=== PATIENT | female | born 1990 ===

== ENCOUNTER 2020-04-04 17:49 | Emergency (ER) | payer OTHER, SELFPAY ==
--- NOTE | 2020-04-04 | XR_ITS ---
EXAMINATION: XR ANKLE, LEFT CLINICAL INFORMATION: Left ankle pain and swelling. COMPARISON: None TECHNIQUE: AP, lateral, and mortise views of the left ankle. FINDINGS: There is moderate lateral malleolar soft tissue swelling. No visible acute fracture, dislocation or subluxation seen. The ankle mortise and subtalar joints are normal. IMPRESSION: Moderate lateral malleolar soft tissue swelling. No visible acute fracture or dislocation seen.
[2020-04-04 18:46] VITALS: BP 170/78; PULSE 79; RESP 18; TEMP 37.2; O2SAT 99; BMI 42.9
--- NOTE | 2020-04-04 19:42 | PC.NURSE ---
Pt refusing ice pack but put right lower leg on pillow. Pt awaiting for further orders.
--- NOTE | 2020-04-04 20:11 | ED.LOWEXIN ---
HPI - Extremity Injury (Lower) General Chief Complaint: Extremity Injury, Lower Stated Complaint: foot inj Time Seen by Provider: 04/04/20 19:45 Source: patient Mode of arrival: ambulatory Limitations: no limitations History of Present Illness HPI Narrative: patient comes in complaining of left ankle sprain. Patient states happened at [facility] while she was walking with her child. Patient decided to come here for evaluation and treatment. MD complaint: ankle injury Onset (ago): hour(s) Related Data Previous Rx's Medication Instructions Recorded ibuprofen 600 mg PO Q8H PRN #10 tab 04/04/20 Allergies Allergy/AdvReac Type Severity Reaction Status Date / Time amoxicillin [AMOXICILLIN] Allergy Intermediate NAUSEA & Unverified 03/03/20 16:45 VOMITING, stomach pain, vomiting, stomach upset topiramate [From TOPAMAX] Allergy Intermediate TREMORS, Unverified 03/03/20 16:45 nausea and vomiting latex [LATEX] Allergy Mild RASH Unverified 03/03/20 16:45 medroxyprogesterone Allergy Mild RASH Unverified 03/03/20 16:45 [From PROVERA] latex Allergy Unknown rash Uncoded 12/30/19 00:00 Review of Systems Review of Systems: Constitutional : No Weight loss, No Fever, No Chills, No Night Sweats, No Fatigue, No Malaise ENT/Mouth : No Hearing loss, No Ear Pain, No Nasal Congestion, No Sinus Pain, No Hoarseness, No sore throat, No Rhinorrhea, No Swallowing Difficulty Eyes: No Eye Pain, No Swelling, No Redness, No Foreign Body, No Discharge, No Vision Changes Cardiovascular : No Chest Pain, No SOB, No Dyspnea on Exertion, No Orthopnea, No Edema, No Palpitations Respiratory : No Cough, No Sputum, No Wheezing, No Smoke Exposure, No Dyspnea Gastrointestinal : No Nausea, No Vomiting, No Diarrhea, No Constipation, No abdominal Pain, No Hematochezia, No Melena Genitourinary : no irregular bleeding, No Dysuria, No Urinary Frequency, No Hematuria, No Urinary Incontinence, No Urgency, No Flank Pain, No Urinary Flow Changes, No Hesitancy Musculoskeletal : Left ankle pain, No Myalgias, mild ankle Swelling Skin : No Skin Lesions, No rash Neuro : No Weakness, No Numbness, No Paresthesias, No Loss of Consciousness, No Dizziness, No Headache Psych : No Anxiety/Panic, No Depression, No SI/HI/AH/VH, No Social Issues, Heme/Lymph: No Bruising, No Bleeding,No Lymphadenopathy Endocrine : No Polyuria, No Polydipsia, No Temperature Intolerance [facility] Past Medical History Medical History Anxiety Depression Fibromyalgia Gastritis Hyperlipemia Hypertension Migraines Rheumatoid arthritis Social History Social History Alcohol intake: unknown Use of substances other than those prescribed or required for medical reasons: No Advance Directives: No Advance Directives Information Provided: Yes Physical Exam Vital Signs: Vital Signs: Vital Signs Temp Pulse Resp BP Pulse Ox 04/04/20 18:46 99.0 F 79 18 170/78 H 99 Body Mass Index 42.9 Appearance: Alert. Oriented X3. No acute distress. Eyes: Pupils equal, round and reactive to light. ENT: Pharynx normal. Neck: Normal inspection. Neck supple. No lymph nodes noted. No crepitus CVS: Normal heart rate and rhythm. Pulses normal. Normal S1 and S2 Respiratory: No respiratory distress. Breath sounds normal. No Wheezing. No rales Abdomen: Soft and nontender. No rigidity. No distention. good BS x4 Skin: Skin warm and dry. Normal skin color. mild swelling to the lateral aspect of the left ankle, pain to palpation over the lateral malleolus. Patient unable to bear weight Extremities: No lower extremity edema. No lower extremity edema. No Lacerations. No Rash Neuro: Oriented X 3. No motor deficit. No sensory deficit. Moving all extermities. No slurred speech. MDM - Extremity Injury (Lower) MDM Narrative Medical decision making narrative: I discussed imaging with the patient, she does not have a fracture. Patient is unable to bear weight, patient was provided with crutches Differential Diagnosis Differential diagnosis: Likely ankle sprain and strain Imaging Data ankle x-ray: Radiologist's impression: Moderate lateral malleolar soft tissue swelling. No visible acute fracture or dislocation seen. Discharge Plan Discharge Clinical Impression: Ankle sprain and strain Patient Disposition: Home, Self-Care Instructions: Ankle Sprain (ED) Additional Instructions: apply ice to your ankle, make sure that it is not in direct contact with the skin. Apply ice 15 minutes every 2 hours while your awake. Please follow-up with your primary care physician tomorrow. If you have any worsening or new symptoms, please return to the emergency room or call 911 Prescriptions: New ibuprofen 600 mg tablet 600 mg PO Q8H PRN (Reason: pain) Qty: 10 RF: 0
[2020-04-04] MEDS: Ibuprofen 600 MG TABLET PO (20:20)
== END 2020-04-04 20:32 | disposition home or self-care (01) ==
PROVIDERS: Emergency Provider Emergency Medicine; PCP Internal Medicine
DX: S93.402A Sprain of unspecified ligament of left ankle, initial encounter (principal); X50.1XXA Overexertion from prolonged static or awkward postures, initial encounter; Y93.01 Activity, walking, marching and hiking; Y92.239 Unspecified place in hospital as the place of occurrence of the external cause; Y99.9 Unspecified external cause status; I10 Essential (primary) hypertension; Z79.899 Other long term (current) drug therapy
CPT/HCPCS: 73610; 99283

== ENCOUNTER → 2020-04-27 09:18 | Outpatient (BNVA) | payer OTHER, SELFPAY | PROVIDERS: PCP Internal Medicine; Visit Provider Advanced Practice Midwife | DX: N90.7 Vulvar cyst (principal); E66.9 Obesity, unspecified; Z68.41 Body mass index [BMI] 40.0-44.9, adult; G43.909 Migraine, unspecified, not intractable, without status migrainosus; Z30.09 Encounter for other general counseling and advice on contraception | CPT/HCPCS: 99212 ==

== ENCOUNTER → 2020-05-03 08:59 | Outpatient (BNVA) | payer OTHER, SELFPAY | PROVIDERS: PCP Internal Medicine; Visit Provider Physician Assistant | DX: Z76.89 Persons encountering health services in other specified circumstances (principal) ==

== ENCOUNTER → 2020-05-05 07:59 | Outpatient (BNVA) | payer OTHER, SELFPAY | PROVIDERS: Visit Provider Surgery | DX: Z76.89 Persons encountering health services in other specified circumstances (principal) ==

== ENCOUNTER 2020-05-09 13:01 | Outpatient (REF) | payer OTHER, SELFPAY ==
[2020-05-11 13:37] LABS: H Pylori Breath Test NOT DETECTED (NOT DETECTED)
== END 2020-05-09 13:02 | disposition home or self-care (01) ==
LOC: HO.LNP 13:01
PROVIDERS: PCP Internal Medicine; Referring Provider Internal Medicine; Visit Provider Physician Assistant
DX: E66.01 Morbid (severe) obesity due to excess calories (principal); I10 Essential (primary) hypertension
CPT/HCPCS: 83013; 99211

== ENCOUNTER 2020-05-10 09:13 | Outpatient (REF) | payer OTHER, SELFPAY | END 2020-05-10 09:14 | disposition home or self-care (01) | LOC: HO.LAB 09:13 | PROVIDERS: Visit Provider Internal Medicine | DX: Z20.828 Contact with and (suspected) exposure to other viral communicable diseases (principal) | CPT/HCPCS: C9803; U0003 ==

== ENCOUNTER → 2020-05-11 11:18 | Outpatient (BNVA) | payer OTHER, SELFPAY | PROVIDERS: PCP Internal Medicine; Referring Provider Internal Medicine; Visit Provider Internal Medicine Endocrinology, Diabetes & Metabolism | DX: Z76.89 Persons encountering health services in other specified circumstances (principal) ==

== ENCOUNTER 2020-05-23 10:44 | Outpatient (REF) | payer OTHER, SELFPAY ==
[2020-05-23 12:50] LABS: Hematocrit 33.7 % (37-47); Hemoglobin 10.5 g/dl (12.0-16.0); Mean Corpuscular HGB Conc 31.2 g/dl (31.0-35.0); Mean Corpuscular Hemoglobin 25.9 pg (27.0-33.0); Mean Corpuscular Volume 83.2 fL (80-98); Mean Platelet Volume 10.1 fL (9.4-12.3); Platelet Count 314 X10*3/uL (160-400); Red Blood Count 4.05 X10*6/uL (4.20-5.50); Red Cell Distribution Width 16.6 % (11.0-16.0); White Blood Count 7.8 X10*3/uL (4.8-10.8)
[2020-05-23 13:24] LABS: Alanine Aminotransferase 15 U/L (0-31); Aspartate Amino Transferase 12 U/L (5-31); Blood Urea Nitrogen 7 mg/dL (9-16); Estimated Glomerular Filt Rate > 60; Uric Acid 3.1 mg/dL (2.4-5.7)
[2020-05-23 14:32] LABS: Creatinine Urine 206.46 mg/dL; Protein/Creatinine Ratio, Ur 0.07 (<0.2); Total Protein Urine Random 15 mg/dL (<12)
== END 2020-05-23 10:45 | disposition home or self-care (01) ==
LOC: HO.LAB 10:44
PROVIDERS: PCP Internal Medicine; Visit Provider Advanced Practice Midwife
DX: E66.9 Obesity, unspecified (principal); I10 Essential (primary) hypertension; Z32.01 Encounter for pregnancy test, result positive; Z86.32 Personal history of gestational diabetes; N91.1 Secondary amenorrhea
CPT/HCPCS: 36415; 81025; 82565; 84156; 84450; 84460; 84520; 84550; 85027; 99212

== ENCOUNTER 2020-05-24 09:36 | Outpatient (REF) | payer OTHER, SELFPAY ==
[2020-05-24 12:35] LABS: Glucose 1 Hour PP 50gm Dose 191 mg/dL (60-140)
== END 2020-05-24 09:37 | disposition home or self-care (01) ==
LOC: HO.LAB 09:36
PROVIDERS: PCP Internal Medicine; Visit Provider Advanced Practice Midwife
DX: Z13.89 Encounter for screening for other disorder (principal)

== ENCOUNTER 2020-05-27 09:25 | Outpatient (REF) | payer OTHER, SELFPAY ==
--- NOTE | 2020-05-27 09:30 | US_ITS ---
EXAMINATION: OBSTETRICAL ULTRASOUND, FIRST TRIMESTER HISTORY: 29-year-old with the uncertain LMP Viability LMP: Unknown COMPARISON: 09/03/2019 TECHNIQUE: Real time transabdominal imaging with color and M-mode Doppler. Transvaginal ultrasound was performed with an endovaginal probe for better resolution. FINDINGS: A single, live IUP CRL of 16.8 mm c/w 8.1wks is noted. Heart Rate: 167 beats per minute. Normal yolk sac. Both maternal ovaries are seen and appear normal. GESTATIONAL AGE: 1. GA from LMP: 12.2 wks 2. GA from AUA: 8.1 wks ESTIMATED DATE OF DELIVERY: 1. GLENN from LMP: 12/07/2020 2. GLENN from AUA: 01/05/2021 US/US OB <= 14 weeks fetus IMPRESSION: 1. A single live IUP 2. CRL consistent with 8.1 weeks, best GLENN 01/05/2021 3. Normal ovaries Thank you very much for this referral.
--- NOTE | 2020-05-27 09:30 | US_ITS ---
EXAMINATION: OBSTETRICAL ULTRASOUND, FIRST TRIMESTER HISTORY: 29-year-old with the uncertain LMP Viability LMP: Unknown COMPARISON: 09/03/2019 TECHNIQUE: Real time transabdominal imaging with color and M-mode Doppler. Transvaginal ultrasound was performed with an endovaginal probe for better resolution. FINDINGS: A single, live IUP CRL of 16.8 mm c/w 8.1wks is noted. Heart Rate: 167 beats per minute. Normal yolk sac. Both maternal ovaries are seen and appear normal. GESTATIONAL AGE: 1. GA from LMP: 12.2 wks 2. GA from AUA: 8.1 wks ESTIMATED DATE OF DELIVERY: 1. GLENN from LMP: 12/07/2020 2. GLENN from AUA: 01/05/2021 US/US OB transvaginal IMPRESSION: 1. A single live IUP 2. CRL consistent with 8.1 weeks, best GLENN 01/05/2021 3. Normal ovaries Thank you very much for this referral.
== END 2020-05-27 09:26 | disposition home or self-care (01) ==
LOC: HO.US 09:25
PROVIDERS: Visit Provider Advanced Practice Midwife
DX: O26.891 Other specified pregnancy related conditions, first trimester (principal); N91.1 Secondary amenorrhea; Z3A.08 8 weeks gestation of pregnancy
CPT/HCPCS: 76801; 76817

== ENCOUNTER 2020-05-30 09:59 | Outpatient (REF) | payer OTHER, SELFPAY ==
[2020-05-30 11:08] LABS: Glucose Fasting 86 mg/dL (60-99)
== END 2020-05-30 10:00 | disposition home or self-care (01) ==
LOC: HO.LAB 09:59
PROVIDERS: PCP Internal Medicine; Visit Provider Advanced Practice Midwife
DX: Z34.80 Encounter for supervision of other normal pregnancy, unspecified trimester (principal)
CPT/HCPCS: 82951

== ENCOUNTER → 2020-06-08 09:27 | Outpatient (BNVA) | payer OTHER, SELFPAY | PROVIDERS: PCP Internal Medicine; Visit Provider Advanced Practice Midwife | DX: O24.419 Gestational diabetes mellitus in pregnancy, unspecified control (principal); O09.891 Supervision of other high risk pregnancies, first trimester; O99.211 Obesity complicating pregnancy, first trimester; E66.01 Morbid (severe) obesity due to excess calories; O16.1 Unspecified maternal hypertension, first trimester; Z3A.09 9 weeks gestation of pregnancy | CPT/HCPCS: 99212 ==

== ENCOUNTER → 2020-06-14 14:31 | Outpatient (BNVA) | payer OTHER, SELFPAY | PROVIDERS: PCP Internal Medicine; Visit Provider Obstetrics & Gynecology | DX: O09.899 Supervision of other high risk pregnancies, unspecified trimester (principal); Z87.891 Personal history of nicotine dependence | CPT/HCPCS: 81003; 99212 ==

== ENCOUNTER 2020-06-16 08:51 | Outpatient (REF) | payer OTHER, SELFPAY | END 2020-06-16 08:52 | disposition home or self-care (01) | LOC: HO.LAB 08:51 | PROVIDERS: Visit Provider Internal Medicine | DX: Z20.828 Contact with and (suspected) exposure to other viral communicable diseases (principal) | CPT/HCPCS: C9803; U0003 ==

== ENCOUNTER → 2020-06-20 08:59 | Outpatient (BNVA) | payer OTHER, SELFPAY | PROVIDERS: PCP Internal Medicine; Visit Provider Advanced Practice Midwife | DX: O99.320 Drug use complicating pregnancy, unspecified trimester (principal); F12.90 Cannabis use, unspecified, uncomplicated; O16.9 Unspecified maternal hypertension, unspecified trimester; O99.210 Obesity complicating pregnancy, unspecified trimester; Z3A.00 Weeks of gestation of pregnancy not specified | CPT/HCPCS: 99212 ==

== ENCOUNTER 2020-06-21 13:07 | Outpatient (REF) | payer OTHER, SELFPAY | END 2020-06-21 13:08 | disposition home or self-care (01) | LOC: HO.LAB 13:07 | PROVIDERS: Visit Provider Internal Medicine | DX: Z20.822 Contact with and (suspected) exposure to COVID-19 (principal) | CPT/HCPCS: 36415; C9803; U0003 ==

== ENCOUNTER → 2020-06-27 08:45 | Outpatient (BNVA) | payer OTHER, SELFPAY | PROVIDERS: PCP Internal Medicine; Visit Provider Advanced Practice Midwife | DX: O09.899 Supervision of other high risk pregnancies, unspecified trimester (principal); O24.419 Gestational diabetes mellitus in pregnancy, unspecified control; O09.291 Supervision of pregnancy with other poor reproductive or obstetric history, first trimester; E66.9 Obesity, unspecified; Z13.31 Encounter for screening for depression | CPT/HCPCS: 81003; 90686; 99212 ==

== ENCOUNTER → 2020-06-29 09:16 | Outpatient (BNVA) | payer OTHER, SELFPAY | PROVIDERS: PCP Internal Medicine; Visit Provider Internal Medicine Endocrinology, Diabetes & Metabolism | DX: Z76.89 Persons encountering health services in other specified circumstances (principal) ==

== ENCOUNTER → 2020-07-05 11:07 | Outpatient (BNVA) | payer OTHER, SELFPAY | PROVIDERS: PCP Internal Medicine; Visit Provider Dietitian, Registered ==

== ENCOUNTER 2020-07-06 10:10 | Outpatient (REF) | payer OTHER, SELFPAY ==
[2020-07-06 11:34] LABS: MANUAL DIFF FLAG NO
[2020-07-06 11:46] LABS: Basophils Absolute Auto 0.1 X10*3/uL (0.0-0.2); Basophils Percent Auto 0.4 % (0-2); Eosinophils Absolute Auto 0.1 X10*3/uL (0.0-0.4); Hematocrit 33.1 % (37-47); Hemoglobin 10.7 g/dl (12.0-16.0); Imm Gran Abs Auto 0.08 X10*3/uL (0.00-0.03); Imm Gran Pct Auto 0.7 % (0.0-0.4); Lymphocytes Absolute Auto 2.1 X10*3/uL (1.2-4.9); Mean Corpuscular HGB Conc 32.3 g/dl (31.0-35.0); Mean Corpuscular Hemoglobin 26.8 pg (27.0-33.0); Mean Platelet Volume 10.8 fL (9.4-12.3); Monocytes Absolute Auto 0.9 X10*3/uL (0.1-1.2); Monocytes Percent Auto 8.2 % (2-11); Neutrophils Percent Auto 70.7 % (45-73); Platelet Count 312 X10*3/uL (160-400); Red Blood Count 3.99 X10*6/uL (4.20-5.50); Red Cell Distribution Width 15.8 % (11.0-16.0); White Blood Count 11.3 X10*3/uL (4.8-10.8)
[2020-07-06 12:04] LABS: Estimated Average Glucose 100 mg/dL; Hemoglobin A1c % 5.1 %
[2020-07-06 12:15] LABS: Alanine Aminotransferase 16 U/L (0-31); Albumin Level 3.7 g/dL (3.5-5.0); Alkaline Phosphatase 54 U/L (39-117); Anion Gap 12 (12-20); Aspartate Amino Transferase 12 U/L (5-31); Bilirubin Total < 0.2 mg/dL (0.0-1.0); Blood Urea Nitrogen 5 mg/dL (9-16); Calcium 8.6 mg/dL (8.4-10.2); Carbon Dioxide 22 mmol/L (22-29); Chloride 108 mmol/L (96-108); Cholesterol 157 mg/dL; Estimated Glomerular Filt Rate > 60; Glucose Fasting 78 mg/dL (60-99); HDL Cholesterol 48 mg/dL; LDL Cholesterol Calculated 87 mg/dl; Potassium 4.1 mmol/l (3.3-5.1); Sodium 138 mmol/L (135-145); Total Protein 6.5 g/dL (6.5-8.0); Triglycerides 114 mg/dL
[2020-07-06 12:39] LABS: Syphilis Screen Nonreactive (Nonreactive)
[2020-07-06 13:08] LABS: Amphetamine Screen Urine Not Detected (Not Detect); Barbiturates, Urine Not Detected (Not Detect); Benzodiazepines Screen Urine Not Detected (Not Detect); Cannabinoid Screen Urine POSITIVE (Not Detect); Cocaine Screen Urine Not Detected (Not Detect); Opiate Screen Urine Not Detected (Not Detect); Phencyclidine Screen Urine Not Detected (Not Detect)
[2020-07-07 09:06] LABS: HBsAGNum1 0.24 S/CO (0.00-0.99); HIV AB/AG Nonreactive (Nonreactive); HIV Num 1 0.06 S/CO (0.00-0.99); Hepatitis B Surface Antigen Negative (Negative); ~HepC Num1 0.09 S/CO (0.00-0.79); ~Hepatitis C Antibody Nonreactive (Nonreactive)
[2020-07-07 09:27] LABS: Varicella IgG Antibody <135.00 index
[2020-07-07 11:02] LABS: DHEA Sulfate 110 mcg/dL (18-391)
[2020-07-07 22:02] LABS: Sex Hormone Binding Globulin 242 nmol/L (17-124)
[2020-07-15 10:07] LABS: Testosterone, Free 14.6 pg/mL (0.1-6.4); Testosterone, Total 275 ng/dL (2-45)
== END 2020-07-06 10:11 | disposition home or self-care (01) ==
LOC: HO.LAB 10:10
PROVIDERS: Absent Provider Advanced Practice Midwife; PCP Internal Medicine; Referring Provider Internal Medicine Endocrinology, Diabetes & Metabolism; Visit Provider Obstetrics & Gynecology
DX: E28.2 Polycystic ovarian syndrome (principal); E78.5 Hyperlipidemia, unspecified; Z86.32 Personal history of gestational diabetes
CPT/HCPCS: 80053; 80061; 80307; 82627; 83036; 84270; 84402; 84403; 85025; 85027; 86762; 86780; 86787; 86803; 86850; 86900; 86901; 87086; 87340; 87389; 99212

== ENCOUNTER 2020-07-11 08:11 | Outpatient (REF) | payer OTHER, SELFPAY | END 2020-07-11 08:12 | disposition home or self-care (01) | LOC: HO.LAB 08:11 | PROVIDERS: PCP Internal Medicine; Referring Provider Internal Medicine; Visit Provider Internal Medicine | DX: Z20.822 Contact with and (suspected) exposure to COVID-19 (principal) | CPT/HCPCS: 36415; C9803; U0003 ==

== ENCOUNTER 2020-07-18 14:46 | Emergency (ER) | payer OTHER, SELFPAY ==
[2020-07-18 14:54] VITALS: BP 120/63; PULSE 73; RESP 18; TEMP 36.4; O2SAT 99; BMI 43.6
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
[2020-07-18] MEDS: Acetaminophen 325 MG TABLET 650 MG PO (15:38)
== END 2020-07-18 16:27 | disposition home or self-care (01) ==
PROVIDERS: Emergency Provider Emergency Medicine; PCP Internal Medicine
DX: O9A.212 Injury, poisoning and certain other consequences of external causes complicating pregnancy, second trimester (principal); S39.012A Strain of muscle, fascia and tendon of lower back, initial encounter; S80.12XA Contusion of left lower leg, initial encounter; V47.5XXA Car driver injured in collision with fixed or stationary object in traffic accident, initial encounter; Y93.89 Activity, other specified; Y92.414 Local residential or business street as the place of occurrence of the external cause; Y99.9 Unspecified external cause status; Z3A.15 15 weeks gestation of pregnancy
CPT/HCPCS: 71101; 73590; 99283

== ENCOUNTER → 2020-07-19 14:42 | Outpatient (BNVA) | payer OTHER, SELFPAY | PROVIDERS: PCP Internal Medicine; Visit Provider Dietitian, Registered ==

== ENCOUNTER → 2020-07-20 10:52 | Outpatient (BNVA) | payer OTHER, SELFPAY | PROVIDERS: PCP Internal Medicine; Visit Provider Obstetrics & Gynecology | DX: O99.340 Other mental disorders complicating pregnancy, unspecified trimester (principal); F32.9 Major depressive disorder, single episode, unspecified | CPT/HCPCS: 81003; 99212 ==

== ENCOUNTER → 2020-07-22 12:42 | Outpatient (BNVA) | payer OTHER, SELFPAY | PROVIDERS: PCP Internal Medicine; Visit Provider Nurse Practitioner ==

== ENCOUNTER 2020-07-23 07:58 | Emergency (ER) | payer OTHER, SELFPAY ==
[2020-07-23 07:59] VITALS: BP 157/71; PULSE 67; RESP 18; TEMP 36.6; O2SAT 99; BMI 41.8
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
--- NOTE | 2020-07-23 09:36 | PC.NURSE ---
heart tones- 143bpm
[2020-07-23] MEDS: 0.9 % Sodium Chloride 1,000 ML 999 ML IVCONT (09:50)
[2020-07-23] MEDS: Metoclopramide HCl 10 MG/2 ML VIAL IVPUSH (09:50)
[2020-07-23] MEDS: diphenhydrAMINE HCL 50 MG/ML VIAL 25 MG IVPUSH (09:50)
[2020-07-23 09:59] LABS: MANUAL DIFF FLAG NO
[2020-07-23 10:02] LABS: Basophils Percent Auto 0.3 % (0-2); Eosinophils Absolute Auto 0.1 X10*3/uL (0.0-0.4); Eosinophils Percent Auto 0.6 % (0-4); Hematocrit 32.8 % (37-47); Hemoglobin 10.6 g/dl (12.0-16.0); Imm Gran Abs Auto 0.07 X10*3/uL (0.00-0.03); Imm Gran Pct Auto 0.6 % (0.0-0.4); Lymphocytes Absolute Auto 2.3 X10*3/uL (1.2-4.9); Lymphocytes Percent Auto 19.2 % (20-40); Mean Corpuscular HGB Conc 32.3 g/dl (31.0-35.0); Mean Corpuscular Hemoglobin 27.2 pg (27.0-33.0); Mean Corpuscular Volume 84.1 fL (80-98); Mean Platelet Volume 10.7 fL (9.4-12.3); Monocytes Absolute Auto 0.9 X10*3/uL (0.1-1.2); Monocytes Percent Auto 7.5 % (2-11); Neutrophils Absolute Auto 8.5 X10*3/uL (2.0-8.3); Neutrophils Percent Auto 71.8 % (45-73); Platelet Count 285 X10*3/uL (160-400); Red Cell Distribution Width 15.6 % (11.0-16.0); White Blood Count 11.9 X10*3/uL (4.8-10.8)
[2020-07-23 10:14] LABS: Glucose Urine UA NEG (NEG); Leukocyte Esterase Urine NEG (NEG); Nitrite Urine NEG (NEG); PH 7.5 (5.0-8.0); Specific Gravity - Urine 1.015 (1.005-1.025); Urine Blood NEG (NEG); Urine Ketones 15 MG/DL (NEG); Urine Protein NEG (NEG-TRACE)
[2020-07-23 10:19] LABS: Appearance Urine HAZY; Color Urine YELLOW
[2020-07-23 10:30] LABS: Alanine Aminotransferase 22 U/L (0-31); Albumin Level 3.7 g/dL (3.5-5.0); Alkaline Phosphatase 63 U/L (39-117); Anion Gap 14 (12-20); Aspartate Amino Transferase 16 U/L (5-31); Bilirubin Direct < 0.2 mg/dL (0.0-0.5); Bilirubin Total 0.2 mg/dL (0.0-1.0); Blood Urea Nitrogen 5 mg/dL (9-16); Calcium 8.8 mg/dL (8.4-10.2); Carbon Dioxide 22 mmol/L (22-29); Chloride 107 mmol/L (96-108); Creatinine Clr Calc Pharmacy 172.1; Estimated Glomerular Filt Rate > 60; Glucose Random 78 mg/dL (60-115); Potassium 4.4 mmol/L (3.3-5.1); Sodium 139 mmol/L (135-145); Total Protein 6.7 g/dL (6.5-8.0)
[2020-07-23 11:07] VITALS: BP 157/71; PULSE 67
[2020-07-23] MEDS: Labetalol HCL 100 MG TABLET PO (11:07)
[2020-07-23 12:00] VITALS: BP 128/63; PULSE 66; RESP 20
== END 2020-07-23 13:38 | disposition home or self-care (01) ==
PROVIDERS: Emergency Provider Emergency Medicine; PCP Internal Medicine
DX: O26.892 Other specified pregnancy related conditions, second trimester (principal); G43.909 Migraine, unspecified, not intractable, without status migrainosus; O21.8 Other vomiting complicating pregnancy; Z3A.16 16 weeks gestation of pregnancy
CPT/HCPCS: 36415; 80048; 80076; 81003; 83735; 85025; 96361; 96374; 96375; 99284; J1200; J2765

== ENCOUNTER → 2020-07-27 11:40 | Outpatient (BNVA) | payer OTHER, SELFPAY | PROVIDERS: PCP Internal Medicine; Visit Provider Obstetrics & Gynecology | DX: O09.899 Supervision of other high risk pregnancies, unspecified trimester (principal) | CPT/HCPCS: 99212 ==

== ENCOUNTER → 2020-08-04 14:03 | Outpatient (BNVA) | payer OTHER, SELFPAY | PROVIDERS: PCP Internal Medicine; Visit Provider Dietitian, Registered ==

== ENCOUNTER 2020-08-18 14:03 | Outpatient (REF) | payer OTHER, SELFPAY ==
--- NOTE | ~2020-08-18 | US_ITS ---
EXAMINATION: US VENOUS ULTRASOUND WITH DOPPLER LOWER EXTREMITY, LEFT CLINICAL INFORMATION: Pain and swelling. COMPARISON: None TECHNIQUE: Ultrasound of the deep veins is performed from the hip to the calf with compression sonography and color and pulse Doppler assessment. Spectral analysis with color-flow imaging is performed. FINDINGS: There is normal venous compression and respiratory variation and augmented flow. The visualized common femoral vein, superficial femoral vein, profunda femoral vein, popliteal vein, and the trifurcation region shows no evidence of deep venous thrombosis. There is no significant popliteal fossa cyst. Imaging to the lump anterior left lopez reveals a complex echogenic area likely hematoma measuring 5.7 x 1.3 x 3.5 cm. US/US venous duplex LE LT IMPRESSION: No DVT demonstrated in the left lower extremity. Complex 5.7 cm lump left anterior lopez likely hematoma.
== END 2020-08-18 14:04 | disposition home or self-care (01) ==
LOC: HO.HMGCX 14:03
PROVIDERS: PCP Nurse Practitioner Family; Visit Provider Nurse Practitioner Family
DX: I82.409 Acute embolism and thrombosis of unspecified deep veins of unspecified lower extremity (principal)
CPT/HCPCS: 93971

== ENCOUNTER 2020-08-26 11:23 | Outpatient (REF) | payer OTHER, SELFPAY ==
--- NOTE | ~2020-08-26 | US_ITS ---
EXAMINATION: US OBSTETRICAL CLINICAL INFORMATION: 29-year-old at 21.1 weeks of gestation Suspected anomaly COMPARISON: 05/27/2020 TECHNIQUE: Real-time transabdominal ultrasound was performed using C1-5 megahertz transducer. FINDINGS: A single, active, fetus is seen in breech presentation. The placenta is anterior without previa, and the amniotic fluid volume is wnl. MEASUREMENTS: 1. Biparietal Diameter: 4.7 cm; 20.3 wks 2. Occipital Frontal Diameter: 6.5 cm 3. Head Circumference: 18.6 cm; 21.0 wks 4. Abdominal Circumference: 17.5 cm; 22.3 wks 5. Femur Length: 3.3 cm; 20.1 wks 6. Humerus Length: 3.2 cm; 20.6 wks 7. Tibia Length: 3.0 cm; 21.0 wks 8. Ulna Length: 2.7 cm; 20.0 wks 9. Lateral ventricle: 0.7 cm 10. Cerebellum: 2.3 cm; 22.3 wks 11. Cisterna Magna: 0.64 cm 12. Nuchal Fold: N/A mm 13. Heart Rate: 160 beats per minute Rt ovary: normal Lt ovary: normal Cervical length 3.9 cm on T/A. GESTATIONAL AGE: 1. Established GA: 21.1 wks 2. GA from [facility]: 21.0 wks ESTIMATED DATE OF DELIVERY: 1. Established GLENN: 01/05/2021 2. GLENN from [facility]: 01/06/2021 ANATOMY: The visualized anatomy includes but not limited to: 1. Cranium: Normal 2. Intracranial anatomy: cavum septum pellucidi, lateral ventricles, choroid plexus, cerebellum, posterior fossa, third and fourth ventricles. 3. face: orbits, lip/palate, profile, nasal bone 4. Heart: four-chamber view of the heart, ventricular septum, foramen ovale, pulmonary vein, left and right outflow tracts, three-vessel view, 3 vessel trachea view, aortic and ductal arches, situs.. 5. Diaphragm: Normal 6. Abdominal wall: Normal 7. Cord Insertion: Normal 8. Spine: Cervical, thoracic, lumbar, sacral. 9. Stomach: Normal size and shape 10. Right Kidney: Normal 11. Left Kidney: Normal 12. 3 vessel cord: Normal 13. Upper extremity: Open hands, fifth digit. 14. Lower extremity: Tibia, fibula, bilateral feet. 15. Bladder: Normal 16. Genitalia: Female, patient aware US/US OB /maternal detail IMPRESSION: 1. Single, living, intrauterine with appropriate biometry. 2. Normal survey DISCUSSION: I reviewed today's ultrasound findings. We discussed the limitations of ultrasound in diagnosing aneuploidy and other congenital abnormalities. I reviewed the differences between screening test and diagnostic test. Amniocentesis was discussed and declined. She was informed that the baseline incidence of congenital abnormalities is approximately 3-5%. Not all these conditions are diagnosable in utero. RECOMMENDATIONS: No further ultrasound has been scheduled. Thank you for allowing me to participate in her care. Total time 20 minutes. The time spent was devoted to counseling the patient about the disease and diagnosis, coordinating care including reviewing her records, pertinent lab data and studies, as well as discussing diagnostic evaluation and workup, plan therapeutic interventions and future disposition of care. This includes any additional research needed to obtain further information in formulating the plan of care of this patient. This note was generated with a voice recognition program. Please excuse any errors which may have been overlooked during my review of this note. Sometimes these errors may affect the content or meaning of a given sentence.
== END 2020-08-26 11:24 | disposition home or self-care (01) ==
LOC: HO.US 11:23
PROVIDERS: PCP Internal Medicine; Visit Provider Obstetrics & Gynecology
DX: O35.9XX0 Maternal care for (suspected) fetal abnormality and damage, unspecified, not applicable or unspecified (principal); Z3A.21 21 weeks gestation of pregnancy
CPT/HCPCS: 76811

== ENCOUNTER → 2020-09-15 14:03 | Outpatient (BNVA) | payer OTHER, SELFPAY | PROVIDERS: PCP Internal Medicine; Visit Provider Dietitian, Registered | DX: Z13.89 Encounter for screening for other disorder (principal) | CPT/HCPCS: 97803 ==

== ENCOUNTER → 2020-10-17 10:54 | Outpatient (BNVA) | payer OTHER, SELFPAY | PROVIDERS: PCP Internal Medicine; Visit Provider Dietitian, Registered | DX: Z86.32 Personal history of gestational diabetes (principal) | CPT/HCPCS: 97803 ==

== ENCOUNTER → 2020-11-30 14:11 | Outpatient (BNVA) | payer OTHER, SELFPAY | PROVIDERS: PCP Internal Medicine; Visit Provider Internal Medicine Endocrinology, Diabetes & Metabolism | DX: O24.410 Gestational diabetes mellitus in pregnancy, diet controlled (principal); O99.213 Obesity complicating pregnancy, third trimester; E66.01 Morbid (severe) obesity due to excess calories; E28.2 Polycystic ovarian syndrome; Z3A.34 34 weeks gestation of pregnancy | CPT/HCPCS: 99212 ==

== ENCOUNTER 2020-12-01 13:52 | Outpatient (REF) | payer OTHER, SELFPAY ==
[2020-12-01 14:45] LABS: Estimated Average Glucose 100 mg/dL; Hemoglobin A1c % 5.1 %
[2020-12-01 14:53] LABS: Alanine Aminotransferase 31 U/L (0-31); Albumin Level 3.3 g/dL (3.5-5.0); Alkaline Phosphatase 211 U/L (39-117); Anion Gap 12 (12-20); Aspartate Amino Transferase 23 U/L (5-31); Bilirubin Total 0.3 mg/dL (0.0-1.0); Blood Urea Nitrogen 6 mg/dL (9-16); Calcium 8.7 mg/dL (8.4-10.2); Carbon Dioxide 22 mmol/L (22-29); Chloride 109 mmol/L (96-108); Estimated Glomerular Filt Rate > 60; Glucose Random 115 mg/dL (60-115); Potassium 4.3 mmol/L (3.3-5.1); Sodium 139 mmol/L (135-145); Total Protein 6.2 g/dL (6.5-8.0)
[2020-12-01 15:07] LABS: Creatinine Urine 151.63 mg/dL; Microalbum/Creatinine Ratio Ur 11.8 ug/mg cr
[2020-12-01 15:14] LABS: Thyroid Stimulating Hormone 1.15 uIU/mL (0.32-4.0)
[2020-12-01 15:17] LABS: Vitamin B12 377 pg/mL (200-900)
== END 2020-12-01 13:53 | disposition home or self-care (01) ==
LOC: HO.LAB 13:52
PROVIDERS: PCP Internal Medicine; Visit Provider Internal Medicine Endocrinology, Diabetes & Metabolism
DX: O24.410 Gestational diabetes mellitus in pregnancy, diet controlled (principal); O99.280 Endocrine, nutritional and metabolic diseases complicating pregnancy, unspecified trimester; E28.2 Polycystic ovarian syndrome; Z3A.00 Weeks of gestation of pregnancy not specified
CPT/HCPCS: 36415; 80053; 82043; 82607; 83036; 84439; 84443

== ENCOUNTER → 2020-12-14 11:56 | Outpatient (BNVA) | payer OTHER, SELFPAY | PROVIDERS: PCP Internal Medicine; Visit Provider Internal Medicine Endocrinology, Diabetes & Metabolism ==

== ENCOUNTER 2020-12-21 09:44 | Outpatient (REF) | payer OTHER, SELFPAY ==
--- NOTE | 2020-12-21 09:47 | EMG_ITS ---
This is a 30-year-old woman, who delivered a daughter 2 days ago, has 8-month history of bilateral hand pain and numbness constantly. She had similar symptoms a few years ago, which had resolved. MEDICATIONS: She is on no medications. PHYSICAL EXAMINATION: On examination, she is alert and oriented with normal intellectual functions. Cranial nerves are normal. No Tinel or Phalen sign. She has nocturnal symptoms. IMPRESSION: Carpal tunnel syndrome. Nerve conduction EMG study: Moderately severe carpal tunnel syndrome on the right, moderate carpal tunnel syndrome on the left. Normal EMG of the right C5-T1 innervated muscles. MD YANNA Green/AURELIA / [id number]
== END 2020-12-21 09:45 | disposition home or self-care (01) ==
LOC: HO.NEURO 09:44
PROVIDERS: PCP Internal Medicine; Visit Provider Internal Medicine
DX: M25.531 Pain in right wrist (principal); M25.532 Pain in left wrist
CPT/HCPCS: 95886; 95913

== ENCOUNTER 2020-12-22 12:31 | Outpatient (REF) | payer OTHER, SELFPAY ==
[2020-12-22 14:17] LABS: Glucose Urine UA NEG (NEG); Leukocyte Esterase Urine 2+ (NEG); Nitrite Urine NEG (NEG); Specific Gravity - Urine 1.015 (1.005-1.025); UACC Culture Trigger YES; Urine Blood 3+ (NEG); Urine Ketones NEG (NEG); Urine Protein TRACE MG/DL (NEG-TRACE)
[2020-12-22 14:20] LABS: Appearance Urine HAZY; Color Urine YELLOW
[2020-12-22 14:33] LABS: Squamous Epithelial Cell Urine 2+ /LPF
[2020-12-22 14:34] LABS: Bacteria Urine 3+ /LPF
== END 2020-12-22 12:32 | disposition home or self-care (01) ==
LOC: HO.LAB 12:31
PROVIDERS: PCP Internal Medicine; Visit Provider Internal Medicine
DX: R30.0 Dysuria (principal)
CPT/HCPCS: 81001; 81003; 87086; 87088; 87186

== ENCOUNTER 2021-01-03 12:18 | Outpatient (REF) | payer OTHER, SELFPAY ==
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
== END 2021-01-03 12:19 | disposition home or self-care (01) ==
LOC: HO.US 12:18
PROVIDERS: PCP Internal Medicine; Visit Provider Physician Assistant
DX: S80.10XA Contusion of unspecified lower leg, initial encounter (principal); X58.XXXA Exposure to other specified factors, initial encounter; Y93.9 Activity, unspecified; Y92.9 Unspecified place or not applicable; Y99.9 Unspecified external cause status
CPT/HCPCS: 93971

== ENCOUNTER 2021-02-03 10:30 | Outpatient (REF) | payer OTHER, SELFPAY ==
[2021-02-03 11:13] LABS: MANUAL DIFF FLAG NO
[2021-02-03 11:29] LABS: Glucose Urine UA NEG (NEG); Leukocyte Esterase Urine NEG (NEG); Nitrite Urine NEG (NEG); PH 7.5 (5.0-8.0); Urine Blood NEG (NEG); Urine Ketones NEG (NEG); Urine Protein NEG (NEG-TRACE)
[2021-02-03 11:31] LABS: Alanine Aminotransferase 18 U/L (0-31); Albumin Level 4.1 g/dL (3.5-5.0); Alkaline Phosphatase 112 U/L (39-117); Anion Gap 10 (12-20); Aspartate Amino Transferase 15 U/L (5-31); Bilirubin Total 0.5 mg/dL (0.0-1.0); Blood Urea Nitrogen 10 mg/dL (9-16); Calcium 9.3 mg/dL (8.4-10.2); Carbon Dioxide 25 mmol/L (22-29); Chloride 108 mmol/L (96-108); Cholesterol 145 mg/dL; Estimated Glomerular Filt Rate > 60; Glucose Fasting 87 mg/dL (60-99); HDL Cholesterol 35 mg/dL; LDL Cholesterol Calculated 98 mg/dl; Potassium 4.8 mmol/L (3.3-5.1); Sodium 138 mmol/L (135-145); Total Protein 6.9 g/dL (6.5-8.0); Triglycerides 62 mg/dL
[2021-02-03 11:34] LABS: Appearance Urine CLEAR; Color Urine STRAW
[2021-02-03 11:38] LABS: Basophils Percent Auto 0.6 % (0-2); Eosinophils Absolute Auto 0.1 X10*3/uL (0.0-0.4); Eosinophils Percent Auto 2.1 % (0-4); Hematocrit 30.1 % (37-47); Hemoglobin 9.2 g/dl (12.0-16.0); Imm Gran Abs Auto 0.02 X10*3/uL (0.00-0.03); Imm Gran Pct Auto 0.3 % (0.0-0.4); Lymphocytes Absolute Auto 1.9 X10*3/uL (1.2-4.9); Lymphocytes Percent Auto 29.8 % (20-40); Mean Corpuscular HGB Conc 30.6 g/dl (31.0-35.0); Mean Corpuscular Hemoglobin 24.3 pg (27.0-33.0); Mean Corpuscular Volume 79.4 fL (80-98); Mean Platelet Volume 11.4 fL (9.4-12.3); Monocytes Absolute Auto 0.5 X10*3/uL (0.1-1.2); Monocytes Percent Auto 8.7 % (2-11); Neutrophils Absolute Auto 3.7 X10*3/uL (2.0-8.3); Neutrophils Percent Auto 58.5 % (45-73); Platelet Count 410 X10*3/uL (160-400); Red Blood Count 3.79 X10*6/uL (4.20-5.50); Red Cell Distribution Width 15.2 % (11.0-16.0); White Blood Count 6.2 X10*3/uL (4.8-10.8)
[2021-02-03 11:53] LABS: TSH reflex Free T4 1.38 uIU/mL (0.32-4.0); Vitamin D 25-OH Total 22.4 ng/mL (>30)
[2021-02-03 13:19] LABS: Erythrocyte Sedimentation Rate 38 MM/HR (0-20)
== END 2021-02-03 10:31 | disposition home or self-care (01) ==
LOC: HO.LAB 10:30
PROVIDERS: PCP Internal Medicine; Visit Provider Internal Medicine
DX: E78.00 Pure hypercholesterolemia, unspecified (principal); G56.03 Carpal tunnel syndrome, bilateral upper limbs; M54.5 Low back pain; M79.7 Fibromyalgia; E55.9 Vitamin D deficiency, unspecified; I10 Essential (primary) hypertension
CPT/HCPCS: 36415; 80053; 80061; 81003; 82306; 84443; 85025; 85652

== ENCOUNTER → 2021-02-27 13:01 | Outpatient (BNVA) | payer OTHER, SELFPAY | PROVIDERS: Visit Provider Orthopaedic Surgery | DX: G56.03 Carpal tunnel syndrome, bilateral upper limbs (principal); M65.311 Trigger thumb, right thumb; M65.312 Trigger thumb, left thumb; M79.7 Fibromyalgia; R73.03 Prediabetes; E66.01 Morbid (severe) obesity due to excess calories; F17.210 Nicotine dependence, cigarettes, uncomplicated; Z88.0 Allergy status to penicillin; Z88.8 Allergy status to other drugs, medicaments and biological substances; Z91.040 Latex allergy status; Z91.011 Allergy to milk products | CPT/HCPCS: 99202 ==

== ENCOUNTER 2021-03-09 12:23 | Outpatient (REF) | payer OTHER, SELFPAY ==
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
== END 2021-03-09 12:24 | disposition home or self-care (01) ==
LOC: HO.US 12:23
PROVIDERS: PCP Internal Medicine; Visit Provider Internal Medicine
DX: S80.10XA Contusion of unspecified lower leg, initial encounter (principal)
CPT/HCPCS: 76882

== ENCOUNTER → 2021-04-17 13:19 | Outpatient (BNVA) | payer OTHER, SELFPAY | PROVIDERS: PCP Internal Medicine; Visit Provider Nurse Practitioner Family | DX: M19.90 Unspecified osteoarthritis, unspecified site (principal); M54.59 Other low back pain | CPT/HCPCS: 99212 ==

== ENCOUNTER 2021-04-18 18:36 | Outpatient (REF) | payer OTHER, SELFPAY ==
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
== END 2021-04-18 18:37 | disposition home or self-care (01) ==
LOC: HO.MRI 18:36
PROVIDERS: Visit Provider Physician Assistant
DX: S80.12XA Contusion of left lower leg, initial encounter (principal); M79.662 Pain in left lower leg
CPT/HCPCS: 73718

== ENCOUNTER 2021-04-19 09:36 | Outpatient (REF) | payer OTHER, SELFPAY ==
--- NOTE | ~2021-04-19 | XR_ITS ---
EXAMINATION: XR LUMBOSACRAL SPINE CLINICAL INFORMATION: Lower back pain COMPARISON: 10/15/2017 TECHNIQUE: Three views of the lumbosacral spine. FINDINGS: No fracture or subluxation. Vertebral body height and alignment maintained. The sacroiliac joints are symmetric. The visualized sacrum is intact. Normal bowel gas pattern. XR/XR lumbar spine 2-3V IMPRESSION: Unremarkable appearance of the lumbar spine.
== END 2021-04-19 09:37 | disposition home or self-care (01) ==
LOC: HO.XRAY 09:36
PROVIDERS: PCP Internal Medicine; Visit Provider Nurse Practitioner Family
DX: M54.50 Low back pain, unspecified (principal)
CPT/HCPCS: 72100

== ENCOUNTER → 2021-05-01 11:28 | Outpatient (BNVA) | payer OTHER, SELFPAY | PROVIDERS: PCP Internal Medicine; Referring Provider Internal Medicine; Visit Provider Physician Assistant Surgical ==

== ENCOUNTER → 2021-05-03 08:04 | Outpatient (BNVA) | payer OTHER, SELFPAY | PROVIDERS: PCP Internal Medicine; Visit Provider Surgery ==

== ENCOUNTER → 2021-05-19 12:04 | Outpatient (BNVA) | payer OTHER, SELFPAY | PROVIDERS: PCP Internal Medicine; Referring Provider Internal Medicine; Visit Provider Nurse Practitioner ==

== ENCOUNTER → 2021-05-29 08:52 | Outpatient (BNVA) | payer OTHER, SELFPAY | PROVIDERS: PCP Internal Medicine; Visit Provider Surgery ==

== ENCOUNTER 2021-06-15 11:28 | Outpatient (REF) | payer OTHER, SELFPAY ==
[2021-06-15 13:07] LABS: Binax Internal Control QC Valid; Binax Lot number: 9864; Binax Now Covid-19 Ag Negative (Negative)
== END 2021-06-15 11:29 | disposition home or self-care (01) ==
LOC: HO.LAB 11:28
PROVIDERS: Visit Provider Internal Medicine
DX: Z20.822 Contact with and (suspected) exposure to COVID-19 (principal)
CPT/HCPCS: 36415; C9803

== ENCOUNTER 2021-08-01 08:56 | Outpatient (REF) | payer OTHER, SELFPAY ==
--- NOTE | ~2021-08-01 | XR_ITS ---
EXAMINATION: XR HIP, RIGHT XR HIP, LEFT CLINICAL INFORMATION: Bilateral hip pain. COMPARISON: MRI of 04/03/2018 and x-ray study of 03/13/2018. CT examination of 06/27/2017. TECHNIQUE: 2 views of each hip. FINDINGS: RIGHT HIP: Two views of the right hip demonstrate some progression in degenerative change of narrowing of the superior aspect of the joint as well as an increase in spurring since the previous study of 03/13/2018. No acute fracture or dislocation is evident. There is again seen to be flattening of the femoral head with what appears be some articular irregularity. There is subchondral cyst formation seen about the inferior acetabulum. LEFT HIP: Two views of the left hip demonstrate flattening of the femoral head with some articular irregularity. The flattening appears to be similar to the right hip. No acute fracture identified. There appears to be some buttressing of the lateral aspect of the left superior pubic ramus versus change from previous trauma. Mild marginal spurring is present. No dislocation. Joint space appears generally maintained. XR/XR hip RT min 2V IMPRESSION: Appearance of moderate degenerative change of the right hip which has progressed since the previous study. Mild degenerative change of the left hip. Bilateral femoral head flattening which has been present on the right with no significant change.
--- NOTE | ~2021-08-01 | XR_ITS ---
EXAMINATION: XR HIP, RIGHT XR HIP, LEFT CLINICAL INFORMATION: Bilateral hip pain. COMPARISON: MRI of 04/03/2018 and x-ray study of 03/13/2018. CT examination of 06/27/2017. TECHNIQUE: 2 views of each hip. FINDINGS: RIGHT HIP: Two views of the right hip demonstrate some progression in degenerative change of narrowing of the superior aspect of the joint as well as an increase in spurring since the previous study of 03/13/2018. No acute fracture or dislocation is evident. There is again seen to be flattening of the femoral head with what appears be some articular irregularity. There is subchondral cyst formation seen about the inferior acetabulum. LEFT HIP: Two views of the left hip demonstrate flattening of the femoral head with some articular irregularity. The flattening appears to be similar to the right hip. No acute fracture identified. There appears to be some buttressing of the lateral aspect of the left superior pubic ramus versus change from previous trauma. Mild marginal spurring is present. No dislocation. Joint space appears generally maintained. XR/XR hip LT min 2V IMPRESSION: Appearance of moderate degenerative change of the right hip which has progressed since the previous study. Mild degenerative change of the left hip. Bilateral femoral head flattening which has been present on the right with no significant change.
== END 2021-08-01 08:57 | disposition home or self-care (01) ==
LOC: HO.XRAY 08:56
PROVIDERS: PCP Internal Medicine; Visit Provider Nurse Practitioner Family
DX: M25.551 Pain in right hip (principal); M25.552 Pain in left hip; M19.90 Unspecified osteoarthritis, unspecified site; M54.50 Low back pain, unspecified
CPT/HCPCS: 73502; 99212

== ENCOUNTER → 2021-08-17 11:56 | Outpatient (BNVA) | payer OTHER, SELFPAY | PROVIDERS: PCP Internal Medicine; Referring Provider Internal Medicine; Visit Provider Nurse Practitioner | DX: K59.04 Chronic idiopathic constipation (principal); K30 Functional dyspepsia; K21.9 Gastro-esophageal reflux disease without esophagitis | CPT/HCPCS: 99212 ==

== ENCOUNTER → 2021-08-24 09:01 | Outpatient (BNVA) | payer OTHER, SELFPAY | PROVIDERS: PCP Internal Medicine; Visit Provider Internal Medicine Endocrinology, Diabetes & Metabolism | DX: E28.2 Polycystic ovarian syndrome (principal); R35.89 Other polyuria; Z86.32 Personal history of gestational diabetes | CPT/HCPCS: 82947; 83036; 99212 ==

== ENCOUNTER 2021-08-24 10:23 | Outpatient (REF) | payer OTHER, SELFPAY ==
[2021-08-24 14:16] LABS: Anion Gap 9 (12-20); Blood Urea Nitrogen 9 mg/dL (9-16); Calcium 9.1 mg/dL (8.4-10.2); Carbon Dioxide 27 mmol/L (22-29); Chloride 107 mmol/L (96-108); Estimated Glomerular Filt Rate > 60; Glucose Random 83 mg/dL (60-115); Potassium 4.3 mmol/L (3.3-5.1); Sodium 139 mmol/L (135-145)
[2021-08-24 14:50] LABS: Osmolality Urine 692 mosm/kg (373-1093)
== END 2021-08-24 10:24 | disposition home or self-care (01) ==
LOC: HO.10HDL 10:23
PROVIDERS: Visit Provider Internal Medicine Endocrinology, Diabetes & Metabolism
DX: R35.89 Other polyuria (principal); E28.2 Polycystic ovarian syndrome; Z86.32 Personal history of gestational diabetes
CPT/HCPCS: 36415; 80048; 83498; 83935

== ENCOUNTER 2021-08-26 09:24 | Outpatient (REF) | payer OTHER, SELFPAY ==
[2021-08-26 09:49] LABS: Creatinine, mg/dL 138.44
[2021-08-26 10:01] LABS: Creatinine, 24Hr Urine 1.7 G/Day (1.0-2.0); Total Volume 24 Hour Urine 1200 mL
[2021-08-30 21:22] LABS: Creatinine, 24 Hr Urine 1.65 g/24 h (0.50-2.15); Total Volume, 24 Hr Urine 1200 mL
== END 2021-08-26 09:25 | disposition home or self-care (01) ==
LOC: HO.LNP 09:24
PROVIDERS: Visit Provider Internal Medicine Endocrinology, Diabetes & Metabolism
DX: E28.2 Polycystic ovarian syndrome (principal)
CPT/HCPCS: 82530; 82570

== ENCOUNTER → 2021-08-29 08:50 | Outpatient (BNVA) | payer OTHER, SELFPAY | PROVIDERS: PCP Internal Medicine; Visit Provider Nurse Practitioner Family | DX: M16.0 Bilateral primary osteoarthritis of hip (principal); M53.3 Sacrococcygeal disorders, not elsewhere classified; E66.01 Morbid (severe) obesity due to excess calories; Z68.41 Body mass index [BMI] 40.0-44.9, adult | CPT/HCPCS: 99202 ==

== ENCOUNTER → 2021-09-08 10:41 | Outpatient (BNVA) | payer OTHER, SELFPAY | PROVIDERS: PCP Internal Medicine; Visit Provider Nurse Practitioner Family | DX: Z13.89 Encounter for screening for other disorder (principal) ==

== ENCOUNTER → 2021-10-06 14:31 | Outpatient (BNVA) | payer OTHER, SELFPAY | PROVIDERS: PCP Internal Medicine; Visit Provider Nurse Practitioner Family | DX: M79.18 Myalgia, other site (principal); M53.3 Sacrococcygeal disorders, not elsewhere classified ==

== ENCOUNTER 2021-11-07 08:56 | Emergency (ER) | payer OTHER, SELFPAY ==
[2021-11-07 09:34] VITALS: BP 131/68; PULSE 62; RESP 18; TEMP 36.8; O2SAT 100; BMI 42.7
[2021-11-07 10:20] LABS: COVID-19 Test Negative (Negative); IDNOW Serial# 16C4AD1C; Influenza A Negative (Negative); Influenza B2 Negative (Negative)
--- NOTE | 2021-11-07 10:43 | ED_ITS ---
HPI - Nausea/Vomiting/Diarrhea General Chief complaint: Nausea/Vomiting/Diarrhea Stated complaint: Vomiting blood/Infected tooth Time Seen by Provider: 11/07/21 10:20 Source: patient and family Mode of arrival: ambulatory Limitations: no limitations History of Present Illness HPI Narrative: 30-year-old female presenting to the ED with complaints of nausea/vomiting with blood streak emesis since yesterday after she recently started clindamycin for for root canal. Reports that the vomiting has improved. And she had some right upper quadrant abdominal pain yesterday although that has completely resolved. She denies any fevers, chills, dizziness, headaches, chest pain or shortness of breath, dyspnea on exertion, orthopnea, palpitations, paresthesias, abdominal pain at this time, vomiting clots, black or bloody stools, diarrhea constipation or any other symptoms complaints or concerns at this time. Reports she is taking Motrin and that is providing symptomatic relief for her root canal. MD elicited complaint: nausea and vomiting Onset (ago): day(s) (Since yesterday) Description of vomiting: bilious and blood-streaked Associated nausea: Yes Associated abdominal pain: Yes Location of pain: RUQ Pain consistency: now resolved Severity: mild Quality: cramping Exacerbating factors: none Relieving factors: none Associated symptoms: denies other symptoms Related Data Home Medications Medication Instructions Recorded Confirmed sertraline 100 mg tablet 100 mg PO DAILY 08/22/20 08/29/21 bupropion HCl 150 mg 24 hr tablet, 150 mg PO QAM 05/03/21 08/29/21 extended release Previous Rx's Medication Instructions Recorded lancets 28 gauge (FreeStyle #100 ea 06/27/20 Lancets) FreeStyle Lite Strips (blood sugar 4 strip MISCELLANEOUS QID 30 Days 07/20/20 diagnostic) #100 strip NS miscellaneous medical supply 1 ea MISCELLANEOUS DAILY 99 Days 01/03/21 #2 ea gabapentin 400 mg capsule 400 mg PO TID 30 Days #90 cap 02/01/21 dexlansoprazole 60 mg 60 mg PO DAILY #30 cap 05/19/21 capsule,biphase delayed release (Dexilant) linaclotide 145 mcg capsule 145 mcg PO QAM #30 cap 08/17/21 (Linzess) metoclopramide HCl 5 mg tablet 5 mg PO QIDACHS #120 tab 08/17/21 (Reglan) ibuprofen 800 mg tablet (IBU) 800 mg PO Q8H PRN 30 Days #90 tab 08/24/21 lidocaine 5 % topical patch 1 patch TOPICAL DAILY #30 ea 08/29/21 labetalol 100 mg tablet 100 mg PO BID #180 tab 10/13/21 cephalexin 500 mg capsule 500 mg PO BID 7 Days #14 cap 11/07/21 Allergies Allergy/AdvReac Type Severity Reaction Status Date / Time amoxicillin [AMOXICILLIN] Allergy Intermediate NAUSEA & Verified 08/29/21 09:01 VOMITING, stomach pain, vomiting, stomach upset topiramate [From TOPAMAX] Allergy Intermediate TREMORS, Verified 08/29/21 09:01 nausea and vomiting latex [LATEX] Allergy Mild RASH Verified 08/29/21 09:01 medroxyprogesterone Allergy Mild RASH Verified 08/29/21 09:01 [From PROVERA] lactose Allergy bloating , Verified 08/29/21 09:01 diarrhea Review of Systems Review of Systems: Constitutional : No Fever, No Chills, No Night Sweats, No Fatigue, No Malaise Cardiovascular : No Chest Pain, No SOB Respiratory : No Cough, No Sputum, No Wheezing, No Dyspnea Gastrointestinal : + Nausea, + Vomiting, + blood-streaked emesis, No Diarrhea, + abdominal Pain, No Hematochezia, No Melena Genitourinary : No irregular bleeding, No Dysuria, No Urinary Frequency, No Hematuria,No Urinary Incontinence, No Urgency, No Flank Pain Musculoskeletal : No joint pain, No Myalgias, No Joint Swelling Skin : No Skin Lesions, No rash Neuro : No Weakness, No Numbness, No Paresthesias, No Loss of Consciousness, No Dizziness, No Headache Heme/Lymph: No Lymphadenopathy Endocrine : No Temperature Intolerance Yes all other systems are reviewed and are negative Gastrointestinal: Gastrointestinal: Reports nausea PMFSH Past Medical History Attestation statement: The following information was validated with the patient. Medical History Anxiety Arthritis Carpal tunnel syndrome, bilateral Depression Fibromyalgia Hyperlipemia Hypertension Insomnia Lower back pain Migraine Migraines Morbid obesity Morbid obesity with BMI of 40.0-44.9, adult Obesity Obesity (BMI 30-39.9) PCOS (polycystic ovarian syndrome) Polyuria Rheumatoid arthritis Second trimester Smoker Vulvar cyst Surgical History History of esophagogastroduodenoscopy (EGD) History of removal of cyst History of tonsillectomy and adenoidectomy Family History Family History Father Medical history unknown Mother Diabetes Hypertension Maternal Aunt Breast cancer Ovarian cancer Mental health disorder Maternal Grandmother Diabetes Hypertension Social History Social History Household Members: Spouse and Children Housing: Condominium Alcohol intake: current Alcohol intake frequency: holidays/special occasions only Patient Tobacco Use Status: Current someday Tobacco user Tobacco use type: Cigarette Cigarettes Per Day: 3 e-Cigarette/Vaping Use: Never Used Second Hand Smoke Exposure: No Substance Use Type: Marijuana Advance Directives: No Advance Directives Information Provided: No service: No Current occupational status: disabled Sexual orientation: Straight/Heterosexual Gender identity: Female Physical Exam Vital Signs: Vital Signs: Last Vital Signs Temp 98.2 F 11/07/21 09:34 Pulse 62 11/07/21 09:34 Resp 18 11/07/21 09:34 BP 131/68 11/07/21 09:34 Pulse Ox 100 11/07/21 09:34 BMI result Body Mass Index 42.7 vital signs have been reviewed as normal and appeared to be correct. Blood pressure normal. Heart rate normal. Respiration rate normal. Temperature normal. Oxygen saturation normal. Appearance: Alert. Oriented X3. No acute distress. Head: Normal external exam. Normocephalic. Atraumatic. Eyes: PERRLA. EOMI. Conjunctiva and sclera normal. Eyelids normal. ENT: EAC normal. TM's Normal. Pharynx normal. Uvula midline. Moist mucous membranes. No lesions/ulcerations or masses noted on the tongue. Normal voice. No trismus noted. No drooling noted. No muffled voice noted. Neck: Normal inspection. Neck supple. FROM. No adenopathy. Thyroid Normal. No tracheal deviation noted. No crepitus is noted. No meningeal signs. No neck mass noted. No signs of trauma noted. CVS: Normal heart rate and rhythm. Heart sound normal. Pulses normal throughout. No murmurs/rales/gallops. Respiratory: No respiratory distress. Painless inspiration. Breath sounds normal. No wheezes/rales/rhonchi noted. Chest nontender. No crepitus is noted. No signs of trauma noted. No accessory muscle usage noted or decreased air movement noted. No signs of trauma. Abdomen: Soft and nontender. Bowel sounds normal in all 4 quadrants. No distention noted. No organomegaly noted. No visible injury noted. Back: No CVA tenderness. Full range of motion noted. Nontender. No signs of trauma. Patient neuro intact bilaterally and distally on all 4 extremities. Patient's reflexes intact bilaterally and distally on all 4 extremities. No rashes/lesion/induration/fluctuance or signs of infection noted. Skin: Skin warm and dry. Normal skin color. Normal skin turgor. No rashes/lesions/lacerations noted. Extremities: Extremities exhibit normal range of motion and nontender. Neuro: Oriented X 3. No motor deficit. No sensory deficit. Reflexes normal. Normal steady gait. No focal neuro deficits noted. CN's II-XII intact bilaterally? Vascular: + radial pulses/+ 2 distal pedal pulses/+2 dorsalis pedis b/l. Normal cap refill. No cyanosis noted to upper extremity nails and lower extremity toes nails. Course Course Course Narrative: Patient negative for COVID influenza. Patient is drinking and eating normally at this time. Denies any nausea/vomiting at this time. Reports that her vomiting blood has almost resolved and she only has blood streaks emesis intermittently. Her right upper quadrant abdominal pain has resolved. She no longer is taking the antibiotics. Reports that she is taking Motrin for her root canal pain. Explained to her that she should take Tylenol and that I will give her a different antibiotic for her root canal since she cannot take the clindamycin. She reports that she has Zofran at home does not need another prescription. Explained to her to return if any new or worsening symptoms follow-up with PCP/dentist although no labs or imaging indicated at this time. Patient understands agrees with this plan. MDM - Nausea/Vomiting/Diarrhea Medical Records Attestation: I reviewed the patient's medical records. Lab Data Attestation: I reviewed the patient's lab results. Labs: Lab Results 11/07/21 11/07/21 Range/Units 09:38 09:38 COVID-19 (HARPAL) Negative (Negative) COVID-19 Clin Com See Note Influenza Type A (RAJESH) Negative (Negative) Influenza Type B (RAJESH) Negative (Negative) Influenza A & B Note See Note Discharge Plan Discharge Clinical Impression: Adverse effect of antibiotic, Pain, dental, Carrie-[place] tear, Nausea & vomiting Patient Disposition: Home, Self-Care Instructions: Acute Nausea and Vomiting (ED), Adverse Drug Reaction (ED), Carrie-[place] Syndrome (ED) Prescriptions: New cephalexin 500 mg capsule 500 mg PO BID 7 Days Qty: 14 0RF No Action FreeStyle Lite Strips Strip 4 strip miscellaneous QID 30 Days Qty: 100 1RF ibuprofen [IBU] 800 mg tablet 800 mg PO Q8H PRN (Reason: pain/headaches) 30 Days Qty: 90 0RF Rx Instructions: Take with food labetalol 100 mg tablet 100 mg PO BID Qty: 180 1RF gabapentin 400 mg capsule 400 mg PO TID 30 Days Qty: 90 3RF Rx Instructions: 1 capsule Orally Three times a day miscellaneous medical supply Misc 1 ea miscellaneous DAILY 99 Days Qty: 2 0RF sertraline 100 mg tablet 100 mg PO DAILY 0RF (DME) lancets [FreeStyle Lancets] 28 gauge misc See Rx Instructions .ROUTE .MEDSUPPLY Qty: 100 1RF Rx Instructions: 4 times/day bupropion HCl 150 mg tablet extended release 24 hr 150 mg PO QAM 0RF Dexilant 60 mg capsule,biphase delayed releas 60 mg PO DAILY Qty: 30 6RF lidocaine 5 % adhesive patch,medicated 1 patch topical DAILY Qty: 30 0RF Rx Instructions: leave on most painful area for up to 12 hrs metoclopramide HCl [Reglan] 5 mg tablet 5 mg PO QIDACHS Qty: 120 6RF Linzess 145 mcg capsule 145 mcg PO QAM Qty: 30 6RF Referrals: Jarrod Sherman MD [Primary Care Provider] - 2 days Print Language: Georgian
== END 2021-11-07 11:25 | disposition home or self-care (01) ==
PROVIDERS: Emergency Provider Emergency Medicine Emergency Medical Services; PCP Internal Medicine
DX: R11.2 Nausea with vomiting, unspecified (principal); K08.89 Other specified disorders of teeth and supporting structures; K22.6 Gastro-esophageal laceration-hemorrhage syndrome; T36.8X5A Adverse effect of other systemic antibiotics, initial encounter; Y92.9 Unspecified place or not applicable; Z20.822 Contact with and (suspected) exposure to COVID-19; F17.200 Nicotine dependence, unspecified, uncomplicated
CPT/HCPCS: 87502; 87635; 99283

== ENCOUNTER 2021-12-11 07:12 | Outpatient (REF) | payer OTHER, SELFPAY | END 2021-12-11 07:13 | disposition home or self-care (01) | LOC: HO.HOSX 07:12 | PROVIDERS: Visit Provider Physician Assistant | DX: Z13.89 Encounter for screening for other disorder (principal) ==

== ENCOUNTER → 2022-01-05 09:21 | Outpatient (BNVA) | payer OTHER, SELFPAY | PROVIDERS: PCP Internal Medicine; Visit Provider Internal Medicine Endocrinology, Diabetes & Metabolism | DX: E28.2 Polycystic ovarian syndrome (principal) | CPT/HCPCS: 99212 ==

== ENCOUNTER → 2022-01-23 13:59 | Outpatient (REF) | payer OTHER, SELFPAY | LOC: HO.SL 13:59 | PROVIDERS: PCP Internal Medicine; Visit Provider Physician Assistant | DX: G47.33 Obstructive sleep apnea (adult) (pediatric) (principal) | CPT/HCPCS: 95806 ==

== ENCOUNTER 2022-02-05 08:23 | Outpatient (REF) | payer OTHER, SELFPAY ==
[2022-02-05 08:37] LABS: MANUAL DIFF FLAG NO
[2022-02-05 08:47] LABS: Basophils Percent Auto 0.6 % (0-2); Eosinophils Absolute Auto 0.2 X10*3/uL (0.0-0.4); Eosinophils Percent Auto 2.2 % (0-4); Hematocrit 34.9 % (37.0-47.0); Hemoglobin 10.9 g/dl (12.0-16.0); Imm Gran Abs Auto 0.03 X10*3/uL (0.00-0.03); Imm Gran Pct Auto 0.4 % (0.0-0.4); Immature Retic Fraction 11.3 % (3.0-15.9); Lymphocytes Absolute Auto 2.2 X10*3/uL (1.2-4.9); Lymphocytes Percent Auto 32.2 % (20-40); Mean Corpuscular HGB Conc 31.2 g/dl (31.0-35.0); Mean Corpuscular Hemoglobin 25.9 pg (27.0-33.0); Mean Corpuscular Volume 82.9 fL (80.0-98.0); Mean Platelet Volume 10.3 fL (9.4-12.3); Monocytes Absolute Auto 0.6 X10*3/uL (0.1-1.2); Monocytes Percent Auto 9.3 % (2-11); Neutrophils Absolute Auto 3.8 x10*3/uL (2.0-8.3); Neutrophils Percent Auto 55.3 % (45-73); Platelet Count 326 X10*3/uL (160-400); Red Blood Count 4.21 X10*6/uL (4.20-5.50); Red Cell Distribution Width 14.6 % (11.0-16.0); Retic HGB Equivalent 31.2 pg (30.0-35.0); Reticulocyte Percent 1.4 % (0.5-1.8); Reticulocytes Absolute 0.059 X10*6/uL (0.026-0.095); White Blood Count 6.8 X10*3/uL (4.8-10.8)
[2022-02-05 09:06] LABS: Estimated Average Glucose 105 mg/dL; Hemoglobin A1c % 5.3 %
[2022-02-05 09:25] LABS: Alanine Aminotransferase 14 U/L (0-31); Alkaline Phosphatase 89 U/L (39-117); Anion Gap 12 (12-20); Aspartate Amino Transferase 14 U/L (5-31); Bilirubin Total 0.2 mg/dL (0.0-1.0); Blood Urea Nitrogen 10 mg/dL (9-16); Calcium 9.2 mg/dL (8.4-10.2); Carbon Dioxide 27 mmol/L (22-29); Chloride 108 mmol/L (96-108); Cholesterol 152 mg/dL; Estimated Glomerular Filt Rate > 60; Glucose Random 102 mg/dL (60-115); HDL Cholesterol 39 mg/dL; Iron 44 mcg/dL (30-160); LDL Cholesterol Calculated 101 mg/dl; Percent Iron Saturation 12 % (15-50); Potassium 4.7 mmol/L (3.3-5.1); Sodium 142 mmol/L (135-145); Total Iron Binding Capacity 356 mcg/dL (228-428); Total Protein 7.1 g/dL (6.5-8.0); Triglycerides 64 mg/dL; Unsaturated Iron Binding 312 ug/dL
[2022-02-05 09:38] LABS: Appearance Urine Cloudy; Color Urine Yellow; Glucose Urine UA Negative (Negative); Leukocyte Esterase Urine Moderate (2+) (Negative); Nitrite Urine Negative (Negative); Urine Blood Negative (Negative); Urine Ketones Negative (Negative); Urine Protein Negative (Neg-Trace)
[2022-02-05 09:43] LABS: Bacteria Urine 1+ (None Seen); Hyaline Casts Urine 0-2 /LPF (0-2); RBC Urine 0-2 /HPF (0-2); UACC Culture Trigger YES
[2022-02-05 09:47] LABS: Ferritin 16 ng/mL (10-122); Thyroid Stimulating Hormone 2.03 uIU/mL (0.32-4.0)
[2022-02-05 10:16] LABS: Folate 17.7 ng/mL (> or = 4.0); Vitamin B12 543 pg/mL (200-900)
== END 2022-02-05 08:24 | disposition home or self-care (01) ==
LOC: HO.LAB 08:23
PROVIDERS: Internal Medicine; Absent Provider Internal Medicine Endocrinology, Diabetes & Metabolism; PCP Internal Medicine; Visit Provider Internal Medicine
DX: E78.00 Pure hypercholesterolemia, unspecified (principal); I10 Essential (primary) hypertension
CPT/HCPCS: 36415; 80053; 80061; 81001; 82607; 82728; 82746; 83036; 83540; 84439; 84443; 85025; 85045; 87086

== ENCOUNTER 2022-02-12 07:42 | Outpatient (REF) | payer OTHER, SELFPAY ==
[2022-02-12 08:19] LABS: Estimated Average Glucose 105 mg/dL; Hemoglobin A1c % 5.3 %
[2022-02-12 08:40] LABS: Anion Gap 15 (12-20); Blood Urea Nitrogen 13 mg/dL (9-16); Calcium 8.9 mg/dL (8.4-10.2); Carbon Dioxide 23 mmol/L (22-29); Chloride 109 mmol/L (96-108); Estimated Glomerular Filt Rate > 60; Glucose Random 105 mg/dL (60-115); Potassium 4.8 mmol/L (3.3-5.1); Sodium 142 mmol/L (135-145)
[2022-02-12 09:04] LABS: Free T4 (Free Thyroxine) 0.91 ng/dL (0.71-1.85)
[2022-02-12 09:07] LABS: Appearance Urine Cloudy; Color Urine Yellow; Glucose Urine UA Negative (Negative); Leukocyte Esterase Urine Small (1+) (Negative); Nitrite Urine Negative (Negative); Specific Gravity - Urine 1.025 (1.005-1.025); Urine Blood Negative (Negative); Urine Ketones Negative (Negative); Urine Protein Negative (Neg-Trace)
[2022-02-12 09:44] LABS: Bacteria Urine 1+ (None Seen); Hyaline Casts Urine 0-2 /LPF (0-2); RBC Urine 0-2 /HPF (0-2); UACC Culture Trigger YES
[2022-02-17 20:22] LABS: Testosterone, Free 4.4 pg/mL (0.1-6.4); Testosterone, Total 41 ng/dL (2-45)
== END 2022-02-12 07:43 | disposition home or self-care (01) ==
LOC: HO.LAB 07:42
PROVIDERS: Internal Medicine Endocrinology, Diabetes & Metabolism; PCP Internal Medicine; Visit Provider Internal Medicine
DX: E28.2 Polycystic ovarian syndrome (principal)
CPT/HCPCS: 36415; 80048; 81001; 81003; 83036; 84402; 84403; 84439; 84443; 87086

== ENCOUNTER 2022-03-31 20:25 | Emergency (ER) | payer OTHER, SELFPAY ==
--- NOTE | ~2022-03-31 | XR_ITS ---
EXAMINATION: XR CHEST CLINICAL INFORMATION: Chest pain COMPARISON: 07/18/2020 TECHNIQUE: Frontal view of the chest was obtained. FINDINGS: Normal symmetric lung volumes. No parenchymal consolidation. No pleural effusion. No pneumothorax. Cardiomediastinal silhouette and pulmonary vascularity are within normal limits. No acute osseous abnormalities. XR/XR chest 1V IMPRESSION: No acute findings
--- NOTE | 2022-03-31 20:29 | ECG_ITS ---
Test Reason : CHEST PAIN Blood Pressure : / mmHG Vent. Rate : 062 BPM Atrial Rate : 062 BPM P-R Int : 152 ms QRS Dur : 090 ms QT Int : 394 ms P-R-T Axes : 016 040 000 degrees QTc Int : 399 ms Normal sinus rhythm Normal ECG When compared with ECG of 18-FEB-2018 20:12, No significant change was found Referred By: Generic ED Physician Electronically Signed By:JADYN RICH MD
[2022-03-31 20:30] VITALS: BP 153/80; PULSE 80; O2SAT 98
[2022-03-31 20:42] VITALS: BP 122/54; PULSE 64; RESP 18; TEMP 37.2; O2SAT 99; BMI 60.4
[2022-03-31 21:05] LABS: MANUAL DIFF FLAG NO
[2022-03-31 21:07] LABS: Basophils Percent Auto 0.6 % (0-2); Eosinophils Absolute Auto 0.2 X10*3/uL (0.0-0.4); Eosinophils Percent Auto 2.9 % (0-4); Hematocrit 32.2 % (37.0-47.0); Hemoglobin 10.1 g/dl (12.0-16.0); Imm Gran Abs Auto 0.01 X10*3/uL (0.00-0.03); Imm Gran Pct Auto 0.2 % (0.0-0.4); Lymphocytes Absolute Auto 2.5 X10*3/uL (1.2-4.9); Lymphocytes Percent Auto 39.1 % (20-40); Mean Corpuscular HGB Conc 31.4 g/dl (31.0-35.0); Mean Corpuscular Hemoglobin 25.9 pg (27.0-33.0); Mean Corpuscular Volume 82.6 fL (80.0-98.0); Mean Platelet Volume 9.8 fL (9.4-12.3); Monocytes Absolute Auto 0.5 X10*3/uL (0.1-1.2); Monocytes Percent Auto 7.5 % (2-11); Neutrophils Absolute Auto 3.1 x10*3/uL (2.0-8.3); Neutrophils Percent Auto 49.7 % (45-73); Platelet Count 280 X10*3/uL (160-400); Red Cell Distribution Width 14.8 % (11.0-16.0); White Blood Count 6.3 X10*3/uL (4.8-10.8)
[2022-03-31 21:08] LABS: Appearance Urine Clear; Color Urine Yellow; Glucose Urine UA Negative (Negative); Leukocyte Esterase Urine Negative (Negative); Nitrite Urine Negative (Negative); Specific Gravity - Urine 1.025 (1.005-1.025); Urine Blood Negative (Negative); Urine Ketones Negative (Negative); Urine Protein Trace mg/dL (Neg-Trace)
[2022-03-31 21:10] LABS: UPreg QC Valid YES; Urine Pregnancy NEGATIVE (NEGATIVE)
[2022-03-31 21:22] LABS: Alanine Aminotransferase 12 U/L (0-31); Albumin Level 3.9 g/dL (3.5-5.0); Alkaline Phosphatase 75 U/L (39-117); Anion Gap 13 (12-20); Aspartate Amino Transferase 12 U/L (5-31); Bilirubin Direct < 0.2 mg/dL (0.0-0.5); Bilirubin Total 0.3 mg/dL (0.0-1.0); Blood Urea Nitrogen 8 mg/dL (9-16); Carbon Dioxide 26 mmol/L (22-29); Chloride 108 mmol/L (96-108); Creatinine Clr Calc Pharmacy 167.5; Estimated Glomerular Filt Rate > 60; Glucose Random 128 mg/dL (60-115); Lipase 23 U/L (8-78); Sodium 143 mmol/L (135-145); Total Protein 6.8 g/dL (6.5-8.0)
[2022-03-31 21:26] LABS: Troponin-I High Sensitivity < 3.5 ng/L (<3.5-17.0)
[2022-03-31 22:50] VITALS: BP 153/73; PULSE 60; RESP 18; TEMP 36.4; O2SAT 100
--- NOTE | 2022-03-31 23:33 | ED_ITS ---
HPI - Chest Pain General Chief Complaint: Chest Pain Stated Complaint: CP,Abd Pain for 2 days Time Seen by Provider: 03/31/22 23:32 Source: patient Mode of arrival: ambulatory Limitations: no limitations History of Present Illness HPI narrative: 31 yo female hx of headaches, KALA, ADHD, bipolar, prior chest pain, GERD, gastritis, not on OCPs, reports 2 days of diffuse headache - hx of same in the past no trauma not responding to motrin. She also has reproduceable CWP that is sharp and hurts to touch - similar to the past no recent travel or procedures. Denies recent illness. MD complaint: chest pain Onset (ago): day(s) (2) Timing of current episode: constant Prior episodes: Yes Onset: during rest Pain location: substernal Pain radiation: none Severity: moderate Quality: sharp Relieving factors: nothing Exacerbating factors: palpation Associated symptoms: other (headache - similar to priors, no fevers, worsening over the past two days, bothered by light) Treatment prior to arrival: other (tried ibuprofen) Related Data Home Medications Medication Instructions Recorded Confirmed sertraline 100 mg tablet 100 mg PO DAILY 08/22/20 01/31/22 bupropion HCl 150 mg 24 hr tablet, 150 mg PO QAM 05/03/21 01/31/22 extended release ibuprofen 600 mg tablet 600 mg PO Q6H PRN pain 01/05/22 01/31/22 Previous Rx's Medication Instructions Recorded lancets 28 gauge (FreeStyle #100 ea 06/27/20 Lancets) FreeStyle Lite Strips (blood sugar 4 strip miscellaneous QID 30 days 07/20/20 diagnostic) #100 strips miscellaneous medical supply 1 ea miscellaneous DAILY 99 days 01/03/21 #2 ea gabapentin 400 mg capsule 400 mg PO TID 30 days #90 caps 02/01/21 dexlansoprazole 60 mg 60 mg PO DAILY #30 caps 05/19/21 capsule,biphase delayed release (Dexilant) linaclotide 145 mcg capsule 145 mcg PO QAM #30 caps 08/17/21 (Linzess) metoclopramide HCl 5 mg tablet 5 mg PO QIDACHS #120 tabs 08/17/21 (Reglan) ibuprofen 800 mg tablet (IBU) 800 mg PO Q8H PRN pain/headaches 08/24/21 30 days #90 tabs labetalol 100 mg tablet 100 mg PO BID #180 tabs 10/13/21 lidocaine 5 % topical patch 1 patch topical DAILY #30 ea 11/24/21 spironolactone 50 mg tablet 50 mg PO BID #60 tabs 01/05/22 sulfamethoxazole 800 1 tab PO BID #14 tabs 02/05/22 mg-trimethoprim 160 mg tablet (Bactrim DS) Allergies Allergy/AdvReac Type Severity Reaction Status Date / Time amoxicillin [AMOXICILLIN] Allergy Intermediate NAUSEA & Verified 01/31/22 08:59 VOMITING, stomach pain, vomiting, stomach upset topiramate [From TOPAMAX] Allergy Intermediate TREMORS, Verified 01/31/22 08:59 nausea and vomiting latex [LATEX] Allergy Mild RASH Verified 01/31/22 08:59 medroxyprogesterone Allergy Mild RASH Verified 01/31/22 08:59 [From PROVERA] lactose Allergy bloating , Verified 01/31/22 08:59 diarrhea Review of Systems Review of Systems: Constitutional : No Weight loss, No Fever, No Chills ENT/Mouth : No sore throat, No Rhinorrhea Eyes: No Eye Pain, No Swelling Cardiovascular : pos Chest Pain, no SOB, no Dyspnea on Exertion, No Orthopnea, No Edema, No Palpitations Respiratory : No Cough, No Sputum Gastrointestinal : no Nausea, No Vomiting, No Diarrhea, No abdominal Pain, No Hematochezia, No Melena Genitourinary : No Dysuria, No Urinary Frequency Musculoskeletal : No joint pain, No Myalgias, No Joint Swelling Skin : No Skin Lesions, No rash Neuro : No Weakness, No Numbness, No Dizziness, pos Headache Psych : pos Anxiety/Panic, No Depression All other systems reviewed and are negative [facility] Past Medical History Attestation statement: The following information was validated with the patient. Medical History Anxiety Arthritis Carpal tunnel syndrome, bilateral Depression Fibromyalgia Hyperlipemia Hypertension Insomnia Lower back pain Migraine Migraines Morbid obesity Morbid obesity with BMI of 40.0-44.9, adult Obesity Obesity (BMI 30-39.9) PCOS (polycystic ovarian syndrome) Polyuria Rheumatoid arthritis Second trimester Smoker Vulvar cyst Surgical History History of esophagogastroduodenoscopy (EGD) History of removal of cyst History of tonsillectomy and adenoidectomy Family History Family History Father Medical history unknown Mother Diabetes Hypertension Maternal Aunt Breast cancer Ovarian cancer Mental health disorder Maternal Grandmother Diabetes Hypertension Social History Social History Household Members: Spouse and Children Housing: Condominium Alcohol intake: current Alcohol intake frequency: holidays/special occasions only Patient Tobacco Use Status: Former Tobacco user Tobacco use type: Cigarette Cigarettes Per Day: 3 e-Cigarette/Vaping Use: Never Used Second Hand Smoke Exposure: No Substance Use Type: Marijuana Advance Directives: No service: No Current occupational status: disabled Sexual orientation: Straight/Heterosexual Gender identity: Female Cognitive needs: No Hearing needs: No Vision needs: Yes Physical Exam Vital Signs: Vital Signs: Last Vital Signs Temp 97.4 F 04/01/22 00:07 Pulse 62 04/01/22 00:07 Resp 17 04/01/22 00:07 BP 140/78 H 04/01/22 00:07 Pulse Ox 100 04/01/22 00:07 O2 Del Method 04/01/22 00:07 BMI result Body Mass Index 60.4 Appearance: Alert. Oriented X3. No acute distress. Eyes: Pupils equal, round and reactive to light. ENT: Pharynx normal. Neck: Normal inspection. Neck supple. CVS: Normal heart rate and rhythm. Pulses normal. Chest wall: ttp along bilateral costochondral borders reproduces pain Respiratory: No respiratory distress. Breath sounds normal. Abdomen: Soft and non-tender. Skin: Skin warm and dry. Normal skin color. Normal skin turgor. Extremities: No lower extremity edema. No calf ttp Neuro: Oriented X 3. No motor deficit. No sensory deficit. Course Course Course Narrative: feels better, stable for DC MDM - Chest Pain MDM Narrative Medical decision making narrative: 31 yo female hx of headaches, KALA, ADHD, bipolar, prior chest pain, GERD, seng ritis, not on OCPs here with c/o chest wall pain x 2 days with unchanged EKG, flat trop, CXR negative - doubt ACS has had prior cp in the past. She is PERC negative, normal distal pulses - doubt dissection. She also c/o headache similar to priors suspect tension headache given stress at home. Doubt [employer] infection/SAH. Will give ativan and fioricet and reassess. Lab Data Result diagrams: 03/31/22 20:58 03/31/22 20:58 Labs: Lab Results 03/31/22 03/31/22 03/31/22 Range/Units 20:58 20:58 20:58 WBC 6.3 (4.8-10.8) X10*3/uL RBC 3.90 L (4.20-5.50) X10*6/uL Hgb 10.1 L (12.0-16.0) g/dl Hct 32.2 L (37.0-47.0) % MCV 82.6 (80.0-98.0) fL MCH 25.9 L (27.0-33.0) pg MCHC 31.4 (31.0-35.0) g/dl RDW 14.8 (11.0-16.0) % Plt Count 280 (160-400) X10*3/uL MPV 9.8 (9.4-12.3) fL Immature Gran % (Auto) 0.2 (0.0-0.4) % Neut % (Auto) 49.7 (45-73) % Lymph % (Auto) 39.1 (20-40) % Hendricks % (Auto) 7.5 (2-11) % Eos % (Auto) 2.9 (0-4) % Baso % (Auto) 0.6 (0-2) % Lymph # (Auto) 2.5 (1.2-4.9) X10*3/uL Hendricks # (Auto) 0.5 (0.1-1.2) X10*3/uL Eos # (Auto) 0.2 (0.0-0.4) X10*3/uL Baso # (Auto) 0.0 (0.0-0.2) X10*3/uL Abs Immat Gran (auto) 0.01 (0.00-0.03) X10*3/uL Absolute Neuts (auto) 3.1 (2.0-8.3) x10*3/uL Absolute Nucleated RBC 0.000 (0.0-0.012) X10*3/uL Nucleated RBC % (auto) 0.0 (0.0-0.2) /100WBC Sodium 143 (135-145) mmol/L Potassium 4.0 (3.3-5.1) mmol/L Chloride 108 (96-108) mmol/L Carbon Dioxide 26 (22-29) mmol/L Anion Gap 13 (12-20) BUN 8 L (9-16) mg/dL Creatinine 0.66 (0.5-1.4) mg/dL Estim Creat Clear Calc 167.5 Estimated GFR > 60 Random Glucose 128 H (60-115) mg/dL Calcium 9.0 (8.4-10.2) mg/dL Total Bilirubin 0.3 (0.0-1.0) mg/dL Direct Bilirubin < 0.2 (0.0-0.5) mg/dL AST 12 (5-31) U/L ALT 12 (0-31) U/L Alkaline Phosphatase 75 (39-117) U/L Troponin I High Sens < 3.5 (<3.5-17.0) ng/L Total Protein 6.8 (6.5-8.0) g/dL Albumin 3.9 (3.5-5.0) g/dL Lipase 23 (8-78) U/L Urine Color Urine Appearance Urine pH (5.0-9.0) Ur Specific Boring (1.005-1.025) Urine Protein (Neg-Trace) mg/dL Urine Glucose (UA) (Negative) mg/dL Urine Ketones (Negative) mg/dL Urine Blood (Negative) Urine Nitrite (Negative) Ur Leukocyte Esterase (Negative) Urine Test (NEGATIVE) 03/31/22 03/31/22 Range/Units 20:58 20:58 WBC (4.8-10.8) X10*3/uL RBC (4.20-5.50) X10*6/uL Hgb (12.0-16.0) g/dl Hct (37.0-47.0) % MCV (80.0-98.0) fL MCH (27.0-33.0) pg MCHC (31.0-35.0) g/dl RDW (11.0-16.0) % Plt Count (160-400) X10*3/uL MPV (9.4-12.3) fL Immature Gran % (Auto) (0.0-0.4) % Neut % (Auto) (45-73) % Lymph % (Auto) (20-40) % Hendricks % (Auto) (2-11) % Eos % (Auto) (0-4) % Baso % (Auto) (0-2) % Lymph # (Auto) (1.2-4.9) X10*3/uL Hendricks # (Auto) (0.1-1.2) X10*3/uL Eos # (Auto) (0.0-0.4) X10*3/uL Baso # (Auto) (0.0-0.2) X10*3/uL Abs Immat Gran (auto) (0.00-0.03) X10*3/uL Absolute Neuts (auto) (2.0-8.3) x10*3/uL Absolute Nucleated RBC (0.0-0.012) X10*3/uL Nucleated RBC % (auto) (0.0-0.2) /100WBC Sodium (135-145) mmol/L Potassium (3.3-5.1) mmol/L Chloride (96-108) mmol/L Carbon Dioxide (22-29) mmol/L Anion Gap (12-20) BUN (9-16) mg/dL Creatinine (0.5-1.4) mg/dL Estim Creat Clear Calc Estimated GFR Random Glucose (60-115) mg/dL Calcium (8.4-10.2) mg/dL Total Bilirubin (0.0-1.0) mg/dL Direct Bilirubin (0.0-0.5) mg/dL AST (5-31) U/L ALT (0-31) U/L Alkaline Phosphatase (39-117) U/L Troponin I High Sens (<3.5-17.0) ng/L Total Protein (6.5-8.0) g/dL Albumin (3.5-5.0) g/dL Lipase (8-78) U/L Urine Color Yellow Urine Appearance Clear Urine pH 6.0 (5.0-9.0) Ur Specific Boring 1.025 (1.005-1.025) Urine Protein Trace (Neg-Trace) mg/dL Urine Glucose (UA) Negative (Negative) mg/dL Urine Ketones Negative (Negative) mg/dL Urine Blood Negative (Negative) Urine Nitrite Negative (Negative) Ur Leukocyte Esterase Negative (Negative) Urine Test NEGATIVE (NEGATIVE) ECG Data ECG #1: Attestation: I personally reviewed and interpreted this ECG as follows: ECG interpretation date: 03/31/22 ECG interpretation time: 23:33 Interpretation: Rate: 62 Rhythm: NSR [place]: normal Normal P waves. Normal ADRIENNE. Normal QRS complex. ST T wave : no SURAJ, inverted t waves III and V1 qTC: normal prior studies: unchanged 2017 The study has been interpreted contemporaneously by me. . Discharge Plan Discharge Clinical Impression: Atypical chest pain, Tension headache, Acute costochondritis Patient Disposition: Home, Self-Care Instructions: Chest Pain (ED), Tension Headache (ED), Costochondritis (ED) Additional Instructions: return to ED for any worsening symptoms or concerns Prescriptions: No Action FreeStyle Lite Strips Strip 4 strip miscellaneous QID 30 Days Qty: 100 1RF ibuprofen [IBU] 800 mg tablet 800 mg PO Q8H PRN (Reason: pain/headaches) 30 Days Qty: 90 0RF Rx Instructions: Take with food labetalol 100 mg tablet 100 mg PO BID Qty: 180 1RF lidocaine 5 % adhesive patch,medicated 1 patch topical DAILY Qty: 30 0RF Rx Instructions: leave on most painful area for up to 12 hrs sulfamethoxazole-trimethoprim [Bactrim DS] 800-160 mg tablet 1 tab PO BID Qty: 14 0RF gabapentin 400 mg capsule 400 mg PO TID 30 Days Qty: 90 3RF Rx Instructions: 1 capsule Orally Three times a day miscellaneous medical supply Misc 1 ea miscellaneous DAILY 99 Days Qty: 2 0RF sertraline 100 mg tablet 100 mg PO DAILY (DME) lancets [FreeStyle Lancets] 28 gauge misc See Rx Instructions .ROUTE .MEDSUPPLY Qty: 100 1RF Rx Instructions: 4 times/day bupropion HCl 150 mg tablet extended release 24 hr 150 mg PO QAM Dexilant 60 mg capsule,biphase delayed releas 60 mg PO DAILY Qty: 30 6RF ibuprofen 600 mg tablet 600 mg PO Q6H PRN (Reason: pain) spironolactone 50 mg tablet 50 mg PO BID Qty: 60 5RF metoclopramide HCl [Reglan] 5 mg tablet 5 mg PO QIDACHS Qty: 120 6RF Linzess 145 mcg capsule 145 mcg PO QAM Qty: 30 6RF
[2022-04-01 00:07] VITALS: BP 140/78; PULSE 62; RESP 17; TEMP 36.3; O2SAT 100
--- OUTSIDE RECORDS SUMMARY | 2022-04-01 00:26 | XMS_ITS | Continuity of Care Document ---
:1990 Author Organization [facility] Address [address] [place] [address], [address] [place] [phone]- Care Team Providers Name Role Phone Jarrod Sherman MD Primary Care Physician Encounter [facility] [place] Date(s): 11/01/20 - 12/01/20 [facility] [address], [address] [place] [id number] Allergies, Adverse Reactions, Alerts Substance Reaction Severity Status amoxicillin Rash Active topiramate Swelling of throat Active Provera Bleeding Active Latex Skin rash Active Immunizations Given and Recorded Vaccine Date Status Refusal Reason tetanus/diphtheria/pertussis, acel(Tdap) 10/27/20 Given tetanus/diphtheria/pertussis, acel(Tdap) 10/09/19 Given Measles/Mumps/Rubella Virus Vaccine 10/22/19 Given Medications aspirin 81 mg oral delayed release tablet 81 mg, 1, tablet, By Mouth, Daily, # 30 tablet, Refills 0, Tot. Refills 0, Maintenance, 10/23/19 8:29:00 EDT, Route to Pharmacy Electronically, [facility]/pharmacy #[id number], 154.94, cm, 10/23/19 5:18:00 EDT, Height, 97.27, kg, 10/21/19 8:42:00 EDT, Dry Weight Start Date: 10/23/19 Status: Orderedbisacodyl 5 mg oral delayed release tablet 1 tablet = 5 mg, By Mouth, Daily, PRN as needed for constipation, # 20 tablet, 0 Refills, Acute 06/16/21 0:00:00 EST, 11/16/20 9:05:00 EDT, CR Tablet, [facility]/pharmacy #[id number], Partial fill upon patient request if the prescription is for a schedule II opioi... Start Date: 11/16/20 Stop Date: 06/16/21 Status: OrderedDexilant 30 mg oral delayed release capsule 1 capsule = 30 mg, By Mouth, Daily, 0 Refills, Maintenance, 09/05/19 0:12:00 EDT Start Date: 09/05/19 Status: Ordereddoxylamine-pyridoxine 10 mg-10 mg oral delayed release tablet 2 tablet, By Mouth, Daily at bedtime, # 60 tablet, 2 Refills, Maintenance, 09/22/20 11:24:00 EDT, CRTablet, [facility]/pharmacy #[id number], Partial fill upon patient request if the prescription is for a schedule II opioid drug., 2 tablet By Mouth Daily at bedtim... Start Date: 09/22/20 Status: OrderedFreestyle Lite Lancets See Instructions, # 1 pack/packet, Refills 3, Tot. Refills 3, Maintenance, To test blood sugar 4 x day. 1 packet =100 lancets, 11/22/20 8:51:00 EDT, Compound, 154.94, cm, 11/16/20 8:54:00 EDT, Height, 104.4, kg, 11/19/20 3:50:00 EDT, Dry Weight Start Date: 11/22/20 Status: OrderedFreestyle Lite Test Strips See Instructions, # 1 pack/packet, Refills 3, Tot. Refills 3, Maintenance, To test blood sugar 4 x day. 1 Bottle= 100 test strips, 11/22/20 8:51:00 EDT, Compound, 154.94, cm, 11/16/20 8:54:00 EDT, Height, 104.4, kg, 11/19/20 3:50:00 EDT, Dry Weight Start Date: 11/22/20 Status: Orderedhydrocortisone-pramoxine 1%-1% topical cream 1 application, Topically, 3 times a day, # 57 Gm, 0 Refills, Acute 06/16/21 0:00:00 EST, 11/16/20 9:03:00 EDT, Cream, [facility]/pharmacy #[id number], Partial fill upon patient request if the prescription is for a schedule II opioid drug., 1 application Topically... Start Date: 11/16/20 Stop Date: 06/16/21 Status: Orderedlabetalol 100 mg oral tablet 1 tablet = 100 mg, By Mouth, 2 times a day, 0 Refills, Maintenance, 09/05/19 0:12:00 EDT Start Date: 09/05/19 Status: OrderedPrenatal Multivitamins with Folic Acid 1 mg oral tablet 1 tablet, By Mouth, Daily, # 90 tablet, 4 Refills, Maintenance, 12/12/18 11:32:47 EDT, 1 tablet By Mouth Daily Start Date: 12/12/18 Status: Orderedsertraline 100 mg oral tablet 1 tablet = 100 mg, By Mouth, Daily, 0 Refills, Maintenance, 08/18/20 11:50:00 EST, Partial fill uponpatient request if the prescription is for a schedule II opioid drug. Start Date: 08/18/20 Status: Ordered Problem List Condition Effective Dates Status Health Status Informant Anemia(Confirmed) Active Anxiety(Confirmed)1 Active Arthritis(Confirmed) Active Bipolar disorder(Confirmed) Active Carpal tunnel syndrome during Active (Confirmed) Vulvar cyst(Confirmed) Active Depression(Confirmed) Active Fibromyalgia(Confirmed) Active GERD (gastroesophageal reflux Active disease)(Confirmed) Diabetes, gestational(Confirmed) Active Hemorrhoid(Confirmed) Active Supervision of high risk , Active antepartum(Confirmed) Hx of preeclampsia, prior , Active currently (Confirmed) History of COVID-19(Confirmed) 06/20/20 Active Chronic hypertension(Confirmed) Active Marijuana use(Confirmed)2 Active Migraines(Confirmed) Active Nausea and vomiting in Active (Confirmed) Obesity(Confirmed) Active Panic attacks(Confirmed) Active PCOS (polycystic ovarian Active syndrome)(Confirmed) Rubella equivocal [ ] MMR Active (Confirmed) 1on Sertraline now, helping and has therapist and [id number] in the morning for nausea and anxiety Social History Social History Type Response Smoking Status Former smoker, quit more radha n 30 days ago entered on: 08/04/20 Sex
--- OUTSIDE RECORDS SUMMARY | 2022-04-01 00:26 | XMS_ITS | Continuity of Care Document ---
:1990 Author Organization [facility] Address [address] [place] [phone]- Care Team Providers Name Role Phone Jarrod Sherman MD Primary Care Physician [place] [facility] [place] 10/17/19 - 11/22/[address] [address]- [facility] Attending Physician: Natividad Jiang DO Admitting Physician: Natividad Jiang DO Referring Physician: Katy Irwin CNM Allergies, Adverse Reactions, Alerts Substance Reaction Severity Status amoxicillin Rash Active topiramate Swelling of throat Active Provera Bleeding Active Latex Skin rash Active Immunizations Given and Recorded Vaccine Date Status Refusal Reason Measles/Mumps/Rubella Virus Vaccine 10/22/19 Given tetanus/diphtheria/pertussis, acel(Tdap) 10/09/19 Given Medications aspirin 81 mg oral delayed release tablet 81 mg, 1, tablet, By Mouth, Daily, # 30 tablet, Refills 0, Tot. Refills 0, Maintenance, 10/23/19 8:29:00 EDT, Route to Pharmacy Electronically, [facility]/pharmacy #[id number], 154.94, cm, 10/23/19 5:18:00 EDT, Height, 97.27, kg, 10/21/19 8:42:00 EDT, Dry Weight Start Date: 10/23/19 Status: OrderedDexilant 30 mg oral delayed release capsule 1 capsule = 30 mg, By Mouth, Daily, 0 Refills, Maintenance, 09/05/19 0:12:00 EDT Start Date: 09/05/19 Status: Ordereddocusate sodium 100 mg oral capsule 100 mg, 1, capsule, By Mouth, 2 times a day, PRN, # 60 capsule, Refills 0, Tot. Refills 0, Maintenance, for constipation, 09/29/19 17:57:00 EDT, Route to Pharmacy Electronically, [facility]/pharmacy #[id number], 154.94, cm, 09/27/19 2:08:00 EDT, Height, 95.9, kg,... Start Date: 09/29/19 Status: OrderedFerrous Sulfate ER Refills 0, Maintenance, 09/05/19 0:11:00 EDT Start Date: 09/05/19 Status: Orderedlabetalol 100 mg oral tablet 1 tablet = 100 mg, By Mouth, 2 times a day, 0 Refills, Maintenance, 09/05/19 0:12:00 EDT Start Date: 09/05/19 Status: OrderedmetroNIDAZOLE 500 mg oral tablet 1 tablet = 500 mg, By Mouth, Every 12 hours, # 14 tablet, 0 Refills, Maintenance, 10/19/19 8:53:00 EDT, Tablet, [facility]/pharmacy #[id number], 154.94, cm, 10/16/19 8:22:00 EDT, Height, 95.9, kg, 09/23/19 17:43:00EDT, Dry Weight Start Date: 10/19/19 Stop Date: 10/26/19 Status: OrderedPrenatal Multivitamins with Folic Acid 1 mg oral tablet 1 tablet, By Mouth, Daily, # 90 tablet, 4 Refills, Maintenance, 12/12/18 11:32:47 EDT, 1 tablet By Mouth Daily Start Date: 12/12/18 Status: Ordered Problem List Condition Effective Dates Status Health Status Informant Anemia(Confirmed) Active Anxiety(Confirmed) Active Arthritis(Confirmed) Active Bipolar disorder(Confirmed) Active Depression(Confirmed) Active Fibromyalgia(Confirmed) Active GERD (gastroesophageal reflux Active disease)(Confirmed) Diabetes, gestational(Confirmed) Active Chronic hypertension(Confirmed) Active Migraines(Confirmed) Active Obesity(Confirmed) Active Panic attacks(Confirmed) Active Social History Social History Type Response Smoking Status Former smoker, quit more radha n 30 days ago entered on: 09/07/19 Sex
--- OUTSIDE RECORDS SUMMARY | 2022-04-01 00:27 | XMS_ITS | Continuity of Care Document ---
:1990 Author Organization [facility] [employer] [facility] Address [address] [place] [phone]- Care Team Providers Name Role Phone Jarrod Sherman MD Primary Care Physician [place] [facility] [place] 10/13/20 - 02/10/21 [facility] [employer] [address] [id number] Attending Physician: Pedro GAMBOA [OB], Anastasia Haynes Referring Physician: Delroy Almanzar MD Allergies, Adverse Reactions, Alerts Substance Reaction Severity Status amoxicillin Rash Active Latex Skin rash Active topiramate Swelling of throat Active Provera Bleeding Active Immunizations Given and Recorded Vaccine Date Status Refusal Reason tetanus/diphtheria/pertussis, acel(Tdap) 10/27/20 Given tetanus/diphtheria/pertussis, acel(Tdap) 10/09/19 Given Measles/Mumps/Rubella Virus Vaccine 10/22/19 Given Medications acetaminophen 325 mg oral tablet 650 mg, By Mouth, Every 4 hours, PRN, (1-3), may give 325mg per patient preference and re-dose with 325mg within 4 hours, if needed. Patient should only receive a total of 650mg of Acetaminophen every 4 hours., # 50 tablet, Refills 0, Tot. Refills 0... Start Date: 12/18/20 Status: Orderedaspirin 81 mg oral delayed release tablet 81 mg, 1, tablet, By Mouth, Daily, # 30 tablet, Refills 0, Tot. Refills 0, Maintenance, 10/23/19 8:29:00 EDT, Route to Pharmacy Electronically, [facility]/pharmacy #[id number], 154.94, cm, 10/23/19 5:18:00 EDT, Height, 97.27, kg, 10/21/19 8:42:00 EDT, Dry Weight Start Date: 10/23/19 Status: Orderedbisacodyl 5 mg oral delayed release tablet 1 tablet = 5 mg, By Mouth, Daily, PRN as needed for constipation, # 20 tablet, 0 Refills, Acute 06/16/21 0:00:00 EST, 11/16/20 9:05:00 EDT, CR Tablet, [facility]/pharmacy #[id number], Partial fill upon patient request if the prescription is for a schedule II opioi... Start Date: 11/16/20 Stop Date: 06/16/21 Status: OrderedDexilant 30 mg oral delayed release capsule 1 capsule = 30 mg, By Mouth, Daily, 0 Refills, Maintenance, 09/05/19 0:12:00 EDT Start Date: 09/05/19 Status: Ordereddocusate sodium 100 mg oral capsule 1 capsule = 100 mg, By Mouth, 2 times a day, # 60 capsule, 0 Refills, Maintenance, 12/18/20 5:20:00 EDT, Capsule, [facility]/pharmacy #[id number], Partial fill upon patient request if the prescription is for a schedule II opioid drug., 154.9, cm, 12/17/20 16:47:00... Start Date: 12/18/20 Status: Orderedferrous sulfate 325 mg oral tablet 1 tablet, By Mouth, 3 times a day, # 90 tablet, 0 Refills, [id number], 154.9, cm, 12/18/20 12:26:00 EDT, Height, 106.7, kg, 12/15/20 14:39:00 EDT, Dry Weight Start Date: 02/06/21 Status: OrderedFreestyle Lite Test Strips See Instructions, [...] 06/16/21 0:00:00 EST, 11/16/20 9:03:00 EDT, Cream, [facility]/pharmacy #[id number], Partial fill upon patient request if the prescription is for a schedule II opioid drug., 1 application Topically... Start Date: 11/16/20 Stop Date: 06/16/21 Status: Orderedibuprofen 800 mg oral tablet 800 mg, 1, tablet, By Mouth, Every 8 hours, PRN, (4-6), may give 400mg per patient preference and re-dose with 400mg within 8 hours if needed. Patient should only receive a total of 800mg of Ibuprofen every 8 hours., # 60 tablet, Refills 0, Tot. Ref... Start Date: 12/18/20 Status: Orderedlabetalol 200 mg oral tablet 1 tablet, By Mouth, 2 times a day, # 60 tablet, 0 Refills, [facility] [id number], 154.9, cm, 12/18/20 12:26:00 EDT, Height, 106.7, kg, 12/15/20 14:39:00 EDT, Dry Weight Start Date: 02/06/21 Status: OrderedLoratadine 10 mg, By Mouth, Daily, Refills 0, Maintenance, 12/18/20 8:35:00 EDT, Partial fill upon patient request if the prescription is for a schedule II opioid drug. Start Date: 12/18/20 Status: OrderedMiraLax oral powder for reconstitution = 17 Gm, By Mouth, Daily, PRN Constipation, dissolve in water or liquid before taking, # 255 Gm, 0 Refills, Maintenance, 12/18/20 8:51:00 EDT, REC Powder, Partial fill upon patient request if the prescription is for a schedule II opioid drug. Start Date: 12/18/20 Status: Orderednorethindrone 0.35 mg oral tablet 1 tablet = 0.35 mg, By Mouth, Daily, # 84 tablet, 0 Refills, Maintenance, 12/18/20 8:37:00 EDT, Tablet, [facility]/pharmacy #[id number], Partial fill upon patient request if the prescription is for a schedule II opioid drug., 154.9, cm, 12/18/20 8:28:00 EDT, Heigh... Start Date: 12/18/20 Status: OrderedPrenatal Multivitamins with Folic Acid 1 [...] II opioid drug. Start Date: 08/18/20 Status: OrderedSlynd 4 mg oral tablet 1 tablet = 4 mg, By Mouth, Daily, # 84 tablet, 0 Refills, Maintenance, 12/18/20 5:21:00 EDT, Tablet,[facility]/pharmacy #[id number], Partial fill upon patient request if the prescription is for a schedule II opioid drug., 154.9, cm, 12/17/20 16:47:00 EDT, Height,... Start Date: 12/18/20 Status: Ordered Problem List Condition Effective Dates [...] attacks(Confirmed) Active PCOS (polycystic ovarian Active syndrome)(Confirmed) hemorrhage(Confirmed) Active Rubella equivocal [ ] MMR Active (Confirmed) 1on Sertraline now, helping and has therapist and [id number] in the morning for nausea and anxiety Social History Social History Type Response Smoking Status Former smoker, quit more radha n 30 days ago entered on: 08/04/20 Sex
--- OUTSIDE RECORDS SUMMARY | 2022-04-01 00:27 | XMS_ITS | Continuity of Care Document ---
:1990 Author Organization [facility] ic Address [address] [place] [id number]- Care Team Providers Name Role Phone Jarrod Sherman MD Primary Care Physician Encounter [facility] [place] Date(s): 10/22/19 - 01/03/[address] [phone]- [facility] Attending Physician: Not on Staff, Attending MD Allergies, Adverse Reactions, Alerts Substance Reaction [...] 10/23/19 8:29:00 EDT, Route to Pharmacy Electronically, [facility]/pharmacy #[id number], 154.94, cm, 10/23/19 5:18:00 EDT, Height, [...] 09/29/19 17:57:00 EDT, Route to Pharmacy Electronically, [facility]/pharmacy #[id number], 154.94, cm, 09/27/19 2:08:00 EDT, Height, [...] 0 Refills, Maintenance, 10/19/19 8:53:00 EDT, Tablet, [facility]/pharmacy #[id number], 154.94, cm, 10/16/19 8:22:00 EDT, Height, [...]
--- OUTSIDE RECORDS SUMMARY | 2022-04-01 00:27 | XMS_ITS | Continuity of Care Document ---
:1990 Author Organization [facility] Address [address] [place] [id number]- Care Team Providers Name Role Phone Jarrod Sherman MD Primary Care Physician [place] [facility] [facility] [place] 02/05/21 [facility] [employer] [facility] [address] [place] [id number] Attending Physician: Kalen Yusuf Admitting Physician: AdmKalen gastelum Referring Physician: Admtr Ar8 Allergies, Adverse Reactions, Alerts Substance Reaction Severity [...] 10/23/19 8:29:00 EDT, Route to Pharmacy Electronically, [facility]/pharmacy #[id number], 154.94, cm, 10/23/19 5:18:00 EDT, Height, 97.27, kg, 10/21/19 8:42:00 EDT, Dry Weight Start Date: 10/23/19 Status: Orderedbisacodyl 5 mg oral delayed release tablet 1 tablet = 5 mg, By Mouth, Daily, PRN as needed for constipation, # 20 tablet, 0 Refills, Acute 06/16/21 0:00:00 EST, 11/16/20 9:05:00 EDT, CR Tablet, [facility]/pharmacy #[id number], Partial fill upon patient request if [...] 0 Refills, Maintenance, 12/18/20 5:20:00 EDT, Capsule, [facility]/pharmacy #[id number], Partial fill upon patient request if the prescription is for a schedule II opioid drug., 154.9, cm, 12/17/20 16:47:00... Start Date: 12/18/20 Status: Orderedferrous sulfate 325 mg oral tablet See Instructions, TAKE 1 TABLET BY MOUTH 3 TIMES A DAY, # 90 tablet, 0 Refills, Maintenance, [id number], 154.9, cm, 12/18/20 12:26:00 EDT, Height, 106.7, kg, 12/15/20 14:39:00 EDT, Dry Weight Start Date: 01/11/21 Status: OrderedFreestyle Lite Test Strips See Instructions, [...] 06/16/21 0:00:00 EST, 11/16/20 9:03:00 EDT, Cream, [facility]/pharmacy #[id number], Partial fill upon patient request if [...] 12/18/20 Status: Orderedlabetalol 200 mg oral tablet See Instructions, TAKE 1 TABLET BY MOUTH TWICE A DAY, # 60 tablet, 0 Refills, Maintenance, [facility] [id number], 154.9, cm, 12/18/20 12:26:00 EDT, Height, 106.7, kg, 12/15/20 14:39:00 EDT, Dry Weight Start Date: 01/11/21 Status: OrderedLoratadine 10 mg, By Mouth, Daily, [...] 0 Refills, Maintenance, 12/18/20 8:37:00 EDT, Tablet, [facility]/pharmacy #[id number], Partial fill upon patient request if [...] Sertraline now, helping and has therapist and [id number] in the morning for nausea and anxiety Social History Social History Type Response Smoking Status Former smoker, quit more radha n 30 days ago entered on: 08/04/20 Sex
--- OUTSIDE RECORDS SUMMARY | 2022-04-01 00:27 | XMS_ITS | Continuity of Care Document ---
:1990 Author Organization [facility] Address [address] [place] [address], [address] [place] [phone]- Care Team Providers Name Role Phone Jarrod Sherman MD Primary Care Physician [place] [facility] [place] 03/20/21 - 04/19/21 [facility] [address], [address] [place] [address]- Allergies, Adverse Reactions, Alerts Substance Reaction Severity Status amoxicillin Rash Active topiramate Swelling of throat Active Provera Bleeding Active Latex Skin rash Active Immunizations Given and Recorded Vaccine Date Status Refusal Reason tetanus/diphtheria/pertussis, acel(Tdap) 10/27/20 Given tetanus/diphtheria/pertussis, acel(Tdap) 10/09/19 Given Measles/Mumps/Rubella Virus Vaccine 10/22/19 Given Medications acetaminophen 325 mg oral tablet 650 mg, 2, tablet, By Mouth, Every 4 hours, PRN, # 50 tablet, Refills 0, Tot. Refills 0, Maintenance, as needed for pain, 03/06/21 15:09:00 EDT, Route to Pharmacy Electronically, [facility]/pharmacy #[id number], Partial fill upon patient request if the prescriptio... Start Date: 03/06/21 Status: OrderedDexilant 30 mg oral delayed release capsule 1 capsule = 30 mg, By Mouth, Daily, 0 Refills, Maintenance, 09/05/19 0:12:00 EDT Start Date: 09/05/19 Status: Orderedferrous gluconate 324 mg oral tablet 1 tablet = 324 mg, By Mouth, 2 times a day, # 100 tablet, 0 Refills, Maintenance, 02/28/21 12:16:00 EDT, Tablet, [facility]/pharmacy #[id number], Partial fill upon patient request if the prescription is for a schedule II opioid drug., 154.94, cm, 02/23/21 10:45:00... Start Date: 02/28/21 Status: Orderedibuprofen 600 mg oral tablet 600 mg, 1, tablet, By Mouth, Every 8 hours, # 50 tablet, Refills 0, Tot. Refills 0, Maintenance, 03/06/21 15:09:00 EDT, Route to Pharmacy Electronically, [facility]/pharmacy #[id number], Partial fill upon patient request if the prescription is for a schedule II op... Start Date: 03/06/21 Status: Orderedlabetalol 200 mg oral tablet 1 tablet, By Mouth, 2 times a day, # 60 tablet, 0 Refills, [facility] [id number], 154.9, cm, 12/18/20 12:26:00 EDT, Height, 106.7, kg, 12/15/20 14:39:00 EDT, Dry Weight Start Date: 02/06/21 Status: OrderedoxyCODONE 5 mg oral tablet 5 mg, 1, tablet, By Mouth, Every 6 hours, PRN, Take as needed if ibuprofen and acetaminophen are nothelping with the pain., # 10 tablet, Refills 0, Tot. Refills 0, Maintenance, as needed for pain, 03/06/21 15:09:00 EDT, Route to Pharmacy Electronical... Start Date: 03/06/21 Status: OrderedSenna By Mouth, 0 Refills, Maintenance, 03/20/21 15:48:00 EDT, Partial fill upon patient request if the prescription is for a schedule II opioid drug. Start Date: 03/20/21 Status: Orderedsertraline 100 mg oral tablet 1 tablet = 100 mg, By Mouth, Daily in AM, 0 Refills, Maintenance, 08/18/20 11:50:00 EST, Partial fill upon patient request if the prescription is for a schedule II opioid drug. Start Date: 08/18/20 Status: Ordered Problem List Condition Effective Dates Status Health Status Informant Anemia(Confirmed) Active Anxiety(Confirmed)1 Active Arthritis(Confirmed) Active Bipolar disorder(Confirmed) Active Carpal tunnel syndrome during Active (Confirmed) Vulvar cyst(Confirmed) Active Depression(Confirmed) Active Fibromyalgia(Confirmed) Active GERD (gastroesophageal reflux Active disease)(Confirmed) Diabetes, gestational(Confirmed) Active Hemorrhoid(Confirmed) Active Hx of preeclampsia, prior , Active currently (Confirmed) History of COVID-19(Confirmed) 06/20/20 Active Chronic hypertension(Confirmed) Active Marijuana use(Confirmed)2 Active Migraines(Confirmed) Active Obesity(Confirmed) Active Panic attacks(Confirmed) Active PCOS (polycystic ovarian Active syndrome)(Confirmed) Wound cellulitis after Active surgery(Confirmed) Rubella equivocal [ ] MMR Active (Confirmed) 1on Sertraline now, helping and has therapist and [id number] in the morning for nausea and anxiety Social History Social History Type Response Smoking Status Former smoker, quit more radha n 30 days ago entered on: 08/04/20 Sex
--- OUTSIDE RECORDS SUMMARY | 2022-04-01 00:27 | XMS_ITS | Continuity of Care Document ---
:1990 Author Organization [facility] Address [address] [place] [address]- Care Team Providers Name Role Phone Jarrod Sherman MD Primary Care Physician Encounter [facility] Date(s): 09/30/19 - 10/01/[address] [address]- [facility] Discharge Disposition: A-D/C Home Attending Physician: Cuco Gilbert MD Admitting Physician: Cuco Gilbert MD Referring Physician: Cuco Gilbert MD Allergies, Adverse Reactions, Alerts Substance Reaction Severity Status amoxicillin Rash Active topiramate Swelling of throat Active Provera Bleeding Active Latex Skin rash Active Medications aspirin 81 mg oral delayed release tablet 81 mg, 1, tablet, By Mouth, Daily, # 30 tablet, Refills 0, Tot. Refills 0, Maintenance, 09/29/19 17:56:00 EDT, Route to Pharmacy Electronically, [facility]/pharmacy #[id number], 154.94, cm, 09/27/19 2:08:00 EDT, Height, 95.9, kg, 09/23/19 17:43:00 EDT, Dry Weight Start Date: 09/29/19 Status: Orderedaspirin 81 mg oral tablet 1 tablet = 81 mg, By Mouth, Daily, 0 Refills, Maintenance, 09/05/19 0:11:00 EDT Start Date: 09/05/19 Status: OrderedCamila = 0.35 mg, By Mouth, Daily, bcp daily, 0 Refills, Maintenance Start Date: 06/04/12 Status: OrderedDexilant 30 mg oral delayed release capsule 1 capsule = 30 mg, By Mouth, Daily, 0 Refills, Maintenance, 09/05/19 0:12:00 EDT Start Date: 09/05/19 Status: Ordereddocusate sodium 100 mg oral capsule 100 mg, 1, capsule, By Mouth, 2 times a day, PRN, # 60 capsule, Refills 0, Tot. Refills 0, Maintenance, for constipation, 09/29/19 17:57:00 EDT, Route to Pharmacy Electronically, [facility]/pharmacy #[id number], 154.94, cm, 09/27/19 2:08:00 EDT, Height, 95.9, kg,... Start Date: 09/29/19 Status: OrderedFerrous Sulfate ER Refills 0, Maintenance, 09/05/19 0:11:00 EDT Start Date: 09/05/19 Status: OrderedFioricet Tablet 2 tablet, By Mouth, Every 4 hours, 0 Refills, Maintenance Start Date: 06/04/12 Status: Orderedlabetalol 100 mg oral tablet 1 tablet = 100 mg, By Mouth, 2 times a day, 0 Refills, Maintenance, 09/05/19 0:12:00 EDT Start Date: 09/05/19 Status: OrderedPrenatal Multivitamins with Folic Acid 1 mg oral tablet 1 tablet, By Mouth, Daily, # 90 tablet, 4 Refills, Maintenance, 12/12/18 11:32:47 EDT, 1 tablet By Mouth Daily Start Date: 12/12/18 Status: OrderedPrilosec OTC = 20 mg, By Mouth, Daily, 0 Refills, Maintenance Start Date: 06/04/12 Status: OrderedZofran 4 mg oral tablet 1 tablet = 4 mg, By Mouth, Every 8 hours, # 9 tablet, 0 Refills, Maintenance, 09/02/18 20:34:39 EDT,Tablet Start Date: 09/02/18 Stop Date: 09/05/18 Status: Ordered Problem List Condition Effective Dates Status Health Status Informant Anemia(Confirmed) Active Anxiety(Confirmed) Active Arthritis(Confirmed) Active Bipolar disorder(Confirmed) Active Depression(Confirmed) Active Fibromyalgia(Confirmed) Active GERD (gastroesophageal reflux Active disease)(Confirmed) Diabetes, gestational(Confirmed) Active Chronic hypertension(Confirmed) Active Migraines(Confirmed) Active Obesity(Confirmed) Active Panic attacks(Confirmed) Active Vital Signs Most recent to oldest [Reference Range]: 1 2 Height 154.94 cm (10/01/19 12:12 AM) Oxygen Saturation [94-100 %] 100 % (10/01/19 12:12 AM) Pulse Rate [55-90 bpm] 73 bpm 76 bpm (10/01/19 1:09 AM) (10/01/19 12:12 AM) Blood Pressure [90-138/55-84 mm Hg] 114/56 mm Hg 132/ 72 mm Hg (10/01/19 1:09 AM) (10/01/19 12:12 AM) Respiratory Rate [16-30 br/min] 18 br/min (10/01/19 12:12 AM) Temperature [96.8-100.4 DegF] 98.0 DegF (10/01/19 12:12 AM) Mode of Delivery (Oxygen) Room air (10/01/19 12:12 AM) Blood pressure sites Arm, right (10/01/19 12:12 AM) Temperature Route Oral (10/01/19 12:12 AM) Social History Social History Type Response Smoking Status Former smoker, quit more radha n 30 days ago entered on: 09/07/19 Sex
--- OUTSIDE RECORDS SUMMARY | 2022-04-01 00:27 | XMS_ITS | Continuity of Care Document ---
:1990 Author Organization [facility] Address [address] [place] [address]- Care Team Providers Name Role Phone Jarrod Sherman MD Primary Care Physician Encounter [facility] Date(s): 11/07/20 - 01/29/21 [facility] [address] [address]- Attending Physician: Pedro GAMBOA [OB], Anastasia Haynes Allergies, Adverse Reactions, Alerts Substance Reaction Severity [...] 10/23/19 8:29:00 EDT, Route to Pharmacy Electronically, [facility]/pharmacy #[id number], 154.94, cm, 10/23/19 5:18:00 EDT, Height, 97.27, kg, 10/21/19 8:42:00 EDT, Dry Weight Start Date: 10/23/19 Status: Orderedbisacodyl 5 mg oral delayed release tablet 1 tablet = 5 mg, By Mouth, Daily, PRN as needed for constipation, # 20 tablet, 0 Refills, Acute 06/16/21 0:00:00 EST, 11/16/20 9:05:00 EDT, CR Tablet, [facility]/pharmacy #[id number], Partial fill upon patient request if [...] 0 Refills, Maintenance, 12/18/20 5:20:00 EDT, Capsule, [facility]/pharmacy #[id number], Partial fill upon patient request if the prescription is for a schedule II opioid drug., 154.9, cm, 12/17/20 16:47:00... Start Date: 12/18/20 Status: Orderedferrous sulfate 325 mg oral tablet See Instructions, TAKE 1 TABLET BY MOUTH 3 TIMES A DAY, # 90 tablet, 0 Refills, Maintenance, [id number], 154.9, cm, 12/18/20 12:26:00 EDT, Height, 106.7, [...] 06/16/21 0:00:00 EST, 11/16/20 9:03:00 EDT, Cream, [facility]/pharmacy #[id number], Partial fill upon patient request if [...] DAY, # 60 tablet, 0 Refills, Maintenance, [facility] [id number], 154.9, cm, 12/18/20 12:26:00 EDT, Height, 106.7, [...] 0 Refills, Maintenance, 12/18/20 8:37:00 EDT, Tablet, [facility]/pharmacy #[id number], Partial fill upon patient request if [...] Sertraline now, helping and has therapist and [id number] in the morning for nausea and anxiety Social History Social History Type Response Smoking Status Former smoker, quit more radha n 30 days ago entered on: 08/04/20 Sex
--- OUTSIDE RECORDS SUMMARY | 2022-04-01 00:27 | XMS_ITS | Continuity of Care Document ---
:1990 Author [facility] Address [address] [place] [address], [address] [place] [address]- Care Team Providers Name Role Phone Jarrod Sherman MD Primary Care Physician En[place] [facility] [place] Date(s): 09/30/20 - [facility] [address], [address] [place] [address]- Allergies, Adverse Reactions, Alerts Substance Reaction Severity [...] 2 Refills, Maintenance, 09/22/20 11:24:00 EDT, CRTablet, [facility]/pharmacy #[id number], Partial fill upon patient request if the prescription is for a schedule II opioid drug., 2 tablet By Mouth Daily at bedtim... Start Date: 09/22/20 Status: Orderedlabetalol 100 mg oral tablet 1 [...] Condition Effective Dates Status Health Status Informant Anxiety(Confirmed)1 Active Arthritis(Confirmed) Active Bipolar disorder(Confirmed) Active Carpal tunnel syndrome during Active (Confirmed) Vulvar cyst(Confirmed) Active Depression(Confirmed) Active Fibromyalgia(Confirmed) Active GERD (gastroesophageal reflux Active disease)(Confirmed) Diabetes, gestational(Confirmed) Active Supervision of high risk , Active antepartum(Confirmed) Hx of preeclampsia, prior , Active currently (Confirmed) History of COVID-19(Confirmed) 06/20/20 Active Chronic hypertension(Confirmed) Active Marijuana use(Confirmed)2 Active Migraines(Confirmed) Active Nausea and vomiting in Active (Confirmed) Obesity(Confirmed) Active Panic attacks(Confirmed) Active PCOS (polycystic ovarian Active syndrome)(Confirmed) Rubella equivocal [ ] MMR Active (Confirmed) 1on Sertraline now, helping and has therapist and [id number] in the morning for nausea and anxiety Social History Social History Type Response Smoking Status Former smoker, quit more radha n 30 days ago entered on: 08/04/20 Sex
--- OUTSIDE RECORDS SUMMARY | 2022-04-01 00:27 | XMS_ITS | Continuity of Care Document ---
:1990 Author Organization [facility] Address [address] [place] [address]- Care Team Providers Name Role Phone Lane GAMBOA, Jarrod Oneil Primary Care Physician Encounter [facility] Date(s): 11/07/20 - 12/28/20 [facility] [address] [address]- Attending Physician: Denise Laws MD Referring Physician: Pedro GAMBOA [OB], Anastasia Haynes Allergies, [...] 10/23/19 8:29:00 EDT, Route to Pharmacy Electronically, [facility]/pharmacy #[id number], 154.94, cm, 10/23/19 5:18:00 EDT, Height, 97.27, kg, 10/21/19 8:42:00 EDT, Dry Weight Start Date: 10/23/19 Status: Orderedbisacodyl 5 mg oral delayed release tablet 1 tablet = 5 mg, By Mouth, Daily, PRN as needed for constipation, # 20 tablet, 0 Refills, Acute 06/16/21 0:00:00 EST, 11/16/20 9:05:00 EDT, CR Tablet, [facility]/pharmacy #[id number], Partial fill upon patient request if [...] 0 Refills, Maintenance, 12/18/20 5:20:00 EDT, Capsule, [facility]/pharmacy #[id number], Partial fill upon patient request if the prescription is for a schedule II opioid drug., 154.9, cm, 12/17/20 16:47:00... Start Date: 12/18/20 Status: Orderedferrous sulfate 325 mg oral tablet 1 tablet = 325 mg, By Mouth, 3 times a day, # 90 tablet, 0 Refills, Maintenance, 12/18/20 5:21:00 EDT, Tablet, [facility]/pharmacy #[id number], Partial fill upon patient request if the prescription is for a schedule II opioid drug., 154.9, cm, 12/17/20 16:47:00 ED... Start Date: 12/18/20 Status: OrderedFreestyle Lite Test Strips See Instructions, [...] 06/16/21 0:00:00 EST, 11/16/20 9:03:00 EDT, Cream, [facility]/pharmacy #[id number], Partial fill upon patient request if [...] Status: Orderedlabetalol 200 mg oral tablet 1 tablet = 200 mg, By Mouth, 2 times a day, # 60 tablet, 0 Refills, Maintenance, 12/18/20 5:20:00 EDT, Tablet, [facility]/pharmacy #[id number], Partial fill upon patient request if the prescription is for a schedule II opioid drug., 154.9, cm, 12/17/20 16:47:00 ED... Start Date: 12/18/20 Status: OrderedLoratadine 10 mg, By Mouth, Daily, [...] 0 Refills, Maintenance, 12/18/20 8:37:00 EDT, Tablet, [facility]/pharmacy #[id number], Partial fill upon patient request if [...] tablet, 0 Refills, Maintenance, 12/18/20 5:21:00 EDT, Tablet,[facility]/pharmacy #[id number], Partial fill upon patient request if [...] Sertraline now, helping and has therapist and [id number] in the morning for nausea and anxiety Social History Social History Type Response Smoking Status Former smoker, quit more radha n 30 days ago entered on: 08/04/20 Sex
--- OUTSIDE RECORDS SUMMARY | 2022-04-01 00:27 | XMS_ITS | Continuity of Care Document ---
:1990 Author [facility] Address [address] [place] [address], [address] [place] [address]- Care Team Providers Name Role Phone Jarrod Sherman MD Primary Care Physician En[place] [facility] [place] Date(s): 03/08/21 - 04/07/21 [facility] [employer] [facility] [address] [place] [address], [address] [place] [phone]- Allergies, Adverse Reactions, Alerts Substance Reaction Severity [...] 03/06/21 15:09:00 EDT, Route to Pharmacy Electronically, [facility]/pharmacy #[id number], Partial fill upon patient request if [...] 0 Refills, Maintenance, 02/28/21 12:16:00 EDT, Tablet, [facility]/pharmacy #[id number], Partial fill upon patient request if the prescription is for a schedule II opioid drug., 154.94, cm, 02/23/21 10:45:00... Start Date: 02/28/21 Status: Orderedibuprofen 600 mg oral tablet 600 mg, 1, tablet, By Mouth, Every 8 hours, # 50 tablet, Refills 0, Tot. Refills 0, Maintenance, 03/06/21 15:09:00 EDT, Route to Pharmacy Electronically, [facility]/pharmacy #[id number], Partial fill upon patient request if the prescription is for a schedule II op... Start Date: 03/06/21 Status: Orderedlabetalol 200 mg oral tablet 1 tablet, By Mouth, 2 times a day, # 60 tablet, 0 Refills, [id number], 154.9, cm, 12/18/20 12:26:00 EDT, Height, 106.7, [...] Sertraline now, helping and has therapist and [id number] in the morning for nausea and anxiety Social History Social History Type Response Smoking Status Former smoker, quit more radha n 30 days ago entered on: 08/04/20 Sex
--- OUTSIDE RECORDS SUMMARY | 2022-04-01 00:27 | XMS_ITS | Continuity of Care Document ---
:1990 Author Organization [facility] Address [address] [place] [address]- Care Team Providers Name Role Phone Lane GAMBOA, Jarrod Oneil Primary Care Physician Encounter [facility] [place] Date(s): 09/04/19 - 09/05/[address] [address]- [facility] Discharge Disposition: A-D/C Home Attending Physician: Grupo Alegre MD Admitting Physician: Grupo Alegre MD Referring Physician: Grupo Alegre MD Allergies, Adverse Reactions, Alerts Substance Reaction Severity Status amoxicillin Active topiramate Active Provera Active Latex Active Medications 27g .5 syringe 27g .5 syringe, See Instructions, # 2 each, Refills 2, Tot. Refills 2, Maintenance, Use to Inject HCG, 01/30/19 11:49:56 EDT, Compound Start Date: 01/30/19 Status: Vedelgx7pl 22g 1.5 syringe 3cc 22g 1.5 syringe, See Instructions, # 2 each, Refills 2, Tot. Refills 2, Maintenance, Use to mixHcg, 01/30/19 11:49:53 EDT, Compound Start Date: 01/30/19 Status: OrderedAldactone 50 mg oral tablet 1 tablet = 50 mg, By Mouth, 2 times a day, # 60 tablet, 0 Refills, Maintenance, Tablet Start Date: 06/04/12 Status: Orderedaspirin 81 mg oral tablet 1 [...] 09/05/19 0:12:00 EDT Start Date: 09/05/19 Status: OrderedFerrous Sulfate ER Refills 0, Maintenance, 09/05/19 0:11:00 EDT Start Date: 09/05/19 Status: OrderedFioricet Tablet 2 tablet, By Mouth, Every 4 hours, 0 Refills, Maintenance Start Date: 06/04/12 Status: Orderedlabetalol 100 mg oral tablet 1 tablet = 100 mg, By Mouth, Daily, 0 Refills, Maintenance, 09/05/19 0:12:00 EDT Start Date: 09/05/19 Status: Orderedletrozole 2.5 mg oral tablet 2 tablets, By Mouth, Daily, Start taking on Day 3 of Cycle, # 10 tablet, 3 Refills, Maintenance, 02/06/19 10:38:14 EDT, Please cancel the Clomiphene Citrate prescription Start Date: 02/06/19 Stop Date: 02/26/19 Status: OrderedPregnyl 05029 u injectable powder for injection = 10,000 units, Subcutaneous Injection, Once, # 1 Doses, 2 Refills, Soft Stop, 01/30/19 11:49:47 EDT, Please call to set up delivery. PT IS SELF PAY Start Date: 01/30/19 Status: OrderedPrenatal Multivitamins with Folic Acid 1 [...] Date: 09/02/18 Stop Date: 09/05/18 Status: Ordered Vital Signs Most recent to oldest 1 2 3 [Reference Range]: Oxygen Saturation [94-100 %] 98 % 97 % 98 % (09/05/19 2:48 AM) (09/05/19 2:33 AM) (09/05/19 2:1 8 AM) Blood Pressure [90-138/55-84 122/60 mm Hg 105/43 mm Hg 138 /59 mm Hg mm Hg] (09/05/19 4:17 AM) (09/05/19 4:03 AM) (09/05/19 3:4 8 AM) Temperature [96.8-100.4 DegF] 98.0 DegF (09/05/19 12:20 AM) Blood pressure sites Arm, left (09/05/19 12:20 AM) Temperature Route Oral (09/05/19 12:20 AM)
--- OUTSIDE RECORDS SUMMARY | 2022-04-01 00:27 | XMS_ITS | Continuity of Care Document ---
:1990 Author Organization [facility] Address [address] [place] [address]- Care Team Providers Name Role Phone Jarrod Sherman MD Primary Care Physician Encounter [facility] [place] Date(s): 09/29/19 - 09/29/[address] [address]- [facility] Discharge Disposition: A-D/C Home Attending Physician: Anastasia Vasquez MD Admitting Physician: Anastasia Vasquez MD Referring Physician: Anastasia Vasquez MD Allergies, Adverse Reactions, Alerts Substance Reaction Severity Status amoxicillin Active topiramate Active Provera Active Latex Active Medications aspirin 81 mg oral delayed release tablet 81 mg, 1, tablet, By Mouth, Daily, # 30 tablet, Refills 0, Tot. Refills 0, Maintenance, 09/29/19 17:56:00 EDT, Route to Pharmacy Electronically, [facility]/pharmacy #[id number], 154.94, cm, 09/27/19 2:08:00 EDT, [...] 09/29/19 17:57:00 EDT, Route to Pharmacy Electronically, [facility]/pharmacy #[id number], 154.94, cm, 09/27/19 2:08:00 EDT, [...] Active Vital Signs Most recent to oldest 1 2 3 [Reference Range]: Oxygen Saturation [94-100 %] 100 % (09/29/19 4:42 PM) Pulse Rate [55-90 bpm] 74 bpm (09/29/19 4:42 PM) Blood Pressure [90-138/55-84 mm 135/74 mm Hg 131/79 mm Hg 135/75 mm Hg Hg] (09/29/19 5:21 PM) (09/29/19 5:06 PM) (09/29/19 4:4 2 PM) Respiratory Rate [16-30 br/min] 18 br/min (09/29/19 4:42 PM) Temperature [96.8-100.4 DegF] 98.3 DegF (09/29/19 4:42 PM) Mode of Delivery (Oxygen) Room air (09/29/19 4:42 PM) Blood pressure sites Arm, right (09/29/19 4:42 PM) Temperature Route Oral (09/29/19 4:42 PM) Social History Social History Type Response Smoking Status Former smoker, quit more radha n 30 days ago entered on: 09/07/19 Sex
--- OUTSIDE RECORDS SUMMARY | 2022-04-01 00:27 | XMS_ITS | Continuity of Care Document ---
:1990 Author Organization [facility] [employer] [facility] Address [address] [place] [address], [address] [place] [id number]- Care Team Providers Name Role Phone Jarrod Sherman MD Primary Care Physician Encounter [facility] [place] Date(s): 06/21/20 - 09/08/20 [facility] [employer] [address] [place] [address], [address] [place] [id number] Attending Physician: Mary Ann Andres MD Referring Physician: Jarrod Sherman MD Allergies, Adverse Reactions, Alerts Substance Reaction [...] 10/23/19 8:29:00 EDT, Route to Pharmacy Electronically, [facility]/pharmacy #[id number], 154.94, cm, 10/23/19 5:18:00 [...] 09/29/19 17:57:00 EDT, Route to Pharmacy Electronically, [facility]/pharmacy #[id number], 154.94, cm, 09/27/19 2:08:00 EDT, Height, [...] 0 Refills, Maintenance, 10/19/19 8:53:00 EDT, Tablet, [facility]/pharmacy #[id number], 154.94, cm, 10/16/19 8:22:00 EDT, Height, [...] Anxiety(Confirmed)1 Active Arthritis(Confirmed) Active Bipolar disorder(Confirmed) Active Constipation(Confirmed) Active Vulvar cyst(Confirmed) Active Depression(Confirmed) Active Fibromyalgia(Confirmed) Active GERD (gastroesophageal reflux Active disease)(Confirmed) Diabetes, gestational(Confirmed) Active Hx of preeclampsia, prior , Active currently (Confirmed) History of COVID-19(Confirmed) 06/20/20 Active Chronic hypertension(Confirmed) Active Marijuana use(Confirmed)2 Active Migraines(Confirmed) Active Obesity(Confirmed) Active Panic attacks(Confirmed) Active PCOS (polycystic ovarian Active syndrome)(Confirmed) 1on Sertraline now, helping and has therapist and [id number] in the morning for nausea and anxiety Social History Social History Type Response Smoking Status Former smoker, quit more radha n 30 days ago entered on: 08/04/20 Sex
--- OUTSIDE RECORDS SUMMARY | 2022-04-01 00:27 | XMS_ITS | Continuity of Care Document ---
:1990 Author Organization [facility] [employer] [facility] Address [address] [place] [address], [address] [place] [id number]- Care Team Providers Name Role Phone Jarrod Sherman MD Primary Care Physician Encounter [facility] [place] Date(s): 12/09/20 - 12/16/20 [facility] [employer] [address], [address] [place] [id number] Attending Physician: Irene Saenz MD Referring Physician: Delroy Almanzar MD Allergies, Adverse [...] 10/23/19 8:29:00 EDT, Route to Pharmacy Electronically, [facility]/pharmacy #[id number], 154.94, cm, 10/23/19 5:18:00 EDT, Height, 97.27, kg, 10/21/19 8:42:00 EDT, Dry Weight Start Date: 10/23/19 Status: Orderedbisacodyl 5 mg oral delayed release tablet 1 tablet = 5 mg, By Mouth, Daily, PRN as needed for constipation, # 20 tablet, 0 Refills, Acute 06/16/21 0:00:00 EST, 11/16/20 9:05:00 EDT, CR Tablet, [facility]/pharmacy #[id number], Partial fill upon patient [...] 2 Refills, Maintenance, 09/22/20 11:24:00 EDT, CRTablet, [facility]/pharmacy #[id number], Partial fill upon patient [...] 06/16/21 0:00:00 EST, 11/16/20 9:03:00 EDT, Cream, [facility]/pharmacy #[id number], Partial fill upon patient [...] Sertraline now, helping and has therapist and [id number] in the morning for nausea and anxiety Vital Signs Most recent to oldest [Reference Range]: 1 Height 154.94 cm (12/09/20 9:13 AM) Weight 105.9 kg (12/09/20 9:13 AM) Body Mass Index [18.5-24.99] 44.11 *>HHI* (12/09/20 9:13 AM) Blood Pressure [90-138/55-84 mm Hg] 134/77 mm Hg (12/09/20 9:13 AM) Blood pressure sites Arm, right (12/09/20 9:13 AM) Weight Obtained Via Standing scale (12/09/20 9:13 AM) Social History Social History Type Response Smoking Status Former smoker, quit more radha n 30 days ago entered on: 08/04/20 Sex
--- OUTSIDE RECORDS SUMMARY | 2022-04-01 00:27 | XMS_ITS | Continuity of Care Document ---
:1990 Author Organization [facility] Address [address] [place] [address], [address] [place] [address]- Care Team Providers Name Role Phone Jarrod Sherman MD Primary Care Physician [place] [facility] [place] [id number] Date(s): 05/15/21 - 06/14/21 [facility] [employer] [facility] [address] [place] [address], [address] [place] [id number] Attending Physician: Kalen Yusuf Admitting Physician: AdmKalen gastelum Referring Physician: Admtr ArFrieda Allergies, Adverse Reactions, Alerts Substance Reaction Severity Status amoxicillin Rash Active topiramate Swelling of throat Active Provera Bleeding Active Latex Skin rash Active Immunizations Given and Recorded Vaccine Date Status Refusal Reason tetanus/diphtheria/pertussis, acel(Tdap) 10/27/20 Given tetanus/diphtheria/pertussis, acel(Tdap) 10/09/19 Given Measles/Mumps/Rubella Virus Vaccine 10/22/19 Given Medications doxycycline hyclate 100 mg oral tablet 1 capsule, By Mouth, Every 12 hours, for 7 days, # 14 capsule, 0 Refills, Acute 06/19/21 13:56:00 EST, 06/12/21 13:56:00 EST, Capsule, [id number], Partial fill upon patient request if the prescription is for a schedule II opioid drug., 154.94,... Start Date: 06/12/21 Stop Date: 06/19/21 Status: OrderedGabapentin By Mouth, 0 Refills, Maintenance, 04/24/21 21:28:00 EST, Partial fill upon patient request if the prescription is for a schedule II opioid drug. Start Date: 04/24/21 Status: Orderedibuprofen 600 mg oral tablet 600 mg, 1, tablet, By Mouth, Every 8 hours, # 50 tablet, Refills 0, Tot. Refills 0, Maintenance, 03/06/21 15:09:00 EDT, Route to Pharmacy Electronically, [facility]/pharmacy #[id number], Partial fill upon patient request if the prescription is for a schedule II op... Start Date: 03/06/21 Status: Orderedlabetalol 200 mg oral tablet 1 tablet, By Mouth, 2 times a day, # 60 tablet, 0 Refills, [id number], 154.9, cm, 12/18/20 12:26:00 EDT, Height, 106.7, kg, 12/15/20 14:39:00 EDT, Dry Weight Start Date: 02/06/21 Status: Orderedsertraline 100 mg oral tablet 1 [...] Sertraline now, helping and has therapist and [id number] in the morning for nausea and anxiety Social History Social History Type Response Smoking Status Former smoker, quit more radha n 30 days ago entered on: 08/04/20 Sex
--- OUTSIDE RECORDS SUMMARY | 2022-04-01 00:27 | XMS_ITS | Continuity of Care Document ---
:1990 Author Organization [facility] ic Address [address] [place] [address]- Care Team Providers Name Role Phone Jarrod Sherman MD Primary Care Physician Encounter [facility] [place] Date(s): 12/22/19 - 01/21/[address] [address]- [facility] Attending Physician: Admtr, [id number] Admitting Physician: Admtr, Kalen Referring Physician: Admtr, [id number] Allergies, Adverse Reactions, Alerts Substance Reaction [...] 10/23/19 8:29:00 EDT, Route to Pharmacy Electronically, [facility]/pharmacy #[id number], 154.94, cm, 10/23/19 5:18:00 [...] 09/29/19 17:57:00 EDT, Route to Pharmacy Electronically, [facility]/pharmacy #[id number], 154.94, cm, 09/27/19 2:08:00 [...] 0 Refills, Maintenance, 10/19/19 8:53:00 EDT, Tablet, [facility]/pharmacy #[id number], 154.94, cm, 10/16/19 8:22:00 [...]
--- OUTSIDE RECORDS SUMMARY | 2022-04-01 00:27 | XMS_ITS | Continuity of Care Document ---
:1990 Author Organization [facility] Address [address] [place] [address]- Care Team Providers Name Role Phone Jarrod Sherman MD Primary Care Physician Encounter [facility] [place] Date(s): 12/14/20 - 01/19/21 [facility] [address] [address] Attending Physician: Pedro GAMBOA [OB], Anastasia Haynes Admitting Physician: Pedro GAMBOA [OB], Anastasia Haynes Referring Physician: Pedro GAMBOA [OB], Anastasia Haynes [...] 10/23/19 8:29:00 EDT, Route to Pharmacy Electronically, [facility]/pharmacy #[id number], 154.94, cm, 10/23/19 5:18:00 EDT, Height, 97.27, kg, 10/21/19 8:42:00 EDT, Dry Weight Start Date: 10/23/19 Status: Orderedbisacodyl 5 mg oral delayed release tablet 1 tablet = 5 mg, By Mouth, Daily, PRN as needed for constipation, # 20 tablet, 0 Refills, Acute 06/16/21 0:00:00 EST, 11/16/20 9:05:00 EDT, CR Tablet, [facility]/pharmacy #[id number], Partial fill upon patient request [...] 0 Refills, Maintenance, 12/18/20 5:20:00 EDT, Capsule, [facility]/pharmacy #[id number], Partial fill upon patient request if the prescription is for a schedule II opioid drug., 154.9, cm, 12/17/20 16:47:00... Start Date: 12/18/20 Status: Orderedferrous sulfate 325 mg oral tablet See Instructions, TAKE 1 TABLET BY MOUTH 3 TIMES A DAY, # 90 tablet, 0 Refills, Maintenance, [id number], 154.9, cm, 12/18/20 12:26:00 EDT, Height, 106.7, [...] 06/16/21 0:00:00 EST, 11/16/20 9:03:00 EDT, Cream, [facility]/pharmacy #[id number], Partial fill upon patient request [...] DAY, # 60 tablet, 0 Refills, Maintenance, [facility] [id number], 154.9, cm, 12/18/20 12:26:00 EDT, Height, 106.7, [...] 0 Refills, Maintenance, 12/18/20 8:37:00 EDT, Tablet, [facility]/pharmacy #[id number], Partial fill upon patient request [...] Sertraline now, helping and has therapist and [id number] in the morning for nausea and anxiety Social History Social History Type Response Smoking Status Former smoker, quit more radha n 30 days ago entered on: 08/04/20 Sex
--- OUTSIDE RECORDS SUMMARY | 2022-04-01 00:27 | XMS_ITS | Continuity of Care Document ---
:1990 Author Organization [facility] Address [address] [place] [address], [address] [place] [address]- Care Team Providers Name Role Phone Jarrod Sheramn MD Primary Care Physician Encounter [facility] [place] Date(s): 11/08/20 - 11/15/20 [facility] [employer] [address], [address] [place] [phone]- Attending Physician: Khoa Sanchez MD Allergies, Adverse Reactions, Alerts Substance Reaction [...] 10/23/19 8:29:00 EDT, Route to Pharmacy Electronically, [facility]/pharmacy #[id number], 154.94, cm, 10/23/19 5:18:00 EDT, [...] 2 Refills, Maintenance, 09/22/20 11:24:00 EDT, CRTablet, [facility]/pharmacy #[id number], Partial fill upon [...] Sertraline now, helping and has therapist and [id number] in the morning for nausea and anxiety Social History Social History Type Response Smoking Status Former smoker, quit more radah n 30 days ago entered on: 08/04/20 Sex
--- OUTSIDE RECORDS SUMMARY | 2022-04-01 00:28 | XMS_ITS | Continuity of Care Document ---
:1990 Author Organization [facility] Address [address] [place] [address]- Care Team Providers Name Role Phone Jarrod Sherman MD Primary Care Physician [place] [facility] [place]20 - 02/01/21 [facility] [address] [address]- Attending Physician: Veto GAMBOA, Denise Quesada Allergies, Adverse Reactions, Alerts Substance Reaction Severity [...] 10/23/19 8:29:00 EDT, Route to Pharmacy Electronically, [facility]/pharmacy #[id number], 154.94, cm, 10/23/19 5:18:00 EDT, Height, 97.27, kg, 10/21/19 8:42:00 EDT, Dry Weight Start Date: 10/23/19 Status: Orderedbisacodyl 5 mg oral delayed release tablet 1 tablet = 5 mg, By Mouth, Daily, PRN as needed for constipation, # 20 tablet, 0 Refills, Acute 06/16/21 0:00:00 EST, 11/16/20 9:05:00 EDT, CR Tablet, [facility]/pharmacy #[id number], Partial fill upon patient request if [...] 0 Refills, Maintenance, 12/18/20 5:20:00 EDT, Capsule, [facility]/pharmacy #[id number], Partial fill upon patient request if the prescription is for a schedule II opioid drug., 154.9, cm, 12/17/20 16:47:00... Start Date: 12/18/20 Status: Orderedferrous sulfate 325 mg oral tablet See Instructions, TAKE 1 TABLET BY MOUTH 3 TIMES A DAY, # 90 tablet, 0 Refills, Maintenance, [facility], 154.9, cm, 12/18/20 12:26:00 EDT, Height, 106.7, [...] 06/16/21 0:00:00 EST, 11/16/20 9:03:00 EDT, Cream, [facility]/pharmacy #[id number], Partial fill upon patient request if [...] DAY, # 60 tablet, 0 Refills, Maintenance, [facility] [id number], 154.9, cm, 12/18/20 12:26:00 EDT, Height, 106.7, [...] 0 Refills, Maintenance, 12/18/20 8:37:00 EDT, Tablet, [facility]/pharmacy #[id number], Partial fill upon patient request if [...] Sertraline now, helping and has therapist and [id number] in the morning for nausea and anxiety Social History Social History Type Response Smoking Status Former smoker, quit more radha n 30 days ago entered on: 08/04/20 Sex
--- OUTSIDE RECORDS SUMMARY | 2022-04-01 00:28 | XMS_ITS | Continuity of Care Document ---
:1990 Author Organization [facility] Address [address] [place] [address]- Care Team Providers Name Role Phone Jarrod Sherman MD Primary Care Physician [place] [facility] [place](s): 11/16/20 - 11/23/20 [facility] [address], [address] [place] [id number] Attending Physician: Pedro GAMBOA [OB], Anastasia [...] 10/23/19 8:29:00 EDT, Route to Pharmacy Electronically, [facility]/pharmacy #[id number], 154.94, cm, 10/23/19 5:18:00 EDT, Height, 97.27, kg, 10/21/19 8:42:00 EDT, Dry Weight Start Date: 10/23/19 Status: Orderedbisacodyl 5 mg oral delayed release tablet 1 tablet = 5 mg, By Mouth, Daily, PRN as needed for constipation, # 20 tablet, 0 Refills, Acute 06/16/21 0:00:00 EST, 11/16/20 9:05:00 EDT, CR Tablet, [facility]/pharmacy #[id number], Partial fill upon patient request [...] 2 Refills, Maintenance, 09/22/20 11:24:00 EDT, CRTablet, [facility]/pharmacy #[id number], Partial fill upon patient request [...] 06/16/21 0:00:00 EST, 11/16/20 9:03:00 EDT, Cream, [facility]/pharmacy #[id number], Partial fill upon patient request [...] Sertraline now, helping and has therapist and [id number] in the morning for nausea and anxiety Social History Social History Type Response Smoking Status Former smoker, quit more radha n 30 days ago entered on: 08/04/20 Sex
--- OUTSIDE RECORDS SUMMARY | 2022-04-01 00:28 | XMS_ITS | Continuity of Care Document ---
:1990 Author [facility] p Address [address] [place] [address], [address] [place] [address]- Care Team Providers Name Role Phone Lane GAMBOA, Jarrod Oneil Primary Care Physician [place] [facility] [place]): 10/05/20 - 11/04/20 [facility] [employer] [facility] [address] [place] [address], [address] [place] [address]- Allergies, Adverse Reactions, Alerts Substance Reaction Severity [...] 2 Refills, Maintenance, 09/22/20 11:24:00 EDT, CRTablet, [facility]/pharmacy #[id number], Partial fill [...] Sertraline now, helping and has therapist and [id number] in the morning for nausea and anxiety Social History Social History Type Response Smoking Status Former smoker, quit more radha n 30 days ago entered on: 08/04/20 Sex
--- OUTSIDE RECORDS SUMMARY | 2022-04-01 00:28 | XMS_ITS | Continuity of Care Document ---
:1990 Author [facility] p Address [address] [place] [address], [address] [place] [address]- Care Team Providers Name Role Phone Jarrod Sherman MD Primary Care Physician En[place] [facility] [place] Date(s): 06/23/21 - 07/23/21 [facility] [address], [address] [place] [id number] Allergies, Adverse Reactions, Alerts Substance Reaction Severity Status amoxicillin Rash Active topiramate Swelling of throat Active Provera Bleeding Active Latex Skin rash Active Immunizations Given and Recorded Vaccine Date Status Refusal Reason tetanus/diphtheria/pertussis, acel(Tdap) 10/27/20 Given tetanus/diphtheria/pertussis, acel(Tdap) 10/09/19 Given Measles/Mumps/Rubella Virus Vaccine 10/22/19 Given Medications Gabapentin By Mouth, 0 Refills, Maintenance, 04/24/21 21:28:00 EST, Partial fill upon patient request if the prescription is for a schedule II opioid drug. Start Date: 04/24/21 Status: Orderedibuprofen 600 mg oral tablet 600 mg, 1, tablet, By Mouth, Every 8 hours, # 50 tablet, Refills 0, Tot. Refills 0, Maintenance, 03/06/21 15:09:00 EDT, Route to Pharmacy Electronically, [facility]/pharmacy #[id number], Partial fill upon patient request if the prescription is for a schedule II op... Start Date: 03/06/21 Status: Orderedlabetalol 200 mg oral tablet 1 tablet, By Mouth, 2 times a day, # 60 tablet, 0 Refills, [facility], 154.9, cm, 12/18/20 12:26:00 EDT, Height, 106.7, [...] Sertraline now, helping and has therapist and [id number] in the morning for nausea and anxiety Social History Social History Type Response Smoking Status Former smoker, quit more radha n 30 days ago entered on: 08/04/20 Sex
--- OUTSIDE RECORDS SUMMARY | 2022-04-01 00:28 | XMS_ITS | Continuity of Care Document ---
:1990 Author [facility] Address [address] [place] [address], [address] [place] [address]- Care Team Providers Name Role Phone Lane GAMBOA, Jarrod Oneil Primary Care Physician [place] [facility] [place] 10/21/20 [facility] [employer] [address] [address] Allergies, Adverse Reactions, Alerts Substance [...] 10/23/19 8:29:00 EDT, Route to Pharmacy Electronically, [facility]/pharmacy #[id number], 154.94, cm, 10/23/19 5:18:00 EDT, [...] 09/29/19 17:57:00 EDT, Route to Pharmacy Electronically, [facility]/pharmacy #[id number], 154.94, cm, 09/27/19 2:08:00 EDT, Height, 95.9, kg,... Start Date: 09/29/19 Status: Ordereddoxylamine-pyridoxine 10 mg-10 mg oral delayed release tablet 2 tablet, By Mouth, Daily at bedtime, # 60 tablet, 2 Refills, Maintenance, 09/22/20 11:24:00 EDT, CRTablet, [facility]/pharmacy #[id number], Partial fill upon patient request [...] Sertraline now, helping and has therapist and [id number] in the morning for nausea and anxiety Social History Social History Type Response Smoking Status Former smoker, quit more radha n 30 days ago entered on: 08/04/20 Sex
--- OUTSIDE RECORDS SUMMARY | 2022-04-01 00:28 | XMS_ITS | Continuity of Care Document ---
:1990 Author Organization [facility] Address [address] [place] [address]- Care Team Providers Name Role Phone Jarrod Sherman MD Primary Care Physician Encounter [facility] Date(s): 12/15/20 - 12/18/[address] [address] Discharge Disposition: A-D/C Home Attending Physician: Denise Laws MD Admitting Physician: Denise Laws MD Referring Physician: Denise Laws MD Allergies, Adverse Reactions, Alerts Substance Reaction [...] Tot. Refills 0... Start Date: 12/18/20 Status: OrderedAcetaminophen Tablet 650 mg, Tablet, By Mouth, Every 4 hours, PRN for Pain , Mild, (1-3), may give 325mg per patient preference and re-dose with 325mg within 4 hours, if needed. Patient should only receive a total of 650mgof Acetaminophen every 4 hours., Routine, 12/16... Start Date: 12/16/20 Stop Date: 12/18/20 Status: Discontinuedaspirin 81 mg oral delayed release tablet 81 mg, 1, tablet, By Mouth, Daily, # 30 tablet, Refills 0, Tot. Refills 0, Maintenance, 10/23/19 8:29:00 EDT, Route to Pharmacy Electronically, [facility]/pharmacy #[id number], 154.94, cm, 10/23/19 5:18:00 EDT, Height, 97.27, kg, 10/21/19 8:42:00 EDT, Dry Weight Start Date: 10/23/19 Status: Orderedbisacodyl 5 mg oral delayed release tablet 1 tablet = 5 mg, By Mouth, Daily, PRN as needed for constipation, # 20 tablet, 0 Refills, Acute 06/16/21 0:00:00 EST, 11/16/20 9:05:00 EDT, CR Tablet, [facility]/pharmacy #[id number], Partial fill upon patient [...] 0 Refills, Maintenance, 12/18/20 5:20:00 EDT, Capsule, [facility]/pharmacy #[id number], Partial fill upon patient request if the prescription is for a schedule II opioid drug., 154.9, cm, 12/17/20 16:47:00... Start Date: 12/18/20 Status: Orderedferrous sulfate 325 mg oral tablet 1 tablet = 325 mg, By Mouth, 3 times a day, # 90 tablet, 0 Refills, Maintenance, 12/18/20 5:21:00 EDT, Tablet, [facility]/pharmacy #[id number], Partial fill upon patient [...] 06/16/21 0:00:00 EST, 11/16/20 9:03:00 EDT, Cream, [facility]/pharmacy #[id number], Partial fill upon patient [...] 0, Tot. Ref... Start Date: 12/18/20 Status: OrderedIbuprofen Tablet 800 mg, Tablet, By Mouth, Every 8 hours, PRN for Pain , Moderate, (4-6), may give 400mg per patient preference and re-dose with 400mg within 8 hours if needed. Patient should only receive a total of 800mg of Ibuprofen every 8 hours., Routine, ... Start Date: 12/16/20 Stop Date: 12/18/20 Status: Discontinuedlabetalol 200 mg oral tablet 1 tablet = 200 mg, By Mouth, 2 times a day, # 60 tablet, 0 Refills, Maintenance, 12/18/20 5:20:00 EDT, Tablet, [facility]/pharmacy #[id number], Partial fill upon patient request if the prescription is for a schedule II opioid drug., 154.9, cm, 12/17/20 16:47:00 ED... Start Date: 12/18/20 Status: OrderedLabetalol Tablet 200 mg, Tablet, By Mouth, 12/18/20 9:00:00 EDT Start Date: 12/18/20 Stop Date: 12/18/20 Status: CompletedLoratadine 10 mg, By Mouth, Daily, Refills 0, [...] 0 Refills, Maintenance, 12/18/20 8:37:00 EDT, Tablet, [facility]/pharmacy #[id number], Partial fill upon patient request if the prescription is for a schedule II opioid drug., 154.9, cm, 12/18/20 8:28:00 EDT, Ki... Start Date: 12/18/20 Status: OrderedPrenatal Multivitamins with [...] tablet, 0 Refills, Maintenance, 12/18/20 5:21:00 EDT, Tablet,[facility]/pharm[facility] #[id number], Partial fill upon patient [...] Sertraline now, helping and has therapist and [id number] in the morning for nausea and anxiety Vital Signs Most recent to oldest [Reference 1 2 3 Range]: Height 154.9 cm 154.9 cm 154.9 cm (12/18/20 12:26 PM) (12/18/20 8:28 AM) (12/17/20 4:47 PM) Weight 102.1 kg 106.7 kg (12/17/20 9:05 AM) (12/15/20 2:39 PM) Oxygen Saturation [94-100 %] 98 % 98 % 98 % (12/18/20 12:26 PM) (12/18/20 8:28 AM) (12/17/20 4:47 PM) Pulse Rate [55-90 bpm] 72 bpm 74 bpm 76 bpm (12/18/20 12:33 PM) (12/18/20 12:26 PM) (12/18/20 8:30 AM) Body Mass Index [18.5-24.99] 44.47 *>HHI* (12/15/20 2:39 PM) Blood Pressure [90-138/55-84 mm 123/61 mm Hg 126/57 mm Hg 136/78 mm Hg Hg] (12/18/20 12:33 PM) (12/18/20 12:26 PM) (12/18/20 8:30 AM) Respiratory Rate [16-30 br/min] 18 br/min 18 br/min 20 br/min (12/18/20 9:30 AM) (12/18/20 9:30 AM) (12/18/20 8:30 A M) Temperature [96.8-100.4 DegF] 98.4 DegF 98.2 DegF 98 .1 DegF (12/18/20 8:28 AM) (12/18/20 12:40 AM) (12/17/20 4:47 PM) Mode of Delivery (Oxygen) Room air Room air Room a ir (12/18/20 12:26 PM) (12/18/20 8:28 AM) (12/17/20 4:47 PM) Blood pressure sites Arm, right Arm, right Arm, left (12/18/20 12:26 PM) (12/18/20 8:28 AM) (12/18/20 4:10 AM) Temperature Route Oral Oral Oral (12/18/20 8:28 AM) (12/18/20 12:40 AM) (12/17/20 4:47 PM) Dry Weight 106.7 kg (12/15/20 2:39 PM) Weight Obtained Via Standing scale (12/17/20 9:05 AM) Social History Social History Type Response Smoking Status Former smoker, quit more radha n 30 days ago entered on: 08/04/20 Sex
--- OUTSIDE RECORDS SUMMARY | 2022-04-01 00:28 | XMS_ITS | Continuity of Care Document ---
:1990 Author Organization [facility] Address [address] [place] [address]- Care Team Providers Name Role Phone Jarrod Sherman MD Primary Care Physician [place] [facility] [place] 10/25/20 - 10/25/[address] [address]- Discharge Disposition: A-D/C Home Attending Physician: Lesly Calle MD Admitting Physician: Lesly Calle MD Referring Physician: Lesly Calle MD Allergies, Adverse Reactions, Alerts Substance Reaction [...] EDT, Route to Pharmacy Electronically, [facility]/pharmacy #[id number], 154.94, cm, 10/23/19 5:18:00 EDT, Height, [...] 09/29/19 17:57:00 EDT, Route to Pharmacy Electronically, [facility]/pharmacy #[id number], 154.94, cm, 09/27/19 2:08:00 EDT, Height, 95.9, kg,... Start Date: 09/29/19 Status: Ordereddoxylamine-pyridoxine 10 mg-10 mg oral delayed release tablet 2 tablet, By Mouth, Daily at bedtime, # 60 tablet, 2 Refills, Maintenance, 09/22/20 11:24:00 EDT, CRTablet, [facility]/pharmacy #[id number], Partial fill upon patient request if the prescription is for a schedule II opioid drug., 2 tablet By Mouth Daily at bedtim... Start Date: 09/22/20 Status: OrderedFioricet Tablet 2 tablet, Tablet, By Mouth, Once, PRN for Headache, Routine, 10/25/20 19:57:00 EDT Notes: Butalbital 50mg, Not to exceed 4000mg of Acetaminophen per 24 hours. 325mg, Caffeine 40mg pertablet Start Date: 10/25/20 Stop Date: 10/25/20 Status: Completedlabetalol 100 mg oral tablet 1 tablet = [...] Sertraline now, helping and has therapist and [id number] in the morning for nausea and anxiety Vital Signs Most recent to oldest 1 2 3 [Reference Range]: Weight 106.6 kg (10/25/20 5:41 PM) Oxygen Saturation [94-100 %] 100 % 100 % 99 % (10/25/20 7:51 PM) (10/25/20 7:36 PM) (10/25/20 6:5 0 PM) Pulse Rate [55-90 bpm] 79 bpm (10/25/20 6:31 PM) Blood Pressure [90-138/55-84 mm 127/72 mm Hg 124/93 mm Hg 122/66 mm Hg Hg] (10/25/20 7:51 PM) (10/25/20 7:36 PM) (10/25/20 7:2 1 PM) Respiratory Rate [16-30 br/min] 18 br/min 18 br/min 18 br/min (10/25/20 9:25 PM) (10/25/20 8:14 PM) (10/25/20 6:3 1 PM) Mode of Delivery (Oxygen) Room air (10/25/20 6:31 PM) Blood pressure sites Arm, right Arm, right Arm, right (10/25/20 7:51 PM) (10/25/20 7:36 PM) (10/25/20 7:2 1 PM) Dry Weight 106.6 kg (10/25/20 5:41 PM) Weight Obtained Via Standing scale (10/25/20 5:41 PM) Dry Weight Obtained Via Standing scale (10/25/20 5:41 PM) Social History Social History Type Response Smoking Status Former smoker, quit more radha n 30 days ago entered on: 08/04/20 Sex
--- OUTSIDE RECORDS SUMMARY | 2022-04-01 00:28 | XMS_ITS | Continuity of Care Document ---
:1990 Author Organization [facility] Address [address] [place] [address], [address] [place] [address]- Care Team Providers Name Role Phone Jarrod Sherman MD Primary Care Physician [place] [facility] [place] 05[place] [facility] [address] [place] [address], [address] [place] [address] [address] Attending Physician: Gabriella Camacho MD Allergies, Adverse Reactions, Alerts Substance Reaction Severity Status amoxicillin Rash Active topiramate Swelling of throat Active Provera Bleeding Active Latex Skin rash Active Immunizations Given and Recorded Vaccine Date Status Refusal Reason tetanus/diphtheria/pertussis, acel(Tdap) 10/27/20 Given tetanus/diphtheria/pertussis, acel(Tdap) 10/09/19 Given Measles/Mumps/Rubella Virus Vaccine 10/22/19 Given Medications doxycycline monohydrate 100 mg oral capsule 1 capsule = 100 mg, By Mouth, 2 times a day, for 14 days, # 28 capsule, 0 Refills, Acute 05/29/21 15:59:00 EST, 05/15/21 15:59:00 EST, Capsule, [id number], Partial fill upon patient request if the prescription is for a schedule II opioid drug.... Start Date: 05/15/21 Stop Date: 05/29/21 Status: Ordereddoxycycline monohydrate 100 mg oral capsule 1 capsule = 100 mg, By Mouth, 2 times a day, for 14 days, # 28 capsule, 0 Refills, Acute 06/12/21 15:59:00 EST, 05/29/21 15:59:00 EST, Capsule, [id number], Partial fill upon patient request if the prescription is for a schedule II opioid drug.... Start Date: 05/29/21 Stop Date: 06/12/21 Status: OrderedGabapentin By Mouth, 0 Refills, Maintenance, 04/24/21 21:28:00 EST, Partial fill upon patient request if the prescription is for a schedule II opioid drug. Start Date: 04/24/21 Status: Orderedibuprofen 600 mg oral tablet 600 mg, 1, tablet, By Mouth, Every 8 hours, # 50 tablet, Refills 0, Tot. Refills 0, Maintenance, 03/06/21 15:09:00 EDT, Route to Pharmacy Electronically, [facility]/pharmacy #[id number], Partial fill upon patient request if the prescription is for a schedule II op... Start Date: 03/06/21 Status: Orderedlabetalol 200 mg oral tablet 1 tablet, By Mouth, 2 times a day, # 60 tablet, 0 Refills, [facility] 04103, 154.9, cm, 12/18/20 12:26:00 EDT, Height, 106.7, kg, 12/15/20 14:39:00 EDT, Dry Weight Start Date: 02/06/21 Status: OrderedmetroNIDAZOLE 500 mg oral tablet 1 tablet = 500 mg, By Mouth, Every 12 hours, for 14 days, # 28 tablet, 0 Refills, Acute 05/29/21 14:27:00 EST, 05/15/21 14:27:00 EST, Tablet, [facility]/pharmacy #[id number], Partial fill upon patient request if the prescription is for a schedule II opioid drug.,... Start Date: 05/15/21 Stop Date: 05/29/21 Status: Orderedsertraline 100 mg oral tablet 1 [...] Sertraline now, helping and has therapist and [id number] in the morning for nausea and anxiety Social History Social History Type Response Smoking Status Former smoker, quit more radha n 30 days ago entered on: 08/04/20 Sex
--- OUTSIDE RECORDS SUMMARY | 2022-04-01 00:28 | XMS_ITS | Continuity of Care Document ---
:1990 Author Organization [facility] ic Address [address] [place] [address]- Care Team Providers Name Role Phone Jarrod Sherman MD Primary Care Physician [place] [facility] [place] 06/[place] - 08/06/[address] [address]- Attending Physician: Not on Staff, Attending MD [...] 10/23/19 8:29:00 EDT, Route to Pharmacy Electronically, [facility]/pharmacy #[id number], 154.94, cm, 10/23/19 5:18:00 EDT, [...] 09/29/19 17:57:00 EDT, Route to Pharmacy Electronically, [facility]/pharmacy #[id number], 154.94, cm, 09/27/19 2:08:00 EDT, [...] 0 Refills, Maintenance, 10/19/19 8:53:00 EDT, Tablet, [facility]/pharmacy #[id number], 154.94, cm, 10/16/19 8:22:00 EDT, [...] Sertraline now, helping and has therapist and [id number] in the morning for nausea and anxiety Social History Social History Type Response Smoking Status Former smoker, quit more radha n 30 days ago entered on: 08/04/20 Sex
--- OUTSIDE RECORDS SUMMARY | 2022-04-01 00:28 | XMS_ITS | Continuity of Care Document ---
:1990 Author Organization [facility] Address [address] [place] [address], [address] [place] [address]- Care Team Providers Name Role Phone Jarrod Sherman MD Primary Care Physician Encounter [facility] [place] Date(s): 11/02/20 - 11/09/20 [facility] [employer] [address], [address] [place] [address] Attending Physician: Denise Laws MD Referring Physician: Jarrod Sherman MD Allergies, [...] 8:29:00 EDT, Route to Pharmacy Electronically, [facility]/pharmacy #[id number], 154.94, cm, 10/23/19 5:18:00 EDT, [...] Refills, Maintenance, 09/22/20 11:24:00 EDT, CRTablet, [facility]/pharmacy #[id number], Partial fill upon patient request [...] Sertraline now, helping and has therapist and [id number] in the morning for nausea and anxiety Social History Social History Type Response Smoking Status Former smoker, quit more radha n 30 days ago entered on: 08/04/20 Sex
--- OUTSIDE RECORDS SUMMARY | 2022-04-01 00:28 | XMS_ITS | Continuity of Care Document ---
:1990 Author Organization [facility] Address [address] [place] [address], [address] [place] [address]- Care Team Providers Name Role Phone Jarrod Sherman MD Primary Care Physician [place] [facility] [place](s[place] 03/23/21 - 04/22/21 [facility] [facility] [address] [place] [address], [address] [place] [id number] Attending Physician: Kalen Yusuf Admitting Physician: AdmtrKalen Referring Physician: AdmtrKalen Allergies, Adverse Reactions, Alerts Substance Reaction Severity [...] 03/06/21 15:09:00 EDT, Route to Pharmacy Electronically, [facility]/pharmacy #[id number], Partial fill upon patient request if the [...] 0 Refills, Maintenance, 02/28/21 12:16:00 EDT, Tablet, [facility]/pharmacy #[id number], Partial fill upon patient request if the prescription is for a schedule II opioid drug., 154.94, cm, 02/23/21 10:45:00... Start Date: 02/28/21 Status: Orderedibuprofen 600 mg oral tablet 600 mg, 1, tablet, By Mouth, Every 8 hours, # 50 tablet, Refills 0, Tot. Refills 0, Maintenance, 03/06/21 15:09:00 EDT, [id number], Partial fill upon patient request if the prescription is for a schedule II op... Start Date: 03/06/21 Status: Orderedlabetalol 200 mg oral tablet 1 tablet, By Mouth, 2 times a day, # 60 tablet, 0 Refills, [facility] ST[facility] [id number], 154.9, cm, 12/18/20 12:26:00 EDT, Height, 106.7, [...] Sertraline now, helping and has therapist and [id number] in the morning for nausea and anxiety Social History Social History Type Response Smoking Status Former smoker, quit more radha n 30 days ago entered on: 08/04/20 Sex
--- OUTSIDE RECORDS SUMMARY | 2022-04-01 00:28 | XMS_ITS | Continuity of Care Document ---
:1990 Author Organization [facility] Address [address] [place] [address], [address] [place] [address]- Care Team Providers Name Role Phone Lane GAMBOA, Jarrod Oneil Primary Care Physician En[place] [facility] [place] Date(s): 10/25/20 - 11/24/20 [facility] [employer] [facility] [address] [place] [address], [address] [place] [address]- Allergies, Adverse Reactions, Alerts Substance Reaction Severity [...] 10/23/19 8:29:00 EDT, Route to Pharmacy Electronically, [facility]/pharmacy #[id number], 154.94, cm, 10/23/19 5:18:00 EDT, Height, 97.27, kg, 10/21/19 8:42:00 EDT, Dry Weight Start Date: 10/23/19 Status: Orderedbisacodyl 5 mg oral delayed release tablet 1 tablet = 5 mg, By Mouth, Daily, PRN as needed for constipation, # 20 tablet, 0 Refills, Acute 06/16/21 0:00:00 EST, 11/16/20 9:05:00 EDT, CR Tablet, [facility]/pharmacy #[id number], Partial fill upon patient request [...] 2 Refills, Maintenance, 09/22/20 11:24:00 EDT, CRTablet, [facility]/pharmacy #[id number], Partial fill upon patient request [...] 06/16/21 0:00:00 EST, 11/16/20 9:03:00 EDT, Cream, [facility]/pharmacy #[id number], Partial fill upon patient request [...] Sertraline now, helping and has therapist and [id number] in the morning for nausea and anxiety Social History Social History Type Response Smoking Status Former smoker, quit more radha n 30 days ago entered on: 08/04/20 Sex
--- OUTSIDE RECORDS SUMMARY | 2022-04-01 00:28 | XMS_ITS | Continuity of Care Document ---
:1990 Author Organization [facility] [employer] [facility] Address [address] [place] [address]- Care Team Providers Name Role Phone Jarrod Sherman MD Primary Care Physician Encounter [facility] [place] Date(s): 10/01/20 - 01/29/21 [facility] [employer] [address] [address] Attending Physician: Irene Saenz MD Referring Physician: [...] EDT, Route to Pharmacy Electronically, [facility]/pharmacy #[id number], 154.94, cm, 10/23/19 5:18:00 EDT, Height, 97.27, kg, 10/21/19 8:42:00 EDT, Dry Weight Start Date: 10/23/19 Status: Orderedbisacodyl 5 mg oral delayed release tablet 1 tablet = 5 mg, By Mouth, Daily, PRN as needed for constipation, # 20 tablet, 0 Refills, Acute 06/16/21 0:00:00 EST, 11/16/20 9:05:00 EDT, CR Tablet, [facility]/pharmacy #[id number], Partial fill upon patient request [...] Maintenance, 12/18/20 5:20:00 EDT, Capsule, [facility]/pharmacy #[id number], Partial fill upon patient request if the prescription is for a schedule II opioid drug., 154.9, cm, 12/17/20 16:47:00... Start Date: 12/18/20 Status: Orderedferrous sulfate 325 mg oral tablet See Instructions, TAKE 1 TABLET BY MOUTH 3 TIMES A DAY, # 90 tablet, 0 Refills, Maintenance, [id number], 154.9, cm, 12/18/20 12:26:00 EDT, Height, 106.7, [...] EST, 11/16/20 9:03:00 EDT, Cream, [facility]/pharmacy #[id number], Partial fill upon patient request [...] 60 tablet, 0 Refills, Maintenance, [facility] [id number], 154.9, cm, 12/18/20 12:26:00 EDT, Height, 106.7, [...] Maintenance, 12/18/20 8:37:00 EDT, Tablet, [facility]/pharmacy #[id number], Partial fill upon patient request [...] Sertraline now, helping and has therapist and [id number] in the morning for nausea and anxiety Social History Social History Type Response Smoking Status Former smoker, quit more radha n 30 days ago entered on: 08/04/20 Sex
--- OUTSIDE RECORDS SUMMARY | 2022-04-01 00:28 | XMS_ITS | Continuity of Care Document ---
:1990 Author Organization [facility] ic Address [address] [place] [address]- Care Team Providers Name Role Phone Jarrod Sherman MD Primary Care Physician Encounter [facility] [place] Date(s): 10/23/19 - 12/02/[address] [address] Attending Physician: Not on Staff, Attending MD [...] 10/23/19 8:29:00 EDT, Route to Pharmacy Electronically, [facility]/pharmacy #[id number], 154.94, cm, 10/23/19 5:18:00 EDT, Height, [...] 09/29/19 17:57:00 EDT, Route to Pharmacy Electronically, [facility]/pharmacy #[id number], 154.94, cm, 09/27/19 2:08:00 EDT, Height, [...] 0 Refills, Maintenance, 10/19/19 8:53:00 EDT, Tablet, [facility]/pharmacy #[id number], 154.94, cm, 10/16/19 8:22:00 EDT, Height, [...]
--- OUTSIDE RECORDS SUMMARY | 2022-04-01 00:28 | XMS_ITS | Continuity of Care Document ---
:1990 Author Organization [facility] Address [address] [place] [address]- Care Team Providers Name Role Phone Jarrod Sherman MD Primary Care Physician [place] [facility] [place] 12/06/20 - 12/06/[address] [address]- Discharge Disposition: A-D/C Home Attending Physician: Pedro GAMBOA [OB], Anastasia Haynes [...] 10/23/19 8:29:00 EDT, Route to Pharmacy Electronically, [facility]/pharmacy #[id number], 154.94, cm, 10/23/19 5:18:00 EDT, Height, 97.27, kg, 10/21/19 8:42:00 EDT, Dry Weight Start Date: 10/23/19 Status: Orderedbisacodyl 5 mg oral delayed release tablet 1 tablet = 5 mg, By Mouth, Daily, PRN as needed for constipation, # 20 tablet, 0 Refills, Acute 06/16/21 0:00:00 EST, 11/16/20 9:05:00 EDT, CR Tablet, [facility]/pharmacy #[id number], Partial fill upon patient [...] 2 Refills, Maintenance, 09/22/20 11:24:00 EDT, CRTablet, [facility]/pharmacy #[id number], Partial fill upon patient [...] 06/16/21 0:00:00 EST, 11/16/20 9:03:00 EDT, Cream, [facility]/pharmacy #[id number], Partial fill upon patient [...] Sertraline now, helping and has therapist and [id number] in the morning for nausea and anxiety Social History Social History Type Response Smoking Status Former smoker, quit more radha n 30 days ago entered on: 08/04/20 Sex
--- OUTSIDE RECORDS SUMMARY | 2022-04-01 00:29 | XMS_ITS | Continuity of Care Document ---
:1989 Author Organization [facility] Address [address] [place] [address]- Care Team Providers Name Role Phone Lane GAMBOA, Jarrod Oneil Primary Care Physician Encounter [facility] [place] Date(s): 12/09/20 - 01/21/[address] [address]- Attending Physician: Denise Laws MD Referring Physician: Irene Saenz MD Allergies, Adverse Reactions, Alerts Substance Reaction [...] 10/23/19 8:29:00 EDT, Route to Pharmacy Electronically, [facility]/pharmacy #[id number], 154.94, cm, 10/23/19 5:18:00 EDT, Height, 97.27, kg, 10/21/19 8:42:00 EDT, Dry Weight Start Date: 10/23/19 Status: Orderedbisacodyl 5 mg oral delayed release tablet 1 tablet = 5 mg, By Mouth, Daily, PRN as needed for constipation, # 20 tablet, 0 Refills, Acute 06/16/21 0:00:00 EST, 11/16/20 9:05:00 EDT, CR Tablet, [facility]/pharmacy #[id number], Partial fill upon patient request [...] 0 Refills, Maintenance, 12/18/20 5:20:00 EDT, Capsule, [facility]/pharmacy #[id number], Partial fill upon patient request if the prescription is for a schedule II opioid drug., 154.9, cm, 12/17/20 16:47:00... Start Date: 12/18/20 Status: Orderedferrous sulfate 325 mg oral tablet See Instructions, TAKE 1 TABLET BY MOUTH 3 TIMES A DAY, # 90 tablet, 0 Refills, Maintenance, [id number], 154.9, cm, 12/18/20 12:26:00 EDT, Height, 106.7, [...] 06/16/21 0:00:00 EST, 11/16/20 9:03:00 EDT, Cream, [facility]/pharmacy #[id number], Partial fill upon patient request [...] DAY, # 60 tablet, 0 Refills, Maintenance, [facility] [id number], 154.9, cm, 12/18/20 12:26:00 EDT, Height, 106.7, [...] 0 Refills, Maintenance, 12/18/20 8:37:00 EDT, Tablet, [id number], Partial fill upon patient request [...] Sertraline now, helping and has therapist and [id number] in the morning for nausea and anxiety Social History Social History Type Response Smoking Status Former smoker, quit more radha n 30 days ago entered on: 08/04/20 Sex
--- OUTSIDE RECORDS SUMMARY | 2022-04-01 00:29 | XMS_ITS | Continuity of Care Document ---
:1990 Author Organization [facility] [employer] [facility] Address [address] [place] [address]- Care Team Providers Name Role Phone Jarrod Sherman MD Primary Care Physician En[place] [facility] [place] Date(s): 12/01/20 - 12/08/20 [facility] [employer] [address] [address] Attending Physician: Pedro GAMBOA [OB], Anastasia Haynes [...] 8:29:00 EDT, Route to Pharmacy Electronically, [facility]/pharmacy #[id number], 154.94, cm, 10/23/19 5:18:00 EDT, Height, 97.27, kg, 10/21/19 8:42:00 EDT, Dry Weight Start Date: 10/23/19 Status: Orderedbisacodyl 5 mg oral delayed release tablet 1 tablet = 5 mg, By Mouth, Daily, PRN as needed for constipation, # 20 tablet, 0 Refills, Acute 06/16/21 0:00:00 EST, 11/16/20 9:05:00 EDT, CR Tablet, [facility]/pharmacy #[id number], Partial fill upon patient request if [...] Refills, Maintenance, 09/22/20 11:24:00 EDT, CRTablet, [facility]/pharmacy #[id number], Partial fill upon patient request if [...] 0:00:00 EST, 11/16/20 9:03:00 EDT, Cream, [facility]/pharmacy #[id number], Partial fill upon patient request if [...] Sertraline now, helping and has therapist and [id number] in the morning for nausea and anxiety Social History Social History Type Response Smoking Status Former smoker, quit more radha n 30 days ago entered on: 08/04/20 Sex
--- OUTSIDE RECORDS SUMMARY | 2022-04-01 00:29 | XMS_ITS | Continuity of Care Document ---
:1990 Author Organization [facility] ic Address [address] [place] [address]- Care Team Providers Name Role Phone Jarrod Sherman MD Primary Care Physician En[place] [facility] [place] Date(s): 12/01/20 - 12/31/[address] [address] Allergies, Adverse Reactions, Alerts Substance [...] 8:29:00 EDT, Route to Pharmacy Electronically, [facility]/pharmacy #[id number], 154.94, cm, 10/23/19 5:18:00 EDT, Height, 97.27, kg, 10/21/19 8:42:00 EDT, Dry Weight Start Date: 10/23/19 Status: Orderedbisacodyl 5 mg oral delayed release tablet 1 tablet = 5 mg, By Mouth, Daily, PRN as needed for constipation, # 20 tablet, 0 Refills, Acute 06/16/21 0:00:00 EST, 11/16/20 9:05:00 EDT, CR Tablet, [facility]/pharmacy #[id number], Partial fill upon patient request [...] Refills, Maintenance, 12/18/20 5:20:00 EDT, Capsule, [facility]/pharmacy #[id number], Partial fill upon patient request if the prescription is for a schedule II opioid drug., 154.9, cm, 12/17/20 16:47:00... Start Date: 12/18/20 Status: Orderedferrous sulfate 325 mg oral tablet 1 tablet = 325 mg, By Mouth, 3 times a day, # 90 tablet, 0 Refills, Maintenance, 12/18/20 5:21:00 EDT, Tablet, [facility]/pharmacy #[id number], Partial fill upon patient request [...] 0:00:00 EST, 11/16/20 9:03:00 EDT, Cream, [facility]/pharmacy #[id number], Partial fill upon patient request [...] 0 Refills, Maintenance, 12/18/20 5:20:00 EDT, Tablet, [facility]/pharmacy #[id number], Partial fill upon patient request [...] Refills, Maintenance, 12/18/20 8:37:00 EDT, Tablet, [facility]/pharmacy #[id number], Partial fill upon patient request [...] tablet, 0 Refills, Maintenance, 12/18/20 5:21:00 EDT, Tablet,[facility]/pharmacy #[id number], Partial fill upon patient request [...] Sertraline now, helping and has therapist and [id number] in the morning for nausea and anxiety Social History Social History Type Response Smoking Status Former smoker, quit more radha n 30 days ago entered on: 08/04/20 Sex
--- OUTSIDE RECORDS SUMMARY | 2022-04-01 00:29 | XMS_ITS | Continuity of Care Document ---
:1989 Author Organization [facility] [employer] [facility] Address [address] [place] [address]- Care Team Providers Name Role Phone Jarrod Sherman MD Primary Care Physician [place] [facility] [place]24[place]20 - 12/01/20 [facility] [place] [employer] [address] [address] Attending Physician: Pedro GAMBOA [OB], Anastasia [...] 8:29:00 EDT, Route to Pharmacy Electronically, [facility]/pharmacy #[id number], 154.94, cm, 10/23/19 5:18:00 EDT, Height, 97.27, kg, 10/21/19 8:42:00 EDT, Dry Weight Start Date: 10/23/19 Status: Orderedbisacodyl 5 mg oral delayed release tablet 1 tablet = 5 mg, By Mouth, Daily, PRN as needed for constipation, # 20 tablet, 0 Refills, Acute 06/16/21 0:00:00 EST, 11/16/20 9:05:00 EDT, CR Tablet, [facility]/pharmacy #[id number], Partial fill upon patient [...] 2 Refills, Maintenance, 09/22/20 11:24:00 EDT, CRTablet, [facility]/pharmacy #[id number], Partial fill upon patient [...] 0:00:00 EST, 11/16/20 9:03:00 EDT, Cream, [facility]/pharmacy #[id number], Partial fill upon patient [...] Sertraline now, helping and has therapist and [id number] in the morning for nausea and anxiety Social History Social History Type Response Smoking Status Former smoker, quit more radha n 30 days ago entered on: 08/04/20 Sex
--- OUTSIDE RECORDS SUMMARY | 2022-04-01 00:29 | XMS_ITS | Continuity of Care Document ---
:1990 Author Organization [facility] Address [address] [place] [address]- Care Team Providers Name Role Phone Lane GAMBOA, Jarrod Oneil Primary Care Physician En[place] [facility] [place] Date(s): 09/27/19 - 09/27/[address] [address]- [facility] Discharge Disposition: A-D/C Home Attending Physician: Gabriella Camacho MD Admitting Physician: Gabriella Camacho MD Referring Physician: Gabriella Camacho MD Allergies, Adverse Reactions, Alerts Substance Reaction Severity Status amoxicillin Active topiramate Active Provera Active Latex Active Medications aspirin 81 mg oral tablet 1 tablet = [...] Fibromyalgia(Confirmed) Active GERD (gastroesophageal reflux Active disease)(Confirmed) Chronic hypertension(Confirmed) Active Migraines(Confirmed) Active Obesity(Confirmed) Active Panic attacks(Confirmed) Active Procedures Procedure Date Related Diagnosis Body Site Status Anal Cyst w/ biopsy Complete d Vital Signs Most recent to oldest [Reference Range]: 1 2 Height 154.94 cm (09/27/19 2:08 AM) Oxygen Saturation [94-100 %] 100 % (09/27/19 2:08 AM) Pulse Rate [55-90 bpm] 72 bpm (09/27/19 2:08 AM) Blood Pressure [90-138/55-84 mm Hg] 112/51 mm Hg 133/ 79 mm Hg (09/27/19 4:38 AM) (09/27/19 2:08 AM) Respiratory Rate [16-30 br/min] 20 br/min (09/27/19 2:08 AM) Temperature [96.8-100.4 DegF] 98.1 DegF (09/27/19 2:08 AM) Mode of Delivery (Oxygen) Room air (09/27/19 2:08 AM) Blood pressure sites Arm, right (09/27/19 2:08 AM) Temperature Route Oral (09/27/19 2:08 AM) Social History Social History Type Response Smoking Status Former smoker, quit more radha n 30 days ago entered on: 09/07/19 Sex
--- OUTSIDE RECORDS SUMMARY | 2022-04-01 00:29 | XMS_ITS | Continuity of Care Document ---
:1989 Author Organization [facility] [employer] [facility] Address [address] [place] [address], [address] [place] [address]- Care Team Providers Name Role Phone Jarrod Sherman MD Primary Care Physician Encounter [facility] [place] Date(s): 05/15/21 - 05/22/21 [facility] [employer] [address], [address] [place] [id number] Attending Physician: Denise Laws MD Allergies, Adverse Reactions, [...] 03/06/21 15:09:00 EDT, Route to Pharmacy Electronically, [facility]/pharmacy #[id number], Partial fill upon patient request if the prescription is for a schedule II op... Start Date: 03/06/21 Status: Orderedlabetalol 200 mg oral tablet 1 tablet, By Mouth, 2 times a day, # 60 tablet, 0 Refills, [facility]228, 154.9, cm, 12/18/20 12:26:00 EDT, Height, 106.7, kg, 12/15/20 14:39:00 EDT, Dry Weight Start Date: 02/06/21 Status: OrderedmetroNIDAZOLE 500 mg oral tablet 1 tablet = 500 mg, By Mouth, Every 12 hours, for 14 days, # 28 tablet, 0 Refills, Acute 05/29/21 14:27:00 EST, 05/15/21 14:27:00 EST, Tablet, [facility]/pharmacy #[id number], Partial fill upon patient request [...] Sertraline now, helping and has therapist and [id number] in the morning for nausea and anxiety Social History Social History Type Response Smoking Status Former smoker, quit more radha n 30 days ago entered on: 08/04/20 Sex
--- OUTSIDE RECORDS SUMMARY | 2022-04-01 00:29 | XMS_ITS | Continuity of Care Document ---
:1989 Author Organization [facility] Address [address] [place] [address]- Care Team Providers Name Role Phone Jarrod Sherman MD Primary Care Physician [place] [facility] 12/[place]/20 - 12/31/20 [facility] [address] [place] [address] Attending Physician: Kalen Yusuf Admitting Physician: AdmtrKalen Referring Physician: Admtr, Ar8 Allergies, Adverse Reactions, [...] 8:29:00 EDT, Route to Pharmacy Electronically, [facility]/pharmacy #[id number], 154.94, cm, 10/23/19 5:18:00 EDT, Height, 97.27, kg, 10/21/19 8:42:00 EDT, Dry Weight Start Date: 10/23/19 Status: Orderedbisacodyl 5 mg oral delayed release tablet 1 tablet = 5 mg, By Mouth, Daily, PRN as needed for constipation, # 20 tablet, 0 Refills, Acute 06/16/21 0:00:00 EST, 11/16/20 9:05:00 EDT, CR Tablet, [facility]/pharmacy #[id number], Partial fill upon patient request [...] Refills, Maintenance, 12/18/20 5:20:00 EDT, Capsule, [facility]/pharmacy #[id number], Partial fill upon patient request if the prescription is for a schedule II opioid drug., 154.9, cm, 12/17/20 16:47:00... Start Date: 12/18/20 Status: Orderedferrous sulfate 325 mg oral tablet 1 tablet = 325 mg, By Mouth, 3 times a day, # 90 tablet, 0 Refills, Maintenance, 12/18/20 5:21:00 EDT, Tablet, [id number], Partial fill upon [...] 0:00:00 EST, 11/16/20 9:03:00 EDT, Cream, [facility]/pharmacy #[id number], Partial fill upon patient request [...] 0 Refills, Maintenance, 12/18/20 5:20:00 EDT, Tablet, [facility]/pharmacy #0373, Partial fill upon patient request [...] Refills, Maintenance, 12/18/20 8:37:00 EDT, Tablet, [facility]/pharmacy #[id number], Partial fill upon patient request [...] tablet, 0 Refills, Maintenance, 12/18/20 5:21:00 EDT, Tablet,[facility]/pharmacy #[id number], Partial fill upon patient request [...] Sertraline now, helping and has therapist and [id number] in the morning for nausea and anxiety Social History Social History Type Response Smoking Status Former smoker, quit more radha n 30 days ago entered on: 08/04/20 Sex
--- OUTSIDE RECORDS SUMMARY | 2022-04-01 00:29 | XMS_ITS | Continuity of Care Document ---
:1990 Author Organization [facility] Address [address] [place] [address]- Care Team Providers Name Role Phone Jarrod Sherman MD Primary Care Physician [place] [facility] [place] 04/03/[address] [address]- [facility] Encounter Diagnosis Tinnitus (Final) - 04/03/20 Ear pain (Final) - 04/03/20 Discharge Disposition: A-D/C Home Attending Physician: Molly Caballero MD Admitting Physician: Molly Caballero MD Referring Physician: Not on Staff, Referring MD Allergies, Adverse Reactions, Alerts Substance Reaction [...] 10/23/19 8:29:00 EDT, Route to Pharmacy Electronically, [facility]/pharmacy #[id number], 154.94, cm, 10/23/19 5:18:00 [...] 09/29/19 17:57:00 EDT, Route to Pharmacy Electronically, [facility]/pharmacy #[id number], 154.94, cm, 09/27/19 2:08:00 [...] 0 Refills, Maintenance, 10/19/19 8:53:00 EDT, Tablet, [facility]/pharmacy #[id number], 154.94, cm, 10/16/19 8:22:00 [...] recent to oldest [Reference Range]: 1 2 Oxygen Saturation [94-100 %] 100 % 100 % (04/03/20 5:22 PM) (04/03/20 3:24 PM) Pulse Rate [55-90 bpm] 60 bpm 71 bpm (04/03/20 5:22 PM) (04/03/20 3:24 PM) Blood Pressure [90-138/55-84 mm Hg] 119/75 mm Hg 124/ 68 mm Hg (04/03/20 5:22 PM) (04/03/20 3:24 PM) Respiratory Rate [16-30 br/min] 20 br/min 18 br/mi n (04/03/20 5:22 PM) (04/03/20 3:24 PM) Temperature [96.8-100.4 DegF] 98.2 DegF 99 DegF (04/03/20 5:22 PM) (04/03/20 3:24 PM) Mode of Delivery (Oxygen) Room air Room air (04/03/20 5:22 PM) (04/03/20 3:24 PM) Blood pressure sites Arm, right Arm, left (04/03/20 5:22 PM) (04/03/20 3:24 PM) Temperature Route Oral Oral (04/03/20 5:22 PM) (04/03/20 3:24 PM) Social History Social History Type Response Smoking Status Former smoker, quit more radha n 30 days ago entered on: 09/07/19 Sex
--- OUTSIDE RECORDS SUMMARY | 2022-04-01 00:29 | XMS_ITS | Continuity of Care Document ---
:1990 Author Organization [facility] [employer] [facility] Address [address] [place] [address]- Care Team Providers Name Role Phone Jarrod Sherman MD Primary Care Physician En[place] [facility] [place] Date(s): 12/15/20 - 12/22/20 [facility] [employer] [address], [address] [place] [id number] Attending Physician: Delroy Almanzar MD Referring Physician: Delroy Almanzar MD Allergies, [...] 10/23/19 8:29:00 EDT, Route to Pharmacy Electronically, [facility]/pharmacy #[id number], 154.94, cm, 10/23/19 5:18:00 EDT, Height, 97.27, kg, 10/21/19 8:42:00 EDT, Dry Weight Start Date: 10/23/19 Status: Orderedbisacodyl 5 mg oral delayed release tablet 1 tablet = 5 mg, By Mouth, Daily, PRN as needed for constipation, # 20 tablet, 0 Refills, Acute 06/16/21 0:00:00 EST, 11/16/20 9:05:00 EDT, CR Tablet, [facility]/pharmacy #[id number], Partial fill upon patient request [...] 0 Refills, Maintenance, 12/18/20 5:20:00 EDT, Capsule, [facility]/pharmacy #[id number], Partial fill upon patient request if the prescription is for a schedule II opioid drug., 154.9, cm, 12/17/20 16:47:00... Start Date: 12/18/20 Status: Orderedferrous sulfate 325 mg oral tablet 1 tablet = 325 mg, By Mouth, 3 times a day, # 90 tablet, 0 Refills, Maintenance, 12/18/20 5:21:00 EDT, Tablet, [facility]/pharmacy #[id number], Partial fill upon patient request [...] 06/16/21 0:00:00 EST, 11/16/20 9:03:00 EDT, Cream, [facility]/pharmacy #[id number], Partial fill upon patient request [...] 0 Refills, Maintenance, 12/18/20 5:20:00 EDT, Tablet, [facility]/pharmacy #[id number], Partial fill upon patient request [...] 0 Refills, Maintenance, 12/18/20 8:37:00 EDT, Tablet, [facility]/pharmacy #[id number], Partial fill upon patient request [...] Sertraline now, helping and has therapist and [id number] in the morning for nausea and anxiety Vital Signs Most recent to oldest [Reference Range]: 1 Height 154.94 cm (12/15/20 11:14 AM) Weight 106.7 kg (12/15/20 11:14 AM) Body Mass Index [18.5-24.99] 44.45 *>HHI* (12/15/20 11:14 AM) Blood Pressure [90-138/55-84 mm Hg] 148/76 mm Hg *H* (12/15/20 11:14 AM) Blood pressure sites Arm, right (12/15/20 11:14 AM) Weight Obtained Via Standing scale (12/15/20 11:14 AM) Social History Social History Type Response Smoking Status Former smoker, quit more radha n 30 days ago entered on: 08/04/20 Sex
--- OUTSIDE RECORDS SUMMARY | 2022-04-01 00:29 | XMS_ITS | Continuity of Care Document ---
:1990 Author Organization [facility] [employer] [facility] Address [address] [place] [address]- Care Team Providers Name Role Phone Jarrod Sherman MD Primary Care Physician [place] [facility] [place] 11/23/20 - 11/30/20 [facility] [employer] [address], [address] [place] [id number] Attending Physician: Irene Saenz MD [...] 10/23/19 8:29:00 EDT, Route to Pharmacy Electronically, [facility]/pharmacy #[id number], 154.94, cm, 10/23/19 5:18:00 EDT, Height, 97.27, kg, 10/21/19 8:42:00 EDT, Dry Weight Start Date: 10/23/19 Status: Orderedbisacodyl 5 mg oral delayed release tablet 1 tablet = 5 mg, By Mouth, Daily, PRN as needed for constipation, # 20 tablet, 0 Refills, Acute 06/16/21 0:00:00 EST, 11/16/20 9:05:00 EDT, CR Tablet, [facility]/pharmacy #[id number], Partial fill upon patient [...] 2 Refills, Maintenance, 09/22/20 11:24:00 EDT, CRTablet, [facility]/pharmacy #[id number], Partial fill upon patient [...] 06/16/21 0:00:00 EST, 11/16/20 9:03:00 EDT, Cream, [facility]/pharmacy #[id number], Partial fill upon patient [...] Sertraline now, helping and has therapist and [id number] in the morning for nausea and anxiety Social History Social History Type Response Smoking Status Former smoker, quit more radha n 30 days ago entered on: 08/04/20 Sex
--- OUTSIDE RECORDS SUMMARY | 2022-04-01 00:29 | XMS_ITS | Continuity of Care Document ---
:1990 Author Organization [facility] Address [address] [place] [address]- Care Team Providers Name Role Phone Jarrod Sherman MD Primary Care Physician Encounter [facility] [place] Date(s): 12/07/19 - 01/21/[address] [address]- [facility] Attending Physician: Annamarie Shah CNM Admitting Physician: Annamarie Shah CNM Allergies, Adverse Reactions, Alerts Substance Reaction [...] 10/23/19 8:29:00 EDT, Route to Pharmacy Electronically, [facility]/pharmacy #[id number], 154.94, cm, 10/23/19 5:18:00 EDT, [...] 09/29/19 17:57:00 EDT, Route to Pharmacy Electronically, [facility]/pharmacy #[id number], 154.94, cm, 09/27/19 2:08:00 EDT, [...] 0 Refills, Maintenance, 10/19/19 8:53:00 EDT, Tablet, [facility]/pharmacy #[id number], 154.94, cm, 10/16/19 8:22:00 EDT, [...]
--- OUTSIDE RECORDS SUMMARY | 2022-04-01 00:29 | XMS_ITS | Continuity of Care Document ---
:1990 Author [facility] Address [address] [place] [address], [address] [place] [address]- Care Team Providers Name Role Phone Jarrod Sherman MD Primary Care Physician En[place] [facility] [place] Date(s): 05/16/21 - 06/15/21 [facility] [address], [address] [place] [address] Allergies, Adverse Reactions, Alerts Substance Reaction [...] 06/19/21 13:56:00 EST, 06/12/21 13:56:00 EST, Capsule, [facility]/pharmacy #[id number], Partial fill upon patient request if [...] 03/06/21 15:09:00 EDT, Route to Pharmacy Electronically, [facility]/pharmacy #[id number], Partial fill upon patient request if the prescription is for a schedule II op... Start Date: 03/06/21 Status: Orderedlabetalol 200 mg oral tablet 1 tablet, By Mouth, 2 times a day, # 60 tablet, 0 Refills, [facility], 154.9, cm, 12/18/20 12:26:00 EDT, Height, 106.7, [...] Sertraline now, helping and has therapist and [id number] in the morning for nausea and anxiety Social History Social History Type Response Smoking Status Former smoker, quit more radha n 30 days ago entered on: 08/04/20 Sex
--- OUTSIDE RECORDS SUMMARY | 2022-04-01 00:29 | XMS_ITS | Continuity of Care Document ---
:1990 Author Organization [facility] [employer] [facility] Address [address] [place] [address]- Care Team Providers Name Role Phone Jarrod Sherman MD Primary Care Physician [place] [facility] [place] [facility] [employer] [address], [address] [place] [address] Attending Physician: Irene Saenz MD Referring Physician: [...] 10/23/19 8:29:00 EDT, Route to Pharmacy Electronically, [facility]/pharmacy #[id number], 154.94, cm, 10/23/19 5:18:00 EDT, Height, 97.27, kg, 10/21/19 8:42:00 EDT, Dry Weight Start Date: 10/23/19 Status: Orderedbisacodyl 5 mg oral delayed release tablet 1 tablet = 5 mg, By Mouth, Daily, PRN as needed for constipation, # 20 tablet, 0 Refills, Acute 06/16/21 0:00:00 EST, 11/16/20 9:05:00 EDT, CR Tablet, [facility]/pharmacy #[id number], Partial fill upon patient [...] 0 Refills, Maintenance, 12/18/20 5:20:00 EDT, Capsule, [facility]/pharmacy #[id number], Partial fill upon patient request if the prescription is for a schedule II opioid drug., 154.9, cm, 12/17/20 16:47:00... Start Date: 12/18/20 Status: Orderedferrous sulfate 325 mg oral tablet See Instructions, TAKE 1 TABLET BY MOUTH 3 TIMES A DAY, # 90 tablet, 0 Refills, Maintenance, [facility], 154.9, cm, 12/18/20 12:26:00 EDT, Height, 106.7, [...] 06/16/21 0:00:00 EST, 11/16/20 9:03:00 EDT, Cream, [facility]/pharmacy #[id number], Partial fill upon patient [...] DAY, # 60 tablet, 0 Refills, Maintenance, [facility] [id number], 154.9, cm, 12/18/20 12:26:00 EDT, Height, 106.7, [...] 0 Refills, Maintenance, 12/18/20 8:37:00 EDT, Tablet, [facility]/pharmacy #[id number], Partial fill upon patient [...] Sertraline now, helping and has therapist and [id number] in the morning for nausea and anxiety Social History Social History Type Response Smoking Status Former smoker, quit more radha n 30 days ago entered on: 08/04/20 Sex
--- OUTSIDE RECORDS SUMMARY | 2022-04-01 00:29 | XMS_ITS | Continuity of Care Document ---
:1990 Author Organization [facility] Address [address] [place] [phone]- Care Team Providers Name Role Phone Lane GAMBOA, Jarrod Oneil Primary Care Physician [place] [facility] [place]/23/[place] - 09/23/[address] [address]- [facility] Discharge Disposition: A-D/C Home Attending Physician: Mary Ann Andres MD Admitting Physician: Mary Ann Andres MD Referring Physician: Mary Ann Andres MD Allergies, Adverse Reactions, Alerts Substance Reaction [...] Condition Effective Dates Status Health Status Informant Anxiety(Confirmed) Active Arthritis(Confirmed) Active Depression(Confirmed) Active Fibromyalgia(Confirmed) Active GERD (gastroesophageal reflux Active disease)(Confirmed) Chronic hypertension(Confirmed) Active Migraines(Confirmed) Active Panic attacks(Confirmed) Active Procedures Procedure Date Related Diagnosis Body Site Status Cystectomy Completed Tonsils obstructive Complete d Vital Signs Most recent to oldest [Reference 1 2 3 Range]: Height 155 cm (09/23/19 6:07 PM) Weight 95.9 kg (09/23/19 5:43 PM) Blood Pressure [90-138/55-84 mm 128/67 mm Hg 121/73 mm Hg 121/73 mm Hg Hg] (09/23/19 7:01 PM) (09/23/19 6:31 PM) (09/23/19 6:14 P M) Respiratory Rate [16-30 br/min] 16 br/min 16 br/min (09/23/19 8:43 PM) (09/23/19 6:14 PM) Temperature [96.8-100.4 DegF] 98.4 DegF (09/23/19 6:07 PM) Blood pressure sites Arm, right Arm, right (09/23/19 7:01 PM) (09/23/19 6:14 PM) Temperature Route Oral (09/23/19 6:07 PM) Dry Weight 95.9 kg (09/23/19 5:43 PM) Weight Obtained Via Standing scale (09/23/19 5:43 PM) Dry Weight Obtained Via Standing scale (09/23/19 5:43 PM) Social History Social History Type Response Smoking Status Former smoker, quit more radha n 30 days ago entered on: 09/07/19 Sex
--- OUTSIDE RECORDS SUMMARY | 2022-04-01 00:29 | XMS_ITS | Continuity of Care Document ---
:1990 Author Organization [facility] ic Address [address] [place] [address]- Care Team Providers Name Role Phone Jarrod Sherman MD Primary Care Physician Encounter [facility] [place] Date(s): 01/11/21 - 02/10/[address] [address]- Allergies, Adverse Reactions, Alerts Substance Reaction Severity [...] 8:29:00 EDT, Route to Pharmacy Electronically, [facility]/pharmacy #[id number], 154.94, cm, 10/23/19 5:18:00 EDT, Height, 97.27, kg, 10/21/19 8:42:00 EDT, Dry Weight Start Date: 10/23/19 Status: Orderedbisacodyl 5 mg oral delayed release tablet 1 tablet = 5 mg, By Mouth, Daily, PRN as needed for constipation, # 20 tablet, 0 Refills, Acute 06/16/21 0:00:00 EST, 11/16/20 9:05:00 EDT, CR Tablet, [facility]/pharmacy #[id number], Partial fill upon patient request if [...] Refills, Maintenance, 12/18/20 5:20:00 EDT, Capsule, [facility]/pharmacy #0373, Partial fill upon patient request if the prescription is for a schedule II opioid drug., 154.9, cm, 12/17/20 16:47:00... Start Date: 12/18/20 Status: Orderedferrous sulfate 325 mg oral tablet 1 tablet, By Mouth, 3 times a day, # 90 tablet, 0 Refills, [facility], 154.9, cm, 12/18/20 12:26:00 EDT, Height, 106.7, [...] 06/16/21 0:00:00 EST, 11/16/20 9:03:00 EDT, Cream, [id number], Partial fill upon patient request [...] # 60 tablet, 0 Refills, [facility], 154.9, cm, 12/18/20 12:26:00 EDT, Height, 106.7, [...] Refills, Maintenance, 12/18/20 8:37:00 EDT, Tablet, [facility]/pharmacy #0373, Partial fill upon patient request if [...] 0 Refills, Maintenance, 12/18/20 5:21:00 EDT, Tablet,[facility]/pharm[facility] #0373, Partial fill upon patient request if [...] Sertraline now, helping and has therapist and [id number] in the morning for nausea and anxiety Social History Social History Type Response Smoking Status Former smoker, quit more radha n 30 days ago entered on: 08/04/20 Sex
--- OUTSIDE RECORDS SUMMARY | 2022-04-01 00:29 | XMS_ITS | Continuity of Care Document ---
:1990 Author Organization [facility] [employer] [facility] Address [address] [place] [address]- Care Team Providers Name Role Phone Lane GAMBOA, Jarrod Oneil Primary Care Physician En[place] [facility] [place] Date(s): 11/07/20 - 12/21/20 [facility] [employer] [employer] [address] [address]- Attending Physician: Denise Laws MD Referring Physician: [...] 10/23/19 8:29:00 EDT, Route to Pharmacy Electronically, [facility]/pharmacy #[id number], 154.94, cm, 10/23/19 5:18:00 EDT, Height, 97.27, kg, 10/21/19 8:42:00 EDT, Dry Weight Start Date: 10/23/19 Status: Orderedbisacodyl 5 mg oral delayed release tablet 1 tablet = 5 mg, By Mouth, Daily, PRN as needed for constipation, # 20 tablet, 0 Refills, Acute 06/16/21 0:00:00 EST, 11/16/20 9:05:00 EDT, CR Tablet, [facility]/pharmacy #[id number], Partial fill upon [...] 0 Refills, Maintenance, 12/18/20 5:20:00 EDT, Capsule, [facility]/pharmacy #[id number], Partial fill upon patient request if the prescription is for a schedule II opioid drug., 154.9, cm, 12/17/20 16:47:00... Start Date: 12/18/20 Status: Orderedferrous sulfate 325 mg oral tablet 1 tablet = 325 mg, By Mouth, 3 times a day, # 90 tablet, 0 Refills, Maintenance, 12/18/20 5:21:00 EDT, Tablet, [facility]/pharmacy #[id number], Partial fill upon [...] 06/16/21 0:00:00 EST, 11/16/20 9:03:00 EDT, Cream, [facility]/pharmacy #[id number], Partial fill upon [...] 0 Refills, Maintenance, 12/18/20 5:20:00 EDT, Tablet, [facility]/pharmacy #0373, Partial fill upon [...] 0 Refills, Maintenance, 12/18/20 8:37:00 EDT, Tablet, [facility]/pharmacy #0373, Partial fill upon [...] tablet, 0 Refills, Maintenance, 12/18/20 5:21:00 EDT, Tablet,[facility], Partial fill upon [...] Sertraline now, helping and has therapist and [id number] in the morning for nausea and anxiety Social History Social History Type Response Smoking Status Former smoker, quit more radha n 30 days ago entered on: 08/04/20 Sex
--- OUTSIDE RECORDS SUMMARY | 2022-04-01 00:29 | XMS_ITS | Continuity of Care Document ---
:1990 Author [facility] Address [address] [place] [address], [address] [place] [address]- Care Team Providers Name Role Phone Lane GAMBOA, Jarrod Oneil [id number] - [facility]18/[facility] [employer] [facility] [address] [place] [address], [address] [place] [address] Attending Physician: Denise Laws MD Referring Physician: Not on Staff, Referring [...] 03/06/21 15:09:00 EDT, Route to Pharmacy Electronically, [facility]/pharmacy #[id number], Partial fill upon patient request if the prescription is for a schedule II op... Start Date: 03/06/21 Status: Orderedlabetalol 200 mg oral tablet 1 tablet, By Mouth, 2 times a day, # 60 tablet, 0 Refills, [facility], 154.9, cm, 12/18/20 12:26:00 EDT, Height, 106.7, kg, 12/15/20 14:39:00 EDT, Dry Weight Start Date: 02/06/21 Status: Orderedsertraline 100 mg oral tablet 1 tablet = 100 mg, By Mouth, Daily in AM, 0 Refills, Maintenance, 08/18/20 11:50:00 EST, Partial fill upon patient request if the prescription is for a schedule II opioid drug. Start Date: 08/18/20 Status: Ordered Problem List Condition Confirmation Course Effective Dates Status Health Stat us Informant Anemia Confirmed Active Anxiety1 Confirmed Active Arthritis Confirmed Active Bipolar disorder Confirmed Active Carpal tunnel Confirmed Active syndrome during Vulvar cyst Confirmed Active Depression Confirmed Active Fibromyalgia Confirmed Active GERD Confirmed Active (gastroesophageal reflux disease) Diabetes, Confirmed Active gestational Hemorrhoid Confirmed Active Hx of preeclampsia, Confirmed Active prior , currently History of COVID-19 Confirmed 06/20/20 Active Chronic Confirmed Active hypertension Marijuana use2 Confirmed Active Migraines Confirmed Active Obesity Confirmed Active Panic attacks Confirmed Active PCOS (polycystic Confirmed Active ovarian syndrome) Wound cellulitis Confirmed Active after surgery Rubella equivocal [ Confirmed Active ] MMR 1on Sertraline now, helping and has therapist and [id number] in the morning for nausea and anxiety Social History Social History Type Response Smoking Status Former smoker, quit more radha n 30 days ago entered on: 08/04/20 Sex Patient Care team information PersonnelName: Lane GAMBOA, Jarrod Oneil Address: Address: [address] [place] [address] Drive [address] [place] [address]-
--- OUTSIDE RECORDS SUMMARY | 2022-04-01 00:30 | XMS_ITS | Continuity of Care Document ---
:1990 Author Organization [facility] [employer] [facility] Address [address] [place] [address]- Care Team Providers Name Role Phone Jarrod Sherman MD Primary Care Physician [place] [facility] [place] 11[place]07[place]20 - 02/05/21 [facility] [place] [employer] [address] [address] Attending Physician: Dany GAMBOA, Irene Quesada Referring Physician: Pedro GAMBOA [OB], Anastasia Haynes [...] 10/23/19 8:29:00 EDT, Route to Pharmacy Electronically, [facility]/pharmacy #[id number], 154.94, cm, 10/23/19 5:18:00 EDT, Height, 97.27, kg, 10/21/19 8:42:00 EDT, Dry Weight Start Date: 10/23/19 Status: Orderedbisacodyl 5 mg oral delayed release tablet 1 tablet = 5 mg, By Mouth, Daily, PRN as needed for constipation, # 20 tablet, 0 Refills, Acute 06/16/21 0:00:00 EST, 11/16/20 9:05:00 EDT, CR Tablet, [id number], Partial fill upon patient [...] 0 Refills, Maintenance, 12/18/20 5:20:00 EDT, Capsule, [facility]/pharmacy #0373, Partial fill upon patient request if the prescription is for a schedule II opioid drug., 154.9, cm, 12/17/20 16:47:00... Start Date: 12/18/20 Status: Orderedferrous sulfate 325 mg oral tablet See Instructions, TAKE 1 TABLET BY MOUTH 3 TIMES A DAY, # 90 tablet, 0 Refills, Maintenance, [facility], 154.9, cm, 12/18/20 12:26:00 EDT, Height, 106.7, [...] 06/16/21 0:00:00 EST, 11/16/20 9:03:00 EDT, Cream, [facility]/pharmacy #0373, Partial fill upon patient [...] DAY, # 60 tablet, 0 Refills, Maintenance, [facility] [id number], 154.9, cm, 12/18/20 12:26:00 EDT, Height, 106.7, [...] 0 Refills, Maintenance, 12/18/20 8:37:00 EDT, Tablet, [facility]/pharmacy #0373, Partial fill upon patient [...] Sertraline now, helping and has therapist and [id number] in the morning for nausea and anxiety Social History Social History Type Response Smoking Status Former smoker, quit more radha n 30 days ago entered on: 08/04/20 Sex
--- OUTSIDE RECORDS SUMMARY | 2022-04-01 00:30 | XMS_ITS | Continuity of Care Document ---
:1990 Author Organization [facility] [employer] [facility] Address [address] [place] [address]- Care Team Providers Name Role Phone Jarrod Sherman MD Primary Care Physician En[place] [facility] [place] Date(s): 11/07/20 - 02/05/21 [facility] [employer] [address] [address]- Attending Physician: Pedro GAMBOA [OB], Anastasia Haynes [...] EDT, Route to Pharmacy Electronically, [facility]/pharmacy #[id number], 154.94, cm, 10/23/19 5:18:00 EDT, Height, 97.27, kg, 10/21/19 8:42:00 EDT, Dry Weight Start Date: 10/23/19 Status: Orderedbisacodyl 5 mg oral delayed release tablet 1 tablet = 5 mg, By Mouth, Daily, PRN as needed for constipation, # 20 tablet, 0 Refills, Acute 06/16/21 0:00:00 EST, 11/16/20 9:05:00 EDT, CR Tablet, [facility]/pharmacy #[id number], Partial fill upon patient request if [...] Maintenance, 12/18/20 5:20:00 EDT, Capsule, [facility]/pharmacy #[id number], Partial fill upon patient request if the prescription is for a schedule II opioid drug., 154.9, cm, 12/17/20 16:47:00... Start Date: 12/18/20 Status: Orderedferrous sulfate 325 mg oral tablet See Instructions, TAKE 1 TABLET BY MOUTH 3 TIMES A DAY, # 90 tablet, 0 Refills, Maintenance, [facility], 154.9, cm, 12/18/20 12:26:00 EDT, Height, 106.7, [...] EST, 11/16/20 9:03:00 EDT, Cream, [facility]/pharmacy #0373, Partial fill upon patient request if [...] 60 tablet, 0 Refills, Maintenance, [facility] [id number], 154.9, cm, 12/18/20 12:26:00 EDT, Height, 106.7, [...] Maintenance, 12/18/20 8:37:00 EDT, Tablet, [facility]/pharmacy #[id number], Partial fill upon patient request if [...] Sertraline now, helping and has therapist and [id number] in the morning for nausea and anxiety Social History Social History Type Response Smoking Status Former smoker, quit more radha n 30 days ago entered on: 08/04/20 Sex
--- OUTSIDE RECORDS SUMMARY | 2022-04-01 00:30 | XMS_ITS | Continuity of Care Document ---
:1990 Author Organization [facility] Address [address] [place] [address], [address] [place] [address]- Care Team Providers Name Role Phone Jarrod Sherman MD Primary Care Physician [place] [facility] [place]/21 - 05/25/21 [facility] [address] [place] [address], [address] [place] [id number] Allergies, Adverse Reactions, Alerts Substance Reaction [...] 03/06/21 15:09:00 EDT, Route to Pharmacy Electronically, [facility]/pharmacy #[id number], Partial fill upon patient request if the prescription is for a schedule II op... Start Date: 03/06/21 Status: Orderedlabetalol 200 mg oral tablet 1 tablet, By Mouth, 2 times a day, # 60 tablet, 0 Refills, [facility] STORE [id number], 154.9, cm, 12/18/20 12:26:00 EDT, Height, 106.7, kg, 12/15/20 14:39:00 EDT, Dry Weight Start Date: 02/06/21 Status: OrderedmetroNIDAZOLE 500 mg oral tablet 1 tablet = 500 mg, By Mouth, Every 12 hours, for 14 days, # 28 tablet, 0 Refills, Acute 05/29/21 14:27:00 EST, 05/15/21 14:27:00 EST, Tablet, [facility]/pharmacy #[id number], Partial fill upon patient [...] Sertraline now, helping and has therapist and [id number] in the morning for nausea and anxiety Social History Social History Type Response Smoking Status Former smoker, quit more radha n 30 days ago entered on: 08/04/20 Sex
--- OUTSIDE RECORDS SUMMARY | 2022-04-01 00:30 | XMS_ITS | Continuity of Care Document ---
:1990 Author Organization [facility] Address [address] [place] [address]- Care Team Providers Name Role Phone Jarrod Sherman MD Primary Care Physician Encounter [facility] Date(s): 06/21/20 - 07/21/[address] [address]- Allergies, Adverse Reactions, Alerts Substance Reaction Severity [...] 10/23/19 8:29:00 EDT, Route to Pharmacy Electronically, [facility]/pharmacy #[id number], 154.94, cm, 10/23/19 5:18:00 [...] 09/29/19 17:57:00 EDT, Route to Pharmacy Electronically, [facility]/pharmacy #[id number], 154.94, cm, 09/27/19 2:08:00 [...] 0 Refills, Maintenance, 10/19/19 8:53:00 EDT, Tablet, [facility]/pharmacy #[id number], 154.94, cm, 10/16/19 8:22:00 [...]
--- OUTSIDE RECORDS SUMMARY | 2022-04-01 00:30 | XMS_ITS | Continuity of Care Document ---
:1989 Author Organization [facility] Address [address] [place] [address]- Care Team Providers Name Role Phone Jarrod Sherman MD Primary Care Physician [place] [facility] [place]15[place]20 - 12/21/20 [facility] [address] [address]- Attending Physician: Pedro GAMBOA [OB], Anastasia Haynes [...] 8:29:00 EDT, Route to Pharmacy Electronically, [facility]/pharmacy #[id number], 154.94, cm, 10/23/19 5:18:00 EDT, Height, 97.27, kg, 10/21/19 8:42:00 EDT, Dry Weight Start Date: 10/23/19 Status: Orderedbisacodyl 5 mg oral delayed release tablet 1 tablet = 5 mg, By Mouth, Daily, PRN as needed for constipation, # 20 tablet, 0 Refills, Acute 06/16/21 0:00:00 EST, 11/16/20 9:05:00 EDT, CR Tablet, [facility]/pharmacy #[id number], Partial fill upon patient request if [...] Refills, Maintenance, 12/18/20 5:20:00 EDT, Capsule, [facility]/pharmacy #[id number], Partial fill upon patient request if the prescription is for a schedule II opioid drug., 154.9, cm, 12/17/20 16:47:00... Start Date: 12/18/20 Status: Orderedferrous sulfate 325 mg oral tablet 1 tablet = 325 mg, By Mouth, 3 times a day, # 90 tablet, 0 Refills, Maintenance, 12/18/20 5:21:00 EDT, Tablet, [facility]/pharmacy #[id number], Partial fill upon patient request if [...] 0:00:00 EST, 11/16/20 9:03:00 EDT, Cream, [facility]/pharmacy #[id number], Partial fill upon patient request if [...] Refills, Maintenance, 12/18/20 5:20:00 EDT, Tablet, [facility]/pharmacy #[id number], Partial fill upon patient request if [...] Refills, Maintenance, 12/18/20 8:37:00 EDT, Tablet, [facility]/pharmacy #[id number], Partial fill upon patient request if [...] 0 Refills, Maintenance, 12/18/20 5:21:00 EDT, Tablet,[facility]/pharmacy #[id number], Partial fill upon patient request if [...] Sertraline now, helping and has therapist and [id number] in the morning for nausea and anxiety Social History Social History Type Response Smoking Status Former smoker, quit more radha n 30 days ago entered on: 08/04/20 Sex
--- OUTSIDE RECORDS SUMMARY | 2022-04-01 00:30 | XMS_ITS | Continuity of Care Document ---
:1989 Author Organization [facility] Address [address] [place] [address]- Care Team Providers Name Role Phone Jarrod Sherman MD Primary Care Physician [place] [facility] [place]14[place]20 [facility] Yessica [facility] [address], [address] [place] [id number] Attending Physician: Pedro GAMBOA [OB], Anastasia [...] 2 Refills, Maintenance, 09/22/20 11:24:00 EDT, CRTablet, [facility]/pharmacy #[id number], Partial fill upon patient [...] Sertraline now, helping and has therapist and [id number] in the morning for nausea and anxiety Vital Signs Most recent to oldest [Reference Range]: 1 2 Height 154.94 cm 154.94 cm (11/07/20 12:59 PM) (11/07/20 11:36 AM) Weight 108.53 kg (11/07/20 11:36 AM) Body Mass Index [18.5-24.99] 45.21 *>HHI* (11/07/20 11:36 AM) Blood Pressure [90-138/55-84 mm Hg] 129/79 mm Hg (11/07/20 11:36 AM) Blood pressure sites Arm, right (11/07/20 11:36 AM) Weight Obtained Via Standing scale (11/07/20 11:36 AM) Social History Social History Type Response Smoking Status Former smoker, quit more radha n 30 days ago entered on: 08/04/20 Sex
--- OUTSIDE RECORDS SUMMARY | 2022-04-01 00:30 | XMS_ITS | Continuity of Care Document ---
:1990 Author Organization [facility] [employer] [facility] Address [address] [place] [address], [address] [place] [address]- Care Team Providers Name Role Phone Jarrod Sherman MD Primary Care Physician [place] [facility] [place]): 11/16/20 - 11/23/20 [facility] [employer] [address], [address] [place] [id number] Attending Physician: Irene Saenz MD Allergies, Adverse Reactions, [...] 10/23/19 8:29:00 EDT, Route to Pharmacy Electronically, [facility]/pharmacy #[id number], 154.94, cm, 10/23/19 5:18:00 EDT, Height, 97.27, kg, 10/21/19 8:42:00 EDT, Dry Weight Start Date: 10/23/19 Status: Orderedbisacodyl 5 mg oral delayed release tablet 1 tablet = 5 mg, By Mouth, Daily, PRN as needed for constipation, # 20 tablet, 0 Refills, Acute 06/16/21 0:00:00 EST, 11/16/20 9:05:00 EDT, CR Tablet, [facility]/pharmacy #[id number], Partial fill upon patient request [...] 2 Refills, Maintenance, 09/22/20 11:24:00 EDT, CRTablet, [facility]/pharmacy #[id number], Partial fill upon patient request [...] 06/16/21 0:00:00 EST, 11/16/20 9:03:00 EDT, Cream, [facility]/pharmacy #[id number], Partial fill upon patient request [...] Sertraline now, helping and has therapist and [id number] in the morning for nausea and anxiety Vital Signs Most recent to oldest [Reference Range]: 1 Height 154.94 cm (11/16/20 8:54 AM) Weight 105 kg (11/16/20 8:54 AM) Body Mass Index [18.5-24.99] 43.74 *>HHI* (11/16/20 8:54 AM) Blood Pressure [90-138/55-84 mm Hg] 140/80 mm Hg *H* (11/16/20 8:54 AM) Blood pressure sites Arm, left (11/16/20 8:54 AM) Weight Obtained Via Standing scale (11/16/20 8:54 AM) Social History Social History Type Response Smoking Status Former smoker, quit more radha n 30 days ago entered on: 08/04/20 Sex
--- OUTSIDE RECORDS SUMMARY | 2022-04-01 00:30 | XMS_ITS | Continuity of Care Document ---
:1989 Author Organization [facility] Address [address] [place] [address]- Care Team Providers Name Role Phone Jarrod Sherman MD Primary Care Physician [place] [facility] [place] Date(s): 03/06/21 - 03/06/[address] [address]- Discharge Disposition: A-D/C Home Attending Physician: Gabriella [...] 03/06/21 15:09:00 EDT, Route to Pharmacy Electronically, [facility]/pharmacy #[id number], Partial fill upon patient request if the [...] 0 Refills, Maintenance, 02/28/21 12:16:00 EDT, Tablet, [facility]/pharmacy #[id number], Partial fill upon patient request if the prescription is for a schedule II opioid drug., 154.94, cm, 02/23/21 10:45:00... Start Date: 02/28/21 Status: Orderedibuprofen 600 mg oral tablet 600 mg, 1, tablet, By Mouth, Every 8 hours, # 50 tablet, Refills 0, Tot. Refills 0, Maintenance, 03/06/21 15:09:00 EDT, [id number] Partial fill upon patient request if the prescription is for a schedule II op... Start Date: 03/06/21 Status: Orderedlabetalol 200 mg oral tablet 1 tablet, By Mouth, 2 times a day, # 60 tablet, 0 Refills, [facility] STORE 48809, 154.9, cm, 12/18/20 12:26:00 EDT, Height, 106.7, [...] to Pharmacy Electronical... Start Date: 03/06/21 Status: OrderedOxyCODONE IR Tablet 5 mg, Tablet, By Mouth, Every 4 hours, in PACU ONLY, if patient can tolerate PO, PRN for Pain , Mild, Routine, 03/06/21 16:25:00 EDT Start Date: 03/06/21 Stop Date: 03/13/21 Status: Orderedsertraline 100 mg oral tablet 1 [...] Sertraline now, helping and has therapist and [id number] in the morning for nausea and anxiety Vital Signs Most recent to oldest 1 2 3 [Reference Range]: Height 154.94 cm 154.94 cm (03/06/21 2:20 PM) (02/23/21 10:45 AM) Weight 98.5 kg 98.64 kg (03/06/21 2:20 PM) (02/23/21 10:45 AM) Oxygen Saturation [94-100 100 % 98 % 100 % %] (03/06/21 5:45 PM) (03/06/21 5:30 PM) (03/06/21 5:1 5 PM) Pulse Rate [55-90 bpm] 58 bpm (03/06/21 2:20 PM) Body Mass Index 41.03 41.09 [18.5-24.99] *>HHI* *>HHI* (03/06/21 2:20 PM) (02/23/21 10:45 AM) Blood Pressure 138/72 mm Hg 145/73 mm Hg 143/75 mm Hg [90-138/55-84 mm Hg] (03/06/21 5:45 PM) *H* *H* (03/06/21 5:30 PM) (03/06/21 5:15 PM) Respiratory Rate [16-30 22 br/min 19 br/min 12 br/mi n br/min] (03/06/21 5:45 PM) (03/06/21 5:42 PM) *L* (03/06/21 5:30 PM ) Temperature [96.8-100.4 97.3 DegF 98.2 DegF 98.5 Deg F DegF] (03/06/21 5:45 PM) (03/06/21 4:45 PM) (03/06/21 2:2 0 PM) Liters per Minute 5 L/min (03/06/21 4:45 PM) Mode of Delivery (Oxygen) Room air Simple face mask Room air (03/06/21 5:15 PM) (03/06/21 4:45 PM) (03/06/21 2:2 0 PM) Blood pressure sites Arm, left Arm, left (03/06/21 4:45 PM) (03/06/21 2:20 PM) Temperature Route Temporal Temporal Temporal (03/06/21 5:45 PM) (03/06/21 4:45 PM) (03/06/21 2:2 0 PM) Dry Weight 98.5 kg 98.64 kg (03/06/21 2:20 PM) (02/23/21 10:45 AM) Weight Obtained Via Standing scale Patient/family stated (03/06/21 2:20 PM) (02/23/21 10:45 AM) Dry Weight Obtained Via Standing scale Patient/family stated (03/06/21 2:20 PM) (02/23/21 10:45 AM) Social History Social History Type Response Smoking Status Former smoker, quit more radha n 30 days ago entered on: 08/04/20 Sex
--- OUTSIDE RECORDS SUMMARY | 2022-04-01 00:30 | XMS_ITS | Continuity of Care Document ---
:1989 Author Organization [facility] [employer] [facility] Address [address] [place] [address], [address] [place] [address]- Care Team Providers Name Role Phone Jarrod Sherman MD Primary Care Physician En[place] [facility] [place] Date(s): 04/24/21 - 05/24/21 [facility] [employer] [facility] [address] [place] [address], [address] [place] [id number] Allergies, Adverse Reactions, Alerts [...] 03/06/21 15:09:00 EDT, Route to Pharmacy Electronically, [facility]/pharmacy #[id number], Partial fill upon patient request if the prescription is for a schedule II op... Start Date: 03/06/21 Status: Orderedlabetalol 200 mg oral tablet 1 tablet, By Mouth, 2 times a day, # 60 tablet, 0 Refills, [facility] STORE 96217, 154.9, cm, 12/18/20 12:26:00 EDT, Height, 106.7, kg, 12/15/20 14:39:00 EDT, Dry Weight Start Date: 02/06/21 Status: OrderedmetroNIDAZOLE 500 mg oral tablet 1 tablet = 500 mg, By Mouth, Every 12 hours, for 14 days, # 28 tablet, 0 Refills, Acute 05/29/21 14:27:00 EST, 05/15/21 14:27:00 EST, Tablet, [facility]/pharmacy #[id number], Partial fill upon patient [...] Sertraline now, helping and has therapist and [id number] in the morning for nausea and anxiety Social History Social History Type Response Smoking Status Former smoker, quit more radha n 30 days ago entered on: 08/04/20 Sex
--- OUTSIDE RECORDS SUMMARY | 2022-04-01 00:30 | XMS_ITS | Continuity of Care Document ---
:1989 Author Organization [facility] Address [address] [place] [address]- Care Team Providers Name Role Phone Jarrod Sherman MD Primary Care Physician [place] [facility] [place] - 12/12/[address] [address]- Discharge Disposition: A-D/C Home Attending Physician: Pedro [...] 10/23/19 8:29:00 EDT, Route to Pharmacy Electronically, [facility]/pharmacy #[id number], 154.94, cm, 10/23/19 5:18:00 EDT, Height, 97.27, kg, 10/21/19 8:42:00 EDT, Dry Weight Start Date: 10/23/19 Status: Orderedbisacodyl 5 mg oral delayed release tablet 1 tablet = 5 mg, By Mouth, Daily, PRN as needed for constipation, # 20 tablet, 0 Refills, Acute 06/16/21 0:00:00 EST, 11/16/20 9:05:00 EDT, CR Tablet, [facility]/pharmacy #[id number], Partial fill upon patient request [...] 2 Refills, Maintenance, 09/22/20 11:24:00 EDT, CRTablet, [facility]/pharmacy #[id number], Partial fill upon patient request [...] 06/16/21 0:00:00 EST, 11/16/20 9:03:00 EDT, Cream, [facility]/pharmacy #[id number], Partial fill upon patient request [...] Sertraline now, helping and has therapist and [id number] in the morning for nausea and anxiety Social History Social History Type Response Smoking Status Former smoker, quit more radha n 30 days ago entered on: 08/04/20 Sex
--- OUTSIDE RECORDS SUMMARY | 2022-04-01 00:30 | XMS_ITS | Continuity of Care Document ---
:1989 Author Organization [facility] [employer] [facility] Address [address] [place] [address], [address] [place] [address]- Care Team Providers Name Role Phone Lane GAMBOA, Jarrod Oneil Primary Care Physician [id number]): [facility] - [facility]03/20 [facility] [employer] [facility] [address] [place] [address], [address] [place] [address]- Attending Physician: Delroy Almanzar MD Allergies, Adverse Reactions, [...] 8:29:00 EDT, Route to Pharmacy Electronically, [facility]/pharmacy #[id number], 154.94, cm, 10/23/19 5:18:00 [...] 2 Refills, Maintenance, 09/22/20 11:24:00 EDT, CRTablet, [facility]/pharmacy #[id number], Partial fill upon patient [...] Sertraline now, helping and has therapist and rnzgnsbkvjx1Hsheh in the morning for nausea and anxiety Vital Signs Most recent to oldest [Reference Range]: 1 Height 154.94 cm (10/27/20 1:30 PM) Weight 106.2 kg (10/27/20 1:30 PM) Body Mass Index [18.5-24.99] 44.24 *>HHI* (10/27/20 1:30 PM) Blood Pressure [90-138/55-84 mm Hg] 143/82 mm Hg *H* (10/27/20 1:30 PM) Blood pressure sites Arm, right (10/27/20 1:30 PM) Weight Obtained Via Standing scale (10/27/20 1:30 PM) Social History Social History Type Response Smoking Status Former smoker, quit more radha n 30 days ago entered on: 08/04/20 Sex
--- OUTSIDE RECORDS SUMMARY | 2022-04-01 00:30 | XMS_ITS | Continuity of Care Document ---
:1989 Author Organization [facility] [employer] [facility] Address [address] [place] [address], [address] [place] [address]- Care Team Providers Name Role Phone Lane GAMBOA, Jarrod Oneil Primary Care Physician [place] [facility] [place] Date(s): 02/16/22 - 03/18/22 [facility] [employer] [address], [address] [place] [address]- Allergies, Adverse Reactions, Alerts Substance Reaction Severity [...] 03/06/21 15:09:00 EDT, Route to Pharmacy Electronically, [facility]/pharmacy #[id number], Partial fill upon patient request if the prescription is for a schedule II op... Start Date: 03/06/21 Status: Orderedlabetalol 200 mg oral tablet 1 tablet, By Mouth, 2 times a day, # 60 tablet, 0 Refills, [facility] STORE 60213, 154.9, cm, 12/18/20 12:26:00 EDT, Height, 106.7, [...] Sertraline now, helping and has therapist and tkdqrvuxtuj8Sgmaz in the morning for nausea and anxiety Social History Social History Type Response Smoking Status Former smoker, quit more radha n 30 days ago entered on: 08/04/20 Sex Patient Care team information PersonnelName: Lane GAMBOA, Jarrod Oneil Address: Address: [address] [place] [address] [address] [place] [address]-
--- OUTSIDE RECORDS SUMMARY | 2022-04-01 00:30 | XMS_ITS | Continuity of Care Document ---
:1990 Author Organization [facility] [employer] [facility] Address [address] [place] [address]- Care Team Providers Name Role Phone Lane GAMBOA, Jarrod Oneil Primary Care Physician En[place] [facility] [place] Date(s): 02/15/21 - 02/22/21 [facility] [employer] [address], [address] [place] [address] Attending Physician: Kevan GAMBOA, Khoa Salazar Referring Physician: Denise Laws MD Allergies, Adverse Reactions, Alerts Substance Reaction Severity Status amoxicillin Rash Active topiramate Swelling of throat Active Provera Bleeding Active Latex Skin rash Active Immunizations Given and Recorded Vaccine Date Status Refusal Reason tetanus/diphtheria/pertussis, acel(Tdap) 10/27/20 Given tetanus/diphtheria/pertussis, acel(Tdap) 10/09/19 Given Measles/Mumps/Rubella Virus Vaccine 10/22/19 Given Medications Dexilant 30 mg oral delayed release capsule 1 capsule = 30 mg, By Mouth, Daily, 0 Refills, Maintenance, 09/05/19 0:12:00 EDT Start Date: 09/05/19 Status: Orderedlabetalol 200 mg oral tablet 1 tablet, By Mouth, 2 times a day, # 60 tablet, 0 Refills, [facility] STORE 82619, 154.9, cm, 12/18/20 12:26:00 EDT, Height, 106.7, kg, 12/15/20 14:39:00 EDT, Dry Weight Start Date: 02/06/21 Status: OrderedLoratadine 10 mg, By Mouth, Daily, Refills 0, Maintenance, 12/18/20 8:35:00 EDT, Partial fill upon patient request if the prescription is for a schedule II opioid drug. Start Date: 12/18/20 Status: OrderedPrenatal Multivitamins with [...] Sertraline now, helping and has therapist and uygmhqzxawo9Qrzuz in the morning for nausea and anxiety Vital Signs Most recent to oldest [Reference Range]: 1 Height 154.9 cm (02/15/21 10:12 AM) Weight 98.63 kg (02/15/21 10:12 AM) Body Mass Index [18.5-24.99] 41.11 *>HHI* (02/15/21 10:12 AM) Blood Pressure [90-138/55-84 mm Hg] 135/64 mm Hg (02/15/21 10:12 AM) Blood pressure sites Arm, left (02/15/21 10:12 AM) Weight Obtained Via Standing scale (02/15/21 10:12 AM) Social History Social History Type Response Smoking Status Former smoker, quit more radha n 30 days ago entered on: 08/04/20 Sex
--- OUTSIDE RECORDS SUMMARY | 2022-04-01 00:30 | XMS_ITS | Continuity of Care Document ---
:1989 Author Organization [facility] [facility] Address [address] [place] [address]- Care Team Providers Name Role Phone Jarrod Sherman MD Primary Care Physician [place] [facility] [place](s): 12/15/20 - 12/22/20 [facility] [employer] [address] [address]- Attending Physician: Pedro GAMBOA [OB], Anastasia Haynes [...] EDT, Route to Pharmacy Electronically, [facility]/pharmacy #[id number], 154.94, cm, 10/23/19 5:18:00 EDT, [...] 0 Refills, Maintenance, 12/18/20 5:21:00 EDT, Tablet, [facility]/pharmacy #[id number], Partial fill [...] 0 Refills, Maintenance, 12/18/20 5:20:00 EDT, Tablet, [facility]/pharmacy #[id number], Partial fill [...] tablet, 0 Refills, Maintenance, 12/18/20 5:21:00 EDT, Tablet,[facility]/pharmacy #[id number], Partial fill upon patient request [...] Sertraline now, helping and has therapist and [id number] in the morning for nausea and anxiety Social History Social History Type Response Smoking Status Former smoker, quit more radha n 30 days ago entered on: 08/04/20 Sex
--- OUTSIDE RECORDS SUMMARY | 2022-04-01 00:31 | XMS_ITS | Continuity of Care Document ---
:1989 Author Organization [facility] [employer] [facility] Address [address] [place] [address], [address] [place] [address]- Care Team Providers Name Role Phone Lane GAMBOA, Jarrod Oneil Primary Care Physician [id number]13[facility]20 - 10[facility]20/20 [facility] Yessica [employer] [address], [address] [place] [address]- Attending Physician: Khoa Sanchez MD Referring Physician: Delroy Almanzar MD Allergies, [...] EDT, Route to Pharmacy Electronically, [facility]/pharmacy #[id number], 154.94, cm, 10/23/19 5:18:00 EDT, Height, [...] 09/29/19 17:57:00 EDT, Route to Pharmacy Electronically, [facility]/pharmacy #[id number], 154.94, cm, 09/27/19 2:08:00 EDT, Height, 95.9, kg,... Start Date: 09/29/19 Status: Ordereddoxylamine-pyridoxine 10 mg-10 mg oral delayed release tablet 2 tablet, By Mouth, Daily at bedtime, # 60 tablet, 2 Refills, Maintenance, 09/22/20 11:24:00 EDT, CRTablet, [facility]/pharmacy #[id number], Partial fill upon patient request if [...] Sertraline now, helping and has therapist and jmapgnzmjtr2Owyse in the morning for nausea and anxiety Social History Social History Type Response Smoking Status Former smoker, quit more radha n 30 days ago entered on: 08/04/20 Sex
--- OUTSIDE RECORDS SUMMARY | 2022-04-01 00:31 | XMS_ITS | Continuity of Care Document ---
:1990 Author Organization [facility] Address [address] [place] [address], [address] [place] [address]- Care Team Providers Name Role Phone Jarrod Sherman MD Primary Care Physician [place] [facility] [place] Date(s[place] 07/14/21 - 08/13/21 [facility] [address], [address] [place] [id number] Allergies, Adverse Reactions, Alerts Substance Reaction Severity [...] 03/06/21 15:09:00 EDT, Route to Pharmacy Electronically, [facility]/pharmacy #[id number], Partial fill upon patient request if the prescription is for a schedule II op... Start Date: 03/06/21 Status: Orderedlabetalol 200 mg oral tablet 1 tablet, By Mouth, 2 times a day, # 60 tablet, 0 Refills, [facility] STORE 51976, 154.9, cm, 12/18/20 12:26:00 EDT, Height, 106.7, [...] Sertraline now, helping and has therapist and ewofrszafnv8Odlyw in the morning for nausea and anxiety Social History Social History Type Response Smoking Status Former smoker, quit more radha n 30 days ago entered on: 08/04/20 Sex
--- OUTSIDE RECORDS SUMMARY | 2022-04-01 00:31 | XMS_ITS | Continuity of Care Document ---
:[address] [facility] [email or web address] [facility] Address [address] [place] [address]- Care Team Providers Name Role Phone Jarrod Sherman MD Primary Care Physician Encounter [facility] [place] [place] Date(s): 11/07/20 - 01/22/21 [facility] [email or web address] [address] [address]- Attending Physician: Pedro GAMBOA [OB], Anastasia Haynes [...] 10/23/19 8:29:00 EDT, Route to Pharmacy Electronically, [facility]/pharmacy #[id number], 154.94, cm, 10/23/19 5:18:00 EDT, Height, 97.27, kg, 10/21/19 8:42:00 EDT, Dry Weight Start Date: 10/23/19 Status: Orderedbisacodyl 5 mg oral delayed release tablet 1 tablet = 5 mg, By Mouth, Daily, PRN as needed for constipation, # 20 tablet, 0 Refills, Acute 06/16/21 0:00:00 EST, 11/16/20 9:05:00 EDT, CR Tablet, [facility]/pharmacy #[id number], Partial fill upon patient request [...] 0 Refills, Maintenance, 12/18/20 5:20:00 EDT, Capsule, [facility]/pharmacy #[id number], Partial fill upon patient request if the prescription is for a schedule II opioid drug., 154.9, cm, 12/17/20 16:47:00... Start Date: 12/18/20 Status: Orderedferrous sulfate 325 mg oral tablet See Instructions, TAKE 1 TABLET BY MOUTH 3 TIMES A DAY, # 90 tablet, 0 Refills, Maintenance, [id number], 154.9, cm, 12/18/20 12:26:00 EDT, Height, 106.7, [...] 06/16/21 0:00:00 EST, 11/16/20 9:03:00 EDT, Cream, [facility]/pharmacy #[id number], Partial fill upon patient request [...] DAY, # 60 tablet, 0 Refills, Maintenance, [facility] [id number], 154.9, cm, 12/18/20 12:26:00 EDT, Height, 106.7, [...] 0 Refills, Maintenance, 12/18/20 8:37:00 EDT, Tablet, [facility]/pharmacy #[id number], Partial fill upon patient request [...] Sertraline now, helping and has therapist and [id number] in the morning for nausea and anxiety Social History Social History Type Response Smoking Status Former smoker, quit more radha n 30 days ago entered on: 08/04/20 Sex
--- OUTSIDE RECORDS SUMMARY | 2022-04-01 00:31 | XMS_ITS | Continuity of Care Document ---
:1990 Author Organization [facility] [employer] [facility] Address [address] [place] [address]- Care Team Providers Name Role Phone Jarrod Sherman MD Primary Care Physician Encounter [facility] [place] Date(s): 09/22/20 - 09/29/20 [facility] [employer] [address] [place] [address], [address] [place] [id number] Attending Physician: Delroy Almanzar MD Referring Physician: Jarrod Sherman MD Allergies, [...] EDT, Route to Pharmacy Electronically, [facility]/pharmacy #[id number], 154.94, cm, 10/23/19 5:18:00 EDT, [...] 17:57:00 EDT, Route to Pharmacy Electronically, [facility]/pharmacy #[id number], 154.94, cm, 09/27/19 2:08:00 EDT, Height, 95.9, kg,... Start Date: 09/29/19 Status: Ordereddoxylamine-pyridoxine 10 mg-10 mg oral delayed release tablet 2 tablet, By Mouth, Daily at bedtime, # 60 tablet, 2 Refills, Maintenance, 09/22/20 11:24:00 EDT, CRTablet, [facility]/pharmacy #[id number], Partial fill upon patient request [...] Anxiety(Confirmed)1 Active Arthritis(Confirmed) Active Bipolar disorder(Confirmed) Active Vulvar cyst(Confirmed) Active Depression(Confirmed) Active Fibromyalgia(Confirmed) [...] Sertraline now, helping and has therapist and [id number] in the morning for nausea and anxiety Vital Signs Most recent to oldest [Reference Range]: 1 Height 154.94 cm (09/22/20 10:45 AM) Weight 107.45 kg (09/22/20 10:45 AM) Body Mass Index [18.5-24.99] 44.76 *>HHI* (09/22/20 10:45 AM) Blood Pressure [90-138/55-84 mm Hg] 131/88 mm Hg (09/22/20 10:45 AM) Blood pressure sites Arm, right (09/22/20 10:45 AM) Weight Obtained Via Standing scale (09/22/20 10:45 AM) Social History Social History Type Response Smoking Status Former smoker, quit more radha n 30 days ago entered on: 08/04/20 Sex
--- OUTSIDE RECORDS SUMMARY | 2022-04-01 00:31 | XMS_ITS | Continuity of Care Document ---
:1990 Author [facility] Address [address] [place] [address], [address] [place] [address]- Care Team Providers Name Role Phone Jarrod Sherman MD Primary Care Physician [place] [facility] [place] 07/04/21 - 08/03/21 [facility] [address], [address] [place] [id number] Allergies, Adverse Reactions, Alerts Substance Reaction [...] 03/06/21 15:09:00 EDT, Route to Pharmacy Electronically, [facility]/pharmacy #[id number], Partial fill upon patient request if the prescription is for a schedule II op... Start Date: 03/06/21 Status: Orderedlabetalol 200 mg oral tablet 1 tablet, By Mouth, 2 times a day, # 60 tablet, 0 Refills, [facility] [id number], 154.9, cm, 12/18/20 12:26:00 EDT, Height, 106.7, [...] Sertraline now, helping and has therapist and [id number] in the morning for nausea and anxiety Social History Social History Type Response Smoking Status Former smoker, quit more radha n 30 days ago entered on: 08/04/20 Sex
--- OUTSIDE RECORDS SUMMARY | 2022-04-01 00:31 | XMS_ITS | Continuity of Care Document ---
:1990 Author Organization [facility] Address [address] [place] [address]- Care Team Providers Name Role Phone Jarrod Sherman MD Primary Care Physician [place] [facility] [place] 03/31/21 - 04/30/[address] [address]- Allergies, Adverse Reactions, Alerts Substance Reaction Severity [...] 03/06/21 15:09:00 EDT, Route to Pharmacy Electronically, [facility]/pharmacy #[id number], Partial fill upon patient request if the prescription is for a schedule II op... Start Date: 03/06/21 Status: Orderedlabetalol 200 mg oral tablet 1 tablet, By Mouth, 2 times a day, # 60 tablet, 0 Refills, [facility] [id number], 154.9, cm, 12/18/20 12:26:00 EDT, Height, 106.7, [...] Sertraline now, helping and has therapist and [id number] in the morning for nausea and anxiety Social History Social History Type Response Smoking Status Former smoker, quit more radha n 30 days ago entered on: 08/04/20 Sex
--- OUTSIDE RECORDS SUMMARY | 2022-04-01 00:31 | XMS_ITS | Continuity of Care Document ---
:1990 Author Organization [facility] Address [address] [place] [address], [address] [place] [address]- Care Team Providers Name Role Phone Jarrod Sherman MD Primary Care Physician [place] [facility] [place]): 11/02/20 - 12/02/20 [facility] [address] [place] [address], [address] [place] [id number] Allergies, Adverse Reactions, Alerts Substance [...] 2 Refills, Maintenance, 09/22/20 11:24:00 EDT, CRTablet, [facility]/pharmacy #[id number], Partial fill upon patient [...] Sertraline now, helping and has therapist and [id number] in the morning for nausea and anxiety Social History Social History Type Response Smoking Status Former smoker, quit more radha n 30 days ago entered on: 08/04/20 Sex
--- OUTSIDE RECORDS SUMMARY | 2022-04-01 00:31 | XMS_ITS | Continuity of Care Document ---
:1990 Author Organization [facility] [email or web address] [facility] Address [address] [place] [address], [address] [place] [address]- Care Team Providers Name Role Phone Jarrod Sherman MD Primary Care Physician [facility] Date(s[facility] 05/12/21 [facility] [address], [address] [place] [id number] Allergies, Adverse Reactions, Alerts Substance Reaction Severity [...] 06/12/21 15:59:00 EST, 05/29/21 15:59:00 EST, Capsule, [facility]/pharmacy #[id number], Partial fill upon patient request [...] 03/06/21 15:09:00 EDT, Route to Pharmacy Electronically, [facility]/pharmacy #[id number], Partial fill upon patient request if the prescription is for a schedule II op... Start Date: 03/06/21 Status: Orderedlabetalol 200 mg oral tablet 1 tablet, By Mouth, 2 times a day, # 60 tablet, 0 Refills, [facility], 154.9, cm, 12/18/20 12:26:00 EDT, Height, 106.7, [...] Sertraline now, helping and has therapist and [id number] in the morning for nausea and anxiety Social History Social History Type Response Smoking Status Former smoker, quit more radha n 30 days ago entered on: 08/04/20 Sex
--- OUTSIDE RECORDS SUMMARY | 2022-04-01 00:31 | XMS_ITS | Continuity of Care Document ---
:1990 Author Organization [facility] Address [address] [place] [address], [address] [place] [address]- Care Team Providers Name Role Phone Jarrod Sherman MD Primary Care Physician Encounter [facility] [place] [place] Date(s): 03/23/21 - 03/30/21 [facility] [employer] [address], [address] [place] [id number] Attending Physician: Denise Laws MD Admitting Physician: Gabriella Camacho MD Referring Physician: Jarrod Sherman MD Allergies, [...] 15:09:00 EDT, Route to Pharmacy Electronically, [facility]/pharmacy #[id number], Partial fill upon patient request if the [...] 0 Refills, Maintenance, 02/28/21 12:16:00 EDT, Tablet, [facility]/pharmacy #[id number], Partial fill upon patient request if the prescription is for a schedule II opioid drug., 154.94, cm, 02/23/21 10:45:00... Start Date: 02/28/21 Status: Orderedibuprofen 600 mg oral tablet 600 mg, 1, tablet, By Mouth, Every 8 hours, # 50 tablet, Refills 0, Tot. Refills 0, Maintenance, 03/06/21 15:09:00 EDT, Route to Pharmacy Electronically, [facility]/pharmacy #[id number], Partial fill upon patient request if the prescription is for a schedule II op... Start Date: 03/06/21 Status: Orderedlabetalol 200 mg oral tablet 1 tablet, By Mouth, 2 times a day, # 60 tablet, 0 Refills, [facility] 76966, 154.9, cm, 12/18/20 12:26:00 EDT, Height, 106.7, [...] Sertraline now, helping and has therapist and [id number] in the morning for nausea and anxiety Vital Signs Most recent to oldest [Reference Range]: 1 Height 154.94 cm (03/23/21 11:52 AM) Weight 98.1 kg (03/23/21 11:52 AM) Body Mass Index [18.5-24.99] 40.86 *>HHI* (03/23/21 11:52 AM) Blood Pressure [90-138/55-84 mm Hg] 121/59 mm Hg (03/23/21 11:52 AM) Blood pressure sites Arm, right (03/23/21 11:52 AM) Weight Obtained Via Standing scale (03/23/21 11:52 AM) Social History Social History Type Response Smoking Status Former smoker, quit more radha n 30 days ago entered on: 08/04/20 Sex
--- OUTSIDE RECORDS SUMMARY | 2022-04-01 00:31 | XMS_ITS | Continuity of Care Document ---
:1990 Author Organization [facility] Address [address] [place] [address], [address] [place] [address]- Care Team Providers Name Role Phone Jarrod Sherman MD Primary Care Physician En[place] [facility] [place] Date(s): 10/25/21 - 11/24/21 [facility] [address], [address] [place] [id number] Allergies, Adverse Reactions, Alerts Substance Reaction Severity [...] 15:09:00 EDT, Route to Pharmacy Electronically, [facility]/pharmacy #[id number], Partial fill upon patient request if the prescription is for a schedule II op... Start Date: 03/06/21 Status: Orderedlabetalol 200 mg oral tablet 1 tablet, By Mouth, 2 times a day, # 60 tablet, 0 Refills, [facility] [id number], 154.9, cm, 12/18/20 12:26:00 EDT, Height, 106.7, [...] Sertraline now, helping and has therapist and seynswkxtro2Covkl in the morning for nausea and anxiety Social History Social History Type Response Smoking Status Former smoker, quit more radha n 30 days ago entered on: 08/04/20 Sex
--- OUTSIDE RECORDS SUMMARY | 2022-04-01 00:31 | XMS_ITS | Continuity of Care Document ---
:1989 Author Organization [facility] Address [address] [place] [address]- Care Team Providers Name Role Phone Jarrod Sherman MD Primary Care Physician [place] [facility] [place]06[place] - 01/13/21 [facility] [address] [address]- Attending Physician: Irene Saenz MD Allergies, Adverse [...] 0 Refills, Maintenance, 12/18/20 5:20:00 EDT, Capsule, [facility]/pharmacy #[id number], Partial fill upon patient request if the prescription is for a schedule II opioid drug., 154.9, cm, 12/17/20 16:47:00... Start Date: 12/18/20 Status: Orderedferrous sulfate 325 mg oral tablet See Instructions, TAKE 1 TABLET BY MOUTH 3 TIMES A DAY, # 90 tablet, 0 Refills, Maintenance, [facility], 154.9, cm, 12/18/20 12:26:00 EDT, Height, 106.7, [...] DAY, # 60 tablet, 0 Refills, Maintenance, [facility] [id number], 154.9, cm, 12/18/20 12:26:00 EDT, Height, 106.7, [...] 0 Refills, Maintenance, 12/18/20 8:37:00 EDT, Tablet, [facility]/pharmacy #[id number], Partial [...] Sertraline now, helping and has therapist and [id number] in the morning for nausea and anxiety Social History Social History Type Response Smoking Status Former smoker, quit more radha n 30 days ago entered on: 08/04/20 Sex
--- OUTSIDE RECORDS SUMMARY | 2022-04-01 00:31 | XMS_ITS | Continuity of Care Document ---
:1989 Author Organization [facility] Address [address] [place] [address]- Care Team Providers Name Role Phone Jarrod Sherman MD Primary Care Physician En[facility] [place] Date(s): 10/06/20 - 02/03/21 [facility] [employer] [address] [address]- Attending Physician: Pedro GAMBOA [OB], Anastasia Haynes [...] 10/23/19 8:29:00 EDT, Route to Pharmacy Electronically, [facility]/pharmacy #[id number], 154.94, cm, 10/23/19 5:18:00 EDT, Height, 97.27, kg, 10/21/19 8:42:00 EDT, Dry Weight Start Date: 10/23/19 Status: Orderedbisacodyl 5 mg oral delayed release tablet 1 tablet = 5 mg, By Mouth, Daily, PRN as needed for constipation, # 20 tablet, 0 Refills, Acute 06/16/21 0:00:00 EST, 11/16/20 9:05:00 EDT, CR Tablet, [facility]/pharmacy #[id number], Partial fill upon patient [...] 0 Refills, Maintenance, 12/18/20 5:20:00 EDT, Capsule, [facility]/pharmacy #[id number], Partial fill upon patient request if the prescription is for a schedule II opioid drug., 154.9, cm, 12/17/20 16:47:00... Start Date: 12/18/20 Status: Orderedferrous sulfate 325 mg oral tablet See Instructions, TAKE 1 TABLET BY MOUTH 3 TIMES A DAY, # 90 tablet, 0 Refills, Maintenance, [facility], 154.9, cm, 12/18/20 12:26:00 EDT, Height, 106.7, [...] 06/16/21 0:00:00 EST, 11/16/20 9:03:00 EDT, Cream, [facility]/pharmacy #[id number], Partial fill upon patient [...] DAY, # 60 tablet, 0 Refills, Maintenance, [facility] [id number], 154.9, cm, 12/18/20 12:26:00 EDT, Height, 106.7, [...] 0 Refills, Maintenance, 12/18/20 8:37:00 EDT, Tablet, [facility]/pharmacy #[id number], Partial fill upon patient [...] Sertraline now, helping and has therapist and [id number] in the morning for nausea and anxiety Social History Social History Type Response Smoking Status Former smoker, quit more radha n 30 days ago entered on: 08/04/20 Sex
--- OUTSIDE RECORDS SUMMARY | 2022-04-01 00:31 | XMS_ITS | Continuity of Care Document ---
:1990 Author Organization [facility] Address [address] [place] [address], [address] [place] [address]- Care Team Providers Name Role Phone Jarrod Sherman MD Primary Care Physician En[facility] [place] Date(s): 06/27/21 - 07/27/21 [facility] [address], [address] [place] [id number] Allergies, Adverse Reactions, Alerts [...] 03/06/21 15:09:00 EDT, Route to Pharmacy Electronically, [facility]/pharmacy #[id number], Partial fill upon patient request if the prescription is for a schedule II op... Start Date: 03/06/21 Status: Orderedlabetalol 200 mg oral tablet 1 tablet, By Mouth, 2 times a day, # 60 tablet, 0 Refills, [facility] 14574, 154.9, cm, 12/18/20 12:26:00 EDT, Height, 106.7, [...] Sertraline now, helping and has therapist and tlpqthkekay4Suslx in the morning for nausea and anxiety Social History Social History Type Response Smoking Status Former smoker, quit more radha n 30 days ago entered on: 08/04/20 Sex
--- OUTSIDE RECORDS SUMMARY | 2022-04-01 00:31 | XMS_ITS | Continuity of Care Document ---
:1990 Author Organization [facility] Address [address] [place] [address]- Care Team Providers Name Role Phone Jarrod Sherman MD Primary Care Physician [place] [facility] [place]04/20 - 08/11/20 [facility] [address] [id number] Attending Physician: Denise Laws MD Referring [...] 10/23/19 8:29:00 EDT, Route to Pharmacy Electronically, [facility]/pharmacy #[id number], 154.94, cm, 10/23/19 [...] 09/29/19 17:57:00 EDT, Route to Pharmacy Electronically, [facility]/pharmacy #[id number], 154.94, cm, 09/27/19 [...] 0 Refills, Maintenance, 10/19/19 8:53:00 EDT, Tablet, [facility]/pharmacy #[id number], 154.94, cm, 10/16/19 [...] Sertraline now, helping and has therapist and [id number] in the morning for nausea and anxiety Procedures Procedure Date Related Diagnosis Body Site Status Adenoidectomy Completed EGD (esophagogastroduodenoscopy) gastric Completed outlet reduction Vital Signs Most recent to oldest [Reference Range]: 1 2 Height 154.94 cm 154.94 cm (08/04/20 9:28 AM) (08/04/20 9:18 AM) Social History Social History Type Response Smoking Status Former smoker, quit more radha n 30 days ago entered on: 08/04/20 Sex
--- OUTSIDE RECORDS SUMMARY | 2022-04-01 00:31 | XMS_ITS | Continuity of Care Document ---
:1990 Author Organization [facility] ic Address [address] [place] [address]- Care Team Providers Name Role Phone Jarrod Sherman MD Primary Care Physician En[place] [facility] [place] Date(s): 09/08/20 - 10/08/[address] [id number] Allergies, Adverse Reactions, Alerts Substance Reaction [...] 17:57:00 EDT, Route to Pharmacy Electronically, [facility]/pharmacy #[id number], 154.94, cm, 09/27/19 2:08:00 EDT, Height, 95.9, kg,... Start Date: 09/29/19 Status: Ordereddoxylamine-pyridoxine 10 mg-10 mg oral delayed release tablet 2 tablet, By Mouth, Daily at bedtime, # 60 tablet, 2 Refills, Maintenance, 09/22/20 11:24:00 EDT, CRTablet, [facility]/pharmacy #[id number], Partial fill upon [...] Sertraline now, helping and has therapist and [id number] in the morning for nausea and anxiety Social History Social History Type Response Smoking Status Former smoker, quit more radha n 30 days ago entered on: 08/04/20 Sex
--- OUTSIDE RECORDS SUMMARY | 2022-04-01 00:31 | XMS_ITS | Continuity of Care Document ---
:1990 Author Organization [facility] Address [address] [place] [address]- Care Team Providers Name Role Phone Jarrod Sherman MD Primary Care Physician En[place] [facility] [place] Date(s): 11/19/20 - 11/19/[address] [address]- Discharge Disposition: A-D/C Home Attending Physician: Wei Sorenson MD Admitting Physician: Wei Sorenson MD Referring Physician: Wei Sorenson MD Allergies, Adverse Reactions, Alerts Substance Reaction [...] 10/23/19 8:29:00 EDT, Route to Pharmacy Electronically, [facility]/pharmacy #[id number], 154.94, cm, 10/23/19 5:18:00 EDT, Height, 97.27, kg, 10/21/19 8:42:00 EDT, Dry Weight Start Date: 10/23/19 Status: Orderedbisacodyl 5 mg oral delayed release tablet 1 tablet = 5 mg, By Mouth, Daily, PRN as needed for constipation, # 20 tablet, 0 Refills, Acute 06/16/21 0:00:00 EST, 11/16/20 9:05:00 EDT, CR Tablet, [facility]/pharmacy #[id number], Partial fill upon patient request [...] 2 Refills, Maintenance, 09/22/20 11:24:00 EDT, CRTablet, [facility]/pharmacy #[id number], Partial fill upon patient request if the prescription is for a schedule II opioid drug., 2 tablet By Mouth Daily at bedtim... Start Date: 09/22/20 Status: Orderedhydrocortisone-pramoxine 1%-1% topical cream 1 application, Topically, 3 times a day, # 57 Gm, 0 Refills, Acute 06/16/21 0:00:00 EST, 11/16/20 9:03:00 EDT, Cream, [facility]/pharmacy #[id number], Partial fill upon patient request [...] Sertraline now, helping and has therapist and culfjbqywme3Mzuly in the morning for nausea and anxiety Procedures Procedure Date Related Diagnosis Body Site Status [place] tooth Completed Vital Signs Most recent to oldest [Reference 1 2 3 Range]: Weight 104.4 kg (11/19/20 3:50 AM) Oxygen Saturation [94-100 %] 100 % 100 % 100 % (11/19/20 6:47 AM) (11/19/20 6:35 AM) (11/19/20 6:16 A M) Blood Pressure [90-138/55-84 mm 136/80 mm Hg 129/58 mm Hg 123/72 mm Hg Hg] (11/19/20 6:47 AM) (11/19/20 6:35 AM) (11/19/20 6:16 A M) Respiratory Rate [16-30 br/min] 18 br/min (11/19/20 4:29 AM) Temperature [96.8-100.4 DegF] 97.7 DegF (11/19/20 3:50 AM) Mode of Delivery (Oxygen) Room air (11/19/20 4:29 AM) Blood pressure sites Arm, right (11/19/20 4:29 AM) Temperature Route Oral (11/19/20 3:50 AM) Dry Weight 104.4 kg (11/19/20 3:50 AM) Weight Obtained Via Standing scale (11/19/20 3:50 AM) Dry Weight Obtained Via Standing scale (11/19/20 3:50 AM) Social History Social History Type Response Smoking Status Former smoker, quit more radha n 30 days ago entered on: 08/04/20 Sex
--- OUTSIDE RECORDS SUMMARY | 2022-04-01 00:31 | XMS_ITS | Continuity of Care Document ---
:1989 Author Organization [facility] Address [address] [place] [address], [address] [place] [address]- Care Team Providers Name Role Phone Jarrod Sherman MD Primary Care Physician En[place] [facility] [place] Date(s): 06/07/21 - 07/07/21 [facility] [address] [place] [address], [address] [place] [id number] Allergies, Adverse Reactions, Alerts Substance Reaction [...] 03/06/21 15:09:00 EDT, Route to Pharmacy Electronically, [facility]/pharmacy #[id number], Partial fill upon patient request if the prescription is for a schedule II op... Start Date: 03/06/21 Status: Orderedlabetalol 200 mg oral tablet 1 tablet, By Mouth, 2 times a day, # 60 tablet, 0 Refills, [facility] 21112, 154.9, cm, 12/18/20 12:26:00 EDT, Height, 106.7, [...] Sertraline now, helping and has therapist and [id number] in the morning for nausea and anxiety Social History Social History Type Response Smoking Status Former smoker, quit more radha n 30 days ago entered on: 08/04/20 Sex
--- OUTSIDE RECORDS SUMMARY | 2022-04-01 00:31 | XMS_ITS | Continuity of Care Document ---
:1990 Author Organization [facility] Address [address] [place] [id number]- Care Team Providers Name Role Phone Jarrod Sherman MD Primary Care Physician Encounter [facility] [place] Date(s): 12/21/20 - 12/28/20 [facility] [address] [address]- Attending Physician: Veto GAMBOA, Denise Quesada Allergies, [...] 10/23/19 8:29:00 EDT, Route to Pharmacy Electronically, [facility]/pharmacy #[id number], 154.94, cm, 10/23/19 5:18:00 EDT, Height, 97.27, kg, 10/21/19 8:42:00 EDT, Dry Weight Start Date: 10/23/19 Status: Orderedbisacodyl 5 mg oral delayed release tablet 1 tablet = 5 mg, By Mouth, Daily, PRN as needed for constipation, # 20 tablet, 0 Refills, Acute 06/16/21 0:00:00 EST, 11/16/20 9:05:00 EDT, CR Tablet, [facility]/pharmacy #[id number], Partial [...] 0 Refills, Maintenance, 12/18/20 5:20:00 EDT, Capsule, [facility]/pharmacy #[id number], Partial fill upon patient request if the prescription is for a schedule II opioid drug., 154.9, cm, 12/17/20 16:47:00... Start Date: 12/18/20 Status: Orderedferrous sulfate 325 mg oral tablet 1 tablet = 325 mg, By Mouth, 3 times a day, # 90 tablet, 0 Refills, Maintenance, 12/18/20 5:21:00 EDT, Tablet, [facility]/pharmacy #[id number], Partial [...] 06/16/21 0:00:00 EST, 11/16/20 9:03:00 EDT, Cream, [facility]/pharmacy #[id number], Partial [...] 0 Refills, Maintenance, 12/18/20 5:20:00 EDT, Tablet, [facility]/pharmacy #[id number], Partial [...] 0 Refills, Maintenance, 12/18/20 8:37:00 EDT, Tablet, [facility]/pharmacy #[id number], Partial [...] tablet, 0 Refills, Maintenance, 12/18/20 5:21:00 EDT, Tablet,[facility]/pharmacy #[id number], Partial fill [...] Sertraline now, helping and has therapist and [id number] in the morning for nausea and anxiety Vital Signs Most recent to oldest [Reference Range]: 1 Blood Pressure [90-138/55-84 mm Hg] 140/96 mm Hg *H* (12/21/20 11:45 AM) Blood pressure sites Arm, right (12/21/20 11:45 AM) Social History Social History Type Response Smoking Status Former smoker, quit more radha n 30 days ago entered on: 08/04/20 Sex
--- OUTSIDE RECORDS SUMMARY | 2022-04-01 00:32 | XMS_ITS | Continuity of Care Document ---
:1990 Author Organization [facility] Address [address] [place] [phone]- Care Team Providers Name Role Phone Jarrod Sherman MD Primary Care Physician [place] [facility] [place] 11/28/[place] - 11/28/[address] [address]- Discharge Disposition: A-D/C Home Attending Physician: Pedro [...] 10/23/19 8:29:00 EDT, Route to Pharmacy Electronically, [facility]/pharmacy #[id number], 154.94, cm, 10/23/19 5:18:00 EDT, Height, 97.27, kg, 10/21/19 8:42:00 EDT, Dry Weight Start Date: 10/23/19 Status: Orderedbisacodyl 5 mg oral delayed release tablet 1 tablet = 5 mg, By Mouth, Daily, PRN as needed for constipation, # 20 tablet, 0 Refills, Acute 06/16/21 0:00:00 EST, 11/16/20 9:05:00 EDT, CR Tablet, [facility]/pharmacy #[id number], Partial fill upon patient [...] 2 Refills, Maintenance, 09/22/20 11:24:00 EDT, CRTablet, [facility]/pharmacy #[id number], Partial fill upon patient [...] 06/16/21 0:00:00 EST, 11/16/20 9:03:00 EDT, Cream, [facility]/pharmacy #[id number], Partial fill upon patient [...] Sertraline now, helping and has therapist and [id number] in the morning for nausea and anxiety Social History Social History Type Response Smoking Status Former smoker, quit more radha n 30 days ago entered on: 08/04/20 Sex
--- OUTSIDE RECORDS SUMMARY | 2022-04-01 00:32 | XMS_ITS | Continuity of Care Document ---
:1990 Author Organization [facility] Address [address] [place] [phone]- Care Team Providers Name Role Phone Lane GAMBOA, Jarrod Oneil Primary Care Physician [place] [facility] [place] 10/23/[address] [address]- [facility] Discharge Disposition: A-D/C Home Attending Physician: Delroy Almanzar MD Attending Physician: Natividad Jiang DO Admitting Physician: [...] EDT, Route to Pharmacy Electronically, [facility]/pharmacy #[id number], 154.94, cm, 10/23/19 5:18:00 EDT, [...] EDT, Route to Pharmacy Electronically, [facility]/pharmacy #[id number], 154.94, cm, 09/27/19 2:08:00 EDT, [...] 0 Refills, Maintenance, 10/19/19 8:53:00 EDT, Tablet, [facility]/pharmacy #[id number], 154.94, cm, 10/16/19 8:22:00 EDT, [...] [Reference Range]: Height 154.94 cm 154.94 cm 154.94 cm (10/23/19 9:23 AM) (10/23/19 5:18 AM) (10/23/19 12:30 AM) Weight 97.27 kg (10/21/19 8:42 AM) Oxygen Saturation [94-100 %] 98 % 100 % 99 % (10/23/19 12:30 AM) (10/22/19 10:20 PM) (10/22/19 3:00 PM) Pulse Rate [55-90 bpm] 93 bpm 67 bpm 65 bpm *H* (10/23/19 9:23 AM) (10/23/19 5:18 AM ) (10/23/19 10:46 AM) Body Mass Index [18.5-24.99] 40.52 *>HHI* (10/21/19 8:42 AM) Blood Pressure [90-138/55-84 mm 131/74 mm Hg 137/70 mm Hg 110/52 mm Hg Hg] (10/23/19 10:46 AM) (10/23/19 9:23 AM) (10/23/19 5:18 AM) Respiratory Rate [16-30 br/min] 18 br/min 18 br/min 16 br/min (10/23/19 9:23 AM) (10/23/19 12:30 AM) (10/22/19 10:20 PM) Temperature [96.8-100.4 DegF] 98.7 DegF 98.2 DegF 98 .4 DegF (10/23/19 9:23 AM) (10/22/19 10:20 PM) (10/22/19 11:05 AM) Mode of Delivery (Oxygen) Room air Room air (10/23/19 12:30 AM) (10/21/19 6:00 PM) Blood pressure sites Arm, right Arm, right Arm, right (10/23/19 9:23 AM) (10/23/19 5:18 AM) (10/22/19 10:20 PM) Temperature Route Oral Oral Oral (10/23/19 9:23 AM) (10/22/19 10:20 PM) (10/22/19 7:30 AM) Dry Weight 97.27 kg (10/21/19 8:42 AM) Weight Obtained Via Standing scale (10/21/19 8:42 AM) Social History Social History Type Response Smoking Status Former smoker, quit more radha n 30 days ago entered on: 09/07/19 Sex
--- OUTSIDE RECORDS SUMMARY | 2022-04-01 00:32 | XMS_ITS | Continuity of Care Document ---
:1990 Author [facility] Address [address] [place] [address], [address] [place] [address]- Care Team Providers Name Role Phone Lane GAMBOA, Jarrod Oneil Primary Care Physician [place] [facility] [place] 11[place]04/20 [facility] [employer] [facility] [address] [place] [address], [address] [place] [address]- Allergies, Adverse Reactions, Alerts Substance Reaction Severity [...] 10/23/19 8:29:00 EDT, Route to Pharmacy Electronically, [facility]/pharmacy #[id number], 154.94, cm, 10/23/19 [...] 2 Refills, Maintenance, 09/22/20 11:24:00 EDT, CRTablet, [facility]/pharmacy #[id number], Partial fill upon [...] Sertraline now, helping and has therapist and [id number] in the morning for nausea and anxiety Social History Social History Type Response Smoking Status Former smoker, quit more radha n 30 days ago entered on: 08/04/20 Sex
--- OUTSIDE RECORDS SUMMARY | 2022-04-01 00:32 | XMS_ITS | Continuity of Care Document ---
:1990 Author Organization [facility] Address [address] [place] [address]- Care Team Providers Name Role Phone Lane GAMBOA, Jarrod Oneil Primary Care Physician Encounter [facility] [place] Date(s): 11/07/20 - 01/08/21 [facility] [address] [address]- Attending Physician: Denise Laws MD Referring Physician: [...] EDT, Route to Pharmacy Electronically, [facility]/pharmacy #[id number], 154.94, cm, 10/23/19 5:18:00 EDT, Height, 97.27, kg, 10/21/19 8:42:00 EDT, Dry Weight Start Date: 10/23/19 Status: Orderedbisacodyl 5 mg oral delayed release tablet 1 tablet = 5 mg, By Mouth, Daily, PRN as needed for constipation, # 20 tablet, 0 Refills, Acute 06/16/21 0:00:00 EST, 11/16/20 9:05:00 EDT, CR Tablet, [facility]/pharmacy #[id number], Partial fill upon patient [...] Refills, Maintenance, 12/18/20 5:20:00 EDT, Capsule, [facility]/pharmacy #[id number], Partial fill upon patient request if the prescription is for a schedule II opioid drug., 154.9, cm, 12/17/20 16:47:00... Start Date: 12/18/20 Status: Orderedferrous sulfate 325 mg oral tablet 1 tablet = 325 mg, By Mouth, 3 times a day, # 90 tablet, 0 Refills, Maintenance, 12/18/20 5:21:00 EDT, Tablet, [facility]/pharmacy #[id number], Partial fill upon patient [...] 0:00:00 EST, 11/16/20 9:03:00 EDT, Cream, [facility]/pharmacy #[id number], Partial fill upon patient [...] Refills, Maintenance, 12/18/20 5:20:00 EDT, Tablet, [facility]/pharmacy #[id number], Partial fill upon patient [...] Refills, Maintenance, 12/18/20 8:37:00 EDT, Tablet, [facility]/pharmacy #[id number], Partial fill upon patient [...] 0 Refills, Maintenance, 12/18/20 5:21:00 EDT, Tablet,[facility]/pharmacy #[id number], Partial fill upon patient [...] Sertraline now, helping and has therapist and [id number] in the morning for nausea and anxiety Social History Social History Type Response Smoking Status Former smoker, quit more radha n 30 days ago entered on: 08/04/20 Sex
--- OUTSIDE RECORDS SUMMARY | 2022-04-01 00:32 | XMS_ITS | Continuity of Care Document ---
:1990 Author Organization [facility] Address [address] [place] [id number]- Care Team Providers Name Role Phone Jarrod Sherman MD Primary Care Physician Encounter [facility] [place] Date(s): 07/07/20 - 08/06/[address] [address]- Attending Physician: Kalen Yusuf Admitting Physician: Kalen Yusuf Referring Physician: AdmtrKalen Allergies, Adverse Reactions, Alerts [...] 09/29/19 17:57:00 EDT, Route to Pharmacy Electronically, [facility]/pharmacy #[id number], 154.94, cm, 09/27/19 2:08:00 EDT, [...] 0 Refills, Maintenance, 10/19/19 8:53:00 EDT, Tablet, [facility]/pharmacy #[id number], 154.94, cm, 10/16/19 8:22:00 EDT, [...] Sertraline now, helping and has therapist and [id number] in the morning for nausea and anxiety Social History Social History Type Response Smoking Status Former smoker, quit more radha n 30 days ago entered on: 08/04/20 Sex
--- OUTSIDE RECORDS SUMMARY | 2022-04-01 00:32 | XMS_ITS | Continuity of Care Document ---
:1990 Author Organization [facility] [employer] [facility] Address [address] [place] [address], [address] [place] [phone]- Care Team Providers Name Role Phone Lane GAMBOA, Jarrod Oneil Primary Care Physician Encounter [facility] [place] Date(s): 03/20/21 - 03/27/21 [facility] [employer] [address], [address] [place] [address]- Attending Physician: Pedro GAMBOA [OB], Anastasia Haynes [...] 03/06/21 15:09:00 EDT, Route to Pharmacy Electronically, [facility]/pharmacy #[id number], Partial fill upon patient request if the [...] 0 Refills, Maintenance, 02/28/21 12:16:00 EDT, Tablet, [facility]/pharmacy #[id number], Partial fill upon patient request if the prescription is for a schedule II opioid drug., 154.94, cm, 02/23/21 10:45:00... Start Date: 02/28/21 Status: Orderedibuprofen 600 mg oral tablet 600 mg, 1, tablet, By Mouth, Every 8 hours, # 50 tablet, Refills 0, Tot. Refills 0, Maintenance, 03/06/21 15:09:00 EDT, Route to Pharmacy Electronically, [facility]/pharmacy #[id number], Partial fill upon patient request if the prescription is for a schedule II op... Start Date: 03/06/21 Status: Orderedlabetalol 200 mg oral tablet 1 tablet, By Mouth, 2 times a day, # 60 tablet, 0 Refills, [id number], 154.9, cm, 12/18/20 12:26:00 EDT, Height, 106.7, [...] Sertraline now, helping and has therapist and [id number] in the morning for nausea and anxiety Vital Signs Most recent to oldest [Reference Range]: 1 Height 154.94 cm (03/20/21 3:46 PM) Weight 100.7 kg (03/20/21 3:46 PM) Body Mass Index [18.5-24.99] 41.95 *>HHI* (03/20/21 3:46 PM) Blood Pressure [90-138/55-84 mm Hg] 120/66 mm Hg (03/20/21 3:46 PM) Blood pressure sites Arm, right (03/20/21 3:46 PM) Weight Obtained Via Standing scale (03/20/21 3:46 PM) Social History Social History Type Response Smoking Status Former smoker, quit more radha n 30 days ago entered on: 08/04/20 Sex
--- OUTSIDE RECORDS SUMMARY | 2022-04-01 00:32 | XMS_ITS | Continuity of Care Document ---
:1990 Author Organization [facility] [employer] [facility] Address [address] [place] [address]- Care Team Providers Name Role Phone Jarrod Sherman MD Primary Care Physician [place] [facility] [place](s): 12/09/20 - 12/16/20 [facility] [employer] [address] [address] Attending Physician: Pedro GAMBOA [OB], Anastasia Haynes [...] 10/23/19 8:29:00 EDT, Route to Pharmacy Electronically, [facility]/pharmacy #[id number], 154.94, cm, 10/23/19 5:18:00 EDT, Height, 97.27, kg, 10/21/19 8:42:00 EDT, Dry Weight Start Date: 10/23/19 Status: Orderedbisacodyl 5 mg oral delayed release tablet 1 tablet = 5 mg, By Mouth, Daily, PRN as needed for constipation, # 20 tablet, 0 Refills, Acute 06/16/21 0:00:00 EST, 11/16/20 9:05:00 EDT, CR Tablet, [facility]/pharmacy #[id number], Partial fill upon [...] 2 Refills, Maintenance, 09/22/20 11:24:00 EDT, CRTablet, [facility]/pharmacy #[id number], Partial fill upon [...] 06/16/21 0:00:00 EST, 11/16/20 9:03:00 EDT, Cream, [facility]/pharmacy #[id number], Partial fill upon [...] Sertraline now, helping and has therapist and [id number] in the morning for nausea and anxiety Social History Social History Type Response Smoking Status Former smoker, quit more radha n 30 days ago entered on: 08/04/20 Sex
--- OUTSIDE RECORDS SUMMARY | 2022-04-01 00:32 | XMS_ITS | Continuity of Care Document ---
:1990 Author Organization [facility] Address [address] [place] [address], [address] [place] [address]- Care Team Providers Name Role Phone Jarrod Sherman MD Primary Care Physician [place] [facility] [place](s): 05/15/21 - 06/14/21 [facility] [address] [place] [address], [address] [place] [id number] Allergies, Adverse Reactions, Alerts Substance Reaction Severity [...] 06/19/21 13:56:00 EST, 06/12/21 13:56:00 EST, Capsule, [facility]/pharmacy #[id number], Partial fill upon patient [...] 03/06/21 15:09:00 EDT, Route to Pharmacy Electronically, [facility]/pharmacy #[id number], Partial fill upon patient request if the prescription is for a schedule II op... Start Date: 03/06/21 Status: Orderedlabetalol 200 mg oral tablet 1 tablet, By Mouth, 2 times a day, # 60 tablet, 0 Refills, [id number], 154.9, cm, 12/18/20 12:26:00 EDT, Height, 106.7, [...] Sertraline now, helping and has therapist and [id number] in the morning for nausea and anxiety Social History Social History Type Response Smoking Status Former smoker, quit more radha n 30 days ago entered on: 08/04/20 Sex
[2022-04-01] MEDS: Butalb/Acetamin/Caff 50/325/40 TABLET 1 TAB PO (00:33)
[2022-04-01] MEDS: LORazepam 1 MG TABLET PO (00:34)
--- NOTE | 2022-04-01 01:25 | PC.NURSE ---
pt medicated for headache 10/10 and chest wall pain mild. pt is alert and oriented, skin pink warm and dry, no s/s of distress, steady gait. and feels ready for discharge.
== END 2022-04-01 01:27 | disposition home or self-care (01) ==
PROVIDERS: Emergency Provider Emergency Medicine; PCP Internal Medicine
DX: R07.89 Other chest pain (principal); M94.0 Chondrocostal junction syndrome [Tietze]; R51.9 Headache, unspecified; Z87.891 Personal history of nicotine dependence; Z79.899 Other long term (current) drug therapy
CPT/HCPCS: 36415; 71045; 80053; 81003; 81025; 82248; 83690; 84484; 85025; 93005; 99284

== ENCOUNTER 2022-05-04 10:17 | Emergency (ER) | payer OTHER, SELFPAY ==
--- NOTE | ~2022-05-04 | US_ITS ---
EXAMINATION: US PELVIS CLINICAL INFORMATION: Left lower quadrant pain COMPARISON: History 12/04/2017 TECHNIQUE: Ultrasound of the pelvis is performed using both transabdominal and transvaginal transducers along with Doppler. Transvaginal imaging is performed due to inadequate visualization transabdominally. FINDINGS: Uterus: The uterus is anteverted and measures 8.2 x 4.4 x 6.0 cm. The double wall endometrial thickness is 8 mm. The uterus is smooth in contour and has normal myometrial echogenicity. No visible fibroid. Small nabothian cyst present within the cervix. Adnexa: Both ovaries are visualized. There is normal color flow to the adnexa. There is no ovarian torsion. There is no pelvic ascites or fluid collection. Right ovary measures 3.0 x 1.9 x 2.3 cm. Physiologic follicles present. Normal arterial and venous waveforms present. Left ovary measures 3.1 x 2.1 x 2.4 cm. Physiologic follicles present. Normal arterial and venous waveforms present. US/US pelvic ovarian doppler IMPRESSION: No etiology for the patient's left lower quadrant pain. No abnormal adnexal cyst or mass.
--- NOTE | ~2022-05-04 | US_ITS ---
EXAMINATION: US PELVIS CLINICAL INFORMATION: Left lower quadrant pain COMPARISON: History 12/04/2017 TECHNIQUE: Ultrasound of the pelvis is performed using both transabdominal and transvaginal transducers along with Doppler. Transvaginal imaging is performed due to inadequate visualization transabdominally. FINDINGS: Uterus: The uterus is anteverted and measures 8.2 x 4.4 x 6.0 cm. The double wall endometrial thickness is 8 mm. The uterus is smooth in contour and has normal myometrial echogenicity. No visible fibroid. Small nabothian cyst present within the cervix. Adnexa: Both ovaries are visualized. There is normal color flow to the adnexa. There is no ovarian torsion. There is no pelvic ascites or fluid collection. Right ovary measures 3.0 x 1.9 x 2.3 cm. Physiologic follicles present. Normal arterial and venous waveforms present. Left ovary measures 3.1 x 2.1 x 2.4 cm. Physiologic follicles present. Normal arterial and venous waveforms present. US/US pelvic and transvaginal IMPRESSION: No etiology for the patient's left lower quadrant pain. No abnormal adnexal cyst or mass.
[2022-05-04 10:39] VITALS: BP 148/84; PULSE 59; RESP 16; TEMP 36.4; O2SAT 100; BMI 41.9
--- NOTE | 2022-05-04 11:01 | ED_ITS ---
HPI - Abdominal Pain General Chief Complaint: Abdominal Pain Stated Complaint: Vomiting Chest Pain X 1 Day Time Seen by Provider: 05/04/22 11:00 Source: patient Mode of arrival: ambulatory Limitations: no limitations History of Present Illness HPI narrative: 31-year-old female with a history of bipolar 2 disorder, fibromyalgia, depression, anxiety, obesity, ADHD, constipation, GERD, gastritis, PCOS, HTN, HLD, chronic lower back pain, history of atypical chest pain who presents to the ER for evaluation of left lower quadrant and left upper quadrant abdominal pain associated with nausea and vomiting that started yesterday. She reports the pain radiates from under her left breast and left upper quadrant of her abdomen into her chest, shoulder and left arm. She reports it is sharp and comes in waves. It is worse with palpation which worsens the nausea. She denies any fever or chills. No constipation or diarrhea. She reports she was seen at [facility] for a fall down stairs on April 20. Imaging at that time that showed a large left ovarian cyst. She was scheduled for an outpatient ultrasound on the of this month. MD elicited complaint: abdominal pain and other (Left-sided chest pain) Pertinent past history: constipation and gastritis Onset (ago): day(s) (1) Pain Consistency: constant Location: chest, LUQ and LLQ Severity: severe Quality: sharp Radiation: chest Exacerbating factors: movement and other (Palpation) Relieving factors: eating, vomiting and other (Palpation) Associated symptoms: nausea and vomiting Related Data Home Medications Medication Instructions Recorded Confirmed sertraline 100 mg tablet 100 mg PO DAILY 08/22/20 04/04/22 bupropion HCl 150 mg 24 hr tablet, 150 mg PO QAM 05/03/21 04/04/22 extended release ibuprofen 600 mg tablet 600 mg PO Q6H PRN pain 01/05/22 04/04/22 Previous Rx's Medication Instructions Recorded lancets 28 gauge (FreeStyle #100 ea 06/27/20 Lancets) FreeStyle Lite Strips (blood sugar 4 strip miscellaneous QID 30 days 07/20/20 diagnostic) #100 strips miscellaneous medical supply 1 ea miscellaneous DAILY 99 days 01/03/21 #2 ea gabapentin 400 mg capsule 400 mg PO TID 30 days #90 caps 02/01/21 dexlansoprazole 60 mg 60 mg PO DAILY #30 caps 05/19/21 capsule,biphase delayed release (Dexilant) linaclotide 145 mcg capsule 145 mcg PO QAM #30 caps 08/17/21 (Linzess) metoclopramide HCl 5 mg tablet 5 mg PO QIDACHS #120 tabs 08/17/21 (Reglan) ibuprofen 800 mg tablet (IBU) 800 mg PO Q8H PRN pain/headaches 08/24/21 30 days #90 tabs lidocaine 5 % topical patch 1 patch topical DAILY #30 ea 11/24/21 spironolactone 50 mg tablet 50 mg PO BID #60 tabs 01/05/22 ferrous sulfate 325 mg (65 mg 325 mg PO DAILY 30 days #30 tabs 04/04/22 iron) tablet (Feosol) hydroxyzine HCl 25 mg tablet See Rx Instructions .Route 04/04/22 .COMPLEX anxiety 30 days #180 tabs labetalol 100 mg tablet 100 mg PO BID #180 tabs 04/12/22 cyclobenzaprine 10 mg tablet 10 mg PO TID PRN muscle spasm #14 05/04/22 tabs lidocaine 5 % topical patch 1 patch topical DAILY #15 ea 05/04/22 naproxen 500 mg tablet 500 mg PO BID PRN pain #20 tabs 05/04/22 ondansetron 4 mg disintegrating 4 mg PO Q8H PRN nausea and 05/04/22 tablet vomiting #10 tabs Allergies Allergy/AdvReac Type Severity Reaction Status Date / Time amoxicillin [AMOXICILLIN] Allergy Intermediate NAUSEA & Verified 04/04/22 11:17 VOMITING, stomach pain, vomiting, stomach upset topiramate [From TOPAMAX] Allergy Intermediate TREMORS, Verified 04/04/22 11:17 nausea and vomiting latex [LATEX] Allergy Mild RASH Verified 04/04/22 11:17 medroxyprogesterone Allergy Mild RASH Verified 04/04/22 11:17 [From PROVERA] lactose Allergy bloating , Verified 04/04/22 11:17 diarrhea Review of Systems Review of Systems Constitutional: No Fever, No Chills ENT/Mouth: No sore throat, No Rhinorrhea, No Swallowing Difficulty Eyes: No Eye Pain, No Swelling, No Redness Cardiovascular: + Chest Pain, + SOB, No Orthopnea, No Edema Respiratory: No Cough, No Sputum, No Wheezing, No dyspnea Gastrointestinal: + Nausea, + Vomiting, No Diarrhea, +abdominal Pain, No Hematochezia, No Melena Genitourinary: No Dysuria, No Urinary Frequency, No Hematuria Musculoskeletal: No joint pain, No Myalgias Skin: No Skin Lesions, No rash Neuro: No Weakness, No Numbness, No Dizziness, No Headache Psych: + Anxiety/Panic, + Depression Heme/Lymph: No Bruising, No Lymphadenopathy Endocrine: No Polyuria, No Polydipsia [facility] Past Medical History Medical History (Updated 05/04/22 @ 14:56 by DUSTY Zapata) Anxiety Arthritis Carpal tunnel syndrome, bilateral Depression Depression Fibromyalgia Hyperlipemia Hypertension Insomnia Lower back pain Migraine Migraines Morbid obesity Morbid obesity with BMI of 40.0-44.9, adult Obesity Obesity (BMI 30-39.9) PCOS (polycystic ovarian syndrome) Polyuria Rheumatoid arthritis Second trimester Smoker Vulvar cyst Surgical History History of esophagogastroduodenoscopy (EGD) History of removal of cyst History of tonsillectomy and adenoidectomy Family History Family History Father Medical history unknown Mother Diabetes Hypertension Maternal Aunt Breast cancer Ovarian cancer Mental health disorder Maternal Grandmother Diabetes Hypertension Social History Social History Household Members: Spouse and Children Housing: Condominium Alcohol intake: never Patient Tobacco Use Status: Former Tobacco user Tobacco use type: Cigarette Cigarettes Per Day: 3 Smoked in Last 30 Days: Yes e-Cigarette/Vaping Use: Never Used Second Hand Smoke Exposure: No Use of substances other than those prescribed or required for medical reasons: No Substance Use Type: Marijuana Advance Directives: No Advance Directives Information Provided: Yes Patient : Yes service: No Current occupational status: disabled Sexual orientation: Straight/Heterosexual Gender identity: Female Cognitive needs: No Hearing needs: No Vision needs: Yes Physical Exam ED Vital Signs: Vital Signs - 24 hr 05/04/22 10:39 05/04/22 15:03 Temperature 97.6 F 98.5 F Pulse Rate 59 52 Respiratory Rate 16 12 Blood Pressure 148/84 H 152/83 H Pulse Oximetry 100 100 Oxygen Delivery Method Room Air Room Air BMI result Body Mass Index 41.9 Appearance: Alert. Oriented X3. No acute distress. Eyes: Pupils equal, round and reactive to light. ENT: Pharynx normal. Neck: Normal inspection. Neck supple. CVS: Normal heart rate and rhythm. Pulses normal. Respiratory: No respiratory distress. Breath sounds normal. Abdomen: Obese, Soft with LLQ tenderness and guarding. normal +BS x4. Pelvic deferred Skin: Skin warm and dry. Normal skin color. Normal skin turgor. No rashes. Extremities: No lower extremity edema. Neuro: Oriented X 3. No motor deficit. No sensory deficit. Course Course Course Narrative: 31-year-old female with a history of bipolar, fibromyalgia, hip osteoarthritis, headaches, depression, anxiety, PCOS, HTN, HLD, insomnia, obesity, GERD, gastritis, migraines, among other comorbidities who presents to the ER for evaluation of multiple complaints. She reports a few days of left-sided chest pain that radiating into the shoulder and left arm along with left upper quadrant and left lower quadrant abdominal pain. This is associated with nausea and vomiting. She states the pain in her chest is burning and worse with palpation. Will get pelvic ultrasound as she reports having a left ovarian cyst. She has some left lower quadrant tenderness on examination. Her chest wall is tender, most likely musculoskeletal. Will get EKG and troponin. Will get other lab workup. Will medicate and reassess. Reevaluation(s) Reevaluation #1: Lab workup was unremarkable. Ultrasound is unremarkable. Patient feeling bett er and playing on her phone. She continues to have left anterior chest wall tenderness on exam. Abdominal tenderness is improved. No further vomiting. Will treat for chest wall muscle pain and nausea. Will have her follow-up with her PCP. Stable discharge home. Patient agrees with plan. Return precautions were discussed. Medications Administered Discontinued Medications Generic Name Dose Route Start Last Admin Trade Name Freq PRN Reason Stop Dose Admin Lactated Ringer's 1,000 mls @ 999 mls/hr 05/04/22 11:15 05/04/22 14:30 Lr IV 05/04/22 12:15 Infused .Q1H1M MARY Infusion Morphine Sulfate 4 mg 05/04/22 11:15 05/04/22 12:20 Morphine Sulfate 4 Mg/Ml Cartridge IVPUSH 05/04/22 11:16 4 mg ONCE ONE Administration Protocol Ondansetron HCl 4 mg 05/04/22 11:15 05/04/22 12:20 Ondansetron Hcl 4 Mg/2 Ml Vial IVPUSH 05/04/22 11:16 4 mg ONCE ONE Administration MDM - Abdominal Pain Medical Records Attestation: I reviewed the patient's medical records. Lab Data Attestation: I reviewed the patient's lab results. Result diagrams: 05/04/22 12:35 05/04/22 12:35 Labs: Lab Results 05/04/22 05/04/22 05/04/22 Range/Units 12:35 12:35 12:35 WBC 9.6 (4.8-10.8) X10*3/uL RBC 4.47 (4.20-5.50) X10*6/uL Hgb 11.5 L (12.0-16.0) g/dl Hct 36.8 L (37.0-47.0) % MCV 82.3 (80.0-98.0) fL MCH 25.7 L (27.0-33.0) pg MCHC 31.3 (31.0-35.0) g/dl RDW 14.5 (11.0-16.0) % Plt Count 360 D (160-400) X10*3/uL MPV 10.4 (9.4-12.3) fL Immature Gran % (Auto) 0.2 (0.0-0.4) % Neut % (Auto) 63.5 (45-73) % Lymph % (Auto) 27.0 (20-40) % [place] % (Auto) 7.9 (2-11) % Eos % (Auto) 0.8 (0-4) % Baso % (Auto) 0.6 (0-2) % Lymph # (Auto) 2.6 (1.2-4.9) X10*3/uL [place] # (Auto) 0.8 (0.1-1.2) X10*3/uL Eos # (Auto) 0.1 (0.0-0.4) X10*3/uL Baso # (Auto) 0.1 (0.0-0.2) X10*3/uL Abs Immat Gran (auto) 0.02 (0.00-0.03) X10*3/uL Absolute Neuts (auto) 6.1 (2.0-8.3) x10*3/uL Absolute Nucleated RBC 0.000 (0.0-0.012) X10*3/uL Nucleated RBC % (auto) 0.0 (0.0-0.2) /100WBC Sodium 144 (135-145) mmol/L Potassium 4.1 (3.3-5.1) mmol/L Chloride 106 (96-108) mmol/L Carbon Dioxide 27 (22-29) mmol/L Anion Gap 15 (12-20) BUN 10 (9-16) mg/dL Creatinine 0.69 (0.5-1.4) mg/dL Estim Creat Clear Calc 127.4 Estimated GFR > 60 Random Glucose 89 (60-115) mg/dL Calcium 9.5 (8.4-10.2) mg/dL Magnesium 2.3 (1.6-2.6) mg/dL Total Bilirubin 0.3 (0.0-1.0) mg/dL Direct Bilirubin 0.2 (0.0-0.5) mg/dL AST 17 D (5-31) U/L ALT 18 (0-31) U/L Alkaline Phosphatase 101 D (39-117) U/L Troponin I High Sens (<3.5-17.0) ng/L Total Protein 8.0 (6.5-8.0) g/dL Albumin 4.4 (3.5-5.0) g/dL Lipase 50 (8-78) U/L Urine Color Urine Appearance Urine pH (5.0-9.0) Ur Specific [place] (1.005-1.025) Urine Protein (Neg-Trace) mg/dL Urine Glucose (UA) (Negative) mg/dL Urine Ketones (Negative) mg/dL Urine Blood (Negative) Urine Nitrite (Negative) Ur Leukocyte Esterase (Negative) Urine RBC (0-2) /HPF Urine WBC (0-5) /HPF Ur Squamous Epith Cells (0-2) /HPF Urine Bacteria (None Seen) Hyaline Casts (0-2) /LPF Urine Test (NEGATIVE) Urine Opiates Screen (Not Detect) Urine Fentanyl Screen (Not Detect) Ur Barbiturates Screen (Not Detect) Ur Phencyclidine Scrn (Not Detect) Ur Amphetamines Screen (Not Detect) U Benzodiazepines Scrn (Not Detect) Urine Cocaine Screen (Not Detect) U Marijuana (THC) Screen (Not Detect) COVID-19 (HARPAL) Negative (Negative) COVID-19 Clin Com See Note Influenza Type A (RAJESH) (Negative) Influenza Type B (RAJESH) (Negative) Influenza A & B Note 05/04/22 05/04/22 05/04/22 Range/Units 12:35 12:35 12:47 WBC (4.8-10.8) X10*3/uL RBC (4.20-5.50) X10*6/uL Hgb (12.0-16.0) g/dl Hct (37.0-47.0) % MCV (80.0-98.0) fL MCH (27.0-33.0) pg MCHC (31.0-35.0) g/dl RDW (11.0-16.0) % Plt Count (160-400) X10*3/uL MPV (9.4-12.3) fL Immature Gran % (Auto) (0.0-0.4) % Neut % (Auto) (45-73) % Lymph % (Auto) (20-40) % [place] % (Auto) (2-11) % Eos % (Auto) (0-4) % Baso % (Auto) (0-2) % Lymph # (Auto) (1.2-4.9) X10*3/uL [place] # (Auto) (0.1-1.2) X10*3/uL Eos # (Auto) (0.0-0.4) X10*3/uL Baso # (Auto) (0.0-0.2) X10*3/uL Abs Immat Gran (auto) (0.00-0.03) X10*3/uL Absolute Neuts (auto) (2.0-8.3) x10*3/uL Absolute Nucleated RBC (0.0-0.012) X10*3/uL Nucleated RBC % (auto) (0.0-0.2) /100WBC Sodium (135-145) mmol/L Potassium (3.3-5.1) mmol/L Chloride (96-108) mmol/L Carbon Dioxide (22-29) mmol/L Anion Gap (12-20) BUN (9-16) mg/dL Creatinine (0.5-1.4) mg/dL Estim Creat Clear Calc Estimated GFR Random Glucose (60-115) mg/dL Calcium (8.4-10.2) mg/dL Magnesium (1.6-2.6) mg/dL Total Bilirubin (0.0-1.0) mg/dL Direct Bilirubin (0.0-0.5) mg/dL AST (5-31) U/L ALT (0-31) U/L Alkaline Phosphatase (39-117) U/L Troponin I High Sens < 3.5 (<3.5-17.0) ng/L Total Protein (6.5-8.0) g/dL Albumin (3.5-5.0) g/dL Lipase (8-78) U/L Urine Color Yellow Urine Appearance Clear Urine pH >= 9.0 (5.0-9.0) Ur Specific [place] 1.010 (1.005-1.025) Urine Protein Negative (Neg-Trace) mg/dL Urine Glucose (UA) Negative (Negative) mg/dL Urine Ketones Negative (Negative) mg/dL Urine Blood Negative (Negative) Urine Nitrite Negative (Negative) Ur Leukocyte Esterase Trace H (Negative) Urine RBC 0-2 (0-2) /HPF Urine WBC 0-5 (0-5) /HPF Ur Squamous Epith Cells 3-5 (0-2) /HPF Urine Bacteria None Seen (None Seen) Hyaline Casts 0-2 (0-2) /LPF Urine Test (NEGATIVE) Urine Opiates Screen (Not Detect) Urine Fentanyl Screen (Not Detect) Ur Barbiturates Screen (Not Detect) Ur Phencyclidine Scrn (Not Detect) Ur Amphetamines Screen (Not Detect) U Benzodiazepines Scrn (Not Detect) Urine Cocaine Screen (Not Detect) U Marijuana (THC) Screen (Not Detect) COVID-19 (HARPAL) (Negative) COVID-19 Clin Com Influenza Type A (RAJESH) Negative (Negative) Influenza Type B (RAJESH) Negative (Negative) Influenza A & B Note See Note 05/04/22 05/04/22 Range/Units 12:47 12:47 WBC (4.8-10.8) X10*3/uL RBC (4.20-5.50) X10*6/uL Hgb (12.0-16.0) g/dl Hct (37.0-47.0) % MCV (80.0-98.0) fL MCH (27.0-33.0) pg MCHC (31.0-35.0) g/dl RDW (11.0-16.0) % Plt Count (160-400) X10*3/uL MPV (9.4-12.3) fL Immature Gran % (Auto) (0.0-0.4) % Neut % (Auto) (45-73) % Lymph % (Auto) (20-40) % [place] % (Auto) (2-11) % Eos % (Auto) (0-4) % Baso % (Auto) (0-2) % Lymph # (Auto) (1.2-4.9) X10*3/uL [place] # (Auto) (0.1-1.2) X10*3/uL Eos # (Auto) (0.0-0.4) X10*3/uL Baso # (Auto) (0.0-0.2) X10*3/uL Abs Immat Gran (auto) (0.00-0.03) X10*3/uL Absolute Neuts (auto) (2.0-8.3) x10*3/uL Absolute Nucleated RBC (0.0-0.012) X10*3/uL Nucleated RBC % (auto) (0.0-0.2) /100WBC Sodium (135-145) mmol/L Potassium (3.3-5.1) mmol/L Chloride (96-108) mmol/L Carbon Dioxide (22-29) mmol/L Anion Gap (12-20) BUN (9-16) mg/dL Creatinine (0.5-1.4) mg/dL Estim Creat Clear Calc Estimated GFR Random Glucose (60-115) mg/dL Calcium (8.4-10.2) mg/dL Magnesium (1.6-2.6) mg/dL Total Bilirubin (0.0-1.0) mg/dL Direct Bilirubin (0.0-0.5) mg/dL AST (5-31) U/L ALT (0-31) U/L Alkaline Phosphatase (39-117) U/L Troponin I High Sens (<3.5-17.0) ng/L Total Protein (6.5-8.0) g/dL Albumin (3.5-5.0) g/dL Lipase (8-78) U/L Urine Color Urine Appearance Urine pH (5.0-9.0) Ur Specific [place] (1.005-1.025) Urine Protein (Neg-Trace) mg/dL Urine Glucose (UA) (Negative) mg/dL Urine Ketones (Negative) mg/dL Urine Blood (Negative) Urine Nitrite (Negative) Ur Leukocyte Esterase (Negative) Urine RBC (0-2) /HPF Urine WBC (0-5) /HPF Ur Squamous Epith Cells (0-2) /HPF Urine Bacteria (None Seen) Hyaline Casts (0-2) /LPF Urine Test NEGATIVE (NEGATIVE) Urine Opiates Screen Not Detected (Not Detect) Urine Fentanyl Screen Not Detected (Not Detect) Ur Barbiturates Screen Not Detected (Not Detect) Ur Phencyclidine Scrn Not Detected (Not Detect) Ur Amphetamines Screen Not Detected (Not Detect) U Benzodiazepines Scrn Not Detected (Not Detect) Urine Cocaine Screen Not Detected (Not Detect) U Marijuana (THC) Screen POSITIVE H (Not Detect) COVID-19 (HARPAL) (Negative) COVID-19 Clin Com Influenza Type A (RAJESH) (Negative) Influenza Type B (RAJESH) (Negative) Influenza A & B Note ECG Data Attestation: I personally reviewed and interpreted this ECG as follows: ECG interpretation date: 05/04/22 ECG interpretation time: 15:44 Prior ECG tracings: available for review Interpretation: Sinus bradycardia, ventricular rate 59 beats per minute, normal NH interval, normal QTC, no change from prior. Critical Care Time Critical Care Time Critical Care Time: No Discharge Plan Discharge Clinical Impression: Acute chest wall pain, Nausea & vomiting Patient Disposition: Home, Self-Care Additional Instructions: Your lab workup today was unremarkable. Your EKG was normal. Your ultrasound was normal. Take the prescribed medications for muscle pain of your chest. Take the prescribed nausea medication as needed. Recommend following up with her primary care doctor soon as possible. If you develop new or worsening symptoms call 911 or come back to the ER for further evaluation. Prescriptions: New cyclobenzaprine 10 mg tablet 10 mg PO TID PRN (Reason: muscle spasm) Qty: 14 0RF lidocaine 5 % adhesive patch,medicated 1 patch topical DAILY Qty: 15 0RF Rx Instructions: leave on most painful area for up to 12 hrs naproxen 500 mg tablet 500 mg PO BID PRN (Reason: pain) Qty: 20 0RF ondansetron 4 mg tablet,disintegrating 4 mg PO Q8H PRN (Reason: nausea and vomiting) Qty: 10 0RF No Action FreeStyle Lite Strips Strip 4 strip miscellaneous QID 30 Days Qty: 100 1RF ibuprofen [IBU] 800 mg tablet 800 mg PO Q8H PRN (Reason: pain/headaches) 30 Days Qty: 90 0RF Rx Instructions: Take with food lidocaine 5 % adhesive patch,medicated 1 patch topical DAILY Qty: 30 0RF Rx Instructions: leave on most painful area for up to 12 hrs labetalol 100 mg tablet 100 mg PO BID Qty: 180 1RF gabapentin 400 mg capsule 400 mg PO TID 30 Days Qty: 90 3RF Rx Instructions: 1 capsule Orally Three times a day miscellaneous medical supply Misc 1 ea miscellaneous DAILY 99 Days Qty: 2 0RF sertraline 100 mg tablet 100 mg PO DAILY ferrous sulfate [Feosol] 325 mg (65 mg iron) tablet 325 mg PO DAILY 30 Days Qty: 30 5RF hydroxyzine HCl 25 mg tablet See Rx Instructions .ROUTE .COMPLEX 30 Days Qty: 180 3RF Rx Instructions: 1 to 2 tablets 3 times a day as needed for anxiety; (DME) lancets [FreeStyle Lancets] 28 gauge misc See Rx Instructions .ROUTE .MEDSUPPLY Qty: 100 1RF Rx Instructions: 4 times/day bupropion HCl 150 mg tablet extended release 24 hr 150 mg PO QAM Dexilant 60 mg capsule,biphase delayed releas 60 mg PO DAILY Qty: 30 6RF ibuprofen 600 mg tablet 600 mg PO Q6H PRN (Reason: pain) spironolactone 50 mg tablet 50 mg PO BID Qty: 60 5RF metoclopramide HCl [Reglan] 5 mg tablet 5 mg PO QIDACHS Qty: 120 6RF Linzess 145 mcg capsule 145 mcg PO QAM Qty: 30 6RF Interventions: ED Discharge Assessment Last Done: 05/04/22 15:12 Discharge Date/Time: 05/04/22 15:12
--- NOTE | 2022-05-04 11:15 | ECG_ITS ---
Test Reason : CHEST PAIN Blood Pressure : / mmHG Vent. Rate : 059 BPM Atrial Rate : 059 BPM P-R Int : 146 ms QRS Dur : 084 ms QT Int : 412 ms P-R-T Axes : 044 046 014 degrees QTc Int : 407 ms Sinus bradycardia Otherwise normal ECG When compared with ECG of 31-MAR-2022 20:34, No significant change was found Referred By: Caprice Guajardo Electronically Signed By:JADYN RICH MD
--- NOTE | 2022-05-04 12:11 | PC.NURSE ---
pt is a/o x 4 no sob/latricia noted speaks in full sentences. lungs - cta. heart sounds regular. c/o chest pain radiaiting to l arm. abd soft and tender at llq.bx + x 4 quads. c/o abd pain/disc. pt states n/v since last night. no edema noted. md aware.
[2022-05-04] MEDS: Morphine Sulfate 4 MG/ML CARTRIDGE IVPUSH (12:20)
[2022-05-04] MEDS: ondansetron HCL 4 MG/2 ML VIAL IVPUSH (12:20)
[2022-05-04] MEDS: Lactated Ringers 1,000 ML 999 ML IV (12:20)
[2022-05-04 12:39] LABS: MANUAL DIFF FLAG NO
[2022-05-04 12:42] LABS: Basophils Absolute Auto 0.1 X10*3/uL (0.0-0.2); Basophils Percent Auto 0.6 % (0-2); Eosinophils Absolute Auto 0.1 X10*3/uL (0.0-0.4); Eosinophils Percent Auto 0.8 % (0-4); Hematocrit 36.8 % (37.0-47.0); Hemoglobin 11.5 g/dl (12.0-16.0); Imm Gran Abs Auto 0.02 X10*3/uL (0.00-0.03); Imm Gran Pct Auto 0.2 % (0.0-0.4); Lymphocytes Absolute Auto 2.6 X10*3/uL (1.2-4.9); Mean Corpuscular HGB Conc 31.3 g/dl (31.0-35.0); Mean Corpuscular Hemoglobin 25.7 pg (27.0-33.0); Mean Corpuscular Volume 82.3 fL (80.0-98.0); Mean Platelet Volume 10.4 fL (9.4-12.3); Monocytes Absolute Auto 0.8 X10*3/uL (0.1-1.2); Monocytes Percent Auto 7.9 % (2-11); Neutrophils Absolute Auto 6.1 x10*3/uL (2.0-8.3); Neutrophils Percent Auto 63.5 % (45-73); Platelet Count 360 X10*3/uL (160-400); Red Blood Count 4.47 X10*6/uL (4.20-5.50); Red Cell Distribution Width 14.5 % (11.0-16.0); White Blood Count 9.6 X10*3/uL (4.8-10.8)
[2022-05-04 12:57] LABS: UPreg QC Valid YES; Urine Pregnancy NEGATIVE (NEGATIVE)
[2022-05-04 13:02] LABS: Appearance Urine Clear; Color Urine Yellow; Glucose Urine UA Negative (Negative); Leukocyte Esterase Urine Trace (Negative); Nitrite Urine Negative (Negative); PH >= 9.0 (5.0-9.0); UMIC TRIGGER UACC YES; Urine Blood Negative (Negative); Urine Ketones Negative (Negative); Urine Protein Negative (Neg-Trace)
[2022-05-04 13:03] LABS: Alanine Aminotransferase 18 U/L (0-31); Alkaline Phosphatase 101 U/L (39-117); Anion Gap 15 (12-20); Aspartate Amino Transferase 17 U/L (5-31); Bilirubin Direct 0.2 mg/dL (0.0-0.5); Bilirubin Total 0.3 mg/dL (0.0-1.0); Blood Urea Nitrogen 10 mg/dL (9-16); Calcium 9.5 mg/dL (8.4-10.2); Carbon Dioxide 27 mmol/L (22-29); Chloride 106 mmol/L (96-108); Creatinine Clr Calc Pharmacy 127.4; Estimated Glomerular Filt Rate > 60; Glucose Random 89 mg/dL (60-115); Lipase 50 U/L (8-78); Magnesium 2.3 mg/dL (1.6-2.6); Potassium 4.1 mmol/L (3.3-5.1); Sodium 144 mmol/L (135-145)
[2022-05-04 13:04] LABS: Amphetamine Screen Urine Not Detected (Not Detect); Barbiturates, Urine Not Detected (Not Detect); Benzodiazepines Screen Urine Not Detected (Not Detect); Cannabinoid Screen Urine POSITIVE (Not Detect); Cocaine Screen Urine Not Detected (Not Detect); Fentanyl, urine Not Detected (Not Detect); Opiate Screen Urine Not Detected (Not Detect); Phencyclidine Screen Urine Not Detected (Not Detect)
[2022-05-04 13:05] LABS: Bacteria Urine None Seen (None Seen); Hyaline Casts Urine 0-2 /LPF (0-2); RBC Urine 0-2 /HPF (0-2); WBC Urine 0-5 /HPF (0-5)
[2022-05-04 13:06] LABS: IDNOW Serial# 9DB6401D; Influenza A Negative (Negative); Influenza B2 Negative (Negative)
[2022-05-04 13:07] LABS: COVID-19 Test Negative (Negative); IDNOW Serial# 55D5AD1C; Troponin-I High Sensitivity < 3.5 ng/L (<3.5-17.0)
[2022-05-04 13:59] LABS: Albumin Level 4.4 g/dL (3.5-5.0)
[2022-05-04 15:03] VITALS: BP 152/83; PULSE 52; RESP 12; TEMP 36.9; O2SAT 100
== END 2022-05-04 15:12 | disposition home or self-care (01) ==
PROVIDERS: Physician Assistant; Emergency Provider Emergency Medicine Emergency Medical Services; PCP Internal Medicine
DX: R10.32 Left lower quadrant pain (principal); R07.89 Other chest pain; Z20.822 Contact with and (suspected) exposure to COVID-19; Z87.891 Personal history of nicotine dependence; Z79.899 Other long term (current) drug therapy
CPT/HCPCS: 36415; 76830; 76856; 80048; 80076; 80307; 81001; 81003; 81025; 83690; 83735; 84484; 85025; 87502; 87635; 93005; 93975; 96361; 96374; 96375; 99284; 99285; J2270; J2405

== ENCOUNTER 2022-05-13 10:43 | Emergency (ER) | payer OTHER, SELFPAY ==
--- NOTE | ~2022-05-13 | XR_ITS ---
EXAMINATION: XR CHEST CLINICAL INFORMATION: Chest pain COMPARISON: Chest x-ray March 31, 2022 TECHNIQUE: 2 views of the chest were obtained. FINDINGS: Stable cardiac silhouette. The lungs are well aerated. There is no lobar consolidation. No pleural effusion or pneumothorax. Mild degenerative changes of the spine. XR/XR chest 2V IMPRESSION: No acute pulmonary pathology.
--- NOTE | 2022-05-13 10:47 | ECG_ITS ---
Test Reason : CHEST PAIN Blood Pressure : / mmHG Vent. Rate : 062 BPM Atrial Rate : 062 BPM P-R Int : 146 ms QRS Dur : 088 ms QT Int : 422 ms P-R-T Axes : 034 036 013 degrees QTc Int : 428 ms Normal sinus rhythm Normal ECG When compared with ECG of 04-MAY-2022 12:11, No significant change was found Referred By: Sarah Sampson Electronically Signed By:JADYN RICH MD
[2022-05-13 10:48] VITALS: BP 196/104; PULSE 72; RESP 18; TEMP 35.6; O2SAT 99; BMI 41.5
--- NOTE | 2022-05-13 10:51 | ED.GENADULT ---
HPI - General Adult General Chief complaint: Chest Pain <DUSTY Yeung - Last Filed: 05/13/22 11:17> Stated complaint: CP <DUSTY Yeung - Last Filed: 05/13/22 11:17> Time Seen by Provider: 05/13/22 14:26 <DUSTY Yeung - Last Filed: 05/13/22 11:17> Source: patient <DUSTY Yeung - Last Filed: 05/13/22 11:17> Mode of arrival: ambulatory <DUSTY Yeung - Last Filed: 05/13/22 11:17> Limitations: no limitations <DUSTY Yeung - Last Filed: 05/13/22 11:17> History of Present Illness HPI narrative: 31-year-old female with a history of bipolar 2 disorder, fibromyalgia, depression, anxiety, obesity, ADHD, constipation, GERD, gastritis, PCOS, HTN, HLD, chronic lower back pain, history of atypical chest pain with several ER visits for same here with complaints of intermittent chest pain x 2 months. Patient reports episodes occur at rest described as tightness/pressure and are associated with rapid heart beat, palms/soles sweating sensation. Patient reports episode which occurred last evening prompting call to EMS. Patient brought to [facility] ED and reports I waited in the waiting room all night long and then walked out this morning. Patient reports came here instead. No recent travel, sick contact, OCP use, recent surgery/trauma. No associated fever, cough, SOB, leg swelling. Saw PCP last week and is waiting for referral to cards. Also reports blood pressure not controlled despite taking her labetalol 200mg BID. Of note, did not take dose this morning. <Tahmina Banuelos NP - Last Filed: 05/13/22 17:26> Related Data Home medications: Home Medications Medication Instructions Recorded Confirmed sertraline 100 mg tablet 100 mg PO DAILY 08/22/20 05/08/22 bupropion HCl 150 mg 24 hr tablet, 150 mg PO QAM 05/03/21 05/08/22 extended release ibuprofen 600 mg tablet 600 mg PO Q6H PRN pain 01/05/22 05/08/22 Previous Rx's Medication Instructions Recorded lancets 28 gauge (FreeStyle #100 ea 06/27/20 Lancets) FreeStyle Lite Strips (blood sugar 4 strip miscellaneous QID 30 days 07/20/20 diagnostic) #100 strips miscellaneous medical supply 1 ea miscellaneous DAILY 99 days 01/03/21 #2 ea gabapentin 400 mg capsule 400 mg PO TID 30 days #90 caps 02/01/21 dexlansoprazole 60 mg 60 mg PO DAILY #30 caps 05/19/21 capsule,biphase delayed release (Dexilant) linaclotide 145 mcg capsule 145 mcg PO QAM #30 caps 08/17/21 (Linzess) metoclopramide HCl 5 mg tablet 5 mg PO QIDACHS #120 tabs 08/17/21 (Reglan) ibuprofen 800 mg tablet (IBU) 800 mg PO Q8H PRN pain/headaches 08/24/21 30 days #90 tabs lidocaine 5 % topical patch 1 patch topical DAILY #30 ea 11/24/21 spironolactone 50 mg tablet 50 mg PO BID #60 tabs 01/05/22 ferrous sulfate 325 mg (65 mg 325 mg PO DAILY 30 days #30 tabs 04/04/22 iron) tablet (Feosol) hydroxyzine HCl 25 mg tablet See Rx Instructions .Route 04/04/22 .COMPLEX anxiety 30 days #180 tabs labetalol 100 mg tablet 100 mg PO BID #180 tabs 04/12/22 cyclobenzaprine 10 mg tablet 10 mg PO TID PRN muscle spasm #14 05/04/22 tabs naproxen 500 mg tablet 500 mg PO BID PRN pain #20 tabs 05/04/22 ondansetron 4 mg disintegrating 4 mg PO Q8H PRN nausea and 05/04/22 tablet vomiting #10 tabs doxycycline hyclate 100 mg tablet 100 mg PO BID 5 days #10 tabs 05/08/22 lidocaine 5 % topical patch 1 patch topical DAILY #15 ea 05/08/22 amlodipine 5 mg tablet (Norvasc) 5 mg PO DAILY #30 tabs 05/13/22 <DUSTY Yeung - Last Filed: 05/13/22 11:17> Allergies/adverse reactions: Allergies Allergy/AdvReac Type Severity Reaction Status Date / Time amoxicillin [AMOXICILLIN] Allergy Intermediate NAUSEA & Verified 05/08/22 09:08 VOMITING, stomach pain, vomiting, stomach upset topiramate [From TOPAMAX] Allergy Intermediate TREMORS, Verified 05/08/22 09:08 nausea and vomiting latex [LATEX] Allergy Mild RASH Verified 05/08/22 09:08 medroxyprogesterone Allergy Mild RASH Verified 05/08/22 09:08 [From PROVERA] lactose Allergy bloating , Verified 05/08/22 09:08 diarrhea <Sarah Sampson PA - Last Filed: 05/13/22 11:17> Review of Systems Review of Systems: Yes all other systems are reviewed and are negative <Tahmina Banuelos NP - Last Filed: 05/13/22 17:26> Constitutional: Constitutional: Reports no additional constitutional complaints, Denies body ache(s), Denies chills, Denies fever(s), Denies headache(s) and Denies weakness <Tahmina aBnuelos NP - Last Filed: 05/13/22 17:26> Eyes: Eyes: Reports no additional eye complaints and Denies change in vision <Tahmina Banuelos NP - Last Filed: 05/13/22 17:26> ENT: Reports system reviewed and no additional complaints, except as documented, Denies dizziness, Denies headache(s), Denies nasal congestion, Denies nasal discharge and Denies neck pain <Tahmina Banuelos NP - Last Filed: 05/13/22 17:26> Cardiovascular: Cardiovascular: Reports no additional cardiovascular complaints, Reports chest pain, Denies leg edema, Reports palpitations and Denies dyspnea <Tahmina Banuelos NP - Last Filed: 05/13/22 17:26> Respiratory: Respiratory: Reports no additional respiratory complaints, Denies cough and Denies dyspnea <Tahmina Banuelos NP - Last Filed: 05/13/22 17:26> Gastrointestinal: Gastrointestinal: Reports no additional gastrointestinal complaints, Denies abdominal pain, Denies diarrhea, Denies nausea and Denies vomiting <Tahmina Banuelos NP - Last Filed: 05/13/22 17:26> Genitourinary: Genitourinary: Reports no additional female genitourinary complaints and Denies urinary incontinence <Tahmina Banuelos NP - Last Filed: 05/13/22 17:26> Musculoskeletal: Musculoskeletal: Reports no additional musculoskeletal complaints, Denies back pain, Denies arthralgias, Denies joint swelling, Denies neck pain, Denies numbness and Denies tingling <Tahmina Banuelos NP - Last Filed: 05/13/22 17:26> Integumentary/Breasts: Skin/Breast: Reports system reviewed and no additional complaints, except as docu and Denies rash <Tahmina Banuelos NP - Last Filed: 05/13/22 17:26> Neurologic: Reports system reviewed and no additional complaints, except as documented, Denies dizziness, Denies headache(s), Denies numbness, Denies tingling and Denies weakness <Tahmina Banuelos NP - Last Filed: 05/13/22 17:26> Endocrine: Endocrine: Reports palpitations <Tahmina Banuelos NP - Last Filed: 05/13/22 17:26> PMFSH Past Medical History Attestation statement: The following information was validated with the patient. <Tahmina Banuelos NP - Last Filed: 05/13/22 17:26> Source: old records reviewed and nursing notes reviewed <Tahmina Banuelos NP - Last Filed: 05/13/22 17:26> Medical History: Medical History Anxiety Arthritis Carpal tunnel syndrome, bilateral Depression Depression Fibromyalgia Hyperlipemia Hypertension Insomnia Lower back pain Migraine Migraines Morbid obesity Morbid obesity with BMI of 40.0-44.9, adult Obesity Obesity (BMI 30-39.9) PCOS (polycystic ovarian syndrome) Polyuria Rheumatoid arthritis Second trimester Smoker Vulvar cyst <DUSTY Yeung - Last Filed: 05/13/22 11:17> Surgical History: Surgical History History of esophagogastroduodenoscopy (EGD) History of removal of cyst History of tonsillectomy and adenoidectomy <DUSTY Yeung - Last Filed: 05/13/22 11:17> Family History Family History: Family History Father Medical history unknown Mother Diabetes Hypertension Maternal Aunt Breast cancer Ovarian cancer Mental health disorder Maternal Grandmother Diabetes Hypertension <DUSTY Yeung - Last Filed: 05/13/22 11:17> Social History Social History: Social History Household Members: Spouse and Children Housing: Condominium Alcohol intake: never Patient Tobacco Use Status: Former Tobacco user Tobacco use type: Cigarette Cigarettes Per Day: 3 e-Cigarette/Vaping Use: Never Used Second Hand Smoke Exposure: No Substance Use Type: Marijuana Advance Directives: No Advance Directives Information Provided: No service: No Current occupational status: disabled Sexual orientation: Straight/Heterosexual Gender identity: Female Cognitive needs: No Hearing needs: No Vision needs: Yes <DUSTY Yeung - Last Filed: 05/13/22 11:17> Physical Exam ED Vital Signs: Vital Signs - 24 hr 05/13/22 10:48 05/13/22 16:06 05/13/22 17:18 Temperature 96.1 F L 97.3 F Pulse Rate 72 65 68 Respiratory Rate 18 16 18 Blood Pressure 196/104 H 198/104 H 175/92 H Pulse Oximetry 99 99 99 Oxygen Delivery Method Room Air Room Air Room Air BMI result Body Mass Index 41.5 <DUSTY Yeung - Last Filed: 05/13/22 11:17> Vital Signs - 24 hr 05/13/22 10:48 05/13/22 16:06 05/13/22 17:18 Temperature 96.1 F L 97.3 F Pulse Rate 72 65 68 Respiratory Rate 18 16 18 Blood Pressure 196/104 H 198/104 H 175/92 H Pulse Oximetry 99 99 99 Oxygen Delivery Method Room Air Room Air Room Air BMI result Body Mass Index 41.5 <Tahmina Banuelos NP - Last Filed: 05/13/22 17:26> Const General: cooperative, healthy appearing, comfortable and no acute distress <Tahmina Banuelos NP - Last Filed: 05/13/22 17:26> Orientation/consciousness: patient oriented x3 <Tahmina Banuelos NP - Last Filed: 05/13/22 17:26> Limitations: no limitations <Tahmina Banuelos NP - Last Filed: 05/13/22 17:26> HENSC Head: Yes normal to inspection <Tahmina Banuelos NP - Last Filed: 05/13/22 17:26> Ears: hearing grossly normal bilaterally <Tahmina Banuelos NP - Last Filed: 05/13/22 17:26> General nose exam: Normal external nose present <Tahmina Banuelos NP - Last Filed: 05/13/22 17:26> Face and sinus: Yes normal facial exam <Tahmina Banuelos HUMAN RELATIONS MANAGER - Last Filed: 05/13/22 17:26> Mouth: Normal oral and palatal mucosa present <Tahmina Banuelos NP - Last Filed: 05/13/22 17:26> Throat: Yes posterior oropharynx normal, Yes tonsils normal and Yes uvula midline <Tahmina Banuelos NP - Last Filed: 05/13/22 17:26> Eyes General: appearance normal, both eyes and all related structures <Tahmina Banuelos NP - Last Filed: 05/13/22 17:26> Pupils: Equal, round and reactive pupils present <Tahmina Banuelos HUMAN RELATIONS MANAGER - Last Filed: 05/13/22 17:26> Neck Neck: Yes normal visual inspection, Yes full ROM, Yes no lymphadenopathy and Yes no meningeal signs <Tahmina Banuelos NP - Last Filed: 05/13/22 17:26> Chest Chest palpation & inspection: normal inspection of the chest <Tahmina Banuelos NP - Last Filed: 05/13/22 17:26> Resp Effort & Inspection: normal respiratory effort <Tahmina Banuelos NP - Last Filed: 05/13/22 17:26> Auscultation: clear to auscultation bilaterally <Tahmina Banuelos NP - Last Filed: 05/13/22 17:26> Cardio Rate: regular rate <Tahmina Banuelos NP - Last Filed: 05/13/22 17:26> Rhythm: regular rhythm <Tahmina Banuelos NP - Last Filed: 05/13/22 17:26> Peripheral pulses: Peripheral pulses 2+ throughout <Tahmina Banuelos NP - Last Filed: 05/13/22 17:26> GI Inspection: Yes normal to inspection <Tahmina Banuelos HUMAN RELATIONS MANAGER - Last Filed: 05/13/22 17:26> Palpation (GI): Soft to palpation and nontender <Tahmina Banuelos HUMAN RELATIONS MANAGER - Last Filed: 05/13/22 17:26> General: Yes no CVA tenderness <Tahmina Banuelos HUMAN RELATIONS MANAGER - Last Filed: 05/13/22 17:26> Back/Spine/Pelvis Back: no CVA tenderness <Tahmina Banuelos HUMAN RELATIONS MANAGER - Last Filed: 05/13/22 17:26> Thoracic/Lumbar Spine: thoracic and lumbar spine normal to inspection <Tahmina Banuelos HUMAN RELATIONS MANAGER - Last Filed: 05/13/22 17:26> Skin General skin exam: no rashes or lesions noted <Tahmina Banuelos HUMAN RELATIONS MANAGER - Last Filed: 05/13/22 17:26> Neuro General: patient oriented x3, moves all extremities and no meningeal signs <Tahmina Banuelos HUMAN RELATIONS MANAGER - Last Filed: 05/13/22 17:26> Cranial nerves: Yes CN's II-XII intact bilaterally, Yes Equal, round and reactive pupils present, Yes Bilaterally intact EOM present, Yes Nystagmus not present, Yes Normal facial strength present and Yes Midline tongue present <Tahmina Banuelos HUMAN RELATIONS MANAGER - Last Filed: 05/13/22 17:26> Cognition (Neuro): normal cognition <Tahmina Banuelos HUMAN RELATIONS MANAGER - Last Filed: 05/13/22 17:26> Gait exam (Neuro): Normal gait present <Tahmina Banuelos HUMAN RELATIONS MANAGER - Last Filed: 05/13/22 17:26> Motor exam (neuro): 5/5 motor strength present throughout <Tahmina Banuelos HUMAN RELATIONS MANAGER - Last Filed: 05/13/22 17:26> Sensory Exam: Normal double simultaneous stimulation for sensation <Tahmina Banuelos HUMAN RELATIONS MANAGER - Last Filed: 05/13/22 17:26> Extrem General: Yes normal to inspection, Yes no pedal edema and Yes no calf tenderness <Tahmina Banuelos HUMAN RELATIONS MANAGER - Last Filed: 05/13/22 17:26> Course Course Course Narrative: RME performed by myself, Sarah Sampson PA-C. 31 year old female complaining of chest pain. Has been seen here twice previously for this issue and was most recently seen at [facility] Emergency Department last night where she had a negative cardiac work up. CBC, CMP, BNP, Troponin, EKG, CXR, d dimer, and COVID/Influenza/RSV swab ordered. Patient to be placed back in the waiting room pending room availability. <DUSTY Yeung - Last Filed: 05/13/22 11:17> Reevaluation(s) Reevaluation #1: 1630-labs are unremarkable. EKG shows no ischemic changes. Testing for flu, COVID RSV are negative, chest x-ray negative for infection. Less likely PE with perc 0 Less likely aortic dissection with gradual onset of symptoms Less likely ACS with nonischemic EKG and negative troponin with several days of symptoms <Tahmina Banuelos NP - Last Filed: 05/13/22 17:26> Reevaluation #2: 1700-BP 175/92, heart rate 68. Plan for discharge with recommendations for labetalol to continue and adding amlodipine. Reviewed worrisome signs and symptoms of when to return to the emergency room. Comfortable plan for discharge home. <Tahmina Banuelos NP - Last Filed: 05/13/22 17:26> Medications Administered Discontinued Medications Generic Name Dose Route Start Last Admin Trade Name Freq PRN Reason Stop Dose Admin Amlodipine Besylate 5 mg 05/13/22 14:53 05/13/22 16:00 Amlodipine Besylate 5 Mg Tablet PO 05/13/22 14:54 5 mg ONCE ONE Administration Protocol Labetalol HCl 100 mg 05/13/22 14:53 05/13/22 16:01 Labetalol Hcl 100 Mg Tablet PO 05/13/22 14:54 100 mg ONCE ONE Administration Protocol <DUSTY Yeung - Last Filed: 05/13/22 11:17> Medications Administered Discontinued Medications Generic Name Dose Route Start Last Admin Trade Name Freq PRN Reason Stop Dose Admin Amlodipine Besylate 5 mg 05/13/22 14:53 05/13/22 16:00 Amlodipine Besylate 5 Mg Tablet PO 05/13/22 14:54 5 mg ONCE ONE Administration Protocol Labetalol HCl 100 mg 05/13/22 14:53 05/13/22 16:01 Labetalol Hcl 100 Mg Tablet PO 05/13/22 14:54 100 mg ONCE ONE Administration Protocol <Tahmina Banuelos NP - Last Filed: 05/13/22 17:26> Medical Decision Making MDM Narrative Medical decision making narrative: 31 yo female with several ER visits for CP with history of poorly controlled HTN here with 2 months of intermittent CP which is not exertional and is associated at rest with palpitations and hand and feet sweating. Will need labs, EKG, chest x-ray Patient is quite hypertensive. She is on labetalol 200 mg twice daily. Will dose her here and add amlodipine <Tahmina Banuelos NP - Last Filed: 05/13/22 17:26> Differential Diagnosis Differential Diagnosis: ACS, hypertensive urgency, thyroid <Tahmina Banuelos NP - Last Filed: 05/13/22 17:26> Medical Records Medical records reviewed: Yes I reviewed the patient's medical records. <Tahmina Banuelos NP - Last Filed: 05/13/22 17:26> Lab Data Lab results reviewed: Yes I reviewed the patient's lab results. <Tahmina Banuelos NP - Last Filed: 05/13/22 17:26> Result diagrams: : 05/13/22 11:15 05/13/22 11:15 <DUSTY Yeung - Last Filed: 05/13/22 11:17> Labs: Lab Results 05/13/22 05/13/22 05/13/22 Range/Units 11:15 11:15 11:15 WBC 8.0 (4.8-10.8) X10*3/uL RBC 4.20 (4.20-5.50) X10*6/uL Hgb 10.7 L (12.0-16.0) g/dl Hct 34.3 L (37.0-47.0) % MCV 81.7 (80.0-98.0) fL MCH 25.5 L (27.0-33.0) pg MCHC 31.2 (31.0-35.0) g/dl RDW 14.6 (11.0-16.0) % Plt Count 332 (160-400) X10*3/uL MPV 10.8 (9.4-12.3) fL Immature Gran % (Auto) 0.4 (0.0-0.4) % Neut % (Auto) 62.7 (45-73) % Lymph % (Auto) 25.9 (20-40) % [place] % (Auto) 9.0 (2-11) % Eos % (Auto) 1.6 (0-4) % Baso % (Auto) 0.4 (0-2) % Lymph # (Auto) 2.1 (1.2-4.9) X10*3/uL [place] # (Auto) 0.7 (0.1-1.2) X10*3/uL Eos # (Auto) 0.1 (0.0-0.4) X10*3/uL Baso # (Auto) 0.0 (0.0-0.2) X10*3/uL Abs Immat Gran (auto) 0.03 (0.00-0.03) X10*3/uL Absolute Neuts (auto) 5.0 (2.0-8.3) x10*3/uL Absolute Nucleated RBC 0.000 (0.0-0.012) X10*3/uL Nucleated RBC % (auto) 0.0 (0.0-0.2) /100WBC D-Dimer High Sensitivty NG/ML Sodium 143 (135-145) mmol/L Potassium 4.3 (3.3-5.1) mmol/L Chloride 106 (96-108) mmol/L Carbon Dioxide 25 (22-29) mmol/L Anion Gap 16 (12-20) BUN 11 (9-16) mg/dL Creatinine 0.69 (0.5-1.4) mg/dL Estim Creat Clear Calc 126.7 Estimated GFR > 60 POC Glucose (60-115) mg/dL Random Glucose 101 (60-115) mg/dL Calcium 9.4 (8.4-10.2) mg/dL Magnesium 1.9 (1.6-2.6) mg/dL Total Bilirubin 0.3 (0.0-1.0) mg/dL AST 15 (5-31) U/L ALT 17 (0-31) U/L Alkaline Phosphatase 93 (39-117) U/L Troponin I High Sens < 3.5 (<3.5-17.0) ng/L B-Natriuretic Peptide (<100) pg/mL Total Protein 7.6 (6.5-8.0) g/dL Albumin 4.3 (3.5-5.0) g/dL TSH 2.96 (0.32-4.0) uIU/mL Influenza Type A (PCR) (Negative) Influenza Type B (PCR) (Negative) RSV RNA Qual (PCR) (Negative) SARS-CoV-2 RNA (RT-PCR) (Negative) 05/13/22 05/13/22 05/13/22 Range/Units 11:15 11:15 11:15 WBC (4.8-10.8) X10*3/uL RBC (4.20-5.50) X10*6/uL Hgb (12.0-16.0) g/dl Hct (37.0-47.0) % MCV (80.0-98.0) fL MCH (27.0-33.0) pg MCHC (31.0-35.0) g/dl RDW (11.0-16.0) % Plt Count (160-400) X10*3/uL MPV (9.4-12.3) fL Immature Gran % (Auto) (0.0-0.4) % Neut % (Auto) (45-73) % Lymph % (Auto) (20-40) % [place] % (Auto) (2-11) % Eos % (Auto) (0-4) % Baso % (Auto) (0-2) % Lymph # (Auto) (1.2-4.9) X10*3/uL [place] # (Auto) (0.1-1.2) X10*3/uL Eos # (Auto) (0.0-0.4) X10*3/uL Baso # (Auto) (0.0-0.2) X10*3/uL Abs Immat Gran (auto) (0.00-0.03) X10*3/uL Absolute Neuts (auto) (2.0-8.3) x10*3/uL Absolute Nucleated RBC (0.0-0.012) X10*3/uL Nucleated RBC % (auto) (0.0-0.2) /100WBC D-Dimer High Sensitivty 212 NG/ML Sodium (135-145) mmol/L Potassium (3.3-5.1) mmol/L Chloride (96-108) mmol/L Carbon Dioxide (22-29) mmol/L Anion Gap (12-20) BUN (9-16) mg/dL Creatinine (0.5-1.4) mg/dL Estim Creat Clear Calc Estimated GFR POC Glucose (60-115) mg/dL Random Glucose (60-115) mg/dL Calcium (8.4-10.2) mg/dL Magnesium (1.6-2.6) mg/dL Total Bilirubin (0.0-1.0) mg/dL AST (5-31) U/L ALT (0-31) U/L Alkaline Phosphatase (39-117) U/L Troponin I High Sens (<3.5-17.0) ng/L B-Natriuretic Peptide 32 (<100) pg/mL Total Protein (6.5-8.0) g/dL Albumin (3.5-5.0) g/dL TSH (0.32-4.0) uIU/mL Influenza Type A (PCR) NEGATIVE (Negative) Influenza Type B (PCR) NEGATIVE (Negative) RSV RNA Qual (PCR) NEGATIVE (Negative) SARS-CoV-2 RNA (RT-PCR) NEGATIVE (Negative) 05/13/22 Range/Units 13:39 WBC (4.8-10.8) X10*3/uL RBC (4.20-5.50) X10*6/uL Hgb (12.0-16.0) g/dl Hct (37.0-47.0) % MCV (80.0-98.0) fL MCH (27.0-33.0) pg MCHC (31.0-35.0) g/dl RDW (11.0-16.0) % Plt Count (160-400) X10*3/uL MPV (9.4-12.3) fL Immature Gran % (Auto) (0.0-0.4) % Neut % (Auto) (45-73) % Lymph % (Auto) (20-40) % [place] % (Auto) (2-11) % Eos % (Auto) (0-4) % Baso % (Auto) (0-2) % Lymph # (Auto) (1.2-4.9) X10*3/uL [place] # (Auto) (0.1-1.2) X10*3/uL Eos # (Auto) (0.0-0.4) X10*3/uL Baso # (Auto) (0.0-0.2) X10*3/uL Abs Immat Gran (auto) (0.00-0.03) X10*3/uL Absolute Neuts (auto) (2.0-8.3) x10*3/uL Absolute Nucleated RBC (0.0-0.012) X10*3/uL Nucleated RBC % (auto) (0.0-0.2) /100WBC D-Dimer High Sensitivty NG/ML Sodium (135-145) mmol/L Potassium (3.3-5.1) mmol/L Chloride (96-108) mmol/L Carbon Dioxide (22-29) mmol/L Anion Gap (12-20) BUN (9-16) mg/dL Creatinine (0.5-1.4) mg/dL Estim Creat Clear Calc Estimated GFR POC Glucose 87 (60-115) mg/dL Random Glucose (60-115) mg/dL Calcium (8.4-10.2) mg/dL Magnesium (1.6-2.6) mg/dL Total Bilirubin (0.0-1.0) mg/dL AST (5-31) U/L ALT (0-31) U/L Alkaline Phosphatase (39-117) U/L Troponin I High Sens (<3.5-17.0) ng/L B-Natriuretic Peptide (<100) pg/mL Total Protein (6.5-8.0) g/dL Albumin (3.5-5.0) g/dL TSH (0.32-4.0) uIU/mL Influenza Type A (PCR) (Negative) Influenza Type B (PCR) (Negative) RSV RNA Qual (PCR) (Negative) SARS-CoV-2 RNA (RT-PCR) (Negative) <DUSTY Yeung - Last Filed: 11/27/22 11:17> Lab Results 05/13/22 05/13/22 05/13/22 Range/Units 11:15 11:15 11:15 WBC 8.0 (4.8-10.8) X10*3/uL RBC 4.20 (4.20-5.50) X10*6/uL Hgb 10.7 L (12.0-16.0) g/dl Hct 34.3 L (37.0-47.0) % MCV 81.7 (80.0-98.0) fL MCH 25.5 L (27.0-33.0) pg MCHC 31.2 (31.0-35.0) g/dl RDW 14.6 (11.0-16.0) % Plt Count 332 (160-400) X10*3/uL MPV 10.8 (9.4-12.3) fL Immature Gran % (Auto) 0.4 (0.0-0.4) % Neut % (Auto) 62.7 (45-73) % Lymph % (Auto) 25.9 (20-40) % [place] % (Auto) 9.0 (2-11) % Eos % (Auto) 1.6 (0-4) % Baso % (Auto) 0.4 (0-2) % Lymph # (Auto) 2.1 (1.2-4.9) X10*3/uL [place] # (Auto) 0.7 (0.1-1.2) X10*3/uL Eos # (Auto) 0.1 (0.0-0.4) X10*3/uL Baso # (Auto) 0.0 (0.0-0.2) X10*3/uL Abs Immat Gran (auto) 0.03 (0.00-0.03) X10*3/uL Absolute Neuts (auto) 5.0 (2.0-8.3) x10*3/uL Absolute Nucleated RBC 0.000 (0.0-0.012) X10*3/uL Nucleated RBC % (auto) 0.0 (0.0-0.2) /100WBC D-Dimer High Sensitivty NG/ML Sodium 143 (135-145) mmol/L Potassium 4.3 (3.3-5.1) mmol/L Chloride 106 (96-108) mmol/L Carbon Dioxide 25 (22-29) mmol/L Anion Gap 16 (12-20) BUN 11 (9-16) mg/dL Creatinine 0.69 (0.5-1.4) mg/dL Estim Creat Clear Calc 126.7 Estimated GFR > 60 POC Glucose (60-115) mg/dL Random Glucose 101 (60-115) mg/dL Calcium 9.4 (8.4-10.2) mg/dL Magnesium 1.9 (1.6-2.6) mg/dL Total Bilirubin 0.3 (0.0-1.0) mg/dL AST 15 (5-31) U/L ALT 17 (0-31) U/L Alkaline Phosphatase 93 (39-117) U/L Troponin I High Sens < 3.5 (<3.5-17.0) ng/L B-Natriuretic Peptide (<100) pg/mL Total Protein 7.6 (6.5-8.0) g/dL Albumin 4.3 (3.5-5.0) g/dL TSH 2.96 (0.32-4.0) uIU/mL Influenza Type A (PCR) (Negative) Influenza Type B (PCR) (Negative) RSV RNA Qual (PCR) (Negative) SARS-CoV-2 RNA (RT-PCR) (Negative) 05/13/22 05/13/22 05/13/22 Range/Units 11:15 11:15 11:15 WBC (4.8-10.8) X10*3/uL RBC (4.20-5.50) X10*6/uL Hgb (12.0-16.0) g/dl Hct (37.0-47.0) % MCV (80.0-98.0) fL MCH (27.0-33.0) pg MCHC (31.0-35.0) g/dl RDW (11.0-16.0) % Plt Count (160-400) X10*3/uL MPV (9.4-12.3) fL Immature Gran % (Auto) (0.0-0.4) % Neut % (Auto) (45-73) % Lymph % (Auto) (20-40) % [place] % (Auto) (2-11) % Eos % (Auto) (0-4) % Baso % (Auto) (0-2) % Lymph # (Auto) (1.2-4.9) X10*3/uL [place] # (Auto) (0.1-1.2) X10*3/uL Eos # (Auto) (0.0-0.4) X10*3/uL Baso # (Auto) (0.0-0.2) X10*3/uL Abs Immat Gran (auto) (0.00-0.03) X10*3/uL Absolute Neuts (auto) (2.0-8.3) x10*3/uL Absolute Nucleated RBC (0.0-0.012) X10*3/uL Nucleated RBC % (auto) (0.0-0.2) /100WBC D-Dimer High Sensitivty 212 NG/ML Sodium (135-145) mmol/L Potassium (3.3-5.1) mmol/L Chloride (96-108) mmol/L Carbon Dioxide (22-29) mmol/L Anion Gap (12-20) BUN (9-16) mg/dL Creatinine (0.5-1.4) mg/dL Estim Creat Clear Calc Estimated GFR POC Glucose (60-115) mg/dL Random Glucose (60-115) mg/dL Calcium (8.4-10.2) mg/dL Magnesium (1.6-2.6) mg/dL Total Bilirubin (0.0-1.0) mg/dL AST (5-31) U/L ALT (0-31) U/L Alkaline Phosphatase (39-117) U/L Troponin I High Sens (<3.5-17.0) ng/L B-Natriuretic Peptide 32 (<100) pg/mL Total Protein (6.5-8.0) g/dL Albumin (3.5-5.0) g/dL TSH (0.32-4.0) uIU/mL Influenza Type A (PCR) NEGATIVE (Negative) Influenza Type B (PCR) NEGATIVE (Negative) RSV RNA Qual (PCR) NEGATIVE (Negative) SARS-CoV-2 RNA (RT-PCR) NEGATIVE (Negative) 05/13/22 Range/Units 13:39 WBC (4.8-10.8) X10*3/uL RBC (4.20-5.50) X10*6/uL Hgb (12.0-16.0) g/dl Hct (37.0-47.0) % MCV (80.0-98.0) fL MCH (27.0-33.0) pg MCHC (31.0-35.0) g/dl RDW (11.0-16.0) % Plt Count (160-400) X10*3/uL MPV (9.4-12.3) fL Immature Gran % (Auto) (0.0-0.4) % Neut % (Auto) (45-73) % Lymph % (Auto) (20-40) % [place] % (Auto) (2-11) % Eos % (Auto) (0-4) % Baso % (Auto) (0-2) % Lymph # (Auto) (1.2-4.9) X10*3/uL [place] # (Auto) (0.1-1.2) X10*3/uL Eos # (Auto) (0.0-0.4) X10*3/uL Baso # (Auto) (0.0-0.2) X10*3/uL Abs Immat Gran (auto) (0.00-0.03) X10*3/uL Absolute Neuts (auto) (2.0-8.3) x10*3/uL Absolute Nucleated RBC (0.0-0.012) X10*3/uL Nucleated RBC % (auto) (0.0-0.2) /100WBC D-Dimer High Sensitivty NG/ML Sodium (135-145) mmol/L Potassium (3.3-5.1) mmol/L Chloride (96-108) mmol/L Carbon Dioxide (22-29) mmol/L Anion Gap (12-20) BUN (9-16) mg/dL Creatinine (0.5-1.4) mg/dL Estim Creat Clear Calc Estimated GFR POC Glucose 87 (60-115) mg/dL Random Glucose (60-115) mg/dL Calcium (8.4-10.2) mg/dL Magnesium (1.6-2.6) mg/dL Total Bilirubin (0.0-1.0) mg/dL AST (5-31) U/L ALT (0-31) U/L Alkaline Phosphatase (39-117) U/L Troponin I High Sens (<3.5-17.0) ng/L B-Natriuretic Peptide (<100) pg/mL Total Protein (6.5-8.0) g/dL Albumin (3.5-5.0) g/dL TSH (0.32-4.0) uIU/mL Influenza Type A (PCR) (Negative) Influenza Type B (PCR) (Negative) RSV RNA Qual (PCR) (Negative) SARS-CoV-2 RNA (RT-PCR) (Negative) <Tahmina Banuelos NP - Last Filed: 05/13/22 17:26> Imaging Data Chest x-ray: Attestation: I personally reviewed and interpreted this imaging study as follows: <Tahmina Banuelos NP - Last Filed: 05/13/22 17:26> Radiologist's impression: CLINICAL INFORMATION: Chest pain COMPARISON: Chest x-ray March 31, 2022 TECHNIQUE: 2 views of the chest were obtained. FINDINGS: Stable cardiac silhouette. The lungs are well aerated. There is no lobar consolidation. No pleural effusion or pneumothorax. Mild degenerative changes of the spine. XR/XR chest 2V IMPRESSION: No acute pulmonary pathology. ? <Tahmina Banuelos NP - Last Filed: 05/13/22 17:26> ECG Data Attestation: I personally reviewed and interpreted this ECG as follows: <Tahmina Banuelos NP - Last Filed: 05/13/22 17:26> Interpretation: Normal sinus rhythm with a rate of 62, normal OR, normal QRS, normal QT <BALBINA Gerard Last Filed: 05/13/22 17:26> Discharge Plan Discharge Clinical Impression: Chest pain, Hypertension <DUSTY Yeung - Last Filed: 05/13/22 11:17> Patient Disposition: Home, Self-Care <DUSTY Yeung - Last Filed: 05/13/22 11:17> Instructions: Chest Pain (ED), Hypertension (ED) <DUSTY Yeung - Last Filed: 05/13/22 11:17> Additional Instructions: Continue labetalol Start the new blood pressure medication Continue to follow-up with your referral for Cardiology. You may need to call your primary care doctor to prompt them to do this. <DUSTY Yeung - Last Filed: 05/13/22 11:17> Prescriptions: New amlodipine [Norvasc] 5 mg tablet 5 mg PO DAILY Qty: 30 0RF No Action FreeStyle Lite Strips Strip 4 strip miscellaneous QID 30 Days Qty: 100 1RF ibuprofen [IBU] 800 mg tablet 800 mg PO Q8H PRN (Reason: pain/headaches) 30 Days Qty: 90 0RF Rx Instructions: Take with food lidocaine 5 % adhesive patch,medicated 1 patch topical DAILY Qty: 30 0RF Rx Instructions: leave on most painful area for up to 12 hrs labetalol 100 mg tablet 100 mg PO BID Qty: 180 1RF cyclobenzaprine 10 mg tablet 10 mg PO TID PRN (Reason: muscle spasm) Qty: 14 0RF naproxen 500 mg tablet 500 mg PO BID PRN (Reason: pain) Qty: 20 0RF ondansetron 4 mg tablet,disintegrating 4 mg PO Q8H PRN (Reason: nausea and vomiting) Qty: 10 0RF gabapentin 400 mg capsule 400 mg PO TID 30 Days Qty: 90 3RF Rx Instructions: 1 capsule Orally Three times a day miscellaneous medical supply Misc 1 ea miscellaneous DAILY 99 Days Qty: 2 0RF sertraline 100 mg tablet 100 mg PO DAILY ferrous sulfate [Feosol] 325 mg (65 mg iron) tablet 325 mg PO DAILY 30 Days Qty: 30 5RF hydroxyzine HCl 25 mg tablet See Rx Instructions .ROUTE .COMPLEX 30 Days Qty: 180 3RF Rx Instructions: 1 to 2 tablets 3 times a day as needed for anxiety; lidocaine 5 % adhesive patch,medicated 1 patch topical DAILY Qty: 15 0RF Rx Instructions: leave on most painful area for up to 12 hrs doxycycline hyclate 100 mg tablet 100 mg PO BID 5 Days Qty: 10 0RF (DME) lancets [FreeStyle Lancets] 28 gauge misc See Rx Instructions .ROUTE .MEDSUPPLY Qty: 100 1RF Rx Instructions: 4 times/day bupropion HCl 150 mg tablet extended release 24 hr 150 mg PO QAM Dexilant 60 mg capsule,biphase delayed releas 60 mg PO DAILY Qty: 30 6RF ibuprofen 600 mg tablet 600 mg PO Q6H PRN (Reason: pain) spironolactone 50 mg tablet 50 mg PO BID Qty: 60 5RF metoclopramide HCl [Reglan] 5 mg tablet 5 mg PO QIDACHS Qty: 120 6RF Linzess 145 mcg capsule 145 mcg PO QAM Qty: 30 6RF <DUSTY Yeung - Last Filed: 05/13/22 11:17> Referrals: Jarrod Sherman MD [Primary Care Provider] - 1 week Julito Tai MD [Physician] - 1 week <DUSTY Yeung - Last Filed: 05/13/22 11:17>
[2022-05-13 11:20] LABS: MANUAL DIFF FLAG NO
[2022-05-13 11:21] LABS: Basophils Percent Auto 0.4 % (0-2); Eosinophils Absolute Auto 0.1 X10*3/uL (0.0-0.4); Eosinophils Percent Auto 1.6 % (0-4); Hematocrit 34.3 % (37.0-47.0); Hemoglobin 10.7 g/dl (12.0-16.0); Imm Gran Abs Auto 0.03 X10*3/uL (0.00-0.03); Imm Gran Pct Auto 0.4 % (0.0-0.4); Lymphocytes Absolute Auto 2.1 X10*3/uL (1.2-4.9); Lymphocytes Percent Auto 25.9 % (20-40); Mean Corpuscular HGB Conc 31.2 g/dl (31.0-35.0); Mean Corpuscular Hemoglobin 25.5 pg (27.0-33.0); Mean Corpuscular Volume 81.7 fL (80.0-98.0); Mean Platelet Volume 10.8 fL (9.4-12.3); Monocytes Absolute Auto 0.7 X10*3/uL (0.1-1.2); Neutrophils Percent Auto 62.7 % (45-73); Platelet Count 332 X10*3/uL (160-400); Red Cell Distribution Width 14.6 % (11.0-16.0)
[2022-05-13 11:35] LABS: D Dimer High Sensitivity 212 NG/ML
[2022-05-13 11:36] LABS: Alanine Aminotransferase 17 U/L (0-31); Albumin Level 4.3 g/dL (3.5-5.0); Alkaline Phosphatase 93 U/L (39-117); Anion Gap 16 (12-20); Aspartate Amino Transferase 15 U/L (5-31); Bilirubin Total 0.3 mg/dL (0.0-1.0); Blood Urea Nitrogen 11 mg/dL (9-16); Calcium 9.4 mg/dL (8.4-10.2); Carbon Dioxide 25 mmol/L (22-29); Chloride 106 mmol/L (96-108); Creatinine Clr Calc Pharmacy 126.7; Estimated Glomerular Filt Rate > 60; Glucose Random 101 mg/dL (60-115); Magnesium 1.9 mg/dL (1.6-2.6); Potassium 4.3 mmol/L (3.3-5.1); Sodium 143 mmol/L (135-145); Total Protein 7.6 g/dL (6.5-8.0)
[2022-05-13 11:43] LABS: B Type Natriuretic Peptide 32 pg/mL (<100); Troponin-I High Sensitivity < 3.5 ng/L (<3.5-17.0)
[2022-05-13 12:02] LABS: Influenza A PCR NEGATIVE (Negative); Influenza B PCR NEGATIVE (Negative); Resp Syncy Virus RNA Qual PCR NEGATIVE (Negative); SARS COV2 PCR INHOUSE NEGATIVE (Negative)
[2022-05-13 13:44] LABS: Glucose, Whole Blood 87 mg/dL (60-115)
[2022-05-13 15:40] LABS: TSH reflex Free T4 2.96 uIU/mL (0.32-4.0)
[2022-05-13] MEDS: amLODIPine Besylate 5 MG TABLET PO (16:00)
[2022-05-13] MEDS: Labetalol HCL 100 MG TABLET PO (16:01)
[2022-05-13 16:06] VITALS: BP 198/104; PULSE 65; RESP 16; TEMP 36.3; O2SAT 99
[2022-05-13 17:18] VITALS: BP 175/92; PULSE 68; RESP 18; O2SAT 99
== END 2022-05-13 17:32 | disposition home or self-care (01) ==
PROVIDERS: Nurse Practitioner Family; Physician Assistant Medical; Emergency Provider Emergency Medicine; PCP Internal Medicine
DX: R07.89 Other chest pain (principal); M54.50 Low back pain, unspecified; I10 Essential (primary) hypertension; R06.02 Shortness of breath; Z20.822 Contact with and (suspected) exposure to COVID-19; Z79.899 Other long term (current) drug therapy
CPT/HCPCS: 0241U; 36415; 71046; 80053; 82947; 83735; 83880; 84443; 84484; 85025; 85379; 93005; 99284

== ENCOUNTER 2022-05-14 10:15 | Emergency (ER) | payer OTHER, SELFPAY ==
--- NOTE | ~2022-05-14 | CT_ITS ---
EXAMINATION: CT HEAD WITHOUT CONTRAST CLINICAL INFORMATION: Headache and blurred vision COMPARISON: Head CT 10/13/2018 TECHNIQUE: Imaging was performed from the skull base to vertex without intravenous administration of contrast. This CT examination was performed using dose optimization techniques as appropriate, variously including the following: *Automated exposure control *Adjustment of mA and/or kV according to patient size (this includes techniques or standardized protocols for targeted exams where dose is matched to indication/reason for exam; i.e. extremities or head) *Use of iterative reconstruction technique Total exam dose length product: 669 mGy-cm FINDINGS: No intra or extra-axial fluid collection, hemorrhage, or mass. No ventriculomegaly. Asymmetry with the left lateral ventricle smaller than the right, unchanged and presumably normal variation. No midline shift or herniation. Basal cisterns are patent. Alejandro-white matter differentiation is maintained. No territorial encephalomalacia. No significant volume loss. There is no abnormal attenuation within the brain parenchyma. No calvarial fracture or soft tissue abnormality. The mastoid air cells and visualized portions of the paranasal sinuses are well aerated. CT/CT head/brain wo IV con IMPRESSION: No acute intracranial pathology.
--- NOTE | ~2022-05-14 | XR_ITS ---
EXAMINATION: XR CHEST CLINICAL INFORMATION: Chest pain. COMPARISON: 05/13/2022 chest radiographs. TECHNIQUE: Frontal view of the chest was obtained. FINDINGS: No significant abnormality is noted involving the heart, lungs, mediastinum, bony thorax or soft tissues. XR/XR chest 1V IMPRESSION: No acute cardiopulmonary process.
[2022-05-14 11:25] VITALS: BP 177/84; PULSE 62; RESP 18; TEMP 36.3; O2SAT 99; BMI 41.9
[2022-05-14 14:34] VITALS: BP 176/102; PULSE 60; RESP 16; TEMP 36.4; O2SAT 99
--- NOTE | 2022-05-14 14:37 | ED.GENADULT ---
HPI - General Adult General Chief complaint: General Medical <DUSTY Saavedra - Last Filed: 05/14/22 14:44> Stated complaint: HBP/Chest pain/Vomiting sent by PCP <DUSTY Saavedra - Last Filed: 05/14/22 14:44> Time Seen by Provider: 05/14/22 15:27 <DUSTY Saavedra - Last Filed: 05/14/22 14:44> Source: patient <DUSTY Jc - Last Filed: 05/14/22 18:15> Mode of arrival: ambulatory <DUSTY Jc Last Filed: 05/14/22 18:15> History of Present Illness HPI narrative: 31-year-old female with a history of bipolar 2 disorder, fibromyalgia, depression, anxiety, obesity, ADHD, constipation, GERD, gastritis, PCOS, HTN, HLD, chronic lower back pain, presenting to the ED sent in by PCP for hypertension and chest pain x2 months. Patient also reports headache, blurry vision beginning last night with episode of nausea and vomiting this morning, vomited up BP medications. Patient was evaluated in our ED last night, had labs and imaging are unremarkable, started on additional Norvasc however did not case picker from the pharmacy. Reports continued headache at present. Denies neck pain, numbness, tingling, weakness, abdominal pain. Denies taking anticoagulation <DUSTY Jc - Last Filed: 05/14/22 18:15> Onset (ago): day(s) <DUSTY Jc - Last Filed: 05/14/22 18:15> Related Data Home medications: Home Medications Medication Instructions Recorded Confirmed sertraline 100 mg tablet 100 mg PO DAILY 08/22/20 05/08/22 bupropion HCl 150 mg 24 hr tablet, 150 mg PO QAM 05/03/21 05/08/22 extended release ibuprofen 600 mg tablet 600 mg PO Q6H PRN pain 01/05/22 05/08/22 Previous Rx's Medication Instructions Recorded lancets 28 gauge (FreeStyle #100 ea 06/27/20 Lancets) FreeStyle Lite Strips (blood sugar 4 strip miscellaneous QID 30 days 07/20/20 diagnostic) #100 strips miscellaneous medical supply 1 ea miscellaneous DAILY 99 days 01/03/21 #2 ea gabapentin 400 mg capsule 400 mg PO TID 30 days #90 caps 02/01/21 dexlansoprazole 60 mg 60 mg PO DAILY #30 caps 05/19/21 capsule,biphase delayed release (Dexilant) linaclotide 145 mcg capsule 145 mcg PO QAM #30 caps 08/17/21 (Linzess) metoclopramide HCl 5 mg tablet 5 mg PO QIDACHS #120 tabs 08/17/21 (Reglan) ibuprofen 800 mg tablet (IBU) 800 mg PO Q8H PRN pain/headaches 08/24/21 30 days #90 tabs lidocaine 5 % topical patch 1 patch topical DAILY #30 ea 11/24/21 spironolactone 50 mg tablet 50 mg PO BID #60 tabs 01/05/22 ferrous sulfate 325 mg (65 mg 325 mg PO DAILY 30 days #30 tabs 04/04/22 iron) tablet (Feosol) hydroxyzine HCl 25 mg tablet See Rx Instructions .Route 04/04/22 .COMPLEX anxiety 30 days #180 tabs labetalol 100 mg tablet 100 mg PO BID #180 tabs 04/12/22 cyclobenzaprine 10 mg tablet 10 mg PO TID PRN muscle spasm #14 05/04/22 tabs naproxen 500 mg tablet 500 mg PO BID PRN pain #20 tabs 05/04/22 ondansetron 4 mg disintegrating 4 mg PO Q8H PRN nausea and 05/04/22 tablet vomiting #10 tabs doxycycline hyclate 100 mg tablet 100 mg PO BID 5 days #10 tabs 05/08/22 lidocaine 5 % topical patch 1 patch topical DAILY #15 ea 05/08/22 amlodipine 5 mg tablet (Norvasc) 5 mg PO DAILY #30 tabs 05/13/22 BEDSIDE COMMODE #1 ea 05/14/22 FRONT-WHEELED WALKER #1 ea 05/14/22 TUB SEAT with BACK #1 ea 05/14/22 <DUSTY Saavedra - Last Filed: 05/14/22 14:44> Allergies/adverse reactions: Allergies Allergy/AdvReac Type Severity Reaction Status Date / Time amoxicillin [AMOXICILLIN] Allergy Intermediate NAUSEA & Verified 05/08/22 09:08 VOMITING, stomach pain, vomiting, stomach upset topiramate [From TOPAMAX] Allergy Intermediate TREMORS, Verified 05/08/22 09:08 nausea and vomiting latex [LATEX] Allergy Mild RASH Verified 05/08/22 09:08 medroxyprogesterone Allergy Mild RASH Verified 05/08/22 09:08 [From PROVERA] lactose Allergy bloating , Verified 05/08/22 09:08 diarrhea <DUSTY Saavedra - Last Filed: 05/14/22 14:44> Review of Systems Review of Systems: Constitutional: No Fever, No Chills, No Fatigue, No Malaise ENT/Mouth: No Ear Pain, No Nasal Congestion, No Sinus Pain, No Hoarseness, No sore throat, No Rhinorrhea, No Swallowing Difficulty Eyes: No Eye Pain, No Swelling, No Redness,+Vision Changes Cardiovascular: + Chest Pain, No SOB, No Dyspnea on Exertion, No Edema, No Palpitations Respiratory: No Cough, No Sputum, No Wheezing, No Dyspnea Gastrointestinal: No Nausea, No Vomiting, No Diarrhea, No Constipation, No Abdominal pain Genitourinary: No Dysuria, No Urinary Frequency, No Hematuria, No Urinary Incontinence/retention, No Flank Pain Musculoskeletal: No joint pain, No Myalgias, No Joint Swelling Skin: No Skin Lesions, No rash Neuro: No Weakness, No Numbness, No Paresthesias, No Loss of Consciousness, No Dizziness, + Headache <DUSTY Jc Last Filed: 05/14/22 18:15> Yes all other systems are reviewed and are negative <DUSTY Jc Last Filed: 05/14/22 18:15> Constitutional: Constitutional: Reports as per HPI <DUSTY Jc Last Filed: 05/14/22 18:15> Neurologic: Denies Abnormal speech present <DUSTY Jc Last Filed: 05/14/22 18:15> [facility] Past Medical History Attestation statement: The following information was validated with the patient. <DUSTY Jc Last Filed: 05/14/22 18:15> Medical History: Medical History Anxiety Arthritis Carpal tunnel syndrome, bilateral Depression Depression Fibromyalgia Hyperlipemia Hypertension Insomnia Lower back pain Migraine Migraines Morbid obesity Morbid obesity with BMI of 40.0-44.9, adult Obesity Obesity (BMI 30-39.9) PCOS (polycystic ovarian syndrome) Polyuria Rheumatoid arthritis Second trimester Smoker Vulvar cyst <DUSTY Saavedra - Last Filed: 05/14/22 14:44> Surgical History: Surgical History History of esophagogastroduodenoscopy (EGD) History of removal of cyst History of tonsillectomy and adenoidectomy <DUSTY Saavedra - Last Filed: 05/14/22 14:44> Family History Family History: Family History Father Medical history unknown Mother Diabetes Hypertension Maternal Aunt Breast cancer Ovarian cancer Mental health disorder Maternal Grandmother Diabetes Hypertension <DUSTY Saavedra - Last Filed: 05/14/22 14:44> Social History Social History: Social History Household Members: Spouse and Children Housing: Condominium Alcohol intake: never Patient Tobacco Use Status: Former Tobacco user Tobacco use type: Cigarette Cigarettes Per Day: 3 e-Cigarette/Vaping Use: Never Used Second Hand Smoke Exposure: No Substance Use Type: Marijuana Advance Directives: No Advance Directives Information Provided: Yes service: No Current occupational status: disabled Sexual orientation: Straight/Heterosexual Gender identity: Female Cognitive needs: No Hearing needs: No Vision needs: Yes <DUSTY Saavedra - Last Filed: 05/14/22 14:44> Physical Exam ED Vital Signs: Vital Signs - 24 hr 05/14/22 11:25 05/14/22 14:34 05/14/22 15:38 Temperature 97.4 F 97.5 F 98.9 F Pulse Rate 62 60 62 Respiratory Rate 18 16 17 Blood Pressure 177/84 H 176/102 H 178/86 H Pulse Oximetry 99 99 97 Oxygen Delivery Method Room Air Room Air Room Air 05/14/22 18:10 Temperature 98.9 F Pulse Rate 62 Respiratory Rate 19 Blood Pressure 148/85 H Pulse Oximetry 100 Oxygen Delivery Method Room Air BMI result Body Mass Index 41.9 <DUSTY Saavedra - Last Filed: 05/14/22 14:44> Vital Signs - 24 hr 05/14/22 11:25 05/14/22 14:34 05/14/22 15:38 Temperature 97.4 F 97.5 F 98.9 F Pulse Rate 62 60 62 Respiratory Rate 18 16 17 Blood Pressure 177/84 H 176/102 H 178/86 H Pulse Oximetry 99 99 97 Oxygen Delivery Method Room Air Room Air Room Air 05/14/22 18:10 Temperature 98.9 F Pulse Rate 62 Respiratory Rate 19 Blood Pressure 148/85 H Pulse Oximetry 100 Oxygen Delivery Method Room Air BMI result Body Mass Index 41.9 <DUSTY Jc - Last Filed: 05/14/22 18:15> Vital Signs - 24 hr 05/14/22 11:25 05/14/22 14:34 05/14/22 15:38 Temperature 97.4 F 97.5 F 98.9 F Pulse Rate 62 60 62 Respiratory Rate 18 16 17 Blood Pressure 177/84 H 176/102 H 178/86 H Pulse Oximetry 99 99 97 Oxygen Delivery Method Room Air Room Air Room Air 05/14/22 18:10 Temperature 98.9 F Pulse Rate 62 Respiratory Rate 19 Blood Pressure 148/85 H Pulse Oximetry 100 Oxygen Delivery Method Room Air BMI result Body Mass Index 41.9 <Guera Luong CNP - Last Filed: 05/14/22 18:45> Const General: cooperative, healthy appearing, comfortable, no acute distress, alert and awake <DUSTY Jc - Last Filed: 05/14/22 18:15> Orientation/consciousness: patient oriented x3 <DUSTY Jc - Last Filed: 05/14/22 18:15> Limitations: no limitations <DUSTY Jc - Last Filed: 05/14/22 18:15> HENMT Head: Yes normal to inspection and Yes atraumatic <DUSTY Jc - Last Filed: 05/14/22 18:15> Ears: hearing grossly normal bilaterally <DUSTY Jc - Last Filed: 05/14/22 18:15> General nose exam: Normal external nose present <DUSTY Jc - Last Filed: 05/14/22 18:15> Face and sinus: Yes normal facial exam <Lisa Reza [facility] Last Filed: 05/14/22 18:15> Throat: Yes posterior oropharynx normal, Yes tonsils normal, Yes uvula midline and No peritonsillar mass <Lisa Reza [place] - Last Filed: 05/14/22 18:15> Eyes General: appearance normal, both eyes and all related structures <Lisa Reza [facility] Last Filed: 05/14/22 18:15> Pupils: Equal, round and reactive pupils present <Lisa Reza [facility] Last Filed: 05/14/22 18:15> EOM: EOMs intact bilaterally <Lisa Reza [place] - Last Filed: 05/14/22 18:15> Neck Neck: Yes normal visual inspection and Yes no meningeal signs <Lisa Reza [facility] Last Filed: 05/14/22 18:15> Chest Chest palpation & inspection: normal inspection of the chest, no crepitus and tenderness sternum <Lisa Reza [facility] Last Filed: 05/14/22 18:15> Resp Effort & Inspection: normal respiratory effort and no respiratory distress <Lisa Reza [facility] Last Filed: 05/14/22 18:15> Auscultation: clear to auscultation bilaterally, no crackles, no rales, no rhonchi and no wheezes <Lisa Reza [facility] Last Filed: 05/14/22 18:15> Cardio Rate: regular rate <Lisa Reza [facility] Last Filed: 05/14/22 18:15> Heart sounds: S1 normal heart sound present and S2 normal heart sound present <Lisa Reza [facility] Last Filed: 05/14/22 18:15> GI Inspection: Yes normal to inspection <Lisa Reza [facility] Last Filed: 05/14/22 18:15> Palpation (GI): Soft to palpation, nontender, no guarding and not rigid <Lisa Reza [facility] Last Filed: 05/14/22 18:15> Skin Rashes: no rashes <Lisa Reza [facility] Last Filed: 05/14/22 18:15> Wounds: no wounds <Lisa Reza PA - Last Filed: 05/14/22 18:15> Neuro General: patient oriented x3, gait normal, tone normal, moves all extremities, no meningeal signs, no focal motor deficits and CN's II-XI intact bilaterally <Lisa Adrianaedita PA - Last Filed: 05/14/22 18:15> Cranial nerves: Yes CN's II-XII intact bilaterally, Yes Equal, round and reactive pupils present and Yes Bilaterally intact EOM present <Lisa Reza PA - Last Filed: 05/14/22 18:15> Cognition (Neuro): normal cognition <Lisa Reza PA - Last Filed: 05/14/22 18:15> Speech: No Abnormal speech present <Lisa Reza PA - Last Filed: 05/14/22 18:15> Gait exam (Neuro): Normal gait present <Lisa Reza PA - Last Filed: 05/14/22 18:15> Motor exam (neuro): 5/5 motor strength present throughout and Pronator motor function not present <Lisa Reza PA - Last Filed: 05/14/22 18:15> Coordination: [id number] test normal <Lisa Reza PA - Last Filed: 05/14/22 18:15> Romberg Test: Negative <Lisa Reza PA - Last Filed: 05/14/22 18:15> Extrem General: Yes normal to inspection, Yes no pedal edema and Yes no calf tenderness <DUSTY Jc - Last Filed: 05/14/22 18:15> Course Course Course Narrative: -UA not infected XR chest 1V IMPRESSION: No acute cardiopulmonary process. CT head/brain wo IV con IMPRESSION: No acute intracranial pathology. >1800--ED care transferred to [facility] pending labs and re-evaluation <DUSTY Jc - Last Filed: 05/14/22 18:15> Reevaluation(s) Reevaluation #1: RME: 31 YO f hx htn, anxiety, depression presents w/ htn from PCP reports headache, dizziness, cp ( sharp non- radiating) and blurred vision X 2 months. Was here yesterday [place] [facility] [place]. Denies head trauma, sob, fevers, chills, neck pain, wekaness, nausea, vomiting,a bd pain . Not on blood thinners PE: benign. NIHSS-0. Pressure 176/102 Plan: head CT, labs, ekg, trop <DUSTY Saavedra - Last Filed: 05/14/22 14:44> Time: 14:39 <DUSTY Saavedra - Last Filed: 05/14/22 14:44> Reevaluation #2: Now reports nausea. Zofran ordered. <DUSTY Saavedra - Last Filed: 05/14/22 14:44> Reevaluation #3: CBC reveals a normocytic anemia consistent baseline not meeting transfusion criteria. CMP is overall unremarkable. Troponin not detectable. Blood pressure on repeat 148/85. Discussed with patient and care for discharge home. Advised picking up Norvasc from pharmacy, continuing labetalol as prescribed. Outpatient follow-up with her primary care doctor. All questions answered. She was discharged home in stable condition. <Guera Luong CNP - Last Filed: 05/14/22 18:45> Time: 18:37 <Guera Luong CNP - Last Filed: 05/14/22 18:45> Medications Administered Discontinued Medications Generic Name Dose Route Start Last Admin Trade Name Freq PRN Reason Stop Dose Admin Acetaminophen 975 mg 05/14/22 14:42 05/14/22 14:49 Acetaminophen 325 Mg Tablet PO 05/14/22 14:43 975 mg ONCE ONE Administration Ondansetron HCl 4 mg 05/14/22 14:44 05/14/22 14:48 Ondansetron Odt 4 Mg Tab.Rapdis TRANSLINGU 05/14/22 14:45 4 mg ONCE ONE Administration <DUSTY Saavedra - Last Filed: 05/14/22 14:44> Medications Administered Discontinued Medications Generic Name Dose Route Start Last Admin Trade Name Freq PRN Reason Stop Dose Admin Acetaminophen 975 mg 05/14/22 14:42 05/14/22 14:49 Acetaminophen 325 Mg Tablet PO 05/14/22 14:43 975 mg ONCE ONE Administration Ondansetron HCl 4 mg 05/14/22 14:44 05/14/22 14:48 Ondansetron Odt 4 Mg Tab.Rapdis TRANSLINGU 05/14/22 14:45 4 mg ONCE ONE Administration <DUSTY Jc - Last Filed: 05/14/22 18:15> Medications Administered Discontinued Medications Generic Name Dose Route Start Last Admin Trade Name Bob PRN Reason Stop Dose Admin Acetaminophen 975 mg 05/14/22 14:42 05/14/22 14:49 Acetaminophen 325 Mg Tablet PO 05/14/22 14:43 975 mg ONCE ONE Administration Ondansetron HCl 4 mg 05/14/22 14:44 05/14/22 14:48 Ondansetron Odt 4 Mg Tab.Vickydis TRANSLINGU 05/14/22 14:45 4 mg ONCE ONE Administration <Guera Luong CNP - Last Filed: 05/14/22 18:45> Medical Decision Making MDM Narrative Medical decision making narrative: 31-year-old female with a history of bipolar 2 disorder, fibromyalgia, depression, anxiety, obesity, ADHD, constipation, GERD, gastritis, PCOS, HTN, HLD, chronic lower back pain, presenting to the ED sent in by PCP for hypertension and chest pain x2 months. Patient also reports headache, blurry vision beginning last night with episode of nausea and vomiting this morning, vomited up BP medications. On exam initially hypertensive 176/102 in triage, no focal neuro deficits, chest pain reproducible on exam, no pedal edema or calf tenderness. Concern for hypertensive urgency/emergency vs medication noncompliance vs ACS/ICH vs costochondritis Labs reviewed from yesterday including D-dimer which were unremarkable. Plan: EKG, repeat labs, CXR, head CT, PO Norvasc, pain medication, re-evaluate, anticipated discharge home <DUSTY Jc - Last Filed: 05/14/22 18:15> Medical Records Medical records reviewed: Yes I reviewed the patient's medical records. <DUSTY Jc - Last Filed: 05/14/22 18:15> Lab Data Lab results reviewed: Yes I reviewed the patient's lab results. <DUSTY Jc - Last Filed: 05/14/22 18:15> Result diagrams: : 05/14/22 17:52 05/14/22 17:52 <DUSTY Saavedra - Last Filed: 05/14/22 14:44> Labs: Lab Results 05/14/22 05/14/22 05/14/22 Range/Units 15:48 15:48 17:52 WBC 7.8 (4.8-10.8) X10*3/uL RBC 4.09 L (4.20-5.50) X10*6/uL Hgb 10.6 L (12.0-16.0) g/dl Hct 33.4 L (37.0-47.0) % MCV 81.7 (80.0-98.0) fL MCH 25.9 L (27.0-33.0) pg MCHC 31.7 (31.0-35.0) g/dl RDW 14.6 (11.0-16.0) % Plt Count 309 (160-400) X10*3/uL MPV 10.8 (9.4-12.3) fL Immature Gran % (Auto) 0.4 (0.0-0.4) % Neut % (Auto) 50.4 (45-73) % Lymph % (Auto) 35.8 (20-40) % [place] % (Auto) 11.4 H (2-11) % Eos % (Auto) 1.5 (0-4) % Baso % (Auto) 0.5 (0-2) % Lymph # (Auto) 2.8 (1.2-4.9) X10*3/uL [place] # (Auto) 0.9 (0.1-1.2) X10*3/uL Eos # (Auto) 0.1 (0.0-0.4) X10*3/uL Baso # (Auto) 0.0 (0.0-0.2) X10*3/uL Abs Immat Gran (auto) 0.03 (0.00-0.03) X10*3/uL Absolute Neuts (auto) 3.9 (2.0-8.3) x10*3/uL Absolute Nucleated RBC 0.000 (0.0-0.012) X10*3/uL Nucleated RBC % (auto) 0.0 (0.0-0.2) /100WBC Sodium (135-145) mmol/L Potassium (3.3-5.1) mmol/L Chloride (96-108) mmol/L Carbon Dioxide (22-29) mmol/L Anion Gap (12-20) BUN (9-16) mg/dL Creatinine (0.5-1.4) mg/dL Estim Creat Clear Calc Estimated GFR Random Glucose (60-115) mg/dL Calcium (8.4-10.2) mg/dL Magnesium (1.6-2.6) mg/dL Total Bilirubin (0.0-1.0) mg/dL AST (5-31) U/L ALT (0-31) U/L Alkaline Phosphatase (39-117) U/L Troponin I High Sens (<3.5-17.0) ng/L Total Protein (6.5-8.0) g/dL Albumin (3.5-5.0) g/dL Lipase (8-78) U/L Urine Color Yellow Urine Appearance Turbid Urine pH >= 9.0 (5.0-9.0) Ur Specific [place] 1.020 (1.005-1.025) Urine Protein 30 (1+) H (Neg-Trace) mg/dL Urine Glucose (UA) Negative (Negative) mg/dL Urine Ketones Negative (Negative) mg/dL Urine Blood Negative (Negative) Urine Nitrite Negative (Negative) Ur Leukocyte Esterase Trace H (Negative) Urine RBC 0-2 (0-2) /HPF Urine WBC 0-5 (0-5) /HPF Ur Squamous Epith Cells 0-2 (0-2) /HPF Urine Bacteria Trace (None Seen) Hyaline Casts 0-2 (0-2) /LPF Urine Test NEGATIVE (NEGATIVE) 05/14/22 05/14/22 05/14/22 Range/Units 17:52 17:52 17:52 WBC (4.8-10.8) X10*3/uL RBC (4.20-5.50) X10*6/uL Hgb (12.0-16.0) g/dl Hct (37.0-47.0) % MCV (80.0-98.0) fL MCH (27.0-33.0) pg MCHC (31.0-35.0) g/dl RDW (11.0-16.0) % Plt Count (160-400) X10*3/uL MPV (9.4-12.3) fL Immature Gran % (Auto) (0.0-0.4) % Neut % (Auto) (45-73) % Lymph % (Auto) (20-40) % [place] % (Auto) (2-11) % Eos % (Auto) (0-4) % Baso % (Auto) (0-2) % Lymph # (Auto) (1.2-4.9) X10*3/uL [place] # (Auto) (0.1-1.2) X10*3/uL Eos # (Auto) (0.0-0.4) X10*3/uL Baso # (Auto) (0.0-0.2) X10*3/uL Abs Immat Gran (auto) (0.00-0.03) X10*3/uL Absolute Neuts (auto) (2.0-8.3) x10*3/uL Absolute Nucleated RBC (0.0-0.012) X10*3/uL Nucleated RBC % (auto) (0.0-0.2) /100WBC Sodium 140 (135-145) mmol/L Potassium 4.3 (3.3-5.1) mmol/L Chloride 107 (96-108) mmol/L Carbon Dioxide 26 (22-29) mmol/L Anion Gap 11 L (12-20) BUN 9 (9-16) mg/dL Creatinine 0.67 (0.5-1.4) mg/dL Estim Creat Clear Calc 131.2 Estimated GFR > 60 Random Glucose 91 (60-115) mg/dL Calcium 9.5 (8.4-10.2) mg/dL Magnesium 2.1 (1.6-2.6) mg/dL Total Bilirubin 0.4 (0.0-1.0) mg/dL AST 13 (5-31) U/L ALT 13 (0-31) U/L Alkaline Phosphatase 86 (39-117) U/L Troponin I High Sens < 3.5 (<3.5-17.0) ng/L Total Protein 7.1 (6.5-8.0) g/dL Albumin 4.0 (3.5-5.0) g/dL Lipase 19 (8-78) U/L Urine Color Urine Appearance Urine pH (5.0-9.0) Ur Specific [place] (1.005-1.025) Urine Protein (Neg-Trace) mg/dL Urine Glucose (UA) (Negative) mg/dL Urine Ketones (Negative) mg/dL Urine Blood (Negative) Urine Nitrite (Negative) Ur Leukocyte Esterase (Negative) Urine RBC (0-2) /HPF Urine WBC (0-5) /HPF Ur Squamous Epith Cells (0-2) /HPF Urine Bacteria (None Seen) Hyaline Casts (0-2) /LPF Urine Test (NEGATIVE) <DUSTY Saavedra - Last Filed: 05/14/22 14:44> Lab Results 05/14/22 05/14/22 05/14/22 Range/Units 15:48 15:48 17:52 WBC 7.8 (4.8-10.8) X10*3/uL RBC 4.09 L (4.20-5.50) X10*6/uL Hgb 10.6 L (12.0-16.0) g/dl Hct 33.4 L (37.0-47.0) % MCV 81.7 (80.0-98.0) fL MCH 25.9 L (27.0-33.0) pg MCHC 31.7 (31.0-35.0) g/dl RDW 14.6 (11.0-16.0) % Plt Count 309 (160-400) X10*3/uL MPV 10.8 (9.4-12.3) fL Immature Gran % (Auto) 0.4 (0.0-0.4) % Neut % (Auto) 50.4 (45-73) % Lymph % (Auto) 35.8 (20-40) % [place] % (Auto) 11.4 H (2-11) % Eos % (Auto) 1.5 (0-4) % Baso % (Auto) 0.5 (0-2) % Lymph # (Auto) 2.8 (1.2-4.9) X10*3/uL [place] # (Auto) 0.9 (0.1-1.2) X10*3/uL Eos # (Auto) 0.1 (0.0-0.4) X10*3/uL Baso # (Auto) 0.0 (0.0-0.2) X10*3/uL Abs Immat Gran (auto) 0.03 (0.00-0.03) X10*3/uL Absolute Neuts (auto) 3.9 (2.0-8.3) x10*3/uL Absolute Nucleated RBC 0.000 (0.0-0.012) X10*3/uL Nucleated RBC % (auto) 0.0 (0.0-0.2) /100WBC Sodium (135-145) mmol/L Potassium (3.3-5.1) mmol/L Chloride (96-108) mmol/L Carbon Dioxide (22-29) mmol/L Anion Gap (12-20) BUN (9-16) mg/dL Creatinine (0.5-1.4) mg/dL Estim Creat Clear Calc Estimated GFR Random Glucose (60-115) mg/dL Calcium (8.4-10.2) mg/dL Magnesium (1.6-2.6) mg/dL Total Bilirubin (0.0-1.0) mg/dL AST (5-31) U/L ALT (0-31) U/L Alkaline Phosphatase (39-117) U/L Troponin I High Sens (<3.5-17.0) ng/L Total Protein (6.5-8.0) g/dL Albumin (3.5-5.0) g/dL Lipase (8-78) U/L Urine Color Yellow Urine Appearance Turbid Urine pH >= 9.0 (5.0-9.0) Ur Specific [place] 1.020 (1.005-1.025) Urine Protein 30 (1+) H (Neg-Trace) mg/dL Urine Glucose (UA) Negative (Negative) mg/dL Urine Ketones Negative (Negative) mg/dL Urine Blood Negative (Negative) Urine Nitrite Negative (Negative) Ur Leukocyte Esterase Trace H (Negative) Urine RBC 0-2 (0-2) /HPF Urine WBC 0-5 (0-5) /HPF Ur Squamous Epith Cells 0-2 (0-2) /HPF Urine Bacteria Trace (None Seen) Hyaline Casts 0-2 (0-2) /LPF Urine Test NEGATIVE (NEGATIVE) 05/14/22 05/14/22 05/14/22 Range/Units 17:52 17:52 17:52 WBC (4.8-10.8) X10*3/uL RBC (4.20-5.50) X10*6/uL Hgb (12.0-16.0) g/dl Hct (37.0-47.0) % MCV (80.0-98.0) fL MCH (27.0-33.0) pg MCHC (31.0-35.0) g/dl RDW (11.0-16.0) % Plt Count (160-400) X10*3/uL MPV (9.4-12.3) fL Immature Gran % (Auto) (0.0-0.4) % Neut % (Auto) (45-73) % Lymph % (Auto) (20-40) % [place] % (Auto) (2-11) % Eos % (Auto) (0-4) % Baso % (Auto) (0-2) % Lymph # (Auto) (1.2-4.9) X10*3/uL [place] # (Auto) (0.1-1.2) X10*3/uL Eos # (Auto) (0.0-0.4) X10*3/uL Baso # (Auto) (0.0-0.2) X10*3/uL Abs Immat Gran (auto) (0.00-0.03) X10*3/uL Absolute Neuts (auto) (2.0-8.3) x10*3/uL Absolute Nucleated RBC (0.0-0.012) X10*3/uL Nucleated RBC % (auto) (0.0-0.2) /100WBC Sodium 140 (135-145) mmol/L Potassium 4.3 (3.3-5.1) mmol/L Chloride 107 (96-108) mmol/L Carbon Dioxide 26 (22-29) mmol/L Anion Gap 11 L (12-20) BUN 9 (9-16) mg/dL Creatinine 0.67 (0.5-1.4) mg/dL Estim Creat Clear Calc 131.2 Estimated GFR > 60 Random Glucose 91 (60-115) mg/dL Calcium 9.5 (8.4-10.2) mg/dL Magnesium 2.1 (1.6-2.6) mg/dL Total Bilirubin 0.4 (0.0-1.0) mg/dL AST 13 (5-31) U/L ALT 13 (0-31) U/L Alkaline Phosphatase 86 (39-117) U/L Troponin I High Sens < 3.5 (<3.5-17.0) ng/L Total Protein 7.1 (6.5-8.0) g/dL Albumin 4.0 (3.5-5.0) g/dL Lipase 19 (8-78) U/L Urine Color Urine Appearance Urine pH (5.0-9.0) Ur Specific [place] (1.005-1.025) Urine Protein (Neg-Trace) mg/dL Urine Glucose (UA) (Negative) mg/dL Urine Ketones (Negative) mg/dL Urine Blood (Negative) Urine Nitrite (Negative) Ur Leukocyte Esterase (Negative) Urine RBC (0-2) /HPF Urine WBC (0-5) /HPF Ur Squamous Epith Cells (0-2) /HPF Urine Bacteria (None Seen) Hyaline Casts (0-2) /LPF Urine Test (NEGATIVE) <DUSTY Jc - Last Filed: 05/14/22 18:15> Lab Results 05/14/22 05/14/22 05/14/22 Range/Units 15:48 15:48 17:52 WBC 7.8 (4.8-10.8) X10*3/uL RBC 4.09 L (4.20-5.50) X10*6/uL Hgb 10.6 L (12.0-16.0) g/dl Hct 33.4 L (37.0-47.0) % MCV 81.7 (80.0-98.0) fL MCH 25.9 L (27.0-33.0) pg MCHC 31.7 (31.0-35.0) g/dl RDW 14.6 (11.0-16.0) % Plt Count 309 (160-400) X10*3/uL MPV 10.8 (9.4-12.3) fL Immature Gran % (Auto) 0.4 (0.0-0.4) % Neut % (Auto) 50.4 (45-73) % Lymph % (Auto) 35.8 (20-40) % [place] % (Auto) 11.4 H (2-11) % Eos % (Auto) 1.5 (0-4) % Baso % (Auto) 0.5 (0-2) % Lymph # (Auto) 2.8 (1.2-4.9) X10*3/uL [place] # (Auto) 0.9 (0.1-1.2) X10*3/uL Eos # (Auto) 0.1 (0.0-0.4) X10*3/uL Baso # (Auto) 0.0 (0.0-0.2) X10*3/uL Abs Immat Gran (auto) 0.03 (0.00-0.03) X10*3/uL Absolute Neuts (auto) 3.9 (2.0-8.3) x10*3/uL Absolute Nucleated RBC 0.000 (0.0-0.012) X10*3/uL Nucleated RBC % (auto) 0.0 (0.0-0.2) /100WBC Sodium (135-145) mmol/L Potassium (3.3-5.1) mmol/L Chloride (96-108) mmol/L Carbon Dioxide (22-29) mmol/L Anion Gap (12-20) BUN (9-16) mg/dL Creatinine (0.5-1.4) mg/dL Estim Creat Clear Calc Estimated GFR Random Glucose (60-115) mg/dL Calcium (8.4-10.2) mg/dL Magnesium (1.6-2.6) mg/dL Total Bilirubin (0.0-1.0) mg/dL AST (5-31) U/L ALT (0-31) U/L Alkaline Phosphatase (39-117) U/L Troponin I High Sens (<3.5-17.0) ng/L Total Protein (6.5-8.0) g/dL Albumin (3.5-5.0) g/dL Lipase (8-78) U/L Urine Color Yellow Urine Appearance Turbid Urine pH >= 9.0 (5.0-9.0) Ur Specific [place] 1.020 (1.005-1.025) Urine Protein 30 (1+) H (Neg-Trace) mg/dL Urine Glucose (UA) Negative (Negative) mg/dL Urine Ketones Negative (Negative) mg/dL Urine Blood Negative (Negative) Urine Nitrite Negative (Negative) Ur Leukocyte Esterase Trace H (Negative) Urine RBC 0-2 (0-2) /HPF Urine WBC 0-5 (0-5) /HPF Ur Squamous Epith Cells 0-2 (0-2) /HPF Urine Bacteria Trace (None Seen) Hyaline Casts 0-2 (0-2) /LPF Urine Test NEGATIVE (NEGATIVE) 05/14/22 05/14/22 05/14/22 Range/Units 17:52 17:52 17:52 WBC (4.8-10.8) X10*3/uL RBC (4.20-5.50) X10*6/uL Hgb (12.0-16.0) g/dl Hct (37.0-47.0) % MCV (80.0-98.0) fL MCH (27.0-33.0) pg MCHC (31.0-35.0) g/dl RDW (11.0-16.0) % Plt Count (160-400) X10*3/uL MPV (9.4-12.3) fL Immature Gran % (Auto) (0.0-0.4) % Neut % (Auto) (45-73) % Lymph % (Auto) (20-40) % [place] % (Auto) (2-11) % Eos % (Auto) (0-4) % Baso % (Auto) (0-2) % Lymph # (Auto) (1.2-4.9) X10*3/uL [place] # (Auto) (0.1-1.2) X10*3/uL Eos # (Auto) (0.0-0.4) X10*3/uL Baso # (Auto) (0.0-0.2) X10*3/uL Abs Immat Gran (auto) (0.00-0.03) X10*3/uL Absolute Neuts (auto) (2.0-8.3) x10*3/uL Absolute Nucleated RBC (0.0-0.012) X10*3/uL Nucleated RBC % (auto) (0.0-0.2) /100WBC Sodium 140 (135-145) mmol/L Potassium 4.3 (3.3-5.1) mmol/L Chloride 107 (96-108) mmol/L Carbon Dioxide 26 (22-29) mmol/L Anion Gap 11 L (12-20) BUN 9 (9-16) mg/dL Creatinine 0.67 (0.5-1.4) mg/dL Estim Creat Clear Calc 131.2 Estimated GFR > 60 Random Glucose 91 (60-115) mg/dL Calcium 9.5 (8.4-10.2) mg/dL Magnesium 2.1 (1.6-2.6) mg/dL Total Bilirubin 0.4 (0.0-1.0) mg/dL AST 13 (5-31) U/L ALT 13 (0-31) U/L Alkaline Phosphatase 86 (39-117) U/L Troponin I High Sens < 3.5 (<3.5-17.0) ng/L Total Protein 7.1 (6.5-8.0) g/dL Albumin 4.0 (3.5-5.0) g/dL Lipase 19 (8-78) U/L Urine Color Urine Appearance Urine pH (5.0-9.0) Ur Specific [place] (1.005-1.025) Urine Protein (Neg-Trace) mg/dL Urine Glucose (UA) (Negative) mg/dL Urine Ketones (Negative) mg/dL Urine Blood (Negative) Urine Nitrite (Negative) Ur Leukocyte Esterase (Negative) Urine RBC (0-2) /HPF Urine WBC (0-5) /HPF Ur Squamous Epith Cells (0-2) /HPF Urine Bacteria (None Seen) Hyaline Casts (0-2) /LPF Urine Test (NEGATIVE) <Guera Luong CNP - Last Filed: 05/14/22 18:45> ECG Data Attestation: I personally reviewed and interpreted this ECG as follows: <DUSTY Jc - Last Filed: 05/14/22 18:15> Interpretation: EKG normal sinus rhythm at a rate of 62. QRS 88. QTC 428. No STEMI. No significant change when compared to priors <DUSTY Jc - Last Filed: 05/14/22 18:15> Discharge Plan Discharge Clinical Impression: HTN (hypertension), Chest pain, Headache <DUSTY Saavedra - Last Filed: 05/14/22 14:44> Patient Disposition: Home, Self-Care <DSUTY Saavedra - Last Filed: 05/14/22 14:44> Instructions: Chest Pain (ED), Acute Headache (ED), Hypertension (ED) <DUSTY Saavedra - Last Filed: 05/14/22 14:44> Additional Instructions: Your workup today was unremarkable and reassuring. Continue to take previously prescribed labetalol and Norvasc. If monitor your blood pressure at home. Please have close follow-up with her doctor. If symptoms persist or worsen return to the emergency department <DUSTY Saavedra - Last Filed: 05/14/22 14:44> Prescriptions: No Action FreeStyle Lite Strips Strip 4 strip miscellaneous QID 30 Days Qty: 100 1RF ibuprofen [IBU] 800 mg tablet 800 mg PO Q8H PRN (Reason: pain/headaches) 30 Days Qty: 90 0RF Rx Instructions: Take with food lidocaine 5 % adhesive patch,medicated 1 patch topical DAILY Qty: 30 0RF Rx Instructions: leave on most painful area for up to 12 hrs labetalol 100 mg tablet 100 mg PO BID Qty: 180 1RF (DME) FRONT-WHEELED WALKER See Rx Instructions .Route .MEDSUPPLY Qty: 1 0RF Rx Instructions: As directed (DME) TUB SEAT with BACK See Rx Instructions .Route .MEDSUPPLY Qty: 1 0RF Rx Instructions: As directed (DME) BEDSIDE COMMODE See Rx Instructions .Route .MEDSUPPLY Qty: 1 0RF Rx Instructions: As directed cyclobenzaprine 10 mg tablet 10 mg PO TID PRN (Reason: muscle spasm) Qty: 14 0RF naproxen 500 mg tablet 500 mg PO BID PRN (Reason: pain) Qty: 20 0RF ondansetron 4 mg tablet,disintegrating 4 mg PO Q8H PRN (Reason: nausea and vomiting) Qty: 10 0RF amlodipine [Norvasc] 5 mg tablet 5 mg PO DAILY Qty: 30 0RF gabapentin 400 mg capsule 400 mg PO TID 30 Days Qty: 90 3RF Rx Instructions: 1 capsule Orally Three times a day miscellaneous medical supply Misc 1 ea miscellaneous DAILY 99 Days Qty: 2 0RF sertraline 100 mg tablet 100 mg PO DAILY ferrous sulfate [Feosol] 325 mg (65 mg iron) tablet 325 mg PO DAILY 30 Days Qty: 30 5RF hydroxyzine HCl 25 mg tablet See Rx Instructions .ROUTE .COMPLEX 30 Days Qty: 180 3RF Rx Instructions: 1 to 2 tablets 3 times a day as needed for anxiety; lidocaine 5 % adhesive patch,medicated 1 patch topical DAILY Qty: 15 0RF Rx Instructions: leave on most painful area for up to 12 hrs doxycycline hyclate 100 mg tablet 100 mg PO BID 5 Days Qty: 10 0RF (DME) lancets [FreeStyle Lancets] 28 gauge misc See Rx Instructions .ROUTE .MEDSUPPLY Qty: 100 1RF Rx Instructions: 4 times/day bupropion HCl 150 mg tablet extended release 24 hr 150 mg PO QAM Dexilant 60 mg capsule,biphase delayed releas 60 mg PO DAILY Qty: 30 6RF ibuprofen 600 mg tablet 600 mg PO Q6H PRN (Reason: pain) spironolactone 50 mg tablet 50 mg PO BID Qty: 60 5RF metoclopramide HCl [Reglan] 5 mg tablet 5 mg PO QIDACHS Qty: 120 6RF Linzess 145 mcg capsule 145 mcg PO QAM Qty: 30 6RF <DUSTY Saavedra - Last Filed: 05/14/22 14:44> Referrals: Jarrod Sherman MD [Primary Care Provider] - 3 days <DUSTY Saavedra - Last Filed: 05/14/22 14:44>
--- NOTE | 2022-05-14 14:39 | ECG_ITS ---
Test Reason : CP Blood Pressure : / mmHG Vent. Rate : 062 BPM Atrial Rate : 062 BPM P-R Int : 138 ms QRS Dur : 088 ms QT Int : 422 ms P-R-T Axes : 013 040 015 degrees QTc Int : 428 ms Normal sinus rhythm Normal ECG When compared with ECG of 13-MAY-2022 10:51, No significant change was found Referred By: Gina Reynaga Electronically Signed By:JADYN RICH MD
[2022-05-14] MEDS: Ondansetron ODT 4 MG TAB.RAPDIS TRANSLINGU (14:48)
[2022-05-14] MEDS: Acetaminophen 325 MG TABLET 975 MG PO (14:49)
[2022-05-14 15:38] VITALS: BP 178/86; PULSE 62; RESP 17; TEMP 37.2; O2SAT 97
--- NOTE | 2022-05-14 15:41 | ED_ITS ---
HPI - General Adult General Chief complaint: General Medical Stated complaint: HBP/Chest pain/Vomiting sent by PCP Time Seen by Provider: 05/14/22 15:27 Source: patient Mode of arrival: ambulatory History of Present Illness HPI narrative: 31-year-old female with a history of bipolar 2 disorder, fibromyalgia, depression, anxiety, obesity, ADHD, constipation, GERD, gastritis, PCOS, HTN, HLD, chronic lower back pain, Related Data Home Medications Medication Instructions Recorded Confirmed sertraline 100 mg tablet 100 mg PO DAILY 08/22/20 05/08/22 bupropion HCl 150 mg 24 hr tablet, 150 mg PO QAM 05/03/21 05/08/22 extended release ibuprofen 600 mg tablet 600 mg PO Q6H PRN pain 01/05/22 05/08/22 Previous Rx's Medication Instructions Recorded lancets 28 gauge (FreeStyle #100 ea 06/27/20 Lancets) FreeStyle Lite Strips (blood sugar 4 strip miscellaneous QID 30 days 07/20/20 diagnostic) #100 strips miscellaneous medical supply 1 ea miscellaneous DAILY 99 days 01/03/21 #2 ea gabapentin 400 mg capsule 400 mg PO TID 30 days #90 caps 02/01/21 dexlansoprazole 60 mg 60 mg PO DAILY #30 caps 05/19/21 capsule,biphase delayed release (Dexilant) linaclotide 145 mcg capsule 145 mcg PO QAM #30 caps 08/17/21 (Linzess) metoclopramide HCl 5 mg tablet 5 mg PO QIDACHS #120 tabs 08/17/21 (Reglan) ibuprofen 800 mg tablet (IBU) 800 mg PO Q8H PRN pain/headaches 08/24/21 30 days #90 tabs lidocaine 5 % topical patch 1 patch topical DAILY #30 ea 11/24/21 spironolactone 50 mg tablet 50 mg PO BID #60 tabs 01/05/22 ferrous sulfate 325 mg (65 mg 325 mg PO DAILY 30 days #30 tabs 04/04/22 iron) tablet (Feosol) hydroxyzine HCl 25 mg tablet See Rx Instructions .Route 04/04/22 .COMPLEX anxiety 30 days #180 tabs labetalol 100 mg tablet 100 mg PO BID #180 tabs 04/12/22 cyclobenzaprine 10 mg tablet 10 mg PO TID PRN muscle spasm #14 05/04/22 tabs naproxen 500 mg tablet 500 mg PO BID PRN pain #20 tabs 05/04/22 ondansetron 4 mg disintegrating 4 mg PO Q8H PRN nausea and 05/04/22 tablet vomiting #10 tabs doxycycline hyclate 100 mg tablet 100 mg PO BID 5 days #10 tabs 05/08/22 lidocaine 5 % topical patch 1 patch topical DAILY #15 ea 05/08/22 amlodipine 5 mg tablet (Norvasc) 5 mg PO DAILY #30 tabs 05/13/22 Allergies Allergy/AdvReac Type Severity Reaction Status Date / Time amoxicillin [AMOXICILLIN] Allergy Intermediate NAUSEA & Verified 05/08/22 09:08 VOMITING, stomach pain, vomiting, stomach upset topiramate [From TOPAMAX] Allergy Intermediate TREMORS, Verified 05/08/22 09:08 nausea and vomiting latex [LATEX] Allergy Mild RASH Verified 05/08/22 09:08 medroxyprogesterone Allergy Mild RASH Verified 05/08/22 09:08 [From PROVERA] lactose Allergy bloating , Verified 05/08/22 09:08 diarrhea Review of Systems Review of Systems: Yes all other systems are reviewed and are negative Constitutional: Constitutional: Reports as per [facility] Past Medical History Attestation statement: The following information was validated with the patient. Medical History Anxiety Arthritis Carpal tunnel syndrome, bilateral Depression Depression Fibromyalgia Hyperlipemia Hypertension Insomnia Lower back pain Migraine Migraines Morbid obesity Morbid obesity with BMI of 40.0-44.9, adult Obesity Obesity (BMI 30-39.9) PCOS (polycystic ovarian syndrome) Polyuria Rheumatoid arthritis Second trimester Smoker Vulvar cyst Surgical History History of esophagogastroduodenoscopy (EGD) History of removal of cyst History of tonsillectomy and adenoidectomy Family History Family History Father Medical history unknown Mother Diabetes Hypertension Maternal Aunt Breast cancer Ovarian cancer Mental health disorder Maternal Grandmother Diabetes Hypertension Social History Social History Household Members: Spouse and Children Housing: Condominium Alcohol intake: never Patient Tobacco Use Status: Former Tobacco user Tobacco use type: Cigarette Cigarettes Per Day: 3 e-Cigarette/Vaping Use: Never Used Second Hand Smoke Exposure: No Substance Use Type: Marijuana Advance Directives: No Advance Directives Information Provided: Yes service: No Current occupational status: disabled Sexual orientation: Straight/Heterosexual Gender identity: Female Cognitive needs: No Hearing needs: No Vision needs: Yes Physical Exam ED Vital Signs: Vital Signs - 24 hr 05/14/22 11:25 05/14/22 14:34 Temperature 97.4 F 97.5 F Pulse Rate 62 60 Respiratory Rate 18 16 Blood Pressure 177/84 H 176/102 H Pulse Oximetry 99 99 Oxygen Delivery Method Room Air Room Air BMI result Body Mass Index 41.9 Const General: cooperative, healthy appearing and no acute distress Orientation/consciousness: patient oriented x3 Limitations: no limitations HENMT Head: Yes normal to inspection and Yes atraumatic Ears: hearing grossly normal bilaterally General nose exam: Normal external nose present Face and sinus: Yes normal facial exam Eyes General: appearance normal, both eyes and all related structures EOM: EOMs intact bilaterally Neck Neck: Yes normal visual inspection and Yes no meningeal signs Resp Effort & Inspection: normal respiratory effort and no respiratory distress Auscultation: clear to auscultation bilaterally Cardio Rate: regular rate Heart sounds: S1 normal heart sound present and S2 normal heart sound present GI Inspection: Yes normal to inspection Palpation (GI): Soft to palpation, nontender, no guarding and not rigid General: Yes no CVA tenderness Back/Spine/Pelvis Back: no CVA tenderness Skin Rashes: no rashes Wounds: no wounds Neuro General: patient oriented x3, tone normal and no meningeal signs Gait exam (Neuro): Normal gait present Extrem General: Yes normal to inspection Medications Administered Discontinued Medications Generic Name Dose Route Start Last Admin Trade Name Freq PRN Reason Stop Dose Admin Acetaminophen 975 mg 05/14/22 14:42 05/14/22 14:49 Acetaminophen 325 Mg Tablet PO 05/14/22 14:43 975 mg ONCE ONE Administration Ondansetron HCl 4 mg 05/14/22 14:44 05/14/22 14:48 Ondansetron Odt 4 Mg Tab.Rapdis TRANSLINGU 05/14/22 14:45 4 mg ONCE ONE Administration Discharge Plan Discharge Prescriptions: No Action FreeStyle Lite Strips Strip 4 strip miscellaneous QID 30 Days Qty: 100 1RF ibuprofen [IBU] 800 mg tablet 800 mg PO Q8H PRN (Reason: pain/headaches) 30 Days Qty: 90 0RF Rx Instructions: Take with food lidocaine 5 % adhesive patch,medicated 1 patch topical DAILY Qty: 30 0RF Rx Instructions: leave on most painful area for up to 12 hrs labetalol 100 mg tablet 100 mg PO BID Qty: 180 1RF cyclobenzaprine 10 mg tablet 10 mg PO TID PRN (Reason: muscle spasm) Qty: 14 0RF naproxen 500 mg tablet 500 mg PO BID PRN (Reason: pain) Qty: 20 0RF ondansetron 4 mg tablet,disintegrating 4 mg PO Q8H PRN (Reason: nausea and vomiting) Qty: 10 0RF amlodipine [Norvasc] 5 mg tablet 5 mg PO DAILY Qty: 30 0RF gabapentin 400 mg capsule 400 mg PO TID 30 Days Qty: 90 3RF Rx Instructions: 1 capsule Orally Three times a day miscellaneous medical supply [facility] 1 ea miscellaneous DAILY 99 Days Qty: 2 0RF sertraline 100 mg tablet 100 mg PO DAILY ferrous sulfate [Feosol] 325 mg (65 mg iron) tablet 325 mg PO DAILY 30 Days Qty: 30 5RF hydroxyzine HCl 25 mg tablet See Rx Instructions .ROUTE .COMPLEX 30 Days Qty: 180 3RF Rx Instructions: 1 to 2 tablets 3 times a day as needed for anxiety; lidocaine 5 % adhesive patch,medicated 1 patch topical DAILY Qty: 15 0RF Rx Instructions: leave on most painful area for up to 12 hrs doxycycline hyclate 100 mg tablet 100 mg PO BID 5 Days Qty: 10 0RF (DME) lancets [FreeStyle Lancets] 28 gauge misc See Rx Instructions .ROUTE .MEDSUPPLY Qty: 100 1RF Rx Instructions: 4 times/day bupropion HCl 150 mg tablet extended release 24 hr 150 mg PO QAM Dexilant 60 mg capsule,biphase delayed releas 60 mg PO DAILY Qty: 30 6RF ibuprofen 600 mg tablet 600 mg PO Q6H PRN (Reason: pain) spironolactone 50 mg tablet 50 mg PO BID Qty: 60 5RF metoclopramide HCl [Reglan] 5 mg tablet 5 mg PO QIDACHS Qty: 120 6RF Linzess 145 mcg capsule 145 mcg PO QAM Qty: 30 6RF
[2022-05-14 16:03] LABS: Appearance Urine Turbid; Color Urine Yellow; Glucose Urine UA Negative (Negative); Leukocyte Esterase Urine Trace (Negative); Nitrite Urine Negative (Negative); PH >= 9.0 (5.0-9.0); UMIC TRIGGER UACC YES; Urine Blood Negative (Negative); Urine Ketones Negative (Negative); Urine Protein 30 (1+) mg/dL (Neg-Trace)
[2022-05-14 16:05] LABS: UPreg QC Valid YES; Urine Pregnancy NEGATIVE (NEGATIVE)
[2022-05-14 16:08] LABS: Bacteria Urine Trace (None Seen); Hyaline Casts Urine 0-2 /LPF (0-2); RBC Urine 0-2 /HPF (0-2); Squamous Epithelial Cell Urine 0-2 /HPF (0-2); WBC Urine 0-5 /HPF (0-5)
[2022-05-14 17:59] LABS: MANUAL DIFF FLAG NO
[2022-05-14 18:10] VITALS: BP 148/85; PULSE 62; RESP 19; TEMP 37.2; O2SAT 100
[2022-05-14 18:21] LABS: Lipase 19 U/L (8-78)
[2022-05-14 18:25] LABS: Alanine Aminotransferase 13 U/L (0-31); Alkaline Phosphatase 86 U/L (39-117); Anion Gap 11 (12-20); Aspartate Amino Transferase 13 U/L (5-31); Bilirubin Total 0.4 mg/dL (0.0-1.0); Blood Urea Nitrogen 9 mg/dL (9-16); Calcium 9.5 mg/dL (8.4-10.2); Carbon Dioxide 26 mmol/L (22-29); Chloride 107 mmol/L (96-108); Creatinine Clr Calc Pharmacy 131.2; Estimated Glomerular Filt Rate > 60; Glucose Random 91 mg/dL (60-115); Magnesium 2.1 mg/dL (1.6-2.6); Potassium 4.3 mmol/L (3.3-5.1); Sodium 140 mmol/L (135-145); Total Protein 7.1 g/dL (6.5-8.0)
[2022-05-14 18:30] LABS: Basophils Percent Auto 0.5 % (0-2); Eosinophils Absolute Auto 0.1 X10*3/uL (0.0-0.4); Eosinophils Percent Auto 1.5 % (0-4); Hematocrit 33.4 % (37.0-47.0); Hemoglobin 10.6 g/dl (12.0-16.0); Imm Gran Abs Auto 0.03 X10*3/uL (0.00-0.03); Imm Gran Pct Auto 0.4 % (0.0-0.4); Lymphocytes Absolute Auto 2.8 X10*3/uL (1.2-4.9); Lymphocytes Percent Auto 35.8 % (20-40); Mean Corpuscular HGB Conc 31.7 g/dl (31.0-35.0); Mean Corpuscular Hemoglobin 25.9 pg (27.0-33.0); Mean Corpuscular Volume 81.7 fL (80.0-98.0); Mean Platelet Volume 10.8 fL (9.4-12.3); Monocytes Absolute Auto 0.9 X10*3/uL (0.1-1.2); Monocytes Percent Auto 11.4 % (2-11); Neutrophils Absolute Auto 3.9 x10*3/uL (2.0-8.3); Neutrophils Percent Auto 50.4 % (45-73); Platelet Count 309 X10*3/uL (160-400); Red Blood Count 4.09 X10*6/uL (4.20-5.50); Red Cell Distribution Width 14.6 % (11.0-16.0); White Blood Count 7.8 X10*3/uL (4.8-10.8)
[2022-05-14 18:33] LABS: Troponin-I High Sensitivity < 3.5 ng/L (<3.5-17.0)
[2022-05-14] MEDS: amLODIPine Besylate 5 MG TABLET PO (18:40)
[2022-05-14 19:04] LABS: Glucose, Whole Blood 88 mg/dL (60-115)
== END 2022-05-14 19:18 | disposition home or self-care (01) ==
PROVIDERS: Physician Assistant; Emergency Provider Internal Medicine; PCP Internal Medicine
DX: I10 Essential (primary) hypertension (principal); R07.9 Chest pain, unspecified; R51.9 Headache, unspecified; F12.90 Cannabis use, unspecified, uncomplicated; Z87.891 Personal history of nicotine dependence
CPT/HCPCS: 36415; 70450; 71045; 80053; 81001; 81003; 81025; 82947; 83690; 83735; 84484; 85025; 93005; 99284

== ENCOUNTER → 2022-05-22 09:46 | Outpatient (REF) | payer OTHER, SELFPAY ==
--- NOTE | 2022-05-22 09:50 | CA_ITS ---
Acquisition Time: 2022-05-22 10:00:31 Total Exercise Time: 00:02:13 Test Indications: CP HTN Medications: SPIRONALACTONE LABETALOL SERTRALINE BUPROPION LINZESS GABAPENTIN DEXILANT IRON CYCLOBENZAPRINE Protocol: DARIAN Max HR: 125 BPM 66% of Pred: 188 BPM Max BP: 164/084 mmHG Max Work Load: 4.6 METS Exercise stress test with exercise 2 min 13 sec of Darian protocol, achieving 66% MPHR, with request to stop due to dizziness, no shortness of breath or chest discomfort, without arrythmia, with normotensive response to exercise, with nondiagnostic EKG for ischemia due to suboptimal heart rate and exercise time In recovery her dizziness improved. Test reviewed with Dr Connor Referred By: Mackenzie Ryan Overread By: YANG ZARAGOZA
== END ==
LOC: HO.CARD 09:46
PROVIDERS: PCP Internal Medicine; Visit Provider Nurse Practitioner Family
DX: R07.89 Other chest pain (principal)
CPT/HCPCS: 93017

== ENCOUNTER → 2022-06-20 09:01 | Outpatient (REF) | payer OTHER, SELFPAY ==
--- NOTE | ~2022-06-20 | NM_ITS ---
Lexiscan Myocardial perfusion study Indication: Chest pain, assess for coronary disease and ischemia Technique: The patient was brought in for a Lexiscan perfusion study on 06/20/2022 and was injected 0.4 mg of Lexiscan intravenously. Within a minute of this injection 35 mCi of sestamibi was given intravenously. Images were obtained using the SPECT gamma camera interlaced with the gating device. Images were obtained in supine position. Resting perfusion study was performed on 06/22/2022. Patient was administered 35 mCi of sestamibi intravenously at rest. Images were then obtained in supine position. Images were processed with the software and compared side to side in short axis, horizontal long axis and vertical long axis views. Total DLP 127mGy-cm. Findings: Raw acquisition reviewed. The stress perfusion study showed no significant perfusion abnormality. Both uncorrected as well as CT attenuation corrected images were reviewed. The gated study shows normal LV systolic function with calculated LVEF of 61%. LV cavity is normal in size. The gated study shows normal wall thickening and contraction of segments. Resting study shows no significant perfusion abnormality. Gating at rest reveals normal wall motion. LVEF during gating not reliable. Visually appears normal. The findings are consistent with no clear reversible or fixed perfusion defects. NM/NM shilpa perf SPECT rest & str Impression: 1. Myocardial perfusion imaging study shows likely normal myocardial perfusion. 2. Gated LVEF is 61% during stress. Resting LVEF also appears normal. 3. Transient ischemic dilatation not present EKG component of the test reported separately.
--- NOTE | 2022-06-20 09:06 | CA_ITS ---
Acquisition Time: 2022-06-20 09:23:35 Total Exercise Time: 00:02:00 Test Indications: CHEST PAIN ,UNSPECIFIED Medications: Protocol: LEXISCAN Max HR: 123 BPM 65% of Pred: 188 BPM Max BP: 136/074 mmHG Max Work Load: 1.0 METS Pharmacological stress test with Lexiscan injection, while sitting and kicking her legs, with report of sob and dizziness post injection, with report of 7/10 chest discomfort at baseline which remained unchanged during test, without arrythmia, with normotensive response to injection, with nondiagnostic EKG for ischemia. T wave inversions noted post injection without ST depression. In recovery she was treated with Aminophylline 75mg IVP to reverse Lexiscan with resolution of her dizziness. Nuclear images pending. Test reviewed with Dr Tai Referred By: Mackenzie Ryan Overread By: YANG ZARAGOZA
== END ==
LOC: HO.CARD 09:01
PROVIDERS: PCP Internal Medicine; Visit Provider Nurse Practitioner Family
DX: R07.9 Chest pain, unspecified (principal)
CPT/HCPCS: 78452; 93017; A9500; J2785

== ENCOUNTER 2022-07-07 16:07 | Emergency (ER) | payer OTHER, SELFPAY ==
--- NOTE | 2022-07-07 16:45 | ED_ITS ---
HPI - Female Genitourinary General Chief complaint: Urogenital-Female <Guera Luong CNP - Last Filed: 07/07/22 16:50> Stated complaint: ? Uti <Guera Luong CNP - Last Filed: 07/07/22 16:50> Time Seen by Provider: 07/07/22 18:24 <Guera Luong CNP - Last Filed: 07/07/22 16:50> Source: patient <DUSTY Saavedra - Last Filed: 07/07/22 19:01> Mode of arrival: ambulatory <DUSTY Saavedra - Last Filed: 07/07/22 19:01> Limitations: no limitations <DUSTY Saavedra - Last Filed: 07/07/22 19:01> History of Present Illness HPI Narrative: This is a 31-year-old female presenting to the emergency department with complaints of urinary frequency, urgency, incomplete emptying, dysuria, bilateral flank pain times a few days worsening. Patient tells me that this feels like her typical UTI she tells me the last time she had 1 was about a year ago . Patient denies fevers, chills, hematuria, nausea, vomiting, abdominal pain, headache, vision changes, dizziness, weakness. Patient well- appearing. Eating and drinking at home without difficulties. <DUSTY Saavedra - Last Filed: 07/07/22 19:01> Related Data Home medications: Home Medications Medication Instructions Recorded Confirmed sertraline 100 mg tablet 100 mg PO DAILY 08/22/20 05/08/22 bupropion HCl 150 mg 24 hr tablet, 150 mg PO QAM 05/03/21 05/08/22 extended release ibuprofen 600 mg tablet 600 mg PO Q6H PRN pain 01/05/22 05/08/22 Previous Rx's Medication Instructions Recorded lancets 28 gauge (FreeStyle #100 ea 06/27/20 Lancets) FreeStyle Lite Strips (blood sugar 4 strip miscellaneous QID 30 days 07/20/20 diagnostic) #100 strips miscellaneous medical supply 1 ea miscellaneous DAILY 99 days 01/03/21 #2 ea dexlansoprazole 60 mg 60 mg PO DAILY #30 caps 05/19/21 capsule,biphase delayed release (Dexilant) linaclotide 145 mcg capsule 145 mcg PO QAM #30 caps 08/17/21 (Linzess) metoclopramide HCl 5 mg tablet 5 mg PO QIDACHS #120 tabs 08/17/21 (Reglan) ibuprofen 800 mg tablet (IBU) 800 mg PO Q8H PRN pain/headaches 08/24/21 30 days #90 tabs lidocaine 5 % topical patch 1 patch topical DAILY #30 ea 11/24/21 spironolactone 50 mg tablet 50 mg PO BID #60 tabs 01/05/22 ferrous sulfate 325 mg (65 mg 325 mg PO DAILY 30 days #30 tabs 04/04/22 iron) tablet (Feosol) hydroxyzine HCl 25 mg tablet See Rx Instructions .Route 04/04/22 .COMPLEX anxiety 30 days #180 tabs cyclobenzaprine 10 mg tablet 10 mg PO TID PRN muscle spasm #14 05/04/22 tabs naproxen 500 mg tablet 500 mg PO BID PRN pain #20 tabs 05/04/22 ondansetron 4 mg disintegrating 4 mg PO Q8H PRN nausea and 05/04/22 tablet vomiting #10 tabs doxycycline hyclate 100 mg tablet 100 mg PO BID 5 days #10 tabs 05/08/22 lidocaine 5 % topical patch 1 patch topical DAILY #15 ea 05/08/22 amlodipine 5 mg tablet (Norvasc) 5 mg PO DAILY #30 tabs 05/13/22 BEDSIDE COMMODE #1 ea 05/14/22 FRONT-WHEELED WALKER #1 ea 05/14/22 TUB SEAT with BACK #1 ea 05/14/22 gabapentin 400 mg capsule 400 mg PO TID 30 days #90 caps 06/21/22 labetalol 100 mg tablet 100 mg PO BID #180 tabs 06/21/22 nitrofurantoin 100 mg PO BID 5 days #10 caps 07/07/22 monohydrate/macrocrystals 100 mg capsule (Macrobid) phenazopyridine 100 mg tablet 200 mg PO TID 2 days #6 tabs 07/07/22 (Pyridium) <Guera Luong, ANESTHESIOLOGISTS' ASSISTANT - Last Filed: 07/07/22 16:50> Allergies/Adverse reactions: Allergies Allergy/AdvReac Type Severity Reaction Status Date / Time amoxicillin [AMOXICILLIN] Allergy Intermediate NAUSEA & Verified 05/08/22 09:08 VOMITING, stomach pain, vomiting, stomach upset topiramate [From TOPAMAX] Allergy Intermediate TREMORS, Verified 05/08/22 09:08 nausea and vomiting latex [LATEX] Allergy Mild RASH Verified 05/08/22 09:08 medroxyprogesterone Allergy Mild RASH Verified 05/08/22 09:08 [From PROVERA] lactose Allergy bloating , Verified 05/08/22 09:08 diarrhea <Guera Luong CNP - Last Filed: 07/07/22 16:50> Review of Systems Review of Systems: Constitutional : No Weight loss, No Fever, No Chills, No Fatigue, No Malaise ENT/Mouth : No sore throat, No Rhinorrhea Eyes: No Eye Pain, No Swelling, No Redness Cardiovascular : No Chest Pain, No SOB, No Dyspnea on Exertion, No Orthopnea, No Edema, No Palpitations Respiratory : No Cough, No Sputum, No Wheezing Gastrointestinal : No Nausea, No Vomiting, No Diarrhea, No Constipation, No abdominal Pain, No Hematochezia, No Melena Genitourinary : + Dysuria, + Urinary Frequency, No Hematuria, Musculoskeletal : No joint pain, No Myalgias, No Joint Swelling, + flank pain Skin : No Skin Lesions, No rash Neuro : No Weakness, No Numbness, No Dizziness, No Headache Psych : No Anxiety/Panic, No Depression All other systems reviewed and are negative <DUSTY Saavedra - Last Filed: 07/07/22 19:01> Yes all other systems are reviewed and are negative <DUSTY Saavedra - Last Filed: 07/07/22 19:01> [facility] Past Medical History Attestation statement: The following information was validated with the patient. <DUSTY Ellis - Last Filed: 07/07/22 19:01> Source: old records reviewed and nursing notes reviewed <DUSTY Saavedra - Last Filed: 07/07/22 19:01> Medical History: Medical History Anxiety Arthritis Carpal tunnel syndrome, bilateral Depression Depression Fibromyalgia Hyperlipemia Hypertension Insomnia Lower back pain Migraine Migraines Morbid obesity Morbid obesity with BMI of 40.0-44.9, adult Obesity Obesity (BMI 30-39.9) PCOS (polycystic ovarian syndrome) Polyuria Rheumatoid arthritis Second trimester Smoker Vulvar cyst <Guera Luong CNP - Last Filed: 07/07/22 16:50> Surgical History: Surgical History History of esophagogastroduodenoscopy (EGD) History of removal of cyst History of tonsillectomy and adenoidectomy <Guera Luong CNP - Last Filed: 07/07/22 16:50> Family History Family History: Family History Father Medical history unknown Mother Diabetes Hypertension Maternal Aunt Breast cancer Ovarian cancer Mental health disorder Maternal Grandmother Diabetes Hypertension <Guera Luong CNP - Last Filed: 07/07/22 16:50> Social History Social History: Social History Household Members: Spouse and Children Housing: Condominium Alcohol intake: never Patient Tobacco Use Status: Former Tobacco user Tobacco use type: Cigarette Cigarettes Per Day: 3 e-Cigarette/Vaping Use: Never Used Second Hand Smoke Exposure: No Substance Use Type: Marijuana Advance Directives: No Advance Directives Information Provided: Yes service: No Current occupational status: disabled Sexual orientation: Straight/Heterosexual Gender identity: Female Cognitive needs: No Hearing needs: No Vision needs: Yes <Guera Luong CNP - Last Filed: 07/07/22 16:50> Physical Exam Vital Signs: Vital Signs: Last Vital Signs Temp 98.4 F 07/07/22 16:46 Pulse 69 07/07/22 16:46 Resp 18 07/07/22 16:46 BP 158/75 H 07/07/22 16:46 Pulse Ox 98 07/07/22 16:46 O2 Del Method 07/07/22 16:46 BMI result Body Mass Index 41.9 <Guera Luong CNP - Last Filed: 07/07/22 16:50> Vital Signs: Last Vital Signs Temp 98.4 F 07/07/22 16:46 Pulse 69 07/07/22 16:46 Resp 18 07/07/22 16:46 BP 158/75 H 07/07/22 16:46 Pulse Ox 98 07/07/22 16:46 O2 Del Method 07/07/22 16:46 BMI result Body Mass Index 41.9 vss <DUSTY Saavedra - Last Filed: 07/07/22 19:01> Appearance: Alert.? Oriented X3.? No acute distress.? Head: Normocephalic, atraumatic, no step-offs or deformities Eyes: Pupils equal, round and reactive to light.? CVS: Normal heart rate and rhythm.? Pulses normal.? Respiratory: No respiratory distress.? Breath sounds normal.? Abdomen: Soft and nontender.? Skin: Skin warm and dry.? Normal skin color.? Normal skin turgor.? Extremities: No lower extremity edema.? No calf ttp. 5/5 strength to bilateral upper and lower extremities Back: No midline tenderness, no C-spine tenderness, full range of motion, no CVA tenderness bilaterally Neuro: Oriented X 3.? No motor deficit.? No sensory deficit. CN 2-12 intact <DUSTY Saavedra - Last Filed: 07/07/22 19:01> Course Course Course Narrative: This is an RME: Additional HPI, ROS, PE not included below will be deferred to primary provider. Patient is a 31-year-old female who presents to emergency department for evaluation of concern for UTI. She contacted her primary care provider who advised urgent care but she states they were all closed. She is having incomplete voiding sensation, urinary frequency/urgency, dysuria. Has associated lower back pain. Denies fevers, chills, nausea, vomiting. LMP 06/07/2022, denies possibility of . Reports UTI 1 year ago when post . Plan: urinalysis, urine . <Guera Luong CNP - Last Filed: 07/07/22 16:50> Reevaluation(s) Reevaluation #1: UA with infection. Will send her home with Macrobid and Pyridium. Urine negative. Educated patient on diagnosis and treatment plan, answered all question, patient verbalizes understanding. At this time patient will be discharged home, advised to return with new or worsening symptoms. Educated on worrisome signs and symptoms and when to return. At this time I feel comfortable discharge home. <DUSTY Saavedra - Last Filed: 07/07/22 19:01> Time: 18:47 <DUSTY Saavedra - Last Filed: 07/07/22 19:01> Medical Decision Making Medical Decision Making [facility] Narrative: 1846 31-year-old female concerns of urinary frequency urgency, dysuria incomplete em ptying and bilateral flank pain times a few days worsening. Physical examination benign. No CVA tenderness. Patient well appearing. Vital signs stable. Plan at this time is UA. Likely UTI versus cystitis. Unlikely pyelonephritis, kidney stone, obstructing uropathy <DUSTY Saavedra - Last Filed: 07/07/22 19:01> Differential Diagnosis Differential Diagnoses: The differential diagnosis associated with the presentation includes <DUSTY Saavedra - Last Filed: 07/07/22 19:01> Likely UTI versus cystitis. Unlikely pyelonephritis, kidney stone, obstructing uropathy <DUSTY Saavedra - Last Filed: 07/07/22 19:01> Admission/Observation Consideration of admission/observation: Escalation of care including admission/observation considered <DUSTY Saavedra - Last Filed: 07/07/22 19:01> Unlikely <DUSTY Saavedra - Last Filed: 07/07/22 19:01> Lab Data MDM Lab Attestation statement: I reviewed the patient's lab results. <DUSTY Saavedra - Last Filed: 07/07/22 19:01> Labs: Lab Results 07/07/22 07/07/22 Range/Units 16:12 16:54 Urine Color Yellow Urine Appearance Turbid Urine pH 5.5 (5.0-9.0) Ur Specific [place] 1.025 (1.005-1.025) Urine Protein 100 (2+) H (Neg-Trace) mg/dL Urine Glucose (UA) Negative (Negative) mg/dL Urine Ketones Trace (Negative) mg/dL Urine Blood Large (3+) H (Negative) Urine Nitrite Negative (Negative) Ur Leukocyte Esterase Moderate (2+) H (Negative) Urine RBC >20 H (0-2) /HPF Urine WBC >50 H (0-5) /HPF Ur Squamous Epith Cells >20 (0-2) /HPF Urine Bacteria 1+ (None Seen) Hyaline Casts 0-2 (0-2) /LPF Urine Test NEGATIVE (NEGATIVE) <Guera Luong CNP - Last Filed: 07/07/22 16:50> Lab Results 07/07/22 07/07/22 Range/Units 16:12 16:54 Urine Color Yellow Urine Appearance Turbid Urine pH 5.5 (5.0-9.0) Ur Specific [place] 1.025 (1.005-1.025) Urine Protein 100 (2+) H (Neg-Trace) mg/dL Urine Glucose (UA) Negative (Negative) mg/dL Urine Ketones Trace (Negative) mg/dL Urine Blood Large (3+) H (Negative) Urine Nitrite Negative (Negative) Ur Leukocyte Esterase Moderate (2+) H (Negative) Urine RBC >20 H (0-2) /HPF Urine WBC >50 H (0-5) /HPF Ur Squamous Epith Cells >20 (0-2) /HPF Urine Bacteria 1+ (None Seen) Hyaline Casts 0-2 (0-2) /LPF Urine Test NEGATIVE (NEGATIVE) <DUSTY Saavedra - Last Filed: 07/07/22 19:01> Radiology Impression Discussion of test interpretation with radiology: I have reviewed the radiologist's reading. <DUSTY Saavedra - Last Filed: 07/07/22 19:01> Core Measures AMI core measures followed: Yes <DUSTY Saavedra - Last Filed: 07/07/22 19:01> Measure exclusions: not indicated <DUSTY Saavedra - Last Filed: 07/07/22 19:01> Critical Care Time Critical Care Time Critical Care Time: No <DUSTY Saavedra - Last Filed: 07/07/22 19:01> Discharge Plan Discharge Clinical Impression: Urinary tract infection <Guera Luong CNP - Last Filed: 07/07/22 16:50> Patient Disposition: Home, Self-Care <Guera Luong CNP - Last Filed: 07/07/22 16:50> Instructions: Urinary Tract Infection in Women (ED) <Guera Luong CNP - Last Filed: 07/07/22 16:50> Additional Instructions: Take your medications as prescribed. If you were prescribed antibiotics today, it is important that you take your medication to their entirety, do not skip any doses, do not finish them early. Follow-up with your primary care provider this week. Return to the emergency department with new or worsening symptoms. Such as fevers, chills, chest pain, shortness of breath, nausea, vomiting, dizziness, headache, vision changes, lethargy In case of emergency call 911 Pyridium is medication that can make your urine neon orange, this is normal. <Guera Luong CNP - Last Filed: 07/07/22 16:50> Prescriptions: New phenazopyridine [Pyridium] 100 mg tablet 200 mg PO TID 2 Days Qty: 6 0RF nitrofurantoin monohyd/m-cryst [Macrobid] 100 mg capsule 100 mg PO BID 5 Days Qty: 10 0RF Rx Instructions: must administer with a meal/food No Action FreeStyle Lite Strips Strip 4 strip miscellaneous QID 30 Days Qty: 100 1RF ibuprofen [IBU] 800 mg tablet 800 mg PO Q8H PRN (Reason: pain/headaches) 30 Days Qty: 90 0RF Rx Instructions: Take with food lidocaine 5 % adhesive patch,medicated 1 patch topical DAILY Qty: 30 0RF Rx Instructions: leave on most painful area for up to 12 hrs (DME) FRONT-WHEELED WALKER See Rx Instructions .Route .MEDSUPPLY Qty: 1 0RF Rx Instructions: As directed (DME) TUB SEAT with BACK See Rx Instructions .Route .MEDSUPPLY Qty: 1 0RF Rx Instructions: As directed (DME) BEDSIDE COMMODE See Rx Instructions .Route .MEDSUPPLY Qty: 1 0RF Rx Instructions: As directed gabapentin 400 mg capsule 400 mg PO TID 30 Days Qty: 90 3RF Rx Instructions: 1 capsule Orally Three times a day labetalol 100 mg tablet 100 mg PO BID Qty: 180 1RF cyclobenzaprine 10 mg tablet 10 mg PO TID PRN (Reason: muscle spasm) Qty: 14 0RF naproxen 500 mg tablet 500 mg PO BID PRN (Reason: pain) Qty: 20 0RF ondansetron 4 mg tablet,disintegrating 4 mg PO Q8H PRN (Reason: nausea and vomiting) Qty: 10 0RF amlodipine [Norvasc] 5 mg tablet 5 mg PO DAILY Qty: 30 0RF [facility] miscellaneous DAILY 99 Days Qty: 2 0RF sertraline 100 mg tablet 100 mg PO DAILY ferrous sulfate [Feosol] 325 mg (65 mg iron) tablet 325 mg PO DAILY 30 Days Qty: 30 5RF hydroxyzine HCl 25 mg tablet See Rx Instructions .ROUTE .COMPLEX 30 Days Qty: 180 3RF Rx Instructions: 1 to 2 tablets 3 times a day as needed for anxiety; lidocaine 5 % adhesive patch,medicated 1 patch topical DAILY Qty: 15 0RF Rx Instructions: leave on most painful area for up to 12 hrs doxycycline hyclate 100 mg tablet 100 mg PO BID 5 Days Qty: 10 0RF (DME) lancets [FreeStyle Lancets] [facility] See Rx Instructions .ROUTE .MEDSUPPLY Qty: 100 1RF Rx Instructions: 4 times/day bupropion HCl 150 mg tablet extended release 24 hr 150 mg PO QAM Dexilant 60 mg capsule,biphase delayed releas 60 mg PO DAILY Qty: 30 6RF ibuprofen 600 mg tablet 600 mg PO Q6H PRN (Reason: pain) spironolactone 50 mg tablet 50 mg PO BID Qty: 60 5RF metoclopramide HCl [Reglan] 5 mg tablet 5 mg PO QIDACHS Qty: 120 6RF Linzess 145 mcg capsule 145 mcg PO QAM Qty: 30 6RF <Guera Luong CNP - Last Filed: 07/07/22 16:50> Referrals: Jarrod Sherman MD [Primary Care Provider] - 2 days <Guera Luong CNP - Last Filed: 07/07/22 16:50> Stand Alone Forms: Work/School Release <Guera Luong CNP - Last Filed: 07/07/22 16:50>
[2022-07-07 16:46] VITALS: BP 158/75; PULSE 69; RESP 18; TEMP 36.9; O2SAT 98; BMI 41.9
[2022-07-07 17:12] LABS: Appearance Urine Turbid; Color Urine Yellow; Glucose Urine UA Negative (Negative); Leukocyte Esterase Urine Moderate (2+) (Negative); Nitrite Urine Negative (Negative); PH 5.5 (5.0-9.0); Specific Gravity - Urine 1.025 (1.005-1.025); UMIC TRIGGER UACC YES; Urine Blood Large (3+) (Negative); Urine Ketones Trace mg/dL (Negative); Urine Protein 100 (2+) mg/dL (Neg-Trace)
[2022-07-07 17:17] LABS: Bacteria Urine 1+ (None Seen); Hyaline Casts Urine 0-2 /LPF (0-2); RBC Urine >20 /HPF (0-2); Squamous Epithelial Cell Urine >20 /HPF (0-2); UACC Culture Trigger YES; WBC Urine >50 /HPF (0-5)
[2022-07-07 17:34] LABS: UPreg QC Valid YES; Urine Pregnancy NEGATIVE (NEGATIVE)
== END 2022-07-07 19:33 | disposition home or self-care (01) ==
PROVIDERS: Nurse Practitioner Family; Emergency Provider Internal Medicine; PCP Internal Medicine
DX: N39.0 Urinary tract infection, site not specified (principal); I10 Essential (primary) hypertension; E78.5 Hyperlipidemia, unspecified; F12.90 Cannabis use, unspecified, uncomplicated; E66.9 Obesity, unspecified; Z68.41 Body mass index [BMI] 40.0-44.9, adult; Z87.891 Personal history of nicotine dependence; Z79.899 Other long term (current) drug therapy
CPT/HCPCS: 81001; 81025; 87086; 99283

== ENCOUNTER → 2022-09-19 10:39 | Outpatient (BNVA) | payer OTHER, SELFPAY | PROVIDERS: PCP Internal Medicine; Visit Provider Nurse Practitioner | DX: K59.04 Chronic idiopathic constipation (principal); K30 Functional dyspepsia; K21.9 Gastro-esophageal reflux disease without esophagitis; R10.11 Right upper quadrant pain; M54.6 Pain in thoracic spine | CPT/HCPCS: 99212 ==

== ENCOUNTER 2022-09-30 22:26 | Emergency (ER) | payer OTHER, SELFPAY ==
--- NOTE | ~2022-09-30 | CT_ITS ---
EXAMINATION: CT ABDOMEN AND PELVIS WITHOUT CONTRAST CLINICAL INFORMATION: Question obstructive uropathy COMPARISON: 06/27/2017 TECHNIQUE: Multidetector volumetric imaging was performed from the superior aspect of the liver through the pubic symphysis. Sagittal and coronal reformatted images were obtained on the technologist's workstation. This CT examination was performed using dose optimization techniques as appropriate, variously including the following: *Automated exposure control *Adjustment of mA and/or kV according to patient size (this includes techniques or standardized protocols for targeted exams where dose is matched to indication/reason for exam; i.e. extremities or head) *Use of iterative reconstruction technique DLP: 745 mGy-cm FINDINGS: LUNG BASES: The visualized lung bases are unremarkable. LIVER, GALLBLADDER, AND BILIARY TREE: The liver is normal in size, shape, and attenuation. No focal hepatic lesion or biliary ductal dilatation is identified. The gallbladder is unremarkable with no evidence of radiopaque gallstones, gallbladder wall thickening, or obvious pericholecystic inflammatory changes. PANCREAS: Unremarkable. SPLEEN: Unremarkable. ADRENAL GLANDS: Unremarkable. KIDNEYS AND URETERS: There is moderate to severe right hydroureteronephrosis suspected to be due to a distal ureteral calculus measuring 3 mm; of note, evaluation of the distal ureter is limited due to streak artifact from adjacent right hip arthroplasty hardware. No left hydronephrosis. There are several scattered bilateral renal calculi measuring up to 4 mm. BLADDER: Minimally distended and not adequately evaluated. GASTROINTESTINAL TRACT: No evidence of bowel obstruction or significant wall thickening. The appendix is unremarkable. No free air is seen. ABDOMINAL WALL: No significant hernia is appreciated. LYMPH NODES: No significant lymphadenopathy is seen, though assessment is limited in the absence of intravenous contrast. VASCULAR: Unremarkable. PELVIC VISCERA: Unremarkable. There is suggestion trace pelvic free fluid. OSSEOUS STRUCTURES: Status post right total hip arthroplasty. There is facet arthropathy of the lower lumbar spine. CT/CT abdomen pelvis wo IV con IMPRESSION: 1. Moderate to severe right hydroureteronephrosis suspected to be due to a distal ureteral calculus measuring 3 mm. 2. Several scattered bilateral renal calculi. 3. Suggestion of trace pelvic free fluid, which may be physiologic.
--- NOTE | ~2022-09-30 | FL_ITS ---
EXAMINATION: XR FLUOROSCOPY WITH IMAGES CLINICAL INFORMATION: Cystoscopy. COMPARISON: CT scan of 10/01/2022. TECHNIQUE: Fluoroscopy Supervised By: Dr. Jayson Rausch. Fluoroscopy Time: 37.2 seconds. Cumulative Dose: 17.20 mGy. Images: 2. FINDINGS: 2 images demonstrate right ureteral stent in place. Patient status post right hip arthroplasty. FL/FL guidance in OR IMPRESSION: Intraoperative fluoroscopy for urological procedure.
[2022-09-30 23:38] VITALS: BP 187/78; PULSE 80; RESP 22; TEMP 36.8; O2SAT 99; BMI 41.3
--- NOTE | 2022-09-30 23:42 | ED.FEMALEGU ---
HPI - Female Genitourinary General Chief complaint: Urogenital-Female <Chilango Torres - Last Filed: 10/01/22 02:16> Stated complaint: Possible UTI <Chilango Torres - Last Filed: 10/01/22 02:16> Time Seen by Provider: 09/30/22 23:39 <Chilango Torres - Last Filed: 10/01/22 02:16> Source: patient, RN notes reviewed and old records reviewed <Chilango Torres - Last Filed: 10/01/22 02:16> Mode of arrival: ambulatory <Chilango Torres - Last Filed: 10/01/22 02:16> History of Present Illness HPI Narrative: 31-year-old female past medical history significant for obesity, hypertension, anxiety, anemia, bipolar disorder, ADHD, chronic constipation, presents for evaluation of abdominal pain. Patient reports bilateral flank pain that started today. The pain radiates down to her lower abdomen in the center She reports that she has had burning with urination and now feels the urge to urinate but cannot Denies any history abdominal surgeries She reports a recent hip replacement surgery Reports chills earlier but is afebrile on arrival Denies any concern for sexually transmitted infections <Chilango Torres - Last Filed: 10/01/22 02:16> Related Data Home medications: Home Medications Medication Instructions Recorded Confirmed sertraline 100 mg tablet 100 mg PO DAILY 08/22/20 05/08/22 bupropion HCl 150 mg 24 hr tablet, 150 mg PO QAM 05/03/21 05/08/22 extended release Previous Rx's Medication Instructions Recorded lancets 28 gauge (FreeStyle #100 ea 06/27/20 Lancets) FreeStyle Lite Strips (blood sugar 4 strip miscellaneous QID 30 days 07/20/20 diagnostic) #100 strips miscellaneous medical supply 1 ea miscellaneous DAILY 99 days 01/03/21 #2 ea ibuprofen 800 mg tablet (IBU) 800 mg PO Q8H PRN pain/headaches 08/24/21 30 days #90 tabs spironolactone 50 mg tablet 50 mg PO BID #60 tabs 01/05/22 ferrous sulfate 325 mg (65 mg 325 mg PO DAILY 30 days #30 tabs 04/04/22 iron) tablet (Feosol) hydroxyzine HCl 25 mg tablet See Rx Instructions .Route 04/04/22 .COMPLEX anxiety 30 days #180 tabs cyclobenzaprine 10 mg tablet 10 mg PO TID PRN muscle spasm #14 05/04/22 tabs naproxen 500 mg tablet 500 mg PO BID PRN pain #20 tabs 05/04/22 ondansetron 4 mg disintegrating 4 mg PO Q8H PRN nausea and 05/04/22 tablet vomiting #10 tabs doxycycline hyclate 100 mg tablet 100 mg PO BID 5 days #10 tabs 05/08/22 lidocaine 5 % topical patch 1 patch topical DAILY #15 ea 05/08/22 amlodipine 5 mg tablet (Norvasc) 5 mg PO DAILY #30 tabs 05/13/22 BEDSIDE COMMODE #1 ea 05/14/22 FRONT-WHEELED WALKER #1 ea 05/14/22 TUB SEAT with BACK #1 ea 05/14/22 gabapentin 400 mg capsule 400 mg PO TID 30 days #90 caps 06/21/22 labetalol 100 mg tablet 100 mg PO BID #180 tabs 06/21/22 dexlansoprazole 60 mg 60 mg PO DAILY #30 caps 09/19/22 capsule,biphase delayed release (Dexilant) linaclotide 145 mcg capsule 145 mcg PO QAM #30 caps 09/19/22 (Linzess) metoclopramide HCl 5 mg tablet 5 mg PO QIDACHS #120 tabs 09/19/22 (Reglan) <Chilango Torres - Last Filed: 10/01/22 02:16> Allergies/Adverse reactions: Allergies Allergy/AdvReac Type Severity Reaction Status Date / Time amoxicillin [AMOXICILLIN] Allergy Intermediate NAUSEA & Verified 09/30/22 23:38 VOMITING, stomach pain, vomiting, stomach upset topiramate [From TOPAMAX] Allergy Intermediate TREMORS, Verified 09/30/22 23:38 nausea and vomiting latex [LATEX] Allergy Mild RASH Verified 09/30/22 23:38 medroxyprogesterone Allergy Mild RASH Verified 09/30/22 23:38 [From PROVERA] lactose Allergy bloating , Verified 09/30/22 23:38 diarrhea <Chilango Torres - Last Filed: 10/01/22 02:16> Review of Systems Constitutional: Constitutional: Reports as per HPI, Denies chills, Denies fatigue, Denies fever(s) and Denies headache(s) <Chilango O Last Filed: 10/01/22 02:16> ENT: Denies headache(s) <Chilango Last Filed: 10/01/22 02:16> Cardiovascular: Cardiovascular: Denies chest pain and Denies dyspnea < Last Filed: 10/01/22 02:16> Respiratory: Respiratory: Denies cough and Denies dyspnea <Chilango Last Filed: 10/01/22 02:16> Gastrointestinal: Gastrointestinal: Reports abdominal pain, Denies constipation and Reports vomiting < Last Filed: 10/01/22 02:16> Neurologic: Denies headache(s) and Denies focal weakness <Chilnago Last Filed: 10/01/22 02:16> Endocrine: Endocrine: Denies fatigue <Chilango Last Filed: 10/01/22 02:16> [facility] Past Medical History Medical History: Medical History Anxiety Arthritis Carpal tunnel syndrome, bilateral Depression Depression Fibromyalgia Hyperlipemia Hypertension Insomnia Lower back pain Migraine Migraines Morbid obesity Morbid obesity with BMI of 40.0-44.9, adult Obesity Obesity (BMI 30-39.9) PCOS (polycystic ovarian syndrome) Polyuria Rheumatoid arthritis Second trimester Smoker Vulvar cyst <Chilango Last Filed: 10/01/22 02:16> Surgical History: Surgical History History of esophagogastroduodenoscopy (EGD) History of removal of cyst History of tonsillectomy and adenoidectomy <Chilango Garcia Last Filed: 10/01/22 02:16> Family History Family History: Family History Father Medical history unknown Mother Diabetes Hypertension Maternal Aunt Breast cancer Ovarian cancer Mental health disorder Maternal Grandmother Diabetes Hypertension <Chilango Garcia - Last Filed: 10/01/22 02:16> Social History Social History: Social History Household Members: Spouse and Children Housing: Condominium Alcohol intake: never Patient Tobacco Use Status: Former Tobacco user Tobacco use type: Cigarette Cigarettes Per Day: 3 Smoked in Last 30 Days: No e-Cigarette/Vaping Use: Never Used Second Hand Smoke Exposure: No Use of substances other than those prescribed or required for medical reasons: No Substance Use Type: Marijuana Advance Directives: No Advance Directives Information Provided: Yes Patient : No service: No Current occupational status: disabled Sexual orientation: Straight/Heterosexual Gender identity: Female Cognitive needs: No Hearing needs: No Vision needs: Yes <Chilango Torres - Last Filed: 10/01/22 02:16> Physical Exam Vital Signs: Vital Signs: Last Vital Signs Temp 97.6 F 10/01/22 04:13 Pulse 60 10/01/22 06:45 Resp 10/01/22 06:45 BP 127/54 L 10/01/22 06:45 Pulse Ox 100 10/01/22 06:45 O2 Del Method Room Air 10/01/22 06:45 BMI result Body Mass Index 41.3 <Chilango Torres - Last Filed: 10/01/22 02:16> Vital Signs: Last Vital Signs Temp 97.6 F 10/01/22 04:13 Pulse 60 10/01/22 06:45 Resp 16 10/01/22 06:45 BP 127/54 L 10/01/22 06:45 Pulse Ox 100 10/01/22 06:45 O2 Del Method Room Air 10/01/22 06:45 BMI result Body Mass Index 41.3 <Mick Clement MD - Last Filed: 10/01/22 07:44> Const: General: healthy appearing, comfortable, no acute distress, alert and awake <Chilango Torres - Last Filed: 10/01/22 02:16> Nutritional Appearance: well nourished <Chilango Torres - Last Filed: 10/01/22 02:16> Orientation/consciousness: patient oriented x3 <Chilango Torres - Last Filed: 10/01/22 02:16> HEENT: Head: Yes normocephalic and Yes atraumatic < - Last Filed: 10/01/22 02:16> Throat: Yes posterior oropharynx normal < - Last Filed: 10/01/22 02:16> Eyes: Eyelids: Yes eyelids normal < - Last Filed: 10/01/22 02:16> Conjunctivae: conjunctivae normal < - Last Filed: 10/01/22 02:16> Sclerae: sclerae normal < - Last Filed: 10/01/22 02:16> Corneas: corneas normal < - Last Filed: 10/01/22 02:16> Pupils: Equal, round and reactive pupils present < Last Filed: 10/01/22 02:16> EOM: EOMs intact bilaterally < - Last Filed: 10/01/22 02:16> Neck: Neck: Yes full ROM < - Last Filed: 10/01/22 02:16> Resp: Effort & Inspection: normal respiratory effort, able to speak in complete sentences, no audible wheezes and not labored < - Last Filed: 10/01/22 02:16> Auscultation: clear to auscultation bilaterally < Last Filed: 10/01/22 02:16> Cardio: Rate: regular rate < - Last Filed: 10/01/22 02:16> Rhythm: regular rhythm < - Last Filed: 10/01/22 02:16> GI: Inspection: No distended and Yes obesity < - Last Filed: 10/01/22 02:16> Palpation (GI): Soft to palpation, not firm, Tenderness to palpation present (GI) in the LLQ, in the RLQ and suprapubicly, Guarding due to palpation present (GI) and not rigid < - Last Filed: 10/01/22 02:16> Auscultation: normoactive bowel sounds <Chilango Mayeny - Last Filed: 10/01/22 02:16> Skin: General skin exam: no rashes or lesions noted and elasticity normal <Chilango GarciaYosvany - Last Filed: 10/01/22 02:16> Neuro: General: patient oriented x3 <Chilango GarciaIvesdale - Last Filed: 10/01/22 02:16> Cranial nerves: Yes CN's II-XII intact bilaterally, Yes Equal, round and reactive pupils present and Yes Bilaterally intact EOM present <Chilango OYosvany - Last Filed: 10/01/22 02:16> Cognition (Neuro): normal cognition <Chilango O Last Filed: 10/01/22 02:16> Course Reevaluation(s) Reevaluation #1: Patient does have a slight leukocytosis of 12.7 1000. Her renal function is within normal limits. Patient's urine does appear to show UTI but also with decent amount of blood and calcium oxalate crystal raising the suspicion for obstructive uropathy. Given the patient's continued discomfort will be a CT scan of the abdomen pelvis to evaluate for obstructive uropathy. Patient was medicated with ceftriaxone, Toradol. Patient signed out to the overnight staff <Chilango GarciaIvesdale - Last Filed: 10/01/22 02:16> Time: 02:15 <Chilango Torres Last Filed: 10/01/22 02:16> Reevaluation #2: CT scan abdomen pelvis without IV contrast consistent with 3 mm distal right ureteral calculi with moderate to severe hydronephrosis. Patient's pain initially improved with morphine and Toradol but now the pain is back and is 8/10. Patient was ordered to get Dilaudid 1 mg IV. Given her elevated white blood cell count, subjective fever chills, dysuria urgency, I will discuss management with our covering urologist, Dr. Rausch. <Mick Clement MD - Last Filed: 10/01/22 07:44> Time: 04:47 <Mick Clement MD - Last Filed: 10/01/22 07:44> Reevaluation #3: The patient only got minimal relief with the Dilaudid. The patient was ordered to get a 2nd dose of Dilaudid 1 mg IV. I did discuss the patient's presentation with the covering urologist Dr. Rausch. He states that he will come to the emergency department and evaluate the patient to determine disposition. <Mick Clement MD - Last Filed: 10/01/22 07:44> Time: 06:32 <Mick Clement MD - Last Filed: 10/01/22 07:44> Additional Reevaluation(s): 0743: At the end of my shift, the patient is still waiting to be seen by Dr. Rausch. Therefore, the patient's care was turned over to my colleague, Dr. Kelly. <Mick Clement MD - Last Filed: 10/01/22 07:44> Medications Administered Discontinued Medications Generic Name Dose Route Start Last Admin Trade Name Freq PRN Reason Stop Dose Admin Hydromorphone HCl 1 mg 10/01/22 04:41 10/01/22 04:56 Hydromorphone Hcl 1 Mg/Ml Syringe IVPUSH 10/01/22 04:42 1 mg ONCE STA Administration Protocol Hydromorphone HCl 1 mg 10/01/22 06:31 10/01/22 07:06 Hydromorphone Hcl 1 Mg/Ml Syringe IVPUSH 10/01/22 06:32 1 mg ONCE STA Administration Protocol Sodium Chloride 1,000 mls @ 999 mls/hr 09/30/22 23:45 10/01/22 01:49 Ns IV 10/01/22 00:45 Infused .Q1H1M MARY Infusion Ceftriaxone Sodium 1 gm/ 50 mls @ 100 mls/hr 10/01/22 02:14 10/01/22 03:05 Sodium Chloride IV 10/01/22 02:43 Infused ONCE ONE Infusion Ketorolac Tromethamine 30 mg 10/01/22 02:01 10/01/22 02:18 Ketorolac Tromethamine 30 Mg/Ml Vial IVPUSH 10/01/22 02:02 30 mg ONCE ONE Administration Morphine Sulfate 4 mg 09/30/22 23:50 10/01/22 00:36 Morphine Sulfate 4 Mg/Ml Cartridge IVPUSH 09/30/22 23:51 4 mg ONCE ONE Administration Protocol Ondansetron HCl 4 mg 09/30/22 23:50 10/01/22 00:36 Ondansetron Hcl 4 Mg/2 Ml Vial IVPUSH 09/30/22 23:51 4 mg ONCE ONE Administration <Chilango Torres - Last Filed: 10/01/22 02:16> Medications Administered Discontinued Medications Generic Name Dose Route Start Last Admin Trade Name Bob PRN Reason Stop Dose Admin Hydromorphone HCl 1 mg 10/01/22 04:41 10/01/22 04:56 Hydromorphone Hcl 1 Mg/Ml Syringe IVPUSH 10/01/22 04:42 1 mg ONCE STA Administration Protocol Hydromorphone HCl 1 mg 10/01/22 06:31 10/01/22 07:06 Hydromorphone Hcl 1 Mg/Ml Syringe IVPUSH 10/01/22 06:32 1 mg ONCE STA Administration Protocol Sodium Chloride 1,000 mls @ 999 mls/hr 09/30/22 23:45 10/01/22 01:49 Ns IV 10/01/22 00:45 Infused .Q1H1M MARY Infusion Ceftriaxone Sodium 1 gm/ 50 mls @ 100 mls/hr 10/01/22 02:14 10/01/22 03:05 Sodium Chloride IV 10/01/22 02:43 Infused ONCE ONE Infusion Ketorolac Tromethamine 30 mg 10/01/22 02:01 10/01/22 02:18 Ketorolac Tromethamine 30 Mg/Ml Vial IVPUSH 10/01/22 02:02 30 mg ONCE ONE Administration Morphine Sulfate 4 mg 09/30/22 23:50 10/01/22 00:36 Morphine Sulfate 4 Mg/Ml Cartridge IVPUSH 09/30/22 23:51 4 mg ONCE ONE Administration Protocol Ondansetron HCl 4 mg 09/30/22 23:50 10/01/22 00:36 Ondansetron Hcl 4 Mg/2 Ml Vial IVPUSH 09/30/22 23:51 4 mg ONCE ONE Administration <Mick Clement MD - Last Filed: 10/01/22 07:44> Medical Decision Making Medical Decision Making MDM Narrative: 31-year-old female presents for evaluation of abdominal pain with dysuria. Will medicate the patient very fluids, morphine, Zofran. Will get labs and a UA to evaluate for complicated versus uncomplicated UTI. Also differential is obstructive uropathy <Chilango Torres - Last Filed: 10/01/22 02:16> Differential Diagnosis UTI Pyelonephritis Obstructive uropathy Abdominal pain Acute appendicitis Ectopic <Chilango Torres - Last Filed: 10/01/22 02:16> Lab Data Result Diagrams: 10/01/22 00:07 10/01/22 00:07 <Chilango Torres - Last Filed: 10/01/22 02:16> Labs: Lab Results 10/01/22 10/01/22 10/01/22 Range/Units 00:07 00:07 00:59 WBC 12.8 H (4.8-10.8) X10*3/uL RBC 4.06 L (4.20-5.50) X10*6/uL Hgb 10.1 L (12.0-16.0) g/dl Hct 32.1 L (37.0-47.0) % MCV 79.1 L (80.0-98.0) fL MCH 24.9 L (27.0-33.0) pg MCHC 31.5 (31.0-35.0) g/dl RDW 14.6 (11.0-16.0) % Plt Count 348 (160-400) X10*3/uL MPV 10.9 (9.4-12.3) fL Immature Gran % (Auto) 0.4 (0.0-0.4) % Neut % (Auto) 78.9 H (45-73) % Lymph % (Auto) 12.7 L (20-40) % Isabella % (Auto) 5.8 (2-11) % Eos % (Auto) 1.8 (0-4) % Baso % (Auto) 0.4 (0-2) % Lymph # (Auto) 1.6 (1.2-4.9) X10*3/uL Isabella # (Auto) 0.7 (0.1-1.2) X10*3/uL Eos # (Auto) 0.2 (0.0-0.4) X10*3/uL Baso # (Auto) 0.1 (0.0-0.2) X10*3/uL Abs Immat Gran (auto) 0.05 H (0.00-0.03) X10*3/uL Absolute Neuts (auto) 10.1 H (2.0-8.3) x10*3/uL Absolute Nucleated RBC 0.000 (0.0-0.012) X10*3/uL Nucleated RBC % (auto) 0.0 (0.0-0.2) /100WBC Sodium 140 (135-145) mmol/L Potassium 4.1 (3.3-5.1) mmol/L Chloride 110 H (96-108) mmol/L Carbon Dioxide 20 L (22-29) mmol/L Anion Gap 14 (12-20) BUN 11 (9-16) mg/dL Creatinine 0.71 (0.5-1.4) mg/dL Estim Creat Clear Calc 122.8 Estimated GFR > 60 Random Glucose 137 H (60-115) mg/dL Calcium 9.1 (8.4-10.2) mg/dL Total Bilirubin 0.2 (0.0-1.0) mg/dL AST 17 (5-31) U/L ALT 18 (0-31) U/L Alkaline Phosphatase 85 (39-117) U/L Total Protein 7.1 (6.5-8.0) g/dL Albumin 4.1 (3.5-5.0) g/dL Urine Color Dark Yellow Urine Appearance Turbid Urine pH 5.5 (5.0-9.0) Ur Specific [place] >= 1.030 H (1.005-1.025) Urine Protein 300 (3+) H (Neg-Trace) mg/dL Urine Glucose (UA) Negative (Negative) mg/dL Urine Ketones Trace (Negative) mg/dL Urine Blood Large (3+) H (Negative) Urine Nitrite Negative (Negative) Ur Leukocyte Esterase Small (1+) H (Negative) Urine RBC >20 H (0-2) /HPF Urine WBC 21-50 H (0-5) /HPF Ur Squamous Epith Cells >20 (0-2) /HPF Calcium Oxalate Crystal Present Urine Bacteria 4+ (None Seen) Hyaline Casts 11-20 (0-2) /LPF Urine Test (NEGATIVE) 10/01/22 Range/Units 00:59 WBC (4.8-10.8) X10*3/uL RBC (4.20-5.50) X10*6/uL Hgb (12.0-16.0) g/dl Hct (37.0-47.0) % MCV (80.0-98.0) fL MCH (27.0-33.0) pg MCHC (31.0-35.0) g/dl RDW (11.0-16.0) % Plt Count (160-400) X10*3/uL MPV (9.4-12.3) fL Immature Gran % (Auto) (0.0-0.4) % Neut % (Auto) (45-73) % Lymph % (Auto) (20-40) % Isabella % (Auto) (2-11) % Eos % (Auto) (0-4) % Baso % (Auto) (0-2) % Lymph # (Auto) (1.2-4.9) X10*3/uL Isabella # (Auto) (0.1-1.2) X10*3/uL Eos # (Auto) (0.0-0.4) X10*3/uL Baso # (Auto) (0.0-0.2) X10*3/uL Abs Immat Gran (auto) (0.00-0.03) X10*3/uL Absolute Neuts (auto) (2.0-8.3) x10*3/uL Absolute Nucleated RBC (0.0-0.012) X10*3/uL Nucleated RBC % (auto) (0.0-0.2) /100WBC Sodium (135-145) mmol/L Potassium (3.3-5.1) mmol/L Chloride (96-108) mmol/L Carbon Dioxide (22-29) mmol/L Anion Gap (12-20) BUN (9-16) mg/dL Creatinine (0.5-1.4) mg/dL Estim Creat Clear Calc Estimated GFR Random Glucose (60-115) mg/dL Calcium (8.4-10.2) mg/dL Total Bilirubin (0.0-1.0) mg/dL AST (5-31) U/L ALT (0-31) U/L Alkaline Phosphatase (39-117) U/L Total Protein (6.5-8.0) g/dL Albumin (3.5-5.0) g/dL Urine Color Urine Appearance Urine pH (5.0-9.0) Ur Specific [place] (1.005-1.025) Urine Protein (Neg-Trace) mg/dL Urine Glucose (UA) (Negative) mg/dL Urine Ketones (Negative) mg/dL Urine Blood (Negative) Urine Nitrite (Negative) Ur Leukocyte Esterase (Negative) Urine RBC (0-2) /HPF Urine WBC (0-5) /HPF Ur Squamous Epith Cells (0-2) /HPF Calcium Oxalate Crystal Urine Bacteria (None Seen) Hyaline Casts (0-2) /LPF Urine Test NEGATIVE (NEGATIVE) <Chilango Torres - Last Filed: 10/01/22 02:16> Lab Results 10/01/22 10/01/22 10/01/22 Range/Units 00:07 00:07 00:59 WBC 12.8 H (4.8-10.8) X10*3/uL RBC 4.06 L (4.20-5.50) X10*6/uL Hgb 10.1 L (12.0-16.0) g/dl Hct 32.1 L (37.0-47.0) % MCV 79.1 L (80.0-98.0) fL MCH 24.9 L (27.0-33.0) pg MCHC 31.5 (31.0-35.0) g/dl RDW 14.6 (11.0-16.0) % Plt Count 348 (160-400) X10*3/uL MPV 10.9 (9.4-12.3) fL Immature Gran % (Auto) 0.4 (0.0-0.4) % Neut % (Auto) 78.9 H (45-73) % Lymph % (Auto) 12.7 L (20-40) % Isabella % (Auto) 5.8 (2-11) % Eos % (Auto) 1.8 (0-4) % Baso % (Auto) 0.4 (0-2) % Lymph # (Auto) 1.6 (1.2-4.9) X10*3/uL Isabella # (Auto) 0.7 (0.1-1.2) X10*3/uL Eos # (Auto) 0.2 (0.0-0.4) X10*3/uL Baso # (Auto) 0.1 (0.0-0.2) X10*3/uL Abs Immat Gran (auto) 0.05 H (0.00-0.03) X10*3/uL Absolute Neuts (auto) 10.1 H (2.0-8.3) x10*3/uL Absolute Nucleated RBC 0.000 (0.0-0.012) X10*3/uL Nucleated RBC % (auto) 0.0 (0.0-0.2) /100WBC Sodium 140 (135-145) mmol/L Potassium 4.1 (3.3-5.1) mmol/L Chloride 110 H (96-108) mmol/L Carbon Dioxide 20 L (22-29) mmol/L Anion Gap 14 (12-20) BUN 11 (9-16) mg/dL Creatinine 0.71 (0.5-1.4) mg/dL Estim Creat Clear Calc 122.8 Estimated GFR > 60 Random Glucose 137 H (60-115) mg/dL Calcium 9.1 (8.4-10.2) mg/dL Total Bilirubin 0.2 (0.0-1.0) mg/dL AST 17 (5-31) U/L ALT 18 (0-31) U/L Alkaline Phosphatase 85 (39-117) U/L Total Protein 7.1 (6.5-8.0) g/dL Albumin 4.1 (3.5-5.0) g/dL Urine Color Dark Yellow Urine Appearance Turbid Urine pH 5.5 (5.0-9.0) Ur Specific [place] >= 1.030 H (1.005-1.025) Urine Protein 300 (3+) H (Neg-Trace) mg/dL Urine Glucose (UA) Negative (Negative) mg/dL Urine Ketones Trace (Negative) mg/dL Urine Blood Large (3+) H (Negative) Urine Nitrite Negative (Negative) Ur Leukocyte Esterase Small (1+) H (Negative) Urine RBC >20 H (0-2) /HPF Urine WBC 21-50 H (0-5) /HPF Ur Squamous Epith Cells >20 (0-2) /HPF Calcium Oxalate Crystal Present Urine Bacteria 4+ (None Seen) Hyaline Casts 11-20 (0-2) /LPF Urine Test (NEGATIVE) 10/01/22 Range/Units 00:59 WBC (4.8-10.8) X10*3/uL RBC (4.20-5.50) X10*6/uL Hgb (12.0-16.0) g/dl Hct (37.0-47.0) % MCV (80.0-98.0) fL MCH (27.0-33.0) pg MCHC (31.0-35.0) g/dl RDW (11.0-16.0) % Plt Count (160-400) X10*3/uL MPV (9.4-12.3) fL Immature Gran % (Auto) (0.0-0.4) % Neut % (Auto) (45-73) % Lymph % (Auto) (20-40) % Isabella % (Auto) (2-11) % Eos % (Auto) (0-4) % Baso % (Auto) (0-2) % Lymph # (Auto) (1.2-4.9) X10*3/uL Isabella # (Auto) (0.1-1.2) X10*3/uL Eos # (Auto) (0.0-0.4) X10*3/uL Baso # (Auto) (0.0-0.2) X10*3/uL Abs Immat Gran (auto) (0.00-0.03) X10*3/uL Absolute Neuts (auto) (2.0-8.3) x10*3/uL Absolute Nucleated RBC (0.0-0.012) X10*3/uL Nucleated RBC % (auto) (0.0-0.2) /100WBC Sodium (135-145) mmol/L Potassium (3.3-5.1) mmol/L Chloride (96-108) mmol/L Carbon Dioxide (22-29) mmol/L Anion Gap (12-20) BUN (9-16) mg/dL Creatinine (0.5-1.4) mg/dL Estim Creat Clear Calc Estimated GFR Random Glucose (60-115) mg/dL Calcium (8.4-10.2) mg/dL Total Bilirubin (0.0-1.0) mg/dL AST (5-31) U/L ALT (0-31) U/L Alkaline Phosphatase (39-117) U/L Total Protein (6.5-8.0) g/dL Albumin (3.5-5.0) g/dL Urine Color Urine Appearance Urine pH (5.0-9.0) Ur Specific [place] (1.005-1.025) Urine Protein (Neg-Trace) mg/dL Urine Glucose (UA) (Negative) mg/dL Urine Ketones (Negative) mg/dL Urine Blood (Negative) Urine Nitrite (Negative) Ur Leukocyte Esterase (Negative) Urine RBC (0-2) /HPF Urine WBC (0-5) /HPF Ur Squamous Epith Cells (0-2) /HPF Calcium Oxalate Crystal Urine Bacteria (None Seen) Hyaline Casts (0-2) /LPF Urine Test NEGATIVE (NEGATIVE) <Mick Clement MD - Last Filed: 10/01/22 07:44> Radiology Impression Discussion of test interpretation with radiology: I have reviewed the radiologist's reading. <Mick Clement MD - Last Filed: 10/01/22 07:44> Radiologist Impression: CT abdomen pelvis wo IV con IMPRESSION: 1. Moderate to severe right hydroureteronephrosis suspected to be due to a distal ureteral calculus measuring 3 mm. 2. Several scattered bilateral renal calculi. 3. Suggestion of trace pelvic free fluid, which may be physiologic. Dictated By:Ruben Main MD <iMck Clement MD - Last Filed: 10/01/22 07:44> Discharge Plan Discharge Clinical Impression: UTI (urinary tract infection), Right distal ureteral calculus, Hydronephrosis of right kidney <Chilango Torres - Last Filed: 10/01/22 02:16> Patient Disposition: Still a Patient <Chilango Torres - Last Filed: 10/01/22 02:16> Prescriptions: No Action FreeStyle Lite Strips Strip 4 strip miscellaneous QID 30 Days Qty: 100 1RF ibuprofen [IBU] 800 mg tablet 800 mg PO Q8H PRN (Reason: pain/headaches) 30 Days Qty: 90 0RF Rx Instructions: Take with food (DME) FRONT-WHEELED WALKER See Rx Instructions .Route .MEDSUPPLY Qty: 1 0RF Rx Instructions: As directed (DME) TUB SEAT with BACK See Rx Instructions .Route .MEDSUPPLY Qty: 1 0RF Rx Instructions: As directed (DME) BEDSIDE COMMODE See Rx Instructions .Route .MEDSUPPLY Qty: 1 0RF Rx Instructions: As directed gabapentin 400 mg capsule 400 mg PO TID 30 Days Qty: 90 3RF Rx Instructions: 1 capsule Orally Three times a day labetalol 100 mg tablet 100 mg PO BID Qty: 180 1RF cyclobenzaprine 10 mg tablet 10 mg PO TID PRN (Reason: muscle spasm) Qty: 14 0RF naproxen 500 mg tablet 500 mg PO BID PRN (Reason: pain) Qty: 20 0RF ondansetron 4 mg tablet,disintegrating 4 mg PO Q8H PRN (Reason: nausea and vomiting) Qty: 10 0RF amlodipine [Norvasc] 5 mg tablet 5 mg PO DAILY Qty: 30 0RF miscellaneous medical supply Misc 1 ea miscellaneous DAILY 99 Days Qty: 2 0RF sertraline 100 mg tablet 100 mg PO DAILY ferrous sulfate [Feosol] 325 mg (65 mg iron) tablet 325 mg PO DAILY 30 Days Qty: 30 5RF hydroxyzine HCl 25 mg tablet See Rx Instructions .ROUTE .COMPLEX 30 Days Qty: 180 3RF Rx Instructions: 1 to 2 tablets 3 times a day as needed for anxiety; lidocaine 5 % adhesive patch,medicated 1 patch topical DAILY Qty: 15 0RF Rx Instructions: leave on most painful area for up to 12 hrs doxycycline hyclate 100 mg tablet 100 mg PO BID 5 Days Qty: 10 0RF (DME) lancets [FreeStyle Lancets] 28 gauge misc See Rx Instructions .ROUTE .MEDSUPPLY Qty: 100 1RF Rx Instructions: 4 times/day bupropion HCl 150 mg tablet extended release 24 hr 150 mg PO QAM spironolactone 50 mg tablet 50 mg PO BID Qty: 60 5RF Dexilant 60 mg capsule,biphase delayed releas 60 mg PO DAILY Qty: 30 6RF metoclopramide HCl [Reglan] 5 mg tablet 5 mg PO QIDACHS Qty: 120 6RF Linzess 145 mcg capsule 145 mcg PO QAM Qty: 30 6RF <Chilango Torres - Last Filed: 10/01/22 02:16>
[2022-10-01] VITALS (10 sets, daily range): BP systolic 124–169; BP diastolic 39–92; PULSE 60–90; RESP 16–18; TEMP 36.1–36.6; O2SAT 96–100
[2022-10-01 00:36] LABS: MANUAL DIFF FLAG NO
[2022-10-01] MEDS: ondansetron HCL 4 MG/2 ML VIAL IVPUSH (00:36)
[2022-10-01] MEDS: 0.9 % Sodium Chloride 1,000 ML 999 ML IV (00:36)
[2022-10-01] MEDS: Morphine Sulfate 4 MG/ML CARTRIDGE IVPUSH (00:36)
[2022-10-01 00:37] LABS: Basophils Absolute Auto 0.1 X10*3/uL (0.0-0.2); Basophils Percent Auto 0.4 % (0-2); Eosinophils Absolute Auto 0.2 X10*3/uL (0.0-0.4); Eosinophils Percent Auto 1.8 % (0-4); Hematocrit 32.1 % (37.0-47.0); Hemoglobin 10.1 g/dl (12.0-16.0); Imm Gran Abs Auto 0.05 X10*3/uL (0.00-0.03); Imm Gran Pct Auto 0.4 % (0.0-0.4); Lymphocytes Absolute Auto 1.6 X10*3/uL (1.2-4.9); Lymphocytes Percent Auto 12.7 % (20-40); Mean Corpuscular HGB Conc 31.5 g/dl (31.0-35.0); Mean Corpuscular Hemoglobin 24.9 pg (27.0-33.0); Mean Corpuscular Volume 79.1 fL (80.0-98.0); Mean Platelet Volume 10.9 fL (9.4-12.3); Monocytes Absolute Auto 0.7 X10*3/uL (0.1-1.2); Monocytes Percent Auto 5.8 % (2-11); Neutrophils Absolute Auto 10.1 x10*3/uL (2.0-8.3); Neutrophils Percent Auto 78.9 % (45-73); Platelet Count 348 X10*3/uL (160-400); Red Blood Count 4.06 X10*6/uL (4.20-5.50); Red Cell Distribution Width 14.6 % (11.0-16.0); White Blood Count 12.8 X10*3/uL (4.8-10.8)
[2022-10-01 00:56] LABS: Alanine Aminotransferase 18 U/L (0-31); Albumin Level 4.1 g/dL (3.5-5.0); Alkaline Phosphatase 85 U/L (39-117); Anion Gap 14 (12-20); Aspartate Amino Transferase 17 U/L (5-31); Bilirubin Total 0.2 mg/dL (0.0-1.0); Blood Urea Nitrogen 11 mg/dL (9-16); Calcium 9.1 mg/dL (8.4-10.2); Carbon Dioxide 20 mmol/L (22-29); Chloride 110 mmol/L (96-108); Creatinine Clr Calc Pharmacy 122.8; Estimated Glomerular Filt Rate > 60; Glucose Random 137 mg/dL (60-115); Potassium 4.1 mmol/L (3.3-5.1); Sodium 140 mmol/L (135-145); Total Protein 7.1 g/dL (6.5-8.0)
--- NOTE | 2022-10-01 01:07 | PC.NURSE ---
Pt ambulated to the bathroom. Gait is steady and even
[2022-10-01 01:10] LABS: Appearance Urine Turbid; Color Urine Dark Yellow; Glucose Urine UA Negative (Negative); Leukocyte Esterase Urine Small (1+) (Negative); Nitrite Urine Negative (Negative); PH 5.5 (5.0-9.0); Specific Gravity - Urine >= 1.030 (1.005-1.025); UMIC TRIGGER UACC YES; Urine Blood Large (3+) (Negative); Urine Ketones Trace mg/dL (Negative); Urine Protein 300 (3+) mg/dL (Neg-Trace)
[2022-10-01 01:11] LABS: UPreg QC Valid YES; Urine Pregnancy NEGATIVE (NEGATIVE)
[2022-10-01 01:21] LABS: Bacteria Urine 4+ (None Seen); Calcium Oxalate Crystals Urine Present; RBC Urine >20 /HPF (0-2); Squamous Epithelial Cell Urine >20 /HPF (0-2); UACC Culture Trigger YES; WBC Urine 21-50 /HPF (0-5)
[2022-10-01] MEDS: Ketorolac Tromethamine 30 MG/ML VIAL IVPUSH (02:18)
[2022-10-01] MEDS: cefTRIAXone sodium 1 GM in 0.9 % Sodium Chloride 50 ML IV (02:23)
--- NOTE | 2022-10-01 03:20 | PC.NURSE ---
Pt asleep at this time, significant other at the bedside.
[2022-10-01] MEDS: HYDROmorphone HCl 1 MG/ML SYRINGE IVPUSH ×3 (04:56→11:32)
--- NOTE | 2022-10-01 07:10 | PC.NURSE ---
Pt medicated per the MAR for pain, still reporting 10/10 pain. Awaiting consult with urology, NPO at this time.
--- NOTE | 2022-10-01 10:19 | P.CNUR_ITS ---
History of Present Illness Consult details Consult date: 10/01/22 Narrative: Consulting Complaint: right flank pain with urge to urinate history of presenting illness past medical history bipolar disorder, PCOS, ADHD, obesity presented with 24 hour history of right flank pain radiating to lower abdomen dysuria, urgency but inability to empty recent hip replacement Imaging shows 4 mm distal right ureteric stone with moderate right hydroureteronephrosis, small stones bilateral labs - WBC 12.8, creatinine 0.71, calcium 9.1 discussed results will recommend cystoscopy, retrograde, right ureteroscopy with laser lithotripsy, stent placement Review of Systems Constitutional: Constitutional: Reports as per HPI and Reports no additional constitutional complaints Cardiovascular: Cardiovascular: Reports as per HPI and Reports no additional cardiovascular complaints Respiratory: Respiratory: Reports as per HPI and Reports no additional respiratory complaints Gastrointestinal: Gastrointestinal: Reports as per HPI and Reports no additional gastrointestinal complaints Genitourinary: Genitourinary: Reports as per HPI Musculoskeletal: Musculoskeletal: Reports no additional musculoskeletal complaints and Reports as per HPI Neurologic: Reports system reviewed and no additional complaints, except as documented and Reports as per HPI FOR[facility]LY [facility] Past Medical History Medical History Anxiety Arthritis Carpal tunnel syndrome, bilateral Depression Depression Fibromyalgia Hyperlipemia Hypertension Insomnia Lower back pain Migraine Migraines Morbid obesity Morbid obesity with BMI of 40.0-44.9, adult Obesity Obesity (BMI 30-39.9) PCOS (polycystic ovarian syndrome) Polyuria Rheumatoid arthritis Second trimester Smoker Vulvar cyst Family History Family History Father Medical history unknown Mother Diabetes Hypertension Maternal Aunt Breast cancer Ovarian cancer Mental health disorder Maternal Grandmother Diabetes Hypertension Surgical History Surgical History History of esophagogastroduodenoscopy (EGD) History of removal of cyst History of tonsillectomy and adenoidectomy Social History Social History Household Members: Spouse and Children [facility] Alcohol intake: never Patient Tobacco Use Status: Former Tobacco user Tobacco use type: Cigarette Cigarettes Per Day: 3 Smoked in Last 30 Days: No e-Cigarette/Vaping Use: Never Used Second Hand Smoke Exposure: No Use of substances other than those prescribed or required for medical reasons: No Substance Use Type: Marijuana Advance Directives: No Advance Directives Information Provided: Yes Patient : No service: No Current occupational status: disabled Sexual orientation: Straight/Heterosexual Gender identity: Female Cognitive needs: No Hearing needs: No Vision needs: Yes Meds Allergies Allergy/AdvReac Type Severity Reaction Status Date / Time amoxicillin [AMOXICILLIN] Allergy Intermediate NAUSEA & Verified 09/30/22 23:38 VOMITING, stomach pain, vomiting, stomach upset topiramate [From TOPAMAX] Allergy Intermediate TREMORS, Verified 09/30/22 23:38 nausea and vomiting latex [LATEX] Allergy Mild RASH Verified 09/30/22 23:38 medroxyprogesterone Allergy Mild RASH Verified 09/30/22 23:38 [From PROVERA] lactose Allergy bloating , Verified 09/30/22 23:38 diarrhea Active Medications: Current Medications Levofloxacin (Levaquin) 500 mg in 100 mls @ 100 mls/hr IV PREOP ONE Stop: 10/01/22 11:15 Home Medications Medication Instructions Recorded Confirmed Last Taken Type sertraline 100 mg tablet 100 mg PO DAILY 08/22/20 05/08/22 Unknown History bupropion HCl 150 mg 24 hr tablet, 150 mg PO QAM 05/03/21 05/08/22 Unknown History extended release Physical Exam Vital Signs: Vital Signs: Last Vital Signs Temp 97.6 F 10/01/22 04:13 Pulse 60 10/01/22 06:45 Resp 16 10/01/22 06:45 BP 127/54 L 10/01/22 06:45 Pulse Ox 100 10/01/22 06:45 O2 Del Method Room Air 10/01/22 06:45 BMI result Body Mass Index 41.3 Const: General: cooperative, healthy appearing, comfortable and no acute distress Orientation/consciousness: patient oriented x3 HEENT: Face and sinus: Yes normal facial exam Mouth: moist mucous membranes Neck: Neck: Yes normal visual inspection, Yes full ROM and Yes trachea midline Chest: Chest palpation & inspection: normal inspection of the chest Resp: Effort & Inspection: normal respiratory effort, able to speak in complete sentences and no respiratory distress GI: Inspection: Yes normal to inspection Back/Spine/Pelvis: Cervical Spine: normal cervical lordosis Thoracic/Lumbar Spine: thoracic and lumbar spine normal to inspection Skin: General skin exam: no rashes or lesions noted Neuro: General: patient oriented x3, tone normal and moves all extremities Extrem: General: Yes normal to inspection and Yes capillary refill normal Results Labs 10/01/22 00:07 10/01/22 00:07 Labs: Abnormal lab results 10/01/22 10/01/22 10/01/22 Range/Units 00:07 00:07 00:59 WBC 12.8 H (4.8-10.8) X10*3/uL RBC 4.06 L (4.20-5.50) X10*6/uL Hgb 10.1 L (12.0-16.0) g/dl Hct 32.1 L (37.0-47.0) % MCV 79.1 L (80.0-98.0) fL MCH 24.9 L (27.0-33.0) pg Neut % (Auto) 78.9 H (45-73) % Lymph % (Auto) 12.7 L (20-40) % Abs Immat Gran (auto) 0.05 H (0.00-0.03) X10*3/uL Absolute Neuts (auto) 10.1 H (2.0-8.3) x10*3/uL Chloride 110 H (96-108) mmol/L Carbon Dioxide 20 L (22-29) mmol/L Random Glucose 137 H (60-115) mg/dL Ur Specific [place] >= 1.030 H (1.005-1.025) Urine Protein 300 (3+) H (Neg-Trace) mg/dL Urine Blood Large (3+) H (Negative) Ur Leukocyte Esterase Small (1+) H (Negative) Urine RBC >20 H (0-2) /HPF Urine WBC 21-50 H (0-5) /HPF Short CBC 10/01/22 Range/Units 00:07 WBC 12.8 H (4.8-10.8) X10*3/uL Hgb 10.1 L (12.0-16.0) g/dl Hct 32.1 L (37.0-47.0) % Plt Count 348 (160-400) X10*3/uL BMP 10/01/22 00:07 Sodium 140 Potassium 4.1 Chloride 110 H Carbon Dioxide 20 L BUN 11 Creatinine 0.71 Calcium 9.1 Liver Function 10/01/22 Range/Units 00:07 Total Bilirubin 0.2 (0.0-1.0) mg/dL AST 17 (5-31) U/L ALT 18 (0-31) U/L Alkaline Phosphatase 85 (39-117) U/L Albumin 4.1 (3.5-5.0) g/dL Urine 10/01/22 10/01/22 Range/Units 00:59 00:59 Urine Color Dark Yellow Urine Appearance Turbid Urine pH 5.5 (5.0-9.0) Ur Specific [place] >= 1.030 H (1.005-1.025) Urine Protein 300 (3+) H (Neg-Trace) mg/dL Urine Glucose (UA) Negative (Negative) mg/dL Urine Test NEGATIVE (NEGATIVE) All other labs normal. Assessment and Plan (1) Right distal ureteral calculus: Status: Acute (2) Hydronephrosis of right kidney: Status: Acute Plan Ureteroscopy We discussed the nature of the decision and reasonable alternatives for perf orming ureteroscopy. Options such as medical therapy were discussed. Interventions include chemical dissolution, ESWL, ureteroscopy with laser lithotripsy and stent placement, PCNL. The relative uncertainties and benefits related to each alternate procedure were adequately discussed. General surgical risks including, but not limited to - pain, bleeding, infection, myocardial infarction, pulmonary embolus, deep vein thrombosis and cerebrovascular accident which may result in further hospitalizat ion were discussed. Full disclosure of the procedure as well as all major risks, benefits and com plications were discussed including but not limited to damage to the urethra, bladder and kidney infection, damage to the ureter, stent migration or malposition, scarring to the renal pelvis, remnant stone fragments, subsequent stone passage with need for secondary procedures. The overall secondary procedure rate is approximately 10-15%. The overall clearance rate is approximately 90-95%. Success of the procedure in the short-term does not necessarily guarantee that long-term success will be maintained. Suitable follow up will need to be maintained. The patient showed understanding of discussion and wishes to proceed with - cystoscopy, retrograde, ureteroscopy, possible lithotripsy/stone basketing and stent on the right side Time Spent With Patient Time: Total time managing care of this patient today ____ minutes. Procedures Date of Service Date of Service: 10/01/22
[2022-10-01] MEDS: levoFLOXacin/D5W 500 MG/100 ML PIGGYBACK 100 MG IV (11:32)
--- NOTE | 2022-10-01 13:04 | W.PM.OPN ---
Operative Note Operative Note Date of Service: 10/01/22 Narrative: PreOperative Diagnosis: Right distal ureteric stone with hydronephrosis Post Operative Diagnosis: Right distal ureteric stone with hydronephrosis Procedure: - cystoscopy, right retrograde - right dilatation of ureteric orifice under fluoroscopy - right ureteroscopy, stone basketing - right stent placement Surgeon: Dr Jayson Rausch Anesthesia: General Indications for procedure: Right distal ureteric stone with persistent pain, nausea Procedure: After informed consent was verified the patient was brought to the operating room and placed in a supine position. Anesthesia was administered per protocol. The patient was placed in a modified dorsal lithotomy position and prepped and draped in a sterile fashion. Safety pause time-out and side of surgery were confirmed. Images were available for review. Antibiotic administration confirmed. A 22 [place] cystoscope was inserted per urethra. The urethra was without aabnormality. The bladder was normal in its entirety. Both ureteric orifices were seen in normal position . The right ureteric orifice was cannulated and a retrograde examination was performed. Filling defects seen distal with proximal mild hydroureteronephrosis . A Sensor guidewire was placed up to the level of the renal pelvis under fluoroscopy. The rigid cystoscope was removed. A [place] dilator was placed over the Sensor guidewire and used to dilate the ureteric orifice under fluoroscopy. The dilator was removed. The semi rigid ureteral scope was placed alongside the Sensor guidewire. Stone fragments were removed from the ureter using a flat wire basket. Once the fragments were removed a decision was made to place a ureteric stent. Based on the height of the patient a 6 Fr x 24cm stent was used. The string was removed from the stent prior to placement A 6 [place] by 24 cm double-J stent was placed into the renal pelvis and bladder under a combination of fluoroscopy and direct visualization. The symphisis pubis was used as a radiographic marker to release the stent and good coil was seen within the bladder confirming position The bladder was emptied. The patient tolerated the procedure well and was extubated in the operating room. They were transferred in stable condition to the recovery area. Pathology: stones Drains: Double J stent as described above
[2022-10-01] MEDS: Phenazopyridine HCL 100 MG TABLET PO (13:25)
[2022-10-01] MEDS: Ketorolac Tromethamine 15 MG/ML VIAL IVPUSH (13:27)
[2022-10-01] MEDS: traMADoL HCL 50 MG TABLET PO (13:42)
--- NOTE | 2022-10-01 13:47 | PC.NURSE ---
OOB WITH ONE ASSIST. VOIDED IN BATHROOM. RIDE AWAITING IN FRONT. COLOR WNL. SMILING. NO PAIN OR NAUSEA AT THIS TIME.
--- NOTE | 2022-10-01 13:51 | PC.NURSE ---
PINK TINGED URINARY OUTPUT.
[2022-10-09 21:43] LABS: Stone Source URINE
== END 2022-10-01 12:30 | disposition home or self-care (01) ==
PROVIDERS: Emergency Medicine Emergency Medical Services; Urology; Emergency Provider Emergency Medicine; PCP Internal Medicine
PROC: (CPT 52330; principal; 2022-10-01 12:00)
DX: N39.0 Urinary tract infection, site not specified (principal); N13.2 Hydronephrosis with renal and ureteral calculous obstruction; K59.00 Constipation, unspecified; I10 Essential (primary) hypertension; R10.30 Lower abdominal pain, unspecified; Z79.899 Other long term (current) drug therapy; Z87.891 Personal history of nicotine dependence
CPT/HCPCS: 52330; 52352; 52332; 36415; 51798; 74176; 80053; 81001; 81025; 82365; 85025; 87086; 88300; 96361; 96374; 96375; 96376; 99285; C1758; C1769; C2617; J0696; J1100; J1170; J1885; J1956; J2250; J2270; J2405; J3010; Q9967

== ENCOUNTER → 2022-10-09 08:57 | Outpatient (BNVA) | payer OTHER, SELFPAY | PROVIDERS: PCP Internal Medicine; Visit Provider Urology | DX: N20.0 Calculus of kidney (principal); R10.11 Right upper quadrant pain; M54.6 Pain in thoracic spine | CPT/HCPCS: 52310; 99212 ==

== ENCOUNTER 2022-10-10 08:05 | Outpatient (REF) | payer OTHER, SELFPAY ==
--- NOTE | ~2022-10-10 | XR_ITS ---
EXAMINATION: XR THORACOLUMBAR SPINE CLINICAL INFORMATION: Thoracic spine pain for 2 months without injury. COMPARISON: None available. TECHNIQUE: AP and lateral views of the thoracic spine. FINDINGS: There is mild scoliosis of the thoracic spine convex right. No acute fracture is identified. Pedicles intact. No destructive bony lesion is noted. There is some disc space narrowing at the T8-T9 disc space level with mild spurring seen at multiple levels from T6 through T10. No abnormal paraspinal line bulge identified. XR/XR thoracic spine 2V IMPRESSION: Mild degenerative change and scoliosis without significant bony abnormality identified.
--- NOTE | ~2022-10-10 | US_ITS ---
EXAMINATION: US ABDOMEN COMPLETE CLINICAL INFORMATION: Right upper quadrant pain. COMPARISON: CT abdomen and pelvis 10/01/2022. TECHNIQUE: Real-time imaging of the abdominal viscera. FINDINGS: PANCREAS: Normal. ABDOMINAL AORTA: The proximal, mid, and distal segments are normal in caliber. INFERIOR VENA CAVA: Visualized portions are normal. LIVER: The liver is normal in size. The liver contour is normal. There is diffuse increased liver parenchymal echogenicity, consistent with hepatic steatosis. No focal hepatic lesion. There is no intrahepatic biliary duct dilatation seen. GALLBLADDER: Cholelithiasis without secondary evidence of cystitis. No pericholecystic fluid, gallbladder wall thickening or mural edema. There is adenomyomatosis of the gallbladder wall. COMMON BILE DUCT: Normal in caliber measuring 0.3 cm in diameter. RIGHT KIDNEY: Nonobstructing calculi in the lower pole measuring 3 mm and 4 mm. No hydronephrosis or focal parenchymal lesions. The kidney measures 11.7 cm in maximum dimension. LEFT KIDNEY: Nonobstructing calculi measuring 6 mm in the mid kidney and 4 mm in the lower pole. No hydronephrosis or focal parenchymal lesions. The kidney measures 11.0 cm in maximum dimension. SPLEEN: Normal. The spleen measures 9.3 cm in maximum dimension. FREE FLUID: None. US/US abdomen complete IMPRESSION: Cholelithiasis without secondary evidence of acute cystitis. Fatty liver. Bilateral nonobstructing renal calculi. No hydronephrosis.
== END 2022-10-10 08:06 | disposition home or self-care (01) ==
LOC: HO.US 08:05
PROVIDERS: PCP Internal Medicine; Visit Provider Nurse Practitioner
DX: R10.11 Right upper quadrant pain (principal); M54.6 Pain in thoracic spine
CPT/HCPCS: 72070; 76700

== ENCOUNTER → 2022-11-01 10:32 | Outpatient (BNVA) | payer OTHER, SELFPAY | PROVIDERS: PCP Internal Medicine; Referring Provider Internal Medicine; Visit Provider Nurse Practitioner | DX: K59.04 Chronic idiopathic constipation (principal); K30 Functional dyspepsia; K21.9 Gastro-esophageal reflux disease without esophagitis; K80.20 Calculus of gallbladder without cholecystitis without obstruction; M54.6 Pain in thoracic spine | CPT/HCPCS: 99212 ==

== ENCOUNTER 2022-11-18 15:51 | Emergency (ER) | payer OTHER, SELFPAY ==
--- NOTE | ~2022-11-18 | XR_ITS ---
EXAMINATION: XR CHEST CLINICAL INFORMATION: Chest pain for 4 days. COMPARISON: Chest radiograph 05/14/2022. TECHNIQUE: Frontal view of the chest was obtained. FINDINGS: Stable appearance of the cardiomediastinal silhouette. No focal airspace opacity, pleural effusion or pneumothorax. No acute osseous findings. The visualized upper abdomen is within normal limits. XR/XR chest 1V IMPRESSION: No acute cardiopulmonary findings.
--- NOTE | 2022-11-18 15:58 | ECG_ITS ---
Test Reason : CHEST PAIN Blood Pressure : / mmHG Vent. Rate : 060 BPM Atrial Rate : 060 BPM P-R Int : 138 ms QRS Dur : 086 ms QT Int : 406 ms P-R-T Axes : 029 042 011 degrees QTc Int : 406 ms Normal sinus rhythm Normal ECG When compared with ECG of 14-MAY-2022 14:59, No significant change was found Referred By: Generic ED Physician Electronically Signed By:Tristin Ortiz
[2022-11-18 16:14] VITALS: BP 139/73; PULSE 65; RESP 18; TEMP 36.2; O2SAT 99; BMI 40.4
--- NOTE | 2022-11-18 16:15 | ED_ITS ---
HPI - General Adult General Chief complaint: Chest Pain Stated complaint: chest pain Related Data Home Medications Medication Instructions Recorded Confirmed sertraline 100 mg tablet 100 mg PO DAILY 08/22/20 10/09/22 bupropion HCl 150 mg 24 hr tablet, 150 mg PO QAM 05/03/21 10/09/22 extended release Previous Rx's Medication Instructions Recorded lancets 28 gauge (FreeStyle #100 ea 06/27/20 Lancets) FreeStyle Lite Strips (blood sugar 4 strip miscellaneous QID 30 days 07/20/20 diagnostic) #100 strips miscellaneous medical supply 1 ea miscellaneous DAILY 99 days 01/03/21 #2 ea spironolactone 50 mg tablet 50 mg PO BID #60 tabs 01/05/22 ferrous sulfate 325 mg (65 mg 325 mg PO DAILY 30 days #30 tabs 04/04/22 iron) tablet (Feosol) hydroxyzine HCl 25 mg tablet See Rx Instructions .Route 04/04/22 .COMPLEX anxiety 30 days #180 tabs cyclobenzaprine 10 mg tablet 10 mg PO TID PRN muscle spasm #14 05/04/22 tabs ondansetron 4 mg disintegrating 4 mg PO Q8H PRN nausea and 05/04/22 tablet vomiting #10 tabs lidocaine 5 % topical patch 1 patch topical DAILY #15 ea 05/08/22 amlodipine 5 mg tablet (Norvasc) 5 mg PO DAILY #30 tabs 05/13/22 BEDSIDE COMMODE #1 ea 05/14/22 FRONT-WHEELED WALKER #1 ea 05/14/22 TUB SEAT with BACK #1 ea 05/14/22 labetalol 100 mg tablet 100 mg PO BID #180 tabs 06/21/22 dexlansoprazole 60 mg 60 mg PO DAILY #30 caps 09/19/22 capsule,biphase delayed release (Dexilant) linaclotide 145 mcg capsule 145 mcg PO QAM #30 caps 09/19/22 (Linzess) metoclopramide HCl 5 mg tablet 5 mg PO QIDACHS #120 tabs 09/19/22 (Reglan) naproxen 500 mg tablet 500 mg PO BID PRN pain 7 days #14 10/01/22 tabs tamsulosin 0.4 mg capsule 0.4 mg PO BEDTIME 14 days #14 caps 04/17/23 tramadol 50 mg tablet 50 mg PO Q6H PRN pain (scale score 10/01/22 1-3) #8 tabs gabapentin 400 mg capsule 400 mg PO TID 30 days #90 caps 10/17/22 ibuprofen 800 mg tablet (IBU) 800 mg PO Q8H PRN pain/headaches 11/13/22 30 days #90 tabs Allergies Allergy/AdvReac Type Severity Reaction Status Date / Time amoxicillin [AMOXICILLIN] Allergy Intermediate NAUSEA & Verified 11/19/22 11:05 VOMITING, stomach pain, vomiting, stomach upset topiramate [From TOPAMAX] Allergy Intermediate TREMORS, Verified 11/19/22 11:05 nausea and vomiting latex [LATEX] Allergy Mild RASH Verified 11/19/22 11:05 medroxyprogesterone Allergy Mild RASH Verified 11/19/22 11:05 [From PROVERA] lactose Allergy bloating , Verified 11/19/22 11:05 diarrhea PMFSH Past Medical History Medical History (Updated 11/19/22 @ 16:42 by DUSTY Cervantes) Anxiety Arthritis Carpal tunnel syndrome, bilateral Depression Depression Fibromyalgia Hyperlipemia Hypertension Insomnia Lower back pain Migraine Migraines Morbid obesity Morbid obesity with BMI of 40.0-44.9, adult Obesity Obesity (BMI 30-39.9) PCOS (polycystic ovarian syndrome) Polyuria Rheumatoid arthritis Second trimester Smoker Vulvar cyst Surgical History (Updated 11/19/22 @ 11:11 by Fabien Thompson MA) History of esophagogastroduodenoscopy (EGD) History of hip replacement, total History of removal of cyst History of tonsillectomy and adenoidectomy Family History Family History Father Medical history unknown Mother Diabetes Hypertension Maternal Aunt Breast cancer Ovarian cancer Mental health disorder Maternal Grandmother Diabetes Hypertension Social History Social History Household Members: Spouse and Children Housing: Condominium Alcohol intake: never Patient Tobacco Use Status: Former Tobacco user Tobacco use type: Cigarette Cigarettes Per Day: 3 e-Cigarette/Vaping Use: Never Used Second Hand Smoke Exposure: No Substance Use Type: Marijuana service: No Current occupational status: disabled Sexual orientation: Straight/Heterosexual Gender identity: Female Cognitive needs: No Hearing needs: No Vision needs: Yes Physical Exam ED Vital Signs: BMI result Body Mass Index 40.4 Course Course Course Narrative: RME: Chest pain for 3 days. NO recent surgery, travel, leg pain, or calf pain. labs and EKG and xray ordered Reevaluation(s) Reevaluation #1: Patient left without being evaluated in the ED by provider in the ED Medical Decision Making Lab Data 11/18/22 17:42 11/18/22 17:42 Labs: Lab Results 11/18/22 11/18/22 11/18/22 Range/Units 17:42 17:42 17:42 WBC 6.7 (4.8-10.8) X10*3/uL RBC 3.79 L (4.20-5.50) X10*6/uL Hgb 9.6 L (12.0-16.0) g/dl Hct 30.7 L (37.0-47.0) % MCV 81.0 (80.0-98.0) fL MCH 25.3 L (27.0-33.0) pg MCHC 31.3 (31.0-35.0) g/dl RDW 16.9 H (11.0-16.0) % Plt Count 318 (160-400) X10*3/uL MPV 11.5 (9.4-12.3) fL Immature Gran % (Auto) 0.3 (0.0-0.4) % Neut % (Auto) 55.2 (45-73) % Lymph % (Auto) 30.0 (20-40) % [place] % (Auto) 10.4 (2-11) % Eos % (Auto) 3.5 (0-4) % Baso % (Auto) 0.6 (0-2) % Lymph # (Auto) 2.0 (1.2-4.9) X10*3/uL [place] # (Auto) 0.7 (0.1-1.2) X10*3/uL Eos # (Auto) 0.2 (0.0-0.4) X10*3/uL Baso # (Auto) 0.0 (0.0-0.2) X10*3/uL Abs Immat Gran (auto) 0.02 (0.00-0.03) X10*3/uL Absolute Neuts (auto) 3.7 (2.0-8.3) x10*3/uL Absolute Nucleated RBC 0.000 (0.0-0.012) X10*3/uL Nucleated RBC % (auto) 0.0 (0.0-0.2) /100WBC PT 11.8 (10.0-13.1) SEC INR 1.0 (0.9-1.1) APTT 30.3 (26.0-36.4) SEC Sodium 144 (135-145) mmol/L Potassium 4.0 (3.3-5.1) mmol/L Chloride 111 H (96-108) mmol/L Carbon Dioxide 25 (22-29) mmol/L Anion Gap 12 (12-20) BUN 8 L (9-16) mg/dL Creatinine 0.61 (0.5-1.4) mg/dL Estim Creat Clear Calc 141.0 Estimated GFR > 60 Random Glucose 94 (60-115) mg/dL Calcium 8.8 (8.4-10.2) mg/dL Total Bilirubin 0.2 (0.0-1.0) mg/dL AST 11 (5-31) U/L ALT 10 (0-31) U/L Alkaline Phosphatase 81 (39-117) U/L Troponin I High Sens (<3.5-17.0) ng/L B-Natriuretic Peptide (<100) pg/mL Total Protein 6.6 (6.5-8.0) g/dL Albumin 3.8 (3.5-5.0) g/dL Beta HCG, Quant < 2 mIU/mL 11/18/22 11/18/22 Range/Units 17:42 17:42 WBC (4.8-10.8) X10*3/uL RBC (4.20-5.50) X10*6/uL Hgb (12.0-16.0) g/dl Hct (37.0-47.0) % MCV (80.0-98.0) fL MCH (27.0-33.0) pg MCHC (31.0-35.0) g/dl RDW (11.0-16.0) % Plt Count (160-400) X10*3/uL MPV (9.4-12.3) fL Immature Gran % (Auto) (0.0-0.4) % Neut % (Auto) (45-73) % Lymph % (Auto) (20-40) % [place] % (Auto) (2-11) % Eos % (Auto) (0-4) % Baso % (Auto) (0-2) % Lymph # (Auto) (1.2-4.9) X10*3/uL [place] # (Auto) (0.1-1.2) X10*3/uL Eos # (Auto) (0.0-0.4) X10*3/uL Baso # (Auto) (0.0-0.2) X10*3/uL Abs Immat Gran (auto) (0.00-0.03) X10*3/uL Absolute Neuts (auto) (2.0-8.3) x10*3/uL Absolute Nucleated RBC (0.0-0.012) X10*3/uL Nucleated RBC % (auto) (0.0-0.2) /100WBC PT (10.0-13.1) SEC INR (0.9-1.1) APTT (26.0-36.4) SEC Sodium (135-145) mmol/L Potassium (3.3-5.1) mmol/L Chloride (96-108) mmol/L Carbon Dioxide (22-29) mmol/L Anion Gap (12-20) BUN (9-16) mg/dL Creatinine (0.5-1.4) mg/dL Estim Creat Clear Calc Estimated GFR Random Glucose (60-115) mg/dL Calcium (8.4-10.2) mg/dL Total Bilirubin (0.0-1.0) mg/dL AST (5-31) U/L ALT (0-31) U/L Alkaline Phosphatase (39-117) U/L Troponin I High Sens < 2.7 (<3.5-17.0) ng/L B-Natriuretic Peptide 70 (<100) pg/mL Total Protein (6.5-8.0) g/dL Albumin (3.5-5.0) g/dL Beta HCG, Quant mIU/mL Discharge Plan Discharge Clinical Impression: Chest pain Patient Disposition: Elopement Instructions: Chest Pain (ED) Prescriptions: No Action FreeStyle Lite Strips Strip 4 strip miscellaneous QID 30 Days Qty: 100 1RF (DME) FRONT-WHEELED WALKER See Rx Instructions .Route .MEDSUPPLY Qty: 1 0RF Rx Instructions: As directed (DME) TUB SEAT with BACK See Rx Instructions .Route .MEDSUPPLY Qty: 1 0RF Rx Instructions: As directed (DME) BEDSIDE COMMODE See Rx Instructions .Route .MEDSUPPLY Qty: 1 0RF Rx Instructions: As directed labetalol 100 mg tablet 100 mg PO BID Qty: 180 1RF gabapentin 400 mg capsule 400 mg PO TID 30 Days Qty: 90 3RF Rx Instructions: 1 capsule Orally Three times a day ibuprofen [IBU] 800 mg tablet 800 mg PO Q8H PRN (Reason: pain/headaches) 30 Days Qty: 90 0RF Rx Instructions: Take with food cyclobenzaprine 10 mg tablet 10 mg PO TID PRN (Reason: muscle spasm) Qty: 14 0RF ondansetron 4 mg tablet,disintegrating 4 mg PO Q8H PRN (Reason: nausea and vomiting) Qty: 10 0RF amlodipine [Norvasc] 5 mg tablet 5 mg PO DAILY Qty: 30 0RF tramadol 50 mg tablet 50 mg PO Q6H PRN (Reason: pain (scale score 1-3)) Qty: 8 0RF tamsulosin 0.4 mg capsule 0.4 mg PO BEDTIME 14 Days Qty: 14 0RF naproxen 500 mg tablet 500 mg PO BID PRN (Reason: pain) 7 Days Qty: 14 0RF miscellaneous medical supply Misc 1 ea miscellaneous DAILY 99 Days Qty: 2 0RF sertraline 100 mg tablet 100 mg PO DAILY ferrous sulfate [Feosol] 325 mg (65 mg iron) tablet 325 mg PO DAILY 30 Days Qty: 30 5RF hydroxyzine HCl 25 mg tablet See Rx Instructions .ROUTE .COMPLEX 30 Days Qty: 180 3RF Rx Instructions: 1 to 2 tablets 3 times a day as needed for anxiety; lidocaine 5 % adhesive patch,medicated 1 patch topical DAILY Qty: 15 0RF Rx Instructions: leave on most painful area for up to 12 hrs (DME) lancets [FreeStyle Lancets] 28 gauge misc See Rx Instructions .ROUTE .MEDSUPPLY Qty: 100 1RF Rx Instructions: 4 times/day bupropion HCl 150 mg tablet extended release 24 hr 150 mg PO QAM spironolactone 50 mg tablet 50 mg PO BID Qty: 60 5RF Dexilant 60 mg capsule,biphase delayed releas 60 mg PO DAILY Qty: 30 6RF metoclopramide HCl [Reglan] 5 mg tablet 5 mg PO QIDACHS Qty: 120 6RF Linzess 145 mcg capsule 145 mcg PO QAM Qty: 30 6RF Interventions: LISA Worksheet Last Done: 11/18/22 17:55 Discharge Date/Time: 11/18/22 19:49
[2022-11-18 17:47] LABS: MANUAL DIFF FLAG NO
[2022-11-18 17:56] LABS: Prothrombin Time 11.8 SEC (10.0-13.1)
[2022-11-18 17:59] LABS: Partial Thromboplastin Time 30.3 SEC (26.0-36.4)
[2022-11-18 18:11] LABS: Basophils Percent Auto 0.6 % (0-2); Eosinophils Absolute Auto 0.2 X10*3/uL (0.0-0.4); Eosinophils Percent Auto 3.5 % (0-4); Hematocrit 30.7 % (37.0-47.0); Hemoglobin 9.6 g/dl (12.0-16.0); Imm Gran Abs Auto 0.02 X10*3/uL (0.00-0.03); Imm Gran Pct Auto 0.3 % (0.0-0.4); Mean Corpuscular HGB Conc 31.3 g/dl (31.0-35.0); Mean Corpuscular Hemoglobin 25.3 pg (27.0-33.0); Mean Platelet Volume 11.5 fL (9.4-12.3); Monocytes Absolute Auto 0.7 X10*3/uL (0.1-1.2); Monocytes Percent Auto 10.4 % (2-11); Neutrophils Absolute Auto 3.7 x10*3/uL (2.0-8.3); Neutrophils Percent Auto 55.2 % (45-73); Platelet Count 318 X10*3/uL (160-400); Red Blood Count 3.79 X10*6/uL (4.20-5.50); Red Cell Distribution Width 16.9 % (11.0-16.0); White Blood Count 6.7 X10*3/uL (4.8-10.8)
[2022-11-18 18:12] LABS: B Type Natriuretic Peptide 70 pg/mL (<100)
[2022-11-18 18:16] LABS: Alanine Aminotransferase 10 U/L (0-31); Albumin Level 3.8 g/dL (3.5-5.0); Alkaline Phosphatase 81 U/L (39-117); Anion Gap 12 (12-20); Aspartate Amino Transferase 11 U/L (5-31); Bilirubin Total 0.2 mg/dL (0.0-1.0); Blood Urea Nitrogen 8 mg/dL (9-16); Calcium 8.8 mg/dL (8.4-10.2); Carbon Dioxide 25 mmol/L (22-29); Chloride 111 mmol/L (96-108); Estimated Glomerular Filt Rate > 60; Glucose Random 94 mg/dL (60-115); HCG Quantitative < 2 mIU/mL; Sodium 144 mmol/L (135-145); Total Protein 6.6 g/dL (6.5-8.0); Troponin-I High Sensitivity < 2.7 ng/L (<3.5-17.0)
== END 2022-11-18 19:49 | disposition left against medical advice (07) ==
PROVIDERS: Physician Assistant; Emergency Provider Emergency Medicine; PCP Internal Medicine
DX: R07.89 Other chest pain (principal); R06.02 Shortness of breath; Z87.891 Personal history of nicotine dependence; Z79.899 Other long term (current) drug therapy
CPT/HCPCS: 36415; 71045; 80053; 83880; 84484; 84702; 85025; 85610; 85730; 93005; 99283

== ENCOUNTER 2022-12-19 10:36 | Emergency (ER) | payer OTHER, SELFPAY ==
[2022-12-19 10:44] VITALS: BP 159/76; PULSE 68; RESP 20; TEMP 36.5; O2SAT 100; BMI 39.3
[2022-12-19 12:02] VITALS: BP 135/84; PULSE 60; RESP 14; TEMP 36.9; O2SAT 100
--- NOTE | 2022-12-19 12:45 | ED.CHESTPAIN ---
HPI - Chest Pain General Chief Complaint: Chest Pain Stated Complaint: CP Since Last Night 12/18/22 Time Seen by Provider: 12/19/22 12:45 Source: patient Mode of arrival: ambulatory Limitations: no limitations History of Present Illness HPI narrative: Patient is a 32 year old assigned female at with a history of depression, anxiety, atypical chest pain, PCOS, HTN, and fibromyalgia presenting to the emergency department today with an acute episode of her chronic midsternal chest pain. Patient states that over the last 2 years she has had midsternal chest pain that radiates down her left side and today she is having another episode. Patient denies any dizziness, lightheadedness, abdominal pain, nausea, vomiting, fever, chills, blurry vision, double vision, loss of vision, difficulty breathing, shortness of breath, back pain, night sweats, pain with urination, increased urinary frequency, increased urinary urgency, blood in her urine or stool, syncope or a near syncopal episode, recent trauma or falls, bowel incontinence, bladder incontinence, bowel retention, bladder retention, or any other complaints at this time. MD complaint: chest pain Onset (ago): year(s) (2) Timing of current episode: episodic Prior episodes: Yes Pain location: substernal Pain radiation: left arm Severity: mild Pain scale (0-10): 3 Quality: aching Relieving factors: nothing Exacerbating factors: movement Treatment prior to arrival: none Related Data Home Medications Medication Instructions Recorded Confirmed sertraline 100 mg tablet 100 mg PO DAILY 08/22/20 10/09/22 bupropion HCl 150 mg 24 hr tablet, 150 mg PO QAM 05/03/21 10/09/22 extended release Previous Rx's Medication Instructions Recorded lancets 28 gauge (FreeStyle #100 ea 06/27/20 Lancets) FreeStyle Lite Strips (blood sugar 4 strip miscellaneous QID 30 days 07/20/20 diagnostic) #100 strips miscellaneous medical supply 1 ea miscellaneous DAILY 99 days 01/03/21 #2 ea spironolactone 50 mg tablet 50 mg PO BID #60 tabs 01/05/22 ferrous sulfate 325 mg (65 mg 325 mg PO DAILY 30 days #30 tabs 04/04/22 iron) tablet (Feosol) hydroxyzine HCl 25 mg tablet See Rx Instructions .Route 04/04/22 .COMPLEX anxiety 30 days #180 tabs cyclobenzaprine 10 mg tablet 10 mg PO TID PRN muscle spasm #14 05/04/22 tabs ondansetron 4 mg disintegrating 4 mg PO Q8H PRN nausea and 05/04/22 tablet vomiting #10 tabs lidocaine 5 % topical patch 1 patch topical DAILY #15 ea 05/08/22 amlodipine 5 mg tablet (Norvasc) 5 mg PO DAILY #30 tabs 05/13/22 BEDSIDE COMMODE #1 ea 05/14/22 FRONT-WHEELED WALKER #1 ea 05/14/22 TUB SEAT with BACK #1 ea 05/14/22 labetalol 100 mg tablet 100 mg PO BID #180 tabs 06/21/22 dexlansoprazole 60 mg 60 mg PO DAILY #30 caps 09/19/22 capsule,biphase delayed release (Dexilant) linaclotide 145 mcg capsule 145 mcg PO QAM #30 caps 09/19/22 (Linzess) metoclopramide HCl 5 mg tablet 5 mg PO QIDACHS #120 tabs 09/19/22 (Reglan) naproxen 500 mg tablet 500 mg PO BID PRN pain 7 days #14 10/01/22 tabs tamsulosin 0.4 mg capsule 0.4 mg PO BEDTIME 14 days #14 caps 10/01/22 tramadol 50 mg tablet 50 mg PO Q6H PRN pain (scale score 10/01/22 1-3) #8 tabs gabapentin 400 mg capsule 400 mg PO TID 30 days #90 caps 10/17/22 ibuprofen 800 mg tablet (IBU) 800 mg PO Q8H PRN pain/headaches 11/13/22 30 days #90 tabs cyclobenzaprine 5 mg tablet 5 mg PO TID PRN muscle spasm 7 12/19/22 days #21 tabs Allergies Allergy/AdvReac Type Severity Reaction Status Date / Time amoxicillin [AMOXICILLIN] Allergy Intermediate NAUSEA & Verified 12/19/22 10:47 VOMITING, stomach pain, vomiting, stomach upset topiramate [From TOPAMAX] Allergy Intermediate TREMORS, Verified 12/19/22 10:47 nausea and vomiting latex [LATEX] Allergy Mild RASH Verified 12/19/22 10:47 medroxyprogesterone Allergy Mild RASH Verified 12/19/22 10:47 [From PROVERA] lactose Allergy bloating , Verified 11/19/22 11:05 diarrhea Review of Systems Constitutional: Constitutional: Reports no additional constitutional complaints, Denies chills, Denies fever(s) and Denies night sweats Eyes: Eyes: Reports no additional eye complaints, Denies blurry vision, Denies change in vision, Denies diplopia, Denies eye discharge, Denies loss of vision and Denies eye pain ENT: Denies dizziness Cardiovascular: Cardiovascular: Reports no additional cardiovascular complaints, Reports chest pain, Denies lightheadedness, Denies Loss of Consciousness and Denies dyspnea Respiratory: Respiratory: Reports no additional respiratory complaints and Denies dyspnea Gastrointestinal: Gastrointestinal: Reports no additional gastrointestinal complaints, Denies abdominal pain, Denies melena, Denies hematochezia, Denies change in bowel habits and Denies change in stool character Genitourinary: Genitourinary: Denies hematuria, Denies urinary frequency, Denies dysuria, Denies urinary incontinence, Denies urinary hesitancy and Denies urinary urgency Musculoskeletal: Musculoskeletal: Reports no additional musculoskeletal complaints, Denies numbness and Denies tingling Neurologic: Denies dizziness, Denies loss of vision, Denies numbness and Denies tingling Psychiatric: Psychiatric: Reports no additional psychiatric complaints Endocrine: Endocrine: Reports no additional endocrine complaints Hematologic/Lymphatic: Hematologic/Lymphatic: Reports no additional hematologic/lymphatic complaints Allergic/Immunologic: Allergic/Immunologic: Reports no additional allergic/immunologic complaints [facility] Past Medical History Attestation statement: The following information was validated with the patient. Source: old records reviewed and nursing notes reviewed Medical History Anxiety Arthritis Carpal tunnel syndrome, bilateral Depression Depression Fibromyalgia Hyperlipemia Hypertension Insomnia Lower back pain Migraine Migraines Morbid obesity Morbid obesity with BMI of 40.0-44.9, adult Obesity Obesity (BMI 30-39.9) PCOS (polycystic ovarian syndrome) Polyuria Rheumatoid arthritis Second trimester Smoker Vulvar cyst Surgical History History of esophagogastroduodenoscopy (EGD) History of hip replacement, total History of removal of cyst History of tonsillectomy and adenoidectomy Family History Family History Father Medical history unknown Mother Diabetes Hypertension Maternal Aunt Breast cancer Ovarian cancer Mental health disorder Maternal Grandmother Diabetes Hypertension Social History Social History Household Members: Spouse and Children Housing: Condominium Alcohol intake: never Patient Tobacco Use Status: Former Tobacco user Tobacco use type: Cigarette Cigarettes Per Day: 3 Smoked in Last 30 Days: Yes e-Cigarette/Vaping Use: Never Used Second Hand Smoke Exposure: No Use of substances other than those prescribed or required for medical reasons: No Substance Use Type: Marijuana Substance Use Frequency: Daily Advance Directives: No Advance Directives Information Provided: Yes service: No Current occupational status: disabled Sexual orientation: Straight/Heterosexual Gender identity: Female Cognitive needs: No Hearing needs: No Vision needs: Yes Physical Exam Vital Signs: Vital Signs: Last Vital Signs Temp 98.4 F 12/19/22 12:02 Pulse 60 12/19/22 12:02 Resp 14 12/19/22 12:02 BP 135/84 12/19/22 12:02 Pulse Ox 100 12/19/22 12:02 O2 Del Method Room Air 12/19/22 12:02 BMI result Body Mass Index 39.3 Const: General: cooperative, no acute distress, alert and awake Nutritional Appearance: well nourished Orientation/consciousness: patient oriented x3 Limitations: no limitations HEENT: Head: Yes normal to inspection and Yes atraumatic Ears: hearing grossly normal bilaterally and external ears normal General nose exam: Normal external nose present, no nasal discharge noted and no epistaxis Face and sinus: Yes normal facial exam, No abrasion and No laceration Mouth: Normal oral and palatal mucosa present, no drooling and no muffled voice Eyes: General: appearance normal, both eyes and all related structures Periorbital: periorbital findings normal Eyelids: Yes eyelids normal Conjunctivae: conjunctivae normal Pupils: Equal, round and reactive pupils present EOM: EOMs intact bilaterally Neck: Neck: Yes normal visual inspection, Yes full ROM and Yes no lymphadenopathy Chest: Chest palpation & inspection: normal inspection of the chest Resp: Effort & Inspection: normal respiratory effort and able to speak in complete sentences Auscultation: clear to auscultation bilaterally Cardio: Rate: regular rate Rhythm: regular rhythm GI: Inspection: Yes normal to inspection Palpation (GI): Soft to palpation, not firm, nontender and no guarding Neuro: General: patient oriented x3 and moves all extremities Cranial nerves: Yes Equal, round and reactive pupils present Cognition (Neuro): normal cognition Motor exam (neuro): 5/5 motor strength present throughout Sensory Exam: Normal double simultaneous stimulation for sensation Coordination: [id number] test normal Extrem: General: Yes normal to inspection, Yes full ROM and Yes capillary refill normal Psych: Appearance: grossly normal Mental Status: mental status grossly normal Affect: normal affect Attitude: cooperative Thought process: Normal thought process present Thought content: Normal thought content present Insight: Good insight present (Psych) Medications Administered Discontinued Medications Generic Name Dose Route Start Last Admin Trade Name Freq PRN Reason Stop Dose Admin Cyclobenzaprine HCl 5 mg 12/19/22 12:51 12/19/22 13:07 Cyclobenzaprine Hcl 5 Mg Tablet PO 12/19/22 12:52 5 mg ONCE ONE Administration Medical Decision Making Medical Decision Making [facility] Narrative: Patient is a 32 year old assigned female at with a history depression, anxiety, atypical chest pain, PCOS, HTN, and fibromyalgia presenting to the emergency department today with chest pain. Patient's physical exam was unremarkable. Patient's blood work was unremarkable. Patient's urine showed no acute process. Patient's EKG was unremarkable. Patient's chest x-ray showed no acute process. I explained my physical exam findings as well as all test results to the patient. I answered all questions asked by the patient. I stressed the importance of the patient taking her medication as prescribed. I stressed the importance of the patient following up with her primary care provider. I stressed the importance of the patient returning to the emergency department immediately if her symptoms were to worsen or if she were to develop any dizziness, shortness of breath, difficulty breathing, chest pain, blurry vision, loss of vision, nausea, vomiting, abdominal pain, fever, chills, back pain, or any other complaints. Patient verbalized agreement and understanding with this treatment plan and discharge. Differential Diagnosis Differential Diagnoses: The differential diagnosis associated with the presentation includes Chest pain Atypical chest pain Chest wall pain Costchondritis NSTEMI STEMI Angina Admission/Observation Consideration of admission/observation: Escalation of care including admission/observation considered Patient would have been admitted to the hospital had her work up had any findings where hospital admission was appropriate and her clinical presentation warranted hospital admission. Lab Data [facility] Lab Attestation statement: I reviewed the patient's lab results. My interpretation of these studies and their corresponding values is that they are grossly normal. 12/19/22 10:55 12/19/22 10:55 Labs: Lab Results 12/19/22 12/19/22 12/19/22 Range/Units 10:55 10:55 10:55 WBC 6.1 (4.8-10.8) X10*3/uL RBC 3.70 L (4.20-5.50) X10*6/uL Hgb 9.5 L (12.0-16.0) g/dl Hct 30.1 L (37.0-47.0) % MCV 81.4 (80.0-98.0) fL MCH 25.7 L (27.0-33.0) pg MCHC 31.6 (31.0-35.0) g/dl RDW 16.4 H (11.0-16.0) % Plt Count 292 (160-400) X10*3/uL MPV 10.6 (9.4-12.3) fL Immature Gran % (Auto) 0.3 (0.0-0.4) % Neut % (Auto) 52.8 (45-73) % Lymph % (Auto) 33.1 (20-40) % [place] % (Auto) 9.5 (2-11) % Eos % (Auto) 3.6 (0-4) % Baso % (Auto) 0.7 (0-2) % Lymph # (Auto) 2.0 (1.2-4.9) X10*3/uL [place] # (Auto) 0.6 (0.1-1.2) X10*3/uL Eos # (Auto) 0.2 (0.0-0.4) X10*3/uL Baso # (Auto) 0.0 (0.0-0.2) X10*3/uL Abs Immat Gran (auto) 0.02 (0.00-0.03) X10*3/uL Absolute Neuts (auto) 3.2 (2.0-8.3) x10*3/uL Absolute Nucleated RBC 0.000 (0.0-0.012) X10*3/uL Nucleated RBC % (auto) 0.0 (0.0-0.2) /100WBC Sodium 144 (135-145) mmol/L Potassium 4.3 (3.3-5.1) mmol/L Chloride 112 H (96-108) mmol/L Carbon Dioxide 25 (22-29) mmol/L Anion Gap 11 L (12-20) BUN 7 L (9-16) mg/dL Creatinine 0.62 (0.5-1.4) mg/dL Estim Creat Clear Calc 135.3 Estimated GFR > 60 Random Glucose 90 (60-115) mg/dL Calcium 9.0 (8.4-10.2) mg/dL Total Bilirubin 0.4 (0.0-1.0) mg/dL Direct Bilirubin 0.1 (0.0-0.5) mg/dL AST 15 (5-31) U/L ALT 11 (0-31) U/L Alkaline Phosphatase 76 (39-117) U/L Troponin I High Sens < 2.7 (<3.5-17.0) ng/L Total Protein 6.7 (6.5-8.0) g/dL Albumin 3.7 (3.5-5.0) g/dL Lipase 14 (8-78) U/L Urine Color Urine Appearance Urine pH (5.0-9.0) Ur Specific [place] (1.005-1.025) Urine Protein (Neg-Trace) mg/dL Urine Glucose (UA) (Negative) mg/dL Urine Ketones (Negative) mg/dL Urine Blood (Negative) Urine Nitrite (Negative) Ur Leukocyte Esterase (Negative) Urine RBC (0-2) /HPF Urine WBC (0-5) /HPF Ur Squamous Epith Cells (0-2) /HPF Urine Bacteria (None Seen) Hyaline Casts (0-2) /LPF Urine Test (NEGATIVE) 12/19/22 12/19/22 Range/Units 12:06 12:06 WBC (4.8-10.8) X10*3/uL RBC (4.20-5.50) X10*6/uL Hgb (12.0-16.0) g/dl Hct (37.0-47.0) % MCV (80.0-98.0) fL MCH (27.0-33.0) pg MCHC (31.0-35.0) g/dl RDW (11.0-16.0) % Plt Count (160-400) X10*3/uL MPV (9.4-12.3) fL Immature Gran % (Auto) (0.0-0.4) % Neut % (Auto) (45-73) % Lymph % (Auto) (20-40) % [place] % (Auto) (2-11) % Eos % (Auto) (0-4) % Baso % (Auto) (0-2) % Lymph # (Auto) (1.2-4.9) X10*3/uL [place] # (Auto) (0.1-1.2) X10*3/uL Eos # (Auto) (0.0-0.4) X10*3/uL Baso # (Auto) (0.0-0.2) X10*3/uL Abs Immat Gran (auto) (0.00-0.03) X10*3/uL Absolute Neuts (auto) (2.0-8.3) x10*3/uL Absolute Nucleated RBC (0.0-0.012) X10*3/uL Nucleated RBC % (auto) (0.0-0.2) /100WBC Sodium (135-145) mmol/L Potassium (3.3-5.1) mmol/L Chloride (96-108) mmol/L Carbon Dioxide (22-29) mmol/L Anion Gap (12-20) BUN (9-16) mg/dL Creatinine (0.5-1.4) mg/dL Estim Creat Clear Calc Estimated GFR Random Glucose (60-115) mg/dL Calcium (8.4-10.2) mg/dL Total Bilirubin (0.0-1.0) mg/dL Direct Bilirubin (0.0-0.5) mg/dL AST (5-31) U/L ALT (0-31) U/L Alkaline Phosphatase (39-117) U/L Troponin I High Sens (<3.5-17.0) ng/L Total Protein (6.5-8.0) g/dL Albumin (3.5-5.0) g/dL Lipase (8-78) U/L Urine Color Yellow Urine Appearance Clear Urine pH 7.5 (5.0-9.0) Ur Specific [place] <= 1.005 (1.005-1.025) Urine Protein Negative (Neg-Trace) mg/dL Urine Glucose (UA) Negative (Negative) mg/dL Urine Ketones Negative (Negative) mg/dL Urine Blood Large (3+) H (Negative) Urine Nitrite Negative (Negative) Ur Leukocyte Esterase Small (1+) H (Negative) Urine RBC 0-2 (0-2) /HPF Urine WBC 0-5 (0-5) /HPF Ur Squamous Epith Cells 3-5 (0-2) /HPF Urine Bacteria Trace (None Seen) Hyaline Casts 0-2 (0-2) /LPF Urine Test NEGATIVE (NEGATIVE) Independent Interpretation I performed an independent interpretation of an: EKG and Plain X-Ray Interpretation: My interpretation is in agreement with the radiologist's impression of this imaging study. EXAMINATION: XR CHEST CLINICAL INFORMATION: Chest COMPARISON: Chest radiograph yesterday TECHNIQUE: 2 views of the chest were obtained. FINDINGS: No significant abnormality is noted involving the heart, lungs, mediastinum, bony thorax or soft tissues. There is been no interval change compared to yesterday's exam. XR/XR chest 2V IMPRESSION: Normal exam, unchanged from yesterday. Dictated By: Cristian Merchant MD Signed By: Electronically signed by Cristian Merchant MD 12/19/22 1152 Vent. Rate: 064 BPM ? ? Atrial Rate: 064 BPM P-R Int: 144 ms? QRS Dur: 086 ms QT Int: 392 ms ? ? ? P-R-T Axes: 031 027 -05 degrees QTc Int: 404 ms ? Normal sinus rhythm Normal ECG When compared with ECG of 18-NOV-2022 16:01, No significant change was found ? Electronically Signed By:JULITO CHAVARRIA Dictated By: Julito Chavarria MD Signed By: Electronically signed by Julito Chavarria MD 12/19/22 1128 Radiology Impression Discussion of test interpretation with radiology: I have reviewed the radiologist's reading. External Record Review External record reviewed: Other (reviewed all previous ED visits and previous ED imaging) Tests considered The following testing was considered but not selected: Considered a d dimer however, the patient was not tachycardic or hypoxic and did not have any other PE risk factors. Chronic Conditions Patient?s care impacted by: Hypertension Discharge Plan Discharge Clinical Impression: Chest wall pain Patient Disposition: Home, Self-Care Instructions: Chest Wall Pain (ED) Additional Instructions: Follow up with your primary care provider. Return to the emergency department immediately if your symptoms worsen or if you develop any dizziness, shortness of breath, difficulty breathing, chest pain, blurry vision, loss of vision, nausea, vomiting, abdominal pain, fever, chills, back pain, or any other complaints. Prescriptions: New cyclobenzaprine 5 mg tablet 5 mg PO TID PRN (Reason: muscle spasm) 7 Days Qty: 21 0RF No Action FreeStyle Lite Strips Strip 4 strip miscellaneous QID 30 Days Qty: 100 1RF (DME) FRONT-WHEELED WALKER See Rx Instructions .Route .MEDSUPPLY Qty: 1 0RF Rx Instructions: As directed (DME) TUB SEAT with BACK See Rx Instructions .Route .MEDSUPPLY Qty: 1 0RF Rx Instructions: As directed (DME) BEDSIDE COMMODE See Rx Instructions .Route .MEDSUPPLY Qty: 1 0RF Rx Instructions: As directed labetalol 100 mg tablet 100 mg PO BID Qty: 180 1RF gabapentin 400 mg capsule 400 mg PO TID 30 Days Qty: 90 3RF Rx Instructions: 1 capsule Orally Three times a day ibuprofen [IBU] 800 mg tablet 800 mg PO Q8H PRN (Reason: pain/headaches) 30 Days Qty: 90 0RF Rx Instructions: Take with food cyclobenzaprine 10 mg tablet 10 mg PO TID PRN (Reason: muscle spasm) Qty: 14 0RF ondansetron 4 mg tablet,disintegrating 4 mg PO Q8H PRN (Reason: nausea and vomiting) Qty: 10 0RF amlodipine [Norvasc] 5 mg tablet 5 mg PO DAILY Qty: 30 0RF tramadol 50 mg tablet 50 mg PO Q6H PRN (Reason: pain (scale score 1-3)) Qty: 8 0RF tamsulosin 0.4 mg capsule 0.4 mg PO BEDTIME 14 Days Qty: 14 0RF naproxen 500 mg tablet 500 mg PO BID PRN (Reason: pain) 7 Days Qty: 14 0RF miscellaneous medical supply Misc 1 ea miscellaneous DAILY 99 Days Qty: 2 0RF sertraline 100 mg tablet 100 mg PO DAILY ferrous sulfate [Feosol] 325 mg (65 mg iron) tablet 325 mg PO DAILY 30 Days Qty: 30 5RF hydroxyzine HCl 25 mg tablet See Rx Instructions .ROUTE .COMPLEX 30 Days Qty: 180 3RF Rx Instructions: 1 to 2 tablets 3 times a day as needed for anxiety; lidocaine 5 % adhesive patch,medicated 1 patch topical DAILY Qty: 15 0RF Rx Instructions: leave on most painful area for up to 12 hrs (DME) lancets [FreeStyle Lancets] 28 gauge misc See Rx Instructions .ROUTE .MEDSUPPLY Qty: 100 1RF Rx Instructions: 4 times/day bupropion HCl 150 mg tablet extended release 24 hr 150 mg PO QAM spironolactone 50 mg tablet 50 mg PO BID Qty: 60 5RF Dexilant 60 mg capsule,biphase delayed releas 60 mg PO DAILY Qty: 30 6RF metoclopramide HCl [Reglan] 5 mg tablet 5 mg PO QIDACHS Qty: 120 6RF Linzess 145 mcg capsule 145 mcg PO QAM Qty: 30 6RF Referrals: Jarrod Sherman MD [Primary Care Provider] - Interventions: ED Discharge Assessment Last Done: 12/19/22 13:41 Discharge Date/Time: 12/19/22 13:41 Print Language: [place]
== END 2022-12-19 13:41 | disposition home or self-care (01) ==
PROVIDERS: Emergency Provider Emergency Medicine; PCP Internal Medicine
DX: R07.89 Other chest pain (principal); I10 Essential (primary) hypertension; E78.5 Hyperlipidemia, unspecified; E66.9 Obesity, unspecified; Z68.39 Body mass index [BMI] 39.0-39.9, adult; Z87.891 Personal history of nicotine dependence; Z79.899 Other long term (current) drug therapy
CPT/HCPCS: 36415; 71046; 80048; 80076; 81001; 81025; 83690; 84484; 85025; 87086; 93005; 99283; 99285

== ENCOUNTER 2022-12-22 12:48 | Emergency (ER) | payer OTHER, SELFPAY ==
[2022-12-22] VITALS (7 sets, daily range): BP systolic 113–140; BP diastolic 57–85; PULSE 56–77; RESP 12–17; TEMP 36.5–36.8; O2SAT 98–100; BMI 40.2
[2022-12-22 14:07] LABS: Anion Gap 13 (12-20); Blood Urea Nitrogen 10 mg/dL (9-16); Calcium 9.3 mg/dL (8.4-10.2); Carbon Dioxide 23 mmol/L (22-29); Chloride 111 mmol/L (96-108); Creatinine Clr Calc Pharmacy 126.9; Estimated Glomerular Filt Rate > 60; Glucose Random 102 mg/dL (60-115); Potassium 4.1 mmol/L (3.3-5.1); Sodium 143 mmol/L (135-145)
--- NOTE | 2022-12-22 14:43 | ED_ITS ---
HPI - Chest Pain General Chief Complaint: Chest Pain Stated Complaint: CHEST PAIN Time Seen by Provider: 12/22/22 14:21 Source: patient and RN notes reviewed Mode of arrival: EMS Limitations: no limitations History of Present Illness HPI narrative: This is a 32-year-old female, with a past medical history of depression, anxiety, atypical chest pain, PCOS, HTN, and fibromyalgia, presenting to the emergency department for evaluation of left-sided chest pain x3 days. Patient reports that her chest pain is episodic, and is a pressure-like feeling that is constant and radiates into her left upper back. Patient also reports some numbness and tingling down her left arm. She states that the chest pain worsens with palpation. Patient denies any fevers, chills, cough, shortness of breath, abdominal pain, nausea, vomiting, or diarrhea. Patient reports left lower leg swelling, which she has states is chronic after having a ?accident?. Patient was seen here 3 days ago, and was given a prescription for muscle relaxants which she has taken without any relief. Patient denies any recent travel, surgery, hospitalization, blood clots, clotting disorder, or cancer history. Patient was given nitroglycerin and aspirin and room and states that this only caused nausea, did not help her chest pain. No other complaints or concerns at this time MD complaint: chest pain Onset (ago): day(s) Timing of current episode: episodic Prior episodes: Yes Onset: during rest Pain location: left chest Pain radiation: left arm Severity: moderate Quality: aching and heaviness Relieving factors: nothing Exacerbating factors: palpation Treatment prior to arrival: aspirin and nitroglycerin Risk Factors Coronary artery disease risk factors: hypertension Thoracic aortic dissection risk factors: none Related Data On Oral Contraceptives: No Home Medications Medication Instructions Recorded Confirmed sertraline 100 mg tablet 100 mg PO DAILY 08/22/20 10/09/22 bupropion HCl 150 mg 24 hr tablet, 150 mg PO QAM 05/03/21 10/09/22 extended release Previous Rx's Medication Instructions Recorded lancets 28 gauge (FreeStyle #100 ea 06/27/20 Lancets) FreeStyle Lite Strips (blood sugar 4 strip miscellaneous QID 30 days 07/20/20 diagnostic) #100 strips miscellaneous medical supply 1 ea miscellaneous DAILY 99 days 01/03/21 #2 ea spironolactone 50 mg tablet 50 mg PO BID #60 tabs 01/05/22 ferrous sulfate 325 mg (65 mg 325 mg PO DAILY 30 days #30 tabs 04/04/22 iron) tablet (Feosol) hydroxyzine HCl 25 mg tablet See Rx Instructions .Route 04/04/22 .COMPLEX anxiety 30 days #180 tabs cyclobenzaprine 10 mg tablet 10 mg PO TID PRN muscle spasm #14 05/04/22 tabs ondansetron 4 mg disintegrating 4 mg PO Q8H PRN nausea and 05/04/22 tablet vomiting #10 tabs lidocaine 5 % topical patch 1 patch topical DAILY #15 ea 05/08/22 amlodipine 5 mg tablet (Norvasc) 5 mg PO DAILY #30 tabs 05/13/22 BEDSIDE COMMODE #1 ea 05/14/22 FRONT-WHEELED WALKER #1 ea 05/14/22 TUB SEAT with BACK #1 ea 05/14/22 labetalol 100 mg tablet 100 mg PO BID #180 tabs 06/21/22 linaclotide 145 mcg capsule 145 mcg PO QAM #30 caps 09/19/22 (Linzess) metoclopramide HCl 5 mg tablet 5 mg PO QIDACHS #120 tabs 09/19/22 (Reglan) naproxen 500 mg tablet 500 mg PO BID PRN pain 7 days #14 10/01/22 tabs tamsulosin 0.4 mg capsule 0.4 mg PO BEDTIME 14 days #14 caps 10/01/22 tramadol 50 mg tablet 50 mg PO Q6H PRN pain (scale score 10/01/22 1-3) #8 tabs gabapentin 400 mg capsule 400 mg PO TID 30 days #90 caps 10/17/22 cyclobenzaprine 5 mg tablet 5 mg PO TID PRN muscle spasm 7 12/19/22 days #21 tabs Dexilant 60 mg capsule, delayed 60 mg PO DAILY #30 caps 12/20/22 release (dexlansoprazole) cephalexin 500 mg capsule 500 mg PO BID 5 days #10 caps 12/22/22 ibuprofen 600 mg tablet 600 mg PO Q6H PRN pain #30 tabs 12/22/22 ibuprofen 800 mg tablet (IBU) 800 mg PO Q8H PRN pain/headaches 12/24/22 30 days #90 tabs albuterol sulfate 90 mcg/actuation 2 puff inhalation Q4-6H PRN 12/25/22 aerosol inhaler (Ventolin HFA) shortness of breath or wheezing #6.7 grams Allergies Allergy/AdvReac Type Severity Reaction Status Date / Time amoxicillin [AMOXICILLIN] Allergy Intermediate NAUSEA & Verified 12/24/22 14:24 VOMITING, stomach pain, vomiting, stomach upset topiramate [From TOPAMAX] Allergy Intermediate TREMORS, Verified 12/24/22 14:24 nausea and vomiting latex [LATEX] Allergy Mild RASH Verified 12/24/22 14:24 medroxyprogesterone Allergy Mild RASH Verified 12/24/22 14:24 [From PROVERA] lactose Allergy bloating , Verified 12/24/22 14:24 diarrhea Review of Systems Review of Systems: Constitutional: No Weight loss, No Fever, No Chills ENT/Mouth: No Ear Pain, No Nasal Congestion, No Sinus Pain, No Hoarseness, No sore throat, No Rhinorrhea, No Swallowing Difficulty Cardiovascular: +Chest Pain, No SOB Respiratory: No Cough, No Sputum, No Wheezing Gastrointestinal: No Nausea, No Vomiting, No Diarrhea, No Constipation, No Abdominal pain Genitourinary: No Dysuria, No Urinary Frequency, No Hematuria, No Urinary Incontinence/retention, No Urgency, No Flank Pain Musculoskeletal: No joint pain, No Myalgias, No Joint Swelling Skin: No Skin Lesions, No rash Neuro: No Weakness, No Numbness, No Paresthesias Yes all other systems are reviewed and are negative Constitutional: Constitutional: Reports as per [facility] Past Medical History Medical History Anxiety Arthritis Carpal tunnel syndrome, bilateral Depression Depression Fibromyalgia Hyperlipemia Hypertension Insomnia Lower back pain Migraine Migraines Morbid obesity Morbid obesity with BMI of 40.0-44.9, adult Obesity Obesity (BMI 30-39.9) PCOS (polycystic ovarian syndrome) Polyuria Rheumatoid arthritis Second trimester Smoker Vulvar cyst Surgical History History of esophagogastroduodenoscopy (EGD) History of hip replacement, total History of removal of cyst History of tonsillectomy and adenoidectomy Family History Family History Father Medical history unknown Mother Diabetes Hypertension Maternal Aunt Breast cancer Ovarian cancer Mental health disorder Maternal Grandmother Diabetes Hypertension Social History Social History Household Members: Spouse and Children Housing: Condominium Alcohol intake: never Patient Tobacco Use Status: Former Tobacco user Tobacco use type: Cigarette Cigarettes Per Day: 3 e-Cigarette/Vaping Use: Never Used Second Hand Smoke Exposure: No Substance Use Type: Marijuana service: No Current occupational status: disabled Sexual orientation: Straight/Heterosexual Gender identity: Female Cognitive needs: No Hearing needs: No Vision needs: Yes Physical Exam Vital Signs: Vital Signs: Last Vital Signs Temp 97.9 F 12/22/22 17:35 Pulse 66 12/22/22 17:35 Resp 16 12/22/22 17:35 BP 140/75 H 12/22/22 17:35 Pulse Ox 98 12/22/22 17:35 O2 Del Method Room Air 12/22/22 17:35 BMI result Body Mass Index 40.2 Const: General: cooperative, comfortable and no acute distress Orientation/consciousness: patient oriented x3 Limitations: no limitations HEENT: Head: Yes normal to inspection, Yes normocephalic and Yes atraumatic Ears: hearing grossly normal bilaterally General nose exam: Normal external nose present Face and sinus: Yes normal facial exam Mouth: Normal oral and palatal mucosa present, oropharynx normal and moist mucous membranes Throat: Yes posterior oropharynx normal Eyes: General: appearance normal, both eyes and all related structures Eyelids: Yes eyelids normal Conjunctivae: conjunctivae normal Sclerae: sclerae normal Pupils: Equal, round and reactive pupils present EOM: EOMs intact bilaterally Neck: Neck: Yes normal visual inspection, Yes full ROM and Yes no lymphadenopathy Lymphatic: no lymphadenopathy noted Chest: Chest palpation & inspection: normal inspection of the chest Resp: Effort & Inspection: normal respiratory effort and able to speak in complete sentences Auscultation: clear to auscultation bilaterally, no crackles, no rales, no rhonchi and no wheezes Cardio: Rate: regular rate Rhythm: regular rhythm Heart sounds: S1 normal heart sound present and S2 normal heart sound present GI: Other: abdomen is soft, nontender, nondistended. Inspection: Yes normal to inspection Palpation (GI): Soft to palpation Skin: Other: right medial thigh with 1 cm indurated papule, no fluctuance noted, and no surrounding erythema or edema or warmth. General skin exam: no rashes or lesions noted Trauma: no lacerations or abrasions Wounds: no wounds Neuro: General: patient oriented x3 and moves all extremities Cranial nerves: Yes Equal, round and reactive pupils present Extrem: Other: Left lower calf with mild TTP, no palpable cords, erythema or warmth. General: Yes normal to inspection Right upper extremity: normal to inspection Left upper extremity: normal to inspection Right lower extremity: normal to inspection Left lower extremity: normal to inspection Course Reevaluation(s) Reevaluation #1: Cardiac workup unremarkable, patient's symptoms have been ongoing since 3 days ago, repeat troponin not indicated. Low suspicion for cardiac etiology, given 0 heart score. Ultrasound of left lower extremity was obtained without any findi ngs of DVT. There is a hypoechoic focus and mild edema in the subcutaneous tissue, representing a small hematoma with edema. This region was evaluated, patient reports that patient has been trying to pop this area, reports pain and swelling. Area with 1 cm indurated area, no fluctuance noted, and no surrounding erythema or edema or warmth. Symptoms consistent with early abscess cellulitis, does not require I&D at this time. Will treat with Keflex antibiotic. Advised patient to apply warm compresses the area and to discontinue trying to express this abscess in. Patient understands and agrees with plan. Time: 16:31 Medical Decision Making Medical Decision Making MDM Narrative: This is a 32-year-old female, with a past medical history of depression, anxiety, atypical chest pain, PCOS, HTN, and fibromyalgia, presenting to the emergency department with complaints of chest pain x3 days. On examination, patient has reproducible chest wall pain. CBC with anemia noted at 9.2/30, around her baseline, no leukocytosis, demonstrated within normal limits, troponin negative. EKG unremarkable, chest x-ray obtained 3 days ago showed no acute process, no cough, shortness of breath, I do not think it is necessary to repeat today. VSS. Differential Diagnosis Differential Diagnoses: The differential diagnosis associated with the presentation includes Chest pain, atypical chest pain, chest wall pain, costochondritis, NSTEMI, STEMI, angina Admission/Observation Consideration of admission/observation: Escalation of care including admission/observation considered Patient would have been admitted to the hospital had her work up had any findings where hospital admission was appropriate and her clinical presentation warranted hospital admission. Lab Data MDM Lab Attestation statement: I reviewed the patient's lab results. see above 12/22/22 13:38 12/22/22 13:38 Labs: Lab Results 12/22/22 12/22/22 12/22/22 Range/Units 13:38 13:38 13:38 WBC 6.1 (4.8-10.8) X10*3/uL RBC 3.69 L (4.20-5.50) X10*6/uL Hgb 9.2 L (12.0-16.0) g/dl Hct 30.0 L (37.0-47.0) % MCV 81.3 (80.0-98.0) fL MCH 24.9 L (27.0-33.0) pg MCHC 30.7 L (31.0-35.0) g/dl RDW 16.1 H (11.0-16.0) % Plt Count 279 (160-400) X10*3/uL MPV 10.5 (9.4-12.3) fL Immature Gran % (Auto) 0.3 (0.0-0.4) % Neut % (Auto) 57.8 (45-73) % Lymph % (Auto) 28.5 (20-40) % Bacon % (Auto) 9.4 (2-11) % Eos % (Auto) 3.3 (0-4) % Baso % (Auto) 0.7 (0-2) % Lymph # (Auto) 1.7 (1.2-4.9) X10*3/uL Bacon # (Auto) 0.6 (0.1-1.2) X10*3/uL Eos # (Auto) 0.2 (0.0-0.4) X10*3/uL Baso # (Auto) 0.0 (0.0-0.2) X10*3/uL Abs Immat Gran (auto) 0.02 (0.00-0.03) X10*3/uL Absolute Neuts (auto) 3.5 (2.0-8.3) x10*3/uL Absolute Nucleated RBC 0.000 (0.0-0.012) X10*3/uL Nucleated RBC % (auto) 0.0 (0.0-0.2) /100WBC Sodium 143 (135-145) mmol/L Potassium 4.1 (3.3-5.1) mmol/L Chloride 111 H (96-108) mmol/L Carbon Dioxide 23 (22-29) mmol/L Anion Gap 13 (12-20) BUN 10 (9-16) mg/dL Creatinine 0.67 (0.5-1.4) mg/dL Estim Creat Clear Calc 126.9 Estimated GFR > 60 Random Glucose 102 (60-115) mg/dL Calcium 9.3 (8.4-10.2) mg/dL Troponin I High Sens < 2.7 (<3.5-17.0) ng/L Independent Interpretation I performed an independent interpretation of an: EKG and Ultrasound Interpretation: Vent. Rate : 063 BPM ? ? Atrial Rate : 063 BPM ?? P-R Int : 128 ms? QRS Dur : 094 ms ? ? QT Int : 416 ms ? ? ? P-R-T Axes : 041 044 -04 degrees ?? QTc Int : 425 ms ? Normal sinus rhythm Normal ECG When compared with ECG of 19-DEC-2022 10:36, No significant change was found Radiology Impression Discussion of test interpretation with radiology: I have reviewed the radiologist's reading. Radiologist Impression: EXAMINATION:? US VENOUS ULTRASOUND WITH DOPPLER LOWER EXTREMITY, LEFT CLINICAL INFORMATION:? Left calf pain. COMPARISON:? Lower extremity venous ultrasound from 01/03/2021 TECHNIQUE: Ultrasound of the deep veins is performed from the hip to the calf with compression sonography and color and pulse Doppler assessment. Spectral analysis with color-flow imaging is performed. FINDINGS:? The common femoral vein is compressible and exhibits a normal phasic waveform; this suggests that the iliac veins are widely patent above.? Within the proximal thigh, the visualized profunda femoris vein is normal. The examined greater saphenous vein and saphenofemoral junction are normal.? Superficial femoral vein is patent in the proximal, mid and distal thigh.? Popliteal vein is normal to the level of the trifurcation.? On compression kent scale and color Doppler images, the visualized deep calf veins are grossly patent.? No evidence of Landry's cyst. Patient complained of a lump in the right groin region. Images of this area demonstrate a 0.6 x 0.6 x 0.8 cm hypoechoic focus and mild edema in the subcutaneous tissue. US/US venous duplex LE LT IMPRESSION:? *? No evidence of deep vein thrombosis in the left lower extremity. ? *? In the right groin region, there is a 0.6 x 0.6 x 0.8 cm hypoechoic focus and mild edema in the subcutaneous tissue. If there was recent trauma to this area, then this could represent a small hematoma with edema. Alternatively, if there is erythema, then mild focal cellulitis with small developing superficial abscess may be considered. Dictated By: Roshan Reyes MD External Record Review External record reviewed: Inpatient record, Office record, Outpatient record, Prior outpatient labs, Prior outpatient radiology, Primary care record and Outside ED record Discharge Plan Discharge Clinical Impression: Chest pain, Abscess Patient Disposition: Home, Self-Care Instructions: Chest Pain (ED), Abscess (ED) Additional Instructions: Your workup today was reassuring that this is not cardiac related. It is unclear what is causing you to have chest pain, please take prescribed anti-inflammatories as directed. Please take prescribed antibiotic as directed as you have this start of a skin infection on your right inner thigh. Take the entire course even if your feeling better. Please apply warm compresses to this area 5 to 6 times a day for the next 7-10 days. Do not pick at this area as this may cause worsening infection. Please follow-up with your primary care physician and registered phlebotomist part time. If any new or worsening symptoms occur including but not limited to fevers, chills, worsening chest pain, shortness of breath, palpitations, nausea, vomiting, or diarrhea. Worsening redness or pain in your right thigh, please return for re-evaluation. Prescriptions: New cephalexin 500 mg capsule 500 mg PO BID 5 Days Qty: 10 0RF ibuprofen 600 mg tablet 600 mg PO Q6H PRN (Reason: pain) Qty: 30 0RF No Action FreeStyle Lite Strips Strip 4 strip miscellaneous QID 30 Days Qty: 100 1RF (DME) FRONT-WHEELED WALKER See Rx Instructions .Route .MEDSUPPLY Qty: 1 0RF Rx Instructions: As directed (DME) TUB SEAT with BACK See Rx Instructions .Route .MEDSUPPLY Qty: 1 0RF Rx Instructions: As directed (DME) BEDSIDE COMMODE See Rx Instructions .Route .MEDSUPPLY Qty: 1 0RF Rx Instructions: As directed labetalol 100 mg tablet 100 mg PO BID Qty: 180 1RF gabapentin 400 mg capsule 400 mg PO TID 30 Days Qty: 90 3RF Rx Instructions: 1 capsule Orally Three times a day Dexilant 60 mg capsule,biphase delayed releas 60 mg PO DAILY Qty: 30 6RF ibuprofen [IBU] 800 mg tablet 800 mg PO Q8H PRN (Reason: pain/headaches) 30 Days Qty: 90 0RF Rx Instructions: Take with food cyclobenzaprine 10 mg tablet 10 mg PO TID PRN (Reason: muscle spasm) Qty: 14 0RF ondansetron 4 mg tablet,disintegrating 4 mg PO Q8H PRN (Reason: nausea and vomiting) Qty: 10 0RF amlodipine [Norvasc] 5 mg tablet 5 mg PO DAILY Qty: 30 0RF cyclobenzaprine 5 mg tablet 5 mg PO TID PRN (Reason: muscle spasm) 7 Days Qty: 21 0RF tramadol 50 mg tablet 50 mg PO Q6H PRN (Reason: pain (scale score 1-3)) Qty: 8 0RF tamsulosin 0.4 mg capsule 0.4 mg PO BEDTIME 14 Days Qty: 14 0RF naproxen 500 mg tablet 500 mg PO BID PRN (Reason: pain) 7 Days Qty: 14 0RF miscellaneous medical supply Misc 1 ea miscellaneous DAILY 99 Days Qty: 2 0RF sertraline 100 mg tablet 100 mg PO DAILY ferrous sulfate [Feosol] 325 mg (65 mg iron) tablet 325 mg PO DAILY 30 Days Qty: 30 5RF hydroxyzine HCl 25 mg tablet See Rx Instructions .ROUTE .COMPLEX 30 Days Qty: 180 3RF Rx Instructions: 1 to 2 tablets 3 times a day as needed for anxiety; lidocaine 5 % adhesive patch,medicated 1 patch topical DAILY Qty: 15 0RF Rx Instructions: leave on most painful area for up to 12 hrs albuterol sulfate [Ventolin HFA] 90 mcg/actuation HFA aerosol inhaler 2 puff inhalation Q4-6H PRN (Reason: shortness of breath or wheezing) Qty: 6.7 0RF (DME) lancets [FreeStyle Lancets] 28 gauge misc See Rx Instructions .ROUTE .MEDSUPPLY Qty: 100 1RF Rx Instructions: 4 times/day bupropion HCl 150 mg tablet extended release 24 hr 150 mg PO QAM spironolactone 50 mg tablet 50 mg PO BID Qty: 60 5RF metoclopramide HCl [Reglan] 5 mg tablet 5 mg PO QIDACHS Qty: 120 6RF Linzess 145 mcg capsule 145 mcg PO QAM Qty: 30 6RF Interventions: ED Discharge Assessment Last Done: 12/22/22 17:40 Discharge Date/Time: 12/22/22 17:41
--- NOTE | 2022-12-22 16:40 | PC.NURSE ---
pt remains with chest pain that has not changed since arrival. aox4. calm, cooperative. vss. no distress.
== END 2022-12-22 17:41 | disposition home or self-care (01) ==
PROVIDERS: Emergency Provider Emergency Medicine; PCP Internal Medicine
DX: R07.9 Chest pain, unspecified (principal); L02.214 Cutaneous abscess of groin; M79.662 Pain in left lower leg; I10 Essential (primary) hypertension; E78.5 Hyperlipidemia, unspecified; E66.01 Morbid (severe) obesity due to excess calories; Z68.41 Body mass index [BMI] 40.0-44.9, adult; Z87.891 Personal history of nicotine dependence
CPT/HCPCS: 36415; 80048; 84484; 85025; 93005; 93971; 99284; 99285

== ENCOUNTER 2022-12-24 14:20 | Outpatient (AMB) | payer OTHER, SELFPAY ==
[2022-12-24 14:23] VITALS: BP 132/90; PULSE 59; O2SAT 98; BMI 39.9
--- NOTE | 2022-12-24 14:23 | A.OFFPC_ITS ---
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 Allergies amoxicillin [AMOXICILLIN] Allergy (Intermediate, Verified 12/24/22 14:24) NAUSEA & VOMITING, stomach pain, vomiting, stomach upset topiramate [From TOPAMAX] Allergy (Intermediate, Verified 12/24/22 14:24) TREMORS, nausea and vomiting latex [LATEX] Allergy (Mild, Verified 12/24/22 14:24) RASH medroxyprogesterone [From PROVERA] Allergy (Mild, Verified 12/24/22 14:24) RASH lactose Allergy (Verified 12/24/22 14:24) bloating , diarrhea Tobacco use date assessed: 12/24/22 HPI HPI Comments History of Present Illness Details 31-year-old female past medical history significant for depression, anxiety, anemia, bipolar, ADHD, fibromyalgia, hypertension, hyperlipidemia and migraines.Patient of Dr. Sherman presents today for shortness of breath x 2 days. Patient states took 2 puffs of daughters albuterol with some relief. Of note Patient has bee seen several times in the emergency room for intermittent chest pain radiating down left arm. Workup has been negative patient has had a outpatient stress test that was also negative. Patient has upcoming appointment with Cardiology January. Will order echocardiogram to further evaluate for cause shortness of breath and chest pain. Patient also reports that she has lump in her left breast. [place] sized mobile density felt between 2-3o'clock on left breast. 12/19/22: Chest Xray FINDINGS: No significant abnormality is noted involving the heart, lungs, mediastinum, bony thorax or soft tissues. There is been no interval change compared to yesterday's exam. XR/XR chest 2V IMPRESSION: Normal exam, unchanged from yesterday. [facility] Medical History Anxiety Arthritis Carpal tunnel syndrome, bilateral Depression Depression Fibromyalgia Hyperlipemia Hypertension Insomnia Lower back pain Migraine Migraines Morbid obesity Morbid obesity with BMI of 40.0-44.9, adult Obesity Obesity (BMI 30-39.9) PCOS (polycystic ovarian syndrome) Polyuria Rheumatoid arthritis Second trimester Smoker Vulvar cyst Surgical History History of esophagogastroduodenoscopy (EGD) History of hip replacement, total History of removal of cyst History of tonsillectomy and adenoidectomy Family History Father Medical history unknown Mother Diabetes Hypertension Maternal Aunt Breast cancer Ovarian cancer Mental health disorder Maternal Grandmother Diabetes Hypertension Social History Household Members: Spouse and Children Housing: Condominium Alcohol intake: never Patient Tobacco Use Status: Former Tobacco user Tobacco use type: Cigarette Cigarettes Per Day: 3 e-Cigarette/Vaping Use: Never Used Second Hand Smoke Exposure: No Substance Use Type: Marijuana service: No Current occupational status: disabled Sexual orientation: Straight/Heterosexual Gender identity: Female Cognitive needs: No Hearing needs: No Vision needs: Yes Female Reproductive History Menstrual Age of Menarche: 8 Questionnaire Thrive Questionnaire Date Thrive assessed: 11/19/22 AUDIT C Alcohol Use Questionnaire (AUDIT-C) 1. How often do you have a drink containing alcohol?: Never 3. How often do you have six or more drinks on one occasion?: Never Total Score: 0 STEPHANIE-7 AMB Questionnaire STEPHANIE-7 Date STEPHANIE - 7 assessed: 11/19/22 Source: Developed by Drs. Cuco Richards, Itzel Ordaz, Eliud Ladd and colleagues, with an educational lino from [employer]. Review of Systems Const Denies chills, Denies fatigue, Denies fever(s) and Denies poor appetite Eyes Denies no additional complaints ENT Reports Normal hearing present Card Denies chest pain, Denies syncope, Denies rapid heart rate and Reports dyspnea Resp Denies cough and Reports dyspnea GI Denies change in stool character, Denies constipation, Denies diarrhea, Denies nausea and Denies vomiting Denies urinary frequency, Denies dysuria and Denies urinary urgency Skin/Breast Reports breast mass (left breast) Neuro Reports Normal hearing present, Denies confusion and Denies syncope Psych Denies confusion Endo Denies fatigue Physical exam (Primary Care) Vital Signs: Last Vital Signs Pulse 59 12/24/22 14:23 BP 132/90 H 12/24/22 14:23 Pulse Ox 98 12/24/22 14:23 Oxygen Delivery Method Room Air 12/24/22 14:23 BMI result Body Mass Index 39.9 Tobacco/Smoking Status: Tobacco use Status Tobacco use date assessed 12/24/22 12/24/22 14:24 Patient Tobacco Use Status Former Tobacco user 12/24/22 14:24 Tobacco use type Cigarette 12/24/22 14:24 e-Cigarette/Vaping Use Never Used 12/24/22 14:24 Thrive Assessment: Date of Thrive Assessment Date Thrive assessed 11/19/22 12/24/22 14:24 Const General: No confusion Orientation/consciousness: No confusion HENMT Head: Yes normocephalic and Yes atraumatic Eyes Conjunctivae: conjunctivae normal Chest Chest palpation & inspection: normal inspection of the chest Breast/axilla palpation: no axillary lymphadenopathy, abnormal palpation of the breast ([place] sized mobile density felt between 2-3o'clock on left breast) and other (normal palpation of Right breast ) Resp Effort & Inspection: normal respiratory effort Auscultation: clear to auscultation bilaterally, no crackles, no rhonchi and no wheezes Cardio Rate: regular rate Rhythm: regular rhythm Heart sounds: S1 normal heart sound present and S2 normal heart sound present GI Inspection: Yes normal to inspection Neuro General: No confusion Cranial nerves: Yes Normal hearing present Extrem General: No edema Assessment and Plan Assessment & Plan (1) Intermittent chest pain: Code(s): R07.9 - Chest pain, unspecified Plan: Multiple visits to ER EKG's and cardiac enzymes unremarkable. Outpatient stress test normal. Keep scheduled appointment with cardiology will order echocardiography to furthure evaluate given new onset SOB. (2) Shortness of breath: Code(s): R06.02 - Shortness of breath Plan: Echocardiogram ordered to evaluate for cardiac cause. Given patient had some relief with daughters albuterol will send albuterol as needed for SOB and wheezing and PFTS ordered. (3) Left breast lump: Comment: left breast lump between 2-3o'clock Code(s): N63.20 - Unspecified lump in the left breast, unspecified quadrant Plan: Left breast mammogram ordered. Plan Keep scheduled follow up with Dr. Sherman in 2 months or follow up sooner if needed. Orders: Orders CA echo transthoracic complete 12/24/22 R06.02 - Shortness of breath, R07.9 - Chest pain, unspecified PFT pulmonary function test 12/24/22 R06.02 - Shortness of breath MM tomosynthesis diagnostic LT 12/24/22 N63.20 - Unspecified lump in the left breast, unspecified quadrant Medications: New albuterol sulfate 90 mcg/actuation (Ventolin HFA) 2 puffs inhalation Q4-6H PRN 6.7 grams 0RF shortness of breath or wheezing R06.02 - Shortness of breath Coding Level of Care Code Est Pt Level 4 (30781) Diagnoses Intermittent chest pain R07.9 Shortness of breath R06.02 Left breast lump N63.20
== END 2022-12-24 14:47 | disposition home or self-care (01) ==
PROVIDERS: PCP Internal Medicine; Visit Provider Nurse Practitioner Family
DX: R07.9 Chest pain, unspecified (principal); R06.02 Shortness of breath; N63.21 Unspecified lump in the left breast, upper outer quadrant
CPT/HCPCS: 99214

== ENCOUNTER 2022-12-26 08:53 | Emergency (ER) | payer OTHER, SELFPAY ==
--- NOTE | 2022-12-26 08:56 | ECG_ITS ---
Test Reason : chest pain Blood Pressure : / mmHG Vent. Rate : 063 BPM Atrial Rate : 063 BPM P-R Int : 134 ms QRS Dur : 088 ms QT Int : 406 ms P-R-T Axes : 012 031 001 degrees QTc Int : 415 ms Normal sinus rhythm Normal ECG When compared with ECG of 22-DEC-2022 12:50, No significant change was found Referred By: Generic ED Physician Electronically Signed By:LEANA ÁLVAREZ MD
[2022-12-26 09:15] VITALS: BP 193/111; PULSE 66; RESP 16; TEMP 36.6; O2SAT 99; BMI 39.9
[2022-12-26 10:30] VITALS: BP 134/75; PULSE 55; RESP 16; TEMP 36.8; O2SAT 100
--- NOTE | 2022-12-26 10:56 | ED_ITS ---
HPI - Chest Pain General Chief Complaint: Chest Pain Stated Complaint: Chest pain Time Seen by Provider: 12/26/22 10:24 Source: patient and old records reviewed Mode of arrival: ambulatory Limitations: no limitations History of Present Illness HPI narrative: 32 yo female with 2 years of chronic chest pain hurts to touch - has had stress test, multiple EKGs, CXR, negative troponin, ddimer in the past (not on OCP) comes in today again with c/o chest pain hurts to touch. States she takes gabapentin and motrin but it does not help the pain. She is not sure if this started with COVID. She feels n/v and feels that she has n/v as well. She notes her pain could be due to stress but she feels calm now. She has been seen 3 times this month with negative workup between PCP and ED. Negative CXR, negative DVT study, negative troponin. She is going to have ECHO january 22. She notes this pain is not new. MD complaint: chest pain Onset (ago): year(s) (2) Timing of current episode: constant Prior episodes: Yes Onset: during rest and during exertion Pain location: substernal Pain radiation: none Severity: moderate Quality: tightness, aching and heaviness Relieving factors: nothing Exacerbating factors: palpation and movement Context: other (unsure how this started states it could have been COVID) Associated symptoms: nausea and dyspnea Treatment prior to arrival: none Related Data Home Medications Medication Instructions Recorded Confirmed sertraline 100 mg tablet 100 mg PO DAILY 08/22/20 10/09/22 bupropion HCl 150 mg 24 hr tablet, 150 mg PO QAM 05/03/21 10/09/22 extended release Previous Rx's Medication Instructions Recorded lancets 28 gauge (FreeStyle #100 ea 06/27/20 Lancets) FreeStyle Lite Strips (blood sugar 4 strip miscellaneous QID 30 days 07/20/20 diagnostic) #100 strips miscellaneous medical supply 1 ea miscellaneous DAILY 99 days 01/03/21 #2 ea spironolactone 50 mg tablet 50 mg PO BID #60 tabs 01/05/22 ferrous sulfate 325 mg (65 mg 325 mg PO DAILY 30 days #30 tabs 04/04/22 iron) tablet (Feosol) hydroxyzine HCl 25 mg tablet See Rx Instructions .Route 04/04/22 .COMPLEX anxiety 30 days #180 tabs cyclobenzaprine 10 mg tablet 10 mg PO TID PRN muscle spasm #14 05/04/22 tabs ondansetron 4 mg disintegrating 4 mg PO Q8H PRN nausea and 05/04/22 tablet vomiting #10 tabs lidocaine 5 % topical patch 1 patch topical DAILY #15 ea 05/08/22 amlodipine 5 mg tablet (Norvasc) 5 mg PO DAILY #30 tabs 05/13/22 BEDSIDE COMMODE #1 ea 05/14/22 FRONT-WHEELED WALKER #1 ea 05/14/22 TUB SEAT with BACK #1 ea 05/14/22 labetalol 100 mg tablet 100 mg PO BID #180 tabs 06/21/22 linaclotide 145 mcg capsule 145 mcg PO QAM #30 caps 09/19/22 (Linzess) metoclopramide HCl 5 mg tablet 5 mg PO QIDACHS #120 tabs 09/19/22 (Reglan) naproxen 500 mg tablet 500 mg PO BID PRN pain 7 days #14 10/01/22 tabs tamsulosin 0.4 mg capsule 0.4 mg PO BEDTIME 14 days #14 caps 10/01/22 tramadol 50 mg tablet 50 mg PO Q6H PRN pain (scale score 10/01/22 1-3) #8 tabs gabapentin 400 mg capsule 400 mg PO TID 30 days #90 caps 10/17/22 cyclobenzaprine 5 mg tablet 5 mg PO TID PRN muscle spasm 7 12/19/22 days #21 tabs Dexilant 60 mg capsule, delayed 60 mg PO DAILY #30 caps 12/20/22 release (dexlansoprazole) cephalexin 500 mg capsule 500 mg PO BID 5 days #10 caps 12/22/22 ibuprofen 600 mg tablet 600 mg PO Q6H PRN pain #30 tabs 12/22/22 ibuprofen 800 mg tablet (IBU) 800 mg PO Q8H PRN pain/headaches 12/24/22 30 days #90 tabs albuterol sulfate 90 mcg/actuation 2 puff inhalation Q4-6H PRN 12/25/22 aerosol inhaler (Ventolin HFA) shortness of breath or wheezing #6.7 grams cyclobenzaprine 10 mg tablet 10 mg PO TID PRN muscle spasm #14 12/26/22 tabs prednisone 20 mg tablet 40 mg PO DAILY 5 days #10 tabs 12/26/22 Allergies Allergy/AdvReac Type Severity Reaction Status Date / Time amoxicillin [AMOXICILLIN] Allergy Intermediate NAUSEA & Verified 12/26/22 09:30 VOMITING, stomach pain, vomiting, stomach upset topiramate [From TOPAMAX] Allergy Intermediate TREMORS, Verified 12/26/22 09:30 nausea and vomiting latex [LATEX] Allergy Mild RASH Verified 12/26/22 09:30 medroxyprogesterone Allergy Mild RASH Verified 12/26/22 09:30 [From PROVERA] lactose Allergy bloating , Verified 12/26/22 09:30 diarrhea Review of Systems Review of Systems: Constitutional : No Weight loss, No Fever, No Chills ENT/Mouth : No sore throat, No Rhinorrhea Eyes: No Eye Pain, No Swelling Cardiovascular : pos Chest Pain, pos SOB, no Dyspnea on Exertion, No Orthopnea, No Edema, No Palpitations Respiratory : No Cough, No Sputum Gastrointestinal : pos Nausea, No Vomiting, No Diarrhea, No abdominal Pain, No Hematochezia, No Melena Genitourinary : No Dysuria, No Urinary Frequency Musculoskeletal : No joint pain, No Myalgias, No Joint Swelling Skin : No Skin Lesions, No rash Neuro : No Weakness, No Numbness, No Dizziness, No Headache Psych : No Anxiety/Panic, No Depression Heme/Lymph: No Bruising, No Lymphadenopathy Endocrine : No Polyuria, No Polydipsia All other systems reviewed and are negative PMFSH Past Medical History Attestation statement: The following information was validated with the patient. Source: old records reviewed Medical History Anxiety Arthritis Carpal tunnel syndrome, bilateral Depression Depression Fibromyalgia Hyperlipemia Hypertension Insomnia Lower back pain Migraine Migraines Morbid obesity Morbid obesity with BMI of 40.0-44.9, adult Obesity Obesity (BMI 30-39.9) PCOS (polycystic ovarian syndrome) Polyuria Rheumatoid arthritis Second trimester Smoker Vulvar cyst Surgical History History of esophagogastroduodenoscopy (EGD) History of hip replacement, total History of removal of cyst History of tonsillectomy and adenoidectomy Family History Family History Father Medical history unknown Mother Diabetes Hypertension Maternal Aunt Breast cancer Ovarian cancer Mental health disorder Maternal Grandmother Diabetes Hypertension Social History Social History Household Members: Spouse and Children Housing: Condominium Alcohol intake: never Patient Tobacco Use Status: Former Tobacco user Tobacco use type: Cigarette Cigarettes Per Day: 3 e-Cigarette/Vaping Use: Never Used Second Hand Smoke Exposure: No Substance Use Type: Marijuana Advance Directives: No Advance Directives Information Provided: No service: No Current occupational status: disabled Sexual orientation: Straight/Heterosexual Gender identity: Female Cognitive needs: No Hearing needs: No Vision needs: Yes Physical Exam Vital Signs: Vital Signs: Last Vital Signs Temp 98.2 F 12/26/22 10:30 Pulse 55 12/26/22 10:30 Resp 16 12/26/22 10:30 BP 134/75 12/26/22 10:30 Pulse Ox 100 12/26/22 10:30 O2 Del Method Room Air 12/26/22 10:30 BMI result Body Mass Index 39.9 Appearance: Alert. Oriented X3. No acute distress. Eyes: Pupils equal, round and reactive to light. ENT: Pharynx normal. Neck: Normal inspection. Neck supple. CVS: Normal heart rate and rhythm. Pulses normal. Chest: ttp reproduces pain along bilateral costochondral cartilate Respiratory: No respiratory distress. Breath sounds normal. Abdomen: Soft and nontender. Skin: Skin warm and dry. Normal skin color. Normal skin turgor. Extremities: No lower extremity edema. No calf ttp Neuro: Oriented X 3. No motor deficit. No sensory deficit. Medications Administered Discontinued Medications Generic Name Dose Route Start Last Admin Trade Name Freq PRN Reason Stop Dose Admin Cyclobenzaprine HCl 10 mg 12/26/22 11:09 12/26/22 11:20 Cyclobenzaprine Hcl 10 Mg Tablet PO 12/26/22 11:10 10 mg ONCE ONE Administration Lidocaine 1 patch 12/26/22 11:09 12/26/22 11:20 Lidocaine 4 % Patch Adh..Patch TRANSDERMA 12/26/22 11:10 1 patch ONCE ONE Administration Protocol Procedures Procedure Narrative Procedure Narrative: beside ECHO no effusion, no GWMA apical subxiphoid parasternal short and long views Medical Decision Making Medical Decision Making MDM Narrative: 32 yo female with hx of PCOS, fibromyalgia, migraines, obesity, chronic chest wall pain, HTN here with c/o reproduceable chest wall pain that is chronic in nature - she is PERC negative. distal pulses intact - pain x 2 years doubt dissection she has had negative CXR this month, repeat negative troponin, I will obtain bedside ECHO and if no effusion I am going to CT home. Differential Diagnosis Differential Diagnoses: The differential diagnosis associated with the presentation includes chest wall pain, costochondritis, atypical chest pain PERC negative doubt PE chest pain x 2 years doubt dissectin - distal pulses intaact Lab Data [facility] Lab Attestation statement: I reviewed the patient's lab results. from recent visits Independent Interpretation I performed an independent interpretation of an: EKG and Ultrasound (no effusion) Interpretation: Rate: 63 Rhythm: NSR [place]: normal Normal P waves. Normal ADRIENNE. Normal QRS complex. ST T wave : t wave inversion III no SURAJ, no ST depression qTC: normal prior studies: unchanged no acute ischemia The study has been interpreted contemporaneously by me. . External Record Review External record reviewed: Inpatient record and Outpatient record Tests considered The following testing was considered but not selected: repeat trop not necessary no change in pain, just had negative CXR 4 days ago. Prescription Management I considered prescription management with: Other (lidocaine and flexeril ) will also start on 40mg prednisone x 5 days she will hold ibuprofen given degree of symptoms and inflammation concerning for refractory costochondritis Discharge Plan Discharge Clinical Impression: Costochondritis Patient Disposition: Home, Self-Care Instructions: Costochondritis (ED) Additional Instructions: stop the ibuprofen while on prednisone you can take tylenol return for worsening symptoms, increased pain, fevers, cough, worsening shortness of breath, fainting or any other concerns given your chronic pain issues may be seeing a model maker would be helpful ask your doctor Prescriptions: New prednisone 20 mg tablet 40 mg PO DAILY 5 Days Qty: 10 0RF cyclobenzaprine 10 mg tablet 10 mg PO TID PRN (Reason: muscle spasm) Qty: 14 0RF No Action FreeStyle Lite Strips Strip 4 strip miscellaneous QID 30 Days Qty: 100 1RF (DME) FRONT-WHEELED WALKER See Rx Instructions .Route .MEDSUPPLY Qty: 1 0RF Rx Instructions: As directed (DME) TUB SEAT with BACK See Rx Instructions .Route .MEDSUPPLY Qty: 1 0RF Rx Instructions: As directed (DME) BEDSIDE COMMODE See Rx Instructions .Route .MEDSUPPLY Qty: 1 0RF Rx Instructions: As directed labetalol 100 mg tablet 100 mg PO BID Qty: 180 1RF gabapentin 400 mg capsule 400 mg PO TID 30 Days Qty: 90 3RF Rx Instructions: 1 capsule Orally Three times a day Dexilant 60 mg capsule,biphase delayed releas 60 mg PO DAILY Qty: 30 6RF ibuprofen [IBU] 800 mg tablet 800 mg PO Q8H PRN (Reason: pain/headaches) 30 Days Qty: 90 0RF Rx Instructions: Take with food cyclobenzaprine 10 mg tablet 10 mg PO TID PRN (Reason: muscle spasm) Qty: 14 0RF ondansetron 4 mg tablet,disintegrating 4 mg PO Q8H PRN (Reason: nausea and vomiting) Qty: 10 0RF amlodipine [Norvasc] 5 mg tablet 5 mg PO DAILY Qty: 30 0RF cyclobenzaprine 5 mg tablet 5 mg PO TID PRN (Reason: muscle spasm) 7 Days Qty: 21 0RF tramadol 50 mg tablet 50 mg PO Q6H PRN (Reason: pain (scale score 1-3)) Qty: 8 0RF tamsulosin 0.4 mg capsule 0.4 mg PO BEDTIME 14 Days Qty: 14 0RF naproxen 500 mg tablet 500 mg PO BID PRN (Reason: pain) 7 Days Qty: 14 0RF cephalexin 500 mg capsule 500 mg PO BID 5 Days Qty: 10 0RF ibuprofen 600 mg tablet 600 mg PO Q6H PRN (Reason: pain) Qty: 30 0RF miscellaneous medical supply Misc 1 ea miscellaneous DAILY 99 Days Qty: 2 0RF sertraline 100 mg tablet 100 mg PO DAILY ferrous sulfate [Feosol] 325 mg (65 mg iron) tablet 325 mg PO DAILY 30 Days Qty: 30 5RF hydroxyzine HCl 25 mg tablet See Rx Instructions .ROUTE .COMPLEX 30 Days Qty: 180 3RF Rx Instructions: 1 to 2 tablets 3 times a day as needed for anxiety; lidocaine 5 % adhesive patch,medicated 1 patch topical DAILY Qty: 15 0RF Rx Instructions: leave on most painful area for up to 12 hrs albuterol sulfate [Ventolin HFA] 90 mcg/actuation HFA aerosol inhaler 2 puff inhalation Q4-6H PRN (Reason: shortness of breath or wheezing) Qty: 6.7 0RF (DME) lancets [FreeStyle Lancets] 28 gauge misc See Rx Instructions .ROUTE .MEDSUPPLY Qty: 100 1RF Rx Instructions: 4 times/day bupropion HCl 150 mg tablet extended release 24 hr 150 mg PO QAM spironolactone 50 mg tablet 50 mg PO BID Qty: 60 5RF metoclopramide HCl [Reglan] 5 mg tablet 5 mg PO QIDACHS Qty: 120 6RF Linzess 145 mcg capsule 145 mcg PO QAM Qty: 30 6RF
--- NOTE | 2022-12-26 11:05 | PC.NURSE ---
patient laying in stretcher, provider at bedside doing echo, resp equal and unlabored.
[2022-12-26] MEDS: Lidocaine 4 % Patch ADH..PATCH 1 PATCH TRANSDERMA (11:20)
[2022-12-26] MEDS: Cyclobenzaprine HCl 10 MG TABLET PO (11:20)
== END 2022-12-26 12:05 | disposition home or self-care (01) ==
PROVIDERS: Emergency Provider Emergency Medicine; PCP Internal Medicine
DX: M94.0 Chondrocostal junction syndrome [Tietze] (principal); Z79.899 Other long term (current) drug therapy
CPT/HCPCS: 93005; 99283; 99284; 99285

== ENCOUNTER → 2022-12-26 08:56 | Outpatient (BNV) | payer OTHER, SELFPAY | PROVIDERS: Emergency Provider Emergency Medicine; PCP Internal Medicine; Visit Provider Internal Medicine Cardiovascular Disease | DX: R07.9 Chest pain, unspecified (principal) | CPT/HCPCS: 93010 ==

== ENCOUNTER 2022-12-27 10:46 | Outpatient (REF) | payer OTHER, SELFPAY ==
--- NOTE | ~2022-12-27 | US_ITS ---
EXAMINATION: US RETROPERITONEAL LIMITED (RENAL ONLY) CLINICAL INFORMATION: Calculus of kidney. COMPARISON: Portions of ultrasound 10/10/22, portions of CT 10/01/22 TECHNIQUE: Real-time imaging of the kidneys. FINDINGS: RIGHT KIDNEY: 10.6 x 4.4 x 5.4 cm (SAG x AP x TRV). There is no dilation of the intrarenal collecting system on the right. Renal cortical thickness is normal. No suspicious focal parenchymal lesions or hydronephrosis. There is a 0.3 cm bright reflector in the central sinus of the lower pole the right kidney. This could represent a nonshadowing nonobstructing calculus. LEFT KIDNEY: 10.8 x 5.0 x 4.7 cm (SAG x AP x TRV). The kidney is normal in size, contour, and echogenicity. Renal cortical thickness is normal. No focal parenchymal lesions or hydronephrosis. There is a 0.3 cm bright reflector without shadowing in the central sinus of the interpolar left kidney. This could represent a nonshadowing nonobstructing calculus US/US renal BI IMPRESSION: No evidence of obstruction. No suspicious mass. Right reflectors in each kidney measuring 0.3 cm which could represent nonshadowing nonobstructing calculi..
== END 2022-12-27 10:47 | disposition home or self-care (01) ==
LOC: HO.US 10:46
PROVIDERS: PCP Internal Medicine; Visit Provider Urology
DX: N20.0 Calculus of kidney (principal)
CPT/HCPCS: 76775

== ENCOUNTER 2023-01-03 14:03 | Outpatient (AMB) | payer OTHER, SELFPAY ==
[2023-01-03 14:56] VITALS: BP 138/76; PULSE 77; O2SAT 100; BMI 39.1
--- NOTE | 2023-01-03 14:56 | A.OFFPC_ITS ---
Vital Signs 01/03/23 14:56 Height 5 ft 1 in Weight 207 lb BMI 39.1 BP 138/76 Blood Pressure Location Lt brachial Position Sitting Pulse 77 Pulse Source Pulse Oximeter Temp Source Skin Pulse Oximetry (%) 100 Oxygen Delivery Method Room Air Intake Visit Reasons: [facility]/01-02/High Bp/ Chest pain Intake Note: Patient is here to follow-up after a visit the emergency department at 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: No Allergies amoxicillin [AMOXICILLIN] Allergy (Intermediate, Verified 01/03/23 15:34) NAUSEA & VOMITING, stomach pain, vomiting, stomach upset topiramate [From TOPAMAX] Allergy (Intermediate, Verified 01/03/23 15:34) TREMORS, nausea and vomiting latex [LATEX] Allergy (Mild, Verified 01/03/23 15:34) RASH medroxyprogesterone [From PROVERA] Allergy (Mild, Verified 01/03/23 15:34) RASH lactose Allergy (Verified 01/03/23 15:34) bloating , diarrhea Medication List - Last Reconciled 01/03/23 by ELIAN Butcher albuterol sulfate 90 mcg/actuation (Ventolin HFA) 2 puffs inhalation Q4-6H PRN amlodipine (Norvasc) 5 mg PO DAILY [BEDSIDE COMMODE As directed] bupropion HCl 150 mg PO QAM cyclobenzaprine 10 mg PO TID PRN cyclobenzaprine 10 mg PO TID PRN Dexilant (dexlansoprazole) 60 mg PO DAILY NS ferrous sulfate (Feosol) 325 mg PO DAILY 30 days FreeStyle Lite Strips (blood sugar diagnostic) 4 strips miscellaneous QID 30 days NS [FRONT-WHEELED WALKER As directed] gabapentin 400 mg PO TID 30 days hydroxyzine HCl 1 to 2 tablets 3 times a day as needed for anxiety; 30 days ibuprofen (IBU) 800 mg PO Q8H PRN 30 days labetalol 100 mg PO BID lancets (FreeStyle Lancets) 4 times/day lidocaine 5% 1 patch topical DAILY linaclotide (Linzess) 145 mcg PO QAM metoclopramide HCl (Reglan) 5 mg PO QIDACHS miscellaneous medical supply 1 ea miscellaneous DAILY 99 days naproxen 500 mg PO BID PRN 7 days ondansetron 4 mg PO Q8H PRN sertraline 100 mg PO DAILY spironolactone 50 mg PO BID tamsulosin 0.4 mg PO BEDTIME 14 days tramadol 50 mg PO Q6H PRN [TUB SEAT with BACK As directed] Tobacco use date assessed: 01/03/23 Dental Screening Dental Screen Date: 01/03/[address] [facility]/01-02/High Bp/ Chest pain HPI Details Patient is a 32-year-old female presents today to follow-up after [place] [facility] visit 12/26/22 due to chest pain. Patient of Dr. Sherman. Per ED notes: 32 yo female with 2 years of chronic chest pain hurts to touch - has had stress test, multiple EKGs, CXR, negative troponin, ddimer in the past (not on OCP) comes in today again with c/o chest pain hurts to touch. States she takes gabapentin and motrin but it does not help the pain. She is not sure if this started with COVID. She feels n/v and feels that she has n/v as well. She notes her pain could be due to stress but she feels calm now. She has been seen 3 times this month with negative workup between PCP and ED. Negative CXR, negative DVT study, negative troponin. She is going to have ECHO january 22. She notes this pain is not new. 32 yo female with hx of PCOS, fibromyalgia, migraines, obesity, chronic chest wall pain, HTN here with c/o reproduceable chest wall pain that is chronic in nature - she is PERC negative. distal pulses intact - pain x 2 years doubt dissection she has had negative CXR this month, repeat negative troponin, I will obtain bedside ECHO and if no effusion I am going to DC home. Today, patient reports that this left-sided chest pain starts in her left lateral breast, go up to her mid chest in radiated to her right back. Pain is worse with palpation. She reports this intermittent pain for the past 2 years now. She reports that prednisone did help her a little bit with this pain - she was discharged home with prednisone from ED. patient reports last time she saw provider in the office they palpated a lump on her left breast, patient is going to have left breast ultrasound, will follow-up on this referral. Patient has an upcoming pulmonary function test and echocardiogram. She has an upcoming appointment with aeronautical engineering technologist 01/2023. She also reports intermittent shortness of breath. [facility] Medical History Anxiety Arthritis Carpal tunnel syndrome, bilateral Depression Depression Fibromyalgia Hyperlipemia Hypertension Insomnia Lower back pain Migraine Migraines Morbid obesity Morbid obesity with BMI of 40.0-44.9, adult Obesity Obesity (BMI 30-39.9) PCOS (polycystic ovarian syndrome) Polyuria Rheumatoid arthritis Second trimester Smoker Vulvar cyst Surgical History History of esophagogastroduodenoscopy (EGD) History of hip replacement, total History of removal of cyst History of tonsillectomy and adenoidectomy Family History Father Medical history unknown Mother Diabetes Hypertension Maternal Aunt Breast cancer Ovarian cancer Mental health disorder Maternal Grandmother Diabetes Hypertension Social History Household Members: Spouse and Children Housing: Condominium Alcohol intake: never Patient Tobacco Use Status: Former Tobacco user Tobacco use type: Cigarette Cigarettes Per Day: 3 e-Cigarette/Vaping Use: Never Used Second Hand Smoke Exposure: No Substance Use Type: Marijuana service: No Current occupational status: disabled Sexual orientation: Straight/Heterosexual Gender identity: Female Cognitive needs: No Hearing needs: No Vision needs: Yes Female Reproductive History Menstrual Age of Menarche: 8 Questionnaire Thrive Questionnaire Date Thrive assessed: 11/19/22 AUDIT C Alcohol Use Questionnaire (AUDIT-C) 1. How often do you have a drink containing alcohol?: Never 3. How often do you have six or more drinks on one occasion?: Never Total Score: 0 Score Reviewed/Action Taken: No STEPHANIE-7 AMB Questionnaire STEPHANIE-7 Date STEPHANIE - 7 assessed: 11/19/22 Source: Developed by Drs. Cuco Richards, Itzel Ordaz, Eliud Ladd and colleagues, with an educational lino from [employer]. Review of Systems Const Denies body aches, Denies chills, Denies fever(s) and Denies headache(s) Eyes Denies change in vision ENT Denies dizziness, Denies otalgia, Denies headache(s), Denies nasal discharge, Denies sinus pain and Denies sore throat Card Details: Mid and left chest intermittent pain, patient reports that pain starts in left breast lateral aspect Denies chest pain, Denies edema, Denies lightheadedness and Denies dyspnea Resp Denies cough, Denies dyspnea and Denies wheezing GI Denies abdominal pain Denies dysuria Musc Denies myalgias Skin/Breast Denies rash Neuro Denies dizziness and Denies headache(s) Aller/Immun Denies wheezing Physical exam (Primary Care) Vital Signs: Last Vital Signs Pulse 77 01/03/23 14:56 BP 138/76 01/03/23 14:56 Pulse Ox 100 01/03/23 14:56 Oxygen Delivery Method Room Air 01/03/23 14:56 BMI result Body Mass Index 39.1 Tobacco/Smoking Status: Tobacco use Status Tobacco use date assessed 01/03/23 01/03/23 14:57 Patient Tobacco Use Status Former Tobacco user 01/03/23 14:57 Tobacco use type Cigarette 01/03/23 14:57 e-Cigarette/Vaping Use Never Used 01/03/23 14:57 Thrive Assessment: Date of Thrive Assessment Date Thrive assessed 11/19/22 01/03/23 14:57 Const General: cooperative and no acute distress Orientation/consciousness: patient oriented x3 HENMT Head: Yes normocephalic and Yes atraumatic Face and sinus: Yes sinuses nontender Mouth: oropharynx normal and moist mucous membranes Throat: Yes posterior oropharynx normal Eyes General: appearance normal, both eyes and all related structures Neck Neck: Yes normal visual inspection, Yes full ROM and Yes no lymphadenopathy Chest Chest palpation & inspection: tenderness (Mid chest, left chest, left lateral breast) Resp Effort & Inspection: normal respiratory effort and able to speak in complete sentences Auscultation: clear to auscultation bilaterally, no crackles, no rales, no rhonchi and no wheezes Cardio Rate: regular rate Rhythm: regular rhythm Heart sounds: S1 normal heart sound present, S2 normal heart sound present and no murmurs GI Auscultation: normal bowel sounds Back/Spine/Pelvis Other: Left upper back muscles tender to palpation Skin General skin exam: no rashes or lesions noted Neuro General: patient oriented x3 Gait exam (Neuro): Normal gait present Extrem General: Yes full ROM Assessment and Plan Assessment & Plan (1) Costochondritis: Code(s): M94.0 - Chondrocostal junction syndrome [Tietze] Plan: Patient presents today to follow-up after [facility] [facility] visit, she was diagnosed with costochondritis and discharged home with prednisone and cyclobenzaprine. Patient reports that her pain was slightly better after prednisone. She has an upcoming PFT test and echocardiogram. Patient also has a referral for left breast ultrasound due to left breast lump, will follow-up on this referral. Physical exam today revealed mid chest, left chest, and left lateral breast tenderness to palpation. She also did have tenderness to her left upper back muscle areas. Will also provide patient with diclofenac cream p.r.n.. She is to continue cyclobenzaprine 10 mg t.i.d. p.r.n.. Keep appointment with PCP as scheduled or follow-up sooner as needed. Patient agreed with the plan. Plan Patient was encouraged to complete iron blood work that was ordered by her PCP Medications: New diclofenac sodium 1% (Arthritis Pain (diclofenac)) 2 grams topical QID PRN 100 grams 0RF pain M94.0 - Chondrocostal junction syndrome [Tietze] Refilled ferrous sulfate (Feosol) 325 mg PO DAILY 30 days 30 tabs 5RF Coding Level of Care Code Est Pt Level 3 (64136) Diagnoses Costochondritis M94.0
== END 2023-01-03 15:53 | disposition home or self-care (01) ==
PROVIDERS: PCP Internal Medicine; Visit Provider Nurse Practitioner Family
DX: M94.0 Chondrocostal junction syndrome [Tietze] (principal)
CPT/HCPCS: 99213

== ENCOUNTER 2023-01-04 09:17 | Outpatient (REF) | payer OTHER, SELFPAY ==
--- NOTE | 2023-01-04 10:23 | PFT_ITS ---
FLOWS: 1. FEV1 71% of predicted at 2.05 L. 2. FVC 92% of predicted at 3.12 L. 3. FEV1 to FVC ratio of 0.66. 4. No bronchodilator response. LUNG VOLUMES: 1. Total lung capacity 99% of predicted at 4.30 L. 2. Residual volume 133% of predicted at 1.73 L. 3. Slow vital capacity 75% of predicted at 2.46 L. 4. Expiratory reserve volume 27% of predicted at 0.34 L. 5. Diffusion capacity is normal. IMPRESSION: Moderate obstructive and ventilatory defect with no bronchodilator response. Increased residual volume suggests air trapping. Decreased expiratory reserve volume suggests extrathoracic restriction likely secondary to abdominal obesity. Daniele Cabral MD AP/MODL / [id number]
[2023-01-04 10:31] LABS: MANUAL DIFF FLAG NO
[2023-01-04 10:54] LABS: Basophils Percent Auto 0.4 % (0-2); Eosinophils Absolute Auto 0.1 X10*3/uL (0.0-0.4); Eosinophils Percent Auto 1.3 % (0-4); Hematocrit 32.2 % (37.0-47.0); Imm Gran Abs Auto 0.03 X10*3/uL (0.00-0.03); Imm Gran Pct Auto 0.4 % (0.0-0.4); Lymphocytes Absolute Auto 1.9 X10*3/uL (1.2-4.9); Lymphocytes Percent Auto 27.1 % (20-40); Mean Corpuscular HGB Conc 31.1 g/dl (31.0-35.0); Mean Corpuscular Hemoglobin 25.4 pg (27.0-33.0); Mean Corpuscular Volume 81.9 fL (80.0-98.0); Mean Platelet Volume 11.3 fL (9.4-12.3); Monocytes Absolute Auto 0.8 X10*3/uL (0.1-1.2); Neutrophils Absolute Auto 4.3 x10*3/uL (2.0-8.3); Neutrophils Percent Auto 59.8 % (45-73); Platelet Count 300 X10*3/uL (160-400); Red Blood Count 3.93 X10*6/uL (4.20-5.50); Red Cell Distribution Width 16.1 % (11.0-16.0); White Blood Count 7.1 X10*3/uL (4.8-10.8)
[2023-01-04 14:24] LABS: Alanine Aminotransferase 12 U/L (0-31); Albumin Level 3.9 g/dL (3.5-5.0); Alkaline Phosphatase 70 U/L (39-117); Anion Gap 11 (12-20); Aspartate Amino Transferase 10 U/L (5-31); Bilirubin Total 0.4 mg/dL (0.0-1.0); Blood Urea Nitrogen 9 mg/dL (9-16); Calcium 9.2 mg/dL (8.4-10.2); Carbon Dioxide 23 mmol/L (22-29); Chloride 111 mmol/L (96-108); Estimated Glomerular Filt Rate > 60; Glucose Random 80 mg/dL (60-115); Iron 46 mcg/dL (30-160); Percent Iron Saturation 17 % (15-50); Potassium 3.9 mmol/L (3.3-5.1); Sodium 141 mmol/L (135-145); Total Iron Binding Capacity 276 mcg/dL (228-428); Total Protein 6.8 g/dL (6.5-8.0); Unsaturated Iron Binding 230 ug/dL
== END 2023-01-04 09:18 | disposition home or self-care (01) ==
LOC: HO.RESP 09:17
PROVIDERS: Absent Provider Internal Medicine; PCP Internal Medicine; Visit Provider Nurse Practitioner Family
DX: R06.02 Shortness of breath (principal); D64.9 Anemia, unspecified
CPT/HCPCS: 36415; 80053; 83540; 85025; 94010; 94727; 94729

== ENCOUNTER → 2023-01-04 10:23 | Outpatient (BNV) | payer OTHER, SELFPAY | PROVIDERS: Absent Provider Internal Medicine; PCP Internal Medicine; Visit Provider Internal Medicine Pulmonary Disease | DX: R06.09 Other forms of dyspnea (principal) | CPT/HCPCS: 94060; 94727; 94729 ==

== ENCOUNTER → 2023-01-07 09:02 | Outpatient (REF) | payer OTHER, SELFPAY ==
--- NOTE | ~2023-01-07 | NM_ITS ---
EXAMINATION: BILIARY TRACT IMAGING STUDY WITH CCK CLINICAL INFORMATION: Calculus of gallbladder without cholecystitis without obstruction.. COMPARISON: Abdominal ultrasound done on 10/10/2022.. TECHNIQUE: Serial gamma scintillation camera images were obtained over the abdomen for a total observation period of 90 minutes following the intravenous administration of 5 mCi Tc-99m mebrofenin. FINDINGS: There is good concentration of activity in the liver by 5 minutes post injection. Biliary activity is visualized by 10 minutes. The gallbladder is well visualized by 45 minutes. Small bowel is well visualized by 48 minutes. At 90 minutes post radiopharmaceutical injection, a 30-minute infusion of 2.07 micrograms Sincalide was then begun and an additional 30 minutes of images were obtained. There is no emptying of the gallbladder. By the end of the study there is good clearance of activity from the liver and visualization of diffuse small bowel activity. The patient developed pain following administration of CCK (8 out of 10). The calculated gallbladder ejection fraction is 0% (normal gallbladder ejection fraction is greater than 35%). NM/NM hepatobiliary w pharm IMPRESSION: Visualization of the gallbladder is evidence of a patent cystic duct and strong evidence against the diagnosis of acute cholecystitis. The common bile duct is patent. Gallbladder emptying and ejection fraction are abnormal. Liver function appears normal.
== END ==
LOC: HO.NUCMED 09:02
PROVIDERS: PCP Internal Medicine; Visit Provider Nurse Practitioner
DX: K80.20 Calculus of gallbladder without cholecystitis without obstruction (principal)
CPT/HCPCS: 78227; A9537

== ENCOUNTER 2023-01-09 12:56 | Emergency (ER) | payer OTHER, SELFPAY ==
--- NOTE | ~2023-01-09 | XR_ITS ---
EXAMINATION: XR CHEST CLINICAL INFORMATION: Shortness of breath, cough. COMPARISON: 12/19/2022 chest radiographs. TECHNIQUE: 2 views of the chest were obtained. FINDINGS: No significant abnormality is noted involving the heart, lungs, mediastinum, bony thorax or soft tissues. XR/XR chest 2V IMPRESSION: No acute cardiopulmonary process.
--- NOTE | 2023-01-09 13:20 | ED.SOB ---
HPI - SOB/Dyspnea General Chief Complaint: Upper Respiratory Symptoms Stated Complaint: SOB Time Seen by Provider: 01/09/23 17:04 Source: patient Mode of arrival: ambulatory Limitations: no limitations History of Present Illness HPI Narrative: Patient obese with questionable obstructive sleep apnea will be getting sleep studies on 01/21 no diagnosis of asthma has seen the lung specialist complaining of shortness of breath feels when she sleeps her throat closes saturating 98% at room air his symptoms are going on for last 1 year got worse in last 2 days patient has not gained any significant weight Related Data Home Medications Medication Instructions Recorded Confirmed sertraline 100 mg tablet 100 mg PO DAILY 08/22/20 01/03/23 bupropion HCl 150 mg 24 hr tablet, 150 mg PO QAM 05/03/21 01/03/23 extended release Previous Rx's Medication Instructions Recorded lancets 28 gauge (FreeStyle #100 ea 06/27/20 Lancets) FreeStyle Lite Strips (blood sugar 4 strip miscellaneous QID 30 days 07/20/20 diagnostic) #100 strips miscellaneous medical supply 1 ea miscellaneous DAILY 99 days 01/03/21 #2 ea spironolactone 50 mg tablet 50 mg PO BID #60 tabs 01/05/22 hydroxyzine HCl 25 mg tablet See Rx Instructions .Route 04/04/22 .COMPLEX anxiety 30 days #180 tabs cyclobenzaprine 10 mg tablet 10 mg PO TID PRN muscle spasm #14 05/04/22 tabs ondansetron 4 mg disintegrating 4 mg PO Q8H PRN nausea and 05/04/22 tablet vomiting #10 tabs lidocaine 5 % topical patch 1 patch topical DAILY #15 ea 05/08/22 amlodipine 5 mg tablet (Norvasc) 5 mg PO DAILY #30 tabs 05/13/22 BEDSIDE COMMODE #1 ea 05/14/22 FRONT-WHEELED WALKER #1 ea 05/14/22 TUB SEAT with BACK #1 ea 05/14/22 labetalol 100 mg tablet 100 mg PO BID #180 tabs 06/21/22 linaclotide 145 mcg capsule 145 mcg PO QAM #30 caps 09/19/22 (Linzess) metoclopramide HCl 5 mg tablet 5 mg PO QIDACHS #120 tabs 09/19/22 (Reglan) naproxen 500 mg tablet 500 mg PO BID PRN pain 7 days #14 10/01/22 tabs tamsulosin 0.4 mg capsule 0.4 mg PO BEDTIME 14 days #14 caps 10/01/22 tramadol 50 mg tablet 50 mg PO Q6H PRN pain (scale score 10/01/22 1-3) #8 tabs gabapentin 400 mg capsule 400 mg PO TID 30 days #90 caps 10/17/22 Dexilant 60 mg capsule, delayed 60 mg PO DAILY #30 caps 12/20/22 release (dexlansoprazole) ibuprofen 800 mg tablet (IBU) 800 mg PO Q8H PRN pain/headaches 12/24/22 30 days #90 tabs albuterol sulfate 90 mcg/actuation 2 puff inhalation Q4-6H PRN 12/25/22 aerosol inhaler (Ventolin HFA) shortness of breath or wheezing #6.7 grams cyclobenzaprine 10 mg tablet 10 mg PO TID PRN muscle spasm #14 12/26/22 tabs diclofenac sodium 1 % topical gel 2 g topical QID PRN pain #100 grams 01/03/23 (Arthritis Pain (diclofenac)) ferrous sulfate 325 mg (65 mg 325 mg PO DAILY 30 days #30 tabs 01/03/23 iron) tablet (Feosol) prednisone 20 mg tablet 40 mg PO DAILY #10 tabs 01/09/23 pyridoxine (vitamin B6) 50 mg 50 mg PO DAILY 90 days #90 tabs 01/10/23 tablet Allergies Allergy/AdvReac Type Severity Reaction Status Date / Time amoxicillin [AMOXICILLIN] Allergy Intermediate NAUSEA & Verified 01/09/23 13:20 VOMITING, stomach pain, vomiting, stomach upset topiramate [From TOPAMAX] Allergy Intermediate TREMORS, Verified 01/09/23 13:20 nausea and vomiting latex [LATEX] Allergy Mild RASH Verified 01/09/23 13:20 medroxyprogesterone Allergy Mild RASH Verified 01/09/23 13:20 [From PROVERA] lactose Allergy bloating , Verified 01/09/23 13:20 diarrhea Review of Systems Review of Systems: Yes all other systems are reviewed and are negative PMFSH Past Medical History Medical History Anxiety Arthritis Carpal tunnel syndrome, bilateral Depression Depression Fibromyalgia Hyperlipemia Hypertension Insomnia Lower back pain Migraine Migraines Morbid obesity Morbid obesity with BMI of 40.0-44.9, adult Obesity Obesity (BMI 30-39.9) PCOS (polycystic ovarian syndrome) Polyuria Rheumatoid arthritis Second trimester Smoker Vulvar cyst Surgical History History of esophagogastroduodenoscopy (EGD) History of hip replacement, total History of removal of cyst History of tonsillectomy and adenoidectomy Family History Family History Father Medical history unknown Mother Diabetes Hypertension Maternal Aunt Breast cancer Ovarian cancer Mental health disorder Maternal Grandmother Diabetes Hypertension Social History Social History Household Members: Spouse and Children Housing: Condominium Alcohol intake: never Patient Tobacco Use Status: Former Tobacco user Tobacco use type: Cigarette Cigarettes Per Day: 3 e-Cigarette/Vaping Use: Never Used Second Hand Smoke Exposure: No Substance Use Type: Marijuana service: No Current occupational status: disabled Sexual orientation: Straight/Heterosexual Gender identity: Female Cognitive needs: No Hearing needs: No Vision needs: Yes Physical Exam Vital Signs: Vital Signs: Last Vital Signs Temp 98 F 01/09/23 13:21 Pulse 50 01/09/23 18:37 Resp 16 01/09/23 18:37 BP 113/70 01/09/23 18:37 Pulse Ox 100 01/09/23 18:37 O2 Del Method Room Air 01/09/23 18:37 BMI result Body Mass Index 39.1 Appearance: Alert. Oriented X3. No acute distress. ENT: Pharynx normal. Oral Mucosa moist Neck: Normal inspection. Neck supple. CVS: Normal heart rate and rhythm. Pulses normal. Respiratory: No respiratory distress. Equal air entry bilateral, prolonged expiration Abdomen: Soft and nontender. Bowel sounds are present, no mass palpable, no CVA tenderness Skin: Skin warm and dry. Normal skin color. Normal skin turgor. Extremities: No lower extremity edema. No calf tenderness Neuro: Oriented X 3. Course Course Course Narrative: RME - 32 yo female with history of fibromyalgia, depression, obesity, HTN, PCOS, bipolar disorder, ADHD who presents to the ER for evaluation of SOB x2 days along with cough and chills. +sick contacts with her children at home. Plan: CXR, covid swab Medications Administered Discontinued Medications Generic Name Dose Route Start Last Admin Trade Name Bob PRN Reason Stop Dose Admin Dexamethasone 10 mg 01/09/23 17:27 01/09/23 17:38 Dexamethasone 2 Mg Tablet PO 01/09/23 17:28 10 mg ONCE ONE Administration Medical Decision Making Medical Decision Making [facility] Narrative: Patient likely has sleep apnea at this time patient is saturating 98% room no significant respiratory distress so will give her a short course of steroids advised to continue inhaler and follow-up with documentation specialist as scheduled Lab Data Labs: Lab Results 01/09/23 01/09/23 Range/Units 14:18 18:18 POC Glucose 132 H (60-115) mg/dL COVID-19 (HARPAL) Negative (Negative) COVID-19 Clin Com See Note Discharge Plan Discharge Clinical Impression: Shortness of breath, Obstructive sleep apnea Patient Disposition: Home, Self-Care Instructions: Sleep Apnea (DC), Shortness of Breath (ED) Additional Instructions: Likely you have sleep apnea causing the shortness of breath, scheduled for sleep studies and follow with lung specialist Meanwhile you can take short course of prednisone and continue inhaler 2 puffs every 6 hours as needed Prescriptions: New prednisone 20 mg tablet 40 mg PO DAILY Qty: 10 0RF No Action FreeStyle Lite Strips Strip 4 strip miscellaneous QID 30 Days Qty: 100 1RF (DME) FRONT-WHEELED WALKER See Rx Instructions .Route .MEDSUPPLY Qty: 1 0RF Rx Instructions: As directed (DME) TUB SEAT with BACK See Rx Instructions .Route .MEDSUPPLY Qty: 1 0RF Rx Instructions: As directed (DME) BEDSIDE COMMODE See Rx Instructions .Route .MEDSUPPLY Qty: 1 0RF Rx Instructions: As directed labetalol 100 mg tablet 100 mg PO BID Qty: 180 1RF gabapentin 400 mg capsule 400 mg PO TID 30 Days Qty: 90 3RF Rx Instructions: 1 capsule Orally Three times a day Dexilant 60 mg capsule,biphase delayed releas 60 mg PO DAILY Qty: 30 6RF ibuprofen [IBU] 800 mg tablet 800 mg PO Q8H PRN (Reason: pain/headaches) 30 Days Qty: 90 0RF Rx Instructions: Take with food cyclobenzaprine 10 mg tablet 10 mg PO TID PRN (Reason: muscle spasm) Qty: 14 0RF ondansetron 4 mg tablet,disintegrating 4 mg PO Q8H PRN (Reason: nausea and vomiting) Qty: 10 0RF amlodipine [Norvasc] 5 mg tablet 5 mg PO DAILY Qty: 30 0RF cyclobenzaprine 10 mg tablet 10 mg PO TID PRN (Reason: muscle spasm) Qty: 14 0RF tramadol 50 mg tablet 50 mg PO Q6H PRN (Reason: pain (scale score 1-3)) Qty: 8 0RF tamsulosin 0.4 mg capsule 0.4 mg PO BEDTIME 14 Days Qty: 14 0RF naproxen 500 mg tablet 500 mg PO BID PRN (Reason: pain) 7 Days Qty: 14 0RF miscellaneous medical supply Misc 1 ea miscellaneous DAILY 99 Days Qty: 2 0RF sertraline 100 mg tablet 100 mg PO DAILY hydroxyzine HCl 25 mg tablet See Rx Instructions .ROUTE .COMPLEX 30 Days Qty: 180 3RF Rx Instructions: 1 to 2 tablets 3 times a day as needed for anxiety; lidocaine 5 % adhesive patch,medicated 1 patch topical DAILY Qty: 15 0RF Rx Instructions: leave on most painful area for up to 12 hrs ferrous sulfate [Feosol] 325 mg (65 mg iron) tablet 325 mg PO DAILY 30 Days Qty: 30 5RF diclofenac sodium [Arthritis Pain (diclofenac)] 1 % gel 2 g topical QID PRN (Reason: pain) Qty: 100 0RF albuterol sulfate [Ventolin HFA] 90 mcg/actuation HFA aerosol inhaler 2 puff inhalation Q4-6H PRN (Reason: shortness of breath or wheezing) Qty: 6.7 0RF (DME) lancets [FreeStyle Lancets] 28 gauge misc See Rx Instructions .ROUTE .MEDSUPPLY Qty: 100 1RF Rx Instructions: 4 times/day bupropion HCl 150 mg tablet extended release 24 hr 150 mg PO QAM spironolactone 50 mg tablet 50 mg PO BID Qty: 60 5RF metoclopramide HCl [Reglan] 5 mg tablet 5 mg PO QIDACHS Qty: 120 6RF Linzess 145 mcg capsule 145 mcg PO QAM Qty: 30 6RF pyridoxine (vitamin B6) 50 mg tablet 50 mg PO DAILY 90 Days Qty: 90 1RF Interventions: ED Discharge Assessment Last Done: 01/09/23 18:41 Discharge Date/Time: 01/09/23 18:46
[2023-01-09 13:21] VITALS: BP 149/104; PULSE 73; RESP 19; TEMP 36.6; O2SAT 98; BMI 39.1
[2023-01-09 14:44] LABS: COVID-19 Test Negative (Negative); IDNOW Serial# BCCEAD1C
[2023-01-09] MEDS: dexAMETHasone 2 MG TABLET 10 MG PO (17:38)
[2023-01-09 18:24] LABS: Glucose, Whole Blood 132 mg/dL (60-115)
[2023-01-09 18:37] VITALS: BP 113/70; PULSE 50; RESP 16; O2SAT 100
== END 2023-01-09 18:46 | disposition home or self-care (01) ==
PROVIDERS: Physician Assistant; Emergency Provider Internal Medicine; PCP Internal Medicine
DX: R06.02 Shortness of breath (principal); G47.33 Obstructive sleep apnea (adult) (pediatric); I10 Essential (primary) hypertension; E78.5 Hyperlipidemia, unspecified; E66.9 Obesity, unspecified; Z68.39 Body mass index [BMI] 39.0-39.9, adult; Z87.891 Personal history of nicotine dependence; Z79.899 Other long term (current) drug therapy; Z20.822 Contact with and (suspected) exposure to COVID-19
CPT/HCPCS: 71046; 82947; 87635; 99283; 99284; J8540

== ENCOUNTER 2023-01-10 11:20 | Outpatient (AMB) | payer OTHER, SELFPAY ==
--- NOTE | 2023-01-10 11:30 | MHC.OFFVIS ---
Intake Intake Visit Reasons: 3M US/Litho(12/27) Intake Note: Patient is present for Follow Up Ultrasound Urology Med:None Antibiotic Allergy:Amoxicillin Blood Thinner: None Pharmacy: [facility] Allergies amoxicillin [AMOXICILLIN] Allergy (Intermediate, Verified 01/09/23 13:20) NAUSEA & VOMITING, stomach pain, vomiting, stomach upset topiramate [From TOPAMAX] Allergy (Intermediate, Verified 01/09/23 13:20) TREMORS, nausea and vomiting latex [LATEX] Allergy (Mild, Verified 01/09/23 13:20) RASH medroxyprogesterone [From PROVERA] Allergy (Mild, Verified 01/09/23 13:20) RASH lactose Allergy (Verified 01/09/23 13:20) bloating , diarrhea HPI HPI Comments History of Present Illness Details Gabriella is a pleasant female. She is a patient Dr. Sherman. She is seen for the following urologic conditions - nephrolithiasis Discussed imaging results Minimal stone seen Continue fluid intake 6 month review Vitamin B6 Nephrolithiasis Initial presentation emergency room 10/07 Aunt has stones Imaging - 10/07 CT multiple 4mm stones bilateral - 01/06 ultrasound minimal stone Intervention - 10/07 right ureteroscopy with laser lithotripsy Stone composition - 10/07 pending Therapeutic plan - surveillance imaging - encourage fluids PFS Medical History Anxiety Arthritis Carpal tunnel syndrome, bilateral Depression Depression Fibromyalgia Hyperlipemia Hypertension Insomnia Lower back pain Migraine Migraines Morbid obesity Morbid obesity with BMI of 40.0-44.9, adult Obesity Obesity (BMI 30-39.9) PCOS (polycystic ovarian syndrome) Polyuria Rheumatoid arthritis Second trimester Smoker Vulvar cyst Surgical History History of esophagogastroduodenoscopy (EGD) History of hip replacement, total History of removal of cyst History of tonsillectomy and adenoidectomy Family History Father Medical history unknown Mother Diabetes Hypertension Maternal Aunt Breast cancer Ovarian cancer Mental health disorder Maternal Grandmother Diabetes Hypertension Social History Household Members: Spouse and Children Housing: Condominium Alcohol intake: never Patient Tobacco Use Status: Former Tobacco user Tobacco use type: Cigarette Cigarettes Per Day: 3 e-Cigarette/Vaping Use: Never Used Second Hand Smoke Exposure: No Substance Use Type: Marijuana service: No Current occupational status: disabled Sexual orientation: Straight/Heterosexual Gender identity: Female Cognitive needs: No Hearing needs: No Vision needs: Yes Female Reproductive History Menstrual Age of Menarche: 8 Review of Systems Const Denies chills and Denies fever(s) Card Reports no additional complaints and Denies syncope Resp Denies cough GI Denies abdominal pain and Denies heartburn Reports as per HPI and Denies change in libido Neuro Denies syncope Psych Denies change in libido Endo Denies change in libido Physical Exam Const General: cooperative, healthy appearing, comfortable and no acute distress Orientation/consciousness: patient oriented x3 HEENT Face and sinus: Yes normal facial exam Mouth: moist mucous membranes Neck Neck: Yes normal visual inspection, Yes full ROM and Yes trachea midline Chest Chest palpation & inspection: normal inspection of the chest Resp Effort & Inspection: normal respiratory effort, able to speak in complete sentences and no respiratory distress GI Inspection: Yes normal to inspection Back/Spine/Pelvis Cervical Spine: normal cervical lordosis Thoracic/Lumbar Spine: thoracic and lumbar spine normal to inspection Skin General skin exam: no rashes or lesions noted Neuro General: patient oriented x3, gait normal, tone normal and moves all extremities Extrem General: Yes normal to inspection and Yes capillary refill normal Assessment & Plan Assessment & Plan (1) Calculus of kidney: Code(s): N20.0 - Calculus of kidney Plan Start vitamin B6 Surveillance imaging Orders: Orders US renal BI 6 Months N20.0 - Calculus of kidney Medications: New pyridoxine (vitamin B6) 50 mg PO DAILY 90 days 90 tabs 1RF N20.0 - Calculus of kidney Patient Instructions: Imaging studies, laboratory and physical exam results were discussed and reviewed in detail. No major barriers to patient understanding were identified. An opportunity to ask questions regarding the treatment plan was provided. All questions were answered. The patient expressed understanding and agreement with the above treatment plan. The patient is aware they should contact our office by phone for worsening of their current condition or the appearance of new urologic symptoms. Compliance is encouraged with any medications and followup testing that is ordered. It is a privilege to participate in the urologic care of your patient. If you have any questions or concerns regarding treatment for the above conditions, or other urologic issues, please do not hesitate to contact me. The office telephone contact is [phone]. This note is constructed using voice recognition software. While every effort has been made to ensure accuracy liaison officer errors may have been included. Yours sincerely, Dr Jayson Rausch MD, [facility] - Urology Providers of Expert, Compassionate Care for the Genitourinary System Coding Level of Care Code Est Pt Level 3 (32455) Diagnoses Calculus of kidney N20.0
== END 2023-01-10 12:19 | disposition home or self-care (01) ==
PROVIDERS: Visit Provider Urology
DX: N20.0 Calculus of kidney (principal)
CPT/HCPCS: 99213

== ENCOUNTER → 2023-01-10 11:20 | Outpatient (BNVA) | payer OTHER, SELFPAY | PROVIDERS: Visit Provider Urology | DX: N20.0 Calculus of kidney (principal) | CPT/HCPCS: 99212 ==

== ENCOUNTER 2023-01-11 09:10 | Outpatient (AMB) | payer OTHER, SELFPAY ==
--- NOTE | 2023-01-11 09:13 | MHC.OFFVIS ---
Intake Vital Signs 01/11/23 09:14 Height 5 ft 1 in Weight 204 lb 2.369 oz BMI 38.6 BP 130/75 Blood Pressure Location Rt brachial Position Sitting Pulse 62 Pulse Oximetry (%) 100 Intake Visit Reasons: follow up HIDA scan Intake Note: Patient presents to in office visit today in follow up of HIDA scan. CC: Patient reports she continues to feel RUQ abdominal pain and feeling like a ball when she bents down. She also states having nausea and vomiting everyting she eats. She states she was found to have a blockage in her lungs about 4 days ago and is having trouble breatihing. She reports RUQ bloating and pain after eating. She states she is able to have BMs when takes Linzess. Denies other GI symptoms. Transonic Engineer Required: No Allergies amoxicillin [AMOXICILLIN] Allergy (Intermediate, Verified 01/28/23 00:40) NAUSEA & VOMITING, stomach pain, vomiting, stomach upset topiramate [From TOPAMAX] Allergy (Intermediate, Verified 01/28/23 00:40) TREMORS, nausea and vomiting latex [LATEX] Allergy (Mild, Verified 01/28/23 00:40) RASH medroxyprogesterone [From PROVERA] Allergy (Mild, Verified 01/28/23 00:40) RASH lactose Allergy (Verified 01/28/23 00:40) bloating , diarrhea HPI follow up HIDA scan HPI Details Assessment & Plan (1) Chronic idiopathic constipation: Code(s): K59.04 - Chronic idiopathic constipation Plan: She is dong well with the GERD and the Dexilant. She still struggles with CIC, only taking Linzess prn since she fears having a BM when not at home. RUP pain could be thoracic radiculopathy, bowel spasm, or gallstones discovered on US. Obviously we reviewed the ultrasound and the x-ray and there is reason to believe she may have T8/T9 radiculopathy in terms of spurring and she also does have gallstones although he can not be determined on ultrasound with this is the cause of her pain. It is also possible that her pain is from bowel spasm because she does not take her constipation medications regularly but I do not dare treat her with any sort of antispasmodic as this would likely worsen her constipation We will start by getting a HIDA scan to try to clarify the diagnosis. ROV after HIDA scan. (2) Delayed gastric emptying: Code(s): K30 - Functional dyspepsia (3) GERD (gastroesophageal reflux disease): Code(s): K21.9 - Gastro-esophageal reflux disease without esophagitis Qualifiers: Esophagitis presence: without esophagitis Qualified Code(s): K21.9 - Gastro-esophageal reflux disease without esophagitis (4) Thoracic back pain: Code(s): M54.6 - Pain in thoracic spine (5) Gallstones: Code(s): K80.20 - Calculus of gallbladder without cholecystitis without obstruction Orders: Orders NM hepatobiliary w pharm Today K80.20 - Calculus of gallbladder without cholecystitis without obstruction CORRESPONDENCE On 01/08/23 @ 09:25 Tj Limon Wrote To Kia Wheeler PT scheduled for this Saturday at 9:15. On 01/08/23 @ 08:35 Kia Wheeler Wrote To Tj Limon PLEASE GET PINKY ON MY SCHEDULE SO I CAN TALK TO HER ABOUT THE HIDA SCAN RESULTS... HIDA SCAN 01/07/23 FINDINGS: There is good concentration of activity in the liver by 5 minutes post injection. Biliary activity is visualized by 10 minutes. The gallbladder is well visualized by 45 minutes. Small bowel is well visualized by 48 minutes. At 90 minutes post radiopharmaceutical injection, a 30-minute infusion of 2.07 micrograms Sincalide was then begun and an additional 30 minutes of images were obtained. There is no emptying of the gallbladder. By the end of the study there is good clearance of activity from the liver and visualization of diffuse small bowel activity. The patient developed pain following administration of CCK (8 out of 10). The calculated gallbladder ejection fraction is 0% (normal gallbladder ejection fraction is greater than 35%). NM/NM hepatobiliary w pharm IMPRESSION: Visualization of the gallbladder is evidence of a patent cystic duct and strong evidence against the diagnosis of acute cholecystitis. The common bile duct is patent. Gallbladder emptying and ejection fraction are abnormal. Liver function appears normal. TODAY'S VISIT She has had multiple ER visits r/t SOB and she has had negative work ups so far in terms of acute findings via XR, EKG, and even a stress test. She recently had PFT's and will be seeing pulm soon She was told there is a blockage which I think means she has some form of COPD. She is currently on prednisone and albuterol which is not helping. She also will have a sleep study. Her GB EF is ZERO!! This is causing N/V and severe GERD with acid brash, it is possible that noc GERD is driving the respiratory response r/t possible aspiration of stomach contents over night. I will start her on Creon and send a referral to consult gen benito for possible elective racquel. She continues on reglan 5mg qidachs. ROV 2 weeks. [facility] Medical History Annual physical exam Annual physical exam Anxiety Atypical chest pain Bilateral primary osteoarthritis of hip control counseling BMI 39.0-39.9,adult Carpal tunnel syndrome of left wrist Carpal tunnel syndrome of right wrist Carpal tunnel syndrome, bilateral Depression Depression Fibromyalgia Hematoma of left lower extremity Hematoma of lower leg History of gestational diabetes Hyperlipemia Hypertension Insomnia Intermittent chest pain Left ear pain Left leg swelling Lower back pain Migraine Migraines Morbid obesity Morbid obesity with BMI of 40.0-44.9, adult Myofascial pain Neck pain Neck pain Obesity (BMI 30-39.9) Pain in left lopez PCOS (polycystic ovarian syndrome) Personal history of gestational diabetes Polyuria Post depression Rheumatoid arthritis Right-sided chest pain Sacroiliac joint pain Second trimester Shortness of breath Smoker Supervision of other high risk , antepartum Supervision of other normal Tension headache Thoracic back pain Trigger finger of left thumb Trigger finger of right thumb Vulvar cyst Wrist pain Surgical History History of esophagogastroduodenoscopy (EGD) History of hip replacement, total History of removal of cyst History of tonsillectomy and adenoidectomy Family History Father Medical history unknown Mother Diabetes Hypertension Maternal Aunt Breast cancer Ovarian cancer Mental health disorder Maternal Grandmother Diabetes Hypertension Social History Household Members: Spouse and Children Housing: Condominium Alcohol intake: never Patient Tobacco Use Status: Former Tobacco user Tobacco use type: Cigarette Cigarettes Per Day: 3 e-Cigarette/Vaping Use: Never Used Second Hand Smoke Exposure: No Substance Use Type: Marijuana service: No Current occupational status: disabled Sexual orientation: Straight/Heterosexual Gender identity: Female Cognitive needs: No Hearing needs: No Vision needs: Yes Female Reproductive History Menstrual Age of Menarche: 8 Review of Systems Const Denies fatigue, Denies fever(s), Denies night sweats, Denies poor appetite and Denies weight loss ENT Reports Normal hearing present, Denies dental pain, Denies dysphagia, Denies hearing loss, Denies mouth pain, Denies odynophagia, Denies throat swelling, Denies tongue swelling and Reports other (Dentition adequate) Card Reports no additional complaints Resp Reports no additional complaints GI Reports abdominal pain, Denies melena, Reports bloating, Denies hematochezia, Reports constipation, Denies GI cramping, Denies dysphagia, Denies excessive flatus, Denies early satiety, Reports dyspepsia, Reports heartburn, Denies diarrhea, Denies nausea, Denies odynophagia, Denies vomiting and Denies hematemesis Skin/Breast Denies pruritus, Denies lesions, Denies rash and Denies jaundice Neuro Reports Normal hearing present and Denies Abnormal speech present Endo Denies fatigue Aller/Immun Denies throat swelling and Denies tongue swelling Physical Exam Vital Signs: Last Vital Signs Pulse 62 01/11/23 09:14 BP 130/75 01/11/23 09:14 Pulse Ox 100 01/11/23 09:14 BMI result Body Mass Index 38.6 Const General: cooperative, no acute distress, well developed and well groomed Nutritional Appearance: well nourished and obese morbidly obese Orientation/consciousness: oriented to person, oriented to place and oriented to time Limitations: No language barrier HEENT Head: Yes normocephalic and Yes atraumatic Eyes General: appearance normal, both eyes and all related structures Pupils: Equal, round and reactive pupils present Neck Neck: Yes normal visual inspection and Yes no lymphadenopathy Thyroid: Thyroid normal Resp Effort & Inspection: normal respiratory effort and able to speak in complete sentences Auscultation: clear to auscultation bilaterally Cardio Rate: regular rate Rhythm: regular rhythm Heart sounds: Normal, physiologic split S2 sound present Peripheral pulses: radial pulses present and posterior tibial pulses present GI Inspection: No distended, Yes Abdominal panniculus present and Yes obesity Palpation (GI): Soft to palpation, nontender, no guarding, not rigid and No hepatosplenomegaly present Percussion: Yes normal to percussion Auscultation: normal bowel sounds Rectal Exam - Female: deferred Skin General skin exam: no rashes or lesions noted, turgor normal, skin not dry, no jaundice, No spider nevi and no striae Rashes: no rashes Nails: normal Neuro General: oriented to person, oriented to place and oriented to time Cranial nerves: Yes Equal, round and reactive pupils present and Yes Normal hearing present Speech: No Abnormal speech present Extrem General: Yes normal to inspection, No clubbing, No cyanosis and No edema Psych Appearance: grossly normal and well kempt Mental Status: mental status grossly normal Speech and movement: Normal speech and movement present Affect: normal affect Attitude: cooperative Thought process: Normal thought process present and not confabulating Thought content: Normal thought content present Insight: Limited insight present (Psych) Judgement: Limited judgement present (Psych) Assessment & Plan Assessment & Plan (1) Biliary dyskinesia: Comment: EF is 0% by HIDA Code(s): K82.8 - Other specified diseases of gallbladder (2) Gallstones: Code(s): K80.20 - Calculus of gallbladder without cholecystitis without obstruction Plan: She has had multiple ER visits r/t SOB and she has had negative work ups so far in terms of acute findings via XR, EKG, and even a stress test. She recently had PFT's and will be seeing pulm soon She was told there is a blockage which I think means she has some form of COPD. She is currently on prednisone and albuterol which is not helping. She also will have a sleep study. Her GB EF is ZERO!! This is causing N/V and severe GERD with acid brash, it is possible that noc GERD is driving the respiratory response r/t possible aspiration of stomach contents over night. I will start her on Creon and send a referral to consult gen benito for possible elective racquel. She continues on reglan 5mg qidachs along with Dexilant and Linzess 290 micro g. ROV 2 weeks. (3) Chronic idiopathic constipation: Code(s): K59.04 - Chronic idiopathic constipation (4) GERD (gastroesophageal reflux disease): Code(s): K21.9 - Gastro-esophageal reflux disease without esophagitis Qualifiers: Esophagitis presence: without esophagitis Qualified Code(s): K21.9 - Gastro-esophageal reflux disease without esophagitis (5) Delayed gastric emptying: Code(s): K30 - Functional dyspepsia (6) RUQ abdominal pain: Comment: on right same side as recent hip replacement and uksing crutch....? msk Code(s): R10.11 - Right upper quadrant pain Orders: Referrals General Surgery Referral K82.8 - Other specified diseases of gallbladder, K80.20 - Calculus of gallbladder without cholecystitis without obstruction, R10.11 - Right upper quadrant pain Medications: New [id number] 36,000-114,000- 180,000 unit (Creon) administer with meals and/or snacks 1 cap PO QID 120 caps 6RF K80.20 - Calculus of gallbladder without cholecystitis without obstruction, K82.8 - Other specified diseases of gallbladder Coding Level of Care Code Est Pt Level 4 (87204) Diagnoses Biliary dyskinesia K82.8 Gallstones K80.20 Chronic idiopathic constipation K59.04 GERD (gastroesophageal reflux disease) K21.9 Esophagitis presence: without esophagitis Delayed gastric emptying K30 RUQ abdominal pain R10.11
[2023-01-11 09:14] VITALS: BP 130/75; PULSE 62; O2SAT 100; BMI 38.6
== END 2023-01-11 09:56 | disposition home or self-care (01) ==
PROVIDERS: PCP Internal Medicine; Visit Provider Nurse Practitioner
DX: K82.8 Other specified diseases of gallbladder (principal); K80.20 Calculus of gallbladder without cholecystitis without obstruction; K59.04 Chronic idiopathic constipation; K21.9 Gastro-esophageal reflux disease without esophagitis; K30 Functional dyspepsia; R10.11 Right upper quadrant pain
CPT/HCPCS: 99214

== ENCOUNTER → 2023-01-11 09:10 | Outpatient (BNVA) | payer OTHER, SELFPAY | PROVIDERS: PCP Internal Medicine; Visit Provider Nurse Practitioner | DX: K82.8 Other specified diseases of gallbladder (principal); K80.20 Calculus of gallbladder without cholecystitis without obstruction; K59.04 Chronic idiopathic constipation; K21.9 Gastro-esophageal reflux disease without esophagitis; K30 Functional dyspepsia; R10.11 Right upper quadrant pain | CPT/HCPCS: 99212 ==

== ENCOUNTER 2023-01-16 09:17 | Outpatient (REF) | payer OTHER, SELFPAY ==
[2023-01-18 07:38] LABS: Immunoglobulin E 18 kU/L (<OR=114)
== END 2023-01-16 09:18 | disposition home or self-care (01) ==
LOC: HO.LAB 09:17
PROVIDERS: PCP Internal Medicine; Visit Provider Nurse Practitioner Family
DX: J44.9 Chronic obstructive pulmonary disease, unspecified (principal); J30.89 Other allergic rhinitis; R40.0 Somnolence; R06.83 Snoring; E66.9 Obesity, unspecified
CPT/HCPCS: 36415; 82785; 86003; 99212

== ENCOUNTER 2023-01-16 09:17 | Outpatient (AMB) | payer OTHER, SELFPAY ==
[2023-01-16 09:24] VITALS: BP 114/70; PULSE 64; O2SAT 100; BMI 39.6
--- NOTE | 2023-01-16 09:24 | A.OFFVIS_ITS ---
Intake Vital Signs 01/16/23 09:24 Height 5 ft 1 in Weight 209 lb 7.026 oz BMI 39.6 BP 114/70 Blood Pressure Location Lt brachial Position Sitting Pulse 64 Pulse Source Pulse Oximeter Pulse Oximetry (%) 100 Oxygen Delivery Method Room Air Intake Visit Reasons: Shortness of breath Case Management Manager Required: No Patient Registration Representative: Patient Registration Representative offered & declined Accompanied by: Family/Other Allergies amoxicillin [AMOXICILLIN] Allergy (Intermediate, Verified 01/16/23 09:28) NAUSEA & VOMITING, stomach pain, vomiting, stomach upset topiramate [From TOPAMAX] Allergy (Intermediate, Verified 01/16/23 09:28) TREMORS, nausea and vomiting latex [LATEX] Allergy (Mild, Verified 01/16/23 09:28) RASH medroxyprogesterone [From PROVERA] Allergy (Mild, Verified 01/16/23 09:28) RASH lactose Allergy (Verified 01/16/23 09:28) bloating , diarrhea Medication List - Last Reconciled 01/16/23 by Esthela Lipscomb LPN albuterol sulfate 90 mcg/actuation (Ventolin HFA) 2 puffs inhalation Q4-6H PRN amlodipine (Norvasc) 5 mg PO DAILY [BEDSIDE COMMODE As directed] bupropion HCl 150 mg PO QAM cyclobenzaprine 10 mg PO TID PRN Dexilant (dexlansoprazole) 60 mg PO DAILY NS diclofenac sodium 1% (Arthritis Pain (diclofenac)) 2 grams topical QID PRN ferrous sulfate (Feosol) 325 mg PO DAILY 30 days FreeStyle Lite Strips (blood sugar diagnostic) 4 strips miscellaneous QID 30 days NS [FRONT-WHEELED WALKER As directed] gabapentin 400 mg PO TID 30 days hydroxyzine HCl 1 to 2 tablets 3 times a day as needed for anxiety; 30 days ibuprofen (IBU) 800 mg PO Q8H PRN 30 days labetalol 100 mg PO BID lancets (FreeStyle Lancets) 4 times/day lidocaine 5% 1 patch topical DAILY linaclotide (Linzess) 145 mcg PO QAM giehke-ttjcobxs-wacskru 36,000-114,000- 180,000 unit (Creon) 1 cap PO QID metoclopramide HCl (Reglan) 5 mg PO QIDACHS miscellaneous medical supply 1 ea miscellaneous DAILY 99 days naproxen 500 mg PO BID PRN 7 days ondansetron 4 mg PO Q8H PRN prednisone 40 mg (2 x 20 mg) PO DAILY pyridoxine (vitamin B6) 50 mg PO DAILY 90 days sertraline 100 mg PO DAILY spironolactone 50 mg PO BID tamsulosin 0.4 mg PO BEDTIME 14 days tramadol 50 mg PO Q6H PRN [TUB SEAT with BACK As directed] HPI Shortness of breath HPI Details Gabriella is a very pleasant 32-year-old female, never tobacco smoker, curr ent everyday marijuana smoker. She was referred by PCP for pulmonary evaluation. She did have a recent pulmonary function test which revealed moderate obstructive defect with residual air trapping. She denies any childhood asthma. She reports notable shortness of breath over the past 3 months with associated chest tightness. She was given course of prednisone with good effect, and has been using albuterol and Wixela. She also reports loud snoring, daytime sleepiness and gasping for air during the night. She has never had a sleep study. Has a family history of asthma including her mother, brother and daughter, no other lung conditions. [facility] Medical History Anxiety Arthritis Carpal tunnel syndrome, bilateral Depression Depression Fibromyalgia Hyperlipemia Hypertension Insomnia Lower back pain Migraine Migraines Morbid obesity Morbid obesity with BMI of 40.0-44.9, adult Obesity Obesity (BMI 30-39.9) PCOS (polycystic ovarian syndrome) Polyuria Rheumatoid arthritis Second trimester Smoker Vulvar cyst Surgical History History of esophagogastroduodenoscopy (EGD) History of hip replacement, total History of removal of cyst History of tonsillectomy and adenoidectomy Family History Father Medical history unknown Mother Diabetes Hypertension Maternal Aunt Breast cancer Ovarian cancer Mental health disorder Maternal Grandmother Diabetes Hypertension Social History Household Members: Spouse and Children [facility] Alcohol intake: never Patient Tobacco Use Status: Former Tobacco user Tobacco use type: Cigarette Cigarettes Per Day: 3 e-Cigarette/Vaping Use: Never Used Second Hand Smoke Exposure: No Substance Use Type: Marijuana service: No Current occupational status: disabled Sexual orientation: Straight/Heterosexual Gender identity: Female Cognitive needs: No Hearing needs: No Vision needs: Yes Female Reproductive History Menstrual Age of Menarche: 8 Review of Systems Const Denies chills, Denies excessive sweating, Denies fever(s), Denies headache(s) and Denies night sweats Eyes Denies dry eyes, Denies irritation and Denies itchy eyes ENT Reports Normal hearing present, Denies headache(s), Denies nasal congestion, Denies nasal discharge, Denies post nasal drip and Denies sore throat Card Denies chest pain, Denies chest pain at rest, Denies chest pain with activity, Denies claudication, Denies leg edema and Denies orthopnea Resp Denies chest congestion, Denies cough, Denies excessive phlegm production, Denies pain on inspiration, Denies pain with cough and Denies stridor Musc Denies myalgias Neuro Reports Normal hearing present and Denies headache(s) Endo Denies excessive sweating Teddy/Lymph Denies lymphadenopathy Aller/Immun Denies itchy eyes and Denies seasonal rhinorrhea Physical Exam Vital Signs: Last Vital Signs Pulse 64 01/16/23 09:24 BP 114/70 01/16/23 09:24 Pulse Ox 100 01/16/23 09:24 Oxygen Delivery Method Room Air 01/16/23 09:24 BMI result Body Mass Index 39.6 Const General: cooperative, healthy appearing, comfortable, no acute distress, well developed and alert Nutritional Appearance: obese Orientation/consciousness: patient oriented x3 Limitations: no limitations HEENT Head: Yes normal to inspection, Yes normocephalic and Yes atraumatic Ears: hearing grossly normal bilaterally and external ears normal Eyes General: appearance normal, both eyes and all related structures Eyelids: Yes eyelids normal Sclerae: sclerae normal EOM: EOMs intact bilaterally Neck Neck: Yes normal visual inspection and Yes no lymphadenopathy Lymphatic: no lymphadenopathy noted Chest Chest palpation & inspection: normal inspection of the chest Resp Effort & Inspection: normal respiratory effort, able to speak in complete sentences, no audible wheezes, no cough, no stridor, not tachypneic, no tripod positioning and no use of accessory muscles Auscultation: clear to auscultation bilaterally Cardio Jugular venous distension: no JVD Rate: regular rate Rhythm: regular rhythm Skin Other: warm, dry General skin exam: no rashes or lesions noted Neuro General: patient oriented x3 Cranial nerves: Yes Normal hearing present Cognition (Neuro): normal cognition Gait exam (Neuro): Normal gait present Extrem General: Yes normal to inspection, Yes capillary refill normal, Yes no clubbing, cyanosis or edema and Yes no pedal edema Psych Appearance: grossly normal and well kempt Speech and movement: Normal speech and movement present and Clear speech present Affect: normal affect Attitude: cooperative Thought process: Normal thought process present Thought content: Normal thought content present Insight: Good insight present (Psych) Judgement: Good judgement present (Psych) Results Reviewed Results Reviewed: Assessment & Plan Assessment & Plan (1) COPD (chronic obstructive pulmonary disease): Code(s): J44.9 - Chronic obstructive pulmonary disease, unspecified (2) Environmental and seasonal allergies: Code(s): J30.89 - Other allergic rhinitis (3) Daytime somnolence: Code(s): R40.0 - Somnolence (4) Loud snoring: Code(s): R06.83 - Snoring (5) Obesity (BMI 30-39.9): Code(s): E66.9 - Obesity, unspecified Plan Gabriella's symptoms are likely multifactorial with contribution from underlying pulmonary, allergic and obesity/deconditioning etiologies. Will send for labs to assess for allergies. Reviewed PFT results with patient which revealed a moderate obstructive and ventilatory defect with no response to bronchodilator as well as increased residual volume suggestive of air trapping. Given her age and findings of PFT, concern for emphysema. CXR unremarkable. Will send for chest CT to evaluate. Patient reported daytime somnolence and loud snoring. Prior home study negative for sleep apnea, but patient reports multiple disturbances with infant during the study. Will send for in lab sleep study. All questions answered and patient is in agreement of plan. Will follow up to review results. Orders: Orders Rast Allergen 01/16/23 J30.89 - Other allergic rhinitis Immunoglobulin E 01/16/23 J30.89 - Other allergic rhinitis RT PSG in-lab sleep study 01/16/23 E66.9 - Obesity, unspecified, R06.83 - Snoring, R40.0 - Somnolence CT chest wo IV con Today J44.9 - Chronic obstructive pulmonary disease, unspecified Medications: New fluticasone propion-salmeterol 115-21 mcg/actuation (Advair HFA) 2 puffs inhalation Q12H 12 grams 1RF Refilled albuterol sulfate 90 mcg/actuation (Ventolin HFA) 2 puffs inhalation Q4-6H PRN 1 ea 3RF shortness of breath or wheezing R06.02 - Shortness of breath Coding Level of Care Code New Pt Level 4 (25263) Diagnoses COPD (chronic obstructive pulmonary disease) J44.9 Environmental and seasonal allergies J30.89 Daytime somnolence R40.0 Loud snoring R06.83 Obesity (BMI 30-39.9) E66.9
== END 2023-01-16 10:09 | disposition home or self-care (01) ==
PROVIDERS: PCP Internal Medicine; Visit Provider Nurse Practitioner Family
DX: J44.9 Chronic obstructive pulmonary disease, unspecified (principal); J30.89 Other allergic rhinitis; R40.0 Somnolence; R06.83 Snoring; E66.9 Obesity, unspecified
CPT/HCPCS: 99214

== ENCOUNTER → 2023-01-22 09:24 | Outpatient (REF) | payer OTHER, SELFPAY ==
--- NOTE | 2023-01-22 09:26 | CA_ITS ---
Transthoracic Echocardiogram Patient (Last, First, Middle): Gabriella Sterling V Gender: Female Date of : 1990 Age: 32 Procedure Date: 01/22/2023 Procedure Type: Transthoracic Echocardiogram Location: OP Height: 154.94 cm Weight: 92.08 kg BSA: 1.90 m2 Heart Rate: bpm BP: 136 / 84 mmHg Water Main Inspector: CARMENZA Referring MD: Caprice PLUMMER Symptoms: R07.9 - Chest pain, unspecified Study Quality: Adequate ECG Rhythm: Sinus Conclusions: - The left ventricular systolic function is normal. The calculated ejection fraction is 63% by biplane method. - No obvious valvular pathology seen on this study. Findings Left Ventricle Normal left ventricular cavity size. There is mildly increased left ventricular wall thickness. The left ventricular systolic function is normal. The calculated ejection fraction is 63% by biplane method. There is no evidence of regional wall motion abnormalities. Diastolic function is normal for age. LV peak GLS -18.9%. Right Ventricle Normal right ventricular cavity size and systolic function. Atria Both atria are normal in size. Aortic Valve There is a normal trileaflet aortic valve. There is mild calcification of the aortic valve. There is no aortic valve stenosis. There is no aortic valve regurgitation. Mitral Valve The mitral valve appears normal. There is trace mitral valve regurgitation. There is no mitral valve stenosis. Pulmonic Valve The pulmonic valve is likely normal. Tricuspid Valve There is trace tricuspid valve regurgitation. Tricuspid regurgitation envelope is inadequate for calculation of right ventricular systolic pressure. Great Vessels The asc aorta is normal in size. Venous The inferior vena cava is normal in size and collapses greater than 50% with inspiration. Pericardium/Pleural There is no evidence of pericardial effusion. Prior Study Comparison No prior study available for comparison. Recommendations, Care & Conclusions No obvious valvular pathology seen on this study. Measurements 2D Linear Measurements IVSd: 1.07 0.6-0.9/0.6-1.0 cm LVIDd: 5.25 3.9-5.3/4.2-5.9 cm LVIDd Index: 2.76 2.4-3.2/2.2-3.1 cm/m2 LVIDs: 3.30 2.0-3.6 cm LVPWd: 1.07 0.7-1.1 cm LA Diam: 3.60 2.7-3.8/3.0-4.0 cm LAIDs Index: 1.89 1.5-2.3 cm/m2 LV Mass: 269.24 67-162/88-224 g LV Mass Index: 141.70 43-95/49-115 g/m2 LVOT Diam: 2.10 3.0+(-)1.3 cm 2D Systolic Function EF 4C: 66.00 >55% EF 2C: 61.60 >55% EF BiP: 63.20 >55% Mitral Valve MV Pk E: 0.90 MV PK A: 0.40 MV Decel Time: 285.00 E/A: 2.20 E'Lateral: 14.00 E'Medial: 8.49 E/E' Med: 10.50 E/E' Lat: 6.40 PHT: 84.00 MVA PHT: 2.62 Decel Ray: 3.14 Aortic Valve AoV Pk Hadley: 1.53 AoV Mn Hadley: 1.10 AoV VTI: 0.36 AoV Pk Grad: 9.00 Aov Mn Grad: 5.00 MICAELA Cont.VTI: 2.26 LVOT LVOT Pk Hadley: 1.07 LVOT Mn Hadley: 0.73 LVOT VTI: 0.23 LVOT Pk Grad: 5.00 LVOT Mn Grad: 2.00 LVOT Diam: 2.10 LVOT Area: 3.46 Diastolic Function MV Pk E: 0.90 MV Pk A: 0.40 E/A: 2.20 E'Medial: 8.49 E/E' Med: 10.50 E' Laterial: 14.00 E/E' Lat: 6.40 Right Ventricle TAPSE (mm): 25.40 TVS' Hadley: 13.80 Tricuspid Valve RA Press: 3.00 Great Vessels Aorta Sinus of Valsalva: 3.02 2.0-3.[address] Ridge: 2.24 1.7-3.4 cm Ao Asc: 2.50 2.1-3.4 cm Ao Arch: 2.40 Updated in Other Vendor System with Status of Final Julito Tai MD electronically signed on 01/22/2023 12:41:35 PM with status of Final
== END ==
LOC: HO.CARD 09:24
PROVIDERS: PCP Internal Medicine; Visit Provider Nurse Practitioner Family
DX: R07.9 Chest pain, unspecified (principal); R06.02 Shortness of breath
CPT/HCPCS: 93306; 93356

== ENCOUNTER → 2023-01-22 09:26 | Outpatient (BNV) | payer OTHER, SELFPAY | PROVIDERS: PCP Internal Medicine; Visit Provider Internal Medicine | DX: I36.1 Nonrheumatic tricuspid (valve) insufficiency (principal) | CPT/HCPCS: 93306 ==

== ENCOUNTER 2023-01-25 12:33 | Outpatient (AMB) | payer OTHER, SELFPAY ==
[2023-01-25 12:42] VITALS: BP 114/73; PULSE 68; BMI 39.4
--- NOTE | 2023-01-25 12:42 | MHC.OFFVIS ---
Intake Vital Signs 01/25/23 12:42 Height 5 ft 1 in Weight 208 lb 8.917 oz BMI 39.4 BP 114/73 Blood Pressure Location Rt brachial Position Sitting Pulse 68 Intake Visit Reasons: 2 week follow up Intake Note: Patient presents to in office visit today in follow up of abdominal pain. CC: Patient reports she continues to have RUQ abdominal pain, and constipation. Pie Icer Machine Required: No Allergies amoxicillin [AMOXICILLIN] Allergy (Intermediate, Verified 01/16/23 09:28) NAUSEA & VOMITING, stomach pain, vomiting, stomach upset topiramate [From TOPAMAX] Allergy (Intermediate, Verified 01/16/23 09:28) TREMORS, nausea and vomiting latex [LATEX] Allergy (Mild, Verified 01/16/23 09:28) RASH medroxyprogesterone [From PROVERA] Allergy (Mild, Verified 01/16/23 09:28) RASH lactose Allergy (Verified 01/16/23 09:28) bloating , diarrhea HPI 2 week follow up HPI Details She has had multiple ER visits r/t SOB and she has had negative work ups so far in terms of acute findings via XR, EKG, and even a stress test. She recently had PFT's and will be seeing pulm soon She was told there is a blockage which I think means she has some form of COPD. She is currently on prednisone and albuterol which is not helping. She also will have a sleep study. Her GB EF is ZERO!! This is causing N/V and severe GERD with acid brash, it is possible that noc GERD is driving the respiratory problems r/t possible aspiration of stomach contents over night. I will start her on Creon and send a referral to consult gen benito for possible elective racquel. She continues on reglan 5mg qidachs. ROV 2 weeks.? ? Assessment & Plan (1) Chronic idiopathic constipation: ?Code(s): K59.04 - Chronic idiopathic constipation (2) GERD (gastroesophageal reflux disease): ?Code(s): K21.9 - Gastro-esophageal reflux disease without esophagitis ?Qualifiers: ?Esophagitis presence:?without esophagitis? Qualified Code(s):?K21.9 - Gastro-esophageal reflux disease without esophagitis (3) Delayed gastric emptying: ?Code(s): K30 - Functional dyspepsia (4) Gallstones: ?Code(s): K80.20 - Calculus of gallbladder without cholecystitis without obstruction (5) Biliary dyskinesia: ?Comment: EF is 0% by HIDA ?Code(s): K82.8 - Other specified diseases of gallbladder (6) RUQ abdominal pain: ?Comment: on right same side as recent hip replacement and uksing crutch....? msk ?Code(s): R10.11 - Right upper quadrant pain ? ? ? Orders: Referrals General Surgery Re ferral ? K80.20 - Calculus of gallbladder wit hout cholecystitis without obstructi on, K82.8 - Other specified diseases of gallbladder, R 10.11 - Right uppe r quadrant pain ? Medications: New vgprud-hxanxxwx-ay ylase 36,000-114,0 00- 180,000 unit ( Creon) ?? administ er with meals and/ or snacks 1 cap? PO QID 120 caps 6RF K80.20 - Calculus of gallbladder wit hout cholecystitis without obstructi on, K82.8 - Other specified diseases of gallbladder HIDA SCAN 01/07/23? FINDINGS: There is good concentration of activity in the liver by 5 minutes post injection. Biliary activity is visualized by 10 minutes. The gallbladder is well visualized by 45 minutes. Small bowel is well visualized by 48 minutes. At 90 minutes post radiopharmaceutical injection, a 30-minute infusion of 2.07 micrograms Sincalide was then begun and an additional 30 minutes of images were obtained. There is no emptying of the gallbladder. By the end of the study there is good clearance of activity from the liver and visualization of diffuse small bowel activity. The patient developed pain following administration of CCK (8 out of 10). The calculated gallbladder ejection fraction is 0% (normal gallbladder ejection fraction is greater than 35%). NM/NM hepatobiliary w pharm IMPRESSION: Visualization of the gallbladder is evidence of a patent cystic duct and strong evidence against the diagnosis of acute cholecystitis. The common bile duct is patent. Gallbladder emptying and ejection fraction are abnormal. Liver function appears normal. CORRESPONDENCE On 01/08/23 @ 09:25 Tj Limon Wrote To Kia Wheeler PT scheduled for this Saturday at 9:15. On 01/08/23 @ 08:35 Kia Wheeler Wrote To Tj Limon PLEASE GET PINKY ON MY SCHEDULE SO I CAN TALK TO HER ABOUT THE HIDA SCAN RESULTS... TODAY'S VISIT She is feeling better with the creon, she has not vomited and had no more severe pain; but she now is not moving her bowels despite being adherent to her Linzess 145mcg. This sometimes happens, so we will increase the dose. She has an upcoming appt with Gen Surgery 01/31 to discuss possible racquel. ROV 4 weeks. [facility] Medical History (Updated 01/25/23 @ 13:02 by BUD Brewer) Annual physical exam Annual physical exam Anxiety Atypical chest pain Bilateral primary osteoarthritis of hip control counseling BMI 39.0-39.9,adult Carpal tunnel syndrome of left wrist Carpal tunnel syndrome of right wrist Carpal tunnel syndrome, bilateral Depression Depression Fibromyalgia Hematoma of left lower extremity Hematoma of lower leg History of gestational diabetes Hyperlipemia Hypertension Insomnia Intermittent chest pain Left ear pain Left leg swelling Lower back pain Migraine Migraines Morbid obesity Morbid obesity with BMI of 40.0-44.9, adult Myofascial pain Neck pain Neck pain Obesity (BMI 30-39.9) Pain in left lopez PCOS (polycystic ovarian syndrome) Personal history of gestational diabetes Polyuria Post depression Rheumatoid arthritis Right-sided chest pain Sacroiliac joint pain Second trimester Shortness of breath Smoker Supervision of other high risk , antepartum Supervision of other normal Tension headache Thoracic back pain Trigger finger of left thumb Trigger finger of right thumb Vulvar cyst Wrist pain Surgical History History of esophagogastroduodenoscopy (EGD) History of hip replacement, total History of removal of cyst History of tonsillectomy and adenoidectomy Family History Father Medical history unknown Mother Diabetes Hypertension Maternal Aunt Breast cancer Ovarian cancer Mental health disorder Maternal Grandmother Diabetes Hypertension Social History Household Members: Spouse and Children Housing: Condominium Alcohol intake: never Patient Tobacco Use Status: Former Tobacco user Tobacco use type: Cigarette Cigarettes Per Day: 3 e-Cigarette/Vaping Use: Never Used Second Hand Smoke Exposure: No Substance Use Type: Marijuana service: No Current occupational status: disabled Sexual orientation: Straight/Heterosexual Gender identity: Female Cognitive needs: No Hearing needs: No Vision needs: Yes Female Reproductive History Menstrual Age of Menarche: 8 Review of Systems Const Denies fatigue, Denies fever(s), Denies night sweats, Denies poor appetite and Denies weight loss ENT Reports Normal hearing present, Denies dental pain, Denies dysphagia, Denies hearing loss, Denies mouth pain, Denies odynophagia, Denies throat swelling, Denies tongue swelling and Reports other (Dentition adequate) Card Reports no additional complaints Resp Reports no additional complaints GI Denies abdominal pain, Denies melena, Denies bloating, Denies hematochezia, Reports constipation, Denies GI cramping, Denies dysphagia, Denies excessive flatus, Denies early satiety, Reports heartburn, Denies diarrhea, Denies nausea, Denies odynophagia, Denies vomiting and Denies hematemesis Skin/Breast Denies pruritus, Denies lesions, Denies rash and Denies jaundice Neuro Reports Normal hearing present and Denies Abnormal speech present Endo Denies fatigue Aller/Immun Denies throat swelling and Denies tongue swelling Physical Exam Vital Signs: Last Vital Signs Pulse 68 01/25/23 12:42 BP 114/73 01/25/23 12:42 BMI result Body Mass Index 39.4 Const General: cooperative, no acute distress, well developed and well groomed Nutritional Appearance: well nourished and obese Orientation/consciousness: oriented to person, oriented to place and oriented to time Limitations: No language barrier HEENT Head: Yes normocephalic and Yes atraumatic Eyes General: appearance normal, both eyes and all related structures Pupils: Equal, round and reactive pupils present Neck Neck: Yes normal visual inspection and Yes no lymphadenopathy Thyroid: Thyroid normal Resp Effort & Inspection: normal respiratory effort and able to speak in complete sentences Auscultation: clear to auscultation bilaterally Cardio Rate: regular rate Rhythm: regular rhythm Heart sounds: Normal, physiologic split S2 sound present Peripheral pulses: radial pulses present and posterior tibial pulses present GI Inspection: No distended, Yes Abdominal panniculus present and Yes obesity Palpation (GI): Soft to palpation, nontender, no guarding, not rigid and No hepatosplenomegaly present Percussion: Yes normal to percussion Auscultation: normal bowel sounds Rectal Exam - Female: deferred Skin General skin exam: no rashes or lesions noted, turgor normal, skin not dry, no jaundice, No spider nevi and no striae Rashes: no rashes Nails: normal Neuro General: oriented to person, oriented to place and oriented to time Cranial nerves: Yes Equal, round and reactive pupils present and Yes Normal hearing present Speech: No Abnormal speech present Extrem General: Yes normal to inspection, No clubbing, No cyanosis and No edema Psych Appearance: grossly normal and well kempt Mental Status: mental status grossly normal Speech and movement: Normal speech and movement present Affect: normal affect Attitude: cooperative Thought process: Normal thought process present and not confabulating Thought content: Normal thought content present Insight: Fair insight present (Psych) Judgement: Fair judgement present (Psych) Assessment & Plan Assessment & Plan (1) Biliary dyskinesia: Comment: EF is 0% by HIDA Code(s): K82.8 - Other specified diseases of gallbladder Plan: She is feeling better with the creon, she has not vomited and had no more severe pain; but she now is not moving her bowels despite being adherent to her Linzess 145mcg. This sometimes happens, so we will increase the dose. She has an upcoming appt with Gen Surgery 01/31 to discuss possible racquel. ROV 4 weeks. (2) Gallstones: Code(s): K80.20 - Calculus of gallbladder without cholecystitis without obstruction (3) RUQ abdominal pain: Comment: on right same side as recent hip replacement and uksing crutch....? msk Code(s): R10.11 - Right upper quadrant pain (4) Chronic idiopathic constipation: Code(s): K59.04 - Chronic idiopathic constipation (5) GERD (gastroesophageal reflux disease): Code(s): K21.9 - Gastro-esophageal reflux disease without esophagitis Qualifiers: Esophagitis presence: without esophagitis Qualified Code(s): K21.9 - Gastro-esophageal reflux disease without esophagitis (6) Delayed gastric emptying: Code(s): K30 - Functional dyspepsia Medications: New linaclotide (Linzess) 290 mcg PO QAM 30 days 30 caps 6RF K59.04 - Chronic idiopathic constipation On Hold linaclotide (Linzess) Hold Comment: Doctor's Order 145 mcg PO QAM 30 caps 6RF K59.04 - Chronic idiopathic constipation Coding Level of Care Code Est Pt Level 3 (94970) Diagnoses Biliary dyskinesia K82.8 Gallstones K80.20 RUQ abdominal pain R10.11 Chronic idiopathic constipation K59.04 GERD (gastroesophageal reflux disease) K21.9 Esophagitis presence: without esophagitis Delayed gastric emptying K30
== END 2023-01-25 13:11 | disposition home or self-care (01) ==
PROVIDERS: PCP Internal Medicine; Visit Provider Nurse Practitioner
DX: K82.8 Other specified diseases of gallbladder (principal); K80.20 Calculus of gallbladder without cholecystitis without obstruction; R10.11 Right upper quadrant pain; K59.04 Chronic idiopathic constipation; K21.9 Gastro-esophageal reflux disease without esophagitis; K30 Functional dyspepsia
CPT/HCPCS: 99213

== ENCOUNTER → 2023-01-25 12:33 | Outpatient (BNVA) | payer OTHER, SELFPAY | PROVIDERS: PCP Internal Medicine; Visit Provider Nurse Practitioner | DX: K82.8 Other specified diseases of gallbladder (principal); K80.20 Calculus of gallbladder without cholecystitis without obstruction; R10.11 Right upper quadrant pain; K59.04 Chronic idiopathic constipation; K21.9 Gastro-esophageal reflux disease without esophagitis; K30 Functional dyspepsia | CPT/HCPCS: 99212 ==

== ENCOUNTER 2023-01-28 00:35 | Emergency (ER) | payer OTHER, SELFPAY ==
--- NOTE | 2023-01-28 | ECG_ITS ---
Test Reason : DYSPNEA Blood Pressure : / mmHG Vent. Rate : 074 BPM Atrial Rate : 074 BPM P-R Int : 150 ms QRS Dur : 086 ms QT Int : 380 ms P-R-T Axes : 057 049 000 degrees QTc Int : 421 ms Normal sinus rhythm Normal ECG When compared with ECG of 26-DEC-2022 09:08, No significant change was found Referred By: Generic ED Physician Electronically Signed By:LEANA ÁLVAREZ MD
--- NOTE | ~2023-01-28 | XR_ITS ---
EXAMINATION: XR CHEST CLINICAL INFORMATION: Shortness of breath. COMPARISON: 01/09/2023 TECHNIQUE: 2 views of the chest were obtained. FINDINGS: The cardiomediastinal silhouette is normal. There is no focal consolidation or pleural effusion. The bony structures and soft tissues are unremarkable. XR/XR chest 2V IMPRESSION: No active cardiopulmonary disease.
[2023-01-28 00:40] VITALS: BP 143/80; PULSE 84; RESP 18; TEMP 36.4; O2SAT 100; BMI 39.1
[2023-01-28 01:03] LABS: MANUAL DIFF FLAG NO
[2023-01-28 01:15] LABS: Basophils Percent Auto 0.6 % (0-2); Eosinophils Absolute Auto 0.1 X10*3/uL (0.0-0.4); Hematocrit 29.4 % (37.0-47.0); Hemoglobin 9.2 g/dl (12.0-16.0); Imm Gran Abs Auto 0.04 X10*3/uL (0.00-0.03); Imm Gran Pct Auto 0.6 % (0.0-0.4); Lymphocytes Absolute Auto 2.4 X10*3/uL (1.2-4.9); Lymphocytes Percent Auto 34.7 % (20-40); Mean Corpuscular HGB Conc 31.3 g/dl (31.0-35.0); Mean Corpuscular Hemoglobin 25.6 pg (27.0-33.0); Mean Corpuscular Volume 81.7 fL (80.0-98.0); Mean Platelet Volume 10.6 fL (9.4-12.3); Monocytes Absolute Auto 0.7 X10*3/uL (0.1-1.2); Monocytes Percent Auto 10.1 % (2-11); Neutrophils Absolute Auto 3.6 x10*3/uL (2.0-8.3); Platelet Count 299 X10*3/uL (160-400); Red Cell Distribution Width 15.4 % (11.0-16.0); White Blood Count 6.9 X10*3/uL (4.8-10.8)
[2023-01-28 01:29] LABS: Alanine Aminotransferase 13 U/L (0-31); Albumin Level 3.7 g/dL (3.5-5.0); Alkaline Phosphatase 75 U/L (39-117); Anion Gap 12 (12-20); Aspartate Amino Transferase 19 U/L (5-31); Bilirubin Total 0.2 mg/dL (0.0-1.0); Blood Urea Nitrogen 11 mg/dL (9-16); Calcium 9.2 mg/dL (8.4-10.2); Carbon Dioxide 22 mmol/L (22-29); Chloride 111 mmol/L (96-108); Glucose Random 146 mg/dL (60-115); Potassium 3.8 mmol/L (3.3-5.1); Sodium 141 mmol/L (135-145); Total Protein 6.9 g/dL (6.5-8.0); Troponin-I High Sensitivity < 2.7 ng/L (<3.5-17.0)
[2023-01-28 01:36] LABS: Creatinine Clr Calc Pharmacy 128.7; Estimated Glomerular Filt Rate > 60
--- NOTE | 2023-01-28 07:30 | ED_ITS ---
HPI - General Adult General Chief complaint: Dyspnea Stated complaint: SoB, High BP Time Seen by Provider: 01/28/23 07:26 Source: patient Mode of arrival: ambulatory Limitations: no limitations History of Present Illness HPI narrative: patient with chronic migraines and headache for 1 week. Patient with long time chest pain and has had an echo and a nuclear stress which were reviewed and normal. Patient states she is taking her blood pressure medication Onset (ago): week(s) Related Data Home Medications Medication Instructions Recorded Confirmed sertraline 100 mg tablet 100 mg PO DAILY 08/22/20 01/16/23 bupropion HCl 150 mg 24 hr tablet, 150 mg PO QAM 05/03/21 01/16/23 extended release Previous Rx's Medication Instructions Recorded lancets 28 gauge (FreeStyle #100 ea 06/27/20 Lancets) FreeStyle Lite Strips (blood sugar 4 strip miscellaneous QID 30 days 07/20/20 diagnostic) #100 strips spironolactone 50 mg tablet 50 mg PO BID #60 tabs 01/05/22 hydroxyzine HCl 25 mg tablet See Rx Instructions .Route 04/04/22 .COMPLEX anxiety 30 days #180 tabs ondansetron 4 mg disintegrating 4 mg PO Q8H PRN nausea and 05/04/22 tablet vomiting #10 tabs lidocaine 5 % topical patch 1 patch topical DAILY #15 ea 05/08/22 amlodipine 5 mg tablet (Norvasc) 5 mg PO DAILY #30 tabs 05/13/22 BEDSIDE COMMODE #1 ea 05/14/22 FRONT-WHEELED WALKER #1 ea 05/14/22 TUB SEAT with BACK #1 ea 05/14/22 labetalol 100 mg tablet 100 mg PO BID #180 tabs 06/21/22 linaclotide 145 mcg capsule 145 mcg PO QAM #30 caps 09/19/22 (Linzess) metoclopramide HCl 5 mg tablet 5 mg PO QIDACHS #120 tabs 09/19/22 (Reglan) naproxen 500 mg tablet 500 mg PO BID PRN pain 7 days #14 10/01/22 tabs tamsulosin 0.4 mg capsule 0.4 mg PO BEDTIME 14 days #14 caps 10/01/22 tramadol 50 mg tablet 50 mg PO Q6H PRN pain (scale score 04/17/23 1-3) #8 tabs gabapentin 400 mg capsule 400 mg PO TID 30 days #90 caps 10/17/22 Dexilant 60 mg capsule, delayed 60 mg PO DAILY #30 caps 12/20/22 release (dexlansoprazole) ibuprofen 800 mg tablet (IBU) 800 mg PO Q8H PRN pain/headaches 12/24/22 30 days #90 tabs cyclobenzaprine 10 mg tablet 10 mg PO TID PRN muscle spasm #14 12/26/22 tabs diclofenac sodium 1 % topical gel 2 g topical QID PRN pain #100 grams 01/03/23 (Arthritis Pain (diclofenac)) ferrous sulfate 325 mg (65 mg 325 mg PO DAILY 30 days #30 tabs 01/03/23 iron) tablet (Feosol) prednisone 20 mg tablet 40 mg PO DAILY #10 tabs 01/09/23 pyridoxine (vitamin B6) 50 mg 50 mg PO DAILY 90 days #90 tabs 01/10/23 tablet [id number]-[id number]-[id number] 1 cap PO QID #120 caps 01/11/23 36,000-114,000-180,000 unit capsule,delay rel (Creon) albuterol sulfate 90 mcg/actuation 2 puff inhalation Q4-6H PRN 01/16/23 aerosol inhaler (Ventolin HFA) shortness of breath or wheezing #1 ea fluticasone propionate 115 2 puff inhalation Q12H #12 grams 01/16/23 mcg-salmeterol 21 mcg/actuation HFA inhaler (Advair HFA) linaclotide 290 mcg capsule 290 mcg PO QAM 30 days #30 caps 01/25/23 (Linzess) Allergies Allergy/AdvReac Type Severity Reaction Status Date / Time amoxicillin [AMOXICILLIN] Allergy Intermediate NAUSEA & Verified 01/28/23 00:40 VOMITING, stomach pain, vomiting, stomach upset topiramate [From TOPAMAX] Allergy Intermediate TREMORS, Verified 01/28/23 00:40 nausea and vomiting latex [LATEX] Allergy Mild RASH Verified 01/28/23 00:40 medroxyprogesterone Allergy Mild RASH Verified 01/28/23 00:40 [From PROVERA] lactose Allergy bloating , Verified 01/28/23 00:40 diarrhea Review of Systems Review of Systems: Yes all other systems are reviewed and are negative PMFSH Past Medical History Medical History Annual physical exam Annual physical exam Anxiety Atypical chest pain Bilateral primary osteoarthritis of hip control counseling BMI 39.0-39.9,adult Carpal tunnel syndrome of left wrist Carpal tunnel syndrome of right wrist Carpal tunnel syndrome, bilateral Depression Depression Fibromyalgia Hematoma of left lower extremity Hematoma of lower leg History of gestational diabetes Hyperlipemia Hypertension Insomnia Intermittent chest pain Left ear pain Left leg swelling Lower back pain Migraine Migraines Morbid obesity Morbid obesity with BMI of 40.0-44.9, adult Myofascial pain Neck pain Neck pain Obesity (BMI 30-39.9) Pain in left lopez PCOS (polycystic ovarian syndrome) Personal history of gestational diabetes Polyuria Post depression Rheumatoid arthritis Right-sided chest pain Sacroiliac joint pain Second trimester Shortness of breath Smoker Supervision of other high risk , antepartum Supervision of other normal Tension headache Thoracic back pain Trigger finger of left thumb Trigger finger of right thumb Vulvar cyst Wrist pain Surgical History History of esophagogastroduodenoscopy (EGD) History of hip replacement, total History of removal of cyst History of tonsillectomy and adenoidectomy Family History Family History Father Medical history unknown Mother Diabetes Hypertension Maternal Aunt Breast cancer Ovarian cancer Mental health disorder Maternal Grandmother Diabetes Hypertension Social History Social History Household Members: Spouse and Children Housing: Condominium Alcohol intake: never Patient Tobacco Use Status: Former Tobacco user Tobacco use type: Cigarette Cigarettes Per Day: 3 Smoked in Last 30 Days: No e-Cigarette/Vaping Use: Never Used Second Hand Smoke Exposure: No Use of substances other than those prescribed or required for medical reasons: Yes Substance Use Type: Marijuana Advance Directives: No Advance Directives Information Provided: No Patient : No service: No Current occupational status: disabled Sexual orientation: Straight/Heterosexual Gender identity: Female Cognitive needs: No Hearing needs: No Vision needs: Yes Physical Exam ED Vital Signs: Vital Signs - 24 hr 01/28/23 00:40 01/28/23 07:51 Temperature 97.6 F 97.8 F Pulse Rate 84 64 Respiratory Rate 18 18 Blood Pressure 143/80 H 117/69 Pulse Oximetry 100 Oxygen Delivery Method Room Air Room Air BMI result Body Mass Index 39.1 Const Other: obese Orientation/consciousness: oriented to person and patient oriented x3 Limitations: no limitations HENMT Head: Yes normal to inspection Ears: external ears normal General nose exam: Normal external nose present Mouth: Normal oral and palatal mucosa present and oropharynx normal Throat: Yes posterior oropharynx normal Eyes General: appearance normal, both eyes and all related structures Neck Neck: Yes normal visual inspection Chest Chest palpation & inspection: normal inspection of the chest Resp Auscultation: clear to auscultation bilaterally Cardio Jugular venous distension: no JVD Rate: regular rate Rhythm: regular rhythm Heart sounds: S1 normal heart sound present and S2 normal heart sound present GI Inspection: Yes normal to inspection Palpation (GI): Soft to palpation, nontender and No hepatosplenomegaly present Auscultation: normal bowel sounds General: Yes no CVA tenderness Back/Spine/Pelvis Back: no CVA tenderness Skin General skin exam: no rashes or lesions noted Neuro General: oriented to person and patient oriented x3 Cranial nerves: Yes CN's II-XII intact bilaterally Motor exam (neuro): 5/5 motor strength present throughout Extrem General: Yes normal to inspection Psych Appearance: grossly normal Course Reevaluation(s) Reevaluation #1: patient recieved toradol and phenergan for her headache. Patient with complete cardiac up workup recently that was normal Time: 09:26 Medications Administered Generic Name Dose Route Start Last Admin Trade Name Freq PRN Reason Stop Dose Admin Sodium Chloride 1,000 mls @ 999 mls/hr 01/28/23 07:45 01/28/23 08:48 Ns IVCONT 01/28/23 09:45 999 mls/hr .Q1H1M MARY Administration Discontinued Medications Generic Name Dose Route Start Last Admin Trade Name Freq PRN Reason Stop Dose Admin Promethazine HCl 25 mg/ Sodium 51 mls @ 204 mls/hr 01/28/23 07:42 01/28/23 09:17 Chloride IV 01/28/23 07:43 Infused ONCE ONE Infusion Ketorolac Tromethamine 30 mg 01/28/23 07:42 01/28/23 08:47 Ketorolac Tromethamine 30 Mg/Ml Vial IVPUSH 01/28/23 07:43 30 mg ONCE ONE Administration Medical Decision Making Differential Diagnosis Differential Diagnoses: The differential diagnosis associated with the presen tation includes (cardiac ischemia, Pneumonia, migraine, HTN were all considered) Admission/Observation Consideration of admission/observation: Escalation of care including admission/observation considered (upon arrival patient was considered for admis brittney) Lab Data MDM Lab Attestation statement: I reviewed the patient's lab results. (negative troponin, slightly elevated glucose was noted, anemia was noted) 01/28/23 00:58 01/28/23 00:58 Labs: Lab Results 01/28/23 01/28/23 01/28/23 Range/Units 00:58 00:58 00:58 WBC 6.9 (4.8-10.8) X10*3/uL RBC 3.60 L (4.20-5.50) X10*6/uL Hgb 9.2 L (12.0-16.0) g/dl Hct 29.4 L (37.0-47.0) % MCV 81.7 (80.0-98.0) fL MCH 25.6 L (27.0-33.0) pg MCHC 31.3 (31.0-35.0) g/dl RDW 15.4 (11.0-16.0) % Plt Count 299 (160-400) X10*3/uL MPV 10.6 (9.4-12.3) fL Immature Gran % (Auto) 0.6 H (0.0-0.4) % Neut % (Auto) 52.0 (45-73) % Lymph % (Auto) 34.7 (20-40) % Carroll % (Auto) 10.1 (2-11) % Eos % (Auto) 2.0 (0-4) % Baso % (Auto) 0.6 (0-2) % Lymph # (Auto) 2.4 (1.2-4.9) X10*3/uL Carroll # (Auto) 0.7 (0.1-1.2) X10*3/uL Eos # (Auto) 0.1 (0.0-0.4) X10*3/uL Baso # (Auto) 0.0 (0.0-0.2) X10*3/uL Abs Immat Gran (auto) 0.04 H (0.00-0.03) X10*3/uL Absolute Neuts (auto) 3.6 (2.0-8.3) x10*3/uL Absolute Nucleated RBC 0.000 (0.0-0.012) X10*3/uL Nucleated RBC % (auto) 0.0 (0.0-0.2) /100WBC Sodium 141 (135-145) mmol/L Potassium 3.8 (3.3-5.1) mmol/L Chloride 111 H (96-108) mmol/L Carbon Dioxide 22 (22-29) mmol/L Anion Gap 12 (12-20) BUN 11 (9-16) mg/dL Creatinine 0.65 (0.5-1.4) mg/dL Estim Creat Clear Calc 128.7 Estimated GFR > 60 Random Glucose 146 H (60-115) mg/dL Calcium 9.2 (8.4-10.2) mg/dL Total Bilirubin 0.2 (0.0-1.0) mg/dL AST 19 (5-31) U/L ALT 13 (0-31) U/L Alkaline Phosphatase 75 (39-117) U/L Troponin I High Sens < 2.7 (<3.5-17.0) ng/L Total Protein 6.9 (6.5-8.0) g/dL Albumin 3.7 (3.5-5.0) g/dL Independent Interpretation I performed an independent interpretation of an: Plain X-Ray (CXR no infiltrate) Independent Historian Clinical information obtained from an independent historian. History obtained from or confirmed by: Spouse External Record Review External record reviewed: Outpatient record (cardiac work up was reviewed as was stress test, and echo were all reviewed) Tests considered The following testing was considered but not selected: CT Head was considered but patient had a complete headache workup in the past Prescription Management I considered prescription management with: Pain Medication Chronic Conditions Patient?s care impacted by: Other (chest pain and headache are chronic conditions) Social Determinants Chronic depression I believe is a component Discharge Plan Discharge Clinical Impression: Migraines, Chest pain Patient Disposition: Home, Self-Care Instructions: Migraine Headache (ED), Chest Pain (ED) Prescriptions: No Action FreeStyle Lite Strips Strip 4 strip miscellaneous QID 30 Days Qty: 100 1RF (DME) FRONT-WHEELED WALKER See Rx Instructions .Route .MEDSUPPLY Qty: 1 0RF Rx Instructions: As directed (DME) TUB SEAT with BACK See Rx Instructions .Route .MEDSUPPLY Qty: 1 0RF Rx Instructions: As directed (DME) BEDSIDE COMMODE See Rx Instructions .Route .MEDSUPPLY Qty: 1 0RF Rx Instructions: As directed labetalol 100 mg tablet 100 mg PO BID Qty: 180 1RF gabapentin 400 mg capsule 400 mg PO TID 30 Days Qty: 90 3RF Rx Instructions: 1 capsule Orally Three times a day Dexilant 60 mg capsule,biphase delayed releas 60 mg PO DAILY Qty: 30 6RF ibuprofen [IBU] 800 mg tablet 800 mg PO Q8H PRN (Reason: pain/headaches) 30 Days Qty: 90 0RF Rx Instructions: Take with food ondansetron 4 mg tablet,disintegrating 4 mg PO Q8H PRN (Reason: nausea and vomiting) Qty: 10 0RF amlodipine [Norvasc] 5 mg tablet 5 mg PO DAILY Qty: 30 0RF cyclobenzaprine 10 mg tablet 10 mg PO TID PRN (Reason: muscle spasm) Qty: 14 0RF prednisone 20 mg tablet 40 mg PO DAILY Qty: 10 0RF tramadol 50 mg tablet 50 mg PO Q6H PRN (Reason: pain (scale score 1-3)) Qty: 8 0RF tamsulosin 0.4 mg capsule 0.4 mg PO BEDTIME 14 Days Qty: 14 0RF naproxen 500 mg tablet 500 mg PO BID PRN (Reason: pain) 7 Days Qty: 14 0RF sertraline 100 mg tablet 100 mg PO DAILY hydroxyzine HCl 25 mg tablet See Rx Instructions .ROUTE .COMPLEX 30 Days Qty: 180 3RF Rx Instructions: 1 to 2 tablets 3 times a day as needed for anxiety; lidocaine 5 % adhesive patch,medicated 1 patch topical DAILY Qty: 15 0RF Rx Instructions: leave on most painful area for up to 12 hrs ferrous sulfate [Feosol] 325 mg (65 mg iron) tablet 325 mg PO DAILY 30 Days Qty: 30 5RF diclofenac sodium [Arthritis Pain (diclofenac)] 1 % gel 2 g topical QID PRN (Reason: pain) Qty: 100 0RF (DME) lancets [RogelioStbrandon Lancruby] 28 gauge misc See Rx Instructions .ROUTE .MEDSUPPLY Qty: 100 1RF Rx Instructions: 4 times/day bupropion HCl 150 mg tablet extended release 24 hr 150 mg PO QAM spironolactone 50 mg tablet 50 mg PO BID Qty: 60 5RF metoclopramide HCl [Reglan] 5 mg tablet 5 mg PO QIDACHS Qty: 120 6RF Linzess 145 mcg capsule 145 mcg PO QAM Qty: 30 6RF Hold Instructions: Doctor's Order fluticasone propion-salmeterol [Advair HFA] 115-21 mcg/actuation HFA aerosol inhaler 2 puff inhalation Q12H Qty: 12 1RF albuterol sulfate [Ventolin HFA] 90 mcg/actuation HFA aerosol inhaler 2 puff inhalation Q4-6H PRN (Reason: shortness of breath or wheezing) Qty: 1 3RF pyridoxine (vitamin B6) 50 mg tablet 50 mg PO DAILY 90 Days Qty: 90 1RF Creon 36,000-114,000- 180,000 unit capsule,delayed release(DR/EC) 1 cap PO QID Qty: 120 6RF Rx Instructions: administer with meals and/or snacks Linzess 290 mcg capsule 290 mcg PO QAM 30 Days Qty: 30 6RF Referrals: Jarrod Sherman MD [Primary Care Provider] - 5 days
[2023-01-28 07:51] VITALS: BP 117/69; PULSE 64; RESP 18; TEMP 36.6
[2023-01-28] MEDS: Ketorolac Tromethamine 30 MG/ML VIAL IVPUSH (08:47)
[2023-01-28] MEDS: 0.9 % Sodium Chloride 1,000 ML 999 ML IVCONT ×2 (08:47→08:48)
== END 2023-01-28 09:35 | disposition home or self-care (01) ==
PROVIDERS: Emergency Provider Emergency Medicine; PCP Internal Medicine
DX: R07.9 Chest pain, unspecified (principal); G43.909 Migraine, unspecified, not intractable, without status migrainosus; R06.02 Shortness of breath; I10 Essential (primary) hypertension; E78.5 Hyperlipidemia, unspecified; F17.210 Nicotine dependence, cigarettes, uncomplicated; F12.90 Cannabis use, unspecified, uncomplicated; Z79.899 Other long term (current) drug therapy
CPT/HCPCS: 36415; 71046; 80053; 84484; 85025; 93005; 96365; 96375; 99284; 99285; J1885; J2550

== ENCOUNTER → 2023-01-28 00:52 | Outpatient (BNV) | payer OTHER, SELFPAY | PROVIDERS: Emergency Provider Emergency Medicine; PCP Internal Medicine; Visit Provider Internal Medicine Cardiovascular Disease | DX: R06.00 Dyspnea, unspecified (principal) | CPT/HCPCS: 93010 ==

== ENCOUNTER 2023-02-01 11:10 | Outpatient (REF) | payer OTHER, SELFPAY ==
--- NOTE | ~2023-02-01 | CT_ITS ---
EXAMINATION: CT CHEST WITHOUT CONTRAST CLINICAL INFORMATION: COPD COMPARISON: Previous chest x-ray January 2023 TECHNIQUE: Multidetector volumetric CT imaging of the chest was done. Axial MIP volume rendering provided. Sagittal and coronal reformatted images were obtained. This CT examination was performed using dose optimization techniques as appropriate, variously including the following: *Automated exposure control *Adjustment of mA and/or kV according to patient size (this includes techniques or standardized protocols for targeted exams where dose is matched to indication/reason for exam; i.e. extremities or head) *Use of iterative reconstruction technique DLP: 216 mGy-cm FINDINGS: GRAIN COMMODITY MANAGER: Normal LUNGS: The lungs are clear with no evidence of inflammation or nodules. No evidence of emphysema interstitial lung disease or bronchiectasis. No endobronchial or endotracheal lesion. MEDIASTINUM: The mediastinum is normal. CORONARY ARTERY CALCIFICATION: None visualized on this study. PLEURA: There is no pleural effusion. No pleural mass or thickening. AXILLA: No lymphadenopathy. UPPER ABDOMEN: Small bilateral renal stones. OSSEOUS STRUCTURES: Mild degenerative changes of the spine. CT/CT chest wo IV con IMPRESSION: Normal chest CT. Small bilateral renal stones. Fleischner guidelines were followed.
== END 2023-02-01 11:11 | disposition home or self-care (01) ==
LOC: HO.CT 11:10
PROVIDERS: PCP Internal Medicine; Visit Provider Nurse Practitioner Family
DX: J44.9 Chronic obstructive pulmonary disease, unspecified (principal)
CPT/HCPCS: 71250

== ENCOUNTER 2023-02-12 11:03 | Outpatient (AMB) | payer OTHER, SELFPAY ==
--- NOTE | 2023-02-12 11:07 | A.OFFVIS_ITS ---
Intake Vital Signs 02/12/23 11:08 Height 5 ft 1 in Weight 212 lb 8.41 oz BMI 40.2 BP 110/70 Blood Pressure Location Lt brachial Position Sitting Pulse 67 Intake Visit Reasons: [employer]/ [place]/chest pain Intake Note: NPV Youth Career Specialist Required: No Accompanied by: Self / Same As Patient Allergies amoxicillin [AMOXICILLIN] Allergy (Intermediate, Verified 02/12/23 11:10) NAUSEA & VOMITING, stomach pain, vomiting, stomach upset topiramate [From TOPAMAX] Allergy (Intermediate, Verified 02/12/23 11:10) TREMORS, nausea and vomiting latex [LATEX] Allergy (Mild, Verified 02/12/23 11:10) RASH medroxyprogesterone [From PROVERA] Allergy (Mild, Verified 02/12/23 11:10) RASH lactose Allergy (Verified 02/12/23 11:10) bloating , diarrhea Medication List - Last Reconciled 02/12/23 by Julito Tai MD albuterol sulfate 90 mcg/actuation (Ventolin HFA) 2 puffs inhalation Q4-6H PRN amlodipine (Norvasc) 5 mg PO DAILY [BEDSIDE COMMODE As directed] bupropion HCl 150 mg PO QAM cyclobenzaprine 10 mg PO TID PRN Dexilant (dexlansoprazole) 60 mg PO DAILY NS diclofenac sodium 1% (Arthritis Pain (diclofenac)) 2 grams topical QID PRN ferrous sulfate (Feosol) 325 mg PO DAILY 30 days fluticasone propion-salmeterol 115-21 mcg/actuation (Advair HFA) 2 puffs inhalation Q12H FreeStyle Lite Strips (blood sugar diagnostic) 4 strips miscellaneous QID 30 days NS [FRONT-WHEELED WALKER As directed] gabapentin 400 mg PO TID 30 days hydroxyzine HCl 1 to 2 tablets 3 times a day as needed for anxiety; 30 days ibuprofen (IBU) 800 mg PO Q8H PRN 30 days labetalol 100 mg PO BID lancets (FreeStyle Lancets) 4 times/day lidocaine 5% 1 patch topical DAILY linaclotide (Linzess) 290 mcg PO QAM 30 days linaclotide (Linzess) 145 mcg PO QAM [id number]-rknbjau 36,000-114,000- 180,000 unit (Creon) 1 cap PO QID metoclopramide HCl (Reglan) 5 mg PO QIDACHS naproxen 500 mg PO BID PRN 7 days ondansetron 4 mg PO Q8H PRN prednisone 40 mg (2 x 20 mg) PO DAILY pyridoxine (vitamin B6) 50 mg PO DAILY 90 days sertraline 100 mg PO DAILY spironolactone 50 mg PO BID tamsulosin 0.4 mg PO BEDTIME 14 days tramadol 50 mg PO Q6H PRN [TUB SEAT with BACK As directed] HPI HPI Comments History of Present Illness Details Gabriella is here for consultation regarding chest pain. She states that she has been having chest pain constantly, all day and essentially every day all the time. Somewhat of a sharp pain and some discomfort below the left breast. There is no variation whatsoever. No exertion components. Essentially pain all the time. No known coronary disease myocardial infarction or cardiomyopathy. Multiple comorbidities and also on polypharmacy. [facility] Medical History (Updated 02/12/23 @ 12:26 by Julito Tai MD) Annual physical exam Annual physical exam Anxiety Atypical chest pain Bilateral primary osteoarthritis of hip control counseling BMI 39.0-39.9,adult Carpal tunnel syndrome of left wrist Carpal tunnel syndrome of right wrist Carpal tunnel syndrome, bilateral Depression Depression Fibromyalgia Hematoma of left lower extremity Hematoma of lower leg History of gestational diabetes Hyperlipemia Hypertension Insomnia Intermittent chest pain Left ear pain Left leg swelling Lower back pain Migraine Migraines Morbid obesity Morbid obesity with BMI of 40.0-44.9, adult Myofascial pain Neck pain Neck pain Obesity (BMI 30-39.9) Pain in left lopez PCOS (polycystic ovarian syndrome) Personal history of gestational diabetes Polyuria Post depression Rheumatoid arthritis Right-sided chest pain Sacroiliac joint pain Second trimester Shortness of breath Smoker Supervision of other high risk , antepartum Supervision of other normal Tension headache Thoracic back pain Trigger finger of left thumb Trigger finger of right thumb Vulvar cyst Wrist pain Surgical History History of esophagogastroduodenoscopy (EGD) History of hip replacement, total History of removal of cyst History of tonsillectomy and adenoidectomy Family History Father Medical history unknown Mother Diabetes Hypertension Maternal Aunt Breast cancer Ovarian cancer Mental health disorder Maternal Grandmother Diabetes Hypertension Social History (Updated 02/12/23 @ 11:11 by Guera See) Household Members: Spouse and Children Housing: Condominium Alcohol intake: never Patient Tobacco Use Status: Former Tobacco user e-Cigarette/Vaping Use: Never Used Second Hand Smoke Exposure: No Substance Use Type: Marijuana service: No Current occupational status: disabled Sexual orientation: Straight/Heterosexual Gender identity: Female Cognitive needs: No Hearing needs: No Vision needs: Yes Female Reproductive History Menstrual Age of Menarche: 8 Review of Systems Const Denies chills, Denies daytime sleepiness, Denies fatigue, Denies fever(s), Denies frequent falls, Denies night sweats, Denies snoring, Denies weakness, Denies weight gain and Denies weight loss Eyes Denies loss of vision ENT Denies dizziness and Denies hearing loss Card Denies chest pain, Denies chest pain with activity, Denies syncope, Denies rapid heart rate, Denies edema, Denies claudication, Denies leg edema, Denies lightheadedness, Denies palpitations, Denies dyspnea, Denies dyspnea on exertion and Denies orthopnea Resp Denies cough, Denies excessive phlegm production, Denies dyspnea, Denies dyspnea on exertion, Denies snoring and Denies wheezing GI Denies abdominal pain, Denies hematochezia, Denies change in bowel habits, Denies change in stool character, Denies heartburn, Denies nausea and Denies vomiting Denies hematuria, Denies urinary frequency and Denies dysuria Musc Denies arthralgias, Denies muscle weakness, Denies numbness and Denies tingling Skin/Breast Denies nail changes and Denies rash Neuro Denies Abnormal speech present, Denies dizziness, Denies syncope, Denies frequent falls, Denies loss of vision, Denies memory loss, Denies numbness, Denies tingling and Denies weakness Psych Denies depression and Denies memory loss Endo Denies fatigue and Denies palpitations Aller/Immun Denies wheezing Physical Exam Vital Signs: Last Vital Signs Pulse 67 02/12/23 11:08 BP 110/70 02/12/23 11:08 BMI result Body Mass Index 40.2 Const General: comfortable and no acute distress Orientation/consciousness: patient oriented x3 HEENT Other: Unremarkable Head: Yes normal to inspection Neck Neck: Yes normal visual inspection Chest Chest palpation & inspection: normal inspection of the chest Resp Auscultation: clear to auscultation bilaterally Cardio Palpation: normal PMI Heart sounds: S1 normal heart sound present, S2 normal heart sound present, no gallops, no murmurs and no rubs GI Palpation (GI): Soft to palpation Back/Spine/Pelvis Other: unremarkable Skin General skin exam: no rashes or lesions noted Neuro General: patient oriented x3 Speech: No Abnormal speech present Extrem General: Yes normal to inspection Psych Mental Status: mental status grossly normal Assessment & Plan Assessment & Plan (1) Atypical chest pain: Code(s): R07.89 - Other chest pain Plan 12 lead EKG shows normal sinus rhythm, no significant ST-T changes and otherwise unremarkable. Several recent EKGs reviewed. Echocardiogram with LVEF of 63%. No wall motion abnormalities. Normal diastolic function. Normal strain. Otherwise unremarkable. Myocardial perfusion imaging study shows likely normal perfusion. Chest CT scan shows no coronary calcification and no other significant findings. High sensitivity troponins have been checked numerous times and essentially all of them are normal-almost 8 of them. Overall, atypical symptoms, unremarkable imaging and negative biomarkers in the past. Noncardiac etiology for symptoms. Reassurance only. Coding Level of Care Code New Pt Level 3 (71735) Diagnoses Atypical chest pain R07.89
[2023-02-12 11:08] VITALS: BP 110/70; PULSE 67; BMI 40.2
== END 2023-02-12 11:52 | disposition home or self-care (01) ==
PROVIDERS: PCP Internal Medicine; Referring Provider Internal Medicine; Visit Provider Internal Medicine
DX: R07.89 Other chest pain (principal)
CPT/HCPCS: 99203

== ENCOUNTER → 2023-02-12 21:30 | Outpatient (REF) | payer OTHER, SELFPAY | LOC: HO.SL 21:30 | PROVIDERS: PCP Internal Medicine; Visit Provider Nurse Practitioner Family | DX: E66.9 Obesity, unspecified (principal); R06.83 Snoring; R40.0 Somnolence; R07.89 Other chest pain; R06.02 Shortness of breath; Z79.899 Other long term (current) drug therapy | CPT/HCPCS: 95810; 99202 ==

== ENCOUNTER → 2023-02-12 21:34 | Outpatient (BNV) | payer OTHER, SELFPAY | PROVIDERS: PCP Internal Medicine; Visit Provider Internal Medicine | DX: G47.61 Periodic limb movement disorder (principal) | CPT/HCPCS: 95810 ==

== ENCOUNTER 2023-02-14 14:05 | Outpatient (AMB) | payer OTHER, SELFPAY ==
--- NOTE | 2023-02-14 14:05 | MHC.OFFVIS ---
Intake Vital Signs 02/14/23 14:13 Height 5 ft 1 in Weight 214 lb 11.684 oz BMI 40.6 BP 110/70 Blood Pressure Location Lt brachial Position Sitting Intake Visit Reasons: Calculus of gallbladder without cholecystitis Intake Note: Patient is seen in office for evaluation and treatment of the gallbladder. Patient c/o: onset years, admits to pain, radiates to the back, nausea and vomit, constipation, worse after meals, had HIDA scan done Lending Advisor Required: No Accompanied by: Other Relationship Allergies amoxicillin [AMOXICILLIN] Allergy (Intermediate, Verified 02/14/23 14:10) NAUSEA & VOMITING, stomach pain, vomiting, stomach upset topiramate [From TOPAMAX] Allergy (Intermediate, Verified 02/14/23 14:10) TREMORS, nausea and vomiting latex [LATEX] Allergy (Mild, Verified 02/14/23 14:10) RASH medroxyprogesterone [From PROVERA] Allergy (Mild, Verified 02/14/23 14:10) RASH lactose Allergy (Verified 02/14/23 14:10) bloating , diarrhea Medication List - Last Reconciled 02/14/23 by Haider Stanley MD albuterol sulfate 90 mcg/actuation (Ventolin HFA) 2 puffs inhalation Q4-6H PRN amlodipine (Norvasc) 5 mg PO DAILY [BEDSIDE COMMODE As directed] bupropion HCl 150 mg PO QAM cyclobenzaprine 10 mg PO TID PRN Dexilant (dexlansoprazole) 60 mg PO DAILY NS diclofenac sodium 1% (Arthritis Pain (diclofenac)) 2 grams topical QID PRN ferrous sulfate (Feosol) 325 mg PO DAILY 30 days fluticasone propion-salmeterol 115-21 mcg/actuation (Advair HFA) 2 puffs inhalation Q12H FreeStyle Lite Strips (blood sugar diagnostic) 4 strips miscellaneous QID 30 days NS [FRONT-WHEELED WALKER As directed] gabapentin 400 mg PO TID 30 days hydroxyzine HCl 1 to 2 tablets 3 times a day as needed for anxiety; 30 days ibuprofen (IBU) 800 mg PO Q8H PRN 30 days labetalol 100 mg PO BID lancets (FreeStyle Lancets) 4 times/day lidocaine 5% 1 patch topical DAILY linaclotide (Linzess) 290 mcg PO QAM 30 days linaclotide (Linzess) 145 mcg PO QAM [id number]-[id number] 36,000-114,000- 180,000 unit (Creon) 1 cap PO QID metoclopramide HCl (Reglan) 5 mg PO QIDACHS naproxen 500 mg PO BID PRN 7 days ondansetron 4 mg PO Q8H PRN pyridoxine (vitamin B6) 50 mg PO DAILY 90 days sertraline 100 mg PO DAILY spironolactone 50 mg PO BID tamsulosin 0.4 mg PO BEDTIME 14 days tramadol 50 mg PO Q6H PRN [TUB SEAT with BACK As directed] HPI HPI Comments History of Present Illness Details 32-year-old female patient presenting with complaints of right upper quadrant abdominal pain radiating to the back associated with nausea and vomiting. She reports the pain is present all the time but is made worse with eating especially when eating meat and fried foods. She reports feeling feverish but denies a fever. She underwent a workup with ultrasound of the abdomen which confirmed a large gallstone within the gallbladder. No wall thickening or pericholecystic fluid was event to indicate acute cholecystitis. Subsequent HIDA scan however revealed delayed emptying of the gallbladder with gallbladder stimulation suggestive of chronic cholecystitis. She presents today to discuss possible laparoscopic cholecystectomy. [facility] Medical History Annual physical exam Annual physical exam Anxiety Atypical chest pain Bilateral primary osteoarthritis of hip control counseling BMI 39.0-39.9,adult Carpal tunnel syndrome of left wrist Carpal tunnel syndrome of right wrist Carpal tunnel syndrome, bilateral Depression Depression Fibromyalgia Hematoma of left lower extremity Hematoma of lower leg History of gestational diabetes Hyperlipemia Hypertension Insomnia Intermittent chest pain Left ear pain Left leg swelling Lower back pain Migraine Migraines Morbid obesity Morbid obesity with BMI of 40.0-44.9, adult Myofascial pain Neck pain Neck pain Obesity (BMI 30-39.9) Pain in left lopez PCOS (polycystic ovarian syndrome) Personal history of gestational diabetes Polyuria Post depression Rheumatoid arthritis Right-sided chest pain Sacroiliac joint pain Second trimester Shortness of breath Smoker Supervision of other high risk , antepartum Supervision of other normal Tension headache Thoracic back pain Trigger finger of left thumb Trigger finger of right thumb Vulvar cyst Wrist pain Surgical History History of esophagogastroduodenoscopy (EGD) History of hip replacement, total History of removal of cyst History of tonsillectomy and adenoidectomy Family History Father Medical history unknown Mother Diabetes Hypertension Maternal Aunt Breast cancer Ovarian cancer Mental health disorder Maternal Grandmother Diabetes Hypertension Social History Household Members: Spouse and Children Housing: Condominium Alcohol intake: never Patient Tobacco Use Status: Former Tobacco user e-Cigarette/Vaping Use: Never Used Second Hand Smoke Exposure: No Substance Use Type: Marijuana service: No Current occupational status: disabled Sexual orientation: Straight/Heterosexual Gender identity: Female Cognitive needs: No Hearing needs: No Vision needs: Yes Female Reproductive History Menstrual Age of Menarche: 8 Review of Systems Const All systems reviewed & are unremarkable except as noted in HPI and below Denies chills, Denies fever(s), Denies headache(s), Denies poor appetite and Denies weakness ENT Denies headache(s) Card Denies chest pain, Denies irregular heart rhythm, Denies palpitations and Denies dyspnea Resp Denies cough, Denies excessive phlegm production and Denies dyspnea GI Reports abdominal pain, Denies bloating, Denies change in bowel habits, Denies constipation, Denies heartburn, Denies diarrhea, Reports nausea and Reports vomiting Denies urinary frequency Musc Denies back pain, Denies muscle weakness and Denies numbness Skin/Breast Denies changing lesions and Denies unusual bruising Neuro Denies headache(s), Denies numbness, Denies paresthesias and Denies weakness Psych Denies anxiety and Denies depression Endo Denies palpitations Teddy/Lymph Denies lymphadenopathy Physical Exam Vital Signs: Last Vital Signs BP 110/70 02/14/23 14:13 BMI result Body Mass Index 40.6 Const General: cooperative and no acute distress Nutritional Appearance: well nourished Orientation/consciousness: patient oriented x3 Limitations: no limitations HEENT Head: Yes normocephalic and Yes atraumatic Ears: hearing grossly normal bilaterally Resp Effort & Inspection: normal respiratory effort, no audible wheezes, no cough and no respiratory distress Cardio Jugular venous distension: no JVD GI Inspection: Yes normal to inspection and Yes Abdominal panniculus present Palpation (GI): Soft to palpation and Tenderness to palpation present (GI) in the RUQ and Munoz's sign positive Percussion: Yes normal to percussion Rectal Exam - Female: deferred Skin Other: Warm, dry, no rash, normal color Neuro General: patient oriented x3 Extrem General: Yes no clubbing, cyanosis or edema Assessment & Plan Assessment & Plan (1) Cholelithiasis with chronic cholecystitis: Code(s): K80.10 - Calculus of gallbladder with chronic cholecystitis without obstruction Plan 32-year-old female patient presenting with complaints of right upper quadrant abdominal pain radiating to the back associated with nausea and vomiting. Patient was found to have fatty food intolerance which increases the abdominal pain. Workup with ultrasound confirmed gallstones within the gallbladder and HIDA scan which revealed no emptying of the gallbladder with stimulation. Findings are consistent with chronic cholecystitis due to cholelithiasis. I recommended laparoscopic or possible open cholecystectomy. After discussion of the procedure, risks, and alternatives, she consents to a laparoscopic or possible open cholecystectomy. Coding Level of Care Code New Pt Level 4 (47526) Diagnoses Cholelithiasis with chronic cholecystitis K80.10
[2023-02-14 14:13] VITALS: BP 110/70; BMI 40.6
== END 2023-02-14 14:27 | disposition home or self-care (01) ==
PROVIDERS: PCP Internal Medicine; Referring Provider Nurse Practitioner; Visit Provider Surgery
DX: K80.10 Calculus of gallbladder with chronic cholecystitis without obstruction (principal)
CPT/HCPCS: 99204

== ENCOUNTER → 2023-02-14 14:05 | Outpatient (BNVA) | payer OTHER, SELFPAY | PROVIDERS: PCP Internal Medicine; Referring Provider Nurse Practitioner; Visit Provider Surgery | DX: K80.10 Calculus of gallbladder with chronic cholecystitis without obstruction (principal) | CPT/HCPCS: 99202 ==

== ENCOUNTER 2023-02-15 13:21 | Outpatient (REF) | payer OTHER, SELFPAY ==
--- NOTE | ~2023-02-15 | MM_ITS ---
EXAMINATION: MM DIAGNOSTIC DIGITAL BREAST TOMOSYNTHESIS, BILATERAL US BREAST LIMITED, LEFT MAMMOGRAPHY: CLINICAL INFORMATION: 32-year-old female complaining of palpable focus of abnormality left breast 2-3 o'clock axis which has now resolved with the patient's cycle ending. The patient can no longer localize this abnormality. Bilateral screening examination. COMPARISON: Mammography: Baseline exam. TECHNIQUE: Digital breast tomosynthesis is performed in both the craniocaudal and mediolateral oblique views along with computer-aided detection (CAD). Synthesized 2D images are generated from the tomosynthesis. FINDINGS: The breasts are almost entirely fatty (ACR BI-RADS breast composition Category a). There are no suspicious masses, suspicious grouped calcifications, or areas of architectural distortion. There is no mammographic abnormality in the left breast at the 2-3 o'clock axis to correlate with the purported focus of palpable concern. There is a benign oil cyst with peripheral calcification and a benign-appearing intramammary lymph node in the far posterior left breast seen only on the left MLO projection along the nipple line. There are no skin changes or axillary abnormalities. ULTRASOUND: CLINICAL INFORMATION: 32-year-old female complaining of palpable focus of abnormality left breast 2-3 o'clock axis which has now resolved with the patient's cycle ending. The patient can no longer localize this abnormality. Bilateral screening examination. COMPARISON: None relevant. TECHNIQUE: Targeted sonographic evaluation was performed using a high frequency linear transducer. Attention was paid to the left breast at the 2-3 o'clock axis although the patient could no longer localize for precision imaging. Selected archived documentation. FINDINGS: LEFT BREAST: There is a mixture of fatty and fibroglandular tissue. No suspicious mass is seen. There is no pathologic acoustic shadowing. There are no cystic abnormalities. There is no correlate to the purported region of palpable concern. MM/MM tomosynthesis diagnostic BI IMPRESSION: There are no mammographic or sonographic findings suspicious for malignancy in either breast. Purported palpable focus of concern in the left breast at the 2-3 o'clock axis shows no imaging correlate, and the patient can no longer localize. Recommend clinical management. Decision to biopsy a palpable focus of concern without imaging correlate must be determined on a clinical basis. OVERALL ASSESSMENT: Mammography: BI-RADS 1 - Negative Ultrasound: BI-RADS 1 - Negative RECOMMENDATION: 1 year F/U Results were provided to the patient at time of visit by the technologist. This patient's information was entered into a reminder system with a target due date for their next mammogram.
== END 2023-02-15 13:22 | disposition home or self-care (01) ==
LOC: HO.MAMMO 13:21
PROVIDERS: PCP Internal Medicine; Visit Provider Nurse Practitioner Family
DX: N63.25 Unspecified lump in the left breast, overlapping quadrants (principal)
CPT/HCPCS: 76642; 77062; 77066

== ENCOUNTER → 2023-02-15 14:00 | Outpatient (BNV) | payer OTHER, SELFPAY | PROVIDERS: PCP Internal Medicine; Visit Provider Radiology Diagnostic Radiology | DX: N63.20 Unspecified lump in the left breast, unspecified quadrant (principal) | CPT/HCPCS: 76642; 77062; 77066 ==

== ENCOUNTER 2023-02-18 01:24 | Emergency (ER) | payer OTHER, SELFPAY ==
--- NOTE | ~2023-02-18 | XR_ITS ---
EXAMINATION: XR CHEST CLINICAL INFORMATION: Shortness of breath and cough COMPARISON: 01/28/2023. TECHNIQUE: 2 views of the chest were obtained. FINDINGS: The cardiomediastinal silhouette is normal. There is no focal lung consolidation or pleural effusion. The bony structures and soft tissues are unremarkable. XR/XR chest 2V IMPRESSION: No active cardiopulmonary disease.
--- NOTE | 2023-02-18 01:26 | ECG_ITS ---
Test Reason : CP Blood Pressure : / mmHG Vent. Rate : 065 BPM Atrial Rate : 065 BPM P-R Int : 148 ms QRS Dur : 088 ms QT Int : 408 ms P-R-T Axes : 032 043 007 degrees QTc Int : 424 ms Normal sinus rhythm Normal ECG When compared with ECG of 28-JAN-2023 00:52, No significant change was found Referred By: Chilango Torres Electronically Signed By:ALBINO CRAMER
[2023-02-18 01:40] VITALS: BP 132/69; PULSE 63; RESP 15; TEMP 36.6; O2SAT 100; BMI 40.7
[2023-02-18 02:02] LABS: MANUAL DIFF FLAG NO
[2023-02-18 02:17] LABS: Alanine Aminotransferase 10 U/L (0-31); Albumin Level 3.5 g/dL (3.5-5.0); Alkaline Phosphatase 62 U/L (39-117); Anion Gap 10 (12-20); Aspartate Amino Transferase 13 U/L (5-31); Bilirubin Direct < 0.2 mg/dL (0.0-0.5); Bilirubin Total 0.2 mg/dL (0.0-1.0); Blood Urea Nitrogen 13 mg/dL (9-16); Calcium 8.7 mg/dL (8.4-10.2); Carbon Dioxide 26 mmol/L (22-29); Chloride 110 mmol/L (96-108); Creatinine Clr Calc Pharmacy 117.1; Estimated Glomerular Filt Rate > 60; Glucose Random 136 mg/dL (60-115); Lipase 27 U/L (8-78); Potassium 3.7 mmol/L (3.3-5.1); Sodium 142 mmol/L (135-145); Total Protein 6.2 g/dL (6.5-8.0)
[2023-02-18] MEDS: Albuterol Sulfate (0.083%) 2.5 MG/3 ML VIAL.NEB 5 MG INHALE (02:19)
[2023-02-18 02:20] VITALS: PULSE 60; RESP 16; O2SAT 96
[2023-02-18 02:38] LABS: COVID-19 Test Negative (Negative); IDNOW Serial# 08D9AD1C; IDNOW Serial# BCCEAD1C; Influenza A Negative (Negative); Influenza B2 Negative (Negative)
--- NOTE | 2023-02-18 02:42 | ED_ITS ---
HPI - Chest Pain General Chief Complaint: Chest Pain Stated Complaint: Chest Pain, n/v Time Seen by Provider: 02/18/23 01:59 Source: patient Mode of arrival: ambulatory History of Present Illness HPI narrative: 32-year-old female with few days of cough, congestion but also has history asthma/COPD and hypertension and states that she has anterior chest wall pain that worsens with deep inspiration and then according to the triage note reports right upper quadrant pain since last night, however patient did not mention this to me. She otherwise denies any fevers or chills. Related Data Home Medications Medication Instructions Recorded Confirmed sertraline 100 mg tablet 100 mg PO DAILY 08/22/20 02/14/23 bupropion HCl 150 mg 24 hr tablet, 150 mg PO QAM 05/03/21 02/14/23 extended release Previous Rx's Medication Instructions Recorded lancets 28 gauge (FreeStyle #100 ea 06/27/20 Lancets) FreeStyle Lite Strips (blood sugar 4 strip miscellaneous QID 30 days 07/20/20 diagnostic) #100 strips spironolactone 50 mg tablet 50 mg PO BID #60 tabs 01/05/22 hydroxyzine HCl 25 mg tablet See Rx Instructions .Route 04/04/22 .COMPLEX anxiety 30 days #180 tabs ondansetron 4 mg disintegrating 4 mg PO Q8H PRN nausea and 05/04/22 tablet vomiting #10 tabs lidocaine 5 % topical patch 1 patch topical DAILY #15 ea 05/08/22 amlodipine 5 mg tablet (Norvasc) 5 mg PO DAILY #30 tabs 05/13/22 BEDSIDE COMMODE #1 ea 05/14/22 FRONT-WHEELED WALKER #1 ea 05/14/22 TUB SEAT with BACK #1 ea 05/14/22 labetalol 100 mg tablet 100 mg PO BID #180 tabs 06/21/22 linaclotide 145 mcg capsule 145 mcg PO QAM #30 caps 09/19/22 (Linzess) metoclopramide HCl 5 mg tablet 5 mg PO QIDACHS #120 tabs 09/19/22 (Reglan) naproxen 500 mg tablet 500 mg PO BID PRN pain 7 days #14 10/01/22 tabs tamsulosin 0.4 mg capsule 0.4 mg PO BEDTIME 14 days #14 caps 10/01/22 tramadol 50 mg tablet 50 mg PO Q6H PRN pain (scale score 10/01/22 1-3) #8 tabs gabapentin 400 mg capsule 400 mg PO TID 30 days #90 caps 10/17/22 Dexilant 60 mg capsule, delayed 60 mg PO DAILY #30 caps 12/20/22 release (dexlansoprazole) ibuprofen 800 mg tablet (IBU) 800 mg PO Q8H PRN pain/headaches 12/24/22 30 days #90 tabs cyclobenzaprine 10 mg tablet 10 mg PO TID PRN muscle spasm #14 12/26/22 tabs diclofenac sodium 1 % topical gel 2 g topical QID PRN pain #100 grams 01/03/23 (Arthritis Pain (diclofenac)) ferrous sulfate 325 mg (65 mg 325 mg PO DAILY 30 days #30 tabs 01/03/23 iron) tablet (Feosol) pyridoxine (vitamin B6) 50 mg 50 mg PO DAILY 90 days #90 tabs 01/10/23 tablet saqlud-mhipkplj-tpatdwe 1 cap PO QID #120 caps 01/11/23 36,000-114,000-180,000 unit capsule,delay rel (Creon) albuterol sulfate 90 mcg/actuation 2 puff inhalation Q4-6H PRN 01/16/23 aerosol inhaler (Ventolin HFA) shortness of breath or wheezing #1 ea fluticasone propionate 115 2 puff inhalation Q12H #12 grams 01/16/23 mcg-salmeterol 21 mcg/actuation HFA inhaler (Advair HFA) linaclotide 290 mcg capsule 290 mcg PO QAM 30 days #30 caps 01/25/23 (Linzess) Allergies Allergy/AdvReac Type Severity Reaction Status Date / Time amoxicillin [AMOXICILLIN] Allergy Intermediate NAUSEA & Verified 02/14/23 14:10 VOMITING, stomach pain, vomiting, stomach upset topiramate [From TOPAMAX] Allergy Intermediate TREMORS, Verified 02/14/23 14:10 nausea and vomiting latex [LATEX] Allergy Mild RASH Verified 02/14/23 14:10 medroxyprogesterone Allergy Mild RASH Verified 02/14/23 14:10 [From PROVERA] lactose Allergy bloating , Verified 02/14/23 14:10 diarrhea Review of Systems Review of Systems: Pertinent positives and negatives as stated in [facility] Past Medical History Source: nursing notes reviewed Medical History Annual physical exam Annual physical exam Anxiety Atypical chest pain Bilateral primary osteoarthritis of hip control counseling BMI 39.0-39.9,adult Carpal tunnel syndrome of left wrist Carpal tunnel syndrome of right wrist Carpal tunnel syndrome, bilateral Depression Depression Fibromyalgia Hematoma of left lower extremity Hematoma of lower leg History of gestational diabetes Hyperlipemia Hypertension Insomnia Intermittent chest pain Left ear pain Left leg swelling Lower back pain Migraine Migraines Morbid obesity Morbid obesity with BMI of 40.0-44.9, adult Myofascial pain Neck pain Neck pain Obesity (BMI 30-39.9) Pain in left lopez PCOS (polycystic ovarian syndrome) Personal history of gestational diabetes Polyuria Post depression Rheumatoid arthritis Right-sided chest pain Sacroiliac joint pain Second trimester Shortness of breath Smoker Supervision of other high risk , antepartum Supervision of other normal Tension headache Thoracic back pain Trigger finger of left thumb Trigger finger of right thumb Vulvar cyst Wrist pain Surgical History History of esophagogastroduodenoscopy (EGD) History of hip replacement, total History of removal of cyst History of tonsillectomy and adenoidectomy Family History Family History Father Medical history unknown Mother Diabetes Hypertension Maternal Aunt Breast cancer Ovarian cancer Mental health disorder Maternal Grandmother Diabetes Hypertension Social History Social History Household Members: Spouse and Children Housing: Condominium Alcohol intake: never Patient Tobacco Use Status: Former Tobacco user Smoked in Last 30 Days: No e-Cigarette/Vaping Use: Never Used Second Hand Smoke Exposure: No Use of substances other than those prescribed or required for medical reasons: Yes Substance Use Type: Marijuana Advance Directives: No Advance Directives Information Provided: No service: No Current occupational status: disabled Sexual orientation: Straight/Heterosexual Gender identity: Female Cognitive needs: No Hearing needs: No Vision needs: Yes Physical Exam Vital Signs: Vital Signs: Last Vital Signs Temp 98.0 F 02/18/23 03:40 Pulse 67 02/18/23 03:40 Resp 18 02/18/23 03:40 BP 120/48 L 09/04/23 03:40 Pulse Ox 98 02/18/23 03:40 O2 Del Method Room Air 02/18/23 03:40 BMI result Body Mass Index 40.7 VITAL SIGNS: Reviewed. GENERAL: Well developed, well nourished, in no acute distress. HEAD: Normocephalic/atraumatic EYES: PERRLA, EOMI EARS: Ext canals without abnormality, TMs non-bulging and non-erythematous NOSE: Nares patent bilateral OROPHARYNX: no oral lesions noted, posterior pharynx clear and non-erythematous without noted tonsillar enlargement/erythema/exudates NECK: Supple, no adenopathy LUNGS: Decreased breath sounds bilaterally, no tachypnea and no expiratory wheeze/rhonchi/crackles. SpO2<100> CARDIOVASCULAR: Regular rate and rhythm without noted murmurs, ABDOMEN: Soft, non-tender, non-distended with bowel sounds. MUSCULOSKELETAL: No tenderness, deformities, or effusions noted on gross inspection. EXTREMITIES: No cyanosis, clubbing or edema. SKIN: Inspection of the skin reveals no rashes NEUROLOGIC: Alert and oriented x 4. Strength and sensation to light touch were grossly intact x 4. Medications Administered Discontinued Medications Generic Name Dose Route Start Last Admin Trade Name Freq PRN Reason Stop Dose Admin Albuterol Sulfate 5 mg 02/18/23 02:09 02/18/23 02:19 Albuterol Sulfate (0.083%) 2.5 Mg/3 Ml Vial.Neb INHALE 02/18/23 02:10 5 mg ONCE ONE Administration Medical Decision Making Medical Decision Making MDM Narrative: 32-year-old female with history and clinical presentation, DDX: Asthma exacerbation, viral illness, and lower clinical suspicion for pneumonia or ACS. I ordered 5 mg albuterol for the patient. I reviewed all investigations and hematologic indices are significant for a stable normocytic anemia but no leukocytosis or left shift and no thrombocytopenia. Chemistry indices are grossly within normal limits, there is no electrolyte or liver enzyme abnormality, troponin is undetectable similar to 01/28, there is no NARINDER. Urinalysis is significant for blood but patient is currently on her menstrual cycle and there is a small leukocyte esterase but is likely contamination as there is no presence of wbc's or bacteria. Viral testing is negative chest x-ray does not demonstrate any infiltrated otherwise my interpretation is in agreement with radiology's impression. EKG demonstrates normal sinus rhythm and no STEMI. Differential Diagnosis Differential Diagnoses: The differential diagnosis associated with the presentation includes Please see the discussion above Admission/Observation Consideration of admission/observation: Escalation of care including admission/observation considered Please see the discussion above Lab Data MDM Lab Attestation statement: I reviewed the patient's lab results. Please see the discussion above 02/18/23 01:57 02/18/23 01:57 Labs: Lab Results 02/18/23 02/18/23 02/18/23 Range/Units 01:57 01:57 01:57 WBC 7.3 (4.8-10.8) X10*3/uL RBC 3.37 L (4.20-5.50) X10*6/uL Hgb 8.5 L (12.0-16.0) g/dl Hct 27.7 L (37.0-47.0) % MCV 82.2 (80.0-98.0) fL MCH 25.2 L (27.0-33.0) pg MCHC 30.7 L (31.0-35.0) g/dl RDW 15.1 (11.0-16.0) % Plt Count 274 (160-400) X10*3/uL MPV 10.8 (9.4-12.3) fL Immature Gran % (Auto) 0.3 (0.0-0.4) % Neut % (Auto) 59.1 (45-73) % Lymph % (Auto) 27.8 (20-40) % Winston % (Auto) 10.5 (2-11) % Eos % (Auto) 1.9 (0-4) % Baso % (Auto) 0.4 (0-2) % Lymph # (Auto) 2.0 (1.2-4.9) X10*3/uL Winston # (Auto) 0.8 (0.1-1.2) X10*3/uL Eos # (Auto) 0.1 (0.0-0.4) X10*3/uL Baso # (Auto) 0.0 (0.0-0.2) X10*3/uL Abs Immat Gran (auto) 0.02 (0.00-0.03) X10*3/uL Absolute Neuts (auto) 4.3 (2.0-8.3) x10*3/uL Absolute Nucleated RBC 0.000 (0.0-0.012) X10*3/uL Nucleated RBC % (auto) 0.0 (0.0-0.2) /100WBC Sodium 142 (135-145) mmol/L Potassium 3.7 (3.3-5.1) mmol/L Chloride 110 H (96-108) mmol/L Carbon Dioxide 26 (22-29) mmol/L Anion Gap 10 L (12-20) BUN 13 (9-16) mg/dL Creatinine 0.73 (0.5-1.4) mg/dL Estim Creat Clear Calc 117.1 Estimated GFR > 60 Random Glucose 136 H (60-115) mg/dL Calcium 8.7 (8.4-10.2) mg/dL Total Bilirubin 0.2 (0.0-1.0) mg/dL Direct Bilirubin < 0.2 (0.0-0.5) mg/dL AST 13 (5-31) U/L ALT 10 (0-31) U/L Alkaline Phosphatase 62 (39-117) U/L Troponin I High Sens < 2.7 (<3.5-17.0) ng/L Total Protein 6.2 L (6.5-8.0) g/dL Albumin 3.5 (3.5-5.0) g/dL Lipase 27 (8-78) U/L COVID-19 (HARPAL) (Negative) COVID-19 Clin Com Influenza Type A (RAJESH) (Negative) Influenza Type B (RAJESH) (Negative) Influenza A & B Note 02/18/23 02/18/23 Range/Units 02:15 02:15 WBC (4.8-10.8) X10*3/uL RBC (4.20-5.50) X10*6/uL Hgb (12.0-16.0) g/dl Hct (37.0-47.0) % MCV (80.0-98.0) fL MCH (27.0-33.0) pg MCHC (31.0-35.0) g/dl RDW (11.0-16.0) % Plt Count (160-400) X10*3/uL MPV (9.4-12.3) fL Immature Gran % (Auto) (0.0-0.4) % Neut % (Auto) (45-73) % Lymph % (Auto) (20-40) % Winston % (Auto) (2-11) % Eos % (Auto) (0-4) % Baso % (Auto) (0-2) % Lymph # (Auto) (1.2-4.9) X10*3/uL Winston # (Auto) (0.1-1.2) X10*3/uL Eos # (Auto) (0.0-0.4) X10*3/uL Baso # (Auto) (0.0-0.2) X10*3/uL Abs Immat Gran (auto) (0.00-0.03) X10*3/uL Absolute Neuts (auto) (2.0-8.3) x10*3/uL Absolute Nucleated RBC (0.0-0.012) X10*3/uL Nucleated RBC % (auto) (0.0-0.2) /100WBC Sodium (135-145) mmol/L Potassium (3.3-5.1) mmol/L Chloride (96-108) mmol/L Carbon Dioxide (22-29) mmol/L Anion Gap (12-20) BUN (9-16) mg/dL Creatinine (0.5-1.4) mg/dL Estim Creat Clear Calc Estimated GFR Random Glucose (60-115) mg/dL Calcium (8.4-10.2) mg/dL Total Bilirubin (0.0-1.0) mg/dL Direct Bilirubin (0.0-0.5) mg/dL AST (5-31) U/L ALT (0-31) U/L Alkaline Phosphatase (39-117) U/L Troponin I High Sens (<3.5-17.0) ng/L Total Protein (6.5-8.0) g/dL Albumin (3.5-5.0) g/dL Lipase (8-78) U/L COVID-19 (HARPAL) Negative (Negative) COVID-19 Clin Com See Note Influenza Type A (RAJESH) Negative (Negative) Influenza Type B (RAJESH) Negative (Negative) Influenza A & B Note See Note Independent Interpretation I performed an independent interpretation of an: EKG Interpretation: Normal sinus rhythm, HR-65, no STEMI, NV/QRS/QTC is within normal limits. Radiology Impression Radiologist Impression: Please see the discussion above External Record Review External record reviewed: Outpatient record, Prior outpatient labs and Prior outpatient radiology Chronic Conditions Patient?s care impacted by: Hypertension Critical Care Time Critical Care Time Critical Care Time: Yes Total Critical Care Time: 30 Attestation: I personally attest to this time spent taking care of the patient. Discharge Plan Discharge Clinical Impression: Viral illness, COPD exacerbation Patient Disposition: Home, Self-Care Instructions: COPD (Chronic Obstructive Pulmonary Disease) (ED), Viral Syndrome (ED) Additional Instructions: 1. Resume all home medications as prescribed. I do recommend [id number] Tylenol/ibuprofen for additional symptom relief 2. Complete the short course of steroids as prescribed. Be mindful that the steroids can increase your blood pressure, glucose levels, and acid production. 3. Follow-up with primary care provider on Saturday morning. Return to the ER for any worsening symptoms. Prescriptions: No Action FreeStyle Lite Strips Strip 4 strip miscellaneous QID 30 Days Qty: 100 1RF (DME) FRONT-WHEELED WALKER See Rx Instructions .Route .MEDSUPPLY Qty: 1 0RF Rx Instructions: As directed (DME) TUB SEAT with BACK See Rx Instructions .Route .MEDSUPPLY Qty: 1 0RF Rx Instructions: As directed (DME) BEDSIDE COMMODE See Rx Instructions .Route .MEDSUPPLY Qty: 1 0RF Rx Instructions: As directed labetalol 100 mg tablet 100 mg PO BID Qty: 180 1RF gabapentin 400 mg capsule 400 mg PO TID 30 Days Qty: 90 3RF Rx Instructions: 1 capsule Orally Three times a day Dexilant 60 mg capsule,biphase delayed releas 60 mg PO DAILY Qty: 30 6RF ibuprofen [IBU] 800 mg tablet 800 mg PO Q8H PRN (Reason: pain/headaches) 30 Days Qty: 90 0RF Rx Instructions: Take with food ondansetron 4 mg tablet,disintegrating 4 mg PO Q8H PRN (Reason: nausea and vomiting) Qty: 10 0RF amlodipine [Norvasc] 5 mg tablet 5 mg PO DAILY Qty: 30 0RF cyclobenzaprine 10 mg tablet 10 mg PO TID PRN (Reason: muscle spasm) Qty: 14 0RF tramadol 50 mg tablet 50 mg PO Q6H PRN (Reason: pain (scale score 1-3)) Qty: 8 0RF tamsulosin 0.4 mg capsule 0.4 mg PO BEDTIME 14 Days Qty: 14 0RF naproxen 500 mg tablet 500 mg PO BID PRN (Reason: pain) 7 Days Qty: 14 0RF sertraline 100 mg tablet 100 mg PO DAILY hydroxyzine HCl 25 mg tablet See Rx Instructions .ROUTE .COMPLEX 30 Days Qty: 180 3RF Rx Instructions: 1 to 2 tablets 3 times a day as needed for anxiety; lidocaine 5 % adhesive patch,medicated 1 patch topical DAILY Qty: 15 0RF Rx Instructions: leave on most painful area for up to 12 hrs ferrous sulfate [Feosol] 325 mg (65 mg iron) tablet 325 mg PO DAILY 30 Days Qty: 30 5RF diclofenac sodium [Arthritis Pain (diclofenac)] 1 % gel 2 g topical QID PRN (Reason: pain) Qty: 100 0RF (DME) lancets [FreeStyle Lancets] 28 gauge misc See Rx Instructions .ROUTE .MEDSUPPLY Qty: 100 1RF Rx Instructions: 4 times/day bupropion HCl 150 mg tablet extended release 24 hr 150 mg PO QAM spironolactone 50 mg tablet 50 mg PO BID Qty: 60 5RF metoclopramide HCl [Reglan] 5 mg tablet 5 mg PO QIDACHS Qty: 120 6RF Linzess 145 mcg capsule 145 mcg PO QAM Qty: 30 6RF Hold Instructions: Doctor's Order fluticasone propion-salmeterol [Advair HFA] 115-21 mcg/actuation HFA aerosol inhaler 2 puff inhalation Q12H Qty: 12 1RF albuterol sulfate [Ventolin HFA] 90 mcg/actuation HFA aerosol inhaler 2 puff inhalation Q4-6H PRN (Reason: shortness of breath or wheezing) Qty: 1 3RF pyridoxine (vitamin B6) 50 mg tablet 50 mg PO DAILY 90 Days Qty: 90 1RF Creon 36,000-114,000- 180,000 unit capsule,delayed release(DR/EC) 1 cap PO QID Qty: 120 6RF Rx Instructions: administer with meals and/or snacks Linzess 290 mcg capsule 290 mcg PO QAM 30 Days Qty: 30 6RF Referrals: Jarrod Sherman MD [Primary Care Provider] -
[2023-02-18 02:44] LABS: Basophils Percent Auto 0.4 % (0-2); Eosinophils Absolute Auto 0.1 X10*3/uL (0.0-0.4); Eosinophils Percent Auto 1.9 % (0-4); Hematocrit 27.7 % (37.0-47.0); Hemoglobin 8.5 g/dl (12.0-16.0); Imm Gran Abs Auto 0.02 X10*3/uL (0.00-0.03); Imm Gran Pct Auto 0.3 % (0.0-0.4); Lymphocytes Percent Auto 27.8 % (20-40); Mean Corpuscular HGB Conc 30.7 g/dl (31.0-35.0); Mean Corpuscular Hemoglobin 25.2 pg (27.0-33.0); Mean Corpuscular Volume 82.2 fL (80.0-98.0); Mean Platelet Volume 10.8 fL (9.4-12.3); Monocytes Absolute Auto 0.8 X10*3/uL (0.1-1.2); Monocytes Percent Auto 10.5 % (2-11); Neutrophils Absolute Auto 4.3 x10*3/uL (2.0-8.3); Neutrophils Percent Auto 59.1 % (45-73); Platelet Count 274 X10*3/uL (160-400); Red Blood Count 3.37 X10*6/uL (4.20-5.50); Red Cell Distribution Width 15.1 % (11.0-16.0); White Blood Count 7.3 X10*3/uL (4.8-10.8)
[2023-02-18 03:14] LABS: Troponin-I High Sensitivity < 2.7 ng/L (<3.5-17.0)
[2023-02-18 03:40] VITALS: BP 120/48; PULSE 67; RESP 18; TEMP 36.7; O2SAT 98
[2023-02-18] MEDS: Acetaminophen 325 MG TABLET 975 MG PO (04:10)
[2023-02-18] MEDS: predniSONE 10 MG TABLET 50 MG PO (04:10)
== END 2023-02-18 04:17 | disposition home or self-care (01) ==
PROVIDERS: Emergency Provider Student in an Organized Health Care Education/Training Program; PCP Internal Medicine
DX: B34.9 Viral infection, unspecified (principal); J44.1 Chronic obstructive pulmonary disease with (acute) exacerbation; R07.89 Other chest pain; R05.9 Cough, unspecified; R11.2 Nausea with vomiting, unspecified; I10 Essential (primary) hypertension; Z20.822 Contact with and (suspected) exposure to COVID-19; Z20.828 Contact with and (suspected) exposure to other viral communicable diseases; Z87.891 Personal history of nicotine dependence; Z79.899 Other long term (current) drug therapy
CPT/HCPCS: 36415; 71046; 80048; 80076; 83690; 84484; 85025; 87502; 87635; 93005; 94640; 99284; 99285

== ENCOUNTER 2023-02-23 00:32 | Emergency (ER) | payer OTHER, SELFPAY ==
--- NOTE | 2023-02-23 | ECG_ITS ---
Test Reason : CP Blood Pressure : / mmHG Vent. Rate : 074 BPM Atrial Rate : 074 BPM P-R Int : 124 ms QRS Dur : 088 ms QT Int : 372 ms P-R-T Axes : 015 031 -03 degrees QTc Int : 412 ms Normal sinus rhythm Normal ECG When compared with ECG of 18-FEB-2023 01:32, No significant change was found Referred By: Generic ED Physician Electronically Signed By:ALBINO CRAMER
[2023-02-23 00:37] VITALS: BP 137/64; PULSE 75; RESP 18; TEMP 37; O2SAT 97; BMI 40.2
[2023-02-23 01:59] LABS: Hematocrit 28.5 % (37.0-47.0); Hemoglobin 9.1 g/dl (12.0-16.0); Mean Corpuscular HGB Conc 31.9 g/dl (31.0-35.0); Mean Corpuscular Hemoglobin 25.4 pg (27.0-33.0); Mean Corpuscular Volume 79.6 fL (80.0-98.0); Mean Platelet Volume 10.9 fL (9.4-12.3); Platelet Count 302 X10*3/uL (160-400); Red Blood Count 3.58 X10*6/uL (4.20-5.50); Red Cell Distribution Width 15.1 % (11.0-16.0); White Blood Count 12.3 X10*3/uL (4.8-10.8)
[2023-02-23 02:17] LABS: Alanine Aminotransferase 10 U/L (0-31); Albumin Level 3.8 g/dL (3.5-5.0); Alkaline Phosphatase 68 U/L (39-117); Anion Gap 11 (12-20); Aspartate Amino Transferase 13 U/L (5-31); Bilirubin Total 0.2 mg/dL (0.0-1.0); Blood Urea Nitrogen 10 mg/dL (9-16); Calcium 9.3 mg/dL (8.4-10.2); Carbon Dioxide 24 mmol/L (22-29); Chloride 109 mmol/L (96-108); Creatinine Clr Calc Pharmacy 123.3; Estimated Glomerular Filt Rate > 60; Glucose Random 97 mg/dL (60-115); Potassium 3.8 mmol/L (3.3-5.1); Sodium 140 mmol/L (135-145); Total Protein 6.7 g/dL (6.5-8.0)
[2023-02-23 02:27] LABS: Troponin-I High Sensitivity < 2.7 ng/L (<3.5-17.0)
[2023-02-23 02:35] LABS: Influenza A PCR NEGATIVE (Negative); Influenza B PCR NEGATIVE (Negative); Resp Syncy Virus RNA Qual PCR NEGATIVE (Negative); SARS COV2 PCR INHOUSE NEGATIVE (Negative)
--- NOTE | 2023-02-23 02:53 | ED.CHESTPAIN ---
HPI - Chest Pain General Chief Complaint: Chest Pain Stated Complaint: Fever/Sore throat/Earache Time Seen by Provider: 02/23/23 02:44 Source: patient Mode of arrival: ambulatory Limitations: no limitations History of Present Illness HPI narrative: Patient came for cold symptoms cough with chest pain body aches tiredness since yesterday patient's baby baby was also sick test negative patient does have dry cough no fever no chills has sore throat Related Data Home Medications Medication Instructions Recorded Confirmed sertraline 100 mg tablet 100 mg PO DAILY 08/22/20 02/14/23 bupropion HCl 150 mg 24 hr tablet, 150 mg PO QAM 05/03/21 02/14/23 extended release Previous Rx's Medication Instructions Recorded lancets 28 gauge (FreeStyle #100 ea 06/27/20 Lancets) FreeStyle Lite Strips (blood sugar 4 strip miscellaneous QID 30 days 07/20/20 diagnostic) #100 strips spironolactone 50 mg tablet 50 mg PO BID #60 tabs 01/05/22 hydroxyzine HCl 25 mg tablet See Rx Instructions .Route 04/04/22 .COMPLEX anxiety 30 days #180 tabs ondansetron 4 mg disintegrating 4 mg PO Q8H PRN nausea and 05/04/22 tablet vomiting #10 tabs lidocaine 5 % topical patch 1 patch topical DAILY #15 ea 05/08/22 amlodipine 5 mg tablet (Norvasc) 5 mg PO DAILY #30 tabs 05/13/22 BEDSIDE COMMODE #1 ea 05/14/22 FRONT-WHEELED WALKER #1 ea 05/14/22 TUB SEAT with BACK #1 ea 05/14/22 labetalol 100 mg tablet 100 mg PO BID #180 tabs 06/21/22 linaclotide 145 mcg capsule 145 mcg PO QAM #30 caps 09/19/22 (Linzess) metoclopramide HCl 5 mg tablet 5 mg PO QIDACHS #120 tabs 09/19/22 (Reglan) naproxen 500 mg tablet 500 mg PO BID PRN pain 7 days #14 10/01/22 tabs tamsulosin 0.4 mg capsule 0.4 mg PO BEDTIME 14 days #14 caps 10/01/22 tramadol 50 mg tablet 50 mg PO Q6H PRN pain (scale score 10/01/22 1-3) #8 tabs gabapentin 400 mg capsule 400 mg PO TID 30 days #90 caps 10/17/22 Dexilant 60 mg capsule, delayed 60 mg PO DAILY #30 caps 12/20/22 release (dexlansoprazole) ibuprofen 800 mg tablet (IBU) 800 mg PO Q8H PRN pain/headaches 12/24/22 30 days #90 tabs cyclobenzaprine 10 mg tablet 10 mg PO TID PRN muscle spasm #14 12/26/22 tabs diclofenac sodium 1 % topical gel 2 g topical QID PRN pain #100 grams 01/03/23 (Arthritis Pain (diclofenac)) ferrous sulfate 325 mg (65 mg 325 mg PO DAILY 30 days #30 tabs 01/03/23 iron) tablet (Feosol) pyridoxine (vitamin B6) 50 mg 50 mg PO DAILY 90 days #90 tabs 01/10/23 tablet hjejps-aqjtgblo-svbixsc 1 cap PO QID #120 caps 01/11/23 36,000-114,000-180,000 unit capsule,delay rel (Creon) albuterol sulfate 90 mcg/actuation 2 puff inhalation Q4-6H PRN 01/16/23 aerosol inhaler (Ventolin HFA) shortness of breath or wheezing #1 ea fluticasone propionate 115 2 puff inhalation Q12H #12 grams 01/16/23 mcg-salmeterol 21 mcg/actuation HFA inhaler (Advair HFA) linaclotide 290 mcg capsule 290 mcg PO QAM 30 days #30 caps 01/25/23 (Linzess) benzonatate 200 mg capsule 200 mg PO TID PRN cough #30 caps 02/23/23 cefuroxime axetil 500 mg tablet 500 mg PO BID 7 days #14 tabs 02/23/23 Allergies Allergy/AdvReac Type Severity Reaction Status Date / Time amoxicillin [AMOXICILLIN] Allergy Intermediate NAUSEA & Verified 02/14/23 14:10 VOMITING, stomach pain, vomiting, stomach upset topiramate [From TOPAMAX] Allergy Intermediate TREMORS, Verified 02/14/23 14:10 nausea and vomiting latex [LATEX] Allergy Mild RASH Verified 02/14/23 14:10 medroxyprogesterone Allergy Mild RASH Verified 02/14/23 14:10 [From PROVERA] lactose Allergy bloating , Verified 02/14/23 14:10 diarrhea Review of Systems Review of Systems: Yes all other systems are reviewed and are negative [facility] Past Medical History Medical History Annual physical exam Annual physical exam Anxiety Atypical chest pain Bilateral primary osteoarthritis of hip control counseling BMI 39.0-39.9,adult Carpal tunnel syndrome of left wrist Carpal tunnel syndrome of right wrist Carpal tunnel syndrome, bilateral Depression Depression Fibromyalgia Hematoma of left lower extremity Hematoma of lower leg History of gestational diabetes Hyperlipemia Hypertension Insomnia Intermittent chest pain Left ear pain Left leg swelling Lower back pain Migraine Migraines Morbid obesity Morbid obesity with BMI of 40.0-44.9, adult Myofascial pain Neck pain Neck pain Obesity (BMI 30-39.9) Pain in left lopez PCOS (polycystic ovarian syndrome) Personal history of gestational diabetes Polyuria Post depression Rheumatoid arthritis Right-sided chest pain Sacroiliac joint pain Second trimester Shortness of breath Smoker Supervision of other high risk , antepartum Supervision of other normal Tension headache Thoracic back pain Trigger finger of left thumb Trigger finger of right thumb Vulvar cyst Wrist pain Surgical History History of esophagogastroduodenoscopy (EGD) History of hip replacement, total History of removal of cyst History of tonsillectomy and adenoidectomy Family History Family History Father Medical history unknown Mother Diabetes Hypertension Maternal Aunt Breast cancer Ovarian cancer Mental health disorder Maternal Grandmother Diabetes Hypertension Social History Social History Household Members: Spouse and Children Housing: Condominium Alcohol intake: never Patient Tobacco Use Status: Former Tobacco user Smoked in Last 30 Days: No e-Cigarette/Vaping Use: Never Used Second Hand Smoke Exposure: No Use of substances other than those prescribed or required for medical reasons: Yes Substance Use Type: Marijuana Advance Directives: No Advance Directives Information Provided: Yes Patient : No service: No Current occupational status: disabled Sexual orientation: Straight/Heterosexual Gender identity: Female Cognitive needs: No Hearing needs: No Vision needs: Yes Physical Exam Vital Signs: Vital Signs: Last Vital Signs Temp 97.8 F 02/23/23 04:00 Pulse 55 02/23/23 04:00 Resp 16 02/23/23 04:00 BP 122/68 02/23/23 04:00 Pulse Ox 99 02/23/23 04:00 O2 Del Method Room Air 02/23/23 04:00 BMI result Body Mass Index 40.2 Appearance: Alert. Oriented X3. No acute distress. Eyes: PERRLA, No Nystagmus ENT: Pharynx slight erythema Oral Mucosa moist Neck: Normal inspection. Neck supple. CVS: Normal heart rate and rhythm. Pulses normal. Respiratory: No respiratory distress. Equal air entry bilateral, no wheezing/rales/rhonchi mid chest tenderness to palpation Abdomen: Soft and nontender. Bowel sounds are present, no mass palpable, no CVA tenderness Skin: Skin warm and dry. Normal skin color. Normal skin turgor. Extremities: No lower extremity edema. No calf tenderness Neuro: Oriented X 3. Medications Administered Discontinued Medications Generic Name Dose Route Start Last Admin Trade Name Freq PRN Reason Stop Dose Admin Cefuroxime Axetil 500 mg 02/23/23 04:14 02/23/23 05:15 Cefuroxime Axetil 500 Mg Tablet PO 02/23/23 04:15 500 mg ONCE ONE Administration Guaifenesin/Codeine Phosphate 10 ml 02/23/23 02:57 02/23/23 03:20 Guaifen/Codeine Sf 200/20/10ml 10 Ml Liquid PO 02/23/23 02:58 10 ml ONCE ONE Administration Medical Decision Making Lab Data 02/23/23 01:53 02/23/23 01:53 Labs: Lab Results 02/23/23 02/23/23 Range/Units 01:53 03:23 WBC 12.3 H (4.8-10.8) X10*3/uL RBC 3.58 L (4.20-5.50) X10*6/uL Hgb 9.1 L (12.0-16.0) g/dl Hct 28.5 L (37.0-47.0) % MCV 79.6 L (80.0-98.0) fL MCH 25.4 L (27.0-33.0) pg MCHC 31.9 (31.0-35.0) g/dl RDW 15.1 (11.0-16.0) % Plt Count 302 (160-400) X10*3/uL MPV 10.9 (9.4-12.3) fL Absolute Nucleated RBC 0.000 (0.0-0.012) X10*3/uL Nucleated RBC % (auto) 0.0 (0.0-0.2) /100WBC Sodium 140 (135-145) mmol/L Potassium 3.8 (3.3-5.1) mmol/L Chloride 109 H (96-108) mmol/L Carbon Dioxide 24 (22-29) mmol/L Anion Gap 11 L (12-20) BUN 10 (9-16) mg/dL Creatinine 0.69 (0.5-1.4) mg/dL Estim Creat Clear Calc 123.3 Estimated GFR > 60 Random Glucose 97 (60-115) mg/dL Calcium 9.3 D (8.4-10.2) mg/dL Total Bilirubin 0.2 (0.0-1.0) mg/dL AST 13 (5-31) U/L ALT 10 (0-31) U/L Alkaline Phosphatase 68 (39-117) U/L Troponin I High Sens < 2.7 (<3.5-17.0) ng/L Total Protein 6.7 (6.5-8.0) g/dL Albumin 3.8 (3.5-5.0) g/dL Influenza Type A (PCR) NEGATIVE (Negative) Influenza Type B (PCR) NEGATIVE (Negative) RSV RNA Qual (PCR) NEGATIVE (Negative) SARS-CoV-2 RNA (RT-PCR) NEGATIVE (Negative) S. pyogenes GrpA RAJESH Negative (Negative) Discharge Plan Discharge Clinical Impression: Acute pharyngitis Patient Disposition: Home, Self-Care Instructions: Pharyngitis (ED) Additional Instructions: Drink plenty of fluids Take antibiotic as prescribed Cough drops as prescribed For the Pcp if not better Prescriptions: New benzonatate 200 mg capsule 200 mg PO TID PRN (Reason: cough) Qty: 30 0RF cefuroxime axetil 500 mg tablet 500 mg PO BID 7 Days Qty: 14 0RF No Action FreeStyle Lite Strips Strip 4 strip miscellaneous QID 30 Days Qty: 100 1RF (DME) FRONT-WHEELED WALKER See Rx Instructions .Route .MEDSUPPLY Qty: 1 0RF Rx Instructions: As directed (DME) TUB SEAT with BACK See Rx Instructions .Route .MEDSUPPLY Qty: 1 0RF Rx Instructions: As directed (DME) BEDSIDE COMMODE See Rx Instructions .Route .MEDSUPPLY Qty: 1 0RF Rx Instructions: As directed labetalol 100 mg tablet 100 mg PO BID Qty: 180 1RF gabapentin 400 mg capsule 400 mg PO TID 30 Days Qty: 90 3RF Rx Instructions: 1 capsule Orally Three times a day Dexilant 60 mg capsule,biphase delayed releas 60 mg PO DAILY Qty: 30 6RF ibuprofen [IBU] 800 mg tablet 800 mg PO Q8H PRN (Reason: pain/headaches) 30 Days Qty: 90 0RF Rx Instructions: Take with food ondansetron 4 mg tablet,disintegrating 4 mg PO Q8H PRN (Reason: nausea and vomiting) Qty: 10 0RF amlodipine [Norvasc] 5 mg tablet 5 mg PO DAILY Qty: 30 0RF cyclobenzaprine 10 mg tablet 10 mg PO TID PRN (Reason: muscle spasm) Qty: 14 0RF tramadol 50 mg tablet 50 mg PO Q6H PRN (Reason: pain (scale score 1-3)) Qty: 8 0RF tamsulosin 0.4 mg capsule 0.4 mg PO BEDTIME 14 Days Qty: 14 0RF naproxen 500 mg tablet 500 mg PO BID PRN (Reason: pain) 7 Days Qty: 14 0RF sertraline 100 mg tablet 100 mg PO DAILY hydroxyzine HCl 25 mg tablet See Rx Instructions .ROUTE .COMPLEX 30 Days Qty: 180 3RF Rx Instructions: 1 to 2 tablets 3 times a day as needed for anxiety; lidocaine 5 % adhesive patch,medicated 1 patch topical DAILY Qty: 15 0RF Rx Instructions: leave on most painful area for up to 12 hrs ferrous sulfate [Feosol] 325 mg (65 mg iron) tablet 325 mg PO DAILY 30 Days Qty: 30 5RF diclofenac sodium [Arthritis Pain (diclofenac)] 1 % gel 2 g topical QID PRN (Reason: pain) Qty: 100 0RF (DME) lancets [FreeStyle Lancets] 28 gauge misc See Rx Instructions .ROUTE .MEDSUPPLY Qty: 100 1RF Rx Instructions: 4 times/day bupropion HCl 150 mg tablet extended release 24 hr 150 mg PO QAM spironolactone 50 mg tablet 50 mg PO BID Qty: 60 5RF metoclopramide HCl [Reglan] 5 mg tablet 5 mg PO QIDACHS Qty: 120 6RF Linzess 145 mcg capsule 145 mcg PO QAM Qty: 30 6RF Hold Instructions: Doctor's Order fluticasone propion-salmeterol [Advair HFA] 115-21 mcg/actuation HFA aerosol inhaler 2 puff inhalation Q12H Qty: 12 1RF albuterol sulfate [Ventolin HFA] 90 mcg/actuation HFA aerosol inhaler 2 puff inhalation Q4-6H PRN (Reason: shortness of breath or wheezing) Qty: 1 3RF pyridoxine (vitamin B6) 50 mg tablet 50 mg PO DAILY 90 Days Qty: 90 1RF Creon 36,000-114,000- 180,000 unit capsule,delayed release(DR/EC) 1 cap PO QID Qty: 120 6RF Rx Instructions: administer with meals and/or snacks Linzess 290 mcg capsule 290 mcg PO QAM 30 Days Qty: 30 6RF Interventions: ED Discharge Assessment Last Done: 02/23/23 06:08 Discharge Date/Time: 02/23/23 06:09
[2023-02-23] MEDS: guaiFEN/Codeine SF 200/20/10ML 10 ML LIQUID PO (03:20)
[2023-02-23 03:34] LABS: IDNOW Serial# 6674DD1D; Strep A Nucleic Acid Negative (Negative)
[2023-02-23 04:00] VITALS: BP 122/68; PULSE 55; RESP 16; TEMP 36.6; O2SAT 99
--- NOTE | 2023-02-23 05:20 | PC.NURSE ---
pt medicated according to mar. pt ambulatory at discharge. pt partner at bedside. pt calm and cooperative. pt provided with discharge packet. pt verbalized understanding of discharge plan
== END 2023-02-23 06:09 | disposition home or self-care (01) ==
PROVIDERS: Emergency Provider Internal Medicine; PCP Internal Medicine
DX: J02.9 Acute pharyngitis, unspecified (principal); Z20.822 Contact with and (suspected) exposure to COVID-19; Z20.828 Contact with and (suspected) exposure to other viral communicable diseases; F12.90 Cannabis use, unspecified, uncomplicated; Z87.891 Personal history of nicotine dependence
CPT/HCPCS: 0241U; 36415; 80053; 84484; 85027; 87651; 93005; 99283; 99284

== ENCOUNTER 2023-02-28 10:36 | Outpatient (AMB) | payer OTHER, SELFPAY ==
[2023-02-28 10:36] VITALS: BP 122/84; PULSE 68; O2SAT 98; BMI 40.1
--- NOTE | 2023-02-28 10:36 | A.OFFPC_ITS ---
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: No Accompanied by: Self / Same As Patient Allergies amoxicillin [AMOXICILLIN] Allergy (Intermediate, Verified 02/28/23 11:35) NAUSEA & VOMITING, stomach pain, vomiting, stomach upset topiramate [From TOPAMAX] Allergy (Intermediate, Verified 02/28/23 11:35) TREMORS, nausea and vomiting latex [LATEX] Allergy (Mild, Verified 02/28/23 11:35) RASH medroxyprogesterone [From PROVERA] Allergy (Mild, Verified 02/28/23 11:35) RASH lactose Allergy (Verified 02/28/23 11:35) bloating , diarrhea Medication List - Last Reconciled 02/28/23 by Jarrod Sherman MD albuterol sulfate 90 mcg/actuation (Ventolin HFA) 2 puffs inhalation Q4-6H PRN amlodipine (Norvasc) 5 mg PO DAILY [BEDSIDE COMMODE As directed] benzonatate 200 mg PO TID PRN bupropion HCl 150 mg PO QAM cefuroxime axetil 500 mg PO BID 7 days cyclobenzaprine 10 mg PO TID PRN Dexilant (dexlansoprazole) 60 mg PO DAILY NS diclofenac sodium 1% (Arthritis Pain (diclofenac)) 2 grams topical QID PRN ferrous sulfate (Feosol) 325 mg PO DAILY 30 days fluticasone propion-salmeterol 115-21 mcg/actuation (Advair HFA) 2 puffs inhalation Q12H FreeStyle Lite Strips (blood sugar diagnostic) 4 strips miscellaneous QID 30 days NS [FRONT-WHEELED WALKER As directed] gabapentin 400 mg PO TID 30 days hydroxyzine HCl 1 to 2 tablets 3 times a day as needed for anxiety; 30 days ibuprofen (IBU) 800 mg PO Q8H PRN 30 days labetalol 100 mg PO BID 90 days lancets (FreeStyle Lancets) 4 times/day lidocaine 5% 1 patch topical DAILY linaclotide (Linzess) 290 mcg PO QAM 30 days linaclotide (Linzess) 145 mcg PO QAM chfxoh-dbqmwigd-blctsbu 36,000-114,000- 180,000 unit (Creon) 1 cap PO QID metoclopramide HCl (Reglan) 5 mg PO QIDACHS naproxen 500 mg PO BID PRN 7 days nebulizers (Compact Compressor Nebulizer) As directed ondansetron 4 mg PO Q8H PRN pyridoxine (vitamin B6) 50 mg PO DAILY 90 days sertraline 100 mg PO DAILY spironolactone 50 mg PO BID tamsulosin 0.4 mg PO BEDTIME 14 days tramadol 50 mg PO Q6H PRN [TUB SEAT with BACK As directed] Tobacco use date assessed: 02/28/23 Dental Screening Dental Screen Date: 02/28/23 Did you have a dental visit in the last 12 months?: Yes Did you have a dental problem in the last 6 months where you did not have access to dental care?: No Was dental information given to patient?: Patient has dentist HPI Intermittent CP Follow up, HTN, HPI0 Details Patient comes in today for her HDF follow up visit - patient went to the ER last week for fever sore throat, earache and chest pain Workups done revealed acute pharyngitis and she was started on oral cefuroxime 500 mg BID x 7 days and on some cough suppressant States that her sore throat has improved/resolved since and she no longer had any recurrence chest pains or other symptoms She also needs a preop medical clearance for her scheduled laparoscopic cholelecystectomy with Dr. Stanley next week on 03/06/2023 Patient states that she feels okay she She denies any headaches or dizziness Denies any chest pains, no shortness of breath (+) occasional nausea but no vomiting no niko; reports (+) on and off RUQ abdominal pain/cramping that feel worse when she eats or drinks something No change in bowel habits noted Needs her Labetalol Rx refilled [facility] Medical History (Updated 03/03/23 @ 23:25 by Jarrod Sherman MD) Benign essential hypertension Shortness of breath Thoracic back pain Intermittent chest pain Left ear pain Neck pain Depression Annual physical exam Atypical chest pain Tension headache Myofascial pain Sacroiliac joint pain Bilateral primary osteoarthritis of hip Polyuria Right-sided chest pain Post depression BMI 39.0-39.9,adult Pain in left lopez Hematoma of left lower extremity Trigger finger of left thumb Trigger finger of right thumb Carpal tunnel syndrome of left wrist Carpal tunnel syndrome of right wrist Insomnia Morbid obesity with BMI of 40.0-44.9, adult Smoker Annual physical exam Carpal tunnel syndrome, bilateral Hematoma of lower leg Left leg swelling Personal history of gestational diabetes Wrist pain Neck pain Migraine Obesity (BMI 30-39.9) Second trimester Supervision of other high risk , antepartum Supervision of other normal History of gestational diabetes PCOS (polycystic ovarian syndrome) Morbid obesity control counseling Migraines Vulvar cyst Lower back pain Hypertension Anxiety Depression Hyperlipemia Fibromyalgia Rheumatoid arthritis Surgical History History of hip replacement, total History of esophagogastroduodenoscopy (EGD) History of removal of cyst History of tonsillectomy and adenoidectomy Family History Father Medical history unknown Mother Diabetes Hypertension Maternal Aunt Breast cancer Ovarian cancer Mental health disorder Maternal Grandmother Diabetes Hypertension Social History Household Members: Spouse and Children Housing: Condominium Alcohol intake: never Patient Tobacco Use Status: Former Tobacco user e-Cigarette/Vaping Use: Never Used Second Hand Smoke Exposure: No Substance Use Type: Marijuana service: No Current occupational status: disabled Sexual orientation: Straight/Heterosexual Gender identity: Female Cognitive needs: No Hearing needs: No Vision needs: Yes Female Reproductive History Menstrual Age of Menarche: 8 Questionnaire PHQ-9 Over the last 2 weeks, how often have you been bothered by any of the following problems? 1. Little interest or pleasure in doing things: not at all 2. Feeling down, depressed, or hopeless: several days 3. Trouble falling or staying asleep, or sleeping too much: several days 4. Feeling tired or having little energy: nearly every day 5. Poor appetite or overeating: nearly every day 6. Feeling bad about yourself - or that you are a failure or have let yourself or your family down: nearly every day 7. Trouble concentrating on things, such as reading the newspaper or watching television: nearly every day 8. Moving or speaking so slowly that other people could have noticed. Or the opposite - being so fidgety or restless that you have been moving around a lot more than usual: nearly every day 9. Thoughts that you would be better off or of hurting yourself in some way: not at all Total score: 17 Depression Screening Interpretation: Positive Depression Screening Follow-up: Existing condition and In treatment 51746 - PHQ-9 Billing: Yes Source: Developed by Drs. Cuco Richards, Itzel Ordaz, Eliud Ladd and colleagues, with an educational lino from [employer]. Thrive Questionnaire Date Thrive assessed: 02/28/23 I am a: Patient What is your living situation today?: I have a steady place to live Within the past 12 months, did the food you bought not last and you didn't have the money to get more?: Never true Within the past 12 months, did you worry whether your food would run out before you got money to buy more?: Never true Do you have trouble paying for medicines?: No Do you have trouble getting transportation to medical appointments?: No Do you have trouble paying your heating and electricity bill?: No Do you have trouble taking care of your child, family member or friend?: No Do you have trouble with day-to-day activities such as bathing, preparing meals, shopping, managing finances, etc.?: No Are you currently unemployed and looking for a job?: No Are you interested in more education?: No Please select the resources that you would like help with: None Currently or been in a relationship where the following occur: no concerns reported AUDIT C Alcohol Use Questionnaire (AUDIT-C) 1. How often do you have a drink containing alcohol?: Never 3. How often do you have six or more drinks on one occasion?: Never Total Score: 0 Score Reviewed/Action Taken: Yes STEPHANIE-7 AMB Questionnaire STEPHANIE-7 Date STEPHANIE - 7 assessed: 02/28/23 Feeling nervous, anxious, or on edge: 0 = Not at all Not being able to stop or control worryin = Not at all Worrying too much about different things: 0 = Not at all Trouble relaxin = Not at all Being so restless that it is hard to sit still: 0 = Not at all Becoming easily annoyed or irritable: 0 = Not at all Feeling afraid as if something awful might happen: 0 = Not at all Total STEPHANIE-7 score (0-4 normal; 5-9 mild; 10-14 moderate; 15-21 severe): 0 Source: Developed by Drs. Cuco Richards, Itzel Ordaz, Eliud Ladd and colleagues, with an educational lino from [employer]. Review of Systems Const All systems reviewed & are unremarkable except as noted in HPI and below Denies chills, Denies fatigue, Denies fever(s) and Denies headache(s) ENT Denies dysphagia, Denies dizziness, Denies otalgia, Denies headache(s), Denies neck pain, Denies odynophagia and Denies sore throat Card Denies chest pain, Denies palpitations and Denies dyspnea Resp Denies cough and Denies dyspnea GI Reports abdominal pain (on and off, over the RUQ), Denies constipation, Denies dysphagia, Denies heartburn, Denies diarrhea, Reports nausea (occasional), Denies odynophagia and Denies vomiting Denies difficulty voiding, Denies nocturia and Denies dysuria Musc Denies neck pain Skin/Breast Denies changing lesions and Denies unusual bruising Neuro Denies dizziness and Denies headache(s) Psych Denies anxiety and Denies depression Endo Denies fatigue and Denies palpitations Teddy/Lymph Denies lymphadenopathy Physical exam (Primary Care) Vital Signs: Last Vital Signs Pulse 68 02/28/23 10:36 BP 122/84 02/28/23 10:36 Pulse Ox 98 02/28/23 10:36 Oxygen Delivery Method Room Air 02/28/23 10:36 BMI result Body Mass Index 40.1 Tobacco/Smoking Status: Tobacco use Status Tobacco use date assessed 02/28/23 02/28/23 10:50 Patient Tobacco Use Status Former Tobacco user 02/28/23 10:50 Tobacco use type 02/14/23 14:05 e-Cigarette/Vaping Use Never Used 02/28/23 10:50 PHQ-9: PHQ-9 Score PHQ-9: Total score 17 02/28/23 11:37 Depression Screening Interpretation: Positive Depression Screening Follow-up: Existing condition and In treatment Thrive Assessment: Date of Thrive Assessment Date Thrive assessed 02/28/23 02/28/23 10:50 Currently or been in a relationship where the following occur: no concerns reported Const General: no acute distress and alert HENMT Ears: TM's normal bilaterally and EAC's normal Throat: Yes posterior oropharynx normal and Yes tonsils normal (no TP congestion) Neck Neck: Yes no lymphadenopathy and Yes supple Thyroid: Thyroid normal Resp Auscultation: clear to auscultation bilaterally, no rales and no wheezes Cardio Rate: regular rate Rhythm: regular rhythm Heart sounds: no murmurs GI Palpation (GI): Tenderness to palpation present (GI) (mild) in the RUQ, no guarding, not rigid and No Rebound tenderness present Auscultation: normal bowel sounds Back/Spine/Pelvis Thoracic/Lumbar Spine: lumbar spinal tenderness Skin Rashes: no rashes Extrem General: Yes no clubbing, cyanosis or edema Assessment and Plan Assessment & Plan (1) Preoperative examination: Code(s): Z01.818 - Encounter for other preprocedural examination Plan: Patient presents with acceptable risks for planned intermediate cardiac risk procedure Will send patient for some EFRAIN further evaluation and to complete her preop exam (2) Cholelithiasis with chronic cholecystitis: Code(s): K80.10 - Calculus of gallbladder with chronic cholecystitis without obstruction Qualifiers: Cholelithiasis location: gallbladder Biliary obstruction: without biliary obstruction Qualified Code(s): K80.10 - Calculus of gallbladder with chronic cholecystitis without obstruction Plan: Patient is scheduled for laparoscopic cholecystectomy under general anesthesia with Dr. Stanley on 03/06/2023 (3) Benign essential hypertension: Code(s): I10 - Essential (primary) hypertension Plan: Reinforced low-sodium diet - goal is systolic BP of 120 mm or less Continue Labetalol 100 mg BID and Amlodipine 5 mg QD; is also on Spironolactone 50 mg BID - this helps with his BP as well (4) Bilateral primary osteoarthritis of hip: Code(s): M16.0 - Bilateral primary osteoarthritis of hip Plan: Follow up with [facility] as scheduled (5) GERD (gastroesophageal reflux disease): Code(s): K21.9 - Gastro-esophageal reflux disease without esophagitis Qualifiers: Esophagitis presence: without esophagitis Qualified Code(s): K21.9 - Gastro-esophageal reflux disease without esophagitis Plan: Dietary restrictions reinforced Continue Dexlansoprazole 60 mg QD (6) Anemia: Code(s): D64.9 - Anemia, unspecified Qualifiers: Anemia type: unspecified type Qualified Code(s): D64.9 - Anemia, unspecified Plan: Continue Ferrous Sulfate 325 mg QD Will recheck CBC and iron studies in 3 months for follow up (7) Migraine: Code(s): G43.909 - Migraine, unspecified, not intractable, without status migrainosus Qualifiers: Migraine type: unspecified Status migrainosus presence: without status migrainosus Intractability: not intractable Qualified Code(s): G43.909 - Migraine, unspecified, not intractable, without status migrainosus Plan: Continue Acetaminophen 325 mg every 4 to 6 hours as needed Reinforced avoidance of migraine triggers Will need to consider prophylactic Tx again if her headaches persist or get worse (8) Fibromyalgia: Code(s): M79.7 - Fibromyalgia Plan: Encouraged again regular exercise and physical activity to help manage her fibromyalgia symptoms Continue Gabapentin 400 mg TID (9) Insomnia: Code(s): G47.00 - Insomnia, unspecified Qualifiers: Insomnia type: unspecified Qualified Code(s): G47.00 - Insomnia, unspecified Plan: Sleep hygiene reinforced Continue OTC Unisom 25 mg Q HS PRN (10) Anxiety: Code(s): F41.9 - Anxiety disorder, unspecified Plan: Is on Bupropion and Sertraline; continue Hydroxyzine 25 mg 1 to 2 tablets TID PRN (11) Depression: Code(s): F32.A - Depression, unspecified Qualifiers: Depression Type: major depressive disorder Major depression recurrence: recurrent Active/Remission status: currently active Major depression episode severity: unspecified Qualified Code(s): F33.9 - Major depressive disorder, recurrent, unspecified Plan: Continue Sertraline 100 mg QD and Bupropion XL 150 mg Q AM Follow up with psychiatry as scheduled (12) Smoker: Comment: Stop smoking cigarettes 2019 Code(s): F17.200 - Nicotine dependence, unspecified, uncomplicated Plan: Counseled again on smoking cessation (13) Morbid obesity with BMI of 40.0-44.9, adult: Code(s): E66.01 - Morbid (severe) obesity due to excess calories; Z68.41 - Body mass index [BMI] 40.0-44.9, adult Plan: Reinforced diet/exercise as tolerated/lose weight Plan Will follow up the results of patient's labs as soon as they are available for review; final clearance will be provided once her lab results are available To return in 3 months for her annual physical examination Orders: Orders Comprehensive Met. Panel 02/28/23 D64.9 - Anemia, unspecified, K80.20 - Calculus of gallbladder without cholecystitis without obstruction Complete Blood Count Auto Diff 02/28/23 D64.9 - Anemia, unspecified, I10 - Essential (primary) hypertension, K80.20 - Calculus of gallbladder without cholecystitis without obstruction Medications: New nebulizers (Compact Compressor Nebulizer) As directed 1 ea 0RF J44.9 - Chronic obstructive pulmonary disease, unspecified Changed From labetalol 100 mg PO BID 180 tabs 1RF I10 - Essential (primary) hypertension To labetalol 100 mg PO BID 90 days 180 tabs 1RF I10 - Essential (primary) h ypertension Coding Level of Care Code Est Pt Level 4 (27338) Diagnoses Preoperative examination Z01.818 Calculus of gallbladder with chronic cholecystitis without obstruction K80.10 Cholelithiasis location: gallbladder Biliary obstruction: without biliary obstruction Benign essential hypertension I10 Bilateral primary osteoarthritis of hip M16.0 Gastroesophageal reflux disease without esophagitis K21.9 Esophagitis presence: without esophagitis Anemia, unspecified type D64.9 Anemia type: unspecified type Migraine without status migrainosus, not intractable, unspecified migraine type G43.909 Migraine type: unspecified Status migrainosus presence: without status migrainosus Intractability: not intractable Fibromyalgia M79.7 Insomnia, unspecified type G47.00 Insomnia type: unspecified Anxiety F41.9 Episode of recurrent major depressive disorder, unspecified depression episode severity F33.9 Depression Type: major depressive disorder Major depression recurrence: recurrent Active/Remission status: currently active Major depression episode severity: unspecified Smoker F17.200 Morbid obesity with BMI of 40.0-44.9, adult E66.01; Z68.41
== END 2023-02-28 11:47 | disposition home or self-care (01) ==
PROVIDERS: PCP Internal Medicine; Visit Provider Internal Medicine
DX: I10 Essential (primary) hypertension (principal); K21.9 Gastro-esophageal reflux disease without esophagitis; G43.909 Migraine, unspecified, not intractable, without status migrainosus; F41.9 Anxiety disorder, unspecified; F33.9 Major depressive disorder, recurrent, unspecified; F17.200 Nicotine dependence, unspecified, uncomplicated; E66.01 Morbid (severe) obesity due to excess calories; Z68.41 Body mass index [BMI] 40.0-44.9, adult; Z01.818 Encounter for other preprocedural examination; K80.10 Calculus of gallbladder with chronic cholecystitis without obstruction; M16.0 Bilateral primary osteoarthritis of hip
CPT/HCPCS: 99214

== ENCOUNTER 2023-03-04 08:37 | Outpatient (REF) | payer OTHER, SELFPAY ==
[2023-03-04 08:51] LABS: MANUAL DIFF FLAG NO
[2023-03-04 09:19] LABS: Basophils Percent Auto 0.5 % (0-2); Eosinophils Absolute Auto 0.1 X10*3/uL (0.0-0.4); Eosinophils Percent Auto 1.6 % (0-4); Hematocrit 30.1 % (37.0-47.0); Hemoglobin 9.4 g/dl (12.0-16.0); Imm Gran Abs Auto 0.04 X10*3/uL (0.00-0.03); Imm Gran Pct Auto 0.5 % (0.0-0.4); Lymphocytes Absolute Auto 2.1 X10*3/uL (1.2-4.9); Lymphocytes Percent Auto 25.7 % (20-40); Mean Corpuscular HGB Conc 31.2 g/dl (31.0-35.0); Mean Corpuscular Hemoglobin 25.2 pg (27.0-33.0); Mean Corpuscular Volume 80.7 fL (80.0-98.0); Monocytes Absolute Auto 0.7 X10*3/uL (0.1-1.2); Monocytes Percent Auto 8.8 % (2-11); Neutrophils Absolute Auto 5.1 x10*3/uL (2.0-8.3); Neutrophils Percent Auto 62.9 % (45-73); Platelet Count 299 X10*3/uL (160-400); Red Blood Count 3.73 X10*6/uL (4.20-5.50); White Blood Count 8.1 X10*3/uL (4.8-10.8)
[2023-03-04 09:49] LABS: Alanine Aminotransferase 9 U/L (0-31); Albumin Level 3.9 g/dL (3.5-5.0); Alkaline Phosphatase 71 U/L (39-117); Anion Gap 10 (12-20); Aspartate Amino Transferase 13 U/L (5-31); Bilirubin Total 0.4 mg/dL (0.0-1.0); Blood Urea Nitrogen 11 mg/dL (9-16); Carbon Dioxide 26 mmol/L (22-29); Chloride 108 mmol/L (96-108); Estimated Glomerular Filt Rate > 60; Glucose Random 96 mg/dL (60-115); Potassium 3.9 mmol/L (3.3-5.1); Sodium 140 mmol/L (135-145); Total Protein 6.9 g/dL (6.5-8.0)
== END 2023-03-04 08:38 | disposition home or self-care (01) ==
LOC: HO.LAB 08:37
PROVIDERS: PCP Internal Medicine; Visit Provider Internal Medicine
DX: K80.20 Calculus of gallbladder without cholecystitis without obstruction (principal); D64.9 Anemia, unspecified; I10 Essential (primary) hypertension
CPT/HCPCS: 36415; 80053; 85025

== ENCOUNTER 2023-03-06 06:02 | Day surgery (SDC) | payer OTHER, SELFPAY ==
[2023-03-04 07:57] VITALS: BMI 40.1
--- NOTE | 2023-03-05 10:06 | P.CONAN_ITS ---
Documented by User: Shirley Caballero NP 03/05/23 10:16 HPI - Anesthesia Eval Consult details Narrative: 32yo F for Cholecystectomy Laparoscopic possible open Medically optimized per PCP 01/2023 cardiac office visit for atypical CP with reassurance non-cardiac. s/p cysto, etc 09/2022 with GA-LMA 4 PMFSH Active Problems Active Problems: All Active Problems (Updated 03/05/23 @ 06:59 by Grace Riggins, RN) Preoperative examination (Acute) Cholelithiasis with chronic cholecystitis (Acute) COPD (chronic obstructive pulmonary disease) (Acute) Loud snoring (Acute) Daytime somnolence (Acute) Environmental and seasonal allergies (Acute) Biliary dyskinesia (Acute) Left breast lump (Acute) Gallstones (Acute) Calculus of kidney (Acute) RUQ abdominal pain (Acute) Anxiety (Acute) Anemia (Acute) Bipolar 2 disorder (Acute) ADHD (Acute) Chronic idiopathic constipation (Acute) Delayed gastric emptying (Acute) GERD (gastroesophageal reflux disease) (Acute) Gestational diabetes (Acute) Hypertension (Acute) Depression (Acute) Gastritis (Acute) Benign essential hypertension (Acute) Atypical chest pain (Acute) Depression (Acute) Insomnia (Acute) Morbid obesity with BMI of 40.0-44.9, adult (Acute) Carpal tunnel syndrome, bilateral (Acute) PCOS (polycystic ovarian syndrome) (Acute) Fibromyalgia (Acute) Migraines (Acute) Hyperlipemia (Acute) Past Medical History Medical History (Updated 03/05/23 @ 06:59 by Grace Riggins, LUCIA) Benign essential hypertension Shortness of breath Thoracic back pain Intermittent chest pain Left ear pain Neck pain Depression Atypical chest pain Tension headache Myofascial pain Sacroiliac joint pain Bilateral primary osteoarthritis of hip Polyuria Right-sided chest pain Post depression BMI 39.0-39.9,adult Pain in left lopez Hematoma of left lower extremity Trigger finger of left thumb Trigger finger of right thumb Insomnia Morbid obesity with BMI of 40.0-44.9, adult Smoker Annual physical exam Carpal tunnel syndrome, bilateral Left leg swelling Personal history of gestational diabetes Wrist pain Obesity (BMI 30-39.9) Second trimester Supervision of other high risk , antepartum Supervision of other normal PCOS (polycystic ovarian syndrome) control counseling Migraines Vulvar cyst Lower back pain Anxiety Hyperlipemia Fibromyalgia Rheumatoid arthritis Family History Family History Father Medical history unknown Mother Diabetes Hypertension Maternal Aunt Breast cancer Ovarian cancer Mental health disorder Maternal Grandmother Diabetes Hypertension Surgical History Surgical History (Updated 03/06/23 @ 07:26 by Haider Stanley MD) S/P laparoscopic cholecystectomy (03/06/23) H/O tubal ligation History of hip replacement, total History of esophagogastroduodenoscopy (EGD) History of removal of cyst History of tonsillectomy and adenoidectomy Social History Social History Household Members: Spouse and Children Housing: Condominium Alcohol intake: never Patient Tobacco Use Status: Former Tobacco user Quit Date: 2.5 yrs e-Cigarette/Vaping Use: Never Used Second Hand Smoke Exposure: No Use of substances other than those prescribed or required for medical reasons: Yes Substance Use Type: Marijuana Are you DNR?: No Advance Directives: No Advance Directives Information Provided: Yes service: No Current occupational status: disabled Sexual orientation: Straight/Heterosexual Gender identity: Female Cognitive needs: No Hearing needs: No Vision needs: Yes Meds Allergies Allergy/AdvReac Type Severity Reaction Status Date / Time amoxicillin [AMOXICILLIN] Allergy Intermediate NAUSEA & Verified 02/28/23 11:35 VOMITING, stomach pain, vomiting, stomach upset topiramate [From TOPAMAX] Allergy Intermediate TREMORS, Verified 02/28/23 11:35 nausea and vomiting latex [LATEX] Allergy Mild RASH Verified 02/28/23 11:35 medroxyprogesterone Allergy Mild RASH Verified 02/28/23 11:35 [From PROVERA] lactose Allergy bloating , Verified 02/28/23 11:35 diarrhea Home Medications Medication Instructions Recorded Confirmed Last Taken Type sertraline 100 mg tablet 100 mg PO DAILY 08/22/20 03/06/23 Unknown History bupropion HCl 150 mg 24 hr tablet, 150 mg PO QAM 05/03/21 03/06/23 Unknown History extended release Exam Exam Date and Time: March 05, 2023 1006 Height,Weight and Vital Signs: Height 5 ft 1 in Weight 96.162 kg Pertinent Lab Results Pertinent Lab Results: Laboratory Tests 03/04/23 08:50 WBC 8.1 Hgb 9.4 L Hct 30.1 L Plt Count 299 Sodium 140 Potassium 3.9 Chloride 108 Carbon Dioxide 26 BUN 11 Creatinine 0.67 Narrative Narrative: EKG 02/2023 Vent. Rate : 074 BPM Atrial Rate : 074 BPM P-R Int : 124 ms QRS Dur : 088 ms QT Int : 372 ms P-R-T Axes : 015 031 -03 degrees QTc Int : 412 ms Normal sinus rhythm Normal ECG When compared with ECG of 18-FEB-2023 01:32, No significant change was found Per 01/2023 cardiology office visit: 12 lead EKG shows normal sinus rhythm, no significant ST-T changes and otherwise unremarkable. Several recent EKGs reviewed. Echocardiogram with LVEF of 63%. No wall motion abnormalities. Normal diastolic function. Normal strain. Otherwise unremarkable. Myocardial perfusion imaging study shows likely normal perfusion. Chest CT scan shows no coronary calcification and no other significant findings. High sensitivity troponins have been checked numerous times and essentially all of them are normal-almost 8 of them. Overall, atypical symptoms, unremarkable imaging and negative biomarkers in the past. Noncardiac etiology for symptoms. Reassurance only. Assessment and Plan Assessment Anesthesia Assessment: Chart Reviewed Documented by User: Michelle Syed MD 03/06/23 07:30 [facility] Past Medical History Medical History (Updated 03/05/23 @ 06:59 by Grace Riggins RN) Benign essential hypertension Shortness of breath Thoracic back pain Intermittent chest pain Left ear pain Neck pain Depression Atypical chest pain Tension headache Myofascial pain Sacroiliac joint pain Bilateral primary osteoarthritis of hip Polyuria Right-sided chest pain Post depression BMI 39.0-39.9,adult Pain in left lopez Hematoma of left lower extremity Trigger finger of left thumb Trigger finger of right thumb Insomnia Morbid obesity with BMI of 40.0-44.9, adult Smoker Annual physical exam Carpal tunnel syndrome, bilateral Left leg swelling Personal history of gestational diabetes Wrist pain Obesity (BMI 30-39.9) Second trimester Supervision of other high risk , antepartum Supervision of other normal PCOS (polycystic ovarian syndrome) control counseling Migraines Vulvar cyst Lower back pain Anxiety Hyperlipemia Fibromyalgia Rheumatoid arthritis Family History Family History Father Medical history unknown Mother Diabetes Hypertension Maternal Aunt Breast cancer Ovarian cancer Mental health disorder Maternal Grandmother Diabetes Hypertension Family history of problems with anesthesia: No Surgical History Surgical History (Updated 03/06/23 @ 07:26 by Haider Stanley MD) S/P laparoscopic cholecystectomy (03/06/23) H/O tubal ligation History of hip replacement, total History of esophagogastroduodenoscopy (EGD) History of removal of cyst History of tonsillectomy and adenoidectomy History of Problems with Anesthesia: No Social History Social History Household Members: Spouse and Children Housing: Condominium Alcohol intake: never Patient Tobacco Use Status: Former Tobacco user Quit Date: 2.5 yrs e-Cigarette/Vaping Use: Never Used Second Hand Smoke Exposure: No Use of substances other than those prescribed or required for medical reasons: Yes Substance Use Type: Marijuana Are you DNR?: No Advance Directives: No Advance Directives Information Provided: Yes service: No Current occupational status: disabled Sexual orientation: Straight/Heterosexual Gender identity: Female Cognitive needs: No Hearing needs: No Vision needs: Yes Meds Allergies Allergy/AdvReac Type Severity Reaction Status Date / Time amoxicillin [AMOXICILLIN] Allergy Intermediate NAUSEA & Verified 02/28/23 11:35 VOMITING, stomach pain, vomiting, stomach upset topiramate [From TOPAMAX] Allergy Intermediate TREMORS, Verified 02/28/23 11:35 nausea and vomiting latex [LATEX] Allergy Mild RASH Verified 02/28/23 11:35 medroxyprogesterone Allergy Mild RASH Verified 02/28/23 11:35 [From PROVERA] lactose Allergy bloating , Verified 02/28/23 11:35 diarrhea Home Medications Medication Instructions Recorded Confirmed Last Taken Type sertraline 100 mg tablet 100 mg PO DAILY 08/22/20 03/06/23 Unknown History bupropion HCl 150 mg 24 hr tablet, 150 mg PO QAM 05/03/21 03/06/23 Unknown History extended release Exam Airway Mallampati Class: II TM Dist: >3cm Neck ROM: Full Lungs: clear after Duoneb Assessment and Plan Assessment Anesthesia Assessment: Anesthesia Plan Discussed Final Anesthetic Review Family History of Problems with Anesthesia: No History of Problems with Anesthesia: No NPO: Yes ASA Class: III Final Preanesthetic Review: No Changes in Pt Med Stat, Meds/Allgs Chart Reviewed, Consent Obtained/Reviewed and Anes Risks/Benef Reviewed Patient Risk: Intermediate Procedure Risk: Intermediate Anesthetic Plan Anesthetic Plan: GA Disposition: Standard PACU
[2023-03-06] VITALS (10 sets, daily range): BP systolic 124–158; BP diastolic 67–91; PULSE 57–67; RESP 14–20; TEMP 36.4–36.8; O2SAT 97–100; BMI 40.2
[2023-03-06] MEDS: Lactated Ringers 1,000 ML 100 ML IVCONT (06:48)
[2023-03-06] MEDS: Albuterol Sulfate (0.083%) 2.5 MG/3 ML VIAL.NEB INHALE (06:57)
--- NOTE | 2023-03-06 07:32 | MHC.SHP ---
Pre-Procedural Eval Section A Date of Service: 03/06/23 The patient is an INPATIENT: No Changes since office visit: Yes Patient answered all questions; No Cold of Flu in the past 2 weeks, No New Medical Problems and No Changes in Medication The History & Physical has been completed within 30 days and I have reviewed it.: Yes Section B Chief Complaint: Calculus of gallbladder with chronic cholecystitis Allergies: Allergies Allergy/AdvReac Type Severity Reaction Status Date / Time amoxicillin [AMOXICILLIN] Allergy Intermediate NAUSEA & Verified 02/28/23 11:35 VOMITING, stomach pain, vomiting, stomach upset topiramate [From TOPAMAX] Allergy Intermediate TREMORS, Verified 02/28/23 11:35 nausea and vomiting latex [LATEX] Allergy Mild RASH Verified 02/28/23 11:35 medroxyprogesterone Allergy Mild RASH Verified 02/28/23 11:35 [From PROVERA] lactose Allergy bloating , Verified 02/28/23 11:35 diarrhea Plan Diagnosis/Plan: Unchanged I have reviewed the history and physical and performed a pertinent physical examination on my patient. No changes have occurred unless specified. Time Spent With Patient Time: Total time managing care of this patient today ____ minutes.
--- NOTE | 2023-03-06 08:41 | P.OP_ITS ---
Operative Note Operative Note Date of Service: 03/06/23 Narrative: Preoperative diagnosis: Chronic cholecystitis, cholelithiasis Postoperative diagnosis: Same Procedure: Laparoscopic cholecystectomy Surgeon: Haider Stanley MD Special Officer: MARIAMA Patel Anesthesia: General endotracheal Indications for procedure: 32-year-old female patient presenting with complaints of abdominal pain and right upper quadrant associated with nausea found to have gallstones within the gallbladder. HIDA scan was found to be abnormal with reduced ejection fraction suggestive of chronic cholecystitis. Operative findings: Chronic adhesions to the undersurface of the gallbladder as well as a large gallstone within the neck of the gallbladder. Specimen: gallbladder Estimated blood loss: 2 mL Complications: Non Procedure details: Patient was brought to the OR and placed in a supine position. After administering general anesthesia the patient's abdomen was prepped with ChloraPrep and draped in a sterile fashion. Local anesthesia consisting of 0.5% Sensorcaine without epinephrine was infiltrated in a periumbilical region. A 5 mm incision was made above the umbilicus in a transverse fashion. The Veress needle was then inserted while elevating abdominal cavity with towel clips. After positive drop test the abdomen was insufflated to a pressure of 15 mm of mercury. The Veress needle was then removed and a 5 mm trocar inserted. The camera was inserted in the abdomen explored. A 12 mm trocar was then placed in the epigastrium. Two 5 mm trocars placed in the right upper quadrant by the neurosurgical physician assistant. The patient was placed in reverse Trendelenburg positioning and rotated to the left. The gallbladder was grasped with the fundus and retracted cephalad by the neurosurgical physician assistant. The infundibulum was then grasped and retracted away from the liver bed, also by the neurosurgical physician assistant. The Dolphin dissected was then used by the surgeon to dissect the peritoneum off the infundibulum to reveal the junction with the cystic duct. Cystic artery was noted slightly medial and posterior to the cystic duct. After obtaining a critical view the cystic duct was doubly clipped and divided. The cystic artery was then doubly clipped and divided. The gallbladder was then dissected off the liver bed using electrocautery with an L hook. Hemostasis was assured all times using the electrocautery. When the gallbladder is completely dissected off the liver bed was placed in an Endo-Catch bag and brought out through the epigastric incision. The gallbladder was sent to pathology for further examination. The abdomen was then re-examined. The liver bed was irrigated and suctioned dry. No bleeding or bile leak could be identified. A small piece of Surgicel was placed to the liver edge to assure hemostasis. CO2 was then evacuated and all trocars removed. Fascia was closed at the epigastric incision using a [id number] 0 Polysorb suture. Skin was closed in all incisions using a subcuticular 4 0 Polysorb suture by both the surgeon and neurosurgical physician assistant. Sterile dressings consisting of Steri-Strips, 2 x 2 gauze, and Tegaderm were then applied. The patient tolerated the procedure well. Sponge instrument and needle counts reported as correct. The patient was transferred to PACU in stable condition.
[2023-03-06] MEDS: fentaNYL citrate/PF 100 MCG/2 ML VIAL 50 MCG IVPUSH (09:10)
[2023-03-06] MEDS: oxyCODONE HCl Immed Release 5 MG TABLET PO (09:44)
[2023-03-06] MEDS: ondansetron HCL 4 MG/2 ML VIAL IVPUSH (09:50)
== END 2023-03-06 10:54 | disposition home or self-care (01) ==
PROVIDERS: PCP Internal Medicine; Visit Provider Surgery
PROC: 0FT44ZZ Resection of Gallbladder, Percutaneous Endoscopic Approach (ICD-10-PCS; CPT 47562; principal; 2023-03-06 07:30)
DX: K80.12 Calculus of gallbladder with acute and chronic cholecystitis without obstruction (principal); K82.8 Other specified diseases of gallbladder; M79.7 Fibromyalgia; I10 Essential (primary) hypertension; E78.5 Hyperlipidemia, unspecified; E28.2 Polycystic ovarian syndrome; R07.89 Other chest pain; R06.02 Shortness of breath; M06.9 Rheumatoid arthritis, unspecified; E66.01 Morbid (severe) obesity due to excess calories; Z68.41 Body mass index [BMI] 40.0-44.9, adult; Z79.1 Long term (current) use of non-steroidal anti-inflammatories (NSAID); Z79.51 Long term (current) use of inhaled steroids; Z79.899 Other long term (current) drug therapy; Z88.0 Allergy status to penicillin; Z88.8 Allergy status to other drugs, medicaments and biological substances; Z91.040 Latex allergy status; Z87.891 Personal history of nicotine dependence; F12.90 Cannabis use, unspecified, uncomplicated
CPT/HCPCS: 47562; 88304; 94640; J0131; J0690; J1100; J2250; J2405; J3010

== ENCOUNTER → 2023-03-06 06:02 | Outpatient (BNV) | payer OTHER, SELFPAY | PROVIDERS: PCP Internal Medicine; Visit Provider Surgery | DX: K80.10 Calculus of gallbladder with chronic cholecystitis without obstruction (principal) | CPT/HCPCS: 47562 ==

== ENCOUNTER 2023-03-14 11:32 | Outpatient (AMB) | payer OTHER, SELFPAY ==
--- NOTE | 2023-03-14 11:34 | MHC.OFFVIS ---
Intake Vital Signs 03/14/23 11:38 Height 5 ft 1 in Weight 211 lb 10.3 oz BMI 40.0 BP 122/82 Blood Pressure Location Lt brachial Position Sitting Intake Visit Reasons: S/P lap racquel Intake Note: Patient is seen in office for post op assessment post laparoscopic cholecystectomy. 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: No Accompanied by: Family/Other Allergies amoxicillin [AMOXICILLIN] Allergy (Intermediate, Verified 03/14/23 11:38) NAUSEA & VOMITING, stomach pain, vomiting, stomach upset topiramate [From TOPAMAX] Allergy (Intermediate, Verified 03/14/23 11:38) TREMORS, nausea and vomiting latex [LATEX] Allergy (Mild, Verified 03/14/23 11:38) RASH medroxyprogesterone [From PROVERA] Allergy (Mild, Verified 03/14/23 11:38) RASH lactose Allergy (Verified 03/14/23 11:38) bloating , diarrhea Medication List - Last Reconciled 03/14/23 by Haider Stanley MD albuterol sulfate 90 mcg/actuation (Ventolin HFA) 2 puffs inhalation Q4-6H PRN amlodipine (Norvasc) 5 mg PO DAILY [BEDSIDE COMMODE As directed] benzonatate 200 mg PO TID PRN bupropion HCl 150 mg PO QAM cefuroxime axetil 500 mg PO BID 7 days cyclobenzaprine 10 mg PO TID PRN Dexilant (dexlansoprazole) 60 mg PO DAILY NS diclofenac sodium 1% (Arthritis Pain (diclofenac)) 2 grams topical QID PRN ferrous sulfate (Feosol) 325 mg PO DAILY 30 days fluticasone propion-salmeterol 115-21 mcg/actuation (Advair HFA) 2 puffs inhalation Q12H FreeStyle Lite Strips (blood sugar diagnostic) 4 strips miscellaneous QID 30 days NS [FRONT-WHEELED WALKER As directed] gabapentin 400 mg PO TID 30 days hydroxyzine HCl 1 to 2 tablets 3 times a day as needed for anxiety; 30 days ibuprofen (IBU) 800 mg PO Q8H PRN 30 days labetalol 100 mg PO BID 90 days lancets (FreeStyle Lancets) 4 times/day lidocaine 5% 1 patch topical DAILY linaclotide (Linzess) 290 mcg PO QAM 30 days [id number]-[id number] 36,000-114,000- 180,000 unit (Creon) 1 cap PO QID metoclopramide HCl (Reglan) 5 mg PO QIDACHS naproxen 500 mg PO BID PRN 7 days nebulizers (Compact Compressor Nebulizer) As directed ondansetron 4 mg PO Q8H PRN oxycodone 5 mg PO Q6H PRN pyridoxine (vitamin B6) 50 mg PO DAILY 90 days sertraline 100 mg PO DAILY spironolactone 50 mg PO BID tamsulosin 0.4 mg PO BEDTIME 14 days tramadol 50 mg PO Q6H PRN [TUB SEAT with BACK As directed] HPI HPI Comments History of Present Illness Details 32-year-old female patient returning 1 week following a laparoscopic cholecystectomy performed on 03/06/2023. She tolerated the procedure well and denies any nausea, vomiting, fever or chills. She continues with her usual medications and denies any constipation. [facility] Medical History (Updated 03/05/23 @ 06:59 by Grace Riggins RN) Benign essential hypertension Shortness of breath Thoracic back pain Intermittent chest pain Left ear pain Neck pain Depression Atypical chest pain Tension headache Myofascial pain Sacroiliac joint pain Bilateral primary osteoarthritis of hip Polyuria Right-sided chest pain Post depression BMI 39.0-39.9,adult Pain in left lopez Hematoma of left lower extremity Trigger finger of left thumb Trigger finger of right thumb Insomnia Morbid obesity with BMI of 40.0-44.9, adult Smoker Annual physical exam Carpal tunnel syndrome, bilateral Left leg swelling Personal history of gestational diabetes Wrist pain Obesity (BMI 30-39.9) Second trimester Supervision of other high risk , antepartum Supervision of other normal PCOS (polycystic ovarian syndrome) control counseling Migraines Vulvar cyst Lower back pain Anxiety Hyperlipemia Fibromyalgia Rheumatoid arthritis Surgical History (Updated 03/12/23 @ 16:13 by EMILY Newman) S/P laparoscopic cholecystectomy (03/06/23) H/O tubal ligation History of hip replacement, total History of esophagogastroduodenoscopy (EGD) History of removal of cyst History of tonsillectomy and adenoidectomy Family History Father Medical history unknown Mother Diabetes Hypertension Maternal Aunt Breast cancer Ovarian cancer Mental health disorder Maternal Grandmother Diabetes Hypertension Social History Household Members: Spouse and Children Housing: Condominium Alcohol intake: never Patient Tobacco Use Status: Former Tobacco user Quit Date: 2.5 yrs e-Cigarette/Vaping Use: Never Used Second Hand Smoke Exposure: No Substance Use Type: Marijuana service: No Current occupational status: disabled Sexual orientation: Straight/Heterosexual Gender identity: Female Cognitive needs: No Hearing needs: No Vision needs: Yes Female Reproductive History Menstrual Age of Menarche: 8 Physical Exam Const General: no acute distress Nutritional Appearance: well nourished Orientation/consciousness: patient oriented x3 Limitations: no limitations Resp Effort & Inspection: normal respiratory effort GI Other: Trocar incisions are clean, dry, and intact without redness or discharge. Abdomen is otherwise soft and nondistended. Skin Other: Warm, dry, normal color, no rashes Neuro General: patient oriented x3 Extrem Other: No edema Assessment & Plan Assessment & Plan (1) Cholelithiasis with chronic cholecystitis: Code(s): K80.10 - Calculus of gallbladder with chronic cholecystitis without obstruction Qualifiers: Cholelithiasis location: gallbladder Biliary obstruction: without biliary obstruction Qualified Code(s): K80.10 - Calculus of gallbladder with chronic cholecystitis without obstruction Plan 32-year-old female patient presenting with complaints of right upper quadrant abdominal pain radiating to the back associated with nausea and vomiting. Patient was found to have fatty food intolerance which increases the abdominal pain. Workup with ultrasound confirmed gallstones within the gallbladder and HIDA scan which revealed no emptying of the gallbladder with stimulation. Findings are consistent with chronic cholecystitis due to cholelithiasis. She returns today 1 week following laparoscopic cholecystectomy performed on 03/06/2023. Findings were consistent with chronic cholecystitis and cholelithiasis. She tolerated the procedure well and her wounds are healing nicely. She should continue to avoid lifting greater than 10 lb for the next week after which he may resume normal activity. She should also continue to remain on a low-fat diet for approximately 1 month. She should follow up as needed. Coding Level of Care Code Global (14716) Diagnoses Calculus of gallbladder with chronic cholecystitis without obstruction K80.10 Cholelithiasis location: gallbladder Biliary obstruction: without biliary obstruction
[2023-03-14 11:38] VITALS: BP 122/82; BMI 40.0
== END 2023-03-14 11:41 | disposition home or self-care (01) ==
PROVIDERS: PCP Internal Medicine; Visit Provider Surgery
DX: K80.10 Calculus of gallbladder with chronic cholecystitis without obstruction (principal)
CPT/HCPCS: 99024

== ENCOUNTER → 2023-03-14 11:32 | Outpatient (BNVA) | payer OTHER, SELFPAY | PROVIDERS: PCP Internal Medicine; Visit Provider Surgery ==

== ENCOUNTER 2023-04-17 11:30 | Outpatient (AMB) | payer OTHER, SELFPAY ==
[2023-04-17 11:37] VITALS: BP 104/62; PULSE 68; O2SAT 100; BMI 38.9
--- NOTE | 2023-04-17 11:37 | MHC.OFFVIS ---
Intake Vital Signs 04/17/23 11:37 Height 5 ft 1 in Weight 206 lb BMI 38.9 BP 104/62 Blood Pressure Location Lt brachial Position Sitting Pulse 68 Pulse Source Pulse Oximeter Pulse Oximetry (%) 100 Oxygen Delivery Method Room Air Intake Visit Reasons: Shortness of breath Requirements Analyst Required: No Unified Communications Engineer: Unified Communications Engineer offered & declined Accompanied by: Self / Same As Patient Allergies amoxicillin [AMOXICILLIN] Allergy (Intermediate, Verified 04/17/23 13:34) NAUSEA & VOMITING, stomach pain, vomiting, stomach upset topiramate [From TOPAMAX] Allergy (Intermediate, Verified 04/17/23 13:34) TREMORS, nausea and vomiting latex [LATEX] Allergy (Mild, Verified 04/17/23 13:34) RASH medroxyprogesterone [From PROVERA] Allergy (Mild, Verified 04/17/23 13:34) RASH lactose Allergy (Verified 04/17/23 13:34) bloating , diarrhea Medication List - Last Reconciled 04/17/23 by Esthela Lipscomb LPN albuterol sulfate 90 mcg/actuation (Ventolin HFA) 2 puffs inhalation Q4-6H PRN amlodipine (Norvasc) 5 mg PO DAILY [BEDSIDE COMMODE As directed] benzonatate 200 mg PO TID PRN bupropion HCl 150 mg PO QAM cyclobenzaprine 10 mg PO TID PRN Dexilant (dexlansoprazole) 60 mg PO DAILY NS diclofenac sodium 1% (Arthritis Pain (diclofenac)) 2 grams topical QID PRN ferrous sulfate (Feosol) 325 mg PO DAILY 30 days fluticasone propion-salmeterol 115-21 mcg/actuation (Advair HFA) 2 puffs inhalation Q12H FreeStyle Lite Strips (blood sugar diagnostic) 4 strips miscellaneous QID 30 days NS [FRONT-WHEELED WALKER As directed] gabapentin 400 mg PO TID 30 days hydroxyzine HCl 1 to 2 tablets 3 times a day as needed for anxiety; 30 days ibuprofen (IBU) 800 mg PO Q8H PRN 30 days labetalol 100 mg PO BID 90 days lancets (FreeStyle Lancets) 4 times/day lidocaine 5% 1 patch topical DAILY linaclotide (Linzess) 290 mcg PO QAM 30 days [id number]-dekhhpl 36,000-114,000- 180,000 unit (Creon) 1 cap PO QID metoclopramide HCl (Reglan) 5 mg PO QIDACHS naproxen 500 mg PO BID PRN 7 days nebulizers (Compact Compressor Nebulizer) As directed ondansetron 4 mg PO Q8H PRN oxycodone 5 mg PO Q6H PRN pyridoxine (vitamin B6) 50 mg PO DAILY 90 days sertraline 100 mg PO DAILY spironolactone 50 mg PO BID tamsulosin 0.4 mg PO BEDTIME 14 days tramadol 50 mg PO Q6H PRN [TUB SEAT with BACK As directed] HPI Shortness of breath HPI Details Gabriella is a very pleasant 32-year-old female, never tobacco smoker, current everyday marijuana smoker. Today she presents to review results of RAST, sleep study and response to inhaler. She reports using Advair HFA with moderate improvements in symptoms but continues to use albuterol on a daily basis due to chest tightness and intermittent wheezing. FORMERLY [facility] Medical History (Updated 04/17/23 @ 13:52 by Jarrod Sherman MD) Benign essential hypertension Shortness of breath Thoracic back pain Intermittent chest pain Left ear pain Neck pain Depression Atypical chest pain Tension headache Myofascial pain Sacroiliac joint pain Bilateral primary osteoarthritis of hip Polyuria Right-sided chest pain Post depression BMI 39.0-39.9,adult Pain in left lopez Hematoma of left lower extremity Trigger finger of left thumb Trigger finger of right thumb Insomnia Morbid obesity with BMI of 40.0-44.9, adult Smoker Annual physical exam Carpal tunnel syndrome, bilateral Left leg swelling Personal history of gestational diabetes Wrist pain Obesity (BMI 30-39.9) Second trimester Supervision of other high risk , antepartum Supervision of other normal PCOS (polycystic ovarian syndrome) control counseling Migraines Vulvar cyst Lower back pain Anxiety Hyperlipemia Fibromyalgia Rheumatoid arthritis Surgical History S/P laparoscopic cholecystectomy (03/06/23) H/O tubal ligation History of hip replacement, total History of esophagogastroduodenoscopy (EGD) History of removal of cyst History of tonsillectomy and adenoidectomy Family History Father Medical history unknown Mother Diabetes Hypertension Maternal Aunt Breast cancer Ovarian cancer Mental health disorder Maternal Grandmother Diabetes Hypertension Social History (Updated 04/17/23 @ 11:45 by Esthela Lipscomb LPN) Household Members: Spouse and Children Housing: Condominium Alcohol intake: never Patient Tobacco Use Status: Former Tobacco user Quit Date: 2.5 yrs e-Cigarette/Vaping Use: Never Used Second Hand Smoke Exposure: No Substance Use Type: Marijuana service: No Current occupational status: disabled Sexual orientation: Straight/Heterosexual Gender identity: Female Cognitive needs: No Hearing needs: No Vision needs: Yes Female Reproductive History Menstrual Age of Menarche: 8 Review of Systems Const Denies chills, Denies excessive sweating, Denies fever(s), Denies headache(s) and Denies night sweats Eyes Denies dry eyes, Denies irritation and Denies itchy eyes ENT Reports Normal hearing present, Denies headache(s), Denies nasal congestion, Denies nasal discharge, Denies post nasal drip and Denies sore throat Card Denies chest pain, Denies chest pain at rest, Denies chest pain with activity, Denies claudication, Denies leg edema and Denies orthopnea Resp Denies chest congestion, Denies cough, Denies excessive phlegm production, Denies pain on inspiration, Denies pain with cough and Denies stridor Musc Denies myalgias Neuro Reports Normal hearing present and Denies headache(s) Endo Denies excessive sweating Teddy/Lymph Denies lymphadenopathy Aller/Immun Denies itchy eyes and Denies seasonal rhinorrhea Physical Exam Vital Signs: Last Vital Signs Pulse 68 04/17/23 11:37 BP 104/62 04/17/23 11:37 Pulse Ox 100 04/17/23 11:37 Oxygen Delivery Method Room Air 04/17/23 11:37 BMI result Body Mass Index 38.9 Const General: cooperative, healthy appearing, comfortable, no acute distress, well developed and alert Nutritional Appearance: obese Orientation/consciousness: patient oriented x3 Limitations: no limitations HEENT Head: Yes normal to inspection, Yes normocephalic and Yes atraumatic Ears: hearing grossly normal bilaterally and external ears normal Eyes General: appearance normal, both eyes and all related structures Eyelids: Yes eyelids normal Sclerae: sclerae normal EOM: EOMs intact bilaterally Neck Neck: Yes normal visual inspection and Yes no lymphadenopathy Lymphatic: no lymphadenopathy noted Chest Chest palpation & inspection: normal inspection of the chest Resp Effort & Inspection: normal respiratory effort, able to speak in complete sentences, no audible wheezes, no cough, no stridor, not tachypneic, no tripod positioning and no use of accessory muscles Auscultation: clear to auscultation bilaterally Cardio Jugular venous distension: no JVD Rate: regular rate Rhythm: regular rhythm Skin Other: warm, dry General skin exam: no rashes or lesions noted Neuro General: patient oriented x3 Cranial nerves: Yes Normal hearing present Cognition (Neuro): normal cognition Gait exam (Neuro): Normal gait present Extrem General: Yes normal to inspection, Yes capillary refill normal, Yes no clubbing, cyanosis or edema and Yes no pedal edema Psych Appearance: grossly normal and well kempt Speech and movement: Normal speech and movement present and Clear speech present Affect: normal affect Attitude: cooperative Thought process: Normal thought process present Thought content: Normal thought content present Insight: Good insight present (Psych) Judgement: Good judgement present (Psych) Results Reviewed Results Reviewed: Assessment & Plan Assessment & Plan (1) COPD (chronic obstructive pulmonary disease): Code(s): J44.9 - Chronic obstructive pulmonary disease, unspecified (2) Obesity (BMI 30-39.9): Code(s): E66.9 - Obesity, unspecified Plan Reviewed RAST and in lab sleep study, both unremarkable. She reports moderate improvement with Advair but continuously using albuterol. Will increase Advair to 230/21 and reviewed when to use albuterol. All questions answered and patient is in agreement of plan. Will follow up in 3 months to review response to inhaler or sooner if needed. Medications: New fluticasone propion-salmeterol 230-21 mcg/actuation (Advair HFA) 2 puffs inhalation Q12H 1 ea 3RF Refilled albuterol sulfate 90 mcg/actuation (Ventolin HFA) 2 puffs inhalation Q4-6H PRN 1 ea 3RF shortness of breath or wheezing R06.02 - Shortness of breath Discontinued fluticasone propion-salmeterol 115-21 mcg/actuation (Advair HFA) Discontinued Reason: No Longer Medically Relevant 2 puffs inhalation Q12H 12 ea 1RF Coding Level of Care Code Est Pt Level 3 (13541) Diagnoses COPD (chronic obstructive pulmonary disease) J44.9 Obesity (BMI 30-39.9) E66.9
== END 2023-04-17 12:07 | disposition home or self-care (01) ==
LOC: HO.HPSW 11:30
PROVIDERS: PCP Internal Medicine; Visit Provider Nurse Practitioner Family
DX: J44.9 Chronic obstructive pulmonary disease, unspecified (principal); E66.9 Obesity, unspecified
CPT/HCPCS: 99213

== ENCOUNTER → 2023-04-17 11:30 | Outpatient (BNVA) | payer OTHER, SELFPAY | PROVIDERS: PCP Internal Medicine; Visit Provider Nurse Practitioner Family | DX: J44.9 Chronic obstructive pulmonary disease, unspecified (principal); E66.9 Obesity, unspecified; Z68.38 Body mass index [BMI] 38.0-38.9, adult | CPT/HCPCS: 99212 ==

== ENCOUNTER 2023-04-17 13:32 | Outpatient (AMB) | payer OTHER, SELFPAY ==
[2023-04-17 13:34] VITALS: BP 106/78; PULSE 78; O2SAT 98; BMI 39.3
--- NOTE | 2023-04-17 13:34 | A.OFFPC_ITS ---
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 Operator Required: No Accompanied by: Self / Same As Patient Allergies amoxicillin [AMOXICILLIN] Allergy (Intermediate, Verified 04/20/23 18:11) NAUSEA & VOMITING, stomach pain, vomiting, stomach upset topiramate [From TOPAMAX] Allergy (Intermediate, Verified 04/20/23 18:11) TREMORS, nausea and vomiting latex [LATEX] Allergy (Mild, Verified 04/20/23 18:11) RASH medroxyprogesterone [From PROVERA] Allergy (Mild, Verified 04/20/23 18:11) RASH lactose Allergy (Verified 04/20/23 18:11) bloating , diarrhea Medication List - Last Reconciled 04/17/23 by Jarrod Sherman MD albuterol sulfate 90 mcg/actuation (Ventolin HFA) 2 puffs inhalation Q4-6H PRN amlodipine (Norvasc) 5 mg PO DAILY [BEDSIDE COMMODE As directed] benzonatate 200 mg PO TID PRN bupropion HCl 150 mg PO QAM cyclobenzaprine 10 mg PO TID PRN Dexilant (dexlansoprazole) 60 mg PO DAILY NS diclofenac sodium 1% (Arthritis Pain (diclofenac)) 2 grams topical QID PRN ferrous sulfate (Feosol) 325 mg PO DAILY 30 days fluticasone propion-salmeterol 230-21 mcg/actuation (Advair HFA) 2 puffs inhalation Q12H FreeStyle Lite Strips (blood sugar diagnostic) 4 strips miscellaneous QID 30 days NS [FRONT-WHEELED WALKER As directed] gabapentin 400 mg PO TID 30 days hydroxyzine HCl 1 to 2 tablets 3 times a day as needed for anxiety; 30 days ibuprofen (IBU) 800 mg PO Q8H PRN 30 days labetalol 100 mg PO BID 90 days lancets (FreeStyle Lancets) 4 times/day lidocaine 5% 1 patch topical DAILY linaclotide (Linzess) 290 mcg PO QAM 30 days dbajae-bnagggcy-doyjzrd 36,000-114,000- 180,000 unit (Creon) 1 cap PO QID metoclopramide HCl (Reglan) 5 mg PO QIDACHS naproxen 500 mg PO BID PRN 7 days nebulizers (Compact Compressor Nebulizer) As directed ondansetron 4 mg PO Q8H PRN oxycodone 5 mg PO Q6H PRN pyridoxine (vitamin B6) 50 mg PO DAILY 90 days sertraline 100 mg PO DAILY spironolactone 50 mg PO BID tamsulosin 0.4 mg PO BEDTIME 14 days tramadol 50 mg PO Q6H PRN [TUB SEAT with BACK As directed] Tobacco use date assessed: 04/17/23 Dental Screening Dental Screen Date: 04/17/23 Did you have a dental visit in the last 12 months?: Yes Did you have a dental problem in the last 6 months where you did not have access to dental care?: No Was dental information given to patient?: Patient has dentist HPI back and neck pain HPI Details Patient comes in today complaining of increased pain over the left side of her neck for the past week or so She denies any recent injury or trauma to her neck She denies any headaches or dizziness Denies any chest pains, no shortness of breath No nausea/ vomiting, no abdominal pain No change in bowel habits noted PFSH Medical History Benign essential hypertension Shortness of breath Thoracic back pain Intermittent chest pain Left ear pain Neck pain Depression Atypical chest pain Tension headache Myofascial pain Sacroiliac joint pain Bilateral primary osteoarthritis of hip Polyuria Right-sided chest pain Post depression BMI 39.0-39.9,adult Pain in left lopez Hematoma of left lower extremity Trigger finger of left thumb Trigger finger of right thumb Insomnia Morbid obesity with BMI of 40.0-44.9, adult Smoker Annual physical exam Carpal tunnel syndrome, bilateral Left leg swelling Personal history of gestational diabetes Wrist pain Obesity (BMI 30-39.9) Second trimester Supervision of other high risk , antepartum Supervision of other normal PCOS (polycystic ovarian syndrome) control counseling Migraines Vulvar cyst Lower back pain Anxiety Hyperlipemia Fibromyalgia Rheumatoid arthritis Surgical History S/P laparoscopic cholecystectomy (03/06/23) H/O tubal ligation History of hip replacement, total History of esophagogastroduodenoscopy (EGD) History of removal of cyst History of tonsillectomy and adenoidectomy Family History Father Medical history unknown Mother Diabetes Hypertension Maternal Aunt Breast cancer Ovarian cancer Mental health disorder Maternal Grandmother Diabetes Hypertension Social History Household Members: Spouse and Children Housing: Condominium Alcohol intake: never Patient Tobacco Use Status: Former Tobacco user Quit Date: 2.5 yrs e-Cigarette/Vaping Use: Never Used Second Hand Smoke Exposure: No Substance Use Type: Marijuana service: No Current occupational status: disabled Sexual orientation: Straight/Heterosexual Gender identity: Female Cognitive needs: No Hearing needs: No Vision needs: Yes Female Reproductive History Menstrual Age of Menarche: 8 Questionnaire PHQ-9 Over the last 2 weeks, how often have you been bothered by any of the following problems? 1. Little interest or pleasure in doing things: not at all 2. Feeling down, depressed, or hopeless: several days 3. Trouble falling or staying asleep, or sleeping too much: several days 4. Feeling tired or having little energy: nearly every day 5. Poor appetite or overeating: nearly every day 6. Feeling bad about yourself - or that you are a failure or have let yourself or your family down: nearly every day 7. Trouble concentrating on things, such as reading the newspaper or watching television: nearly every day 8. Moving or speaking so slowly that other people could have noticed. Or the opposite - being so fidgety or restless that you have been moving around a lot more than usual: nearly every day 9. Thoughts that you would be better off or of hurting yourself in some way: not at all Total score: 17 Depression Screening Interpretation: Positive Depression Screening Follow-up: Existing condition and In treatment Depression Screening Done: Yes 94030 - PHQ-9 Billing: Yes Source: Developed by Drs. Cuco Richards, Itzel Ordaz, Eliud Ladd and colleagues, with an educational lino from [employer]. Thrive Questionnaire Date Thrive assessed: 04/17/23 I am a: Patient What is your living situation today?: I have a steady place to live Within the past 12 months, did the food you bought not last and you didn't have the money to get more?: Never true Within the past 12 months, did you worry whether your food would run out before you got money to buy more?: Never true Do you have trouble paying for medicines?: No Do you have trouble getting transportation to medical appointments?: No Do you have trouble paying your heating and electricity bill?: No Do you have trouble taking care of your child, family member or friend?: No Do you have trouble with day-to-day activities such as bathing, preparing meals, shopping, managing finances, etc.?: No Are you currently unemployed and looking for a job?: No Are you interested in more education?: No Please select the resources that you would like help with: None Currently or been in a relationship where the following occur: no concerns reported AUDIT C Alcohol Use Questionnaire (AUDIT-C) 1. How often do you have a drink containing alcohol?: Never 3. How often do you have six or more drinks on one occasion?: Never Total Score: 0 Score Reviewed/Action Taken: Yes STEPHANIE-7 AMB Questionnaire STEPHANIE-7 Date STEPHANIE - 7 assessed: 04/17/23 Feeling nervous, anxious, or on edge: 0 = Not at all Not being able to stop or control worryin = Not at all Worrying too much about different things: 0 = Not at all Trouble relaxin = Not at all Being so restless that it is hard to sit still: 0 = Not at all Becoming easily annoyed or irritable: 0 = Not at all Feeling afraid as if something awful might happen: 0 = Not at all Total STEPHANIE-7 score (0-4 normal; 5-9 mild; 10-14 moderate; 15-21 severe): 0 Source: Developed by Drs. Cuco Richards, Itzel Ordaz, Eliud Ladd and colleagues, with an educational lino from [employer]. Review of Systems Const Denies chills, Denies fatigue, Denies fever(s) and Denies headache(s) ENT Denies dysphagia, Denies dizziness, Denies headache(s), Reports neck pain (over the left side of the neck), Denies odynophagia and Denies sore throat Card Denies chest pain, Denies palpitations and Denies dyspnea Resp Denies cough and Denies dyspnea GI Denies abdominal pain, Denies constipation, Denies dysphagia, Denies heartburn, Denies diarrhea, Denies nausea, Denies odynophagia and Denies vomiting Musc Reports neck pain (over the left side of the neck) Skin/Breast Denies rash Neuro Denies dizziness and Denies headache(s) Psych Denies anxiety and Denies depression Endo Denies fatigue and Denies palpitations Teddy/Lymph Denies easy bruising Physical exam (Primary Care) Vital Signs: Last Vital Signs Pulse 78 04/17/23 13:34 BP 106/78 04/17/23 13:34 Pulse Ox 98 04/17/23 13:34 Oxygen Delivery Method Room Air 04/17/23 13:34 BMI result Body Mass Index 39.3 Tobacco/Smoking Status: Tobacco use Status Tobacco use date assessed 04/17/23 04/17/23 13:40 Patient Tobacco Use Status Former Tobacco user 04/17/23 13:40 Tobacco use type 02/14/23 14:05 e-Cigarette/Vaping Use Never Used 04/17/23 13:40 PHQ-9: PHQ-9 Score PHQ-9: Total score 17 04/17/23 14:08 Depression Screening Interpretation: Positive Depression Screening Follow-up: Existing condition and In treatment Thrive Assessment: Date of Thrive Assessment Date Thrive assessed 04/17/23 04/17/23 13:40 Currently or been in a relationship where the following occur: no concerns reported Const General: no acute distress and alert HENMT Ears: TM's normal bilaterally and EAC's normal Throat: Yes posterior oropharynx normal and Yes tonsils normal (no TP congestion) Neck Other: (+) tenderness on palpation over the cervical portion of the left trapezius muscle extending from behind the left ear down into the left suprascapular area; there is also some muscle spasms noted on exam as the affected muscle feels very hard, stiff and tender on palpation Neck: Yes no lymphadenopathy Thyroid: Thyroid normal Resp Auscultation: clear to auscultation bilaterally, no rales and no wheezes Cardio Rate: regular rate Rhythm: regular rhythm Heart sounds: no murmurs GI Palpation (GI): Soft to palpation and nontender Auscultation: normal bowel sounds Back/Spine/Pelvis Thoracic/Lumbar Spine: lumbar spinal tenderness Skin Rashes: no rashes Extrem General: Yes no clubbing, cyanosis or edema Assessment and Plan Assessment & Plan (1) Strain of cervical portion of left trapezius muscle: Code(s): S16.1XXA - Strain of muscle, fascia and tendon at neck level, initial encounter Plan: Advised that her current left-sided neck pain is mostly due to musculoskeletal strain involving the left cervical paraspinal muscles as well as the left trapezius muscle, which wraps down into the left scapula and this also explains why she is starting to experience recurrent pain and spasms over her left scapular area recently Will refer her to physical therapy for further evaluation and management Advised that she can try applying some warm compress over the left side of her neck, over her left trapezius muscle and over her left scapular area in the meantime for symptomatic relief until physical therapy is able to start seeing her Will also start her back for now on Ibuprofen 800 mg Q 8 hours with food PRN and Cyclobenzaprine 10 mg TID PRN Plan To return as scheduled in May 2023 for her annual physical examination Orders: Orders PT Evaluation and Treatment 04/17/23 M43.6 - Torticollis, S16.1XXA - Strain of muscle, fascia and tendon at neck level, initial encounter Medications: Refilled cyclobenzaprine 10 mg PO TID PRN 30 tabs 0RF muscle spasm/neck pain ibuprofen (IBU) Take with food 800 mg PO Q8H 30 days PRN 90 tabs 0RF pain/headaches Coding Level of Care Code Est Pt Level 3 (00396) Diagnoses Strain of cervical portion of left trapezius muscle S16.1XXA
== END 2023-04-17 13:54 | disposition home or self-care (01) ==
PROVIDERS: PCP Internal Medicine; Visit Provider Internal Medicine
DX: S16.1XXA Strain of muscle, fascia and tendon at neck level, initial encounter (principal)
CPT/HCPCS: 99213

== ENCOUNTER 2023-05-23 13:14 | Emergency (ER) | payer OTHER, SELFPAY ==
--- NOTE | ~2023-05-23 | XR_ITS ---
EXAMINATION: XR CHEST 2 VIEW CLINICAL INFORMATION: Shortness of breath, cough COMPARISON: 02/18/2023 TECHNIQUE: PA and lateral views of the chest obtained. FINDINGS: The lungs are clear. There are no pleural effusions. The cardiomediastinal silhouette is normal. XR/XR chest 2V IMPRESSION: No acute cardiopulmonary disease.
[2023-05-23 13:44] VITALS: BP 171/99; PULSE 88; RESP 20; TEMP 37.4; O2SAT 98; BMI 51.0
--- NOTE | 2023-05-23 13:44 | ED_ITS ---
HPI - General Adult General Chief complaint: Nausea/Vomiting/Diarrhea Stated complaint: Diff Breathing Asthma Time Seen by Provider: 05/23/23 18:04 Source: patient Mode of arrival: ambulatory Limitations: no limitations History of Present Illness HPI narrative: 32-year-old female history of obesity, GERD, ADHD, hypertension, depression, PCOS, fibromyalgia, migraines, hyperlipidemia presents with fatigue, malaise, myalgias, cough, nausea, vomiting, intermittent headaches all of which started suddenly 3 days ago. At times short of breath with wheezing, despite albuterol. She reports she found a few prednisone at home which she took which helped a little bit. Ran out of solution for nebulizer. patient reports her son is sick with similar symptoms and so is her boyfriend. Patient denies weakness, chest pain, blood in stool, blood in vomit, vision changes, dizziness. Related Data Home Medications Medication Instructions Recorded Confirmed sertraline 100 mg tablet 100 mg PO DAILY 08/22/20 04/17/23 bupropion HCl 150 mg 24 hr tablet, 150 mg PO QAM 05/03/21 04/17/23 extended release Previous Rx's Medication Instructions Recorded lancets 28 gauge (FreeStyle #100 ea 06/27/20 Lancets) FreeStyle Lite Strips (blood sugar 4 strip miscellaneous QID 30 days 07/20/20 diagnostic) #100 strips spironolactone 50 mg tablet 50 mg PO BID #60 tabs 01/05/22 hydroxyzine HCl 25 mg tablet See Rx Instructions .Route 04/04/22 .COMPLEX anxiety 30 days #180 tabs ondansetron 4 mg disintegrating 4 mg PO Q8H PRN nausea and 05/04/22 tablet vomiting #10 tabs lidocaine 5 % topical patch 1 patch topical DAILY #15 ea 05/08/22 amlodipine 5 mg tablet (Norvasc) 5 mg PO DAILY #30 tabs 05/13/22 BEDSIDE COMMODE #1 ea 05/14/22 FRONT-WHEELED WALKER #1 ea 05/14/22 TUB SEAT with BACK #1 ea 05/14/22 metoclopramide HCl 5 mg tablet 5 mg PO QIDACHS #120 tabs 09/19/22 (Reglan) naproxen 500 mg tablet 500 mg PO BID PRN pain 7 days #14 10/01/22 tabs tamsulosin 0.4 mg capsule 0.4 mg PO BEDTIME 14 days #14 caps 10/01/22 tramadol 50 mg tablet 50 mg PO Q6H PRN pain (scale score 10/01/22 1-3) #8 tabs gabapentin 400 mg capsule 400 mg PO TID 30 days #90 caps 10/17/22 Dexilant 60 mg capsule, delayed 60 mg PO DAILY #30 caps 12/20/22 release (dexlansoprazole) diclofenac sodium 1 % topical gel 2 g topical QID PRN pain #100 grams 01/03/23 (Arthritis Pain (diclofenac)) ferrous sulfate 325 mg (65 mg 325 mg PO DAILY 30 days #30 tabs 01/03/23 iron) tablet (Feosol) pyridoxine (vitamin B6) 50 mg 50 mg PO DAILY 90 days #90 tabs 01/10/23 tablet chqdes-[id number]-eiovtwn 1 cap PO QID #120 caps 01/11/23 36,000-114,000-180,000 unit capsule,delay rel (Creon) linaclotide 290 mcg capsule 290 mcg PO QAM 30 days #30 caps 01/25/23 (Linzess) benzonatate 200 mg capsule 200 mg PO TID PRN cough #30 caps 02/23/23 labetalol 100 mg tablet 100 mg PO BID 90 days #180 tabs 02/28/23 nebulizers (Compact Compressor #1 ea 02/28/23 Nebulizer) oxycodone 5 mg tablet 5 mg PO Q6H PRN pain (scale score 03/06/23 7-10) #15 tabs albuterol sulfate 90 mcg/actuation 2 puff inhalation Q4-6H PRN 04/17/23 aerosol inhaler (Ventolin HFA) shortness of breath or wheezing #1 ea cyclobenzaprine 10 mg tablet 10 mg PO TID PRN muscle spasm/neck 04/17/23 pain #30 tabs fluticasone propionate 230 2 puff inhalation Q12H #1 ea 04/17/23 mcg-salmeterol 21 mcg/actuation HFA inhaler (Advair HFA) ibuprofen 800 mg tablet (IBU) 800 mg PO Q8H PRN pain/headaches 05/18/23 30 days #90 tabs albuterol sulfate 2.5 mg/3 mL 2.5 mg (3 mL) inhalation Q6H #75 mL 05/23/23 (0.083 %) solution for nebulization albuterol sulfate 90 mcg/actuation 2 inh inhalation Q4-6H PRN 05/23/23 breath activated powder inhaler shortness of breath or wheezing #1 ea benzonatate 100 mg capsule 100 mg PO BID PRN cough #20 caps 05/23/23 ondansetron 4 mg disintegrating 4 mg PO Q6H PRN nausea and 05/23/23 tablet vomiting #14 tabs prednisone 50 mg tablet 50 mg PO DAILY 5 days #5 tabs 05/23/23 Allergies Allergy/AdvReac Type Severity Reaction Status Date / Time amoxicillin [AMOXICILLIN] Allergy Intermediate NAUSEA & Verified 04/20/23 18:11 VOMITING, stomach pain, vomiting, stomach upset topiramate [From TOPAMAX] Allergy Intermediate TREMORS, Verified 04/20/23 18:11 nausea and vomiting latex [LATEX] Allergy Mild RASH Verified 04/20/23 18:11 medroxyprogesterone Allergy Mild RASH Verified 04/20/23 18:11 [From PROVERA] lactose Allergy bloating , Verified 04/20/23 18:11 diarrhea Review of Systems 2 Review of Systems: Constitutional : No Weight loss, No Fever, No Chills, + Fatigue, + Malaise ENT/Mouth : No sore throat, No Rhinorrhea Eyes: No Eye Pain, No Swelling, No Redness Cardiovascular : No Chest Pain, No SOB, No Dyspnea on Exertion, No Orthopnea, No Edema, No Palpitations Respiratory : + Cough, No Sputum, + Wheezing Gastrointestinal : + Nausea, + Vomiting, No Diarrhea, No Constipation, No abdominal Pain, No Hematochezia, No Melena Genitourinary : No Dysuria, No Urinary Frequency, No Hematuria, Musculoskeletal : No joint pain, No Myalgias, No Joint Swelling Skin : No Skin Lesions, No rash Neuro : No Weakness, No Numbness, No Dizziness, + Headache Psych : No Anxiety/Panic, No Depression All other systems reviewed and are negative Yes all other systems are reviewed and are negative [facility] Past Medical History Attestation statement: The following information was validated with the patient. Source: old records reviewed and nursing notes reviewed Medical History Benign essential hypertension Shortness of breath Thoracic back pain Intermittent chest pain Left ear pain Neck pain Depression Atypical chest pain Tension headache Myofascial pain Sacroiliac joint pain Bilateral primary osteoarthritis of hip Polyuria Right-sided chest pain Post depression BMI 39.0-39.9,adult Pain in left lopez Hematoma of left lower extremity Trigger finger of left thumb Trigger finger of right thumb Insomnia Morbid obesity with BMI of 40.0-44.9, adult Smoker Annual physical exam Carpal tunnel syndrome, bilateral Left leg swelling Personal history of gestational diabetes Wrist pain Obesity (BMI 30-39.9) Second trimester Supervision of other high risk , antepartum Supervision of other normal PCOS (polycystic ovarian syndrome) control counseling Migraines Vulvar cyst Lower back pain Anxiety Hyperlipemia Fibromyalgia Rheumatoid arthritis Surgical History S/P laparoscopic cholecystectomy (03/06/23) H/O tubal ligation History of hip replacement, total History of esophagogastroduodenoscopy (EGD) History of removal of cyst History of tonsillectomy and adenoidectomy Family History Family History Father Medical history unknown Mother Diabetes Hypertension Maternal Aunt Breast cancer Ovarian cancer Mental health disorder Maternal Grandmother Diabetes Hypertension Social History Social History Household Members: Spouse and Children Housing: Condominium Alcohol intake: never Patient Tobacco Use Status: Former Tobacco user Quit Date: 2.5 yrs e-Cigarette/Vaping Use: Never Used Second Hand Smoke Exposure: No Substance Use Type: Marijuana Advance Directives: No service: No Current occupational status: disabled Sexual orientation: Straight/Heterosexual Gender identity: Female Cognitive needs: No Hearing needs: No Vision needs: Yes Physical Exam ED Vital Signs: Vital Signs - 24 hr 05/23/23 13:44 Temperature 99.3 F Pulse Rate 88 Respiratory Rate 20 Blood Pressure 171/99 H Pulse Oximetry 98 Oxygen Delivery Method Room Air BMI result Body Mass Index 51.0 Vital signs stable Appearance: Alert.? Oriented X3.? No acute distress.? Head: Normocephalic, atraumatic, no step-offs or deformities Eyes: Pupils equal, round and reactive to light.? ENT: Pharynx normal.? Neck: Normal inspection.? Neck supple.? CVS: Normal heart rate and rhythm.? Pulses normal.? Respiratory: No respiratory distress.? Breath sounds faint expiratory wheezing bilaterally..? Abdomen: Soft and nontender.? Skin: Skin warm and dry.? Normal skin color.? Normal skin turgor.? Extremities: No lower extremity edema.? No calf ttp. 5/5 strength to bilateral upper and lower extremities Neuro: Oriented X 3.? No motor deficit.? No sensory deficit. CN 2-12 intact Course Course Course Narrative: This is an RME: Additional HPI, ROS, PE not included below will be deferred to primary provider. This is a 89-oiwe-x[age]-female, with a hx of hyperlipidmia, anxiety, migraines, deperssion, asthma, presenting to the emergency department with complaints of headache, cough, congestion, vomiting, body aches x 3 days. Had temperature 104 yesterday. Lungs clear to auscultation bilaterally, frequent tight dry cough heard on examination. Vital signs within normal limits. Plan: Labs, EKG, chest x-ray, viral swabs Reevaluation(s) Reevaluation #1: Patient's CBC appears to be around patient's baseline no acute finding, microcytic anemia is patient's baseline. Chemistry no acute findings requiring intervention. Troponin negative, EKG nonischemic, body hCG normal. History and physical exam not concerning for pulmonary embolism. Patient is noted to be positive for influenza. This is likely causative agent for patient's symptoms. Will discharge her home with albuterol, prednisone which she has tolerated in the past, benzonate, and zofran. Patient will be discharged from the waiting room she is hemodynamically stable she continues to saturate 98% on room air. Tamiflu not indicated. Educated patient on diagnosis and treatment plan, answered all question, patient verbalizes understanding. At this time patient will be discharged home, advised to return with new or worsening symptoms. Educated on worrisome signs and symptoms and when to return. At this time I feel comfortable discharge home. Time: 18:18 Medications Administered Discontinued Medications Generic Name Dose Route Start Last Admin Trade Name Freq PRN Reason Stop Dose Admin Acetaminophen 975 mg 05/23/23 13:46 05/23/23 13:52 Acetaminophen 325 Mg Tablet PO 05/23/23 13:47 975 mg ONCE ONE Administration Ondansetron HCl 4 mg 05/23/23 13:49 05/23/23 13:51 Ondansetron Odt 4 Mg Tab.Macrina HARRISINGU 05/23/23 13:50 4 mg ONCE ONE Administration Medical Decision Making Medical Decision Making [facility] Narrative: 32-year-old female presents with fatigue, malaise, myalgias, vomiting, headache, coughing x3 days. Multiple sick contacts. Physical exam diffuse expiratory wheezing throughout. Vital signs stable. History and physical exam concerning for viral illness versus bronchitis versus asthma. Unlikely pulmonary embolism no significant risk factors, PERC negative, unlikely ACS, unlikely pneumonia, no signs of acute respiratory distress or pneumothorax Plan at this time labs, EKG ordered from triage, viral testing, x-ray. Differential Diagnosis Differential Diagnoses: The differential diagnosis associated with the presentation includes History and physical exam concerning for viral illness versus bronchitis versus asthma. Unlikely pulmonary embolism no significant risk factors, PERC negative, unlikely ACS, unlikely pneumonia, no signs of acute respiratory distress or pneumothorax Admission/Observation Consideration of admission/observation: Escalation of care including admission/observation considered Unlikely Lab Data [facility] Lab Attestation statement: I reviewed the patient's lab results. 05/23/23 14:37 05/23/23 14:37 Labs: Lab Results 05/23/23 05/23/23 Range/Units 14:37 14:38 WBC 7.0 (4.8-10.8) X10*3/uL RBC 4.15 L (4.20-5.50) X10*6/uL Hgb 10.4 L (12.0-16.0) g/dl Hct 33.1 L (37.0-47.0) % MCV 79.8 L (80.0-98.0) fL MCH 25.1 L (27.0-33.0) pg MCHC 31.4 (31.0-35.0) g/dl RDW 16.2 H (11.0-16.0) % Plt Count 303 (160-400) X10*3/uL MPV 10.3 (9.4-12.3) fL Immature Gran % (Auto) 0.3 (0.0-0.4) % Neut % (Auto) 66.9 (45-73) % Lymph % (Auto) 17.6 L (20-40) % Cass % (Auto) 14.9 H (2-11) % Eos % (Auto) 0.0 (0-4) % Baso % (Auto) 0.3 (0-2) % Lymph # (Auto) 1.2 (1.2-4.9) X10*3/uL Cass # (Auto) 1.0 (0.1-1.2) X10*3/uL Eos # (Auto) 0.0 (0.0-0.4) X10*3/uL Baso # (Auto) 0.0 (0.0-0.2) X10*3/uL Abs Immat Gran (auto) 0.02 (0.00-0.03) X10*3/uL Absolute Neuts (auto) 4.7 (2.0-8.3) x10*3/uL Absolute Nucleated RBC 0.000 (0.0-0.012) X10*3/uL Nucleated RBC % (auto) 0.0 (0.0-0.2) /100WBC Sodium 142 (135-145) mmol/L Potassium 3.5 (3.3-5.1) mmol/L Chloride 110 H (96-108) mmol/L Carbon Dioxide 23 (22-29) mmol/L Anion Gap 13 (12-20) BUN 7 L (9-16) mg/dL Creatinine 0.68 (0.5-1.4) mg/dL Estim Creat Clear Calc 144.2 Estimated GFR > 60 Random Glucose 79 (60-115) mg/dL Calcium 9.1 (8.4-10.2) mg/dL Total Bilirubin 0.2 (0.0-1.0) mg/dL Direct Bilirubin 0.2 (0.0-0.5) mg/dL AST 15 (5-31) U/L ALT 16 (0-31) U/L Alkaline Phosphatase 73 (39-117) U/L Troponin I High Sens < 2.7 (<3.5-17.0) ng/L Total Protein 7.8 (6.5-8.0) g/dL Albumin 4.2 (3.5-5.0) g/dL Lipase 15 (8-78) U/L Beta HCG, Quant < 2 mIU/mL Influenza Type A (PCR) POSITIVE A (Negative) Influenza Type B (PCR) NEGATIVE (Negative) RSV RNA Qual (PCR) NEGATIVE (Negative) SARS-CoV-2 RNA (RT-PCR) NEGATIVE (Negative) Independent Interpretation I performed an independent interpretation of an: EKG (Ventricular rate of 77 [place] normal, QRS normal, QT/QTC normal. EKG normal sinus rhythm no ST elevations or inversions concerning for acute ischemia) and Plain X-Ray ( XR/XR chest 2V IMPRESSION: No acute cardiopulmonary disease.) Radiology Impression Discussion of test interpretation with radiology: I have reviewed the radiologist's reading. External Record Review External record reviewed: Inpatient record, Office record, Outpatient record, Prior outpatient labs, Prior outpatient radiology, Primary care record and Outside ED record Tests considered The following testing was considered but not selected: No indication for CTA PERC negative, unlikely PE however considered CTA not indicated. Prescription Management I considered prescription management with: Other (Albuterol, prednisone, Zofran) Chronic Conditions Patient?s care impacted by: Diabetes and Other (Obesity) Critical Care Time Critical Care Time Critical Care Time: No Discharge Plan Discharge Clinical Impression: Influenza Patient Disposition: Home, Self-Care Instructions: Influenza (ED) Additional Instructions: Take your medications as prescribed. If you were prescribed antibiotics today, it is important that you take your medication to their entirety, do not skip any doses, do not finish them early. Follow-up with your primary care provider this week. Return to the emergency department with new or worsening symptoms. Such as fevers, chills, chest pain, shortness of breath, nausea, vomiting, dizziness, headache, vision changes, lethargy In case of emergency call 911 Zofran has been sent for nausea and vomiting. Inhaler, prednisone, nebulizing solution, benzenate for cough You can take ibuprofen every 6 hours, Tylenol every 4 as needed for fevers and pain Prescriptions: New ondansetron 4 mg tablet,disintegrating 4 mg PO Q6H PRN (Reason: nausea and vomiting) Qty: 14 0RF albuterol sulfate 90 mcg/actuation aerosol powdr breath activated 2 inh inhalation Q4-6H PRN (Reason: shortness of breath or wheezing) Qty: 1 0RF albuterol sulfate 2.5 mg /3 mL (0.083 %) solution for nebulization 2.5 mg inhalation Q6H Qty: 75 0RF benzonatate 100 mg capsule 100 mg PO BID PRN (Reason: cough) Qty: 20 0RF prednisone 50 mg tablet 50 mg PO DAILY 5 Days Qty: 5 0RF No Action FreeStyle Lite Strips Strip 4 strip miscellaneous QID 30 Days Qty: 100 1RF (DME) FRONT-WHEELED WALKER See Rx Instructions .Route .MEDSUPPLY Qty: 1 0RF Rx Instructions: As directed (DME) TUB SEAT with BACK See Rx Instructions .Route .MEDSUPPLY Qty: 1 0RF Rx Instructions: As directed (DME) BEDSIDE COMMODE See Rx Instructions .Route .MEDSUPPLY Qty: 1 0RF Rx Instructions: As directed gabapentin 400 mg capsule 400 mg PO TID 30 Days Qty: 90 3RF Rx Instructions: 1 capsule Orally Three times a day Dexilant 60 mg capsule,biphase delayed releas 60 mg PO DAILY Qty: 30 6RF ibuprofen [IBU] 800 mg tablet 800 mg PO Q8H PRN (Reason: pain/headaches) 30 Days Qty: 90 0RF Rx Instructions: Take with food ondansetron 4 mg tablet,disintegrating 4 mg PO Q8H PRN (Reason: nausea and vomiting) Qty: 10 0RF amlodipine [Norvasc] 5 mg tablet 5 mg PO DAILY Qty: 30 0RF benzonatate 200 mg capsule 200 mg PO TID PRN (Reason: cough) Qty: 30 0RF tramadol 50 mg tablet 50 mg PO Q6H PRN (Reason: pain (scale score 1-3)) Qty: 8 0RF tamsulosin 0.4 mg capsule 0.4 mg PO BEDTIME 14 Days Qty: 14 0RF naproxen 500 mg tablet 500 mg PO BID PRN (Reason: pain) 7 Days Qty: 14 0RF oxycodone 5 mg tablet 5 mg PO Q6H PRN (Reason: pain (scale score 7-10)) Qty: 15 0RF Rx Instructions: Partial Fill upon patient request. sertraline 100 mg tablet 100 mg PO DAILY hydroxyzine HCl 25 mg tablet See Rx Instructions .ROUTE .COMPLEX 30 Days Qty: 180 3RF Rx Instructions: 1 to 2 tablets 3 times a day as needed for anxiety; lidocaine 5 % adhesive patch,medicated 1 patch topical DAILY Qty: 15 0RF Rx Instructions: leave on most painful area for up to 12 hrs ferrous sulfate [Feosol] 325 mg (65 mg iron) tablet 325 mg PO DAILY 30 Days Qty: 30 5RF diclofenac sodium [Arthritis Pain (diclofenac)] 1 % gel 2 g topical QID PRN (Reason: pain) Qty: 100 0RF cyclobenzaprine 10 mg tablet 10 mg PO TID PRN (Reason: muscle spasm/neck pain) Qty: 30 0RF (DME) nebulizers [Compact Compressor Nebulizer] Misc See Rx Instructions .Route Qty: 1 0RF Rx Instructions: As directed labetalol 100 mg tablet 100 mg PO BID 90 Days Qty: 180 1RF (DME) lancets [FreeStyle Lancets] 28 gauge misc See Rx Instructions .ROUTE .MEDSUPPLY Qty: 100 1RF Rx Instructions: 4 times/day bupropion HCl 150 mg tablet extended release 24 hr 150 mg PO QAM spironolactone 50 mg tablet 50 mg PO BID Qty: 60 5RF metoclopramide HCl [Reglan] 5 mg tablet 5 mg PO QIDACHS Qty: 120 6RF pyridoxine (vitamin B6) 50 mg tablet 50 mg PO DAILY 90 Days Qty: 90 1RF Creon 36,000-114,000- 180,000 unit capsule,delayed release(DR/EC) 1 cap PO QID Qty: 120 6RF Rx Instructions: administer with meals and/or snacks Linzess 290 mcg capsule 290 mcg PO QAM 30 Days Qty: 30 6RF fluticasone propion-salmeterol [Advair HFA] 230-21 mcg/actuation HFA aerosol inhaler 2 puff inhalation Q12H Qty: 1 3RF albuterol sulfate [Ventolin HFA] 90 mcg/actuation HFA aerosol inhaler 2 puff inhalation Q4-6H PRN (Reason: shortness of breath or wheezing) Qty: 1 3RF Referrals: Jarrod Sherman MD [Primary Care Provider] - 2 days Stand Alone Forms: Work/School Release
--- NOTE | 2023-05-23 13:45 | ECG_ITS ---
Test Reason : NAUSEA/VOMITING Blood Pressure : / mmHG Vent. Rate : 077 BPM Atrial Rate : 077 BPM P-R Int : 128 ms QRS Dur : 088 ms QT Int : 364 ms P-R-T Axes : 012 042 002 degrees QTc Int : 411 ms Normal sinus rhythm Normal ECG When compared with ECG of 23-FEB-2023 00:52, No significant change was found Referred By: Nida Sanchez Electronically Signed By:TRANG CHAVARRIA
[2023-05-23] MEDS: Ondansetron ODT 4 MG TAB.RAPDIS TRANSLINGU (13:51)
[2023-05-23] MEDS: Acetaminophen 325 MG TABLET 975 MG PO (13:52)
[2023-05-23 14:44] LABS: MANUAL DIFF FLAG NO
[2023-05-23 14:47] LABS: Basophils Percent Auto 0.3 % (0-2); Hematocrit 33.1 % (37.0-47.0); Hemoglobin 10.4 g/dl (12.0-16.0); Imm Gran Abs Auto 0.02 X10*3/uL (0.00-0.03); Imm Gran Pct Auto 0.3 % (0.0-0.4); Lymphocytes Absolute Auto 1.2 X10*3/uL (1.2-4.9); Lymphocytes Percent Auto 17.6 % (20-40); Mean Corpuscular HGB Conc 31.4 g/dl (31.0-35.0); Mean Corpuscular Hemoglobin 25.1 pg (27.0-33.0); Mean Corpuscular Volume 79.8 fL (80.0-98.0); Mean Platelet Volume 10.3 fL (9.4-12.3); Monocytes Percent Auto 14.9 % (2-11); Neutrophils Absolute Auto 4.7 x10*3/uL (2.0-8.3); Neutrophils Percent Auto 66.9 % (45-73); Platelet Count 303 X10*3/uL (160-400); Red Blood Count 4.15 X10*6/uL (4.20-5.50); Red Cell Distribution Width 16.2 % (11.0-16.0)
[2023-05-23 15:11] LABS: Alanine Aminotransferase 16 U/L (0-31); Albumin Level 4.2 g/dL (3.5-5.0); Alkaline Phosphatase 73 U/L (39-117); Anion Gap 13 (12-20); Aspartate Amino Transferase 15 U/L (5-31); Bilirubin Direct 0.2 mg/dL (0.0-0.5); Bilirubin Total 0.2 mg/dL (0.0-1.0); Blood Urea Nitrogen 7 mg/dL (9-16); Calcium 9.1 mg/dL (8.4-10.2); Carbon Dioxide 23 mmol/L (22-29); Chloride 110 mmol/L (96-108); Creatinine Clr Calc Pharmacy 144.2; Estimated Glomerular Filt Rate > 60; Glucose Random 79 mg/dL (60-115); Lipase 15 U/L (8-78); Potassium 3.5 mmol/L (3.3-5.1); Sodium 142 mmol/L (135-145); Total Protein 7.8 g/dL (6.5-8.0)
[2023-05-23 15:12] LABS: HCG Quantitative < 2 mIU/mL
[2023-05-23 15:13] LABS: Troponin-I High Sensitivity < 2.7 ng/L (<3.5-17.0)
[2023-05-23 15:36] LABS: Influenza A PCR POSITIVE (Negative); Influenza B PCR NEGATIVE (Negative); Resp Syncy Virus RNA Qual PCR NEGATIVE (Negative); SARS COV2 PCR INHOUSE NEGATIVE (Negative)
== END 2023-05-23 18:43 | disposition home or self-care (01) ==
PROVIDERS: Physician Assistant Medical; Emergency Provider Student in an Organized Health Care Education/Training Program; PCP Internal Medicine
DX: J10.1 Influenza due to other identified influenza virus with other respiratory manifestations (principal); Z11.52 Encounter for screening for COVID-19; I10 Essential (primary) hypertension; E78.5 Hyperlipidemia, unspecified; Z90.49 Acquired absence of other specified parts of digestive tract; Z87.891 Personal history of nicotine dependence
CPT/HCPCS: 0241U; 71046; 80048; 80076; 83690; 84484; 84702; 85025; 93005; 99282; 99283

== ENCOUNTER → 2023-05-23 13:45 | Outpatient (BNV) | payer OTHER, SELFPAY | PROVIDERS: PCP Internal Medicine; Visit Provider Internal Medicine | DX: R06.02 Shortness of breath (principal) | CPT/HCPCS: 93010 ==

== ENCOUNTER 2023-05-29 10:07 | Outpatient (REF) | payer OTHER, SELFPAY ==
[2023-05-29 11:05] LABS: Appearance Urine Cloudy; Color Urine Yellow; Glucose Urine UA Negative (Negative); Leukocyte Esterase Urine Large (3+) (Negative); Nitrite Urine Negative (Negative); Specific Gravity - Urine 1.015 (1.005-1.025); UMIC TRIGGER UACC YES; Urine Blood Large (3+) (Negative); Urine Ketones Negative (Negative); Urine Protein 100 (2+) mg/dL (Neg-Trace)
[2023-05-29 11:11] LABS: Bacteria Urine 4+ (None Seen); RBC Urine >20 /HPF (0-2); UACC Culture Trigger YES; WBC Urine >50 /HPF (0-5)
== END 2023-05-29 10:08 | disposition home or self-care (01) ==
LOC: HO.LAB 10:07
PROVIDERS: PCP Internal Medicine; Visit Provider Internal Medicine
DX: R39.9 Unspecified symptoms and signs involving the genitourinary system (principal)
CPT/HCPCS: 81001; 81003; 87086; 87088; 87186

== ENCOUNTER 2023-05-30 17:01 | Emergency (ER) | payer OTHER, SELFPAY ==
--- NOTE | ~2023-05-30 | CT_ITS ---
EXAMINATION: CT ABDOMEN AND PELVIS WITHOUT CONTRAST CLINICAL INFORMATION: Bilateral flank pain with history of stones COMPARISON: None available. TECHNIQUE: Multidetector volumetric imaging was performed from the superior aspect of the liver through the pubic symphysis. Sagittal and coronal reformatted images were obtained on the technologist's workstation. This CT examination was performed using dose optimization techniques as appropriate, variously including the following: *Automated exposure control *Adjustment of mA and/or kV according to patient size (this includes techniques or standardized protocols for targeted exams where dose is matched to indication/reason for exam; i.e. extremities or head) *Use of iterative reconstruction technique DLP: 743 mGy-cm FINDINGS: LUNG BASES: The visualized lung bases are unremarkable. LIVER, GALLBLADDER, AND BILIARY TREE: The liver is normal in size, shape, and attenuation. No focal hepatic lesion or biliary ductal dilatation is present. Status post cholecystectomy. PANCREAS: Unremarkable. SPLEEN: Unremarkable. ADRENAL GLANDS: Unremarkable. KIDNEYS AND URETERS: The kidneys are normal in size, shape, and attenuation. 2 stones are present in the left kidney measuring 5 and 2 mm in size. A single 2 mm calculus is present at the upper pole of the right kidney. There is mild pelvocaliectasis is seen on the right with prominent sized ureter but an obstructing calculus is not seen. The time of the prior study there was marked hydronephrosis with a distal obstructing 3 mm calculus that is no longer present. Hydronephrosis is seen on the left. No ureteral calculi seen. No renal masses BLADDER: Unremarkable. GASTROINTESTINAL TRACT: The small and large bowel are unremarkable. The appendix is unremarkable. ABDOMINAL WALL: No significant hernia is appreciated. LYMPH NODES: Shotty retroperitoneal lymph nodes are present but there is no adenopathy. VASCULAR: Unremarkable. PELVIC VISCERA: The retroverted uterus and adnexa are unremarkable. OSSEOUS STRUCTURES: Right hip prosthesis obscures detail in the pelvis. CT/CT abdomen pelvis wo IV con IMPRESSION: 1. Bilateral nonobstructing renal calculi. 2. Mild pelvocaliectasis on the right with prominent ureter but an obstructing calculus is not seen. 3. Other incidental findings as described above. Fleischner guidelines were followed.
[2023-05-30 18:24] VITALS: BP 153/82; PULSE 79; RESP 20; TEMP 36.3; O2SAT 100; BMI 39.9
[2023-05-30 18:40] LABS: Appearance Urine Turbid; Color Urine Orange; Glucose Urine UA Negative (Negative); Leukocyte Esterase Urine Large (3+) (Negative); Nitrite Urine Negative (Negative); UMIC TRIGGER UACC YES; Urine Blood Large (3+) (Negative); Urine Ketones Negative (Negative); Urine Protein 100 (2+) mg/dL (Neg-Trace)
[2023-05-30 18:50] LABS: Bacteria Urine 3+ (None Seen); Hyaline Casts Urine >20 /LPF (0-2); RBC Urine >20 /HPF (0-2); UACC Culture Trigger YES; WBC Urine >50 /HPF (0-5)
--- NOTE | 2023-05-30 21:09 | ED.FEMALEGU ---
HPI - Female Genitourinary General Chief complaint: Urogenital-Female Stated complaint: UTI/Kidney Pain Time Seen by Provider: 05/30/23 21:03 Source: patient Mode of arrival: ambulatory Limitations: no limitations History of Present Illness HPI Narrative: To the emergency room complaining of for days of bilateral flank pain hematuria and dysuria. Patient states that she has history of kidney stones. Last time that she had a kidney stone she needed it surgery. Patient denies fever chills. Patient complaining of suprapubic pain and pressure. Related Data Home Medications Medication Instructions Recorded Confirmed sertraline 100 mg tablet 100 mg PO DAILY 08/22/20 04/17/23 bupropion HCl 150 mg 24 hr tablet, 150 mg PO QAM 05/03/21 04/17/23 extended release Previous Rx's Medication Instructions Recorded lancets 28 gauge (FreeStyle #100 ea 06/27/20 Lancets) FreeStyle Lite Strips (blood sugar 4 strip miscellaneous QID 30 days 07/20/20 diagnostic) #100 strips spironolactone 50 mg tablet 50 mg PO BID #60 tabs 01/05/22 hydroxyzine HCl 25 mg tablet See Rx Instructions .Route 04/04/22 .COMPLEX anxiety 30 days #180 tabs ondansetron 4 mg disintegrating 4 mg PO Q8H PRN nausea and 05/04/22 tablet vomiting #10 tabs lidocaine 5 % topical patch 1 patch topical DAILY #15 ea 05/08/22 amlodipine 5 mg tablet (Norvasc) 5 mg PO DAILY #30 tabs 05/13/22 BEDSIDE COMMODE #1 ea 05/14/22 FRONT-WHEELED WALKER #1 ea 05/14/22 TUB SEAT with BACK #1 ea 05/14/22 metoclopramide HCl 5 mg tablet 5 mg PO QIDACHS #120 tabs 09/19/22 (Reglan) naproxen 500 mg tablet 500 mg PO BID PRN pain 7 days #14 10/01/22 tabs tamsulosin 0.4 mg capsule 0.4 mg PO BEDTIME 14 days #14 caps 10/01/22 tramadol 50 mg tablet 50 mg PO Q6H PRN pain (scale score 10/01/22 1-3) #8 tabs gabapentin 400 mg capsule 400 mg PO TID 30 days #90 caps 10/17/22 Dexilant 60 mg capsule, delayed 60 mg PO DAILY #30 caps 12/20/22 release (dexlansoprazole) diclofenac sodium 1 % topical gel 2 g topical QID PRN pain #100 grams 01/03/23 (Arthritis Pain (diclofenac)) ferrous sulfate 325 mg (65 mg 325 mg PO DAILY 30 days #30 tabs 01/03/23 iron) tablet (Feosol) pyridoxine (vitamin B6) 50 mg 50 mg PO DAILY 90 days #90 tabs 01/10/23 tablet vbmzqv-apcqdsil-vlwdsyi 1 cap PO QID #120 caps 01/11/23 36,000-114,000-180,000 unit capsule,delay rel (Creon) linaclotide 290 mcg capsule 290 mcg PO QAM 30 days #30 caps 01/25/23 (Linzess) benzonatate 200 mg capsule 200 mg PO TID PRN cough #30 caps 02/23/23 labetalol 100 mg tablet 100 mg PO BID 90 days #180 tabs 02/28/23 nebulizers (Compact Compressor #1 ea 02/28/23 Nebulizer) oxycodone 5 mg tablet 5 mg PO Q6H PRN pain (scale score 03/06/23 7-10) #15 tabs albuterol sulfate 90 mcg/actuation 2 puff inhalation Q4-6H PRN 04/17/23 aerosol inhaler (Ventolin HFA) shortness of breath or wheezing #1 ea cyclobenzaprine 10 mg tablet 10 mg PO TID PRN muscle spasm/neck 04/17/23 pain #30 tabs fluticasone propionate 230 2 puff inhalation Q12H #1 ea 04/17/23 mcg-salmeterol 21 mcg/actuation HFA inhaler (Advair HFA) ibuprofen 800 mg tablet (IBU) 800 mg PO Q8H PRN pain/headaches 05/18/23 30 days #90 tabs albuterol sulfate 2.5 mg/3 mL 2.5 mg (3 mL) inhalation Q6H #75 mL 05/23/23 (0.083 %) solution for nebulization albuterol sulfate 90 mcg/actuation 2 inh inhalation Q4-6H PRN 05/23/23 breath activated powder inhaler shortness of breath or wheezing #1 ea benzonatate 100 mg capsule 100 mg PO BID PRN cough #20 caps 05/23/23 ondansetron 4 mg disintegrating 4 mg PO Q6H PRN nausea and 05/23/23 tablet vomiting #14 tabs prednisone 50 mg tablet 50 mg PO DAILY 5 days #5 tabs 05/23/23 ketorolac 10 mg tablet 10 mg PO TID PRN pain #10 tabs 05/30/23 levofloxacin 500 mg tablet 500 mg PO DAILY #9 tabs 05/30/23 Allergies Allergy/AdvReac Type Severity Reaction Status Date / Time amoxicillin [AMOXICILLIN] Allergy Intermediate NAUSEA & Verified 04/20/23 18:11 VOMITING, stomach pain, vomiting, stomach upset topiramate [From TOPAMAX] Allergy Intermediate TREMORS, Verified 04/20/23 18:11 nausea and vomiting latex [LATEX] Allergy Mild RASH Verified 04/20/23 18:11 medroxyprogesterone Allergy Mild RASH Verified 04/20/23 18:11 [From PROVERA] lactose Allergy bloating , Verified 04/20/23 18:11 diarrhea Review of Systems Review of Systems: Constitutional : No Weight loss, No Fever, No Chills, No Night Sweats, No Fatigue, No Malaise ENT/Mouth : No Hearing loss, No Ear Pain, No Nasal Congestion, No Sinus Pain, No Hoarseness, No sore throat, No Rhinorrhea, No Swallowing Difficulty Eyes: No Eye Pain, No Swelling, No Redness, No Foreign Body, No Discharge, No Vision Changes Cardiovascular : No Chest Pain, No SOB, No Dyspnea on Exertion, No Orthopnea, No Edema, No Palpitations Respiratory : No Cough, No Sputum, No Wheezing, No Smoke Exposure, No Dyspnea Gastrointestinal : No Nausea, No Vomiting, No Diarrhea, No Constipation, No abdominal Pain, No Hematochezia, No Melena Genitourinary : Complaining of bilateral flank pain, dysuria, hematuria and frequency, No Urinary Incontinence, No Urgency, no Urinary Flow Changes, No Hesitancy Musculoskeletal : No joint pain, No Myalgias, No Joint Swelling Skin : No Skin Lesions, No rash Neuro : No Weakness, No Numbness, No Paresthesias, No Loss of Consciousness, No Dizziness, No Headache Psych : No Anxiety/Panic, No Depression, No SI/HI/AH/VH, No Social Issues, Heme/Lymph: No Bruising, No Bleeding,No Lymphadenopathy Endocrine : No Polyuria, No Polydipsia, No Temperature Intolerance [facility] Past Medical History Medical History Benign essential hypertension Shortness of breath Thoracic back pain Intermittent chest pain Left ear pain Neck pain Depression Atypical chest pain Tension headache Myofascial pain Sacroiliac joint pain Bilateral primary osteoarthritis of hip Polyuria Right-sided chest pain Post depression BMI 39.0-39.9,adult Pain in left lopez Hematoma of left lower extremity Trigger finger of left thumb Trigger finger of right thumb Insomnia Morbid obesity with BMI of 40.0-44.9, adult Smoker Annual physical exam Carpal tunnel syndrome, bilateral Left leg swelling Personal history of gestational diabetes Wrist pain Obesity (BMI 30-39.9) Second trimester Supervision of other high risk , antepartum Supervision of other normal PCOS (polycystic ovarian syndrome) control counseling Migraines Vulvar cyst Lower back pain Anxiety Hyperlipemia Fibromyalgia Rheumatoid arthritis Surgical History S/P laparoscopic cholecystectomy (03/06/23) H/O tubal ligation History of hip replacement, total History of esophagogastroduodenoscopy (EGD) History of removal of cyst History of tonsillectomy and adenoidectomy Family History Family History Father Medical history unknown Mother Diabetes Hypertension Maternal Aunt Breast cancer Ovarian cancer Mental health disorder Maternal Grandmother Diabetes Hypertension Social History Social History Household Members: Spouse and Children Housing: Condominium Alcohol intake: never Patient Tobacco Use Status: Former Tobacco user Quit Date: 2.5 yrs e-Cigarette/Vaping Use: Never Used Second Hand Smoke Exposure: No Substance Use Type: Marijuana Advance Directives: No Advance Directives Information Provided: No service: No Current occupational status: disabled Sexual orientation: Straight/Heterosexual Gender identity: Female Cognitive needs: No Hearing needs: No Vision needs: Yes Physical Exam Vital Signs: Vital Signs: Last Vital Signs Temp 97.4 F 05/30/23 18:24 Pulse 79 05/30/23 18:24 Resp 20 05/30/23 18:24 BP 153/82 H 05/30/23 18:24 Pulse Ox 100 05/30/23 18:24 O2 Del Method Room Air 05/30/23 18:24 BMI result Body Mass Index 39.9 Const: Other: Appearance: Alert. Oriented X3. No acute distress. Eyes: Pupils equal, round and reactive to light. ENT: Pharynx normal. Neck: Normal inspection. Neck supple. No lymph nodes noted. No crepitus CVS: Normal heart rate and rhythm. Pulses normal. Normal S1 and S2 Respiratory: No respiratory distress. Breath sounds normal. No Wheezing. No rales Abdomen: Soft and nontender. No rigidity. No distention. Positive CVA tenderness bilaterally Skin: Skin warm and dry. Normal skin color. Normal skin turgor. Extremities: No lower extremity edema. No Lacerations. No Rash Neuro: Oriented X 3. No motor deficit. No sensory deficit. Moving all extremities. No slurred speech. CN 2 through 12 grossly intact Psych: calm, cooperative, normal affect Medications Administered Discontinued Medications Generic Name Dose Route Start Last Admin Trade Name Freq PRN Reason Stop Dose Admin Ketorolac Tromethamine 60 mg 05/30/23 21:10 05/30/23 21:51 Ketorolac Tromethamine 60 Mg/2 Ml Vial IM 05/30/23 21:11 60 mg ONCE ONE Administration Levofloxacin 500 mg 05/30/23 21:10 05/30/23 21:51 Levofloxacin 500 Mg Tablet PO 05/30/23 21:11 500 mg ONCE ONE Administration Medical Decision Making Medical Decision Making [facility] Narrative: -my interpretation of labs: Positive UTI. -patient has history of nephrolithiasis and ureterolithiasis requiring surgery. CT scan and labs pending -patient has no fever, not tachycardic, no dropping in blood pressure. Sepsis not suspected. -clinically, patient has pyelonephritis, given levofloxacin and IM Toradol Differential Diagnosis Differential Diagnoses: The differential diagnosis associated with the presentation includes (UTI, pyelonephritis, renal colic, ureterolithiasis) Admission/Observation Consideration of admission/observation: Escalation of care including admission/observation considered (Patient patient's presentation, admission was considered) Lab Data [facility] Lab Attestation statement: I reviewed the patient's lab results. 05/30/23 21:26 05/30/23 21:26 Labs: Lab Results 05/30/23 05/30/23 Range/Units 18:28 21:26 WBC 14.0 H (4.8-10.8) X10*3/uL RBC 4.26 (4.20-5.50) X10*6/uL Hgb 10.7 L (12.0-16.0) g/dl Hct 34.0 L (37.0-47.0) % MCV 79.8 L (80.0-98.0) fL MCH 25.1 L (27.0-33.0) pg MCHC 31.5 (31.0-35.0) g/dl RDW 15.9 (11.0-16.0) % Plt Count 403 H D (160-400) X10*3/uL MPV 10.4 (9.4-12.3) fL Immature Gran % (Auto) 0.4 (0.0-0.4) % Neut % (Auto) 69.8 (45-73) % Lymph % (Auto) 20.9 (20-40) % [place] % (Auto) 7.4 (2-11) % Eos % (Auto) 1.1 (0-4) % Baso % (Auto) 0.4 (0-2) % Lymph # (Auto) 2.9 (1.2-4.9) X10*3/uL [place] # (Auto) 1.0 (0.1-1.2) X10*3/uL Eos # (Auto) 0.2 (0.0-0.4) X10*3/uL Baso # (Auto) 0.1 (0.0-0.2) X10*3/uL Abs Immat Gran (auto) 0.05 H (0.00-0.03) X10*3/uL Absolute Neuts (auto) 9.8 H (2.0-8.3) x10*3/uL Absolute Nucleated RBC 0.000 (0.0-0.012) X10*3/uL Nucleated RBC % (auto) 0.0 (0.0-0.2) /100WBC Sodium 138 (135-145) mmol/L Potassium 3.7 (3.3-5.1) mmol/L Chloride 108 (96-108) mmol/L Carbon Dioxide 21 L (22-29) mmol/L Anion Gap 13 (12-20) BUN 8 L (9-16) mg/dL Creatinine 0.62 (0.5-1.4) mg/dL Estim Creat Clear Calc 136.4 Estimated GFR > 60 Random Glucose 88 (60-115) mg/dL Lactic Acid 0.7 (0.5-2.0) mmol/L Calcium 9.7 D (8.4-10.2) mg/dL Urine Color [place] A Urine Appearance Turbid Urine pH 8.0 (5.0-9.0) Ur Specific [place] 1.010 (1.005-1.025) Urine Protein 100 (2+) H (Neg-Trace) mg/dL Urine Glucose (UA) Negative (Negative) mg/dL Urine Ketones Negative (Negative) mg/dL Urine Blood Large (3+) H (Negative) Urine Nitrite Negative (Negative) Ur Leukocyte Esterase Large (3+) H (Negative) Urine RBC >20 H (0-2) /HPF Urine WBC >50 H (0-5) /HPF Ur Squamous Epith Cells 6-10 (0-2) /HPF Urine Bacteria 3+ (None Seen) Hyaline Casts >20 (0-2) /LPF Urine Test NEGATIVE (NEGATIVE) Independent Interpretation I performed an independent interpretation of an: CT Scan Radiology Impression Discussion of test interpretation with radiology: I have reviewed the radiologist's reading. Radiologist Impression: FINDINGS: LUNG BASES: The visualized lung bases are unremarkable. LIVER, GALLBLADDER, AND BILIARY TREE: The liver is normal in size, shape, and attenuation. No focal hepatic lesion or biliary ductal dilatation is present. Status post cholecystectomy. PANCREAS: Unremarkable. SPLEEN: Unremarkable. ADRENAL GLANDS: Unremarkable. KIDNEYS AND URETERS: The kidneys are normal in size, shape, and attenuation. 2 stones are present in the left kidney measuring 5 and 2 mm in size. A single 2 mm calculus is present at the upper pole of the right kidney. There is mild pelvocaliectasis is seen on the right with prominent sized ureter but an obstructing calculus is not seen. The time of the prior study there was marked hydronephrosis with a distal obstructing 3 mm calculus that is no longer present. Hydronephrosis is seen on the left. No ureteral calculi seen. No renal masses BLADDER: Unremarkable. GASTROINTESTINAL TRACT: The small and large bowel are unremarkable. The appendix is unremarkable. ABDOMINAL WALL: No significant hernia is appreciated. LYMPH NODES: Shotty retroperitoneal lymph nodes are present but there is no adenopathy. VASCULAR: Unremarkable. PELVIC VISCERA: The retroverted uterus and adnexa are unremarkable. OSSEOUS STRUCTURES: Right hip prosthesis obscures detail in the pelvis. CT/CT abdomen pelvis wo IV con IMPRESSION: 1. Bilateral nonobstructing renal calculi. 2. Mild pelvocaliectasis on the right with prominent ureter but an obstructing calculus is not seen. 3. Other incidental findings as described above. Fleischner guidelines were followed. Critical Care Time Critical Care Time Critical Care Time: Yes Total Critical Care Time: 60 Attestation: I have personally provided critical care time. Time includes review of lab data, radiology results, discussion with consultants, and monitoring for potential decompensation. Intervention performed as documented. Discharge Plan Discharge Clinical Impression: Pyelonephritis Patient Disposition: Home, Self-Care Instructions: Kidney Infection (ED) Additional Instructions: Please follow-up with your primary care physician tomorrow. If you have any worsening or new symptoms, please return to the emergency room or call 911 Prescriptions: New levofloxacin 500 mg tablet 500 mg PO DAILY Qty: 9 0RF ketorolac 10 mg tablet 10 mg PO TID PRN (Reason: pain) Qty: 10 0RF Rx Instructions: Do not use this medication with ibuprofen/Aleve/NSAIDs, only Tylenol if needed No Action FreeStyle Lite Strips Strip 4 strip miscellaneous QID 30 Days Qty: 100 1RF (DME) FRONT-WHEELED WALKER See Rx Instructions .Route .MEDSUPPLY Qty: 1 0RF Rx Instructions: As directed (DME) TUB SEAT with BACK See Rx Instructions .Route .MEDSUPPLY Qty: 1 0RF Rx Instructions: As directed (DME) BEDSIDE COMMODE See Rx Instructions .Route .MEDSUPPLY Qty: 1 0RF Rx Instructions: As directed gabapentin 400 mg capsule 400 mg PO TID 30 Days Qty: 90 3RF Rx Instructions: 1 capsule Orally Three times a day Dexilant 60 mg capsule,biphase delayed releas 60 mg PO DAILY Qty: 30 6RF ibuprofen [IBU] 800 mg tablet 800 mg PO Q8H PRN (Reason: pain/headaches) 30 Days Qty: 90 0RF Rx Instructions: Take with food ondansetron 4 mg tablet,disintegrating 4 mg PO Q8H PRN (Reason: nausea and vomiting) Qty: 10 0RF amlodipine [Norvasc] 5 mg tablet 5 mg PO DAILY Qty: 30 0RF benzonatate 200 mg capsule 200 mg PO TID PRN (Reason: cough) Qty: 30 0RF ondansetron 4 mg tablet,disintegrating 4 mg PO Q6H PRN (Reason: nausea and vomiting) Qty: 14 0RF albuterol sulfate 90 mcg/actuation aerosol powdr breath activated 2 inh inhalation Q4-6H PRN (Reason: shortness of breath or wheezing) Qty: 1 0RF albuterol sulfate 2.5 mg /3 mL (0.083 %) solution for nebulization 2.5 mg inhalation Q6H Qty: 75 0RF benzonatate 100 mg capsule 100 mg PO BID PRN (Reason: cough) Qty: 20 0RF prednisone 50 mg tablet 50 mg PO DAILY 5 Days Qty: 5 0RF tramadol 50 mg tablet 50 mg PO Q6H PRN (Reason: pain (scale score 1-3)) Qty: 8 0RF tamsulosin 0.4 mg capsule 0.4 mg PO BEDTIME 14 Days Qty: 14 0RF naproxen 500 mg tablet 500 mg PO BID PRN (Reason: pain) 7 Days Qty: 14 0RF oxycodone 5 mg tablet 5 mg PO Q6H PRN (Reason: pain (scale score 7-10)) Qty: 15 0RF Rx Instructions: Partial Fill upon patient request. sertraline 100 mg tablet 100 mg PO DAILY hydroxyzine HCl 25 mg tablet See Rx Instructions .ROUTE .COMPLEX 30 Days Qty: 180 3RF Rx Instructions: 1 to 2 tablets 3 times a day as needed for anxiety; lidocaine 5 % adhesive patch,medicated 1 patch topical DAILY Qty: 15 0RF Rx Instructions: leave on most painful area for up to 12 hrs ferrous sulfate [Feosol] 325 mg (65 mg iron) tablet 325 mg PO DAILY 30 Days Qty: 30 5RF diclofenac sodium [Arthritis Pain (diclofenac)] 1 % gel 2 g topical QID PRN (Reason: pain) Qty: 100 0RF cyclobenzaprine 10 mg tablet 10 mg PO TID PRN (Reason: muscle spasm/neck pain) Qty: 30 0RF (DME) nebulizers [Compact Compressor Nebulizer] Misc See Rx Instructions .Route Qty: 1 0RF Rx Instructions: As directed labetalol 100 mg tablet 100 mg PO BID 90 Days Qty: 180 1RF (DME) lancets [FreeStyle Lancets] 28 gauge misc See Rx Instructions .ROUTE .MEDSUPPLY Qty: 100 1RF Rx Instructions: 4 times/day bupropion HCl 150 mg tablet extended release 24 hr 150 mg PO QAM spironolactone 50 mg tablet 50 mg PO BID Qty: 60 5RF metoclopramide HCl [Reglan] 5 mg tablet 5 mg PO QIDACHS Qty: 120 6RF pyridoxine (vitamin B6) 50 mg tablet 50 mg PO DAILY 90 Days Qty: 90 1RF Creon 36,000-114,000- 180,000 unit capsule,delayed release(DR/EC) 1 cap PO QID Qty: 120 6RF Rx Instructions: administer with meals and/or snacks Linzess 290 mcg capsule 290 mcg PO QAM 30 Days Qty: 30 6RF fluticasone propion-salmeterol [Advair HFA] 230-21 mcg/actuation HFA aerosol inhaler 2 puff inhalation Q12H Qty: 1 3RF albuterol sulfate [Ventolin HFA] 90 mcg/actuation HFA aerosol inhaler 2 puff inhalation Q4-6H PRN (Reason: shortness of breath or wheezing) Qty: 1 3RF
[2023-05-30 21:17] LABS: UPreg QC Valid YES; Urine Pregnancy NEGATIVE (NEGATIVE)
[2023-05-30 21:33] LABS: MANUAL DIFF FLAG NO
[2023-05-30 21:34] LABS: Basophils Absolute Auto 0.1 X10*3/uL (0.0-0.2); Basophils Percent Auto 0.4 % (0-2); Eosinophils Absolute Auto 0.2 X10*3/uL (0.0-0.4); Eosinophils Percent Auto 1.1 % (0-4); Hemoglobin 10.7 g/dl (12.0-16.0); Imm Gran Abs Auto 0.05 X10*3/uL (0.00-0.03); Imm Gran Pct Auto 0.4 % (0.0-0.4); Lymphocytes Absolute Auto 2.9 X10*3/uL (1.2-4.9); Lymphocytes Percent Auto 20.9 % (20-40); Mean Corpuscular HGB Conc 31.5 g/dl (31.0-35.0); Mean Corpuscular Hemoglobin 25.1 pg (27.0-33.0); Mean Corpuscular Volume 79.8 fL (80.0-98.0); Mean Platelet Volume 10.4 fL (9.4-12.3); Monocytes Percent Auto 7.4 % (2-11); Neutrophils Absolute Auto 9.8 x10*3/uL (2.0-8.3); Neutrophils Percent Auto 69.8 % (45-73); Platelet Count 403 X10*3/uL (160-400); Red Blood Count 4.26 X10*6/uL (4.20-5.50); Red Cell Distribution Width 15.9 % (11.0-16.0)
[2023-05-30 21:44] LABS: Lactic Acid 0.7 mmol/L (0.5-2.0)
[2023-05-30 21:49] LABS: Anion Gap 13 (12-20); Blood Urea Nitrogen 8 mg/dL (9-16); Calcium 9.7 mg/dL (8.4-10.2); Carbon Dioxide 21 mmol/L (22-29); Chloride 108 mmol/L (96-108); Creatinine Clr Calc Pharmacy 136.4; Estimated Glomerular Filt Rate > 60; Glucose Random 88 mg/dL (60-115); Potassium 3.7 mmol/L (3.3-5.1); Sodium 138 mmol/L (135-145)
[2023-05-30] MEDS: levoFLOXacin 500 MG TABLET PO (21:51)
[2023-05-30] MEDS: Ketorolac Tromethamine 60 MG/2 ML VIAL IM (21:51)
== END 2023-05-30 23:25 | disposition home or self-care (01) ==
PROVIDERS: Emergency Provider Emergency Medicine; PCP Internal Medicine
DX: N12 Tubulo-interstitial nephritis, not specified as acute or chronic (principal); R10.2 Pelvic and perineal pain; Z79.899 Other long term (current) drug therapy
CPT/HCPCS: 36415; 74176; 80048; 81001; 81025; 83605; 85025; 87040; 96372; 99283; 99284; J1885

== ENCOUNTER 2023-06-08 21:44 | Emergency (ER) | payer OTHER, SELFPAY ==
--- NOTE | ~2023-06-08 | US_ITS ---
EXAMINATION: US PELVIS CLINICAL INFORMATION: Ongoing vaginal bleeding COMPARISON: CT abdomen/pelvis dated 05/30/2023 TECHNIQUE: Ultrasound of the pelvis is performed using both transabdominal and transvaginal transducers along with Doppler. Transvaginal imaging is performed due to inadequate visualization transabdominally. FINDINGS: Uterus: The uterus is anteverted and measures 7.6 x 3.7 x 5.1 cm cm. The double wall endometrial thickness is 8 mm. There is fluid in the endometrial canal in keeping with the provided history of vaginal bleeding, likely blood products. Small calcification near the anterior endomyometrial junction. The uterus is smooth in contour and has normal myometrial echogenicity. No visible fibroid. Adnexa: Both ovaries are visualized. The ovaries both contain multiple small similar sized follicles which are peripherally distributed along with a central echogenic stroma. There is normal color flow to the adnexa. There is no ovarian torsion. This pelvic free fluid within physiologic normal limits.. Right ovary measures 3.6 x 2.1 x 2.0 cm. Normal arterial and venous waveforms present Left ovary measures 3.1 x 1.9 x 2.7 cm cm. Normal arterial and venous waveforms present Trace US/US pelvic ovarian doppler IMPRESSION: * Morphologically appearance of the ovaries suggestive of polycystic ovarian syndrome in the correct clinical context. * Normal bilayer endometrial thickness without evidence of polyp or mass. * Heterogeneous fluid in the endometrial canal likely represents blood products in keeping with the provided history.
--- NOTE | ~2023-06-08 | US_ITS ---
EXAMINATION: US PELVIS CLINICAL INFORMATION: Ongoing vaginal bleeding COMPARISON: CT abdomen/pelvis dated 05/30/2023 TECHNIQUE: Ultrasound of the pelvis is performed using both transabdominal and transvaginal transducers along with Doppler. Transvaginal imaging is performed due to inadequate visualization transabdominally. FINDINGS: Uterus: The uterus is anteverted and measures 7.6 x 3.7 x 5.1 cm cm. The double wall endometrial thickness is 8 mm. There is fluid in the endometrial canal in keeping with the provided history of vaginal bleeding, likely blood products. Small calcification near the anterior endomyometrial junction. The uterus is smooth in contour and has normal myometrial echogenicity. No visible fibroid. Adnexa: Both ovaries are visualized. The ovaries both contain multiple small similar sized follicles which are peripherally distributed along with a central echogenic stroma. There is normal color flow to the adnexa. There is no ovarian torsion. This pelvic free fluid within physiologic normal limits.. Right ovary measures 3.6 x 2.1 x 2.0 cm. Normal arterial and venous waveforms present Left ovary measures 3.1 x 1.9 x 2.7 cm cm. Normal arterial and venous waveforms present Trace US/US pelvic and transvaginal IMPRESSION: * Morphologically appearance of the ovaries suggestive of polycystic ovarian syndrome in the correct clinical context. * Normal bilayer endometrial thickness without evidence of polyp or mass. * Heterogeneous fluid in the endometrial canal likely represents blood products in keeping with the provided history.
[2023-06-08 21:48] VITALS: BP 157/88; PULSE 67; RESP 18; TEMP 36.3; O2SAT 100; BMI 40.1
[2023-06-08 22:29] LABS: MANUAL DIFF FLAG NO
[2023-06-08 22:30] LABS: Basophils Absolute Auto 0.1 X10*3/uL (0.0-0.2); Basophils Percent Auto 0.8 % (0-2); Eosinophils Absolute Auto 0.2 X10*3/uL (0.0-0.4); Eosinophils Percent Auto 2.2 % (0-4); Hematocrit 31.2 % (37.0-47.0); Hemoglobin 9.6 g/dl (12.0-16.0); Imm Gran Abs Auto 0.02 X10*3/uL (0.00-0.03); Imm Gran Pct Auto 0.3 % (0.0-0.4); Lymphocytes Absolute Auto 2.6 X10*3/uL (1.2-4.9); Lymphocytes Percent Auto 33.3 % (20-40); Mean Corpuscular HGB Conc 30.8 g/dl (31.0-35.0); Mean Corpuscular Hemoglobin 24.8 pg (27.0-33.0); Mean Corpuscular Volume 80.6 fL (80.0-98.0); Mean Platelet Volume 10.6 fL (9.4-12.3); Monocytes Absolute Auto 0.9 X10*3/uL (0.1-1.2); Monocytes Percent Auto 11.4 % (2-11); Platelet Count 373 X10*3/uL (160-400); Red Blood Count 3.87 X10*6/uL (4.20-5.50); Red Cell Distribution Width 16.4 % (11.0-16.0); White Blood Count 7.8 X10*3/uL (4.8-10.8)
[2023-06-08 22:55] LABS: Appearance Urine Turbid; Color Urine RED; Glucose Urine UA Negative (Negative); Leukocyte Esterase Urine Negative (Negative); Nitrite Urine Negative (Negative); Specific Gravity - Urine >= 1.030 (1.005-1.025); UMIC TRIGGER UACC YES; Urine Blood Large (3+) (Negative); Urine Ketones Negative (Negative); Urine Protein 100 (2+) mg/dL (Neg-Trace)
[2023-06-08 23:04] LABS: Bacteria Urine None Seen (None Seen); Hyaline Casts Urine 0-2 /LPF (0-2); RBC Urine >20 /HPF (0-2); UACC Culture Trigger YES; WBC Urine 21-50 /HPF (0-5)
[2023-06-08 23:51] LABS: Alanine Aminotransferase 109 U/L (0-31); Albumin Level 3.9 g/dL (3.5-5.0); Alkaline Phosphatase 60 U/L (39-117); Anion Gap 9 (12-20); Aspartate Amino Transferase 38 U/L (5-31); Bilirubin Direct < 0.2 mg/dL (0.0-0.5); Bilirubin Total 0.1 mg/dL (0.0-1.0); Blood Urea Nitrogen 18 mg/dL (9-16); Calcium 8.7 mg/dL (8.4-10.2); Carbon Dioxide 24 mmol/L (22-29); Chloride 112 mmol/L (96-108); Creatinine Clr Calc Pharmacy 121.1; Estimated Glomerular Filt Rate > 60; Glucose Random 102 mg/dL (60-115); HCG Quantitative < 2 mIU/mL; Lipase 70 U/L (8-78); Potassium 3.8 mmol/L (3.3-5.1); Sodium 141 mmol/L (135-145); Total Protein 7.2 g/dL (6.5-8.0)
[2023-06-09] MEDS: 0.9 % Sodium Chloride 1,000 ML 999 ML IV ×2 (00:23→00:24)
--- NOTE | 2023-06-09 00:24 | ED.GENADULT ---
HPI - General Adult General Chief complaint: Vaginal Bleeding Stated complaint: vaginal bleeding ,feeling weak Time Seen by Provider: 06/08/23 22:59 Source: patient Mode of arrival: ambulatory Limitations: no limitations History of Present Illness HPI narrative: 32 yold male presents to the ED Vaginal Bleeding for the past month. patient states past three days bleeding has worsened and states gushing blood. Patient states feeling lightheaded and think she may need blood transfusion. patient is on iron pills. Patient states no rectal bleeding, vomitting blood, fever, chills, or flank pain. Related Data Home Medications Medication Instructions Recorded Confirmed sertraline 100 mg tablet 100 mg PO DAILY 08/22/20 04/17/23 bupropion HCl 150 mg 24 hr tablet, 150 mg PO QAM 05/03/21 04/17/23 extended release Previous Rx's Medication Instructions Recorded lancets 28 gauge (FreeStyle #100 ea 06/27/20 Lancets) FreeStyle Lite Strips (blood sugar 4 strip miscellaneous QID 30 days 07/20/20 diagnostic) #100 strips spironolactone 50 mg tablet 50 mg PO BID #60 tabs 01/05/22 hydroxyzine HCl 25 mg tablet See Rx Instructions .Route 04/04/22 .COMPLEX anxiety 30 days #180 tabs ondansetron 4 mg disintegrating 4 mg PO Q8H PRN nausea and 05/04/22 tablet vomiting #10 tabs lidocaine 5 % topical patch 1 patch topical DAILY #15 ea 05/08/22 amlodipine 5 mg tablet (Norvasc) 5 mg PO DAILY #30 tabs 05/13/22 BEDSIDE COMMODE #1 ea 05/14/22 FRONT-WHEELED WALKER #1 ea 05/14/22 TUB SEAT with BACK #1 ea 05/14/22 metoclopramide HCl 5 mg tablet 5 mg PO QIDACHS #120 tabs 09/19/22 (Reglan) naproxen 500 mg tablet 500 mg PO BID PRN pain 7 days #14 10/01/22 tabs tamsulosin 0.4 mg capsule 0.4 mg PO BEDTIME 14 days #14 caps 10/01/22 tramadol 50 mg tablet 50 mg PO Q6H PRN pain (scale score 10/01/22 1-3) #8 tabs gabapentin 400 mg capsule 400 mg PO TID 30 days #90 caps 10/17/22 Dexilant 60 mg capsule, delayed 60 mg PO DAILY #30 caps 12/20/22 release (dexlansoprazole) diclofenac sodium 1 % topical gel 2 g topical QID PRN pain #100 grams 01/03/23 (Arthritis Pain (diclofenac)) ferrous sulfate 325 mg (65 mg 325 mg PO DAILY 30 days #30 tabs 01/03/23 iron) tablet (Feosol) pyridoxine (vitamin B6) 50 mg 50 mg PO DAILY 90 days #90 tabs 01/10/23 tablet eepwsk-[id number] 1 cap PO QID #120 caps 01/11/23 36,000-114,000-180,000 unit capsule,delay rel (Creon) linaclotide 290 mcg capsule 290 mcg PO QAM 30 days #30 caps 01/25/23 (Linzess) benzonatate 200 mg capsule 200 mg PO TID PRN cough #30 caps 02/23/23 labetalol 100 mg tablet 100 mg PO BID 90 days #180 tabs 02/28/23 nebulizers (Compact Compressor #1 ea 02/28/23 Nebulizer) oxycodone 5 mg tablet 5 mg PO Q6H PRN pain (scale score 03/06/23 7-10) #15 tabs albuterol sulfate 90 mcg/actuation 2 puff inhalation Q4-6H PRN 04/17/23 aerosol inhaler (Ventolin HFA) shortness of breath or wheezing #1 ea cyclobenzaprine 10 mg tablet 10 mg PO TID PRN muscle spasm/neck 04/17/23 pain #30 tabs fluticasone propionate 230 2 puff inhalation Q12H #1 ea 04/17/23 mcg-salmeterol 21 mcg/actuation HFA inhaler (Advair HFA) ibuprofen 800 mg tablet (IBU) 800 mg PO Q8H PRN pain/headaches 05/18/23 30 days #90 tabs albuterol sulfate 2.5 mg/3 mL 2.5 mg (3 mL) inhalation Q6H #75 mL 05/23/23 (0.083 %) solution for nebulization albuterol sulfate 90 mcg/actuation 2 inh inhalation Q4-6H PRN 05/23/23 breath activated powder inhaler shortness of breath or wheezing #1 ea benzonatate 100 mg capsule 100 mg PO BID PRN cough #20 caps 05/23/23 ondansetron 4 mg disintegrating 4 mg PO Q6H PRN nausea and 05/23/23 tablet vomiting #14 tabs prednisone 50 mg tablet 50 mg PO DAILY 5 days #5 tabs 05/23/23 ketorolac 10 mg tablet 10 mg PO TID PRN pain #10 tabs 05/30/23 levofloxacin 500 mg tablet 500 mg PO DAILY #9 tabs 05/30/23 nitrofurantoin 100 mg PO Q12H 7 days #14 caps 05/31/23 monohydrate/macrocrystals 100 mg capsule (Macrobid) Allergies Allergy/AdvReac Type Severity Reaction Status Date / Time amoxicillin [AMOXICILLIN] Allergy Intermediate NAUSEA & Verified 04/20/23 18:11 VOMITING, stomach pain, vomiting, stomach upset topiramate [From TOPAMAX] Allergy Intermediate TREMORS, Verified 04/20/23 18:11 nausea and vomiting latex [LATEX] Allergy Mild RASH Verified 04/20/23 18:11 medroxyprogesterone Allergy Mild RASH Verified 04/20/23 18:11 [From PROVERA] lactose Allergy bloating , Verified 04/20/23 18:11 diarrhea Review of Systems Review of Systems: Vaginal bleeding Yes all other systems are reviewed and are negative PMFSH Past Medical History Medical History Benign essential hypertension Shortness of breath Thoracic back pain Intermittent chest pain Left ear pain Neck pain Depression Atypical chest pain Tension headache Myofascial pain Sacroiliac joint pain Bilateral primary osteoarthritis of hip Polyuria Right-sided chest pain Post depression BMI 39.0-39.9,adult Pain in left lopez Hematoma of left lower extremity Trigger finger of left thumb Trigger finger of right thumb Insomnia Morbid obesity with BMI of 40.0-44.9, adult Smoker Annual physical exam Carpal tunnel syndrome, bilateral Left leg swelling Personal history of gestational diabetes Wrist pain Obesity (BMI 30-39.9) Second trimester Supervision of other high risk , antepartum Supervision of other normal PCOS (polycystic ovarian syndrome) control counseling Migraines Vulvar cyst Lower back pain Anxiety Hyperlipemia Fibromyalgia Rheumatoid arthritis Surgical History S/P laparoscopic cholecystectomy (03/06/23) H/O tubal ligation History of hip replacement, total History of esophagogastroduodenoscopy (EGD) History of removal of cyst History of tonsillectomy and adenoidectomy Family History Family History Father Medical history unknown Mother Diabetes Hypertension Maternal Aunt Breast cancer Ovarian cancer Mental health disorder Maternal Grandmother Diabetes Hypertension Social History Social History Household Members: Spouse and Children Housing: Condominium Alcohol intake: never Patient Tobacco Use Status: Former Tobacco user Quit Date: 2.5 yrs e-Cigarette/Vaping Use: Never Used Second Hand Smoke Exposure: No Substance Use Type: Marijuana Advance Directives: No Advance Directives Information Provided: No service: No Current occupational status: disabled Sexual orientation: Straight/Heterosexual Gender identity: Female Cognitive needs: No Hearing needs: No Vision needs: Yes Physical Exam ED Vital Signs: Vital Signs - 24 hr 06/08/23 21:48 06/09/23 01:26 06/09/23 03:57 Temperature 97.3 F 98.4 F Pulse Rate 67 62 76 Respiratory Rate 18 16 16 Blood Pressure 157/88 H 121/60 109/53 L Pulse Oximetry 100 100 98 Oxygen Delivery Method Room Air Room Air Room Air BMI result Body Mass Index 40.1 Const General: cooperative, healthy appearing, comfortable, no acute distress, well developed, alert and awake Orientation/consciousness: oriented to person, oriented to place, oriented to time and patient oriented x3 HENMT Head: Yes normal to inspection, Yes No palpable skull fracture present, Yes normocephalic, Yes atraumatic and No abrasion Eyes General: appearance normal, both eyes and all related structures Neck Neck: Yes normal visual inspection, Yes full ROM, Yes no lymphadenopathy, Yes no meningeal signs, Yes trachea midline, Yes supple, No anterior neck swelling and No tender Chest Chest palpation & inspection: normal inspection of the chest and normal palpation of entire chest wall Resp Effort & Inspection: normal respiratory effort and able to speak in complete sentences Auscultation: clear to auscultation bilaterally Cardio Jugular venous distension: no JVD Heart sounds: S1 normal heart sound present and S2 normal heart sound present GI Inspection: Yes normal to inspection and No abdominal wall ecchymosis Palpation (GI): Soft to palpation, not firm, nontender, no guarding and not rigid General: No CVA tenderness and Yes no CVA tenderness External Female Exam: normal external appearance Speculum Exam - Vagina: vaginal bleeding ( active vaginal bleeding. Negative for hemorrhaging. no moderate bleeding.) Speculum Exam - Cervix: Other cervical findings present ( vaginal bleeding) Bimanual Exam- Adnexa, other: tender ( bilateral) OB/external & speculum: vaginal bleeding ( active vaginal bleeding. Negative for hemorrhaging. no moderate bleeding.) Back/Spine/Pelvis Back: no CVA tenderness, No CVA tenderness and No back tenderness Skin Other: pale Neuro General: oriented to person, oriented to place, oriented to time, patient oriented x3, gait normal, tone normal, moves all extremities, Normal light touch and pain sensation, no meningeal signs, no focal motor deficits, CN's II-XI intact bilaterally and normal sensation to monofilament Extrem General: Yes normal to inspection and Yes full ROM Psych Appearance: grossly normal, well kempt and not disheveled Medications Administered Discontinued Medications Generic Name Dose Route Start Last Admin Trade Name Freq PRN Reason Stop Dose Admin Sodium Chloride 1,000 mls @ 999 mls/hr 06/08/23 23:51 06/09/23 03:44 Ns IV 06/09/23 00:51 Infused .Q1H1M STA Infusion Sodium Chloride 1,000 mls @ 999 mls/hr 06/08/23 23:45 06/09/23 03:44 Ns IV 06/09/23 00:45 Infused .Q1H1M MARY Infusion Medical Decision Making Medical Decision Making MDM Narrative: 32-year-old female with past medical history toward closest, COPD cholelithiasis, and kidney stones presents to ED for vaginal bleeding for a month.. Physical exam positive for active blood in the vaginal vault and active bleeding for cervix but negative for hemorrhaging. Patient is sent for ultrasound. Hemoglobin hematocrit 9.6 over 28. Fluids ordered. 2:45PM: Patient hemoglobin hematocrit stable. ultrasound negative for fibroid cysts, or necrotic fibroid uterus. Negative for ovarian cyst/rupture. Patient was informed to follow-up with primary care provider and her OBGYN provider at [facility]. Patient informed be compliant with iron pills. No indication for blood transfusion. Patient informed to follow-up with OBGYN for discussions for possible uterine ablation down the line the future if needed. No hemorrhagic bleeding presently in the ER. No profuse vaginal bleeding and vaginal vault. Urine is not an UTI. It is contamination from profuse vaginal bleeding. Multiple squamous cells. Negative for bacteria in urine. Lab Data 06/08/23 22:21 06/08/23 22:22 Labs: Lab Results 06/08/23 06/08/23 06/08/23 Range/Units 22:21 22:22 22:23 WBC 7.8 (4.8-10.8) X10*3/uL RBC 3.87 L (4.20-5.50) X10*6/uL Hgb 9.6 L (12.0-16.0) g/dl Hct 31.2 L (37.0-47.0) % MCV 80.6 (80.0-98.0) fL MCH 24.8 L (27.0-33.0) pg MCHC 30.8 L (31.0-35.0) g/dl RDW 16.4 H (11.0-16.0) % Plt Count 373 (160-400) X10*3/uL MPV 10.6 (9.4-12.3) fL Immature Gran % (Auto) 0.3 (0.0-0.4) % Neut % (Auto) 52.0 (45-73) % Lymph % (Auto) 33.3 (20-40) % Dillon % (Auto) 11.4 H (2-11) % Eos % (Auto) 2.2 (0-4) % Baso % (Auto) 0.8 (0-2) % Lymph # (Auto) 2.6 (1.2-4.9) X10*3/uL Dillon # (Auto) 0.9 (0.1-1.2) X10*3/uL Eos # (Auto) 0.2 (0.0-0.4) X10*3/uL Baso # (Auto) 0.1 (0.0-0.2) X10*3/uL Abs Immat Gran (auto) 0.02 (0.00-0.03) X10*3/uL Absolute Neuts (auto) 4.0 (2.0-8.3) x10*3/uL Absolute Nucleated RBC 0.000 (0.0-0.012) X10*3/uL Nucleated RBC % (auto) 0.0 (0.0-0.2) /100WBC Sodium 141 (135-145) mmol/L Potassium 3.8 (3.3-5.1) mmol/L Chloride 112 H (96-108) mmol/L Carbon Dioxide 24 (22-29) mmol/L Anion Gap 9 L (12-20) BUN 18 H (9-16) mg/dL Creatinine 0.70 (0.5-1.4) mg/dL Estim Creat Clear Calc 121.1 Estimated GFR > 60 Random Glucose 102 (60-115) mg/dL Calcium 8.7 D (8.4-10.2) mg/dL Total Bilirubin 0.1 (0.0-1.0) mg/dL Direct Bilirubin < 0.2 (0.0-0.5) mg/dL AST 38 H (5-31) U/L ALT 109 H (0-31) U/L Alkaline Phosphatase 60 (39-117) U/L Total Protein 7.2 (6.5-8.0) g/dL Albumin 3.9 (3.5-5.0) g/dL Lipase 70 (8-78) U/L Beta HCG, Quant < 2 mIU/mL Urine Color RED Urine Appearance Turbid Urine pH 6.0 (5.0-9.0) Ur Specific [place] >= 1.030 H (1.005-1.025) Urine Protein 100 (2+) H (Neg-Trace) mg/dL Urine Glucose (UA) Negative (Negative) mg/dL Urine Ketones Negative (Negative) mg/dL Urine Blood Large (3+) H (Negative) Urine Nitrite Negative (Negative) Ur Leukocyte Esterase Negative (Negative) Urine RBC >20 H (0-2) /HPF Urine WBC 21-50 H (0-5) /HPF Ur Squamous Epith Cells 11-20 (0-2) /HPF Urine Bacteria None Seen (None Seen) Hyaline Casts 0-2 (0-2) /LPF Chlam trachomat DNA PCR (Not Detect.) N.gonorrhoeae DNA (PCR) (Not Detect.) Blood Type A Positive Antibody Screen NEGATIVE 06/09/23 Range/Units 00:24 WBC (4.8-10.8) X10*3/uL RBC (4.20-5.50) X10*6/uL Hgb (12.0-16.0) g/dl Hct (37.0-47.0) % MCV (80.0-98.0) fL MCH (27.0-33.0) pg MCHC (31.0-35.0) g/dl RDW (11.0-16.0) % Plt Count (160-400) X10*3/uL MPV (9.4-12.3) fL Immature Gran % (Auto) (0.0-0.4) % Neut % (Auto) (45-73) % Lymph % (Auto) (20-40) % Dillon % (Auto) (2-11) % Eos % (Auto) (0-4) % Baso % (Auto) (0-2) % Lymph # (Auto) (1.2-4.9) X10*3/uL Dillon # (Auto) (0.1-1.2) X10*3/uL Eos # (Auto) (0.0-0.4) X10*3/uL Baso # (Auto) (0.0-0.2) X10*3/uL Abs Immat Gran (auto) (0.00-0.03) X10*3/uL Absolute Neuts (auto) (2.0-8.3) x10*3/uL Absolute Nucleated RBC (0.0-0.012) X10*3/uL Nucleated RBC % (auto) (0.0-0.2) /100WBC Sodium (135-145) mmol/L Potassium (3.3-5.1) mmol/L Chloride (96-108) mmol/L Carbon Dioxide (22-29) mmol/L Anion Gap (12-20) BUN (9-16) mg/dL Creatinine (0.5-1.4) mg/dL Estim Creat Clear Calc Estimated GFR Random Glucose (60-115) mg/dL Calcium (8.4-10.2) mg/dL Total Bilirubin (0.0-1.0) mg/dL Direct Bilirubin (0.0-0.5) mg/dL AST (5-31) U/L ALT (0-31) U/L Alkaline Phosphatase (39-117) U/L Total Protein (6.5-8.0) g/dL Albumin (3.5-5.0) g/dL Lipase (8-78) U/L Beta HCG, Quant mIU/mL Urine Color Urine Appearance Urine pH (5.0-9.0) Ur Specific [place] (1.005-1.025) Urine Protein (Neg-Trace) mg/dL Urine Glucose (UA) (Negative) mg/dL Urine Ketones (Negative) mg/dL Urine Blood (Negative) Urine Nitrite (Negative) Ur Leukocyte Esterase (Negative) Urine RBC (0-2) /HPF Urine WBC (0-5) /HPF Ur Squamous Epith Cells (0-2) /HPF Urine Bacteria (None Seen) Hyaline Casts (0-2) /LPF Chlam trachomat DNA PCR NOT DETECTED (Not Detect.) N.gonorrhoeae DNA (PCR) NOT DETECTED (Not Detect.) Blood Type Antibody Screen Discharge Plan Discharge Clinical Impression: Abnormal vaginal bleeding, Vaginal bleeding Patient Disposition: Home, Self-Care Instructions: Dysfunctional Uterine Bleeding (ED) Additional Instructions: please follow-up with the OBGYN at [facility] for re-evaluation. Return return to the ED immediately for any chest pain, shortness of breath, weakness, dizziness, profuse vaginal bleeding, vaginal blood clots, syncopal episodes, weakness, or any other concerning symptoms. Prescriptions: No Action FreeStyle Lite Strips Strip 4 strip miscellaneous QID 30 Days Qty: 100 1RF (DME) FRONT-WHEELED WALKER See Rx Instructions .Route .MEDSUPPLY Qty: 1 0RF Rx Instructions: As directed (DME) TUB SEAT with BACK See Rx Instructions .Route .MEDSUPPLY Qty: 1 0RF Rx Instructions: As directed (DME) BEDSIDE COMMODE See Rx Instructions .Route .MEDSUPPLY Qty: 1 0RF Rx Instructions: As directed gabapentin 400 mg capsule 400 mg PO TID 30 Days Qty: 90 3RF Rx Instructions: 1 capsule Orally Three times a day Dexilant 60 mg capsule,biphase delayed releas 60 mg PO DAILY Qty: 30 6RF ibuprofen [IBU] 800 mg tablet 800 mg PO Q8H PRN (Reason: pain/headaches) 30 Days Qty: 90 0RF Rx Instructions: Take with food nitrofurantoin monohyd/m-cryst [Macrobid] 100 mg capsule 100 mg PO Q12H 7 Days Qty: 14 0RF Rx Instructions: must administer with a meal/food ondansetron 4 mg tablet,disintegrating 4 mg PO Q8H PRN (Reason: nausea and vomiting) Qty: 10 0RF amlodipine [Norvasc] 5 mg tablet 5 mg PO DAILY Qty: 30 0RF benzonatate 200 mg capsule 200 mg PO TID PRN (Reason: cough) Qty: 30 0RF ondansetron 4 mg tablet,disintegrating 4 mg PO Q6H PRN (Reason: nausea and vomiting) Qty: 14 0RF albuterol sulfate 90 mcg/actuation aerosol powdr breath activated 2 inh inhalation Q4-6H PRN (Reason: shortness of breath or wheezing) Qty: 1 0RF albuterol sulfate 2.5 mg /3 mL (0.083 %) solution for nebulization 2.5 mg inhalation Q6H Qty: 75 0RF benzonatate 100 mg capsule 100 mg PO BID PRN (Reason: cough) Qty: 20 0RF prednisone 50 mg tablet 50 mg PO DAILY 5 Days Qty: 5 0RF levofloxacin 500 mg tablet 500 mg PO DAILY Qty: 9 0RF ketorolac 10 mg tablet 10 mg PO TID PRN (Reason: pain) Qty: 10 0RF Rx Instructions: Do not use this medication with ibuprofen/Aleve/NSAIDs, only Tylenol if needed tramadol 50 mg tablet 50 mg PO Q6H PRN (Reason: pain (scale score 1-3)) Qty: 8 0RF tamsulosin 0.4 mg capsule 0.4 mg PO BEDTIME 14 Days Qty: 14 0RF naproxen 500 mg tablet 500 mg PO BID PRN (Reason: pain) 7 Days Qty: 14 0RF oxycodone 5 mg tablet 5 mg PO Q6H PRN (Reason: pain (scale score 7-10)) Qty: 15 0RF Rx Instructions: Partial Fill upon patient request. sertraline 100 mg tablet 100 mg PO DAILY hydroxyzine HCl 25 mg tablet See Rx Instructions .ROUTE .COMPLEX 30 Days Qty: 180 3RF Rx Instructions: 1 to 2 tablets 3 times a day as needed for anxiety; lidocaine 5 % adhesive patch,medicated 1 patch topical DAILY Qty: 15 0RF Rx Instructions: leave on most painful area for up to 12 hrs ferrous sulfate [Feosol] 325 mg (65 mg iron) tablet 325 mg PO DAILY 30 Days Qty: 30 5RF diclofenac sodium [Arthritis Pain (diclofenac)] 1 % gel 2 g topical QID PRN (Reason: pain) Qty: 100 0RF cyclobenzaprine 10 mg tablet 10 mg PO TID PRN (Reason: muscle spasm/neck pain) Qty: 30 0RF (DME) nebulizers [Compact Compressor Nebulizer] Misc See Rx Instructions .Route Qty: 1 0RF Rx Instructions: As directed labetalol 100 mg tablet 100 mg PO BID 90 Days Qty: 180 1RF (DME) lancets [FreeStyle Lancets] 28 gauge misc See Rx Instructions .ROUTE .MEDSUPPLY Qty: 100 1RF Rx Instructions: 4 times/day bupropion HCl 150 mg tablet extended release 24 hr 150 mg PO QAM spironolactone 50 mg tablet 50 mg PO BID Qty: 60 5RF metoclopramide HCl [Reglan] 5 mg tablet 5 mg PO QIDACHS Qty: 120 6RF pyridoxine (vitamin B6) 50 mg tablet 50 mg PO DAILY 90 Days Qty: 90 1RF Creon 36,000-114,000- 180,000 unit capsule,delayed release(DR/EC) 1 cap PO QID Qty: 120 6RF Rx Instructions: administer with meals and/or snacks Linzess 290 mcg capsule 290 mcg PO QAM 30 Days Qty: 30 6RF fluticasone propion-salmeterol [Advair HFA] 230-21 mcg/actuation HFA aerosol inhaler 2 puff inhalation Q12H Qty: 1 3RF albuterol sulfate [Ventolin HFA] 90 mcg/actuation HFA aerosol inhaler 2 puff inhalation Q4-6H PRN (Reason: shortness of breath or wheezing) Qty: 1 3RF Stand Alone Forms: Work/School Release Interventions: ED Discharge Assessment Last Done: 06/09/23 03:58 Discharge Date/Time: 06/09/23 03:59 Print Language: Persian
--- NOTE | 2023-06-09 00:38 | PC.NURSE ---
vaginal exam done by Geoffrey MONTANO and this RN as spooler operator automatic. swabs sent to lab. iv established. ivf infusing. pt to u/s at this time.
[2023-06-09 01:26] VITALS: BP 121/60; PULSE 62; RESP 16; TEMP 36.9; O2SAT 100
[2023-06-09 02:59] LABS: CT PCR NOT DETECTED (Not Detect.); NG PCR NOT DETECTED (Not Detect.)
[2023-06-09 03:57] VITALS: BP 109/53; PULSE 76; RESP 16; O2SAT 98
[2023-06-10 15:12] LABS: BV Int Neg Control Negative (Negative); BV Int Pos Control Positive (Positive)
== END 2023-06-09 03:59 | disposition home or self-care (01) ==
PROVIDERS: Physician Assistant; Emergency Provider Internal Medicine; PCP Internal Medicine
DX: N93.9 Abnormal uterine and vaginal bleeding, unspecified (principal); I10 Essential (primary) hypertension; J44.9 Chronic obstructive pulmonary disease, unspecified; Z87.442 Personal history of urinary calculi
CPT/HCPCS: 0353U; 36415; 76830; 76856; 80048; 80076; 81001; 81003; 83690; 84702; 85025; 86850; 86900; 86901; 87086; 87480; 87510; 87660; 93975; 96360; 96361; 99284

== ENCOUNTER 2023-06-12 14:47 | Outpatient (AMB) | payer OTHER, SELFPAY ==
--- NOTE | 2023-06-12 14:51 | MHC.PC.OV ---
Vital Signs 06/12/23 14:53 Height 5 ft 1 in Weight 211 lb 8 oz BMI 40.0 BP 130/76 Blood Pressure Location Lt brachial Position Sitting Pulse 68 Pulse Source Pulse Oximeter Pulse Oximetry (%) 96 Oxygen Delivery Method Room Air Intake Visit Reasons: pe Intake Note: Patient is here today for a physical. Correctional Counselor Required: No Rn Orthopaedic: Not Required per policy Accompanied by: Self / Same As Patient Allergies amoxicillin [AMOXICILLIN] Allergy (Intermediate, Verified 06/12/23 15:48) NAUSEA & VOMITING, stomach pain, vomiting, stomach upset topiramate [From TOPAMAX] Allergy (Intermediate, Verified 06/12/23 15:48) TREMORS, nausea and vomiting latex [LATEX] Allergy (Mild, Verified 06/12/23 15:48) RASH medroxyprogesterone [From PROVERA] Allergy (Mild, Verified 06/12/23 15:48) RASH lactose Allergy (Verified 06/12/23 15:48) bloating , diarrhea Medication List - Last Reconciled 06/12/23 by Jarrod Sherman MD albuterol sulfate 90 mcg/actuation 2 inhalations inhalation Q4-6H PRN albuterol sulfate 2.5 mg (3 mL) inhalation Q6H albuterol sulfate 90 mcg/actuation (Ventolin HFA) 2 puffs inhalation Q4-6H PRN amlodipine (Norvasc) 5 mg PO DAILY [BEDSIDE COMMODE As directed] benzonatate 100 mg PO BID PRN bupropion HCl 150 mg PO QAM cyclobenzaprine 10 mg PO TID PRN Dexilant (dexlansoprazole) 60 mg PO DAILY NS diclofenac sodium 1% (Arthritis Pain (diclofenac)) 2 grams topical QID PRN ferrous sulfate (Feosol) 325 mg PO DAILY 30 days fluticasone propion-salmeterol 230-21 mcg/actuation (Advair HFA) 2 puffs inhalation Q12H FreeStyle Lite Strips (blood sugar diagnostic) 4 strips miscellaneous QID 30 days NS [FRONT-WHEELED WALKER As directed] gabapentin 400 mg PO TID 30 days hydroxyzine HCl 1 to 2 tablets 3 times a day as needed for anxiety; 30 days ibuprofen (IBU) 800 mg PO Q8H PRN 30 days ketorolac 10 mg PO TID PRN labetalol 100 mg PO BID 90 days lancets (FreeStyle Lancets) 4 times/day lidocaine 5% 1 patch topical DAILY linaclotide (Linzess) 290 mcg PO QAM 30 days cvpfnr-ccvukkaj-mlsxkox 36,000-114,000- 180,000 unit (Creon) 1 cap PO QID metoclopramide HCl (Reglan) 5 mg PO QIDACHS naproxen 500 mg PO BID PRN 7 days nebulizers (Compact Compressor Nebulizer) As directed ondansetron 4 mg PO Q6H PRN oxycodone 5 mg PO Q6H PRN sertraline 100 mg PO DAILY spironolactone 50 mg PO BID [TUB SEAT with BACK As directed] Tobacco use date assessed: 06/12/23 Dental Screening Dental Screen Date: 06/12/23 Did you have a dental visit in the last 12 months?: Yes Did you have a dental problem in the last 6 months where you did not have access to dental care?: No Was dental information given to patient?: Patient has dentist HPI pe HPI Details Patient comes in today for her annual physical examination States that she feels okay Is scheduled for her iron infusions on 06/28/23 and 07/05/23 - is seeing hematology for continuing management of her anemia as she is unable to tolerate oral iron supplements She denies any headaches or dizziness Denies any chest pains, no SOB No nausea/vomiting, no abdominal pain No change in bowel habits noted She denies any acute urinary symptoms Had her follow up labs done a few days ago - to discuss her results Sees metal grinder at [facility] for her annual pap smear and 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, which were both done last month - she is scheduled for some Bx next month Had mammogram done a few months ago in 02/2023- normal [facility] Medical History (Updated 06/12/23 @ 15:50 by Jarrod Sherman MD) Annual physical exam Benign essential hypertension Shortness of breath Thoracic back pain Intermittent chest pain Left ear pain Neck pain Depression Atypical chest pain Tension headache Myofascial pain Sacroiliac joint pain Bilateral primary osteoarthritis of hip Polyuria Right-sided chest pain Post depression BMI 39.0-39.9,adult Pain in left lopez Hematoma of left lower extremity Trigger finger of left thumb Trigger finger of right thumb Insomnia Morbid obesity with BMI of 40.0-44.9, adult Smoker Carpal tunnel syndrome, bilateral Left leg swelling Personal history of gestational diabetes Wrist pain Obesity (BMI 30-39.9) Second trimester Supervision of other high risk , antepartum Supervision of other normal PCOS (polycystic ovarian syndrome) control counseling Migraines Vulvar cyst Lower back pain Anxiety Hyperlipemia Fibromyalgia Rheumatoid arthritis Surgical History S/P laparoscopic cholecystectomy (03/06/23) H/O tubal ligation History of hip replacement, total History of esophagogastroduodenoscopy (EGD) History of removal of cyst History of tonsillectomy and adenoidectomy Family History Father Medical history unknown Mother Diabetes Hypertension Maternal Aunt Breast cancer Ovarian cancer Mental health disorder Maternal Grandmother Diabetes Hypertension Social History Household Members: Spouse and Children Housing: Condominium Alcohol intake: never Patient Tobacco Use Status: Former Tobacco user Quit Date: 2.5 yrs e-Cigarette/Vaping Use: Never Used Second Hand Smoke Exposure: No Substance Use Type: Marijuana service: No Current occupational status: disabled Sexual orientation: Straight/Heterosexual Gender identity: Female Cognitive needs: No Hearing needs: No Vision needs: Yes Female Reproductive History Menstrual Age of Menarche: 8 Questionnaire Thrive Questionnaire Date Thrive assessed: 04/17/23 STEPHANIE-7 AMB Questionnaire STEPHANIE-7 Date STEPHANIE - 7 assessed: 04/17/23 Source: Developed by Drs. Cuco Richards, Itzel Ordaz, Eliud Ladd and colleagues, with an educational lino from [employer]. Review of Systems Const Denies chills, Denies fatigue, Denies fever(s), Denies headache(s) and Denies malaise Eyes Denies blurry vision, Denies change in vision, Denies irritation and Denies itchy eyes ENT Denies dysphagia, Denies dizziness, Denies otalgia, Denies headache(s), Denies nasal congestion, Denies neck pain, Denies odynophagia, Denies sinus pain and Denies sore throat Card Denies chest pain, Denies rapid heart rate, Denies irregular heart rhythm, Denies palpitations and Denies dyspnea Resp Denies chest congestion, Denies cough, Denies dyspnea and Denies wheezing GI Denies abdominal pain, Denies bloating, Denies constipation, Denies dysphagia, Denies heartburn, Denies diarrhea, Denies nausea, Denies odynophagia and Denies vomiting Denies hematuria, Denies urinary frequency, Denies dysuria, Denies urinary incontinence and Denies urinary urgency Musc Reports back pain (on and off, over the lower back), Reports arthralgias (over both hips - chronic), Denies joint swelling, Denies muscle weakness and Denies neck pain Skin/Breast Denies breast pain, Denies breast mass, Denies change in pigmentation, Denies lesions, Denies rash and Denies unusual bruising Neuro Denies dizziness, Denies headache(s) and Denies paresthesias Psych Denies anxiety and Denies depression Endo Denies fatigue and Denies palpitations Teddy/Lymph Denies easy bruising Aller/Immun Denies itchy eyes and Denies wheezing Physical exam (Primary Care) Vital Signs: Last Vital Signs Pulse 68 06/12/23 14:53 BP 130/76 06/12/23 14:53 Pulse Ox 96 06/12/23 14:53 Oxygen Delivery Method Room Air 06/12/23 14:53 BMI result Body Mass Index 40.0 Tobacco/Smoking Status: Tobacco use Status Tobacco use date assessed 06/12/23 06/12/23 15:11 Patient Tobacco Use Status Former Tobacco user 06/12/23 15:11 Tobacco use type 02/14/23 14:05 e-Cigarette/Vaping Use Never Used 06/12/23 15:11 Thrive Assessment: Date of Thrive Assessment Date Thrive assessed 04/17/23 06/12/23 15:11 Const General: no acute distress, alert and awake Orientation/consciousness: patient oriented x3 HENMT Head: Yes normocephalic and Yes atraumatic Ears: external ears normal, TM's normal bilaterally and EAC's normal General nose exam: No nasal discharge present Face and sinus: Yes normal facial exam and Yes sinuses nontender Teeth and gingiva: dentition normal Throat: Yes posterior oropharynx normal and Yes tonsils normal (no TP congestion) Eyes Eyelids: Yes eyelids normal Conjunctivae: conjunctivae normal Pupils: Equal, round and reactive pupils present EOM: EOMs intact bilaterally Neck Neck: Yes no lymphadenopathy and Yes supple Thyroid: Thyroid normal Resp Auscultation: clear to auscultation bilaterally, no rales and no wheezes Cardio Rate: regular rate Rhythm: regular rhythm Heart sounds: no murmurs GI Palpation (GI): Soft to palpation, nontender and No hepatosplenomegaly present Auscultation: normal bowel sounds General: Yes no CVA tenderness Back/Spine/Pelvis Back: no CVA tenderness Thoracic/Lumbar Spine: lumbar spinal tenderness (mild) Skin Lesions: no lesions Rashes: no rashes Neuro General: patient oriented x3, moves all extremities, no focal motor deficits and CN's II-XI intact bilaterally Cranial nerves: Yes Equal, round and reactive pupils present Cognition (Neuro): normal cognition Gait exam (Neuro): Normal gait present Extrem General: Yes no clubbing, cyanosis or edema Results Reviewed Results Reviewed: Laboratory Tests 06/08/23 06/08/23 06/08/23 22:21 22:22 22:23 WBC 7.8 Hgb 9.6 L Hct 31.2 L Plt Count 373 Sodium 141 Potassium 3.8 Creatinine 0.70 Estimated GFR > 60 Random Glucose 102 Calcium 8.7 D AST 38 H ALT 109 H Albumin 3.9 Lipase 70 Ur Specific [place] >= 1.030 H Urine Protein 100 (2+) H Urine Glucose (UA) Negative Urine Blood Large (3+) H Assessment and Plan Assessment & Plan (1) Annual physical exam: Code(s): Z00.00 - Encounter for general adult medical examination without abnormal findings Plan: Results of her labs done a few days ago reviewed and discussed with patient She is up-to-date with her cervical cancer screening and gynecology exam - goes to OB-Gynecology in [place] and is currently being worked up and managed for her vaginal bleeding States that she is scheduled to have some kind of Bx done next month to check for cancer She had a mammogram done back in February 2023 for some breast symptoms - mammogram came out normal and she will not need routine mammography again unless indicated until she is 39 yrs old (2) Elevated LFTs: Code(s): R79.89 - Other specified abnormal findings of blood chemistry Plan: Is advised that her LFTs were elevated, especially her ALT, on her recent labs Patient denies drinking alcohol and is currently not on any medications that would cause her LFTs to increase this much Advised that at this point, the most likely cause of her LFTs going up would be her weight - steatohepatitis Will send her for abdominal US for further evaluation Will recheck her LFTs and labs in 4 months for follow up (3) Cholelithiasis with chronic cholecystitis: Code(s): K80.10 - Calculus of gallbladder with chronic cholecystitis without obstruction Qualifiers: Biliary obstruction: without biliary obstruction Cholelithiasis location: gallbladder Qualified Code(s): K80.10 - Calculus of gallbladder with chronic cholecystitis without obstruction Plan: S/P laparoscopic cholecystectomy under general anesthesia with Dr. Stanley on 03/06/2023 Patient states that she is still experiencing on and off abdominal pains but nothing like she had before her GB surgery Follow up with surgery and GI as scheduled or PRN (4) Benign essential hypertension: Code(s): I10 - Essential (primary) hypertension Plan: Reinforced low-sodium diet - goal is systolic BP of 120 mm or less Continue Labetalol 100 mg BID and Amlodipine 5 mg QD; is also on Spironolactone 50 mg BID - this helps with his BP as well (5) Bilateral primary osteoarthritis of hip: Code(s): M16.0 - Bilateral primary osteoarthritis of hip Plan: Follow up with [facility] as scheduled (6) GERD (gastroesophageal reflux disease): Code(s): K21.9 - Gastro-esophageal reflux disease without esophagitis Qualifiers: Esophagitis presence: without esophagitis Qualified Code(s): K21.9 - Gastro-esophageal reflux disease without esophagitis Plan: Dietary restrictions reinforced Continue Dexlansoprazole 60 mg QD (7) Anemia: Code(s): D64.9 - Anemia, unspecified Qualifiers: Anemia type: unspecified type Qualified Code(s): D64.9 - Anemia, unspecified Plan: Continue IV Iron infusions PRN Follow up with hematology as scheduled Will recheck CBC and iron studies in 3 months for follow up (8) Migraine: Code(s): G43.909 - Migraine, unspecified, not intractable, without status migrainosus Qualifiers: Intractability: not intractable Migraine type: unspecified Status migrainosus presence: without status migrainosus Qualified Code(s): G43.909 - Migraine, unspecified, not intractable, without status migrainosus Plan: Continue Acetaminophen 325 mg every 4 to 6 hours as needed Reinforced avoidance of migraine triggers Will need to consider prophylactic Tx again if her headaches persist or get worse (9) Fibromyalgia: Code(s): M79.7 - Fibromyalgia Plan: Encouraged again regular exercise and physical activity to help manage her fibromyalgia symptoms Continue Gabapentin 400 mg TID (10) Insomnia: Code(s): G47.00 - Insomnia, unspecified Qualifiers: Insomnia type: unspecified Qualified Code(s): G47.00 - Insomnia, unspecified Plan: Sleep hygiene reinforced Continue OTC Unisom 25 mg Q HS PRN (11) Anxiety: Code(s): F41.9 - Anxiety disorder, unspecified Plan: Is on Bupropion and Sertraline; continue Hydroxyzine 25 mg 1 to 2 tablets TID PRN (12) Depression: Code(s): F32.A - Depression, unspecified Qualifiers: Active/Remission status: currently active Depression Type: major depressive disorder Major depression episode severity: unspecified Major depression recurrence: recurrent Qualified Code(s): F33.9 - Major depressive disorder, recurrent, unspecified Plan: Continue Sertraline 100 mg QD and Bupropion XL 150 mg Q AM Follow up with psychiatry as scheduled (13) Smoker: Comment: Stop smoking cigarettes 2019 Code(s): F17.200 - Nicotine dependence, unspecified, uncomplicated Plan: Counseled again on smoking cessation (14) Morbid obesity with BMI of 40.0-44.9, adult: Code(s): E66.01 - Morbid (severe) obesity due to excess calories; Z68.41 - Body mass index [BMI] 40.0-44.9, adult Plan: Reinforced diet/exercise as tolerated/lose weight Plan Follow up in 4 months Orders: Orders US abdomen complete 06/12/23 R79.89 - Other specified abnormal findings of blood chemistry Lipid Panel 4 Months E78.00 - Pure hypercholesterolemia, unspecified Comprehensive Niotaze. Panel Fast 4 Months E78.00 - Pure hypercholesterolemia, unspecified Liver Fibrosis Pnl 4 Months R79.89 - Other specified abnormal findings of blood chemistry Medications: Refilled lidocaine 5% leave on most painful area for up to 12 hrs 1 patch topical DAILY 15 ea 0RF Coding Level of Care Code Est Pt Prev Care 18-39y(44990) Diagnoses Annual physical exam Z00.00 Elevated LFTs R79.89 Calculus of gallbladder with chronic cholecystitis without obstruction K80.10 Biliary obstruction: without biliary obstruction Cholelithiasis location: gallbladder Benign essential hypertension I10 Bilateral primary osteoarthritis of hip M16.0 Gastroesophageal reflux disease without esophagitis K21.9 Esophagitis presence: without esophagitis Anemia, unspecified type D64.9 Anemia type: unspecified type Migraine without status migrainosus, not intractable, unspecified migraine type G43.909 Intractability: not intractable Migraine type: unspecified Status migrainosus presence: without status migrainosus Fibromyalgia M79.7 Insomnia, unspecified type G47.00 Insomnia type: unspecified Anxiety F41.9 Episode of recurrent major depressive disorder, unspecified depression episode severity F33.9 Active/Remission status: currently active Depression Type: major depressive disorder Major depression episode severity: unspecified Major depression recurrence: recurrent Smoker F17.200 Morbid obesity with BMI of 40.0-44.9, adult E66.01; Z68.41
[2023-06-12 14:53] VITALS: BP 130/76; PULSE 68; O2SAT 96; BMI 40.0
== END 2023-06-12 15:48 | disposition home or self-care (01) ==
PROVIDERS: PCP Internal Medicine; Visit Provider Internal Medicine
DX: Z00.00 Encounter for general adult medical examination without abnormal findings (principal); F33.9 Major depressive disorder, recurrent, unspecified; E66.01 Morbid (severe) obesity due to excess calories; Z68.41 Body mass index [BMI] 40.0-44.9, adult; R79.89 Other specified abnormal findings of blood chemistry; K80.10 Calculus of gallbladder with chronic cholecystitis without obstruction; I10 Essential (primary) hypertension; M16.0 Bilateral primary osteoarthritis of hip; K21.9 Gastro-esophageal reflux disease without esophagitis; D64.9 Anemia, unspecified; G43.909 Migraine, unspecified, not intractable, without status migrainosus; M79.7 Fibromyalgia
CPT/HCPCS: 99395

== ENCOUNTER 2023-07-05 13:08 | Emergency (ER) | payer OTHER, SELFPAY ==
--- NOTE | 2023-07-05 13:10 | ECG_ITS ---
Test Reason : chest pain Blood Pressure : / mmHG Vent. Rate : 064 BPM Atrial Rate : 064 BPM P-R Int : 134 ms QRS Dur : 090 ms QT Int : 378 ms P-R-T Axes : 023 033 010 degrees QTc Int : 389 ms Normal sinus rhythm Normal ECG When compared with ECG of 23-MAY-2023 14:11, No significant change was found Referred By: Charlotte Edwards Electronically Signed By:TRANG CHAVARRIA
[2023-07-05 13:46] VITALS: BP 155/75; PULSE 63; RESP 18; TEMP 36.5; O2SAT 99; BMI 39.1
--- NOTE | 2023-07-05 13:46 | ED_ITS ---
HPI - General Adult General Chief complaint: Vaginal Bleeding Stated complaint: civil preparedness coordinator sent, dizzy/ chest pain/ headache, bleedin Related Data Home Medications ?Medication ?Instructions ?Recorded ?Confirmed sertraline 100 mg tablet 100 mg PO DAILY 08/22/20 04/03/24 acetaminophen 325 mg tablet 650 mg PO Q6H PRN Pain 12/29/23 04/03/24 (Tylenol) albuterol sulfate 90 mcg/actuation 2 inh inhalation Q6H PRN shortness 12/29/23 04/03/24 breath activated powder inhaler of breath or wheezing bupropion HCl 300 mg 24 hr tablet, 300 mg PO DAILY 12/29/23 04/03/24 extended release dexlansoprazole 60 mg 60 mg PO DAILY@0630 12/29/23 04/03/24 capsule,biphase delayed release (Dexilant) hydroxyzine HCl 25 mg tablet 25 mg PO DAILY anxiety 12/29/23 04/03/24 linaclotide 290 mcg capsule 290 mcg PO DAILY 12/29/23 04/03/24 (Linzess) zaelzp-uslggyhn-ojjpvmc 1 cap PO TIDWM 12/29/23 04/03/24 36,000-114,000-180,000 unit capsule,delay rel (Creon) lorazepam 1 mg tablet 1 mg PO DAILY PRN Anxiety 12/29/23 04/03/24 metoclopramide HCl 5 mg tablet 5 mg PO BID 12/29/23 04/03/24 (Reglan) Previous Rx's ?Medication ?Instructions ?Recorded lancets 28 gauge (FreeStyle #100 ea 06/27/20 Lancets) BEDSIDE COMMODE #1 ea 05/14/22 FRONT-WHEELED WALKER #1 ea 05/14/22 TUB SEAT with BACK #1 ea 05/14/22 gabapentin 400 mg capsule 400 mg PO TID 30 days #90 caps 10/17/22 nebulizers (Compact Compressor #1 ea 02/28/23 Nebulizer) pyridoxine (vitamin B6) 100 mg 100 mg PO DAILY 90 days #90 tabs 07/09/23 tablet labetalol 100 mg tablet 100 mg PO BID 90 days #180 tabs 09/16/23 ibuprofen 800 mg tablet (IBU) 800 mg PO Q8H PRN pain/headaches 03/04/24 30 days #90 tabs albuterol sulfate 2.5 mg/3 mL 2.5 mg (3 mL) inhalation Q6H PRN 03/17/24 (0.083 %) solution for nebulization Shortness Of Breath Or Wheezing #180 mL budesonide-formoterol HFA 160 2 puff inhalation Q12H #10.2 grams 03/17/24 mcg-4.5 mcg/actuation aerosol inhaler (Symbicort) montelukast 10 mg tablet 10 mg PO BEDTIME #30 tabs 04/08/24 (Singulair) Allergies Allergy/AdvReac Type Severity Reaction Status Date / Time amoxicillin [AMOXICILLIN] Allergy Intermediate NAUSEA & Verified 04/08/24 14:01 VOMITING, stomach pain, vomiting, stomach upset topiramate [From TOPAMAX] Allergy Intermediate TREMORS, Verified 04/08/24 14:01 nausea and vomiting latex [LATEX] Allergy Mild RASH Verified 04/08/24 14:01 medroxyprogesterone Allergy Mild RASH Verified 04/08/24 14:01 [From PROVERA] lactose Allergy bloating , Verified 04/08/24 14:01 diarrhea PMFSH Past Medical History Onset Date is defined in the Problem List Problems that require an onset date and time if occurred within 24 hrs of arrival to the ED Aortic Dissection and Rupture; Neurologic impairment; Cardiopulmonary Arrest; Endotracheal Intubation; Insertion or Replacement of Mechanical Circulatory Assist Device Medical History Obesity (BMI 30-39.9) Anxiety Encounter for preoperative pulmonary examination Benign essential hypertension Gallstones Thoracic back pain Depression Tension headache Myofascial pain Sacroiliac joint pain Bilateral primary osteoarthritis of hip Post depression BMI 39.0-39.9,adult Trigger finger of left thumb Trigger finger of right thumb Insomnia Morbid obesity with BMI of 40.0-44.9, adult Smoker Annual physical exam Carpal tunnel syndrome, bilateral Personal history of gestational diabetes Supervision of other high risk , antepartum Supervision of other normal PCOS (polycystic ovarian syndrome) control counseling Migraines Vulvar cyst Anxiety Hyperlipemia Fibromyalgia Rheumatoid arthritis Surgical History S/P laparoscopic cholecystectomy (03/06/23) H/O tubal ligation History of hip replacement, total History of esophagogastroduodenoscopy (EGD) History of removal of cyst History of tonsillectomy and adenoidectomy Family History Family History Father Medical history unknown Mother Diabetes Hypertension Maternal Aunt Breast cancer Ovarian cancer Mental health disorder Maternal Grandmother Diabetes Hypertension Social History Social History Household Members: Significant Other and Children Housing: House Alcohol intake: current Alcohol intake frequency: holidays/special occasions only Patient Tobacco Use Status: Former Tobacco user Tobacco use type: Cigarette e-Cigarette/Vaping Use: Never Used Second Hand Smoke Exposure: No Substance Use Type: Marijuana service: No Current occupational status: disabled Sexual orientation: Straight/Heterosexual Gender identity: Female Cognitive needs: No Hearing needs: No Vision needs: Yes Physical Exam ED Vital Signs: BMI result Body Mass Index 39.1 Course Course Course Narrative: RME-13:46pm - 32yoF presenting with vaginal bleeding since AprJun 13 then started again x 1 week. Utilizing 3 pads a day with clots. She reports now she feels really weak, dizziness, fatigue, headache, CP, SOB all started yesterday. Reports she spoke to her OB and OB. OB sent her here for further evaluation treatment. Tried to have her first iron transfusion on Jun 28, 2023 and had an allergic reaction to it. Has not had blood transfusion in the past. Last 2 years ago. Plan: Labs, EKG, chest x-ray ordered. Patient is sent back to the waiting room to be evaluated in the ED. Discharge Plan Discharge Clinical Impression: Vaginal bleeding Patient Disposition: Left W/O Completing Treatment Prescriptions: No Action (DME) FRONT-WHEELED WALKER See Rx Instructions .Route .MEDSUPPLY Qty: 1 0RF Rx Instructions: As directed (DME) TUB SEAT with BACK See Rx Instructions .Route .MEDSUPPLY Qty: 1 0RF Rx Instructions: As directed (DME) BEDSIDE COMMODE See Rx Instructions .Route .MEDSUPPLY Qty: 1 0RF Rx Instructions: As directed gabapentin 400 mg capsule 400 mg PO TID 30 Days Qty: 90 3RF Rx Instructions: 1 capsule Orally Three times a day labetalol 100 mg tablet 100 mg PO BID 90 Days Qty: 180 1RF ibuprofen [IBU] 800 mg tablet 800 mg PO Q8H PRN (Reason: pain/headaches) 30 Days Qty: 90 0RF Rx Instructions: Take with food metoclopramide HCl [Reglan] 5 mg tablet 5 mg PO BID hydroxyzine HCl 25 mg tablet 25 mg PO DAILY lorazepam 1 mg tablet 1 mg PO DAILY PRN (Reason: Anxiety) bupropion HCl 300 mg tablet extended release 24 hr 300 mg PO DAILY dexlansoprazole [Dexilant] 60 mg capsule,biphase delayed releas 60 mg PO DAILY@0630 Linzess 290 mcg capsule 290 mcg PO DAILY Creon 36,000-114,000- 180,000 unit capsule,delayed release(DR/EC) 1 cap PO TIDWM acetaminophen [Tylenol] 325 mg Tablet 650 mg PO Q6H PRN (Reason: Pain) albuterol sulfate 90 mcg/actuation aerosol powdr breath activated 2 inh inhalation Q6H PRN (Reason: shortness of breath or wheezing) sertraline 100 mg tablet 100 mg PO DAILY (DME) nebulizers [Compact Compressor Nebulizer] Misc See Rx Instructions .Route Qty: 1 0RF Rx Instructions: As directed (DME) lancets [FreeStyle Lancets] 28 gauge misc See Rx Instructions .ROUTE .MEDSUPPLY Qty: 100 1RF Rx Instructions: 4 times/day pyridoxine (vitamin B6) 100 mg tablet 100 mg PO DAILY 90 Days Qty: 90 1RF budesonide-formoterol [Symbicort] 160-4.5 mcg/actuation HFA aerosol inhaler 2 puff inhalation Q12H Qty: 10.2 3RF albuterol sulfate 2.5 mg /3 mL (0.083 %) solution for nebulization 2.5 mg inhalation Q6H PRN (Reason: Shortness Of Breath Or Wheezing) Qty: 180 3RF montelukast [Singulair] 10 mg tablet 10 mg PO BEDTIME Qty: 30 3RF Interventions: LWBS Worksheet Last Done: 07/05/23 17:37 Discharge Date/Time: 07/05/23 17:37
== END 2023-07-05 17:37 | disposition left against medical advice (07) ==
PROVIDERS: Emergency Provider Emergency Medicine; PCP Internal Medicine
DX: N93.9 Abnormal uterine and vaginal bleeding, unspecified (principal); R42 Dizziness and giddiness
CPT/HCPCS: 93005; 99283

== ENCOUNTER → 2023-07-05 13:10 | Outpatient (BNV) | payer OTHER, SELFPAY | PROVIDERS: Emergency Provider Emergency Medicine; PCP Internal Medicine; Visit Provider Internal Medicine | DX: R07.9 Chest pain, unspecified (principal) | CPT/HCPCS: 93010 ==

== ENCOUNTER 2023-07-08 10:03 | Outpatient (REF) | payer OTHER, SELFPAY ==
--- NOTE | ~2023-07-08 | US_ITS ---
EXAMINATION: US ABDOMEN COMPLETE CLINICAL INFORMATION: Other specified abnormal findings of blood chemistry. COMPARISON: CT scan abdomen and pelvis 05/30/2023 TECHNIQUE: Real-time imaging of the abdominal viscera. FINDINGS: PANCREAS: The pancreas is mostly obscured by bowel gas. ABDOMINAL AORTA: The proximal, mid, and distal segments are normal in caliber. INFERIOR VENA CAVA: Visualized portions are normal. LIVER: The liver is normal in size. The liver contour is normal. There is mild diffuse increased liver parenchymal echogenicity, consistent with mild hepatic steatosis. No focal hepatic lesion. There is no intrahepatic biliary duct dilatation seen. GALLBLADDER: Surgically absent. COMMON BILE DUCT: Normal in caliber measuring 0.3 cm in diameter. RIGHT KIDNEY: 0.3 x 0.2 x 0.2 cm nonobstructing calculus is seen in the lower pole No hydronephrosis. No focal parenchymal lesions. The kidney measures 12.0 cm in maximum dimension. LEFT KIDNEY: 0.4 x 0.3 x 0.4 cm lower pole and 0.5 x 0.3 x 0.4 cm mid renal nonobstructing calculi are seen. No hydronephrosis. No focal parenchymal lesions. The kidney measures 12.2 cm in maximum dimension. SPLEEN: Normal. The spleen measures 9.1 cm in maximum dimension. FREE FLUID: None. US/US abdomen complete IMPRESSION: 1. Mild hepatic steatosis. 2. Prior cholecystectomy. 3. Bilateral nonobstructing renal calculi.
== END 2023-07-08 10:04 | disposition home or self-care (01) ==
LOC: HO.US 10:03
PROVIDERS: PCP Internal Medicine; Visit Provider Urology
DX: N20.0 Calculus of kidney (principal); R79.89 Other specified abnormal findings of blood chemistry
CPT/HCPCS: 76700

== ENCOUNTER 2023-07-09 13:34 | Outpatient (AMB) | payer OTHER, SELFPAY ==
--- NOTE | 2023-07-09 13:58 | MHC.OFFVIS ---
Intake Intake Visit Reasons: 6M CT (SET) Intake Note: Patient is Present for Follow Up Ultrasound Urology Medication: None Antibiotic Allergies: Amoxicillin, Blood Thinners: None Patient states that she has been having some on and off pain on her sides. She also complaints that she has been having a lot of blood unsure if its from her period or urine. Allergies amoxicillin [AMOXICILLIN] Allergy (Intermediate, Verified 07/09/23 14:05) NAUSEA & VOMITING, stomach pain, vomiting, stomach upset topiramate [From TOPAMAX] Allergy (Intermediate, Verified 07/09/23 14:05) TREMORS, nausea and vomiting latex [LATEX] Allergy (Mild, Verified 07/09/23 14:05) RASH medroxyprogesterone [From PROVERA] Allergy (Mild, Verified 07/09/23 14:05) RASH lactose Allergy (Verified 07/09/23 14:05) bloating , diarrhea HPI HPI Comments History of Present Illness Details Gabriella is a pleasant female. She is a patient Dr. Sherman. She is seen for the following urologic conditions - nephrolithiasis Discussed imaging results Small stones bilateral 6 month review Vitamin B6 Nephrolithiasis Initial presentation emergency room 10/07 Aunt has stones Imaging - 10/07 CT multiple 4mm stones bilateral - 01/06 ultrasound minimal stone - 07/10 renal ultrasound bilateral 3 mm stones Intervention - 10/07 right ureteroscopy with laser lithotripsy Stone composition - 10/07 calcium oxalate dihydrate with brushing Therapeutic plan - surveillance imaging - encourage fluids [facility] History (Updated 06/12/23 @ 15:50 by Jarrod Sherman MD) Annual physical exam Benign essential hypertension Shortness of breath Thoracic back pain Intermittent chest pain Left ear pain Neck pain Depression Atypical chest pain Tension headache Myofascial pain Sacroiliac joint pain Bilateral primary osteoarthritis of hip Polyuria Right-sided chest pain Post depression BMI 39.0-39.9,adult Pain in left lopez Hematoma of left lower extremity Trigger finger of left thumb Trigger finger of right thumb Insomnia Morbid obesity with BMI of 40.0-44.9, adult Smoker Carpal tunnel syndrome, bilateral Left leg swelling Personal history of gestational diabetes Wrist pain Obesity (BMI 30-39.9) Second trimester Supervision of other high risk , antepartum Supervision of other normal PCOS (polycystic ovarian syndrome) control counseling Migraines Vulvar cyst Lower back pain Anxiety Hyperlipemia Fibromyalgia Rheumatoid arthritis Surgical History S/P laparoscopic cholecystectomy (03/06/23) H/O tubal ligation History of hip replacement, total History of esophagogastroduodenoscopy (EGD) History of removal of cyst History of tonsillectomy and adenoidectomy Family History Father Medical history unknown Mother Diabetes Hypertension Maternal Aunt Breast cancer Ovarian cancer Mental health disorder Maternal Grandmother Diabetes Hypertension Social History Household Members: Spouse and Children Housing: Condominium Alcohol intake: never Patient Tobacco Use Status: Former Tobacco user Quit Date: 2.5 yrs e-Cigarette/Vaping Use: Never Used Second Hand Smoke Exposure: No Substance Use Type: Marijuana service: No Current occupational status: disabled Sexual orientation: Straight/Heterosexual Gender identity: Female Cognitive needs: No Hearing needs: No Vision needs: Yes Female Reproductive History Menstrual Age of Menarche: 8 Review of Systems Const Denies chills and Denies fever(s) Card Reports no additional complaints and Denies syncope Resp Denies cough GI Denies abdominal pain and Denies heartburn Reports as per HPI and Denies change in libido Neuro Denies syncope Psych Denies change in libido Endo Denies change in libido Physical Exam Const General: cooperative, healthy appearing, comfortable and no acute distress Orientation/consciousness: patient oriented x3 HEENT Face and sinus: Yes normal facial exam Mouth: moist mucous membranes Neck Neck: Yes normal visual inspection, Yes full ROM and Yes trachea midline Chest Chest palpation & inspection: normal inspection of the chest Resp Effort & Inspection: normal respiratory effort, able to speak in complete sentences and no respiratory distress GI Inspection: Yes normal to inspection Back/Spine/Pelvis Cervical Spine: normal cervical lordosis Thoracic/Lumbar Spine: thoracic and lumbar spine normal to inspection Skin General skin exam: no rashes or lesions noted Neuro General: patient oriented x3, gait normal, tone normal and moves all extremities Extrem General: Yes normal to inspection and Yes capillary refill normal Results AMB Urinalysis, Automated UA Leukoctes 70 Antonino/uL Last Edit by EMILY Foreman on 07/09/23 14:11 UA Nitrite Negative Last Edit by Arlenebrittney Scott, A on 07/09/23 14:11 UA Urobilinogen 1 mg/dL Last Edit by Arlenebrittney Scott, A on 07/09/23 14:11 UA Protein 100 mg/dL Last Edit by Arlene Scott, RMA on 07/09/23 14:11 UA pH 6.0 Last Edit by Arlene Scott, A on 07/09/23 14:11 UA Blood 200 Elliott/uL Last Edit by Arlenelucita Scott, A on 07/09/23 14:11 UA Specific [place] 1.030 Last Edit by Arlene Scott, A on 07/09/23 14:11 UA Ketone Negative Last Edit by Arlenelucita Scott, A on 07/09/23 14:11 UA Bilirubin 0 mg/dL Last Edit by Arlene Scott, A on 07/09/23 14:11 UA Glucose 0 mg/dL Last Edit by Arlene Scott, A on 07/09/23 14:11 Assessment & Plan Assessment & Plan (1) Calculus of kidney: Code(s): N20.0 - Calculus of kidney Plan Six-month follow-up renal with vitamin B6 Orders: Orders AMB Urinalysis Automated Today Z13.9 - Encounter for screening, unspecified US renal BI 6 Months N20.0 - Calculus of kidney Medications: New pyridoxine (vitamin B6) 100 mg PO DAILY 90 tabs 1RF 90 days N20.0 - Calculus of kidney Patient Instructions: Imaging studies, laboratory and physical exam results were discussed and reviewed in detail. No major barriers to patient understanding were identified. An opportunity to ask questions regarding the treatment plan was provided. All questions were answered. The patient expressed understanding and agreement with the above treatment plan. The patient is aware they should contact our office by phone for worsening of their current condition or the appearance of new urologic symptoms. Compliance is encouraged with any medications and followup testing that is ordered. It is a privilege to participate in the urologic care of your patient. If you have any questions or concerns regarding treatment for the above conditions, or other urologic issues, please do not hesitate to contact me. The office telephone contact is [phone]. This note is constructed using voice recognition software. While every effort has been made to ensure accuracy clinical product manager errors may have been included. Yours sincerely, Dr Jayson Rausch MD, [facility] - Urology Providers of Expert, Compassionate Care for the Genitourinary System Coding Level of Care Code Est Pt Level 4 (21801) Diagnoses Calculus of kidney N20.0
== END 2023-07-09 14:17 | disposition home or self-care (01) ==
PROVIDERS: PCP Internal Medicine; Visit Provider Urology
DX: N20.0 Calculus of kidney (principal); Z13.9 Encounter for screening, unspecified
CPT/HCPCS: 99214

== ENCOUNTER → 2023-07-09 13:34 | Outpatient (BNVA) | payer OTHER, SELFPAY | PROVIDERS: PCP Internal Medicine; Visit Provider Urology | DX: N20.0 Calculus of kidney (principal) | CPT/HCPCS: 81003; 99212 ==

== ENCOUNTER 2023-07-10 08:29 | Emergency (ER) | payer OTHER, SELFPAY ==
--- NOTE | ~2023-07-10 | CT_ITS ---
EXAMINATION: CT ABDOMEN AND PELVIS WITH CONTRAST CLINICAL INFORMATION: Right-sided abdominal pain COMPARISON: Ultrasound abdomen 07/08/2023 TECHNIQUE: Multidetector volumetric images were obtained from the superior aspect of the liver through the pubic symphysis following administration 85 mL of Omnipaque 350 intravenous contrast. Sagittal and coronal reformatted images were obtained on the technologist's workstation. Oral contrast: No This CT examination was performed using dose optimization techniques as appropriate, variously including the following: *Automated exposure control *Adjustment of mA and/or kV according to patient size (this includes techniques or standardized protocols for targeted exams where dose is matched to indication/reason for exam; i.e. extremities or head) *Use of iterative reconstruction technique DLP: 575 mGy-cm FINDINGS: LUNG BASES: The visualized lung bases are unremarkable. LIVER, GALLBLADDER, AND BILIARY TREE: Mild hepatic steatosis. No focal hepatic lesion or intrahepatic biliary dilatation. The gallbladder is absent. PANCREAS: Unremarkable. SPLEEN: Unremarkable. ADRENAL GLANDS: Unremarkable. KIDNEYS AND URETERS: A few tiny punctate nephroliths in the left kidney but no right or left hydronephrosis, mass, or perinephric collection. There is a 1 mm punctate nephrolith as well in the central right kidney. BLADDER: Bladder is somewhat obscured due to streak artifact from the patient's right hip bipolar prosthesis. GASTROINTESTINAL TRACT: No bowel obstruction or right or left lower quadrant inflammatory change. Appendix not visualized. ABDOMINAL WALL: No significant hernia is appreciated. LYMPH NODES: Normal. VASCULAR: Unremarkable. PELVIC VISCERA: There appears to be trace fluid in the cul-de-sac near the right adnexa likely physiologic. Uterus and adnexal structures otherwise unremarkable. OSSEOUS STRUCTURES: Unremarkable. CT/CT abdomen pelvis w IV con IMPRESSION: Trace fluid in the cul-de-sac likely physiologic. Small bilateral nephroliths as was seen on the prior ultrasound. Fleischner guidelines were followed.
--- NOTE | ~2023-07-10 | US_ITS ---
EXAMINATION: US PELVIS COMPLETE US PELVIS ENDOVAGINAL CLINICAL INFORMATION: Lower abdominal pain and bleeding COMPARISON: CT abdomen from 07/10/2023 TECHNIQUE: Transabdominal and transvaginal images of the pelvis were obtained. FINDINGS: UTERUS: Retroverted and retroflexed Normal size and contour, measuring 7.5 x 4.0 x 5.9 cm (cervix to fundus x AP x transverse). Uniform, homogeneous endometrium measures 0.5 cm in width. RIGHT OVARY: Normal size and echogenicity measuring 3.3 x 2.3 x 2.0 cm, volume 8.0 mL. Vascular flow noted in the right ovary. LEFT OVARY: Normal size and echogenicity measuring 4.9 x 1.9 x 3.1 cm, volume 15.1 mL. Vascular flow noted in the left ovary. FREE FLUID: Trace pelvic free fluid. US/US pelvic and transvaginal IMPRESSION: 1. Bilateral ovarian vascular flow identified. 2. Trace pelvic free fluid, likely physiologic.
--- NOTE | ~2023-07-10 | US_ITS ---
EXAMINATION: US PELVIS COMPLETE US PELVIS ENDOVAGINAL CLINICAL INFORMATION: Lower abdominal pain and bleeding COMPARISON: CT abdomen from 07/10/2023 TECHNIQUE: Transabdominal and transvaginal images of the pelvis were obtained. FINDINGS: UTERUS: Retroverted and retroflexed Normal size and contour, measuring 7.5 x 4.0 x 5.9 cm (cervix to fundus x AP x transverse). Uniform, homogeneous endometrium measures 0.5 cm in width. RIGHT OVARY: Normal size and echogenicity measuring 3.3 x 2.3 x 2.0 cm, volume 8.0 mL. Vascular flow noted in the right ovary. LEFT OVARY: Normal size and echogenicity measuring 4.9 x 1.9 x 3.1 cm, volume 15.1 mL. Vascular flow noted in the left ovary. FREE FLUID: Trace pelvic free fluid. US/US pelvic ovarian doppler IMPRESSION: 1. Bilateral ovarian vascular flow identified. 2. Trace pelvic free fluid, likely physiologic.
--- NOTE | ~2023-07-10 | XR_ITS ---
EXAMINATION: XR CHEST CLINICAL INFORMATION: Chest pain evaluation COMPARISON: 05/23/2023 TECHNIQUE: Frontal view of the chest was obtained. FINDINGS: No significant abnormality is noted involving the heart, lungs, mediastinum, bony thorax or soft tissues. XR/XR chest 1V IMPRESSION: Unremarkable examination.
--- NOTE | 2023-07-10 08:30 | ECG_ITS ---
Test Reason : nevea Blood Pressure : / mmHG Vent. Rate : 068 BPM Atrial Rate : 068 BPM P-R Int : 130 ms QRS Dur : 086 ms QT Int : 370 ms P-R-T Axes : 013 039 011 degrees QTc Int : 393 ms Normal sinus rhythm Normal ECG When compared with ECG of 05-JUL-2023 13:36, No significant change was found Referred By: Generic ED Physician Electronically Signed By:Tristin Ortiz
[2023-07-10 08:48] VITALS: BP 130/75; PULSE 65; RESP 12; TEMP 36.8; O2SAT 97; BMI 45.0
--- NOTE | 2023-07-10 08:54 | ED.GENADULT ---
HPI - General Adult General Chief complaint: General Medical Stated complaint: Chest pain, dizziness Time Seen by Provider: 07/10/23 08:32 Source: patient Mode of arrival: ambulatory Limitations: no limitations History of Present Illness HPI narrative: 32-year-old female history of hyperlipidemia, migraines, fibromyalgia, PCOS, carpal tunnel obesity, depression, hypertension, GERD, ADHD, bipolar, anxiety, gallstones, COPD presenting with complaints chest discomfort, lightheadedness and heavy vaginal bleeding. Patient reports this has been an ongoing issue since late May however at some point vaginal bleeding stopped at the end of May and restarted back on June 29, since then has been having heavy vaginal bleeding, dark red with clots, large quantity, reports she has changed her pad 2 times since midnight. She reports she has had a biopsy, an ultrasound in the past, and nobody has been able to figure out why she is bleeding. She also reports a iron transfusion on 06/28/2023 at [facility] and she reports that they had to discontinue the transfusion due to allergic reaction. She was discharged home on oral iron she is taking 325 mg of iron twice a week, reports med compliance. Denies blood thinners, no known bleeding disorders. She reports her chest discomfort is in the substernal region nonradiating. Reports lightheadedness particularly with rapid movements. Denies fevers, chills, nausea, vomiting, abdominal pain, visual disturbances. On arrival a NIH stroke scale was obtained 0 Related Data Home Medications Medication Instructions Recorded Confirmed sertraline 100 mg tablet 100 mg PO DAILY 08/22/20 06/12/23 bupropion HCl 150 mg 24 hr tablet, 150 mg PO QAM 05/03/21 06/12/23 extended release norethindrone acetate 5 mg tablet mg PO 07/09/23 Previous Rx's Medication Instructions Recorded lancets 28 gauge (FreeStyle #100 ea 06/27/20 Lancets) FreeStyle Lite Strips (blood sugar 4 strip miscellaneous QID 30 days 07/20/20 diagnostic) #100 strips spironolactone 50 mg tablet 50 mg PO BID #60 tabs 01/05/22 hydroxyzine HCl 25 mg tablet See Rx Instructions .Route 04/04/22 .COMPLEX anxiety 30 days #180 tabs amlodipine 5 mg tablet (Norvasc) 5 mg PO DAILY #30 tabs 05/13/22 BEDSIDE COMMODE #1 ea 05/14/22 FRONT-WHEELED WALKER #1 ea 05/14/22 TUB SEAT with BACK #1 ea 05/14/22 metoclopramide HCl 5 mg tablet 5 mg PO QIDACHS #120 tabs 09/19/22 (Reglan) naproxen 500 mg tablet 500 mg PO BID PRN pain 7 days #14 10/01/22 tabs gabapentin 400 mg capsule 400 mg PO TID 30 days #90 caps 10/17/22 Dexilant 60 mg capsule, delayed 60 mg PO DAILY #30 caps 12/20/22 release (dexlansoprazole) diclofenac sodium 1 % topical gel 2 g topical QID PRN pain #100 grams 01/03/23 (Arthritis Pain (diclofenac)) ferrous sulfate 325 mg (65 mg 325 mg PO DAILY 30 days #30 tabs 01/03/23 iron) tablet (Feosol) [id number] 1 cap PO QID #120 caps 01/11/23 36,000-114,000-180,000 unit capsule,delay rel (Creon) linaclotide 290 mcg capsule 290 mcg PO QAM 30 days #30 caps 01/25/23 (Linzess) labetalol 100 mg tablet 100 mg PO BID 90 days #180 tabs 02/28/23 nebulizers (Compact Compressor #1 ea 02/28/23 Nebulizer) oxycodone 5 mg tablet 5 mg PO Q6H PRN pain (scale score 03/06/23 7-10) #15 tabs albuterol sulfate 90 mcg/actuation 2 puff inhalation Q4-6H PRN 04/17/23 aerosol inhaler (Ventolin HFA) shortness of breath or wheezing #1 ea cyclobenzaprine 10 mg tablet 10 mg PO TID PRN muscle spasm/neck 04/17/23 pain #30 tabs fluticasone propionate 230 2 puff inhalation Q12H #1 ea 04/17/23 mcg-salmeterol 21 mcg/actuation HFA inhaler (Advair HFA) albuterol sulfate 2.5 mg/3 mL 2.5 mg (3 mL) inhalation Q6H #75 mL 05/23/23 (0.083 %) solution for nebulization albuterol sulfate 90 mcg/actuation 2 inh inhalation Q4-6H PRN 12/07/23 breath activated powder inhaler shortness of breath or wheezing #1 ea benzonatate 100 mg capsule 100 mg PO BID PRN cough #20 caps 05/23/23 ondansetron 4 mg disintegrating 4 mg PO Q6H PRN nausea and 05/23/23 tablet vomiting #14 tabs ketorolac 10 mg tablet 10 mg PO TID PRN pain #10 tabs 05/30/23 lidocaine 5 % topical patch 1 patch topical DAILY #15 ea 06/12/23 ibuprofen 800 mg tablet (IBU) 800 mg PO Q8H PRN pain/headaches 06/22/23 30 days #90 tabs pyridoxine (vitamin B6) 100 mg 100 mg PO DAILY 90 days #90 tabs 07/09/23 tablet ferrous sulfate 325 mg (65 mg 325 mg PO DAILY 7 days #7 tabs 07/10/23 iron) tablet Allergies Allergy/AdvReac Type Severity Reaction Status Date / Time amoxicillin [AMOXICILLIN] Allergy Intermediate NAUSEA & Verified 07/09/23 14:05 VOMITING, stomach pain, vomiting, stomach upset topiramate [From TOPAMAX] Allergy Intermediate TREMORS, Verified 07/09/23 14:05 nausea and vomiting latex [LATEX] Allergy Mild RASH Verified 07/09/23 14:05 medroxyprogesterone Allergy Mild RASH Verified 07/09/23 14:05 [From PROVERA] lactose Allergy bloating , Verified 07/09/23 14:05 diarrhea Review of Systems Review of Systems: Constitutional : No Weight loss, No Fever, No Chills, No Fatigue, No Malaise ENT/Mouth : No sore throat, No Rhinorrhea Eyes: No Eye Pain, No Swelling, No Redness Cardiovascular : No Chest Pain, No SOB, No Dyspnea on Exertion, No Orthopnea, No Edema, No Palpitations Respiratory : No Cough, No Sputum, No Wheezing Gastrointestinal : No Nausea, No Vomiting, No Diarrhea, No Constipation, No abdominal Pain, No Hematochezia, No Melena Genitourinary : No Dysuria, No Urinary Frequency, No Hematuria, + vaginal bleeding Musculoskeletal : No joint pain, No Myalgias, No Joint Swelling Skin : No Skin Lesions, No rash Neuro : No Weakness, No Numbness, No Dizziness, No Headache Psych : No Anxiety/Panic, No Depression All other systems reviewed and are negative Yes all other systems are reviewed and are negative [facility] Past Medical History Attestation statement: The following information was validated with the patient. Source: old records reviewed and nursing notes reviewed Medical History Annual physical exam Benign essential hypertension Shortness of breath Thoracic back pain Intermittent chest pain Left ear pain Neck pain Depression Atypical chest pain Tension headache Myofascial pain Sacroiliac joint pain Bilateral primary osteoarthritis of hip Polyuria Right-sided chest pain Post depression BMI 39.0-39.9,adult Pain in left lopez Hematoma of left lower extremity Trigger finger of left thumb Trigger finger of right thumb Insomnia Morbid obesity with BMI of 40.0-44.9, adult Smoker Carpal tunnel syndrome, bilateral Left leg swelling Personal history of gestational diabetes Wrist pain Obesity (BMI 30-39.9) Second trimester Supervision of other high risk , antepartum Supervision of other normal PCOS (polycystic ovarian syndrome) control counseling Migraines Vulvar cyst Lower back pain Anxiety Hyperlipemia Fibromyalgia Rheumatoid arthritis Surgical History S/P laparoscopic cholecystectomy (03/06/23) H/O tubal ligation History of hip replacement, total History of esophagogastroduodenoscopy (EGD) History of removal of cyst History of tonsillectomy and adenoidectomy Family History Family History Father Medical history unknown Mother Diabetes Hypertension Maternal Aunt Breast cancer Ovarian cancer Mental health disorder Maternal Grandmother Diabetes Hypertension Social History Social History Household Members: Spouse and Children Housing: Condominium Alcohol intake: never Patient Tobacco Use Status: Former Tobacco user Quit Date: 2.5 yrs Smoked in Last 30 Days: Yes e-Cigarette/Vaping Use: Never Used Second Hand Smoke Exposure: No Use of substances other than those prescribed or required for medical reasons: No Substance Use Type: Marijuana Advance Directives: No Patient : No service: No Current occupational status: disabled Sexual orientation: Straight/Heterosexual Gender identity: Female Cognitive needs: No Hearing needs: No Vision needs: Yes Physical Exam ED Vital Signs: Vital Signs - 24 hr 07/10/23 08:48 07/10/23 09:41 07/10/23 12:16 Temperature 98.2 F 98.0 F 98.1 F Pulse Rate 65 65 68 Respiratory Rate 12 12 10 L Blood Pressure 130/75 127/80 133/75 Pulse Oximetry 97 99 98 Oxygen Delivery Method Room Air Room Air Room Air BMI result Body Mass Index 45.0 vss Appearance: Alert.? Oriented X3.? No acute distress.? Head: Normocephalic, atraumatic, no step-offs or deformities Eyes: Pupils equal, round and reactive to light.? CVS: Normal heart rate and rhythm.? Pulses normal.? Respiratory: No respiratory distress.? Breath sounds normal.? Abdomen: Soft and nontender.? Skin: Skin warm and dry.? Normal skin color.? Normal skin turgor.? Extremities: No lower extremity edema.? No calf ttp. 5/5 strength to bilateral upper and lower extremities Back: No midline tenderness, no C-spine tenderness, full range of motion, no CVA tenderness bilaterally Neuro: Oriented X 3.? No motor deficit.? No sensory deficit. CN 2-12 intact . Normal koollo-fo-eixy, [id number] steady tandem gait normal coordination. NIH stroke scale 0 Course Reevaluation(s) Reevaluation #1: CBC unremarkable appears to be around patient's baseline, she does have a normocytic anemia, CBC was repeated to look at H and H, H and H stable, not down trending. Chemistry unremarkable. Troponin negative, EKG nonischemic. History and physical exam not consistent with pulmonary embolism, patient PERC negative. Negative UA, no noted infection. CT abdomen pelvis trace fluid in the cul-de-sac likely physiologic and small bilateral nephrolithiasis as seen on previous ultrasound. No symptoms of kidney stones at this time. Unlikely acute nephrolithiasis. Chest x-ray unremarkable. Ultrasound pending. Patient still hemodynamically stable. If ultrasound is unremarkable plan is to follow-up with OBGYN. Will give her a 1 week script of ferrous sulfate to take daily. Educated her to take it on an empty stomach with something ascitic to aid in absorption. Patient understands this. Time: 12:53 Medical Decision Making Medical Decision Making MDM Narrative: 32 year old female presents w/ heavy vaginal bleeding since Jun 29 also having superimposed chest discomfort & dizziness PE benign NIHSS-0 Likely dizziness and light headedness due to heavy vaginal bleeding/ acute bloodloss anemia. ? endometriosis vs dysfunctional vaginal bleeding. CP viral vs anxiety vs non cardiac related cp. Unlikely ACS, PE, CHF, PNA, dissection. Will rule out metabolic derangements. Abd pain ? cramping unlikely obstruction, acute abdomen, pancreatitis, racquel, appendicitis. I do not suspect acute stroke, posterior stroke, intracranial hemorrhage. Although in nursing triage patient reports lower back pain she states that she has not having these at this time. At times she has right-sided flank discomfort however denies any urinary symptoms low suspicion for pyelonephritis, urinary infection, cystitis however will rule out UTI. History and physical exam not consistent with cord compression, cauda equina or epidural abscess. She is also reporting headache which could also be secondary to iron deficiency anemia/acute blood loss anemia. Unlikely intracranial hemorrhage or stroke. Plan- labs, imaging, UA Patient adamantly refusing sensative exam but is agreeable to US Differential Diagnosis Differential Diagnoses: The differential diagnosis associated with the presentation includes Likely dizziness and light headedness due to heavy vaginal bleeding/ acute bloodloss anemia. ? endometriosis vs dysfunctional vaginal bleeding. CP viral vs anxiety vs non cardiac related cp. Unlikely ACS, PE, CHF, PNA, dissection. Will rule out metabolic derangements. Abd pain ? cramping unlikely obstruction, acute abdomen, pancreatitis, racquel, appendicitis. I do not suspect acute stroke, posterior stroke, intracranial hemorrhage.Although in nursing triage patient reports lower back pain she states that she has not having these at this time. At times she has right-sided flank discomfort however denies any urinary symptoms low suspicion for pyelonephritis, urinary infection, cystitis however will rule out UTI. History and physical exam not consistent with cord compression, cauda equina or epidural abscess. She is also reporting headache which could also be secondary to iron deficiency anemia/acute blood loss anemia. Unlikely intracranial hemorrhage or stroke. Admission/Observation Consideration of admission/observation: Escalation of care including admission/observation considered Lab Data MDM Lab Attestation statement: I reviewed the patient's lab results. 07/10/23 12:41 07/10/23 09:12 Labs: Lab Results 07/10/23 07/10/23 07/10/23 Range/Units 09:12 09:15 09:15 WBC 5.0 (4.8-10.8) X10*3/uL RBC 3.88 L (4.20-5.50) X10*6/uL Hgb 9.9 L (12.0-16.0) g/dl Hct 31.9 L (37.0-47.0) % MCV 82.2 (80.0-98.0) fL MCH 25.5 L (27.0-33.0) pg MCHC 31.0 (31.0-35.0) g/dl RDW 16.4 H (11.0-16.0) % Plt Count 290 (160-400) X10*3/uL MPV 11.1 (9.4-12.3) fL Immature Gran % (Auto) 0.4 (0.0-0.4) % Neut % (Auto) 55.0 (45-73) % Lymph % (Auto) 29.6 (20-40) % Hendricks % (Auto) 11.2 H (2-11) % Eos % (Auto) 3.2 (0-4) % Baso % (Auto) 0.6 (0-2) % Lymph # (Auto) 1.5 (1.2-4.9) X10*3/uL Hendricks # (Auto) 0.6 (0.1-1.2) X10*3/uL Eos # (Auto) 0.2 (0.0-0.4) X10*3/uL Baso # (Auto) 0.0 (0.0-0.2) X10*3/uL Abs Immat Gran (auto) 0.02 (0.00-0.03) X10*3/uL Absolute Neuts (auto) 2.8 (2.0-8.3) x10*3/uL Absolute Nucleated RBC 0.000 (0.0-0.012) X10*3/uL Nucleated RBC % (auto) 0.0 (0.0-0.2) /100WBC Hold Blue Top SEE NOTE Sodium 142 (135-145) mmol/L Potassium 4.0 (3.3-5.1) mmol/L Chloride 110 H (96-108) mmol/L Carbon Dioxide 25 (22-29) mmol/L Anion Gap 11 L (12-20) BUN 8 L (9-16) mg/dL Creatinine 0.67 (0.5-1.4) mg/dL Estim Creat Clear Calc 135.5 Estimated GFR > 60 Random Glucose 94 (60-115) mg/dL Calcium 9.1 (8.4-10.2) mg/dL Magnesium 2.0 (1.6-2.6) mg/dL Total Bilirubin 0.4 (0.0-1.0) mg/dL AST 15 (5-31) U/L ALT 14 (0-31) U/L Alkaline Phosphatase 65 (39-117) U/L Troponin I High Sens < 2.7 (<3.5-17.0) ng/L B-Natriuretic Peptide 18 (<100) pg/mL Total Protein 6.7 (6.5-8.0) g/dL Albumin 3.8 (3.5-5.0) g/dL Hold Yellow Top See Note See Note COVID-19 (HARPAL) Negative (Negative) COVID-19 Clin Com See Note Blood Type Antibody Screen 07/10/23 07/10/23 Range/Units 10:02 12:41 WBC 6.6 (4.8-10.8) X10*3/uL RBC 4.04 L (4.20-5.50) X10*6/uL Hgb 10.2 L (12.0-16.0) g/dl Hct 32.8 L (37.0-47.0) % MCV 81.2 (80.0-98.0) fL MCH 25.2 L (27.0-33.0) pg MCHC 31.1 (31.0-35.0) g/dl RDW 16.4 H (11.0-16.0) % Plt Count 295 (160-400) X10*3/uL MPV 10.6 (9.4-12.3) fL Immature Gran % (Auto) 0.5 H (0.0-0.4) % Neut % (Auto) 56.5 (45-73) % Lymph % (Auto) 29.3 (20-40) % Hendricks % (Auto) 10.8 (2-11) % Eos % (Auto) 2.4 (0-4) % Baso % (Auto) 0.5 (0-2) % Lymph # (Auto) 1.9 (1.2-4.9) X10*3/uL Hendricks # (Auto) 0.7 (0.1-1.2) X10*3/uL Eos # (Auto) 0.2 (0.0-0.4) X10*3/uL Baso # (Auto) 0.0 (0.0-0.2) X10*3/uL Abs Immat Gran (auto) 0.03 (0.00-0.03) X10*3/uL Absolute Neuts (auto) 3.7 (2.0-8.3) x10*3/uL Absolute Nucleated RBC 0.000 (0.0-0.012) X10*3/uL Nucleated RBC % (auto) 0.0 (0.0-0.2) /100WBC Hold Blue Top Sodium (135-145) mmol/L Potassium (3.3-5.1) mmol/L Chloride (96-108) mmol/L Carbon Dioxide (22-29) mmol/L Anion Gap (12-20) BUN (9-16) mg/dL Creatinine (0.5-1.4) mg/dL Estim Creat Clear Calc Estimated GFR Random Glucose (60-115) mg/dL Calcium (8.4-10.2) mg/dL Magnesium (1.6-2.6) mg/dL Total Bilirubin (0.0-1.0) mg/dL AST (5-31) U/L ALT (0-31) U/L Alkaline Phosphatase (39-117) U/L Troponin I High Sens (<3.5-17.0) ng/L B-Natriuretic Peptide (<100) pg/mL Total Protein (6.5-8.0) g/dL Albumin (3.5-5.0) g/dL Hold Yellow Top COVID-19 (HARPAL) (Negative) COVID-19 Clin Com Blood Type A Positive Antibody Screen NEGATIVE Independent Interpretation I performed an independent interpretation of an: EKG (EKG normal sinus rhythm no signs of ischemia. No ST elevations or inversions concerning for ischemia. Ventricular rate of 68 ND normal, QRS normal.), Plain X-Ray (XR/XR chest 1V IMPRESSION: Unremarkable examination. ), Ultrasound and CT Scan (CT/CT abdomen pelvis w IV con IMPRESSION: Trace fluid in the cul-de-sac likely physiologic. Small bilateral nephroliths as was seen on the prior ultrasound. Fleischner guidelines were followed.) Radiology Impression Discussion of test interpretation with radiology: I have reviewed the radiologist's reading. Critical Care Time Critical Care Time Critical Care Time: Yes Total Critical Care Time: 35 Attestation: I attest to this time spent taking care of the patient, obtaining history, physical, reviewing labs, imaging, speaking to my attending Discharge Plan Discharge Clinical Impression: Dysfunctional uterine bleeding, Chest pain, Headache, Dizziness, Anemia Patient Disposition: Home, Self-Care Instructions: Chest Pain (ED), Dysfunctional Uterine Bleeding (ED), Acute Headache (ED), Dizziness (ED), Anemia (ED) Additional Instructions: Take your medications as prescribed. If you were prescribed antibiotics today, it is important that you take your medication to their entirety, do not skip any doses, do not finish them early. Follow-up with your primary care provider this week. Return to the emergency department with new or worsening symptoms. Such as fevers, chills, chest pain, shortness of breath, nausea, vomiting, dizziness, headache, vision changes, lethargy In case of emergency call 911 Please start taking ferrous sulfate daily or a week and follow-up with your PCP for repeat labs. CT/CT abdomen pelvis w IV con IMPRESSION: Trace fluid in the cul-de-sac likely physiologic. Small bilateral nephroliths as was seen on the prior ultrasound. Fleischner guidelines were followed. US/US pelvic ovarian doppler IMPRESSION: 1. Bilateral ovarian vascular flow identified. 2. Trace pelvic free fluid, likely physiologic. Prescriptions: New ferrous sulfate 325 mg (65 mg iron) tablet 325 mg PO DAILY 7 Days Qty: 7 0RF No Action FreeStyle Lite Strips Strip 4 strip miscellaneous QID 30 Days Qty: 100 1RF (DME) FRONT-WHEELED WALKER See Rx Instructions .Route .MEDSUPPLY Qty: 1 0RF Rx Instructions: As directed (DME) TUB SEAT with BACK See Rx Instructions .Route .MEDSUPPLY Qty: 1 0RF Rx Instructions: As directed (DME) BEDSIDE COMMODE See Rx Instructions .Route .MEDSUPPLY Qty: 1 0RF Rx Instructions: As directed gabapentin 400 mg capsule 400 mg PO TID 30 Days Qty: 90 3RF Rx Instructions: 1 capsule Orally Three times a day Dexilant 60 mg capsule,biphase delayed releas 60 mg PO DAILY Qty: 30 6RF ibuprofen [IBU] 800 mg tablet 800 mg PO Q8H PRN (Reason: pain/headaches) 30 Days Qty: 90 0RF Rx Instructions: Take with food amlodipine [Norvasc] 5 mg tablet 5 mg PO DAILY Qty: 30 0RF ondansetron 4 mg tablet,disintegrating 4 mg PO Q6H PRN (Reason: nausea and vomiting) Qty: 14 0RF albuterol sulfate 90 mcg/actuation aerosol powdr breath activated 2 inh inhalation Q4-6H PRN (Reason: shortness of breath or wheezing) Qty: 1 0RF albuterol sulfate 2.5 mg /3 mL (0.083 %) solution for nebulization 2.5 mg inhalation Q6H Qty: 75 0RF benzonatate 100 mg capsule 100 mg PO BID PRN (Reason: cough) Qty: 20 0RF ketorolac 10 mg tablet 10 mg PO TID PRN (Reason: pain) Qty: 10 0RF Rx Instructions: Do not use this medication with ibuprofen/Aleve/NSAIDs, only Tylenol if needed naproxen 500 mg tablet 500 mg PO BID PRN (Reason: pain) 7 Days Qty: 14 0RF oxycodone 5 mg tablet 5 mg PO Q6H PRN (Reason: pain (scale score 7-10)) Qty: 15 0RF Rx Instructions: Partial Fill upon patient request. sertraline 100 mg tablet 100 mg PO DAILY hydroxyzine HCl 25 mg tablet See Rx Instructions .ROUTE .COMPLEX 30 Days Qty: 180 3RF Rx Instructions: 1 to 2 tablets 3 times a day as needed for anxiety; ferrous sulfate [Feosol] 325 mg (65 mg iron) tablet 325 mg PO DAILY 30 Days Qty: 30 5RF diclofenac sodium [Arthritis Pain (diclofenac)] 1 % gel 2 g topical QID PRN (Reason: pain) Qty: 100 0RF cyclobenzaprine 10 mg tablet 10 mg PO TID PRN (Reason: muscle spasm/neck pain) Qty: 30 0RF (DME) nebulizers [Compact Compressor Nebulizer] Misc See Rx Instructions .Route Qty: 1 0RF Rx Instructions: As directed labetalol 100 mg tablet 100 mg PO BID 90 Days Qty: 180 1RF lidocaine 5 % adhesive patch,medicated 1 patch topical DAILY Qty: 15 0RF Rx Instructions: leave on most painful area for up to 12 hrs (DME) lancets [FreeStyle Lancets] 28 gauge misc See Rx Instructions .ROUTE .MEDSUPPLY Qty: 100 1RF Rx Instructions: 4 times/day bupropion HCl 150 mg tablet extended release 24 hr 150 mg PO QAM spironolactone 50 mg tablet 50 mg PO BID Qty: 60 5RF metoclopramide HCl [Reglan] 5 mg tablet 5 mg PO QIDACHS Qty: 120 6RF norethindrone acetate 5 mg tablet PO pyridoxine (vitamin B6) 100 mg tablet 100 mg PO DAILY 90 Days Qty: 90 1RF Creon 36,000-114,000- 180,000 unit capsule,delayed release(DR/EC) 1 cap PO QID Qty: 120 6RF Rx Instructions: administer with meals and/or snacks Linzess 290 mcg capsule 290 mcg PO QAM 30 Days Qty: 30 6RF fluticasone propion-salmeterol [Advair HFA] 230-21 mcg/actuation HFA aerosol inhaler 2 puff inhalation Q12H Qty: 1 3RF albuterol sulfate [Ventolin HFA] 90 mcg/actuation HFA aerosol inhaler 2 puff inhalation Q4-6H PRN (Reason: shortness of breath or wheezing) Qty: 1 3RF Referrals: Jarrod Sherman MD [Primary Care Provider] - 2 days Stand Alone Forms: Work/School Release
[2023-07-10 09:24] LABS: MANUAL DIFF FLAG NO
--- NOTE | 2023-07-10 09:36 | PC.NURSE ---
#20 IV TO Ashwini SINGLETARY.
[2023-07-10 09:37] LABS: Basophils Percent Auto 0.6 % (0-2); Eosinophils Absolute Auto 0.2 X10*3/uL (0.0-0.4); Eosinophils Percent Auto 3.2 % (0-4); Hematocrit 31.9 % (37.0-47.0); Hemoglobin 9.9 g/dl (12.0-16.0); Imm Gran Abs Auto 0.02 X10*3/uL (0.00-0.03); Imm Gran Pct Auto 0.4 % (0.0-0.4); Lymphocytes Absolute Auto 1.5 X10*3/uL (1.2-4.9); Lymphocytes Percent Auto 29.6 % (20-40); Mean Corpuscular Hemoglobin 25.5 pg (27.0-33.0); Mean Corpuscular Volume 82.2 fL (80.0-98.0); Mean Platelet Volume 11.1 fL (9.4-12.3); Monocytes Absolute Auto 0.6 X10*3/uL (0.1-1.2); Monocytes Percent Auto 11.2 % (2-11); Neutrophils Absolute Auto 2.8 x10*3/uL (2.0-8.3); Platelet Count 290 X10*3/uL (160-400); Red Blood Count 3.88 X10*6/uL (4.20-5.50); Red Cell Distribution Width 16.4 % (11.0-16.0)
[2023-07-10 09:41] VITALS: BP 127/80; PULSE 65; RESP 12; TEMP 36.7; O2SAT 99
[2023-07-10 09:50] LABS: Alanine Aminotransferase 14 U/L (0-31); Albumin Level 3.8 g/dL (3.5-5.0); Alkaline Phosphatase 65 U/L (39-117); Anion Gap 11 (12-20); Aspartate Amino Transferase 15 U/L (5-31); Bilirubin Total 0.4 mg/dL (0.0-1.0); Blood Urea Nitrogen 8 mg/dL (9-16); Calcium 9.1 mg/dL (8.4-10.2); Carbon Dioxide 25 mmol/L (22-29); Chloride 110 mmol/L (96-108); Creatinine Clr Calc Pharmacy 135.5; Estimated Glomerular Filt Rate > 60; Glucose Random 94 mg/dL (60-115); Sodium 142 mmol/L (135-145); Total Protein 6.7 g/dL (6.5-8.0)
[2023-07-10 10:00] LABS: COVID-19 Test Negative (Negative); IDNOW Serial# 08D9AD1C
[2023-07-10 10:12] LABS: B Type Natriuretic Peptide 18 pg/mL (<100)
[2023-07-10 10:46] LABS: Troponin-I High Sensitivity < 2.7 ng/L (<3.5-17.0)
[2023-07-10 12:16] VITALS: BP 133/75; PULSE 68; RESP 10; TEMP 36.7; O2SAT 98
[2023-07-10 12:44] LABS: MANUAL DIFF FLAG NO
[2023-07-10 12:47] LABS: Basophils Percent Auto 0.5 % (0-2); Eosinophils Absolute Auto 0.2 X10*3/uL (0.0-0.4); Eosinophils Percent Auto 2.4 % (0-4); Hematocrit 32.8 % (37.0-47.0); Hemoglobin 10.2 g/dl (12.0-16.0); Imm Gran Abs Auto 0.03 X10*3/uL (0.00-0.03); Imm Gran Pct Auto 0.5 % (0.0-0.4); Lymphocytes Absolute Auto 1.9 X10*3/uL (1.2-4.9); Lymphocytes Percent Auto 29.3 % (20-40); Mean Corpuscular HGB Conc 31.1 g/dl (31.0-35.0); Mean Corpuscular Hemoglobin 25.2 pg (27.0-33.0); Mean Corpuscular Volume 81.2 fL (80.0-98.0); Mean Platelet Volume 10.6 fL (9.4-12.3); Monocytes Absolute Auto 0.7 X10*3/uL (0.1-1.2); Monocytes Percent Auto 10.8 % (2-11); Neutrophils Absolute Auto 3.7 x10*3/uL (2.0-8.3); Neutrophils Percent Auto 56.5 % (45-73); Platelet Count 295 X10*3/uL (160-400); Red Blood Count 4.04 X10*6/uL (4.20-5.50); Red Cell Distribution Width 16.4 % (11.0-16.0); White Blood Count 6.6 X10*3/uL (4.8-10.8)
[2023-07-10 13:29] LABS: HCG Quantitative < 2 mIU/mL
== END 2023-07-10 13:31 | disposition home or self-care (01) ==
PROVIDERS: Physician Assistant; Emergency Provider Emergency Medicine; PCP Internal Medicine
DX: R07.9 Chest pain, unspecified (principal); N93.8 Other specified abnormal uterine and vaginal bleeding; R51.9 Headache, unspecified; R42 Dizziness and giddiness; D64.9 Anemia, unspecified; Z11.52 Encounter for screening for COVID-19; I10 Essential (primary) hypertension; E78.5 Hyperlipidemia, unspecified; Z79.899 Other long term (current) drug therapy
CPT/HCPCS: 36415; 71045; 74177; 76830; 76856; 80053; 83735; 83880; 84484; 84702; 85025; 86850; 86900; 86901; 87635; 93005; 93975; 99284

== ENCOUNTER → 2023-07-10 08:30 | Outpatient (BNV) | payer OTHER, SELFPAY | PROVIDERS: Emergency Provider Emergency Medicine; PCP Internal Medicine; Visit Provider Internal Medicine Cardiovascular Disease | DX: R07.9 Chest pain, unspecified (principal) | CPT/HCPCS: 93010 ==

== ENCOUNTER 2023-07-12 14:33 | Emergency (ER) | payer OTHER, SELFPAY ==
--- NOTE | 2023-07-12 14:45 | ED.ABDPAIN ---
HPI - Abdominal Pain General Chief Complaint: Urogenital-Female Stated Complaint: Kidney Stone Time Seen by Provider: 07/12/23 17:24 Source: patient Mode of arrival: ambulatory Limitations: no limitations History of Present Illness HPI narrative: patient comes to the emergency room complaining of left-sided back pain. Patient denies any injuries. Patient states it started about 24 hours ago. patient states that when she moves the pain becomes worse over the left side. Patient denies hematuria or dysuria. Patient has history of kidney stones. patient denies fever or chills Related Data Home Medications Medication Instructions Recorded Confirmed sertraline 100 mg tablet 100 mg PO DAILY 08/22/20 06/12/23 bupropion HCl 150 mg 24 hr tablet, 150 mg PO QAM 05/03/21 06/12/23 extended release norethindrone acetate 5 mg tablet mg PO 07/09/23 Previous Rx's Medication Instructions Recorded lancets 28 gauge (FreeStyle #100 ea 06/27/20 Lancets) FreeStyle Lite Strips (blood sugar 4 strip miscellaneous QID 30 days 07/20/20 diagnostic) #100 strips spironolactone 50 mg tablet 50 mg PO BID #60 tabs 01/05/22 hydroxyzine HCl 25 mg tablet See Rx Instructions .Route 04/04/22 .COMPLEX anxiety 30 days #180 tabs amlodipine 5 mg tablet (Norvasc) 5 mg PO DAILY #30 tabs 05/13/22 BEDSIDE COMMODE #1 ea 05/14/22 FRONT-WHEELED WALKER #1 ea 05/14/22 TUB SEAT with BACK #1 ea 05/14/22 metoclopramide HCl 5 mg tablet 5 mg PO QIDACHS #120 tabs 09/19/22 (Reglan) naproxen 500 mg tablet 500 mg PO BID PRN pain 7 days #14 10/01/22 tabs gabapentin 400 mg capsule 400 mg PO TID 30 days #90 caps 10/17/22 Dexilant 60 mg capsule, delayed 60 mg PO DAILY #30 caps 12/20/22 release (dexlansoprazole) diclofenac sodium 1 % topical gel 2 g topical QID PRN pain #100 grams 01/03/23 (Arthritis Pain (diclofenac)) ferrous sulfate 325 mg (65 mg 325 mg PO DAILY 30 days #30 tabs 01/03/23 iron) tablet (Feosol) [id number] 1 cap PO QID #120 caps 01/11/23 36,000-114,000-180,000 unit capsule,delay rel (Creon) linaclotide 290 mcg capsule 290 mcg PO QAM 30 days #30 caps 01/25/23 (Linzess) labetalol 100 mg tablet 100 mg PO BID 90 days #180 tabs 02/28/23 nebulizers (Compact Compressor #1 ea 02/28/23 Nebulizer) oxycodone 5 mg tablet 5 mg PO Q6H PRN pain (scale score 03/06/23 7-10) #15 tabs albuterol sulfate 90 mcg/actuation 2 puff inhalation Q4-6H PRN 04/17/23 aerosol inhaler (Ventolin HFA) shortness of breath or wheezing #1 ea cyclobenzaprine 10 mg tablet 10 mg PO TID PRN muscle spasm/neck 04/17/23 pain #30 tabs fluticasone propionate 230 2 puff inhalation Q12H #1 ea 04/17/23 mcg-salmeterol 21 mcg/actuation HFA inhaler (Advair HFA) albuterol sulfate 2.5 mg/3 mL 2.5 mg (3 mL) inhalation Q6H #75 mL 05/23/23 (0.083 %) solution for nebulization albuterol sulfate 90 mcg/actuation 2 inh inhalation Q4-6H PRN 05/23/23 breath activated powder inhaler shortness of breath or wheezing #1 ea benzonatate 100 mg capsule 100 mg PO BID PRN cough #20 caps 05/23/23 ondansetron 4 mg disintegrating 4 mg PO Q6H PRN nausea and 05/23/23 tablet vomiting #14 tabs ketorolac 10 mg tablet 10 mg PO TID PRN pain #10 tabs 05/30/23 lidocaine 5 % topical patch 1 patch topical DAILY #15 ea 06/12/23 ibuprofen 800 mg tablet (IBU) 800 mg PO Q8H PRN pain/headaches 06/22/23 30 days #90 tabs pyridoxine (vitamin B6) 100 mg 100 mg PO DAILY 90 days #90 tabs 07/09/23 tablet ferrous sulfate 325 mg (65 mg 325 mg PO DAILY 7 days #7 tabs 07/10/23 iron) tablet cefuroxime axetil 500 mg tablet 500 mg PO BID 7 days #14 tabs 07/12/23 cyclobenzaprine 10 mg tablet 10 mg PO TID PRN muscle spasm #7 07/12/23 tabs Allergies Allergy/AdvReac Type Severity Reaction Status Date / Time amoxicillin [AMOXICILLIN] Allergy Intermediate NAUSEA & Verified 07/09/23 14:05 VOMITING, stomach pain, vomiting, stomach upset topiramate [From TOPAMAX] Allergy Intermediate TREMORS, Verified 07/09/23 14:05 nausea and vomiting latex [LATEX] Allergy Mild RASH Verified 07/09/23 14:05 medroxyprogesterone Allergy Mild RASH Verified 07/09/23 14:05 [From PROVERA] lactose Allergy bloating , Verified 07/09/23 14:05 diarrhea Review of Systems Review of Systems Constitutional : No Weight loss, No Fever, No Chills, No Night Sweats, No Fatigue, No Malaise ENT/Mouth : No Hearing loss, No Ear Pain, No Nasal Congestion, No Sinus Pain, No Hoarseness, No sore throat, No Rhinorrhea, No Swallowing Difficulty Eyes: No Eye Pain, No Swelling, No Redness, No Foreign Body, No Discharge, No Vision Changes Cardiovascular : No Chest Pain, No SOB, No Dyspnea on Exertion, No Orthopnea, No Edema, No Palpitations Respiratory : No Cough, No Sputum, No Wheezing, No Smoke Exposure, No Dyspnea Gastrointestinal : No Nausea, No Vomiting, No Diarrhea, No Constipation, No abdominal Pain, No Hematochezia, No Melena Genitourinary : no irregular bleeding, No Dysuria, No Urinary Frequency, No Hematuria, No Urinary Incontinence, No Urgency, No Flank Pain, No Urinary Flow Changes, No Hesitancy Musculoskeletal : complaining of left back pain which worsens with moving, No joint pain, No Myalgias, No Joint Swelling Skin : No Skin Lesions, No rash Neuro : No Weakness, No Numbness, No Paresthesias, No Loss of Consciousness, No Dizziness, No Headache Psych : No Anxiety/Panic, No Depression, No SI/HI/AH/VH, No Social Issues, Heme/Lymph: No Bruising, No Bleeding,No Lymphadenopathy Endocrine : No Polyuria, No Polydipsia, No Temperature Intolerance PMFSH Past Medical History Medical History Annual physical exam Benign essential hypertension Shortness of breath Thoracic back pain Intermittent chest pain Left ear pain Neck pain Depression Atypical chest pain Tension headache Myofascial pain Sacroiliac joint pain Bilateral primary osteoarthritis of hip Polyuria Right-sided chest pain Post depression BMI 39.0-39.9,adult Pain in left lopez Hematoma of left lower extremity Trigger finger of left thumb Trigger finger of right thumb Insomnia Morbid obesity with BMI of 40.0-44.9, adult Smoker Carpal tunnel syndrome, bilateral Left leg swelling Personal history of gestational diabetes Wrist pain Obesity (BMI 30-39.9) Second trimester Supervision of other high risk , antepartum Supervision of other normal PCOS (polycystic ovarian syndrome) control counseling Migraines Vulvar cyst Lower back pain Anxiety Hyperlipemia Fibromyalgia Rheumatoid arthritis Surgical History S/P laparoscopic cholecystectomy (03/06/23) H/O tubal ligation History of hip replacement, total History of esophagogastroduodenoscopy (EGD) History of removal of cyst History of tonsillectomy and adenoidectomy Family History Family History Father Medical history unknown Mother Diabetes Hypertension Maternal Aunt Breast cancer Ovarian cancer Mental health disorder Maternal Grandmother Diabetes Hypertension Social History Social History Household Members: Spouse and Children Housing: Condominium Alcohol intake: never Patient Tobacco Use Status: Former Tobacco user Quit Date: 2.5 yrs e-Cigarette/Vaping Use: Never Used Second Hand Smoke Exposure: No Substance Use Type: Marijuana Advance Directives: No Advance Directives Information Provided: No service: No Current occupational status: disabled Sexual orientation: Straight/Heterosexual Gender identity: Female Cognitive needs: No Hearing needs: No Vision needs: Yes Physical Exam ED Vital Signs: Vital Signs - 24 hr 07/12/23 14:46 Temperature 97.7 F Pulse Rate 71 Respiratory Rate 16 Blood Pressure 146/79 H Pulse Oximetry 96 Oxygen Delivery Method Room Air BMI result Body Mass Index 39.8 Const Other: Appearance: Alert. Oriented X3. No acute distress. Eyes: Pupils equal, round and reactive to light. ENT: Pharynx normal. Neck: Normal inspection. Neck supple. No lymph nodes noted. No crepitus CVS: Normal heart rate and rhythm. Pulses normal. Normal S1 and S2 Respiratory: No respiratory distress. Breath sounds normal. No Wheezing. No rales Abdomen: Soft and nontender. No rigidity. No distention. back: Pain to palpation over the back pain on the left, above the hips, negative CVA tenderness Skin: Skin warm and dry. Normal skin color. Normal skin turgor. Extremities: No lower extremity edema. No Lacerations. No Rash Neuro: Oriented X 3. No motor deficit. No sensory deficit. Moving all extremities. No slurred speech. CN 2 through 12 grossly intact Psych: calm, cooperative, normal affect Course Course Course Narrative: This is an RME: Additional HPI, ROS, PE not included below will be deferred to primary provider. Patient is a 31-year-old female who presents to the emergency department for evaluation of left flank pain since yesterday night with concern for kidney stone, she is followed by Dr. Rausch. Associated nausea and vomiting, no fever/chills. Plan: labs, U/A Medical Decision Making Medical Decision Making [facility] [place] Narrative: - my interpretation of labs: Hematology is at baseline, patient has chronic anemia. - I reviewed patient's radiology reports from 2 days ago, CT scan showed trace fluid in the cul-de-sac likely physiologic, small bilateral nephrolithiasis a seen on the prior ultrasound. At this time, there is no indication to repeat CT scan or ultrasound. - My interpretation of urinalysis: No blood in the urine, white blood cell counts presents, squamous epithelial cells positive, +1 bacteria. We will go ahead and treat this as a UTI given the patient's symptoms. Although, seems that patient has mostly musculoskeletal pain. low suspicion for pyelonephritis - patient has no fever or chills, no hypotensive events, sepsis not suspected Differential Diagnosis Differential Diagnoses: The differential diagnosis associated with the presentation includes ( UTI, pyelonephritis, musculoskeletal pain, ureterolithiasis) Lab Data [facility] [place] Lab Attestation statement: I reviewed the patient's lab results. 07/12/23 15:04 07/12/23 15:04 Labs: Lab Results 07/12/23 Range/Units 15:04 WBC 6.3 (4.8-10.8) X10*3/uL RBC 3.78 L (4.20-5.50) X10*6/uL Hgb 9.9 L (12.0-16.0) g/dl Hct 31.6 L (37.0-47.0) % MCV 83.6 (80.0-98.0) fL MCH 26.2 L (27.0-33.0) pg MCHC 31.3 (31.0-35.0) g/dl RDW 16.6 H (11.0-16.0) % Plt Count 271 (160-400) X10*3/uL MPV 11.6 (9.4-12.3) fL Immature Gran % (Auto) 0.2 (0.0-0.4) % Neut % (Auto) 54.8 (45-73) % Lymph % (Auto) 30.6 (20-40) % [place] % (Auto) 11.0 (2-11) % Eos % (Auto) 2.4 (0-4) % Baso % (Auto) 1.0 (0-2) % Lymph # (Auto) 1.9 (1.2-4.9) X10*3/uL [place] # (Auto) 0.7 (0.1-1.2) X10*3/uL Eos # (Auto) 0.2 (0.0-0.4) X10*3/uL Baso # (Auto) 0.1 (0.0-0.2) X10*3/uL Abs Immat Gran (auto) 0.01 (0.00-0.03) X10*3/uL Absolute Neuts (auto) 3.4 (2.0-8.3) x10*3/uL Absolute Nucleated RBC 0.000 (0.0-0.012) X10*3/uL Nucleated RBC % (auto) 0.0 (0.0-0.2) /100WBC Sodium 143 (135-145) mmol/L Potassium 4.4 (3.3-5.1) mmol/L Chloride 112 H (96-108) mmol/L Carbon Dioxide 19 L (22-29) mmol/L Anion Gap 16 (12-20) BUN 8 L (9-16) mg/dL Creatinine 0.78 (0.5-1.4) mg/dL Estim Creat Clear Calc 108.3 Estimated GFR > 60 Random Glucose 87 (60-115) mg/dL Calcium 9.1 (8.4-10.2) mg/dL Total Bilirubin 0.2 (0.0-1.0) mg/dL AST 17 (5-31) U/L ALT 14 (0-31) U/L Alkaline Phosphatase 63 (39-117) U/L Total Protein 7.0 (6.5-8.0) g/dL Albumin 3.7 (3.5-5.0) g/dL Urine Color Yellow Urine Appearance Cloudy Urine pH 5.5 (5.0-9.0) Ur Specific [place] >= 1.030 H (1.005-1.025) Urine Protein Trace (Neg-Trace) mg/dL Urine Glucose (UA) Negative (Negative) mg/dL Urine Ketones Trace (Negative) mg/dL Urine Blood Negative (Negative) Urine Nitrite Negative (Negative) Ur Leukocyte Esterase Trace H (Negative) Urine RBC 0-2 (0-2) /HPF Urine WBC 6-10 H (0-5) /HPF Ur Squamous Epith Cells 11-20 (0-2) /HPF Urine Bacteria 1+ (None Seen) Hyaline Casts 11-20 (0-2) /LPF Radiology Impression Discussion of test interpretation with radiology: I have reviewed the radiologist's reading. Radiologist Impression: FINDINGS: LUNG BASES: The visualized lung bases are unremarkable. LIVER, GALLBLADDER, AND BILIARY TREE: Mild hepatic steatosis. No focal hepatic lesion or intrahepatic biliary dilatation. The gallbladder is absent. PANCREAS: Unremarkable. SPLEEN: Unremarkable. ADRENAL GLANDS: Unremarkable. KIDNEYS AND URETERS: A few tiny punctate nephroliths in the left kidney but no right or left hydronephrosis, mass, or perinephric collection. There is a 1 mm punctate nephrolith as well in the central right kidney. BLADDER: Bladder is somewhat obscured due to streak artifact from the patient's right hip bipolar prosthesis. GASTROINTESTINAL TRACT: No bowel obstruction or right or left lower quadrant inflammatory change. Appendix not visualized. ABDOMINAL WALL: No significant hernia is appreciated. LYMPH NODES: Normal. VASCULAR: Unremarkable. PELVIC VISCERA: There appears to be trace fluid in the cul-de-sac near the right adnexa likely physiologic. Uterus and adnexal structures otherwise unremarkable. OSSEOUS STRUCTURES: Unremarkable. CT/CT abdomen pelvis w IV con IMPRESSION: Trace fluid in the cul-de-sac likely physiologic. Small bilateral nephroliths as was seen on the prior ultrasound. Discharge Plan Discharge Clinical Impression: Musculoskeletal back pain, UTI (urinary tract infection) Patient Disposition: Home, Self-Care Instructions: Urinary Tract Infection in Women (ED), Back Pain (ED) Additional Instructions: Please follow-up with your primary care physician tomorrow. If you have any worsening or new symptoms, please return to the emergency room or call 911 Prescriptions: New cefuroxime axetil 500 mg tablet 500 mg PO BID 7 Days Qty: 14 0RF cyclobenzaprine 10 mg tablet 10 mg PO TID PRN (Reason: muscle spasm) Qty: 7 0RF No Action FreeStyle Lite Strips Strip 4 strip miscellaneous QID 30 Days Qty: 100 1RF (DME) FRONT-WHEELED WALKER See Rx Instructions .Route .MEDSUPPLY Qty: 1 0RF Rx Instructions: As directed (DME) TUB SEAT with BACK See Rx Instructions .Route .MEDSUPPLY Qty: 1 0RF Rx Instructions: As directed (DME) BEDSIDE COMMODE See Rx Instructions .Route .MEDSUPPLY Qty: 1 0RF Rx Instructions: As directed gabapentin 400 mg capsule 400 mg PO TID 30 Days Qty: 90 3RF Rx Instructions: 1 capsule Orally Three times a day Dexilant 60 mg capsule,biphase delayed releas 60 mg PO DAILY Qty: 30 6RF ibuprofen [IBU] 800 mg tablet 800 mg PO Q8H PRN (Reason: pain/headaches) 30 Days Qty: 90 0RF Rx Instructions: Take with food amlodipine [Norvasc] 5 mg tablet 5 mg PO DAILY Qty: 30 0RF ondansetron 4 mg tablet,disintegrating 4 mg PO Q6H PRN (Reason: nausea and vomiting) Qty: 14 0RF albuterol sulfate 90 mcg/actuation aerosol powdr breath activated 2 inh inhalation Q4-6H PRN (Reason: shortness of breath or wheezing) Qty: 1 0RF albuterol sulfate 2.5 mg /3 mL (0.083 %) solution for nebulization 2.5 mg inhalation Q6H Qty: 75 0RF benzonatate 100 mg capsule 100 mg PO BID PRN (Reason: cough) Qty: 20 0RF ketorolac 10 mg tablet 10 mg PO TID PRN (Reason: pain) Qty: 10 0RF Rx Instructions: Do not use this medication with ibuprofen/Aleve/NSAIDs, only Tylenol if needed ferrous sulfate 325 mg (65 mg iron) tablet 325 mg PO DAILY 7 Days Qty: 7 0RF naproxen 500 mg tablet 500 mg PO BID PRN (Reason: pain) 7 Days Qty: 14 0RF oxycodone 5 mg tablet 5 mg PO Q6H PRN (Reason: pain (scale score 7-10)) Qty: 15 0RF Rx Instructions: Partial Fill upon patient request. sertraline 100 mg tablet 100 mg PO DAILY hydroxyzine HCl 25 mg tablet See Rx Instructions .ROUTE .COMPLEX 30 Days Qty: 180 3RF Rx Instructions: 1 to 2 tablets 3 times a day as needed for anxiety; ferrous sulfate [Feosol] 325 mg (65 mg iron) tablet 325 mg PO DAILY 30 Days Qty: 30 5RF diclofenac sodium [Arthritis Pain (diclofenac)] 1 % gel 2 g topical QID PRN (Reason: pain) Qty: 100 0RF cyclobenzaprine 10 mg tablet 10 mg PO TID PRN (Reason: muscle spasm/neck pain) Qty: 30 0RF (DME) nebulizers [Compact Compressor Nebulizer] Misc See Rx Instructions .Route Qty: 1 0RF Rx Instructions: As directed labetalol 100 mg tablet 100 mg PO BID 90 Days Qty: 180 1RF lidocaine 5 % adhesive patch,medicated 1 patch topical DAILY Qty: 15 0RF Rx Instructions: leave on most painful area for up to 12 hrs (DME) lancets [FreeStyle Lancets] 28 gauge misc See Rx Instructions .ROUTE .MEDSUPPLY Qty: 100 1RF Rx Instructions: 4 times/day bupropion HCl 150 mg tablet extended release 24 hr 150 mg PO QAM spironolactone 50 mg tablet 50 mg PO BID Qty: 60 5RF metoclopramide HCl [Reglan] 5 mg tablet 5 mg PO QIDACHS Qty: 120 6RF norethindrone acetate 5 mg tablet PO pyridoxine (vitamin B6) 100 mg tablet 100 mg PO DAILY 90 Days Qty: 90 1RF Creon 36,000-114,000- 180,000 unit capsule,delayed release(DR/EC) 1 cap PO QID Qty: 120 6RF Rx Instructions: administer with meals and/or snacks Linzess 290 mcg capsule 290 mcg PO QAM 30 Days Qty: 30 6RF fluticasone propion-salmeterol [Advair HFA] 230-21 mcg/actuation HFA aerosol inhaler 2 puff inhalation Q12H Qty: 1 3RF albuterol sulfate [Ventolin HFA] 90 mcg/actuation HFA aerosol inhaler 2 puff inhalation Q4-6H PRN (Reason: shortness of breath or wheezing) Qty: 1 3RF
[2023-07-12 14:46] VITALS: BP 146/79; PULSE 71; RESP 16; TEMP 36.5; O2SAT 96; BMI 39.8
[2023-07-12 15:14] LABS: Basophils Absolute Auto 0.1 X10*3/uL (0.0-0.2); Eosinophils Absolute Auto 0.2 X10*3/uL (0.0-0.4); Eosinophils Percent Auto 2.4 % (0-4); Hematocrit 31.6 % (37.0-47.0); Hemoglobin 9.9 g/dl (12.0-16.0); Imm Gran Abs Auto 0.01 X10*3/uL (0.00-0.03); Imm Gran Pct Auto 0.2 % (0.0-0.4); Lymphocytes Absolute Auto 1.9 X10*3/uL (1.2-4.9); Lymphocytes Percent Auto 30.6 % (20-40); MANUAL DIFF FLAG NO; Mean Corpuscular HGB Conc 31.3 g/dl (31.0-35.0); Mean Corpuscular Hemoglobin 26.2 pg (27.0-33.0); Mean Corpuscular Volume 83.6 fL (80.0-98.0); Mean Platelet Volume 11.6 fL (9.4-12.3); Monocytes Absolute Auto 0.7 X10*3/uL (0.1-1.2); Neutrophils Absolute Auto 3.4 x10*3/uL (2.0-8.3); Neutrophils Percent Auto 54.8 % (45-73); Platelet Count 271 X10*3/uL (160-400); Red Blood Count 3.78 X10*6/uL (4.20-5.50); Red Cell Distribution Width 16.6 % (11.0-16.0); White Blood Count 6.3 X10*3/uL (4.8-10.8)
[2023-07-12 15:17] LABS: Appearance Urine Cloudy; Color Urine Yellow; Glucose Urine UA Negative (Negative); Leukocyte Esterase Urine Trace (Negative); Nitrite Urine Negative (Negative); PH 5.5 (5.0-9.0); Specific Gravity - Urine >= 1.030 (1.005-1.025); UMIC TRIGGER UACC YES; Urine Blood Negative (Negative); Urine Ketones Trace mg/dL (Negative); Urine Protein Trace mg/dL (Neg-Trace)
[2023-07-12 15:25] LABS: Bacteria Urine 1+ (None Seen); RBC Urine 0-2 /HPF (0-2); UACC Culture Trigger YES
[2023-07-12 17:29] LABS: Alanine Aminotransferase 14 U/L (0-31); Albumin Level 3.7 g/dL (3.5-5.0); Alkaline Phosphatase 63 U/L (39-117); Anion Gap 16 (12-20); Aspartate Amino Transferase 17 U/L (5-31); Bilirubin Total 0.2 mg/dL (0.0-1.0); Blood Urea Nitrogen 8 mg/dL (9-16); Calcium 9.1 mg/dL (8.4-10.2); Carbon Dioxide 19 mmol/L (22-29); Chloride 112 mmol/L (96-108); Creatinine Clr Calc Pharmacy 108.3; Estimated Glomerular Filt Rate > 60; Glucose Random 87 mg/dL (60-115); Potassium 4.4 mmol/L (3.3-5.1); Sodium 143 mmol/L (135-145)
[2023-07-12 17:39] VITALS: BP 136/69; PULSE 67; RESP 16; TEMP 36.9; O2SAT 99
--- NOTE | 2023-07-12 17:40 | MHC.EDTECH ---
This Pct just assumed care of Pt ,vitals taken ,pt watching shows on her Phone .
[2023-07-12 18:02] LABS: UPreg QC Valid YES; Urine Pregnancy NEGATIVE (NEGATIVE)
[2023-07-12] MEDS: cefuroxime axetiL 500 MG TABLET PO (18:59)
== END 2023-07-12 19:03 | disposition home or self-care (01) ==
PROVIDERS: Nurse Practitioner Family; Emergency Provider Emergency Medicine; PCP Internal Medicine
DX: N39.0 Urinary tract infection, site not specified (principal); M79.18 Myalgia, other site; I10 Essential (primary) hypertension; E78.5 Hyperlipidemia, unspecified; Z90.49 Acquired absence of other specified parts of digestive tract; Z79.899 Other long term (current) drug therapy
CPT/HCPCS: 36415; 80053; 81001; 81025; 85025; 87086; 99283; 99284

== ENCOUNTER 2023-07-14 10:34 | Emergency (ER) | payer OTHER, SELFPAY ==
--- NOTE | ~2023-07-14 | CT_ITS ---
EXAMINATION: CT LUMBAR SPINE CLINICAL INFORMATION: Severe pain COMPARISON: None available. TECHNIQUE: Axial 2 mm thin and reformatted sagittal and axial 2 mm thin images of lumbar spine were obtained without contrast. This CT examination was performed using dose optimization techniques as appropriate, variously including the following: *Automated exposure control *Adjustment of mA and/or kV according to patient size (this includes techniques or standardized protocols for targeted exams where dose is matched to indication/reason for exam; i.e. extremities or head) *Use of iterative reconstruction technique DLP: 811 mGy-cm FINDINGS: On sagittal reconstructed images there is maintained lumbar lordosis. The vertebral heights, alignment and disc heights are normal. There is no visible acute fracture, dislocation or subluxation. There is moderate bilateral L5-S1, mild L4-L5 and L3-L4 facet joint arthropathy. There are superior and inferior endplate Schmorl's node L4 vertebra. There is mild posterior spondylosis L4-L5 disc level. No lytic or sclerotic process seen. There is 3 mm, 2 mm lower pole and it 3 mm midpole radiopaque calculi left kidney without caliectasis. There is 2 mm nonobstructive radiopaque calculi midpole right kidney. No focal caliectasis or hydronephrosis seen. CT/CT lumbar spine w IV con IMPRESSION: No acute fracture, dislocation. Degenerative facet joint arthropathy as described above. Bilateral nonobstructive radiopaque renal calculi.
[2023-07-14 10:45] VITALS: BP 138/98; PULSE 82; O2SAT 99
[2023-07-14 11:15] VITALS: BP 135/90; PULSE 67; RESP 20; TEMP 37; O2SAT 99; BMI 39.7
--- NOTE | 2023-07-14 12:12 | ED_ITS ---
HPI - Back Pain/Injury General Chief Complaint: Back Pain/Injury Stated Complaint: weak,abd/back pain,nausea,vomiting,dizzy per ems Time Seen by Provider: 07/14/23 11:30 Source: patient Limitations: no limitations History of Present Illness HPI Narrative: patient is a 32-year-old female who presents emergency department via EMS for evaluation of back pain. She reports onset 3 days ago, left mid to lower back pain radiating down the left leg. She reports a history of back pain in the past but never this severe. Denies any precipitating injury. She states she is unable to walk as the pain is so severe. She has been taking the muscle relaxant as prescribed from her emergency department visit 2 days ago without any improvement. Denies recent precipitating injury, fevers, chills, burning with micturition, urinary frequency/urgency/hesitancy, bladder or bowel dysfunction, numbness or tingling of the perineum or bilateral legs. Denies any recent surgical procedures, any known immune compromising conditions, personal history of cancer, or IV drug usage. MD elicited complaint: back pain Related Data Home Medications Medication Instructions Recorded Confirmed sertraline 100 mg tablet 100 mg PO DAILY 08/22/20 06/12/23 bupropion HCl 150 mg 24 hr tablet, 150 mg PO QAM 05/03/21 06/12/23 extended release norethindrone acetate 5 mg tablet mg PO 07/09/23 Previous Rx's Medication Instructions Recorded lancets 28 gauge (FreeStyle #100 ea 06/27/20 Lancets) FreeStyle Lite Strips (blood sugar 4 strip miscellaneous QID 30 days 07/20/20 diagnostic) #100 strips spironolactone 50 mg tablet 50 mg PO BID #60 tabs 01/05/22 hydroxyzine HCl 25 mg tablet See Rx Instructions .Route 04/04/22 .COMPLEX anxiety 30 days #180 tabs amlodipine 5 mg tablet (Norvasc) 5 mg PO DAILY #30 tabs 05/13/22 BEDSIDE COMMODE #1 ea 05/14/22 FRONT-WHEELED WALKER #1 ea 05/14/22 TUB SEAT with BACK #1 ea 05/14/22 metoclopramide HCl 5 mg tablet 5 mg PO QIDACHS #120 tabs 09/19/22 (Reglan) naproxen 500 mg tablet 500 mg PO BID PRN pain 7 days #14 10/01/22 tabs gabapentin 400 mg capsule 400 mg PO TID 30 days #90 caps 10/17/22 Dexilant 60 mg capsule, delayed 60 mg PO DAILY #30 caps 12/20/22 release (dexlansoprazole) diclofenac sodium 1 % topical gel 2 g topical QID PRN pain #100 grams 01/03/23 (Arthritis Pain (diclofenac)) ferrous sulfate 325 mg (65 mg 325 mg PO DAILY 30 days #30 tabs 01/03/23 iron) tablet (Feosol) [id number]-[id number]-[id number] 1 cap PO QID #120 caps 01/11/23 36,000-114,000-180,000 unit capsule,delay rel (Creon) linaclotide 290 mcg capsule 290 mcg PO QAM 30 days #30 caps 01/25/23 (Linzess) labetalol 100 mg tablet 100 mg PO BID 90 days #180 tabs 02/28/23 nebulizers (Compact Compressor #1 ea 02/28/23 Nebulizer) oxycodone 5 mg tablet 5 mg PO Q6H PRN pain (scale score 03/06/23 7-10) #15 tabs albuterol sulfate 90 mcg/actuation 2 puff inhalation Q4-6H PRN 04/17/23 aerosol inhaler (Ventolin HFA) shortness of breath or wheezing #1 ea cyclobenzaprine 10 mg tablet 10 mg PO TID PRN muscle spasm/neck 04/17/23 pain #30 tabs fluticasone propionate 230 2 puff inhalation Q12H #1 ea 04/17/23 mcg-salmeterol 21 mcg/actuation HFA inhaler (Advair HFA) albuterol sulfate 2.5 mg/3 mL 2.5 mg (3 mL) inhalation Q6H #75 mL 05/23/23 (0.083 %) solution for nebulization albuterol sulfate 90 mcg/actuation 2 inh inhalation Q4-6H PRN 05/23/23 breath activated powder inhaler shortness of breath or wheezing #1 ea benzonatate 100 mg capsule 100 mg PO BID PRN cough #20 caps 05/23/23 ondansetron 4 mg disintegrating 4 mg PO Q6H PRN nausea and 05/23/23 tablet vomiting #14 tabs ketorolac 10 mg tablet 10 mg PO TID PRN pain #10 tabs 05/30/23 lidocaine 5 % topical patch 1 patch topical DAILY #15 ea 06/12/23 ibuprofen 800 mg tablet (IBU) 800 mg PO Q8H PRN pain/headaches 06/22/23 30 days #90 tabs pyridoxine (vitamin B6) 100 mg 100 mg PO DAILY 90 days #90 tabs 07/09/23 tablet ferrous sulfate 325 mg (65 mg 325 mg PO DAILY 7 days #7 tabs 07/10/23 iron) tablet cefuroxime axetil 500 mg tablet 500 mg PO BID 7 days #14 tabs 07/12/23 cyclobenzaprine 10 mg tablet 10 mg PO TID PRN muscle spasm #7 07/12/23 tabs lidocaine 5 % topical patch 2 patch topical DAILY #30 ea 07/14/23 (Lidoderm) morphine 15 mg immediate release 15 mg PO Q6H PRN pain #20 tabs 07/14/23 tablet prednisone 20 mg tablet 40 mg (2 x 20 mg) PO DAILY 5 days 07/14/23 #10 tabs Allergies Allergy/AdvReac Type Severity Reaction Status Date / Time amoxicillin [AMOXICILLIN] Allergy Intermediate NAUSEA & Verified 07/14/23 11:18 VOMITING, stomach pain, vomiting, stomach upset topiramate [From TOPAMAX] Allergy Intermediate TREMORS, Verified 07/14/23 11:18 nausea and vomiting latex [LATEX] Allergy Mild RASH Verified 07/14/23 11:18 medroxyprogesterone Allergy Mild RASH Verified 07/14/23 11:18 [From PROVERA] lactose Allergy bloating , Verified 07/14/23 11:18 diarrhea Review of Systems Review of Systems: Yes all other systems are reviewed and are negative [facility] Past Medical History Attestation statement: The following information was validated with the patient. Source: old records reviewed Medical History Annual physical exam Benign essential hypertension Shortness of breath Thoracic back pain Intermittent chest pain Left ear pain Neck pain Depression Atypical chest pain Tension headache Myofascial pain Sacroiliac joint pain Bilateral primary osteoarthritis of hip Polyuria Right-sided chest pain Post depression BMI 39.0-39.9,adult Pain in left lopez Hematoma of left lower extremity Trigger finger of left thumb Trigger finger of right thumb Insomnia Morbid obesity with BMI of 40.0-44.9, adult Smoker Carpal tunnel syndrome, bilateral Left leg swelling Personal history of gestational diabetes Wrist pain Obesity (BMI 30-39.9) Second trimester Supervision of other high risk , antepartum Supervision of other normal PCOS (polycystic ovarian syndrome) control counseling Migraines Vulvar cyst Lower back pain Anxiety Hyperlipemia Fibromyalgia Rheumatoid arthritis Surgical History S/P laparoscopic cholecystectomy (03/06/23) H/O tubal ligation History of hip replacement, total History of esophagogastroduodenoscopy (EGD) History of removal of cyst History of tonsillectomy and adenoidectomy Family History Family History Father Medical history unknown Mother Diabetes Hypertension Maternal Aunt Breast cancer Ovarian cancer Mental health disorder Maternal Grandmother Diabetes Hypertension Social History Social History Household Members: Spouse and Children Housing: Condominium Alcohol intake: never Patient Tobacco Use Status: Former Tobacco user Quit Date: 2.5 yrs e-Cigarette/Vaping Use: Never Used Second Hand Smoke Exposure: No Substance Use Type: Marijuana Advance Directives: No service: No Current occupational status: disabled Sexual orientation: Straight/Heterosexual Gender identity: Female Cognitive needs: No Hearing needs: No Vision needs: Yes Physical Exam Vital Signs: Vital Signs: Last Vital Signs Temp 98.6 F 07/14/23 11:15 Pulse 67 07/14/23 11:15 Resp 20 07/14/23 11:15 BP 135/90 H 07/14/23 11:15 Pulse Ox 99 07/14/23 11:15 O2 Del Method Room Air 07/14/23 11:15 BMI result Body Mass Index 39.7 Appearance: Alert.?Oriented to person, place and time. No acute distress.?Normal affect. Eyes: Pupils equal, round and reactive to light.? ENT: Pharynx normal.?? Neck: Normal inspection.? Neck supple.?? CVS: Heart sounds normal. Normal heart rate and rhythm.? Pulses normal; bilateral radial pulses 2+, bilateral posterior tibial/dorsalis pedis pulses 2+.? Respiratory: No respiratory distress.? Lung sounds clear to auscultation bilaterally?? Abdomen: Soft and non-tender. Normoactive bowel sounds. No pulsatile mass.?? Skin: Skin warm and dry.? Normal skin color.? Normal skin turgor.?? Extremities: No lower extremity edema.? No calf ttp? Back: Moderate tenderness upon palpation over the left thoracic/lumbar region of the back and the left buttock. No midline spinal tenderness, step-off's, or deformity. Full ROM intact in bilateral lower extremities. No rashes, lesions, areas of induration or fluctuance, or signs of infection noted., Neuro: No focal neuro deficits. Normal rectal tone, moves all extremities spontaneously. Course Reevaluation(s) Reevaluation #1: patient has received a total of 4 mg of morphine. She is noted to be sleeping on the stretcher. Easily arouses to verbal stimuli. She reports absolutely no pain relief from the morphine, continues to radiate to the left leg. With slight movement of the left leg she yells in pain, though she was able get up to the commode with staff assistance. discussed this case with ED attending Dr. Haas, will trial Versed. Time: 14:53 Reevaluation #2: patient continues to report severe pain unrelieved with Versed either, again discussed this case with ED attending Dr. Haas, I suspect at this time that pain is most consistent with muscular pain, although cannot completely exclude herniated disc. On neurological exam there are no deficits. Not consistent with spinal infection, epidural abscess, AAA, epidural abscess, or dissection. No high risk past medical history including incontinence, fever, immunosuppression, recent surgery or lumbar puncture, coagulopathy, significant trauma, recent unintentional weight loss, pulsatile mass, history of cancer, history of TB, history of IV drug use that would warrant MRI or CT. Not consistent with ectopic , pyelonephritis, urinary tract infection, renal calculi, pelvic infection, appendicitis, diverticulitis. On exam no concern for cauda equina syndrome. Dr. Haas to bedside to speak with patient as well/ examine - plan for increased gabapentin from home dose, single dose of IV dexamethasone in the ED and will discharge home with oral morphine, prednisone, and Lidoderm patches. Reviewed worrisome signs and symptoms that would warrant a evaluation in the emergency department. Advised that she must follow-up with her primary care provider/have course of physical therapy and further management Time: 16:11 Reevaluation #3: examined patient - no bowel bladder incontinence no saddle anesthesia pain in left lumbar paraspinal area - distal NV intact, pain with raising left leg at 30 degrees, she is able to get up and to the bathroom commode on her own. she has reproduceable pain without trauma. She is not on blood thinners and is not IVDA. She expects to be pain free but we discussed disc disease and back pain and r ealistically she will have pain and expectant management with her PCP and PT. She is 32 without signs of neuro compromise and does not need to be admitted. Patient refuses medications refuses plan will sign out to Dr. Coleman for reassessment Additional Reevaluation(s): 18:40 - CT of the lumbar spine reveals degenerative facet arthropathy, made aware of these findings. ambulatory with slow antalgic gait. stable for discharge home and outpatient follow-up as aforementioned. Medications Administered Discontinued Medications Generic Name Dose Route Start Last Admin Trade Name Bob PRN Reason Stop Dose Admin Dexamethasone Sodium Phosphate 6 mg 07/14/23 16:10 07/14/23 16:49 Dexamethasone Sod Phosphate 4 Mg/Ml Vial IVPUSH 07/14/23 16:11 6 mg ONCE ONE Administration Gabapentin 600 mg 07/14/23 16:10 07/14/23 16:49 Gabapentin 600 Mg Tablet PO 07/14/23 16:11 600 mg ONCE ONE Administration Iohexol 85 ml 07/14/23 17:45 07/14/23 17:45 Iohexol 350 Mg/Ml 100 Ml Infus..Btl IV 07/14/23 17:46 85 ml ONCE ONE Administration Midazolam HCl 2 mg 07/14/23 14:55 07/14/23 15:04 Midazolam Hcl/Pf 2 Mg/2 Ml Vial IVPUSH 07/14/23 14:56 2 mg ONCE ONE Administration Morphine Sulfate 4 mg 07/14/23 12:06 07/14/23 12:16 Morphine Sulfate 4 Mg/Ml Cartridge IM 07/14/23 12:07 4 mg ONCE ONE Administration Protocol Morphine Sulfate 4 mg 07/14/23 13:15 07/14/23 14:13 Morphine Sulfate 4 Mg/Ml Cartridge IVPUSH 07/14/23 13:16 4 mg ONCE ONE Administration Protocol Medical Decision Making Medical Decision Making [facility] Narrative: Patient is a 32-year-old female who presents emergency department for evaluation of left sided back pain radiating to the leg as per HPI. Initial physical examination is difficult, she is lying supine and reports unable to move from this position due to severe pain. Muscle relaxants have not been beneficial for her, will trial pain management with morphine at this time. she denies any genitourinary symptoms but states she is currently being treated for UTI, upon review of her record from 07/12/2023, urinalysis / culture consistent with urogenital contamination, suspect less likely to be pyelonephritis /renal colic. No precipitating injury to suggest spinal fracture, no high-risk past medical history to suggest spinal infection, epidural abscess, AAA, dissection. No recent surgery lumbar puncture, coagulopathy, fever immunosuppression. Denies bladder/bowel dysfunction, declines rectal tone examination Differential Diagnosis Differential Diagnoses: The differential diagnosis associated with the presentation includes ( see narrative above) Admission/Observation Consideration of admission/observation: Escalation of care including admission/observation considered ( see narrative above) Independent Interpretation I performed an independent interpretation of an: CT Scan Radiology Impression Discussion of test interpretation with radiology: I have reviewed the radiologist's reading. Radiologist Impression: CT/CT lumbar spine w IV con IMPRESSION: No acute fracture, dislocation. Degenerative facet joint arthropathy as described above. Bilateral nonobstructive radiopaque renal calculi. External Record Review External record reviewed: Outpatient record and Other ([facility]) Tests considered The following testing was considered but not selected: see narrative above/ course narrative Prescription Management I considered prescription management with: Pain Medication Critical Care Time Critical Care Time Critical Care Time: Yes Total Critical Care Time: 45 Attestation: I personally attest to this critical care time spent taking care of the patient exclusive of all other billable procedures was approximately 45 minutes including initial evaluation of patient, ordering tests,, medical consultation, documentation, re-evaluation. Discharge Plan Discharge Clinical Impression: Degenerative arthropathy of spinal facet joint Patient Disposition: Home, Self-Care Instructions: Acute Low Back Pain (ED) Additional Instructions: As discussed, it is recommended to increase her gabapentin to 600 mg 3 times daily. I have sent a prescription for morphine to your pharmacy please take this as instructed, this is a narcotic medication that may make you drowsy, you should not drive, drink alcohol, or work while taking this medication. Take prednisone once daily beginning tomorrow. Apply Lidoderm patches as instructed. You must follow-up with your primary care provider, they are likely going to have you complete a course of physical therapy and will facilitate further outpatient management of this. Prescriptions: New lidocaine [Lidoderm] 5 % adhesive patch,medicated 2 patch topical DAILY Qty: 30 0RF Rx Instructions: leave on most painful area for up to 12 hrs prednisone 20 mg tablet 40 mg PO DAILY 5 Days Qty: 10 0RF morphine 15 mg tablet 15 mg PO Q6H PRN (Reason: pain) Qty: 20 0RF Rx Instructions: Partial Fill upon patient request. No Action FreeStyle Lite Strips Strip 4 strip miscellaneous QID 30 Days Qty: 100 1RF (DME) FRONT-WHEELED WALKER See Rx Instructions .Route .MEDSUPPLY Qty: 1 0RF Rx Instructions: As directed (DME) TUB SEAT with BACK See Rx Instructions .Route .MEDSUPPLY Qty: 1 0RF Rx Instructions: As directed (DME) BEDSIDE COMMODE See Rx Instructions .Route .MEDSUPPLY Qty: 1 0RF Rx Instructions: As directed gabapentin 400 mg capsule 400 mg PO TID 30 Days Qty: 90 3RF Rx Instructions: 1 capsule Orally Three times a day Dexilant 60 mg capsule,biphase delayed releas 60 mg PO DAILY Qty: 30 6RF ibuprofen [IBU] 800 mg tablet 800 mg PO Q8H PRN (Reason: pain/headaches) 30 Days Qty: 90 0RF Rx Instructions: Take with food amlodipine [Norvasc] 5 mg tablet 5 mg PO DAILY Qty: 30 0RF ondansetron 4 mg tablet,disintegrating 4 mg PO Q6H PRN (Reason: nausea and vomiting) Qty: 14 0RF albuterol sulfate 90 mcg/actuation aerosol powdr breath activated 2 inh inhalation Q4-6H PRN (Reason: shortness of breath or wheezing) Qty: 1 0RF albuterol sulfate 2.5 mg /3 mL (0.083 %) solution for nebulization 2.5 mg inhalation Q6H Qty: 75 0RF benzonatate 100 mg capsule 100 mg PO BID PRN (Reason: cough) Qty: 20 0RF ketorolac 10 mg tablet 10 mg PO TID PRN (Reason: pain) Qty: 10 0RF Rx Instructions: Do not use this medication with ibuprofen/Aleve/NSAIDs, only Tylenol if needed ferrous sulfate 325 mg (65 mg iron) tablet 325 mg PO DAILY 7 Days Qty: 7 0RF naproxen 500 mg tablet 500 mg PO BID PRN (Reason: pain) 7 Days Qty: 14 0RF oxycodone 5 mg tablet 5 mg PO Q6H PRN (Reason: pain (scale score 7-10)) Qty: 15 0RF Rx Instructions: Partial Fill upon patient request. cefuroxime axetil 500 mg tablet 500 mg PO BID 7 Days Qty: 14 0RF cyclobenzaprine 10 mg tablet 10 mg PO TID PRN (Reason: muscle spasm) Qty: 7 0RF sertraline 100 mg tablet 100 mg PO DAILY hydroxyzine HCl 25 mg tablet See Rx Instructions .ROUTE .COMPLEX 30 Days Qty: 180 3RF Rx Instructions: 1 to 2 tablets 3 times a day as needed for anxiety; ferrous sulfate [Feosol] 325 mg (65 mg iron) tablet 325 mg PO DAILY 30 Days Qty: 30 5RF diclofenac sodium [Arthritis Pain (diclofenac)] 1 % gel 2 g topical QID PRN (Reason: pain) Qty: 100 0RF cyclobenzaprine 10 mg tablet 10 mg PO TID PRN (Reason: muscle spasm/neck pain) Qty: 30 0RF (DME) nebulizers [Compact Compressor Nebulizer] Misc See Rx Instructions .Route Qty: 1 0RF Rx Instructions: As directed labetalol 100 mg tablet 100 mg PO BID 90 Days Qty: 180 1RF lidocaine 5 % adhesive patch,medicated 1 patch topical DAILY Qty: 15 0RF Rx Instructions: leave on most painful area for up to 12 hrs (DME) lancets [FreeStyle Lancets] 28 gauge misc See Rx Instructions .ROUTE .MEDSUPPLY Qty: 100 1RF Rx Instructions: 4 times/day bupropion HCl 150 mg tablet extended release 24 hr 150 mg PO QAM spironolactone 50 mg tablet 50 mg PO BID Qty: 60 5RF metoclopramide HCl [Reglan] 5 mg tablet 5 mg PO QIDACHS Qty: 120 6RF norethindrone acetate 5 mg tablet PO pyridoxine (vitamin B6) 100 mg tablet 100 mg PO DAILY 90 Days Qty: 90 1RF Creon 36,000-114,000- 180,000 unit capsule,delayed release(DR/EC) 1 cap PO QID Qty: 120 6RF Rx Instructions: administer with meals and/or snacks Linzess 290 mcg capsule 290 mcg PO QAM 30 Days Qty: 30 6RF fluticasone propion-salmeterol [Advair HFA] 230-21 mcg/actuation HFA aerosol inhaler 2 puff inhalation Q12H Qty: 1 3RF albuterol sulfate [Ventolin HFA] 90 mcg/actuation HFA aerosol inhaler 2 puff inhalation Q4-6H PRN (Reason: shortness of breath or wheezing) Qty: 1 3RF Referrals: Jarrod Sherman MD [Primary Care Provider] - Interventions: ED Discharge Assessment Last Done: 07/14/23 18:45
[2023-07-14] MEDS: Morphine Sulfate 4 MG/ML CARTRIDGE IM (12:16)
[2023-07-14] MEDS: Morphine Sulfate 4 MG/ML CARTRIDGE IVPUSH (14:13)
[2023-07-14] MEDS: Midazolam HCl/PF 2 MG/2 ML VIAL IVPUSH (15:04)
[2023-07-14] MEDS: Gabapentin 600 MG TABLET PO (16:49)
[2023-07-14] MEDS: dexAMETHasone sod phosphate 4 MG/ML VIAL 6 MG IVPUSH (16:49)
[2023-07-14] MEDS: iohexoL 350 MG/ML 100 ML INFUS..BTL 85 ML IV (17:45)
== END 2023-07-14 19:05 | disposition home or self-care (01) ==
PROVIDERS: Emergency Provider Emergency Medicine; PCP Internal Medicine
DX: M47.816 Spondylosis without myelopathy or radiculopathy, lumbar region (principal); M54.50 Low back pain, unspecified; M79.605 Pain in left leg; R11.2 Nausea with vomiting, unspecified; R42 Dizziness and giddiness; Z79.899 Other long term (current) drug therapy; Z87.891 Personal history of nicotine dependence
CPT/HCPCS: 72132; 96372; 96374; 96375; 99282; 99284; J1100; J2250; J2270; Q9967

== ENCOUNTER 2023-07-24 10:36 | Outpatient (AMB) | payer OTHER, SELFPAY ==
[2023-07-24 10:51] VITALS: BP 124/60; PULSE 73; O2SAT 100; BMI 39.1
--- NOTE | 2023-07-24 10:51 | A.OFFVIS_ITS ---
Intake Vital Signs 07/24/23 10:51 Height 5 ft 1 in Weight 207 lb BMI 39.1 BP 124/60 Blood Pressure Location Rt brachial Position Sitting Pulse 73 Pulse Source Pulse Oximeter Pulse Oximetry (%) 100 Oxygen Delivery Method Room Air Intake Visit Reasons: copd : 4 month f/u Data Collection Associate Required: No Defense Analyst: Defense Analyst offered & declined Accompanied by: Self / Same As Patient Allergies amoxicillin [AMOXICILLIN] Allergy (Intermediate, Verified 07/24/23 10:55) NAUSEA & VOMITING, stomach pain, vomiting, stomach upset topiramate [From TOPAMAX] Allergy (Intermediate, Verified 07/24/23 10:55) TREMORS, nausea and vomiting latex [LATEX] Allergy (Mild, Verified 07/24/23 10:55) RASH medroxyprogesterone [From PROVERA] Allergy (Mild, Verified 07/24/23 10:55) RASH lactose Allergy (Verified 07/24/23 10:55) bloating , diarrhea Medication List - Last Reconciled 07/24/23 by Esthela Lipscomb LPN albuterol sulfate 90 mcg/actuation 2 inhalations inhalation Q4-6H PRN albuterol sulfate 2.5 mg (3 mL) inhalation Q6H amlodipine (Norvasc) 5 mg PO DAILY [BEDSIDE COMMODE As directed] benzonatate 100 mg PO BID PRN bupropion HCl 150 mg PO QAM cyclobenzaprine 10 mg PO TID PRN Dexilant (dexlansoprazole) 60 mg PO DAILY NS ferrous sulfate 325 mg PO DAILY 7 days fluticasone propion-salmeterol 230-21 mcg/actuation (Advair HFA) 2 puffs i nhalation Q12H FreeStyle Lite Strips (blood sugar diagnostic) 4 strips miscellaneous QID 30 days NS [FRONT-WHEELED WALKER As directed] gabapentin 400 mg PO TID 30 days hydroxyzine HCl 1 to 2 tablets 3 times a day as needed for anxiety; 30 days ibuprofen (IBU) 800 mg PO Q8H PRN 30 days ketorolac 10 mg PO TID PRN labetalol 100 mg PO BID 90 days lancets (FreeStyle Lancets) 4 times/day lidocaine 5% (Lidoderm) 2 patches topical DAILY linaclotide (Linzess) 290 mcg PO QAM 30 days leajfk-obhdcept-bijbkiw 36,000-114,000- 180,000 unit (Creon) 1 cap PO QID metoclopramide HCl (Reglan) 5 mg PO QIDACHS morphine 15 mg PO Q6H PRN nebulizers (Compact Compressor Nebulizer) As directed norethindrone acetate mg PO ondansetron 4 mg PO Q6H PRN pyridoxine (vitamin B6) 100 mg PO DAILY 90 days sertraline 100 mg PO DAILY spironolactone 50 mg PO BID [TUB SEAT with BACK As directed] HPI copd : 4 month f/u HPI Details Gabriella is a very pleasant 32-year-old female, never tobacco smoker, current everyday marijuana smoker. Patient also with anemia and can not tolerate oral iron, started iron infusions, follow up labs ordered in three months. Today she presents for routine follow up. She reports using Advair HFA two inhalations in the morning with moderate improvements in symptoms but continues to use albuterol on a daily basis due to chest tightness and intermittent wheezing. She has recently stopped using marijuana x 3 days in hopes to improve her symptoms. [facility] Medical History Annual physical exam Benign essential hypertension Shortness of breath Thoracic back pain Intermittent chest pain Left ear pain Neck pain Depression Atypical chest pain Tension headache Myofascial pain Sacroiliac joint pain Bilateral primary osteoarthritis of hip Polyuria Right-sided chest pain Post depression BMI 39.0-39.9,adult Pain in left lopez Hematoma of left lower extremity Trigger finger of left thumb Trigger finger of right thumb Insomnia Morbid obesity with BMI of 40.0-44.9, adult Smoker Carpal tunnel syndrome, bilateral Left leg swelling Personal history of gestational diabetes Wrist pain Obesity (BMI 30-39.9) Second trimester Supervision of other high risk , antepartum Supervision of other normal PCOS (polycystic ovarian syndrome) control counseling Migraines Vulvar cyst Lower back pain Anxiety Hyperlipemia Fibromyalgia Rheumatoid arthritis Surgical History S/P laparoscopic cholecystectomy (03/06/23) H/O tubal ligation History of hip replacement, total History of esophagogastroduodenoscopy (EGD) History of removal of cyst History of tonsillectomy and adenoidectomy Family History Father Medical history unknown Mother Diabetes Hypertension Maternal Aunt Breast cancer Ovarian cancer Mental health disorder Maternal Grandmother Diabetes Hypertension Social History Household Members: Spouse and Children Housing: Condominium Alcohol intake: never Patient Tobacco Use Status: Former Tobacco user Quit Date: 2.5 yrs e-Cigarette/Vaping Use: Never Used Second Hand Smoke Exposure: No Substance Use Type: Marijuana service: No Current occupational status: disabled Sexual orientation: Straight/Heterosexual Gender identity: Female Cognitive needs: No Hearing needs: No Vision needs: Yes Female Reproductive History Menstrual Age of Menarche: 8 Review of Systems Const Denies chills, Denies excessive sweating, Denies fever(s), Denies headache(s) and Denies night sweats Eyes Denies dry eyes, Denies irritation and Denies itchy eyes ENT Reports Normal hearing present, Denies headache(s), Denies nasal congestion, Denies nasal discharge, Denies post nasal drip and Denies sore throat Card Denies chest pain, Denies chest pain at rest, Denies chest pain with activity, Denies claudication, Denies leg edema and Denies orthopnea Resp Denies chest congestion, Denies cough, Denies excessive phlegm production, Denies pain on inspiration, Denies pain with cough and Denies stridor Musc Denies myalgias Neuro Reports Normal hearing present and Denies headache(s) Endo Denies excessive sweating Teddy/Lymph Denies lymphadenopathy Aller/Immun Denies itchy eyes and Denies seasonal rhinorrhea Physical Exam Vital Signs: Last Vital Signs Pulse 73 07/24/23 10:51 BP 124/60 07/24/23 10:51 Pulse Ox 100 07/24/23 10:51 Oxygen Delivery Method Room Air 07/24/23 10:51 BMI result Body Mass Index 39.1 Const General: cooperative, healthy appearing, comfortable, no acute distress, well developed and alert Nutritional Appearance: obese Orientation/consciousness: patient oriented x3 Limitations: no limitations HEENT Head: Yes normal to inspection, Yes normocephalic and Yes atraumatic Ears: hearing grossly normal bilaterally and external ears normal Eyes General: appearance normal, both eyes and all related structures Eyelids: Yes eyelids normal Sclerae: sclerae normal EOM: EOMs intact bilaterally Neck Neck: Yes normal visual inspection and Yes no lymphadenopathy Lymphatic: no lymphadenopathy noted Chest Chest palpation & inspection: normal inspection of the chest Resp Effort & Inspection: normal respiratory effort, able to speak in complete sentences, no audible wheezes, no cough, no stridor, not tachypneic, no tripod positioning and no use of accessory muscles Auscultation: clear to auscultation bilaterally Cardio Jugular venous distension: no JVD Rate: regular rate Rhythm: regular rhythm Skin Other: warm, dry General skin exam: no rashes or lesions noted Neuro General: patient oriented x3 Cranial nerves: Yes Normal hearing present Cognition (Neuro): normal cognition Gait exam (Neuro): Normal gait present Extrem General: Yes normal to inspection, Yes capillary refill normal, Yes no clubbing, cyanosis or edema and Yes no pedal edema Psych Appearance: grossly normal and well kempt Speech and movement: Normal speech and movement present and Clear speech present Affect: normal affect Attitude: cooperative Thought process: Normal thought process present Thought content: Normal thought content present Insight: Good insight present (Psych) Judgement: Good judgement present (Psych) Assessment & Plan Assessment & Plan (1) COPD (chronic obstructive pulmonary disease): Code(s): J44.9 - Chronic obstructive pulmonary disease, unspecified (2) Obesity (BMI 30-39.9): Code(s): E66.9 - Obesity, unspecified Plan She reports subboptimal control with Advair, but only using in the morning. Advised to start using BID and will reassess in three months. Patient also reported 20lb weight loss and is motivated to be more active, as she is aware her weight is likely contributing to her symptoms. Will also swab to rule out alpha 1 antitrypsin deficiency. All questions answered and patient is in agreement of plan. Will follow up in 3 months to review response to inhaler or sooner if needed. Coding Level of Care Code Est Pt Level 4 (19572) Diagnoses COPD (chronic obstructive pulmonary disease) J44.9 Obesity (BMI 30-39.9) E66.9
== END 2023-07-24 11:22 | disposition home or self-care (01) ==
PROVIDERS: PCP Internal Medicine; Visit Provider Nurse Practitioner Family
DX: J44.9 Chronic obstructive pulmonary disease, unspecified (principal); E66.9 Obesity, unspecified
CPT/HCPCS: 99214

== ENCOUNTER → 2023-07-24 10:36 | Outpatient (BNVA) | payer OTHER, SELFPAY | PROVIDERS: PCP Internal Medicine; Visit Provider Nurse Practitioner Family | DX: J44.9 Chronic obstructive pulmonary disease, unspecified (principal); E66.9 Obesity, unspecified; Z68.39 Body mass index [BMI] 39.0-39.9, adult | CPT/HCPCS: 99212 ==

== ENCOUNTER 2023-08-22 09:35 | Emergency (ER) | payer OTHER, SELFPAY ==
--- NOTE | ~2023-08-22 | XR_ITS ---
EXAMINATION: XR CHEST CLINICAL INFORMATION: Chest pain. COMPARISON: 07/10/2023 TECHNIQUE: 2 views of the chest were obtained. FINDINGS: The lungs are well expanded. No focal consolidation. No pleural effusion. Cardiac silhouette is unchanged. XR/XR chest 2V IMPRESSION: No acute abnormality.
--- NOTE | 2023-08-22 09:36 | ECG_ITS ---
Test Reason : cp Blood Pressure : / mmHG Vent. Rate : 066 BPM Atrial Rate : 066 BPM P-R Int : 140 ms QRS Dur : 082 ms QT Int : 382 ms P-R-T Axes : 037 030 006 degrees QTc Int : 400 ms Normal sinus rhythm Normal ECG When compared with ECG of 10-JUL-2023 08:36, No significant change was found Referred By: Generic ED Physician Electronically Signed By:Tristin Ortiz
[2023-08-22 09:43] VITALS: BP 138/68; PULSE 66; RESP 18; TEMP 35.8; O2SAT 100; BMI 40.2
[2023-08-22 10:06] LABS: MANUAL DIFF FLAG NO
[2023-08-22 10:10] LABS: Basophils Percent Auto 0.7 % (0-2); Eosinophils Absolute Auto 0.1 X10*3/uL (0.0-0.4); Eosinophils Percent Auto 2.6 % (0-4); Hematocrit 30.4 % (37.0-47.0); Hemoglobin 9.6 g/dl (12.0-16.0); Imm Gran Abs Auto 0.02 X10*3/uL (0.00-0.03); Imm Gran Pct Auto 0.4 % (0.0-0.4); Lymphocytes Absolute Auto 1.9 X10*3/uL (1.2-4.9); Lymphocytes Percent Auto 35.6 % (20-40); Mean Corpuscular HGB Conc 31.6 g/dl (31.0-35.0); Mean Corpuscular Hemoglobin 25.3 pg (27.0-33.0); Mean Platelet Volume 10.6 fL (9.4-12.3); Monocytes Absolute Auto 0.6 X10*3/uL (0.1-1.2); Neutrophils Absolute Auto 2.7 x10*3/uL (2.0-8.3); Neutrophils Percent Auto 49.7 % (45-73); Platelet Count 296 X10*3/uL (160-400); Red Cell Distribution Width 15.8 % (11.0-16.0); White Blood Count 5.4 X10*3/uL (4.8-10.8)
[2023-08-22 10:28] LABS: Anion Gap 11 (12-20); Blood Urea Nitrogen 12 mg/dL (9-16); Calcium 8.6 mg/dL (8.4-10.2); Carbon Dioxide 23 mmol/L (22-29); Chloride 110 mmol/L (96-108); Creatinine Clr Calc Pharmacy 141.5; Estimated Glomerular Filt Rate > 60; Glucose Random 92 mg/dL (60-115); Potassium 3.7 mmol/L (3.3-5.1); Sodium 140 mmol/L (135-145)
[2023-08-22 10:38] LABS: Troponin-I High Sensitivity < 2.7 ng/L (<3.5-17.0)
--- NOTE | 2023-08-22 11:33 | ED_ITS ---
HPI - Chest Pain General Chief Complaint: Chest Pain Stated Complaint: chest pain Time Seen by Provider: 08/22/23 11:33 History of Present Illness HPI narrative: The patient is a 32-year-old woman with a history of hypertension and hyperlipidemia, fibromyalgia and arthritis, and multiple other past medical problems who presents for evaluation of 3 days of left-sided chest pain. She describes pain in the left chest, mostly in the upper chest. The pain extends into the left shoulder and down the left arm and is associated with a sense of numbness in the left arm and hand. She denies any activities that might have provoked any injury that could have caused the pain she seems to be experiencing. The pain is somewhat worse when she breathes and she feels mildly short of breath. She also has associated nausea. Also says that the pain extends down the left leg. Related Data Home Medications Medication Instructions Recorded Confirmed sertraline 100 mg tablet 100 mg PO DAILY 08/22/20 07/24/23 bupropion HCl 150 mg 24 hr tablet, 150 mg PO QAM 05/03/21 07/24/23 extended release norethindrone acetate 5 mg tablet mg PO 07/09/23 07/24/23 Previous Rx's Medication Instructions Recorded lancets 28 gauge (FreeStyle #100 ea 06/27/20 Lancets) FreeStyle Lite Strips (blood sugar 4 strip miscellaneous QID 30 days 07/20/20 diagnostic) #100 strips spironolactone 50 mg tablet 50 mg PO BID #60 tabs 01/05/22 hydroxyzine HCl 25 mg tablet See Rx Instructions .Route 04/04/22 .COMPLEX anxiety 30 days #180 tabs amlodipine 5 mg tablet (Norvasc) 5 mg PO DAILY #30 tabs 05/13/22 BEDSIDE COMMODE #1 ea 05/14/22 FRONT-WHEELED WALKER #1 ea 05/14/22 TUB SEAT with BACK #1 ea 05/14/22 metoclopramide HCl 5 mg tablet 5 mg PO QIDACHS #120 tabs 09/19/22 (Reglan) gabapentin 400 mg capsule 400 mg PO TID 30 days #90 caps 10/17/22 Dexilant 60 mg capsule, delayed 60 mg PO DAILY #30 caps 12/20/22 release (dexlansoprazole) [id number] 1 cap PO QID #120 caps 01/11/23 36,000-114,000-180,000 unit capsule,delay rel (Creon) linaclotide 290 mcg capsule 290 mcg PO QAM 30 days #30 caps 01/25/23 (Linzess) labetalol 100 mg tablet 100 mg PO BID 90 days #180 tabs 02/28/23 nebulizers (Compact Compressor #1 ea 02/28/23 Nebulizer) fluticasone propionate 230 2 puff inhalation Q12H #1 ea 04/17/23 mcg-salmeterol 21 mcg/actuation HFA inhaler (Advair HFA) albuterol sulfate 2.5 mg/3 mL 2.5 mg (3 mL) inhalation Q6H #75 mL 05/23/23 (0.083 %) solution for nebulization albuterol sulfate 90 mcg/actuation 2 inh inhalation Q4-6H PRN 05/23/23 breath activated powder inhaler shortness of breath or wheezing #1 ea benzonatate 100 mg capsule 100 mg PO BID PRN cough #20 caps 05/23/23 ondansetron 4 mg disintegrating 4 mg PO Q6H PRN nausea and 05/23/23 tablet vomiting #14 tabs ketorolac 10 mg tablet 10 mg PO TID PRN pain #10 tabs 05/30/23 pyridoxine (vitamin B6) 100 mg 100 mg PO DAILY 90 days #90 tabs 07/09/23 tablet cyclobenzaprine 10 mg tablet 10 mg PO TID PRN muscle spasm #7 07/12/23 tabs lidocaine 5 % topical patch 2 patch topical DAILY #30 ea 07/14/23 (Lidoderm) morphine 15 mg immediate release 15 mg PO Q6H PRN pain #20 tabs 07/14/23 tablet ferrous sulfate 325 mg (65 mg 325 mg PO DAILY #90 tabs 07/29/23 iron) tablet ibuprofen 800 mg tablet (IBU) 800 mg PO Q8H PRN pain/headaches 07/29/23 30 days #90 tabs Allergies Allergy/AdvReac Type Severity Reaction Status Date / Time amoxicillin [AMOXICILLIN] Allergy Intermediate NAUSEA & Verified 07/24/23 10:55 VOMITING, stomach pain, vomiting, stomach upset topiramate [From TOPAMAX] Allergy Intermediate TREMORS, Verified 07/24/23 10:55 nausea and vomiting latex [LATEX] Allergy Mild RASH Verified 07/24/23 10:55 medroxyprogesterone Allergy Mild RASH Verified 07/24/23 10:55 [From PROVERA] lactose Allergy bloating , Verified 07/24/23 10:55 diarrhea Review of Systems 2 Review of Systems: Yes all other systems are reviewed and are negative [facility] Past Medical History Medical History Annual physical exam Benign essential hypertension Shortness of breath Thoracic back pain Intermittent chest pain Left ear pain Neck pain Depression Atypical chest pain Tension headache Myofascial pain Sacroiliac joint pain Bilateral primary osteoarthritis of hip Polyuria Right-sided chest pain Post depression BMI 39.0-39.9,adult Pain in left lopez Hematoma of left lower extremity Trigger finger of left thumb Trigger finger of right thumb Insomnia Morbid obesity with BMI of 40.0-44.9, adult Smoker Carpal tunnel syndrome, bilateral Left leg swelling Personal history of gestational diabetes Wrist pain Obesity (BMI 30-39.9) Second trimester Supervision of other high risk , antepartum Supervision of other normal PCOS (polycystic ovarian syndrome) control counseling Migraines Vulvar cyst Lower back pain Anxiety Hyperlipemia Fibromyalgia Rheumatoid arthritis Surgical History S/P laparoscopic cholecystectomy (03/06/23) H/O tubal ligation History of hip replacement, total History of esophagogastroduodenoscopy (EGD) History of removal of cyst History of tonsillectomy and adenoidectomy Family History Family History Father Medical history unknown Mother Diabetes Hypertension Maternal Aunt Breast cancer Ovarian cancer Mental health disorder Maternal Grandmother Diabetes Hypertension Social History Social History Household Members: Spouse and Children Housing: Condominium Alcohol intake: current Alcohol intake frequency: holidays/special occasions only Patient Tobacco Use Status: Former Tobacco user Quit Date: 2.5 yrs Smoked in Last 30 Days: No e-Cigarette/Vaping Use: Never Used Second Hand Smoke Exposure: No Use of substances other than those prescribed or required for medical reasons: Yes Substance Use Type: Marijuana Advance Directives: No service: No Current occupational status: disabled Sexual orientation: Straight/Heterosexual Gender identity: Female Cognitive needs: No Hearing needs: No Vision needs: Yes Physical Exam 2 Vital Signs: Vital Signs: Last Vital Signs Temp 98.1 F 08/22/23 12:34 Pulse 62 08/22/23 12:34 Resp 15 08/22/23 12:34 BP 148/81 H 08/22/23 12:34 Pulse Ox 100 08/22/23 12:34 O2 Del Method Room Air 08/22/23 12:34 BMI result Body Mass Index 40.2 Const: Other: The patient is awake and alert. She did not appear uncomfortable or in distress in any way. HEENT: Other: Face is symmetrical. Tongue is midline. Mucous membranes moist Eyes: Other: Pupils are round equal, conjunctivae clear, extraocular movements intact Neck: Other: No JVD. No cervical adenopathy. Chest: Other: There was significant tenderness to the left upper chest wall. Palpation seems to reproduce her pain. Resp: Effort & Inspection: normal respiratory effort Auscultation: clear to auscultation bilaterally Cardio: Rate: regular rate Rhythm: regular rhythm Heart sounds: S1 normal heart sound present and S2 normal heart sound present GI: Other: Abdomen is soft and nontender Skin: Other: Skin is dry and unremarkable Neuro: Other: The patient is awake, alert, cooperative. Speech is clear. Face is symmetrical. She moves her extremities symmetrically. No focal neurological deficit Extrem: Other: The patient reports some tenderness with both calves. No asymmetry. No pitting edema. Medications Administered Discontinued Medications Generic Name Dose Route Start Last Admin Trade Name Bob PRN Reason Stop Dose Admin Acetaminophen 975 mg 08/22/23 11:39 08/22/23 12:32 Acetaminophen 325 Mg Tablet PO 08/22/23 11:40 975 mg ONCE ONE Administration Ketorolac Tromethamine 30 mg 08/22/23 11:39 08/22/23 12:32 Ketorolac Tromethamine 30 Mg/Ml Vial IM 08/22/23 11:40 30 mg ONCE ONE Administration Medical Decision Making Medical Decision Making [facility] Narrative: The patient is a 32-year-old female who complains of left-sided chest pain that radiates into the left shoulder and arm and also down the left leg. On exam she seems to have distinct left-sided chest wall tenderness. This suggests a likely musculoskeletal etiology for her discomfort. Her EKG is unremarkable and unchanged from previous EKG. She showing a sinus rhythm in the 60s. Troponin is undetectable after 3 days of discomfort. Her chest x-ray is unremarkable. That the patient has an undetectable troponin after 3 days of discomfort I think an acute coronary syndrome doubt in this 32-year-old. I would have a very low suspicion for a embolism in this patient. She has not tachycardic. Her oxygenation is normal. She does not appear short of breath in any way. I think that a chest wall etiology of her chest pain is much more likely. The patient was given a dose of IM ketorolac with improvement in her pain. She will be discharged to follow up with the regular doctor. If she feels worse she should return to the emergency room. Lab Data 08/22/23 09:55 08/22/23 09:55 Labs: Lab Results 08/22/23 Range/Units 09:55 WBC 5.4 (4.8-10.8) X10*3/uL RBC 3.80 L (4.20-5.50) X10*6/uL Hgb 9.6 L (12.0-16.0) g/dl Hct 30.4 L (37.0-47.0) % MCV 80.0 (80.0-98.0) fL MCH 25.3 L (27.0-33.0) pg MCHC 31.6 (31.0-35.0) g/dl RDW 15.8 (11.0-16.0) % Plt Count 296 (160-400) X10*3/uL MPV 10.6 (9.4-12.3) fL Immature Gran % (Auto) 0.4 (0.0-0.4) % Neut % (Auto) 49.7 (45-73) % Lymph % (Auto) 35.6 (20-40) % [place] % (Auto) 11.0 (2-11) % Eos % (Auto) 2.6 (0-4) % Baso % (Auto) 0.7 (0-2) % Lymph # (Auto) 1.9 (1.2-4.9) X10*3/uL [place] # (Auto) 0.6 (0.1-1.2) X10*3/uL Eos # (Auto) 0.1 (0.0-0.4) X10*3/uL Baso # (Auto) 0.0 (0.0-0.2) X10*3/uL Abs Immat Gran (auto) 0.02 (0.00-0.03) X10*3/uL Absolute Neuts (auto) 2.7 (2.0-8.3) x10*3/uL Absolute Nucleated RBC 0.000 (0.0-0.012) X10*3/uL Nucleated RBC % (auto) 0.0 (0.0-0.2) /100WBC Sodium 140 (135-145) mmol/L Potassium 3.7 (3.3-5.1) mmol/L Chloride 110 H (96-108) mmol/L Carbon Dioxide 23 (22-29) mmol/L Anion Gap 11 L (12-20) BUN 12 (9-16) mg/dL Creatinine 0.60 (0.5-1.4) mg/dL Estim Creat Clear Calc 141.5 Estimated GFR > 60 Random Glucose 92 (60-115) mg/dL Calcium 8.6 (8.4-10.2) mg/dL Troponin I High Sens < 2.7 (<3.5-17.0) ng/L Independent Interpretation I performed an independent interpretation of an: EKG Interpretation: EKG at 09:38 shows normal sinus rhythm at 66 beats per this is a normal EKG. No change from previous. Discharge Plan Discharge Clinical Impression: Chest pain Patient Disposition: Home, Self-Care Additional Instructions: Your testing today is very reassuring. I think your pain is much more likely related to pain from your bones and muscles and cartilage then your heart or other internal organ. This ibuprofen and/or acetaminophen as needed for discomfort. Please follow-up soon with Dr. Sherman. Return to the emergency room if you feel significantly worse. Prescriptions: No Action FreeStyle Lite Strips Strip 4 strip miscellaneous QID 30 Days Qty: 100 1RF (DME) FRONT-WHEELED WALKER See Rx Instructions .Route .MEDSUPPLY Qty: 1 0RF Rx Instructions: As directed (DME) TUB SEAT with BACK See Rx Instructions .Route .MEDSUPPLY Qty: 1 0RF Rx Instructions: As directed (DME) BEDSIDE COMMODE See Rx Instructions .Route .MEDSUPPLY Qty: 1 0RF Rx Instructions: As directed gabapentin 400 mg capsule 400 mg PO TID 30 Days Qty: 90 3RF Rx Instructions: 1 capsule Orally Three times a day Dexilant 60 mg capsule,biphase delayed releas 60 mg PO DAILY Qty: 30 6RF ferrous sulfate 325 mg (65 mg iron) tablet 325 mg PO DAILY Qty: 90 1RF ibuprofen [IBU] 800 mg tablet 800 mg PO Q8H PRN (Reason: pain/headaches) 30 Days Qty: 90 0RF Rx Instructions: Take with food amlodipine [Norvasc] 5 mg tablet 5 mg PO DAILY Qty: 30 0RF ondansetron 4 mg tablet,disintegrating 4 mg PO Q6H PRN (Reason: nausea and vomiting) Qty: 14 0RF albuterol sulfate 90 mcg/actuation aerosol powdr breath activated 2 inh inhalation Q4-6H PRN (Reason: shortness of breath or wheezing) Qty: 1 0RF albuterol sulfate 2.5 mg /3 mL (0.083 %) solution for nebulization 2.5 mg inhalation Q6H Qty: 75 0RF benzonatate 100 mg capsule 100 mg PO BID PRN (Reason: cough) Qty: 20 0RF ketorolac 10 mg tablet 10 mg PO TID PRN (Reason: pain) Qty: 10 0RF Rx Instructions: Do not use this medication with ibuprofen/Aleve/NSAIDs, only Tylenol if needed cyclobenzaprine 10 mg tablet 10 mg PO TID PRN (Reason: muscle spasm) Qty: 7 0RF lidocaine [Lidoderm] 5 % adhesive patch,medicated 2 patch topical DAILY Qty: 30 0RF Rx Instructions: leave on most painful area for up to 12 hrs morphine 15 mg tablet 15 mg PO Q6H PRN (Reason: pain) Qty: 20 0RF Rx Instructions: Partial Fill upon patient request. sertraline 100 mg tablet 100 mg PO DAILY hydroxyzine HCl 25 mg tablet See Rx Instructions .ROUTE .COMPLEX 30 Days Qty: 180 3RF Rx Instructions: 1 to 2 tablets 3 times a day as needed for anxiety; (DME) nebulizers [Compact Compressor Nebulizer] Misc See Rx Instructions .Route Qty: 1 0RF Rx Instructions: As directed labetalol 100 mg tablet 100 mg PO BID 90 Days Qty: 180 1RF (DME) lancets [FreeStyle Lancets] 28 gauge misc See Rx Instructions .ROUTE .MEDSUPPLY Qty: 100 1RF Rx Instructions: 4 times/day bupropion HCl 150 mg tablet extended release 24 hr 150 mg PO QAM spironolactone 50 mg tablet 50 mg PO BID Qty: 60 5RF metoclopramide HCl [Reglan] 5 mg tablet 5 mg PO QIDACHS Qty: 120 6RF norethindrone acetate 5 mg tablet PO pyridoxine (vitamin B6) 100 mg tablet 100 mg PO DAILY 90 Days Qty: 90 1RF Creon 36,000-114,000- 180,000 unit capsule,delayed release(DR/EC) 1 cap PO QID Qty: 120 6RF Rx Instructions: administer with meals and/or snacks Linzess 290 mcg capsule 290 mcg PO QAM 30 Days Qty: 30 6RF fluticasone propion-salmeterol [Advair HFA] 230-21 mcg/actuation HFA aerosol inhaler 2 puff inhalation Q12H Qty: 1 3RF Referrals: Jarrod Sherman MD [Primary Care Provider] - (Chest pain, suspect chest wall pain ) Interventions: ED Discharge Assessment Last Done: 08/22/23 13:58 Discharge Date/Time: 08/22/23 13:50
[2023-08-22] MEDS: Ketorolac Tromethamine 30 MG/ML VIAL IM (12:32)
[2023-08-22] MEDS: Acetaminophen 325 MG TABLET 975 MG PO (12:32)
[2023-08-22 12:34] VITALS: BP 148/81; PULSE 62; RESP 15; TEMP 36.7; O2SAT 100
== END 2023-08-22 13:50 | disposition home or self-care (01) ==
PROVIDERS: Emergency Provider Emergency Medicine; PCP Internal Medicine
DX: R07.89 Other chest pain (principal); M25.512 Pain in left shoulder; I10 Essential (primary) hypertension; Z79.899 Other long term (current) drug therapy; Z87.891 Personal history of nicotine dependence
CPT/HCPCS: 36415; 71046; 80048; 84484; 85025; 93005; 96372; 99284; 99285; J1885

== ENCOUNTER → 2023-08-22 09:36 | Outpatient (BNV) | payer OTHER, SELFPAY | PROVIDERS: Emergency Provider Emergency Medicine; PCP Internal Medicine; Visit Provider Internal Medicine Cardiovascular Disease | DX: R07.9 Chest pain, unspecified (principal) | CPT/HCPCS: 93010 ==

== ENCOUNTER 2023-08-31 10:49 | Emergency (ER) | payer OTHER, SELFPAY ==
--- NOTE | ~2023-08-31 | XR_ITS ---
EXAMINATION: XR CHEST CLINICAL INFORMATION: Chest pain COMPARISON: 08/22/2023 TECHNIQUE: AP view of the chest was obtained. FINDINGS: No significant abnormality is noted involving the heart, lungs, mediastinum, bony thorax or soft tissues. XR/XR chest 1V IMPRESSION: Unremarkable examination.
--- NOTE | 2023-08-31 10:51 | ECG_ITS ---
Test Reason : CHEST PAIN Blood Pressure : / mmHG Vent. Rate : 067 BPM Atrial Rate : 067 BPM P-R Int : 138 ms QRS Dur : 088 ms QT Int : 392 ms P-R-T Axes : 012 030 -05 degrees QTc Int : 414 ms Normal sinus rhythm Normal ECG When compared with ECG of 22-AUG-2023 09:38, No significant change was found Referred By: Generic ED Physician Electronically Signed By:LEANA ÁLVAREZ MD
[2023-08-31 11:12] VITALS: BP 146/78; PULSE 67; RESP 18; TEMP 36.3; O2SAT 100; BMI 40.3
--- NOTE | 2023-08-31 11:13 | ED.GENADULT ---
HPI - General Adult General Chief complaint: Upper Respiratory Symptoms Stated complaint: chest pain high bp Time Seen by Provider: 08/31/23 11:49 Source: patient, RN notes reviewed and old records reviewed Mode of arrival: ambulatory Limitations: no limitations History of Present Illness HPI narrative: 32 year old female with pmhx significant for asthma/COPD, HTN, HDL, rheumatoid arthritis, PCOS, anxiety, obesity, and gestational diabetes presents to the ED today for evaluation of right sided chest pain and shortness of breath beginning x2 days. Chest pain has been constant since onset and worsens with deep inspiration. She feels short of breath which she states may be due to me smoking marijuana . Her contact acid plant operator helper advised her to stop smoking. She reports 5 days without smoking marijuana but began smoking it again 3 days ago. No current or previous history of smoking tobacco. Admits to taking her blood pressure on waking this morning and noted it to be elevated at 145/113. She then took her 100mg labetalol and her BP decreased to 130s/70s. She also uses two inhalations of advair in the morning which has been spiking her blood pressure. States she has mentioned this to her contact acid plant operator helper recently however the medication was not changed or discontinued. Denies fever, sore throat, palpitations, dyspnea, calf pain/ swelling, N/V. Denies recent travel or long car rides. Denies OCP use. No known sick contacts however her children are in daycare. Admits to previously smoking tobacco, quit 2 and half years ago. Related Data Home Medications Medication Instructions Recorded Confirmed sertraline 100 mg tablet 100 mg PO DAILY 08/22/20 07/24/23 bupropion HCl 150 mg 24 hr tablet, 150 mg PO QAM 05/03/21 07/24/23 extended release norethindrone acetate 5 mg tablet mg PO 07/09/23 07/24/23 Previous Rx's Medication Instructions Recorded lancets 28 gauge (FreeStyle #100 ea 06/27/20 Lancets) FreeStyle Lite Strips (blood sugar 4 strip miscellaneous QID 30 days 07/20/20 diagnostic) #100 strips spironolactone 50 mg tablet 50 mg PO BID #60 tabs 01/05/22 hydroxyzine HCl 25 mg tablet See Rx Instructions .Route 04/04/22 .COMPLEX anxiety 30 days #180 tabs amlodipine 5 mg tablet (Norvasc) 5 mg PO DAILY #30 tabs 05/13/22 BEDSIDE COMMODE #1 ea 05/14/22 FRONT-WHEELED WALKER #1 ea 05/14/22 TUB SEAT with BACK #1 ea 05/14/22 metoclopramide HCl 5 mg tablet 5 mg PO QIDACHS #120 tabs 09/19/22 (Reglan) gabapentin 400 mg capsule 400 mg PO TID 30 days #90 caps 10/17/22 Dexilant 60 mg capsule, delayed 60 mg PO DAILY #30 caps 12/20/22 release (dexlansoprazole) [id number] 1 cap PO QID #120 caps 01/11/23 36,000-114,000-180,000 unit capsule,delay rel (Creon) linaclotide 290 mcg capsule 290 mcg PO QAM 30 days #30 caps 01/25/23 (Linzess) labetalol 100 mg tablet 100 mg PO BID 90 days #180 tabs 02/28/23 nebulizers (Compact Compressor #1 ea 02/28/23 Nebulizer) fluticasone propionate 230 2 puff inhalation Q12H #1 ea 04/17/23 mcg-salmeterol 21 mcg/actuation HFA inhaler (Advair HFA) albuterol sulfate 2.5 mg/3 mL 2.5 mg (3 mL) inhalation Q6H #75 mL 05/23/23 (0.083 %) solution for nebulization albuterol sulfate 90 mcg/actuation 2 inh inhalation Q4-6H PRN 05/23/23 breath activated powder inhaler shortness of breath or wheezing #1 ea benzonatate 100 mg capsule 100 mg PO BID PRN cough #20 caps 05/23/23 ondansetron 4 mg disintegrating 4 mg PO Q6H PRN nausea and 05/23/23 tablet vomiting #14 tabs ketorolac 10 mg tablet 10 mg PO TID PRN pain #10 tabs 05/30/23 pyridoxine (vitamin B6) 100 mg 100 mg PO DAILY 90 days #90 tabs 07/09/23 tablet cyclobenzaprine 10 mg tablet 10 mg PO TID PRN muscle spasm #7 07/12/23 tabs lidocaine 5 % topical patch 2 patch topical DAILY #30 ea 07/14/23 (Lidoderm) morphine 15 mg immediate release 15 mg PO Q6H PRN pain #20 tabs 07/14/23 tablet ferrous sulfate 325 mg (65 mg 325 mg PO DAILY #90 tabs 07/29/23 iron) tablet ibuprofen 800 mg tablet (IBU) 800 mg PO Q8H PRN pain/headaches 07/29/23 30 days #90 tabs prednisone 20 mg tablet 20 mg PO DAILY 5 days #5 tabs 08/31/23 Allergies Allergy/AdvReac Type Severity Reaction Status Date / Time amoxicillin [AMOXICILLIN] Allergy Intermediate NAUSEA & Verified 08/31/23 11:16 VOMITING, stomach pain, vomiting, stomach upset topiramate [From TOPAMAX] Allergy Intermediate TREMORS, Verified 08/31/23 11:16 nausea and vomiting latex [LATEX] Allergy Mild RASH Verified 08/31/23 11:16 medroxyprogesterone Allergy Mild RASH Verified 08/31/23 11:16 [From PROVERA] lactose Allergy bloating , Verified 08/31/23 11:16 diarrhea Review of Systems Review of Systems: Constitutional: No fever, chills, fatigue, night sweats, weight changes ENT/Mouth: No ear pain, hearing loss, nasal congestion, sinus pain, rhinorrhea, sore throat Eyes: No eye pain, swelling, redness, vision changes, discharge Cardio: No palpitations, ACEVEDO, orthopnea, peripheral edema, +chest pain Pulm: No cough, sputum, wheezing, dyspnea, hemoptysis, +SOB GI: No nausea, vomiting, hematemesis, abdominal pain, diarrhea, constipation, hematochezia, melena : No irregular bleeding, dysuria, frequency, urgency, hesitancy, hematuria, flank pain, urinary flow changes, urinary incontinence or retention MSK: No back pain, neck pain, joint pain, myalgias Skin: No lesions, rashes Neuro: No weakness, numbness, paresthesias, LOC, dizziness, headache Psych: No anxiety/panic, depression, SI/HI, AH/VH All other systems reviewed and are negative. [facility] Past Medical History Attestation statement: The following information was validated with the patient. Source: old records reviewed and nursing notes reviewed Medical History Annual physical exam Benign essential hypertension Shortness of breath Thoracic back pain Intermittent chest pain Left ear pain Neck pain Depression Atypical chest pain Tension headache Myofascial pain Sacroiliac joint pain Bilateral primary osteoarthritis of hip Polyuria Right-sided chest pain Post depression BMI 39.0-39.9,adult Pain in left lopez Hematoma of left lower extremity Trigger finger of left thumb Trigger finger of right thumb Insomnia Morbid obesity with BMI of 40.0-44.9, adult Smoker Carpal tunnel syndrome, bilateral Left leg swelling Personal history of gestational diabetes Wrist pain Obesity (BMI 30-39.9) Second trimester Supervision of other high risk , antepartum Supervision of other normal PCOS (polycystic ovarian syndrome) control counseling Migraines Vulvar cyst Lower back pain Anxiety Hyperlipemia Fibromyalgia Rheumatoid arthritis Surgical History S/P laparoscopic cholecystectomy (03/06/23) H/O tubal ligation History of hip replacement, total History of esophagogastroduodenoscopy (EGD) History of removal of cyst History of tonsillectomy and adenoidectomy Family History Family History Father Medical history unknown Mother Diabetes Hypertension Maternal Aunt Breast cancer Ovarian cancer Mental health disorder Maternal Grandmother Diabetes Hypertension Social History Social History Household Members: Spouse and Children Housing: Condominium Alcohol intake: current Alcohol intake frequency: holidays/special occasions only Patient Tobacco Use Status: Former Tobacco user Quit Date: 2.5 yrs e-Cigarette/Vaping Use: Never Used Second Hand Smoke Exposure: No Substance Use Type: Marijuana Advance Directives: No Advance Directives Information Provided: No service: No Current occupational status: disabled Sexual orientation: Straight/Heterosexual Gender identity: Female Cognitive needs: No Hearing needs: No Vision needs: Yes Physical Exam ED Vital Signs: Vital Signs - 24 hr 08/31/23 11:12 08/31/23 12:53 08/31/23 13:51 Temperature 97.4 F 98.1 F Pulse Rate 67 71 63 Respiratory Rate 18 23 H 18 Blood Pressure 146/78 H 140/78 H Pulse Oximetry 100 Oxygen Delivery Method Room Air BMI result Body Mass Index 40.3 Hypertensive, vitals otherwise wnl Const General: cooperative, healthy appearing, comfortable and no acute distress Orientation/consciousness: patient oriented x3 Limitations: no limitations HENMT Other: posterior oropharynx without erythema or edema, no tonsillar swelling or exudates, uvula midline Head: Yes normal to inspection, Yes normocephalic and Yes atraumatic Eyes General: appearance normal, both eyes and all related structures Pupils: Equal, round and reactive pupils present Neck Neck: Yes normal visual inspection, Yes no lymphadenopathy and Yes no JVD Chest Chest palpation & inspection: normal inspection of the chest, normal palpation of entire chest wall and no tenderness Resp Other: + Decreased breath sounds bilaterally, no tachypnea and, no expiratory wheeze/rhonchi/crackles. SpO2<100> speaking in complete sentences Effort & Inspection: no nasal flaring, no tripod positioning and no use of accessory muscles Cardio Rate: regular rate Rhythm: regular rhythm GI Inspection: Yes normal to inspection Skin General skin exam: no rashes or lesions noted Neuro General: patient oriented x3 and gait normal Cranial nerves: Yes Equal, round and reactive pupils present Extrem General: Yes normal to inspection and Yes capillary refill normal Course Course Course Narrative: This is a rapid medical exam: Additional HPI, ROS, PE not included below will be deferred to primary provider. Patient is a 32-year-old female with complaint of chest pain, shortness of breath, chills since last night. States BP was high, reports 145/113 at home. States pain radiates from chest/epigastric area to right upper back. Nausea and vomiting yesterday. BP 146/78 in triage. Here on 08/21 for same. Plan: EKG, CXR, labs, viral swabs Reevaluation(s) Reevaluation #1: 1345-- CBC without leukocytosis. No left shift. Chronic anemia when compared to priors. Chemistry without acute electrolyte abnormality requiring intervention. Troponin undetectable > given 48 hours of symptoms and low suspicion for ACS, will not repeat for delta. EKG showing normal sinus rhythm at a rate of 67 beats per minute, QT 392, QTC 414, no acute ischemic changes or ST elevations. Chest x-ray unremarkable. No signs of pneumonia or effusion. On re-evaluation, patient reports improvement with breathing treatment and decadron. > discussed all workup results with patient. I have suspicion for possible exacerbation of COPD vs pleuritis secondary to marijuana use. I do not suspect ACS or arrhythmia at this time. Will send patient home with small course of steroids with pulmonology follow up. Patient has remained stable throughout ED visit today. Discussed worrisome signs and symptoms and when to return to the ED. All questions answered at this time. Patient is agreeable with disposition and stable for discharge. Medications Administered Discontinued Medications Generic Name Dose Route Start Last Admin Trade Name Bob PRN Reason Stop Dose Admin Albuterol Sulfate 2.5 mg/ 0 mg 08/31/23 12:47 08/31/23 12:51 Albuterol/Ipratropium 3 ml INHALE 08/31/23 12:48 5 dose ONCE ONE Administration Dexamethasone Sodium Phosphate 8 mg 08/31/23 12:13 08/31/23 12:25 Dexamethasone Sod Phosphate 4 Mg/Ml Vial IVPUSH 08/31/23 12:14 8 mg ONCE ONE Administration Medical Decision Making Medical Decision Making [facility] Narrative: 32 year old female with pmhx significant for asthma/COPD, HTN, HDL, rheumatoid arthritis, PCOS, anxiety, obesity, and gestational diabetes presents to the ED today for evaluation of right sided chest pain and shortness of breath beginning x2 days. Patient slightly hypertensive, vitals otherwise wnl. Not hypoxic. Lungs with decreased BS b/l, no wheezes, rhonchi or crackles. RRR. No JVD or peripheral edema. No calf tenderness b/l. Differential diagnosis includes COPD exacerbation, asthma exacerbation, viral syndrome, pneumonia, pleuritis, costochondritis, marijuana use. less likely asc, arrhythmia, PE, pneumothorax. Plan for labs, ekg, chest xr, serology, breathing treatment, and re-evaluation. Differential Diagnosis Differential Diagnoses: The differential diagnosis associated with the presentation includes as above. Admission/Observation Not indicated. Lab Data [facility] Lab Attestation statement: I reviewed the patient's lab results. as above. 08/31/23 11:06 08/31/23 11:06 Labs: Lab Results 08/31/23 08/31/23 Range/Units 11:06 11:29 WBC 5.2 (4.8-10.8) X10*3/uL RBC 4.04 L (4.20-5.50) X10*6/uL Hgb 10.4 L (12.0-16.0) g/dl Hct 33.9 L (37.0-47.0) % MCV 83.9 (80.0-98.0) fL MCH 25.7 L (27.0-33.0) pg MCHC 30.7 L (31.0-35.0) g/dl RDW 15.9 (11.0-16.0) % Plt Count 190 D (160-400) X10*3/uL MPV 11.8 (9.4-12.3) fL Immature Gran % (Auto) 0.8 H (0.0-0.4) % Neut % (Auto) 61.3 (45-73) % Lymph % (Auto) 26.5 (20-40) % Sterling % (Auto) 7.3 (2-11) % Eos % (Auto) 3.3 (0-4) % Baso % (Auto) 0.8 (0-2) % Lymph # (Auto) 1.4 (1.2-4.9) X10*3/uL Sterling # (Auto) 0.4 (0.1-1.2) X10*3/uL Eos # (Auto) 0.2 (0.0-0.4) X10*3/uL Baso # (Auto) 0.0 (0.0-0.2) X10*3/uL Abs Immat Gran (auto) 0.04 H (0.00-0.03) X10*3/uL Absolute Neuts (auto) 3.2 (2.0-8.3) x10*3/uL Absolute Nucleated RBC 0.000 (0.0-0.012) X10*3/uL Nucleated RBC % (auto) 0.0 (0.0-0.2) /100WBC Smear Tech's Comments VERIFIED Sodium 139 (135-145) mmol/L Potassium 4.1 (3.3-5.1) mmol/L Chloride 111 H (96-108) mmol/L Carbon Dioxide 19 L (22-29) mmol/L Anion Gap 13 (12-20) BUN 7 L (9-16) mg/dL Creatinine 0.67 (0.5-1.4) mg/dL Estim Creat Clear Calc 127.0 Estimated GFR > 60 Random Glucose 150 H (60-115) mg/dL Calcium 8.7 (8.4-10.2) mg/dL Magnesium 1.9 (1.6-2.6) mg/dL Total Bilirubin 0.3 (0.0-1.0) mg/dL AST 14 (5-31) U/L ALT 13 (0-31) U/L Alkaline Phosphatase 77 (39-117) U/L Troponin I High Sens < 2.7 (<3.5-17.0) ng/L Total Protein 6.9 (6.5-8.0) g/dL Albumin 3.8 (3.5-5.0) g/dL Lipase 16 (8-78) U/L Beta HCG, Quant < 2 mIU/mL Influenza Type A (PCR) NEGATIVE (Negative) Influenza Type B (PCR) NEGATIVE (Negative) RSV RNA Qual (PCR) NEGATIVE (Negative) SARS-CoV-2 RNA (RT-PCR) NEGATIVE (Negative) Independent Interpretation I performed an independent interpretation of an: EKG and Plain X-Ray Interpretation: EKG showing normal sinus rhythm with a rate of 67 bpm, QT392, QTC 414, no acute ischemic changes or ST elevations. I have personally interpreted chest xr and agree with radiologist's interpretation. Radiology Impression Discussion of test interpretation with radiology: I have reviewed the radiologist's reading. Radiologist Impression: EXAMINATION: XR CHEST CLINICAL INFORMATION: Chest pain COMPARISON: 08/22/2023 TECHNIQUE: AP view of the chest was obtained. FINDINGS: No significant abnormality is noted involving the heart, lungs, mediastinum, bony thorax or soft tissues. XR/XR chest 1V IMPRESSION: Unremarkable examination. External Record Review External record reviewed: Inpatient record, Office record, Outpatient record, Prior outpatient labs, Prior outpatient radiology, Primary care record and Outside ED record Prescription Management I considered prescription management with: Other (steroid) Chronic Conditions Patient?s care impacted by: Hypertension and Other (asthma/copd) Social Determinants Patient?s care significantly limited by Social Determinants of Health including: Other Social Determinant of Health Critical Care Time Critical Care Time Critical Care Time: Yes Total Critical Care Time: 35 Attestation: Critical care time in the amount of 35 minutes has been provided to the patient in terms of direct patient care, frequent reevaluation during breathing treatment, consultation with RT, review and interpretation of medical data and results, and management of potentially life-threatening conditions. This is all outside of any medical procedures. Discharge Plan Discharge Clinical Impression: COPD with acute exacerbation Patient Disposition: Home, Self-Care Instructions: COPD (Chronic Obstructive Pulmonary Disease) (ED) Additional Instructions: Your lab work today is reassuring. Your EKG is normal. Your chest xray is normal. You were given a dose of steroids and albuterol treatment in ED. You tested negative for covid, flu, rsv. Please follow up with your contact acid plant operator helper this week regarding advair prescription and your elevated BP. STOP SMOKING MARIJUANA. THIS IS HARMFUL TO YOUR HEALTH AND CAN WORSEN YOUR SYMPTOMS. Follow up with PCP as needed. Return with new or worsening symptoms. In the case of an emergency call 911. Prescriptions: New prednisone 20 mg tablet 20 mg PO DAILY 5 Days Qty: 5 0RF No Action FreeStyle Lite Strips Strip 4 strip miscellaneous QID 30 Days Qty: 100 1RF (DME) FRONT-WHEELED WALKER See Rx Instructions .Route .MEDSUPPLY Qty: 1 0RF Rx Instructions: As directed (DME) TUB SEAT with BACK See Rx Instructions .Route .MEDSUPPLY Qty: 1 0RF Rx Instructions: As directed (DME) BEDSIDE COMMODE See Rx Instructions .Route .MEDSUPPLY Qty: 1 0RF Rx Instructions: As directed gabapentin 400 mg capsule 400 mg PO TID 30 Days Qty: 90 3RF Rx Instructions: 1 capsule Orally Three times a day Dexilant 60 mg capsule,biphase delayed releas 60 mg PO DAILY Qty: 30 6RF ferrous sulfate 325 mg (65 mg iron) tablet 325 mg PO DAILY Qty: 90 1RF ibuprofen [IBU] 800 mg tablet 800 mg PO Q8H PRN (Reason: pain/headaches) 30 Days Qty: 90 0RF Rx Instructions: Take with food amlodipine [Norvasc] 5 mg tablet 5 mg PO DAILY Qty: 30 0RF ondansetron 4 mg tablet,disintegrating 4 mg PO Q6H PRN (Reason: nausea and vomiting) Qty: 14 0RF albuterol sulfate 90 mcg/actuation aerosol powdr breath activated 2 inh inhalation Q4-6H PRN (Reason: shortness of breath or wheezing) Qty: 1 0RF albuterol sulfate 2.5 mg /3 mL (0.083 %) solution for nebulization 2.5 mg inhalation Q6H Qty: 75 0RF benzonatate 100 mg capsule 100 mg PO BID PRN (Reason: cough) Qty: 20 0RF ketorolac 10 mg tablet 10 mg PO TID PRN (Reason: pain) Qty: 10 0RF Rx Instructions: Do not use this medication with ibuprofen/Aleve/NSAIDs, only Tylenol if needed cyclobenzaprine 10 mg tablet 10 mg PO TID PRN (Reason: muscle spasm) Qty: 7 0RF lidocaine [Lidoderm] 5 % adhesive patch,medicated 2 patch topical DAILY Qty: 30 0RF Rx Instructions: leave on most painful area for up to 12 hrs morphine 15 mg tablet 15 mg PO Q6H PRN (Reason: pain) Qty: 20 0RF Rx Instructions: Partial Fill upon patient request. sertraline 100 mg tablet 100 mg PO DAILY hydroxyzine HCl 25 mg tablet See Rx Instructions .ROUTE .COMPLEX 30 Days Qty: 180 3RF Rx Instructions: 1 to 2 tablets 3 times a day as needed for anxiety; (DME) nebulizers [Compact Compressor Nebulizer] Misc See Rx Instructions .Route Qty: 1 0RF Rx Instructions: As directed labetalol 100 mg tablet 100 mg PO BID 90 Days Qty: 180 1RF (DME) lancets [FreeStyle Lancets] 28 gauge misc See Rx Instructions .ROUTE .MEDSUPPLY Qty: 100 1RF Rx Instructions: 4 times/day bupropion HCl 150 mg tablet extended release 24 hr 150 mg PO QAM spironolactone 50 mg tablet 50 mg PO BID Qty: 60 5RF metoclopramide HCl [Reglan] 5 mg tablet 5 mg PO QIDACHS Qty: 120 6RF norethindrone acetate 5 mg tablet PO pyridoxine (vitamin B6) 100 mg tablet 100 mg PO DAILY 90 Days Qty: 90 1RF Creon 36,000-114,000- 180,000 unit capsule,delayed release(DR/EC) 1 cap PO QID Qty: 120 6RF Rx Instructions: administer with meals and/or snacks Linzess 290 mcg capsule 290 mcg PO QAM 30 Days Qty: 30 6RF fluticasone propion-salmeterol [Advair HFA] 230-21 mcg/actuation HFA aerosol inhaler 2 puff inhalation Q12H Qty: 1 3RF Referrals: Jarrod Sherman MD [Primary Care Provider] - Stand Alone Forms: Work/School Release Interventions: ED Discharge Assessment Last Done: 08/31/23 13:51 Discharge Date/Time: 08/31/23 13:51
[2023-08-31 11:28] LABS: Basophils Percent Auto 0.8 % (0-2); Eosinophils Absolute Auto 0.2 X10*3/uL (0.0-0.4); Eosinophils Percent Auto 3.3 % (0-4); Hematocrit 33.9 % (37.0-47.0); Hemoglobin 10.4 g/dl (12.0-16.0); Imm Gran Abs Auto 0.04 X10*3/uL (0.00-0.03); Imm Gran Pct Auto 0.8 % (0.0-0.4); Lymphocytes Absolute Auto 1.4 X10*3/uL (1.2-4.9); Lymphocytes Percent Auto 26.5 % (20-40); MANUAL DIFF FLAG SCAN; Mean Corpuscular HGB Conc 30.7 g/dl (31.0-35.0); Mean Corpuscular Hemoglobin 25.7 pg (27.0-33.0); Mean Corpuscular Volume 83.9 fL (80.0-98.0); Monocytes Absolute Auto 0.4 X10*3/uL (0.1-1.2); Monocytes Percent Auto 7.3 % (2-11); Neutrophils Absolute Auto 3.2 x10*3/uL (2.0-8.3); Neutrophils Percent Auto 61.3 % (45-73); PLT CLUMP 1; Red Blood Count 4.04 X10*6/uL (4.20-5.50); Red Cell Distribution Width 15.9 % (11.0-16.0); SCAN SMEAR FLAG 1
[2023-08-31 11:30] LABS: Alanine Aminotransferase 13 U/L (0-31); Albumin Level 3.8 g/dL (3.5-5.0); Alkaline Phosphatase 77 U/L (39-117); Anion Gap 13 (12-20); Aspartate Amino Transferase 14 U/L (5-31); Bilirubin Total 0.3 mg/dL (0.0-1.0); Blood Urea Nitrogen 7 mg/dL (9-16); Calcium 8.7 mg/dL (8.4-10.2); Carbon Dioxide 19 mmol/L (22-29); Chloride 111 mmol/L (96-108); Estimated Glomerular Filt Rate > 60; Glucose Random 150 mg/dL (60-115); Potassium 4.1 mmol/L (3.3-5.1); Sodium 139 mmol/L (135-145); Total Protein 6.9 g/dL (6.5-8.0)
[2023-08-31 11:31] LABS: White Blood Count 5.2 X10*3/uL (4.8-10.8)
[2023-08-31 11:38] LABS: Troponin-I High Sensitivity < 2.7 ng/L (<3.5-17.0)
[2023-08-31 12:00] LABS: HCG Quantitative < 2 mIU/mL
[2023-08-31 12:02] LABS: Mean Platelet Volume 11.8 fL (9.4-12.3); Platelet Count 190 X10*3/uL (160-400)
[2023-08-31 12:03] LABS: SLIDE REVIEW VERIFIED
[2023-08-31 12:18] LABS: Influenza A PCR NEGATIVE (Negative); Influenza B PCR NEGATIVE (Negative); Resp Syncy Virus RNA Qual PCR NEGATIVE (Negative); SARS COV2 PCR INHOUSE NEGATIVE (Negative)
--- NOTE | 2023-08-31 12:22 | PC.NURSE ---
per DUSTY Felipe give decadron PO with juice
[2023-08-31] MEDS: dexAMETHasone sod phosphate 4 MG/ML VIAL 8 MG IVPUSH (12:25)
[2023-08-31] MEDS: Albuterol Sulfate 2.5 MG, Albuterol/Iprat 2.5/0.5MG 3 ML 3 ML INHALE (12:51)
[2023-08-31 12:53] VITALS: PULSE 71; RESP 23; O2SAT 100
[2023-08-31 13:10] LABS: Lipase 16 U/L (8-78); Magnesium 1.9 mg/dL (1.6-2.6)
[2023-08-31 13:51] VITALS: BP 140/78; PULSE 63; RESP 18; TEMP 36.7
== END 2023-08-31 13:51 | disposition home or self-care (01) ==
PROVIDERS: Physician Assistant Medical; Registered Nurse Emergency; Emergency Provider Emergency Medicine; PCP Internal Medicine
DX: J44.1 Chronic obstructive pulmonary disease with (acute) exacerbation (principal); R06.02 Shortness of breath; R07.9 Chest pain, unspecified; R68.83 Chills (without fever); D64.9 Anemia, unspecified; Z79.899 Other long term (current) drug therapy
CPT/HCPCS: 0241U; 36415; 71045; 80053; 83690; 83735; 84484; 84702; 85025; 93005; 94640; 96374; 99284; J1100

== ENCOUNTER → 2023-08-31 10:51 | Outpatient (BNV) | payer OTHER, SELFPAY | PROVIDERS: Emergency Provider Emergency Medicine; PCP Internal Medicine; Visit Provider Internal Medicine Cardiovascular Disease | DX: R07.9 Chest pain, unspecified (principal) | CPT/HCPCS: 93010 ==

== ENCOUNTER 2023-09-10 09:57 | Outpatient (AMB) | payer OTHER, SELFPAY ==
--- NOTE | 2023-09-09 19:58 | MHC.OFFVIS ---
Intake Vital Signs 09/10/23 10:37 BP 136/80 Blood Pressure Location Rt brachial Position Sitting Pulse 96 Pulse Source Pulse Oximeter Pulse Oximetry (%) 100 Oxygen Delivery Method Room Air Intake Visit Reasons: breathing issues Machine Programmer Required: No Millinery Salesperson: Millinery Salesperson offered & declined Accompanied by: Self / Same As Patient Allergies amoxicillin [AMOXICILLIN] Allergy (Intermediate, Verified 09/10/23 10:39) NAUSEA & VOMITING, stomach pain, vomiting, stomach upset topiramate [From TOPAMAX] Allergy (Intermediate, Verified 09/10/23 10:39) TREMORS, nausea and vomiting latex [LATEX] Allergy (Mild, Verified 09/10/23 10:39) RASH medroxyprogesterone [From PROVERA] Allergy (Mild, Verified 09/10/23 10:39) RASH lactose Allergy (Verified 09/10/23 10:39) bloating , diarrhea HPI breathing issues HPI Details Gabriella is a very pleasant 32-year-old female, never tobacco smoker, with underlying COPD, rheumatoid arthritis and fibromyalgia. Patient also with anemia and can not tolerate oral iron, plan was to start iron infusions through PCP/hematology. Today she presents for an ED follow up.She was evaluated in the ED on 08/30 for COPD exacerbation, treated with steroids. She feels as though she is back to baseline denies dyspnea, wheezing or chest tightness. She has not had to use her nebulizer since discharge. She was reportedly told to discuss supplemental oxygen with our office. She was noted to be hypertensive and there was a question of Advair contributing to this. She was switched over to symbicort and has been monitoring her bp regularly, with normal readings. Of note, she has reported productive cough over the last two days with green sputum. Denies fever, chills or sick contacts. routine follow up. [facility] Medical History Annual physical exam Benign essential hypertension Shortness of breath Thoracic back pain Intermittent chest pain Left ear pain Neck pain Depression Atypical chest pain Tension headache Myofascial pain Sacroiliac joint pain Bilateral primary osteoarthritis of hip Polyuria Right-sided chest pain Post depression BMI 39.0-39.9,adult Pain in left lopez Hematoma of left lower extremity Trigger finger of left thumb Trigger finger of right thumb Insomnia Morbid obesity with BMI of 40.0-44.9, adult Smoker Carpal tunnel syndrome, bilateral Left leg swelling Personal history of gestational diabetes Wrist pain Obesity (BMI 30-39.9) Second trimester Supervision of other high risk , antepartum Supervision of other normal PCOS (polycystic ovarian syndrome) control counseling Migraines Vulvar cyst Lower back pain Anxiety Hyperlipemia Fibromyalgia Rheumatoid arthritis Surgical History S/P laparoscopic cholecystectomy (03/06/23) H/O tubal ligation History of hip replacement, total History of esophagogastroduodenoscopy (EGD) History of removal of cyst History of tonsillectomy and adenoidectomy Family History Father Medical history unknown Mother Diabetes Hypertension Maternal Aunt Breast cancer Ovarian cancer Mental health disorder Maternal Grandmother Diabetes Hypertension Social History (Updated 09/10/23 @ 10:39 by Esthela Lipscomb LPN) Household Members: Spouse and Children Housing: Condominium Alcohol intake: current Alcohol intake frequency: holidays/special occasions only Patient Tobacco Use Status: Former Tobacco user Quit Date: 2.5 yrs Smoked in Last 30 Days: No e-Cigarette/Vaping Use: Never Used Second Hand Smoke Exposure: No Substance Use Type: Marijuana service: No Current occupational status: disabled Sexual orientation: Straight/Heterosexual Gender identity: Female Cognitive needs: No Hearing needs: No Vision needs: Yes Female Reproductive History Menstrual Age of Menarche: 8 Review of Systems Const Denies chills, Denies excessive sweating, Denies fever(s), Denies headache(s) and Denies night sweats Eyes Denies dry eyes, Denies irritation and Denies itchy eyes ENT Reports Normal hearing present, Denies headache(s), Denies nasal congestion, Denies nasal discharge, Denies post nasal drip and Denies sore throat Card Denies chest pain, Denies chest pain at rest, Denies chest pain with activity, Denies claudication, Denies leg edema and Denies orthopnea Resp Denies chest congestion, Denies excessive phlegm production, Denies pain on inspiration, Denies pain with cough and Denies stridor Musc Denies myalgias Neuro Reports Normal hearing present and Denies headache(s) Endo Denies excessive sweating Teddy/Lymph Denies lymphadenopathy Aller/Immun Denies itchy eyes and Denies seasonal rhinorrhea Physical Exam Vital Signs: Last Vital Signs Pulse 96 09/10/23 10:37 BP 136/80 09/10/23 10:37 Pulse Ox 100 09/10/23 10:37 Oxygen Delivery Method Room Air 09/10/23 10:37 Const General: cooperative, healthy appearing, comfortable, no acute distress, well developed and alert Nutritional Appearance: obese Orientation/consciousness: patient oriented x3 Limitations: no limitations HEENT Head: Yes normal to inspection, Yes normocephalic and Yes atraumatic Ears: hearing grossly normal bilaterally and external ears normal Eyes General: appearance normal, both eyes and all related structures Eyelids: Yes eyelids normal Sclerae: sclerae normal EOM: EOMs intact bilaterally Neck Neck: Yes normal visual inspection and Yes no lymphadenopathy Lymphatic: no lymphadenopathy noted Chest Chest palpation & inspection: normal inspection of the chest Resp Effort & Inspection: normal respiratory effort, able to speak in complete sentences, no audible wheezes, no cough, no stridor, not tachypneic, no tripod positioning and no use of accessory muscles Auscultation: diminished lung sounds Cardio Jugular venous distension: no JVD Rate: regular rate Rhythm: regular rhythm Skin Other: warm, dry General skin exam: no rashes or lesions noted Neuro General: patient oriented x3 Cranial nerves: Yes Normal hearing present Cognition (Neuro): normal cognition Gait exam (Neuro): Normal gait present Extrem General: Yes normal to inspection, Yes capillary refill normal, Yes no clubbing, cyanosis or edema and Yes no pedal edema Psych Appearance: grossly normal and well kempt Speech and movement: Normal speech and movement present and Clear speech present Affect: normal affect Attitude: cooperative Thought process: Normal thought process present Thought content: Normal thought content present Insight: Good insight present (Psych) Judgement: Good judgement present (Psych) Office Procedures 6 Minute Walk Time:: 10:29 SPO2 % at rest: 100 Pulse at rest: 69 SPO2 % during excercise: 98 Pulse during excercise: 102 SPO2 % after excercise: 98 Pulse after excercise: 96 Distance in yards walked: 1,000 6 Minute Walk (with oxygen) Performance Observations: Patient walked on level ground without assistance. Maintained O2 saturation of 98% or greater for the entire walk and pulse rate of 102 or less. Patient reports she does sometimes feel shortness of breath when walking a distance or on an incline. Patient did not require supplemental O2. 33978 - 6 Minute Walk Assessment & Plan Assessment & Plan (1) COPD (chronic obstructive pulmonary disease): Code(s): J44.9 - Chronic obstructive pulmonary disease, unspecified (2) Obesity (BMI 30-39.9): Code(s): E66.9 - Obesity, unspecified Plan Will treat bronchitic symptoms with azithromycin. She is aware to call the office if symptoms do not improve. She reports doing well since discharge without wheezing, dyspnea or chest tightness. Advised to continue using symbicort and monitoring BP. Patient was questioning the need for supplemental oxygen, 6MWT performed and patient does not qualify at this time. All questions answered and patient is in agreement of plan. Will follow up in 3 months to review response to inhaler or sooner if needed. Orders: Orders AMB 6 minute walk Today J44.1 - Chronic obstructive pulmonary disease with (acute) exacerbation Medications: New azithromycin For 250 mg dose pack: take 500 mg today (day 1), then 250 mg for 4 days (days 2-5) PO 6 tabs 0RF Refilled albuterol sulfate 2.5 mg (3 mL) inhalation Q6H 75 mL 0RF Coding Level of Care Code Est Pt Level 4 (45594) Diagnoses COPD (chronic obstructive pulmonary disease) J44.9 Obesity (BMI 30-39.9) E66.9 CPT Codes Coding ([id number])
[2023-09-10 10:37] VITALS: BP 136/80; PULSE 96; O2SAT 100
[2023-09-10 10:45] VITALS: PULSE 69; O2SAT 100
== END 2023-09-10 10:37 | disposition home or self-care (01) ==
PROVIDERS: PCP Internal Medicine; Visit Provider Nurse Practitioner Family
DX: J44.9 Chronic obstructive pulmonary disease, unspecified (principal); E66.9 Obesity, unspecified
CPT/HCPCS: 94618; 99214

== ENCOUNTER → 2023-09-10 09:57 | Outpatient (BNVA) | payer OTHER, SELFPAY | PROVIDERS: PCP Internal Medicine; Visit Provider Nurse Practitioner Family | DX: J44.1 Chronic obstructive pulmonary disease with (acute) exacerbation (principal); E66.9 Obesity, unspecified | CPT/HCPCS: 94618; 99212 ==

== ENCOUNTER 2023-10-09 08:12 | Outpatient (REF) | payer OTHER, SELFPAY ==
[2023-10-09 09:41] LABS: Alanine Aminotransferase 12 U/L (0-31); Albumin Level 3.8 g/dL (3.5-5.0); Alkaline Phosphatase 78 U/L (39-117); Anion Gap 10 (12-20); Aspartate Amino Transferase 12 U/L (5-31); Bilirubin Total 0.2 mg/dL (0.0-1.0); Blood Urea Nitrogen 12 mg/dL (9-16); Calcium 8.7 mg/dL (8.4-10.2); Carbon Dioxide 28 mmol/L (22-29); Chloride 109 mmol/L (96-108); Cholesterol 145 mg/dL (<200); Estimated Glomerular Filt Rate > 60; Glucose Fasting 98 mg/dL (60-99); HDL Cholesterol 45 mg/dL (>40); LDL Cholesterol Calculated 91 mg/dL (<100); Potassium 4.6 mmol/L (3.3-5.1); Sodium 142 mmol/L (135-145); Total Protein 6.7 g/dL (6.5-8.0); Triglycerides 47 mg/dL (<150)
[2023-10-09 11:06] LABS: Appearance Urine Cloudy; Color Urine Yellow; Glucose Urine UA Negative (Negative); Leukocyte Esterase Urine Negative (Negative); Nitrite Urine Negative (Negative); PH 6.5 (5.0-9.0); Specific Gravity - Urine 1.025 (1.005-1.025); Urine Blood Negative (Negative); Urine Ketones Negative (Negative); Urine Protein Trace mg/dL (Neg-Trace)
[2023-10-21 15:24] LABS: FIB-ALT 10 U/L (6-29); FIB-Alpha-2-Macroglobulin 111 mg/dL (106-279); FIB-Apolipoprotein A1 133 mg/dL (101-198); FIB-GGT 14 U/L (3-50); FIB-Haptoglobin 213 mg/dL (43-212); FIB-Total Bilirubin 0.1 mg/dL (0.2-1.2); Liver Fibrosis Score 0.01; Liver Fibrosis Stage F0; Nec Inflam Act Grade A0; Nec Inflam Act Score 0.02
== END 2023-10-09 08:13 | disposition home or self-care (01) ==
LOC: HO.LAB 08:12
PROVIDERS: PCP Internal Medicine; Visit Provider Internal Medicine
DX: E78.00 Pure hypercholesterolemia, unspecified (principal); R39.9 Unspecified symptoms and signs involving the genitourinary system; R79.89 Other specified abnormal findings of blood chemistry
CPT/HCPCS: 36415; 80053; 80061; 81003; 81596

== ENCOUNTER 2023-10-11 13:47 | Outpatient (AMB) | payer OTHER, SELFPAY ==
--- NOTE | 2023-10-11 13:50 | A.OFFVIS_ITS ---
Vital Signs 10/11/23 13:51 Height 5 ft 1 in Weight 215 lb 4 oz BMI 40.7 BP 138/76 Blood Pressure Location Lt brachial Position Sitting Pulse 72 Pulse Source Pulse Oximeter Pulse Oximetry (%) 99 Oxygen Delivery Method Room Air Intake Visit Reasons: COPD Allergies amoxicillin [AMOXICILLIN] Allergy (Intermediate, Verified 10/11/23 13:54) NAUSEA & VOMITING, stomach pain, vomiting, stomach upset topiramate [From TOPAMAX] Allergy (Intermediate, Verified 10/11/23 13:54) TREMORS, nausea and vomiting latex [LATEX] Allergy (Mild, Verified 10/11/23 13:54) RASH medroxyprogesterone [From PROVERA] Allergy (Mild, Verified 10/11/23 13:54) RASH lactose Allergy (Verified 10/11/23 13:54) bloating , diarrhea HPI HPI COPD: Details: Gabriella is a very pleasant 32-year-old female, never tobacco smoker, with underlying asthma/COPD, rheumatoid arthritis and fibromyalgia. Patient also with anemia and can not tolerate oral iron, plan was to start iron infusions through PCP/hematology. At the last visit, she was switched from Advair to Symbicort as she felt the components of Advair were contributing to elevated BP. Today she reports after 4 weeks on Symbicort, her BP has been well controlled and has noticed an improvement in symptoms. However she continues to use albuterol PRN for chest tightness and dyspnea with moderate exertion. She denies any wheezing or cough. She is currently on antibiotics (unsure name), for a dental extraction. She required antiotics a month ago for an exacerbation and reports resolution of symptoms. [facility] Medical History Annual physical exam Benign essential hypertension Shortness of breath Thoracic back pain Intermittent chest pain Left ear pain Neck pain Depression Atypical chest pain Tension headache Myofascial pain Sacroiliac joint pain Bilateral primary osteoarthritis of hip Polyuria Right-sided chest pain Post depression BMI 39.0-39.9,adult Pain in left lopez Hematoma of left lower extremity Trigger finger of left thumb Trigger finger of right thumb Insomnia Morbid obesity with BMI of 40.0-44.9, adult Smoker Carpal tunnel syndrome, bilateral Left leg swelling Personal history of gestational diabetes Wrist pain Obesity (BMI 30-39.9) Second trimester Supervision of other high risk , antepartum Supervision of other normal PCOS (polycystic ovarian syndrome) control counseling Migraines Vulvar cyst Lower back pain Anxiety Hyperlipemia Fibromyalgia Rheumatoid arthritis Surgical History S/P laparoscopic cholecystectomy (03/06/23) H/O tubal ligation History of hip replacement, total History of esophagogastroduodenoscopy (EGD) History of removal of cyst History of tonsillectomy and adenoidectomy Family History Father Medical history unknown Mother Diabetes Hypertension Maternal Aunt Breast cancer Ovarian cancer Mental health disorder Maternal Grandmother Diabetes Hypertension Social History (Updated 10/11/23 @ 14:01 by Reva Clement CMA) Household Members: Spouse and Children [facility] Alcohol intake: current Alcohol intake frequency: holidays/special occasions only Patient Tobacco Use Status: Former Tobacco user Quit Date: 2.5 yrs e-Cigarette/Vaping Use: Never Used Second Hand Smoke Exposure: No Substance Use Type: Marijuana service: No Current occupational status: disabled Sexual orientation: Straight/Heterosexual Gender identity: Female Cognitive needs: No Hearing needs: No Vision needs: Yes Female Reproductive History Menstrual Age of Menarche: 8 Review of Systems Const Denies chills, Denies excessive sweating, Denies fever(s), Denies headache(s) and Denies night sweats Eyes Denies dry eyes, Denies irritation and Denies itchy eyes ENT Reports Normal hearing present, Denies headache(s), Denies nasal congestion, Denies nasal discharge, Denies post nasal drip and Denies sore throat Card Denies chest pain, Denies chest pain at rest, Denies chest pain with activity, Denies claudication, Denies leg edema and Denies orthopnea Resp Denies chest congestion, Denies excessive phlegm production, Denies pain on inspiration, Denies pain with cough and Denies stridor Musc Denies myalgias Neuro Reports Normal hearing present and Denies headache(s) Endo Denies excessive sweating Teddy/Lymph Denies lymphadenopathy Aller/Immun Denies itchy eyes and Denies seasonal rhinorrhea Physical Exam Vital Signs: Last Vital Signs Pulse 72 10/11/23 13:51 BP 138/76 10/11/23 13:51 Pulse Ox 99 10/11/23 13:51 Oxygen Delivery Method Room Air 10/11/23 13:51 BMI result Body Mass Index 40.7 Const General: cooperative, healthy appearing, comfortable, no acute distress, well developed and alert Nutritional Appearance: obese Orientation/consciousness: patient oriented x3 Limitations: no limitations HEENT Head: Yes normal to inspection, Yes normocephalic and Yes atraumatic Ears: hearing grossly normal bilaterally and external ears normal Eyes General: appearance normal, both eyes and all related structures Eyelids: Yes eyelids normal Sclerae: sclerae normal EOM: EOMs intact bilaterally Neck Neck: Yes normal visual inspection and Yes no lymphadenopathy Lymphatic: no lymphadenopathy noted Chest Chest palpation & inspection: normal inspection of the chest Resp Effort & Inspection: normal respiratory effort, able to speak in complete sentences, no audible wheezes, no cough, no stridor, not tachypneic, no tripod positioning and no use of accessory muscles Auscultation: diminished lung sounds Cardio Jugular venous distension: no JVD Rate: regular rate Rhythm: regular rhythm Skin Other: warm, dry General skin exam: no rashes or lesions noted Neuro General: patient oriented x3 Cranial nerves: Yes Normal hearing present Cognition (Neuro): normal cognition Gait exam (Neuro): Normal gait present Extrem General: Yes normal to inspection, Yes capillary refill normal, Yes no clubbing, cyanosis or edema and Yes no pedal edema Psych Appearance: grossly normal and well kempt Speech and movement: Normal speech and movement present and Clear speech present Affect: normal affect Attitude: cooperative Thought process: Normal thought process present Thought content: Normal thought content present Insight: Good insight present (Psych) Judgement: Good judgement present (Psych) Assessment & Plan Assessment & Plan (1) Asthma-COPD overlap syndrome: Code(s): J44.89 - Other specified chronic obstructive pulmonary disease Category: Medical (2) Obesity (BMI 30-39.9): Code(s): E66.9 - Obesity, unspecified Category: Medical (3) Encounter for preoperative pulmonary examination: Code(s): Z01.811 - Encounter for preprocedural respiratory examination Category: Medical Plan Gabriella presents for preoperative pulmonary evaluation for proposed left hip replacement scheduled with [facility] on 10/24/23. Today she reports good control of respiratory symptoms with symbicort and using albuterol PRN. She had an exacerbation 4 weeks ago, treated with a zpak, with complete resolution of symptoms. 6MWT was performed at the last visit, and patient did not require supplemental oxygen. PFT from 12/2022 revealed FEV1 71% and DLCO normal. At this time, patient low risk for perioperative pulmonary complications for proposed left total hip replacement. Would consider bronchodilators in the perioperative period. All questions answered and patient is in agreement of plan. Will follow up at the end of November or sooner if needed. Medications: Discontinued fluticasone propion-salmeterol 230-21 mcg/actuation (Advair HFA) Discontinued Reason: Patient Completed Course 2 puffs inhalation Q12H 1 ea 3RF Coding Level of Care Code Est Pt Level 4 (83515) Diagnoses Asthma-COPD overlap syndrome J44.89 Obesity (BMI 30-39.9) E66.9 Encounter for preoperative pulmonary examination Z01.811
[2023-10-11 13:51] VITALS: BP 138/76; PULSE 72; O2SAT 99; BMI 40.7
== END 2023-10-11 14:11 | disposition home or self-care (01) ==
PROVIDERS: PCP Internal Medicine; Visit Provider Nurse Practitioner Family
DX: J44.89 Other specified chronic obstructive pulmonary disease (principal); E66.9 Obesity, unspecified; Z01.811 Encounter for preprocedural respiratory examination
CPT/HCPCS: 99214

== ENCOUNTER → 2023-10-11 13:47 | Outpatient (BNVA) | payer OTHER, SELFPAY | PROVIDERS: PCP Internal Medicine; Visit Provider Nurse Practitioner Family | DX: Z01.811 Encounter for preprocedural respiratory examination (principal); J44.89 Other specified chronic obstructive pulmonary disease; E66.9 Obesity, unspecified; Z68.41 Body mass index [BMI] 40.0-44.9, adult | CPT/HCPCS: 99212 ==

== ENCOUNTER 2023-10-17 09:58 | Outpatient (AMB) | payer OTHER, SELFPAY ==
--- NOTE | 2023-10-17 10:00 | A.OFFPC_ITS ---
Vital Signs 10/17/23 10:01 10/17/23 10:56 Height 5 ft 1 in Weight 214 lb 0.5 oz BMI 40.4 BP 140/72 H 132/82 Blood Pressure Location Lt brachial Lt brachial Position Sitting Sitting Pulse 68 Pulse Source Pulse Oximeter Pulse Oximetry (%) 98 Oxygen Delivery Method Room Air Intake Visit Reasons: 4 month f/u Intake Note: Patient is here to follow up on 4 months Airways Operations Specialist Required: No Allergies amoxicillin [AMOXICILLIN] Allergy (Intermediate, Verified 10/17/23 10:46) NAUSEA & VOMITING, stomach pain, vomiting, stomach upset topiramate [From TOPAMAX] Allergy (Intermediate, Verified 10/17/23 10:46) TREMORS, nausea and vomiting latex [LATEX] Allergy (Mild, Verified 10/17/23 10:46) RASH medroxyprogesterone [From PROVERA] Allergy (Mild, Verified 10/17/23 10:46) RASH lactose Allergy (Verified 10/17/23 10:46) bloating , diarrhea Medication List - Last Reconciled 10/17/23 by Jarrod Sherman MD albuterol sulfate 90 mcg/actuation 2 inhalations inhalation Q4-6H PRN albuterol sulfate 2.5 mg (3 mL) inhalation Q6H amlodipine (Norvasc) 5 mg PO DAILY azithromycin 500 mg PO DAILY [BEDSIDE COMMODE As directed] budesonide-formoterol 160-4.5 mcg/actuation (Symbicort) 2 puffs inhalation Q12H bupropion HCl XL 150 mg PO QAM cyclobenzaprine 10 mg PO TID PRN Dexilant (dexlansoprazole) 60 mg PO DAILY NS ferrous sulfate 325 mg PO DAILY FreeStyle Lite Strips (blood sugar diagnostic) 4 strips miscellaneous QID 30 days NS [FRONT-WHEELED WALKER As directed] gabapentin 400 mg PO TID 30 days hydroxyzine HCl 1 to 2 tablets 3 times a day as needed for anxiety; 30 days ibuprofen (IBU) 800 mg PO Q8H PRN 30 days ketorolac 10 mg PO TID PRN labetalol 100 mg PO BID 90 days lancets (FreeStyle Lancets) 4 times/day lidocaine 5% (Lidoderm) 2 patches topical DAILY linaclotide (Linzess) 290 mcg PO QAM 30 days wyniuq-mmpfxxqe-[id number] 36,000-114,000- 180,000 unit (Creon) 1 cap PO QID metoclopramide HCl (Reglan) 5 mg PO QIDACHS morphine 15 mg PO Q6H PRN nebulizers (Compact Compressor Nebulizer) As directed norethindrone acetate mg PO pyridoxine (vitamin B6) 100 mg PO DAILY 90 days sertraline 100 mg PO DAILY [TUB SEAT with BACK As directed] Tobacco use date assessed: 10/17/23 Dental Screening Dental Screen Date: 10/17/23 Did you have a dental visit in the last 12 months?: Yes Did you have a dental problem in the last 6 months where you did not have access to dental care?: No Was dental information given to patient?: Patient has dentist HPI 4 month f/u HPI Details Patient comes in today for her follow up visit States that she is scheduled for a total left hip arthroplasty with [facility] next week on 10/24/2023 Patient states that she feels okay Was seen by pulmonary last week and had her Advair switched over to Symbicort - feels that her new inhaler is helping her better recently She denies any headaches or dizziness although she did have an isolated spell of dizziness last week while she was giving her 3 y/o child a bath - has had no recurrence of symptoms since Denies any chest pains, no SOB No nausea/vomiting, no abdominal pain No change in bowel habits noted She had her follow up labs done last week - to discuss her results [facility] Medical History (Updated 10/17/23 @ 11:05 by Jarrod Sherman MD) Benign essential hypertension Thoracic back pain Depression Tension headache Myofascial pain Sacroiliac joint pain Bilateral primary osteoarthritis of hip Post depression BMI 39.0-39.9,adult Trigger finger of left thumb Trigger finger of right thumb Insomnia Morbid obesity with BMI of 40.0-44.9, adult Smoker Carpal tunnel syndrome, bilateral Personal history of gestational diabetes Obesity (BMI 30-39.9) Supervision of other high risk , antepartum Supervision of other normal PCOS (polycystic ovarian syndrome) control counseling Migraines Vulvar cyst Anxiety Hyperlipemia Fibromyalgia Rheumatoid arthritis Surgical History S/P laparoscopic cholecystectomy (03/06/23) H/O tubal ligation History of hip replacement, total History of esophagogastroduodenoscopy (EGD) History of removal of cyst History of tonsillectomy and adenoidectomy Family History Father Medical history unknown Mother Diabetes Hypertension Maternal Aunt Breast cancer Ovarian cancer Mental health disorder Maternal Grandmother Diabetes Hypertension Social History Household Members: Spouse and Children [facility] Alcohol intake: current Alcohol intake frequency: holidays/special occasions only Patient Tobacco Use Status: Former Tobacco user Quit Date: 2.5 yrs e-Cigarette/Vaping Use: Never Used Second Hand Smoke Exposure: No Substance Use Type: Marijuana service: No Current occupational status: disabled Sexual orientation: Straight/Heterosexual Gender identity: Female Cognitive needs: No Hearing needs: No Vision needs: Yes Female Reproductive History Menstrual Age of Menarche: 8 Questionnaire PHQ-9 Over the last 2 weeks, how often have you been bothered by any of the following problems? 1. Little interest or pleasure in doing things: several days 2. Feeling down, depressed, or hopeless: several days 3. Trouble falling or staying asleep, or sleeping too much: several days 4. Feeling tired or having little energy: several days 5. Poor appetite or overeating: several days 6. Feeling bad about yourself - or that you are a failure or have let yourself or your family down: several days 7. Trouble concentrating on things, such as reading the newspaper or watching television: several days 8. Moving or speaking so slowly that other people could have noticed. Or the opposite - being so fidgety or restless that you have been moving around a lot more than usual: not at all 9. Thoughts that you would be better off or of hurting yourself in some way: not at all Total score: 7 Depression Screening Interpretation: Positive Depression Screening Follow-up: Existing condition and In treatment Depression Screening Done: Yes 69369 - PHQ-9 Billing: Yes Source: Developed by Drs. Cuco Richards, Itzel Ordaz, Eliud Ladd and colleagues, with an educational lino from [employer]. Thrive Questionnaire Date Thrive assessed: 10/17/23 I am a: Patient What is your living situation today?: I have a steady place to live Within the past 12 months, did the food you bought not last and you didn't have the money to get more?: Never true Within the past 12 months, did you worry whether your food would run out before you got money to buy more?: Never true Do you have trouble paying for medicines?: No Do you have trouble getting transportation to medical appointments?: No Do you have trouble paying your heating and electricity bill?: No Do you have trouble taking care of your child, family member or friend?: No Do you have trouble with day-to-day activities such as bathing, preparing meals, shopping, managing finances, etc.?: No Are you currently unemployed and looking for a job?: No Are you interested in more education?: No Please select the resources that you would like help with: None Currently or been in a relationship where the following occur: no concerns reported THRIVE Score: 0 AUDIT C Alcohol Use Questionnaire (AUDIT-C) 1. How often do you have a drink containing alcohol?: Never 3. How often do you have six or more drinks on one occasion?: Never Total Score: 0 Score Reviewed/Action Taken: Yes STEPHANIE-7 AMB Questionnaire STEPHANIE-7 Date STEPHANIE - 7 assessed: 10/17/23 Feeling nervous, anxious, or on edge: 1 = Several days Not being able to stop or control worryin = Several days Worrying too much about different things: 1 = Several days Trouble relaxin = Several days Being so restless that it is hard to sit still: 1 = Several days Becoming easily annoyed or irritable: 1 = Several days Feeling afraid as if something awful might happen: 0 = Not at all Total STEPHANIE-7 score (0-4 normal; 5-9 mild; 10-14 moderate; 15-21 severe): 6 Source: Developed by Drs. Cuco Richards, Itzel Ordaz, Eliud Ladd and colleagues, with an educational lino from [employer]. Review of Systems Const Denies chills, Denies fatigue, Denies fever(s) and Denies headache(s) ENT Denies dysphagia, Denies dizziness, Denies otalgia, Denies headache(s), Denies neck pain, Denies odynophagia and Denies sore throat Card Denies chest pain, Denies rapid heart rate, Denies irregular heart rhythm, Denies palpitations and Denies dyspnea Resp Denies chest congestion, Denies cough, Denies dyspnea and Denies wheezing GI Denies abdominal pain, Denies constipation, Denies dysphagia, Denies heartburn, Denies diarrhea, Denies nausea, Denies odynophagia and Denies vomiting Denies hematuria, Denies urinary frequency, Denies dysuria and Denies urinary urgency Musc Reports back pain (on and off, over the lower back), Reports arthralgias (left hip - chronic), Reports joint swelling and Denies neck pain Skin/Breast Denies rash Neuro Denies dizziness, Denies headache(s) and Denies paresthesias Psych Denies anxiety and Denies depression Endo Denies fatigue and Denies palpitations Teddy/Lymph Denies easy bruising Aller/Immun Denies wheezing Physical exam (Primary Care) Vital Signs: Last Vital Signs Pulse 68 10/17/23 10:01 BP 132/82 10/17/23 10:56 Pulse Ox 98 10/17/23 10:01 Oxygen Delivery Method Room Air 10/17/23 10:01 BMI result Body Mass Index 40.4 Tobacco/Smoking Status: Tobacco use Status Tobacco use date assessed 10/17/23 10/17/23 10:02 Patient Tobacco Use Status Former Tobacco user 10/17/23 10:02 Tobacco use type 09/03/23 13:14 e-Cigarette/Vaping Use Never Used 10/17/23 10:02 PHQ-9: PHQ-9 Score PHQ-9: Total score 7 10/17/23 11:10 Depression Screening Interpretation: Positive Depression Screening Follow-up: Existing condition and In treatment Thrive Assessment: Date of Thrive Assessment Date Thrive assessed 10/17/23 10/17/23 10:02 Currently or been in a relationship where the following occur: no concerns reported Const General: no acute distress and alert HENMT Ears: TM's normal bilaterally and EAC's normal Throat: Yes posterior oropharynx normal and Yes tonsils normal (no TP congestion) Neck Neck: Yes no lymphadenopathy and Yes supple Thyroid: Thyroid normal Resp Auscultation: clear to auscultation bilaterally, no rales and no wheezes Cardio Rate: regular rate Rhythm: regular rhythm Heart sounds: no murmurs GI Palpation (GI): Soft to palpation and nontender Auscultation: normal bowel sounds General: Yes no CVA tenderness Back/Spine/Pelvis Back: no CVA tenderness Thoracic/Lumbar Spine: lumbar spinal tenderness (mild) Skin Rashes: no rashes Extrem General: Yes no clubbing, cyanosis or edema Left lower extremity: hip/thigh Details: tenderness Location: of the hip and abnormal ROM Details: pain with active ROM Results Reviewed Results Reviewed: Laboratory Tests 10/09/23 10/09/23 08:27 10:09 Sodium 142 Potassium 4.6 Creatinine 0.65 Estimated GFR > 60 Fasting Glucose 98 Calcium 8.7 AST 12 ALT 12 Triglycerides 47 Cholesterol 145 LDL Cholesterol, Calc 91 HDL Cholesterol 45 Ur Specific [place] 1.025 Urine Protein Trace Urine Glucose (UA) Negative Urine Blood Negative Urine Nitrite Negative Ur Leukocyte Esterase Negative Assessment and Plan Assessment & Plan (1) Benign essential hypertension: Code(s): I10 - Essential (primary) hypertension Plan: Reinforced low-sodium diet - goal is systolic BP of 120 mm or less Continue Labetalol 100 mg BID and Amlodipine 5 mg QD She also used to take Spironolactone 50 mg BID but apparently stopped taking this sometime last year (2) Asthma-COPD overlap syndrome: Code(s): J44.89 - Other specified chronic obstructive pulmonary disease Plan: Stable lately Continue Symbicort 160-4.5 mcg 2 inhalations BID and Albuterol HFA 2 inhalations Q 6 hours PRN (3) Elevated LFTs: Code(s): R79.89 - Other specified abnormal findings of blood chemistry Plan: Her LFTs (especially her ALT) were previously elevated back in May 2023 but have returned back to normal since Were likely due to hepatosteatosis, as confirmed on her abdominal US done back in June 2023 Will continue to monitor her LFTs regularly (4) Cholelithiasis with chronic cholecystitis: Code(s): K80.10 - Calculus of gallbladder with chronic cholecystitis without obstruction Qualifiers: Biliary obstruction: without biliary obstruction Cholelithiasis location: gallbladder Qualified Code(s): K80.10 - Calculus of gallbladder with chronic cholecystitis without obstruction Plan: S/P laparoscopic cholecystectomy under general anesthesia with Dr. Stanley on 03/06/2023 (5) Bilateral primary osteoarthritis of hip: Code(s): M16.0 - Bilateral primary osteoarthritis of hip Plan: S/P right hip arthroplasty last year in July 2022 - states that her right hip has been doing well since her surgery She is now scheduled for total left hip arthroplastly with [facility] next week on 10/24/2023 (6) GERD (gastroesophageal reflux disease): Code(s): K21.9 - Gastro-esophageal reflux disease without esophagitis Qualifiers: Esophagitis presence: without esophagitis Qualified Code(s): K21.9 - Gastro-esophageal reflux disease without esophagitis Plan: Dietary restrictions reinforced Continue Dexlansoprazole 60 mg QD (7) Anemia: Code(s): D64.9 - Anemia, unspecified Qualifiers: Anemia type: unspecified type Qualified Code(s): D64.9 - Anemia, unspecified Plan: Continue IV Iron infusions PRN Follow up with hematology as scheduled Will recheck CBC and iron studies in 4 months for follow up (8) Migraine: Code(s): G43.909 - Migraine, unspecified, not intractable, without status migrainosus Qualifiers: Intractability: not intractable Migraine type: unspecified Status migrainosus presence: without status migrainosus Qualified Code(s): G43.909 - Migraine, unspecified, not intractable, without status migrainosus Plan: Continue Acetaminophen 325 mg every 4 to 6 hours as needed Reinforced avoidance of migraine triggers Will need to consider prophylactic Tx again if her headaches persist or get worse (9) Fibromyalgia: Code(s): M79.7 - Fibromyalgia Plan: Encouraged again regular exercise and physical activity to help manage her fibromyalgia symptoms Continue Gabapentin 400 mg TID (10) Insomnia: Code(s): G47.00 - Insomnia, unspecified Qualifiers: Insomnia type: unspecified Qualified Code(s): G47.00 - Insomnia, unspecified Plan: Sleep hygiene reinforced Continue OTC Unisom 25 mg Q HS PRN (11) Anxiety: Code(s): F41.9 - Anxiety disorder, unspecified Plan: Is on Bupropion and Sertraline; continue Hydroxyzine 25 mg 1 to 2 tablets TID PRN (12) Depression: Code(s): F32.A - Depression, unspecified Qualifiers: Active/Remission status: currently active Depression Type: major de pressive disorder Major depression episode severity: unspecified Major depression recurrence: recurrent Qualified Code(s): F33.9 - Major depressive disorder, recurrent, unspecified Plan: Continue Sertraline 100 mg QD and Bupropion XL 150 mg Q AM Follow up with psychiatry as scheduled (13) Smoker: Comment: Stop smoking cigarettes 2019 Code(s): F17.200 - Nicotine dependence, unspecified, uncomplicated Plan: Counseled again on smoking cessation (14) Morbid obesity with BMI of 40.0-44.9, adult: Code(s): E66.01 - Morbid (severe) obesity due to excess calories; Z68.41 - Body mass index [BMI] 40.0-44.9, adult Plan: Reinforced diet/exercise as tolerated/lose weight Plan Follow up in 4 months Orders: Orders Complete Blood Count Auto Diff 4 Months D64.9 - Anemia, unspecified TSH reflex Free T4 4 Months E78.00 - Pure hypercholesterolemia, unspecified UA CC w/rflx Micro + Cult 4 Months R30.0 - Dysuria Vitamin D 25-OH Total 4 Months E55.9 - Vitamin D deficiency, unspecified IRON PROFILE 4 Months D50.9 - Iron deficiency anemia, unspecified Comprehensive [place]. Panel Fast 4 Months E78.00 - Pure hypercholesterolemia, unspecified Lipid Panel 4 Months E78.00 - Pure hypercholesterolemia, unspecified Coding Level of Care Code Est Pt Level 4 (86990) Diagnoses Benign essential hypertension I10 Asthma-COPD overlap syndrome J44.89 Elevated LFTs R79.89 Calculus of gallbladder with chronic cholecystitis without obstruction K80.10 Biliary obstruction: without biliary obstruction Cholelithiasis location: gallbladder Bilateral primary osteoarthritis of hip M16.0 Gastroesophageal reflux disease without esophagitis K21.9 Esophagitis presence: without esophagitis Anemia, unspecified type D64.9 Anemia type: unspecified type Migraine without status migrainosus, not intractable, unspecified migraine type G43.909 Intractability: not intractable Migraine type: unspecified Status migrainosus presence: without status migrainosus Fibromyalgia M79.7 Insomnia, unspecified type G47.00 Insomnia type: unspecified Anxiety F41.9 Episode of recurrent major depressive disorder, unspecified depression episode severity F33.9 Active/Remission status: currently active Depression Type: major depressive disorder Major depression episode severity: unspecified Major depression recurrence: recurrent Smoker F17.200 Morbid obesity with BMI of 40.0-44.9, adult E66.01; Z68.41
[2023-10-17 10:01] VITALS: BP 140/72; PULSE 68; O2SAT 98; BMI 40.4
[2023-10-17 10:56] VITALS: BP 132/82
== END 2023-10-17 10:56 | disposition home or self-care (01) ==
PROVIDERS: PCP Internal Medicine; Visit Provider Internal Medicine
DX: I10 Essential (primary) hypertension (principal); E66.01 Morbid (severe) obesity due to excess calories; F33.9 Major depressive disorder, recurrent, unspecified; Z68.41 Body mass index [BMI] 40.0-44.9, adult; J44.89 Other specified chronic obstructive pulmonary disease; R79.89 Other specified abnormal findings of blood chemistry; K21.9 Gastro-esophageal reflux disease without esophagitis; K80.10 Calculus of gallbladder with chronic cholecystitis without obstruction; M16.0 Bilateral primary osteoarthritis of hip; D64.9 Anemia, unspecified; G43.909 Migraine, unspecified, not intractable, without status migrainosus; M79.7 Fibromyalgia
CPT/HCPCS: 99214

== ENCOUNTER 2023-11-14 12:00 | Outpatient (AMB) | payer OTHER, SELFPAY ==
--- OUTSIDE RECORDS SUMMARY | 2023-11-14 12:02 | XMS_ITS | Continuity of Care Document ---
Author Organization [facility] Yessica Pham [employer] [facility] Address [address], [address] [place] [address]- Care Team Providers Care Transformation Coach Name Role Phone Jarrod Sherman MD Primary Care Physician Encounter [facility] [place] Date(s): 10/14/23 - 11/13/23 [facility] [employer] [address], [address] [place], [place] [address] Allergies, Adverse Reactions, Alerts Substance Reaction Severity Status Feraheme 1 Active amoxicillin Rash Active topiramate Swelling of throat Active Provera Bleeding Active Latex Skin rash Active 1Chest pressure, lightheaded, scratchy throat Immunizations Given and Recorded Vaccine Date Status Refusal Reason tetanus/diphtheria/pertussis, acel(Tdap) 10/27/20 Given tetanus/diphtheria/pertussis, acel(Tdap) 10/09/19 Given Measles/Mumps/Rubella Virus Vaccine 10/22/19 Given Medications acetaminophen 325 mg oral tablet 650 mg, By Mouth, Every 6 hours, May take OTC not to exceed 3000 mg/day, Refills 0, Maintenance, 07/24/22 8:19:00 EST, Partial fill upon patient request if the prescription is for a schedule II opioid drug. Start Date: 07/24/22 Status: Ordered Advair HFA 115 mcg / 21 mcg 0 Refills, Maintenance, 06/19/23 14:16:00 EST, Partial fill upon patient request if the prescription is for a schedule II opioid drug. Start Date: 06/19/23 Status: Ordered Albuterol 0.083% inhalation jenny 2.5 mg, 3, mL, BAND Nebulizer, Every 4 hours, PRN, Refills 0, Maintenance, Wheezing/Shortness of Breath, 10/25/23 9:07:00 EDT, Inhalation Solution Start Date: 10/25/23 Status: Ordered aspirin 325 mg oral delayed release tablet 325 mg, By Mouth, 2 times a day, Refills 0, Maintenance, 10/25/23 9:08:00 EDT, Partial fill upon patient request if the prescription is for a schedule II opioid drug. Start Date: 10/25/23 Status: Ordered baclofen 10 mg oral tablet 10 mg, 1, tablet, By Mouth, 3 times a day, # 42 tablet, Refills 0, Tot. Refills 0, Maintenance, 07/24/22 8:20:00 EST, Route to Pharmacy Electronically, [facility], Partial fill upon patient request if the prescription is for a schedule I... Start Date: 07/24/22 Stop Date: 08/07/22 Status: Ordered celecoxib 200 mg oral capsule = 200 mg, By Mouth, Daily, 0 Refills, Maintenance, 10/25/23 9:08:00 EDT, Capsule, Partial fill uponpatient request if the prescription is for a schedule II opioid drug. Start Date: 10/25/23 Status: Ordered clotrimazole 1% topical cream See Instructions, APPLY TO AFFECTED AREA AT BEDTIME FOR 7 DAYS, # 30 Gm, 0 Refills, Acute 11/15/23 15:39:00 EDT, 11/08/23 15:39:00 EDT, [facility][id number], APPLY TO AFFECTED AREA AT BEDTIME FOR 7 DAYS, 154, cm, 11/06/23 9:55:00 EDT, Height, 98.5, kg,... Start Date: 11/08/23 Stop Date: 11/15/23 Status: Ordered Colace Capsule 100 mg, 1, capsule, By Mouth, 2 times a day, Refills 0, Maintenance, 10/25/23 9:08:00 EDT, Partial fill upon patient request if the prescription is for a schedule II opioid drug. Start Date: 10/25/23 Status: Ordered Dexilant 60 mg oral delayed release capsule 1 capsule = 60 mg, By Mouth, Daily, # 30 capsule, 0 Refills, Maintenance, 07/23/22 6:39:00 EST, EC Capsule, Partial fill upon patient request if the prescription is for a schedule II opioid drug. Start Date: 07/23/22 Status: Ordered Gabapentin = 400 mg, By Mouth, 3 times a day, 0 Refills, Maintenance, 04/24/21 21:28:00 EST, Partial fill uponpatient request if the prescription is for a schedule II opioid drug. Start Date: 04/24/21 Status: Ordered labetalol 100 mg oral tablet 2 tablet = 200 mg, By Mouth, 2 times a day, 0 Refills, Maintenance, 07/24/22 8:19:00 EST, Tablet, Partial fill upon patient request if the prescription is for a schedule II opioid drug. Start Date: 07/24/22 Status: Ordered Linzess = 145 mcg, By Mouth, Daily, 0 Refills, Maintenance, 07/03/22 14:13:00 EST, Partial fill upon patient request if the prescription is for a schedule II opioid drug. Start Date: 07/03/22 Status: Ordered MiraLax Powder 1 pack/packet = 17 Gm, By Mouth, Daily, PRN Constipation, 0 Refills, Maintenance, 10/25/23 9:08:00 EDT, Powder, Partial fill upon patient request if the prescription is for a schedule II opioid drug. Start Date: 10/25/23 Status: Ordered pantoprazole 40 mg oral delayed release tablet = 40 mg, By Mouth, Daily, 0 Refills, Maintenance, 10/25/23 9:08:00 EDT, EC Tablet Start Date: 10/25/23 Status: Ordered senna 187 mg oral tablet 1 tablet = 8.6 mg, By Mouth, Daily at bedtime, PRN as needed for constipation, 0 Refills, Maintenance, 10/25/23 9:08:00 EDT, Tablet, Partial fill upon patient request if the prescription is for a schedule II opioid drug. Start Date: 10/25/23 Status: Ordered sertraline 50 mg oral tablet = 200 mg, By Mouth, Daily in AM, 0 Refills, Maintenance, 10/25/23 9:09:00 EDT, Tablet, Partial fillupon patient request if the prescription is for a schedule II opioid drug. Start Date: 10/25/23 Status: Ordered Problem List Condition Confirmation Course Effective Dates Status Health St atus Informant Anemia Confirmed Active Anxiety 1 Confirmed Active Arthritis Confirmed Active Bipolar disorder Confirmed Active Carpal tunnel syndrome during Confirmed Active Vulvar cyst Confirmed Active Depression Confirmed Active Fibromyalgia Confirmed Active GERD (gastroesophageal reflux disease) Confirmed Active Hemorrhoid Confirmed Active History of COVID-19 Confirmed 06/20/20 Active Chronic hypertension Confirmed Active Marijuana use 2 Confirmed Active Migraines Confirmed Active Obesity Confirmed Active Panic attacks Confirmed Active PCOS (polycystic ovarian syndrome) Confirmed Active Wound cellulitis after surgery Confirmed Active Rubella equivocal [ ] MMR Confirmed Active Severe obesity Confirmed Active 1on Sertraline now, helping and has therapist and psychatrist 2Smoke in the morning for nausea and anxiety Social History Social History Type Response Smoking Status Former smoker, quit more than 30 days ago entered on: 10/07/23 Sex Patient Care team information Care Team Personnel Name: Lane GAMBOA, Jarrod Oneil Position: Reference Physician Member Role: PCP Address: Address: [address] [place] [address] Drive [address] [place] [address] - Name: Denise Hurt RN Position: [facility] RN Member Role: Primary Care Nurse Name: Katie Berger RN Position: [facility] SN RN Member Role: Primary Care Nurse Name: John Gtz RN Position: S RN Member Role: Primary Care Nurse Name: Loreto Powell RN Position: S RN Member Role: Primary Care Nurse Name: Jyoti Peraza RN Position: S RN Member Role: Primary Care Nurse Care Team Related Persons Name: LUIS ALBERTO MANJINDER Address: [address] Address: home [address] [place], [place] Name: JOSE SAHU Address: [address] Address: home [address] [place], [place] Name: DENNISE MCCLAIN Address: [place] [address]
--- OUTSIDE RECORDS SUMMARY | 2023-11-14 12:02 | XMS_ITS | Continuity of Care Document ---
Author Organization [facility] Yessica gant [facility] Address [address] [place] [address], 4t [place] [address]- Care Team Providers Care Test Designer Name Role Phone Jarrod Sherman MD Primary Care Physician [phone] Encounter [facility] [place] [facility] [place] [id number] Date(s): 05/29/23 - 06/28/23 [facility] Yessica LeonViblios [facility] [address] [facility], 4th [place] [address]- Attending Physician: Kalen Yusuf Admitting Physician: AdmtrKalen Referring Physician: Admtr, ArFrieda Allergies, Adverse Reactions, Alerts Substance Reaction Severity Status amoxicillin Rash Active Provera Bleeding Active Feraheme 1 Active topiramate Swelling of throat Active Latex Skin rash Active 1Chest pressure, [...] opioid drug. Start Date: 07/24/22 Status: Ordered acetaminophen 500 mg oral tablet 2 tablet = 1,000 mg, By Mouth, Every 6 hours, for 5 days, May take with ibuprofen 800mg TID for post op pain, # 40 tablet, 0 Refills, Acute 06/30/23 15:08:00 EST, 06/25/23 15:08:00 EST, [facility]/pharmacy #[id number], Partial fill upon patient request if the pres... Start Date: 06/25/23 Stop Date: 06/30/23 Status: Ordered Advair HFA 115 mcg / 21 mcg 0 Refills, Maintenance, 06/19/23 14:16:00 EST, Partial fill upon patient request if the prescription is for a schedule II opioid drug. Start Date: 06/19/23 Status: Ordered albuterol 0.083% inhalation solution 0 Refills, Maintenance, 06/19/23 14:16:00 EST, Partial fill upon patient request if the prescription is for a schedule II opioid drug. Start Date: 06/19/23 Status: Ordered baclofen 10 mg oral tablet 10 mg, 1, tablet, By Mouth, 3 times a day, # 42 tablet, Refills 0, Tot. Refills 0, Maintenance, 07/24/22 8:20:00 EST, Route to Pharmacy Electronically, [facility], Partial fill upon patient request if the prescription is for a schedule I... Start Date: 07/24/22 Stop Date: 08/07/22 Status: Ordered Dexilant 60 mg oral delayed [...] opioid drug. Start Date: 04/24/21 Status: Ordered Ibuprofen 800 mg, By Mouth, Daily, PRN, Refills 0, Maintenance, Pain , Moderate, 06/25/23 14:16:00 EST, Partial fill upon patient request if the prescription is for a schedule II opioid drug. Start Date: 06/25/23 Status: Ordered labetalol 100 mg oral tablet [...] opioid drug. Start Date: 07/03/22 Status: Ordered sertraline 100 mg oral tablet 1 tablet = [...] [ ] MMR Confirmed Active Severe obesity (BMI 35.0-39.9) with comorbidity Confirmed Active 1on Sertraline now, helping and has therapist and psychatrist 2Smoke in the morning for nausea and anxiety Social History Social History Type Response Smoking Status Former smoker, quit more than 30 days ago entered on: 08/04/20 Sex Patient Care team information Care Team Personnel Name: Lane GAMBOA, Jarrod Oneil Position: Reference Physician Member Role: PCP Address: Address: [address] [place] [address] Drive [address] [place] [address] - Name: Katie Berger RN Position: [facility] RN Member Role: Primary Care Nurse Name: Loreto Powell RN Position: S RN Member Role: Primary Care Nurse Name: Jyoti Peraza RN Position: S RN Member Role: Primary Care Nurse Care Team Related Persons Name: LUIS ALBERTO MANJINDER Address: Address: home [address] [place], [place] Name: LUIS ALBERTO JOSE Address: Address: home [address] [place], [place] Name: DENNISE MCCLAIN Address: [place] [address]
--- OUTSIDE RECORDS SUMMARY | 2023-11-14 12:03 | XMS_ITS | Continuity of Care Document ---
Author Organization [facility] Address [address] [place] [address]- Care Team Providers Care Expediter Clerk Name Role Phone Jarrod Sherman MD Primary Care Physician Encounter [facility] Date(s): 07/03/23 - 08/02/23 [facility] Care [address] [place] [id number] Attending Physician: Kalen Yusuf Admitting Physician: AdmtrKalen Referring Physician: Admtr, ArFrieda Allergies, Adverse Reactions, Alerts Substance Reaction Severity Status amoxicillin Rash Active topiramate Swelling of throat Active Provera Bleeding Active Latex Skin rash Active Feraheme 1 Active 1Chest pressure, lightheaded, scratchy throat Immunizations [...] 07/24/22 8:20:00 EST, Route to Pharmacy Electronically, [facility], Partial fill upon patient [...] Reference Physician Member Role: PCP Address: Address: [address] [place] [address] Drive [address] [place] [address] - Name: Katie Berger RN Position: [facility] SN RN Member Role: Primary Care Nurse Name: Loreto Powell RN Position: S RN Member Role: Primary Care Nurse Name: Jyoti Peraza RN Position: S RN Member Role: Primary Care Nurse Care Team Related Persons Name: LUIS ALBERTOMANJINDER Address: Address: home [address] [place], [place] Name: SAHUJOSE Address: Address: home [address] [place], [place] Name: DENNISE MCCLAIN Address: [place] [address]
--- OUTSIDE RECORDS SUMMARY | 2023-11-14 12:03 | XMS_ITS | Continuity of Care Document ---
Author Organization [facility]essica [facility] Address [address] [place] [address], 4t [place] [address]- Care Team Providers Care Regional Retail Sales Manager Name Role Phone Jarrod Sherman MD Primary Care Physician [id number] Date(s): 05/24/23 - 06/23/23 [facility] Yessica Chiangs [facility] [address] [facility], 4th [place] [address]- Allergies, Adverse Reactions, Alerts Substance Reaction Severity [...] 07/24/22 8:20:00 EST, Route to Pharmacy Electronically, [facility], Partial fill upon patient [...] Care team information Care Team Personnel Name: Jarrod Sherman MD Position: Reference Physician Member Role: PCP Address: Address: [address] [place] [address] Drive [address] [place] [address] - Name: Katie Berger RN Position: [facility] SN RN Member Role: Primary Care Nurse Name: Loreto Powell RN Position: S RN Member Role: Primary Care Nurse Name: Jyoti Peraza RN Position: S RN Member Role: Primary Care Nurse Care Team Related Persons Name: SAHUMANJINDER Address: [address] Address: home [address] [place], [place] Name: JOES SAHU Address: [address] Address: home [address] [place], [place] Name: DENNISE MCCLAIN Address: [place] [address]
--- OUTSIDE RECORDS SUMMARY | 2023-11-14 12:03 | XMS_ITS | Continuity of Care Document ---
Author Organization [facility] ter Address [address] [place] [address]- Care Team Providers Care Senior Officer Name Role Phone Jarrod Sherman MD Primary Care Physician [place] [facility](s): 09/26/23 - 10/26/[address] [address]- Attending Physician: AdmtrKalen Admitting Physician: Admtr, Ptee8 Referring Physician: Admtr, Ar8 Allergies, Adverse Reactions, [...] 07/24/22 8:20:00 EST, Route to Pharmacy Electronically, [facility], Partial fill upon patient request if the prescription is for a schedule I... Start Date: 07/24/22 Stop Date: 08/07/22 Status: Ordered celecoxib 200 mg oral capsule = 200 mg, By Mouth, Daily, 0 Refills, Maintenance, 10/25/23 9:08:00 EDT, Capsule, Partial fill uponpatient request if the prescription is for a schedule II opioid drug. Start Date: 10/25/23 Status: Ordered Colace Capsule 100 mg, 1, [...] opioid drug. Start Date: 10/25/23 Status: Ordered morphine 15 mg oral tablet, immediate release = 15 mg, By Mouth, Every 4 hours, PRN Pain , Severe, for 7 days, # 42 tablet, 0 Refills, Acute 11/01/23 9:47:00 EDT, 10/25/23 9:47:00 EDT, Tablet, [facility], Partial fill upon patient request if the prescription is for a schedule II opi... Start Date: 10/25/23 Stop Date: 11/01/23 Status: Ordered pantoprazole 40 mg oral delayed [...] Reference Physician Member Role: PCP Address: Address: [address] [place] [address] Drive [address] [place] [address] - Name: Denise Hurt RN Position: [facility] RN Member Role: Primary Care Nurse Name: Katie Berger RN Position: [facility] RN Member Role: Primary Care Nurse Name: John Gtz RN Position: S RN Member Role: Primary Care Nurse Name: Loreto Powell RN Position: S RN Member Role: Primary Care Nurse Name: Jyoti Peraza RN Position: S RN Member Role: Primary Care Nurse Care Team Related Persons Name: LUIS ALBERTO MANJINDER Address: [address] Address: home [address] [place], [place] Name: JOSE SAHU Address: [address] Address: home [address] [place], [place] Name: DENNISE MCCLAIN Address: [place] [address]
--- OUTSIDE RECORDS SUMMARY | 2023-11-14 12:03 | XMS_ITS | Continuity of Care Document ---
Author Organization [facility] ter Address [address] [place] [address]- Care Team Providers Care Program Host Name Role Phone Jarrod Sherman MD Primary Care Physician Encounter [facility] Date(s): 09/16/23 - 10/26/[address] [address] Attending Physician: Jayson Johnson MD Admitting Physician: Jayson Johnson MD Referring Physician: Jayson Johnson MD Allergies, Adverse Reactions, Alerts Substance Reaction [...] 07/24/22 8:20:00 EST, Route to Pharmacy Electronically, [facility], Partial fill upon patient [...] 11/01/23 9:47:00 EDT, 10/25/23 9:47:00 EDT, Tablet, [facility], Partial fill upon patient request if [...] Reference Physician Member Role: PCP Address: Address: [address] [place] [address] Drive [address] [place] [address] - Name: Denise Hurt RN Position: [facility] RN Member Role: Primary Care Nurse Name: Katie Berger RN Position: [facility] RN Member Role: Primary Care Nurse Name: John Gtz RN Position: S RN Member Role: Primary Care Nurse Name: Loreto Powell RN Position: S RN Member Role: Primary Care Nurse Name: Jyoti Peraza RN Position: S RN Member Role: Primary Care Nurse Care Team Related Persons Name: LUIS ALBERTO MANJINDER Address: [address] Address: home [address] [place], [place] Name: JOSE SAHU Address: [address] Address: home [address] [place], [place] Name: DENNISE MCCLAIN Address: [place] [address]
--- OUTSIDE RECORDS SUMMARY | 2023-11-14 12:03 | XMS_ITS | Continuity of Care Document ---
Author Organization [facility] Yessica gant [facility] Address [address] [place] [address], 4t [place] [address]- Care Team Providers Care Truck Repair Supervisor Name Role Phone Jarrod Sherman MD Primary Care Physician [place] [facility] [place]s): 05/24/23 - 06/23/23 [facility] Yessica Chiangs [facility] [address] [facility], 4th [place] [address]- Allergies, Adverse Reactions, Alerts Substance Reaction Severity [...] Reference Physician Member Role: PCP Address: Address: [address] [place] [address] Drive [address] [place] [address] - Name: Katie Berger RN Position: [facility] SN RN Member Role: Primary Care Nurse Name: Loreto Powell RN Position: S RN Member Role: Primary Care Nurse Name: Jyoti Peraza RN Position: S RN Member Role: Primary Care Nurse Care Team Related Persons Name: SAHUMANJINDER Address: [address] Address: home [address] [place], [place] Name: JOSE SAHU Address: [address] Address: home [address] [place], [place] Name: DENNISE MCCLAIN Address: [place] [address]
--- OUTSIDE RECORDS SUMMARY | 2023-11-14 12:03 | XMS_ITS | Continuity of Care Document ---
Author Organization [facility] Address [address] [place] [address]- Care Team Providers Care Rf Test Technician Name Role Phone Jarrod Sherman MD Primary Care Physician [phone] Encounter 10/26/23 - 10/30/23 [facility] [address] [place] [address]- Discharge Disposition: [facility] Allergies, Adverse Reactions, Alerts Substance Reaction Severity Status amoxicillin Rash Active topiramate Swelling of throat Active Provera Bleeding Active Feraheme 1 Active Latex Skin rash Active 1Chest pressure, [...] 07/24/22 8:20:00 EST, Route to Pharmacy Electronically, [facility], Partial fill upon patient [...] mcg, By Mouth, Daily, 0 Refills, Maintenance, 01/17/23 14:13:00 EST, Partial fill upon patient request [...] 11/01/23 9:47:00 EDT, 10/25/23 9:47:00 EDT, Tablet, [facility], Partial fill upon patient request if [...] Reference Physician Member Role: PCP Address: Address: [address] [place] [address] Drive [address] [place] [address] - Name: Denise Hurt RN Position: S RN Member Role: Primary Care Nurse Name: Katie Berger RN Position: [facility] SN RN Member Role: Primary Care Nurse Name: John Gtz RN Position: S RN Member Role: Primary Care Nurse Name: Loreto Powell RN Position: S RN Member Role: Primary Care Nurse Name: Jyoti Peraza RN Position: S RN Member Role: Primary Care Nurse Care Team Related Persons Name: SAHUMANJINDER Address: [address] Address: home [address] [place], [place] Name: JOSE SAHU Address: [address] Address: home [address] [place], [place] Name: DENNISE MCCLAIN Address: [place] [address]
--- OUTSIDE RECORDS SUMMARY | 2023-11-14 12:03 | XMS_ITS | Continuity of Care Document ---
Author Organization [facility] Yessica [facility]ant [facility] Address [address] [facility], 4[place] [address]- Care Team Providers Care Mule Developer Name Role Phone Jarrod Sherman MD Primary Care Physician En[facility] Date(s): 10/30/22 - [facility]29[facility] [address], 4th Floor [place], [place] [address] Allergies, Adverse Reactions, Alerts Substance [...] opioid drug. Start Date: 07/24/22 Status: Ordered Aspirin Tablet 325 mg, By Mouth, 2 times a day, Refills 0, Maintenance, 07/24/22 8:20:00 EST, Partial fill upon patient request if the prescription is for a schedule II opioid drug. Start Date: 07/24/22 Status: Ordered baclofen 10 mg oral tablet 10 mg, 1, tablet, By Mouth, 3 times a day, # 42 tablet, Refills 0, Tot. Refills 0, Maintenance, 07/24/22 8:20:00 EST, Route to Pharmacy Electronically, [facility], Partial fill upon patient request if the prescription is for a schedule I... Start Date: 07/24/22 Stop Date: 08/07/22 Status: Ordered CeleBREX 200 mg oral capsule 1 capsule = 200 mg, By Mouth, 2 times a day, take while on menses do not mix with ibuprofen, # 60 capsule, 2 Refills, Maintenance, 07/03/22 14:00:00 EST, Capsule, [facility]acy #[id number], Partial fill upon patient request if the prescription is for a douglas... Start Date: 07/03/22 Status: Ordered Colace Capsule 100 mg, 1, capsule, By Mouth, 2 times a day, Hold for loose stools, Refills 0, Maintenance, 07/24/22 8:20:00 EST, Partial fill upon patient request if the prescription is for a schedule II opioid drug. Start Date: 07/24/22 Status: Ordered Dexilant 60 mg oral delayed [...] opioid drug. Start Date: 07/03/22 Status: Ordered Maalox Plus Liquid 30 mL, By Mouth, Every 4 hours, PRN Other, Heartburn, 0 Refills, Maintenance, 07/24/22 8:19:00 EST,Suspension, Partial fill upon patient request if the prescription is for a schedule II opioid drug. Start Date: 07/24/22 Status: Ordered MiraLax Powder 1 pack/packet = 17 Gm, By Mouth, Daily, PRN Constipation, 0 Refills, Maintenance, 07/24/22 8:20:00 EST, Powder, Partial fill upon patient request if the prescription is for a schedule II opioid drug. Start Date: 07/24/22 Status: Ordered MOM Liquid 30 mL, By Mouth, Daily, PRN Constipation, 0 Refills, Maintenance, 07/24/22 8:20:00 EST, Suspension,Partial fill upon patient request if the prescription is for a schedule II opioid drug. Start Date: 07/24/22 Status: Ordered senna 187 mg oral tablet 1 tablet = 8.6 mg, By Mouth, Daily at bedtime, PRN as needed for constipation, 0 Refills, Maintenance, 07/24/22 8:20:00 EST, Tablet, Partial fill upon patient request if the prescription is for a schedule II opioid drug. Start Date: 07/24/22 Status: Ordered sertraline 100 mg oral tablet [...] Reference Physician Member Role: PCP Address: Address: [address] [place] [address] [address] [place] [address]- Name: Katie Berger RN Position: S RN Member Role: Primary Care Nurse Name: Loreto Powell RN Position: S RN Member Role: Primary Care Nurse Name: Jyoti Peraza RN Position: S RN Member Role: Primary Care Nurse Care Team Related Persons Name: MANJINDER SAHU Address: [address] Address: home [address] [place] [address] [place] Name: JOSE SAHU Address: [address] Address: home [address] [place] [address] [place] Name: DENNISE MCCLAIN Address: [place] [address]
--- OUTSIDE RECORDS SUMMARY | 2023-11-14 12:04 | XMS_ITS | Continuity of Care Document ---
Author Organization [facility] Address [address] [place] [address], 4t [place] [address]- Care Team Providers Care Sales And Marketing Assistant Name Role Phone Jarrod Sherman MD Primary Care Physician [phone] [id number] 05/13/23 - 06/12/23 [facility] Y[facility]ica[facility] Chiangs [facility] [address] [facility], 4th [place] [address]- Allergies, Adverse Reactions, Alerts Substance Reaction Severity [...] 07/24/22 8:20:00 EST, Route to Pharmacy Electronically, [facility], Partial fill upon patient request if the prescription is for a schedule I... Start Date: 07/24/22 Stop Date: 08/07/22 Status: Ordered CeleBREX 200 mg oral capsule 1 capsule = 200 mg, By Mouth, 2 times a day, take while on menses do not mix with ibuprofen, # 60 capsule, 2 Refills, Maintenance, 07/03/22 14:00:00 EST, Capsule, [facility] #[id number], Partial fill upon patient request if [...] opioid drug. Start Date: 07/23/22 Status: Ordered Diflucan 150 mg oral tablet 1 tablet = 150 mg, By Mouth, Once, # 1 tablet, 0 Refills, Soft Stop, 06/04/23 10:09:00 EST, Tablet,[id number], Partial fill upon patient request if the prescription is for a schedule II opioid drug., 155, cm, 05/13/23 14:07:00 EST, Height, 99... Start Date: 06/04/23 Status: Ordered Gabapentin = 400 mg, By [...] opioid drug. Start Date: 07/24/22 Status: Ordered norethindrone 5 mg oral tablet 5 mg, 1, tablet, By Mouth, Daily, # 30 tablet, Refills 0, Tot. Refills 0, Maintenance, 05/14/23 18:08:00 EST, Route to Pharmacy Electronically, [facility] #[id number], Partial fill upon patient request if the prescription is for a schedule II opioid drug.... Start Date: 05/14/23 Status: Ordered senna 187 mg oral tablet [...] Reference Physician Member Role: PCP Address: Address: [address] [place] [address] Drive [address] [place] [address] - Name: Katie Berger RN Position: [facility] SN RN Member Role: Primary Care Nurse Name: Loreto Powell RN Position: S RN Member Role: Primary Care Nurse Name: Jyoti Peraza RN Position: S RN Member Role: Primary Care Nurse Care Team Related Persons Name: MANJINDER SAHU Address: [address] Address: home [address] [place], [place] Name: JOSE SAHU Address: [address] Address: home [address] [place], [place] Name: DENNISE MCCLAIN Address: [place] [address]
--- OUTSIDE RECORDS SUMMARY | 2023-11-14 12:04 | XMS_ITS | Continuity of Care Document ---
Author Organization [facility] Yessica gant [facility] Address [address] [facility], 4t [place] [address]- Care Team Providers Care Furnace Repairer Helper Name Role Phone Jarrod Sherman MD Primary Care Physician [place] [facility] [place]s): 02/28/23 - 03/07/23 [facility] Yessica LeonJoopLoops [facility] [address], 4th [place] [address]- Attending Physician: Denise Laws MD Referring Physician: Not on Staff, Referring MD Allergies, Adverse Reactions, Alerts Substance Reaction Severity Status amoxicillin Rash Active Provera Bleeding Active topiramate Swelling of throat Active Latex Skin rash Active Immunizations Given [...] 07/24/22 8:20:00 EST, Route to Pharmacy Electronically, [facility], Partial fill upon patient request if the prescription is for a schedule I... Start Date: 07/24/22 Stop Date: 08/07/22 Status: Ordered CeleBREX 200 mg oral capsule 1 capsule = 200 mg, By Mouth, 2 times a day, take while on menses do not mix with ibuprofen, # 60 capsule, 2 Refills, Maintenance, 07/03/22 14:00:00 EST, Capsule, [id number], Partial fill upon patient [...] Reference Physician Member Role: PCP Address: Address: [address] [place] [address]- [place] Name: Katie Berger RN Position: S RN Member Role: Primary Care Nurse Name: Loreto Powell RN Position: S RN Member Role: Primary Care Nurse Name: Jyoti Peraza RN Position: S RN Member Role: Primary Care Nurse Care Team Related Persons Name: LISA SAHULOI Address: [address] Address: home [address] [place], [place] Name: JOSE SAHU Address: [address] Address: home [address] [place] [address] [place] Name: DENNISE MCCLAIN Address: [place] [address]
--- OUTSIDE RECORDS SUMMARY | 2023-11-14 12:04 | XMS_ITS | Continuity of Care Document ---
Author Organization [facility] Yessica [facility]am [facility] Address [address], [address] [place] [address]- Care Team Providers Care Mva Operator Name Role Phone Jarrod Sherman MD Primary Care Physician [phone] Encounter [facility] [place] [facility] Date(s): 10/10/23 - 11/09/23 [facility] [place] [facility] [address] [place], [place] [address] Allergies, Adverse Reactions, Alerts Substance Reaction Severity Status amoxicillin Rash Active Feraheme 1 Active topiramate Swelling of throat Active Provera [...] 07/24/22 8:20:00 EST, Route to Pharmacy Electronically, [facility], Partial fill upon patient [...] Acute 11/15/23 15:39:00 EDT, 11/08/23 15:39:00 EDT, [facility]/pharmacy #[id number], APPLY TO AFFECTED AREA AT BEDTIME [...] Reference Physician Member Role: PCP Address: Address: [address] [place] [address] Drive [address] [place] [address] - Name: Denise Hurt RN Position: [facility] RN Member Role: Primary Care Nurse Name: Katie Berger RN Position: [facility] SN RN Member Role: Primary Care Nurse Name: John Gtz RN Position: S RN Member Role: Primary Care Nurse Name: Loreto Powell RN Position: S RN Member Role: Primary Care Nurse Name: Jyoti Peraza RN Position: S RN Member Role: Primary Care Nurse Care Team Related Persons Name: LUIS ALBERTO MANJINDER Address: [address] Address: home [address] [place], [place] Name: JOSE SAHU Address: [address] Address: home [address] [place], [place] Name: DENNISE MCCLAIN Address: [place] [address]
--- OUTSIDE RECORDS SUMMARY | 2023-11-14 12:04 | XMS_ITS | Continuity of Care Document ---
Author Organization [facility] ter Address [address] [place] [id number] Care Team Providers Care Sterilization Technician Name Role Phone Jarrod Sherman MD Primary Care Physician [place] [facility] [place] - 07/24/[address] [id number] Discharge Disposition: A-Transfer VNA/Home Health Attending Physician: Jayson Johnson MD Admitting Physician: [...] baclofen 10 mg oral tablet 10 mg, Tablet, By Mouth, 07/24/22 9:00:00 EST Start Date: 07/24/22 Stop Date: 07/24/22 Status: Completed baclofen 10 mg oral tablet 10 mg, 1, tablet, By Mouth, 3 times a day, # 42 tablet, Refills 0, Tot. Refills 0, Maintenance, 07/24/22 8:20:00 EST, Route to Pharmacy Electronically, [facility], Partial fill upon patient request if the prescription is for a schedule I... Start Date: 07/24/22 Stop Date: 08/07/22 Status: Ordered CeleBREX 200 mg oral capsule 1 capsule = 200 mg, By Mouth, 2 times a day, take while on menses do not mix with ibuprofen, # 60 capsule, 2 Refills, Maintenance, 07/03/22 14:00:00 EST, Capsule, [facility]/pharmacy #[id number], Partial fill upon [...] opioid drug. Start Date: 04/24/21 Status: Ordered gabapentin 400 mg oral capsule 400 mg, Capsule, By Mouth, 07/24/22 9:00:00 EST Start Date: 07/24/22 Stop Date: 07/24/22 Status: Completed labetalol 100 mg oral tablet 200 mg, Tablet, By Mouth, 07/24/22 9:00:00 EST Start Date: 07/24/22 Stop Date: 07/24/22 Status: Completed labetalol 100 mg oral tablet 2 tablet [...] opioid drug. Start Date: 07/24/22 Status: Ordered oxyCODONE 5 mg oral tablet 5 mg, 1, tablet, By Mouth, Every 4 hours, PRN, for 7 days, # 42 tablet, Refills 0, Tot. Refills 0, Acute 07/31/22 8:32:00 EST, Pain , Moderate, 07/24/22 8:32:00 EST, Route to Pharmacy Electronically,[facility], Partial fill upon patient... Start Date: 07/24/22 Stop Date: 07/31/22 Status: Ordered OxyCODONE IR Tablet 10 mg, Tablet, By Mouth, Every 3 hours, PRN for Pain , Severe, Routine, 07/23/22 16:40:00 EST Start Date: 07/23/22 Stop Date: 07/24/22 Status: Discontinued senna 187 mg oral tablet 1 tablet [...] opioid drug. Start Date: 08/18/20 Status: Ordered traMADol 50 mg oral tablet See Instructions, PRN Pain , Mild, Take 1-2 tablets every 6 hours as needed for mild pain., # 56 tablet, 0 Refills, Acute 08/01/22 8:00:00 EST, 07/24/22 8:18:00 EST, Tablet, [facility],Partial fill upon patient request if the prescripti... Start Date: 07/24/22 Stop Date: 08/01/22 Status: Ordered Problem List Condition Confirmation Course [...] in the morning for nausea and anxiety Results Radiology Reports * Exam Date Time Procedure Performing Provider Status 07/23/22 10:12 PM Pelvis 1 or 2 Views Vielka Cantu; Colin (Verified) Notes: (Pelvis 1 or 2 Views) Reason For Exam: Postop Prosthesis RESULT: Pelvis 1 or 2 Views PROCEDURE: Pelvis 1 or 2 Views CLINICAL INDICATION: 31 years old Female with Reason: Postop Prosthesis; Clinical Question(s): Status of Hip Prosthesis; Special Instructions: RIGHT Hip - Do today at 2200. TECHNIQUE: AP pelvis is obtained. COMPARISONS: Intraoperative images of the same day. FINDINGS: AP view of the pelvis excluding the iliac crests obtained. Total RIGHT hip replacement prosthesis without cement or screws noted in good alignment as can be seen on the frontal projection. Expected subcutaneous emphysema noted overlying the RIGHT hip. Mild degenerative changes at the LEFT hip joint. IMPRESSION: 1. Good alignment of the total RIGHT hip are present prosthesis in the frontal projection. Expectedpostoperative changes. Thank you for allowing me to participate in the care of this patient. WSN: [id number] Ordering Physician: Morro Diaz Dictated By: Jeovanny Castellon MD Dictated Date/Time: 07/24/22 0:12 am Reviewed By: Jeovanny Castellon MD Signed By: Jeovanny Castellon MD Signed Date/Time: 07/24/22 0:12 am Transcribed By: MARLA Transcribed Date/Time: 07/24/22 0:10 am * Exam Date Time Procedure Performing Provider Status 07/23/22 3:36 PM Pelvis 1 or 2 Views Rachael Carrasco [facility] (Verified) Notes: (Pelvis 1 or 2 Views) Reason For Exam: RT Hip OA RESULT: Pelvis 1 or 2 Views Pelvis 1 or 2 Views INDICATION: Reason: RT Hip OA COMPARISONS: None TECHNIQUE: Fluoroscopy support was provided. There was no radiologist in attendance. FLUOROSCOPY TIME: 08.0 seconds EXPOSURE: 0.7571 Gycm2 TECHNOLOGIST TIME: 45 minutes FINDINGS: 16 images were submitted showing right total hip arthroplasty. Please refer to operative note for full details. IMPRESSION: See above. WSN: [id number] Ordering Physician: Jayson Johnson Dictated By: Paxton Nava MD Dictated Date/Time: 07/23/22 5:29 pm Reviewed By: Paxton Nava MD Signed By: Paxton Nava MD Signed Date/Time: 07/23/22 5:29 pm Transcribed By: MARLA Transcribed Date/Time: 07/23/22 5:29 pm * Exam Date Time Procedure Performing Provider Status 07/23/22 3:36 PM C-Arm < 1 Hour Rachael Carrasco ( Verified) Notes: (C-Arm < 1 Hour) Reason For Exam: RIGHT ANTERIOR HIP TOTAL REPLACEMENT RESULT: C-Arm < 1 Hour C-Arm < 1 Hour INDICATION: Reason: RIGHT ANTERIOR HIP TOTAL REPLACEMENT; Special Instructions: F.T. 00:08.0 DAP 0.7571 COMPARISONS: None TECHNIQUE: Fluoroscopy support was provided. There was no radiologist in attendance. FLUOROSCOPY TIME: 8.0 seconds TECHNOLOGIST TIME: 45 minutes FINDINGS: Fluoroscopy support was provided. There was no radiologist in attendance. IMPRESSION: See above. WSN: [id number] Ordering Physician: Jayson Johnson Dictated By: Balta Bain MD Dictated Date/Time: 07/24/22 12:47 p Reviewed By: Balta Bain MD Signed By: Balta Bain MD Signed Date/Time: 07/24/22 12:47 pm Transcribed By: MARLA Transcribed Date/Time: 07/23/22 4:01 pm Vital Signs Most recent to oldest [Reference Range]: 1 2 3 Height 155 cm (07/24/22 8:09 AM) 155 cm (07/23/22 12:25 PM) 155 cm (07/23/22 6:57 AM) Weight 109 kg (07/23/22 12:25 PM) 109 kg (07/23/22 6:57 AM) Oxygen Saturation [94-100 %] 100 % (07/24/22 8:09 AM) 100 % (07/24/22 3:00 AM) 100 % (07/23/22 11:00 PM) Pulse Rate [55-90 bpm] 59 bpm (07/24/22 8:11 AM) 59 bpm (07/24/22 8:09 AM) 62 bpm (07/24/22 3:00 AM) Body Mass Index [18.5-24.99 kg/m2] 45.37 kg/m2 *>HHI* (07/23/22 12:25 PM) 45.37 kg/m2 *>HHI* (07/23/22 6:57 AM) Blood Pressure [90-138/55-84 mm Hg] 136/69mm Hg (07/24/22 8:11 AM) 136/69mm Hg (07/24/22 8:09 AM) 160/64mm Hg *H* (07/24/22 3:00 AM) Respiratory Rate [16-30 br/min] 18 br/min (07/24/22 8:12 AM) 18 br/min (07/24/22 8:12 AM) 18 br/min (07/24/22 8:11 AM) Temperature [96.8-100.4 DegF] 97.9 DegF (07/24/22 8:09 AM) 97.6 DegF (07/24/22 3:00 AM) 97.9 DegF (07/23/22 11:00 PM) Mode of Delivery (Oxygen) Room air (07/24/22 8:09 AM) Room air (07/24/22 3:00 AM) Room air (07/23/22 11:00 PM) Blood pressure sites Arm, left (07/24/22 3:00 AM) Arm, left (07/23/22 11:00 PM) Arm, left (07/23/22 7:00 PM) Temperature Route Oral (07/24/22 8:09 AM) Oral (07/24/22 3:00 AM) Oral (07/23/22 11:00 PM) Dry Weight 109 kg (07/23/22 6:57 AM) Social History Social History Type Response Smoking Status Former smoker, quit more than 30 days ago entered on: 08/04/20 Sex Surgical pathology study * Event Display: Surgical Pathology Authored Date: Patient Name: GABRIELLA STERLING Lab Patient : 1990 (Age: 31) Collection Date: 07/23/2022 Accession Date: 07/23/2022 Sign Out Date: 07/23/2022 Tissue Source: 1:RIGHT FEMORAL HEAD Final Diagnosis: Femoral head, right, replacement: - Femoral head with degenerative changes of articular cartilaginous surface and eburnation consistent with severe osteoarthritis (gross examination). Primary Pathologist:Navneet Ly MD electronically signed out by: Navneet Ly MD / [facility] Clinical History: Osteoarthritis of right hip Gross Description: Labeled right femoral head . Received in formalin is a 5.5 x 5 x 3.6 cm femoral head with up to 0.6 cm of attached femoral neck. The margin of transection is smooth. The articular surface ranges from pink-red, granular to white-pink, glistening. Scant eburnation is present; pitting is not grossly identified. Osteophytes are present. Sectioning reveals red, trabecular cut surfaces. No sections are submitted. Gross exam only. (KM)* Phone #: [phone], On-Call Pathologist: [id number] History and physical note * Event Display: History and Physical Hospital Authored Date: [id number] * Event Display: History and Physical Hospital Authored Date: [id number] SURGICAL HISTORY AND PHYSICAL DATE: 07/23/2022 PRIMARY DIAGNOSIS: Osteoarthritis of the right hip. REASON FOR ADMISSION: The patient is being admitted for right total hip replacement with Dr. Johnson on 07/23/2022. HISTORY OF PRESENT ILLNESS: The patient is a 31-year-old female who presents today for evaluation of her right hip. She has a known longstanding history of bilateral hip osteoarthritis with the rightbeing worse than the left. She has undergone a lengthy course of conservative management with generalized failure of nonsurgical options. Her pain is severe and worsened with activity. She is now ready to pursue an anterior right total hip replacement with Dr. Johnson on 07/23/2022. PAST MEDICAL HISTORY: 1. Bilateral hip osteoarthritis, right being worse than left. 2. Anemia. 3. Anxiety. 4. Bipolar. 5. Carpal tunnel. 6. Hypertension. 7. Depression. 8. Gestational diabetes. 9. Fibromyalgia. 10. GERD. 11. Hemorrhoids. 12. COVID. 13. Preeclampsia. 14. Marijuana usage. 15. Migraines. 16. Obesity, BMI 42.5. 17. Panic attacks. 18. PCOS. 19. hemorrhage. 20. Valvular . 21. Wound cellulitis after surgery. 22. Constipation. 23. Hypertension. 24. Urinary tract infection. She recently just finished antibiotics for. 25. Chest pain since April 2022, she had a full workup by cardiology, which was negative. PAST SURGICAL HISTORY: 1. Adenoidectomy. 2. EGD. 3. Pender teeth removal. 4. Anal cyst with biopsy. 5. Abdominal wall cystectomy. MEDICATIONS: 1. Gabapentin 400 mg 3 times a day. 2. Ibuprofen as needed. She was instructed to stop 10 days before surgery. 3. Labetalol 200 mg 2 times a day. 4. Sertraline 100 mg in the morning. 5. Linzess for constipation. She was instructed to bring this with her to the hospital. 6. Lidocaine patches, which she was instructed to stop 7-10 days before surgery. ALLERGIES: She is allergic to LATEX, which causes a rash. She is allergic to PROVERA, which causes bleeding. She is allergic to AMOXICILLIN, which causes a rash and vomiting. She is allergic to TOPIRAMATE, which causes swelling of the throat. SOCIAL HISTORY: She denies alcohol or tobacco usage. She does report marijuana usage. She was instructed to stop 3 days before surgery. PHYSICIANS: Primary care physician is Dr. Jarrod Sherman. REVIEW OF SYSTEMS: The patient denies headache, dizziness or syncope. Denies fever, chills, unexplained weight loss or fatigue. Denies rash or lesions. Denies rhinorrhea, earache, sore throat or swollen glands. Denies cough, shortness of breath or wheezing. She does report chest pain that has been o ngoing since April 2022, she reports it is in her upper abdomen and all over her anterior chest area. She denies pressure, palpitations or edema. Denies nausea, vomiting, diarrhea, constipation, or abdominal pain. Denies dysuria, urinary urgency or frequency. Denies calf pain or history of bloodclots in the legs. Denies any bleeding tendencies. She does report possibly some active dental issues at this time. She reports she had 2 root canals in the past, which have been bothering her recently. PHYSICAL EXAMINATION: VITAL SIGNS: Height 61 inches, weight 219 pounds. Temperature 96.7, blood pressure 140/80, pulse 65. GENERAL: Alert and oriented. Normal insight, affect, and grooming, in no acute distress. SKIN: Intact without rash or lesions. Nails without clubbing or cyanosis. HEENT: Normocephalic. Conjunctivae pink. Sclerae are anicteric. NECK: Supple. Trachea midline. No lymphadenopathy. CHEST: Clear to auscultation bilaterally and breathing is unlabored. CARDIOVASCULAR: Has a regular rate and rhythm with normal S1, S2, no murmurs, rubs or gallops appreciated. No JVD. Carotid pulses without bruits. ABDOMEN: Soft, nontender with normal bowel sounds. No masses noted. No bruits appreciated. EXTREMITIES: No erythema, no abrasions, no edema noted. Skin temperature is normal. Swelling is notpresent. She has 2+ dorsalis pedis pulses bilaterally. Good dorsi and plantar flexion bilaterally with full strength. Skin about the feet is intact. Calves are supple, nontender. PREOPERATIVE DIAGNOSTIC DATA: Orthopedic x-rays demonstrate osteoarthritis of bilateral hips. EKG, which reads normal sinus rhythm, 60 beats per minute. The patient saw cardiology, where they did a stress test and they stated her chest discomfort at baseline, which remained unchanged during the test without arrhythmia with normotensive response to injection with nondiagnostic EKG for ischemia, T-wave inversions noted post-injection, without ST depression. The stress perfusion study showed no significant perfusion abnormality. Both uncorrected as well asCT attenuation corrected images were reviewed. LV systolic function, ejection fraction of 61%. Leftventricular cavity is normal in size. The gated study shows normal wall thickening and contraction of segments. The resting study shows no significant perfusion abnormality, gaiting at rest of reviews normal wall motion. LVEF during gaiting not reliable. Visually appears normal. The findings are consistent with no clear reversible or fixed perfusion defects. Myocardial perfusion imaging study shows likely normal myocardial perfusion, transient ischemic dilation not present. LABORATORY DATA: CBC, chem panel, coag studies within normal limits. Her H and H is 10.5 and 33.6. A1c 5.4. She was sent today for repeat urinalysis as she stated she recently just had a UTI. ASSESSMENT AND PLAN: The patient has advanced osteoarthritis of the right hip and is now scheduled for right total hip replacement via anterior approach with Dr. Johnson on 07/23/2022. The patient saw the medical consult team for preoperative clearance, who stated she was a low risk for upcoming surgery. No further testing required at this time. The patient did state today that she recently had a UTI and just finished antibiotics. She was instructed that we need a repeat urinalysis prior to surgery. Urinalysis and culture was ordered for her to get done. She also reported that she has been having some issues with her 2 root canals she had done and she was instructed she needs to have a dental clearance for surgery. The patient reports that she would call us and update us when she is ableto get into the dentist. The patient has been having ongoing chest pain since April; however, she was seen by cardiology and had a workup, which was negative. The patient will receive IV TXA. She will be on aspirin postoperatively for DVT prophylaxis. Discharge plans are to home. The patient is a candidate to go home the same day of surgery if she wishes. The patient will receive 1 week in-home physical therapy and then will go to outpatient. The patient has been counseled regarding the risks and benefits of the proposed procedure. Her questions have been answered and she acknowledges understanding. The patient wishes to proceed with surgery and has signed the consents. CONTACTS: Her mother, William, phone number [phone]. Prescriptions given at the time of H and P include aspirin, Celebrex, Colace, Pantoprazole and Tylenol. She requires prescription for pain medications upon discharge. Dictated by: Caprice Ramos N.P. Signing Clinician: Jayson Johnson M.D. Dictated: 07/13/2022 12:41:56 Transcribed: 07:15:08 AM Transcribed by: GEOVANNI/LIZ/DURAN DocID: [id number] PRELIMINARY REPORT UNLESS MANUALLY/ELECTRONICALLY SIGNED * Richard MORTENSEN, Caprice Solo: PERFORM Event Display: History and Physical Hospital Authored Date: Urinalysis appears to be negative for UTI. Awaiting dental clearance for patient. Note * Event Display: Adult Preadmission Health Questionnaire Authored Date: * Event Display: Cardiac Rhythm Strips Authored Date: * Alicia Coleman RN: PERFORM Event Display: Discharge/Transfer Note Hospital Authored Date: Nursing Discharge Note Entered On: 07/24/2022 10:30 EST Performed On: 07/24/2022 10:30 EST by Alicia Coleman RN Nursing Discharge Note 2 Discharge Time : 07/24/2022 10:55 EST Alicia Coleman RN - 07/24/2022 10:56 EST Discharge Level of Care at Discharge : Homehealth/VNA Discharge VNA/Hospice/Home Care(v001) : [facility] Patient Left Unit Via : Wheelchair Patient Accompanied Off Unit with : Responsible adult DC Instructions Provided & Signed by Pt : Yes Patient Understands D/C Instructions : Yes Patient Instructions Discharge Signed : Yes Did Pt have Specialty Bed or Wound Vac : No Alicia Coleman RN - 07/24/2022 10:30 EST * Sapphire Sawyer NP: PERFORM, SIGN, VERIFY, MODIFY, SIGN Event Display: Discharge/Transfer Note Hospital Authored Date: Patient: GABRIELLA STERLING Age: 31 years Sex: Female : 1990 Associated Diagnoses: None Author: Silverio MORTENSEN, Sapphire Discharge Summary Admission Date: July 23, 2022 Discharge Date: July 24, 2022 Admitting Diagnosis: Right hip osteoarthritis Discharge Diagnosis: Right hip osteoarthritis Final Diagnosis : Right hip osteoarthritis Procedure: Right total anterior hip arthroplasty Surgeon: Dr. Jayson Johnson Past Medical History: 1. Bilateral hip osteoarthritis, right being worse than left. 2. Anemia. 3. Anxiety. 4. Bipolar. 5. Carpal tunnel. 6. Hypertension. 7. Depression. 8. Gestational diabetes. 9. Fibromyalgia. 10. GERD. 11. Hemorrhoids. 12. COVID. 13. Preeclampsia. 14. Marijuana usage. 15. Migraines. 16. Obesity, BMI 42.5. 17. Panic attacks. 18. PCOS. 19. hemorrhage. 20. Valvular . 21. Wound cellulitis after surgery. 22. Constipation. 23. Hypertension. 24. Urinary tract infection. She recently just finished antibiotics for. 25. Chest pain since April 2022, she had a full workup by cardiology, which was negative. PAST SURGICAL HISTORY: 1. Adenoidectomy. 2. EGD. 3. Pender teeth removal. 4. Anal cyst with biopsy. 5. Abdominal wall cystectomy. Orthopedics: The patient is status post right total anterior hip arthroplasty. It is anticipated that she will be discharged home today pending PT, OT clearance. The patient is doing well from a surgical standpoint. Her incision is healing well. Neurovascular status is intact. Calves are supple andnontender. Making good progress with Physical Therapy and Occupational therapy. Supervision with ambulation walking 30 feet , ambulating with a walker weightbearing as tolerated. . Pain is well controlled on her current regimen, Acetaminophen 650 mg every 6 hours, Celebrex 200 mg daily, tramadol asneeded for mild pain, and oxycodone as needed for severe pain. . Patient is tolerating this well. She will be sent home with a prescription for this medication. Prescription: Tramadol 50 mg tablet. Take 1-2 tablets every 6 hours as needed for pain x 7 days. # 56 tablet. Oxycodone IR 5mg tablet. Take 1 tablets every 4 hours as needed for pain x 7 days. # 42 tablet. Perinsurance restrictions. Prior authorization started at [facility] Hospital course: Relatively uneventful medically. Struggled with pain overnight. Toradol and baclofen was added. Oxycodone increased to every 3 hours however due to insurance restrictions the patient will only receive every 4 hours at home.. Pain is controlled now. Patient is voiding spontaneously. + bowel sounds. No other issues. No calf tenderness. Current Medication List: Acetaminophen: 650 mg, By Mouth, Every 6 hours, May take OTC not to exceed 3000 mg/day Al Hydroxide/Mg Hydroxide/Simethicone: 30 mL, By Mouth, Every 4 hours, PRN (Other), Heartburn Aspirin: 325 mg, By Mouth, 2 times a day Baclofen: 10 mg = 1 tablet, By Mouth, 3 times a day Celecoxib: 200 mg = 1 capsule, By Mouth, 2 times a day, take while on menses do not mix with ibuprofen dexlansoprazole: 60 mg = 1 capsule, By Mouth, Daily Docusate: 100 mg = 1 capsule, By Mouth, 2 times a day, Hold for loose stools Gabapentin: 400 mg, By Mouth, 3 times a day Labetalol: 200 mg = 2 tablet, By Mouth, 2 times a day linaclotide: 145 mcg, By Mouth, Daily Milk of Magnesia: 30 mL, By Mouth, Daily, PRN (Constipation) Oxycodone: 5 mg = 1 tablet, By Mouth, Every 4 hours, PRN (Pain , Moderate) Polyethylene Glycol 3350: 17 Gm = 1 pack/packet, By Mouth, Daily, PRN (Constipation) Senna: 8.6 mg = 1 tablet, By Mouth, Daily at bedtime, PRN (as needed for constipation) Sertraline: 100 mg = 1 tablet, By Mouth, Daily in AM Tramadol: See Instructions, PRN (Pain , Mild), Take 1-2 tablets every 6 hours as needed for mild pain. Allergies: Allergies (Active and Proposed Allergies Only) topiramate (Severity: Unknown severity, Onset: Unknown) Reactions: Swelling of throat Provera (Severity: Unknown severity, Onset: Unknown) Reactions: Bleeding Latex (Severity: Unknown severity, Onset: Unknown) Reactions: Skin rash amoxicillin (Severity: Unknown severity, Onset: Unknown) Reactions: Rash Current Labs: Last 24 Hours Basic Metabolic Panel: Hematology: Sodium: 140 mmol/L (07/24/22) Hgb: 9.5 Gm/dL (07/24/22) Potassium (POC): 4.2 mmol/L (07/24/22) Hemoglobin A1C (Monitoring): ------ Phosphorus: ------ WBC: 15.8 k/mm3 (07/24/22) Magnesium: ------ Platelets: 259 k/mm3 (07/24/22) BUN (POC) POC Cartridge: 8 mg/dL (07/24/22) INR Level: ------ Creatinine-Blood: 0.5 mg/dL (07/24/22) Creatinine Clearance: ------ Additional - Last 24 Hours Abs. NRBC: 0.0 k/mm3 (07/24/22) Anion Gap: 13 (07/24/22) Bicarbonate Level: 22 mmol/L (07/24/22) Blood : <1 mIU/mL (07/23/22) BUN: BUN (07/24/22) Chloride: 105 mmol/L (07/24/22) Creatinine, Blood: Creatinine, Blood (07/24/22) Estimated GFR Creatinine: 128 ML/MIN/1.73 M2 (07/24/22) Hct: 30.1 % (07/24/22) MCH: 26.4 pg (07/24/22) MCHC: 31.6 g/dL (07/24/22) MCV: 83.6 femtoliters (07/24/22) MPV: 11.9 femtoliters (07/24/22) Nucleated RBC (Automated): 0.0 #/100 WBC'S (07/24/22) RBC: 3.60 m/mm3 (07/24/22) RDW-SD: 45.8 femtoliters (07/24/22) Surgical Pathology: Surgical Pathology (07/23/22) DVT prophylaxis ASA EC 325 mg p o bid x 30 days Disposition: Anticipates being discharged today to home. Follow up at [facility] on August 07, 2022 at 2:15 PM, patient is aware of this. The patient has an Silverlon dressing in place. She may shower with it and the dressing can be discontinued on POD 14. Discharge Information Admission Date: 07/23/2022 Principal Discharge Diagnosis Discharge Plan Discharge Disposition Discharge: home with A. Home Health Face to Face I certify that this patient is under my care and that I or an allowed non- physician practitioner working with me, had a [id number] encounter with the patient on this date: 07/24/2022. The encounter with the patient was in whole, or in part, for the following medical condition, whichis the primary reason for home health care: Osteoarthritis of right hip. Physical Therapy: Functional mobility training, Home exercise program to strengthen, increase ROM, Falls prevention training. Occupational Therapy: ADL Management, Fall prevention training. Homebound due to: Inability to leave home without assistance/supervision, Inability to ambulate without assistance. Physician Signature: Alex GAMBOA, Jayson Nova * Jared MYERS, Alicia: PERFORM Event Display: Patient Education/Instruction Authored Date: [id number] Inpatient Adult Discharge Instructions [address] [id number] Name: GABRIELLA STERLING : 1990 Visit: 07/23/2022 06:14:00 Current Date: 07/24/2022 10:31 Account: [id number] Inpatient Adult Discharge Instructions We would like to thank you for allowing us to assist you with your healthcare needs. The following includes patient education materials and information regarding your injury/illness. Our entire staffstrives to provide an excellent experience for our patients and their families. PLEASE ENSURE YOU FOLLOW-UP PER THE INSTRUCTIONS BELOW! ?? YOUR OPINION IS IMPORTANT TO US! Please complete the survey you may receive by mail or email. Your feedback will be used to make improvements to the healthcare experiences of our patients and their families. Surveys are administered by [employer] ?? If further treatment with your primary care physician or another doctor is recommended, it is important for you to keep the appointment. Call your primary care physician or return to the Emergency Department immediately if your condition worsens, fails to improve, or new symptoms develop. If you need to find a doctor, you can call [facility] [employer] for a referral at [phone] or toll free at [phone] or log in to [email or web address].. ?? You can view and manage your care through the patient portal or by using a health care patel of your choosing. [employer] is a website that allows you to securely view your medical information including your hospital discharge summary, office visit summaries, medications and follow-up visits. You can also request appointments, renew medications, and request access to your medical information using a health care patel of your choosing, or just ask a question. You can enroll at [email or web address] or register during your next office visit. You have been discharged from [facility], Patient Care Unit: SW7. If you have any questions regarding these instructions after you leave, please call us and we will be happy to assist you. [facility] Your Care Team Attending Physician Alex GAMBOA, Jayson Faria Consulting Providers Alex GAMBOA, Jayson Faria Discharging Providers Silverio MORTENSEN, Sapphire Reason for Admission OA RIGHT HIP [id number] Your Diagnosis Osteoarthritis of right hip Tests Performed Below is a partial list of the tests performed during your hospitalization. You may have had other tests and procedures not included in this list. Please discuss all test results with your provider. 34410 Beta HCG Serum (Females Only) BUN CBC Creatinine Electrolytes XR C-Arm < 1 Hour?-- Results Pending -- XR Pelvis 1 or 2 Views ? You will be contacted within 72 hours with your results. Primary Care Provider Lane GAMBOA, Jarrod Oneil Advance Directive Health Care Proxy on File Yes - Health Care Proxy Discharge Vitals Temperature: 97.9 DegF Height: 155 cm Pulse Rate: 59 bpm Weight: 109 kg Respiratory Rate: 18 br/min Body Mass Index:??45.37 kg/m2??Critical Respiratory Rate: 18 br/min Body surface area: 2.17 Systolic Blood Pressure: 136 mm Hg ?? Diastolic Blood Pressure: 69 mm Hg ?? Oxygen Saturation: 100 % ?? Studies Pending All tests and labs ordered during this hospital stay have been completed unless listed below. Please discuss all pending results with your provider listed above in these instructions. ?? BUN CBC Creatinine Electrolytes C-Arm < 1 Hour What to do next Instructions From Your Doctor Discharge Orders Scheduled Follow-Up Appointments Saturday 10:45 AM EST ?? Where: [facility] [place] [address]- You Need to Schedule the Following Appointments Follow Up with??[facility] When??Within 1 to 2 weeks Where: Discharge Medications GABRIELLA STERLING :1990 Visit Date:07/23/2022 Medications: Please continue your medications until treatment is completed or stopped by your provider. Medications not listed below should be discontinued. Discuss any questions related to medications with your provider. What How Much When Instructions Next Dose New Acetaminophen (acetaminophen 325 mg oral tablet) 650 Milligram Oral Every 6 hours May take OTC not to exceed 3000 mg/ day ?? Jul.24. 4:30 pm New Al Hydroxide/ Mg Hydroxide/ Simethicone (Maalox Plus Liquid) 30 Milliliter Oral Every 4 hours as needed for Other Heartburn ?? as needed New Aspirin (Aspirin Tablet) 325 Milligram Oral Twice a day Take 325 mg twice a day for 30 days for the prevention of blood clots. Jul.24. 9:00 pm New Baclofen (baclofen 10 mg oral tablet) 1 tab(s) Oral 3 times a day Duration: 14 Days Pickup at [place] [address] Jul.24. 3:00 pm New Docusate (Colace Capsule) 100 Milligram Oral Twice a day Hold for loose stools ?? Jul.24. 9:00 pm New Milk of Magnesia (MOM Liquid) 30 Milliliter Oral Daily as needed for Constipation as needed New Oxycodone (oxyCODONE 5 mg oral tablet) 1 tab(s) Oral Every 4 hours as needed for Pain , Moderate Duration: 7 Days Pickup at [facility] 3 For moderate to severe pain. Do not take if taking Tramadol. Jul.24 12:30 pm New Polyethylene Glycol 3350 (MiraLax Powder) 17 gram Oral Daily as needed for Constipation as needed New Senna (senna 187 mg oral tablet) 1 tab(s) Oral Daily at Bedtime as needed for as needed for constipation as needed New Tramadol (traMADol 50 mg oral tablet) See instructions Take 1-2 tablets every 6 hours as needed for mild pain. ?? Pickup at [facility] 3 For mild to moderate pain. Do not take if taking oxycodone. see instructions Changed Labetalol (labetalol 100 mg oral tablet) 2 tab(s) Oral Twice a day Jul.24 9:00 pm Unchanged Celecoxib (CeleBREX 200 mg oral capsule) 1 capsule Oral Twice a day take while on menses do not mix with ibuprofen ?? Jul.24 9:00 pm Unchanged dexlansoprazole (Dexilant 60 mg oral delayed release capsule) 1 capsule Oral Daily Jul.25 am Unchanged Gabapentin 400 Milligram Oral 3 times a day Jul.24 3:00 pm Unchanged linaclotide (Linzess) 145 Microgram Oral Daily Jul.25 am Unchanged Sertraline (sertraline 100 mg oral tablet) 1 tab(s) Oral Daily in the morning Jul.25 am Pharmacy Information [facility]: [address], [place] [id number] [phone] Test Results Below is a partial list of the most recent Laboratory test results done prior to this discharge. You may have had other tests and procedures not included in this list. Please discuss all test resultswith your provider. (07/23/2022) ???Surgical Pathology - Patient Name: GABRIELLA STERLING Lab Patient : 1990 (Age: 31) Collection Date: 07/23/2022 Accession Date: 07/23/2022 Sign Out Date: 07/23/2022 Tissue Source: 1:RIGHT FEMORAL HEAD Final Diagnosis: Femoral head, right, replacement: - Femoral head with degenerative changes of articular cartilaginous surface and eburnation consistent with severe osteoarthritis (gross examination). Primary Pathologist:Navneet Ly MD electronically signed out by: Navneet Ly MD / Tata Clinical History: Osteoarthritis of right hip Gross Description: Labeled right femoral head . Received in formalin is a 5.5 x 5 x 3.6 cm femoral head with up to 0.6 cm of attachedfemoral neck. The margin of transection is smooth. The articular surface ranges from pink-red, granular to white-pink, glistening. Scant eburnation is present; pitting is not grossly identified. Osteophytes are present. Sectioning reveals red, trabecular cut surfaces. No sections are submitted. Gross exam only. (MANJINDER)* Phone #: [phone], On-Call Pathologist: [id number] Beta HCG Serum (Females Only) (07/23/2022) ? ?Blood - <1 mIU/mL BUN (07/24/2022) ???BUN - 8 mg/dL CBC (07/24/2022) ???WBC - 15.8 k/mm3???RBC - 3.60 m/mm3???Hgb - 9.5 Gm/dL???Hct - 30.1 %???MCV - 83.6 femtoliters???MCH - 26.4 pg???MCHC - 31.6 g/dL???Platelet Count - 259 k/mm3???RDW-SD - 45.8 femtoliters???MPV - 11.9 femtoliters???Nucleated RBC (Automated) - 0.0 #/100 WBC'S???Abs. NRBC - 0.0 k/mm3 Creatinine (07/24/2022) ???Creatinine-Blood - 0.5 mg/dL???Estimated GFR Creatinine - 128 ML/MIN/1.73 M2 Electrolytes (07/24/2022) ???Sodium - 140 mmol/L???Potassium - 4.2 mmol/L???Chloride - 105 mmol/L???Bicarbonate Level - 22 mmol/L???Anion Gap - 13 Allergies (NKA means No Known Allergies) Latex??(Skin rash) Provera??(Bleeding) amoxicillin??(Rash) topiramate??(Swelling of throat) Problems Active Problems??(21) Anemia?? Anxiety?? Arthritis?? Bipolar disorder?? Carpal tunnel syndrome during ?? Chronic hypertension?? Depression?? Fibromyalgia?? GERD (gastroesophageal reflux disease)?? Hemorrhage after delivery of fetus?? Hemorrhoid?? History of COVID-19?? Marijuana use?? Migraines?? Obesity?? Panic attacks?? PCOS (polycystic ovarian syndrome)?? Rubella equivocal [ ] MMR ?? Severe obesity?? Vulvar cyst?? Wound cellulitis after surgery?? Education Materials Below is the list of Educational Leaflet Providered with your Discharge Instructions. Total Hip Replacement Discharge Instructions?? Valuables and Belongings I fully understand and agree that [facility] accepts no responsibility for all my personal property including clothing, toilet articles, radios, jewelry, dentures, hearing aids, rings, money, or any other property that is in my possession or is brought to me after admission. I understand certain valuables may be placed in a hospital safe for a short period of time. I understand that the hospital is not liable for loss or damage due to accident, fire, or other natural occurrence while said property is in the safe. I accept full responsibility for any personal property that I keep with me, and will not hold the hospital responsible in case of loss or disappearance. I acknowledge that i have been encouraged to send valuables and belongings home. ?? No Valuables/Belongings: No valuables/belongings present Date for Pt to Sign Valuables/Belongings: 07/23/22 12:25:00 ?? Other Discharge Information ? Case Management Discharge Plan?? Discharge Plan?? Discharge Agency Information?? Discharge Level of Care at Discharge: Homehealth/VNA Service Categories #1: Occupational Therapy, Physical Therapy Discharge VNA/Hospice/Home Care: [facility] Comments #1: The VNA will call you the day after you are discharged to set up a visit time.If you do not hear from them, please call them at [facility] ?? Pulmonary Rehab Status?? Pulmonary Rehab Discharge Status?? Respiratory Rate: 18 br/min Respiratory Rate: 18 br/min ? Common Emergency Awareness Tips IS IT A STROKE? Act FAST and Check for these signs: FACE Does the face look uneven? ARM Does one arm drift down? SPEECH Does their speech sound strange? TIME Call at any sign of stroke ?? Heart Attack Signs Chest discomfort: Most heart attacks involve discomfort in the center of the chest and lasts more than a few minutes, or goes away and comes back. It can feel like uncomfortable pressure, squeezing, fullness or pain. Discomfort in upper body: Symptoms can include pain or discomfort in one or both arms, back, neck, jaw or stomach. Shortness of breath: With or without discomfort. Other signs: Breaking out in a cold sweat, nausea, or lightheaded. Remember, MINUTES DO MATTER. If you experience any of these heart attack warning signs, call to get immediate medical attention! ?? Smoking can increase your chances of developing chronic health problems and can cause harmful effects to other family members in your house. If you smoke, you are strongly encouraged to quit. Please call [facility] at [phone] or 2-105-298[employer] ([phone]) or log in to [email or web address] for referrals to smoking cessation programs. ?? The National Suicide Prevention Hotline is available 07/01 if you or someone you know needs to find a reason to keep living. By calling 1-112-350-[employer] (6604) you'll be connected to a skilled, trained counselor at a crisis center in your area. INPATIENT DISCHARGE INSTRUCTIONS SIGNATURE PAGE GABRIELLA STERLING Location:[facility] Registration Date and Time:07/23/2022 06:14 [facility] Primary Care Physician: Lane GAMBOA, Jarrod Thad, I GABRIELLA STERLING, have received the above patient education materials/instructions and have verbalized understanding. If ambulance or transport services are being used I further acknowledge being given a choice of service. ?? If you need to contact me, please call me at this number: . Patient/Cruise Counselor Name: Patient/Cruise Counselor Signature: Relationship to Patient: Witness Name/Signature: Date: * Jared MYERS, Alicia: PERFORM Event Display: Patient Education Leaflets Authored Date: [id number] Total Hip Replacement Discharge Instructions ?? 666 Total Hip Replacement Discharge Instructions ? Please read and review your Total Hip Replacement Book for detailed information ??? Your appetite may be decreased but try to maintain a good balanced diet Incision ?Your incision is closed with absorbable stitches and surgical glue. ?The dressing is waterproof. You may shower the next day. ??? Your dressing will stay on for 1-2 weeks ?You cannot go in a bath, pool, ocean, pond, urbano or jacuzzi for 6 weeks. This is to reduce your risk of infection ? You may have some numbness around the incision. This is normal and will improve with time. Some patients have numbness that does not completely go away. ??? You may have skin discoloration (yellowish or bruising) around your incision which may develop. ??? Ice and elevation ? Ice is important to help keep swelling down. ?Keep your leg elevated as much as possible. ?Ice your hip 4 times a day for 20 minutes each time. Be sure not to put the ice/ice pack directly on your skin. Use a dishtowel or something similar between your skin and the ice. ??? Nate Ramirez, and Radha???Kothari patients: The blue wedge is to be used between your knees when sleeping and sitting in a chair for the first few weeks. This keeps your hip in the proper position ? Moving ? Moving is especially important. This helps to prevent blood clots. Take short frequent walks. ? Exercises as per physical therapy ??? No driving until approved by your surgeon ??? Continue to move your foot up and down, these exercises help to prevent blood clots and help to decrease swelling in your hip. ?? When to call the Surgeon?CALL [phone] ? If you have shortness of breath or chestpain, call 911 or go to the nearest emergency department. ??? If you have drainage and/or redness around your wound. ??? If you have a fever greater than 101.5 (38.5 degrees Celsius). ??? If you havepersistent calf pain or swelling (This could be a blood clot). ??? If your pain is worsening. ? If you have any difficulty with urination or burning with urination. ?? * [facility] , CIS S: TRANSCRIBE Balta Bain MD: VERIFY Event Display: Result: Authored Date: [id number] C-Arm < 1 Hour INDICATION: Reason: RIGHT ANTERIOR HIP TOTAL REPLACEMENT; Special Instructions: F.T. 00:08.0 DAP 0.7571 COMPARISONS: None TECHNIQUE: Fluoroscopy support was provided. There was no radiologist in attendance. FLUOROSCOPY TIME: 8.0 seconds TECHNOLOGIST TIME: 45 minutes FINDINGS: Fluoroscopy support was provided. There was no radiologist in attendance. IMPRESSION: See above. WSN: [id number] Ordering Physician: Jayson Johnson Dictated By: Balta Bain MD Dictated Date/Time: 07/24/22 12:47 p Reviewed By: Balta Bain MD Signed By: Balta Bain MD Signed Date/Time: 07/24/22 12:47 pm Transcribed By: MARLA Transcribed Date/Time: 07/23/22 4:01 pm Hospital Progress note * Alicia Coleman RN: PERFORM, SIGN, VERIFY Event Display: Progress Note Hospital Authored Date: [id number] Patient: GABRIELLA STERLING Age: 31 years Sex: Female : 1990 Associated Diagnoses: None Author: Alicia Coleman RN Findings Problem Related to Alteration in Comfort : Alteration in Comfort/new 07/24/2022 10:00 EST Alteration in Comfort Related to Surgery, Other: right THR 07/23 Goals & Outcomes: Comfort Pt will report acceptable level of comfort & pain control, Pt will state importance of adhering to pain strategy regime, Pt will demonstrate necessary skills to manage pain, Non-verbal indicators will indicate comfort/pain control Interventions Implemented: Comfort Assess pain using appropriate pain scale/tools, Assess aggravating factors & prevent them accordingly, Assess alleviating factors & promote them accordingly Goals/Interventions, Comfort Yes Comfort, Problem Start 07/23/2022 21:00 Reviewed plan with, Comfort Patient Patient Progression, Comfort Resolved problem Comfort, Problem Ongoing No Comfort, Problem Resolved 07/24/2022 10:16 . Alteration in Musculoskeletal : Alteration in Musculoskeletal Func/new 07/24/2022 10:00 EST Alteration in Musculoskeletal Related to Orthopedic Procedure, Total joint replacement, Other: right THR 2/ POD#0 Goals & Outcomes, Musculoskeletal Affected extremity will maintain color/motion/sensation, Pt will report acceptable level of comfort/pain relief Interventions, Musculoskeletal Resolved problem, Interventions no longer in effect Goals/Interventions, Musculoskeletal Yes Musculoskeletal, Problem Start 07/23/2022 12:00 Reviewed Plan with, Musculoskeletal Patient Patient Progression, Musculoskeletal Resolved problem Musculoskeletal, Problem Resolved 07/24/2022 10:16 . Nursing Data Vital Signs : VITAL SIGNS SECTION 07/24/2022 8:14 EST Early Warning Score 2.00 07/24/2022 8:14 EST Early Warning Score 2.00 07/24/2022 8:14 EST Early Warning Score 2.00 07/24/2022 8:14 EST Early Warning Score 2.00 07/24/2022 8:12 EST Respiratory Rate 18 br/min Respiratory Rate 18 br/min 07/24/2022 8:11 EST Pulse Rate 59 bpm Respiratory Rate 18 br/min Systolic Blood Pressure 136 mm Hg Diastolic Blood Pressure 69 mm Hg 07/24/2022 8:10 EST Early Warning Score 2.00 07/24/2022 8:09 EST Temperature 97.9 DegF Temperature Route Oral Pulse Rate 59 bpm Respiratory Rate 18 br/min Systolic Blood Pressure 136 mm Hg Diastolic Blood Pressure 69 mm Hg Mean Arterial Pressure 91 mm Hg Pulse Pressure 67 mm Hg Oxygen Saturation 100 % Mode of Delivery (Oxygen) Room air . Evaluation Patient A & O x 4. VSS. POD # 1 R ant hip. Aquacel CDI. +DF, +PF, +CMS to R LE. Up with one assist with w/w and verbal cueing for correct walker/step sequencing. Pain 9/10. Scheduled and prn painmeds given with + effect. C- Boots and ASA for DVT prophylaxis. Denies CP, SOB, N/V. N/T. LS CTA. ABD SRNT, +BS. LBM 07/23/22. Voiding without issues. Safety checks completed. Bed in lowest locked position with call hernández within reach. Hourly rounding. Up to recliener chair during the day with call hernández within reach. Script for commode given per protocol. Sapphire Sawyer NP notified of patient c/ovaginal itchines, and discomfort. 1 time dose of Fluconazole, given as ordered. Consult with PT/OT c leared for discharge. Discharge orders received. Discharge paperwork prepared and verbal and written instructions given with verbal and written acknowledgement of understanding of instructions. Paperwork signed and placed in scanning bin. IV removed with tip intact. Patient left with all belongingsvia w/c with hospital personnel. . Discharge Information Rehabilitation Discharge : Rehab Discharge Index 07/24/2022 9:20 EST Comments on treatment indicated pt cleared from ot standpaint dc home once medically cleared Full chart review completed Yes Hospital course Hospital course * Loreto Powell RN: PERFORM, SIGN, VERIFY, SIGN, MODIFY Event Display: Progress Note Hospital Authored Date: [id number] Patient: GABRIELLA STERLING Age: 31 years Sex: Female : 1990 Associated Diagnoses: None Author: Loreto Powell RN Findings Problem Related to Alteration in Comfort : Alteration in Comfort/new 07/24/2022 0:00 EST Alteration in Comfort Related to Surgery, Other: right THR 07/23 Goals & Outcomes: Comfort Pt will report acceptable level of comfort & pain control, Pt will state importance of adhering to pain strategy regime, Pt will demonstrate necessary skills to manage pain, Non-verbal indicators will indicate comfort/pain control Interventions Implemented: Comfort Assess pain using appropriate pain scale/tools, Assess aggravating factors & prevent them accordingly, Assess alleviating factors & promote them accordingly. Alteration in Musculoskeletal : Alteration in Musculoskeletal Func/new 07/24/2022 0:00 EST Alteration in Musculoskeletal Related to Orthopedic Procedure, Total joint replacement, Other: right THR 2/ POD#0 Goals & Outcomes, Musculoskeletal Affected extremity will maintain color/motion/sensation, Pt will report acceptable level of comfort/pain relief Interventions, Musculoskeletal Monitor patients ambulation status, monitor Color/Motion/Sensation, Assist with repositioning, Encourage deep breathing & coughing exercises, Notify MD immediately if tissue perfusion deteriorates, Obtain assistive devices as needed, Teach & Encourage use of Incentive spirometer, Teach Pt/caregiver on exercises, Teach pt/caregiver on use of pain scale, TeachPt/caregiver complications of immobility, Teach Pt/caregiver techniques to increase mobility, TeachPt/caregiver on safety precautions, Incision care as ordered, Assist pt out of bed keeping legs abducted at all times, Avoid extreme internal and/or external rotation, Maintain hip in abduction/neutral/slight ext. rotation . Nursing Data Vital Signs : VITAL SIGNS SECTION 07/23/2022 23:00 EST Temperature 97.9 DegF Temperature Route Oral Pulse Rate 65 bpm Systolic Blood Pressure 157 mm Hg H Diastolic Blood Pressure 83 mm Hg Blood pressure sites Arm, left Oxygen Saturation 100 % Mode of Delivery (Oxygen) Room air 07/23/2022 20:23 EST Respiratory Rate 18 br/min Respiratory Rate 18 br/min 07/23/2022 19:53 EST Respiratory Rate 18 br/min 07/23/2022 19:23 EST Pulse Rate 66 bpm Respiratory Rate 18 br/min Respiratory Rate 18 br/min Systolic Blood Pressure 129 mm Hg Diastolic Blood Pressure 88 mm Hg H 07/23/2022 19:00 EST Temperature 97.9 DegF Temperature Route Oral Pulse Rate 66 bpm Respiratory Rate 18 br/min Systolic Blood Pressure 129 mm Hg Diastolic Blood Pressure 88 mm Hg H Blood pressure sites Arm, left Oxygen Saturation 100 % Mode of Delivery (Oxygen) Room air . Evaluation P: Alteration in Comfort Alteration in Musculoskeletal Function I: See Above Care Plans for Interventions E: Ms. Gabriella Sterling, 31 year old female, A&O x 3, 1 assist with walker for ambulation. Pt. POD #0 - Right THR. Pt. arrived on unit via bed at 18:45. Pt. has Aquacel dressing on right hip, CDI, surrounding skin warm, dry and intact. +CMS, +PP, +D/P flexion, compression boots on BLE, ice on righthip. Pt. voided x4 on bedpan and ambulated x1 to bathroom with walker; pt. used walker appropriately and was noted to have a right foot slightly turned inward while walking, baseline? Pt. has no N/V,on r/a with LSC, no SOB, no cough noted. LBM: 07/23/22, +BS, abdomen SNT round. Pt. endorsed 8/10 pain upon arrival, administered PRN 0.5mg dilaudid at 19:23 with slight effect and PRN 10mg oxycodone at 23:30 with +effect. Pt. HS medication compliant, received scheduled 650mg tylenol, pleasant and cooperative with all care. See CIS for further assessments, labs, vitals and I&Os. All safety measures in place: bed in lowest position, wheels locked, non-slips socks on bilateral feet and knee-block provided to pt. while sleeping; call hernández within reach. Frequent purposeful rounding done. Will continue to monitor plan of care.. * Andre MYERS, Loreto: PERFORM Event Display: Progress Note Hospital Authored Date: pt. reported pain at 4:30, administered 10mg Oxycodone and scheduled 650mg tylenol. Assisted pt. tobathroom to void, used walker appropriately. * Jyoti Peraza RN: SIGN, VERIFY, PERFORM Event Display: Progress Note Hospital Authored Date: Patient: GABRIELLA STERLING Age: 31 years Sex: Female : 1990 Associated Diagnoses: None Author: Jyoti Peraza RN Findings Problem Related to Alteration in Musculoskeletal : Alteration in Musculoskeletal Func/new 07/23/2022 11:00 EST Alteration in Musculoskeletal Related to Total joint replacement Goals & Outcomes, Musculoskeletal Affected extremity will maintain color/motion/sensation, Pt will report acceptable level of comfort/pain relief Interventions, Musculoskeletal monitor Color/Motion/Sensation, Teach pt/caregiver on use of pain scale Goals/Interventions, Musculoskeletal Yes Musculoskeletal, Problem Start 07/23/2022 12:00 Reviewed Plan with, Musculoskeletal Patient Patient Progression, Musculoskeletal Plan Initiation . Narrative/Incidental P:Alteration in musculoskeletal I: Refer to care plan E: Pt admitted to floor this am, a&ox3, Lungs clear, NPO, LBM 07/23/22, transferred to preop at 1145. XR Pelvis 1 or 2 Views * BHSPowerscribe , CIS S: TRANSCRIBE Ravinder GAMBOA, Jeovanny Morrison: VERIFY Event Display: Result: Authored Date: PROCEDURE: Pelvis 1 or 2 Views CLINICAL INDICATION: 31 years old Female with Reason: Postop Prosthesis; Clinical Question(s): Status of Hip Prosthesis; Special Instructions: RIGHT Hip - Do today at 2200. TECHNIQUE: AP pelvis is obtained. COMPARISONS: Intraoperative images of the same day. FINDINGS: AP view of the pelvis excluding the iliac crests obtained. Total RIGHT hip replacement prosthesis without cement or screws noted in good alignment as can be seen on the frontal projection. Expected subcutaneous emphysema noted overlying the RIGHT hip. Mild degenerative changes at the LEFT hip joint. IMPRESSION: 1. Good alignment of the total RIGHT hip are present prosthesis in the frontal projection. Expectedpostoperative changes. Thank you for allowing me to participate in the care of this patient. WSN: [id number] Ordering Physician: Morro Diaz Dictated By: Jeovanny Castellon MD Dictated Date/Time: 07/24/22 0:12 am Reviewed By: Jeovanny Castellon MD Signed By: Jeovanny Castellon MD Signed Date/Time: 07/24/22 0:12 am Transcribed By: MARLA Transcribed Date/Time: 07/24/22 0:10 am * BHSPowerscrikaterin , CIS S: TRANSCRIBE Paxton Nava MD: VERIFY Event Display: Result: Authored Date: [id number] Pelvis 1 or 2 Views INDICATION: Reason: RT Hip OA COMPARISONS: None TECHNIQUE: Fluoroscopy support was provided. There was no radiologist in attendance. FLUOROSCOPY TIME: 08.0 seconds EXPOSURE: 0.7571 Gycm2 TECHNOLOGIST TIME: 45 minutes FINDINGS: 16 images were submitted showing right total hip arthroplasty. Please refer to operative note for full details. IMPRESSION: See above. WSN: [id number] Ordering Physician: Jayson Johnson Dictated By: Paxton Nava MD Dictated Date/Time: 07/23/22 5:29 pm Reviewed By: Paxton Nava MD Signed By: Paxton Nava MD Signed Date/Time: 07/23/22 5:29 pm Transcribed By: MARLA Transcribed Date/Time: 07/23/22 5:29 pm Patient Care team information Care Team Personnel Name: Jarrod Sherman MD Position: Reference Physician Member Role: PCP Address: Address: [address] [place] [address] Name: Katie Berger RN Position: S RN Member Role: Primary Care Nurse Name: Loreto Powell RN Position: S RN Member Role: Primary Care Nurse Name: Jyoti Peraza RN Position: S RN Member Role: Primary Care Nurse Care Team Related Persons Name: MANJINDER SAHU Address: [address] Address: home [address] [place] [address] [place] Name: SAHUJOSE Address: [address] Address: home [address] [place] [address] [place] Name: DENNISE MCCLAIN Address: [place] [address]
--- OUTSIDE RECORDS SUMMARY | 2023-11-14 12:04 | XMS_ITS | Continuity of Care Document ---
Author Organization [facility] [employer] Address [address] [place] [address], 4t [place] [address]- Care Team Providers Care Metal Refiner Name Role Phone Jarrod Sherman MD Primary Care Physician Encounter [facility] ACCT R [id number] Date(s): 05/29/23 - 06/28/23 [facility] [address] [facility], 4th [place] [address]- Allergies, Adverse Reactions, Alerts Substance Reaction Severity [...] Acute 06/30/23 15:08:00 EST, 06/25/23 15:08:00 EST, [facility]/pharmacy #[id number], Partial fill upon [...] 07/24/22 8:20:00 EST, Route to Pharmacy Electronically, [facility], Partial fill upon patient request [...] Reference Physician Member Role: PCP Address: Address: [address] [place] [address] Drive [address] [place] [address] - Name: Katie Berger RN Position: [facility] RN Member Role: Primary Care Nurse Name: Loreto Powell RN Position: S RN Member Role: Primary Care Nurse Name: Jyoti Peraza RN Position: S RN Member Role: Primary Care Nurse Care Team Related Persons Name: ASHUMANJINDER Address: [address] Address: home [address] [place], [place] Name: JOSE SAHU Address: [address] Address: home [address] [place], [place] Name: DENNISE MCCLAIN Address: [place] [address]
--- OUTSIDE RECORDS SUMMARY | 2023-11-14 12:04 | XMS_ITS | Continuity of Care Document ---
Author Organization [facility]ica [facility] Address [address] [facility], 4[address] [place] [address]- Care Team Providers Care Undercover Operator Name Role Phone Jarrod Sherman MD Primary Care Physician En[facility] Date(s): 02/27/23 - 03/29/23 [facility] [employer] [facility] [address], 4th [address] [place], [place] [address] Attending Physician: Denise Laws MD Referring Physician: [...] 07/24/22 8:20:00 EST, Route to Pharmacy Electronically, [facility], Partial fill upon patient request if the prescription is for a schedule I... Start Date: 07/24/22 Stop Date: 08/07/22 Status: Ordered CeleBREX 200 mg oral capsule 1 capsule = 200 mg, By Mouth, 2 times a day, take while on menses do not mix with ibuprofen, # 60 capsule, 2 Refills, Maintenance, 07/03/22 14:00:00 EST, Capsule, [facility]/pharmacy #[id number], Partial fill [...] Physician Member Role: PCP Address: Address: [address] [place] [address] Drive [address] [place] [address]- [place] Name: Katie Berger RN Position: S RN Member Role: Primary Care Nurse Name: Loreto Powell RN Position: S RN Member Role: Primary Care Nurse Name: Jyoti Peraza RN Position: S RN Member Role: Primary Care Nurse Care Team Related Persons Name: LISA SAHULOI Address: [address] Address: home [address] [place] [address] [place] Name: JOSE SAHU Address: [address] Address: home [address] [place] [address] [place] Name: DENNISE MCCLAIN Address: [place] [address]
--- OUTSIDE RECORDS SUMMARY | 2023-11-14 12:04 | XMS_ITS | Continuity of Care Document ---
Author Organization [facility] Address [address] [place] [address]- Care Team Providers Care Cooking Chef Name Role Phone Lane GAMBOA, Jarrod Oneil Primary Care Physician [place] [facility] [place] 09/16/23 - 10/30/23 [facility] [address] [place], [place] [address] Attending Physician: Brandon Murrell MD Referring Physician: Jayson Johnson MD Allergies, Adverse Reactions, Alerts Substance Reaction Severity Status amoxicillin Rash Active topiramate Swelling of throat Active Feraheme 1 Active Provera Bleeding Active Latex Skin rash [...] 07/24/22 8:20:00 EST, Route to Pharmacy Electronically, [facility], Partial fill upon patient [...] 11/01/23 9:47:00 EDT, 10/25/23 9:47:00 EDT, Tablet, [facility], Partial fill upon patient request if [...] Hemorrhoid Confirmed Active History of COVID-19 Confirmed 1/4/21 Active Chronic hypertension Confirmed Active Marijuana use [...] Reference Physician Member Role: PCP Address: Address: [address] [place] [address] Drive [address] [place], [place] - Name: Denise Hurt RN Position: [facility] RN Member Role: Primary Care Nurse Name: Katie Berger RN Position: [facility] SN RN Member Role: Primary Care Nurse Name: John Gtz RN Position: S RN Member Role: Primary Care Nurse Name: Loreto Powell RN Position: S RN Member Role: Primary Care Nurse Name: Jyoti Peraza RN Position: S RN Member Role: Primary Care Nurse Care Team Related Persons Name: LUIS ALBERTOMANJINDER Address: [address] Address: home [address] [place] [address] [place] Name: JOSE SAHU Address: [address] Address: home [address] [place], [place] Name: DENNISE MCCLAIN Address: [place] [address]
--- OUTSIDE RECORDS SUMMARY | 2023-11-14 12:04 | XMS_ITS | Continuity of Care Document ---
Author Organization [facility] [employer] Address [address] [place] [address], 4t [place] [address]- Care Team Providers Care Transportation Job Titles Name Role Phone Jarrod Sherman MD Primary Care Physician [phone] [id number] Date(s): 09/07/22 - 11/01/22 [facility]essica [employer] [facility] [address] [facility], 4th [place] [address]- Attending Physician: Not on Staff, Attending MD Referring Physician: Jarrod Sherman MD Allergies, [...] 07/24/22 8:20:00 EST, Route to Pharmacy Electronically, [facility], Partial fill upon patient request if the prescription is for a schedule I... Start Date: 07/24/22 Stop Date: 08/07/22 Status: Ordered CeleBREX 200 mg oral capsule 1 capsule = 200 mg, By Mouth, 2 times a day, take while on menses do not mix with ibuprofen, # 60 capsule, 2 Refills, Maintenance, 07/03/22 14:00:00 EST, Capsule, [facility]/pharmacy #[id number], Partial fill [...] opioid drug. Start Date: 07/24/22 Status: Ordered metroNIDAZOLE 500 mg oral tablet 1 tablet = 500 mg, By Mouth, Every 12 hours, for 7 days, # 14 tablet, 0 Refills, Acute 11/08/22 11:28:00 EDT, 11/01/22 11:28:00 EDT, Tablet, [facility]/pharmacy #[id number], Partial fill upon patient request if the prescription is for a schedule II opioid drug., 1... Start Date: 11/01/22 Stop Date: 11/08/22 Status: Ordered MiraLax Powder 1 pack/packet = [...] Reference Physician Member Role: PCP Address: Address: [address] [place] [address] Drive [address] [place] [address]- Name: Celine MYERS, Katie Position: S RN Member Role: Primary Care Nurse Name: Andre MYERS, Loreto Position: S RN Member Role: Primary Care Nurse Name: Jyoti Peraza RN Position: S RN Member Role: Primary Care Nurse Care Team Related Persons Name: MANJINDER SAHU Address: [address] Address: home [address] [place] [address] [place] Name: JOSE ASHU Address: [address] Address: home [address] [place] [address] [place] Name: DENNISE MCCLAIN Address: [place] [address]
--- OUTSIDE RECORDS SUMMARY | 2023-11-14 12:04 | XMS_ITS | Continuity of Care Document ---
Author Organization [facility] [employer]ica [employer] Address [address] [facility], 4[address] [place] [address]- Care Team Providers Care Polisher Brass Name Role Phone Jarrod Sherman MD Primary Care Physician Encounter [facility] Date(s): 11/02/22 - 12/02/22 [facility] [address], [address] [place], [place] [address] Allergies, Adverse Reactions, Alerts [...] 07/24/22 8:20:00 EST, Route to Pharmacy Electronically, [facility], Partial fill upon patient request if the prescription is for a schedule I... Start Date: 07/24/22 Stop Date: 08/07/22 Status: Ordered CeleBREX 200 mg oral capsule 1 capsule = 200 mg, By Mouth, 2 times a day, take while on menses do not mix with ibuprofen, # 60 capsule, 2 Refills, Maintenance, 07/03/22 14:00:00 EST, Capsule, [facility]/pharmacy #[id number], Partial fill upon [...] Reference Physician Member Role: PCP Address: Address: [address] [place] [address] Drive [address] [place] [address]- Name: Celine MYERSKatie Position: S RN Member Role: Primary Care Nurse Name: Loreto Powell RN Position: S RN Member Role: Primary Care Nurse Name: Jyoti Peraza RN Position: S RN Member Role: Primary Care Nurse Care Team Related Persons Name: MANJINDER SAHU Address: [address] Address: home [address] [place] [address] [place] Name: JOSE SAHU Address: [address] Address: home [address] [place] [address] [place] Name: DENNISE MCCLAIN Address: [place] [address]
--- OUTSIDE RECORDS SUMMARY | 2023-11-14 12:04 | XMS_ITS | Continuity of Care Document ---
Author Organization [facility] [employer] Address [address] [place] [address], 4t [place] [address]- Care Team Providers Care Automation Developer Name Role Phone Lane GAMBOA, Jarrod Oneil Primary Care Physician [facility] [id number] Date(s): 05/29/23 - 06/05/23 [facility]essicaabis[facility] LeonNOT[facility] [address] [facility], 4th [place] [address]- Attending Physician: Denise Laws MD Allergies, Adverse Reactions, Alerts Substance Reaction Severity Status amoxicillin Rash Active Provera Bleeding Active Latex Skin rash Active topiramate Swelling of throat Active Immunizations Given and Recorded Vaccine Date [...] 2 Refills, Maintenance, 07/03/22 14:00:00 EST, Capsule, [facility]/pharmacy #[id number], Partial fill upon [...] 0 Refills, Soft Stop, 06/04/23 10:09:00 EST, Tablet,[id number], Partial fill upon patient request if the prescription is for a schedule II opioid drug., 155, cm, 05/13/23 14:07:00 EST, Height, 99... Start Date: 06/04/23 Status: Ordered ferrous sulfate 325 mg oral enteric coated tablet See Instructions, Take one tablet By Mouth twice a week . Take with vitamin C to help absorption, #45 tablet, Refills 2, Tot. Refills 2, Maintenance, 05/24/23 14:16:00 EST, Instructions Replace Required Details, Route to [facility]... Start Date: 05/24/23 Status: Ordered Gabapentin = 400 mg, By [...] Status: Ordered norethindrone 5 mg oral tablet See Instructions, 1 tablet in the morning and 2 tablet By Mouth 12 hours later , in the evening., #60 tablet, Refills 1, Tot. Refills 1, Maintenance, 06/04/23 11:09:00 EST, Instructions Replace Required Details, Route to Pharm[facility], [facility]... Start Date: 06/04/23 Status: Ordered norethindrone 5 mg oral tablet 10 mg, 2, tablet, By Mouth, Daily, # 60 tablet, Refills 1, Tot. Refills 1, Maintenance, 05/24/23 14:14:00 EST, Route to Pharmacy Electronically, [facility]/pharmacy #[id number], Partial fill upon patient request if the prescription is for a schedule II opioid drug... Start Date: 05/24/23 Status: Ordered norethindrone 5 mg oral tablet 5 mg, 1, tablet, By Mouth, Daily, # 30 tablet, Refills 0, Tot. Refills 0, Maintenance, 05/14/23 18:08:00 EST, Route to Pharmacy Electronically, [facility]/pharmacy #[id number], Partial fill upon patient request if the [...] Reference Physician Member Role: PCP Address: Address: [address] [place] [address] [address] [place] [address]- Name: Katie Berger RN Position: [facility] RN Member Role: Primary Care Nurse Name: Loreto Powell RN Position: [facility] RN Member Role: Primary Care Nurse Name: Jyoti Peraza RN Position: [facility] RN Member Role: Primary Care Nurse Care Team Related Persons Name: MANJINDER SAHU Address: [address] Address: home [address] [place] [address] [place] Name: JOSE SAHU Address: [address] Address: home [address] [place] [address] [place] Name: DENNISE MCCLAIN Address: [place] [address]
--- OUTSIDE RECORDS SUMMARY | 2023-11-14 12:04 | XMS_ITS | Continuity of Care Document ---
Author Organization [facility] ter Address [address] [place] [address]- Care Team Providers Care Seed Service Advisor Name Role Phone Jarrod Sherman MD Primary Care Physician [phone] [place] [facility] [place] 04/30/22 - 06/15/[address] [address] Attending Physician: Denise Laws MD [...] opioid drug. Start Date: 04/24/21 Status: Ordered ibuprofen 600 mg oral tablet 600 mg, 1, tablet, By Mouth, Every 8 hours, # 50 tablet, Refills 0, Tot. Refills 0, Maintenance, 03/06/21 15:09:00 EDT, Route to Pharmacy Electronically, [facility]/pharmacy #[id number], Partial fill upon patientrequest if the prescription is for a schedule II op... Start Date: 03/06/21 Status: Ordered labetalol 200 mg oral tablet 1 tablet, By Mouth, 2 times a day, # 60 tablet, 0 Refills, [id number], 154.9, cm, 12/18/20 12:26:00 EDT, Height, 106.7, kg, 12/15/20 14:39:00 EDT, Dry Weight Start Date: 02/06/21 Status: Ordered sertraline 100 mg oral tablet [...] Active GERD (gastroesophageal reflux disease) Confirmed Active Diabetes, gestational Confirmed Active Hemorrhoid Confirmed Active Hx of preeclampsia, prior , currently Confirmed Active History of COVID-19 Confirmed 06/20/20 Active Chronic hypertension Confirmed Active Marijuana use 2 Confirmed Active Migraines Confirmed Active Obesity Confirmed Active Panic attacks Confirmed Active PCOS (polycystic ovarian syndrome) Confirmed Active Wound cellulitis after surgery Confirmed Active Rubella equivocal [ ] MMR Confirmed Active 1on Sertraline now, helping and has therapist and psychatrist 2Smoke in the morning for nausea and anxiety Social History Social History Type Response Smoking Status Former smoker, quit more than 30 days ago entered on: 08/04/20 Sex Patient Care team information Care Team Personnel Name: Lane GAMBOA, Jarrod Oneil Position: Reference Physician Member Role: PCP Address: Address: [address] [place] [address] Drive [address] [place] [address]- Care Team Related Persons Name: MANJINDER SAHU Address: Address: home [address] [place], [place] Name: JOSE SAHU Address: [address] Address: home [address] [place], [place] Name: DENNISE MCCLAIN Address: [place] [address]
--- OUTSIDE RECORDS SUMMARY | 2023-11-14 12:04 | XMS_ITS | Continuity of Care Document ---
Author Organization [facility] ter Address [address] [place] [address]- Care Team Providers Care Explosive Ordnance Manager Name Role Phone Jarrod Sherman MD Primary Care Physician Encounter [facility] Date(s): 06/29/22 - 07/29/[address] [address]- Attending Physician: AdmtrKalen Admitting Physician: Admtr, Ar8 Referring Physician: Admtr, Ar8 Allergies, Adverse Reactions, [...] 07/24/22 8:20:00 EST, Route to Pharmacy Electronically, [facility], Partial fill upon patient request if the prescription is for a schedule I... Start Date: 07/24/22 Stop Date: 08/07/22 Status: Ordered CeleBREX 200 mg oral capsule 1 capsule = 200 mg, By Mouth, 2 times a day, take while on menses do not mix with ibuprofen, # 60 capsule, 2 Refills, Maintenance, 07/03/22 14:00:00 EST, Capsule, [facility]/pharmacy #[id number], Partial [...] Moderate, 07/24/22 8:32:00 EST, Route to Pharmacy Electronically,[facility], Partial fill upon patient... Start Date: 07/24/22 Stop Date: 07/31/22 Status: Ordered senna 187 mg oral tablet [...] 08/01/22 8:00:00 EST, 07/24/22 8:18:00 EST, Tablet, [facility],Partial fill upon patient request if the [...] Reference Physician Member Role: PCP Address: Address: [address] [place] [address] Drive [address] [place] [address] - Name: Katie Berger RN Position: S RN Member Role: Primary Care Nurse Name: Loreto Powell RN Position: S RN Member Role: Primary Care Nurse Name: Jyoti Peraza RN Position: S RN Member Role: Primary Care Nurse Care Team Related Persons Name: SAHUMANJINDER Address: Address: home [address] [place], [place] Name: JOSE SAHU Address: Address: home [address] [place], [place] Name: DENNISE MCCLAIN Address: [place] [address]
--- OUTSIDE RECORDS SUMMARY | 2023-11-14 12:04 | XMS_ITS | Continuity of Care Document ---
Author Organization [facility]essica [facility]ant [facility] Address [address] [facility], 4t [place] [address]- Care Team Providers Care Brine Room Laborer Name Role Phone Jarrod Sherman MD Primary Care Physician Encounter [facility] Date(s): 09/07/22 - 10/07/22 [facility] [address] [facility], 4th Floor [place], [place] [address] Allergies, Adverse Reactions, Alerts Substance [...] 07/24/22 8:20:00 EST, Route to Pharmacy Electronically, [facility], Partial fill upon patient request if the prescription is for a schedule I... Start Date: 07/24/22 Stop Date: 08/07/22 Status: Ordered CeleBREX 200 mg oral capsule 1 capsule = 200 mg, By Mouth, 2 times a day, take while on menses do not mix with ibuprofen, # 60 capsule, 2 Refills, Maintenance, 07/03/22 14:00:00 EST, Capsule, [facility]/pharmacy #[id number], Partial fill upon patient request [...] Reference Physician Member Role: PCP Address: Address: [address] [place] [address] Drive [address] [place] [address]- Name: Katie Berger RN Position: [facility] RN Member Role: Primary Care Nurse Name: Loreto Powell RN Position: S RN Member Role: Primary Care Nurse Name: Jyoti Peraza RN Position: [facility] RN Member Role: Primary Care Nurse Care Team Related Persons Name: MANJINDER SAHU Address: [address] Address: home [address] [place] [address] [place] Name: JOSE SAHU Address: [address] Address: home [address] [place] [address] [place] Name: DENNISE MCCLAIN Address: [place] [address]
--- OUTSIDE RECORDS SUMMARY | 2023-11-14 12:04 | XMS_ITS | Continuity of Care Document ---
Author Organization [facility] ter Address [address] [place] [address]- Care Team Providers Care Costumer Assistant Name Role Phone Jarrod Sherman MD Primary Care Physician [phone] Encounter [facility] Date(s): 06/25/23 - 06/25/[address] [address] Discharge Disposition: A-D/C Home Attending Physician: Natividad Jiang DO Admitting Physician: Natividad Jiang DO Referring Physician: Natividad Jiang DO Allergies, Adverse Reactions, Alerts Substance Reaction Severity [...] Acute 06/30/23 15:08:00 EST, 06/25/23 15:08:00 EST, [facility]/pharmacy #[id number], Partial fill upon patient request if the [...] 07/24/22 8:20:00 EST, Route to Pharmacy Electronically, [facility], Partial fill upon patient [...] opioid drug. Start Date: 07/03/22 Status: Ordered Oxycodone 5mg Oral Tablet (PACU ONLY) 5 mg, Tablet, By Mouth, Once, in PACU ONLY, PRN for Pain , Moderate, Routine, 06/25/23 15:17:00 EST Start Date: 06/25/23 Stop Date: 06/25/23 Status: Completed sertraline 100 mg oral tablet 1 tablet [...] Range]: 1 2 3 Height 155 cm (06/25/23 1:47 PM) 155 cm (06/19/23 2:39 PM) Weight 96.1 kg (06/25/23 1:47 PM) 95.8 kg (06/19/23 2:39 PM) Oxygen Saturation [94-100 %] 100 % (06/25/23 3:45 PM) 99 % (06/25/23 3:30 PM) 100 % (06/25/23 3:15 PM) Pulse Rate [55-90 bpm] 72 bpm (06/25/23 1:47 PM) Body Mass Index [18.5-24.99 kg/m2] 40 kg/m2 *>HHI* (06/25/23 1:47 PM) 39.88 kg/m2 *>HHI* (06/19/23 2:39 PM) Blood Pressure [90-138/55-84 mm Hg] 150/100mm Hg *H* (06/25/23 3:45 PM) 159/102mm Hg *H* (06/25/23 3:30 PM) 170/100mm Hg *H* (06/25/23 3:15 PM) Respiratory Rate [16-30 br/min] 18 br/min (06/25/23 3:58 PM) 16 br/min (06/25/23 3:30 PM) 20 br/min (06/25/23 3:15 PM) Temperature [96.8-100.4 DegF] 99.0 DegF (06/25/23 3:00 PM) 97 DegF (06/25/23 1:47 PM) Mode of Delivery (Oxygen) Room air (06/25/23 4:30 PM) Room air (06/25/23 3:45 PM) Room air (06/25/23 3:30 PM) Blood pressure sites Arm, right (06/25/23 3:30 PM) Arm, right (06/25/23 3:15 PM) Arm, right (06/25/23 3:00 PM) Temperature Route Temporal (06/25/23 3:00 PM) Temporal (06/25/23 1:47 PM) Dry Weight 96.1 kg (06/25/23 1:47 PM) 95.8 kg (06/19/23 2:39 PM) Weight Obtained Via Standing scale (06/25/23 1:47 PM) Patient/family stated (06/19/23 2:39 PM) Dry Weight Obtained Via Standing scale (06/25/23 1:47 PM) Patient/family stated (06/19/23 2:39 PM) Social History Social History Type Response Smoking Status Former smoker, quit more than 30 days ago entered on: 08/04/20 Sex Note * Sylwia Burks RN: PERFORM Event Display: Discharge/Transfer Note Hospital Authored Date: [id number] Nursing Discharge Note Entered On: 06/25/2023 16:34 EST Performed On: 06/25/2023 16:34 EST by Sylwia Burks RN Nursing Discharge Note 2 Discharge Time : 06/25/2023 16:30 EST Discharge Level of Care at Discharge : Home/Snf/Foster Care Patient Left Unit Via : Wheelchair Patient Accompanied Off Unit with : Responsible adult DC Instructions Provided & Signed by Pt : Yes Patient Understands D/C Instructions : Yes Verbalized Understanding of D/C Plan By : Patient Patient Instructions Discharge Signed : Yes Did Pt have Specialty Bed or Wound Vac : No Sylwia Burks RN - 06/25/2023 16:34 EST * Sylwia Burks RN: PERFORM Event Display: Patient Education/Instruction Authored Date: [id number] Inpatient Adult Discharge Instructions [address] [address] Name: LANIE ESPANA : 1990 Visit: 06/25/2023 13:18:00 Current Date: 06/25/2023 15:44 Account: [id number] Inpatient Adult Discharge Instructions We would like [...] and their families. Surveys are administered by [employer] ?? If further treatment with your primary care physician or another doctor is recommended, it is important for you to keep the appointment. Call your primary care physician or return to the Emergency Department immediately if your condition worsens, fails to improve, or new symptoms develop. If you need to find a doctor, you can call [facility] StraighterLine Link for a referral at [phone] or toll free at [phone] ([phone]) or log in to [email or web address].. ?? [facility], in keeping with [facility] guidance, no longer requires face masks for staff, patientsor visitors in most situations. Similiar to time spent indoors at other locations, there is the chance that you were exposed to repiratory viruses during your time with us (such as flu or COVID-19). If you develop symptoms concerning for a viral respiratory infection, please seek testing (and treatment if indicated) from your medical provider or home test kit. ?? You can view and manage your care through the patient portal or by using a health care patel of your choosing. [employer] is a website that allows you to securely view your medical information including your hospital discharge summary, office visit summaries, medications and follow-up visits. You can also request appointments, renew medications, and request access to your medical information using a health care patel of your choosing, or just ask a question. You can enroll at [email or web address] or register during your next office visit. You have been discharged from [facility], Patient Care Unit: [facility]. If you have any questions regarding these instructions after you leave, please call us and we will be happy to assist you. [facility] Your Care Team Attending Physician Natividad Jiang DO Discharging Providers Natividad Jiang DO Reason for Admission ASCUS HPV + CS DS Tests Performed Below is a partial list of the tests performed during your hospitalization. You may have had other tests and procedures not included in this list. Please discuss all test results with your provider. Primary Care Provider Lane GAMBOA, Jarrod Oneil Advance Directive Health Care Proxy on File Yes - Health Care Proxy Discharge Vitals Temperature: 99 DegF Height: 155 cm Pulse Rate: 72 bpm Weight: 96.1 kg Respiratory Rate: 16 br/min Body Mass Index:??40 kg/m2??Critical Systolic Blood Pressure:??159 mm Hg??High Body surface area: 2.03 Diastolic Blood Pressure:??102 mm Hg??High ?? Oxygen Saturation: 99 % ?? Studies Pending All tests and labs ordered during this hospital stay have been completed unless listed below. Please discuss all pending results with your provider listed above in these instructions. ?? No incomplete studies found What to do next Instructions From Your Doctor Discharge Orders Instructions from your Care Team Please see attached MD discharge instructions. Follow up in 1-2 weeks. Tylenol and Ibuprofen for pain management. Ibuprofen last given at 3pm. Next dose available at 9:00pm. You Need to Schedule the Following Appointments Follow Up with??Natividad Jiang Where: [address] [facility] [place] [address]- [facility] (1) Follow Up with??Jarrod Sherman MD When:??In 0 days Where: [address] [place] [address]- [facility] (1) Discharge Medications LANIE ESPANA :1990 Visit Date:06/25/2023 Medications: Please continue your medications until treatment is completed or stopped by your provider. Medications not listed below should be discontinued. Discuss any questions related to medications with your provider. What How Much When Instructions Next Dose Changed Acetaminophen (acetaminophen 325 mg oral tablet) 650 Milligram Oral Every 6 hours May take OTC not to exceed 3000 mg/ day ?? Changed Acetaminophen (acetaminophen 500 mg oral tablet) 2 tab(s) Oral Every 6 hours Duration: 5 Days May take with ibuprofen 800mg TID for post op pain ?? Pickup at [facility]/pharmacy #[id number] Unchanged Albuterol (albuterol 0.083% inhalation solution) Unchanged Baclofen (baclofen 10 mg oral tablet) 1 tab(s) Oral 3 times a day Duration: 14 Days Unchanged dexlansoprazole (Dexilant 60 mg oral delayed release capsule) 1 capsule Oral Daily Unchanged Fluticasone-Salmeterol (Advair HFA 115 mcg / 21 mcg) Unchanged Gabapentin 400 Milligram Oral 3 times a day Unchanged Ibuprofen 800 Milligram Oral Daily as needed for Pain , Moderate Unchanged Labetalol (labetalol 100 mg oral tablet) 2 tab(s) Oral Twice a day Unchanged linaclotide (Linzess) 145 Microgram Oral Daily Unchanged Sertraline (sertraline 100 mg oral tablet) 1 tab(s) Oral Daily in the morning Pharmacy Information [facility]/pharmacy #[id number]: [address] [place], [place] [id number] [phone] Test Results Below is a partial list of the most recent Laboratory test results done prior to this discharge. You may have had other tests and procedures not included in this list. Please discuss all test resultswith your provider. Allergies (NKA means No Known Allergies) Latex??(Skin rash) Provera??(Bleeding) amoxicillin??(Rash) topiramate??(Swelling of throat) Problems Active Problems??(21) Anemia?? Anxiety?? Arthritis?? Bipolar disorder?? Carpal tunnel syndrome during ?? Chronic hypertension?? Depression?? Fibromyalgia?? GERD (gastroesophageal reflux disease)?? Hemorrhage after delivery of fetus?? Hemorrhoid?? History of COVID-19?? Marijuana use?? Migraines?? Obesity?? Panic attacks?? PCOS (polycystic ovarian syndrome)?? Rubella equivocal [ ] MMR ?? Severe obesity (BMI 35.0-39.9) with comorbidity?? Vulvar cyst?? Wound cellulitis after surgery?? Education Materials Below is the list of Educational Leaflet Providered with your Discharge Instructions. Surgery Medical Daystay Surgical Overnight Discharge Instructions?NSAID Analgesic Schedule?? Valuables and Belongings I fully understand and agree that [facility] accepts no responsibility for all my [...] to send valuables and belongings home. ?? Review of Valuable and Belonging List: With patient Date for Pt to Sign Valuables/Belongings: 06/25/23 13:47:00 ?? Valuables & Belongings ?? Clothes Electronic devices Jewelry Monetary Items Personal devices Miscellaneous Medications (Valuables) Valuables at Bedside Jacket, Pants, Shirt, Shoes, Undergarments Cell phone Rings ? Other: car guidry ?? Valuables Sent Home ? Valuables Sent to Security ? Other Discharge Information ? Pulmonary Rehab Status?? Pulmonary Rehab Discharge Status?? Respiratory Rate: 16 br/min ? Common Emergency Awareness Tips IS IT A STROKE? Act FAST and Check for these signs: FACE Does the face look uneven? ARM Does one arm drift down? SPEECH Does their speech sound strange? TIME Call 9-1-1 at any sign of stroke ?? Heart [...] are strongly encouraged to quit. Please call [facility] StraighterLine Link at [phone] or [phone] ([phone]) or log in to [email or web address] for referrals to smoking cessation programs. ?? 923 Suicide & Crisis Lifeline is available 07/01 if you or someone you know needs to find a reason to keep living. By calling 495 you'll be connected to a skilled, trained counselor at a crisis center in your area. INPATIENT DISCHARGE INSTRUCTIONS SIGNATURE LANIE DUENAS Location:[facility] Registration Date and Time:06/25/2023 13:18 EST Primary Care Physician: Jarrod Sherman MD, Attending Physician: Natividad Jiang DO, I LANIE ESPANA, have received the above patient education materials/instructions and have verbalized understanding. If ambulance or transport services are being used I further acknowledge being given a choice of service. ?? If you need to contact me, please call me at this number: . Patient/Inspector Hairspring Name: Patient/Inspector Hairspring Signature: Relationship to Patient: Witness Name/Signature: Date: * Sylwia Burks RN: PERFORM, SIGN, VERIFY Event Display: Patient Education Handout Authored Date: [id number] * Sylwia Burks RN: PERFORM Event Display: Patient Education Leaflets Authored Date: [id number] Surgery Medical Daystay Surgical Overnight Discharge Instructions ?? 295 Medical Daystay/Surgical Overnight Discharge Instructions ? Since your coordination and judgment may be altered by medication and/or anesthesia, a responsible adult must drive you home from the hospital. ? If you have received medication for pain or sedation while under our care, you should not drive, operate machinery, drink alcohol, or sign any legal documents for 24 hours.?? You should have someone with you at home tonight. ? Remain at home the day of discharge.?? You may be up and about unless otherwise instructed by your physician. ? You may resume your daily prescription medication schedule.?? Any depressant medication should be avoided for 24 hours unless otherwise instructed by your surgeon or anesthesiologist. ? Call your physician for a follow-up appointment.? If you experience unusual or severe pain not relied by your pain medication, excessive bleedingor drainage, persistent nausea and vomiting, excessive swelling or redness, foul odor from incisionsite or fever over 100.6F, you need to call your physician. ? A follow-up phone call by a nurse will be made the day after your procedure.?? If you have stayed with us over night, you will not be receiving a follow-up phone call. ? Nausea and vomiting are a common side effect of prescription pain medication.?? We recommend that pills are not taken on an empty stomach.?? While taking any prescription pain medication you should not drive or drink alcohol. ? * Sylwia Burks RN: PERFORM Event Display: Patient Education Leaflets Authored Date: [id number] NSAID Analgesic Schedule ?? 604 NSAID???s Analgesic Schedule ?? Pain is the primary source of illness following your procedure and can include dehydration, difficulty and painful swallowing, and weight loss. These symptoms can lead to increased post-operative visits and hospital readmission. The best way to control pain is to take pain medications regularly. Your doctor has recommended both Ibuprofen and Acetaminophen (generic/store brands are okay, too). These can be picked up over the counter at your pharmacy of choice. Follow the instructions on the bottle to determine the proper dosage to give. The simplest way to take these medications it to rotate the two at 3-hour intervals. Here is a sample diagram. The time you take your medications may vary from this example. Do not give Ibuprofen more than every 6 hours or Acetaminophen every 4 hours. Do not give Acetaminophen if your doctor has given you a prescription that contains Acetaminophen. ? Patient Care team information Care Team Personnel Name: Lane GAMBOA, Jarrod Oneil Position: Reference Physician Member Role: PCP Address: Address: [address] [place] [address] [place] [address] - Name: Katie Berger RN Position: [facility] RN Member Role: Primary Care Nurse Name: Loreto [place] RN Position: S RN Member Role: Primary Care Nurse Name: Jyoti Peraza RN Position: S RN Member Role: Primary Care Nurse Care Team Related Persons Name: SAHUMANJINDER Address: [address] Address: home [address] [place], [place] Name: JOSE SAHU Address: [address] Address: home [address] [place], [place] Name: DENNISE MCCLAIN Address: [place] [address]
--- OUTSIDE RECORDS SUMMARY | 2023-11-14 12:05 | XMS_ITS | Continuity of Care Document ---
Author Organization [facility] [employer] Address [address] [facility], 4t [place] [address]- Care Team Providers Care Front Desk Auxiliary Name Role Phone Jarrod Sherman MD Primary Care Physician En[place] [facility] Date(s): 06/24/23 - [facility]24/23 [facility] [address], 4th [place] [address]- Allergies, Adverse Reactions, Alerts Substance Reaction Severity [...] 07/24/22 8:20:00 EST, Route to Pharmacy Electronically, [facility], Partial fill upon patient [...] Physician Member Role: PCP Address: Address: [address] [place] [address] Drive [address] [place] [address] - Name: Katie Berger RN Position: [facility] RN Member Role: Primary Care Nurse Name: Loreto [place] RN Position: S RN Member Role: Primary Care Nurse Name: Jyoti Peraza RN Position: S RN Member Role: Primary Care Nurse Care Team Related Persons Name: LUIS ALBERTO MANJINDER Address: Address: home [address] [place], [place] Name: SAHUJOSE Address: Address: home [address] [place], [place] Name: DENNISE MCCLAIN Address: [place] [address]
--- OUTSIDE RECORDS SUMMARY | 2023-11-14 12:05 | XMS_ITS | Continuity of Care Document ---
Author Organization [facility] [employer] Address [address] [place] [address], 4t [place] [address]- Care Team Providers Care Kapok Machine Operator Name Role Phone Jarrod Sherman MD Primary Care Physician [id number] Date(s): 05/15/23 - 06/14/23 [facility] [address] [facility], 4th [place] [address]- Allergies, Adverse Reactions, Alerts Substance Reaction Severity [...] 07/24/22 8:20:00 EST, Route to Pharmacy Electronically, [facility], Partial fill upon [...] 0 Refills, Soft Stop, 06/04/23 10:09:00 EST, Tablet,[facility]acy #[id number], Partial fill upon [...] 05/14/23 18:08:00 EST, Route to Pharmacy Electronically, [facility]/pharmacy #[id number], Partial fill upon patient request if the [...] Reference Physician Member Role: PCP Address: Address: [address] [place] [address] Drive [address] [place] [address] - Name: Katie Berger RN Position: [facility] SN RN Member Role: Primary Care Nurse Name: Loreto [place] RN Position: S RN Member Role: Primary Care Nurse Name: Jyoti Peraza RN Position: S RN Member Role: Primary Care Nurse Care Team Related Persons Name: MANJINDER SAHU Address: [address] Address: home [address] [place], [place] Name: JOSE SAHU Address: [address] Address: home [address] [place], [place] Name: DENNISE MCCLAIN Address: [place] [address]
--- OUTSIDE RECORDS SUMMARY | 2023-11-14 12:05 | XMS_ITS | Continuity of Care Document ---
Author Organization [facility] [employer] Address [address] [facility], [address] [address]- Care Team Providers Care Head Of Drama Name Role Phone Jarrod Sherman MD Primary Care Physician Encounter [facility] Date(s): 10/31/22 - [facility]/30/[facility] [address], 4th [address] [place], [place] [address] Allergies, Adverse Reactions, Alerts [...] 07/24/22 8:20:00 EST, Route to Pharmacy Electronically, [facility], Partial fill upon patient request if the prescription is for a schedule I... Start Date: 07/24/22 Stop Date: 08/07/22 Status: Ordered CeleBREX 200 mg oral capsule 1 capsule = 200 mg, By Mouth, 2 times a day, take while on menses do not mix with ibuprofen, # 60 capsule, 2 Refills, Maintenance, 07/03/22 14:00:00 EST, Capsule, [facility]/pharmacy #[id number], Partial fill upon patient request if [...] Physician Member Role: PCP Address: Address: [address] [place] [address] Drive [address] [place] [address]- Name: Celine MYERSKatie Position: S RN Member Role: Primary Care Nurse Name: Loreto [place] RN Position: S RN Member Role: Primary Care Nurse Name: Jyoti Peraza RN Position: S RN Member Role: Primary Care Nurse Care Team Related Persons Name: MANJINDER SAHU Address: [address] Address: home [address] [place] [address] [place] Name: JOSE SAHU Address: [address] Address: home [address] [place] [address] [place] Name: DENNISE MCCLAIN Address: [place] [address]
--- OUTSIDE RECORDS SUMMARY | 2023-11-14 12:05 | XMS_ITS | Continuity of Care Document ---
Author Organization [facility] [employer] Address [address] [place] [address], 4t [place] [address]- Care Team Providers Care Boarding Mother Name Role Phone Jarrod Sherman MD Primary Care Physician Encounter [facility] Date(s): 05/03/23 - 06/02/23 [facility] [address] [facility], 4th [place] [address]- Allergies, Adverse Reactions, Alerts Substance Reaction Severity [...] 07/24/22 8:20:00 EST, Route to Pharmacy Electronically, [facility], Partial fill upon patient request if the prescription is for a schedule I... Start Date: 07/24/22 Stop Date: 08/07/22 Status: Ordered CeleBREX 200 mg oral capsule 1 capsule = 200 mg, By Mouth, 2 times a day, take while on menses do not mix with ibuprofen, # 60 capsule, 2 Refills, Maintenance, 07/03/22 14:00:00 EST, Capsule, [id number], Partial fill upon [...] opioid drug. Start Date: 07/23/22 Status: Ordered ferrous sulfate 325 mg oral [...] 05/24/23 14:14:00 EST, Route to Pharmacy Electronically, [facility]acy #[id number], Partial fill upon patient request if the prescription is for a schedule II opioid drug... Start Date: 05/24/23 Status: Ordered norethindrone 5 mg oral tablet 5 mg, 1, tablet, By Mouth, Daily, # 30 tablet, Refills 0, Tot. Refills 0, Maintenance, 05/14/23 18:08:00 EST, Route to Pharmacy Electronically, [facility]/pharmacy #[id number], Partial fill upon [...] Reference Physician Member Role: PCP Address: Address: [address] [place] [address] Drive [address] [place] [address] - Name: Katie Berger RN Position: [facility] RN Member Role: Primary Care Nurse Name: Loreto [place] RN Position: S RN Member Role: Primary Care Nurse Name: Jyoti Peraza RN Position: S RN Member Role: Primary Care Nurse Care Team Related Persons Name: SAHUMANJINDER Address: [address] Address: home [address] [place], [place] Name: JOSE SAHU Address: [address] Address: home [address] [place], [place] Name: DENNISE MCCLAIN Address: [place] [address]
--- OUTSIDE RECORDS SUMMARY | 2023-11-14 12:05 | XMS_ITS | Continuity of Care Document ---
Author Organization [facility] [employer] Address [address] [place] [address], 4t [place] [address]- Care Team Providers Care Project Engineering Manager Name Role Phone Jarrod Sherman MD Primary [facility] Physician [id number] Date[facility]14[facility]23 - 06/13/23 [facility] [address] [facility], 4th [place] [address]- Allergies, Adverse Reactions, Alerts Substance Reaction Severity [...] 07/24/22 8:20:00 EST, Route to Pharmacy Electronically, [facility], Partial fill upon patient [...] 0 Refills, Soft Stop, 06/04/23 10:09:00 EST, Tablet,[id number], Partial fill upon patient request [...] 05/14/23 18:08:00 EST, Route to Pharmacy Electronically, [id number], Partial fill upon patient request if the [...] Physician Member Role: PCP Address: Address: [address] [place] [address] [address] [place] [address] - Name: Katie Berger RN Position: [facility] SN RN Member Role: Primary Care Nurse Name: Loreto [place] RN Position: S RN Member Role: Primary Care Nurse Name: Jyoti Peraza RN Position: S RN Member Role: Primary Care Nurse Care Team Related Persons Name: MANJINDER SAHU Address: [address] Address: home [address] [place], [place] Name: JOSE SAHU Address: [address] Address: home [address] [place], [place] Name: DENNISE MCCLAIN Address: [place] [address]
--- OUTSIDE RECORDS SUMMARY | 2023-11-14 12:05 | XMS_ITS | Continuity of Care Document ---
Author Organization [facility] Address [address] [place] [address]- Care Team Providers Care Ambulatory Services Representative Name Role Phone Jarrod Sherman MD Primary Care Physician [phone] Encounter 07/25/22 - 08/01/22 [facility] [address] [place] [address]- Discharge Disposition: GOALS MET Allergies, Adverse Reactions, [...] 07/24/22 8:20:00 EST, Route to Pharmacy Electronically, [facility], Partial fill upon [...] Reference Physician Member Role: PCP Address: Address: [address] [place] [address] Drive [address] [place] [id number] Name: Katie Berger RN Position: CHARITY RN Member Role: Primary Care Nurse Name: Loreto Powell RN Position: S RN Member Role: Primary Care Nurse Name: Jyoti Peraza RN Position: S RN Member Role: Primary Care Nurse Care Team Related Persons Name: MANJINDER SAHU Address: [address] Address: home [address] [place] [address] [place] Name: JOSE SAHU Address: [address] Address: home [address] [place] [address] [place] Name: DENNISE MCCLAIN Address: [place] [address]
--- OUTSIDE RECORDS SUMMARY | 2023-11-14 12:05 | XMS_ITS | Continuity of Care Document ---
Author Organization [facility] [employer] Address [address] [facility], 4t [place] [address]- Care Team Providers Care Caption Writer Name Role Phone Jarrod Sherman MD Primary Care Physician [phone] [id number] Date(s[facility] 05/24/23 - 06/23/23 [facility] [address] [facility], 4th [place] [address]- Allergies, Adverse Reactions, Alerts Substance Reaction Severity [...] 07/24/22 8:20:00 EST, Route to Pharmacy Electronically, [facility], Partial fill upon patient [...] Reference Physician Member Role: PCP Address: Address: [address] [place] [address] Drive [address] [place] [address] - Name: Katie Berger RN Position: [facility] SN RN Member Role: Primary Care Nurse Name: Loreto Powell RN Position: S RN Member Role: Primary Care Nurse Name: Jyoti Peraza RN Position: S RN Member Role: Primary Care Nurse Care Team Related Persons Name: SAHUMANJINDER Address: [address] Address: home [address] [place], [place] Name: JOSE SAHU Address: [address] Address: home [address] [place], [place] Name: DENNISE MCCLAIN Address: [place] [address]
--- OUTSIDE RECORDS SUMMARY | 2023-11-14 12:05 | XMS_ITS | Continuity of Care Document ---
Author Organization [facility] Address [address] [place] [address], 4t [place] [address]- Care Team Providers Care Molasses And Caramel Operator Name Role Phone Jarrod Sherman MD Primary Care Physician [place] [facility] [place] 05/24/23 - 06/23/23 [facility] [address] [facility], 4th [place] [address]- Allergies, Adverse Reactions, Alerts Substance Reaction Severity [...] 07/24/22 8:20:00 EST, Route to Pharmacy Electronically, [facility], Partial fill upon patient request [...] Reference Physician Member Role: PCP Address: Address: [address] [place] [address] Drive [address] [place] [address] - Name: Katie Berger RN Position: [facility] SN RN Member Role: Primary Care Nurse Name: Loreto Powell RN Position: S RN Member Role: Primary Care Nurse Name: Jyoti Peraza RN Position: S RN Member Role: Primary Care Nurse Care Team Related Persons Name: SAHUMANJINDER Address: [address] Address: home [address] [place], [place] Name: JOSE SAHU Address: [address] Address: home [address] [place], [place] Name: DENNISE MCCLAIN Address: [place] [address]
--- OUTSIDE RECORDS SUMMARY | 2023-11-14 12:05 | XMS_ITS | Continuity of Care Document ---
Author Organization [facility] [employer] Address [address] [place] [address], 4t [place] [address]- Care Team Providers Care Ski Lift Mechanic Name Role Phone Jarrod Sherman MD Primary Care Physician [place] [facility] [place] Date(s): 04/30/22 - 05/30/22 [facility] [employer] [address] [facility], 4th [place] [address]- Allergies, Adverse Reactions, Alerts Substance Reaction Severity [...] Route to Pharmacy Electronically, [facility]/pharmacy #[id number], Partial fill upon patientrequest if the prescription is for a schedule II op... Start Date: 03/06/21 Status: Ordered labetalol 200 mg oral tablet 1 tablet, By Mouth, 2 times a day, # 60 tablet, 0 Refills, [facility] 09324, 154.9, cm, 12/18/20 12:26:00 EDT, Height, 106.7, [...] Reference Physician Member Role: PCP Address: Address: [address] [place] [address] Drive [address] [place], [place] - Care Team Related Persons Name: MANJINDER SAHU Address: Address: home [address] [place], [place] Name: JOSE SAHU Address: Address: home [address] [place], [place] Name: DENNISE MCCLAIN Address: [place] [address]
--- OUTSIDE RECORDS SUMMARY | 2023-11-14 12:05 | XMS_ITS | Continuity of Care Document ---
Author Organization [facility] [employer] Address [address] [place] [address], 4t [place] [address]- Care Team Providers Care Bi Consultant Name Role Phone Jarrod Sherman MD Primary Care Physician [phone] [facility] [id number] Date(s): 05/13/23 - 05/20/23 [facility] [address] [facility], 4th [place] [address]- Attending Physician: Grupo Alegre MD Admitting Physician: Denise Laws MD Referring Physician: Jarrod [...] 2 Refills, Maintenance, 07/03/22 14:00:00 EST, Capsule, [facility]/pharmacy #[id number], [...] 05/14/23 18:08:00 EST, Route to Pharmacy Electronically, [facility]/pharmacy #[id number], Partial fill upon patient request if the [...] recent to oldest [Reference Range]: 1 Height 155 cm (05/13/23 2:07 PM) Weight 96.36 kg (05/13/23 2:07 PM) Body Mass Index [18.5-24.99 kg/m2] 40.11 kg/m2 *>HHI* (05/13/23 2:07 PM) Blood Pressure [90-138/55-84 mm Hg] 130/ 72mm Hg (05/13/23 2:07 PM) Blood pressure sites Arm, right (05/13/23 2:07 PM) Weight Obtained Via Standing scale (05/13/23 2:07 PM) Social History Social History Type Response Smoking Status Former smoker, quit more than 30 days ago entered on: 08/04/20 Sex Patient Care team information Care Team Personnel Name: Lane GAMBOA, Jarrod Oneil Position: Reference Physician Member Role: PCP Address: Address: [address] [place] [address] Drive [address] [place] [address] - Name: Katie Berger RN Position: S RN Member Role: Primary Care Nurse Name: Loreto Powell RN Position: S RN Member Role: Primary Care Nurse Name: Jyoti Peraza RN Position: S RN Member Role: Primary Care Nurse Care Team Related Persons Name: SAHUMANJINDER Address: Address: home [address] [place], [place] Name: JOSE SAHU Address: Address: home [address] [place], [place] Name: DENNISE MCCLAIN Address: [place] [address]
--- OUTSIDE RECORDS SUMMARY | 2023-11-14 12:05 | XMS_ITS | Continuity of Care Document ---
Author Organization [facility] Address [address] [facility], 4t [place] [address]- Care Team Providers Care Hotel Receptionist Name Role Phone Jarrod Sherman MD Primary Care Physician [phone] [place] [facility] [place](s): 07/03/22 - 08/02/22 [facility] [address], 4th [place] [address]- Attending Physician: Kalen Yusuf Admitting Physician: AdmKalen gastelum Referring Physician: [id number] Allergies, Adverse Reactions, Alerts Substance Reaction Severity [...] 07/24/22 8:20:00 EST, Route to Pharmacy Electronically, [facility], Partial fill upon patient request if the prescription is for a schedule I... Start Date: 07/24/22 Stop Date: 08/07/22 Status: Ordered CeleBREX 200 mg oral capsule 1 capsule = 200 mg, By Mouth, 2 times a day, take while on menses do not mix with ibuprofen, # 60 capsule, 2 Refills, Maintenance, 07/03/22 14:00:00 EST, Capsule, [facility]/pharmacy #[id number], Partial [...] Reference Physician Member Role: PCP Address: Address: [address] [place], [place] - [place] Name: Katie Berger RN Position: S RN Member Role: Primary Care Nurse Name: Loreto Powell RN Position: S RN Member Role: Primary Care Nurse Name: Jyoti Peraza RN Position: [facility] RN Member Role: Primary Care Nurse Care Team Related Persons Name: LUIS ALBERTO MANJINDER Address: [address] Address: home [address] [place] [address] [place] Name: SAHU, JOSE Address: [address] Address: home [address] [place] [address] [place] Name: DENNISE MCCLAIN Address: [place] [address]
--- OUTSIDE RECORDS SUMMARY | 2023-11-14 12:05 | XMS_ITS | Continuity of Care Document ---
Author Organization [facility] [employer] Address [address] [facility], 4[place] [address]- Care Team Providers Care Dental Surgeon Name Role Phone Jarrod Sherman MD Primary Care Physician [facility] [place](s[facility] 07/10/23 - 08/09/23 [facility] [address] [place], 4th [place] [address]- Allergies, Adverse Reactions, Alerts Substance Reaction Severity [...] 8:20:00 EST, Route to Pharmacy Electronically, [facility], Partial fill upon [...] Reference Physician Member Role: PCP Address: Address: [address] [place] [address] Drive [address] [place], [place] - Name: Katie Berger RN Position: [facility] RN Member Role: Primary Care Nurse Name: Loreto Powell RN Position: S RN Member Role: Primary Care Nurse Name: Jyoti Peraza RN Position: S RN Member Role: Primary Care Nurse Care Team Related Persons Name: LUIS ALBERTO MANJINDER Address: [address] Address: home [address] [place], [place] Name: SAHUJOSE Address: [address] Address: [address] [place], [place] Name: DENNISE MCCLAIN Address: [place] [address]
--- OUTSIDE RECORDS SUMMARY | 2023-11-14 12:05 | XMS_ITS | Continuity of Care Document ---
Author Organization [facility] Address [address] [facility], 4t [place] [address]- Care Team Providers Care Computer Lab Aide Name Role Phone Jarrod Sherman MD Primary Care Physician [facility] Date(s): 05/07/23 - 05/14/23 [facility] [address] [place], 4th [place] [address]- Attending Physician: Natividad Jiang DO Referring Physician: Aby Gill CNM Allergies, Adverse Reactions, Alerts Substance Reaction [...] 07/24/22 8:20:00 EST, Route to Pharmacy Electronically, [facility], Partial fill upon patient request if the prescription is for a schedule I... Start Date: 07/24/22 Stop Date: 08/07/22 Status: Ordered CeleBREX 200 mg oral capsule 1 capsule = 200 mg, By Mouth, 2 times a day, take while on menses do not mix with ibuprofen, # 60 capsule, 2 Refills, Maintenance, 07/03/22 14:00:00 EST, Capsule, [facility]/pharmacy #[id number], Partial fill upon patient request if [...] 05/14/23 18:08:00 EST, Route to Pharmacy Electronically, [facility]/pharmacy #[id number], Partial fill upon patient request if the [...] oldest [Reference Range]: 1 Height 155 cm (05/07/23 6:56 PM) Weight 99.7 kg (05/07/23 6:56 PM) Pulse Rate [55-90 bpm] 69 bpm (05/07/23 6:56 PM) Body Mass Index [18.5-24.99 kg/m2] 41.5 kg/m2 *>HHI* (05/07/23 6:56 PM) Blood Pressure [90-138/55-84 mm Hg] 113/ 56mm Hg (05/07/23 6:56 PM) Blood pressure sites Arm, right (05/07/23 6:56 PM) Dry Weight 99.7 kg (05/07/23 6:56 PM) Weight Obtained Via Standing scale (05/07/23 6:56 PM) Dry Weight Obtained Via Standing scale (05/07/23 6:56 PM) Social History Social History Type Response Smoking Status Former smoker, quit more than 30 days ago entered on: 08/04/20 Sex Patient Care team information Care Team Personnel Name: Lane GAMBOA, Jarrod Oneil Position: Reference Physician Member Role: PCP Address: Address: [address] [place] [address] Drive [address] [place] [address] - Name: Katie Berger RN Position: S RN Member Role: Primary Care Nurse Name: Loreto Powell RN Position: S RN Member Role: Primary Care Nurse Name: Jyoti Peraza RN Position: S RN Member Role: Primary Care Nurse Care Team Related Persons Name: SAHUMANJINDER Address: Address: home [address] [place], [place] Name: JOSE SAHU Address: Address: home [address] [place], [place] Name: DENNISE MCCLAIN Address: [place] [address]
--- OUTSIDE RECORDS SUMMARY | 2023-11-14 12:05 | XMS_ITS | Continuity of Care Document ---
Author Organization [facility] [employer] Address [address] [place] [address], 4t [place] [address]- Care Team Providers Care Paradi Operator Name Role Phone Jarrod Sherman MD Primary Care Physician [id number] Date(s): 05/24/23 - 06/23/23 [facility] [address] [facility], 4th [place] [address]- Allergies, Adverse Reactions, Alerts Substance Reaction Severity [...] 07/24/22 8:20:00 EST, Route to Pharmacy Electronically, [facility], Partial fill upon [...] Physician Member Role: PCP Address: Address: [address] [place] [address] Drive [address] [place] [address] - Name: Katie Berger RN Position: [facility] SN RN Member Role: Primary Care Nurse Name: Loreto Powell RN Position: S RN Member Role: Primary Care Nurse Name: Jyoti Peraza RN Position: S RN Member Role: Primary Care Nurse Care Team Related Persons Name: SAHUMANJINDER Address: [address] Address: home [address] [place], [place] Name: JOSE SAHU Address: [address] Address: [address] [place], [place] Name: DENNISE MCCLAIN Address: [place] [address]
--- OUTSIDE RECORDS SUMMARY | 2023-11-14 12:06 | XMS_ITS | Continuity of Care Document ---
Author Organization [facility] Address [address] [place] [address]- Care Team Providers Care Aprn Name Role Phone Jarrod Sherman MD Primary Care Physician [place] [facility] [place] Date(s): 05/12/22 - 05/13/[address] [address]- Discharge Disposition: A-D/C Walkout Attending Physician: Not on Staff, Attending MD Admitting Physician: Not on Staff, Admitting MD Referring Physician: Not on Staff, Referring [...] Route to Pharmacy Electronically, [facility]/pharmacy #[id number], Partial fill upon patientrequest if the prescription is for a schedule II op... Start Date: 03/06/21 Status: Ordered labetalol 200 mg oral tablet 1 tablet, By Mouth, 2 times a day, # 60 tablet, 0 Refills, [facility] 49669, 154.9, cm, 12/18/20 12:26:00 EDT, Height, 106.7, [...] Exam Date Time Procedure Performing Provider Status 05/13/22 8:23 AM Chest 2 Views Frontal and Lat Usha Loja; Colin (Verified) Notes: (Chest 2 Views Frontal and Lat) Reason For Exam: Chest Pain;Other: RESULT: Chest 2 Views Frontal and Lat Chest 2 Views Frontal and Lat Hx of Present Illness: chest pain N V; Reason: Other:; Chest Pain; Clinical Question(s): Other: / Other: COMPARISON: None. FINDINGS: LINES AND TUBES: None. LUNGS AND PLEURA: Clear lungs. Normal pulmonary vascularity. No pleural effusion. No pneumothorax. HEART, MEDIASTINUM AND BETTIE: Heart is normal in size. Normal mediastinal and hilar contour. BONES AND SOFT TISSUES: No acute abnormality. IMPRESSION: No evidence of acute abnormality. WSN: [id number] Ordering Physician: Chilango Hwang Dictated By: Paxton Nava MD Dictated Date/Time: 05/13/22 8:29 am Reviewed By: Paxton Nava MD Signed By: Paxton Nava MD Signed Date/Time: 05/13/22 8:29 am Transcribed By: MARLA Transcribed Date/Time: 05/13/22 8:28 am Vital Signs Most recent to oldest [Reference Range]: 1 2 3 Oxygen Saturation [94-100 %] 100 % (05/13/22 9:37 AM) 100 % (05/13/22 8:33 AM) 100 % (05/13/22 6:37 AM) Pulse Rate [55-90 bpm] 66 bpm (05/13/22 9:37 AM) 62 bpm (05/13/22 8:33 AM) 60 bpm (05/13/22 6:37 AM) Blood Pressure [90-138/55-84 mm Hg] 167/95mm Hg *H* (05/13/22 9:37 AM) 146/84mm Hg *H* (05/13/22 8:33 AM) 139/80mm Hg *H* (05/13/22 6:37 AM) Respiratory Rate [16-30 br/min] 18 br/min (05/13/22 9:37 AM) 18 br/min (05/13/22 6:37 AM) 18 br/min (05/12/22 11:26 PM) Temperature [96.8-100.4 DegF] 98.2 DegF (05/13/22 9:37 AM) 98.2 DegF (05/13/22 8:33 AM) 98.1 DegF (05/13/22 6:37 AM) Mode of Delivery (Oxygen) Room air (05/13/22 9:37 AM) Room air (05/13/22 8:33 AM) Room air (05/13/22 6:37 AM) Blood pressure sites Arm, right (05/13/22 9:37 AM) Arm, right (05/13/22 8:33 AM) Arm, right (05/13/22 6:37 AM) Temperature Route Oral (05/13/22 9:37 AM) Oral (05/13/22 8:33 AM) Oral (05/13/22 6:37 AM) Social History Social History Type Response Smoking Status Former smoker, quit more than 30 days ago entered on: 08/04/20 Sex EKG study * Event Display: EKG Authored Date: [id number] Note * BHSPowerscribe , CIS S: TRANSCRIBE Paxton Nava MD: VERIFY Event Display: Result: Authored Date: Chest 2 Views Frontal and Lat Hx of Present Illness: chest pain N V; Reason: Other:; Chest Pain; Clinical Question(s): Other: / Other: COMPARISON: None. FINDINGS: LINES AND TUBES: None. LUNGS AND PLEURA: Clear lungs. Normal pulmonary vascularity. No pleural effusion. No pneumothorax. HEART, MEDIASTINUM AND BETTIE: Heart is normal in size. Normal mediastinal and hilar contour. BONES AND SOFT TISSUES: No acute abnormality. IMPRESSION: No evidence of acute abnormality. WSN: [id number] Ordering Physician: Chilango Hwang Dictated By: Paxton Nava MD Dictated Date/Time: 05/13/22 8:29 am Reviewed By: Paxton Nava MD Signed By: Paxton Nava MD Signed Date/Time: 05/13/22 8:29 am Transcribed By: MALRA Transcribed Date/Time: 05/13/22 8:28 am Patient Care team information Care Team Personnel Name: Jarrod Sherman MD Position: Reference Physician Member Role: PCP Address: Address: [address] [place] [address] [address] [place] [address]- [place] Care Team Related Persons Name: MANJINDER SAHU Address: [address] Address: home [address] [place], [place] Name: JOSE SAHU Address: [address] Address: home [address] [place], [place] Name: DENNISE MCCLAIN Address: [place] [address]
--- OUTSIDE RECORDS SUMMARY | 2023-11-14 12:06 | XMS_ITS | Continuity of Care Document ---
Author Organization [facility] Address [address] [place] [address]- Care Team Providers Care Emergency Vehicle Dispatcher Name Role Phone Jarrod Sherman MD Primary Care Physician [place] [facility] [place] 07/23/22 - 08/22/[address] [address]- Attending Physician: Not on Staff, Attending MD [...] 07/24/22 8:20:00 EST, Route to Pharmacy Electronically, [facility], Partial fill upon patient request if the prescription is for a schedule I... Start Date: 07/24/22 Stop Date: 08/07/22 Status: Ordered CeleBREX 200 mg oral capsule 1 capsule = 200 mg, By Mouth, 2 times a day, take while on menses do not mix with ibuprofen, # 60 capsule, 2 Refills, Maintenance, 07/03/22 14:00:00 EST, Capsule, [facility]/pharmacy #[id number], Partial [...] Physician Member Role: PCP Address: Address: [address] [place] [address] [place] [address]- Name: Katie Berger RN Position: S RN Member Role: Primary Care Nurse Name: Loreto Powell RN Position: S RN Member Role: Primary Care Nurse Name: Jyoti Peraza RN Position: S RN Member Role: Primary Care Nurse Care Team Related Persons Name: MANJINDER SAHU Address: [address] Address: home [address] [place], [place] Name: LUIS ALBERTO JOSE Address: [address] Address: home [address] [place], [place] Name: DENNISE MCCLAIN Address: [place] [address]
--- OUTSIDE RECORDS SUMMARY | 2023-11-14 12:06 | XMS_ITS | Continuity of Care Document ---
Author Organization [facility] Address [address] [facility], 4t [place] [address]- Care Team Providers Care Continuous Crusher Operator Name Role Phone Jarrod Sherman MD Primary Care Physician [place] [facility] [place](s): 07/11/23 - 08/15/23 [facility] [address], 4th [place] [address]- Attending Physician: Shirley Garza MD Referring Physician: Not on Staff, Referring [...] 07/24/22 8:20:00 EST, Route to Pharmacy Electronically, [facility], Partial fill upon patient [...] Reference Physician Member Role: PCP Address: Address: [address] [place] [address] Drive [address] [place] [address] - Name: Katie Berger RN Position: [facility] SN RN Member Role: Primary Care Nurse Name: Loreto Powell RN Position: S RN Member Role: Primary Care Nurse Name: Jyoti Peraza RN Position: S RN Member Role: Primary Care Nurse Care Team Related Persons Name: LUIS ALBERTOMANJINDER Address: Address: home [address] [place], [place] Name: SAHU, JOSE Address: Address: home [address] [place], [place] Name: DENNISE MCCLAIN Address: [place] [address]
--- OUTSIDE RECORDS SUMMARY | 2023-11-14 12:06 | XMS_ITS | Continuity of Care Document ---
Author Organization [facility] Yessica gant [facility] Address [address] [place] [address], 4t [place] [address]- Care Team Providers Care Slabber Name Role Phone Lane GAMBOA, Jarrod Oneil Primary Care Physician [phone] [facility] [id number] Date(s): 08/30/23 - 09/06/23 [facility] Yessicaabisai LeonScratch Hards [facility] [address] [facility], 4th [place] [address]- Attending Physician: Denise Laws MD Referring Physician: [...] 07/24/22 8:20:00 EST, Route to Pharmacy Electronically, [facility], Partial fill upon patient [...] opioid drug. Start Date: 08/18/20 Status: Ordered Vandazole 0.75% vaginal gel with applicator 1 applicator, Vaginally, Daily at bedtime, for 5 days, # 70 Gm, 0 Refills, Acute 09/08/23 15:58:00 EDT, 09/03/23 15:58:00 EDT, Gel, [id number], Partial fill upon patient request if the prescription is for a schedule II opioid drug., 1 applicat... Start Date: 09/03/23 Stop Date: 09/08/23 Status: Ordered Problem List Condition Confirmation Course [...] Reference Physician Member Role: PCP Address: Address: [address] [place] [address] Drive [address] [place] [address] - Name: Katie Berger RN Position: [facility] RN Member Role: Primary Care Nurse Name: Loreto Powell RN Position: S RN Member Role: Primary Care Nurse Name: Jyoti Peraza RN Position: S RN Member Role: Primary Care Nurse Care Team Related Persons Name: LUIS ALBERTO MANJINDER Address: Address: home [address] [place], [place] Name: JOSE SAHU Address: Address: [address] [place], [place] Name: DENNISE MCCLAIN Address: [place] [address]
--- OUTSIDE RECORDS SUMMARY | 2023-11-14 12:06 | XMS_ITS | Continuity of Care Document ---
Author Organization [facility] Yessica gant [facility] Address [address] [facility], 4t [place] [address]- Care Team Providers Care Staff Electrical Engineer Name Role Phone Jarrod [place] MD Primary Care Physician [phone] Encounter [facility] Date(s): 12/24/22 - 01/23/23 [facility] [address] [place], 4th [address] [place], [place] [address] Allergies, Adverse Reactions, Alerts Substance [...] 07/24/22 8:20:00 EST, Route to Pharmacy Electronically, [facility], Partial fill upon patient request if the prescription is for a schedule I... Start Date: 07/24/22 Stop Date: 08/07/22 Status: Ordered CeleBREX 200 mg oral capsule 1 capsule = 200 mg, By Mouth, 2 times a day, take while on menses do not mix with ibuprofen, # 60 capsule, 2 Refills, Maintenance, 07/03/22 14:00:00 EST, Capsule, [facility]/pharmacy #[id number], Partial fill upon patient request [...] Physician Member Role: PCP Address: Address: [address] [place] [address] Drive [address] [place] [address]- Name: Katie Berger RN Position: S RN Member Role: Primary Care Nurse Name: Loreto Powell RN Position: S RN Member Role: Primary Care Nurse Name: Jyoti Peraza RN Position: S RN Member Role: Primary Care Nurse Care Team Related Persons Name: MANJINDER SAHU Address: [address] Address: home [address] [place] [address] [place] Name: JOSE SAHU Address: [address] Address: home [address] [place] [address] [place] Name: DENNISE MCCLAIN Address: [place] [address]
--- OUTSIDE RECORDS SUMMARY | 2023-11-14 12:06 | XMS_ITS | Continuity of Care Document ---
Author Organization [facility] Address [address] [place] [address]- Care Team Providers Care Refrigerator Repairman Name Role Phone Lane GAMBOA, Jarrod Oneil Primary Care Physician Encounter [facility] Date(s): 10/07/23 - 10/14/23 [facility] [address] [place], [place] [address] Attending Physician: Brandon Murrell MD Referring Physician: Alex GAMBOA, Jayson Faria Allergies, Adverse Reactions, Alerts Substance Reaction Severity [...] Date: 07/24/22 Stop Date: 08/07/22 Status: Ordered clotrimazole 1% topical cream 1 application, Topically, Daily at bedtime, for 7 days, # 30 Gm, 0 Refills, Acute 10/21/23 11:26:00EDT, 10/14/23 11:26:00 EDT, Cream, [facility]/pharmacy #[id number], Partial fill upon patient request if the prescription is for a schedule II opioid drug., 1 appli... Start Date: 10/14/23 Stop Date: 10/21/23 Status: Ordered Dexilant 60 mg oral delayed release capsule 1 capsule = 60 mg, By Mouth, Daily, # 30 capsule, 0 Refills, Maintenance, 07/23/22 6:39:00 EST, [facility] Capsule, Partial fill upon patient request if the prescription is for a schedule II opioid drug. Start Date: 07/23/22 Status: Ordered fluconazole 150 mg oral tablet 1 tablet = 150 mg, By Mouth, Once, epeat dose if still having symptoms in 72 hours, # 2 tablet, 0 Refills, Soft Stop, 10/11/23 9:40:00 EDT, Tablet, [facility]/pharmacy #[id number], Partial fill upon patient request if the prescription is for a schedule II opioid d... Start Date: 10/11/23 Status: Ordered Gabapentin = 400 mg, By [...] opioid drug. Start Date: 07/03/22 Status: Ordered metroNIDAZOLE 500 mg oral tablet 1 tablet = 500 mg, By Mouth, Every 12 hours, for 7 days, # 14 tablet, 0 Refills, Acute 10/18/23 9:39:00 EDT, 10/11/23 9:39:00 EDT, Tablet, [facility]/pharmacy #[id number], Partial fill upon patient request if theprescription is for a schedule II opioid drug., 156... Start Date: 10/11/23 Stop Date: 10/18/23 Status: Ordered sertraline 100 mg oral tablet [...] recent to oldest [Reference Range]: 1 Height 156.4 cm (10/07/23 10:13 AM) Weight 97.5 kg (10/07/23 10:13 AM) Oxygen Saturation [94-100 %] 100 % (10/07/23 10:13 AM) Pulse Rate [55-90 bpm] 60 bpm (10/07/23 10:13 AM) Body Mass Index [18.5-24.99 kg/m2] 39.86 kg/m2 *>HHI* (10/07/23 10:13 AM) Blood Pressure [90-138/55-84 mm Hg] 154/ 80mm Hg *H* (10/07/23 10:13 AM) Respiratory Rate [16-30 br/min] 12 br/mi n *L* (10/07/23 10:13 AM) Mode of Delivery (Oxygen) Room air (10/07/23 10:13 AM) Blood pressure sites Arm, left (10/07/23 10:13 AM) Dry Weight 97.5 kg (10/07/23 10:13 AM) Weight Obtained Via Standing scale (10/07/23 10:13 AM) Dry Weight Obtained Via Standing scale (10/07/23 10:13 AM) Social History Social History Type Response Smoking Status Former smoker, quit more than 30 days ago entered on: 10/07/23 Sex EKG study * Event Display: ECG 12-Lead Authored Date: Please click on pdf link to open report * Event Display: ECG 12-Lead Authored Date: Ventricular Rate: 60 BPM Atrial Rate: 60 BPM P-R Interval: 126 ms QRS Duration: 86 ms Q-T Interval: 420 ms QTC Calculation(Bazett): 420 ms P [place]: 18 degrees R [place]: 54 degrees T [place]: 20 degrees Normal sinus rhythm Normal ECG When compared with ECG of 26-JUN-2022 16:03, No significant change was found Confirmed by JARED JARRETT MD ([id number]) on 10/07/2023 11:26:29 AM [place]: JARED JARRETT MD Patient Care team information Care Team Personnel Name: Jarrod [place] MD Position: Reference Physician Member Role: PCP Address: Address: [address] [place] [address] Drive [address] [place] [address]- Name: Katie Berger RN Position: [facility] RN Member Role: Primary Care Nurse Name: Loreto Powell RN Position: S RN Member Role: Primary Care Nurse Name: Jyoti Peraza RN Position: S RN Member Role: Primary Care Nurse Care Team Related Persons Name: LISA SAHULOI Address: [address] Address: home [address] [place] [address] Name: JOSE SAHU Address: [address] Address: home [address] [facility] [place] [address] [place] Name: DENNISE MCCLAIN Address: [place] [address]
--- OUTSIDE RECORDS SUMMARY | 2023-11-14 12:06 | XMS_ITS | Continuity of Care Document ---
Author Organization [facility] Address [address] [facility], 4t [place] [address]- Care Team Providers Care Yarrow Gatherer Name Role Phone Jarrod [place] MD Primary Care Physician [phone] Encounter [facility] ACCT R [id number] Date(s): 10/11/23 - 11/10/23 [facility] [address] [place], 4th Floor [place], [place] [address] Attending Physician: Kalen Yusuf Admitting Physician: [...] 07/24/22 8:20:00 EST, Route to Pharmacy Electronically, [facility], Partial fill upon patient request [...] Acute 11/15/23 15:39:00 EDT, 11/08/23 15:39:00 EDT, [facility]/pharmacy #[id number], APPLY TO AFFECTED AREA AT BEDTIME [...] Physician Member Role: PCP Address: Address: [address] [place] [address] Drive [address] [place] [address] - Name: Denise Hurt RN Position: S RN Member Role: Primary Care Nurse Name: Katie Berger RN Position: [facility] SN RN Member Role: Primary Care Nurse Name: John Gtz RN Position: S RN Member Role: Primary Care Nurse Name: Loreto Powell RN Position: S RN Member Role: Primary Care Nurse Name: Jyoti Peraza RN Position: S RN Member Role: Primary Care Nurse Care Team Related Persons Name: LUIS ALBERTO MANJINDER Address: Address: home [address] [place], [place] Name: SAHU, JOSE Address: Address: home [address] [place], [place] Name: DENNISE MCCLAIN Address: [place] [address]
--- OUTSIDE RECORDS SUMMARY | 2023-11-14 12:06 | XMS_ITS | Continuity of Care Document ---
Author Organization [facility] Yessica garciaLibra Alliancetita [facility] Address [address] [place] [address], 4t [place] [address]- Care Team Providers Care Continuous Improvement Consultant Name Role Phone Lane GAMBOA, Jarrod Oneil Primary Care Physician [phone] [id number] Date(s): 02/06/23 - 02/13/23 [facility] Evertonabisai LeonLibra Alliances [facility] [address] [facility], 4th [place] [address]- Attending Physician: Grupo Alegre MD Referring Physician: Shelia Day Allergies, Adverse Reactions, Alerts Substance Reaction Severity [...] 07/24/22 8:20:00 EST, Route to Pharmacy Electronically, [facility], Partial fill upon patient request if the prescription is for a schedule I... Start Date: 07/24/22 Stop Date: 08/07/22 Status: Ordered CeleBREX 200 mg oral capsule 1 capsule = 200 mg, By Mouth, 2 times a day, take while on menses do not mix with ibuprofen, # 60 capsule, 2 Refills, Maintenance, 07/03/22 14:00:00 EST, Capsule, [facility]acy #[id number], Partial fill upon patient request [...] oldest [Reference Range]: 1 Height 155 cm (02/06/23 11:34 AM) Weight 96.8 kg (02/06/23 11:34 AM) Pulse Rate [55-90 bpm] 79 bpm (02/06/23 11:34 AM) Body Mass Index [18.5-24.99 kg/m2] 40.29 kg/m2 *>HHI* (02/06/23 11:34 AM) Blood Pressure [90-138/55-84 mm Hg] 130/ 73mm Hg (02/06/23 11:34 AM) Dry Weight 96.8 kg (02/06/23 11:34 AM) Weight Obtained Via Standing scale (02/06/23 11:34 AM) Dry Weight Obtained Via Standing scale (02/06/23 11:34 AM) Social History Social History Type Response Smoking Status Former smoker, quit more than 30 days ago entered on: 08/04/20 Sex Patient Care team information Care Team Personnel Name: Lane GAMBOA, Jarrod Oneil Position: Reference Physician Member Role: PCP Address: Address: [address] [place] [address] Drive [address] [place] [address] - Name: Katie Berger RN Position: S RN Member Role: Primary Care Nurse Name: Loreto Powell RN Position: S RN Member Role: Primary Care Nurse Name: Jyoti Peraza RN Position: S RN Member Role: Primary Care Nurse Care Team Related Persons Name: SAHUMANJINDER Address: [address] Address: home [address] [address] [place] Name: JOSE SAHU Address: [address] Address: [address] [place], [place] Name: DENNISE MCCLAIN Address: [place] [address]
--- OUTSIDE RECORDS SUMMARY | 2023-11-14 12:06 | XMS_ITS | Continuity of Care Document ---
Author Organization [facility] Yessica gant [facility] Address [address] [place] [address], 4t [place] [address]- Care Team Providers Care Concert Or Lecture Hall Manager Name Role Phone Jarrod [place] MD Primary Care Physician [phone] Encounter [facility] Date(s): 04/30/22 - 05/30/22 [facility] Yessicaabisai LeonTourvia.mes [facility] [address] [facility], 4th [place] [address]- Allergies, Adverse Reactions, Alerts Substance Reaction Severity [...] 03/06/21 15:09:00 EDT, Route to Pharmacy Electronically, [facility]/pharmacy #[id number], Partial fill upon patientrequest if the prescription is for a schedule II op... Start Date: 03/06/21 Status: Ordered labetalol 200 mg oral tablet 1 tablet, By Mouth, 2 times a day, # 60 tablet, 0 Refills, [facility] [id number], 154.9, cm, 12/18/20 12:26:00 EDT, Height, 106.7, [...] Reference Physician Member Role: PCP Address: Address: [address] [place] [address] Drive [address] [place], [place] - Care Team Related Persons Name: MANJINDER SAHU Address: Address: home [address] [place], [place] Name: JOSE SAHU Address: Address: home [address] [place], [place] Name: DENNISE MCCLAIN Address: [place] [address]
--- OUTSIDE RECORDS SUMMARY | 2023-11-14 12:06 | XMS_ITS | Continuity of Care Document ---
Author Organization [facility] Address [address] [place] [address]- Care Team Providers Care Car Restorer Name Role Phone Jarrod [place] MD Primary Care Physician Encounter [facility] Date(s): 05/08/23 - 06/15/[address] [address] Attending Physician: Natividad Jiang DO Admitting Physician: Natividad Jiang DO Allergies, Adverse Reactions, [...] 07/24/22 8:20:00 EST, Route to Pharmacy Electronically, [facility], Partial fill upon patient request if the prescription is for a schedule I... Start Date: 07/24/22 Stop Date: 08/07/22 Status: Ordered CeleBREX 200 mg oral capsule 1 capsule = 200 mg, By Mouth, 2 times a day, take while on menses do not mix with ibuprofen, # 60 capsule, 2 Refills, Maintenance, 07/03/22 14:00:00 EST, Capsule, [facility]/pharmacy #[id number], Partial [...] 0 Refills, Soft Stop, 06/04/23 10:09:00 EST, Tablet,[facility]/pharmacy #[id number], Partial fill upon [...] 18:08:00 EST, Route to Pharmacy Electronically, [facility]/pharmacy #[id number], Partial fill upon patient request if the [...] Reference Physician Member Role: PCP Address: Address: [address] [place] [address] Drive [address] [place] [address] - Name: Katie Berger RN Position: [facility] RN Member Role: Primary Care Nurse Name: Loreto Powell RN Position: S RN Member Role: Primary Care Nurse Name: Jyoti Peraza RN Position: S RN Member Role: Primary Care Nurse Care Team Related Persons Name: MANJINDER SAHU Address: [address] Address: home [address] [place], [place] Name: JOSE SAHU Address: [address] Address: home [address] [place], [place] Name: DENNISE MCCLAIN Address: [place] [address]
--- OUTSIDE RECORDS SUMMARY | 2023-11-14 12:06 | XMS_ITS | Continuity of Care Document ---
Author Organization [facility] Yessica gant [facility] Address [address] [place] [address], 4t [place] [address]- Care Team Providers Care Sewer Connector Name Role Phone Lane GAMBOA, Jarrod Oneil Primary Care Physician [facility] [id number] Date(s): 10/11/23 - 10/18/23 [facility] Vanceabisai LeonHostmonsters [facility] [address] [facility], 4th [place] [address]- Attending Physician: Jenelle GAMBOA, Delroy Quesada Admitting Physician: Jagjit GAMBOA, Lynda Blackburn Referring Physician: Not on Staff, Referring MD [...] Acute 10/21/23 11:26:00EDT, 10/14/23 11:26:00 EDT, Cream, [facility]/pharmacy #[id number], [...] Refills, Soft Stop, 10/11/23 9:40:00 EDT, Tablet, [facility]/pharmacy #[id number], Partial [...] oldest [Reference Range]: 1 Height 156.4 cm (10/11/23 9:19 AM) Weight 99.09 kg (10/11/23 9:19 AM) Body Mass Index [18.5-24.99 kg/m2] 40.51 kg/m2 *>HHI* (10/11/23 9:19 AM) Blood Pressure [90-138/55-84 mm Hg] 143/ 91mm Hg *H* (10/11/23 9:19 AM) Blood pressure sites Arm, right (10/11/23 9:19 AM) Dry Weight 99.09 kg (10/11/23 9:19 AM) Weight Obtained Via Standing scale (10/11/23 9:19 AM) Dry Weight Obtained Via Standing scale (10/11/23 9:19 AM) Social History Social History Type Response Smoking Status Former smoker, quit more than 30 days ago entered on: 10/07/23 Sex Patient Care team information Care Team Personnel Name: Jarrod [place] MD Position: Reference Physician Member Role: PCP Address: Address: [address] [place] [address] Drive [address] [place] [address]- Name: Katie Berger RN Position: S RN Member Role: Primary Care Nurse Name: Loreto Powell RN Position: S RN Member Role: Primary Care Nurse Name: Jyoti Peraza RN Position: S RN Member Role: Primary Care Nurse Care Team Related Persons Name: MANJINDER SAHU Address: [address] Address: home [address] [place] [address] [place] Name: JOSE SAHU Address: [address] Address: home [address] [place] [address] [place] Name: DENNISE MCCLAIN Address: [place] [address]
--- OUTSIDE RECORDS SUMMARY | 2023-11-14 12:07 | XMS_ITS | Continuity of Care Document ---
Author Organization [facility] Yessica gant [facility] Address [address] [facility], 4t [place] [address]- Care Team Providers Care Molecular Modeler Name Role Phone Jarrod [place] MD Primary Care Physician [phone] Encounter [facility] Date(s): 08/30/23 - 09/29/23 [facility] Yessicaabisai LeonJamgles [facility] [address] [place], 4th [place] [address]- Attending Physician: Kalen Yusuf Admitting Physician: AdmKalen gastelum Referring Physician: AdmtrKalen Allergies, Adverse Reactions, Alerts [...] 07/24/22 8:20:00 EST, Route to Pharmacy Electronically, [facility], Partial fill upon patient [...] Physician Member Role: PCP Address: Address: [address] [place] [address] Drive [address] [place] [address] - Name: Katie Berger RN Position: [facility] SN RN Member Role: Primary Care Nurse Name: Loreto [place] RN Position: S RN Member Role: Primary Care Nurse Name: Jyoti Peraza RN Position: S RN Member Role: Primary Care Nurse Care Team Related Persons Name: LUIS ALBERTOMANJINDER Address: Address: home [address] [place], [place] Name: JOSE SAHU Address: Address: [address] [place], [place] Name: DENNISE MCCLAIN Address: [place] [address]
--- OUTSIDE RECORDS SUMMARY | 2023-11-14 12:07 | XMS_ITS | Continuity of Care Document ---
Author Organization [facility] Yessica gant [facility] Address [address] [facility], 4t [place] [address]- Care Team Providers Care Risk Management Specialist Name Role Phone Jarrod [place] MD Primary Care Physician [place] [facility] Date(s): 07/03/22 - 07/10/22 [facility] Yessica LeonKviar Groupes [facility] [address] [place], 4th Floor [place], [place] [address] Attending Physician: Pedro GAMBOA [OB], Anastasia Haynes Referring Physician: Jarrod [place] MD Allergies, Adverse Reactions, Alerts Substance Reaction Severity Status amoxicillin Rash Active topiramate Swelling of throat Active Provera Bleeding Active Latex Skin rash Active Immunizations Given and Recorded Vaccine Date Status Refusal Reason tetanus/diphtheria/pertussis, acel(Tdap) 10/27/20 Given tetanus/diphtheria/pertussis, acel(Tdap) 10/09/19 Given Measles/Mumps/Rubella Virus Vaccine 10/22/19 Given Medications CeleBREX 200 mg oral capsule 1 capsule = 200 mg, By Mouth, 2 times a day, take while on menses do not mix with ibuprofen, # 60 capsule, 2 Refills, Maintenance, 07/03/22 14:00:00 EST, Capsule, [facility]/pharmacy #[id number], Partial fill upon patient request if the prescription is for a douglas... Start Date: 07/03/22 Status: Ordered Gabapentin By Mouth, 0 Refills, Maintenance, 04/24/21 21:28:00 EST, Partial fill upon patient request if the prescription is for a schedule II opioid drug. Start Date: 04/24/21 Status: Ordered labetalol 200 mg oral tablet 1 tablet, By Mouth, 2 times a day, # 60 tablet, 0 Refills, [facility] [id number], 154.9, cm, 12/18/20 12:26:00 EDT, Height, 106.7, kg, 12/15/20 14:39:00 EDT, Dry Weight Start Date: 02/06/21 Status: Ordered Linzess By Mouth, Daily, 0 Refills, Maintenance, 07/03/22 [...] oldest [Reference Range]: 1 Height 154.94 cm (07/03/22 1:48 PM) Weight 101.6 kg (07/03/22 1:48 PM) Pulse Rate [55-90 bpm] 71 bpm (07/03/22 1:48 PM) Body Mass Index [18.5-24.99 kg/m2] 42.32 kg/m2 *>HHI* (07/03/22 1:48 PM) Blood Pressure [90-138/55-84 mm Hg] 118/ 47mm Hg (07/03/22 1:48 PM) Blood pressure sites Arm, right (07/03/22 1:48 PM) Dry Weight 101.6 kg (07/03/22 1:48 PM) Weight Obtained Via Standing scale (07/03/22 1:48 PM) Dry Weight Obtained Via Standing scale (07/03/22 1:48 PM) Social History Social History Type Response Smoking Status Former smoker, quit more than 30 days ago entered on: 08/04/20 Sex Patient Care team information Care Team Personnel Name: Jarrod [place] MD Position: Reference Physician Member Role: PCP Address: Address: [address] [place] [address] Drive [address] [place] [address]- Care Team Related Persons Name: MANJINDER SAHU Address: [address] Address: home [address] [place] [address] [place] Name: JOSE SAHU Address: [address] Address: home [address] [place] [address] [place] Name: DENNISE MCCLAIN Address: [place] [address]
--- OUTSIDE RECORDS SUMMARY | 2023-11-14 12:07 | XMS_ITS | Continuity of Care Document ---
Author Organization [facility] ter Address [address] [place] [id number] Care Team Providers Care Senior Counsel Commercial Name Role Phone Jarrod Sherman MD Primary Care Physician Encounter [facility] [place] Date(s): 07/13/22 - 09/16/[address] [address] Attending Physician: Shelia Day Admitting Physician: Shelia Day Referring Physician: Shelia Day Allergies, Adverse Reactions, [...] 07/24/22 8:20:00 EST, Route to Pharmacy Electronically, [facility], Partial fill upon patient request if the prescription is for a schedule I... Start Date: 07/24/22 Stop Date: 08/07/22 Status: Ordered CeleBREX 200 mg oral capsule 1 capsule = 200 mg, By Mouth, 2 times a day, take while on menses do not mix with ibuprofen, # 60 capsule, 2 Refills, Maintenance, 07/03/22 14:00:00 EST, Capsule, [facility]/pharmacy #[id number], [...] Address: Address: [address] [place] [address]- Name: Katie Berger RN Position: S RN Member Role: Primary Care Nurse Name: Loreto Powell RN Position: S RN Member Role: Primary Care Nurse Name: Jyoti Peraza RN Position: S RN Member Role: Primary Care Nurse Care Team Related Persons Name: MANJINDER SAHU Address: [address] Address: home [address] [place] [address] [place] Name: JOSE SAHU Address: [id number] Address: home [address] [place] [address] [place] Name: DENNISE MCCLAIN Address: [place] [address]
--- OUTSIDE RECORDS SUMMARY | 2023-11-14 12:07 | XMS_ITS | Continuity of Care Document ---
Author Organization [facility] ter Address [address] [place] [id number] Care Team Providers Care Credit Processor Name Role Phone Jarrod Sherman MD Primary Care Physician Encounter [facility] [place] Date(s): 10/24/23 - 10/25/[address] [id number] Discharge Disposition: A-Transfer VNA/Home Health Attending Physician: [...] opioid drug. Start Date: 07/24/22 Status: Ordered Acetaminophen Tablet 650 mg, Tablet, By Mouth, 10/25/23 9:00:00 EDT Start Date: 10/25/23 Stop Date: 10/25/23 Status: Completed Advair HFA 115 mcg / 21 mcg [...] 07/24/22 8:20:00 EST, Route to Pharmacy Electronically, [facility], Partial fill upon patient [...] oral capsule 400 mg, Capsule, By Mouth, 10/25/23 9:00:00 EDT Start Date: 10/25/23 Stop Date: 10/25/23 Status: Completed Labetalol 100 mg, Tablet, By Mouth, 10/25/23 9:00:00 EDT Start Date: 10/25/23 Stop Date: 10/25/23 Status: Completed labetalol 100 mg oral tablet [...] 11/01/23 9:47:00 EDT, 10/25/23 9:47:00 EDT, Tablet, [facility] 3, Partial fill upon patient request if the prescription is for a schedule II opi... Start Date: 10/25/23 Stop Date: 11/01/23 Status: Ordered MorPHINE Immediate Release Tablet 15 mg, Tablet, By Mouth, Every 4 hours, PRN for Pain , Moderate, Routine, 10/25/23 7:59:00 EDT Start Date: 10/25/23 Stop Date: 10/25/23 Status: Discontinued pantoprazole 40 mg oral delayed release tablet [...] Exam Date Time Procedure Performing Provider Status 10/24/23 2:57 PM C-Arm < 1 Hour Eric Yang (Verified) Notes: (C-Arm < 1 Hour) Reason For Exam: lt total hip arthroscopy RESULT: C-Arm < 1 Hour Pelvis 1 or 2 Views, C-Arm < 1 Hour INDICATION: Reason: OA, Left Total Anterior Hip Arthroplasty; Special Instructions: IN [facility] OR COMPARISONS: None TECHNIQUE: Fluoroscopy support was provided. There was no radiologist in attendance. FLUOROSCOPY TIME: 12.9 seconds EXPOSURE: .9580 Gycm2 (Dose Area Product) TECHNOLOGIST TIME: 30 minutes FINDINGS: Intraoperative images obtained during right hip arthroplasty. No evidence of hardware complication. IMPRESSION: See above. WSN: [id number] Ordering Physician: Jayson Johnson Dictated By: Grupo Garcia MD Dictated Date/Time: 10/24/23 4:58 pm Reviewed By: Grupo Garcia MD Signed By: Grupo Garcia MD Signed Date/Time: 10/24/23 4:58 pm Transcribed By: MARLA Transcribed Date/Time: 10/24/23 4:57 pm * Exam Date Time Procedure Performing Provider Status 10/24/23 2:07 PM Pelvis 1 or 2 Views Susana Barboza (Verified) Notes: (Pelvis 1 or 2 Views) Reason For Exam: OA, Left Total Anterior Hip Arthroplasty RESULT: Pelvis 1 or 2 Views Pelvis 1 or 2 Views, C-Arm < 1 Hour INDICATION: Reason: OA, Left Total Anterior Hip Arthroplasty; Special Instructions: IN [facility] OR COMPARISONS: None TECHNIQUE: Fluoroscopy support was provided. There was no radiologist in attendance. FLUOROSCOPY TIME: 12.9 seconds EXPOSURE: .9580 Gycm2 (Dose Area Product) TECHNOLOGIST TIME: 30 minutes FINDINGS: Intraoperative images obtained during right hip arthroplasty. No evidence of hardware complication. IMPRESSION: See above. WSN: [id number] Ordering Physician: Jayson Johnson Dictated By: Grupo Garcia MD Dictated Date/Time: 10/24/23 4:58 pm Reviewed By: Grupo Garcia MD Signed By: Grupo Garcia MD Signed Date/Time: 10/24/23 4:58 pm Transcribed By: MARLA Transcribed Date/Time: 10/24/23 4:57 pm * Exam Date Time Procedure Performing Provider Status 10/24/23 4:17 PM Pelvis 1 or 2 Views Magda Turner (Verified) Notes: (Pelvis 1 or 2 Views) Reason For Exam: Postop Prosthesis RESULT: Pelvis 1 or 2 Views Pelvis 1 or 2 Views Reason: Postop Prosthesis; Clinical Question(s): Status of Hip Prosthesis; Special Instructions: LEFT Hip - To be done in PACU COMPARISON: 10/24/2023 at 1400 hours. FINDINGS: A single portable postop frontal view of the lower pelvis shows evidence of a cementless left totalhip arthroplasty appearing with the acetabular and femoral components in excellent position. Minimal expected postoperative changes are noted laterally. Please refer to the operative report for more details. Prior cementless total right hip arthroplasty in place. IMPRESSION: Satisfactory postoperative appearance of a cementless total left hip arthroplasty appearing. WSN: [id number] Ordering Physician: Krissy Washington Dictated By: Jevon Cormier MD, V Dictated Date/Time: 10/24/23 4:22 pm Reviewed By: Jevon Cormier MD, V Signed By: Jevon Cormier MD, V Signed Date/Time: 10/24/23 4:22 pm Transcribed By: MARLA Transcribed Date/Time: 10/24/23 4:20 pm Vital Signs Most recent to oldest [Reference Range]: 1 2 3 Height 154 cm (10/25/23 7:08 AM) 154 cm (10/25/23 3:52 AM) 154 cm (10/24/23 11:25 PM) Weight 95.9 kg (10/24/23 10:07 AM) Oxygen Saturation [94-100 %] 100 % (10/25/23 7:08 AM) 100 % (10/25/23 3:52 AM) 100 % (10/24/23 11:25 PM) Pulse Rate [55-90 bpm] 67 bpm (10/25/23 8:33 AM) 67 bpm (10/25/23 7:08 AM) 79 bpm (10/25/23 3:52 AM) Body Mass Index [18.5-24.99 kg/m2] 40.44 kg/m2 *>HHI* (10/24/23 10:07 AM) Blood Pressure [90-138/55-84 mm Hg] 146/82mm Hg *H* (10/25/23 8:33 AM) 146/82mm Hg *H* (10/25/23 7:08 AM) 125/66mm Hg (10/25/23 3:52 AM) Respiratory Rate [16-30 br/min] 18 br/min (10/25/23 10:57 AM) 17 br/min (10/25/23 9:33 AM) 17 br/min (10/25/23 9:31 AM) Temperature [96.8-100.4 DegF] 98.1 DegF (10/25/23 7:08 AM) 98.5 DegF (10/25/23 3:52 AM) 97.5 DegF (10/24/23 11:25 PM) Liters per Minute 6 L/min (10/24/23 3:15 PM) Mode of Delivery (Oxygen) Room air (10/25/23 7:08 AM) Room air (10/25/23 3:52 AM) Room air (10/24/23 11:25 PM) Blood pressure sites Arm, right (10/25/23 7:08 AM) Arm, right (10/25/23 3:52 AM) Arm, right (10/24/23 11:25 PM) Temperature Route Oral (10/25/23 7:08 AM) Oral (10/25/23 3:52 AM) Oral (10/24/23 11:25 PM) Dry Weight 95.9 kg (10/24/23 10:07 AM) Weight Obtained Via Standing scale (10/24/23 10:07 AM) Dry Weight Obtained Via Standing scale (10/24/23 10:07 AM) Social History Social History Type Response Smoking Status Former smoker, quit more than 30 days ago entered on: 10/07/23 Sex History and physical note * Event Display: History and Physical Hospital Authored Date: [id number] * Shanel MORTENSEN, Virgilio R: MODIFY Event Display: History and Physical Hospital Authored Date: [id number] SURGICAL HISTORY AND PHYSICAL DATE: 10/16/2023 PRIMARY DIAGNOSIS: Osteoarthritis of the left hip. REASON FOR ADMISSION: The patient is being admitted for a left total hip arthroplasty via anterior approach by Dr. Johnson on 10/16/2023. HISTORY OF PRESENT ILLNESS: Mrs. Sterling is a 32-year-old pleasant female, who presents today for evaluation of her left hip prior to her left total hip arthroplasty. This is a surgical history and physical appointment. She has a known longstanding history of left hip osteoarthritis and has undergone a lengthy course of conservative management with generalized failure of nonsurgical options. Her pain is severe and worsens with activity, it has gotten to the point where it is significantly interfering with her ability to perform activities of daily living as well as daily social tasks. She is now interested in pursuing an anterior left total hip arthroplasty for definitive relief for pain from osteoarthritis. She is status post a right total hip arthroplasty with Dr. Johnson in 07/2023. Her hospital stay was relatively uneventful medically. She did struggle with pain overnight. She did require Toradol and baclofen to be added to her regimen. There was an attempt to increase her oxycodone to every 3 hours, however, due to insurance restrictions, the patient received every 4 hours at the time of discharge. PAST MEDICAL HISTORY: 1. Left hip osteoarthritis. 2. Anemia. 3. Anxiety. 4. Bipolar. 5. Carpal tunnel syndrome. 6. Hypertension. 7. Depression. 8. Gestational diabetes. 9. Fibromyalgia. 10. GERD. 11. Hemorrhoids. 12. History of COVID 19. 13. Preeclampsia. 14. Marijuana usage. 15. Migraines. 16. Obesity with a BMI of 42.5. 17. Panic attacks. 18. PCOS. 19. hemorrhage. 20. History of wound cellulitis after surgery. 21. Constipation. 22. Hypertension. 23. History of UTIs. 24. History of chest pain April of 2022, where she had a full workup by cardiology and was negative. 25. COPD, where she was followed by pulmonology. She did have a recent episode of bronchitis, whereshe was treated with azithromycin in August. She does not qualify for oxygen at this time. PAST SURGICAL HISTORY: 1. Right anterior total hip arthroplasty with Dr. Johnson. 2. Adenoidectomy. 3. EGD. 4. [place] teeth removal. 5. Renal cyst with biopsy. 6. Abdominal wall cystectomy MEDICATIONS: 1. Symbicort inhaler daily. 2. Gabapentin 400 mg 3 times a day. 3. Ibuprofen as needed, which she has been holding in preparation for surgery. 4. Labetalol 200 mg b.i.d. 5. Sertraline 100 mg daily in the morning. 6. Linzess for constipation, which she was instructed to bring this with her to the hospital. 7. Lidocaine patches, which she states that she has not been taking for a little while to her not having a supply. ALLERGIES: She is allergic to LATEX, which causes a rash. She is allergic to PROVERA, which causes bleeding. She is allergic to AMOXICILLIN, which causes rash and vomiting. She is allergic to TOPIRAMATE, which causes swelling of the throat and she is allergic to IRON INFUSION, which causes swellingto her throat. SOCIAL HISTORY: She denies tobacco use. She does have a history of marijuana use. She states that as of late, she has been having increased amounts of alcohol daily. She denies a history of withdrawal symptoms. She was unable to state how many drinks she has a day, but it is less than 5. PHYSICIANS: The patient's primary care physician is Dr. Jarrod Sherman REVIEW OF SYSTEMS: The patient does state that she has some right lower tooth pain with plan for extraction on 10/10/2023. Otherwise, review of systems negative unless mentioned in the HPI. PHYSICAL EXAMINATION: VITAL SIGNS: Height is 5 foot 0 inches, weight is 215 pounds. Temperature is 96.9, blood pressure is 130/87, pulse is 88 beats per minute. GENERAL: Alert and oriented, normal insight, affect, and grooming. SKIN: Intact without rash or lesions. HEENT: Normocephalic. Conjunctivae pink. Sclerae are anicteric. NECK: Supple. Trachea midline. No lymphadenopathy. LUNGS: Clear to auscultation bilaterally. Breathing is unlabored. HEART: Regular rate and rhythm, normal S1, S2. No murmurs, rubs or gallops appreciated. ABDOMEN: Soft, nontender with normal bowel sounds. EXTREMITIES: Orthopedic examination left hip without erythema or abrasion noted. There is no effusion. Skin temperature is normal. There is a neutral alignment. She is not experiencing tenderness of the hip to palpation. There is a positive Stinchfield test. Range of motion extension is 0 degrees. Flexion is 100-110 degrees. Internal rotation flexion is 5-15 degrees, external rotation, flexion is30-35 degrees, abduction is 30-40 degrees, adduction is 10-15 degrees. She ambulates with an antalgic gait on the left leg. There is 2+ dorsalis pedis pulses. There is normal sensation and pulses distally. There is 5/5 strength with ankle dorsiflexion and ankle plantar flexion. PREOPERATIVE DIAGNOSTIC TESTING: Orthopedic x-rays demonstrate severe DJD of the left hip, changes are consistent with osteoarthritis including joint space narrowing, subchondral sclerosis and osteophyte formation, arthrosis primarily affecting the superior compartment. EKG from June showed normal sinus rhythm with a heart rate of 60. LABORATORY DATA: CBC from 09/25/2023 showed a hematocrit of 31.6 and a hemoglobin of 9.1 and a platelet count of 316. She will have coags and chemistries along with a hemoglobin A1c drawn today at the medicine preop appointment. ASSESSMENT AND PLAN: The patient has advanced osteoarthritis of the left hip and is now scheduled for a left total hip arthroplasty by Dr. Johnson on 10/16/2023. She will be seen by the medicine preoperative clinic today for preoperative risk assessment. This note will be amended after reviewing their note. She will receive IV TXA and will be placed on aspirin postoperatively for DVT prophylaxis. We will monitor STEPHWA as she reports that she has increased her alcohol use as of late. We will reach out to her dentist as she is having tooth extraction on 10/10/2023 for dental clearance. I did discuss that typically there are no dental extractions for at least 2 weeks prior to surgery. Discharge plan to home with services. The patient would like to stay overnight after surgery due to issues with pain control with her last hip arthroplasty. Her questions have been answered and she acknowledges understanding. The patient wishes to proceed with an anterior left total hip arthroplasty with Dr. Johnson on 10/16/2023. CONTACTS: Her mom, Dennise at [phone]. Prescription given at the time of history and physical include aspirin, Colace, Celebrex, pantoprazole, acetaminophen and Zofran. She will require prescription for pain medication at the time of discharge. Dictated by: Virgilio Ugarte N.P. Signing Clinician: Jayson Johnson M.D. Dictated: 10/07/2023 09:39:27 Transcribed: 05:08:27 AM Transcribed by: GEOVANNI DocID: [id number] PRELIMINARY REPORT UNLESS MANUALLY/ELECTRONICALLY SIGNED * Virgilio Ugarte NP: PERFORM Event Display: History and Physical Hospital Authored Date: [id number] CBC, coags and chemistry reviewed and are satisfactory for surgery. EKG showed NSR with HR 60. She was seen by the medicine group for preop risk stratification and she was deemed to be a low cardiovascular risk. She does have asthma so medicine recommended NEB treatments as needed. She does have a hx of JOSE and will receive IV iron 10/10/23. She is at risk for adrenal insufficiency due to steroid exposure. Medicine recommended that she be evaluated by anesthesia for possible stress dose steroids. Per medicine note, she had cardiac testing including a nuclear stress test without evidence of ischemia. We are awaiting dental clearance. * Sapphire Sawyer NP: PERFORM Event Display: History and Physical Hospital Authored Date: [id number] The patient was seen by her training facilitator. Notes she reports good control of respiratory symptoms with Symbicort and using albuterol p.r.n. She had an exacerbation over 4 weeks ago which was treated with a Z-Ralph with complete resolution of symptoms. 6M WT was performed at the last visit and the patient did not require supplemental oxygen. PFT from 01/06 revealed an FEV1 of 71% and D LOC O normal at this time, patient is a low risk for perioperative pulmonary complications for proposed left total hip replacement surgery. We will consider bronchodilators in the perioperative period questions answered and patient is in agreement of plan. We will follow up with her again in November Cardiology * Event Display: Cardiac Rhythm Strips Authored Date: * Event Display: Cardiac Rhythm Strips Authored Date: Hospital Progress note * Sia Argueta RN: PERFORM, SIGN, VERIFY, SIGN, MODIFY Event Display: Progress Note Hospital Authored Date: Patient: LANIE STERLING Age: 32 years Sex: Female : 1990 Associated Diagnoses: None Author: Sia Argueta RN Findings Problem Related to Alteration in Comfort : Alteration in Comfort/new 10/25/2023 6:00 EDT Alteration in Comfort Related to Surgery Goals & Outcomes: Comfort Pt will report [...] accordingly Goals/Interventions, Comfort Yes Comfort, Problem Start 10/25/2023 3:12 Reviewed plan with, Comfort Patient Patient Progression, Comfort Pt progressing according to plan Comfort, Problem Ongoing Yes . Alteration in Musculoskeletal : Alteration in Musculoskeletal Func/new 10/25/2023 6:00 EDT Alteration in Musculoskeletal Related to Mobility, Orthopedic Procedure, Total joint replacement, Other: L aTHR 10/23 Brothers Goals & Outcomes, Musculoskeletal Affected extremity will maintain color/motion/sensation, Pt able to perform ADL's to best of ability, Pt will ambulate safely with assistive device, Pt will be free from complications of immobility, Pt will demonstrate ability to participate in ADL's Interventions, Musculoskeletal Monitor patients ambulation status, monitor Color/Motion/Sensation, Assist with repositioning, Encourage deep breathing & coughing exercises, Notify MD immediately if tissue perfusion deteriorates, Obtain assistive devices as needed, Teach & Encourage use of Incentive spirometer, Teach Pt/caregiver on ADL's & adaptive equipment, Teach Pt/caregiver on exercises, Teach pt/caregiver on use of pain scale, Teach Pt/caregiver complications of immobility, Teach Pt/caregiver techniques to increase mobility, Teach Pt/caregiver on safety precautions BH Goals/Interventions, Musculoskeletal Yes Musculoskeletal, Problem Start 10/24/2023 18:00 Reviewed Plan with, Musculoskeletal Patient Patient Progression, Musculoskeletal Pt progressing according to plan . Nursing Data Vital Signs : VITAL SIGNS SECTION 10/25/2023 7:08 EDT Temperature 98.1 DegF Temperature Route Oral Pulse Rate 67 bpm Respiratory Rate 20 br/min Systolic Blood Pressure 146 mm Hg H Diastolic Blood Pressure 82 mm Hg Blood pressure sites Arm, right Mean Arterial Pressure 103 mm Hg Pulse Pressure 64 mm Hg Oxygen Saturation 100 % Mode of Delivery (Oxygen) Room air . Evaluation P: Alteration in Musculoskeletal & Comfort I: Interventions per plan E: 32 year old female, s/p L aTHR on 10/[address] Johnson. Pt is A&Ox4. Lungs clear, nonlabored breathing, denies SOB. Incentive spirometer is at bedside, encouraged patient to use 10x an hour with proper demonstration. Patient denies chest pain, numbness, tingling, and dizziness. +PP, +CMS, +D/P flexion. ASA 325mg implemented for DVT prophylaxis. C-boots placed bilaterally. Encouraged patient to perform ankle pumps 20x an hour and gluteal squeezes frequently. < 3 second cap refill on operative side extremity. Aquacel dressing, clean, dry and intact. No shadowing present. Patient ambulating OOB 1A x walker, working with PT/OT. Icing as needed for comfort. Patient is c/o 6/10 pain, pain meds changed to 15-30mg of Morphine PO q4h as ordered in [facility]. Tolerating a regular diet. Patient was nauseous this AM. Scope patch applied behind R ear. Abdomen is soft and round. LBM 10/23. Bowel regimen implemented. Voiding via bathroom - CYU. +BS x4. Patient progressing with plan. Safety checks done. Bed in lowest/locked position, call hernández/belongings within reach, patient resting comfortably. Patient needs met at this time.. Discharge Information Case Management Discharge Plan : Case Management Discharge Plan Data 10/24/2023 11:19 EDT Discharge Level of Care at Discharge Homehealth/VNA Discharge VNA/Hospice/Home Care [facility] [phone] Mode of Transportation Arranged Other Agency [employer] [facility]1 Intake Service Categories #1 Occupational Therapy, Physical Therapy Service Comments #1 You will receive a call to arrange a home visit. Please call the agency with any questions. * Sia Argueta RN: PERFORM Event Display: Progress Note Hospital Authored Date: Patient cleared for discharge. Discharge instructions reviewed and acknowledged by pt. IV removed with tip intact. Pts questions answered and acknowledges understanding to instructions. Valuables/belongings returned to patient. Pt leaving with hospital personnel and all belongings. * John Gtz RN: PERFORM, SIGN, VERIFY Event Display: Progress Note Hospital Authored Date: Patient: LANIE STERLING Age: 32 years Sex: Female : 1990 Associated Diagnoses: None Author: John Gtz RN Findings Problem Related to Alteration in Comfort : Alteration in Comfort/new 10/25/2023 3:00 EDT Alteration in Comfort Related to Surgery Goals & Outcomes: Comfort Pt will report acceptable level of comfort & pain control, Pt will state importance of adhering to pain strategy regime, Pt will demonstrate necessary skills to manage pain, Non-verbal indicators will indicate comfort/pain control Interventions Implemented: Comfort Assess pain using appropriate pain scale/tools, Assess aggravating factors & prevent them accordingly, Assess alleviating factors & promote them accordingly BH Goals/Interventions, Comfort Yes Comfort, Problem Start 10/25/2023 3:12 Reviewed plan with, Comfort Patient Patient Progression, Comfort Plan Initiation Comfort, Problem Ongoing Yes . Alteration in Musculoskeletal : Alteration in Musculoskeletal Func/new 10/25/2023 3:00 EDT Alteration in Musculoskeletal Related to Mobility, Orthopedic Procedure, Total joint replacement, Other: L hip Dr Johnson Goals & Outcomes, Musculoskeletal Affected extremity will maintain color/motion/sensation, Pt able to perform ADL's to best of ability, Pt will ambulate safely with assistive device, Pt will be free from complications of immobility, Pt will demonstrate ability to participate in ADL's Interventions, Musculoskeletal Monitor patients ambulation status, monitor Color/Motion/Sensation, Encourage deep breathing & coughing exercises, Teach & Encourage use of Incentive spirometer, Teach pt/caregiver on use of pain scale, Teach Pt/caregiver on safety precautions Goals/Interventions, Musculoskeletal Yes Musculoskeletal, Problem Start 10/24/2023 18:00 Reviewed Plan with, Musculoskeletal Patient Patient Progression, Musculoskeletal Pt progressing according to plan . Narrative/Incidental P: Alteration in comfort/ Alteration in musculoskeletal I: as listed above interventions E: Post-op day 1 left anterior THR. Alert and oriented x4. No sob, using incentive spirometer as directed. No nausea or vomiting. Right anterior hip aquacel dressing CDI, +CMS, with strong D/P flexion. Ambulating with the use of walker with 1 assist, gait steady. Taking scheduled acetaminophen and prn oxycodone 10mg for pain with some relief. Voiding adequate amount of clear yellow urine, +menses. Wearing compression boots and will start on aspirin POD1 for DVT prophylaxis. Resting quietly at this time. Call light within reached.. * Licha MYERS, Denise: PERFORM, SIGN, VERIFY Event Display: Progress Note Hospital Authored Date: Patient: LANIE STERLING Age: 32 years Sex: Female : 1990 Associated Diagnoses: None Author: Denise Hurt RN Findings Problem Related to Alteration in Musculoskeletal : Alteration in Musculoskeletal Func/new 10/24/2023 17:00 EDT Alteration in Musculoskeletal Related to Orthopedic Procedure, Total joint replacement, Other: L hip Dr Johnson Goals & Outcomes, Musculoskeletal Affected extremity will maintain color/motion/sensation, Pt able to perform ADL's to best of ability, Pt will ambulate safely with assistive device, Pt will be free from complications of immobility, Pt will demonstrate ability to participate in ADL's Interventions, Musculoskeletal Monitor patients ambulation status, monitor Color/Motion/Sensation, Assist with repositioning, Notify MD immediately if tissue perfusion deteriorates, Obtain assistive devices as needed, Teach & Encourage use of Incentive spirometer, Teach Pt/caregiver on exercises, Teach pt/caregiver on use of pain scale Goals/Interventions, Musculoskeletal Yes Musculoskeletal, Problem Start 10/24/2023 18:00 Reviewed Plan with, Musculoskeletal Patient Patient Progression, Musculoskeletal Pt progressing according to plan . Narrative/Incidental A+Ox4. Pleasant and cooperative with care. Ar[facility] from [facility]. Ashwini hip Dr Johnson. +wiggle, +Sensation, +D/P pulses/flex. aquacle C/D/I. Leg is elevated and ice is applied. Fall risk bracelet and socks in place. LS clear - denies SOB, CP, N/V. +BS, BM 10/23, reg diet in place. CIWA in place scored 0 this evening. Pt is not complaining of pain at this time. Pt is resting in bed with call belland tray table within reach. No further issues at this time. . Discharge Information Case Management Discharge Plan : Case Management Discharge Plan Data 10/24/2023 11:19 EDT Discharge Level of Care at Discharge Homehealth/VNA Discharge VNA/Hospice/Home Care [facility] [phone] Mode of Transportation Arranged Other Agency [employer] Helper #1 Intake Service Categories #1 Occupational Therapy, Physical Therapy Service Comments #1 You will receive a call to arrange a home visit. Please call the agency with any questions. Note * Sia Argueta RN: PERFORM Event Display: Discharge/Transfer Note Hospital Authored Date: Nursing Discharge Note Entered On: 10/25/2023 10:38 EDT Performed On: 10/25/2023 10:38 EDT by Sia Argueta RN Nursing Discharge Note 2 Discharge Time : 10/25/2023 11:20 EDT Sia Argueta RN - 10/25/2023 11:15 EDT Discharge Level of Care at Discharge : Homehealth/VNA Discharge VNA/Hospice/Home Care(v001) : [facility] [phone] Patient Left Unit Via : Wheelchair Patient Accompanied Off Unit with : Responsible adult DC Instructions Provided & Signed by Pt : Yes Patient Understands D/C Instructions : Yes Patient Instructions Discharge Signed : Yes Did Pt have Specialty Bed or Wound Vac : No Sia Argueta RN - 10/25/2023 10:38 EDT * Panda Madsen NP: PERFORM, SIGN, VERIFY, MODIFY, SIGN, MODIFY, SIGN Event Display: Discharge/Transfer Note Hospital Authored Date: Patient: LANIE STERLING Age: 32 years Sex: Female : 1990 Associated Diagnoses: None Author: Cale MORTENSEN, Zulfiya Discharge Summary Admission Date: 10/24/2023 Discharge Date: 10/25/2023 Admitting Diagnosis: Left hip osteoarthritis Discharge Diagnosis: Left hip osteoarthritis Final Diagnosis: Left hip osteoarthritis Procedure: Left total hip arthroplasty Surgeon: Dr. Johnson Past Medical History: 1. Left hip osteoarthritis. 2. Anemia. 3. Anxiety. 4. Bipolar. 5. Carpal tunnel syndrome. 6. Hypertension. 7. Depression. 8. Gestational diabetes. 9. Fibromyalgia. 10. GERD. 11. Hemorrhoids. 12. History of COVID 19. 13. Preeclampsia. 14. Marijuana usage. 15. Migraines. 16. Obesity with a BMI of 42.5. 17. Panic attacks. 18. PCOS. 19. hemorrhage. 20. History of wound cellulitis after surgery. 21. Constipation. 22. Hypertension. 23. History of UTIs. 24. History of chest pain April of 2022, where she had a full workup by cardiology and was negative. 25. COPD, where she was followed by pulmonology. She did have a recent episode of bronchitis, whereshe was treated with azithromycin in August. She does not qualify for oxygen at this time. Orthopedics: The patient is status post left total hip arthroplasty. It is anticipated that she will be discharged home today pending PT, OT clearance. The patient is doing well from a surgical standpoint. Her incision is healing well. Neurovascular status is intact. Calves are supple and nontender. The patient is weight bearing as tolerated. Making good progress with Physical Therapy and Occupational therapy. Supervision with ambulation walking 30 feet, ambulating with a walker. Pain is well controlled on her current regimen, Acetaminophen 650 mg every 6 hours, Celebrex and Morphine 15-30 mgevery 4 hours as needed. Patient is tolerating this well. She will be sent home with a prescriptionfor this medication. Prescription: Morphine 15 mg tablet, 1 tablets every 4 hours as needed for severe pain, 7 days # 42 per insurance. Will submit prior auth Hospital course: Patient struggled with pain postoperatively while on Oxycodone. Doing better on Morphine. Also received a dose of Toradol IVP x 1. She had some post-op nausea for which she received a Scopolamine patch. Patient is voiding spontaneously. + bowel sounds. all morning bowel medications will be given inanticipation of a BM prior to discharge. No other issues. No calf tenderness. Current Medication List: Acetaminophen (acetaminophen 325 mg oral tablet) 650 Milligram By Mouth Every 6 hours May take OTC not to exceed 3000 mg/day Albuterol (Albuterol 0.083% inhalation jenny) 2.5 Milligram BAND Nebulizer Every 4 hours as needed Wheezing/Shortness of Breath Aspirin (aspirin 325 mg oral delayed release tablet) 325 Milligram By Mouth 2 times a day Baclofen (baclofen 10 mg oral tablet) 10 Milligram 1 tablet By Mouth 3 times a day for 14 Days Celecoxib (celecoxib 200 mg oral capsule) 200 Milligram By Mouth Daily dexlansoprazole (Dexilant 60 mg oral delayed release capsule) 1 capsule 60 Milligram By Mouth Daily Docusate (Colace Capsule) 100 Milligram 1 capsule By Mouth 2 times a day Gabapentin 400 Milligram By Mouth 3 times a day Labetalol (labetalol 100 mg oral tablet) 2 tab(s) 200 Milligram By Mouth 2 times a day linaclotide (Linzess) 145 Microgram By Mouth Daily Morphine (morphine 15 mg oral tablet, immediate release) See Instructions as needed Pain , Severe 1tablets By Mouth Every 4 hours Pantoprazole (pantoprazole 40 mg oral delayed release tablet) 40 Milligram By Mouth Daily Polyethylene Glycol 3350 (MiraLax Powder) 1 pack/packet 17 gram By Mouth Daily as needed Constipation Senna (senna 187 mg oral tablet) 1 tab(s) 8.6 Milligram By Mouth Daily at bedtime as needed as needed for constipation Sertraline (sertraline 50 mg oral tablet) 200 Milligram By Mouth Daily in AM Allergies (Active and Proposed Allergies Only) Feraheme (Severity: Unknown severity, Onset: Unknown) Comments: Chest pressure, lightheaded, scratchy throat topiramate (Severity: Unknown severity, Onset: Unknown) Reactions: Swelling of throat Provera (Severity: Unknown severity, Onset: Unknown) Reactions: Bleeding Latex (Severity: Unknown severity, Onset: Unknown) Reactions: Skin rash amoxicillin (Severity: Unknown severity, Onset: Unknown) Reactions: Rash Current Labs: BLOOD BANK Blood Type A Positive () 10/24/2023 10:59 Antibody Screen Negative () 10/24/2023 10:59 RBC Unit ID [id number] () 10/24/2023 13:08 RBC Available XM () 10/24/2023 13:08 BLOOD COUNT & DIFF WBC 17.1 k/mm3 (High) 10/25/2023 00:24 RBC 3.46 m/mm3 (Low) 10/25/2023 00:24 Hgb 9.3 Gm/dL (Low) 10/25/2023 00:24 Hct 29.7 % (Low) 10/25/2023 00:24 MCV 85.8 femtoliters () 10/25/2023 00:24 MCH 26.9 pg (Low) 10/25/2023 00:24 MCHC 31.3 g/dL (Low) 10/25/2023 00:24 Platelet Count 292 k/mm3 () 10/25/2023 00:24 RDW-SD 53.8 femtoliters (High) 10/25/2023 00:24 MPV 11.1 femtoliters () 10/25/2023 00:24 Nucleated RBC (Automated) 0.0 #/100 WBC'S () 10/25/2023 00:24 Abs. NRBC 0.0 k/mm3 () 10/25/2023 00:24 CHEM GENERAL Sodium 141 mmol/L () 10/25/2023 00:24 Potassium 4.7 mmol/L () 10/25/2023 00:24 Chloride 106 mmol/L () 10/25/2023 00:24 Bicarbonate Level 22 mmol/L () 10/25/2023 00:24 Anion Gap 13 () 10/25/2023 00:24 BUN 10 mg/dL () 10/25/2023 00:24 Creatinine-Blood 0.62 mg/dL () 10/25/2023 00:24 Estimated GFR Creatinine 121 ML/MIN/1.73 M2 () 10/25/2023 00:24 URINE OTHER Est Creatinine Clearance 95.65 mL/min () 10/25/2023 02:09 DVT prophylaxis ASA EC 325 mg po bid x 30 days Disposition: Anticipates being discharged today to home. Follow up at [facility] in 2 weeks, patient is aware of this. The patient has an Aquacel dressing in place. She may shower with it and the dressing can be discontinued on POD 14. Discharge Plan Discharge Disposition Discharge: home with VNA. Home Health Face to Face I certify that this patient is under my care and that I or an allowed non- physician practitioner working with me, had a [id number] encounter with the patient on this date: 10/25/2023. The encounter with the patient was in whole, or in part, for the following medical condition, whichis the primary reason for home health care: Osteoarthritis of left hip. Physical Therapy: Functional mobility training, Home exercise program to strengthen, increase ROM, Falls prevention training. Occupational Therapy: ADL Management, Fall prevention training, Energy conservation. Homebound due to: Inability to leave home without assistance/supervision, Inability to ambulate without assistance, Pain, decreased strength, and endurance, Unsteady gait, Impaired transfers, Inability to negotiate stairs. Physician Signature: Alex GAMBOA, Jayson Nova * Event Display: Discharge/Transfer Note Hospital Authored Date: * Courtney Lopez RN: PERFORM Event Display: Patient Education/Instruction Authored Date: Inpatient Adult Discharge Instructions. [place] [id number] Name: LANIE STERLING : 1990?? Visit: 10/24/2023 09:58?? Current Date: 10/25/2023 10:01 ?? Account: [id number]?? Inpatient Adult Discharge Instructions We would like [...] and their families. Surveys are administered by [employer] ?? If further treatment with your primary care physician or another doctor is recommended, it is important for you to keep the appointment. Call your primary care physician or return to the Emergency Department immediately if your condition worsens, fails to improve, or new symptoms develop. If you need to find a doctor, you can call [facility] [employer] [facility] for a referral at [phone] or toll free at [phone] or log in to [email or web address].. ?? [facility], in keeping with [facility] guidance, no longer requires face masks [...] a health care patel of your choosing. [employer] is a website that allows you to securely view your medical information including your hospital discharge summary, office visit summaries, medications and follow-up visits. You can also request appointments, renew medications, and request access to your medical information using a health care patel of your choosing, or just ask a question. You can enroll at [email or web address] or register during your next office visit. You have been discharged from [facility], Patient Care Unit: SW7??. If you have any questions regarding these instructions, including results of studies pending, afteryou leave, please call us and we will be happy to assist you 07/01. [facility] Your Care Team Attending Physician Jayson Johnson MD?? Consulting Providers Jayson Johnson MD?? Discharging Providers Panda Madsen NP Your Diagnosis Osteoarthritis of left hip Tests Performed Below is a partial list of the tests performed during your hospitalization. You may have had other tests and procedures not included in this list. Please discuss all test results with your provider. BUN CBC Creatinine Electrolytes Type and Screen XR C-Arm < 1 Hour XR Pelvis 1 or 2 Views BUN?? CBC?? Creatinine?? Electrolytes?? HCG Urine?? Pathology Tissue Request ()?? RBCs for Surgery?? Primary Care Provider Jarrod Sherman MD? Advance Directive Health Care Proxy on File Yes - Health Care Proxy Discharge Vitals Temperature: 98.1 DegF Height: 154 cm Pulse Rate: 67 bpm Weight: 95.9 kg Respiratory Rate: 17 br/min Body Mass Index:??40.44 kg/m2??Critical Systolic Blood Pressure:??146 mm Hg??High Body surface area: 2.03 Diastolic Blood Pressure: 82 mm Hg ?? Oxygen Saturation: 100 % ?? Studies Pending All studies ordered during this hospital stay have been completed unless listed below. Please discuss all pending results with your provider listed above in these instructions. ?? BUN?? CBC?? Creatinine?? Electrolytes?? HCG Urine?? Pathology Tissue Request ()?? RBCs for Surgery?? What to do next Instructions From Your Doctor ?? Orders?? Unit Discharge Criteria Met, ??10/25/23 9:25:00 EDT?? Prescriptions??, ??10/25/23 9:25:00 EDT?? You Need to Schedule the Following Appointments Follow Up with??[facility] When:??Within Within two weeks Discharge Medications LANIE STERLING :1990 Visit Date:10/24/2023 Medications: Please continue your medications until treatment is completed or stopped by your provider. Medications not listed below should be discontinued. Discuss any questions related to medications with your provider. What How Much When Instructions Next Dose New Aspirin (aspirin 325 mg oral delayed release tablet) 325 Milligram Oral Twice a day 8pm New Celecoxib (celecoxib 200 mg oral capsule) 200 Milligram Oral Daily 8am on 10/25 New Docusate (Colace Capsule) 100 Milligram Oral Twice a day 8pm New Morphine (morphine 15 mg oral tablet, immediate release) 15 Milligram Oral Every 4 hours as needed for Pain , Severe Duration: 7 Days Pickup at [facility] 3 New Pantoprazole (pantoprazole 40 mg oral delayed release tablet) 40 Milligram Oral Daily 8am on 10/25 New Polyethylene Glycol 3350 (MiraLax Powder) 17 gram Oral Daily as needed for Constipation As needed for constipation New Senna (senna 187 mg oral tablet) 1 tab(s) Oral Daily at Bedtime as needed for as needed for constipation As needed for constipation Changed Albuterol (Albuterol 0.083% inhalation jenny) 2.5 Milligram BAND Nebulizer Every 4 hours as needed for Wheezing/Shortness of Breath Changed Sertraline (sertraline 50 mg oral tablet) 200 Milligram Oral Daily in the morning 8am on 10/25 Unchanged Acetaminophen (acetaminophen 325 mg oral tablet) 650 Milligram Oral Every 6 hours May take OTC not to exceed 3000 mg/ day ?? 3pm Unchanged Baclofen (baclofen 10 mg oral tablet) 1 tab(s) Oral 3 times a day Duration: 14 Days As directed Unchanged dexlansoprazole (Dexilant 60 mg oral delayed release capsule) 1 capsule Oral Daily As directed Unchanged Fluticasone-Salmeterol (Advair HFA 115 mcg / 21 mcg) Unchanged Gabapentin 400 Milligram Oral 3 times a day 3pm Unchanged Labetalol (labetalol 100 mg oral tablet) 2 tab(s) Oral Twice a day 8pm Unchanged linaclotide (Linzess) 145 Microgram Oral Daily As directed Pharmacy Information [facility] 3: [address], [place] [id number] [phone] ?? What How Much When Comments Stop Taking Fluconazole (fluconazole 150 mg oral tablet) 1 tab(s) Oral Once epeat dose if still having symptoms in 72 hours ?? Stop Taking Ibuprofen 800 Milligram Oral Daily as needed for Pain , Moderate Prescription Given During Visit Morphine (morphine 15 mg oral tablet, immediate release) - 15 mg, By Mouth, Every 4 hours, # 42 tablet, 0 Refills, [facility], [address] [place] [id number]?? Laboratory Results Below is a partial list of the most recent Laboratory test results done prior to this discharge. You may have had other tests and procedures not included in this list. Please discuss all test resultswith your provider. Est Creatinine Clearance - 95.65 mL/min (10/25/2023) RBC Available - XM (10/24/2023) RBC Unit ID - [id number] (10/24/2023) BUN (10/25/2023) ???BUN - 10 mg/dL CBC (10/25/2023) ???WBC - 17.1 k/mm3???RBC - 3.46 m/mm3???Hgb - 9.3 Gm/dL???Hct - 29.7 %???MCV - 85.8 femtoliters???MCH - 26.9 pg???MCHC - 31.3 g/dL???Platelet Count - 292 k/mm3???RDW-SD - 53.8 femtoliters???MPV - 11.1 femtoliters???Nucleated RBC (Automated) - 0.0 #/100 WBC'S???Abs. NRBC - 0.0 k/mm3 Creatinine (10/25/2023) ???Creatinine-Blood - 0.62 mg/dL???Estimated GFR Creatinine - 121 ML/MIN/1.73 M2 Electrolytes (10/25/2023) ???Sodium - 141 mmol/L???Potassium - 4.7 mmol/L???Chloride - 106 mmol/L???Bicarbonate Level - 22 mmol/L???Anion Gap - 13 Type and Screen (10/24/2023) ???Blood Type - A Positive???Antibody Screen - Negative Allergies (NKA means No Known Allergies) Feraheme Latex??(Skin rash) Provera??(Bleeding) amoxicillin??(Rash) topiramate??(Swelling of throat) [...] Educational Leaflet Providered with your Discharge Instructions. [employer] Patient Education - Total Hip Replacement Discharge Instructions?? Valuables and Belongings I fully understand and agree that [facility] accepts no responsibility for all my [...] of Valuable and Belonging List: With patient Disposition of Belongings: Other: pacu closetcory sent home with boyfriend Date for Pt to Sign Valuables/Belongings: 10/24/23 10:13:00 ?? Valuables & Belongings ?? Clothes Electronic devices Jewelry Monetary Items Personal devices Miscellaneous Medications (Valuables) Valuables at Bedside Pants, Shirt, Shoes, Undergarments Cell phone, Other: shingle grader ? Inhaler Valuables Sent Home ? Purse ? Valuables Sent to Security ? Other Discharge Information ? Case Management Discharge Plan?? Discharge Plan?? Discharge Agency Information?? Discharge Level of Care at Discharge: Homehealth/VNA Agency [employer] Operator Helper #1: Intake Mode of Transportation Arranged: Other Service Categories #1: Occupational Therapy, Physical Therapy Discharge VNA/Hospice/Home Care: [facility] [phone] Service Comments #1: You will receive a call to arrange a home visit. ??Please call the agency withany questions. ?? Pulmonary Rehab Status?? Pulmonary Rehab Discharge Status?? Respiratory Rate: 17 br/min ? Common Emergency Awareness Tips IS [...] are strongly encouraged to quit. Please call [facility] [employer] Link at [phone] or [phone] ([phone]) or log in to [email or web address] for referrals to smoking cessation programs. ?? 371 Suicide & Crisis Lifeline is available 07/01 if you or someone you know needs to find a reason to keep living. By calling 672 you'll be connected to a skilled, trained counselor at a crisis center in your area. INPATIENT DISCHARGE INSTRUCTIONS SIGNATURE PAGE LANIE STERLING Location:[facility] Registration Date and Time:10/24/2023 09:58 EDT Primary Care Physician: Lane GAMBOA, Jarrod Oneil, Attending Physician: Alex GAMBOA, Jayson Faria, I LANIE STERLING, have received the above patient education materials/instructions and have verbalized understanding. If ambulance or transport services are being used I further acknowledge being given a choice of service. ?? If you need to contact me, please call me at this number: . Patient/Director Of Knowledge Management Name: Patient/Director Of Knowledge Management Signature: Relationship to Patient: Witness Name/Signature: Date: * Courtney Lopez RN: PERFORM Event Display: Patient Education Leaflets Authored Date: Total Hip Replacement Discharge Instructions ?? 6 Total Hip Replacement Discharge Instructions ? Please [...] hip. ?? When to call the Surgeon?CALL [phone] ? If you have shortness of breath [...] with urination or burning with urination. ?? Patient Care team information Care Team Personnel Name: Jarrod Sherman MD Position: Reference Physician Member Role: PCP Address: Address: [address] [place] [address] Drive [address] [place] [address] - Name: Denise Hurt RN Position: S RN Member Role: Primary Care Nurse Name: Katie Berger RN Position: [facility] RN Member Role: Primary Care Nurse Name: John Gtz RN Position: S RN Member Role: Primary Care Nurse Name: Loreto Powell RN Position: S RN Member Role: Primary Care Nurse Name: Jyoti Peraza RN Position: S RN Member Role: Primary Care Nurse Care Team Related Persons Name: LUIS ALBERTO MANJINDER Address: [address] Address: home [address] [place], [place] Name: SAHUJOSE Address: [address] Address: home [address] [place], [place] Name: DENNISE MCCLAIN Address: [place] [address]
--- OUTSIDE RECORDS SUMMARY | 2023-11-14 12:07 | XMS_ITS | Continuity of Care Document ---
Author Organization [facility] [employer] Address [address] [facility], [address] [place] [address]- Care Team Providers Care Fruit Grader Operator Name Role Phone Jarrod Sherman MD Primary Care Physician [phone] Encounter [facility] Date(s): 07/08/23 - 08/07/23 [facility] [employer] [facility] [address] [place] [address]- Allergies, Adverse Reactions, Alerts Substance Reaction Severity Status topiramate Swelling of throat Active Provera Bleeding Active Latex Skin rash Active Feraheme 1 Active amoxicillin Rash Active 1Chest pressure, lightheaded, scratchy throat Immunizations [...] 07/24/22 8:20:00 EST, Route to Pharmacy Electronically, [facility], Partial fill upon patient [...] Physician Member Role: PCP Address: Address: [address] [place] [address] Drive [address] [place], [place] - Name: Katie Berger RN Position: [facility] RN Member Role: Primary Care Nurse Name: Loreto Powell RN Position: S RN Member Role: Primary Care Nurse Name: Jyoti Peraza RN Position: S RN Member Role: Primary Care Nurse Care Team Related Persons Name: LUIS ALBERTO MANJINDER Address: [address] Address: home [address] [place], [place] Name: SAHUJOSE Address: [address] Address: home [address] [place], [place] Name: DENNISE MCCLAIN Address: [place] [address]
--- OUTSIDE RECORDS SUMMARY | 2023-11-14 12:08 | XMS_ITS | Continuity of Care Document ---
Author Organization [facility] [employer] Address [address] [facility], [address] [place] [address]- Care Team Providers Care Psychologist Research Assistant Name Role Phone Jarrod Sherman MD Primary Care Physician [phone] En[place] [facility] Date(s): 10/30/22 - [facility] [address], [address] [place], [place] [address] Allergies, Adverse Reactions, [...] 8:20:00 EST, Route to Pharmacy Electronically, [facility], Partial fill upon patient request if the prescription is for a schedule I... Start Date: 07/24/22 Stop Date: 08/07/22 Status: Ordered CeleBREX 200 mg oral capsule 1 capsule = 200 mg, By Mouth, 2 times a day, take while on menses do not mix with ibuprofen, # 60 capsule, 2 Refills, Maintenance, 07/03/22 14:00:00 EST, Capsule, [facility]/pharmacy #[id number], Partial fill upon patient [...] Reference Physician Member Role: PCP Address: Address: [address] [place] [address] Drive [address] [place] [address]- Name: Katie Berger RN Position: S RN Member Role: Primary Care Nurse Name: Loreto Powell RN Position: S RN Member Role: Primary Care Nurse Name: Jyoti Peraza RN Position: S RN Member Role: Primary Care Nurse Care Team Related Persons Name: MANJINDER SAHU Address: [address] Address: home [address] [place] [address] [place] Name: JOSE SAHU Address: [address] Address: home [address] [place] [address] [place] Name: DENNISE MCCLAIN Address: [place] [address]
--- OUTSIDE RECORDS SUMMARY | 2023-11-14 12:08 | XMS_ITS | Continuity of Care Document ---
Author Organization [facility] [employer] Address [address] [facility], [address] [place] [address]- Care Team Providers Care Protection Agent Name Role Phone Jarrod Sherman MD Primary Care Physician Encounter [facility] Date(s): 08/29/23 - [facility] [address], [address] [place] [address]- Allergies, Adverse Reactions, Alerts Substance Reaction Severity [...] 8:20:00 EST, Route to Pharmacy Electronically, [facility], Partial fill upon patient [...] Physician Member Role: PCP Address: Address: [address] [place] [address] Drive [address] [place], [place] - Name: Katie Berger RN Position: [facility] RN Member Role: Primary Care Nurse Name: Loreto Powell RN Position: S RN Member Role: Primary Care Nurse Name: Jyoti Peraza RN Position: S RN Member Role: Primary Care Nurse Care Team Related Persons Name: LUIS ALBERTO MANJINDER Address: [address] Address: home [address] [place], [place] Name: SAHUJOSE Address: [address] Address: [address] [place], [place] Name: DENNISE MCCLAIN Address: [place] [address]
--- OUTSIDE RECORDS SUMMARY | 2023-11-14 12:08 | XMS_ITS | Continuity of Care Document ---
Author Organization [facility] Address [address], [address] [place] [address]- Care Team Providers Care Interlocking Machine Operator Name Role Phone Jarrod Sherman MD Primary Care Physician [phone] Encounter [facility] Date(s): 07/16/23 - 08/15/23 [facility] [address], [address]th [place] [address]- Attending Physician: Kalen Yusuf Admitting Physician: AdmKalen [...] 07/24/22 8:20:00 EST, Route to Pharmacy Electronically, [facility], Partial fill upon patient request [...] Physician Member Role: PCP Address: Address: [address] [place] [address] Drive [address] [place] [address] - Name: Katie Berger RN Position: [facility] SN RN Member Role: Primary Care Nurse Name: Loreto Powell RN Position: S RN Member Role: Primary Care Nurse Name: Jyoti Peraza RN Position: S RN Member Role: Primary Care Nurse Care Team Related Persons Name: LUIS ALBERTOMANJINDER Address: Address: home [address] [place], [place] Name: JOSE SAHU Address: Address: home [address] [place], [place] Name: DENNISE MCCLAIN Address: [place] [address]
--- OUTSIDE RECORDS SUMMARY | 2023-11-14 12:08 | XMS_ITS | Continuity of Care Document ---
Author Organization [facility] [employer] Address [address], [address] [place] [address]- Care Team Providers Care Insurance Associate Name Role Phone Jarrod Sherman MD Primary Care Physician [phone] [place] [facility] Date(s): 07/05/23 - [facility]04[facility] [address], [address]th [place] [address]- Allergies, Adverse Reactions, Alerts Substance Reaction Severity Status amoxicillin Rash Active Latex Skin rash Active Feraheme 1 Active topiramate Swelling of throat Active Provera Bleeding Active 1Chest pressure, lightheaded, scratchy throat Immunizations [...] Reference Physician Member Role: PCP Address: Address: [address] [place] [address] Drive [address] [place], [place] - Name: Katie Berger RN Position: [facility] RN Member Role: Primary Care Nurse Name: Loreto Powell RN Position: S RN Member Role: Primary Care Nurse Name: Jyoti Peraza RN Position: S RN Member Role: Primary Care Nurse Care Team Related Persons Name: LUIS ALBERTO MANJINDER Address: [address] Address: home [address] [place], [place] Name: SAHUJOSE Address: [address] Address: [address] [place], [place] Name: DENNISE MCCLAIN Address: [place] [address]
--- OUTSIDE RECORDS SUMMARY | 2023-11-14 12:08 | XMS_ITS | Continuity of Care Document ---
Author Organization [facility] Address [address] [place] [address]- Care Team Providers Care Passementerie Worker Name Role Phone Jarrod Sherman MD Primary Care Physician Encounter [facility] Date(s): 10/07/23 - 11/06/23 [facility] [address] [place], [place] [address] Attending Physician: Kalen Yusuf Admitting Physician: AdmtrKalen Referring Physician: Admtr, Ar8 Allergies, Adverse Reactions, Alerts Substance Reaction Severity Status amoxicillin Rash Active topiramate Swelling of throat Active Latex Skin rash Active Feraheme 1 Active Provera Bleeding Active 1Chest pressure, lightheaded, [...] 07/24/22 8:20:00 EST, Route to Pharmacy Electronically, [facility], Partial fill upon patient [...] PCP Address: Address: [address] [place] [address]- [place] Name: Denise Hurt RN Position: [facility] RN Member Role: Primary Care Nurse Name: Katie Berger RN Position: [facility] SN RN Member Role: Primary Care Nurse Name: John Gtz RN Position: [facility] RN Member Role: Primary Care Nurse Name: Loreto Powell RN Position: [facility] RN Member Role: Primary Care Nurse Name: Jyoti Peraza RN Position: [facility] RN Member Role: Primary Care Nurse Care Team Related Persons Name: LISA SAHUSALVADORFELICIA Address: [address] Address: home [address] [place] [address] [place] Name: LUIS ALBERTO JOSE Address: [address] Address: home [address] [place] [address] [place] Name: DENNISE MCCLAIN Address: [place] [address]
--- OUTSIDE RECORDS SUMMARY | 2023-11-14 12:08 | XMS_ITS | Continuity of Care Document ---
Author Organization [facility] Address [address] [place] [address]- Care Team Providers Care Signal Operator Linguist Name Role Phone Jarrod Sherman MD Primary Care Physician [facility] [facility] Date(s): 06/26/22 - 07/26/22 [facility] [address] [place] [address]- Attending Physician: AdmKalen gastelum Admitting Physician: Admtr, Ar8 Referring Physician: Admtr, [...] 8:20:00 EST, Route to Pharmacy Electronically, [facility], Partial fill upon patient request [...] Moderate, 07/24/22 8:32:00 EST, Route to Pharmacy Electronically,[facility], Partial fill upon patient... Start [...] 08/01/22 8:00:00 EST, 07/24/22 8:18:00 EST, Tablet, [facility],Partial fill upon patient request if [...] Reference Physician Member Role: PCP Address: Address: [address] [place] [address] Drive [address] [place] [address] - Name: Katie Berger RN Position: S RN Member Role: Primary Care Nurse Name: Loreto Powell RN Position: S RN Member Role: Primary Care Nurse Name: Jyoti Peraza RN Position: S RN Member Role: Primary Care Nurse Care Team Related Persons Name: SAHUMANJINDER Address: Address: home [address] [place], [place] Name: JOSE SAHU Address: Address: home [address] [place], [place] Name: DENNISE MCCLAIN Address: [place] [address]
--- OUTSIDE RECORDS SUMMARY | 2023-11-14 12:08 | XMS_ITS | Continuity of Care Document ---
Author Organization [facility] Address [address], [address] [place] [address]- Care Team Providers Care Professional Engineer Name Role Phone Jarrod Sherman MD Primary Care Physician [phone] [place] [facility] [place] 02/27/23 - 03/29/23 [facility] [address], [address] [place], [place] [address] Allergies, Adverse Reactions, Alerts Substance Reaction [...] 07/24/22 8:20:00 EST, Route to Pharmacy Electronically, [facility], Partial fill upon patient request if the prescription is for a schedule I... Start Date: 07/24/22 Stop Date: 08/07/22 Status: Ordered CeleBREX 200 mg oral capsule 1 capsule = 200 mg, By Mouth, 2 times a day, take while on menses do not mix with ibuprofen, # 60 capsule, 2 Refills, Maintenance, 07/03/22 14:00:00 EST, Capsule, [id number], Partial fill [...] Physician Member Role: PCP Address: Address: [address] [place] [address] Drive [address] [place] [address]- Name: Katie Berger RN Position: S RN Member Role: Primary Care Nurse Name: Loreto Powell RN Position: S RN Member Role: Primary Care Nurse Name: Jyoti Peraza RN Position: S RN Member Role: Primary Care Nurse Care Team Related Persons Name: MANJINDER SAHU Address: [address] Address: home [address] [place] [address] [place] Name: JOSE SAHU Address: [address] Address: home [address] [place] [address] [place] Name: DENNISE MCCLAIN Address: [place] [address]
[2023-11-14 12:45] VITALS: BP 130/78; PULSE 67; O2SAT 99; BMI 40.4
--- NOTE | 2023-11-14 12:45 | AM.OFFWIN_ITS ---
Intake Vital Signs 11/14/23 12:45 Height 5 ft 1 in Weight 214 lb BMI 40.4 BP 130/78 Blood Pressure Location Lt brachial Position Sitting Pulse 67 Pulse Source Pulse Oximeter Pulse Oximetry (%) 99 Oxygen Delivery Method Room Air Intake Visit Reasons: EST/right arm pain (lobby) Intake Note: pt is here today for rt arm pain started 4 days ago Patient Tobacco Use Status: Former Tobacco user Quit Date: 2.5 yrs Allergies amoxicillin [AMOXICILLIN] Allergy (Intermediate, Verified 11/14/23 12:55) NAUSEA & VOMITING, stomach pain, vomiting, stomach upset topiramate [From TOPAMAX] Allergy (Intermediate, Verified 11/14/23 12:55) TREMORS, nausea and vomiting latex [LATEX] Allergy (Mild, Verified 11/14/23 12:55) RASH medroxyprogesterone [From PROVERA] Allergy (Mild, Verified 11/14/23 12:55) RASH lactose Allergy (Verified 11/14/23 12:55) bloating , diarrhea Do you need a note to return to daycare/school/sports/work: No HPI HPI Comments History of Present Illness Details This is a 32-year-old female s/p left hip replacement 9 days ago presenting for pain in her right upper arm and shoulder that she has had for the past 4 days. She states that the pain will occasionally radiate up to her neck. Patient denies any injury or trauma to her right arm and states that she simply woke up this way. Patient describes the pain as a sharp and dull aching sensation that is worse with movement. Patient has been taking Tylenol, aspirin and morphine without relief of her discomfort. [facility] Medical History Benign essential hypertension Thoracic back pain Depression Tension headache Myofascial pain Sacroiliac joint pain Bilateral primary osteoarthritis of hip Post depression BMI 39.0-39.9,adult Trigger finger of left thumb Trigger finger of right thumb Insomnia Morbid obesity with BMI of 40.0-44.9, adult Smoker Carpal tunnel syndrome, bilateral Personal history of gestational diabetes Obesity (BMI 30-39.9) Supervision of other high risk , antepartum Supervision of other normal PCOS (polycystic ovarian syndrome) control counseling Migraines Vulvar cyst Anxiety Hyperlipemia Fibromyalgia Rheumatoid arthritis Surgical History S/P laparoscopic cholecystectomy (03/06/23) H/O tubal ligation History of hip replacement, total History of esophagogastroduodenoscopy (EGD) History of removal of cyst History of tonsillectomy and adenoidectomy Family History Father Medical history unknown Mother Diabetes Hypertension Maternal Aunt Breast cancer Ovarian cancer Mental health disorder Maternal Grandmother Diabetes Hypertension Social History Household Members: Spouse and Children Housing: Condominium Alcohol intake: current Alcohol intake frequency: holidays/special occasions only Patient Tobacco Use Status: Former Tobacco user e-Cigarette/Vaping Use: Never Used Second Hand Smoke Exposure: No Substance Use Type: Marijuana service: No Current occupational status: disabled Sexual orientation: Straight/Heterosexual Gender identity: Female Cognitive needs: No Hearing needs: No Vision needs: Yes Female Reproductive History Menstrual Age of Menarche: 8 Review of Systems Const All systems reviewed & are unremarkable except as noted in HPI and below Reports no additional complaints Eyes Reports no additional complaints ENT Reports no additional complaints and Reports neck pain Card Reports no additional complaints Resp Reports no additional complaints Musc Details: Right arm pain Reports arthralgias (right shoulder), Reports neck pain, Denies numbness and Denies tingling Skin/Breast Reports system reviewed and no additional complaints, except as documented Neuro Reports no additional complaints, Denies numbness, Denies radicular pain and Denies tingling Psych Reports no additional complaints Physical Exam Vital Signs: Last Vital Signs Pulse 67 11/14/23 12:45 BP 130/78 11/14/23 12:45 Pulse Ox 99 11/14/23 12:45 Oxygen Delivery Method Room Air 11/14/23 12:45 BMI result Body Mass Index 40.4 Const General: cooperative, comfortable and no acute distress Nutritional Appearance: obese Orientation/consciousness: patient oriented x3 Limitations: no limitations Back/Spine/Pelvis Cervical Spine: cervical muscular tenderness (right paraspinous tenderness), pain with cervical ROM and No Cervical spine tenderness Skin General skin exam: no rashes or lesions noted Neuro General: patient oriented x3 Cognition (Neuro): normal cognition Gait exam (Neuro): Normal gait present Extrem Other: Pain to palpation of the right SCM and right anterior shoulder. No pain to palpation of the right clavicle, right deltoid or right humerus; field interviewer strength equal bilaterally, passive ROM right shoulder intact. Right upper extremity: normal to inspection and shoulder/upper arm Details: tenderness Location: of the A-C joint; not of the clavicle, not of the proximal humerus, not of the scapula and not of the mid-shaft humerus; no edema and joint enlargement noted Assessment & Plan Assessment & Plan (1) Right shoulder strain: Comment: There is no history of trauma; patient is already taking Celebrex and has cyclobenzaprine tablets at home that she has not been taking. Code(s): S46.911A - Strain of unspecified muscle, fascia and tendon at shoulder and upper arm level, right arm, initial encounter Qualifiers: Encounter type: initial encounter Qualified Code(s): S46.911A - Strain of unspecified muscle, fascia and tendon at shoulder and upper arm level, right arm, initial encounter Plan: Continue Celebrex once daily and start taking your previously prescribed cyclobenzaprine 3 times daily. Follow up with your primary care physician within 5-7 days for a re-evaluation of your symptoms Coding Level of Care Code Est Pt Level 3 (59101) Diagnoses Strain of right shoulder, initial encounter S46.911A Encounter type: initial encounter Time Spent (min) 20
== END 2023-11-14 13:39 | disposition home or self-care (01) ==
PROVIDERS: PCP Internal Medicine; Visit Provider Physician Assistant
DX: S46.911A Strain of unspecified muscle, fascia and tendon at shoulder and upper arm level, right arm, initial encounter (principal)
CPT/HCPCS: 99213

== ENCOUNTER 2023-11-15 10:35 | Outpatient (AMB) | payer OTHER, SELFPAY ==
--- NOTE | 2023-11-15 11:56 | A.OFFVIS_ITS ---
Vital Signs 11/15/23 12:04 Height 5 ft 1 in Weight 215 lb 2.738 oz BMI 40.7 BP 130/68 Blood Pressure Location Lt brachial Position Sitting Pulse 74 Intake Visit Reasons: Follow up biliary dyskinesia Intake Note: Patient presents to in office visit today in follow up of abdominal pain. CC: Patient reports that she has been doing ok but the only thing that has started to happen again is that when she bends down feels a ball and it hurts. Denies other GI symptoms today. Ladle Operator Required: No Allergies amoxicillin [AMOXICILLIN] Allergy (Intermediate, Verified 11/15/23 12:20) NAUSEA & VOMITING, stomach pain, vomiting, stomach upset topiramate [From TOPAMAX] Allergy (Intermediate, Verified 11/15/23 12:20) TREMORS, nausea and vomiting latex [LATEX] Allergy (Mild, Verified 11/15/23 12:20) RASH medroxyprogesterone [From PROVERA] Allergy (Mild, Verified 11/15/23 12:20) RASH lactose Allergy (Verified 11/15/23 12:20) bloating , diarrhea HPI HPI Follow up biliary dyskinesia: Details: Assessment & Plan (1) Biliary dyskinesia: Comment: EF is 0% by HIDA Code(s): K82.8 - Other specified diseases of gallbladder Plan: She is feeling better with the creon, she has not vomited and had no more severe pain; but she now is not moving her bowels despite being adherent to her Linzess 145mcg. This sometimes happens, so we will increase the dose. She has an upcoming appt with [facility] Surgery 01/31 to discuss possible racquel. ROV 4 weeks. (2) Gallstones: Code(s): K80.20 - Calculus of gallbladder without cholecystitis without obstruction (3) RUQ abdominal pain: Comment: on right same side as recent hip replacement and uksing crutch....? msk Code(s): R10.11 - Right upper quadrant pain (4) Chronic idiopathic constipation: Code(s): K59.04 - Chronic idiopathic constipation (5) GERD (gastroesophageal reflux disease): Code(s): K21.9 - Gastro-esophageal reflux disease without esophagitis Qualifiers: Esophagitis presence: without esophagitis Qualified Code(s): K21.9 - Gastro-esophageal reflux disease without esophagitis (6) Delayed gastric emptying: Code(s): K30 - Functional dyspepsia Medications: New linaclotide (Linzess) 290 mcg PO QAM 30 days 30 caps 6RF K59.04 - Chronic idiopathic constipation On Hold linaclotide (Linzess) Hold Comment: Doctor's O rder 145 mcg PO QAM 30 caps 6RF K59.04 - Chronic idiopathic constipati TODAY'S VISIT She is doing pretty well since her gallbladder was taken out. She does have some bloating at times and I explained that that is to be expected. She continues on the Creon but if she develops diarrhea or severe bloating we might consider a bile binding agent. She still has a pain when she bends forward that feels like a ball just under the ribcage. She can not elicit this pain with eating or moving her bowels only with bending of the spine. She does have a thoracic spine x-ray showing degenerative disc disease in the thoracic spine and I explained to her using a spinal model how this could be a musculoskeletal or radicular pain. Fortunately she is seeing a specialist about her back in the near future and will see if anything comes of that. She continues on her Dexilant, Reglan 4 times a day, Linzess 290 (which she finds is moving her bowels quite well), and Creon. Return office visit in 6 months. COUNT INCLUDES THE [facility] Medical History Gallstones Annual physical exam Encounter for preoperative pulmonary examination Benign essential hypertension Thoracic back pain Depression Tension headache Myofascial pain Sacroiliac joint pain Bilateral primary osteoarthritis of hip Post depression BMI 39.0-39.9,adult Trigger finger of left thumb Trigger finger of right thumb Insomnia Morbid obesity with BMI of 40.0-44.9, adult Smoker Carpal tunnel syndrome, bilateral Personal history of gestational diabetes Obesity (BMI 30-39.9) Supervision of other high risk , antepartum Supervision of other normal PCOS (polycystic ovarian syndrome) control counseling Migraines Vulvar cyst Anxiety Hyperlipemia Fibromyalgia Rheumatoid arthritis Surgical History S/P laparoscopic cholecystectomy (03/06/23) H/O tubal ligation History of hip replacement, total History of esophagogastroduodenoscopy (EGD) History of removal of cyst History of tonsillectomy and adenoidectomy Family History Father Medical history unknown Mother Diabetes Hypertension Maternal Aunt Breast cancer Ovarian cancer Mental health disorder Maternal Grandmother Diabetes Hypertension Social History Household Members: Spouse and Children Housing: Condominium Alcohol intake: current Alcohol intake frequency: holidays/special occasions only Patient Tobacco Use Status: Former Tobacco user e-Cigarette/Vaping Use: Never Used Second Hand Smoke Exposure: No Substance Use Type: Marijuana service: No Current occupational status: disabled Sexual orientation: Straight/Heterosexual Gender identity: Female Cognitive needs: No Hearing needs: No Vision needs: Yes Female Reproductive History Menstrual Age of Menarche: 8 Review of Systems Const Denies fatigue, Denies fever(s), Denies night sweats, Denies poor appetite and Denies weight loss ENT Reports Normal hearing present, Denies dental pain, Denies dysphagia, Denies hearing loss, Denies mouth pain, Denies odynophagia, Denies throat swelling, Denies tongue swelling and Reports other (Dentition adequate) Card Reports no additional complaints Resp Reports no additional complaints GI Details: Reports abdominal pain, Denies melena, Reports bloating, Denies hematochezia, Reports constipation, Denies GI cramping, Denies dysphagia, Denies excessive flatus, Denies early satiety, Reports heartburn, Denies diarrhea, Denies nausea, Denies odynophagia, Denies vomiting and Denies hematemesis Musc Reports back pain Skin/Breast Denies pruritus, Denies lesions, Denies rash and Denies jaundice Neuro Reports Normal hearing present and Denies Abnormal speech present Endo Denies fatigue Aller/Immun Denies throat swelling and Denies tongue swelling Physical Exam Vital Signs: Last Vital Signs Pulse 74 11/15/23 12:04 BP 130/68 11/15/23 12:04 BMI result Body Mass Index 40.7 Const General: cooperative, no acute distress, well developed and well groomed Nutritional Appearance: well nourished and obese Orientation/consciousness: oriented to person, oriented to place and oriented to time Limitations: No language barrier HEENT Head: Yes normocephalic and Yes atraumatic Eyes General: appearance normal, both eyes and all related structures Pupils: Equal, round and reactive pupils present Neck Neck: Yes normal visual inspection and Yes no lymphadenopathy Thyroid: Thyroid normal Resp Effort & Inspection: normal respiratory effort and able to speak in complete sentences Auscultation: clear to auscultation bilaterally Cardio Rate: regular rate Rhythm: regular rhythm Heart sounds: Normal, physiologic split S2 sound present Peripheral pulses: radial pulses present and posterior tibial pulses present GI Inspection: No distended, Yes Abdominal panniculus present and Yes obesity Palpation (GI): Soft to palpation, nontender, no guarding, not rigid and No hepatosplenomegaly present Percussion: Yes normal to percussion Auscultation: normal bowel sounds Rectal Exam - Female: deferred Skin General skin exam: no rashes or lesions noted, turgor normal, skin not dry, no jaundice, No spider nevi and no striae Rashes: no rashes Nails: normal Neuro General: oriented to person, oriented to place and oriented to time Cranial nerves: Yes Equal, round and reactive pupils present and Yes Normal hearing present Speech: No Abnormal speech present Extrem General: Yes normal to inspection, No clubbing, No cyanosis and No edema Psych Appearance: grossly normal and well kempt Mental Status: mental status grossly normal Speech and movement: Normal speech and movement present Affect: normal affect Attitude: cooperative Thought process: Normal thought process present and not confabulating Thought content: Normal thought content present Insight: Fair insight present (Psych) Judgement: Fair judgement present (Psych) Assessment & Plan Assessment & Plan (1) Chronic idiopathic constipation: Code(s): K59.04 - Chronic idiopathic constipation Category: Medical (2) Delayed gastric emptying: Code(s): K30 - Functional dyspepsia Category: Medical (3) GERD (gastroesophageal reflux disease): Code(s): K21.9 - Gastro-esophageal reflux disease without esophagitis Category: Medical Qualifiers: Esophagitis presence: without esophagitis Qualified Code(s): K21.9 - Gastro-esophageal reflux disease without esophagitis (4) RUQ abdominal pain: Comment: on right same side as recent hip replacement and uksing crutch....? msk Code(s): R10.11 - Right upper quadrant pain Category: Medical (5) S/P laparoscopic cholecystectomy: Onset Date: 03/06/23 Comment: Haider Stanley MD Code(s): Z90.49 - Acquired absence of other specified parts of digestive tract Category: Surgical Plan She is doing pretty well since her gallbladder was taken out. She does have some bloating at times and I explained that that is to be expected. She continues on the Creon but if she develops diarrhea or severe bloating we might consider a bile binding agent. She still has a pain when she bends forward that feels like a ball just under the ribcage. She can not elicit this pain with eating or moving her bowels only with bending of the spine. She does have a thoracic spine x-ray showing degenerative disc disease in the thoracic spine and I explained to her using a spinal model how this could be a musculoskeletal or radicular pain. Fortunately she is seeing a specialist about her back in the near future and will see if anything comes of that. She continues on her Dexilant, Reglan 4 times a day, Linzess 290 (which she finds is moving her bowels quite well), and Creon. Return office visit in 6 months. Medications: Refilled dexlansoprazole (Dexilant) 60 mg PO DAILY 90 caps 2RF K21.9 - Gastro-esophageal reflux disease without esophagitis linaclotide (Linzess) 290 mcg PO QAM 30 caps 6RF 30 days K59.04 - Chronic idiopathic constipation [id number] 36,000-114,000- 180,000 unit (Creon) administer with meals and/or snacks 1 cap PO QID 120 caps 6RF K80.20 - Calculus of gallbladder without cholecystitis without obstruction, K82.8 - Other specified diseases of gallbladder metoclopramide HCl (Reglan) 5 mg PO QIDACHS 120 tabs 6RF K30 - Functional dyspepsia Coding Level of Care Code Est Pt Level 3 (75557) Diagnoses Chronic idiopathic constipation K59.04 Delayed gastric emptying K30 Gastroesophageal reflux disease without esophagitis K21.9 Esophagitis presence: without esophagitis RUQ abdominal pain R10.11 S/P laparoscopic cholecystectomy Z90.49
[2023-11-15 12:04] VITALS: BP 130/68; PULSE 74; BMI 40.7
== END 2023-11-15 12:38 | disposition home or self-care (01) ==
PROVIDERS: PCP Internal Medicine; Visit Provider Nurse Practitioner
DX: K59.04 Chronic idiopathic constipation (principal); K30 Functional dyspepsia; K21.9 Gastro-esophageal reflux disease without esophagitis; R10.11 Right upper quadrant pain; Z90.49 Acquired absence of other specified parts of digestive tract
CPT/HCPCS: 99213

== ENCOUNTER → 2023-11-15 10:35 | Outpatient (BNVA) | payer OTHER, SELFPAY | PROVIDERS: PCP Internal Medicine; Visit Provider Nurse Practitioner | DX: K59.04 Chronic idiopathic constipation (principal); K30 Functional dyspepsia; K21.9 Gastro-esophageal reflux disease without esophagitis; R10.11 Right upper quadrant pain; Z90.49 Acquired absence of other specified parts of digestive tract | CPT/HCPCS: 99212 ==

== ENCOUNTER 2023-11-18 09:18 | Emergency (ER) | payer OTHER, SELFPAY ==
--- NOTE | ~2023-11-18 | XR_ITS ---
EXAMINATION: XR SHOULDER, RIGHT CLINICAL INFORMATION: Right shoulder pain. Limited range of motion. COMPARISON: 02/19/2019 TECHNIQUE: AP external rotation, Grashey, scapular Y views of the right shoulder. FINDINGS: Glenohumeral and acromioclavicular alignment is anatomic with preserved joint space. Mild osteophytic spurring of the inferior humeral head. No displaced fracture. No abnormal soft tissue calcifications. XR/XR shoulder RT min 2V IMPRESSION: No acute abnormality.
[2023-11-18 09:28] VITALS: BP 131/73; PULSE 68; RESP 18; TEMP 36.6; O2SAT 99; BMI 39.1
--- NOTE | 2023-11-18 13:42 | ED_ITS ---
HPI - Extremity Problem General Chief complaint: Extremity Injury, Upper Stated complaint: r side pain Time Seen by Provider: 11/18/23 13:42 Source: patient Mode of arrival: ambulatory Limitations: no limitations History of Present Illness ED Provider: Kemar Guajardo PA-C HPI Narrative: 32 year old female with history of fibromyalgia, obesity, COPD/Asthma, KALA, anxiety, depression, HLD, migraines, PCOS who is presenting for evaluation of nontraumatic right shoulder pain. She has a 1 week history of intermittent sharp right shoulder pain with movement, no pain at rest. Pain radiates down the arm into all 5 fingertips and into the right side of the neck. No numbness or tingling in the shoulder, does have longstanding history of carpal tunnel with numbness in the fingertips that is not related to this new shoulder pain. Denies inciting injury, woke up one day with pain. Pain has been worsening over the last week. 4 days ago she went to urgent care for this issue and was given muscle relaxers, they have not provided any relief. She has also tried taking morphine 15mg that she has from a recent hip replacement one-two times daily without relief. She has also tried tylenol and celebrex without relief. MD Complaint: joint pain Onset (ago): week(s) (1) Pain Consistency: intermittent Location: right (shoulder) Quality: sharp Radiation: proximal and distal Relieving factors: rest Exacerbating factors: range of motion and palpation Associated symptoms: denies other symptoms Related Data Home Medications ?Medication ?Instructions ?Recorded ?Confirmed sertraline 100 mg tablet 100 mg PO DAILY 08/22/20 10/17/23 bupropion HCl 150 mg 24 hr tablet, 150 mg PO QAM 05/03/21 10/17/23 extended release azithromycin 500 mg tablet 500 mg PO DAILY 10/17/23 10/17/23 aspirin 325 mg tablet,delayed mg PO 11/15/23 release celecoxib 200 mg capsule 200 mg PO DAILY 11/15/23 morphine 15 mg immediate release 15 mg PO BID PRN 11/15/23 tablet norethindrone acetate 5 mg tablet 5 mg PO ONCE 11/15/23 Previous Rx's ?Medication ?Instructions ?Recorded lancets 28 gauge (FreeStyle #100 ea 06/27/20 Lancets) FreeStyle Lite Strips (blood sugar 4 strip miscellaneous QID 30 days 07/20/20 diagnostic) #100 strips hydroxyzine HCl 25 mg tablet See Rx Instructions .Route 04/04/22 .COMPLEX anxiety 30 days #180 tabs amlodipine 5 mg tablet (Norvasc) 5 mg PO DAILY #30 tabs 05/13/22 BEDSIDE COMMODE #1 ea 05/14/22 FRONT-WHEELED WALKER #1 ea 05/14/22 TUB SEAT with BACK #1 ea 05/14/22 gabapentin 400 mg capsule 400 mg PO TID 30 days #90 caps 10/17/22 nebulizers (Compact Compressor #1 ea 02/28/23 Nebulizer) albuterol sulfate 90 mcg/actuation 2 inh inhalation Q4-6H PRN 05/23/23 breath activated powder inhaler shortness of breath or wheezing #1 ea ketorolac 10 mg tablet 10 mg PO TID PRN pain #10 tabs 05/30/23 pyridoxine (vitamin B6) 100 mg 100 mg PO DAILY 90 days #90 tabs 07/09/23 tablet cyclobenzaprine 10 mg tablet 10 mg PO TID PRN muscle spasm #7 07/12/23 tabs lidocaine 5 % topical patch 2 patch topical DAILY #30 ea 07/14/23 (Lidoderm) morphine 15 mg immediate release 15 mg PO Q6H PRN pain #20 tabs 07/14/23 tablet ferrous sulfate 325 mg (65 mg 325 mg PO DAILY #90 tabs 07/29/23 iron) tablet budesonide-formoterol HFA 160 2 puff inhalation Q12H #10.2 grams 09/02/23 mcg-4.5 mcg/actuation aerosol inhaler (Symbicort) albuterol sulfate 2.5 mg/3 mL 2.5 mg (3 mL) inhalation Q6H #75 mL 09/10/23 (0.083 %) solution for nebulization labetalol 100 mg tablet 100 mg PO BID 90 days #180 tabs 09/16/23 ibuprofen 800 mg tablet (IBU) 800 mg PO Q8H PRN pain/headaches 10/17/23 30 days #90 tabs nitrofurantoin 100 mg PO Q12H 7 days #14 caps 11/08/23 monohydrate/macrocrystals 100 mg capsule (Macrobid) dexlansoprazole 60 mg 60 mg PO DAILY #90 caps 11/15/23 capsule,biphase delayed release (Dexilant) linaclotide 290 mcg capsule 290 mcg PO QAM 30 days #30 caps 11/15/23 (Linzess) jdpmyf-hwuhxnht-heauvdv 1 cap PO QID #120 caps 11/15/23 36,000-114,000-180,000 unit capsule,delay rel (Creon) metoclopramide HCl 5 mg tablet 5 mg PO QIDACHS #120 tabs 11/15/23 (Reglan) prednisone 20 mg tablet 40 mg (2 x 20 mg) PO DAILY #10 tabs 11/18/23 Allergies Allergy/AdvReac Type Severity Reaction Status Date / Time amoxicillin [AMOXICILLIN] Allergy Intermediate NAUSEA & Verified 11/18/23 09:30 VOMITING, stomach pain, vomiting, stomach upset topiramate [From TOPAMAX] Allergy Intermediate TREMORS, Verified 11/18/23 09:30 nausea and vomiting latex [LATEX] Allergy Mild RASH Verified 11/18/23 09:30 medroxyprogesterone Allergy Mild RASH Verified 11/18/23 09:30 [From PROVERA] lactose Allergy bloating , Verified 11/18/23 09:30 diarrhea Review of Systems Review of Systems: Yes all other systems are reviewed and are negative [facility] Past Medical History Medical History Gallstones Annual physical exam Encounter for preoperative pulmonary examination Benign essential hypertension Thoracic back pain Depression Tension headache Myofascial pain Sacroiliac joint pain Bilateral primary osteoarthritis of hip Post depression BMI 39.0-39.9,adult Trigger finger of left thumb Trigger finger of right thumb Insomnia Morbid obesity with BMI of 40.0-44.9, adult Smoker Carpal tunnel syndrome, bilateral Personal history of gestational diabetes Obesity (BMI 30-39.9) Supervision of other high risk , antepartum Supervision of other normal PCOS (polycystic ovarian syndrome) control counseling Migraines Vulvar cyst Anxiety Hyperlipemia Fibromyalgia Rheumatoid arthritis Surgical History S/P laparoscopic cholecystectomy (03/06/23) H/O tubal ligation History of hip replacement, total History of esophagogastroduodenoscopy (EGD) History of removal of cyst History of tonsillectomy and adenoidectomy Family History Family History Father Medical history unknown Mother Diabetes Hypertension Maternal Aunt Breast cancer Ovarian cancer Mental health disorder Maternal Grandmother Diabetes Hypertension Social History Social History Household Members: Spouse and Children [facility] Alcohol intake: current Alcohol intake frequency: holidays/special occasions only Patient Tobacco Use Status: Former Tobacco user e-Cigarette/Vaping Use: Never Used Second Hand Smoke Exposure: No Substance Use Type: Marijuana Advance Directives: No Advance Directives Information Provided: No Do you have a plan to hurt others: No Plan service: No Current occupational status: disabled Sexual orientation: Straight/Heterosexual Gender identity: Female Cognitive needs: No Hearing needs: No Vision needs: Yes Physical Exam Vital Signs: Vital Signs: Last Vital Signs Temp 97.9 F 11/18/23 14:57 Pulse 72 11/18/23 14:57 Resp 16 11/18/23 14:57 BP 133/79 11/18/23 14:57 Pulse Ox 100 11/18/23 14:57 O2 Del Method Room Air 11/18/23 14:57 BMI result Body Mass Index 39.1 Appearance: Alert. Oriented X3. No acute distress. HEENT: normal inspection CVS: Normal heart rate and rhythm. Pulses normal. Respiratory: No respiratory distress. Skin: Skin warm and dry. Normal skin color. Normal skin turgor. No rashes. Extremities: No obvious deformity of right shoulder, ROM limited by pain, tender to palpation along right trapezius and anterior shoulder. Right elbow active and passive ROM intact. NV intact distally. Neuro: Oriented X 3. No motor deficit. No sensory deficit. Medications Administered Discontinued Medications Generic Name Dose Route Start Last Admin Trade Name Freq PRN Reason Stop Dose Admin Ketorolac Tromethamine 30 mg 11/18/23 14:34 11/18/23 14:50 Ketorolac Tromethamine 30 Mg/Ml Vial IM 11/18/23 14:35 30 mg ONCE ONE Administration Medical Decision Making Medical Decision Making MDM Narrative: 32 year old female with past medical history pertinent for fibromyalgia and carpal tunnel syndrome presenting for evaluation of right shoulder pain x1week. Sharp intermittent pain with movement, radiates to right side of neck and down right arm, no inciting injury, worsening over the last week. Pain has not responded to morphine 15mg, celebrex, tylenol, or muscle relaxer. No numbness or tingling of the shoulder and no clear dermatomal distribution of pain makes radiculopathy unlikey. Difficult to evaluate for rotator cuff pathology as exam is limited by pain, history of prediabetes so considered adhesive capsulitis. X- ray normal. Tenderness to palpation over the right trapezius muscle and pain with ROM may indicate muscle strain or fibromyalgia exacerbation. Plan to give dose of IM toradol for pain control, refer to ortho, and refer to PCP for PT referral. Patient is comfortable with this plan. Stable for discharge. Differential Diagnosis Differential Diagnoses: The differential diagnosis associated with the presentation includes rotator cuff arthropathy, tendonitis, adhesive capsulitis, fibromyalgia exacerbation, cervical radiculopathy, right trapezius muscle strain Independent Interpretation I performed an independent interpretation of an: Plain X-Ray Interpretation: no acute fx Radiology Impression Discussion of test interpretation with radiology: I have reviewed the r adiologist's reading. Radiologist Impression: EXAMINATION: XR SHOULDER, RIGHT CLINICAL INFORMATION: Right shoulder pain. Limited range of motion. COMPARISON: 02/19/2019 TECHNIQUE: AP external rotation, Grashey, scapular Y views of the right shoulder. FINDINGS: Glenohumeral and acromioclavicular alignment is anatomic with preserved joint space. Mild osteophytic spurring of the inferior humeral head. No displaced fracture. No abnormal soft tissue calcifications. XR/XR shoulder RT min 2V IMPRESSION: No acute abnormality. External Record Review External record reviewed: Outpatient record, Prior outpatient labs and Prior outpatient radiology Prescription Management I considered prescription management with: Pain Medication Chronic Conditions Patient?s care impacted by: Other (fibromyalgia) Critical Care Time Critical Care Time Critical Care Time: No Discharge Plan Discharge Clinical Impression: Acute shoulder pain Qualifiers: Laterality: right Qualified Code(s): M25.511 - Pain in right shoulder Patient Disposition: Home, Self-Care Instructions: Shoulder Pain (ED) Additional Instructions: Your x-ray today was normal. Gently range your shoulder as able. It is important to move it so it does not get frozen. Use ice several times per day for the next 48 hours. Take Motrin and/or Tylenol as needed for pain. Take the prescribed steroid medication as directed to help with inflammation and pain Follow up with your doctor and orthopedics If you develop new or worsening symptoms call 911 or come back to the ER for further evaluation. Prescriptions: New prednisone 20 mg tablet 40 mg PO DAILY Qty: 10 0RF No Action FreeStyle Lite Strips Strip 4 strip miscellaneous QID 30 Days Qty: 100 1RF (DME) FRONT-WHEELED WALKER See Rx Instructions .Route .MEDSUPPLY Qty: 1 0RF Rx Instructions: As directed (DME) TUB SEAT with BACK See Rx Instructions .Route .MEDSUPPLY Qty: 1 0RF Rx Instructions: As directed (DME) BEDSIDE COMMODE See Rx Instructions .Route .MEDSUPPLY Qty: 1 0RF Rx Instructions: As directed gabapentin 400 mg capsule 400 mg PO TID 30 Days Qty: 90 3RF Rx Instructions: 1 capsule Orally Three times a day ferrous sulfate 325 mg (65 mg iron) tablet 325 mg PO DAILY Qty: 90 1RF budesonide-formoterol [Symbicort] 160-4.5 mcg/actuation HFA aerosol inhaler 2 puff inhalation Q12H Qty: 10.2 3RF labetalol 100 mg tablet 100 mg PO BID 90 Days Qty: 180 1RF ibuprofen [IBU] 800 mg tablet 800 mg PO Q8H PRN (Reason: pain/headaches) 30 Days Qty: 90 0RF Rx Instructions: Take with food nitrofurantoin monohyd/m-cryst [Macrobid] 100 mg capsule 100 mg PO Q12H 7 Days Qty: 14 0RF Rx Instructions: must administer with a meal/food amlodipine [Norvasc] 5 mg tablet 5 mg PO DAILY Qty: 30 0RF albuterol sulfate 90 mcg/actuation aerosol powdr breath activated 2 inh inhalation Q4-6H PRN (Reason: shortness of breath or wheezing) Qty: 1 0RF ketorolac 10 mg tablet 10 mg PO TID PRN (Reason: pain) Qty: 10 0RF Rx Instructions: Do not use this medication with ibuprofen/Aleve/NSAIDs, only Tylenol if needed cyclobenzaprine 10 mg tablet 10 mg PO TID PRN (Reason: muscle spasm) Qty: 7 0RF lidocaine [Lidoderm] 5 % adhesive patch,medicated 2 patch topical DAILY Qty: 30 0RF Rx Instructions: leave on most painful area for up to 12 hrs morphine 15 mg tablet 15 mg PO Q6H PRN (Reason: pain) Qty: 20 0RF Rx Instructions: Partial Fill upon patient request. sertraline 100 mg tablet 100 mg PO DAILY hydroxyzine HCl 25 mg tablet See Rx Instructions .ROUTE .COMPLEX 30 Days Qty: 180 3RF Rx Instructions: 1 to 2 tablets 3 times a day as needed for anxiety; (DME) nebulizers [Compact Compressor Nebulizer] Misc See Rx Instructions .Route Qty: 1 0RF Rx Instructions: As directed azithromycin 500 mg tablet 500 mg PO DAILY (DME) lancets [FreeStyle Lancets] 28 gauge misc See Rx Instructions .ROUTE .MEDSUPPLY Qty: 100 1RF Rx Instructions: 4 times/day bupropion HCl 150 mg tablet extended release 24 hr 150 mg PO QAM pyridoxine (vitamin B6) 100 mg tablet 100 mg PO DAILY 90 Days Qty: 90 1RF norethindrone acetate 5 mg tablet 5 mg PO ONCE albuterol sulfate 2.5 mg /3 mL (0.083 %) solution for nebulization 2.5 mg inhalation Q6H Qty: 75 0RF aspirin 325 mg tablet,delayed release (DR/EC) PO celecoxib 200 mg capsule 200 mg PO DAILY morphine 15 mg tablet 15 mg PO BID PRN Linzess 290 mcg capsule 290 mcg PO QAM 30 Days Qty: 30 6RF Creon 36,000-114,000- 180,000 unit capsule,delayed release(DR/EC) 1 cap PO QID Qty: 120 6RF Rx Instructions: administer with meals and/or snacks metoclopramide HCl [Reglan] 5 mg tablet 5 mg PO QIDACHS Qty: 120 6RF Dexilant 60 mg capsule,biphase delayed releas 60 mg PO DAILY Qty: 90 2RF Referrals: Jarrod Sherman MD [Primary Care Provider] - Interventions: ED Discharge Assessment Last Done: 11/18/23 14:57 Discharge Date/Time: 11/18/23 14:58 Print Language: Bahamian
[2023-11-18] MEDS: Ketorolac Tromethamine 30 MG/ML VIAL IM (14:50)
[2023-11-18 14:57] VITALS: BP 133/79; PULSE 72; RESP 16; TEMP 36.6; O2SAT 100
--- OUTSIDE RECORDS SUMMARY | 2023-11-22 09:27 | XMS_ITS | Continuity of Care Document ---
Author Organization [facility] Address [address] [place] [address], [address] [place] [address]- Care Team Providers Care Cyber Engineer Name Role Phone Jarrod Sherman MD Primary Care Physician Encounter [facility] Date(s): 04/30/22 - 05/30/22 [facility] [employer] [facility] [address], [address]th [place] [address]- Allergies, Adverse Reactions, Alerts Substance Reaction Severity [...] 03/06/21 15:09:00 EDT, Route to Pharmacy Electronically, [facility]/pharmacy #[id number], Partial fill upon patientrequest if the prescription is for a schedule II op... Start Date: 03/06/21 Status: Ordered labetalol 200 mg oral tablet 1 tablet, By Mouth, 2 times a day, # 60 tablet, 0 Refills, [id number], 154.9, cm, 12/18/20 12:26:00 EDT, Height, 106.7, [...] Reference Physician Member Role: PCP Address: Address: [address] [place] [address] Drive [address] [place], [place] - Care Team Related Persons Name: MANJINDER SAHU Address: Address: home [address] [place], [place] Name: JOSE SAHU Address: Address: home [address] [place], [place] Name: DENNISE MCCLAIN Address: [place] [address]
--- OUTSIDE RECORDS SUMMARY | 2023-11-22 09:27 | XMS_ITS | Continuity of Care Document ---
Author Organization [facility] [employer] Address [address], [address] [place] [address]- Care Team Providers Care Inspector Floor Sub Assembly Name Role Phone Jarrod Sherman MD Primary Care Physician [phone] Encounter [facility] Date(s): 03/04/23 - 04/03/23 [facility] [employer] [address], [address]th [address] [place], [place] [address] Allergies, Adverse Reactions, Alerts [...] 07/24/22 8:20:00 EST, Route to Pharmacy Electronically, [facility], Partial fill upon patient request if the prescription is for a schedule I... Start Date: 07/24/22 Stop Date: 08/07/22 Status: Ordered CeleBREX 200 mg oral capsule 1 capsule = 200 mg, By Mouth, 2 times a day, take while on menses do not mix with ibuprofen, # 60 capsule, 2 Refills, Maintenance, 07/03/22 14:00:00 EST, Capsule, [facility]/pharmacy #[id number], Partial fill upon patient [...] Reference Physician Member Role: PCP Address: Address: [address] [place] [address] Drive [address] [place] [address]- Name: Celine MYERSKatie Position: S RN Member Role: Primary Care Nurse Name: Loreto Powell RN Position: S RN Member Role: Primary Care Nurse Name: Jyoti Peraza RN Position: S RN Member Role: Primary Care Nurse Care Team Related Persons Name: MANJINDER SAHU Address: [address] Address: home [address] [place] [address] [place] Name: JOSE SAHU Address: [address] Address: home [address] [place] [address] [place] Name: DENNISE MCCLAIN Address: [place] [address]
--- OUTSIDE RECORDS SUMMARY | 2023-11-22 09:27 | XMS_ITS | Continuity of Care Document ---
Author Organization [facility] [employer] Address [address], [address] [place] [address]- Care Team Providers Care Hospital Educator Name Role Phone Jarrod Sherman MD Primary Care Physician [phone] Encounter [facility] Date(s): 02/28/23 - 03/30/23 [facility] [employer] [facility] [address], [address] [place] [address]- Attending Physician: Kalen Yusuf Admitting Physician: AdmKalen [...] 8:20:00 EST, Route to Pharmacy Electronically, [facility], Partial fill upon patient request if the prescription is for a schedule I... Start Date: 07/24/22 Stop Date: 08/07/22 Status: Ordered CeleBREX 200 mg oral capsule 1 capsule = 200 mg, By Mouth, 2 times a day, take while on menses do not mix with ibuprofen, # 60 capsule, 2 Refills, Maintenance, 07/03/22 14:00:00 EST, Capsule, [facility]/pharmacy #[id number], Partial fill upon patient request if [...] Address: Address: [address] [place] [address]- [place] Name: Katie Berger RN Position: S RN Member Role: Primary Care Nurse Name: Loreto Powell RN Position: S RN Member Role: Primary Care Nurse Name: Jyoti Peraza RN Position: S RN Member Role: Primary Care Nurse Care Team Related Persons Name: LUIS ALBERTO MANJINDER Address: [address] Address: home [address] [place] [address] [place] Name: SAHUJOSE Address: [address] Address: home [address] [place] [address] [place] Name: DENNISE MCCLAIN Address: [place] [address]
== END 2023-11-18 14:58 | disposition home or self-care (01) ==
PROVIDERS: Emergency Provider Emergency Medicine; PCP Internal Medicine
DX: M25.511 Pain in right shoulder (principal); I10 Essential (primary) hypertension; E78.5 Hyperlipidemia, unspecified; F12.90 Cannabis use, unspecified, uncomplicated; Z79.82 Long term (current) use of aspirin; Z79.899 Other long term (current) drug therapy
CPT/HCPCS: 73030; 96372; 99283; 99284; J1885

== ENCOUNTER 2023-12-13 13:31 | Outpatient (AMB) | payer OTHER, SELFPAY ==
--- NOTE | 2023-12-13 13:34 | A.OFFVIS_ITS ---
Vital Signs 12/13/23 13:36 Height 5 ft 2 in Weight 207 lb BMI 37.9 BP 138/86 Blood Pressure Location Lt brachial Position Sitting Pulse 71 Pulse Source Pulse Oximeter Pulse Oximetry (%) 98 Oxygen Delivery Method Room Air Intake Visit Reasons: COPD Allergies amoxicillin [AMOXICILLIN] Allergy (Intermediate, Verified 12/13/23 13:39) NAUSEA & VOMITING, stomach pain, vomiting, stomach upset topiramate [From TOPAMAX] Allergy (Intermediate, Verified 12/13/23 13:39) TREMORS, nausea and vomiting latex [LATEX] Allergy (Mild, Verified 12/13/23 13:39) RASH medroxyprogesterone [From PROVERA] Allergy (Mild, Verified 12/13/23 13:39) RASH lactose Allergy (Verified 12/13/23 13:39) bloating , diarrhea HPI HPI COPD: Details: Gabriella is a very pleasant 32-year-old female, never tobacco smoker, with underlying asthma/COPD, rheumatoid arthritis and fibromyalgia. At baseline she reports good control of respiratory symptoms since switching to Symbicort, infrequently using albuterol MDI/neb. Of note, she recently underwent a total hip replacement and tolerated anesthesia well. She notes over the last few days has developed increased chest tightness and dry cough. She has not been using albuterol with the development of worsening symptoms. [facility] Medical History Gallstones Annual physical exam Encounter for preoperative pulmonary examination Benign essential hypertension Thoracic back pain Depression Tension headache Myofascial pain Sacroiliac joint pain Bilateral primary osteoarthritis of hip Post depression BMI 39.0-39.9,adult Trigger finger of left thumb Trigger finger of right thumb Insomnia Morbid obesity with BMI of 40.0-44.9, adult Smoker Carpal tunnel syndrome, bilateral Personal history of gestational diabetes Obesity (BMI 30-39.9) Supervision of other high risk , antepartum Supervision of other normal PCOS (polycystic ovarian syndrome) control counseling Migraines Vulvar cyst Anxiety Hyperlipemia Fibromyalgia Rheumatoid arthritis Surgical History S/P laparoscopic cholecystectomy (03/06/23) H/O tubal ligation History of hip replacement, total History of esophagogastroduodenoscopy (EGD) History of removal of cyst History of tonsillectomy and adenoidectomy Family History Father Medical history unknown Mother Diabetes Hypertension Maternal Aunt Breast cancer Ovarian cancer Mental health disorder Maternal Grandmother Diabetes Hypertension Social History Household Members: Spouse and Children Housing: Condominium Alcohol intake: current Alcohol intake frequency: holidays/special occasions only Patient Tobacco Use Status: Former Tobacco user e-Cigarette/Vaping Use: Never Used Second Hand Smoke Exposure: No Substance Use Type: Marijuana service: No Current occupational status: disabled Sexual orientation: Straight/Heterosexual Gender identity: Female Cognitive needs: No Hearing needs: No Vision needs: Yes Female Reproductive History Menstrual Age of Menarche: 8 Review of Systems Const Denies chills, Denies excessive sweating, Denies fever(s), Denies headache(s) and Denies night sweats Eyes Denies dry eyes, Denies irritation and Denies itchy eyes ENT Reports Normal hearing present, Denies headache(s), Denies nasal congestion, Denies nasal discharge, Denies post nasal drip and Denies sore throat Card Denies chest pain, Denies chest pain at rest, Denies chest pain with activity, Denies claudication, Denies leg edema and Denies orthopnea Resp Denies chest congestion, Denies excessive phlegm production, Denies pain on inspiration, Denies pain with cough and Denies stridor Musc Denies myalgias Neuro Reports Normal hearing present and Denies headache(s) Endo Denies excessive sweating Teddy/Lymph Denies lymphadenopathy Aller/Immun Denies itchy eyes and Denies seasonal rhinorrhea Physical Exam Vital Signs: Last Vital Signs Pulse 71 12/13/23 13:36 BP 138/86 12/13/23 13:36 Pulse Ox 98 12/13/23 13:36 Oxygen Delivery Method Room Air 12/13/23 13:36 BMI result Body Mass Index 37.9 Const General: cooperative, healthy appearing, comfortable, no acute distress, well developed and alert Nutritional Appearance: obese Orientation/consciousness: patient oriented x3 Limitations: no limitations HEENT Head: Yes normal to inspection, Yes normocephalic and Yes atraumatic Ears: hearing grossly normal bilaterally and external ears normal Eyes General: appearance normal, both eyes and all related structures Eyelids: Yes eyelids normal Sclerae: sclerae normal EOM: EOMs intact bilaterally Neck Neck: Yes normal visual inspection and Yes no lymphadenopathy Lymphatic: no lymphadenopathy noted Chest Chest palpation & inspection: normal inspection of the chest Resp Effort & Inspection: normal respiratory effort, able to speak in complete sentences, no audible wheezes, no cough, no stridor, not tachypneic, no tripod positioning and no use of accessory muscles Auscultation: diminished lung sounds Cardio Jugular venous distension: no JVD Rate: regular rate Rhythm: regular rhythm Skin Other: warm, dry General skin exam: no rashes or lesions noted Neuro General: patient oriented x3 Cranial nerves: Yes Normal hearing present Cognition (Neuro): normal cognition Gait exam (Neuro): Normal gait present Extrem General: Yes normal to inspection, Yes capillary refill normal, Yes no clubbing, cyanosis or edema and Yes no pedal edema Psych Appearance: grossly normal and well kempt Speech and movement: Normal speech and movement present and Clear speech present Affect: normal affect Attitude: cooperative Thought process: Normal thought process present Thought content: Normal thought content present Insight: Good insight present (Psych) Judgement: Good judgement present (Psych) Assessment & Plan Assessment & Plan (1) Asthma-COPD overlap syndrome: Code(s): J44.89 - Other specified chronic obstructive pulmonary disease Category: Medical (2) Obesity (BMI 30-39.9): Code(s): E66.9 - Obesity, unspecified Category: Medical Plan Gabriella reports good control of respiratory symptoms with Symbicort use at baseline. She recently developed chest tightness and dry cough over the last two days, encouraged albuterol use and if symptoms worsen to call office. At this time, no prednisone indicated. Respiratory exam unremarkable. All questions answered and patient is in agreement of plan. Will follow up in 3-6 months or sooner if needed. Coding Level of Care Code Est Pt Level 3 (69798) Diagnoses Asthma-COPD overlap syndrome J44.89 Obesity (BMI 30-39.9) E66.9
[2023-12-13 13:36] VITALS: BP 138/86; PULSE 71; O2SAT 98; BMI 37.9
== END 2023-12-13 13:57 | disposition home or self-care (01) ==
PROVIDERS: PCP Internal Medicine; Visit Provider Nurse Practitioner Family
DX: J44.89 Other specified chronic obstructive pulmonary disease (principal); E66.9 Obesity, unspecified
CPT/HCPCS: 99213

== ENCOUNTER → 2023-12-13 13:31 | Outpatient (BNVA) | payer OTHER, SELFPAY | PROVIDERS: PCP Internal Medicine; Visit Provider Nurse Practitioner Family | DX: J44.89 Other specified chronic obstructive pulmonary disease (principal); E66.9 Obesity, unspecified; Z68.37 Body mass index [BMI] 37.0-37.9, adult | CPT/HCPCS: 99212 ==

== ENCOUNTER 2023-12-25 02:05 | Emergency (ER) | payer OTHER, SELFPAY ==
[2023-12-25 02:11] VITALS: TEMP 36.6; BMI 39.1
[2023-12-25 03:14] LABS: MANUAL DIFF FLAG NO
--- OUTSIDE RECORDS SUMMARY | 2023-12-25 03:14 | XMS_ITS | Continuity of Care Document ---
Author Organization [facility] Yessica Pham [facility] Address [address] [place] [address]- Care Team Providers Care [employer] Driver Name Role Phone Jarrod Sherman MD Primary Care Physician Encounter [facility] Date(s): 11/08/23 - 12/08/23 [facility] [place] [facility] [address] [place], [place] [address] Allergies, Adverse Reactions, Alerts Substance Reaction Severity Status topiramate Swelling of throat Active Latex Skin rash Active Feraheme 1 Active amoxicillin Rash Active Provera Bleeding Active 1Chest pressure, lightheaded, [...] 07/24/22 8:20:00 EST, Route to Pharmacy Electronically, [facility], Partial fill upon patient [...] Physician Member Role: PCP Address: Address: [address] [place] [address] Drive [address] [place] [address]- [place] Name: Denise Hurt RN Position: [facility] RN Member Role: Primary Care Nurse Name: Katie Berger RN Position: [facility] RN Member Role: Primary Care Nurse Name: John Gtz RN Position: S RN Member Role: Primary Care Nurse Name: Sugar Powell RN Position: [facility] RN Member Role: Primary Care Nurse Name: Jyoti Peraza RN Position: [facility] RN Member Role: Primary Care Nurse Care Team Related Persons Name: MANJINDER SAHU Address: [address] Address: home [address] [place] [address] [place] Name: GREGORY SAHUADALIDPATRIA Address: [address] Address: home [address] [place] [address] [place] Name: DENNISE MCCLAIN Address: [place] [address]
--- OUTSIDE RECORDS SUMMARY | 2023-12-25 03:16 | XMS_ITS | Continuity of Care Document ---
Author Organization [facility] Address [address] [place] [address]- Care Team Providers Care Television Schedule Coordinator Name Role Phone Jarrod Sherman MD Primary Care Physician [phone] Encounter [facility] Date(s): 10/03/23 - 12/06/[address] [address] Attending Physician: Arabella Cheney MD Admitting Physician: Arabella Cheney MD Referring Physician: Arabella Cheney MD Allergies, Adverse Reactions, Alerts Substance Reaction [...] 07/24/22 8:20:00 EST, Route to Pharmacy Electronically, [facility], Partial fill upon patient [...] a schedule II opioid drug. Start Date: 2/7/23 Status: Ordered Linzess = 145 mcg, By [...] PCP Address: Address: [address] [place] [address]- [place] Name: Denise Hurt RN Position: [facility] RN Member Role: Primary Care Nurse Name: Katie Berger RN Position: [facility] SN RN Member Role: Primary Care Nurse Name: John Gtz RN Position: S RN Member Role: Primary Care Nurse Name: Sugar Powell RN Position: [facility] RN Member Role: Primary Care Nurse Name: Jyoti Peraza RN Position: [facility] RN Member Role: Primary Care Nurse Care Team Related Persons Name: LISA SAHUSALVADORFELICIA Address: [address] Address: home [address] [place] [address] [place] Name: SAHUJOSE Address: [address] Address: home [address] [place] [address] [place] Name: DENNISE MCCLAIN Address: [place] [address]
[2023-12-25 03:17] LABS: Basophils Percent Auto 0.4 % (0-2); Eosinophils Absolute Auto 0.2 X10*3/uL (0.0-0.4); Eosinophils Percent Auto 2.2 % (0-4); Hematocrit 33.2 % (37.0-47.0); Hemoglobin 10.9 g/dl (12.0-16.0); Imm Gran Abs Auto 0.03 X10*3/uL (0.00-0.03); Imm Gran Pct Auto 0.4 % (0.0-0.4); Lymphocytes Absolute Auto 1.2 X10*3/uL (1.2-4.9); Lymphocytes Percent Auto 16.2 % (20-40); Mean Corpuscular HGB Conc 32.8 g/dl (31.0-35.0); Mean Corpuscular Hemoglobin 27.9 pg (27.0-33.0); Mean Corpuscular Volume 85.1 fL (80.0-98.0); Mean Platelet Volume 10.3 fL (9.4-12.3); Monocytes Absolute Auto 0.5 X10*3/uL (0.1-1.2); Neutrophils Absolute Auto 5.4 x10*3/uL (2.0-8.3); Neutrophils Percent Auto 73.8 % (45-73); Platelet Count 267 X10*3/uL (160-400); Red Cell Distribution Width 14.4 % (11.0-16.0); White Blood Count 7.3 X10*3/uL (4.8-10.8)
[2023-12-25 03:34] LABS: Alanine Aminotransferase 21 U/L (0-31); Albumin Level 4.1 g/dL (3.5-5.0); Alkaline Phosphatase 99 U/L (39-117); Anion Gap 13 (12-20); Aspartate Amino Transferase 15 U/L (5-31); Bilirubin Total 0.2 mg/dL (0.0-1.0); Blood Urea Nitrogen 9 mg/dL (9-16); Calcium 9.4 mg/dL (8.4-10.2); Carbon Dioxide 23 mmol/L (22-29); Chloride 112 mmol/L (96-108); Creatinine Clr Calc Pharmacy 116.7; Estimated Glomerular Filt Rate > 60; Glucose Random 128 mg/dL (60-115); Potassium 3.9 mmol/L (3.3-5.1); Sodium 144 mmol/L (135-145); Total Protein 7.3 g/dL (6.5-8.0)
[2023-12-25 06:00] VITALS: BP 109/59; PULSE 57; RESP 16; TEMP 36.8; O2SAT 97
[2023-12-25 06:09] LABS: Appearance Urine Clear; Color Urine Yellow; Glucose Urine UA Negative (Negative); Leukocyte Esterase Urine Trace (Negative); Nitrite Urine Negative (Negative); PH 7.5 (5.0-9.0); UMIC TRIGGER UACC YES; Urine Blood Small (1+) (Negative); Urine Ketones Negative (Negative); Urine Protein Negative (Neg-Trace)
[2023-12-25 06:17] LABS: Bacteria Urine None Seen (None Seen); WBC Urine 0-5 /HPF (0-5)
== END 2023-12-25 06:25 | disposition left against medical advice (07) ==
PROVIDERS: Emergency Provider Emergency Medicine; PCP Internal Medicine
DX: R11.2 Nausea with vomiting, unspecified (principal)
CPT/HCPCS: 36415; 80053; 81001; 85025; 99281; 99283

== ENCOUNTER 2023-12-29 07:49 | Inpatient (IN) | payer OTHER, SELFPAY ==
[2023-12-29] VITALS (7 sets, daily range): BP systolic 139–163; BP diastolic 65–92; PULSE 57–67; RESP 16–20; TEMP 36.3–36.7; O2SAT 97–100; BMI 34.8; BMI 35.8
--- NOTE | ~2023-12-29 | FL_ITS ---
EXAMINATION: XR FLUOROSCOPY WITH IMAGES CLINICAL INFORMATION: Left stent. COMPARISON: None available. TECHNIQUE: Fluoroscopy Supervised By: Dr. Rose Mary Garza. Fluoroscopy Time: 7.8. Cumulative Dose: 3.69 mGy. Images: 5. FINDINGS: Fluoroscopic guidance provided for procedure supervised by referring physician. Images provided demonstrate contrast within a renal collecting system and ureter as well as stent. Please refer to procedure report for detailed evaluation. FL/FL guidance in OR IMPRESSION: Fluoroscopic guidance provided for procedure supervised by referring physician.
--- NOTE | ~2023-12-29 | CT_ITS ---
EXAMINATION: CT ABDOMEN AND PELVIS WITHOUT CONTRAST CLINICAL INFORMATION: Left flank pain. History of stones. COMPARISON: CT scan of the abdomen and pelvis dated 07/10/2023 and 05/30/2023. TECHNIQUE: Multidetector volumetric imaging was performed from the superior aspect of the liver through the pubic symphysis. Sagittal and coronal reformatted images were obtained on the technologist workstation. This CT examination was performed using dose optimization techniques as appropriate, variously including the following: *Automated exposure control *Adjustment of mA and/or kV according to patient size (this includes techniques or standardized protocols for targeted exams where dose is matched to indication/reason for exam; i.e. extremities or head) *Use of iterative reconstruction technique DLP: 737.75 mGy-cm. FINDINGS: LUNG BASES: The visualized lung bases are unremarkable. LIVER, GALLBLADDER, AND BILIARY TREE: The liver is normal in size, shape, and attenuation. No focal hepatic lesion on noncontrast imaging. No biliary ductal dilatation is present. The gallbladder is surgically absent. PANCREAS: Unremarkable on noncontrast imaging. SPLEEN: Unremarkable. ADRENAL GLANDS: Unremarkable on noncontrast imaging. KIDNEYS AND URETERS: There is a faint punctate 1 to 2 mm nonobstructing upper and lower pole right renal calcification with pixel attenuation values of up to 86 Hounsfield units and a 2 mm mid left renal nonobstructing calcification with pixel attenuation values of up to 174 Hounsfield units. The left kidney is asymmetrically mildly enlarged. There is mild left-sided hydronephrosis due to a 0.8 x 0.6 cm obstructing calcification at the left ureteropelvic junction with mean attenuation values of 594 Hounsfield units. The left ureter distal to this calcification is completely decompressed and no definite additional ureteral calculi are seen, though the most distal aspect of the left ureter is completely obscured by extensive beam hardening artifact related to bilateral hip arthroplasties. No right-sided hydronephrosis or hydroureter seen. No perinephric stranding. BLADDER: Unremarkable. PELVIC VISCERA: Unremarkable. Small amount of free fluid in the right adnexal region, consistent with physiologic findings in this young menstruating woman. GASTROINTESTINAL TRACT: A few scattered colonic diverticula are seen with no evidence of acute diverticulitis. The small and large bowel are otherwise unremarkable. The appendix is unremarkable. There is very subtle hazy groundglass opacity and small subcentimeter sized lymph nodes seen in the upper abdominal small bowel mesentery, raising the suspicion of subtle mild mesenteritis. ABDOMINAL WALL: Diastases of the rectus abdominis muscles is seen with a small fat-containing umbilical hernia. LYMPH NODES, VASCULAR: Unremarkable. OSSEOUS STRUCTURES: Bilateral total hip arthroplasties in place and anatomic in alignment with no evidence of hardware failure or [place] bone fracture.. CT/CT abdomen pelvis wo IV con IMPRESSION: * Mild left-sided hydronephrosis due to an obstructing 0.8 x 0.6 cm densely calcified stone at the left ureteropelvic junction. * Other bilateral nonobstructing renal calculi are seen. * No right-sided hydronephrosis or hydroureter. * Mild colonic diverticulosis. * Subtle hazy groundglass opacity and small subcentimeter sized lymph nodes in the upper abdominal small bowel mesentery, raising the suspicion of subtle mild mesenteritis. * Small fat-containing umbilical hernia. * Status post cholecystectomy.
[2023-12-29 08:07] LABS: MANUAL DIFF FLAG NO
[2023-12-29 08:08] LABS: Basophils Percent Auto 0.6 % (0-2); Eosinophils Absolute Auto 0.2 X10*3/uL (0.0-0.4); Eosinophils Percent Auto 4.4 % (0-4); Hematocrit 34.7 % (37.0-47.0); Hemoglobin 11.5 g/dl (12.0-16.0); Imm Gran Abs Auto 0.02 X10*3/uL (0.00-0.03); Imm Gran Pct Auto 0.4 % (0.0-0.4); Lymphocytes Absolute Auto 1.7 X10*3/uL (1.2-4.9); Lymphocytes Percent Auto 30.9 % (20-40); Mean Corpuscular HGB Conc 33.1 g/dl (31.0-35.0); Mean Corpuscular Hemoglobin 28.1 pg (27.0-33.0); Mean Corpuscular Volume 84.8 fL (80.0-98.0); Mean Platelet Volume 10.8 fL (9.4-12.3); Monocytes Absolute Auto 0.5 X10*3/uL (0.1-1.2); Monocytes Percent Auto 8.3 % (2-11); Neutrophils Percent Auto 55.4 % (45-73); Platelet Count 277 X10*3/uL (160-400); Red Blood Count 4.09 X10*6/uL (4.20-5.50); Red Cell Distribution Width 13.9 % (11.0-16.0); White Blood Count 5.4 X10*3/uL (4.8-10.8)
--- NOTE | 2023-12-29 08:08 | ED.ABDPAIN ---
HPI - Abdominal Pain General Chief Complaint: Abdominal Pain Stated Complaint: vomiting, back pain Time Seen by Provider: 12/29/23 08:04 Source: patient and old records reviewed Mode of arrival: ambulatory Limitations: no limitations History of Present Illness ED Provider: MONICA HPI narrative: 33 yo female with PMH of asthma-COPD overlap syndrome, obesity, anxiety, anemia, GERD, delayed gastric emptying, HTN, depression, gastritis, PCOS, hyperlipidemia, migraines here with c/o 5 days of L flank pain, constipation despite Linzess, n/v. She notes no urinary symptoms. Feels like a kidney stone. + flatus did have small BM yesterday. MD elicited complaint: flank pain Pertinent past history: kidney stones Onset (ago): day(s) (5) Pain Consistency: constant Location: L flank Severity: severe Quality: stabbing Radiation: none Migration to: no migration Exacerbating factors: nothing Relieving factors: nothing Context: history of similar episodes Associated symptoms: nausea, vomiting and constipation Related Data Home Medications ?Medication ?Instructions ?Recorded ?Confirmed sertraline 100 mg tablet 100 mg PO DAILY 08/22/20 10/17/23 bupropion HCl 150 mg 24 hr tablet, 150 mg PO QAM 05/03/21 10/17/23 extended release celecoxib 200 mg capsule 200 mg PO DAILY 11/15/23 morphine 15 mg immediate release 15 mg PO BID PRN 11/15/23 tablet norethindrone acetate 5 mg tablet 5 mg PO ONCE 11/15/23 Previous Rx's ?Medication ?Instructions ?Recorded lancets 28 gauge (FreeStyle #100 ea 06/27/20 Lancets) FreeStyle Lite Strips (blood sugar 4 strip miscellaneous QID 30 days 07/20/20 diagnostic) #100 strips hydroxyzine HCl 25 mg tablet See Rx Instructions .Route 04/04/22 .COMPLEX anxiety 30 days #180 tabs amlodipine 5 mg tablet (Norvasc) 5 mg PO DAILY #30 tabs 05/13/22 BEDSIDE COMMODE #1 ea 05/14/22 FRONT-WHEELED WALKER #1 ea 05/14/22 TUB SEAT with BACK #1 ea 05/14/22 gabapentin 400 mg capsule 400 mg PO TID 30 days #90 caps 10/17/22 nebulizers (Compact Compressor #1 ea 02/28/23 Nebulizer) albuterol sulfate 90 mcg/actuation 2 inh inhalation Q4-6H PRN 05/23/23 breath activated powder inhaler shortness of breath or wheezing #1 ea pyridoxine (vitamin B6) 100 mg 100 mg PO DAILY 90 days #90 tabs 07/09/23 tablet cyclobenzaprine 10 mg tablet 10 mg PO TID PRN muscle spasm #7 07/12/23 tabs lidocaine 5 % topical patch 2 patch topical DAILY #30 ea 07/14/23 (Lidoderm) morphine 15 mg immediate release 15 mg PO Q6H PRN pain #20 tabs 07/14/23 tablet budesonide-formoterol HFA 160 2 puff inhalation Q12H #10.2 grams 09/02/23 mcg-4.5 mcg/actuation aerosol inhaler (Symbicort) albuterol sulfate 2.5 mg/3 mL 2.5 mg (3 mL) inhalation Q6H #75 mL 09/10/23 (0.083 %) solution for nebulization labetalol 100 mg tablet 100 mg PO BID 90 days #180 tabs 09/16/23 dexlansoprazole 60 mg 60 mg PO DAILY #90 caps 11/15/23 capsule,biphase delayed release (Dexilant) linaclotide 290 mcg capsule 290 mcg PO QAM 30 days #30 caps 11/15/23 (Linzess) icjbjf-bqgvelgg-gynukgo 1 cap PO QID #120 caps 11/15/23 36,000-114,000-180,000 unit capsule,delay rel (Creon) metoclopramide HCl 5 mg tablet 5 mg PO QIDACHS #120 tabs 11/15/23 (Reglan) ibuprofen 800 mg tablet (IBU) 800 mg PO Q8H PRN pain/headaches 12/27/23 30 days #90 tabs Allergies Allergy/AdvReac Type Severity Reaction Status Date / Time amoxicillin [AMOXICILLIN] Allergy Intermediate NAUSEA & Verified 12/29/23 07:56 VOMITING, stomach pain, vomiting, stomach upset topiramate [From TOPAMAX] Allergy Intermediate TREMORS, Verified 12/29/23 07:56 nausea and vomiting latex [LATEX] Allergy Mild RASH Verified 12/29/23 07:56 medroxyprogesterone Allergy Mild RASH Verified 12/29/23 07:56 [From PROVERA] lactose Allergy bloating , Verified 12/29/23 07:56 diarrhea Review of Systems Review of Systems Constitutional : No Weight loss, No Fever, No Chills ENT/Mouth : No sore throat, No Rhinorrhea Eyes: No Swelling, No Redness Cardiovascular : No Chest Pain, No SOB, NoEdema Respiratory : No Cough, No Sputum, No Wheezing Gastrointestinal : Positive Nausea, Positive Vomiting, no Diarrhea, positive abdominal Pain, No Hematochezia, No Melena, pos constipation Genitourinary : No Dysuria, No Urinary Frequency, No Hematuria, No Urgency Musculoskeletal : No joint pain, No Myalgias, No Joint Swelling Skin : No Skin Lesions, No rash Neuro : No Weakness, No Numbness, No Dizziness, No Headache Psych : No Anxiety/Panic, No Depression All other systems reviewed and are negative. [facility] Past Medical History Attestation statement: The following information was validated with the patient. Source: old records reviewed Medical History Gallstones Annual physical exam Encounter for preoperative pulmonary examination Benign essential hypertension Thoracic back pain Depression Tension headache Myofascial pain Sacroiliac joint pain Bilateral primary osteoarthritis of hip Post depression BMI 39.0-39.9,adult Trigger finger of left thumb Trigger finger of right thumb Insomnia Morbid obesity with BMI of 40.0-44.9, adult Smoker Carpal tunnel syndrome, bilateral Personal history of gestational diabetes Obesity (BMI 30-39.9) Supervision of other high risk , antepartum Supervision of other normal PCOS (polycystic ovarian syndrome) control counseling Migraines Vulvar cyst Anxiety Hyperlipemia Fibromyalgia Rheumatoid arthritis Surgical History S/P laparoscopic cholecystectomy (03/06/23) H/O tubal ligation History of hip replacement, total History of esophagogastroduodenoscopy (EGD) History of removal of cyst History of tonsillectomy and adenoidectomy Family History Family History Father Medical history unknown Mother Diabetes Hypertension Maternal Aunt Breast cancer Ovarian cancer Mental health disorder Maternal Grandmother Diabetes Hypertension Social History Social History Household Members: Spouse and Children Housing: Condominium Alcohol intake: current Alcohol intake frequency: holidays/special occasions only Patient Tobacco Use Status: Former Tobacco user e-Cigarette/Vaping Use: Never Used Second Hand Smoke Exposure: No Substance Use Type: Marijuana Advance Directives: No Advance Directives Information Provided: No service: No Current occupational status: disabled Sexual orientation: Straight/Heterosexual Gender identity: Female Cognitive needs: No Hearing needs: No Vision needs: Yes Physical Exam ED Vital Signs: Vital Signs - 24 hr 12/29/23 07:54 12/29/23 08:00 Temperature 98.1 F 98.0 F Pulse Rate 64 57 Respiratory Rate 16 19 Blood Pressure 152/89 H 139/78 Pulse Oximetry 100 97 Oxygen Delivery Method Room Air Room Air BMI result Body Mass Index 34.8 Appearance: Alert. Oriented X3. pacing appears in pain mild acute distress. Eyes: Pupils equal, round and reactive to light. ENT: Pharynx normal. Neck: Normal inspection. Neck supple. CVS: Normal heart rate and rhythm. Pulses normal. Respiratory: No respiratory distress. Breath sounds normal. Abdomen: Soft and L sided pain with mild L CVA ttp Skin: Skin warm and dry. Normal skin color. Normal skin turgor. Extremities: No lower extremity edema. Neuro: Oriented X 3. No motor deficit. No sensory deficit. Course Course Course Narrative: pain improved then came back again repeat dilaudid ordered Medical Decision Making Medical Decision Making [facility] Narrative: 33 yo female with PMH of asthma-COPD overlap syndrome, obesity, anxiety, anemia, GERD, delayed gastric emptying, HTN, depression, gastritis, PCOS, hyperlipidemia, migraines here with c/o 5 days constipation but + flatus, n/v L flank pain concerning for kidney stones. She has no fevers or urinary symptoms. At this time will obtain labs, UA, CT scan for renal colic, SBO, constipation, colitis. IVF, IV morphine, nausea medications ordered. Differential Diagnosis Differential Diagnoses: The differential diagnosis associated with the presentation includes constipation, renal colic, colitis Admission/Observation Consideration of admission/observation: Escalation of care including admission/observation considered unable to get patient comfortable despite multiple medications Dr. Wisdom to admit for pain management at this time Consult Healthcare Provider Management of the patient was discussed with: Beater Engineer message sent to Dr. Wisdom [id number] Lab Data [facility] Lab Attestation statement: I reviewed the patient's lab results. 12/29/23 08:02 12/29/23 08:02 Labs: Lab Results 12/29/23 12/29/23 Range/Units 08:02 08:20 WBC 5.4 (4.8-10.8) X10*3/uL RBC 4.09 L (4.20-5.50) X10*6/uL Hgb 11.5 L (12.0-16.0) g/dl Hct 34.7 L (37.0-47.0) % MCV 84.8 (80.0-98.0) fL MCH 28.1 (27.0-33.0) pg MCHC 33.1 (31.0-35.0) g/dl RDW 13.9 (11.0-16.0) % Plt Count 277 (160-400) X10*3/uL MPV 10.8 (9.4-12.3) fL Immature Gran % (Auto) 0.4 (0.0-0.4) % Neut % (Auto) 55.4 (45-73) % Lymph % (Auto) 30.9 (20-40) % [place] % (Auto) 8.3 (2-11) % Eos % (Auto) 4.4 H (0-4) % Baso % (Auto) 0.6 (0-2) % Lymph # (Auto) 1.7 (1.2-4.9) X10*3/uL [place] # (Auto) 0.5 (0.1-1.2) X10*3/uL Eos # (Auto) 0.2 (0.0-0.4) X10*3/uL Baso # (Auto) 0.0 (0.0-0.2) X10*3/uL Abs Immat Gran (auto) 0.02 (0.00-0.03) X10*3/uL Absolute Neuts (auto) 3.0 (2.0-8.3) x10*3/uL Absolute Nucleated RBC 0.000 (0.0-0.012) X10*3/uL Nucleated RBC % (auto) 0.0 (0.0-0.2) /100WBC Sodium 141 (135-145) mmol/L Potassium 3.8 (3.3-5.1) mmol/L Chloride 111 H (96-108) mmol/L Carbon Dioxide 20 L (22-29) mmol/L Anion Gap 14 (12-20) BUN 8 L (9-16) mg/dL Creatinine 0.68 (0.5-1.4) mg/dL Estim Creat Clear Calc 128.2 Estimated GFR > 60 Random Glucose 99 (60-115) mg/dL Calcium 8.9 (8.4-10.2) mg/dL Total Bilirubin 0.3 (0.0-1.0) mg/dL Direct Bilirubin < 0.1 (0.0-0.5) mg/dL AST 14 (5-31) U/L ALT 15 (0-31) U/L Alkaline Phosphatase 97 (39-117) U/L Total Protein 7.2 (6.5-8.0) g/dL Albumin 4.0 (3.5-5.0) g/dL Lipase 27 (8-78) U/L Beta HCG, Quant < 2 mIU/mL Urine Color Yellow Urine Appearance Cloudy Urine pH 7.5 (5.0-9.0) Ur Specific [place] 1.010 (1.005-1.025) Urine Protein Trace (Neg-Trace) mg/dL Urine Glucose (UA) Negative (Negative) mg/dL Urine Ketones Negative (Negative) mg/dL Urine Blood Moderate (2+) H (Negative) Urine Nitrite Negative (Negative) Ur Leukocyte Esterase Large (3+) H (Negative) Urine RBC >20 H (0-2) /HPF Urine WBC >50 H (0-5) /HPF Ur Squamous Epith Cells 11-20 (0-2) /HPF Calcium Oxalate Crystal Present Urine Bacteria 3+ (None Seen) Hyaline Casts 0-2 (0-2) /LPF Urine Opiates Screen Not Detected (Not Detect) Ur Buprenorphine Scrn Not Detected (Not Detect) ng/mL Ur Oxycodone Screen Not Detected (Not Detect) ng/mL Urine Methadone Screen Not Detected (Not Detect) ng/mL Urine Fentanyl Screen Not Detected (Not Detect) Ur Barbiturates Screen Not Detected (Not Detect) Ur Phencyclidine Scrn Not Detected (Not Detect) Ur Amphetamines Screen Not Detected (Not Detect) U Benzodiazepines Scrn Not Detected (Not Detect) Urine Cocaine Screen Not Detected (Not Detect) U Marijuana (THC) Screen POSITIVE H (Not Detect) Independent Interpretation I performed an independent interpretation of an: CT Scan (obstructing prox UPJ stone) Radiology Impression Discussion of test interpretation with radiology: I have reviewed the radiologist's reading. Independent Historian Clinical information obtained from an independent historian. History obtained from or confirmed by: Spouse External Record Review External record reviewed: Inpatient record Medications Administered Generic Name Dose Route Start Last Admin Trade Name Freq PRN Reason Stop Dose Admin Levofloxacin 250 mg in 50 mls @ 50 mls/hr 12/29/23 12:00 12/29/23 11:53 Levaquin IV 12/29/23 12:59 50 mls/hr ONCE ONE Administration Discontinued Medications Generic Name Dose Route Start Last Admin Trade Name Freq PRN Reason Stop Dose Admin Diphenhydramine HCl 25 mg 12/29/23 08:22 12/29/23 08:32 Diphenhydramine Hcl 50 Mg/Ml Vial IVPUSH 12/29/23 08:23 25 mg ONCE ONE Administration Hydromorphone HCl 0.5 mg 12/29/23 10:43 12/29/23 10:51 Hydromorphone Hcl 0.5 Mg/0.5 Ml Syringe IVPUSH 12/29/23 10:44 0.5 mg ONCE ONE Administration Protocol Sodium Chloride 1,000 mls @ 999 mls/hr 12/29/23 08:22 12/29/23 09:50 Ns IV 12/29/23 09:22 Infused .Q1H1M ONE Infusion Levofloxacin 500 mg in 100 mls @ 100 mls/hr 12/29/23 11:00 12/29/23 11:53 Levaquin IV 12/29/23 11:59 Infused ONCE ONE Infusion Ketorolac Tromethamine 15 mg 12/29/23 10:43 12/29/23 10:50 Ketorolac Tromethamine 15 Mg/Ml Vial IVPUSH 12/29/23 10:44 15 mg ONCE ONE Administration Metoclopramide HCl 10 mg 12/29/23 08:22 12/29/23 08:32 Metoclopramide Hcl 10 Mg/2 Ml Vial IVPUSH 12/29/23 08:23 10 mg ONCE ONE Administration Morphine Sulfate 4 mg 12/29/23 08:22 12/29/23 08:32 Morphine Sulfate 4 Mg/Ml Cartridge IVPUSH 12/29/23 08:23 4 mg ONCE ONE Administration Protocol Critical Care Time Critical Care Time Critical Care Time: Yes Total Critical Care Time: 45 Attestation: review of records, medical consult, repeat IV dilaudid and morphine for pain, admission I attest to this time spent taking care of the patient Discharge Plan Discharge Clinical Impression: Ureterolithiasis, Acute UTI, Nausea & vomiting Patient Disposition: Admitted As Inpatient Prescriptions: No Action FreeStyle Lite Strips Strip 4 strip miscellaneous QID 30 Days Qty: 100 1RF (DME) FRONT-WHEELED WALKER See Rx Instructions .Route .MEDSUPPLY Qty: 1 0RF Rx Instructions: As directed (DME) TUB SEAT with BACK See Rx Instructions .Route .MEDSUPPLY Qty: 1 0RF Rx Instructions: As directed (DME) BEDSIDE COMMODE See Rx Instructions .Route .MEDSUPPLY Qty: 1 0RF Rx Instructions: As directed gabapentin 400 mg capsule 400 mg PO TID 30 Days Qty: 90 3RF Rx Instructions: 1 capsule Orally Three times a day budesonide-formoterol [Symbicort] 160-4.5 mcg/actuation HFA aerosol inhaler 2 puff inhalation Q12H Qty: 10.2 3RF labetalol 100 mg tablet 100 mg PO BID 90 Days Qty: 180 1RF ibuprofen [IBU] 800 mg tablet 800 mg PO Q8H PRN (Reason: pain/headaches) 30 Days Qty: 90 0RF Rx Instructions: Take with food amlodipine [Norvasc] 5 mg tablet 5 mg PO DAILY Qty: 30 0RF albuterol sulfate 90 mcg/actuation aerosol powdr breath activated 2 inh inhalation Q4-6H PRN (Reason: shortness of breath or wheezing) Qty: 1 0RF cyclobenzaprine 10 mg tablet 10 mg PO TID PRN (Reason: muscle spasm) Qty: 7 0RF lidocaine [Lidoderm] 5 % adhesive patch,medicated 2 patch topical DAILY Qty: 30 0RF Rx Instructions: leave on most painful area for up to 12 hrs morphine 15 mg tablet 15 mg PO Q6H PRN (Reason: pain) Qty: 20 0RF Rx Instructions: Partial Fill upon patient request. sertraline 100 mg tablet 100 mg PO DAILY hydroxyzine HCl 25 mg tablet See Rx Instructions .ROUTE .COMPLEX 30 Days Qty: 180 3RF Rx Instructions: 1 to 2 tablets 3 times a day as needed for anxiety; (DME) nebulizers [Compact Compressor Nebulizer] Misc See Rx Instructions .Route Qty: 1 0RF Rx Instructions: As directed (DME) lancets [FreeStyle Lancets] 28 gauge misc See Rx Instructions .ROUTE .MEDSUPPLY Qty: 100 1RF Rx Instructions: 4 times/day bupropion HCl 150 mg tablet extended release 24 hr 150 mg PO QAM pyridoxine (vitamin B6) 100 mg tablet 100 mg PO DAILY 90 Days Qty: 90 1RF norethindrone acetate 5 mg tablet 5 mg PO ONCE albuterol sulfate 2.5 mg /3 mL (0.083 %) solution for nebulization 2.5 mg inhalation Q6H Qty: 75 0RF celecoxib 200 mg capsule 200 mg PO DAILY morphine 15 mg tablet 15 mg PO BID PRN Linzess 290 mcg capsule 290 mcg PO QAM 30 Days Qty: 30 6RF Creon 36,000-114,000- 180,000 unit capsule,delayed release(DR/EC) 1 cap PO QID Qty: 120 6RF Rx Instructions: administer with meals and/or snacks metoclopramide HCl [Reglan] 5 mg tablet 5 mg PO QIDACHS Qty: 120 6RF Dexilant 60 mg capsule,biphase delayed releas 60 mg PO DAILY Qty: 90 2RF Print Language: German
[2023-12-29 08:24] LABS: Anion Gap 14 (12-20); Blood Urea Nitrogen 8 mg/dL (9-16); Calcium 8.9 mg/dL (8.4-10.2); Carbon Dioxide 20 mmol/L (22-29); Chloride 111 mmol/L (96-108); Creatinine Clr Calc Pharmacy 128.2; Estimated Glomerular Filt Rate > 60; Glucose Random 99 mg/dL (60-115); Potassium 3.8 mmol/L (3.3-5.1); Sodium 141 mmol/L (135-145)
[2023-12-29 08:32] LABS: Appearance Urine Cloudy; Color Urine Yellow; Glucose Urine UA Negative (Negative); Leukocyte Esterase Urine Large (3+) (Negative); Nitrite Urine Negative (Negative); PH 7.5 (5.0-9.0); UMIC TRIGGER UACC YES; Urine Blood Moderate (2+) (Negative); Urine Ketones Negative (Negative); Urine Protein Trace mg/dL (Neg-Trace)
[2023-12-29] MEDS: Metoclopramide HCl 10 MG/2 ML VIAL IVPUSH (08:32)
[2023-12-29] MEDS: diphenhydrAMINE HCL 50 MG/ML VIAL 25 MG IVPUSH (08:32)
[2023-12-29] MEDS: Morphine Sulfate 4 MG/ML CARTRIDGE IVPUSH (08:32)
[2023-12-29] MEDS: 0.9 % Sodium Chloride 1,000 ML 999 ML IV (08:33)
[2023-12-29 08:40] LABS: Amphetamine Screen Urine Not Detected (Not Detect); Barbiturates, Urine Not Detected (Not Detect); Benzodiazepines Screen Urine Not Detected (Not Detect); Buprenorphine Scr Not Detected (Not Detect); Cannabinoid Screen Urine POSITIVE (Not Detect); Cocaine Screen Urine Not Detected (Not Detect); Fentanyl, urine Not Detected (Not Detect); Methadone Screen, Urine Not Detected (Not Detect); Opiate Screen Urine Not Detected (Not Detect); Oxycodone Screen Urine Not Detected (Not Detect); Phencyclidine Screen Urine Not Detected (Not Detect)
[2023-12-29 08:45] LABS: Bacteria Urine 3+ (None Seen); Calcium Oxalate Crystals Urine Present; Hyaline Casts Urine 0-2 /LPF (0-2); RBC Urine >20 /HPF (0-2); UACC Culture Trigger YES; WBC Urine >50 /HPF (0-5)
[2023-12-29 09:27] LABS: Alanine Aminotransferase 15 U/L (0-31); Alkaline Phosphatase 97 U/L (39-117); Aspartate Amino Transferase 14 U/L (5-31); Bilirubin Direct < 0.1 mg/dL (0.0-0.5); Bilirubin Total 0.3 mg/dL (0.0-1.0); Lipase 27 U/L (8-78); Total Protein 7.2 g/dL (6.5-8.0)
[2023-12-29 09:39] LABS: HCG Quantitative < 2 mIU/mL
[2023-12-29] MEDS: Ketorolac Tromethamine 15 MG/ML VIAL IVPUSH (10:50)
[2023-12-29] MEDS: HYDROmorphone HCl 0.5 MG/0.5 ML SYRINGE IVPUSH ×2 (10:51→12:47)
[2023-12-29] MEDS: levoFLOXacin/D5W 500 MG/100 ML PIGGYBACK 100 MG IV (11:07)
[2023-12-29] MEDS: levoFLOXacin/D5W 250 MG/50 ML PIGGYBACK 50 MG IV (11:53)
[2023-12-29] MEDS: Lactated Ringers 1,000 ML 100 ML IVCONT (14:31)
[2023-12-29] MEDS: ondansetron HCL 4 MG/2 ML VIAL IVPUSH ×2 (14:41→23:54)
--- NOTE | 2023-12-29 14:48 | PC.NURSE ---
Spoke to Urologist Dr. Garza to confirm patient is not going to OR today as Ancef ordered has PACU directions in it. Dr. Garza confirmed patient is not going to OR, patient to get Ancef Q8 for UTI, okay'd to give ancef now and q8 going forward, will amend order to remove PACU directions.
--- NOTE | 2023-12-29 16:27 | PHA.MEDREC ---
Pharmacy Consult ? Medication Reconciliation Pharmacy has completed the medication reconciliation.
[2023-12-29] MEDS: HYDROmorphone HCl 2 MG TABLET PO ×2 (16:54→20:30)
--- NOTE | 2023-12-29 17:17 | PM.HPGS ---
History of Present Illness History of Present Illness Date of Service: 12/30/23 Chief complaint: kidney stone, uti Narrative: Gabriella Sterling is a 33 year old female h/o of nephrolithiasis admitted due to Left obstructing UPJ stone and left flank pain. UA suggestive of UTI. CTAP: B/L nephrolithiasis, 8 mm Left UPJ stone with left hydro PMFSH Past Medical History Medical History Gallstones Annual physical exam Encounter for preoperative pulmonary examination Benign essential hypertension Thoracic back pain Depression Tension headache Myofascial pain Sacroiliac joint pain Bilateral primary osteoarthritis of hip Post depression BMI 39.0-39.9,adult Trigger finger of left thumb Trigger finger of right thumb Insomnia Morbid obesity with BMI of 40.0-44.9, adult Smoker Carpal tunnel syndrome, bilateral Personal history of gestational diabetes Obesity (BMI 30-39.9) Supervision of other high risk , antepartum Supervision of other normal PCOS (polycystic ovarian syndrome) control counseling Migraines Vulvar cyst Anxiety Hyperlipemia Fibromyalgia Rheumatoid arthritis Family History Family History Father Medical history unknown Mother Diabetes Hypertension Maternal Aunt Breast cancer Ovarian cancer Mental health disorder Maternal Grandmother Diabetes Hypertension Surgical History Surgical History S/P laparoscopic cholecystectomy (03/06/23) H/O tubal ligation History of hip replacement, total History of esophagogastroduodenoscopy (EGD) History of removal of cyst History of tonsillectomy and adenoidectomy Social History Social History Household Members: Significant Other and Children Housing: House Alcohol intake: current Alcohol intake frequency: holidays/special occasions only Patient Tobacco Use Status: Former Tobacco user e-Cigarette/Vaping Use: Never Used Second Hand Smoke Exposure: No Use of substances other than those prescribed or required for medical reasons: Yes Substance Use Type: Marijuana Substance Use Frequency: Chronic Longstanding Currently Displaying Signs/Symptoms of Drug Intoxication Withdrawal: No Advance Directives: No Advance Directives Information Provided: No Do you have a plan to hurt others: No Plan Nutrition Risks: No Nutritional Risk Patient : No service: No Current occupational status: disabled Sexual orientation: Straight/Heterosexual Gender identity: Female Cognitive needs: No Hearing needs: No Vision needs: Yes Meds Allergies Allergy/AdvReac Type Severity Reaction Status Date / Time amoxicillin [AMOXICILLIN] Allergy Intermediate NAUSEA & Verified 12/29/23 07:56 VOMITING, stomach pain, vomiting, stomach upset topiramate [From TOPAMAX] Allergy Intermediate TREMORS, Verified 12/29/23 07:56 nausea and vomiting latex [LATEX] Allergy Mild RASH Verified 12/29/23 07:56 medroxyprogesterone Allergy Mild RASH Verified 12/29/23 07:56 [From PROVERA] lactose Allergy bloating , Verified 12/29/23 07:56 diarrhea Active Medications: Current Medications Acetaminophen (Acetaminophen 325 Mg Tablet) 650 mg PO Q6H PRN PRN Reason: Pain, Mild (Pain Scale 1-3), fever or headache Albuterol Sulfate (Albuterol Sulfate (0.083%) 2.5 Mg/3 Ml Vial.Neb) 2.5 mg INHALE Q6H PRN PRN Reason: Shortness Of Breath Or Wheezing Albuterol Sulfate (Albuterol Sulfate 90 Mcg 8 Gm Inhaler) 2 puff INHALE Q6H PRN PRN Reason: shortness of breath or wheezing Bupropion HCl (Bupropion Hcl Xl 300 Mg Tab.Er.24h) 300 mg PO DAILY MARY Calcium Carbonate (Calcium Carbonate 750 Mg Tab.Chew) 750 mg PO Q4H PRN PRN Reason: Heartburn Fluticasone/Vilanterol (Fluticasone/Vilanterol 200/25 Blst.W.Dev) 1 puff INHALE RDAILY MARY Gabapentin (Gabapentin 400 Mg Capsule) 400 mg PO TID MARY Hydromorphone HCl (Hydromorphone Hcl 1 Mg/Ml Syringe) 0.5 mg IVPUSH Q3H PRN; Protocol PRN Reason: Pain, Severe (Pain Scale 7-10) Hydromorphone HCl (Hydromorphone Hcl 2 Mg Tablet) 2 mg PO Q3H PRN PRN Reason: Pain, Moderate(Pain Scale 4-6) Last Admin: 12/29/23 16:54 Dose: 2 mg Hydroxyzine HCl (Hydroxyzine Hcl 25 Mg Tablet) 25 mg PO DAILY [facility] Lactated Ringer's (Lr) 1,000 mls @ 100 mls/hr IVCONT .Q10H [facility] Last Admin: 12/29/23 14:31 Dose: 100 mls/hr Cefazolin Sodium 1 gm/ Sodium (Chloride) 50 mls @ 100 mls/hr IV Q8H [facility] Labetalol HCl (Labetalol Hcl 100 Mg Tablet) 100 mg PO BID MARY; Protocol Lorazepam (Lorazepam 1 Mg Tablet) 1 mg PO DAILY PRN PRN Reason: Anxiety Magnesium Hydroxide (Milk Of Magnesia 30 Ml Oral.Susp) 30 ml PO DAILY PRN PRN Reason: Constipation Melatonin (Melatonin 3 Mg Tablet) 6 mg PO BEDTIME PRN PRN Reason: Insomnia Metoclopramide HCl (Metoclopramide Hcl 5 Mg Tablet) 5 mg PO BID [facility] Non-Formulary Medication (Linaclotide [Linzess]) 290 mcg PO DAILY [facility] Omeprazole (Omeprazole 40 Mg Capsule.Dr) 40 mg PO DAILY@0630 [facility] Ondansetron HCl (Ondansetron Hcl 4 Mg/2 Ml Vial) 4 mg IVPUSH Q8H PRN PRN Reason: Nausea and Vomiting Last Admin: 12/29/23 14:41 Dose: 4 mg Sertraline HCl (Sertraline Hcl 100 Mg Tablet) 100 mg PO DAILY [facility] Sodium Chloride (0.9 % Sodium Chloride Flush 3 Ml Syringe) 3 ml IVFLUSH QSHIFT [facility] Last Admin: 12/29/23 16:02 Dose: Not Given Home Medications ?Medication ?Instructions ?Recorded ?Confirmed ?Last Taken ?Type sertraline 100 mg tablet 100 mg PO DAILY 08/22/20 12/29/23 12/27/23 History morphine 15 mg immediate release 15 mg PO BID PRN Pain 11/15/23 12/29/23 12/27/23 History tablet acetaminophen 325 mg tablet 650 mg PO Q6H PRN Pain 12/29/23 12/29/23 Unknown History (Tylenol) albuterol sulfate 2.5 mg/3 mL 2.5 mg inhalation Q6H PRN 12/29/23 12/29/23 12/27/23 History (0.083 %) solution for nebulization Shortness Of Breath Or Wheezing albuterol sulfate 90 mcg/actuation 2 inh inhalation Q6H PRN shortness 12/29/23 12/29/23 12/27/23 History breath activated powder inhaler of breath or wheezing bupropion HCl 300 mg 24 hr tablet, 300 mg PO DAILY 12/29/23 12/29/23 12/27/23 History extended release dexlansoprazole 60 mg 60 mg PO DAILY@0630 12/29/23 12/29/23 12/27/23 History capsule,biphase delayed release (Dexilant) hydroxyzine HCl 25 mg tablet 25 mg PO DAILY anxiety 12/29/23 12/29/23 12/27/23 History linaclotide 290 mcg capsule 290 mcg PO DAILY 12/29/23 12/29/23 12/27/23 History (Linzess) vokiut-ncoevene-eemmbqq 1 cap PO DAILY PRN snack 12/29/23 12/29/23 12/27/23 History 36,000-114,000-180,000 unit capsule,delay rel (Creon) yaoxxe-yshyotjg-idczlij 1 cap PO TIDWM 12/29/23 12/29/23 12/27/23 History 36,000-114,000-180,000 unit capsule,delay rel (Creon) lorazepam 1 mg tablet 1 mg PO DAILY PRN Anxiety 12/29/23 12/29/23 12/27/23 History metoclopramide HCl 5 mg tablet 5 mg PO BID 12/29/23 12/29/23 12/27/23 History (Reglan) Physical Exam Vital Signs: Vital Signs: Last Vital Signs Temp 97.9 F 12/29/23 15:51 Pulse 59 12/29/23 15:51 Resp 16 12/29/23 15:51 BP 139/65 12/29/23 15:51 Pulse Ox 98 12/29/23 15:51 O2 Del Method Room Air 12/29/23 15:51 BMI result Body Mass Index 34.8 Const: General: cooperative, healthy appearing and no acute distress Orientation/consciousness: patient oriented x3 HEENT: Head: Yes normal to inspection, Yes normocephalic and Yes atraumatic Eyes: Conjunctivae: conjunctivae normal Neck: Neck: Yes normal visual inspection and Yes trachea midline Chest: Chest palpation & inspection: normal inspection of the chest Resp: Effort & Inspection: normal respiratory effort Cardio: Rate: regular rate GI: Inspection: Yes normal to inspection Palpation (GI): Soft to palpation : General: Yes CVA tenderness (left) Back/Spine/Pelvis: Back: CVA tenderness (left) Skin: General skin exam: no rashes or lesions noted Neuro: General: patient oriented x3 Extrem: General: No edema Psych: Appearance: grossly normal Results Results Labs: Short CBC 12/29/23 Range/Units 08:02 WBC 5.4 (4.8-10.8) X10*3/uL Hgb 11.5 L (12.0-16.0) g/dl Hct 34.7 L (37.0-47.0) % Plt Count 277 (160-400) X10*3/uL BMP 12/29/23 08:02 Sodium 141 Potassium 3.8 Chloride 111 H Carbon Dioxide 20 L BUN 8 L Creatinine 0.68 Calcium 8.9 Liver Function 12/29/23 Range/Units 08:02 Total Bilirubin 0.3 (0.0-1.0) mg/dL Direct Bilirubin < 0.1 (0.0-0.5) mg/dL AST 14 (5-31) U/L ALT 15 (0-31) U/L Alkaline Phosphatase 97 (39-117) U/L Albumin 4.0 (3.5-5.0) g/dL Urine 12/29/23 Range/Units 08:20 Urine Color Yellow Urine Appearance Cloudy Urine pH 7.5 (5.0-9.0) Ur Specific Mathias 1.010 (1.005-1.025) Urine Protein Trace (Neg-Trace) mg/dL Urine Glucose (UA) Negative (Negative) mg/dL Additional studies: Date of Service: 12/29/23 EXAMINATION: CT ABDOMEN AND PELVIS WITHOUT CONTRAST CLINICAL INFORMATION: Left flank pain. History of stones. COMPARISON: CT scan of the abdomen and pelvis dated 07/10/2023 and 05/30/2023. TECHNIQUE: Multidetector volumetric imaging was performed from the superior aspect of the liver through the pubic symphysis. Sagittal and coronal reformatted images were obtained on the technologist workstation. This CT examination was performed using dose optimization techniques as appropriate, variously including the following: *Automated exposure control *Adjustment of mA and/or kV according to patient size (this includes techniques or standardized protocols for targeted exams where dose is matched to indication/reason for exam; i.e. extremities or head) *Use of iterative reconstruction technique DLP: 737.75 mGy-cm. FINDINGS: LUNG BASES: The visualized lung bases are unremarkable. LIVER, GALLBLADDER, AND BILIARY TREE: The liver is normal in size, shape, and attenuation. No focal hepatic lesion on noncontrast imaging. No biliary ductal dilatation is present. The gallbladder is surgically absent. PANCREAS: Unremarkable on noncontrast imaging. SPLEEN: Unremarkable. ADRENAL GLANDS: Unremarkable on noncontrast imaging. KIDNEYS AND URETERS: There is a faint punctate 1 to 2 mm nonobstructing upper and lower pole right renal calcification with pixel attenuation values of up to 86 Hounsfield units and a 2 mm mid left renal nonobstructing calcification with pixel attenuation values of up to 174 Hounsfield units. The left kidney is asymmetrically mildly enlarged. There is mild left-sided hydronephrosis due to a 0.8 x 0.6 cm obstructing calcification at the left ureteropelvic junction with mean attenuation values of 594 Hounsfield units. The left ureter distal to this calcification is completely decompressed and no definite additional ureteral calculi are seen, though the most distal aspect of the left ureter is completely obscured by extensive beam hardening artifact related to bilateral hip arthroplasties. No right-sided hydronephrosis or hydroureter seen. No perinephric stranding. BLADDER: Unremarkable. PELVIC VISCERA: Unremarkable. Small amount of free fluid in the right adnexal region, consistent with physiologic findings in this young menstruating woman. GASTROINTESTINAL TRACT: A few scattered colonic diverticula are seen with no evidence of acute diverticulitis. The small and large bowel are otherwise unremarkable. The appendix is unremarkable. There is very subtle hazy groundglass opacity and small subcentimeter sized lymph nodes seen in the upper abdominal small bowel mesentery, raising the suspicion of subtle mild mesenteritis. ABDOMINAL WALL: Diastases of the rectus abdominis muscles is seen with a small fat-containing umbilical hernia. LYMPH NODES, VASCULAR: Unremarkable. OSSEOUS STRUCTURES: Bilateral total hip arthroplasties in place and anatomic in alignment with no evidence of hardware failure or [place] bone fracture.. IMPRESSION: * Mild left-sided hydronephrosis due to an obstructing 0.8 x 0.6 cm densely calcified stone at the left ureteropelvic junction. * Other bilateral nonobstructing renal calculi are seen. * No right-sided hydronephrosis or hydroureter. * Mild colonic diverticulosis. * Subtle hazy groundglass opacity and small subcentimeter sized lymph nodes in the upper abdominal small bowel mesentery, raising the suspicion of subtle mild mesenteritis. * Small fat-containing umbilical hernia. * Status post cholecystectomy. Assessment and Plan (1) Acute UTI: Status: Acute (2) Ureterolithiasis: Status: Acute (3) Hydronephrosis, left: Status: Acute Plan IV Ancef. IVF hydration. NPO past MN, for cystoscopy left ureteral stent tomorrow Quality Stroke Does the patient have a stroke diagnosis?: No VTE Prior VTE?: No VTE Risk Level:: Medical - low VTE Device Contraindication: N/A - Device Ordered VTE Drug Contraindication: N/A - Med Ordered Procedures Date of Service Date of Service: 12/30/23
[2023-12-29] MEDS: Metoclopramide HCl 5 MG TABLET PO (20:30)
[2023-12-29] MEDS: Gabapentin 400 MG CAPSULE PO (20:30)
[2023-12-30] VITALS (14 sets, daily range): BP systolic 121–219; BP diastolic 66–126; PULSE 57–89; RESP 16–21; TEMP 36.2–36.6; O2SAT 98–100
[2023-12-30] MEDS: 0.9 % Sodium Chloride Flush 3 ML SYRINGE IVFLUSH
[2023-12-30] MEDS: HYDROmorphone HCl 1 MG/ML SYRINGE 0.5 MG IVPUSH (03:39)
[2023-12-30] MEDS: Lactated Ringers 1,000 ML 100 ML IVCONT ×2 (03:41→15:00)
[2023-12-30] MEDS: Omeprazole 40 MG CAPSULE.DR PO (06:40)
[2023-12-30] MEDS: Albuterol Sulfate 90 MCG 8 GM INHALER 2 PUFF INHALE (07:34)
[2023-12-30] MEDS: Metoclopramide HCl 5 MG TABLET PO ×2 (07:59→22:36)
[2023-12-30] MEDS: hydrOXYzine HCL 25 MG TABLET PO (07:59)
[2023-12-30] MEDS: buPROPion HCl XL 300 MG TAB.ER.24H PO (07:59)
[2023-12-30] MEDS: Labetalol HCL 100 MG TABLET PO ×2 (07:59→19:56)
[2023-12-30] MEDS: Gabapentin 400 MG CAPSULE PO ×2 (07:59→19:56)
[2023-12-30] MEDS: Sertraline HCL 100 MG TABLET PO (07:59)
--- NOTE | 2023-12-30 08:47 | MHC.CM.PN ---
CM met with Patient and her Boyfriend at bedside. 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 Home/self care is the goal and CM has initiated and will follow for dc planning. PCP is Dr. Jarrod Sherman.
[2023-12-30] MEDS: HYDROmorphone HCl 2 MG TABLET PO ×2 (10:20→19:59)
[2023-12-30] MEDS: Fluticasone/Vilanterol 200/25 BLST.W.DEV 1 PUFF INHALE (11:39)
--- NOTE | 2023-12-30 15:38 | PC.NURSE ---
Patient brought to preop area via bed by environmental issues instructor at 1538. Patient alert and oriented x4, able to follow commands and hold conversation, able to ambulate to bathroom 1 assist with no issues. Arrival BP 156/91, pulse 65, SR on monitor, room air. While waiting in preop, at 1630, patient stated I am having chest pain (patient pointing to center of chest) . Patient denied ever having pain like this, 02/24 currently. BP taken immediately, 196/103. HR 65. Anesthesia Dr. Greenfield called to bedside stat. Patients mental status quickly changed, answers becoming very slow and slurred. Patients eye lids fluttering intermittently. Patient not able to respond to commands. Patient slowly stated my vision is blurry . O2 placed via NC, 2L per Dr. Greenfield. O2 remained 100%, respirations remained easy and regular, SR on monitor, 80's-90's. Repeat BPs taken during this time, remained high (190's/110's), with the highest being 219/126. Dr. Greenfield at bedside and administered multiple doses of hydralizine and fentanyl IV. Stat EKG ordered, results NSR. Dr. Jo paged stat per anesthesia request, came to bedside to assess. Per Dr. Jo, no neurology consult needed, no stroke protocol needed, Dr. Jo to follow patient on floor. Dr. Rausch at bedside, case postponed. New order for PO Maalox and PO Xylocaine to rule out severe acid reflux per Dr. Jo. Patients BP down to 165/80 at 1705. Patient able to answer questions, however speech still slow. Per Dr. Jo, return patient back to room at this time. VSS during transport back to room, BP 165/80, HR 80, NSR on monitor. Extensive phone and bedside report given to Jenny Valdes. Patient transferred via bed with two RNs on the monitor, arrival to room 1710.
--- NOTE | 2023-12-30 16:03 | PC.NURSE ---
Patient arrived to preop with one PRN angio. #20 left AC. Site asymptomatic, flushed well.
[2023-12-30] MEDS: Lactated Ringers 1,000 ML 80 ML IVCONT (16:15)
--- NOTE | 2023-12-30 16:43 | ECG_ITS ---
Test Reason : altered mental status Blood Pressure : / mmHG Vent. Rate : 072 BPM Atrial Rate : 072 BPM P-R Int : 140 ms QRS Dur : 094 ms QT Int : 408 ms P-R-T Axes : 048 025 001 degrees QTc Int : 446 ms Normal sinus rhythm Normal ECG When compared with ECG of 31-AUG-2023 10:57, No significant change was found Referred By: Carolina Greenfield Electronically Signed By:LEANA ÁLVAREZ MD
--- NOTE | 2023-12-30 17:17 | P.CONHOSP_ITS ---
History of Present Illness Data of Consult Service Date: 12/30/23 Primary Care Provider: Jarrod Sherman MD HPI Reason for consult: mental status changes Called to preop area for 33-year-old female scheduled for ureteral stent. Anesthesia noted a drastic change in her presentation; staring not responsive hypertensive and initially complaining of chest pain. Patient admitted yesterday under urology service and no issues up until shortly before her procedure was scheduled. Discussed with Dr. Rausch; will cancel procedure today Review of Systems 2 Review of Systems: admits to chest pain Denies shortness of breath Denies nausea vomiting diarrhea PMFSH Medical History Encounter for preoperative pulmonary examination Benign essential hypertension Gallstones Thoracic back pain Depression Tension headache Myofascial pain Sacroiliac joint pain Bilateral primary osteoarthritis of hip Post depression BMI 39.0-39.9,adult Trigger finger of left thumb Trigger finger of right thumb Insomnia Morbid obesity with BMI of 40.0-44.9, adult Smoker Annual physical exam Carpal tunnel syndrome, bilateral Personal history of gestational diabetes Obesity (BMI 30-39.9) Supervision of other high risk , antepartum Supervision of other normal PCOS (polycystic ovarian syndrome) control counseling Migraines Vulvar cyst Anxiety Hyperlipemia Fibromyalgia Rheumatoid arthritis Family History Father Medical history unknown Mother Diabetes Hypertension Maternal Aunt Breast cancer Ovarian cancer Mental health disorder Maternal Grandmother Diabetes Hypertension Surgical History S/P laparoscopic cholecystectomy (03/06/23) H/O tubal ligation History of hip replacement, total History of esophagogastroduodenoscopy (EGD) History of removal of cyst History of tonsillectomy and adenoidectomy Social History Household Members: Significant Other and Children Housing: House Alcohol intake: current Alcohol intake frequency: holidays/special occasions only Patient Tobacco Use Status: Former Tobacco user e-Cigarette/Vaping Use: Never Used Second Hand Smoke Exposure: No Use of substances other than those prescribed or required for medical reasons: Yes Substance Use Type: Marijuana Substance Use Frequency: Daily Currently Displaying Signs/Symptoms of Drug Intoxication Withdrawal: No Are you DNR?: No Advance Directives: No Advance Directives Information Provided: No Do you have a plan to hurt others: No Plan Nutrition Risks: No Nutritional Risk Patient : No service: No Current occupational status: disabled Sexual orientation: Straight/Heterosexual Gender identity: Female Cognitive needs: No Hearing needs: No Vision needs: Yes Meds Allergies Allergy/AdvReac Type Severity Reaction Status Date / Time amoxicillin [AMOXICILLIN] Allergy Intermediate NAUSEA & Verified 12/30/23 15:43 VOMITING, stomach pain, vomiting, stomach upset topiramate [From TOPAMAX] Allergy Intermediate TREMORS, Verified 12/30/23 15:43 nausea and vomiting latex [LATEX] Allergy Mild RASH Verified 12/30/23 15:43 medroxyprogesterone Allergy Mild RASH Verified 12/30/23 15:43 [From PROVERA] lactose Allergy bloating , Verified 12/30/23 15:43 diarrhea Active Medications: Current Medications Acetaminophen (Acetaminophen 325 Mg Tablet) 650 mg PO Q6H PRN PRN Reason: Pain, Mild (Pain Scale 1-3), fever or headache Albuterol Sulfate (Albuterol Sulfate (0.083%) 2.5 Mg/3 Ml Vial.Neb) 2.5 mg INHALE Q6H PRN PRN Reason: Shortness Of Breath Or Wheezing Albuterol Sulfate (Albuterol Sulfate 90 Mcg 8 Gm Inhaler) 2 puff INHALE Q6H PRN PRN Reason: shortness of breath or wheezing Last Admin: 12/30/23 07:34 Dose: 2 puff Bupropion HCl (Bupropion Hcl Xl 300 Mg Tab.Er.24h) 300 mg PO DAILY [facility] Last Admin: 12/30/23 07:59 Dose: 300 mg Calcium Carbonate (Calcium Carbonate 750 Mg Tab.Chew) 750 mg PO Q4H PRN PRN Reason: Heartburn Fluticasone/Vilanterol (Fluticasone/Vilanterol 200/25 Blst.W.Dev) 1 puff INHALE RDAILY [facility] Last Admin: 12/30/23 11:39 Dose: 1 puff Gabapentin (Gabapentin 400 Mg Capsule) 400 mg PO TID [facility] Last Admin: 12/30/23 16:16 Dose: Not Given Hydromorphone HCl (Hydromorphone Hcl 1 Mg/Ml Syringe) 0.5 mg IVPUSH Q3H PRN; Protocol PRN Reason: Pain, Severe (Pain Scale 7-10) Last Admin: 12/30/23 03:39 Dose: 0.5 mg Hydromorphone HCl (Hydromorphone Hcl 2 Mg Tablet) 2 mg PO Q3H PRN PRN Reason: Pain, Moderate(Pain Scale 4-6) Last Admin: 12/30/23 10:20 Dose: 2 mg Hydroxyzine HCl (Hydroxyzine Hcl 25 Mg Tablet) 25 mg PO DAILY [facility] Last Admin: 12/30/23 07:59 Dose: 25 mg Lactated Ringer's (Lr) 1,000 mls @ 100 mls/hr IVCONT .Q10H [facility] Last Admin: 12/30/23 16:17 Dose: Not Given Cefazolin Sodium 1 gm/ Sodium (Chloride) 50 mls @ 100 mls/hr IV Q8H [facility] Last Admin: 12/30/23 16:14 Dose: 100 mls/hr Lactated Ringer's (Lr) 1,000 mls @ 80 mls/hr IVCONT .[id number] [facility] Last Admin: 12/30/23 16:15 Dose: 80 mls/hr Labetalol HCl (Labetalol Hcl 100 Mg Tablet) 100 mg PO BID [facility]; Protocol Last Admin: 12/30/23 07:59 Dose: 100 mg Lorazepam (Lorazepam 1 Mg Tablet) 1 mg PO DAILY PRN PRN Reason: Anxiety Magnesium Hydroxide (Milk Of Magnesia 30 Ml Oral.Susp) 30 ml PO DAILY PRN PRN Reason: Constipation Melatonin (Melatonin 3 Mg Tablet) 6 mg PO BEDTIME PRN PRN Reason: Insomnia Metoclopramide HCl (Metoclopramide Hcl 5 Mg Tablet) 5 mg PO BID [facility] Last Admin: 12/30/23 07:59 Dose: 5 mg Non-Formulary Medication (Linaclotide [Linzess]) 290 mcg PO DAILY [facility] Omeprazole (Omeprazole 40 Mg Capsule.Dr) 40 mg PO DAILY@0630 [facility] Last Admin: 12/30/23 06:40 Dose: 40 mg Ondansetron HCl (Ondansetron Hcl 4 Mg/2 Ml Vial) 4 mg IVPUSH Q8H PRN PRN Reason: Nausea and Vomiting Last Admin: 12/29/23 23:54 Dose: 4 mg Sertraline HCl (Sertraline Hcl 100 Mg Tablet) 100 mg PO DAILY [facility] Last Admin: 12/30/23 07:59 Dose: 100 mg Sodium Chloride (0.9 % Sodium Chloride Flush 3 Ml Syringe) 3 ml IVFLUSH [facility] Last Admin: 12/30/23 16:16 Dose: Not Given Home Medications ?Medication ?Instructions ?Recorded ?Confirmed ?Last Taken ?Type sertraline 100 mg tablet 100 mg PO DAILY 08/22/20 12/29/23 12/27/23 History morphine 15 mg immediate release 15 mg PO BID PRN Pain 11/15/23 12/29/23 12/27/23 History tablet acetaminophen 325 mg tablet 650 mg PO Q6H PRN Pain 12/29/23 12/29/23 Unknown History (Tylenol) albuterol sulfate 2.5 mg/3 mL 2.5 mg inhalation Q6H PRN 12/29/23 12/29/23 12/27/23 History (0.083 %) solution for nebulization Shortness Of Breath Or Wheezing albuterol sulfate 90 mcg/actuation 2 inh inhalation Q6H PRN shortness 12/29/23 12/29/23 12/27/23 History breath activated powder inhaler of breath or wheezing bupropion HCl 300 mg 24 hr tablet, 300 mg PO DAILY 12/29/23 12/29/23 12/27/23 History extended release dexlansoprazole 60 mg 60 mg PO DAILY@0630 12/29/23 12/29/23 12/27/23 History capsule,biphase delayed release (Dexilant) hydroxyzine HCl 25 mg tablet 25 mg PO DAILY anxiety 12/29/23 12/29/23 12/27/23 History linaclotide 290 mcg capsule 290 mcg PO DAILY 12/29/23 12/29/23 12/27/23 History (Linzess) [id number] 1 cap PO DAILY PRN snack 12/29/23 12/29/23 12/27/23 History 36,000-114,000-180,000 unit capsule,delay rel (Creon) ottwlh-[id number] 1 cap PO TIDWM 12/29/23 12/29/23 12/27/23 History 36,000-114,000-180,000 unit capsule,delay rel (Creon) lorazepam 1 mg tablet 1 mg PO DAILY PRN Anxiety 12/29/23 12/29/23 12/27/23 History metoclopramide HCl 5 mg tablet 5 mg PO BID 12/29/23 12/29/23 12/27/23 History (Reglan) Physical Exam 2 Vital Signs and Narrative: Vital Signs: Last Vital Signs Temp 97.9 F 12/30/23 15:43 Pulse 65 12/30/23 15:43 Resp 16 12/30/23 15:43 BP 156/91 H 12/30/23 15:43 Pulse Ox 100 12/30/23 15:43 O2 Del Method Room Air 12/30/23 15:43 BMI result Body Mass Index 35.8 Const: Other: more alert and responsive. Complains of epigastric pain. Resp: Other: Clear to auscultation bilaterally no rales rhonchi or wheezes Cardio: Other: no S4; positive S1-S2; no S3 murmurs rubs or gallops GI: Other: soft nontender nondistended normoactive bowel sounds Neuro: Other: cranial nerves 2-12 grossly intact as tested. Motor appears 5/5 all extremities. Sensation not tested initially. Cognition appropriate Extrem: Other: no edema bilaterally Results Labs 12/29/23 08:02 12/29/23 08:02 Assessment and Plan (1) Mental status alteration: Qualifiers: Altered mental status type: transient alteration of awareness Qualified Code(s): R40.4 - Transient alteration of awareness Status: Acute (2) Anxiety: Status: Acute (3) Atypical chest pain: Status: Acute Plan 33-year-old female seen in preoperative area for mental status changes that occurred acutely. Patient also complained of retrosternal chest pain without radiation. EKG done failed to demonstrate any acute changes during her pain. After some reassurance patient became more verbal and stated that she takes medicine for reflux. Was given fentanyl x2 by anesthesia with relief. Patient ultimately admits that her anxiety took over in the preop area. Procedure canceled until a.m.. BP more control as anxiety control. We will returned to the floor tonight; will premedicate tomorrow before procedure. 1. Obstructive uropathy - postpone procedure today - re-attempt in a.m. with preoperative anxiety medication 2.Anxiety with alteration in mental status - will add Ativan overnight - reassess in a.m.; will premedicate prior to procedure 3. Atypical chest pain/GERD - EKG unremarkable without any ST-T wave changes during episodic pain - likely secondary to GERD - Maalox 30 cc/ viscous lidocaine 2% 10 cc p.o. x1 - follow clinically Thank you for the consultation. We will follow along with you
--- NOTE | 2023-12-30 17:20 | P.PNUR_ITS ---
Subjective Subjective Date of Service: 12/30/23 Interval history: Planned procedure New onset elevated BP in holding area Accompanied by mental status changes Evaluation with medicine anesthesia Procedure postponed Physical Exam 2 Vital Signs: Vital Signs: Last Vital Signs Temp 97.9 F 12/30/23 15:43 Pulse 65 12/30/23 15:43 Resp 16 12/30/23 15:43 BP 156/91 H 12/30/23 15:43 Pulse Ox 100 12/30/23 15:43 O2 Del Method Room Air 12/30/23 15:43 BMI result Body Mass Index 35.8 Const: General: cooperative, healthy appearing, comfortable and no acute distress Orientation/consciousness: patient oriented x3 HEENT: Face and sinus: Yes normal facial exam Mouth: moist mucous membranes Neck: Neck: Yes normal visual inspection, Yes full ROM and Yes trachea midline Chest: Chest palpation & inspection: normal inspection of the chest Resp: Effort & Inspection: normal respiratory effort, able to speak in complete sentences and no respiratory distress GI: Inspection: Yes normal to inspection Back/Spine/Pelvis: Cervical Spine: normal cervical lordosis Thoracic/Lumbar Spine: thoracic and lumbar spine normal to inspection Skin: General skin exam: no rashes or lesions noted Neuro: General: patient oriented x3, tone normal and moves all extremities Extrem: General: Yes normal to inspection and Yes capillary refill normal Urology Results Labs 12/29/23 08:02 12/29/23 08:02 Progress Note: A&P Assessment and plan (1) Ureterolithiasis: Status: Acute Plan Medicine assessment Procedure postponed Time Spent With Patient Time: Total time managing care of this patient today ____ minutes. Progress Note: Quality Stroke Does the patient have a stroke diagnosis?: No
--- NOTE | 2023-12-30 17:35 | P.ENANES_ITS ---
Anesthesia Event Note Date of Service: 12/30/23 Event Note: pt waiting for surgery , in pre op nurse noticed BP trending very high highest 219/126; at 1635 this was simultaneously followed by pt describing chest pain and headache and sudden change in alertness , pt appeared drowsy not reacting to verbal stimuli,quick bed side history and physical performed, meds reviewed, BP and pain treated with hydralazine, and fentanyl . t took 100 mg labetalol PO as scheduled in AM., medical consult called with .total hydralazine 20 mg i.v given, fentanyl 100 mcgs for pain with BP trending to normacy and symptoms resolved, evaluated patient and stated he will follow up as she is an inpatient , [facility] for heart burn after pt became alert and responsive. did not feel stroke protocol needed as patient returned to normal alertness and symptoms resolved and there were no focal deficits, surgery postponed per Aleta . Time Spent With Patient Time: Total time managing care of this patient today ____ minutes.
[2023-12-30] MEDS: ondansetron HCL 4 MG/2 ML VIAL IVPUSH (17:39)
[2023-12-30] MEDS: LORazepam 2 MG/ML VIAL 1 MG IVPUSH (17:51)
[2023-12-30] MEDS: Acetaminophen 325 MG TABLET 650 MG PO ×2 (19:56→23:51)
--- NOTE | 2023-12-30 22:42 | PC.NURSE ---
Pt off unit approximately 1530 for procedure. Report called by RN approximately 1710 pt unable to complete procedure returning back to unit. On arrival to unit pt slow to respond verbally when able to converse reports having panic attack ongoing. Patient boyfriend reports has had similar episodes at home. Pt harishso reports left face swelling and strange feeling. Dr Jo notified 1mg IV ativan given as well as zofran for nausea with good effect. Continues with pain to left abdomen medicated with prn dilaudid with good effect. Tylenol given for c/o headache with effect. IV fluids infusing per order plan for NPO at midnight for procedure tomorrow. Pt aware of plan.
[2023-12-31] VITALS (14 sets, daily range): BP systolic 116–183; BP diastolic 62–96; PULSE 64–82; RESP 16–20; TEMP 36.2–36.8; O2SAT 97–100
[2023-12-31] MEDS: Lactated Ringers 1,000 ML 100 ML IVCONT ×2 (01:49→13:06)
[2023-12-31] MEDS: Omeprazole 40 MG CAPSULE.DR PO (05:57)
[2023-12-31] MEDS: Acetaminophen 325 MG TABLET 650 MG PO (06:05)
[2023-12-31 06:26] LABS: MANUAL DIFF FLAG NO
[2023-12-31 06:32] LABS: Basophils Percent Auto 0.9 % (0-2); Eosinophils Absolute Auto 0.2 X10*3/uL (0.0-0.4); Hematocrit 31.5 % (37.0-47.0); Hemoglobin 10.3 g/dl (12.0-16.0); Imm Gran Abs Auto 0.01 X10*3/uL (0.00-0.03); Imm Gran Pct Auto 0.2 % (0.0-0.4); Lymphocytes Absolute Auto 1.5 X10*3/uL (1.2-4.9); Mean Corpuscular HGB Conc 32.7 g/dl (31.0-35.0); Mean Corpuscular Hemoglobin 27.9 pg (27.0-33.0); Mean Corpuscular Volume 85.4 fL (80.0-98.0); Mean Platelet Volume 10.7 fL (9.4-12.3); Monocytes Absolute Auto 0.6 X10*3/uL (0.1-1.2); Monocytes Percent Auto 12.3 % (2-11); Neutrophils Absolute Auto 2.3 x10*3/uL (2.0-8.3); Neutrophils Percent Auto 49.6 % (45-73); Platelet Count 251 X10*3/uL (160-400); Red Blood Count 3.69 X10*6/uL (4.20-5.50); Red Cell Distribution Width 13.9 % (11.0-16.0); White Blood Count 4.5 X10*3/uL (4.8-10.8)
[2023-12-31 07:01] LABS: Alanine Aminotransferase 15 U/L (0-31); Albumin Level 3.5 g/dL (3.5-5.0); Alkaline Phosphatase 88 U/L (39-117); Anion Gap 12 (12-20); Aspartate Amino Transferase 15 U/L (5-31); Bilirubin Total 0.3 mg/dL (0.0-1.0); Blood Urea Nitrogen 8 mg/dL (9-16); Calcium 8.7 mg/dL (8.4-10.2); Carbon Dioxide 22 mmol/L (22-29); Chloride 109 mmol/L (96-108); Creatinine Clr Calc Pharmacy 144.8; Estimated Glomerular Filt Rate > 60; Glucose Fasting 84 mg/dL (60-99); Potassium 3.8 mmol/L (3.3-5.1); Sodium 139 mmol/L (135-145); Total Protein 6.2 g/dL (6.5-8.0)
[2023-12-31] MEDS: Fluticasone/Vilanterol 200/25 BLST.W.DEV 1 PUFF INHALE (07:11)
[2023-12-31] MEDS: Gabapentin 400 MG CAPSULE PO ×3 (08:08→19:27)
[2023-12-31] MEDS: Metoclopramide HCl 5 MG TABLET PO ×2 (08:08→19:27)
[2023-12-31] MEDS: hydrOXYzine HCL 25 MG TABLET PO (08:09)
[2023-12-31] MEDS: Labetalol HCL 100 MG TABLET PO ×2 (08:09→19:27)
[2023-12-31] MEDS: HYDROmorphone HCl 1 MG/ML SYRINGE 0.5 MG IVPUSH ×2 (08:59→23:09)
[2023-12-31] MEDS: LORazepam 2 MG/ML VIAL 1 MG IVPUSH (13:28)
--- NOTE | 2023-12-31 14:11 | MHC.SHP ---
Pre-Procedural Eval Section A - 24 Hr Update-Section A only Date of Service: 12/31/23 The patient is an INPATIENT: Yes The patient has been examined within 24 hours of the surgical procedure. The History & Physical has been completed within 30 days and I have reviewed it.: Yes Section B - Complete if H&P > 30 days Chief Complaint: kidney stone, uti Allergies: Allergies Allergy/AdvReac Type Severity Reaction Status Date / Time amoxicillin [AMOXICILLIN] Allergy Intermediate NAUSEA & Verified 12/30/23 15:43 VOMITING, stomach pain, vomiting, stomach upset topiramate [From TOPAMAX] Allergy Intermediate TREMORS, Verified 12/30/23 15:43 nausea and vomiting latex [LATEX] Allergy Mild RASH Verified 12/30/23 15:43 medroxyprogesterone Allergy Mild RASH Verified 12/30/23 15:43 [From PROVERA] lactose Allergy bloating , Verified 12/30/23 15:43 diarrhea Plan Diagnosis/Plan: Unchanged I have reviewed the history and physical and performed a pertinent physical examination on my patient. No changes have occurred unless specified. Cystoscopy Left ureteral stent. Discussed risks to include but not limited to, blood in the urine, burning with urination, urgency. Time Spent With Patient Time: Total time managing care of this patient today ____ minutes.
--- NOTE | 2023-12-31 14:14 | P.CONAN_ITS ---
[facility] Active Problems Active Problems: All Active Problems Mental status alteration (Acute) Hydronephrosis, left (Acute) Nausea & vomiting (Acute) Acute UTI (Acute) Ureterolithiasis (Acute) Right shoulder strain (Acute) Asthma-COPD overlap syndrome (Acute) Elevated LFTs (Acute) Torticollis (Acute) Strain of cervical portion of left trapezius muscle (Acute) Preoperative examination (Acute) Cholelithiasis with chronic cholecystitis (Acute) COPD (chronic obstructive pulmonary disease) (Acute) Loud snoring (Acute) Daytime somnolence (Acute) Environmental and seasonal allergies (Acute) Biliary dyskinesia (Acute) Left breast lump (Acute) Calculus of kidney (Acute) RUQ abdominal pain (Acute) Anxiety (Acute) Anemia (Acute) Atypical chest pain (Acute) Bipolar 2 disorder (Acute) ADHD (Acute) Chronic idiopathic constipation (Acute) Delayed gastric emptying (Acute) GERD (gastroesophageal reflux disease) (Acute) Gestational diabetes (Acute) Hypertension (Acute) Depression (Acute) Gastritis (Acute) S/P laparoscopic cholecystectomy (Acute 03/06/23) Benign essential hypertension (Acute) Depression (Acute) Insomnia (Acute) Morbid obesity with BMI of 40.0-44.9, adult (Acute) Carpal tunnel syndrome, bilateral (Acute) PCOS (polycystic ovarian syndrome) (Acute) Fibromyalgia (Acute) Migraines (Acute) Hyperlipemia (Acute) Past Medical History Medical History Encounter for preoperative pulmonary examination Benign essential hypertension Gallstones Thoracic back pain Depression Tension headache Myofascial pain Sacroiliac joint pain Bilateral primary osteoarthritis of hip Post depression BMI 39.0-39.9,adult Trigger finger of left thumb Trigger finger of right thumb Insomnia Morbid obesity with BMI of 40.0-44.9, adult Smoker Annual physical exam Carpal tunnel syndrome, bilateral Personal history of gestational diabetes Obesity (BMI 30-39.9) Supervision of other high risk , antepartum Supervision of other normal PCOS (polycystic ovarian syndrome) control counseling Migraines Vulvar cyst Anxiety Hyperlipemia Fibromyalgia Rheumatoid arthritis Functional capacity: independent ambulation Patient : No Family History Family History Father Medical history unknown Mother Diabetes Hypertension Maternal Aunt Breast cancer Ovarian cancer Mental health disorder Maternal Grandmother Diabetes Hypertension Family history of problems with anesthesia: No Surgical History Surgical History S/P laparoscopic cholecystectomy (03/06/23) H/O tubal ligation History of hip replacement, total History of esophagogastroduodenoscopy (EGD) History of removal of cyst History of tonsillectomy and adenoidectomy History of Problems with Anesthesia: No Social History Social History Household Members: Significant Other and Children Housing: House Alcohol intake: current Alcohol intake frequency: holidays/special occasions only Patient Tobacco Use Status: Former Tobacco user e-Cigarette/Vaping Use: Never Used Second Hand Smoke Exposure: No Use of substances other than those prescribed or required for medical reasons: Yes Substance Use Type: Marijuana Substance Use Frequency: Daily Currently Displaying Signs/Symptoms of Drug Intoxication Withdrawal: No Are you DNR?: No Advance Directives: No Advance Directives Information Provided: No Do you have a plan to hurt others: No Plan Nutrition Risks: No Nutritional Risk Patient : No service: No Current occupational status: disabled Sexual orientation: Straight/Heterosexual Gender identity: Female Cognitive needs: No Hearing needs: No Vision needs: Yes Meds Allergies Allergy/AdvReac Type Severity Reaction Status Date / Time amoxicillin [AMOXICILLIN] Allergy Intermediate NAUSEA & Verified 12/30/23 15:43 VOMITING, stomach pain, vomiting, stomach upset topiramate [From TOPAMAX] Allergy Intermediate TREMORS, Verified 12/30/23 15:43 nausea and vomiting latex [LATEX] Allergy Mild RASH Verified 12/30/23 15:43 medroxyprogesterone Allergy Mild RASH Verified 12/30/23 15:43 [From PROVERA] lactose Allergy bloating , Verified 12/30/23 15:43 diarrhea Active Medications: Current Medications Acetaminophen (Acetaminophen 325 Mg Tablet) 650 mg PO Q6H PRN PRN Reason: Pain, Mild (Pain Scale 1-3), fever or headache Last Admin: 12/31/23 06:05 Dose: 650 mg Albuterol Sulfate (Albuterol Sulfate (0.083%) 2.5 Mg/3 Ml Vial.Neb) 2.5 mg INHALE Q6H PRN PRN Reason: Shortness Of Breath Or Wheezing Albuterol Sulfate (Albuterol Sulfate 90 Mcg 8 Gm Inhaler) 2 puff INHALE Q6H PRN PRN Reason: shortness of breath or wheezing Last Admin: 12/30/23 07:34 Dose: 2 puff Bupropion HCl (Bupropion Hcl Xl 300 Mg Tab.Er.24h) 300 mg PO DAILY [facility] Last Admin: 12/31/23 08:09 Dose: Not Given Calcium Carbonate (Calcium Carbonate 750 Mg Tab.Chew) 750 mg PO Q4H PRN PRN Reason: Heartburn Fluticasone/Vilanterol (Fluticasone/Vilanterol 200/25 Blst.W.Dev) 1 puff INHALE RDAILY [facility] Last Admin: 12/31/23 07:11 Dose: 1 puff Gabapentin (Gabapentin 400 Mg Capsule) 400 mg PO TID [facility] Last Admin: 12/31/23 08:08 Dose: 400 mg Hydromorphone HCl (Hydromorphone Hcl 1 Mg/Ml Syringe) 0.5 mg IVPUSH Q3H PRN; Protocol PRN Reason: Pain, Severe (Pain Scale 7-10) Last Admin: 12/31/23 08:59 Dose: 0.5 mg Hydromorphone HCl (Hydromorphone Hcl 2 Mg Tablet) 2 mg PO Q3H PRN PRN Reason: Pain, Moderate(Pain Scale 4-6) Last Admin: 12/30/23 19:59 Dose: 2 mg Hydroxyzine HCl (Hydroxyzine Hcl 25 Mg Tablet) 25 mg PO DAILY [facility] Last Admin: 12/31/23 08:09 Dose: 25 mg Cefazolin Sodium 1 gm/ Sodium (Chloride) 50 mls @ 100 mls/hr IV Q8H [facility] Last Infusion: 12/31/23 07:12 Dose: Infused Lactated Ringer's (Lr) 1,000 mls @ 80 mls/hr IVCONT .[id number] [facility] Last Admin: 12/31/23 04:49 Dose: Not Given Labetalol HCl (Labetalol Hcl 100 Mg Tablet) 100 mg PO BID [facility]; Protocol Last Admin: 12/31/23 08:09 Dose: 100 mg Lorazepam (Lorazepam 1 Mg Tablet) 1 mg PO DAILY PRN PRN Reason: Anxiety Lorazepam (Lorazepam 2 Mg/Ml Vial) 1 mg IVPUSH Q6H PRN PRN Reason: panic attack Last Admin: 12/31/23 13:28 Dose: 1 mg Magnesium Hydroxide (Milk Of Magnesia 30 Ml Oral.Susp) 30 ml PO DAILY PRN PRN Reason: Constipation Melatonin (Melatonin 3 Mg Tablet) 6 mg PO BEDTIME PRN PRN Reason: Insomnia Metoclopramide HCl (Metoclopramide Hcl 5 Mg Tablet) 5 mg PO BID [facility] Last Admin: 12/31/23 08:08 Dose: 5 mg Non-Formulary Medication (Linaclotide [Linzess]) 290 mcg PO DAILY [facility] Omeprazole (Omeprazole 40 Mg Capsule.Dr) 40 mg PO DAILY@0630 [facility] Last Admin: 12/31/23 05:57 Dose: 40 mg Ondansetron HCl (Ondansetron Hcl 4 Mg/2 Ml Vial) 4 mg IVPUSH Q8H PRN PRN Reason: Nausea and Vomiting Last Admin: 12/30/23 17:39 Dose: 4 mg Sertraline HCl (Sertraline Hcl 100 Mg Tablet) 100 mg PO DAILY [facility] Last Admin: 12/31/23 08:09 Dose: Not Given Sodium Chloride (0.9 % Sodium Chloride Flush 3 Ml Syringe) [facility] Last Admin: 12/31/23 08:10 Dose: Not Given Home Medications ?Medication ?Instructions ?Recorded ?Confirmed ?Last Taken ?Type sertraline 100 mg tablet 100 mg PO DAILY 08/22/20 12/29/23 12/27/23 History morphine 15 mg immediate release 15 mg PO BID PRN Pain 11/15/23 12/29/23 12/27/23 History tablet acetaminophen 325 mg tablet 650 mg PO Q6H PRN Pain 12/29/23 12/29/23 Unknown History (Tylenol) albuterol sulfate 2.5 mg/3 mL 2.5 mg inhalation Q6H PRN 12/29/23 12/29/23 12/27/23 History (0.083 %) solution for nebulization Shortness Of Breath Or Wheezing albuterol sulfate 90 mcg/actuation 2 inh inhalation Q6H PRN shortness 12/29/23 12/29/23 12/27/23 History breath activated powder inhaler of breath or wheezing bupropion HCl 300 mg 24 hr tablet, 300 mg PO DAILY 0712/29/23 12/27/23 History extended release dexlansoprazole 60 mg 60 mg PO DAILY@0630 12/29/23 12/29/23 12/27/23 History capsule,biphase delayed release (Dexilant) hydroxyzine HCl 25 mg tablet 25 mg PO DAILY anxiety 12/29/23 12/29/23 12/27/23 History linaclotide 290 mcg capsule 290 mcg PO DAILY 12/29/23 12/29/23 12/27/23 History (Linzess) [id number] 1 cap PO DAILY PRN snack 12/29/23 12/29/23 12/27/23 History 36,000-114,000-180,000 unit capsule,delay rel (Creon) [id number] 1 cap PO TIDWM 12/29/23 12/29/23 12/27/23 History 36,000-114,000-180,000 unit capsule,delay rel (Creon) lorazepam 1 mg tablet 1 mg PO DAILY PRN Anxiety 12/29/23 12/29/23 12/27/23 History metoclopramide HCl 5 mg tablet 5 mg PO BID 12/29/23 12/29/23 12/27/23 History (Reglan) Exam Height,Weight and Vital Signs: Height 5 ft 4 in Weight 94.5 kg Last Vital Signs Temp 98.2 F 12/31/23 13:41 Pulse 78 12/31/23 13:41 Resp 18 12/31/23 13:41 BP 140/83 H 12/31/23 13:41 Pulse Ox 100 12/31/23 13:41 O2 Del Method Room Air 12/31/23 13:41 O2 Flow Rate 2 12/30/23 17:05 Pertinent Lab Results Pertinent Lab Results: Laboratory Tests 12/29/23 12/29/23 12/31/23 08:02 08:20 06:04 WBC 5.4 4.5 L RBC 4.09 L 3.69 L Hgb 11.5 L 10.3 L Hct 34.7 L 31.5 L MCV 84.8 85.4 MCH 28.1 27.9 MCHC 33.1 32.7 RDW 13.9 13.9 Plt Count 277 251 MPV 10.8 10.7 Immature Gran % (Auto) 0.4 0.2 Neut % (Auto) 55.4 49.6 Lymph % (Auto) 30.9 33.0 Green % (Auto) 8.3 12.3 H Eos % (Auto) 4.4 H 4.0 Baso % (Auto) 0.6 0.9 Lymph # (Auto) 1.7 1.5 Green # (Auto) 0.5 0.6 Eos # (Auto) 0.2 0.2 Baso # (Auto) 0.0 0.0 Abs Immat Gran (auto) 0.02 0.01 Absolute Neuts (auto) 3.0 2.3 Absolute Nucleated RBC 0.000 0.000 Nucleated RBC % (auto) 0.0 0.0 Sodium 141 139 Potassium 3.8 3.8 Chloride 111 H 109 H Carbon Dioxide 20 L 22 Anion Gap 14 12 BUN 8 L 8 L Creatinine 0.68 0.61 Estim Creat Clear Calc 128.2 144.8 Estimated GFR > 60 > 60 Random Glucose 99 Fasting Glucose 84 Calcium 8.9 8.7 Total Bilirubin 0.3 0.3 Direct Bilirubin < 0.1 AST 14 15 ALT 15 15 Alkaline Phosphatase 97 88 Total Protein 7.2 6.2 L Albumin 4.0 3.5 Lipase 27 Beta HCG, Quant < 2 Urine Color Yellow Urine Appearance Cloudy Urine pH 7.5 Ur Specific [place] 1.010 Urine Protein Trace Urine Glucose (UA) Negative Urine Ketones Negative Urine Blood Moderate (2+) H Urine Nitrite Negative Ur Leukocyte Esterase Large (3+) H Urine RBC >20 H Urine WBC >50 H Ur Squamous Epith Cells 11-20 Calcium Oxalate Crystal Present Urine Bacteria 3+ Hyaline Casts 0-2 Urine Opiates Screen Not Detected Ur Buprenorphine Scrn Not Detected Ur Oxycodone Screen Not Detected Urine Methadone Screen Not Detected Urine Fentanyl Screen Not Detected Ur Barbiturates Screen Not Detected Ur Phencyclidine Scrn Not Detected Ur Amphetamines Screen Not Detected U Benzodiazepines Scrn Not Detected Urine Cocaine Screen Not Detected U Marijuana (THC) Screen POSITIVE H Airway Mallampati Class: III TM Dist: >3cm Neck ROM: Full Heart: RRR Lungs: CTA Assessment and Plan Assessment Anesthesia Assessment: Anesthesia Plan Discussed and Smoking Cess. Discussed Final Anesthetic Review Family History of Problems with Anesthesia: No History of Problems with Anesthesia: No NPO: Yes ASA Class: III Final Preanesthetic Review: Meds/Allgs Chart Reviewed, Consent Obtained/Reviewed and Anes Risks/Benef Reviewed Patient Risk: Intermediate Procedure Risk: Low Anesthetic Plan Anesthetic Plan: GA Disposition: Standard PACU
--- NOTE | 2023-12-31 14:45 | W.PM.OPN ---
Operative Note Operative Note Date of Service: 12/31/23 Narrative: PreOperative Diagnosis:?? Left proximal ureteral stone, left hydronephrosis, UTI Post Operative Diagnosis:?? Left proximal ureteral stone, left hydronephrosis, UTI Procedure: Cystoscopy, left retrograde left stent insertion, size 6 Swedish by 24 cm Surgeon:?Dr Rose Mary Garza Anesthesia:? General Procedure: After informed consent was verified the patient was brought to the operating placed on the OR table in supine position.? General Anesthesia was administered per protocol.? The patient was placed in lithotomy position, prepped and draped in the usual sterile fashion.? Safety pause time-out and side of surgery confirmed.? Antibiotics confirmed. A 22 Swedish cystoscope was inserted transurethrally, The bladder was visualized.? Both ureteric orifices were in normal position. The? left ureteric orifice was cannulated? and a retrograde examination was performed, a filling defect was noted at the proximal ureter consistent with the stone. A hydrophilic guidewire was placed up to the level of the renal pelvis under fluoroscopy. A 6 fr by 24 cm ureteral stent was passed over the guide wire under fluoroscopic guidance. The guide wire was removed. The bladder was emptied.? The rigid cystoscope was removed. ? The patient tolerated the procedure well and was brought to the recovery room in stable condition. Complications: None Drains: Ureteral stent as dictated above
--- NOTE | 2023-12-31 15:47 | PM.DS ---
DS: Providers Provider Date of Service: 12/31/23 Date of admission: 12/29/23 13:08 Date of discharge: 12/31/23 Primary care physician: Jarrod Sherman MD Consults: 12/30/23 17:18 Consult to Medicine Stat Consulting Provider: Hamilton Jo Reason for consultation: High BP DS: Diagnosis Discharge Diagnosis (1) Mental status alteration: Status: Acute (2) Anxiety: Status: Acute (3) Atypical chest pain: Status: Acute (4) Obstructive uropathy: Status: Acute DS: Summary Hospital Course Hospital Course: 33 year old female h/o of nephrolithiasis admitted due to Left obstructing UPJ stone and left flank pain. UA suggestive of UTI. CTAP: B/L nephrolithiasis, 8 mm Left UPJ stone with left hydro Hospital Course Admitted with intent to take to OR. In the preoperative area patient had a panic attack necessitating postponement of procedure till this a.m.. This a.m underwent successful stenting of left proximal ureter with cystoscopy. She tolerated the procedure well and at this time is medically acceptable to be discharged home. She falls up with Dr. Wisdom as scheduled Time Attestation Discharge Coordination Time (in mins): 35 Quality: Safe Use of Opioids Does Pt have an Active Cancer Diagnosis on the Problem List?: No Quality: Stroke Does the patient have a stroke diagnosis?: No Physical Exam Vital Signs: Vital Signs: Last Vital Signs Temp 97.4 F 12/31/23 15:44 Pulse 80 12/31/23 15:44 Resp 20 12/31/23 15:44 BP 175/91 H 12/31/23 15:44 Pulse Ox 100 12/31/23 15:44 O2 Del Method Room Air 12/31/23 15:44 O2 Flow Rate 6 12/31/23 15:06 BMI result Body Mass Index 35.8 Const: Other: more alert and responsive. Complains of epigastric pain. Resp: Other: Clear to auscultation bilaterally no rales rhonchi or wheezes Cardio: Other: no S4; positive S1-S2; no S3 murmurs rubs or gallops GI: Other: soft nontender nondistended normoactive bowel sounds Neuro: Other: cranial nerves 2-12 grossly intact as tested. Motor appears 5/5 all extremities. Sensation not tested initially. Cognition appropriate Extrem: Other: no edema bilaterally DS: Data Data Completed and Pending Labs on day of discharge: Laboratory Results - last 24 hr 12/31/23 06:04 WBC 4.5 L RBC 3.69 L Hgb 10.3 L Hct 31.5 L MCV 85.4 MCH 27.9 MCHC 32.7 RDW 13.9 Plt Count 251 MPV 10.7 Immature Gran % (Auto) 0.2 Neut % (Auto) 49.6 Lymph % (Auto) 33.0 [place] % (Auto) 12.3 H Eos % (Auto) 4.0 Baso % (Auto) 0.9 Lymph # (Auto) 1.5 [place] # (Auto) 0.6 Eos # (Auto) 0.2 Baso # (Auto) 0.0 Abs Immat Gran (auto) 0.01 Absolute Neuts (auto) 2.3 Absolute Nucleated RBC 0.000 Nucleated RBC % (auto) 0.0 Sodium 139 Potassium 3.8 Chloride 109 H Carbon Dioxide 22 Anion Gap 12 BUN 8 L Creatinine 0.61 Estim Creat Clear Calc 144.8 Estimated GFR > 60 Fasting Glucose 84 Calcium 8.7 Total Bilirubin 0.3 AST 15 ALT 15 Alkaline Phosphatase 88 Total Protein 6.2 L Albumin 3.5 Discharge Plan Discharge Anticipated Discharge Date/Time: 12/31/23 15:42 Patient Disposition: Home, Self-Care Discharge Diagnosis: Obstructive uropathy Referrals: Jarrod Sherman MD [Primary Care Provider] - 1 Week Discharge Medications: Continued (DME) FRONT-WHEELED WALKER See Rx Instructions .Route .MEDSUPPLY Qty: 1 0RF Rx Instructions: As directed (DME) TUB SEAT with BACK See Rx Instructions .Route .MEDSUPPLY Qty: 1 0RF Rx Instructions: As directed (DME) BEDSIDE COMMODE See Rx Instructions .Route .MEDSUPPLY Qty: 1 0RF Rx Instructions: As directed gabapentin 400 mg capsule 400 mg PO TID 30 Days Qty: 90 3RF Rx Instructions: 1 capsule Orally Three times a day budesonide-formoterol [Symbicort] 160-4.5 mcg/actuation HFA aerosol inhaler 2 puff inhalation Q12H Qty: 10.2 3RF labetalol 100 mg tablet 100 mg PO BID 90 Days Qty: 180 1RF ibuprofen [IBU] 800 mg tablet 800 mg PO Q8H PRN (Reason: pain/headaches) 30 Days Qty: 90 0RF Rx Instructions: Take with food metoclopramide HCl [Reglan] 5 mg tablet 5 mg PO BID hydroxyzine HCl 25 mg tablet 25 mg PO DAILY lorazepam 1 mg tablet 1 mg PO DAILY PRN (Reason: Anxiety) bupropion HCl 300 mg tablet extended release 24 hr 300 mg PO DAILY dexlansoprazole [Dexilant] 60 mg capsule,biphase delayed releas 60 mg PO DAILY@0630 Linzess 290 mcg capsule 290 mcg PO DAILY Creon 36,000-114,000- 180,000 unit capsule,delayed release(DR/EC) 1 cap PO TIDWM acetaminophen [Tylenol] 325 mg Tablet 650 mg PO Q6H PRN (Reason: Pain) albuterol sulfate 2.5 mg /3 mL (0.083 %) solution for nebulization 2.5 mg inhalation Q6H PRN (Reason: Shortness Of Breath Or Wheezing) albuterol sulfate 90 mcg/actuation aerosol powdr breath activated 2 inh inhalation Q6H PRN (Reason: shortness of breath or wheezing) Creon 36,000-114,000- 180,000 unit capsule,delayed release(DR/EC) 1 cap PO DAILY PRN (Reason: snack) sertraline 100 mg tablet 100 mg PO DAILY (DME) nebulizers [Compact Compressor Nebulizer] Misc See Rx Instructions .Route Qty: 1 0RF Rx Instructions: As directed (DME) lancets [FreeStyle Lancets] 28 gauge misc See Rx Instructions .ROUTE .MEDSUPPLY Qty: 100 1RF Rx Instructions: 4 times/day pyridoxine (vitamin B6) 100 mg tablet 100 mg PO DAILY 90 Days Qty: 90 1RF morphine 15 mg tablet 15 mg PO BID PRN (Reason: Pain) Discharge Orders: Discharge Order (Routine); Ordered 12/31/23 Ordered By: Hamilton Jo Diet: Advance to usual diet Activity on Discharge: As tolerated Stand Alone Forms: Patient Portal Discharge page Print Language: Chilean Care Plan Goals: Resume all pre-hospital medications Health Concerns: Drink plenty of fluids Plan of Treatment: Follow-up with Dr. Wisdom in office as scheduled Assessment: As ordered
--- NOTE | 2023-12-31 15:48 | MHC.CM.PN ---
Patient has been medically cleared for dc to home today, self care.
[2023-12-31] MEDS: Milk of Magnesia 30 ML ORAL.SUSP PO (16:24)
[2023-12-31] MEDS: 0.9 % Sodium Chloride Flush 3 ML SYRINGE IVFLUSH (16:25)
[2023-12-31] MEDS: HYDROmorphone HCl 2 MG TABLET PO ×2 (16:34→21:32)
[2023-12-31] MEDS: ondansetron HCL 4 MG/2 ML VIAL IVPUSH (19:26)
[2023-12-31] MEDS: HYDROmorphone HCl 1 MG/ML SYRINGE IVPUSH (19:26)
[2023-12-31] MEDS: Lactated Ringers 1,000 ML 80 ML IVCONT (19:40)
[2024-01-01] VITALS: BP 128/62; PULSE 78; RESP 17; TEMP 36.7; O2SAT 95
[2024-01-01] MEDS: 0.9 % Sodium Chloride Flush 3 ML SYRINGE IVFLUSH (01:19)
[2024-01-01 03:56] VITALS: BP 141/75; PULSE 71; RESP 19; TEMP 36.7; O2SAT 98
[2024-01-01] MEDS: Lactated Ringers 1,000 ML 80 ML IVCONT (05:28)
[2024-01-01] MEDS: Omeprazole 40 MG CAPSULE.DR PO (05:29)
[2024-01-01] MEDS: HYDROmorphone HCl 1 MG/ML SYRINGE 0.5 MG IVPUSH ×2 (05:30→10:38)
[2024-01-01 07:36] VITALS: BP 178/81; PULSE 76; RESP 18; TEMP 36.7; O2SAT 100
--- NOTE | 2024-01-01 07:45 | HO.POSTANES ---
Post Anesthesia Evaluation Post Anesthesia Evaluation Date of Service: 01/01/24 Vital Signs: Vital Signs Temp Pulse Resp BP Pulse Ox O2 Del Method 01/01/24 07:36 98.0 F 76 18 178/81 H 100 Room Air 01/01/24 03:56 98.1 F 71 19 141/75 H 98 Room Air 01/01/24 00:00 98.0 F 78 17 128/62 95 Room Air 12/31/23 21:39 80 153/74 H Anesthesia: General Mental Status: Awake Pain Control: Satisfactory Nausea/Vomiting: None Hydration: Adequate Anesthesia-Related Issues: No Anes. Related Issues
[2024-01-01] MEDS: HYDROmorphone HCl 2 MG TABLET PO (07:51)
[2024-01-01] MEDS: Gabapentin 400 MG CAPSULE PO (07:54)
[2024-01-01] MEDS: Metoclopramide HCl 5 MG TABLET PO (07:55)
[2024-01-01] MEDS: Labetalol HCL 100 MG TABLET PO (07:55)
[2024-01-01] MEDS: hydrOXYzine HCL 25 MG TABLET PO (07:55)
--- NOTE | 2024-01-01 11:13 | MHC.CM.PN ---
[facility] PT WILL BE MEDICALLY CLEARED FOR DC HOME SELF CARE LATER TODAY W/BOYFRIEND TO TRANSPORT.
[2024-01-01 11:21] VITALS: BP 137/78; PULSE 70; RESP 18; TEMP 36.7; O2SAT 99
[2024-01-01] MEDS: oxyCODONE HCl Immed Release 5 MG TABLET 10 MG PO (12:36)
== END 2024-01-01 15:30 | disposition home or self-care (01) | DRG 463 ==
LOC: HO.ED 12:32 → HO.EDOVER 13:33 → HO.IMC 16:40
PROVIDERS: Admitting Provider Urology; Emergency Provider Emergency Medicine; PCP Internal Medicine; Visit Provider Hospitalist
PROC: 0T778DZ Dilation of Left Ureter with Intraluminal Device, Via Natural or Artificial Opening Endoscopic (ICD-10-PCS; principal; 2023-12-31 14:30)
DX: N13.6 Pyonephrosis (principal); F41.9 Anxiety disorder, unspecified; K21.9 Gastro-esophageal reflux disease without esophagitis; Z79.899 Other long term (current) drug therapy
CPT/HCPCS: 36415; 74176; 80048; 80053; 80076; 80307; 81001; 83690; 84702; 85025; 87086; 93005; 94640; 99285; 99499; C1769; C2617; J0360; J0690; J1100; J1170; J1200; J1885; J1920; J1956; J2060; J2250; J2270; J2405; J2704; J2765; J3010; J7120; Q9967

== ENCOUNTER 2023-12-29 13:08 | Outpatient (BNV) | payer OTHER, SELFPAY | END 2023-12-30 16:43 | PROVIDERS: Admitting Provider Urology; Emergency Provider Emergency Medicine; PCP Internal Medicine; Visit Provider Internal Medicine Cardiovascular Disease | DX: R41.82 Altered mental status, unspecified (principal) | CPT/HCPCS: 93010 ==

== ENCOUNTER → 2023-12-29 13:08 | Outpatient (BNV) | payer OTHER, SELFPAY | PROVIDERS: Admitting Provider Urology; Emergency Provider Emergency Medicine; PCP Internal Medicine; Visit Provider Urology | DX: N20.1 Calculus of ureter (principal); N13.30 Unspecified hydronephrosis | CPT/HCPCS: 52332; 74420; 99222; 99232 ==

== ENCOUNTER → 2023-12-29 13:08 | Outpatient (BNV) | payer OTHER, SELFPAY | PROVIDERS: Admitting Provider Urology; Emergency Provider Emergency Medicine; PCP Internal Medicine; Visit Provider Hospitalist | DX: R40.4 Transient alteration of awareness (principal); F41.9 Anxiety disorder, unspecified; R07.89 Other chest pain; N13.9 Obstructive and reflux uropathy, unspecified | CPT/HCPCS: 99223; 99239 ==

== ENCOUNTER 2024-01-07 10:25 | Outpatient (REF) | payer OTHER, SELFPAY ==
--- NOTE | ~2024-01-07 | XR_ITS ---
EXAMINATION: XR ABDOMEN KUB CLINICAL INDICATION: Calculus of ureter COMPARISON: CT abdomen from 07/10/2023 TECHNIQUE: AP view of the abdomen. FINDINGS: Left-sided double-J nephroureteral stent noted. Punctate less than 1 mm calcification involving the left renal interpolar region. No radiopaque calcifications overlying the right renal shadow or bilateral ureteral paths. Pelvic limits are noted. Fecal loading the visualized colon without obstruction. Bilateral hip arthroplasty partially visualized and grossly intact. Slight elevation right hemidiaphragm. Visualized portions of the lower chest are unremarkable. Surgical clips right upper abdomen. Soft tissues are unremarkable. XR/XR KUB IMPRESSION: 1. Left-sided double-J nephroureteral stent noted. 2. Punctate less than 1 mm calcification involving the left renal interpolar region. 3. No radiopaque calcifications overlying the right renal shadow or bilateral ureteral paths. 4. Fecal loading the visualized colon without obstruction.
[2024-01-07 11:35] LABS: Appearance Urine Cloudy; Color Urine Yellow; Glucose Urine UA Negative (Negative); Leukocyte Esterase Urine Large (3+) (Negative); Nitrite Urine Negative (Negative); Specific Gravity - Urine <= 1.005 (1.005-1.025); UMIC TRIGGER UA YES; Urine Blood Moderate (2+) (Negative); Urine Ketones Negative (Negative); Urine Protein 30 (1+) mg/dL (Neg-Trace)
[2024-01-07 11:38] LABS: Bacteria Urine 1+ (None Seen); Hyaline Casts Urine 0-2 /LPF (0-2); Squamous Epithelial Cell Urine >20 /HPF (0-2); WBC Urine >50 /HPF (0-5)
== END 2024-01-07 10:26 | disposition home or self-care (01) ==
LOC: HO.LAB 10:25
PROVIDERS: Absent Provider Urology; PCP Internal Medicine; Visit Provider Urology
DX: N20.0 Calculus of kidney (principal); N39.0 Urinary tract infection, site not specified; N20.1 Calculus of ureter
CPT/HCPCS: 74018; 81001; 87086

== ENCOUNTER 2024-01-09 08:59 | Outpatient (AMB) | payer OTHER, SELFPAY ==
--- NOTE | 2024-01-09 08:55 | A.OFFVIS_ITS ---
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 She is a patient Dr. Sherman. She is seen for the following urologic conditions - nephrolithiasis Telemedicine Evaluation 15 min Consultation Doxim[employer] Data Anila Video Recent procedure with stent placement Pyelonephritis Receiving antibiotics Prescriptions refilled for Naprosyn, tamsulosin, fluconazole since sounds as though she has a yeast infection Plan for ESWL left proximal stone Nephrolithiasis Initial presentation emergency room 10/07 Aunt has stones Imaging - 10/07 CT multiple 4mm stones bilateral - 01/06 ultrasound minimal stone - 07/10 renal ultrasound bilateral 3 mm stones Intervention - 10/07 right ureteroscopy with laser lithotripsy Stone composition - 10/07 calcium oxalate dihydrate with brushing Therapeutic plan - surveillance imaging - encourage fluids PFSH Medical History Encounter for preoperative pulmonary examination Benign essential hypertension Gallstones Thoracic back pain Depression Tension headache Myofascial pain Sacroiliac joint pain Bilateral primary osteoarthritis of hip Post depression BMI 39.0-39.9,adult Trigger finger of left thumb Trigger finger of right thumb Insomnia Morbid obesity with BMI of 40.0-44.9, adult Smoker Annual physical exam Carpal tunnel syndrome, bilateral Personal history of gestational diabetes Obesity (BMI 30-39.9) Supervision of other high risk , antepartum Supervision of other normal PCOS (polycystic ovarian syndrome) control counseling Migraines Vulvar cyst Anxiety Hyperlipemia Fibromyalgia Rheumatoid arthritis Surgical History S/P laparoscopic cholecystectomy (03/06/23) H/O tubal ligation History of hip replacement, total History of esophagogastroduodenoscopy (EGD) History of removal of cyst History of tonsillectomy and adenoidectomy Family History Father Medical history unknown Mother Diabetes Hypertension Maternal Aunt Breast cancer Ovarian cancer Mental health disorder Maternal Grandmother Diabetes Hypertension Social History Household Members: Significant Other and Children Housing: House Alcohol intake: current Alcohol intake frequency: holidays/special occasions only Patient Tobacco Use Status: Former Tobacco user e-Cigarette/Vaping Use: Never Used Second Hand Smoke Exposure: No Substance Use Type: Marijuana service: No Current occupational status: disabled Sexual orientation: Straight/Heterosexual Gender identity: Female Cognitive needs: No Hearing needs: No Vision needs: Yes Female Reproductive History Menstrual Age of Menarche: 8 Review of Systems Const All systems reviewed & are unremarkable except as noted in HPI and below Reports no additional complaints Resp Reports no additional complaints GI Reports no additional complaints Reports as per HPI Musc Reports no additional complaints Physical Exam Telemedicine evaluation Appropriate responses Regular breathing rate and rhythm HEENT Head: Yes normal to inspection Ears: hearing grossly normal bilaterally Eyes General: appearance normal, both eyes and all related structures Neck Neck: Yes normal visual inspection Chest Chest palpation & inspection: normal inspection of the chest Resp Effort & Inspection: normal respiratory effort and able to speak in complete sentences Telehealth Telehealth Telehealth Platform: [facility] Location of provider rendering services: practice address Location of patient: address on file Patient Identification confirmed using: Name, : Yes Telehealth method: video Patient verbally consented to treatment: Yes Patient verbally consented to billing insurance company: Yes Patient informed of any privacy concerns related to visit: Yes Minutes spent on Phone/Video with Pt.: 15 Assessment & Plan Assessment & Plan (1) Obstruction of left ureteropelvic junction due to stone: Code(s): N20.1 - Calculus of ureter Category: Medical Plan Extracorporeal Shock Wave Lithotripsy We discussed the nature of the decision and reasonable alternatives for performing the above surgery. Interventions include chemical dissolution, ESWL, ureteroscopy with laser lithotripsy and stent placement, PCNL. Options such as medical therapy were discussed. The relative uncertainties and benefits related to each alternate procedure were adequately discussed. General surgical risks including, but not limited to, pain, bleeding, infection, myocardial infarction, pulmonary embolus, deep vein thrombosis and cerebrovascular accident which may result in further hospitalization were discussed. Full disclosure of the procedure as well as all major risks, benefits and complications were discussed including but not limited to risks of bleeding, injury to the kidney with hematoma or al-hematoma, failure to fragments stone, potential for ureteric obstruction from stone passage and need for secondary procedures. There is a small long-term risk of hypertension and a question [place] of diabetes. Success rate of fragmentation and passage is approximately 70- 75%. This is compared to the risks and benefits for ureteroscopy which has a hi gher success rate but is a more invasive procedure. The success rate of the procedure was discussed. Success of the procedure in the short-term does not necessarily guarantee that long-term success will be maintained. Suitable follow up will need to be maintained. The patient showed understanding of the discussion as well as the typical recovery time, and the outpatient nature of this procedure. Opportunity was given for questions. Repeat-back protocol used to confirm understanding. They wish to proceed with left ESWL Medications: New tamsulosin (Flomax) 0.4 mg PO BEDTIME 14 days 14 caps 0RF N13.2 - Hydronephrosis with renal and ureteral calculous obstruction naproxen (Naprosyn) 500 mg PO Q12H 30 days PRN 60 tabs 0RF pain S39.91XA - Unspecified injury of abdomen, initial encounter phenazopyridine 100 mg PO Q8H 14 days 42 tabs 0RF M54.50 - Low back pain, unspecified, N30.10 - Interstitial cystitis (chronic) without hematuria, R31.9 - Hematuria, unspecified fluconazole 150 mg PO Q3D 2 doses 2 tabs 0RF B49 - Unspecified mycosis Patient Instructions: Imaging studies, laboratory and physical exam results were discussed and reviewe d in detail. No major barriers to patient understanding were identified. An opportunity to ask questions regarding the treatment plan was provided. All questions were answered. The patient expressed understanding and agreement with the above treatment plan. The patient is aware they should contact our office by phone for worsening of their current condition or the appearance of new urologic symptoms. Compliance is encouraged with any medications and followup testing that is ordered. It is a privilege to participate in the urologic care of your patient. If you have any questions or concerns regarding treatment for the above conditions, or other urologic issues, please do not hesitate to contact me. The office telephone contact is [phone]. This note is constructed using voice recognition software. While every effort has been made to ensure accuracy molder feeder errors may have been included. Yours sincerely, Dr Jayson Rausch MD, [facility] - Urology Providers of Expert, Compassionate Care for the Genitourinary System Coding Level of Care Code Tele Est Pt Level 4 (61767) Diagnoses Obstruction of left ureteropelvic junction due to stone N20.1
== END 2024-01-09 09:44 | disposition home or self-care (01) ==
LOC: HO.HUSH 08:59
PROVIDERS: PCP Internal Medicine; Visit Provider Urology
DX: N20.1 Calculus of ureter (principal)
CPT/HCPCS: 99214

== ENCOUNTER → 2024-01-09 08:59 | Outpatient (BNVA) | payer OTHER, SELFPAY | PROVIDERS: PCP Internal Medicine; Visit Provider Urology ==

== ENCOUNTER 2024-01-10 14:14 | Outpatient (AMB) | payer OTHER, SELFPAY ==
--- NOTE | 2024-01-10 14:25 | A.OFFPC_ITS ---
Vital Signs 01/10/24 14:28 Height 5 ft 1.5 in Weight 206 lb 6 oz BMI 38.4 BP 120/68 Blood Pressure Location Lt brachial Position Sitting [place] [facility] [place] Intake Note: Patient is here for hospital discharge follow up. [place] was [place] [facility] [place]. Supervisor Residential Required: No Oil Changer: Present Accompanied by: Spouse Allergies amoxicillin [AMOXICILLIN] Allergy (Intermediate, Verified 01/10/24 14:28) NAUSEA & VOMITING, stomach pain, vomiting, stomach upset topiramate [From TOPAMAX] Allergy (Intermediate, Verified 01/10/24 14:28) TREMORS, nausea and vomiting latex [LATEX] Allergy (Mild, Verified 01/10/24 14:28) RASH medroxyprogesterone [From PROVERA] Allergy (Mild, Verified 01/10/24 14:28) RASH lactose Allergy (Verified 01/10/24 14:28) bloating , diarrhea Tobacco use date assessed: 01/10/24 Dental Screening Dental Screen Date: 10/17/23 HPI HPI Comments History of Present Illness Details 33 y/o female patient who [facility]. Pt was [place] [facility] [place] and was admitted for Nephrolithiasis and Pyelonephritis. She had a procedure done 12/30 Cystoscopy, Left Retrograde and Left stent placement. She was discharged home the same day and follow with Urology Out patient. She is scheduled to have another procedure 02/05/24 ([facility] Ureteroscopy with Lase Lithotripsy and stent placement PCNL). Today reports still having Abdominal cramping (not sure if this is related to the Kidney stones or she is about to start menses), nausea but no vomiting and Dysuria. Denies fevers but reports chills. She has been taking Naproxen Alternating with Acetaminophen with some mild relief. [facility] Medical History Encounter for preoperative pulmonary examination Benign essential hypertension Gallstones Thoracic back pain Depression Tension headache Myofascial pain Sacroiliac joint pain Bilateral primary osteoarthritis of hip Post depression BMI 39.0-39.9,adult Trigger finger of left thumb Trigger finger of right thumb Insomnia Morbid obesity with BMI of 40.0-44.9, adult Smoker Annual physical exam Carpal tunnel syndrome, bilateral Personal history of gestational diabetes Obesity (BMI 30-39.9) Supervision of other high risk , antepartum Supervision of other normal PCOS (polycystic ovarian syndrome) control counseling Migraines Vulvar cyst Anxiety Hyperlipemia Fibromyalgia Rheumatoid arthritis Surgical History S/P laparoscopic cholecystectomy (03/06/23) H/O tubal ligation History of hip replacement, total History of esophagogastroduodenoscopy (EGD) History of removal of cyst History of tonsillectomy and adenoidectomy Family History Father Medical history unknown Mother Diabetes Hypertension Maternal Aunt Breast cancer Ovarian cancer Mental health disorder Maternal Grandmother Diabetes Hypertension Social History Household Members: Significant Other and Children Housing: House Alcohol intake: current Alcohol intake frequency: holidays/special occasions only Patient Tobacco Use Status: Former Tobacco user e-Cigarette/Vaping Use: Never Used Second Hand Smoke Exposure: No Substance Use Type: Marijuana service: No Current occupational status: disabled Sexual orientation: Straight/Heterosexual Gender identity: Female Cognitive needs: No Hearing needs: No Vision needs: Yes Female Reproductive History Menstrual Age of Menarche: 8 Questionnaire Thrive Questionnaire Date Thrive assessed: 12/30/23 STEPHANIE-7 AMB Questionnaire STEPHANIE-7 Date STEPHANIE - 7 assessed: 10/17/23 Source: Developed by Drs. Cuco Richards, Itzel Ordaz, Eliud Ladd and colleagues, with an educational lino from [employer]. Review of Systems Const All systems reviewed & are unremarkable except as noted in HPI and below Physical exam (Primary Care) Vital Signs: Last Vital Signs BP 120/68 01/10/24 14:28 BMI result Body Mass Index 38.4 Tobacco/Smoking Status: Tobacco use Status Tobacco use date assessed 01/10/24 01/10/24 14:35 Patient Tobacco Use Status Former Tobacco user 01/10/24 14:25 Tobacco use type 11/15/23 08:48 e-Cigarette/Vaping Use Never Used 01/10/24 14:25 Thrive Assessment: Date of Thrive Assessment Date Thrive assessed 12/30/23 01/10/24 14:25 Const General: no acute distress Nutritional Appearance: obese Orientation/consciousness: patient oriented x3 GI Inspection: Yes normal to inspection and Yes obesity Palpation (GI): Soft to palpation, Tenderness to palpation present (GI) periumbilically and suprapubicly and No hepatosplenomegaly present Auscultation: normal bowel sounds General: Yes no CVA tenderness Back/Spine/Pelvis Back: no CVA tenderness Neuro General: patient oriented x3, gait normal and moves all extremities Psych Speech and movement: Normal speech and movement present Vital Signs: Last Vital Signs BP 120/68 01/10/24 14:28 BMI result Body Mass Index 38.4 Const General: no acute distress Nutritional Appearance: obese Orientation/consciousness: patient oriented x3 GI Inspection: Yes normal to inspection and Yes obesity Palpation (GI): Soft to palpation, Tenderness to palpation present (GI) pe riumbilically and suprapubicly and No hepatosplenomegaly present Auscultation: normal bowel sounds General: Yes no CVA tenderness Back/Spine/Pelvis Back: no CVA tenderness Neuro General: patient oriented x3, gait normal and moves all extremities Psych Speech and movement: Normal speech and movement present Assessment and Plan Assessment & Plan (1) Calculus of left ureter: Code(s): N20.1 - Calculus of ureter Plan: F/u with Urology as scheduled Hydrate with plenty of water and fluids Continue on Acetaminophen and Ibuprofen for pain relief. (2) Pyelonephritis: Code(s): N12 - Tubulo-interstitial nephritis, not specified as acute or chronic Plan: Infection resolved. 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 She has a procedure scheduled on 01/2024 for ESWL and Stent PCNL. F/U with Urology. Coding Level of Care Code Est Pt Level 4 (79426) Diagnoses Calculus of left ureter N20.1 Pyelonephritis N12 Comment Spent 20 minutes on hospital notes review
[2024-01-10 14:28] VITALS: BP 120/68; BMI 38.4
== END 2024-01-10 15:01 | disposition home or self-care (01) ==
PROVIDERS: PCP Internal Medicine; Visit Provider Nurse Practitioner Family
DX: N20.1 Calculus of ureter (principal); N12 Tubulo-interstitial nephritis, not specified as acute or chronic
CPT/HCPCS: 99214

== ENCOUNTER 2024-01-28 08:56 | Outpatient (REF) | payer OTHER, SELFPAY ==
[2024-01-28 10:39] LABS: Appearance Urine Clear; Color Urine Yellow; Glucose Urine UA Negative (Negative); Leukocyte Esterase Urine Moderate (2+) (Negative); Nitrite Urine Negative (Negative); PH 7.5 (5.0-9.0); Specific Gravity - Urine 1.015 (1.005-1.025); UMIC TRIGGER UA YES; Urine Blood Large (3+) (Negative); Urine Ketones Negative (Negative); Urine Protein Trace mg/dL (Neg-Trace)
[2024-01-28 10:46] LABS: Bacteria Urine None Seen (None Seen); Hyaline Casts Urine 0-2 /LPF (0-2); RBC Urine >20 /HPF (0-2)
== END 2024-01-28 08:57 | disposition home or self-care (01) ==
LOC: HO.LAB 08:56
PROVIDERS: PCP Internal Medicine; Visit Provider Urology
DX: N20.1 Calculus of ureter (principal); N39.0 Urinary tract infection, site not specified
CPT/HCPCS: 81001; 87086

== ENCOUNTER 2024-02-05 09:26 | Day surgery (SDC) | payer OTHER, SELFPAY ==
--- NOTE | 2024-02-03 15:08 | HO.ANESPROP2 ---
Documented by User: Shirley Caballero NP 02/03/24 15:13 HPI - Anesthesia Eval Consult details Narrative: 33yo F for Left Lithotripsy ESW with stent removal s/p cysto, stent 12/2023 with GA-LMA (Pt with CP/ESPINOSA/elevated BP/alt mental status preop cysto, stent. Resolved with hydralazine and fentanyl. Postponed for one day without further occurance. See anesthesia event note 12/30/23) PMFSH Active Problems Active Problems: All Active Problems Obstruction of left ureteropelvic junction due to stone (Acute) Obstructive uropathy (Acute) Right shoulder strain (Acute) Asthma-COPD overlap syndrome (Acute) Elevated LFTs (Acute) Torticollis (Acute) Strain of cervical portion of left trapezius muscle (Acute) Preoperative examination (Acute) Cholelithiasis with chronic cholecystitis (Acute) COPD (chronic obstructive pulmonary disease) (Acute) Loud snoring (Acute) Daytime somnolence (Acute) Environmental and seasonal allergies (Acute) Biliary dyskinesia (Acute) Left breast lump (Acute) Calculus of kidney (Acute) RUQ abdominal pain (Acute) Anemia (Acute) Bipolar 2 disorder (Acute) ADHD (Acute) Chronic idiopathic constipation (Acute) Delayed gastric emptying (Acute) GERD (gastroesophageal reflux disease) (Acute) Gestational diabetes (Acute) Hypertension (Acute) Depression (Acute) Gastritis (Acute) S/P laparoscopic cholecystectomy (Acute 03/06/23) Benign essential hypertension (Acute) Depression (Acute) Insomnia (Acute) Morbid obesity with BMI of 40.0-44.9, adult (Acute) Carpal tunnel syndrome, bilateral (Acute) PCOS (polycystic ovarian syndrome) (Acute) Fibromyalgia (Acute) Migraines (Acute) Hyperlipemia (Acute) Past Medical History Medical History Encounter for preoperative pulmonary examination Benign essential hypertension Gallstones Thoracic back pain Depression Tension headache Myofascial pain Sacroiliac joint pain Bilateral primary osteoarthritis of hip Post depression BMI 39.0-39.9,adult Trigger finger of left thumb Trigger finger of right thumb Insomnia Morbid obesity with BMI of 40.0-44.9, adult Smoker Annual physical exam Carpal tunnel syndrome, bilateral Personal history of gestational diabetes Obesity (BMI 30-39.9) Supervision of other high risk , antepartum Supervision of other normal PCOS (polycystic ovarian syndrome) control counseling Migraines Vulvar cyst Anxiety Hyperlipemia Fibromyalgia Rheumatoid arthritis Family History Family History Father Medical history unknown Mother Diabetes Hypertension Maternal Aunt Breast cancer Ovarian cancer Mental health disorder Maternal Grandmother Diabetes Hypertension Family history of problems with anesthesia: No Surgical History Surgical History S/P laparoscopic cholecystectomy (03/06/23) H/O tubal ligation History of hip replacement, total History of esophagogastroduodenoscopy (EGD) History of removal of cyst History of tonsillectomy and adenoidectomy History of Problems with Anesthesia: No Social History Social History Household Members: Significant Other and Children Housing: House Alcohol intake: current Alcohol intake frequency: holidays/special occasions only Patient Tobacco Use Status: Former Tobacco user Tobacco use type: Cigarette e-Cigarette/Vaping Use: Never Used Second Hand Smoke Exposure: No Use of substances other than those prescribed or required for medical reasons: Yes Substance Use Type: Marijuana Are you DNR?: No Advance Directives: No Advance Directives Information Provided: Yes service: No Current occupational status: disabled Sexual orientation: Straight/Heterosexual Gender identity: Female Cognitive needs: No Hearing needs: No Vision needs: Yes Meds Allergies Allergy/AdvReac Type Severity Reaction Status Date / Time amoxicillin [AMOXICILLIN] Allergy Intermediate NAUSEA & Verified 01/10/24 14:28 VOMITING, stomach pain, vomiting, stomach upset topiramate [From TOPAMAX] Allergy Intermediate TREMORS, Verified 01/10/24 14:28 nausea and vomiting latex [LATEX] Allergy Mild RASH Verified 01/10/24 14:28 medroxyprogesterone Allergy Mild RASH Verified 01/10/24 14:28 [From PROVERA] lactose Allergy bloating , Verified 01/10/24 14:28 diarrhea Home Medications ?Medication ?Instructions ?Recorded ?Confirmed ?Last Taken ?Type sertraline 100 mg tablet 100 mg PO DAILY 08/22/20 12/29/23 12/27/23 History morphine 15 mg immediate release 15 mg PO BID PRN Pain 11/15/23 12/29/23 12/27/23 History tablet acetaminophen 325 mg tablet 650 mg PO Q6H PRN Pain 12/29/23 12/29/23 Unknown History (Tylenol) albuterol sulfate 2.5 mg/3 mL 2.5 mg inhalation Q6H PRN 12/29/23 12/29/23 12/27/23 History (0.083 %) solution for nebulization Shortness Of Breath Or Wheezing albuterol sulfate 90 mcg/actuation 2 inh inhalation Q6H PRN shortness 12/29/23 12/29/23 12/27/23 History breath activated powder inhaler of breath or wheezing bupropion HCl 300 mg 24 hr tablet, 300 mg PO DAILY 12/29/23 12/29/23 12/27/23 History extended release dexlansoprazole 60 mg 60 mg PO DAILY@0630 12/29/23 12/29/23 12/27/23 History capsule,biphase delayed release (Dexilant) hydroxyzine HCl 25 mg tablet 25 mg PO DAILY anxiety 12/29/23 12/29/23 12/27/23 History linaclotide 290 mcg capsule 290 mcg PO DAILY 12/29/23 12/29/23 12/27/23 History (Linzess) [id number] 1 cap PO TIDWM 12/29/23 12/29/23 12/27/23 History 36,000-114,000-180,000 unit capsule,delay rel (Creon) lorazepam 1 mg tablet 1 mg PO DAILY PRN Anxiety 12/29/23 12/29/23 02/05/24 History metoclopramide HCl 5 mg tablet 5 mg PO BID 12/29/23 12/29/23 12/27/23 History (Reglan) Assessment and Plan Assessment Anesthesia Assessment: Chart Reviewed Final Anesthetic Review Family History of Problems with Anesthesia: No History of Problems with Anesthesia: No Documented by User: Suzette Walden MD 02/05/24 13:24 PMFSH Past Medical History Medical History Encounter for preoperative pulmonary examination Benign essential hypertension Gallstones Thoracic back pain Depression Tension headache Myofascial pain Sacroiliac joint pain Bilateral primary osteoarthritis of hip Post depression BMI 39.0-39.9,adult Trigger finger of left thumb Trigger finger of right thumb Insomnia Morbid obesity with BMI of 40.0-44.9, adult Smoker Annual physical exam Carpal tunnel syndrome, bilateral Personal history of gestational diabetes Obesity (BMI 30-39.9) Supervision of other high risk , antepartum Supervision of other normal PCOS (polycystic ovarian syndrome) control counseling Migraines Vulvar cyst Anxiety Hyperlipemia Fibromyalgia Rheumatoid arthritis Family History Family History Father Medical history unknown Mother Diabetes Hypertension Maternal Aunt Breast cancer Ovarian cancer Mental health disorder Maternal Grandmother Diabetes Hypertension Surgical History Surgical History S/P laparoscopic cholecystectomy (03/06/23) H/O tubal ligation History of hip replacement, total History of esophagogastroduodenoscopy (EGD) History of removal of cyst History of tonsillectomy and adenoidectomy Social History Social History Household Members: Significant Other and Children Housing: House Alcohol intake: current Alcohol intake frequency: holidays/special occasions only Patient Tobacco Use Status: Former Tobacco user Tobacco use type: Cigarette e-Cigarette/Vaping Use: Never Used Second Hand Smoke Exposure: No Use of substances other than those prescribed or required for medical reasons: Yes Substance Use Type: Marijuana Are you DNR?: No Advance Directives: No Advance Directives Information Provided: Yes service: No Current occupational status: disabled Sexual orientation: Straight/Heterosexual Gender identity: Female Cognitive needs: No Hearing needs: No Vision needs: Yes Meds Allergies Allergy/AdvReac Type Severity Reaction Status Date / Time amoxicillin [AMOXICILLIN] Allergy Intermediate NAUSEA & Verified 01/10/24 14:28 VOMITING, stomach pain, vomiting, stomach upset topiramate [From TOPAMAX] Allergy Intermediate TREMORS, Verified 01/10/24 14:28 nausea and vomiting latex [LATEX] Allergy Mild RASH Verified 01/10/24 14:28 medroxyprogesterone Allergy Mild RASH Verified 01/10/24 14:28 [From PROVERA] lactose Allergy bloating , Verified 01/10/24 14:28 diarrhea Home Medications ?Medication ?Instructions ?Recorded ?Confirmed ?Last Taken ?Type sertraline 100 mg tablet 100 mg PO DAILY 08/22/20 12/29/23 12/27/23 History morphine 15 mg immediate release 15 mg PO BID PRN Pain 11/15/23 12/29/23 12/27/23 History tablet acetaminophen 325 mg tablet 650 mg PO Q6H PRN Pain 12/29/23 12/29/23 Unknown History (Tylenol) albuterol sulfate 2.5 mg/3 mL 2.5 mg inhalation Q6H PRN 12/29/23 12/29/23 12/27/23 History (0.083 %) solution for nebulization Shortness Of Breath Or Wheezing albuterol sulfate 90 mcg/actuation 2 inh inhalation Q6H PRN shortness 12/29/23 12/29/23 12/27/23 History breath activated powder inhaler of breath or wheezing bupropion HCl 300 mg 24 hr tablet, 300 mg PO DAILY 12/29/23 12/29/23 12/27/23 History extended release dexlansoprazole 60 mg 60 mg PO DAILY@0630 12/29/23 12/29/23 12/27/23 History capsule,biphase delayed release (Dexilant) hydroxyzine HCl 25 mg tablet 25 mg PO DAILY anxiety 12/29/23 12/29/23 12/27/23 History linaclotide 290 mcg capsule 290 mcg PO DAILY 12/29/23 12/29/23 12/27/23 History (Linzess) [id number] 1 cap PO TIDWM 12/29/23 12/29/23 12/27/23 History 36,000-114,000-180,000 unit capsule,delay rel (Creon) lorazepam 1 mg tablet 1 mg PO DAILY PRN Anxiety 12/29/23 12/29/23 02/05/24 History metoclopramide HCl 5 mg tablet 5 mg PO BID 12/29/23 12/29/23 12/27/23 History (Reglan) Exam Airway Mallampati Class: II TM Dist: >3cm Neck ROM: Full Heart: rrr Lungs: cta Assessment and Plan Assessment Anesthesia Assessment: Anesthesia Plan Discussed Final Anesthetic Review NPO: Yes ASA Class: III Final Preanesthetic Review: No Changes in Pt Med Stat, Meds/Allgs Chart Reviewed and Consent Obtained/Reviewed Patient Risk: Low Procedure Risk: Low Anesthetic Plan Anesthetic Plan: MAC: Disposition: Standard PACU
--- NOTE | ~2024-02-05 | XR_ITS ---
EXAMINATION: XR ABDOMEN KUB CLINICAL INDICATION: Left kidney stone COMPARISON: KUB on 01/07/2024 TECHNIQUE: AP view of the abdomen. FINDINGS: AP supine x-rays of the abdomen show nonspecific bowel gas pattern. No abnormal bowel dilatation is seen. Left ureteric double-pigtail stent is present. A persistent tiny 0.2 cm left mid renal calculus is present. There is an doubtful appearance of a 0.5 cm calculus at proximal left ureter at lower L2 level, overlapping the proximal left ureteric stent. Surgical clips are seen in medial right orbit abdomen. Bilateral total hip arthroplasty prostheses are partially visualized. XR/XR KUB IMPRESSION: 1. Unchanged tiny left mid renal calculus. 2. No interval change in position of the left ureteric double-pigtail stent. 3. Interval appearance of proximal left ureteric calculus overlapping the ureteric stent. 4. No signs of intestinal obstruction. 5. Unchanged status post cholecystectomy and bilateral total hip arthroplasty. Electronically signed by: Harriet Diaz MD 02/05/2024 12:37 PM EDT
[2024-02-05 09:58] LABS: UPreg QC Valid YES; Urine Pregnancy NEGATIVE (NEGATIVE)
[2024-02-05 10:29] VITALS: BMI 39.1
[2024-02-05 10:43] VITALS: BP 134/69; PULSE 67; RESP 16; TEMP 36.7; O2SAT 99
[2024-02-05] MEDS: Lactated Ringers 1,000 ML 100 ML IVCONT (10:54)
--- NOTE | 2024-02-05 13:22 | MHC.SHP ---
Pre-Procedural Eval Section A - 24 Hr Update-Section A only Date of Service: 02/05/24 The patient is an INPATIENT: No Changes since office visit: No Cold of Flu in the past 2 weeks, No New Medical Problems, No Changes in Medication and No Patient answered all questions The patient has been examined within 24 hours of the surgical procedure. The History & Physical has been completed within 30 days and I have reviewed it.: Yes Section B - Complete if H&P > 30 days Chief Complaint: Calculus of ureter Details of Present Illness: left renal stone Relevant Social History: None Present Medications: see Short Stay Collaborative assessment Medical History: No relevant PMH History of Previous Operations: Relevant previous surgery/procedure and date(s) Allergies: Allergies Allergy/AdvReac Type Severity Reaction Status Date / Time amoxicillin [AMOXICILLIN] Allergy Intermediate NAUSEA & Verified 01/10/24 14:28 VOMITING, stomach pain, vomiting, stomach upset topiramate [From TOPAMAX] Allergy Intermediate TREMORS, Verified 01/10/24 14:28 nausea and vomiting latex [LATEX] Allergy Mild RASH Verified 01/10/24 14:28 medroxyprogesterone Allergy Mild RASH Verified 01/10/24 14:28 [From PROVERA] lactose Allergy bloating , Verified 01/10/24 14:28 diarrhea Review of Systems Sugical H&P ROS: Negative: Constitution, Cardiovascular, Respiratory, Neurological, Psychiatric, Hem-Onc, Allergic/Immunologic, Gastrointestinal, Genitourinary, Musculoskeletal, Integumentary, Endocrine and Eyes/Ears/Nose/Throat Exam Surgical H&P Exam: Normal: HEENT, Normal: Heart, Normal: Lungs, Normal: Extremities, Normal: Abdomen, Normal: Skin and Normal: Neurological Plan Diagnosis/Plan: Unchanged (left ureter eswl with cysto and stent removal) I have reviewed the history and physical and performed a pertinent physical examination on my patient. No changes have occurred unless specified. Time Spent With Patient Time: Total time managing care of this patient today ____ minutes.
--- NOTE | 2024-02-05 14:03 | W.PM.OPN ---
Operative Note Operative Note Date of Service: 02/05/24 Narrative: PreOperative Diagnosis: left Renal stones with stent Post Operative Diagnosis: left Renal stones Procedure: left ESWL cysto left stent removal Surgeon: Dr Jayson Rausch Anesthesia: mac/sedation Indications for procedure: The patient understands ESWL may be a staged procedure and subsequent intervention may be required based on imaging after ESWL. Quoted stone clearance rates for a solitary procedure are in the 70-80% range based primarily on stone location. They also understand there is a risk of bleeding to the kidney, infection, damage to adjacent organs, and stone migration following the procedure. - Imaging 8mm left UPJ stone Procedure optimization has been performed with IV acetaminophen given in the holding area and 1 L of lactated Ringer's to be given in order to optimize the fluid-stone interface. 20 mg of IV Lasix will be given in the last 5 minutes of the procedure to optimize stone clearance. Procedure: After informed consent was verified the patient was brought to the operating room and placed in a supine position. Anesthesia was performed per protocol. Safety pause time-out was performed. Imaging was displayed in the room and laterality confirmed. ESWL was performed. The 1st 500 shocks were performed at 60 hertz. These were performed with increasing power. Once maximum power was reached the rate was increased to 180 hertz. A total of 2500 shocks were given. Targeted imaging with ultrasound/fluoroscopy showed stone smudging suggestive of disintegration. Cystoscopy perforrmed with left stent removal The patient tolerated the procedure well and was transferred to the recovery area upon completion. Post procedure imaging will be organized. There was no evidence for flank discoloration.
--- NOTE | 2024-02-05 14:15 | W.PM.OPN ---
Operative Note Operative Note Date of Service: 02/05/24 Narrative: PreOperative Diagnosis: [] Renal stones Post Operative Diagnosis: [] Renal stones Procedure: [] ESWL Surgeon: Dr Jayson Rausch Anesthesia: mac/sedation Indications for procedure: The patient understands ESWL may be a staged procedure and subsequent intervention may be required based on imaging after ESWL. Quoted stone clearance rates for a solitary procedure are in the 70-80% range based primarily on stone location. They also understand there is a risk of bleeding to the kidney, infection, damage to adjacent organs, and stone migration following the procedure. - Imaging [] Procedure optimization has been performed with IV acetaminophen given in the holding area and 1 L of lactated Ringer's to be given in order to optimize the fluid-stone interface. 20 mg of IV Lasix will be given in the last 5 minutes of the procedure to optimize stone clearance. Procedure: After informed consent was verified the patient was brought to the operating room and placed in a supine position. Anesthesia was performed per protocol. Safety pause time-out was performed. Imaging was displayed in the room and laterality confirmed. ESWL was performed. The 1st 500 shocks were performed at 60 hertz. These were performed with increasing power. Once maximum power was reached the rate was increased to 180 hertz. A total of 2500 shocks were given. Targeted imaging with ultrasound/fluoroscopy showed stone smudging suggestive of disintegration. The patient tolerated the procedure well and was transferred to the recovery area upon completion. Post procedure imaging will be organized. There was no evidence for flank discoloration.
[2024-02-05 14:30] VITALS: BP 108/85; PULSE 70; RESP 16; TEMP 36.1; O2SAT 98
--- NOTE | 2024-02-05 14:32 | HO.ANESPROP2 ---
ON LICENSE OF [facility] Active Problems Active Problems: All Active Problems Obstruction of left ureteropelvic junction due to stone (Acute) Obstructive uropathy (Acute) Right shoulder strain (Acute) Asthma-COPD overlap syndrome (Acute) Elevated LFTs (Acute) Torticollis (Acute) Strain of cervical portion of left trapezius muscle (Acute) Preoperative examination (Acute) Cholelithiasis with chronic cholecystitis (Acute) COPD (chronic obstructive pulmonary disease) (Acute) Loud snoring (Acute) Daytime somnolence (Acute) Environmental and seasonal allergies (Acute) Biliary dyskinesia (Acute) Left breast lump (Acute) Calculus of kidney (Acute) RUQ abdominal pain (Acute) Anemia (Acute) Bipolar 2 disorder (Acute) ADHD (Acute) Chronic idiopathic constipation (Acute) Delayed gastric emptying (Acute) GERD (gastroesophageal reflux disease) (Acute) Gestational diabetes (Acute) Hypertension (Acute) Depression (Acute) Gastritis (Acute) S/P laparoscopic cholecystectomy (Acute 03/06/23) Benign essential hypertension (Acute) Depression (Acute) Insomnia (Acute) Morbid obesity with BMI of 40.0-44.9, adult (Acute) Carpal tunnel syndrome, bilateral (Acute) PCOS (polycystic ovarian syndrome) (Acute) Fibromyalgia (Acute) Migraines (Acute) Hyperlipemia (Acute) Past Medical History Medical History Anxiety Encounter for preoperative pulmonary examination Benign essential hypertension Gallstones Thoracic back pain Depression Tension headache Myofascial pain Sacroiliac joint pain Bilateral primary osteoarthritis of hip Post depression BMI 39.0-39.9,adult Trigger finger of left thumb Trigger finger of right thumb Insomnia Morbid obesity with BMI of 40.0-44.9, adult Smoker Annual physical exam Carpal tunnel syndrome, bilateral Personal history of gestational diabetes Obesity (BMI 30-39.9) Supervision of other high risk , antepartum Supervision of other normal PCOS (polycystic ovarian syndrome) control counseling Migraines Vulvar cyst Anxiety Hyperlipemia Fibromyalgia Rheumatoid arthritis Patient : No Family History Family History Father Medical history unknown Mother Diabetes Hypertension Maternal Aunt Breast cancer Ovarian cancer Mental health disorder Maternal Grandmother Diabetes Hypertension Family history of problems with anesthesia: No Surgical History Surgical History S/P laparoscopic cholecystectomy (03/06/23) H/O tubal ligation History of hip replacement, total History of esophagogastroduodenoscopy (EGD) History of removal of cyst History of tonsillectomy and adenoidectomy History of Problems with Anesthesia: No Social History Social History Household Members: Significant Other and Children Housing: House Alcohol intake: current Alcohol intake frequency: holidays/special occasions only Patient Tobacco Use Status: Former Tobacco user Tobacco use type: Cigarette e-Cigarette/Vaping Use: Never Used Second Hand Smoke Exposure: No Use of substances other than those prescribed or required for medical reasons: Yes Substance Use Type: Marijuana Are you DNR?: No Advance Directives: No Advance Directives Information Provided: Yes service: No Current occupational status: disabled Sexual orientation: Straight/Heterosexual Gender identity: Female Cognitive needs: No Hearing needs: No Vision needs: Yes Meds Allergies Allergy/AdvReac Type Severity Reaction Status Date / Time amoxicillin [AMOXICILLIN] Allergy Intermediate NAUSEA & Verified 01/10/24 14:28 VOMITING, stomach pain, vomiting, stomach upset topiramate [From TOPAMAX] Allergy Intermediate TREMORS, Verified 01/10/24 14:28 nausea and vomiting latex [LATEX] Allergy Mild RASH Verified 01/10/24 14:28 medroxyprogesterone Allergy Mild RASH Verified 01/10/24 14:28 [From PROVERA] lactose Allergy bloating , Verified 01/10/24 14:28 diarrhea Active Medications: Current Medications Albuterol Sulfate (Albuterol Sulfate (0.083%) 2.5 Mg/3 Ml Vial.Neb) 2.5 mg INHALE ONCE PRN PRN Reason: Shortness of Breath/Wheezing Fentanyl (Fentanyl Citrate/Pf 100 Mcg/2 Ml Vial) 50 mcg IVPUSH Q5M PRN PRN Reason: Pain, Moderate to Severe (Pain Scale 4-10) Stop: 02/05/24 19:24 Lactated Ringer's (Lr) 1,000 mls @ 100 mls/hr IVCONT .Q10H MARY Last Admin: 02/05/24 10:54 Dose: 100 mls/hr Oxycodone HCl (Oxycodone Hcl Immed Release 5 Mg Tablet) 5 mg PO ONCE PRN PRN Reason: Pain, Moderate(Pain Scale 4-6) if no IV Access Stop: 02/05/24 19:24 Oxycodone HCl (Oxycodone Hcl Immed Release 5 Mg Tablet) 5 mg PO Q4H PRN PRN Reason: Pain, Mild (Pain Scale 1-3) Home Medications ?Medication ?Instructions ?Recorded ?Confirmed ?Last Taken ?Type sertraline 100 mg tablet 100 mg PO DAILY 08/22/20 12/29/23 12/27/23 History morphine 15 mg immediate release 15 mg PO BID PRN Pain 11/15/23 12/29/23 12/27/23 History tablet acetaminophen 325 mg tablet 650 mg PO Q6H PRN Pain 12/29/23 12/29/23 Unknown History (Tylenol) albuterol sulfate 2.5 mg/3 mL 2.5 mg inhalation Q6H PRN 12/29/23 12/29/23 12/27/23 History (0.083 %) solution for nebulization Shortness Of Breath Or Wheezing albuterol sulfate 90 mcg/actuation 2 inh inhalation Q6H PRN shortness 12/29/23 12/29/23 12/27/23 History breath activated powder inhaler of breath or wheezing bupropion HCl 300 mg 24 hr tablet, 300 mg PO DAILY 12/29/23 12/29/23 12/27/23 History extended release dexlansoprazole 60 mg 60 mg PO DAILY@0630 12/29/23 12/29/23 12/27/23 History capsule,biphase delayed release (Dexilant) hydroxyzine HCl 25 mg tablet 25 mg PO DAILY anxiety 12/29/23 12/29/23 12/27/23 History linaclotide 290 mcg capsule 290 mcg PO DAILY 12/29/23 12/29/23 12/27/23 History (Linzess) npmoni-auumruqd-ipyexfh 1 cap PO TIDWM 12/29/23 12/29/23 12/27/23 History 36,000-114,000-180,000 unit capsule,delay rel (Creon) lorazepam 1 mg tablet 1 mg PO DAILY PRN Anxiety 12/29/23 12/29/23 02/05/24 History metoclopramide HCl 5 mg tablet 5 mg PO BID 12/29/23 12/29/23 12/27/23 History (Reglan) Exam Height,Weight and Vital Signs: Height 5 ft 1 in Weight 93.95 kg Last Vital Signs Temp 98.0 F 02/05/24 10:43 Pulse 67 02/05/24 10:43 Resp 16 02/05/24 10:43 BP 134/69 02/05/24 10:43 Pulse Ox 99 02/05/24 10:43 O2 Del Method Room Air 02/05/24 10:43 Pertinent Lab Results Pertinent Lab Results: Laboratory Tests 02/05/24 09:26 Urine Test NEGATIVE Airway Mallampati Class: II TM Dist: >3cm Neck ROM: Full Heart: RRR Lungs: CTA Assessment and Plan Assessment Anesthesia Assessment: Anesthesia Plan Discussed and Chart Reviewed Final Anesthetic Review Family History of Problems with Anesthesia: No History of Problems with Anesthesia: No NPO: Yes ASA Class: III Final Preanesthetic Review: Meds/Allgs Chart Reviewed, Consent Obtained/Reviewed and Anes Risks/Benef Reviewed Patient Risk: Intermediate Procedure Risk: Low Anesthetic Plan Anesthetic Plan: MAC: Disposition: Standard PACU
--- NOTE | 2024-02-05 14:34 | HO.POSTANES ---
Post Anesthesia Evaluation Post Anesthesia Evaluation Date of Service: 02/05/24 Vital Signs: Vital Signs Temp Pulse Resp BP Pulse Ox O2 Del Method 02/05/24 10:43 98.0 F 67 16 134/69 99 Room Air Anesthesia: General LMA Mental Status: Awake Pain Control: Satisfactory Nausea/Vomiting: None Hydration: Adequate Anesthesia-Related Issues: No Anes. Related Issues
[2024-02-05] MEDS: Ketorolac Tromethamine 15 MG/ML VIAL IVPUSH (14:41)
[2024-02-05 14:45] VITALS: BP 172/87; PULSE 63; RESP 18; TEMP 36.1; O2SAT 100
== END 2024-02-05 15:37 | disposition home or self-care (01) ==
PROVIDERS: PCP Internal Medicine; Visit Provider Urology
PROC: (CPT 50590; principal; 2024-02-05 11:30)
DX: N20.1 Calculus of ureter (principal); Z96.0 Presence of urogenital implants; D64.9 Anemia, unspecified; I10 Essential (primary) hypertension; E78.5 Hyperlipidemia, unspecified; M79.7 Fibromyalgia; M06.9 Rheumatoid arthritis, unspecified; E66.01 Morbid (severe) obesity due to excess calories; Z79.899 Other long term (current) drug therapy; Z88.1 Allergy status to other antibiotic agents; Z88.8 Allergy status to other drugs, medicaments and biological substances; Z91.040 Latex allergy status; E73.9 Lactose intolerance, unspecified; Z98.890 Other specified postprocedural states; Z87.891 Personal history of nicotine dependence
CPT/HCPCS: 50590; 52310; 74018; 81025; J0131; J1885; J1940; J1956; J2250; J2405; J2704; J3010

== ENCOUNTER → 2024-02-05 09:26 | Outpatient (BNV) | payer OTHER, SELFPAY | PROVIDERS: PCP Internal Medicine; Visit Provider Urology | DX: N20.0 Calculus of kidney (principal); Z96.0 Presence of urogenital implants | CPT/HCPCS: 50590; 52310 ==

== ENCOUNTER 2024-03-03 10:05 | Outpatient (AMB) | payer OTHER, SELFPAY ==
--- NOTE | 2024-03-03 10:11 | A.OFFPC_ITS ---
Vital Signs 03/03/24 10:12 Height 5 ft 1 in Weight 204 lb BMI 38.5 BP 112/80 Blood Pressure Location Lt brachial Position Sitting Pulse 68 Pulse Source Pulse Oximeter Pulse Oximetry (%) 98 Oxygen Delivery Method Room Air Intake Visit Reasons: 4 Month F/U Tools Developer Required: No Accompanied by: Self / Same As Patient Allergies amoxicillin [AMOXICILLIN] Allergy (Intermediate, Verified 03/03/24 10:30) NAUSEA & VOMITING, stomach pain, vomiting, stomach upset topiramate [From TOPAMAX] Allergy (Intermediate, Verified 03/03/24 10:30) TREMORS, nausea and vomiting latex [LATEX] Allergy (Mild, Verified 03/03/24 10:30) RASH medroxyprogesterone [From PROVERA] Allergy (Mild, Verified 03/03/24 10:30) RASH lactose Allergy (Verified 03/03/24 10:30) bloating , diarrhea Medication List - Last Reconciled 03/03/24 by Jarrod Sherman MD acetaminophen (Tylenol) 650 mg PO Q6H PRN albuterol sulfate 90 mcg/actuation 2 inhalations inhalation Q6H PRN albuterol sulfate 2.5 mg inhalation Q6H PRN [BEDSIDE COMMODE As directed] budesonide-formoterol 160-4.5 mcg/actuation (Symbicort) 2 puffs inhalation Q12H bupropion HCl XL 300 mg PO DAILY dexlansoprazole (Dexilant) 60 mg PO DAILY@0630 [FRONT-WHEELED WALKER As directed] gabapentin 400 mg PO TID 30 days hydroxyzine HCl 25 mg PO DAILY ibuprofen (IBU) 800 mg PO Q8H PRN 30 days labetalol 100 mg PO BID 90 days lancets (FreeStyle Lancets) 4 times/day linaclotide (Linzess) 290 mcg PO DAILY vzgpli-[id number]-bbmcknx 36,000-114,000- 180,000 unit (Creon) 1 cap PO TIDWM lorazepam 1 mg PO DAILY PRN metoclopramide HCl (Reglan) 5 mg PO BID naproxen 500 mg PO BID PRN 7 days nebulizers (Compact Compressor Nebulizer) As directed phenazopyridine 100 mg PO Q8H 14 days pyridoxine (vitamin B6) 100 mg PO DAILY 90 days sertraline 100 mg PO DAILY tamsulosin 0.4 mg PO BEDTIME 14 days [TUB SEAT with BACK As directed] Tobacco use date assessed: 03/03/24 Dental Screening Dental Screen Date: 03/03/24 Did you have a dental visit in the last 12 months?: Yes Did you have a dental problem in the last 6 months where you did not have access to dental care?: No Was dental information given to patient?: Patient has dentist HPI 4 Month F/U HPI Details Patient comes in today for her follow up visit States that she was exposed to someone yesterday who tested positive for COVID Relates that she has been feeling somewhat SOB since she woke up this morning and is concerned that she may be coming down now with COVID She denies any nasal or sinus congestion or sore throat at present Denies any fever, headaches or dizziness Denies any cough or chest pains No nausea/vomiting, no abdominal pain No change in bowel habits noted She was not able to get her follow up labs done prior to her appointment today She had ESWL with Dr. Rausch a few weeks ago - states that she has not had any flank pains or hematuria lately and denies any pain or burning sensation on urination FOR[facility]LY [facility] Medical History (Updated 03/03/24 @ 11:01 by Jarrod Sherman MD) Obesity (BMI 30-39.9) Anxiety Encounter for preoperative pulmonary examination Benign essential hypertension Gallstones Thoracic back pain Depression Tension headache Myofascial pain Sacroiliac joint pain Bilateral primary osteoarthritis of hip Post depression BMI 39.0-39.9,adult Trigger finger of left thumb Trigger finger of right thumb Insomnia Morbid obesity with BMI of 40.0-44.9, adult Smoker Annual physical exam Carpal tunnel syndrome, bilateral Personal history of gestational diabetes Supervision of other high risk , antepartum Supervision of other normal PCOS (polycystic ovarian syndrome) control counseling Migraines Vulvar cyst Anxiety Hyperlipemia Fibromyalgia Rheumatoid arthritis Surgical History (Updated 03/03/24 @ 10:56 by Jarrod Sherman MD) S/P laparoscopic cholecystectomy (03/06/23) H/O tubal ligation History of hip replacement, total History of esophagogastroduodenoscopy (EGD) History of removal of cyst History of tonsillectomy and adenoidectomy Family History Father Medical history unknown Mother Diabetes Hypertension Maternal Aunt Breast cancer Ovarian cancer Mental health disorder Maternal Grandmother Diabetes Hypertension Social History Household Members: Significant Other and Children Housing: House Alcohol intake: current Alcohol intake frequency: holidays/special occasions only Patient Tobacco Use Status: Former Tobacco user Tobacco use type: Cigarette e-Cigarette/Vaping Use: Never Used Second Hand Smoke Exposure: No Substance Use Type: Marijuana service: No Current occupational status: disabled Sexual orientation: Straight/Heterosexual Gender identity: Female Cognitive needs: No Hearing needs: No Vision needs: Yes Female Reproductive History Menstrual Age of Menarche: 8 Questionnaire PHQ-9 Over the last 2 weeks, how often have you been bothered by any of the following problems? 1. Little interest or pleasure in doing things: several days 2. Feeling down, depressed, or hopeless: several days 3. Trouble falling or staying asleep, or sleeping too much: several days 4. Feeling tired or having little energy: several days 5. Poor appetite or overeating: several days 6. Feeling bad about yourself - or that you are a failure or have let yourself or your family down: several days 7. Trouble concentrating on things, such as reading the newspaper or watching television: several days 8. Moving or speaking so slowly that other people could have noticed. Or the opposite - being so fidgety or restless that you have been moving around a lot more than usual: not at all 9. Thoughts that you would be better off or of hurting yourself in some way: not at all Total score: 7 Depression Screening Interpretation: Positive Depression Screening Follow-up: Existing condition and In treatment Depression Screening Done: Yes 82778 - PHQ-9 Billing: Yes Source: Developed by Drs. Cuco Richards, Itzel Ordaz, Eliud Ladd and colleagues, with an educational lino from [employer]. Thrive Questionnaire Date Thrive assessed: 03/03/24 I am a: Patient What is your living situation today?: I have a steady place to live Within the past 12 months, did the food you bought not last and you didn't have the money to get more?: Never true Within the past 12 months, did you worry whether your food would run out before you got money to buy more?: Never true Do you have trouble paying for medicines?: No Do you have trouble getting transportation to medical appointments?: No Do you have trouble paying your heating and electricity bill?: No Do you have trouble taking care of your child, family member or friend?: No Do you have trouble with day-to-day activities such as bathing, preparing meals, shopping, managing finances, etc.?: No Are you currently unemployed and looking for a job?: No Are you interested in more education?: No Please select the resources that you would like help with: None Currently or been in a relationship where the following occur: No concerns reported THRIVE Score: 0 AUDIT C Alcohol Use Questionnaire (AUDIT-C) 1. How often do you have a drink containing alcohol?: Never 3. How often do you have six or more drinks on one occasion?: Never Total Score: 0 Score Reviewed/Action Taken: Yes STEPHANIE-7 AMB Questionnaire STEPHANIE-7 Date SETPHANIE - 7 assessed: 03/03/24 Feeling nervous, anxious, or on edge: 0 = Not at all Not being able to stop or control worryin = Not at all Worrying too much about different things: 0 = Not at all Trouble relaxin = Not at all Being so restless that it is hard to sit still: 0 = Not at all Becoming easily annoyed or irritable: 0 = Not at all Feeling afraid as if something awful might happen: 0 = Not at all Total STEPHANIE-7 score (0-4 normal; 5-9 mild; 10-14 moderate; 15-21 severe): 0 Source: Developed by Drs. Cuco Richards, Itzel Ordaz, Eliud Ladd and colleagues, with an educational lino from [employer]. Review of Systems Const Denies chills, Reports fatigue, Denies fever(s) and Denies headache(s) ENT Denies dysphagia, Denies dizziness, Denies otalgia, Denies headache(s), Denies neck pain, Denies odynophagia and Denies sore throat Card Denies chest pain, Denies rapid heart rate, Denies irregular heart rhythm, Denies palpitations and Reports dyspnea (since this morning) Resp Denies chest congestion, Denies cough, Reports dyspnea (since this morning) and Denies wheezing GI Denies abdominal pain, Denies constipation, Denies dysphagia, Denies heartburn, Denies diarrhea, Denies nausea, Denies odynophagia and Denies vomiting Denies hematuria, Denies urinary frequency, Denies dysuria and Denies urinary urgency Musc Reports back pain (on and off, over the lower back), Reports arthralgias (over the left hip - chronic) and Denies neck pain Skin/Breast Denies rash Neuro Denies dizziness, Denies headache(s) and Denies paresthesias Psych Denies anxiety and Denies depression Endo Reports fatigue and Denies palpitations Teddy/Lymph Denies easy bruising Aller/Immun Denies wheezing Physical exam (Primary Care) Vital Signs: Last Vital Signs Pulse 68 03/03/24 10:12 BP 112/80 03/03/24 10:12 Pulse Ox 98 03/03/24 10:12 Oxygen Delivery Method Room Air 03/03/24 10:12 BMI result Body Mass Index 38.5 Tobacco/Smoking Status: Tobacco use Status Tobacco use date assessed 03/03/24 03/03/24 10:22 Patient Tobacco Use Status Former Tobacco user 03/03/24 10:22 Tobacco use type Cigarette 03/03/24 10:22 e-Cigarette/Vaping Use Never Used 03/03/24 10:22 PHQ-9: PHQ-9 Score PHQ-9: Total score 7 03/03/24 10:22 Depression Screening Interpretation: Positive Depression Screening Follow-up: Existing condition and In treatment Thrive Assessment: Date of Thrive Assessment Date Thrive assessed 03/03/24 03/03/24 10:22 Currently or been in a relationship where the following occur: No concerns reported Const General: no acute distress and alert HENMT Ears: TM's normal bilaterally and EAC's normal Throat: Yes posterior oropharynx normal and Yes tonsils normal (no TP congestion) Neck Neck: Yes no lymphadenopathy and Yes supple Thyroid: Thyroid normal Resp Auscultation: clear to auscultation bilaterally, no rales and no wheezes Cardio Rate: regular rate Rhythm: regular rhythm Heart sounds: no murmurs GI Palpation (GI): Soft to palpation and nontender Auscultation: normal bowel sounds General: Yes no CVA tenderness Back/Spine/Pelvis Back: no CVA tenderness Thoracic/Lumbar Spine: lumbar spinal tenderness (mild) Skin Rashes: no rashes Extrem General: Yes no clubbing, cyanosis or edema Left lower extremity: hip/thigh Details: tenderness Location: of the hip and abnormal ROM Details: pain with active ROM Assessment and Plan Assessment & Plan (1) Benign essential hypertension: Code(s): I10 - Essential (primary) hypertension Plan: Reinforced low-sodium diet - goal is systolic BP of 120 mm or less Continue Labetalol 100 mg BID She also used to take Amlodipine 5 mg QD and Spironolactone 50 mg BID but apparently stopped taking these sometime in the past couple of years or so - patient herself does not remember exactly when or why she is no longer on these meds (2) Asthma-COPD overlap syndrome: Code(s): J44.89 - Other specified chronic obstructive pulmonary disease Plan: Stable lately Continue Symbicort 160-4.5 mcg 2 inhalations BID and Albuterol HFA 2 inhalations Q 6 hours PRN (3) Dyspnea: Code(s): R06.00 - Dyspnea, unspecified Qualifiers: Dyspnea type: unspecified Qualified Code(s): R06.00 - Dyspnea, unspecified Plan: Patient states that she was exposed to someone yesterday who tested positive for COVID and she woke up earlier this morning starting to feel SOB She has not had any sore throat, fever or cough so far Will go ahead and send her for COVID testing EFRAIN (4) Elevated LFTs: Code(s): R79.89 - Other specified abnormal findings of blood chemistry Plan: Her LFTs (especially her ALT) were previously elevated back in May 2023 but have returned back to normal since Were likely due to hepatosteatosis, as confirmed on her abdominal US done back in June 2023 Will continue to monitor her LFTs regularly (5) Bilateral primary osteoarthritis of hip: Code(s): M16.0 - Bilateral primary osteoarthritis of hip Plan: S/P right hip arthroplasty last year in July 2022 - states that her right hip has been doing well since her surgery She also underwent total left hip arthroplastly with [facility] a few months ago on 10/24/2023 - states that her surgery and recovery went well and she now has hardly any significant issues with her hips Follow up with orthopedics as scheduled (6) GERD (gastroesophageal reflux disease): Code(s): K21.9 - Gastro-esophageal reflux disease without esophagitis Qualifiers: Esophagitis presence: without esophagitis Qualified Code(s): K21.9 - Gastro-esophageal reflux disease without esophagitis Plan: Dietary restrictions reinforced Continue Dexlansoprazole 60 mg QD (7) Anemia: Code(s): D64.9 - Anemia, unspecified Qualifiers: Anemia type: unspecified type Qualified Code(s): D64.9 - Anemia, unspecified Plan: Continue IV Iron infusions PRN Follow up with hematology as scheduled Will recheck CBC and iron studies in 4 months for follow up (8) Migraine: Code(s): G43.909 - Migraine, unspecified, not intractable, without status migrainosus Qualifiers: Migraine type: unspecified Status migrainosus presence: without status migrainosus Intractability: not intractable Qualified Code(s): G43.909 - Migraine, unspecified, not intractable, without status migrainosus Plan: Continue Acetaminophen 325 mg every 4 to 6 hours as needed Reinforced avoidance of migraine triggers Will need to consider prophylactic Tx again if her headaches persist or get worse (9) Fibromyalgia: Code(s): M79.7 - Fibromyalgia Plan: Encouraged again regular exercise and physical activity to help manage her fibromyalgia symptoms Continue Gabapentin 400 mg TID (10) Insomnia: Code(s): G47.00 - Insomnia, unspecified Qualifiers: Insomnia type: unspecified Qualified Code(s): G47.00 - Insomnia, unspecified Plan: Sleep hygiene reinforced Continue OTC Unisom 25 mg Q HS PRN (11) Anxiety: Code(s): F41.9 - Anxiety disorder, unspecified Plan: Is on Bupropion and Sertraline; continue Hydroxyzine 25 mg 1 to 2 tablets TID PRN (12) Depression: Code(s): F32.A - Depression, unspecified Qualifiers: Depression Type: major depressive disorder Major depression recurrence: recurrent Active/Remission status: currently active Major depression episode severity: unspecified Qualified Code(s): F33.9 - Major depressive disorder, recurrent, unspecified Plan: Continue Sertraline 100 mg QD and Bupropion XL 300 mg Q AM Follow up with psychiatry as scheduled (13) Obesity (BMI 30-39.9): Code(s): E66.9 - Obesity, unspecified Plan: Reinforced diet/exercise as tolerated/lose weight Plan Follow up in 4 months Orders: Orders SARS-CoV2/FLU/RSV Today J98.8 - Other specified respiratory disorders Complete Blood Count Auto Diff 4 Months D64.9 - Anemia, unspecified Comprehensive [place]. Panel Fast 4 Months E78.00 - Pure hypercholesterolemia, unspecified Vitamin D 25-OH Total 4 Months E55.9 - Vitamin D deficiency, unspecified Lipid Panel 4 Months E78.00 - Pure hypercholesterolemia, unspecified TSH reflex Free T4 4 Months E78.00 - Pure hypercholesterolemia, unspecified UA CC w/rflx Micro + Cult 4 Months R30.0 - Dysuria Erythrocyte Sedimentation Rate 4 Months M79.7 - Fibromyalgia Coding Level of Care Code Est Pt Level 4 (82096) Diagnoses Benign essential hypertension I10 Asthma-COPD overlap syndrome J44.89 Dyspnea, unspecified type R06.00 Dyspnea type: unspecified Elevated LFTs R79.89 Bilateral primary osteoarthritis of hip M16.0 Gastroesophageal reflux disease without esophagitis K21.9 Esophagitis presence: without esophagitis Anemia, unspecified type D64.9 Anemia type: unspecified type Migraine without status migrainosus, not intractable, unspecified migraine type G43.909 Migraine type: unspecified Status migrainosus presence: without status migrainosus Intractability: not intractable Fibromyalgia M79.7 Insomnia, unspecified type G47.00 Insomnia type: unspecified Anxiety F41.9 Episode of recurrent major depressive disorder, unspecified depression episode severity F33.9 Depression Type: major depressive disorder Major depression recurrence: recurrent Active/Remission status: currently active Major depression episode severity: unspecified Obesity (BMI 30-39.9) E66.9
[2024-03-03 10:12] VITALS: BP 112/80; PULSE 68; O2SAT 98; BMI 38.5
== END 2024-03-03 10:42 | disposition home or self-care (01) ==
PROVIDERS: PCP Internal Medicine; Visit Provider Internal Medicine
DX: I10 Essential (primary) hypertension (principal); J44.89 Other specified chronic obstructive pulmonary disease; R06.00 Dyspnea, unspecified; R79.89 Other specified abnormal findings of blood chemistry; M16.0 Bilateral primary osteoarthritis of hip; K21.9 Gastro-esophageal reflux disease without esophagitis; D64.9 Anemia, unspecified; G43.909 Migraine, unspecified, not intractable, without status migrainosus; M79.7 Fibromyalgia; G47.00 Insomnia, unspecified; F41.9 Anxiety disorder, unspecified; F33.9 Major depressive disorder, recurrent, unspecified; E66.9 Obesity, unspecified

== ENCOUNTER → 2024-03-03 10:05 | Outpatient (BNVA) | payer OTHER, SELFPAY | PROVIDERS: PCP Internal Medicine; Visit Provider Internal Medicine | DX: I10 Essential (primary) hypertension (principal); J44.89 Other specified chronic obstructive pulmonary disease; R06.00 Dyspnea, unspecified; R79.89 Other specified abnormal findings of blood chemistry; M16.0 Bilateral primary osteoarthritis of hip; K21.9 Gastro-esophageal reflux disease without esophagitis; D64.9 Anemia, unspecified; G43.909 Migraine, unspecified, not intractable, without status migrainosus; M79.7 Fibromyalgia; G47.00 Insomnia, unspecified; F41.9 Anxiety disorder, unspecified; F33.9 Major depressive disorder, recurrent, unspecified; E66.9 Obesity, unspecified; Z79.899 Other long term (current) drug therapy | CPT/HCPCS: 96127; 99212 ==

== ENCOUNTER 2024-03-09 11:37 | Outpatient (REF) | payer OTHER, SELFPAY ==
[2024-03-09 12:48] LABS: Influenza A PCR NEGATIVE (Negative); Influenza B PCR NEGATIVE (Negative); Resp Syncy Virus RNA Qual PCR NEGATIVE (Negative); SARS COV2 PCR INHOUSE NEGATIVE (Negative)
== END 2024-03-09 11:38 | disposition home or self-care (01) ==
LOC: HO.LAB 11:37
PROVIDERS: PCP Internal Medicine; Visit Provider Internal Medicine
DX: J98.8 Other specified respiratory disorders (principal)
CPT/HCPCS: 0241U

== ENCOUNTER 2024-03-17 13:46 | Outpatient (AMB) | payer OTHER, SELFPAY ==
--- NOTE | 2024-03-17 13:56 | MHC.OFFVIS ---
Vital Signs 03/17/24 13:57 Height 5 ft 1 in Weight 206 lb 2 oz BMI 38.9 BP 152/98 H Blood Pressure Location Rt brachial Position Sitting Pulse 72 Pulse Source Pulse Oximeter Pulse Oximetry (%) 100 Oxygen Delivery Method Room Air Intake Visit Reasons: asthma exacerbation Allergies amoxicillin [AMOXICILLIN] Allergy (Intermediate, Verified 03/17/24 14:00) NAUSEA & VOMITING, stomach pain, vomiting, stomach upset topiramate [From TOPAMAX] Allergy (Intermediate, Verified 03/17/24 14:00) TREMORS, nausea and vomiting latex [LATEX] Allergy (Mild, Verified 03/17/24 14:00) RASH medroxyprogesterone [From PROVERA] Allergy (Mild, Verified 03/17/24 14:00) RASH lactose Allergy (Verified 03/17/24 14:00) bloating , diarrhea HPI HPI asthma exacerbation: Details: Gabriella is a very pleasant 33 year-old female, never tobacco smoker, with underlying asthma/COPD, rheumatoid arthritis and fibromyalgia. At baseline she reports good control of respiratory symptoms on Symbicort, albuterol MDI/neb. Today she presents for an acute visit. She reports worsening respiratory symptoms over the last few days with increased dyspnea, wheezing, chest tightness and persistent dry cough. She was COVID + 2 weeks ago. She has been using albuterol MDI/neb multiple times per day with minimal relief. [facility]LY [facility] Medical History (Updated 03/03/24 @ 11:01 by Jarrod Sherman MD) Obesity (BMI 30-39.9) Anxiety Encounter for preoperative pulmonary examination Benign essential hypertension Gallstones Thoracic back pain Depression Tension headache Myofascial pain Sacroiliac joint pain Bilateral primary osteoarthritis of hip Post depression BMI 39.0-39.9,adult Trigger finger of left thumb Trigger finger of right thumb Insomnia Morbid obesity with BMI of 40.0-44.9, adult Smoker Annual physical exam Carpal tunnel syndrome, bilateral Personal history of gestational diabetes Supervision of other high risk , antepartum Supervision of other normal PCOS (polycystic ovarian syndrome) control counseling Migraines Vulvar cyst Anxiety Hyperlipemia Fibromyalgia Rheumatoid arthritis Surgical History (Updated 03/03/24 @ 10:56 by Jarrod Sherman MD) S/P laparoscopic cholecystectomy (03/06/23) H/O tubal ligation History of hip replacement, total History of esophagogastroduodenoscopy (EGD) History of removal of cyst History of tonsillectomy and adenoidectomy Family History Father Medical history unknown Mother Diabetes Hypertension Maternal Aunt Breast cancer Ovarian cancer Mental health disorder Maternal Grandmother Diabetes Hypertension Social History Household Members: Significant Other and Children Housing: House Alcohol intake: current Alcohol intake frequency: holidays/special occasions only Patient Tobacco Use Status: Former Tobacco user Tobacco use type: Cigarette e-Cigarette/Vaping Use: Never Used Second Hand Smoke Exposure: No Substance Use Type: Marijuana service: No Current occupational status: disabled Sexual orientation: Straight/Heterosexual Gender identity: Female Cognitive needs: No Hearing needs: No Vision needs: Yes Female Reproductive History Menstrual Age of Menarche: 8 Review of Systems Const Denies chills, Denies excessive sweating, Denies fever(s), Denies headache(s) and Denies night sweats Eyes Denies dry eyes, Denies irritation and Denies itchy eyes ENT Reports Normal hearing present, Denies headache(s), Denies nasal congestion, Denies nasal discharge, Denies post nasal drip and Denies sore throat Card Denies chest pain, Denies chest pain at rest, Denies chest pain with activity, Denies claudication, Denies leg edema, Denies orthopnea and Denies paroxysmal nocturnal dyspnea Resp Denies chest congestion, Denies excessive phlegm production, Denies pain on inspiration, Denies pain with cough and Denies stridor Musc Denies myalgias Neuro Reports Normal hearing present and Denies headache(s) Endo Denies excessive sweating Teddy/Lymph Denies lymphadenopathy Aller/Immun Denies itchy eyes and Denies seasonal rhinorrhea Physical Exam Vital Signs: Last Vital Signs Pulse 72 03/17/24 13:57 BP 152/98 H 03/17/24 13:57 Pulse Ox 100 03/17/24 13:57 Oxygen Delivery Method Room Air 03/17/24 13:57 BMI result Body Mass Index 38.9 Const General: cooperative, no acute distress, well developed and alert Nutritional Appearance: obese Orientation/consciousness: patient oriented x3 Limitations: no limitations HEENT Head: Yes normal to inspection, Yes normocephalic and Yes atraumatic Ears: hearing grossly normal bilaterally and external ears normal Eyes General: appearance normal, both eyes and all related structures Eyelids: Yes eyelids normal Sclerae: sclerae normal EOM: EOMs intact bilaterally Neck Neck: Yes normal visual inspection and Yes no lymphadenopathy Lymphatic: no lymphadenopathy noted Chest Chest palpation & inspection: normal inspection of the chest Resp Effort & Inspection: normal respiratory effort, able to speak in complete sentences, no audible wheezes, Actively coughing (post exhalation cough) Quality: actively coughing, no stridor, not tachypneic and no tripod positioning Auscultation: diminished lung sounds Cardio Jugular venous distension: no JVD Rate: regular rate Rhythm: regular rhythm Skin Other: warm, dry General skin exam: no rashes or lesions noted Neuro General: patient oriented x3 Cranial nerves: Yes Normal hearing present Cognition (Neuro): normal cognition Gait exam (Neuro): Normal gait present Extrem General: Yes normal to inspection, Yes capillary refill normal, Yes no clubbing, cyanosis or edema and Yes no pedal edema Psych Appearance: grossly normal and well kempt Speech and movement: Normal speech and movement present and Clear speech present Affect: normal affect Attitude: cooperative Thought process: Normal thought process present Thought content: Normal thought content present Insight: Good insight present (Psych) Judgement: Good judgement present (Psych) Assessment & Plan Assessment & Plan (1) Asthma-COPD overlap syndrome: Code(s): J44.89 - Other specified chronic obstructive pulmonary disease Category: Medical Plan At baseline, Gabriella reports good control of respiratory symptoms with Symbicort use at baseline, advised to continue. Today she presents with an acute exacerbation, will send prednisone. She is aware if symptoms do not improve to call office and if worsen seek emergent care. . All questions answered and patient is in agreement of plan. Will follow up at regularly scheduled appt or sooner if needed. Medications: New prednisone 40 mg (2 x 20 mg) PO DAILY 10 tabs 0RF albuterol sulfate 2.5 mg (3 mL) inhalation Q6H PRN 180 mL 3RF Shortness Of Breath Or Wheezing Refilled budesonide-formoterol 160-4.5 mcg/actuation (Symbicort) 2 puffs inhalation Q12H 10.2 grams 3RF Coding Level of Care Code Est Pt Level 3 (03381) Diagnoses Asthma-COPD overlap syndrome J44.89
[2024-03-17 13:57] VITALS: BP 152/98; PULSE 72; O2SAT 100; BMI 38.9
== END 2024-03-17 14:30 | disposition home or self-care (01) ==
PROVIDERS: PCP Internal Medicine; Visit Provider Nurse Practitioner Family
DX: J44.89 Other specified chronic obstructive pulmonary disease (principal)
CPT/HCPCS: 99213

== ENCOUNTER → 2024-03-17 13:46 | Outpatient (BNVA) | payer OTHER, SELFPAY | PROVIDERS: PCP Internal Medicine; Visit Provider Nurse Practitioner Family | DX: J44.89 Other specified chronic obstructive pulmonary disease (principal); Z86.16 Personal history of COVID-19 | CPT/HCPCS: 99212 ==

== ENCOUNTER 2024-03-17 15:58 | Emergency (ER) | payer OTHER, SELFPAY ==
[2024-03-17 16:19] VITALS: BP 178/111; PULSE 74; RESP 20; TEMP 36.6; O2SAT 100; BMI 38.1
--- NOTE | 2024-03-17 20:16 | PC.NURSE ---
not present in ED WR.
== END 2024-03-17 20:16 | disposition left against medical advice (07) ==
PROVIDERS: Emergency Provider Emergency Medicine; PCP Internal Medicine
DX: R07.89 Other chest pain (principal); R06.02 Shortness of breath; R05.9 Cough, unspecified
CPT/HCPCS: 99281

== ENCOUNTER 2024-03-20 14:27 | Outpatient (AMB) | payer OTHER, SELFPAY ==
--- NOTE | 2024-03-20 14:32 | MHC.OFFVIS ---
Intake Visit Reasons: ESWL- follow up/US(Xray) Intake Note: Patient is Present for Follow Up ESWL(pt did not do Xray/Ultrasound) Urology Medication: Vitamin B6, Tamsulosin Antibiotic Allergies: Amoxicillin Blood Thinners: None Patient states she has pain on her left flank side informed pt that her XRay order is still in queue in Hospital informed that Xray does not need an appt she can be a walk in Allergies amoxicillin [AMOXICILLIN] Allergy (Intermediate, Verified 03/17/24 16:26) NAUSEA & VOMITING, stomach pain, vomiting, stomach upset topiramate [From TOPAMAX] Allergy (Intermediate, Verified 03/17/24 16:26) TREMORS, nausea and vomiting latex [LATEX] Allergy (Mild, Verified 03/17/24 16:26) RASH medroxyprogesterone [From PROVERA] Allergy (Mild, Verified 03/17/24 16:26) RASH lactose Allergy (Verified 03/17/24 16:26) bloating , diarrhea HPI Comments Details: Gabriella is a pleasant female. She is a patient Dr. Sherman. She is seen for the following urologic conditions - nephrolithiasis Completed ESWL with left stent removal Does have some back pain On exam this is muscular Plan for six-month follow-up stone imaging Nephrolithiasis Initial presentation emergency room 10/07 Aunt has stones Imaging - 10/07 CT multiple 4mm stones bilateral - 01/06 ultrasound minimal stone - 07/10 renal ultrasound bilateral 3 mm stones Intervention - 10/07 right ureteroscopy with laser lithotripsy - 02/07 L ESWL with stent removal Stone composition - 10/07 calcium oxalate dihydrate with brushing Therapeutic plan - surveillance imaging - encourage fluids [facility] Medical History (Updated 03/03/24 @ 11:01 by Jarrod Sherman MD) Obesity (BMI 30-39.9) Anxiety Encounter for preoperative pulmonary examination Benign essential hypertension Gallstones Thoracic back pain Depression Tension headache Myofascial pain Sacroiliac joint pain Bilateral primary osteoarthritis of hip Post depression BMI 39.0-39.9,adult Trigger finger of left thumb Trigger finger of right thumb Insomnia Morbid obesity with BMI of 40.0-44.9, adult Smoker Annual physical exam Carpal tunnel syndrome, bilateral Personal history of gestational diabetes Supervision of other high risk , antepartum Supervision of other normal PCOS (polycystic ovarian syndrome) control counseling Migraines Vulvar cyst Anxiety Hyperlipemia Fibromyalgia Rheumatoid arthritis Surgical History (Updated 03/03/24 @ 10:56 by Jarrod Sherman MD) S/P laparoscopic cholecystectomy (03/06/23) H/O tubal ligation History of hip replacement, total History of esophagogastroduodenoscopy (EGD) History of removal of cyst History of tonsillectomy and adenoidectomy Family History Father Medical history unknown Mother Diabetes Hypertension Maternal Aunt Breast cancer Ovarian cancer Mental health disorder Maternal Grandmother Diabetes Hypertension Social History Household Members: Significant Other and Children Housing: House Alcohol intake: current Alcohol intake frequency: holidays/special occasions only Patient Tobacco Use Status: Former Tobacco user Tobacco use type: Cigarette e-Cigarette/Vaping Use: Never Used Second Hand Smoke Exposure: No Substance Use Type: Marijuana service: No Current occupational status: disabled Sexual orientation: Straight/Heterosexual Gender identity: Female Cognitive needs: No Hearing needs: No Vision needs: Yes Female Reproductive History Menstrual Age of Menarche: 8 Review of Systems Const Denies chills and Denies fever(s) Card Reports no additional complaints and Denies syncope Resp Denies cough GI Denies abdominal pain and Denies heartburn Reports as per HPI and Denies change in libido Neuro Denies syncope Psych Denies change in libido Endo Denies change in libido Physical Exam Const General: cooperative, healthy appearing, comfortable and no acute distress Orientation/consciousness: patient oriented x3 HEENT Face and sinus: Yes normal facial exam Mouth: moist mucous membranes Neck Neck: Yes normal visual inspection, Yes full ROM and Yes trachea midline Chest Chest palpation & inspection: normal inspection of the chest Resp Effort & Inspection: normal respiratory effort, able to speak in complete sentences and no respiratory distress GI Inspection: Yes normal to inspection Back/Spine/Pelvis Cervical Spine: normal cervical lordosis Thoracic/Lumbar Spine: thoracic and lumbar spine normal to inspection Skin General skin exam: no rashes or lesions noted Neuro General: patient oriented x3, gait normal, tone normal and moves all extremities Extrem General: Yes normal to inspection and Yes capillary refill normal Assessment & Plan Assessment & Plan (1) Calculus of kidney: Code(s): N20.0 - Calculus of kidney Category: Medical Plan Six-month follow-up KUB Orders: Orders XR KUB 03/16/24 N13.9 - Obstructive and reflux uropathy, unspecified Patient Instructions: Imaging studies, laboratory and physical exam results were discussed and reviewed in detail. No major barriers to patient understanding were identified. An opportunity to ask questions regarding the treatment plan was provided. All questions were answered. The patient expressed understanding and agreement with the above treatment plan. The patient is aware they should contact our office by phone for worsening of their current condition or the appearance of new urologic symptoms. Compliance is encouraged with any medications and followup testing that is ordered. It is a privilege to participate in the urologic care of your patient. If you have any questions or concerns regarding treatment for the above conditions, or other urologic issues, please do not hesitate to contact me. The office telephone contact is [phone]. This note is constructed using voice recognition software. While every effort has been made to ensure accuracy lab nurse errors may have been included. Yours sincerely, Dr Jayson Rausch MD, [facility] - Urology Providers of Expert, Compassionate Care for the Genitourinary System Coding Level of Care Code Est Pt Level 3 (97405) Diagnoses Calculus of kidney N20.0
== END 2024-03-20 14:48 | disposition home or self-care (01) ==
PROVIDERS: PCP Internal Medicine; Visit Provider Urology
DX: N20.0 Calculus of kidney (principal)
CPT/HCPCS: 99024

== ENCOUNTER → 2024-03-20 14:27 | Outpatient (BNVA) | payer OTHER, SELFPAY | PROVIDERS: PCP Internal Medicine; Visit Provider Urology | DX: N20.0 Calculus of kidney (principal); N13.9 Obstructive and reflux uropathy, unspecified; Z79.899 Other long term (current) drug therapy | CPT/HCPCS: 99212 ==

== ENCOUNTER 2024-03-24 11:02 | Emergency (ER) | payer OTHER, SELFPAY ==
--- NOTE | ~2024-03-24 | CT_ITS ---
EXAMINATION: CT HEAD WITHOUT CONTRAST CLINICAL INFORMATION: Hypertension and headache. COMPARISON: CT head 05/14/2022. TECHNIQUE: Contiguous axial imaging was performed from the skull base to vertex without intravenous administration of contrast. This CT examination was performed using dose optimization techniques as appropriate, variously including the following: *Automated exposure control *Adjustment of mA and/or kV according to patient size (this includes techniques or standardized protocols for targeted exams where dose is matched to indication/reason for exam; i.e. extremities or head) *Use of iterative reconstruction technique DLP: 609 mGy-cm FINDINGS: There is no evidence of acute intracranial hemorrhage or edematous territorial infarction. There is no abnormal attenuation within the brain parenchyma. Alejandro-white matter differentiation is preserved. The ventricles are normal in size and configuration. No evidence for obstructive hydrocephalus. No abnormal mass effect or midline shift. No extra-axial fluid collections. No acute soft tissue or osseous abnormalities. The mastoid air cells and paranasal sinuses are clear. CT/CT head/brain wo IV con IMPRESSION: No evidence of acute intracranial hemorrhage or edematous territorial infarction. Electronically signed by: Billie Almeida MD 03/24/2024 02:09 PM EDT
[2024-03-24 11:21] VITALS: BP 213/100; PULSE 71; RESP 18; TEMP 36.6; O2SAT 100; BMI 39.6
--- NOTE | 2024-03-24 11:22 | ECG_ITS ---
Test Reason : HYPERTENSION HEADACHE Blood Pressure : / mmHG Vent. Rate : 067 BPM Atrial Rate : 067 BPM P-R Int : 132 ms QRS Dur : 086 ms QT Int : 382 ms P-R-T Axes : 039 045 012 degrees QTc Int : 403 ms Normal sinus rhythm Normal ECG When compared with ECG of 30-DEC-2023 16:48, No significant change was found Referred By: Geoffrey Jin Electronically Signed By:LEANA ÁLVAREZ MD
--- NOTE | 2024-03-24 11:25 | ED_ITS ---
HPI - General Adult General Chief complaint: General Medical Stated complaint: High BP sent by Time Seen by Provider: 03/24/24 11:29 Source: patient Mode of arrival: ambulatory Limitations: no limitations History of Present Illness ED Provider: Garfield KHALIL narrative: Patient is a 33-year-old female with history HTN, fibromyalgia, rheumatoid arthritis, migraines, obesity, PCOS presenting to the emergency department with complaint of elevated blood pressure readings at home. States for the past 4 days she has had intermittent headaches as well as feeling lightheaded with blurred vision. States she has been taking her labetalol as prescribed. Woke with a headache this morning and took her labetalol at 4:00 a.m.. She called PCP and was going to take her a.m. dose of labetalol, PCP advised her to hold that dose and present to the emergency department for further evaluation. She denies chest pain, palpitations, shortness of breath. Denies worst headache of life and denies sudden onset. Reports nausea but denies vomiting or abdominal pain. MD complaint: htn, headache Onset (ago): day(s) Location: head Radiation: non-radiation Severity: severe Quality: aching Pain Consistency: intermittent Relieving factors: none Associated symptoms: other Treatments prior to arrival: other Related Data Home Medications ?Medication ?Instructions ?Recorded ?Confirmed sertraline 100 mg tablet 100 mg PO DAILY 08/22/20 03/03/24 acetaminophen 325 mg tablet 650 mg PO Q6H PRN Pain 12/29/23 03/03/24 (Tylenol) albuterol sulfate 90 mcg/actuation 2 inh inhalation Q6H PRN shortness 12/29/23 03/03/24 breath activated powder inhaler of breath or wheezing bupropion HCl 300 mg 24 hr tablet, 300 mg PO DAILY 12/29/23 03/03/24 extended release dexlansoprazole 60 mg 60 mg PO DAILY@0630 12/29/23 03/03/24 capsule,biphase delayed release (Dexilant) hydroxyzine HCl 25 mg tablet 25 mg PO DAILY anxiety 12/29/23 03/03/24 linaclotide 290 mcg capsule 290 mcg PO DAILY 12/29/23 03/03/24 (Linzess) [id number]-[id number] 1 cap PO TIDWM 12/29/23 03/03/24 36,000-114,000-180,000 unit capsule,delay rel (Creon) lorazepam 1 mg tablet 1 mg PO DAILY PRN Anxiety 12/29/23 03/03/24 metoclopramide HCl 5 mg tablet 5 mg PO BID 12/29/23 03/03/24 (Reglan) Previous Rx's ?Medication ?Instructions ?Recorded lancets 28 gauge (FreeStyle #100 ea 06/27/20 Lancets) BEDSIDE COMMODE #1 ea 05/14/22 FRONT-WHEELED WALKER #1 ea 05/14/22 TUB SEAT with BACK #1 ea 05/14/22 gabapentin 400 mg capsule 400 mg PO TID 30 days #90 caps 10/17/22 nebulizers (Compact Compressor #1 ea 02/28/23 Nebulizer) pyridoxine (vitamin B6) 100 mg 100 mg PO DAILY 90 days #90 tabs 07/09/23 tablet labetalol 100 mg tablet 100 mg PO BID 90 days #180 tabs 09/16/23 phenazopyridine 100 mg tablet 100 mg PO Q8H 14 days #42 tabs 01/09/24 naproxen 500 mg tablet 500 mg PO BID PRN pain 7 days #14 02/05/24 tabs tamsulosin 0.4 mg capsule 0.4 mg PO BEDTIME 14 days #14 caps 02/05/24 nirmatrelvir 300 mg (150 mg See Rx Instructions PO .COMPLEX 03/03/24 x2)-ritonavir 100 mg tablet,dose #30 ea pack (Paxlovid) ibuprofen 800 mg tablet (IBU) 800 mg PO Q8H PRN pain/headaches 03/04/24 30 days #90 tabs albuterol sulfate 2.5 mg/3 mL 2.5 mg (3 mL) inhalation Q6H PRN 03/17/24 (0.083 %) solution for nebulization Shortness Of Breath Or Wheezing #180 mL budesonide-formoterol HFA 160 2 puff inhalation Q12H #10.2 grams 03/17/24 mcg-4.5 mcg/actuation aerosol inhaler (Symbicort) prednisone 20 mg tablet 40 mg (2 x 20 mg) PO DAILY #10 tabs 03/17/24 Allergies Allergy/AdvReac Type Severity Reaction Status Date / Time amoxicillin [AMOXICILLIN] Allergy Intermediate NAUSEA & Verified 03/24/24 11:25 VOMITING, stomach pain, vomiting, stomach upset topiramate [From TOPAMAX] Allergy Intermediate TREMORS, Verified 03/24/24 11:25 nausea and vomiting latex [LATEX] Allergy Mild RASH Verified 03/24/24 11:25 medroxyprogesterone Allergy Mild RASH Verified 03/24/24 11:25 [From PROVERA] lactose Allergy bloating , Verified 03/24/24 11:25 diarrhea Review of Systems 2 Review of Systems: As per HPI Yes all other systems are reviewed and are negative Constitutional: Constitutional: Reports as per HPI [facility] Past Medical History Medical History (Updated 03/24/24 @ 15:26 by Courtney Merrill NP) Obesity (BMI 30-39.9) Anxiety Encounter for preoperative pulmonary examination Benign essential hypertension Gallstones Thoracic back pain Depression Tension headache Myofascial pain Sacroiliac joint pain Bilateral primary osteoarthritis of hip Post depression BMI 39.0-39.9,adult Trigger finger of left thumb Trigger finger of right thumb Insomnia Morbid obesity with BMI of 40.0-44.9, adult Smoker Annual physical exam Carpal tunnel syndrome, bilateral Personal history of gestational diabetes Supervision of other high risk , antepartum Supervision of other normal PCOS (polycystic ovarian syndrome) control counseling Migraines Vulvar cyst Anxiety Hyperlipemia Fibromyalgia Rheumatoid arthritis Surgical History (Updated 03/03/24 @ 10:56 by Jarrod Sherman MD) S/P laparoscopic cholecystectomy (03/06/23) H/O tubal ligation History of hip replacement, total History of esophagogastroduodenoscopy (EGD) History of removal of cyst History of tonsillectomy and adenoidectomy Family History Family History Father Medical history unknown Mother Diabetes Hypertension Maternal Aunt Breast cancer Ovarian cancer Mental health disorder Maternal Grandmother Diabetes Hypertension Social History Social History Household Members: Significant Other and Children Housing: House Alcohol intake: current Alcohol intake frequency: holidays/special occasions only Patient Tobacco Use Status: Former Tobacco user Tobacco use type: Cigarette Smoked in Last 30 Days: No e-Cigarette/Vaping Use: Never Used Second Hand Smoke Exposure: No Use of substances other than those prescribed or required for medical reasons: Yes Substance Use Type: Marijuana Substance Use Frequency: Daily Advance Directives: No Patient : No service: No Current occupational status: disabled Sexual orientation: Straight/Heterosexual Gender identity: Female Cognitive needs: No Hearing needs: No Vision needs: Yes Physical Exam ED Vital Signs: Vital Signs - 24 hr 03/24/24 11:21 03/24/24 12:29 03/24/24 15:43 Temperature 97.8 F 98.5 F 97.9 F Pulse Rate 71 60 73 Respiratory Rate 18 18 18 Blood Pressure 213/100 H 144/82 H 143/76 H Pulse Oximetry 100 100 99 Oxygen Delivery Method Room Air Room Air Room Air BMI result Body Mass Index 39.6 Vital signs have been reviewed and appear to be correct. Blood pressure hypertensive initially, improved without medication. Heart rate normal. Respiratory rate normal. Temperature normal. Oxygen saturation normal. Const General: cooperative and no acute distress Nutritional Appearance: obese Orientation/consciousness: oriented to person, oriented to place, oriented to time and patient oriented x3 Limitations: no limitations HENMT Head: Yes normocephalic and Yes atraumatic Ears: external ears normal General nose exam: Normal external nose present Face and sinus: Yes face symmetric Mouth: oropharynx normal and moist mucous membranes Throat: Yes uvula midline Eyes Pupils: Equal, round and reactive pupils present Neck Neck: Yes normal visual inspection, Yes no meningeal signs and Yes supple Resp Effort & Inspection: normal respiratory effort and able to speak in complete sentences Auscultation: clear to auscultation bilaterally Cardio Rate: regular rate Rhythm: regular rhythm Heart sounds: S1 normal heart sound present and S2 normal heart sound present GI Palpation (GI): Soft to palpation and nontender Auscultation: normoactive bowel sounds General: Yes no CVA tenderness Back/Spine/Pelvis Back: no CVA tenderness Skin General skin exam: elasticity normal and turgor normal Neuro General: oriented to person, oriented to place, oriented to time, patient oriented x3, gait normal, tone normal, moves all extremities, Normal light touch and pain sensation, no meningeal signs, no focal motor deficits, CN's II-XI intact bilaterally and deep tendon reflexes 2+ bilaterally Cranial nerves: Yes Equal, round and reactive pupils present Cognition (Neuro): normal cognition Motor exam (neuro): 5/5 motor strength present throughout, Pronator motor function not present, Normal motor muscle tone present throughout and Motor abnormalities not present Extrem General: Yes full ROM, Yes no pedal edema and Yes no calf tenderness Psych Mental Status: mental status grossly normal Affect: normal affect Thought process: Normal thought process present NIH Stroke Scale Internal: Initial- Upon Arrival Level of Consciousness: Alert Level of Consciousness Questions: Answers both questions correctly Level of Consciousness Commands: Performs both tasks correctly Best Gaze: Normal Visual: No visual loss Facial Palsy: Normal Motor Arm (Right): No drift Motor Arm (Left): No drift Motor Leg (Right): No drift Motor Leg (Left): No drift Limb Ataxia: Absent Sensory: Normal Best Language: No aphasia Dysarthia: Normal Extinction and Inattention: No abnormality Score: 0 Course Course Course Narrative: RME: Done by DUSTY Jin. 33-year-old female past medical history of hypertension presents to ED for feeling drunk past 4 days described as fatigue, headache, and lightheadedness. Patient states also blurry vision. Patient denies any loss of vision, facial droop, paralysis of extremities, or slurred speech. Systolic blood pressure 213/100. NIH score is 0. Patient's EKG labs ordered. Case discussed with Dr. Figueroa for patient to be brought to the ED immediately to bed 20. Medications Administered Discontinued Medications Generic Name Dose Route Start Last Admin Trade Name Freq PRN Reason Stop Dose Admin Diphenhydramine HCl 25 mg 03/24/24 13:20 03/24/24 13:56 Diphenhydramine Hcl 50 Mg/Ml Vial IVPUSH 03/24/24 13:21 25 mg ONCE ONE Administration Hydralazine HCl 10 mg 03/24/24 12:16 03/24/24 12:51 Hydralazine Hcl 20 Mg/Ml Vial IVPUSH 03/24/24 12:17 Not Given ONCE ONE Protocol Sodium Chloride 1,000 mls @ 999 mls/hr 03/24/24 13:30 03/24/24 13:56 Ns IV 03/24/24 14:30 999 mls/hr .Q1H1M MARY Administration Ketorolac Tromethamine 15 mg 03/24/24 13:20 03/24/24 13:56 Ketorolac Tromethamine 15 Mg/Ml Vial IVPUSH 03/24/24 13:21 15 mg ONCE ONE Administration Metoclopramide HCl 10 mg 03/24/24 13:20 03/24/24 13:56 Metoclopramide Hcl 10 Mg/2 Ml Vial IVPUSH 03/24/24 13:21 10 mg ONCE ONE Administration Medical Decision Making Medical Decision Making [facility] Narrative: Patient is a 33-year-old female with history HTN, fibromyalgia, rheumatoid arthritis, migraines, obesity, PCOS presenting to the emergency department with complaint of elevated blood pressure readings at home. On exam patient is awake, A+Ox3, initially hypertensive but BP improved in the ED without medication, VS otherwise WNL, afebrile, normal neurological exam without focal deficits, physical exam findings as above. Given reported symptoms and physical exam findings, initial differential includes essential hypertension, migraine. Less likely ICH, but CT head ordered by triage provider. Labs notable for chronic anemia, troponin, no significant electrolyte abnormalities. CT head notable for no acute abnormalities. My interpretation is in agreement with the radiologist's interpretation. Patient is a pressure spontaneously improved in the emergency department without her receiving the ordered medication. She reports good relief of migraine after medications given in the ED. results discussed with patient and all questions answered. Instructed patient to follow-up with PCP. Return precautions discussed. Patient verbalized understanding of and agreement with plan. Differential Diagnosis Differential Diagnoses: The differential diagnosis associated with the presentation includes As per [facility] Admission/Observation Consideration of admission/observation: Escalation of care including admission/observation considered Patient would have been admitted to the hospital had their work up had any findings where hospital admission was appropriate and their clinical presentation warranted hospital admission. Lab Data [facility] Lab Attestation statement: I reviewed the patient's lab results. As per [facility] 03/24/24 11:56 03/24/24 11:56 Labs: Lab Results 03/24/24 Range/Units 11:56 WBC 8.3 (4.8-10.8) X10*3/uL RBC 3.68 L (4.20-5.50) X10*6/uL Hgb 10.3 L (12.0-16.0) g/dl Hct 31.8 L (37.0-47.0) % MCV 86.4 (80.0-98.0) fL MCH 28.0 (27.0-33.0) pg MCHC 32.4 (31.0-35.0) g/dl RDW 14.5 (11.0-16.0) % Plt Count 301 (160-400) X10*3/uL MPV 9.8 (9.4-12.3) fL Immature Gran % (Auto) 1.3 H (0.0-0.4) % Neut % (Auto) 56.2 (45-73) % Lymph % (Auto) 28.4 (20-40) % Roosevelt % (Auto) 11.6 H (2-11) % Eos % (Auto) 1.9 (0-4) % Baso % (Auto) 0.6 (0-2) % Lymph # (Auto) 2.3 (1.2-4.9) X10*3/uL Roosevelt # (Auto) 1.0 (0.1-1.2) X10*3/uL Eos # (Auto) 0.2 (0.0-0.4) X10*3/uL Baso # (Auto) 0.1 (0.0-0.2) X10*3/uL Abs Immat Gran (auto) 0.11 H (0.00-0.03) X10*3/uL Absolute Neuts (auto) 4.6 (2.0-8.3) x10*3/uL Absolute Nucleated RBC 0.000 (0.0-0.012) X10*3/uL Nucleated RBC % (auto) 0.0 (0.0-0.2) /100WBC PT 11.7 (10.9-12.4) SEC INR 1.0 (0.9-1.1) APTT 28.9 (26.0-36.8) SEC Sodium 143 (135-145) mmol/L Potassium 3.8 (3.3-5.1) mmol/L Chloride 110 H (96-108) mmol/L Carbon Dioxide 28 (22-29) mmol/L Anion Gap 9 L (12-20) BUN 9 (9-16) mg/dL Creatinine 0.72 (0.5-1.4) mg/dL Estim Creat Clear Calc 115.9 Estimated GFR > 60 Random Glucose 108 (60-115) mg/dL Calcium 8.9 (8.4-10.2) mg/dL Total Bilirubin 0.4 (0.0-1.0) mg/dL AST 12 (5-31) U/L ALT 19 (0-31) U/L Alkaline Phosphatase 69 (39-117) U/L Troponin I High Sens < 2.7 (<3.5-17.0) ng/L Total Protein 6.6 (6.5-8.0) g/dL Albumin 3.7 (3.5-5.0) g/dL Beta HCG, Quant < 2 mIU/mL Influenza Type A (PCR) NEGATIVE (Negative) Influenza Type B (PCR) NEGATIVE (Negative) RSV RNA Qual (PCR) NEGATIVE (Negative) SARS-CoV-2 RNA (RT-PCR) NEGATIVE (Negative) Independent Interpretation I performed an independent interpretation of an: EKG (normal sinus rhythm, rate 67bpm, normal TX interval and QTc) and CT Scan Interpretation: CT head is without acute abnormality Radiology Impression Discussion of test interpretation with radiology: I have reviewed the radiologist's reading. Radiologist Impression: CT/CT head/brain wo IV con IMPRESSION: No evidence of acute intracranial hemorrhage or edematous territorial infarction. External Record Review External record reviewed: Inpatient record, Office record and Outpatient record Discharge Plan Discharge Clinical Impression: Migraines Hypertension Qualifiers: Hypertension type: essential hypertension Qualified Code(s): I10 - Essential (primary) hypertension Patient Disposition: Home, Self-Care Instructions: Migraine Headache (ED), How to Take a Blood Pressure (ED), Chronic Hypertension (ED), Hypertension (ED) Additional Instructions: You were evaluated in the emergency department today for elevated blood pressure readings and headache. Your blood pressure improved in the emergency department without medication. We recommend that you continue taking your blood pressure medication as prescribed by your primary care provider and call his office to schedule a follow-up appointment. Return to the emergency department if you develop worsening headache, additional high blood pressure readings, changes in vision, chest pain, shortness of breath, or any other concerning symptoms. Prescriptions: No Action (DME) FRONT-WHEELED WALKER See Rx Instructions .Route .MEDSUPPLY Qty: 1 0RF Rx Instructions: As directed (DME) TUB SEAT with BACK See Rx Instructions .Route .MEDSUPPLY Qty: 1 0RF Rx Instructions: As directed (DME) BEDSIDE COMMODE See Rx Instructions .Route .MEDSUPPLY Qty: 1 0RF Rx Instructions: As directed gabapentin 400 mg capsule 400 mg PO TID 30 Days Qty: 90 3RF Rx Instructions: 1 capsule Orally Three times a day labetalol 100 mg tablet 100 mg PO BID 90 Days Qty: 180 1RF Paxlovid 300 mg (150 mg x 2)-100 mg tablets,dose pack See Rx Instructions PO .COMPLEX Qty: 30 0RF Rx Instructions: take TWO 150 mg tablets of nirmatrelvir with ONE 100 mg tablet of ritonavir twice daily for 5 days PO ibuprofen [IBU] 800 mg tablet 800 mg PO Q8H PRN (Reason: pain/headaches) 30 Days Qty: 90 0RF Rx Instructions: Take with food metoclopramide HCl [Reglan] 5 mg tablet 5 mg PO BID hydroxyzine HCl 25 mg tablet 25 mg PO DAILY lorazepam 1 mg tablet 1 mg PO DAILY PRN (Reason: Anxiety) bupropion HCl 300 mg tablet extended release 24 hr 300 mg PO DAILY dexlansoprazole [Dexilant] 60 mg capsule,biphase delayed releas 60 mg PO DAILY@0630 Linzess 290 mcg capsule 290 mcg PO DAILY Creon 36,000-114,000- 180,000 unit capsule,delayed release(DR/EC) 1 cap PO TIDWM acetaminophen [Tylenol] 325 mg Tablet 650 mg PO Q6H PRN (Reason: Pain) albuterol sulfate 90 mcg/actuation aerosol powdr breath activated 2 inh inhalation Q6H PRN (Reason: shortness of breath or wheezing) tamsulosin 0.4 mg capsule 0.4 mg PO BEDTIME 14 Days Qty: 14 0RF naproxen 500 mg tablet 500 mg PO BID PRN (Reason: pain) 7 Days Qty: 14 0RF sertraline 100 mg tablet 100 mg PO DAILY (DME) nebulizers [Compact Compressor Nebulizer] Misc See Rx Instructions .Route Qty: 1 0RF Rx Instructions: As directed (DME) lancets [FreeStyle Lancets] 28 gauge misc See Rx Instructions .ROUTE .MEDSUPPLY Qty: 100 1RF Rx Instructions: 4 times/day pyridoxine (vitamin B6) 100 mg tablet 100 mg PO DAILY 90 Days Qty: 90 1RF budesonide-formoterol [Symbicort] 160-4.5 mcg/actuation HFA aerosol inhaler 2 puff inhalation Q12H Qty: 10.2 3RF prednisone 20 mg tablet 40 mg PO DAILY Qty: 10 0RF albuterol sulfate 2.5 mg /3 mL (0.083 %) solution for nebulization 2.5 mg inhalation Q6H PRN (Reason: Shortness Of Breath Or Wheezing) Qty: 180 3RF phenazopyridine 100 mg tablet 100 mg PO Q8H 14 Days Qty: 42 0RF Interventions: ED Discharge Assessment Last Done: 03/24/24 15:43 Discharge Date/Time: 03/24/24 15:45 Print Language: Setswana
[2024-03-24 12:03] LABS: MANUAL DIFF FLAG NO
[2024-03-24 12:04] LABS: Basophils Absolute Auto 0.1 X10*3/uL (0.0-0.2); Basophils Percent Auto 0.6 % (0-2); Eosinophils Absolute Auto 0.2 X10*3/uL (0.0-0.4); Eosinophils Percent Auto 1.9 % (0-4); Hematocrit 31.8 % (37.0-47.0); Hemoglobin 10.3 g/dl (12.0-16.0); Imm Gran Abs Auto 0.11 X10*3/uL (0.00-0.03); Imm Gran Pct Auto 1.3 % (0.0-0.4); Lymphocytes Absolute Auto 2.3 X10*3/uL (1.2-4.9); Lymphocytes Percent Auto 28.4 % (20-40); Mean Corpuscular HGB Conc 32.4 g/dl (31.0-35.0); Mean Corpuscular Volume 86.4 fL (80.0-98.0); Mean Platelet Volume 9.8 fL (9.4-12.3); Monocytes Percent Auto 11.6 % (2-11); Neutrophils Absolute Auto 4.6 x10*3/uL (2.0-8.3); Neutrophils Percent Auto 56.2 % (45-73); Platelet Count 301 X10*3/uL (160-400); Red Blood Count 3.68 X10*6/uL (4.20-5.50); Red Cell Distribution Width 14.5 % (11.0-16.0); White Blood Count 8.3 X10*3/uL (4.8-10.8)
[2024-03-24 12:11] LABS: Prothrombin Time 11.7 SEC (10.9-12.4)
[2024-03-24 12:14] LABS: Partial Thromboplastin Time 28.9 SEC (26.0-36.8)
[2024-03-24 12:25] LABS: HCG Quantitative < 2 mIU/mL; Troponin-I High Sensitivity < 2.7 ng/L (<3.5-17.0)
[2024-03-24 12:29] VITALS: BP 144/82; PULSE 60; RESP 18; TEMP 36.9; O2SAT 100
[2024-03-24 12:30] LABS: Alanine Aminotransferase 19 U/L (0-31); Albumin Level 3.7 g/dL (3.5-5.0); Alkaline Phosphatase 69 U/L (39-117); Anion Gap 9 (12-20); Aspartate Amino Transferase 12 U/L (5-31); Bilirubin Total 0.4 mg/dL (0.0-1.0); Blood Urea Nitrogen 9 mg/dL (9-16); Calcium 8.9 mg/dL (8.4-10.2); Carbon Dioxide 28 mmol/L (22-29); Chloride 110 mmol/L (96-108); Creatinine Clr Calc Pharmacy 115.9; Estimated Glomerular Filt Rate > 60; Glucose Random 108 mg/dL (60-115); Potassium 3.8 mmol/L (3.3-5.1); Sodium 143 mmol/L (135-145); Total Protein 6.6 g/dL (6.5-8.0)
[2024-03-24 12:46] LABS: Influenza A PCR NEGATIVE (Negative); Influenza B PCR NEGATIVE (Negative); Resp Syncy Virus RNA Qual PCR NEGATIVE (Negative); SARS COV2 PCR INHOUSE NEGATIVE (Negative)
[2024-03-24] MEDS: diphenhydrAMINE HCL 50 MG/ML VIAL 25 MG IVPUSH (13:56)
[2024-03-24] MEDS: 0.9 % Sodium Chloride 1,000 ML 999 ML IV (13:56)
[2024-03-24] MEDS: Ketorolac Tromethamine 15 MG/ML VIAL IVPUSH (13:56)
[2024-03-24] MEDS: Metoclopramide HCl 10 MG/2 ML VIAL IVPUSH (13:56)
[2024-03-24 15:43] VITALS: BP 143/76; PULSE 73; RESP 18; TEMP 36.6; O2SAT 99
== END 2024-03-24 15:45 | disposition home or self-care (01) ==
PROVIDERS: Physician Assistant; Emergency Provider Emergency Medicine; PCP Internal Medicine
DX: G43.909 Migraine, unspecified, not intractable, without status migrainosus (principal); I10 Essential (primary) hypertension; Z79.899 Other long term (current) drug therapy; Z03.818 Encounter for observation for suspected exposure to other biological agents ruled out
CPT/HCPCS: 0241U; 36415; 70450; 80053; 84484; 84702; 85025; 85610; 85730; 93005; 96374; 96375; 99284; 99285; J1200; J1885; J2765

== ENCOUNTER → 2024-03-24 11:22 | Outpatient (BNV) | payer OTHER, SELFPAY | PROVIDERS: Emergency Provider Emergency Medicine; PCP Internal Medicine; Visit Provider Internal Medicine Cardiovascular Disease | DX: I10 Essential (primary) hypertension (principal); R51.9 Headache, unspecified | CPT/HCPCS: 93010 ==

== ENCOUNTER 2024-03-25 22:31 | Emergency (ER) | payer OTHER, SELFPAY ==
--- NOTE | 2024-03-25 | ECG_ITS ---
Test Reason : CHEST TIGHTNESS Blood Pressure : / mmHG Vent. Rate : 063 BPM Atrial Rate : 063 BPM P-R Int : 146 ms QRS Dur : 090 ms QT Int : 404 ms P-R-T Axes : 043 041 019 degrees QTc Int : 413 ms Normal sinus rhythm Normal ECG When compared with ECG of 24-MAR-2024 11:23, No significant change was found Referred By: Generic ED Physician Electronically Signed By:LEANA ÁLVAREZ MD
[2024-03-25 23:53] VITALS: BP 139/83; PULSE 71; RESP 20; TEMP 36.6; O2SAT 98; BMI 41.2
== END 2024-03-26 01:04 | disposition left against medical advice (07) ==
PROVIDERS: Emergency Provider Emergency Medicine; PCP Internal Medicine
DX: R07.89 Other chest pain (principal); I10 Essential (primary) hypertension
CPT/HCPCS: 93005; 99281; 99283

== ENCOUNTER → 2024-03-25 23:56 | Outpatient (BNV) | payer OTHER, SELFPAY | PROVIDERS: Emergency Provider Emergency Medicine; PCP Internal Medicine; Visit Provider Internal Medicine Cardiovascular Disease | DX: R07.9 Chest pain, unspecified (principal) | CPT/HCPCS: 93010 ==

== ENCOUNTER 2024-04-03 12:41 | Outpatient (AMB) | payer OTHER, SELFPAY ==
[2024-04-03 12:42] VITALS: BP 126/82; PULSE 67; BMI 39.7
--- NOTE | 2024-04-03 12:42 | MHC.PC.OV ---
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: No Accompanied by: Self / Same As Patient Allergies amoxicillin [AMOXICILLIN] Allergy (Intermediate, Verified 04/03/24 13:14) NAUSEA & VOMITING, stomach pain, vomiting, stomach upset topiramate [From TOPAMAX] Allergy (Intermediate, Verified 04/03/24 13:14) TREMORS, nausea and vomiting latex [LATEX] Allergy (Mild, Verified 04/03/24 13:14) RASH medroxyprogesterone [From PROVERA] Allergy (Mild, Verified 04/03/24 13:14) RASH lactose Allergy (Verified 04/03/24 13:14) bloating , diarrhea Medication List - Last Reconciled 04/03/24 by Jarrod Sherman MD acetaminophen (Tylenol) 650 mg PO Q6H PRN albuterol sulfate 90 mcg/actuation 2 inhalations inhalation Q6H PRN albuterol sulfate 2.5 mg (3 mL) inhalation Q6H PRN [BEDSIDE COMMODE As directed] budesonide-formoterol 160-4.5 mcg/actuation (Symbicort) 2 puffs inhalation Q12H bupropion HCl XL 300 mg PO DAILY dexlansoprazole (Dexilant) 60 mg PO DAILY@0630 [FRONT-WHEELED WALKER As directed] gabapentin 400 mg PO TID 30 days hydroxyzine HCl 25 mg PO DAILY ibuprofen (IBU) 800 mg PO Q8H PRN 30 days labetalol 100 mg PO BID 90 days lancets (FreeStyle Lancets) 4 times/day linaclotide (Linzess) 290 mcg PO DAILY mglfhc-kccedpcv-vopmbch 36,000-114,000- 180,000 unit (Creon) 1 cap PO TIDWM lorazepam 1 mg PO DAILY PRN metoclopramide HCl (Reglan) 5 mg PO BID nebulizers (Compact Compressor Nebulizer) As directed pyridoxine (vitamin B6) 100 mg PO DAILY 90 days sertraline 100 mg PO DAILY [TUB SEAT with BACK As directed] Tobacco use date assessed: 04/03/24 Dental Screening Dental Screen Date: 04/03/24 Did you have a dental visit in the last 12 months?: Yes Did you have a dental problem in the last 6 months where you did not have access to dental care?: No Was dental information given to patient?: Patient has dentist [facility] 03/26 high bp HPI Details Patient comes in today for HDF follow up States that she went to the ER last week due to frequently elevated BP readings at home as well as recurrent headaches and lightheadedness at the time Her initial blood pressure at the ER was reportedly very high at 213/100 mm and gradually came down to around 143/76 before she was discharged back home Works ups done in the hospital, including labs, CXR, EKG and head CT, all came out normal She was advised to continue on her current BP med dose (Labetalol 100 mg BID) and to follow up with her PCP [facility] Patient states that she currently feels okay and has not had any further recurrence of her symptoms since Her BP readings have also been much better over the past week She denies any headaches or dizziness over the past week Denies any chest pains, no increased SOB No nausea/vomiting, no abdominal pain No change in bowel habits noted [facility] Medical History Obesity (BMI 30-39.9) Anxiety Encounter for preoperative pulmonary examination Benign essential hypertension Gallstones Thoracic back pain Depression Tension headache Myofascial pain Sacroiliac joint pain Bilateral primary osteoarthritis of hip Post depression BMI 39.0-39.9,adult Trigger finger of left thumb Trigger finger of right thumb Insomnia Morbid obesity with BMI of 40.0-44.9, adult Smoker Annual physical exam Carpal tunnel syndrome, bilateral Personal history of gestational diabetes Supervision of other high risk , antepartum Supervision of other normal PCOS (polycystic ovarian syndrome) control counseling Migraines Vulvar cyst Anxiety Hyperlipemia Fibromyalgia Rheumatoid arthritis Surgical History S/P laparoscopic cholecystectomy (03/06/23) H/O tubal ligation History of hip replacement, total History of esophagogastroduodenoscopy (EGD) History of removal of cyst History of tonsillectomy and adenoidectomy Family History Father Medical history unknown Mother Diabetes Hypertension Maternal Aunt Breast cancer Ovarian cancer Mental health disorder Maternal Grandmother Diabetes Hypertension Social History Household Members: Significant Other and Children Housing: House Alcohol intake: current Alcohol intake frequency: holidays/special occasions only Patient Tobacco Use Status: Former Tobacco user Tobacco use type: Cigarette e-Cigarette/Vaping Use: Never Used Second Hand Smoke Exposure: No Substance Use Type: Marijuana service: No Current occupational status: disabled Sexual orientation: Straight/Heterosexual Gender identity: Female Cognitive needs: No Hearing needs: No Vision needs: Yes Female Reproductive History Menstrual Age of Menarche: 8 Questionnaire PHQ-9 Over the last 2 weeks, how often have you been bothered by any of the following problems? 1. Little interest or pleasure in doing things: several days 2. Feeling down, depressed, or hopeless: several days 3. Trouble falling or staying asleep, or sleeping too much: several days 4. Feeling tired or having little energy: several days 5. Poor appetite or overeating: several days 6. Feeling bad about yourself - or that you are a failure or have let yourself or your family down: several days 7. Trouble concentrating on things, such as reading the newspaper or watching television: several days 8. Moving or speaking so slowly that other people could have noticed. Or the opposite - being so fidgety or restless that you have been moving around a lot more than usual: not at all 9. Thoughts that you would be better off or of hurting yourself in some way: not at all Total score: 7 Depression Screening Interpretation: Positive Depression Screening Follow-up: Existing condition and In treatment Depression Screening Done: Yes 84192 - PHQ-9 Billing: Yes Source: Developed by Drs. Cuco Richards, Itzel Ordaz, Eliud Ladd and colleagues, with an educational lino from [employer]. Thrive Questionnaire Date Thrive assessed: 04/03/24 I am a: Patient What is your living situation today?: I have a steady place to live Within the past 12 months, did the food you bought not last and you didn't have the money to get more?: Never true Within the past 12 months, did you worry whether your food would run out before you got money to buy more?: Never true Do you have trouble paying for medicines?: No Do you have trouble getting transportation to medical appointments?: No Do you have trouble paying your heating and electricity bill?: No Do you have trouble taking care of your child, family member or friend?: No Do you have trouble with day-to-day activities such as bathing, preparing meals, shopping, managing finances, etc.?: No Are you currently unemployed and looking for a job?: No Are you interested in more education?: No Please select the resources that you would like help with: None Currently or been in a relationship where the following occur: No concerns reported THRIVE Score: 0 AUDIT C Alcohol Use Questionnaire (AUDIT-C) 1. How often do you have a drink containing alcohol?: Never 3. How often do you have six or more drinks on one occasion?: Never Total Score: 0 Score Reviewed/Action Taken: Yes STEPHANIE-7 AMB Questionnaire STEPHANIE-7 Date STEPHANIE - 7 assessed: 04/03/24 Feeling nervous, anxious, or on edge: 0 = Not at all Not being able to stop or control worryin = Not at all Worrying too much about different things: 0 = Not at all Trouble relaxin = Not at all Being so restless that it is hard to sit still: 0 = Not at all Becoming easily annoyed or irritable: 0 = Not at all Feeling afraid as if something awful might happen: 0 = Not at all Total STEPHANIE-7 score (0-4 normal; 5-9 mild; 10-14 moderate; 15-21 severe): 0 Source: Developed by Drs. Cuco Richards, Itzel Ordaz, Eliud Ladd and colleagues, with an educational lino from [employer]. Review of Systems Const Denies chills, Reports fatigue, Denies fever(s) and Denies headache(s) ENT Denies dysphagia, Denies dizziness, Denies otalgia, Denies headache(s), Denies neck pain, Denies odynophagia and Denies sore throat Card Denies chest pain, Denies rapid heart rate, Denies irregular heart rhythm, Denies palpitations and Denies dyspnea Resp Denies chest congestion, Denies cough and Denies dyspnea GI Denies abdominal pain, Denies constipation, Denies dysphagia, Denies heartburn, Denies diarrhea, Denies nausea, Denies odynophagia and Denies vomiting Denies hematuria, Denies urinary frequency, Denies dysuria and Denies urinary urgency Musc Reports back pain (on and off, over the lower back), Reports arthralgias (over the left hip - chronic) and Denies neck pain Skin/Breast Denies rash Neuro Denies dizziness, Denies headache(s) and Denies paresthesias Psych Denies anxiety and Denies depression Endo Reports fatigue and Denies palpitations Teddy/Lymph Denies easy bruising Physical exam (Primary Care) Vital Signs: Last Vital Signs Pulse 67 04/03/24 12:42 BP 126/82 04/03/24 12:42 Oxygen Delivery Method Room Air 04/03/24 12:42 BMI result Body Mass Index 39.7 Tobacco/Smoking Status: Tobacco use Status Tobacco use date assessed 04/03/24 04/03/24 12:50 Patient Tobacco Use Status Former Tobacco user 04/03/24 12:50 Tobacco use type Cigarette 04/03/24 12:50 e-Cigarette/Vaping Use Never Used 04/03/24 12:50 PHQ-9: PHQ-9 Score PHQ-9: Total score 7 04/04/24 05:20 Depression Screening Interpretation: Positive Depression Screening Follow-up: Existing condition and In treatment Thrive Assessment: Date of Thrive Assessment Date Thrive assessed 04/03/24 04/03/24 12:50 Currently or been in a relationship where the following occur: No concerns reported Const General: no acute distress and alert HENMT Ears: TM's normal bilaterally and EAC's normal Throat: Yes posterior oropharynx normal and Yes tonsils normal (no TP congestion) Neck Neck: Yes no lymphadenopathy and Yes supple Thyroid: Thyroid normal Resp Auscultation: clear to auscultation bilaterally, no rales and no wheezes Cardio Rate: regular rate Rhythm: regular rhythm Heart sounds: no murmurs GI Palpation (GI): Soft to palpation and nontender Auscultation: normal bowel sounds General: Yes no CVA tenderness Back/Spine/Pelvis Back: no CVA tenderness Thoracic/Lumbar Spine: lumbar spinal tenderness (mild) Skin Rashes: no rashes Extrem General: Yes no clubbing, cyanosis or edema Office Procedures Flu Questionnaire Does the patient have a severe egg allergy?: No Immunizations Fluarix Triv [id number] (PF) 45 mcg (15 mcg x 3)/0.5 mL IM syringe Performing Provider: Jarrod Sherman MD [facility] Documented (not given) by: EMILY Ceballos on 04/03/24 12:59 Reason Not Given: Patient Refused Coding Level of Care Code Est Pt Level 3 (91775) Diagnoses Benign essential hypertension I10 Assessment & Plan Assessment & Plan (1) Benign essential hypertension: Code(s): I10 - Essential (primary) hypertension Category: Medical Plan: Reinforced low sodium diet Patient is advised that her blood pressure appears to be well-controlled again now and that it was likely high a couple of weeks ago due to the effects of the Prednisone that she was still on at the time as well as partially due to her anxiety Continue Labetalol 100 mg BID She is advised to continue monitoring her blood pressure regularly Plan Follow up in June 2024 as scheduled Orders: Orders Influenza [id number] Immunization 04/03/24 Z23 - Encounter for immunization
== END 2024-04-03 13:20 | disposition home or self-care (01) ==
PROVIDERS: PCP Internal Medicine; Visit Provider Internal Medicine
DX: I10 Essential (primary) hypertension (principal)

== ENCOUNTER → 2024-04-03 12:41 | Outpatient (BNVA) | payer OTHER, SELFPAY | PROVIDERS: PCP Internal Medicine; Visit Provider Internal Medicine | DX: I10 Essential (primary) hypertension (principal); Z79.899 Other long term (current) drug therapy; Z28.21 Immunization not carried out because of patient refusal | CPT/HCPCS: 90471; 96127; 99212 ==

== ENCOUNTER 2024-04-08 13:54 | Outpatient (AMB) | payer OTHER, SELFPAY ==
--- NOTE | 2024-04-08 13:55 | A.OFFVIS_ITS ---
Vital Signs 04/08/24 13:57 Height 5 ft 1 in Weight 214 lb 4 oz BMI 40.5 BP 118/62 Blood Pressure Location Rt brachial Position Sitting Pulse 65 Pulse Source Pulse Oximeter Pulse Oximetry (%) 99 Oxygen Delivery Method Room Air Intake Visit Reasons: COPD Allergies amoxicillin [AMOXICILLIN] Allergy (Intermediate, Verified 04/08/24 14:01) NAUSEA & VOMITING, stomach pain, vomiting, stomach upset topiramate [From TOPAMAX] Allergy (Intermediate, Verified 04/08/24 14:01) TREMORS, nausea and vomiting latex [LATEX] Allergy (Mild, Verified 04/08/24 14:01) RASH medroxyprogesterone [From PROVERA] Allergy (Mild, Verified 04/08/24 14:01) RASH lactose Allergy (Verified 04/08/24 14:01) bloating , diarrhea HPI HPI COPD: Details: Gabriella is a very pleasant 33 year-old female, never tobacco smoker, with underlying asthma COPD overlap, rheumatoid arthritis and fibromyalgia. At baseline she reports moderate control of respiratory symptoms on Symbicort, albuterol MDI/neb. She was seen on 03/17 with worsening dyspnea, wheezing, chest tightness and persistent dry cough after testing COVID + 2 weeks prior. She had been using albuterol MDI/neb multiple times per day with minimal relief. She was treated with prednisone and reports significant improvement in symptoms. She reports intermittent dry cough, with occasional chest tightness which she attributes to allergies, no prior allergy testing. [facility] Medical History Obesity (BMI 30-39.9) Anxiety Encounter for preoperative pulmonary examination Benign essential hypertension Gallstones Thoracic back pain Depression Tension headache Myofascial pain Sacroiliac joint pain Bilateral primary osteoarthritis of hip Post depression BMI 39.0-39.9,adult Trigger finger of left thumb Trigger finger of right thumb Insomnia Morbid obesity with BMI of 40.0-44.9, adult Smoker Annual physical exam Carpal tunnel syndrome, bilateral Personal history of gestational diabetes Supervision of other high risk , antepartum Supervision of other normal PCOS (polycystic ovarian syndrome) control counseling Migraines Vulvar cyst Anxiety Hyperlipemia Fibromyalgia Rheumatoid arthritis Surgical History S/P laparoscopic cholecystectomy (03/06/23) H/O tubal ligation History of hip replacement, total History of esophagogastroduodenoscopy (EGD) History of removal of cyst History of tonsillectomy and adenoidectomy Family History Father Medical history unknown Mother Diabetes Hypertension Maternal Aunt Breast cancer Ovarian cancer Mental health disorder Maternal Grandmother Diabetes Hypertension Social History Household Members: Significant Other and Children Housing: House Alcohol intake: current Alcohol intake frequency: holidays/special occasions only Patient Tobacco Use Status: Former Tobacco user Tobacco use type: Cigarette e-Cigarette/Vaping Use: Never Used Second Hand Smoke Exposure: No Substance Use Type: Marijuana service: No Current occupational status: disabled Sexual orientation: Straight/Heterosexual Gender identity: Female Cognitive needs: No Hearing needs: No Vision needs: Yes Female Reproductive History Menstrual Age of Menarche: 8 Review of Systems Const Denies chills, Denies excessive sweating, Denies fever(s) and Denies night sweats Eyes Denies dry eyes and Reports itchy eyes ENT Reports Normal hearing present, Reports nasal congestion, Reports nasal discharge, Reports post nasal drip and Denies sore throat Card Denies chest pain, Denies chest pain at rest, Denies chest pain with activity, Denies claudication, Denies leg edema, Denies orthopnea and Denies paroxysmal nocturnal dyspnea Resp Denies chest congestion, Denies excessive phlegm production, Denies pain on inspiration, Denies pain with cough and Denies stridor Musc Denies myalgias Neuro Reports Normal hearing present Endo Denies excessive sweating Teddy/Lymph Denies lymphadenopathy Aller/Immun Reports itchy eyes and Denies seasonal rhinorrhea Physical Exam Vital Signs: Last Vital Signs Pulse 65 04/08/24 13:57 BP 118/62 04/08/24 13:57 Pulse Ox 99 04/08/24 13:57 Oxygen Delivery Method Room Air 04/08/24 13:57 BMI result Body Mass Index 40.5 Const General: cooperative, no acute distress, well developed and alert Nutritional Appearance: obese Orientation/consciousness: patient oriented x3 Limitations: no limitations HEENT Head: Yes normal to inspection, Yes normocephalic and Yes atraumatic Ears: hearing grossly normal bilaterally and external ears normal Eyes General: appearance normal, both eyes and all related structures Eyelids: Yes eyelids normal Sclerae: sclerae normal EOM: EOMs intact bilaterally Neck Neck: Yes normal visual inspection and Yes no lymphadenopathy Lymphatic: no lymphadenopathy noted Chest Chest palpation & inspection: normal inspection of the chest Resp Effort & Inspection: normal respiratory effort, able to speak in complete sentences, no audible wheezes, no stridor, not tachypneic and no tripod positioning Auscultation: diminished lung sounds Cardio Jugular venous distension: no JVD Rate: regular rate Rhythm: regular rhythm Skin Other: warm, dry General skin exam: no rashes or lesions noted Neuro General: patient oriented x3 Cranial nerves: Yes Normal hearing present Cognition (Neuro): normal cognition Gait exam (Neuro): Normal gait present Extrem General: Yes normal to inspection, Yes capillary refill normal, Yes no clubbing, cyanosis or edema and Yes no pedal edema Psych Appearance: grossly normal and well kempt Speech and movement: Normal speech and movement present and Clear speech present Affect: normal affect Attitude: cooperative Thought process: Normal thought process present Thought content: Normal thought content present Insight: Good insight present (Psych) Judgement: Good judgement present (Psych) Assessment & Plan Assessment & Plan (1) Asthma-COPD overlap syndrome: Code(s): J44.89 - Other specified chronic obstructive pulmonary disease Category: Medical (2) Environmental allergies: Code(s): Z91.09 - Other allergy status, other than to drugs and biological substances Category: Medical Plan Gabriella reports moderate control of respiratory symptoms with Symbicort and albuterol PRN, advised to continue and will add singulair. Reviewed side effects. Will also send for RAST. All questions answered and patient is in agreement of plan. Will follow in 4-6 weeks or sooner if needed. Orders: Orders Immunoglobulin E Today Z91.09 - Other allergy status, other than to drugs and biological substances Complete Blood Count Auto Diff Today Z91.09 - Other allergy status, other than to drugs and biological substances Resp Allergy Profile Region I Today Z91.09 - Other allergy status, other than to drugs and biological substances Medications: New montelukast (Singulair) 10 mg PO BEDTIME 30 tabs 3RF Coding Level of Care Code Est Pt Level 4 (18646) Diagnoses Asthma-COPD overlap syndrome J44.89 Environmental allergies Z91.09
[2024-04-08 13:57] VITALS: BP 118/62; PULSE 65; O2SAT 99; BMI 40.5
== END 2024-04-08 14:16 | disposition home or self-care (01) ==
PROVIDERS: PCP Internal Medicine; Visit Provider Nurse Practitioner Family
DX: J44.89 Other specified chronic obstructive pulmonary disease (principal); Z91.09 Other allergy status, other than to drugs and biological substances
CPT/HCPCS: 99214

== ENCOUNTER → 2024-04-08 13:54 | Outpatient (BNVA) | payer OTHER, SELFPAY | PROVIDERS: PCP Internal Medicine; Visit Provider Nurse Practitioner Family | DX: J44.89 Other specified chronic obstructive pulmonary disease (principal); Z91.09 Other allergy status, other than to drugs and biological substances | CPT/HCPCS: 99212 ==

== ENCOUNTER 2024-04-09 08:33 | Outpatient (REF) | payer OTHER, SELFPAY ==
--- NOTE | ~2024-04-09 | XR_ITS ---
EXAMINATION: XR ABDOMEN KUB 3 VIEWS CLINICAL INDICATION: Obstructive and reflux uropathy, unspecified N13.9. COMPARISON: XR KUB 02/05/2024 TECHNIQUE: AP view of the abdomen. FINDINGS: No dilated air-filled loops of small bowel to suggest an obstructive process. There is a mild to moderate stool burden throughout the colon. No calcific densities noted projecting over either renal shadow or expected course of either ureter. Surgical clips in the right upper abdomen consistent with prior cholecystectomy. Small right pelvic calcification is stable and likely vascular in nature. Partially visualized bilateral hip prosthesis. No acute osseous abnormality. XR/XR KUB IMPRESSION: Mild to moderate stool burden throughout the colon. Electronically signed by: Houston Villa MD 05/27/2024 09:35 AM LONNIE
[2024-04-09 09:02] LABS: MANUAL DIFF FLAG NO
[2024-04-09 09:25] LABS: Basophils Percent Auto 0.5 % (0-2); Eosinophils Absolute Auto 0.2 X10*3/uL (0.0-0.4); Eosinophils Percent Auto 2.7 % (0-4); Hematocrit 31.9 % (37.0-47.0); Hemoglobin 10.1 g/dl (12.0-16.0); Imm Gran Abs Auto 0.01 X10*3/uL (0.00-0.03); Imm Gran Pct Auto 0.2 % (0.0-0.4); Lymphocytes Absolute Auto 1.8 X10*3/uL (1.2-4.9); Lymphocytes Percent Auto 31.7 % (20-40); Mean Corpuscular HGB Conc 31.7 g/dl (31.0-35.0); Mean Corpuscular Hemoglobin 27.8 pg (27.0-33.0); Mean Corpuscular Volume 87.9 fL (80.0-98.0); Mean Platelet Volume 10.2 fL (9.4-12.3); Monocytes Absolute Auto 0.6 X10*3/uL (0.1-1.2); Monocytes Percent Auto 10.4 % (2-11); Neutrophils Percent Auto 54.5 % (45-73); Platelet Count 287 X10*3/uL (160-400); Red Blood Count 3.63 X10*6/uL (4.20-5.50); Red Cell Distribution Width 14.5 % (11.0-16.0); White Blood Count 5.6 X10*3/uL (4.8-10.8)
[2024-04-09 09:43] LABS: Appearance Urine Clear; Color Urine Yellow; Glucose Urine UA Negative (Negative); Leukocyte Esterase Urine Negative (Negative); Nitrite Urine Negative (Negative); Specific Gravity - Urine 1.015 (1.005-1.025); Urine Blood Negative (Negative); Urine Ketones Negative (Negative); Urine Protein Negative (Neg-Trace)
[2024-04-09 10:08] LABS: Alanine Aminotransferase 21 U/L (0-31); Albumin Level 3.8 g/dL (3.5-5.0); Alkaline Phosphatase 67 U/L (39-117); Anion Gap 8 (12-20); Aspartate Amino Transferase 17 U/L (5-31); Bilirubin Total 0.5 mg/dL (0.0-1.0); Blood Urea Nitrogen 9 mg/dL (9-16); Carbon Dioxide 28 mmol/L (22-29); Chloride 110 mmol/L (96-108); Cholesterol 160 mg/dL (<200); Estimated Glomerular Filt Rate > 60; Glucose Fasting 92 mg/dL (60-99); HDL Cholesterol 44 mg/dL (>40); Iron 80 mcg/dL (30-160); LDL Cholesterol Calculated 102 mg/dL (<100); Percent Iron Saturation 29 % (15-50); Sodium 142 mmol/L (135-145); Total Iron Binding Capacity 275 mcg/dL (228-428); Total Protein 6.7 g/dL (6.5-8.0); Triglycerides 73 mg/dL (<150); Unsaturated Iron Binding 195 ug/dL
[2024-04-09 10:23] LABS: TSH reflex Free T4 1.82 uIU/mL (0.32-4.0); Vitamin D 25-OH Total 17.6 ng/mL (>30)
[2024-04-10 22:48] LABS: Class Alternaria alternata 0; Class Aspergillus fumigatus 0; Class Bermuda Grass 0; Class Birch 0; Class Cat Dander 0; Class Cladosporium herbarum 0; Class Cockroach 0; Class Common Ragweed 0; Class Cottonwood 0; Class Derm. pterony 0; Class Dermatophagoides farinae 0; Class Dog Dander 0; Class Elm 0; Class Maple Box Elder 0; Class Mountain Cedar 0; Class Mouse Urine Protein 0; Class Mugwort 0; Class Oak 0; Class Penicillium crysogenum 0; Class Rough Pigweed 0; Class Sheep Sorrel 0; Class Sycamore 0; Class Timothy Grass 0; Class Walnut Tree 0; Class White Ash 0; Class White Mulberry 0; D001 IgE D pteronyssinus <0.10 kU/L; D002 - IgE D farinae <0.10 kU/L; E001 - IgE Cat Dander <0.10 kU/L; E005 - IgE Dog Dander <0.10 kU/L; E072-IgE Mouse Urine <0.10 kU/L; G002 IgE Bermuda Grass <0.10 kU/L; G006 - IgE Timothy Grass <0.10 kU/L; I006-IgE Cockroach, German <0.10 kU/L; Immunoglobulin E 16 kU/L (<OR=114); Immunoglobulin E 17 kU/L (<OR=114); M001 IgE Penicillium chrysogen <0.10 kU/L; M002 - IgE Cladosporium herbar <0.10 kU/L; M003 - IgE Aspergillus fumigat <0.10 kU/L; M006 - IgE Alternaria alternat <0.10 kU/L; T001 IgE Maple/Box Elder <0.10 kU/L; T003 IgE Common Silver Birch <0.10 kU/L; T006 - IgE Cedar, Mountain <0.10 kU/L; T007 - IgE Oak, White <0.10 kU/L; T008 IgE Elm, American <0.10 kU/L; T010 - IgE Walnut <0.10 kU/L; T011 - IgE Maple Leaf Sycamore <0.10 kU/L; T014 - IgE Cottonwood <0.10 kU/L; T015 - IgE Ash, White <0.10 kU/L; T070 - IgE White Mulberry <0.10 kU/L; W001 - IgE Ragweed, Short <0.10 kU/L; W006 - IgE Mugwort <0.10 kU/L; W014 IgE Pigweed, Common <0.10 kU/L; W018 IgE Sheep Sorrel <0.10 kU/L
== END 2024-04-09 08:34 | disposition home or self-care (01) ==
LOC: HO.XRAY 08:33
PROVIDERS: Nurse Practitioner Family; Absent Provider Urology; PCP Internal Medicine; Visit Provider Internal Medicine
DX: R30.0 Dysuria (principal); E55.9 Vitamin D deficiency, unspecified; E78.00 Pure hypercholesterolemia, unspecified; D50.9 Iron deficiency anemia, unspecified; Z91.09 Other allergy status, other than to drugs and biological substances; N13.9 Obstructive and reflux uropathy, unspecified
CPT/HCPCS: 36415; 74018; 80053; 80061; 81003; 82306; 82785; 83540; 84443; 85025; 86003

== ENCOUNTER 2024-05-21 01:07 | Emergency (ER) | payer OTHER, SELFPAY ==
--- NOTE | ~2024-05-21 | XR_ITS ---
EXAMINATION: XR CHEST CLINICAL INFORMATION: dyspnea COMPARISON: October 31, 2023 TECHNIQUE: 2 views of the chest were obtained. FINDINGS: No significant abnormality is noted involving the heart, lungs, mediastinum, bony thorax or soft tissues. XR/XR chest 2V IMPRESSION: Unremarkable examination. Electronically signed by: Jan Covington MD 05/21/2024 02:21 AM [facility] - [place], [place]
[2024-05-21 01:16] VITALS: BP 146/83; PULSE 64; RESP 18; TEMP 36.6; O2SAT 100; BMI 40.3
[2024-05-21 02:06] LABS: Influenza A PCR NEGATIVE (Negative); Influenza B PCR NEGATIVE (Negative); Resp Syncy Virus RNA Qual PCR NEGATIVE (Negative); SARS COV2 PCR INHOUSE NEGATIVE (Negative)
--- NOTE | 2024-05-21 03:48 | ED_ITS ---
HPI - SOB/Dyspnea General Chief Complaint: Upper Respiratory Symptoms Stated Complaint: Asthma Time Seen by Provider: 05/21/24 03:32 Source: patient Mode of arrival: ambulatory Limitations: no limitations History of Present Illness ED Provider: annabella KHALIL Narrative: Patient's history of COPD/asthma comes here for cold symptoms coughing wheezing for last 5 days no fever no chills using nebulizer treatment without much relief no chest pain no leg swelling no other family member sick patient has a nebulizer and inhaler at home Related Data Home Medications ?Medication ?Instructions ?Recorded ?Confirmed sertraline 100 mg tablet 100 mg PO DAILY 08/22/20 04/03/24 acetaminophen 325 mg tablet 650 mg PO Q6H PRN Pain 12/29/23 04/03/24 (Tylenol) albuterol sulfate 90 mcg/actuation 2 inh inhalation Q6H PRN shortness 12/29/23 04/03/24 breath activated powder inhaler of breath or wheezing bupropion HCl 300 mg 24 hr tablet, 300 mg PO DAILY 12/29/23 04/03/24 extended release dexlansoprazole 60 mg 60 mg PO DAILY@0630 12/29/23 04/03/24 capsule,biphase delayed release (Dexilant) hydroxyzine HCl 25 mg tablet 25 mg PO DAILY anxiety 12/29/23 04/03/24 linaclotide 290 mcg capsule 290 mcg PO DAILY 12/29/23 04/03/24 (Linzess) [id number] 1 cap PO TIDWM 12/29/23 04/03/24 36,000-114,000-180,000 unit capsule,delay rel (Creon) lorazepam 1 mg tablet 1 mg PO DAILY PRN Anxiety 12/29/23 04/03/24 metoclopramide HCl 5 mg tablet 5 mg PO BID 12/29/23 04/03/24 (Reglan) Previous Rx's ?Medication ?Instructions ?Recorded lancets 28 gauge (FreeStyle #100 ea 06/27/20 Lancets) BEDSIDE COMMODE #1 ea 05/14/22 FRONT-WHEELED WALKER #1 ea 05/14/22 TUB SEAT with BACK #1 ea 05/14/22 gabapentin 400 mg capsule 400 mg PO TID 30 days #90 caps 10/17/22 nebulizers (Compact Compressor #1 ea 02/28/23 Nebulizer) pyridoxine (vitamin B6) 100 mg 100 mg PO DAILY 90 days #90 tabs 07/09/23 tablet labetalol 100 mg tablet 100 mg PO BID 90 days #180 tabs 09/16/23 ibuprofen 800 mg tablet (IBU) 800 mg PO Q8H PRN pain/headaches 03/04/24 30 days #90 tabs albuterol sulfate 2.5 mg/3 mL 2.5 mg (3 mL) inhalation Q6H PRN 03/17/24 (0.083 %) solution for nebulization Shortness Of Breath Or Wheezing #180 mL budesonide-formoterol HFA 160 2 puff inhalation Q12H #10.2 grams 03/17/24 mcg-4.5 mcg/actuation aerosol inhaler (Symbicort) montelukast 10 mg tablet 10 mg PO BEDTIME #30 tabs 04/08/24 (Singulair) hydrocortisone 1 % topical cream 1 appl topical QID PRN itching 05/21/24 #28.35 grams prednisone 20 mg tablet 40 mg (2 x 20 mg) PO DAILY #10 tabs 05/21/24 Allergies Allergy/AdvReac Type Severity Reaction Status Date / Time amoxicillin [AMOXICILLIN] Allergy Intermediate NAUSEA & Verified 05/21/24 01:18 VOMITING, stomach pain, vomiting, stomach upset topiramate [From TOPAMAX] Allergy Intermediate TREMORS, Verified 05/21/24 01:18 nausea and vomiting latex [LATEX] Allergy Mild RASH Verified 05/21/24 01:18 medroxyprogesterone Allergy Mild RASH Verified 05/21/24 01:18 [From PROVERA] lactose Allergy bloating , Verified 05/21/24 01:18 diarrhea Review of Systems Review of Systems: Yes all other systems are reviewed and are negative [facility], [facility] Past Medical History Medical History Obesity (BMI 30-39.9) Anxiety Encounter for preoperative pulmonary examination Benign essential hypertension Gallstones Thoracic back pain Depression Tension headache Myofascial pain Sacroiliac joint pain Bilateral primary osteoarthritis of hip Post depression BMI 39.0-39.9,adult Trigger finger of left thumb Trigger finger of right thumb Insomnia Morbid obesity with BMI of 40.0-44.9, adult Smoker Annual physical exam Carpal tunnel syndrome, bilateral Personal history of gestational diabetes Supervision of other high risk , antepartum Supervision of other normal PCOS (polycystic ovarian syndrome) control counseling Migraines Vulvar cyst Anxiety Hyperlipemia Fibromyalgia Rheumatoid arthritis Surgical History S/P laparoscopic cholecystectomy (03/06/23) H/O tubal ligation History of hip replacement, total History of esophagogastroduodenoscopy (EGD) History of removal of cyst History of tonsillectomy and adenoidectomy Family History Family History Father Medical history unknown Mother Diabetes Hypertension Maternal Aunt Breast cancer Ovarian cancer Mental health disorder Maternal Grandmother Diabetes Hypertension Social History Social History Household Members: Significant Other and Children Housing: House Alcohol intake: current Alcohol intake frequency: holidays/special occasions only Patient Tobacco Use Status: Former Tobacco user Tobacco use type: Cigarette e-Cigarette/Vaping Use: Never Used Second Hand Smoke Exposure: No Substance Use Type: Marijuana Advance Directives: No Advance Directives Information Provided: Yes Do you have a plan to hurt others: No Plan service: No Current occupational status: disabled Sexual orientation: Straight/Heterosexual Gender identity: Female Cognitive needs: No Hearing needs: No Vision needs: Yes Physical Exam Vital Signs: Vital Signs: Last Vital Signs Temp 97.9 F 05/21/24 04:01 Pulse 60 05/21/24 04:13 Resp 22 H 05/21/24 04:13 BP 141/69 H 05/21/24 04:01 Pulse Ox 96 05/21/24 04:01 O2 Del Method Room Air 05/21/24 04:01 BMI result Body Mass Index 40.3 Appearance: Alert. Oriented X3. Modorate acute distress. Eyes: PERRLA, No Nystagmus ENT: Pharynx normal. Oral Mucosa moist Neck: Normal inspection. Neck supple. CVS: Normal heart rate and rhythm. Pulses normal. Respiratory: Moderate respiratory distress. Equal air entry bilateral, bilateral wheezing with frequent cough Abdomen: Soft and nontender. Bowel sounds are present, no mass palpable, no CVA tenderness Skin: Skin warm and dry. Normal skin color. Normal skin turgor. Extremities: No lower extremity edema. No calf tenderness Neuro: Oriented X 3. No motor deficit. Medications Administered Discontinued Medications Generic Name Dose Route Start Last Admin Trade Name Freq PRN Reason Stop Dose Admin Albuterol Sulfate 5 mg/ 0 mg 05/21/24 03:52 05/21/24 04:04 Albuterol/Ipratropium 3 ml INHALE 05/21/24 03:53 7.5 each ONCE ONE Administration Dexamethasone 10 mg 05/21/24 03:52 05/21/24 04:53 Dexamethasone 2 Mg Tablet PO 05/21/24 03:53 10 mg ONCE ONE Administration Guaifenesin/Codeine Phosphate 10 ml 05/21/24 03:54 05/21/24 04:53 Guaifen/Codeine Sf 200/20/10ml 10 Ml Liquid PO 05/21/24 03:55 10 ml ONCE ONE Administration Medical Decision Making Medical Decision Making MDM Narrative: Patient's asthma/COPD improved after nebulizing treatment also was given Decadron cough syrup saturating 96-100% at room air will discharge patient home on prednisone advised to continue nebulizer treatment Differential Diagnosis Differential Diagnoses: The differential diagnosis associated with the presentation includes Lab Data Labs: Lab Results 05/21/24 Range/Units 01:26 Influenza Type A (PCR) NEGATIVE (Negative) Influenza Type B (PCR) NEGATIVE (Negative) RSV RNA Qual (PCR) NEGATIVE (Negative) SARS-CoV-2 RNA (RT-PCR) NEGATIVE (Negative) Discharge Plan Discharge Clinical Impression: Acute asthmatic bronchitis Patient Disposition: Home, Self-Care Instructions: Asthma (ED) Additional Instructions: Continue to use your nebulizer/inhaler treatment every 4-6 hours as needed Prednisone as advised Hydrocortisone cream at the eczematous area in the ER twice a day Prescriptions: New prednisone 20 mg tablet 40 mg PO DAILY Qty: 10 0RF hydrocortisone 1 % cream 1 appl topical QID PRN (Reason: itching) Qty: 28.35 0RF No Action (DME) FRONT-WHEELED WALKER See Rx Instructions .Route .MEDSUPPLY Qty: 1 0RF Rx Instructions: As directed (DME) TUB SEAT with BACK See Rx Instructions .Route .MEDSUPPLY Qty: 1 0RF Rx Instructions: As directed (DME) BEDSIDE COMMODE See Rx Instructions .Route .MEDSUPPLY Qty: 1 0RF Rx Instructions: As directed gabapentin 400 mg capsule 400 mg PO TID 30 Days Qty: 90 3RF Rx Instructions: 1 capsule Orally Three times a day labetalol 100 mg tablet 100 mg PO BID 90 Days Qty: 180 1RF ibuprofen [IBU] 800 mg tablet 800 mg PO Q8H PRN (Reason: pain/headaches) 30 Days Qty: 90 0RF Rx Instructions: Take with food metoclopramide HCl [Reglan] 5 mg tablet 5 mg PO BID hydroxyzine HCl 25 mg tablet 25 mg PO DAILY lorazepam 1 mg tablet 1 mg PO DAILY PRN (Reason: Anxiety) bupropion HCl 300 mg tablet extended release 24 hr 300 mg PO DAILY dexlansoprazole [Dexilant] 60 mg capsule,biphase delayed releas 60 mg PO DAILY@0630 Linzess 290 mcg capsule 290 mcg PO DAILY Creon 36,000-114,000- 180,000 unit capsule,delayed release(DR/EC) 1 cap PO TIDWM acetaminophen [Tylenol] 325 mg Tablet 650 mg PO Q6H PRN (Reason: Pain) albuterol sulfate 90 mcg/actuation aerosol powdr breath activated 2 inh inhalation Q6H PRN (Reason: shortness of breath or wheezing) sertraline 100 mg tablet 100 mg PO DAILY (DME) nebulizers [Compact Compressor Nebulizer] Misc See Rx Instructions .Route Qty: 1 0RF Rx Instructions: As directed (DME) lancets [FreeStyle Lancets] 28 gauge misc See Rx Instructions .ROUTE .MEDSUPPLY Qty: 100 1RF Rx Instructions: 4 times/day pyridoxine (vitamin B6) 100 mg tablet 100 mg PO DAILY 90 Days Qty: 90 1RF budesonide-formoterol [Symbicort] 160-4.5 mcg/actuation HFA aerosol inhaler 2 puff inhalation Q12H Qty: 10.2 3RF albuterol sulfate 2.5 mg /3 mL (0.083 %) solution for nebulization 2.5 mg inhalation Q6H PRN (Reason: Shortness Of Breath Or Wheezing) Qty: 180 3RF montelukast [Singulair] 10 mg tablet 10 mg PO BEDTIME Qty: 30 3RF Print Language: Bangladeshi
[2024-05-21 04:01] VITALS: BP 141/69; PULSE 61; RESP 16; TEMP 36.6; O2SAT 96
[2024-05-21] MEDS: Albuterol Sulfate 5 MG, Albuterol/Iprat 2.5/0.5MG 3 ML 3 ML INHALE (04:04)
[2024-05-21 04:13] VITALS: PULSE 60; RESP 22; O2SAT 100
[2024-05-21] MEDS: dexAMETHasone 2 MG TABLET 10 MG PO (04:53)
[2024-05-21] MEDS: guaiFEN/Codeine SF 200/20/10ML 10 ML LIQUID PO (04:53)
[2024-05-21 06:25] VITALS: BP 133/79; PULSE 74; RESP 16; TEMP 36.8; O2SAT 99
[2024-05-21 07:29] VITALS: BP 133/79; PULSE 74; RESP 16; TEMP 36.8; O2SAT 99
== END 2024-05-21 07:30 | disposition home or self-care (01) ==
PROVIDERS: Emergency Provider Internal Medicine; PCP Internal Medicine
DX: J20.9 Acute bronchitis, unspecified (principal); R06.02 Shortness of breath; Z03.818 Encounter for observation for suspected exposure to other biological agents ruled out
CPT/HCPCS: 0241U; 71046; 94640; 99284; J8540

== ENCOUNTER 2024-05-26 14:22 | Outpatient (AMB) | payer OTHER, SELFPAY ==
--- NOTE | 2024-05-26 14:24 | A.OFFVIS_ITS ---
Vital Signs 05/26/24 14:25 Height 5 ft 1 in Weight 212 lb 8 oz BMI 40.1 BP 130/82 Blood Pressure Location Lt brachial Position Sitting Pulse 59 Pulse Source Pulse Oximeter Pulse Oximetry (%) 96 Oxygen Delivery Method Room Air Intake Visit Reasons: Asthma Allergies amoxicillin [AMOXICILLIN] Allergy (Intermediate, Verified 05/26/24 14:29) NAUSEA & VOMITING, stomach pain, vomiting, stomach upset topiramate [From TOPAMAX] Allergy (Intermediate, Verified 05/26/24 14:29) TREMORS, nausea and vomiting latex [LATEX] Allergy (Mild, Verified 05/26/24 14:29) RASH medroxyprogesterone [From PROVERA] Allergy (Mild, Verified 05/26/24 14:29) RASH lactose Allergy (Verified 05/26/24 14:29) bloating , diarrhea HPI HPI Asthma: Details: Gabriella is a very pleasant 33 year-old female, never tobacco smoker, with underlying asthma COPD overlap, rheumatoid arthritis and fibromyalgia. At baseline she reports moderate control of respiratory symptoms on Symbicort, albuterol MDI/neb. She has had multiple courses of OCS this year related to asthma exacerbations, twice in the past two months. She is currently on prednisone with resolution of symptoms and will finish course in a few days. [facility] Medical History Obesity (BMI 30-39.9) Anxiety Encounter for preoperative pulmonary examination Benign essential hypertension Gallstones Thoracic back pain Depression Tension headache Myofascial pain Sacroiliac joint pain Bilateral primary osteoarthritis of hip Post depression BMI 39.0-39.9,adult Trigger finger of left thumb Trigger finger of right thumb Insomnia Morbid obesity with BMI of 40.0-44.9, adult Smoker Annual physical exam Carpal tunnel syndrome, bilateral Personal history of gestational diabetes Supervision of other high risk , antepartum Supervision of other normal PCOS (polycystic ovarian syndrome) control counseling Migraines Vulvar cyst Anxiety Hyperlipemia Fibromyalgia Rheumatoid arthritis Surgical History S/P laparoscopic cholecystectomy (03/06/23) H/O tubal ligation History of hip replacement, total History of esophagogastroduodenoscopy (EGD) History of removal of cyst History of tonsillectomy and adenoidectomy Family History Father Medical history unknown Mother Diabetes Hypertension Maternal Aunt Breast cancer Ovarian cancer Mental health disorder Maternal Grandmother Diabetes Hypertension Social History Household Members: Significant Other and Children Housing: House Alcohol intake: current Alcohol intake frequency: holidays/special occasions only Patient Tobacco Use Status: Former Tobacco user Tobacco use type: Cigarette e-Cigarette/Vaping Use: Never Used Second Hand Smoke Exposure: No Substance Use Type: Marijuana service: No Current occupational status: disabled Sexual orientation: Straight/Heterosexual Gender identity: Female Cognitive needs: No Hearing needs: No Vision needs: Yes Female Reproductive History Menstrual Age of Menarche: 8 Review of Systems Const Denies chills, Denies excessive sweating, Denies fever(s) and Denies night sweats Eyes Denies dry eyes and Reports itchy eyes ENT Reports Normal hearing present, Reports nasal congestion, Reports nasal discharge, Reports post nasal drip and Denies sore throat Card Denies chest pain, Denies chest pain at rest, Denies chest pain with activity, Denies claudication, Denies leg edema, Denies orthopnea and Denies paroxysmal nocturnal dyspnea Resp Denies chest congestion, Denies excessive phlegm production, Denies pain on inspiration, Denies pain with cough and Denies stridor Musc Denies myalgias Neuro Reports Normal hearing present Endo Denies excessive sweating Teddy/Lymph Denies lymphadenopathy Aller/Immun Reports itchy eyes and Denies seasonal rhinorrhea Physical Exam Vital Signs: Last Vital Signs Pulse 59 05/26/24 14:25 BP 130/82 05/26/24 14:25 Pulse Ox 96 05/26/24 14:25 Oxygen Delivery Method Room Air 05/26/24 14:25 BMI result Body Mass Index 40.1 Const General: cooperative, no acute distress, well developed and alert Nutritional Appearance: obese Orientation/consciousness: patient oriented x3 Limitations: no limitations HEENT Head: Yes normal to inspection, Yes normocephalic and Yes atraumatic Ears: hearing grossly normal bilaterally and external ears normal Eyes General: appearance normal, both eyes and all related structures Eyelids: Yes eyelids normal Sclerae: sclerae normal EOM: EOMs intact bilaterally Neck Neck: Yes normal visual inspection and Yes no lymphadenopathy Lymphatic: no lymphadenopathy noted Chest Chest palpation & inspection: normal inspection of the chest Resp Effort & Inspection: normal respiratory effort, able to speak in complete sentences, no audible wheezes, no stridor, not tachypneic and no tripod positioning Auscultation: diminished lung sounds Cardio Jugular venous distension: no JVD Rate: regular rate Rhythm: regular rhythm Skin Other: warm, dry General skin exam: no rashes or lesions noted Neuro General: patient oriented x3 Cranial nerves: Yes Normal hearing present Cognition (Neuro): normal cognition Gait exam (Neuro): Normal gait present Extrem General: Yes normal to inspection, Yes capillary refill normal, Yes no clubbing, cyanosis or edema and Yes no pedal edema Psych Appearance: grossly normal and well kempt Speech and movement: Normal speech and movement present and Clear speech present Affect: normal affect Attitude: cooperative Thought process: Normal thought process present Thought content: Normal thought content present Insight: Good insight present (Psych) Judgement: Good judgement present (Psych) Assessment & Plan Assessment & Plan (1) Asthma-COPD overlap syndrome: Code(s): J44.89 - Other specified chronic obstructive pulmonary disease Category: Medical Plan Gabriella has been moderately controlled on Symbicort, singulair and albuterol PRN. She has had three exacerbations this year, twice in the last two months. Previously discussed Dupixent and patient is agreeable to move forward. Patient given informational handout on Dupixent and side effects reviewed. All questions answered and patient is in agreement of plan. Will follow up in 8 weeks or sooner if needed. Coding Level of Care Code Est Pt Level 4 (06777) Diagnoses Asthma-COPD overlap syndrome J44.89
[2024-05-26 14:25] VITALS: BP 130/82; PULSE 59; O2SAT 96; BMI 40.1
== END 2024-05-26 14:47 | disposition home or self-care (01) ==
PROVIDERS: PCP Internal Medicine; Visit Provider Nurse Practitioner Family
DX: J44.89 Other specified chronic obstructive pulmonary disease (principal)
CPT/HCPCS: 99214

== ENCOUNTER → 2024-05-26 14:22 | Outpatient (BNVA) | payer OTHER, SELFPAY | PROVIDERS: PCP Internal Medicine; Visit Provider Nurse Practitioner Family | DX: J44.89 Other specified chronic obstructive pulmonary disease (principal) | CPT/HCPCS: 99212 ==

== ENCOUNTER 2024-05-27 06:09 | Emergency (ER) | payer OTHER, SELFPAY ==
[2024-05-27 06:15] VITALS: BP 154/96; PULSE 62; O2SAT 98; BMI 39.5
[2024-05-27 06:19] VITALS: BP 164/67; PULSE 59; RESP 16; TEMP 36.6; O2SAT 100
[2024-05-27] MEDS: ondansetron HCL 4 MG/2 ML VIAL IVPUSH (06:32)
[2024-05-27] MEDS: Morphine Sulfate 4 MG/ML CARTRIDGE IVPUSH (06:32)
[2024-05-27 06:33] LABS: MANUAL DIFF FLAG NO
[2024-05-27 06:34] LABS: Basophils Absolute Auto 0.1 X10*3/uL (0.0-0.2); Basophils Percent Auto 0.3 % (0-2); Eosinophils Absolute Auto 0.3 X10*3/uL (0.0-0.4); Eosinophils Percent Auto 2.2 % (0-4); Hematocrit 36.3 % (37.0-47.0); Hemoglobin 11.7 g/dl (12.0-16.0); Imm Gran Abs Auto 0.08 X10*3/uL (0.00-0.03); Imm Gran Pct Auto 0.5 % (0.0-0.4); Lymphocytes Absolute Auto 1.5 X10*3/uL (1.2-4.9); Mean Corpuscular HGB Conc 32.2 g/dl (31.0-35.0); Mean Corpuscular Hemoglobin 27.5 pg (27.0-33.0); Mean Corpuscular Volume 85.4 fL (80.0-98.0); Mean Platelet Volume 10.3 fL (9.4-12.3); Monocytes Absolute Auto 1.1 X10*3/uL (0.1-1.2); Monocytes Percent Auto 7.2 % (2-11); Neutrophils Absolute Auto 12.2 x10*3/uL (2.0-8.3); Neutrophils Percent Auto 79.8 % (45-73); Platelet Count 290 X10*3/uL (160-400); Red Blood Count 4.25 X10*6/uL (4.20-5.50); Red Cell Distribution Width 13.6 % (11.0-16.0); White Blood Count 15.3 X10*3/uL (4.8-10.8)
[2024-05-27 06:37] LABS: Appearance Urine Clear; Color Urine Yellow; Glucose Urine UA Negative (Negative); Leukocyte Esterase Urine Negative (Negative); Nitrite Urine Negative (Negative); PH 6.5 (5.0-9.0); Urine Blood Negative (Negative); Urine Ketones Negative (Negative); Urine Protein Negative (Neg-Trace)
[2024-05-27 06:58] LABS: Alanine Aminotransferase 19 U/L (0-31); Albumin Level 4.1 g/dL (3.5-5.0); Alkaline Phosphatase 73 U/L (39-117); Anion Gap 10 (12-20); Aspartate Amino Transferase 18 U/L (5-31); Bilirubin Direct 0.1 mg/dL (0.0-0.5); Bilirubin Total 0.3 mg/dL (0.0-1.0); Blood Urea Nitrogen 9 mg/dL (9-16); Calcium 9.7 mg/dL (8.4-10.2); Carbon Dioxide 27 mmol/L (22-29); Chloride 110 mmol/L (96-108); Creatinine Clr Calc Pharmacy 117.3; Estimated Glomerular Filt Rate > 60; Glucose Random 118 mg/dL (60-115); Lipase 35 U/L (8-78); Magnesium 2.1 mg/dL (1.6-2.6); Potassium 4.6 mmol/L (3.3-5.1); Sodium 142 mmol/L (135-145); Total Protein 7.4 g/dL (6.5-8.0)
[2024-05-27 07:03] LABS: HCG Quantitative < 2 mIU/mL
[2024-05-27 07:11] LABS: Influenza A PCR NEGATIVE (Negative); Influenza B PCR NEGATIVE (Negative); Resp Syncy Virus RNA Qual PCR NEGATIVE (Negative); SARS COV2 PCR INHOUSE NEGATIVE (Negative)
[2024-05-27] MEDS: Metoclopramide HCl 10 MG/2 ML VIAL IVPUSH (07:37)
--- NOTE | 2024-05-27 07:42 | PC.NURSE ---
medication administered per provider order. pt refused benadryl administration at this time.
--- NOTE | 2024-05-27 07:50 | ED.NAVMDI ---
HPI - Nausea/Vomiting/Diarrhea General Chief complaint: Nausea/Vomiting/Diarrhea Stated complaint: NAUSEA VOMITTING Time Seen by Provider: 05/27/24 06:50 Source: patient and old records reviewed Mode of arrival: ambulatory Limitations: no limitations History of Present Illness ED Provider: MONICA KHALIL Narrative: 33 yo female with PMH of asthma-COPD overlap, biliary dyskinesia, cholecystectomy, bipolar, ADHD, anemia, GERD, depression, HTN, gastritis, migraines, HLD, PCOS here with c/o waking up with sweats, chills, n/v/d and RUQ pain - she notes she ate meat last night and this happens to her when she eats it. She denies hx of tick borne illness. She notes she has the same pattern when she eats meat. No recent tavel, procedures, abx use. She has hx of same in past MD elicited complaint: nausea, vomiting, diarrhea and abdominal pain Pertinent past history: other Onset (ago): minute(s) (30) Description of vomiting: watery Description of diarrhea: watery Associated nausea: Yes Associated abdominal pain: Yes Location of pain: RUQ Pain consistency: intermittent Severity: moderate Quality: cramping Exacerbating factors: eating Relieving factors: none Context: history of abdominal surgery and other (states this happens when she eats meat) Associated symptoms: fever/chills, loss of appetite, malaise and nausea/vomiting Related Data Home Medications ?Medication ?Instructions ?Recorded ?Confirmed sertraline 100 mg tablet 100 mg PO DAILY 08/22/20 04/03/24 acetaminophen 325 mg tablet 650 mg PO Q6H PRN Pain 12/29/23 04/03/24 (Tylenol) albuterol sulfate 90 mcg/actuation 2 inh inhalation Q6H PRN shortness 12/29/23 04/03/24 breath activated powder inhaler of breath or wheezing bupropion HCl 300 mg 24 hr tablet, 300 mg PO DAILY 12/29/23 04/03/24 extended release dexlansoprazole 60 mg 60 mg PO DAILY@0630 12/29/23 04/03/24 capsule,biphase delayed release (Dexilant) hydroxyzine HCl 25 mg tablet 25 mg PO DAILY anxiety 12/29/23 04/03/24 linaclotide 290 mcg capsule 290 mcg PO DAILY 12/29/23 04/03/24 (Linzess) usnqju-igiujfar-tdolsul 1 cap PO TIDWM 12/29/23 04/03/24 36,000-114,000-180,000 unit capsule,delay rel (Creon) lorazepam 1 mg tablet 1 mg PO DAILY PRN Anxiety 12/29/23 04/03/24 metoclopramide HCl 5 mg tablet 5 mg PO BID 12/29/23 04/03/24 (Reglan) Previous Rx's ?Medication ?Instructions ?Recorded lancets 28 gauge (FreeStyle #100 ea 06/27/20 Lancets) BEDSIDE COMMODE #1 ea 05/14/22 FRONT-WHEELED WALKER #1 ea 05/14/22 TUB SEAT with BACK #1 ea 05/14/22 gabapentin 400 mg capsule 400 mg PO TID 30 days #90 caps 10/17/22 nebulizers (Compact Compressor #1 ea 02/28/23 Nebulizer) pyridoxine (vitamin B6) 100 mg 100 mg PO DAILY 90 days #90 tabs 07/09/23 tablet labetalol 100 mg tablet 100 mg PO BID 90 days #180 tabs 09/16/23 ibuprofen 800 mg tablet (IBU) 800 mg PO Q8H PRN pain/headaches 03/04/24 30 days #90 tabs albuterol sulfate 2.5 mg/3 mL 2.5 mg (3 mL) inhalation Q6H PRN 03/17/24 (0.083 %) solution for nebulization Shortness Of Breath Or Wheezing #180 mL budesonide-formoterol HFA 160 2 puff inhalation Q12H #10.2 grams 03/17/24 mcg-4.5 mcg/actuation aerosol inhaler (Symbicort) montelukast 10 mg tablet 10 mg PO BEDTIME #30 tabs 04/08/24 (Singulair) hydrocortisone 1 % topical cream 1 appl topical QID PRN itching 05/21/24 #28.35 grams prednisone 20 mg tablet 40 mg (2 x 20 mg) PO DAILY #10 tabs 05/21/24 ondansetron 4 mg disintegrating 4 mg PO Q8H PRN nausea and 05/27/24 tablet vomiting #20 tabs Allergies Allergy/AdvReac Type Severity Reaction Status Date / Time amoxicillin [AMOXICILLIN] Allergy Intermediate NAUSEA & Verified 05/27/24 06:15 VOMITING, stomach pain, vomiting, stomach upset topiramate [From TOPAMAX] Allergy Intermediate TREMORS, Verified 05/27/24 06:15 nausea and vomiting latex [LATEX] Allergy Mild RASH Verified 05/27/24 06:15 medroxyprogesterone Allergy Mild RASH Verified 05/27/24 06:15 [From PROVERA] lactose Allergy bloating , Verified 05/27/24 06:15 diarrhea Review of Systems Review of Systems: Constitutional : No Weight loss, No Fever, No Chills ENT/Mouth : No sore throat, No Rhinorrhea Eyes: No Swelling, No Redness Cardiovascular : No Chest Pain, No SOB, NoEdema Respiratory : No Cough, No Sputum, No Wheezing Gastrointestinal : Positive Nausea, Positive Vomiting, positive Diarrhea, positive abdominal Pain, No Hematochezia, No Melena Genitourinary : No Dysuria, No Urinary Frequency, No Hematuria, No Urgency Musculoskeletal : No joint pain, No Myalgias, No Joint Swelling Skin : No Skin Lesions, No rash Neuro : No Weakness, No Numbness, No Dizziness, No Headache All other systems reviewed and are negative. Gastrointestinal: Gastrointestinal: Reports nausea PMFSH Past Medical History Attestation statement: The following information was validated with the patient. Source: old records reviewed Medical History Obesity (BMI 30-39.9) Anxiety Encounter for preoperative pulmonary examination Benign essential hypertension Gallstones Thoracic back pain Depression Tension headache Myofascial pain Sacroiliac joint pain Bilateral primary osteoarthritis of hip Post depression BMI 39.0-39.9,adult Trigger finger of left thumb Trigger finger of right thumb Insomnia Morbid obesity with BMI of 40.0-44.9, adult Smoker Annual physical exam Carpal tunnel syndrome, bilateral Personal history of gestational diabetes Supervision of other high risk , antepartum Supervision of other normal PCOS (polycystic ovarian syndrome) control counseling Migraines Vulvar cyst Anxiety Hyperlipemia Fibromyalgia Rheumatoid arthritis Surgical History S/P laparoscopic cholecystectomy (03/06/23) H/O tubal ligation History of hip replacement, total History of esophagogastroduodenoscopy (EGD) History of removal of cyst History of tonsillectomy and adenoidectomy Family History Family History Father Medical history unknown Mother Diabetes Hypertension Maternal Aunt Breast cancer Ovarian cancer Mental health disorder Maternal Grandmother Diabetes Hypertension Social History Social History Household Members: Significant Other and Children Housing: House Alcohol intake: current Alcohol intake frequency: holidays/special occasions only Patient Tobacco Use Status: Former Tobacco user Tobacco use type: Cigarette Smoked in Last 30 Days: No e-Cigarette/Vaping Use: Never Used Second Hand Smoke Exposure: No Use of substances other than those prescribed or required for medical reasons: Yes Substance Use Type: Marijuana Advance Directives: No Advance Directives Information Provided: Yes Do you have a plan to hurt others: No Plan Patient : No service: No Current occupational status: disabled Sexual orientation: Straight/Heterosexual Gender identity: Female Cognitive needs: No Hearing needs: No Vision needs: Yes Physical Exam Vital Signs: Vital Signs: Last Vital Signs Temp 97.8 F 05/27/24 06:19 Pulse 59 05/27/24 06:19 Resp 16 05/27/24 06:19 BP 164/67 H 05/27/24 06:19 Pulse Ox 100 05/27/24 06:19 O2 Del Method Room Air 05/27/24 06:19 BMI result Body Mass Index 39.5 Appearance: Alert. Oriented X3. No acute distress. Eyes: Pupils equal, round and reactive to light. ENT: Pharynx normal. Neck: Normal inspection. Neck supple. CVS: Normal heart rate and rhythm. Pulses normal. Respiratory: No respiratory distress. Breath sounds normal. Abdomen: Soft and mild RUQ pain no rebound or guarding Skin: Skin warm and dry. Normal skin color. Normal skin turgor. Extremities: No lower extremity edema. No calf ttp Neuro: Oriented X 3. No motor deficit. No sensory deficit. Medications Administered Discontinued Medications Generic Name Dose Route Start Last Admin Trade Name Freq PRN Reason Stop Dose Admin Diphenhydramine HCl 25 mg 05/27/24 07:23 05/27/24 07:40 Diphenhydramine Hcl 50 Mg/Ml Vial IVPUSH 05/27/24 07:24 Not Given ONCE ONE Metoclopramide HCl 10 mg 05/27/24 07:23 05/27/24 07:37 Metoclopramide Hcl 10 Mg/2 Ml Vial IVPUSH 05/27/24 07:24 10 mg ONCE ONE Administration Morphine Sulfate 4 mg 05/27/24 06:21 05/27/24 06:32 Morphine Sulfate 4 Mg/Ml Cartridge IVPUSH 05/27/24 06:22 4 mg ONCE ONE Administration Protocol Ondansetron HCl 4 mg 05/27/24 06:21 05/27/24 06:32 Ondansetron Hcl 4 Mg/2 Ml Vial IVPUSH 05/27/24 06:22 4 mg ONCE ONE Administration Medical Decision Making Medical Decision Making [facility] Narrative: 33 yo female with PMH of asthma-COPD overlap, biliary dyskinesia, cholecystectomy, bipolar, ADHD, anemia, GERD, depression, HTN, gastritis, migraines, HLD, PCOS here with c/o n/v/d and RUQ pain she has had this many times in the past with meat. Her RUQ pain doubt pathology unless LFTs abnormal as she is s/p cholecystectomy. She is not toxic appearing on exam and her abdomen is not acute. I suspect either related to food intake or viral. I have ordered labs, IV morphine for pain, nausea medications. Will order lyme panel given illness related to meat. Anticipate DC home Differential Diagnosis Differential Diagnoses: The differential diagnosis associated with the presentation includes food toxicity, meat aversion, viral syndrome Admission/Observation Consideration of admission/observation: Escalation of care including admission/observation considered feels much better tolerating PO stable for DC Lab Data [facility] Lab Attestation statement: I reviewed the patient's lab results. 05/27/24 06:29 05/27/24 06:29 Labs: Lab Results 05/27/24 Range/Units 06:29 WBC 15.3 H (4.8-10.8) X10*3/uL RBC 4.25 (4.20-5.50) X10*6/uL Hgb 11.7 L (12.0-16.0) g/dl Hct 36.3 L (37.0-47.0) % MCV 85.4 (80.0-98.0) fL MCH 27.5 (27.0-33.0) pg MCHC 32.2 (31.0-35.0) g/dl RDW 13.6 (11.0-16.0) % Plt Count 290 (160-400) X10*3/uL MPV 10.3 (9.4-12.3) fL Immature Gran % (Auto) 0.5 H (0.0-0.4) % Neut % (Auto) 79.8 H (45-73) % Lymph % (Auto) 10.0 L (20-40) % [place] % (Auto) 7.2 (2-11) % Eos % (Auto) 2.2 (0-4) % Baso % (Auto) 0.3 (0-2) % Lymph # (Auto) 1.5 (1.2-4.9) X10*3/uL [place] # (Auto) 1.1 (0.1-1.2) X10*3/uL Eos # (Auto) 0.3 (0.0-0.4) X10*3/uL Baso # (Auto) 0.1 (0.0-0.2) X10*3/uL Abs Immat Gran (auto) 0.08 H (0.00-0.03) X10*3/uL Absolute Neuts (auto) 12.2 H (2.0-8.3) x10*3/uL Absolute Nucleated RBC 0.000 (0.0-0.012) X10*3/uL Nucleated RBC % (auto) 0.0 (0.0-0.2) /100WBC Sodium 142 (135-145) mmol/L Potassium 4.6 (3.3-5.1) mmol/L Chloride 110 H (96-108) mmol/L Carbon Dioxide 27 (22-29) mmol/L Anion Gap 10 L (12-20) BUN 9 (9-16) mg/dL Creatinine 0.71 (0.5-1.4) mg/dL Estim Creat Clear Calc 117.3 Estimated GFR > 60 Random Glucose 118 H (60-115) mg/dL Calcium 9.7 D (8.4-10.2) mg/dL Magnesium 2.1 (1.6-2.6) mg/dL Total Bilirubin 0.3 (0.0-1.0) mg/dL Direct Bilirubin 0.1 (0.0-0.5) mg/dL AST 18 (5-31) U/L ALT 19 (0-31) U/L Alkaline Phosphatase 73 (39-117) U/L Total Protein 7.4 (6.5-8.0) g/dL Albumin 4.1 (3.5-5.0) g/dL Lipase 35 (8-78) U/L Beta HCG, Quant < 2 mIU/mL Urine Color Yellow Urine Appearance Clear Urine pH 6.5 (5.0-9.0) Ur Specific [place] 1.020 (1.005-1.025) Urine Protein Negative (Neg-Trace) mg/dL Urine Glucose (UA) Negative (Negative) mg/dL Urine Ketones Negative (Negative) mg/dL Urine Blood Negative (Negative) Urine Nitrite Negative (Negative) Ur Leukocyte Esterase Negative (Negative) Influenza Type A (PCR) NEGATIVE (Negative) Influenza Type B (PCR) NEGATIVE (Negative) RSV RNA Qual (PCR) NEGATIVE (Negative) SARS-CoV-2 RNA (RT-PCR) NEGATIVE (Negative) Independent Historian Clinical information obtained from an independent historian. History obtained from or confirmed by: Spouse and EMS External Record Review External record reviewed: Outpatient record Prescription Management I considered prescription management with: Other Discharge Plan Discharge Clinical Impression: Nausea vomiting and diarrhea, Abdominal pain Patient Disposition: Home, Self-Care Instructions: Acute Nausea and Vomiting (ED), Acute Diarrhea (ED) Additional Instructions: labs reassuring negative for flu covid rsv urine negative would rest today stay hydrated advance diet very slowly over 48 hours return for any worsening symptoms or concerns. Prescriptions: New ondansetron 4 mg tablet,disintegrating 4 mg PO Q8H PRN (Reason: nausea and vomiting) Qty: 20 0RF No Action (DME) FRONT-WHEELED WALKER See Rx Instructions .Route .MEDSUPPLY Qty: 1 0RF Rx Instructions: As directed (DME) TUB SEAT with BACK See Rx Instructions .Route .MEDSUPPLY Qty: 1 0RF Rx Instructions: As directed (DME) BEDSIDE COMMODE See Rx Instructions .Route .MEDSUPPLY Qty: 1 0RF Rx Instructions: As directed gabapentin 400 mg capsule 400 mg PO TID 30 Days Qty: 90 3RF Rx Instructions: 1 capsule Orally Three times a day labetalol 100 mg tablet 100 mg PO BID 90 Days Qty: 180 1RF ibuprofen [IBU] 800 mg tablet 800 mg PO Q8H PRN (Reason: pain/headaches) 30 Days Qty: 90 0RF Rx Instructions: Take with food metoclopramide HCl [Reglan] 5 mg tablet 5 mg PO BID hydroxyzine HCl 25 mg tablet 25 mg PO DAILY lorazepam 1 mg tablet 1 mg PO DAILY PRN (Reason: Anxiety) bupropion HCl 300 mg tablet extended release 24 hr 300 mg PO DAILY dexlansoprazole [Dexilant] 60 mg capsule,biphase delayed releas 60 mg PO DAILY@0630 Linzess 290 mcg capsule 290 mcg PO DAILY Creon 36,000-114,000- 180,000 unit capsule,delayed release(DR/EC) 1 cap PO TIDWM acetaminophen [Tylenol] 325 mg Tablet 650 mg PO Q6H PRN (Reason: Pain) albuterol sulfate 90 mcg/actuation aerosol powdr breath activated 2 inh inhalation Q6H PRN (Reason: shortness of breath or wheezing) prednisone 20 mg tablet 40 mg PO DAILY Qty: 10 0RF hydrocortisone 1 % cream 1 appl topical QID PRN (Reason: itching) Qty: 28.35 0RF sertraline 100 mg tablet 100 mg PO DAILY (DME) nebulizers [Compact Compressor Nebulizer] Misc See Rx Instructions .Route Qty: 1 0RF Rx Instructions: As directed (DME) lancets [FreeStyle Lancets] 28 gauge misc See Rx Instructions .ROUTE .MEDSUPPLY Qty: 100 1RF Rx Instructions: 4 times/day pyridoxine (vitamin B6) 100 mg tablet 100 mg PO DAILY 90 Days Qty: 90 1RF budesonide-formoterol [Symbicort] 160-4.5 mcg/actuation HFA aerosol inhaler 2 puff inhalation Q12H Qty: 10.2 3RF albuterol sulfate 2.5 mg /3 mL (0.083 %) solution for nebulization 2.5 mg inhalation Q6H PRN (Reason: Shortness Of Breath Or Wheezing) Qty: 180 3RF montelukast [Singulair] 10 mg tablet 10 mg PO BEDTIME Qty: 30 3RF Stand Alone Forms: Work/School Release Print Language: Welsh
[2024-05-27 08:21] VITALS: BP 132/76; PULSE 57; RESP 16; TEMP 36.6; O2SAT 97
[2024-05-28 14:47] LABS: Lyme Abs Screen <0.90 index
== END 2024-05-27 08:22 | disposition home or self-care (01) ==
PROVIDERS: Emergency Provider Emergency Medicine
DX: R11.2 Nausea with vomiting, unspecified (principal); R19.7 Diarrhea, unspecified; R10.11 Right upper quadrant pain; Z03.818 Encounter for observation for suspected exposure to other biological agents ruled out; I10 Essential (primary) hypertension; E78.5 Hyperlipidemia, unspecified; J45.909 Unspecified asthma, uncomplicated; Z87.891 Personal history of nicotine dependence; Z90.49 Acquired absence of other specified parts of digestive tract; Z98.51 Tubal ligation status; Z79.899 Other long term (current) drug therapy
CPT/HCPCS: 0241U; 36415; 80048; 80076; 81003; 83690; 83735; 84702; 85025; 86617; 86618; 96374; 96375; 99284; J1200; J2270; J2405; J2765

== ENCOUNTER 2024-06-02 10:11 | Outpatient (AMB) | payer OTHER, SELFPAY ==
--- NOTE | 2024-06-02 10:14 | A.OFFPC_ITS ---
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 Accompanied by: Self / Same As Patient Allergies amoxicillin [AMOXICILLIN] Allergy (Intermediate, Verified 06/02/24 10:29) NAUSEA & VOMITING, stomach pain, vomiting, stomach upset topiramate [From TOPAMAX] Allergy (Intermediate, Verified 06/02/24 10:29) TREMORS, nausea and vomiting latex [LATEX] Allergy (Mild, Verified 06/02/24 10:29) RASH medroxyprogesterone [From PROVERA] Allergy (Mild, Verified 06/02/24 10:29) RASH lactose Allergy (Verified 06/02/24 10:29) bloating , diarrhea Medication List - Last Reconciled 06/02/24 by Jarrod Sherman MD acetaminophen (Tylenol) 650 mg PO Q6H PRN albuterol sulfate 90 mcg/actuation 2 inhalations inhalation Q6H PRN albuterol sulfate 2.5 mg (3 mL) inhalation Q6H PRN [BEDSIDE COMMODE As directed] budesonide-formoterol 160-4.5 mcg/actuation (Symbicort) 2 puffs inhalation Q12H bupropion HCl XL 300 mg PO DAILY dexlansoprazole (Dexilant) 60 mg PO DAILY@0630 [FRONT-WHEELED WALKER As directed] gabapentin 400 mg PO TID 30 days hydrocortisone 1% 1 appl topical QID PRN hydroxyzine HCl 25 mg PO DAILY ibuprofen (IBU) 800 mg PO Q8H PRN 30 days labetalol 100 mg PO BID 90 days lancets (FreeStyle Lancets) 4 times/day linaclotide (Linzess) 290 mcg PO DAILY chpoty-xihtcxva-sxkmwpb 36,000-114,000- 180,000 unit (Creon) 1 cap PO TIDWM lorazepam 1 mg PO DAILY PRN metoclopramide HCl (Reglan) 5 mg PO BID montelukast (Singulair) 10 mg PO BEDTIME nebulizers (Compact Compressor Nebulizer) As directed ondansetron 4 mg PO Q8H PRN pyridoxine (vitamin B6) 100 mg PO DAILY 90 days sertraline 100 mg PO DAILY [TUB SEAT with BACK As directed] Tobacco use date assessed: 06/02/24 Dental Screening Dental Screen Date: 06/02/24 Did you have a dental visit in the last 12 months?: No Did you have a dental problem in the last 6 months where you did not have access to dental care?: No Was dental information given to patient?: Patient has dentist HPI Pain/Swelling/numbness on fingers HPI Details Patient comes in today complaining of pain and on and off numbness over her right middle and ring fingers States that his symptoms have been present for a while now but they have gotten progressively worse over the past month She denies any recent injury or trauma to her right hand or fingers but relates (+) Hx of carpal tunnel syndrome and reports (+) bilateral hand pain often Reports (+) Hx of fibromyalgia as well and recalls that her symptoms were a lot worse when she was about a year ago She adds that she has an issue with the big toenail on her right foot lately - notes (+) increased pain over the edges of the toenail and thinks that he may have some infection on his toe or toenail She denies any fever, headaches or dizziness Denies any chest pains, no increased shortness of breath No nausea/vomiting, no abdominal pain No change in bowel habits noted [facility] Medical History (Updated 06/07/24 @ 21:42 by Jarrod Sherman MD) Bilateral primary osteoarthritis of hip Obesity (BMI 30-39.9) Anxiety Encounter for preoperative pulmonary examination Benign essential hypertension Gallstones Thoracic back pain Depression Tension headache Myofascial pain Sacroiliac joint pain Post depression BMI 39.0-39.9,adult Trigger finger of left thumb Trigger finger of right thumb Insomnia Morbid obesity with BMI of 40.0-44.9, adult Smoker Annual physical exam Carpal tunnel syndrome, bilateral Personal history of gestational diabetes Supervision of other high risk , antepartum Supervision of other normal PCOS (polycystic ovarian syndrome) control counseling Migraines Vulvar cyst Anxiety Hyperlipemia Fibromyalgia Rheumatoid arthritis Surgical History S/P laparoscopic cholecystectomy (03/06/23) H/O tubal ligation History of hip replacement, total History of esophagogastroduodenoscopy (EGD) History of removal of cyst History of tonsillectomy and adenoidectomy Family History Father Medical history unknown Mother Diabetes Hypertension Maternal Aunt Breast cancer Ovarian cancer Mental health disorder Maternal Grandmother Diabetes Hypertension Social History Household Members: Significant Other and Children Housing: House Alcohol intake: current Alcohol intake frequency: holidays/special occasions only Patient Tobacco Use Status: Former Tobacco user Tobacco use type: Cigarette e-Cigarette/Vaping Use: Never Used Second Hand Smoke Exposure: No Substance Use Type: Marijuana service: No Current occupational status: disabled Sexual orientation: Straight/Heterosexual Gender identity: Female Cognitive needs: No Hearing needs: No Vision needs: Yes Female Reproductive History Menstrual Age of Menarche: 8 Questionnaire PHQ-9 Over the last 2 weeks, how often have you been bothered by any of the following problems? 1. Little interest or pleasure in doing things: several days 2. Feeling down, depressed, or hopeless: several days 3. Trouble falling or staying asleep, or sleeping too much: several days 4. Feeling tired or having little energy: several days 5. Poor appetite or overeating: several days 6. Feeling bad about yourself - or that you are a failure or have let yourself or your family down: several days 7. Trouble concentrating on things, such as reading the newspaper or watching television: several days 8. Moving or speaking so slowly that other people could have noticed. Or the opposite - being so fidgety or restless that you have been moving around a lot more than usual: not at all 9. Thoughts that you would be better off or of hurting yourself in some way: not at all Total score: 7 Depression Screening Interpretation: Positive Depression Screening Follow-up: Existing condition and In treatment Depression Screening Done: Yes 46096 - PHQ-9 Billing: Yes Source: Developed by Drs. Cuco Richards, Itzel Ordaz, Eliud Ladd and colleagues, with an educational lino from [employer]. Thrive Questionnaire Date Thrive assessed: 06/02/24 I am a: Patient What is your living situation today?: I have a steady place to live Within the past 12 months, did the food you bought not last and you didn't have the money to get more?: Never true Within the past 12 months, did you worry whether your food would run out before you got money to buy more?: Never true Do you have trouble paying for medicines?: No Do you have trouble getting transportation to medical appointments?: No Do you have trouble paying your heating and electricity bill?: No Do you have trouble taking care of your child, family member or friend?: No Do you have trouble with day-to-day activities such as bathing, preparing meals, shopping, managing finances, etc.?: No Are you currently unemployed and looking for a job?: No Are you interested in more education?: No Please select the resources that you would like help with: None Currently or been in a relationship where the following occur: No concerns reported THRIVE Score: 0 AUDIT C Alcohol Use Questionnaire (AUDIT-C) 1. How often do you have a drink containing alcohol?: Never 3. How often do you have six or more drinks on one occasion?: Never Total Score: 0 Score Reviewed/Action Taken: Yes STEPHANIE-7 AMB Questionnaire STEPHANIE-7 Date STEPHANIE - 7 assessed: 06/02/24 Feeling nervous, anxious, or on edge: 0 = Not at all Not being able to stop or control worryin = Not at all Worrying too much about different things: 0 = Not at all Trouble relaxin = Not at all Being so restless that it is hard to sit still: 0 = Not at all Becoming easily annoyed or irritable: 0 = Not at all Feeling afraid as if something awful might happen: 0 = Not at all Total STEPHANIE-7 score (0-4 normal; 5-9 mild; 10-14 moderate; 15-21 severe): 0 Source: Developed by Drs. Cuco Richards, Itzel Ordaz, Eliud Ladd and colleagues, with an educational lino from [employer]. Review of Systems Const Denies chills, Reports fatigue, Denies fever(s) and Denies headache(s) ENT Denies dysphagia, Denies dizziness, Denies otalgia, Denies headache(s), Denies neck pain, Denies odynophagia and Denies sore throat Card Denies chest pain, Denies rapid heart rate, Denies irregular heart rhythm, Denie s palpitations and Denies dyspnea Resp Denies chest congestion, Denies cough and Denies dyspnea GI Denies abdominal pain, Denies constipation, Denies dysphagia, Denies heartburn, Denies diarrhea, Denies nausea, Denies odynophagia and Denies vomiting Denies hematuria, Denies urinary frequency, Denies dysuria and Denies urinary urgency Musc Details: (+) pain in both hands Reports back pain (on and off, over the lower back), Reports arthralgias (over the left hip - chronic), Denies neck pain, Reports numbness (on and off in the right middle and ring fingers) and Reports tingling (on and off in the right middle and ring fingers) Skin/Breast Details: (+) pain over the edges of the right big toenail Denies rash Neuro Denies dizziness, Denies headache(s), Reports numbness (on and off in the right middle and ring fingers), Reports tingling (on and off in the right middle and ring fingers) and Denies paresthesias Psych Denies anxiety and Denies depression Endo Reports fatigue and Denies palpitations Teddy/Lymph Denies easy bruising Physical exam (Primary Care) Vital Signs: Last Vital Signs Pulse 64 06/02/24 10:15 BP 112/80 06/02/24 10:15 Pulse Ox 99 06/02/24 10:15 Oxygen Delivery Method Room Air 06/02/24 10:15 BMI result Body Mass Index 39.0 Tobacco/Smoking Status: Tobacco use Status Tobacco use date assessed 06/02/24 06/02/24 10:20 Patient Tobacco Use Status Former Tobacco user 06/02/24 10:20 Tobacco use type Cigarette 06/02/24 10:20 e-Cigarette/Vaping Use Never Used 06/02/24 10:20 PHQ-9: PHQ-9 Score PHQ-9: Total score 7 06/02/24 10:39 Depression Screening Interpretation: Positive Depression Screening Follow-up: Existing condition and In treatment Thrive Assessment: Date of Thrive Assessment Date Thrive assessed 06/02/24 06/02/24 10:20 Currently or been in a relationship where the following occur: No concerns reported Const General: no acute distress and alert HENMT Ears: TM's normal bilaterally and EAC's normal Throat: Yes posterior oropharynx normal and Yes tonsils normal (no TP congestion) Neck Neck: Yes no lymphadenopathy and Yes supple Thyroid: Thyroid normal Resp Auscultation: clear to auscultation bilaterally, no rales and no wheezes Cardio Rate: regular rate Rhythm: regular rhythm Heart sounds: no murmurs GI Palpation (GI): Soft to palpation and nontender Auscultation: normal bowel sounds General: Yes no CVA tenderness Back/Spine/Pelvis Back: no CVA tenderness Thoracic/Lumbar Spine: lumbar spinal tenderness (mild) Skin Rashes: no rashes Extrem General: Yes no clubbing, cyanosis or edema Right lower extremity: foot ((+) ingrown nail on both sides of the right big toe - tender on palpation) Coding Level of Care Code Est Pt Level 4 (73316) Diagnoses Bilateral hand pain M79.641; M79.642 Numbness and tingling in right hand R20.0; R20.2 Ingrown toenail of right foot L60.0 Benign essential hypertension I10 Asthma-COPD overlap syndrome J44.89 Elevated LFTs R79.89 Bilateral primary osteoarthritis of hip M16.0 Gastroesophageal reflux disease without esophagitis K21.9 Esophagitis presence: without esophagitis Anemia, unspecified type D64.9 Anemia type: unspecified type Migraine without status migrainosus, not intractable, unspecified migraine type G43.909 Migraine type: unspecified Status migrainosus presence: without status migrainosus Intractability: not intractable Fibromyalgia M79.7 Insomnia, unspecified type G47.00 Insomnia type: unspecified Anxiety F41.9 Episode of recurrent major depressive disorder, unspecified depression episode severity F33.9 Depression Type: major depressive disorder Major depression recurrence: recurrent Active/Remission status: currently active Major depression episode severity: unspecified Obesity (BMI 30-39.9) E66.9 Additional Codes PHQ-9 - 69813 - PHQ-9 Billing: Yes ([id number]) Assessment & Plan Assessment & Plan (1) Bilateral hand pain: Code(s): M79.641 - Pain in right hand; M79.642 - Pain in left hand Category: Medical Plan: Will send patient for x-rays of both hands for further evaluation Have advised patient that her symptoms are suggestive of a median nerve neuropathy If her x-rays are unrevealing and patient's symptoms persist, we will consider referring her for EMG and NCV of the right upper extremity for further evaluation (2) Numbness and tingling in right hand: Code(s): R20.0 - Anesthesia of skin; R20.2 - Paresthesia of skin Category: Medical Plan: Have advised patient that her symptoms are suggestive of a median nerve neuropathy If her x-rays are unrevealing and patient's symptoms persist, we will consider referring her for EMG and NCV of the right upper extremity for further evaluation Will send patient for some labs EFRAIN for further evaluation (3) Ingrown toenail of right foot: Code(s): L60.0 - Ingrowing nail Category: Medical Plan: Will start patient empirically on oral cephalexin 500 mg Q 8 hours x 7 days for the cellulitis/infection on her toe Will refer her as well to podiatry for further evaluation and management (4) Benign essential hypertension: Code(s): I10 - Essential (primary) hypertension Category: Medical Plan: Reinforced low-sodium diet - goal is systolic BP of 120 mm or less Continue Labetalol 100 mg BID She also used to take Amlodipine 5 mg QD and Spironolactone 50 mg BID but apparently stopped taking these sometime in the past couple of years or so - patient herself does not remember exactly when or why she is no longer on these meds (5) Asthma-COPD overlap syndrome: Code(s): J44.89 - Other specified chronic obstructive pulmonary disease Category: Medical Plan: Stable lately Continue Symbicort 160-4.5 mcg 2 inhalations BID and Albuterol HFA 2 inhalations Q 6 hours PRN (6) Elevated LFTs: Code(s): R79.89 - Other specified abnormal findings of blood chemistry Category: Medical Plan: Her LFTs (especially her ALT) were previously elevated back in May 2023 but have returned back to normal since They were likely due to hepatosteatosis, as confirmed on her abdominal US done back in June 2023 Will continue to monitor her LFTs regularly (7) Bilateral primary osteoarthritis of hip: Code(s): M16.0 - Bilateral primary osteoarthritis of hip Category: Medical Plan: S/P right hip arthroplasty last year in July 2022 - states that her right hip has been doing well since her surgery She also underwent total left hip arthroplastly with [facility] a few months ago on 10/24/2023 - states that her surgery and recovery went well and she now has hardly any significant issues with her hips Follow up with orthopedics as scheduled (8) GERD (gastroesophageal reflux disease): Code(s): K21.9 - Gastro-esophageal reflux disease without esophagitis Category: Medical Qualifiers: Esophagitis presence: without esophagitis Qualified Code(s): K21.9 - Gastro-esophageal reflux disease without esophagitis Plan: Dietary restrictions reinforced Continue Dexlansoprazole 60 mg QD (9) Anemia: Code(s): D64.9 - Anemia, unspecified Category: Medical Qualifiers: Anemia type: unspecified type Qualified Code(s): D64.9 - Anemia, unspecified Plan: Continue IV Iron infusions PRN Follow up with hematology as scheduled Will recheck CBC and iron studies EFRAIN for follow up (10) Migraines: Comment: reviewed med use, food triggers and what to avoid Code(s): G43.909 - Migraine, unspecified, not intractable, without status migrainosus Category: Medical Qualifiers: Migraine type: unspecified Status migrainosus presence: without status migrainosus Intractability: not intractable Qualified Code(s): G43.909 - Migraine, unspecified, not intractable, without status migrainosus Plan: Continue Acetaminophen 325 mg every 4 to 6 hours as needed Reinforced avoidance of migraine triggers Will need to consider prophylactic Tx again if her headaches persist or get worse (11) Fibromyalgia: Code(s): M79.7 - Fibromyalgia Category: Medical Plan: Patient is encouraged again on regular exercise and physical activity to help manage her fibromyalgia symptoms Continue Gabapentin 400 mg TID (12) Insomnia: Code(s): G47.00 - Insomnia, unspecified Category: Medical Qualifiers: Insomnia type: unspecified Qualified Code(s): G47.00 - Insomnia, unspecified Plan: Sleep hygiene reinforced Continue OTC Unisom 25 mg Q HS PRN (13) Anxiety: Code(s): F41.9 - Anxiety disorder, unspecified Category: Medical Plan: She is on Bupropion and Sertraline; continue Hydroxyzine 25 mg 1 to 2 tablets TID PRN (14) Depression: Code(s): F32.A - Depression, unspecified Category: Medical Qualifiers: Depression Type: major depressive disorder Major depression recurrence: recurrent Active/Remission status: currently active Major depression episode severity: unspecified Qualified Code(s): F33.9 - Major depressive disorder, recurrent, unspecified Plan: Continue Sertraline 100 mg QD and Bupropion XL 300 mg Q AM Follow up with psychiatry as scheduled (15) Obesity (BMI 30-39.9): Code(s): E66.9 - Obesity, unspecified Category: Medical Plan: Reinforced diet/exercise as tolerated/lose weight Plan Follow up as scheduled next month Orders: Orders XR hand RT min 3V 06/02/24 M79.641 - Pain in right hand, M79.642 - Pain in left hand, R20.0 - Anesthesia of skin, R20.2 - Paresthesia of skin Complete Blood Count Auto Diff 06/02/24 M79.641 - Pain in right hand, M79.642 - Pain in left hand, R20.0 - Anesthesia of skin, R20.2 - Paresthesia of skin Erythrocyte Sedimentation Rate 06/02/24 M79.641 - Pain in right hand, M79.642 - Pain in left hand, R20.0 - Anesthesia of skin, R20.2 - Paresthesia of skin XR hand LT min 3V 06/02/24 M79.641 - Pain in right hand, M79.642 - Pain in left hand, R20.0 - Anesthesia of skin, R20.2 - Paresthesia of skin Comprehensive Met. Panel 06/02/24 M79.641 - Pain in right hand, M79.642 - Pain in left hand, R20.0 - Anesthesia of skin, R20.2 - Paresthesia of skin Magnesium 06/02/24 E83.42 - Hypomagnesemia, M79.641 - Pain in right hand, M79.642 - Pain in left hand, R20.0 - Anesthesia of skin, R20.2 - Paresthesia of skin TSH reflex Free T4 06/02/24 M79.641 - Pain in right hand, M79.642 - Pain in left hand, R20.0 - Anesthesia of skin, R20.2 - Paresthesia of skin C Reactive Protein 06/02/24 M79.641 - Pain in right hand, M79.642 - Pain in left hand, R20.0 - Anesthesia of skin, R20.2 - Paresthesia of skin Referrals Podiatry Referral L60.0 - Ingrowing nail Medications: New cephalexin 500 mg PO Q8H 7 days 21 caps 0RF
[2024-06-02 10:15] VITALS: BP 112/80; PULSE 64; O2SAT 99; BMI 39.0
== END 2024-06-02 10:39 | disposition home or self-care (01) ==
PROVIDERS: Visit Provider Internal Medicine
DX: M79.641 Pain in right hand (principal); M79.642 Pain in left hand; F33.9 Major depressive disorder, recurrent, unspecified; J44.89 Other specified chronic obstructive pulmonary disease; R20.0 Anesthesia of skin; R20.2 Paresthesia of skin; L60.0 Ingrowing nail; I10 Essential (primary) hypertension; R79.89 Other specified abnormal findings of blood chemistry; M16.0 Bilateral primary osteoarthritis of hip; K21.9 Gastro-esophageal reflux disease without esophagitis; D64.9 Anemia, unspecified

== ENCOUNTER 2024-06-02 10:11 | Outpatient (REF) | payer OTHER, SELFPAY ==
--- NOTE | ~2024-06-02 | XR_ITS ---
EXAMINATION: XR HAND 3 OR MORE VIEWS LEFT, XR HAND 3 OR MORE VIEWS RIGHT HISTORY: M79.641 - Pain in right hand COMPARISON: There are no prior studies available for comparison. FINDINGS: Six views of the bilateral hands are submitted. Osseous mineralization is normal. There is a tiny osseous density adjacent to the MCP joint of the 5th finger on the left. There is no fracture or dislocation on the right. The joints of the hand are preserved. The bones of the proximal carpal row of each hand are hypoplastic. There is widening of the scapholunate joints bilaterally with proximal migration of the capitate. These findings are symmetric. The soft tissues are unremarkable. XR/XR hand RT min 3V IMPRESSION: 1. Tiny osseous density adjacent to the left 5th MCP joint which could represent a fracture fragment. Clinical correlation is recommended. No evidence of fracture of the right hand. 2. Hypoplastic proximal carpal bones bilaterally. There is widening of the scapholunate joints bilaterally which could represent old ligamentous injury. Electronically signed by: Cuco Tong MD 06/25/2024 01:12 PM L[facility]
--- NOTE | ~2024-06-02 | XR_ITS ---
EXAMINATION: XR HAND 3 OR MORE VIEWS LEFT, XR HAND 3 OR MORE VIEWS RIGHT HISTORY: M79.641 - Pain in right hand COMPARISON: There are no prior studies available for comparison. FINDINGS: Six views of the bilateral hands are submitted. Osseous mineralization is normal. There is a tiny osseous density adjacent to the MCP joint of the 5th finger on the left. There is no fracture or dislocation on the right. The joints of the hand are preserved. The bones of the proximal carpal row of each hand are hypoplastic. There is widening of the scapholunate joints bilaterally with proximal migration of the capitate. These findings are symmetric. The soft tissues are unremarkable. XR/XR hand LT min 3V IMPRESSION: 1. Tiny osseous density adjacent to the left 5th MCP joint which could represent a fracture fragment. Clinical correlation is recommended. No evidence of fracture of the right hand. 2. Hypoplastic proximal carpal bones bilaterally. There is widening of the scapholunate joints bilaterally which could represent old ligamentous injury. Electronically signed by: Cuco Tong MD 06/25/2024 01:12 PM [facility]
[2024-06-02 11:02] LABS: MANUAL DIFF FLAG NO
[2024-06-02 12:03] LABS: Basophils Absolute Auto 0.1 X10*3/uL (0.0-0.2); Basophils Percent Auto 0.8 % (0-2); Eosinophils Absolute Auto 0.4 X10*3/uL (0.0-0.4); Eosinophils Percent Auto 5.8 % (0-4); Hematocrit 34.5 % (37.0-47.0); Imm Gran Abs Auto 0.02 X10*3/uL (0.00-0.03); Imm Gran Pct Auto 0.3 % (0.0-0.4); Mean Corpuscular HGB Conc 31.9 g/dl (31.0-35.0); Mean Corpuscular Hemoglobin 27.1 pg (27.0-33.0); Mean Platelet Volume 11.3 fL (9.4-12.3); Monocytes Absolute Auto 0.7 X10*3/uL (0.1-1.2); Monocytes Percent Auto 9.9 % (2-11); Neutrophils Absolute Auto 3.4 x10*3/uL (2.0-8.3); Neutrophils Percent Auto 52.2 % (45-73); Platelet Count 264 X10*3/uL (160-400); Red Blood Count 4.06 X10*6/uL (4.20-5.50); Red Cell Distribution Width 13.6 % (11.0-16.0); White Blood Count 6.6 X10*3/uL (4.8-10.8)
[2024-06-02 12:41] LABS: Alanine Aminotransferase 15 U/L (0-31); Albumin Level 4.1 g/dL (3.5-5.0); Alkaline Phosphatase 67 U/L (39-117); Anion Gap 9 (12-20); Aspartate Amino Transferase 18 U/L (5-31); Bilirubin Total 0.4 mg/dL (0.0-1.0); Blood Urea Nitrogen 8 mg/dL (9-16); C Reactive Protein 0.16 mg/dL (< or = 0.50); Calcium 8.9 mg/dL (8.4-10.2); Carbon Dioxide 23 mmol/L (22-29); Chloride 110 mmol/L (96-108); Estimated Glomerular Filt Rate > 60; Glucose Random 107 mg/dL (60-115); Potassium 3.8 mmol/L (3.3-5.1); Sodium 138 mmol/L (135-145); Total Protein 7.3 g/dL (6.5-8.0)
[2024-06-02 12:44] LABS: Erythrocyte Sedimentation Rate 30 MM/HR (0-20)
[2024-06-02 12:58] LABS: TSH reflex Free T4 0.85 uIU/mL (0.32-4.0)
== END 2024-06-02 10:12 | disposition home or self-care (01) ==
LOC: HO.XRAY 10:11
PROVIDERS: PCP Internal Medicine; Visit Provider Internal Medicine
DX: M79.641 Pain in right hand (principal); M79.642 Pain in left hand; R20.0 Anesthesia of skin; R20.2 Paresthesia of skin; L60.0 Ingrowing nail; I10 Essential (primary) hypertension; J44.89 Other specified chronic obstructive pulmonary disease; R79.89 Other specified abnormal findings of blood chemistry; K21.9 Gastro-esophageal reflux disease without esophagitis; D64.9 Anemia, unspecified; G43.909 Migraine, unspecified, not intractable, without status migrainosus; M79.7 Fibromyalgia; G47.00 Insomnia, unspecified; F41.9 Anxiety disorder, unspecified; F33.9 Major depressive disorder, recurrent, unspecified; E66.9 Obesity, unspecified; Z79.899 Other long term (current) drug therapy; Z96.643 Presence of artificial hip joint, bilateral; E83.42 Hypomagnesemia
CPT/HCPCS: 36415; 73130; 80053; 83735; 84443; 85025; 85652; 86140; 96127; 99212

== ENCOUNTER → 2024-06-02 11:03 | Outpatient (BNV) | payer OTHER, SELFPAY | PROVIDERS: PCP Internal Medicine; Visit Provider Radiology Diagnostic Radiology | DX: M85.842 Other specified disorders of bone density and structure, left hand (principal); M79.641 Pain in right hand | CPT/HCPCS: 73130 ==

== ENCOUNTER 2024-06-25 10:37 | Outpatient (AMB) | payer OTHER, SELFPAY ==
[2024-06-25 13:03] VITALS: BP 120/70; PULSE 70; O2SAT 100
--- NOTE | 2024-06-25 13:03 | MHC.OFFVIS ---
Vital Signs 06/25/24 13:03 BP 120/70 Blood Pressure Location Lt brachial Position Sitting Pulse 70 Pulse Source Pulse Oximeter Pulse Oximetry (%) 100 Oxygen Delivery Method Room Air Intake Visit Reasons: Dupixent Teaching Allergies amoxicillin [AMOXICILLIN] Allergy (Intermediate, Verified 06/25/24 13:03) NAUSEA & VOMITING, stomach pain, vomiting, stomach upset topiramate [From TOPAMAX] Allergy (Intermediate, Verified 06/25/24 13:03) TREMORS, nausea and vomiting latex [LATEX] Allergy (Mild, Verified 06/25/24 13:03) RASH medroxyprogesterone [From PROVERA] Allergy (Mild, Verified 06/25/24 13:03) RASH lactose Allergy (Verified 06/25/24 13:03) bloating , diarrhea Medication List - Last Reconciled 06/25/24 by Poly Cordova LPN acetaminophen (Tylenol) 650 mg PO Q6H PRN albuterol sulfate 90 mcg/actuation 2 inhalations inhalation Q6H PRN albuterol sulfate 2.5 mg (3 mL) inhalation Q6H PRN [BEDSIDE COMMODE As directed] budesonide-formoterol 160-4.5 mcg/actuation (Symbicort) 2 puffs inhalation Q12H bupropion HCl XL 300 mg PO DAILY cephalexin 500 mg PO Q8H 7 days dexlansoprazole (Dexilant) 60 mg PO DAILY@0630 dupilumab (Dupixent) 600 mg (4 mL) subcut ONCE dupilumab (Dupixent) 300 mg (2 mL) subcut Q2W [FRONT-WHEELED WALKER As directed] gabapentin 400 mg PO TID 30 days hydrocortisone 1% 1 appl topical QID PRN hydroxyzine HCl 25 mg PO DAILY ibuprofen (IBU) 800 mg PO Q8H PRN 30 days labetalol 100 mg PO BID 90 days lancets (FreeStyle Lancets) 4 times/day linaclotide (Linzess) 290 mcg PO DAILY vqlird-iqzzdiks-dpjmjex 36,000-114,000- 180,000 unit (Creon) 1 cap PO TIDWM lorazepam 1 mg PO DAILY PRN metoclopramide HCl (Reglan) 5 mg PO BID montelukast (Singulair) 10 mg PO BEDTIME nebulizers (Compact Compressor Nebulizer) As directed ondansetron 4 mg PO Q8H PRN pyridoxine (vitamin B6) 100 mg PO DAILY 90 days sertraline 100 mg PO DAILY [TUB SEAT with BACK As directed] HPI HPI Dupixent Teaching: Details: Gabriella is here for a Dupixent teach she was educated on hand washing, injection preparation, administration, and disposal.?Gabriella was able to return demonstrate proper technique for hand washing, injection preparation, administration and disposal of needle and states she has no questions at this time. Medication Dupixent 300mg/2mL pre-filled pen (patient?s own meds) Loading dose of 600mg given by the patient in 2 SQ injections; injection #1 R abdomen ;? injection #2 L abdomen? Lot# [id number] expires 01/14/2026. Patient aware her next injection is in 15 days. Nurse visit only.? [facility] Medical History (Updated 06/07/24 @ 21:42 by Jarrod Sherman MD) Bilateral primary osteoarthritis of hip Obesity (BMI 30-39.9) Anxiety Encounter for preoperative pulmonary examination Benign essential hypertension Gallstones Thoracic back pain Depression Tension headache Myofascial pain Sacroiliac joint pain Post depression BMI 39.0-39.9,adult Trigger finger of left thumb Trigger finger of right thumb Insomnia Morbid obesity with BMI of 40.0-44.9, adult Smoker Annual physical exam Carpal tunnel syndrome, bilateral Personal history of gestational diabetes Supervision of other high risk , antepartum Supervision of other normal PCOS (polycystic ovarian syndrome) control counseling Migraines Vulvar cyst Anxiety Hyperlipemia Fibromyalgia Rheumatoid arthritis Surgical History S/P laparoscopic cholecystectomy (03/06/23) H/O tubal ligation History of hip replacement, total History of esophagogastroduodenoscopy (EGD) History of removal of cyst History of tonsillectomy and adenoidectomy Family History Father Medical history unknown Mother Diabetes Hypertension Maternal Aunt Breast cancer Ovarian cancer Mental health disorder Maternal Grandmother Diabetes Hypertension Social History Household Members: Significant Other and Children Housing: House Alcohol intake: current Alcohol intake frequency: holidays/special occasions only Patient Tobacco Use Status: Former Tobacco user Tobacco use type: Cigarette e-Cigarette/Vaping Use: Never Used Second Hand Smoke Exposure: No Substance Use Type: Marijuana service: No Current occupational status: disabled Sexual orientation: Straight/Heterosexual Gender identity: Female Cognitive needs: No Hearing needs: No Vision needs: Yes Female Reproductive History Menstrual Age of Menarche: 8 Physical Exam Vital Signs: Last Vital Signs Pulse 70 06/25/24 13:03 BP 120/70 06/25/24 13:03 Pulse Ox 100 06/25/24 13:03 Oxygen Delivery Method Room Air 06/25/24 13:03 Assessment & Plan Assessment & Plan (1) Asthma-COPD overlap syndrome: Code(s): J44.89 - Other specified chronic obstructive pulmonary disease Category: Medical Plan nurse visit for biologic teaching Coding Level of Care Code Established Pt Est Pt Level 1 (74528) Patient Type Established Diagnoses Asthma-COPD overlap syndrome J44.89 Comment NURSE VISIT ONLY
== END 2024-06-25 11:33 | disposition home or self-care (01) ==
PROVIDERS: Visit Provider Nurse Practitioner Family
DX: J44.89 Other specified chronic obstructive pulmonary disease (principal)

== ENCOUNTER → 2024-06-25 10:37 | Outpatient (BNVA) | payer OTHER, SELFPAY | PROVIDERS: Visit Provider Nurse Practitioner Family | DX: J44.89 Other specified chronic obstructive pulmonary disease (principal) | CPT/HCPCS: 99211 ==

== ENCOUNTER 2024-07-07 09:58 | Outpatient (AMB) | payer OTHER, SELFPAY ==
[2024-07-07 10:04] VITALS: BP 116/78; PULSE 76; O2SAT 99; BMI 38.0
--- NOTE | 2024-07-07 10:04 | A.OFFPC_ITS ---
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: No Accompanied by: Self / Same As Patient Allergies amoxicillin [AMOXICILLIN] Allergy (Intermediate, Verified 07/07/24 10:30) NAUSEA & VOMITING, stomach pain, vomiting, stomach upset topiramate [From TOPAMAX] Allergy (Intermediate, Verified 07/07/24 10:30) TREMORS, nausea and vomiting latex [LATEX] Allergy (Mild, Verified 07/07/24 10:30) RASH medroxyprogesterone [From PROVERA] Allergy (Mild, Verified 07/07/24 10:30) RASH lactose Allergy (Verified 07/07/24 10:30) bloating , diarrhea Medication List - Last Reconciled 07/07/24 by Jarrod Sherman MD acetaminophen (Tylenol) 650 mg PO Q6H PRN albuterol sulfate 90 mcg/actuation 2 inhalations inhalation Q6H PRN albuterol sulfate 2.5 mg (3 mL) inhalation Q6H PRN [BEDSIDE COMMODE As directed] budesonide-formoterol 160-4.5 mcg/actuation (Symbicort) 2 puffs inhalation Q12H bupropion HCl XL 300 mg PO DAILY dexlansoprazole (Dexilant) 60 mg PO DAILY@0630 dupilumab (Dupixent) 600 mg (4 mL) subcut ONCE dupilumab (Dupixent) 300 mg (2 mL) subcut Q2W [FRONT-WHEELED WALKER As directed] gabapentin 400 mg PO TID 30 days hydrocortisone 1% 1 appl topical QID PRN hydroxyzine HCl 25 mg PO DAILY ibuprofen (IBU) 800 mg PO Q8H PRN 30 days labetalol 100 mg PO BID 90 days lancets (FreeStyle Lancets) 4 times/day linaclotide (Linzess) 290 mcg PO DAILY gwquwd-qkkdevda-khhodlb 36,000-114,000- 180,000 unit (Creon) 1 cap PO TIDWM lorazepam 1 mg PO DAILY PRN metoclopramide HCl (Reglan) 5 mg PO BID montelukast (Singulair) 10 mg PO BEDTIME nebulizers (Compact Compressor Nebulizer) As directed ondansetron 4 mg PO Q8H PRN pyridoxine (vitamin B6) 100 mg PO DAILY 90 days sertraline 100 mg PO DAILY [TUB SEAT with BACK As directed] Tobacco use date assessed: 07/07/24 Dental Screening Dental Screen Date: 07/07/24 HPI 4mth f/u - see comments HPI Details Patient comes in today complaining of increased chest congestion and tightness as well as recurrent cough, congestion and mild sore throat for the past 3 days States that she tested herself for COVID at home yesterday and her test came out negative States that she has been using her nebulizer yiqxo-qcu-prbbn at home lately, with temporary relief of her symptoms She also continues to use her Symbicort inhaler BID regularly She feels that her symptoms have been getting worse lately and she is concerned now that she might have pneumonia as she reports (+) ACEVEDO and chest tightness and occasional wheezing She apparently had to stop her Dupixent injections recently because she is sick Relates (+) headaches at times but denies any fever or dizziness Denies any chest pains No nausea/vomiting, no abdominal pain No change in bowel habits noted She had her follow-up labs done last month - to discuss her results [facility] Medical History (Updated 07/07/24 @ 10:51 by Jarrod Sherman MD) Bilateral primary osteoarthritis of hip Obesity (BMI 30-39.9) Anxiety Benign essential hypertension Gallstones Thoracic back pain Depression Tension headache Myofascial pain Sacroiliac joint pain Post depression BMI 39.0-39.9,adult Trigger finger of left thumb Trigger finger of right thumb Insomnia Morbid obesity with BMI of 40.0-44.9, adult Smoker Carpal tunnel syndrome, bilateral Personal history of gestational diabetes Supervision of other high risk , antepartum Supervision of other normal PCOS (polycystic ovarian syndrome) control counseling Migraines Vulvar cyst Anxiety Hyperlipemia Fibromyalgia Rheumatoid arthritis Surgical History S/P laparoscopic cholecystectomy (03/06/23) H/O tubal ligation History of hip replacement, total History of esophagogastroduodenoscopy (EGD) History of removal of cyst History of tonsillectomy and adenoidectomy Family History Father Medical history unknown Mother Diabetes Hypertension Maternal Aunt Breast cancer Ovarian cancer Mental health disorder Maternal Grandmother Diabetes Hypertension Social History Household Members: Significant Other and Children Housing: House Alcohol intake: current Alcohol intake frequency: holidays/special occasions only Patient Tobacco Use Status: Former Tobacco user Tobacco use type: Cigarette e-Cigarette/Vaping Use: Never Used Second Hand Smoke Exposure: No Substance Use Type: Marijuana service: No Current occupational status: disabled Sexual orientation: Straight/Heterosexual Gender identity: Female Cognitive needs: No Hearing needs: No Vision needs: Yes Female Reproductive History Menstrual Age of Menarche: 8 Questionnaire PHQ-9 Over the last 2 weeks, how often have you been bothered by any of the following problems? 1. Little interest or pleasure in doing things: several days 2. Feeling down, depressed, or hopeless: several days 3. Trouble falling or staying asleep, or sleeping too much: several days 4. Feeling tired or having little energy: several days 5. Poor appetite or overeating: several days 6. Feeling bad about yourself - or that you are a failure or have let yourself or your family down: several days 7. Trouble concentrating on things, such as reading the newspaper or watching television: several days 8. Moving or speaking so slowly that other people could have noticed. Or the opposite - being so fidgety or restless that you have been moving around a lot more than usual: not at all 9. Thoughts that you would be better off or of hurting yourself in some way: not at all Total score: 7 Depression Screening Interpretation: Positive Depression Screening Follow-up: Existing condition and In treatment Depression Screening Done: Yes 67522 - PHQ-9 Billing: Yes Source: Developed by Drs. Cuco Richards, Itzel Ordaz, Eliud Ladd and colleagues, with an educational lino from [employer]. Thrive Questionnaire Date Thrive assessed: 07/07/24 I am a: Patient What is your living situation today?: I have a steady place to live Within the past 12 months, did the food you bought not last and you didn't have the money to get more?: Never true Within the past 12 months, did you worry whether your food would run out before you got money to buy more?: Never true Do you have trouble paying for medicines?: No Do you have trouble getting transportation to medical appointments?: No Do you have trouble paying your heating and electricity bill?: No Do you have trouble taking care of your child, family member or friend?: No Do you have trouble with day-to-day activities such as bathing, preparing meals, shopping, managing finances, etc.?: No Are you currently unemployed and looking for a job?: No Are you interested in more education?: No Please select the resources that you would like help with: None Currently or been in a relationship where the following occur: No concerns reported THRIVE Score: 0 AUDIT C Alcohol Use Questionnaire (AUDIT-C) 1. How often do you have a drink containing alcohol?: Never 3. How often do you have six or more drinks on one occasion?: Never Total Score: 0 Score Reviewed/Action Taken: Yes STEPHANIE-7 AMB Questionnaire STEPHANIE-7 Date STEPHANIE - 7 assessed: 07/07/24 Feeling nervous, anxious, or on edge: 0 = Not at all Not being able to stop or control worryin = Not at all Worrying too much about different things: 0 = Not at all Trouble relaxin = Not at all Being so restless that it is hard to sit still: 0 = Not at all Becoming easily annoyed or irritable: 0 = Not at all Feeling afraid as if something awful might happen: 0 = Not at all Total STEPHANIE-7 score (0-4 normal; 5-9 mild; 10-14 moderate; 15-21 severe): 0 Source: Developed by Drs. Cuco Richards, Itzel Ordaz, Eliud Ladd and colleagues, with an educational lino from [employer]. Review of Systems Const Denies chills, Reports fatigue, Denies fever(s), Reports headache(s) (on and off) and Reports malaise ENT Denies dysphagia, Denies dizziness, Denies otalgia, Reports headache(s) (on and off), Reports nasal congestion, Denies neck pain, Denies odynophagia and Reports sore throat (mild) Card Denies chest pain, Denies rapid heart rate, Denies palpitations and Reports dyspnea on exertion (mild) Resp Reports chest congestion (chest feels tight often), Reports cough (on and off - coughs up thick whitish to clear phlegm), Reports dyspnea on exertion (mild) and Reports wheezing (at times lately) GI Denies abdominal pain, Denies constipation, Denies dysphagia, Denies heartburn, Denies diarrhea, Denies nausea, Denies odynophagia and Denies vomiting Denies hematuria, Denies urinary frequency, Denies dysuria and Denies urinary urgency Musc Details: (+) pain in both hands Reports back pain (on and off, over the lower back), Reports arthralgias (over the left hip - chronic), Denies neck pain, Reports numbness (on and off in the right middle and ring fingers) and Reports tingling (on and off in the right middle and ring fingers) Skin/Breast Denies rash Neuro Denies dizziness, Reports headache(s) (on and off), Reports numbness (on and off in the right middle and ring fingers), Reports tingling (on and off in the right middle and ring fingers) and Denies paresthesias Psych Denies anxiety and Denies depression Endo Reports fatigue and Denies palpitations Teddy/Lymph Denies easy bruising Aller/Immun Reports wheezing (at times lately) Physical exam (Primary Care) Vital Signs: Last Vital Signs Pulse 76 07/07/24 10:04 BP 116/78 07/07/24 10:04 Pulse Ox 99 07/07/24 10:04 Oxygen Delivery Method Room Air 07/07/24 10:04 BMI result Body Mass Index 38.0 Tobacco/Smoking Status: Tobacco use Status Tobacco use date assessed 07/07/24 07/07/24 10:08 Patient Tobacco Use Status Former Tobacco user 07/07/24 10:08 Tobacco use type Cigarette 07/07/24 10:08 e-Cigarette/Vaping Use Never Used 07/07/24 10:08 PHQ-9: PHQ-9 Score PHQ-9: Total score 7 07/07/24 10:53 Depression Screening Interpretation: Positive Depression Screening Follow-up: Existing condition and In treatment Thrive Assessment: Date of Thrive Assessment Date Thrive assessed 07/07/24 07/07/24 10:08 Currently or been in a relationship where the following occur: No concerns reported Const General: no acute distress and alert HENMT Ears: TM's normal bilaterally and EAC's normal Throat: Yes tonsils normal (no TP congestion) and Yes posterior oropharynx abnormal ((+) erythema of the posterior pharynx) Neck Neck: Yes supple and Yes lymphadenopathy (over the anterior cervical areas bilaterally) Thyroid: Thyroid normal Resp Auscultation: no crackles, no rales, rhonchi (scattered ) throughout, no wheezes and diminished lung sounds bilateral Cardio Rate: regular rate Rhythm: regular rhythm Heart sounds: no murmurs GI Palpation (GI): Soft to palpation and nontender Auscultation: normal bowel sounds General: Yes no CVA tenderness Back/Spine/Pelvis Back: no CVA tenderness Thoracic/Lumbar Spine: lumbar spinal tenderness (mild) Skin Rashes: no rashes Extrem General: Yes no clubbing, cyanosis or edema Results Reviewed Results Reviewed: Laboratory Tests 05/27/24 05/27/24 06/02/24 06:29 07:58 11:01 WBC 6.6 Hgb 11.0 L Hct 34.5 L Plt Count 264 ESR 30 H Sodium 138 Potassium 3.8 Creatinine 0.66 Estimated GFR > 60 Random Glucose 107 Calcium 8.9 D Magnesium 2.0 AST 18 ALT 15 C-Reactive Protein 0.16 Lipase 35 TSH 0.85 Ur Specific [place] 1.020 Urine Protein Negative Urine Glucose (UA) Negative Urine Blood Negative Urine Nitrite Negative Ur Leukocyte Esterase Negative Lyme Screen IgG & IgM <0.90 Coding Level of Care Code Est Pt Level 4 (97909) Diagnoses Moderate persistent asthma with exacerbation J45.41 Asthma persistence: persistent Asthma severity: moderate Bilateral hand pain M79.641; M79.642 Numbness and tingling in right hand R20.0; R20.2 Benign essential hypertension I10 Elevated LFTs R79.89 Bilateral primary osteoarthritis of hip M16.0 Gastroesophageal reflux disease without esophagitis K21.9 Esophagitis presence: without esophagitis Anemia, unspecified type D64.9 Anemia type: unspecified type Migraine without status migrainosus, not intractable, unspecified migraine type G43.909 Intractability: not intractable Migraine type: unspecified Status migrainosus presence: without status migrainosus Fibromyalgia M79.7 Insomnia, unspecified type G47.00 Insomnia type: unspecified Anxiety F41.9 Episode of recurrent major depressive disorder, unspecified depression episode severity F33.9 Depression Type: major depressive disorder Major depression recurrence: recurrent Active/Remission status: currently active Major depression episode severity: unspecified Obesity (BMI 30-39.9) E66.9 Additional Codes PHQ-9 - 14353 - PHQ-9 Billing: Yes ([id number]) Assessment & Plan Assessment & Plan (1) Asthma exacerbation: Code(s): J45.901 - Unspecified asthma with (acute) exacerbation Category: Medical Qualifiers: Asthma persistence: persistent Asthma severity: moderate Qualified Code(s): J45.41 - Moderate persistent asthma with (acute) exacerbation Plan: Will send patient for chest x-rays EFRAIN for further evaluation Will start her on oral Prednisone taper and also empirically on Azithromycin (kendal) x 5 days She is instructed to continue using her Symbicort 160-4.5 mcg 2 inhalations BID and Albuterol solution via nebulizer (when she is at home and has access to it) Q 6 hours PRN and Montelukast 10 mg QD Her Dupixent injections are currently on hold as she is sick (2) Bilateral hand pain: Code(s): M79.641 - Pain in right hand; M79.642 - Pain in left hand Category: Medical Plan: Have advised patient again that her symptoms are suggestive of a median nerve neuropathy X-rays of both hands done back in May 2024 revealed (+) tiny osseous density adjacent to the left 5th MCP joint which could represent a fracture fragment. No evidence of fracture of the right hand. (+) hypoplastic proximal carpal bones bilaterally and there is widening of the scapholunate joints bilaterally which could represent old ligamentous injury We will also consider referring her for EMG and NCV of the right upper extremity for further evaluation (3) Numbness and tingling in right hand: Code(s): R20.0 - Anesthesia of skin; R20.2 - Paresthesia of skin Category: Medical Plan: Have advised patient that her symptoms are suggestive of a median nerve neuropathy We will consider referring her for EMG and NCV of the right upper extremity for further evaluation if her symptoms continue to get worse (4) Benign essential hypertension: Code(s): I10 - Essential (primary) hypertension Category: Medical Plan: Reinforced low-sodium diet - goal is systolic BP of 120 mm or less Continue Labetalol 100 mg BID She also used to take Amlodipine 5 mg QD and Spironolactone 50 mg BID but apparently stopped taking these sometime in the past couple of years or so - patient herself does not remember exactly when or why she is no longer on these meds (5) Elevated LFTs: Code(s): R79.89 - Other specified abnormal findings of blood chemistry Category: Medical Plan: Her LFTs (especially her ALT) were previously elevated back in May 2023 but have returned back to normal since They were likely due to hepatosteatosis, as confirmed on her abdominal US done back in June 2023 Will continue to monitor her LFTs regularly (6) Bilateral primary osteoarthritis of hip: Code(s): M16.0 - Bilateral primary osteoarthritis of hip Category: Medical Plan: S/P right hip arthroplasty last year in July 2022 - states that her right hip has been doing well since her surgery She also underwent total left hip arthroplastly with [facility] a few months ago on 10/24/2023 - states that her surgery and recovery went well and she now has hardly any significant issues with her hips Follow up with orthopedics as scheduled (7) GERD (gastroesophageal reflux disease): Code(s): K21.9 - Gastro-esophageal reflux disease without esophagitis Category: Medical Qualifiers: Esophagitis presence: without esophagitis Qualified Code(s): K21.9 - Gastro-esophageal reflux disease without esophagitis Plan: Dietary restrictions reinforced Continue Dexlansoprazole 60 mg QD (8) Anemia: Code(s): D64.9 - Anemia, unspecified Category: Medical Qualifiers: Anemia type: unspecified type Qualified Code(s): D64.9 - Anemia, unspecified Plan: Continue IV Iron infusions PRN Follow up with hematology as scheduled Will continue to monitor her CBC regularly (9) Migraines: Comment: reviewed med use, food triggers and what to avoid Code(s): G43.909 - Migraine, unspecified, not intractable, without status migrainosus Category: Medical Qualifiers: Intractability: not intractable Migraine type: unspecified Status migrainosus presence: without status migrainosus Qualified Code(s): G43.909 - Migraine, unspecified, not intractable, without status migrainosus Plan: Continue Acetaminophen 325 mg every 4 to 6 hours as needed Reinforced avoidance of migraine triggers Will need to consider prophylactic Tx again if her headaches persist or get worse (10) Fibromyalgia: Code(s): M79.7 - Fibromyalgia Category: Medical Plan: Patient is encouraged again on regular exercise and physical activity to help manage her fibromyalgia symptoms Continue Gabapentin 400 mg TID (11) Insomnia: Code(s): G47.00 - Insomnia, unspecified Category: Medical Qualifiers: Insomnia type: unspecified Qualified Code(s): G47.00 - Insomnia, unspecified Plan: Sleep hygiene reinforced Continue OTC Unisom 25 mg Q HS PRN (12) Anxiety: Code(s): F41.9 - Anxiety disorder, unspecified Category: Medical Plan: She is on Bupropion and Sertraline; continue Hydroxyzine 25 mg 1 to 2 tablets TID PRN (13) Depression: Code(s): F32.A - Depression, unspecified Category: Medical Qualifiers: Depression Type: major depressive disorder Major depression recurrence: recurrent Active/Remission status: currently active Major depression episode severity: unspecified Qualified Code(s): F33.9 - Major depressive disorder, recurrent, unspecified Plan: Continue Sertraline 100 mg QD and Bupropion XL 300 mg Q AM Follow up with psychiatry as scheduled (14) Obesity (BMI 30-39.9): Code(s): E66.9 - Obesity, unspecified Category: Medical Plan: Reinforced diet/exercise as tolerated/lose weight Plan Follow up in 3 months Orders: Orders XR chest 2V 07/07/24 J98.8 - Other specified respiratory disorders Medications: New azithromycin take 500 mg today (day 1), then 250 mg for 4 days (days 2-5) PO 6 tabs 0RF prednisone 4 tablets x 2 days, then 3 tablets x 2 days, then 2 tablets x 2 days, then 1 tablet x 2 days 8 days 20 tabs 0RF J45.901 - Unspecified asthma with (acute) exacerbation azithromycin take 500 mg today (day 1), then 250 mg for 4 days (days 2-5) PO 6 tabs 0RF prednisone 4 tablets x 2 days, then 3 tablets x 2 days, then 2 tablets x 2 days, then 1 tablet x 2 days 8 days 20 tabs 0RF J45.901 - Unspecified asthma with (acute) exacerbation
== END 2024-07-07 10:38 | disposition home or self-care (01) ==
PROVIDERS: PCP Internal Medicine; Visit Provider Internal Medicine
DX: J45.41 Moderate persistent asthma with (acute) exacerbation (principal); M79.641 Pain in right hand; M79.642 Pain in left hand; F33.9 Major depressive disorder, recurrent, unspecified; R20.0 Anesthesia of skin; R20.2 Paresthesia of skin; I10 Essential (primary) hypertension; R79.89 Other specified abnormal findings of blood chemistry; M16.0 Bilateral primary osteoarthritis of hip; K21.9 Gastro-esophageal reflux disease without esophagitis; D64.9 Anemia, unspecified; G43.909 Migraine, unspecified, not intractable, without status migrainosus

== ENCOUNTER → 2024-07-07 10:48 | Outpatient (BNV) | payer OTHER, SELFPAY | PROVIDERS: PCP Internal Medicine; Visit Provider Radiology Diagnostic Radiology | DX: J98.8 Other specified respiratory disorders (principal) | CPT/HCPCS: 71046 ==

== ENCOUNTER 2024-07-17 08:57 | Outpatient (REF) | payer OTHER, SELFPAY ==
[2024-07-17 09:16] LABS: MANUAL DIFF FLAG NO
[2024-07-17 09:40] LABS: Basophils Absolute Auto 0.1 X10*3/uL (0.0-0.2); Eosinophils Absolute Auto 0.2 X10*3/uL (0.0-0.4); Hematocrit 32.8 % (37.0-47.0); Hemoglobin 10.7 g/dl (12.0-16.0); Imm Gran Abs Auto 0.02 X10*3/uL (0.00-0.03); Imm Gran Pct Auto 0.4 % (0.0-0.4); Lymphocytes Absolute Auto 1.3 X10*3/uL (1.2-4.9); Mean Corpuscular HGB Conc 32.6 g/dl (31.0-35.0); Mean Corpuscular Hemoglobin 27.4 pg (27.0-33.0); Mean Corpuscular Volume 83.9 fL (80.0-98.0); Mean Platelet Volume 10.6 fL (9.4-12.3); Monocytes Absolute Auto 0.6 X10*3/uL (0.1-1.2); Monocytes Percent Auto 10.9 % (2-11); Neutrophils Percent Auto 59.7 % (45-73); Platelet Count 305 X10*3/uL (160-400); Red Blood Count 3.91 X10*6/uL (4.20-5.50); Red Cell Distribution Width 14.6 % (11.0-16.0); White Blood Count 5.1 X10*3/uL (4.8-10.8)
[2024-07-17 09:42] LABS: Appearance Urine Cloudy; Color Urine Yellow; Glucose Urine UA Negative (Negative); Leukocyte Esterase Urine Moderate (2+) (Negative); Nitrite Urine Negative (Negative); PH 6.5 (5.0-9.0); UMIC TRIGGER UACC YES; Urine Blood Negative (Negative); Urine Ketones Negative (Negative); Urine Protein Negative (Neg-Trace)
[2024-07-17 09:44] LABS: Bacteria Urine 1+ (None Seen); Hyaline Casts Urine 0-2 /LPF (0-2); RBC Urine 0-2 /HPF (0-2); UACC Culture Trigger YES
[2024-07-17 10:11] LABS: Alanine Aminotransferase 15 U/L (0-31); Albumin Level 4.1 g/dL (3.5-5.0); Alkaline Phosphatase 76 U/L (39-117); Anion Gap 10 (12-20); Aspartate Amino Transferase 17 U/L (5-31); Bilirubin Total 0.4 mg/dL (0.0-1.0); Blood Urea Nitrogen 11 mg/dL (9-16); Calcium 9.4 mg/dL (8.4-10.2); Carbon Dioxide 24 mmol/L (22-29); Chloride 112 mmol/L (96-108); Cholesterol 157 mg/dL (<200); Estimated Glomerular Filt Rate > 60; Glucose Fasting 92 mg/dL (60-99); HDL Cholesterol 43 mg/dL (>40); LDL Cholesterol Calculated 105 mg/dL (<100); Sodium 142 mmol/L (135-145); Total Protein 7.4 g/dL (6.5-8.0); Triglycerides 49 mg/dL (<150)
[2024-07-17 10:19] LABS: Erythrocyte Sedimentation Rate 28 MM/HR (0-20)
[2024-07-17 10:31] LABS: Vitamin D 25-OH Total 12.7 ng/mL (>30)
== END 2024-07-17 08:58 | disposition home or self-care (01) ==
LOC: HO.LAB 08:57
PROVIDERS: PCP Internal Medicine; Visit Provider Internal Medicine
DX: D64.9 Anemia, unspecified (principal); E78.00 Pure hypercholesterolemia, unspecified; E55.9 Vitamin D deficiency, unspecified; M79.7 Fibromyalgia
CPT/HCPCS: 36415; 80053; 80061; 81001; 82306; 84443; 85025; 85652; 87086

== ENCOUNTER → 2024-07-28 10:28 | Outpatient (BNVA) | payer OTHER, SELFPAY | PROVIDERS: PCP Internal Medicine; Visit Provider Physician Assistant Surgical | DX: I83.11 Varicose veins of right lower extremity with inflammation (principal); I83.12 Varicose veins of left lower extremity with inflammation | CPT/HCPCS: 99202 ==

== ENCOUNTER 2024-08-04 09:20 | Emergency (ER) | payer OTHER, SELFPAY ==
--- NOTE | ~2024-08-04 | XR_ITS ---
EXAMINATION: XR CHEST CLINICAL INFORMATION: cough COMPARISON: 07/07/2024, 05/21/2024. TECHNIQUE: Frontal view of the chest was obtained. FINDINGS: The cardiac, hilar, and mediastinal contours are normal. The lungs are clear bilaterally. No pneumothorax or effusion. No focal osseous or soft tissue abnormality. XR/XR chest 1V IMPRESSION: Normal chest. Electronically signed by: Virgilio Scruggs MD 08/04/2024 12:55 [facility]
--- NOTE | 2024-08-04 09:21 | ECG_ITS ---
Test Reason : sob Blood Pressure : */* mmHG Vent. Rate : 60 BPM Atrial Rate : 60 BPM P-R Int : 126 ms QRS Dur : 88 ms QT Int : 406 ms P-R-T Axes : 10 31 2 degrees QTcB Int : 406 ms Normal sinus rhythm Normal ECG When compared with ECG of 25-Mar-2024 23:56, No significant change was found Referred By: Generic ED Physician Electronically Signed By: TRANG CHAVARRIA
[2024-08-04 09:36] VITALS: BP 149/76; PULSE 76; RESP 20; TEMP 36.6; O2SAT 100; BMI 38.2
[2024-08-04 10:12] LABS: Baso%MD 0.4 %; Eos%MD 1.8 %; Hematocrit 33.8 % (37.0-47.0); Hemoglobin 10.6 g/dl (12.0-16.0); IG%MD 0.5 %; Lymph%MD 12.7 %; Mean Corpuscular HGB Conc 31.4 g/dl (31.0-35.0); Mean Corpuscular Volume 86.2 fL (80.0-98.0); Mean Platelet Volume 10.6 fL (9.4-12.3); Mono%MD 9.4 %; Neut%MD 75.2 %; Platelet Count 271 X10*3/uL (160-400); Red Blood Count 3.92 X10*6/uL (4.20-5.50); Red Cell Distribution Width 14.7 % (11.0-16.0); White Blood Count 8.2 X10*3/uL (4.8-10.8)
[2024-08-04 10:28] LABS: Alanine Aminotransferase 15 U/L (0-31); Alkaline Phosphatase 80 U/L (39-117); Anion Gap 9 (12-20); Aspartate Amino Transferase 18 U/L (5-31); Bilirubin Direct 0.2 mg/dL (0.0-0.5); Bilirubin Total 0.4 mg/dL (0.0-1.0); Blood Urea Nitrogen 7 mg/dL (9-16); Calcium 8.8 mg/dL (8.4-10.2); Carbon Dioxide 25 mmol/L (22-29); Chloride 112 mmol/L (96-108); Creatinine Clr Calc Pharmacy 138.5; Estimated Glomerular Filt Rate > 60; Glucose Random 95 mg/dL (60-115); Lipase 22 U/L (8-78); Sodium 142 mmol/L (135-145); Total Protein 7.3 g/dL (6.5-8.0)
[2024-08-04 10:37] LABS: Troponin-I High Sensitivity < 2.7 ng/L (<3.5-17.0)
[2024-08-04 10:47] LABS: Influenza A PCR NEGATIVE (Negative); Influenza B PCR NEGATIVE (Negative); Resp Syncy Virus RNA Qual PCR NEGATIVE (Negative); SARS COV2 PCR INHOUSE NEGATIVE (Negative)
[2024-08-04 10:52] LABS: Band Neutrophils Percent 1 % (3-5); Eosinophils Absolute Manual 0.2 X10*3/uL (0.0-0.4); Eosinophils Percent Manual 3 % (0-4); Lymphocytes Absolute Manual 0.5 X10*3/uL (1.2-4.9); Lymphocytes Percent Manual 6 % (20-40); Monocytes Absolute Manual 0.5 X10*3/uL (0.1-1.2); Monocytes Percent Manual 6 % (2-11); Neutrophils Percent Manual 84 % (45-73); Platelet Estimate NORMAL (NORMAL); Platelet Morphology Comment NORMAL; RBC Morphology NORMAL
[2024-08-04 11:50] VITALS: BP 141/63; PULSE 70; RESP 20; TEMP 36.7; O2SAT 98
--- NOTE | 2024-08-04 11:51 | ED_ITS ---
HPI - URI/Sore Throat General Chief Complaint: Upper Respiratory Symptoms Stated Complaint: Chest tightness, asthma Time Seen by Provider: 08/04/24 14:15 Source: patient and RN notes reviewed Mode of arrival: ambulatory Limitations: no limitations History of Present Illness ED Provider: Nida Sanchez PA-C HPI Narrative: This is a 33-year-old female, with a history of asthma, who presents emergency department with complaints of cough, fever, headaches, chest tightness the last 4 days. Her daughter is sick with similar symptoms. Daughter tested positive for influenza in the department today. She has been using her inhaler at home which has provided her with some relief. She denies any recent travel, surgery, hospitalizations. Chest pain occurs with cough. Denies any pleuritic chest pain. She is not on control. She has been taking ibuprofen for her symptoms which has provided her with some relief. No other complaints or concerns at this time. MD elicited complaint: fever, cough, sore throat, rhinorrhea and nasal congestion Pertinent past history: asthma Onset (ago): day(s) Severity: moderate Exacerbating factors: nothing Relieving factors: nothing Context: sick contacts Associated symptoms: fever, chills and myalgias Treatments prior to arrival: acetaminophen and ibuprofen Related Data Home Medications ?Medication ?Instructions ?Recorded ?Confirmed sertraline 100 mg tablet 100 mg PO DAILY 08/22/20 07/07/24 acetaminophen 325 mg tablet 650 mg PO Q6H PRN Pain 12/29/23 07/07/24 (Tylenol) albuterol sulfate 90 mcg/actuation 2 inh inhalation Q6H PRN shortness 12/29/23 07/07/24 breath activated powder inhaler of breath or wheezing bupropion HCl 300 mg 24 hr tablet, 300 mg PO DAILY 12/29/23 07/07/24 extended release dexlansoprazole 60 mg 60 mg PO DAILY@0630 12/29/23 07/07/24 capsule,biphase delayed release (Dexilant) hydroxyzine HCl 25 mg tablet 25 mg PO DAILY anxiety 12/29/23 07/07/24 linaclotide 290 mcg capsule 290 mcg PO DAILY 12/29/23 07/07/24 (Linzess) [id number]-[id number]-[id number] 1 cap PO TIDWM 12/29/23 07/07/24 36,000-114,000-180,000 unit capsule,delay rel (Creon) lorazepam 1 mg tablet 1 mg PO DAILY PRN Anxiety 12/29/23 07/07/24 metoclopramide HCl 5 mg tablet 5 mg PO BID 12/29/23 07/07/24 (Reglan) Previous Rx's ?Medication ?Instructions ?Recorded lancets 28 gauge (FreeStyle #100 ea 06/27/20 Lancets) BEDSIDE COMMODE #1 ea 05/14/22 FRONT-WHEELED WALKER #1 ea 05/14/22 TUB SEAT with BACK #1 ea 05/14/22 gabapentin 400 mg capsule 400 mg PO TID 30 days #90 caps 10/17/22 nebulizers (Compact Compressor #1 ea 02/28/23 Nebulizer) pyridoxine (vitamin B6) 100 mg 100 mg PO DAILY 90 days #90 tabs 07/09/23 tablet ibuprofen 800 mg tablet (IBU) 800 mg PO Q8H PRN pain/headaches 03/04/24 30 days #90 tabs albuterol sulfate 2.5 mg/3 mL 2.5 mg (3 mL) inhalation Q6H PRN 03/17/24 (0.083 %) solution for nebulization Shortness Of Breath Or Wheezing #180 mL budesonide-formoterol HFA 160 2 puff inhalation Q12H #10.2 grams 03/17/24 mcg-4.5 mcg/actuation aerosol inhaler (Symbicort) hydrocortisone 1 % topical cream 1 appl topical QID PRN itching 05/21/24 #28.35 grams ondansetron 4 mg disintegrating 4 mg PO Q8H PRN nausea and 05/27/24 tablet vomiting #20 tabs labetalol 100 mg tablet 100 mg PO BID 90 days #180 tabs 05/29/24 dupilumab 300 mg/2 mL subcutaneous 300 mg (2 mL) subcut Q2W #4 mL 06/02/24 pen injector (Dupixent) dupilumab 300 mg/2 mL subcutaneous 600 mg (4 mL) subcut ONCE #4 mL 06/02/24 pen injector (Dupixent) montelukast 10 mg tablet 10 mg PO BEDTIME #90 tabs 07/06/24 (Singulair) azithromycin 250 mg tablet See Rx Instructions PO .COMPLEX #6 07/07/24 tabs prednisone 10 mg tablets in a dose See Rx Instructions PO PER PKG DIR 07/07/24 pack 8 days #20 tabs Allergies Allergy/AdvReac Type Severity Reaction Status Date / Time amoxicillin [AMOXICILLIN] Allergy Intermediate NAUSEA & Verified 08/04/24 09:40 VOMITING, stomach pain, vomiting, stomach upset topiramate [From TOPAMAX] Allergy Intermediate TREMORS, Verified 08/04/24 09:40 nausea and vomiting latex [LATEX] Allergy Mild RASH Verified 08/04/24 09:40 medroxyprogesterone Allergy Mild RASH Verified 08/04/24 09:40 [From PROVERA] lactose Allergy bloating , Verified 08/04/24 09:40 diarrhea Review of Systems 2 Review of Systems: Yes all other systems are reviewed and are negative Constitutional: Constitutional: Reports as per [facility] Past Medical History Attestation statement: The following information was validated with the patient. Medical History Bilateral primary osteoarthritis of hip Obesity (BMI 30-39.9) Anxiety Benign essential hypertension Gallstones Thoracic back pain Depression Tension headache Myofascial pain Sacroiliac joint pain Post depression BMI 39.0-39.9,adult Trigger finger of left thumb Trigger finger of right thumb Insomnia Morbid obesity with BMI of 40.0-44.9, adult Smoker Carpal tunnel syndrome, bilateral Personal history of gestational diabetes Supervision of other high risk , antepartum Supervision of other normal PCOS (polycystic ovarian syndrome) control counseling Migraines Vulvar cyst Anxiety Hyperlipemia Fibromyalgia Rheumatoid arthritis Surgical History S/P laparoscopic cholecystectomy (03/06/23) H/O tubal ligation History of hip replacement, total History of esophagogastroduodenoscopy (EGD) History of removal of cyst History of tonsillectomy and adenoidectomy Family History Family History Father Medical history unknown Mother Diabetes Hypertension Maternal Aunt Breast cancer Ovarian cancer Mental health disorder Maternal Grandmother Diabetes Hypertension Social History Social History Household Members: Significant Other and Children Housing: House Alcohol intake: current Alcohol intake frequency: holidays/special occasions only Patient Tobacco Use Status: Former Tobacco user Tobacco use type: Cigarette e-Cigarette/Vaping Use: Never Used Second Hand Smoke Exposure: No Substance Use Type: Marijuana Advance Directives: No Advance Directives Information Provided: Yes Do you have a plan to hurt others: No Plan service: No Current occupational status: disabled Sexual orientation: Straight/Heterosexual Gender identity: Female Cognitive needs: No Hearing needs: No Vision needs: Yes Physical Exam 2 Vital Signs: Vital Signs: Last Vital Signs Temp 98.1 F 08/04/24 14:25 Pulse 70 08/04/24 14:25 Resp 20 08/04/24 14:25 BP 141/63 H 08/04/24 14:25 Pulse Ox 98 08/04/24 14:25 O2 Del Method Room Air 08/04/24 14:25 BMI result Body Mass Index 38.2 Const: General: cooperative, comfortable and no acute distress O rientation/consciousness: patient oriented x3 Limitations: no limitations HEENT: Head: Yes normal to inspection, Yes normocephalic and Yes atraumatic Ears: hearing grossly normal bilaterally and TM's normal bilaterally General nose exam: Normal external nose present Face and sinus: Yes normal facial exam Mouth: Normal oral and palatal mucosa present, oropharynx normal and moist mucous membranes Throat: Yes posterior oropharynx normal, Yes tonsils normal and Yes uvula midline Eyes: General: appearance normal, both eyes and all related structures E yelids: Yes eyelids normal Conjunctivae: conjunctivae normal Sclerae: s clerae normal Pupils: Equal, round and reactive pupils present EOM: EOMs intact bilaterally Neck: Neck: Yes normal visual inspection, Yes full ROM and Yes no lymphadenopathy Lymphatic: no lymphadenopathy noted Chest: Chest palpation & inspection: normal inspection of the chest Resp: Effort & Inspection: normal respiratory effort and able to speak in complete sentences Auscultation: clear to auscultation bilaterally, no crackles, no rales, no rhonchi and no wheezes Cardio: Rate: regular rate Rhythm: regular rhythm Heart sounds: S1 normal heart sound present and S2 normal heart sound present GI: Other: Abdomen is soft, nontender, nondistended Inspection: Yes normal to inspection Skin: General skin exam: no rashes or lesions noted Trauma: no lacerations or abrasions Wounds: no wounds Neuro: General: patient oriented x3 and moves all extremities Cranial nerves: Yes Equal, round and reactive pupils present Extrem: General: Yes normal to inspection Right upper extremity: normal to inspection Left upper extremity: normal to inspection Right lower extremity: normal to inspection Left lower extremity: normal to inspection Course Reevaluation(s) Reevaluation #1: Viral swabs negative, CXR showing no pneumonia. Her Lungs remain to be clear. Her daughter tested positive for the flu, and given exposure this is likely viral in nature. EKG NSR with no acute ischemic changes. Vital signs stable. Discussed overall workup with patient. Given neg workup, clear lungs, with no vital sign abnormalies, stressed the importance of conservative measures - ibuprofen/ tylenol and given strict return precautions. She understands and agrees with plan. Stable for d/c. Medications Administered Discontinued Medications Generic Name Dose Route Start Last Admin Trade Name Freq PRN Reason Stop Dose Admin Ibuprofen 600 mg 08/04/24 12:53 08/04/24 12:58 Ibuprofen 600 Mg Tablet PO 08/04/24 12:54 600 mg ONCE ONE Administration Medical Decision Making Medical Decision Making MDM Narrative: This is a 33 y.o F who presents to the Er with complaints of cough, fevers, chest tightness x 4 days. On arrival, pt speaking in full sentences under no acute distress. Lungs CTAB. Pt mildly hypertensive jorge a 149/76, otherwise all other vitals WNL. DDX including URI, bronchitis, viral syndrome, pneumonia, flu. Plan: Labs, EKG, CXR, viral swabs Differential Diagnosis Differential Diagnoses: The differential diagnosis associated with the presentation includes see above Admission/Observation Consideration of admission/observation: Escalation of care including admission/observation considered Lab Data MDM Lab Attestation statement: I reviewed the patient's lab results. No leukcytosis, microcytic anemia with an H&H of 10.6/33.8, chemistry with no significant electrolyte derangements. trop x 1 neg, no need for repeat given CP has been ongoing x 4 days. 08/04/24 10:05 08/04/24 10:05 Labs: Lab Results 08/04/24 Range/Units 10:05 WBC 8.2 (4.8-10.8) X10*3/uL RBC 3.92 L (4.20-5.50) X10*6/uL Hgb 10.6 L (12.0-16.0) g/dl Hct 33.8 L (37.0-47.0) % MCV 86.2 (80.0-98.0) fL MCH 27.0 (27.0-33.0) pg MCHC 31.4 (31.0-35.0) g/dl RDW 14.7 (11.0-16.0) % Plt Count 271 (160-400) X10*3/uL MPV 10.6 (9.4-12.3) fL Absolute Nucleated RBC 0.000 (0.0-0.012) X10*3/uL Nucleated RBC % (auto) 0.0 (0.0-0.2) /100WBC Neutrophils % (Manual) 84 H (45-73) % Band Neutrophils % 1 L (3-5) % Lymphocytes % (Manual) 6 L (20-40) % Monocytes % (Manual) 6 (2-11) % Eosinophils % (Manual) 3 (0-4) % Abs Neuts (Manual) 7.0 (2.0-8.3) X10*3/uL Lymphocytes # (Manual) 0.5 L (1.2-4.9) X10*3/uL Monocytes # (Manual) 0.5 (0.1-1.2) X10*3/uL Eosinophils # (Manual) 0.2 (0.0-0.4) X10*3/uL Platelet Estimate NORMAL (NORMAL) Plt Morphology Comment NORMAL RBC Morphology NORMAL Sodium 142 (135-145) mmol/L Potassium 4.0 (3.3-5.1) mmol/L Chloride 112 H (96-108) mmol/L Carbon Dioxide 25 (22-29) mmol/L Anion Gap 9 L (12-20) BUN 7 L (9-16) mg/dL Creatinine 0.59 (0.5-1.4) mg/dL Estim Creat Clear Calc 138.5 Estimated GFR > 60 Random Glucose 95 (60-115) mg/dL Calcium 8.8 D (8.4-10.2) mg/dL Total Bilirubin 0.4 (0.0-1.0) mg/dL Direct Bilirubin 0.2 (0.0-0.5) mg/dL AST 18 (5-31) U/L ALT 15 (0-31) U/L Alkaline Phosphatase 80 (39-117) U/L Troponin I High Sens < 2.7 (<3.5-17.0) ng/L Total Protein 7.3 (6.5-8.0) g/dL Albumin 4.0 (3.5-5.0) g/dL Lipase 22 (8-78) U/L Influenza Type A (PCR) NEGATIVE (Negative) Influenza Type B (PCR) NEGATIVE (Negative) RSV RNA Qual (PCR) NEGATIVE (Negative) SARS-CoV-2 RNA (RT-PCR) NEGATIVE (Negative) Independent Interpretation I performed an independent interpretation of an: EKG Interpretation: NSR at 60bpm, no ST elevation or depression. QTC 406. No STEMI. Radiology Impression Discussion of test interpretation with radiology: I have reviewed the radiologist's reading. Radiologist Impression: [place] [id number] XRay Report Signed Patient: Gabriella Sterling V MR#: [id number] : 1990 Acct:[id number] Age/Sex: 33 / F ADM Date: 08/04/24 Loc: .ED Attending Dr: Ordering Physician: Generic ED Physician Date of Service: 08/04/24 Procedure(s): XR chest 1V Accession Number(s): [id number] cc: Jarrod Sherman MD; Generic ED Physician~ EXAMINATION: XR CHEST CLINICAL INFORMATION: cough COMPARISON: 07/07/2024, 05/21/2024. TECHNIQUE: Frontal view of the chest was obtained. FINDINGS: The cardiac, hilar, and mediastinal contours are normal. The lungs are clear bilaterally. No pneumothorax or effusion. No focal osseous or soft tissue abnormality. XR/XR chest 1V IMPRESSION: Normal chest. Electronically signed by: Virgilio Scruggs MD 08/04/2024 12:55 PM [facility] Dictated By: Virgilio Scruggs MD Discharge Plan Discharge Clinical Impression: Acute upper respiratory infection Patient Disposition: Home, Self-Care Instructions: Upper Respiratory Infection (ED), Viral Syndrome (ED) Additional Instructions: You were seen in the emergency department tested negative for COVID, flu, and RSV. You likely have a virus that is causing you to have the symptoms. Your blood work was reassuring. Your chest x-ray does not show pneumonia. Drink plenty of fluids get plenty of rest. Alternate between ibuprofen and or Tylenol as needed for fevers and pain. Follow-up with your primary care physician. If any new or worsening symptoms occur including worsening chest pain, shortness for breath, please seek emergent care. Prescriptions: No Action (DME) FRONT-WHEELED WALKER See Rx Instructions .Route .MEDSUPPLY Qty: 1 0RF Rx Instructions: As directed (DME) TUB SEAT with BACK See Rx Instructions .Route .MEDSUPPLY Qty: 1 0RF Rx Instructions: As directed (DME) BEDSIDE COMMODE See Rx Instructions .Route .MEDSUPPLY Qty: 1 0RF Rx Instructions: As directed gabapentin 400 mg capsule 400 mg PO TID 30 Days Qty: 90 3RF Rx Instructions: 1 capsule Orally Three times a day ibuprofen [IBU] 800 mg tablet 800 mg PO Q8H PRN (Reason: pain/headaches) 30 Days Qty: 90 0RF Rx Instructions: Take with food labetalol 100 mg tablet 100 mg PO BID 90 Days Qty: 180 1RF Dupixent Pen 300 mg/2 mL pen injector 600 mg subcut ONCE Qty: 4 0RF Rx Instructions: loading dose Dupixent Pen 300 mg/2 mL pen injector 300 mg subcut Q2W Qty: 4 11RF montelukast [Singulair] 10 mg tablet 10 mg PO BEDTIME Qty: 90 1RF metoclopramide HCl [Reglan] 5 mg tablet 5 mg PO BID hydroxyzine HCl 25 mg tablet 25 mg PO DAILY lorazepam 1 mg tablet 1 mg PO DAILY PRN (Reason: Anxiety) bupropion HCl 300 mg tablet extended release 24 hr 300 mg PO DAILY dexlansoprazole [Dexilant] 60 mg capsule,biphase delayed releas 60 mg PO DAILY@0630 Linzess 290 mcg capsule 290 mcg PO DAILY Creon 36,000-114,000- 180,000 unit capsule,delayed release(DR/EC) 1 cap PO TIDWM acetaminophen [Tylenol] 325 mg Tablet 650 mg PO Q6H PRN (Reason: Pain) albuterol sulfate 90 mcg/actuation aerosol powdr breath activated 2 inh inhalation Q6H PRN (Reason: shortness of breath or wheezing) hydrocortisone 1 % cream 1 appl topical QID PRN (Reason: itching) Qty: 28.35 0RF ondansetron 4 mg tablet,disintegrating 4 mg PO Q8H PRN (Reason: nausea and vomiting) Qty: 20 0RF sertraline 100 mg tablet 100 mg PO DAILY (DME) nebulizers [Compact Compressor Nebulizer] Misc See Rx Instructions .Route Qty: 1 0RF Rx Instructions: As directed (DME) lancets [FreeStyle Lancets] 28 gauge misc See Rx Instructions .ROUTE .MEDSUPPLY Qty: 100 1RF Rx Instructions: 4 times/day pyridoxine (vitamin B6) 100 mg tablet 100 mg PO DAILY 90 Days Qty: 90 1RF budesonide-formoterol [Symbicort] 160-4.5 mcg/actuation HFA aerosol inhaler 2 puff inhalation Q12H Qty: 10.2 3RF albuterol sulfate 2.5 mg /3 mL (0.083 %) solution for nebulization 2.5 mg inhalation Q6H PRN (Reason: Shortness Of Breath Or Wheezing) Qty: 180 3RF azithromycin 250 mg tablet See Rx Instructions PO .COMPLEX Qty: 6 0RF Rx Instructions: take 500 mg today (day 1), then 250 mg for 4 days (days 2-5) PO prednisone 10 mg tablets,dose pack See Rx Instructions PO PER PKG DIR 8 Days Qty: 20 0RF Rx Instructions: 4 tablets x 2 days, then 3 tablets x 2 days, then 2 tablets x 2 days, then 1 tablet x 2 days Interventions: ED Discharge Assessment Last Done: 08/04/24 14:25 Discharge Date/Time: 08/04/24 14:26 Print Language: [place]
[2024-08-04] MEDS: Ibuprofen 600 MG TABLET PO (12:58)
[2024-08-04 14:25] VITALS: BP 141/63; PULSE 70; RESP 20; TEMP 36.7; O2SAT 98
== END 2024-08-04 14:26 | disposition home or self-care (01) ==
PROVIDERS: Emergency Provider Emergency Medicine Emergency Medical Services; PCP Internal Medicine
DX: J06.9 Acute upper respiratory infection, unspecified (principal); R05.9 Cough, unspecified; R50.9 Fever, unspecified; J02.9 Acute pharyngitis, unspecified; Z03.818 Encounter for observation for suspected exposure to other biological agents ruled out
CPT/HCPCS: 0241U; 71045; 80048; 80076; 83690; 84484; 85007; 85027; 93005; 99283

== ENCOUNTER → 2024-08-04 09:21 | Outpatient (BNV) | payer OTHER, SELFPAY | PROVIDERS: Emergency Provider Emergency Medicine Emergency Medical Services; PCP Internal Medicine; Visit Provider Internal Medicine | DX: R06.02 Shortness of breath (principal) | CPT/HCPCS: 93010 ==

== ENCOUNTER → 2024-08-04 09:46 | Outpatient (BNV) | payer OTHER, SELFPAY | PROVIDERS: PCP Internal Medicine; Visit Provider Radiology Diagnostic Radiology | DX: R05.9 Cough, unspecified (principal) | CPT/HCPCS: 71045 ==

== ENCOUNTER → 2024-08-07 12:57 | Outpatient (AMB) | payer OTHER, SELFPAY ==
--- NOTE | 2024-08-07 12:56 | A.OFFVIS_ITS ---
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 Hand Or Machine Paster: Hand Or Machine Paster offered & declined Accompanied by: Self / Same As Patient Allergies amoxicillin [AMOXICILLIN] Allergy (Intermediate, Verified 08/07/24 13:06) NAUSEA & VOMITING, stomach pain, vomiting, stomach upset topiramate [From TOPAMAX] Allergy (Intermediate, Verified 08/07/24 13:06) TREMORS, nausea and vomiting latex [LATEX] Allergy (Mild, Verified 08/07/24 13:06) RASH medroxyprogesterone [From PROVERA] Allergy (Mild, Verified 08/07/24 13:06) RASH lactose Allergy (Verified 08/07/24 13:06) bloating , diarrhea Medication List - Last Reconciled 08/07/24 by Esthela Lipscomb LPN acetaminophen (Tylenol) 650 mg PO Q6H PRN albuterol sulfate 90 mcg/actuation 2 inhalations inhalation Q6H PRN albuterol sulfate 2.5 mg (3 mL) inhalation Q6H PRN azithromycin take 500 mg today (day 1), then 250 mg for 4 days (days 2-5) PO [BEDSIDE COMMODE As directed] budesonide-formoterol 160-4.5 mcg/actuation (Symbicort) 2 puffs inhalation Q12H bupropion HCl XL 300 mg PO DAILY dexlansoprazole (Dexilant) 60 mg PO DAILY@0630 [FRONT-WHEELED WALKER As directed] gabapentin 400 mg PO TID 30 days hydrocortisone 1% 1 appl topical QID PRN hydroxyzine HCl 25 mg PO DAILY ibuprofen (IBU) 800 mg PO Q8H PRN 30 days labetalol 100 mg PO BID 90 days lancets (FreeStyle Lancets) 4 times/day linaclotide (Linzess) 290 mcg PO DAILY [id number]-mmepzmuu-tyxxcuu 36,000-114,000- 180,000 unit (Creon) 1 cap PO TIDWM lorazepam 1 mg PO DAILY PRN metoclopramide HCl (Reglan) 5 mg PO BID montelukast (Singulair) 10 mg PO BEDTIME nebulizers (Compact Compressor Nebulizer) As directed ondansetron 4 mg PO Q8H PRN prednisone 4 tablets x 2 days, then 3 tablets x 2 days, then 2 tablets x 2 days, then 1 tablet x 2 days 8 days pyridoxine (vitamin B6) 100 mg PO DAILY 90 days sertraline 100 mg PO DAILY [TUB SEAT with BACK As directed] HPI HPI SOB, COUGH,CONGESTION: Details: Gabriella is a very pleasant 33 year-old female, never tobacco smoker, with underlying asthma COPD overlap, rheumatoid arthritis and fibromyalgia. At baseline she reports moderate control of respiratory symptoms on Symbicort, albuterol MDI/neb. She has had multiple courses of OCS this year related to asthma exacerbations and was started on Dupixent however she wanted to d iscontinue as she developed nausea/vomiting. Today she presents for an acute visit. She reports ongoing nonproductive cough, chest congestion, increased dyspnea and wheezing for the past 5 days that has been progressively worsening. She has been using her albuterol MDI/neb with moderate effect. She was seen in [facility] on 08/04 CXR and viral panel negative, daughter recently tested positive for influenza. Endorses fevers, denies chills. Of note, she was also treated for an asthma exacerbation with prednisone and a zpak by PCP on 07/07. [facility] Medical History Bilateral primary osteoarthritis of hip Obesity (BMI 30-39.9) Anxiety Benign essential hypertension Gallstones Thoracic back pain Depression Tension headache Myofascial pain Sacroiliac joint pain Post depression BMI 39.0-39.9,adult Trigger finger of left thumb Trigger finger of right thumb Insomnia Morbid obesity with BMI of 40.0-44.9, adult Smoker Carpal tunnel syndrome, bilateral Personal history of gestational diabetes Supervision of other high risk , antepartum Supervision of other normal PCOS (polycystic ovarian syndrome) control counseling Migraines Vulvar cyst Anxiety Hyperlipemia Fibromyalgia Rheumatoid arthritis Surgical History S/P laparoscopic cholecystectomy (03/06/23) H/O tubal ligation History of hip replacement, total History of esophagogastroduodenoscopy (EGD) History of removal of cyst History of tonsillectomy and adenoidectomy Family History Father Medical history unknown Mother Diabetes Hypertension Maternal Aunt Breast cancer Ovarian cancer Mental health disorder Maternal Grandmother Diabetes Hypertension Social History Household Members: Significant Other and Children Housing: House Alcohol intake: current Alcohol intake frequency: holidays/special occasions only Patient Tobacco Use Status: Former Tobacco user Tobacco use type: Cigarette e-Cigarette/Vaping Use: Never Used Second Hand Smoke Exposure: No Substance Use Type: Marijuana service: No Current occupational status: disabled Sexual orientation: Straight/Heterosexual Gender identity: Female Cognitive needs: No Hearing needs: No Vision needs: Yes Female Reproductive History Menstrual Age of Menarche: 8 Review of Systems Const Denies chills, Denies excessive sweating and Denies night sweats Eyes Denies dry eyes and Reports itchy eyes ENT Reports Normal hearing present, Reports nasal congestion, Reports nasal discharge, Reports post nasal drip and Denies sore throat Card Denies chest pain, Denies chest pain at rest, Denies chest pain with activity, Denies claudication, Denies leg edema, Reports dyspnea on exertion, Denies orthopnea and Denies paroxysmal nocturnal dyspnea Resp Reports chest congestion, Reports cough, Denies excessive phlegm production, Denies pain on inspiration, Denies pain with cough, Reports dyspnea on exertion, Denies stridor and Reports wheezing Musc Denies myalgias Neuro Reports Normal hearing present Endo Denies excessive sweating Teddy/Lymph Denies lymphadenopathy Aller/Immun Reports itchy eyes, Denies seasonal rhinorrhea and Reports wheezing Physical Exam Vital Signs: Last Vital Signs Pulse 68 08/07/24 13:02 BP 130/68 08/07/24 13:02 Pulse Ox 100 08/07/24 13:02 Oxygen Delivery Method Room Air 08/07/24 13:02 BMI result Body Mass Index 38.0 Const General: cooperative, no acute distress, well developed and alert Nutritional Appearance: obese Orientation/consciousness: patient oriented x3 Limitations: no limitations HEENT Head: Yes normal to inspection, Yes normocephalic and Yes atraumatic Ears: hearing grossly normal bilaterally and external ears normal Eyes General: appearance normal, both eyes and all related structures Eyelids: Yes eyelids normal Sclerae: sclerae normal EOM: EOMs intact bilaterally Neck Neck: Yes normal visual inspection and Yes no lymphadenopathy Lymphatic: no lymphadenopathy noted Chest Chest palpation & inspection: normal inspection of the chest Resp Other: postexhalation cough throughout respiratory exam Effort & Inspection: normal respiratory effort, able to speak in complete sentences, no audible wheezes, no stridor, not tachypneic, no tripod positioning and no use of accessory muscles Auscultation: no crackles, no rales, no rhonchi and diminished lung sounds Cardio Jugular venous distension: no JVD Rate: regular rate Rhythm: regular rhythm Skin Other: warm, dry General skin exam: no rashes or lesions noted Neuro General: patient oriented x3 Cranial nerves: Yes Normal hearing present Cognition (Neuro): normal cognition Gait exam (Neuro): Normal gait present Extrem General: Yes normal to inspection, Yes capillary refill normal, Yes no clubbing, cyanosis or edema and Yes no pedal edema Psych Appearance: grossly normal and well kempt Speech and movement: Normal speech and movement present and Clear speech present Affect: normal affect Attitude: cooperative Thought process: Normal thought process present Thought content: Normal thought content present Insight: Good insight present (Psych) Judgement: Good judgement present (Psych) Assessment & Plan Assessment & Plan (1) Asthma-COPD overlap syndrome: Code(s): J44.89 - Other specified chronic obstructive pulmonary disease Category: Medical Plan Gabriella presents for an acute visit with URI symptoms, daughter with influenza, likely viral infection at this time. Will treat with prednisone and encouraged OTC medications, increased fluid intake as well as increasing use of albuerol neb. If symptoms persist will treat with abx for secondary infection. She is aware to seek emergent care if symptoms worsen. All questions answered and patient is in agreement of plan. Will follow up at regularly scheduled or sooner if needed. Medications: New prednisone 40 mg (2 x 20 mg) PO DAILY 10 tabs 0RF prednisone 40 mg (2 x 20 mg) PO DAILY 20 tabs 0RF Coding Level of Care Code Est Pt Level 4 (98747) Diagnoses Asthma-COPD overlap syndrome J44.89
[2024-08-07 13:02] VITALS: BP 130/68; PULSE 68; O2SAT 100; BMI 38.0
== END ==
PROVIDERS: PCP Internal Medicine; Visit Provider Nurse Practitioner Family
DX: J44.89 Other specified chronic obstructive pulmonary disease (principal)
CPT/HCPCS: 99214

== ENCOUNTER → 2024-08-07 12:57 | Outpatient (BNVA) | payer OTHER, SELFPAY | PROVIDERS: PCP Internal Medicine; Visit Provider Nurse Practitioner Family | DX: J44.89 Other specified chronic obstructive pulmonary disease (principal) | CPT/HCPCS: 99212 ==

== ENCOUNTER 2024-08-21 10:30 | Outpatient (REF) | payer OTHER, SELFPAY ==
--- NOTE | ~2024-08-21 | US_ITS ---
EXAMINATION: US LOWER EXTREMITY VENOUS (REFLUX EXAM), BILATERAL CLINICAL INFORMATION: Varices. COMPARISON: Venous ultrasound left lower extremity dated December 22, 2022. TECHNIQUE: Color flow triplex imaging and compression Doppler was performed to evaluate both the deep and the superficial systems bilaterally. To evaluate the superficial system, the examination was performed in the upright position. Color-flow Doppler ultrasound and compression ultrasound were utilized. In addition, maneuvers were utilized to demonstrate reflux. FINDINGS: 1. DEEP VENOUS ULTRASOUND OF THE RIGHT LOWER EXTREMITY: Common Femoral Vein: Compressible, normal respiratory variation and augmented flow. Femoral Vein: Compressible, normal color flow and augmentation. Popliteal Vein: Compressible, normal augmentation. Deep Reflux: There is no evidence of reflux in the deep system in either the common femoral vein, superficial femoral or the popliteal vein. There is no evidence of a Landry's cyst. 2. SUPERFICIAL ULTRASOUND WITH DOPPLER OF RIGHT LOWER EXTREMITY: GREAT SAPHENOUS VEIN: Saphenofemoral Junction: 0.4 cm; Reflux: 0 ms Proximal Thigh: 0.6 cm; Reflux: 0 ms Mid Thigh: 0.3 cm; Reflux: 0 ms Distal Thigh: 0.4 cm; Reflux: No more than 2496 ms At Knee: 0.4 cm; Reflux: 0 ms Proximal Calf: 0.2 cm; Reflux: 0 ms Mid Calf: 0.2 cm; Reflux: 1596 ms Distal Calf: 0.3 cm; Reflux: 612 ms DUPLICATED MEDIAL GREAT SAPHENOUS VEIN: Diameter: None imaged Reflux: NA DUPLICATED LATERAL GREAT SAPHENOUS VEIN: Diameter: 0.4 cm. Reflux: NA SMALL SAPHENOUS VEIN: Saphenopopliteal Junction: 0.2 cm; Reflux: 0 ms Proximal: 0.2 cm; Reflux: 0 ms Distal: 0.2 cm; Reflux: 0 ms VEIN OF GIACOMINI: Size: NA Reflux: NA PERFORATORS: Location: Small saphenous vein, mid segment. Size: 0.2 cm. Reflux: NA VARICOSITIES: Location: At the knee level. Size: 0.3 cm. Reflux: NA 3. DEEP VENOUS ULTRASOUND OF THE LEFT LOWER EXTREMITY: Common Femoral Vein: Compressible, normal respiratory variation and augmented flow. Femoral Vein: Compressible, normal color flow and augmentation. Popliteal Vein: Compressible, normal augmentation. Deep Reflux: There is no evidence of reflux in the deep system in either the common femoral vein, superficial femoral or the popliteal vein. There is no evidence of a Landry's cyst. 4. SUPERFICIAL ULTRASOUND WITH DOPPLER OF LEFT LOWER EXTREMITY: GREAT SAPHENOUS VEIN: Saphenofemoral Junction: 0.6 cm; Reflux: 0 ms Proximal Thigh: 0.3 cm; Reflux: 0 ms Mid Thigh: 0.3 cm; Reflux: 0 ms Distal Thigh: 0.4 cm; Reflux: 0 ms At Knee: 0.3 cm; Reflux: 0 ms Proximal Calf: 0.2 cm; Reflux: 0 ms Mid Calf: 0.2 cm; Reflux: 0 ms Distal Calf: 0.2 cm; Reflux: 0 ms DUPLICATED MEDIAL GREAT SAPHENOUS VEIN: Diameter: None imaged Reflux: NA DUPLICATED LATERAL GREAT SAPHENOUS VEIN: Diameter: 0.3 cm. Reflux: NA SMALL SAPHENOUS VEIN: Saphenopopliteal Junction: 0.3 cm; Reflux: 0 ms Proximal: 0.1 cm; Reflux: 0 ms Distal: 0.2 cm; Reflux: 0 ms VEIN OF GIACOMINI: Size: 0.3 cm. Reflux: NA PERFORATORS: Location: Mid thigh. Size: 0.2 cm. Reflux: NA VARICOSITIES: Location: None Imaged Size: NA Reflux: NA US/US venous duplex LE BI IMPRESSION: Right: Venous insufficiency, great saphenous vein [id number] and midcalf. Varices at the knee without reflux. Perforators in the mid small saphenous vein without reflux. Left: No venous insufficiency. Electronically signed by: José Miguel Wynn MD 08/24/2024 03:08 PM EDT
== END 2024-08-21 10:31 | disposition home or self-care (01) ==
LOC: HO.US 10:30
PROVIDERS: PCP Internal Medicine; Visit Provider Physician Assistant Surgical
DX: I83.11 Varicose veins of right lower extremity with inflammation (principal); I83.12 Varicose veins of left lower extremity with inflammation
CPT/HCPCS: 93970

== ENCOUNTER → 2024-08-21 10:32 | Outpatient (BNV) | payer OTHER, SELFPAY | PROVIDERS: PCP Internal Medicine; Visit Provider Radiology Diagnostic Radiology | DX: I87.2 Venous insufficiency (chronic) (peripheral) (principal) | CPT/HCPCS: 93970 ==

== ENCOUNTER 2024-08-25 09:57 | Outpatient (AMB) | payer OTHER, SELFPAY ==
--- NOTE | 2024-08-25 10:00 | A.OFFVIS_ITS ---
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 Chef Or Cook offered & declined Accompanied by: Self / Same As Patient Allergies amoxicillin [AMOXICILLIN] Allergy (Intermediate, Verified 08/25/24 10:04) NAUSEA & VOMITING, stomach pain, vomiting, stomach upset topiramate [From TOPAMAX] Allergy (Intermediate, Verified 08/25/24 10:04) TREMORS, nausea and vomiting latex [LATEX] Allergy (Mild, Verified 08/25/24 10:04) RASH medroxyprogesterone [From PROVERA] Allergy (Mild, Verified 08/25/24 10:04) RASH lactose Allergy (Verified 08/25/24 10:04) bloating , diarrhea Medication List - Last Reconciled 08/25/24 by Esthela Lipscomb LPN acetaminophen (Tylenol) 650 mg PO Q6H PRN albuterol sulfate 90 mcg/actuation 2 inhalations inhalation Q6H PRN albuterol sulfate 2.5 mg (3 mL) inhalation Q6H PRN [BEDSIDE COMMODE As directed] budesonide-formoterol 160-4.5 mcg/actuation (Symbicort) 2 puffs inhalation Q12H bupropion HCl XL 300 mg PO DAILY dexlansoprazole (Dexilant) 60 mg PO DAILY@0630 [FRONT-WHEELED WALKER As directed] gabapentin 400 mg PO TID 30 days hydrocortisone 1% 1 appl topical QID PRN hydroxyzine HCl 25 mg PO DAILY ibuprofen (IBU) 800 mg PO Q8H PRN 30 days labetalol 100 mg PO BID 90 days lancets (FreeStyle Lancets) 4 times/day linaclotide (Linzess) 290 mcg PO DAILY [id number]-kjelrjvg-defxuzd 36,000-114,000- 180,000 unit (Creon) 1 cap PO TIDWM lorazepam 1 mg PO DAILY PRN metoclopramide HCl (Reglan) 5 mg PO BID montelukast (Singulair) 10 mg PO BEDTIME nebulizers (Compact Compressor Nebulizer) As directed ondansetron 4 mg PO Q8H PRN pyridoxine (vitamin B6) 100 mg PO DAILY 90 days sertraline 100 mg PO DAILY [TUB SEAT with BACK As directed] HPI HPI asthma: Details: Gabriella is a very pleasant 33 year-old female, never tobacco smoker, with underlying asthma COPD overlap, rheumatoid arthritis and fibromyalgia. At baseline she reports suboptimal control of respiratory symptoms on Symbicort, requiring albuterol MDI/neb frequently. She continues with dyspnea on exertion and chest tightness. At the last visit, she was treated with prednisone with resolution of wheezing secondary to URI. She has had multiple courses of OCS this year related to asthma exacerbations and was started on Dupixent however she wanted to discontinue as she developed nausea/vomiting. She denies any visits to urgent care or hospitalizations related to respiratory distress since the last visit. [facility] Medical History Bilateral primary osteoarthritis of hip Obesity (BMI 30-39.9) Anxiety Benign essential hypertension Gallstones Thoracic back pain Depression Tension headache Myofascial pain Sacroiliac joint pain Post depression BMI 39.0-39.9,adult Trigger finger of left thumb Trigger finger of right thumb Insomnia Morbid obesity with BMI of 40.0-44.9, adult Smoker Carpal tunnel syndrome, bilateral Personal history of gestational diabetes Supervision of other high risk , antepartum Supervision of other normal PCOS (polycystic ovarian syndrome) control counseling Migraines Vulvar cyst Anxiety Hyperlipemia Fibromyalgia Rheumatoid arthritis Surgical History S/P laparoscopic cholecystectomy (03/06/23) H/O tubal ligation History of hip replacement, total History of esophagogastroduodenoscopy (EGD) History of removal of cyst History of tonsillectomy and adenoidectomy Family History Father Medical history unknown Mother Diabetes Hypertension Maternal Aunt Breast cancer Ovarian cancer Mental health disorder Maternal Grandmother Diabetes Hypertension Social History Household Members: Significant Other and Children Housing: House Alcohol intake: current Alcohol intake frequency: holidays/special occasions only Patient Tobacco Use Status: Former Tobacco user Tobacco use type: Cigarette e-Cigarette/Vaping Use: Never Used Second Hand Smoke Exposure: No Substance Use Type: Marijuana service: No Current occupational status: disabled Sexual orientation: Straight/Heterosexual Gender identity: Female Cognitive needs: No Hearing needs: No Vision needs: Yes Female Reproductive History Menstrual Age of Menarche: 8 Review of Systems Const Denies chills, Denies excessive sweating and Denies night sweats Eyes Denies dry eyes and Reports itchy eyes ENT Reports Normal hearing present, Reports nasal congestion, Reports nasal discharge, Reports post nasal drip and Denies sore throat Card Denies chest pain, Denies chest pain at rest, Denies chest pain with activity, Denies claudication, Denies leg edema, Reports dyspnea on exertion, Denies orthopnea and Denies paroxysmal nocturnal dyspnea Resp Denies chest congestion, Denies cough, Denies excessive phlegm production, Denies pain on inspiration, Denies pain with cough, Reports dyspnea on exertion, Denies stridor and Denies wheezing Musc Denies myalgias Neuro Reports Normal hearing present Endo Denies excessive sweating Teddy/Lymph Denies lymphadenopathy Aller/Immun Reports itchy eyes, Denies seasonal rhinorrhea and Denies wheezing Physical Exam Vital Signs: Last Vital Signs Pulse 78 08/25/24 10:01 Pulse Ox 100 08/25/24 10:01 Oxygen Delivery Method Room Air 08/25/24 10:01 BMI result Body Mass Index 39.7 Const General: cooperative, no acute distress, well developed and alert Nutritional Appearance: obese Orientation/consciousness: patient oriented x3 Limitations: no limitations HEENT Head: Yes normal to inspection, Yes normocephalic and Yes atraumatic Ears: hearing grossly normal bilaterally and external ears normal Eyes General: appearance normal, both eyes and all related structures Eyelids: Yes eyelids normal Sclerae: sclerae normal EOM: EOMs intact bilaterally Neck Neck: Yes normal visual inspection and Yes no lymphadenopathy Lymphatic: no lymphadenopathy noted Chest Chest palpation & inspection: normal inspection of the chest Resp Effort & Inspection: normal respiratory effort, able to speak in complete sentences, no audible wheezes, no stridor, not tachypneic, no tripod positioning and no use of accessory muscles Auscultation: no crackles, no rales, no rhonchi and diminished lung sounds Cardio Jugular venous distension: no JVD Rate: regular rate Rhythm: regular rhythm Skin Other: warm, dry General skin exam: no rashes or lesions noted Neuro General: patient oriented x3 Cranial nerves: Yes Normal hearing present Cognition (Neuro): normal cognition Gait exam (Neuro): Normal gait present Extrem General: Yes normal to inspection, Yes capillary refill normal, Yes no clubbing, cyanosis or edema and Yes no pedal edema Psych Appearance: grossly normal and well kempt Speech and movement: Normal speech and movement present and Clear speech present Affect: normal affect Attitude: cooperative Thought process: Normal thought process present Thought content: Normal thought content present Insight: Good insight present (Psych) Judgement: Good judgement present (Psych) Assessment & Plan Assessment & Plan (1) Asthma-COPD overlap syndrome: Code(s): J44.89 - Other specified chronic obstructive pulmonary disease Category: Medical Plan Gabriella reports suboptimal control with Symbicort and albuterol MDI/neb. Will switch to Trelegy. All questions answered and patient is in agreement of plan. Will follow up in 6-8 weeks or sooner if needed. Medications: New klvohfukgku-wgnkvaxms-mmkyexcx 200-62.5-25 mcg (Trelegy Ellipta) 1 inh inhalation DAILY 60 ea 6RF Coding Level of Care Code Est Pt Level 4 (88293) Diagnoses Asthma-COPD overlap syndrome J44.89
[2024-08-25 10:01] VITALS: PULSE 78; O2SAT 100; BMI 39.7
== END 2024-08-25 10:14 | disposition home or self-care (01) ==
LOC: HO.HPSW 09:58
PROVIDERS: PCP Internal Medicine; Visit Provider Nurse Practitioner Family
DX: J44.89 Other specified chronic obstructive pulmonary disease (principal)
CPT/HCPCS: 99214

== ENCOUNTER → 2024-08-25 09:57 | Outpatient (BNVA) | payer OTHER, SELFPAY | PROVIDERS: PCP Internal Medicine; Visit Provider Nurse Practitioner Family | DX: J44.89 Other specified chronic obstructive pulmonary disease (principal) | CPT/HCPCS: 99212 ==

== ENCOUNTER 2024-09-01 13:37 | Outpatient (AMB) | payer OTHER, SELFPAY ==
[2024-09-01 13:40] VITALS: BP 142/80; PULSE 59; RESP 20; TEMP 37.4; O2SAT 99; BMI 38.3
--- NOTE | 2024-09-01 13:40 | MHC.PC.OV ---
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 Worker Required: No Accompanied by: Daughter Allergies amoxicillin [AMOXICILLIN] Allergy (Intermediate, Verified 09/13/24 12:35) NAUSEA & VOMITING, stomach pain, vomiting, stomach upset topiramate [From TOPAMAX] Allergy (Intermediate, Verified 09/13/24 12:35) TREMORS, nausea and vomiting latex [LATEX] Allergy (Mild, Verified 09/13/24 12:35) RASH medroxyprogesterone [From PROVERA] Allergy (Mild, Verified 09/13/24 12:35) RASH lactose Allergy (Verified 09/13/24 12:35) bloating , diarrhea Medication List - Last Reconciled 09/01/24 by DONNY Huerta acetaminophen (Tylenol) 650 mg PO Q6H PRN albuterol sulfate 90 mcg/actuation 2 inhalations inhalation Q6H PRN albuterol sulfate 2.5 mg (3 mL) inhalation Q6H PRN [BEDSIDE COMMODE As directed] bupropion HCl XL 300 mg PO DAILY dexlansoprazole (Dexilant) 60 mg PO DAILY@0630 diclofenac sodium 1% topical fluticasone furoate-vilanterol 200-25 mcg/dose (Breo Ellipta) 1 inh inhalation DAILY [FRONT-WHEELED WALKER As directed] gabapentin 400 mg PO TID 30 days hydrocortisone 1% 1 appl topical QID PRN hydroxyzine HCl 25 mg PO DAILY ibuprofen (IBU) 800 mg PO Q8H PRN 30 days labetalol 100 mg PO BID 90 days lancets (FreeStyle Lancets) 4 times/day linaclotide (Linzess) 290 mcg PO DAILY bfkfxj-pzrkwucx-fwqlseo 36,000-114,000- 180,000 unit (Creon) 1 cap PO TIDWM lorazepam 1 mg PO DAILY PRN meloxicam mg PO DAILY PRN metoclopramide HCl (Reglan) 5 mg PO BID montelukast (Singulair) 10 mg PO BEDTIME naproxen mg PO PRN nebulizers (Compact Compressor Nebulizer) As directed ondansetron 4 mg PO Q8H PRN pyridoxine (vitamin B6) 100 mg PO DAILY 90 days sertraline 100 mg PO DAILY [TUB SEAT with BACK As directed] umeclidinium 62.5 mcg/actuation (Incruse Ellipta) 1 inh inhalation DAILY Tobacco use date assessed: 09/01/24 Dental Screening Dental Screen Date: 09/01/24 Did you have a dental visit in the last 12 months?: Yes Did you have a dental problem in the last 6 months where you did not have access to dental care?: No Was dental information given to patient?: Patient has dentist HPI high BP, headaches HPI Details Patient is a 33-year-old female presenting for evaluation of elevated blood pressure. Patient of Dr. Sherman The patient reports that her blood pressure was really high, and she was having chest pain and cool sweats Reports that she gets these symptoms before she gets her periods The patient reports that she did not take her asthma medication because she was scared to try a new medication Reports that her medication was switched because she was still having a lot of symptoms on her previous treatment regimen She was prescribed Breo, the patient reports that she has a lot going on She ran out of her hydroxyzine because her psychiatrist no longer work at the site and she needs to find a new one She is still seeing her therapist. Hydroxyzine refilled for the patient. Recommended that the patient start taking magnesium 400mg and B2 400mg daily for her headaches. Lungs were clear to auscultation- recommend that the patient start taking her inhaler. Blood pressure 142/80-seems to be anxiety driven [facility] Medical History Bilateral primary osteoarthritis of hip Obesity (BMI 30-39.9) Anxiety Benign essential hypertension Gallstones Thoracic back pain Depression Tension headache Myofascial pain Sacroiliac joint pain Post depression BMI 39.0-39.9,adult Trigger finger of left thumb Trigger finger of right thumb Insomnia Morbid obesity with BMI of 40.0-44.9, adult Smoker Carpal tunnel syndrome, bilateral Personal history of gestational diabetes Supervision of other high risk , antepartum Supervision of other normal PCOS (polycystic ovarian syndrome) control counseling Migraines Vulvar cyst Anxiety Hyperlipemia Fibromyalgia Rheumatoid arthritis Surgical History S/P laparoscopic cholecystectomy (03/06/23) H/O tubal ligation History of hip replacement, total History of esophagogastroduodenoscopy (EGD) History of removal of cyst History of tonsillectomy and adenoidectomy Family History Father Medical history unknown Mother Diabetes Hypertension Maternal Aunt Breast cancer Ovarian cancer Mental health disorder Maternal Grandmother Diabetes Hypertension Social History Household Members: Significant Other and Children Housing: House Alcohol intake: current Alcohol intake frequency: holidays/special occasions only Patient Tobacco Use Status: Former Tobacco user Tobacco use type: Cigarette e-Cigarette/Vaping Use: Never Used Second Hand Smoke Exposure: No Substance Use Type: Marijuana service: No Current occupational status: disabled Sexual orientation: Straight/Heterosexual Gender identity: Female Cognitive needs: No Hearing needs: No Vision needs: Yes Female Reproductive History Menstrual Age of Menarche: 8 Questionnaire PHQ-9 Over the last 2 weeks, how often have you been bothered by any of the following problems? 1. Little interest or pleasure in doing things: not at all 2. Feeling down, depressed, or hopeless: more than half the days 3. Trouble falling or staying asleep, or sleeping too much: more than half the days 4. Feeling tired or having little energy: nearly every day 5. Poor appetite or overeating: nearly every day 6. Feeling bad about yourself - or that you are a failure or have let yourself or your family down: nearly every day 7. Trouble concentrating on things, such as reading the newspaper or watching television: nearly every day 8. Moving or speaking so slowly that other people could have noticed. Or the opposite - being so fidgety or restless that you have been moving around a lot more than usual: nearly every day 9. Thoughts that you would be better off or of hurting yourself in some way: not at all Total score: 19 Depression Screening Interpretation: Positive Depression Screening Done: Yes Source: Developed by Drs. Cuco Richards, Eliud Cummings and colleagues, with an educational lino from [employer]. Thrive Questionnaire Date Thrive assessed: 07/07/24 I am a: Patient What is your living situation today?: I have a steady place to live Within the past 12 months, did the food you bought not last and you didn't have the money to get more?: Never true Within the past 12 months, did you worry whether your food would run out before you got money to buy more?: Never true Do you have trouble paying for medicines?: No Do you have trouble getting transportation to medical appointments?: No Do you have trouble paying your heating and electricity bill?: No Do you have trouble taking care of your child, family member or friend?: No Do you have trouble with day-to-day activities such as bathing, preparing meals, shopping, managing finances, etc.?: No Are you currently unemployed and looking for a job?: No Are you interested in more education?: No Please select the resources that you would like help with: None Currently or been in a relationship where the following occur: No concerns reported THRIVE Score: 0 AUDIT C Alcohol Use Questionnaire (AUDIT-C) 1. How often do you have a drink containing alcohol?: Never 3. How often do you have six or more drinks on one occasion?: Never Total Score: 0 Score Reviewed/Action Taken: Yes STEPHANIE-7 AMB Questionnaire STEPHANIE-7 Date STEPHANIE - 7 assessed: 09/01/24 Feeling nervous, anxious, or on edge: 3 = Nearly every day Not being able to stop or control worryin = More than half the days Worrying too much about different things: 3 = Nearly every day Trouble relaxin = Nearly every day Being so restless that it is hard to sit still: 3 = Nearly every day Becoming easily annoyed or irritable: 3 = Nearly every day Feeling afraid as if something awful might happen: 3 = Nearly every day Total STEPHANIE-7 score (0-4 normal; 5-9 mild; 10-14 moderate; 15-21 severe): 20 Source: Developed by Drs. Cuco Richards, Eliud Cummings and colleagues, with an educational lino from [employer]. Review of Systems Const Reports excessive sweating and Reports headache(s) Eyes Denies loss of vision ENT Denies vertigo, Denies dizziness, Reports headache(s) and Denies sore throat Card Reports chest pain (before getting her period), Denies leg edema and Denies lightheadedness Resp Denies cough, Denies hemoptysis and Denies wheezing GI Denies abdominal pain, Denies melena, Denies constipation, Denies diarrhea and Denies vomiting Denies urinary frequency, Denies dysuria and Denies urinary urgency Musc Denies arthralgias, Denies joint swelling, Denies numbness and Denies tingling Neuro Denies Abnormal speech present, Denies behavioral changes, Denies vertigo, Denies dizziness, Reports headache(s), Denies loss of vision, Denies memory loss, Denies numbness and Denies tingling Psych Reports anxiety, Denies behavioral changes, Reports depression, Denies memory loss and Denies panic attacks Endo Reports excessive sweating Teddy/Lymph Denies easy bleeding and Denies easy bruising Aller/Immun Denies wheezing Physical exam (Primary Care) Vital Signs: Last Vital Signs Temp 99.4 F 09/01/24 13:40 Pulse 59 09/01/24 13:40 Resp 20 09/01/24 13:40 BP 142/80 H 09/01/24 13:40 Pulse Ox 99 09/01/24 13:40 Oxygen Delivery Method Room Air 09/01/24 13:40 BMI result Body Mass Index 38.3 Tobacco/Smoking Status: Tobacco use Status Tobacco use date assessed 09/01/24 09/01/24 13:58 Patient Tobacco Use Status Former Tobacco user 09/01/24 13:58 Tobacco use type Cigarette 09/01/24 13:58 e-Cigarette/Vaping Use Never Used 09/01/24 13:58 PHQ-9: PHQ-9 Score PHQ-9: Total score 19 09/01/24 14:09 Depression Screening Interpretation: Positive Thrive Assessment: Date of Thrive Assessment Date Thrive assessed 07/07/24 09/01/24 13:58 Currently or been in a relationship where the following occur: No concerns reported Const General: healthy appearing, no acute distress, alert and awake Nutritional Appearance: well nourished Orientation/consciousness: oriented to person, oriented to place and oriented to time HENMT Ears: TM's normal bilaterally General nose exam: Normal nasal mucous membranes and turbinates present Eyes Conjunctivae: conjunctivae normal Sclerae: sclerae normal Pupils: Equal, round and reactive pupils present Neck Neck: Yes no lymphadenopathy and Yes no JVD Thyroid: Thyroid normal Carotids: no bruits Resp Effort & Inspection: normal respiratory effort and not tachypneic Auscultation: no crackles, no rales, no rhonchi and no wheezes Cardio Rate: regular rate Rhythm: regular rhythm Heart sounds: no murmurs and normal S1 and S2 GI Palpation (GI): Soft to palpation, nontender, no hepatomegaly and no splenomegaly Auscultation: normal bowel sounds Skin General skin exam: no rashes or lesions noted and dry skin Neuro General: oriented to person, oriented to place and oriented to time Cranial nerves: Yes Equal, round and reactive pupils present Speech: No Abnormal speech present Gait exam (Neuro): Normal gait present Motor exam (neuro): no tremor noted Extrem Right upper extremity: full ROM Left upper extremity: full ROM Right lower extremity: full ROM; no edema Left lower extremity: full ROM; no edema Psych Mental Status: mental status grossly normal Speech and movement: Normal speech and movement present Affect: normal affect Attitude: cooperative Thought process: Normal thought process present Coding Level of Care Code Est Pt Level 3 (13058) Diagnoses Anxiety F41.9 Asthma-COPD overlap syndrome J44.89 Essential hypertension I10 Hypertension type: essential hypertension Depression, unspecified depression type F32.A Depression Type: unspecified Migraine without status migrainosus, not intractable, unspecified migraine type G43.909 Intractability: not intractable Migraine type: unspecified Status migrainosus presence: without status migrainosus Time Spent (min) 39 Assessment & Plan Assessment & Plan (1) Anxiety: Code(s): F41.9 - Anxiety disorder, unspecified Category: Medical Plan: encouraged cbt-reports that her therapist left the site and she has to find a new one Continue hydroxyzine 25 mg daily, lorazepam 1 mg daily p.r.n. and sertraline 100 mg daily Denies si/hi (2) Asthma-COPD overlap syndrome: Code(s): J44.89 - Other specified chronic obstructive pulmonary disease Category: Medical Plan: Reports intermittent sob. she is not taking her Breo Ellipta inhaler because she is cared of trying a new medication. She was still having symptoms on her previous regimen. Encouraged to start the inhaler so she could cut down on the rescue inhaler usage (3) Hypertension: Code(s): I10 - Essential (primary) hypertension Category: Medical Qualifiers: Hypertension type: essential hypertension Qualified Code(s): I10 - Essential (primary) hypertension Plan: Seemed to be anxiety driven. Reinforced low-salt diet and discussed with the patient about controlling anxiety. Hydroxyzine was refilled for patient (4) Depression: Code(s): F32.9 - Major depressive disorder, single episode, unspecified Category: Medical Qualifiers: Depression Type: unspecified Qualified Code(s): F32.A - Depression, unspecified Plan: Encouraged CBT. Continue Wellbutrin 300 mg XL daily, sertraline 100 mg daily Denies SI/HI (5) Migraines: Comment: reviewed med use, food triggers and what to avoid Code(s): G43.909 - Migraine, unspecified, not intractable, without status migrainosus Category: Medical Qualifiers: Intractability: not intractable Migraine type: unspecified Status migrainosus presence: without status migrainosus Qualified Code(s): G43.909 - Migraine, unspecified, not intractable, without status migrainosus Plan: Recommended to patient to get magnesium 400 mg and B2 400 mg OTC. Discussed with the patient today the magnesium at bedtime. Medications: New hydroxyzine HCl 25 mg PO DAILY 30 tabs 3RF anxiety
== END 2024-09-01 15:00 | disposition home or self-care (01) ==
LOC: HO.HMCH 13:38
PROVIDERS: PCP Internal Medicine
DX: F41.9 Anxiety disorder, unspecified (principal); J44.89 Other specified chronic obstructive pulmonary disease; I10 Essential (primary) hypertension; F32.A Depression, unspecified; G43.909 Migraine, unspecified, not intractable, without status migrainosus

== ENCOUNTER → 2024-09-01 13:37 | Outpatient (BNVA) | payer OTHER, SELFPAY | PROVIDERS: PCP Internal Medicine | DX: F41.9 Anxiety disorder, unspecified (principal); J44.89 Other specified chronic obstructive pulmonary disease; I10 Essential (primary) hypertension; F32.A Depression, unspecified; G43.909 Migraine, unspecified, not intractable, without status migrainosus | CPT/HCPCS: 99212 ==

== ENCOUNTER 2024-09-08 10:12 | Outpatient (AMB) | payer OTHER, SELFPAY ==
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
[2024-09-08 10:51] VITALS: BMI 39.1
== END 2024-09-08 11:32 | disposition home or self-care (01) ==
LOC: HO.HVS 10:12
PROVIDERS: PCP Internal Medicine; Visit Provider Physician Assistant Surgical
DX: I83.11 Varicose veins of right lower extremity with inflammation (principal); I83.12 Varicose veins of left lower extremity with inflammation
CPT/HCPCS: 99214

== ENCOUNTER → 2024-09-08 10:12 | Outpatient (BNVA) | payer OTHER, SELFPAY | PROVIDERS: PCP Internal Medicine; Visit Provider Physician Assistant Surgical | DX: I83.11 Varicose veins of right lower extremity with inflammation (principal); I83.12 Varicose veins of left lower extremity with inflammation | CPT/HCPCS: 99212 ==

== ENCOUNTER 2024-09-17 09:23 | Outpatient (AMB) | payer OTHER, SELFPAY ==
[2024-09-17 09:25] VITALS: BP 116/74; PULSE 72; RESP 20; TEMP 36.3; O2SAT 99; BMI 39.3
--- NOTE | 2024-09-17 09:25 | A.OFFPC_ITS ---
Vital Signs 09/17/24 09:25 Height 5 ft 1 in Weight 208 lb 3.2 oz BMI 39.3 BP 116/74 Blood Pressure Location Lt brachial Position Sitting Respiration 20 Pulse 72 Pulse Source Pulse Oximeter Temp 97.3 F Temp Source Temporal Artery Scan Pulse Oximetry (%) 99 Oxygen Delivery Method Room Air Intake Visit Reasons: ear infection? Behavioral Health Technician Required: No Accompanied by: Daughter Allergies amoxicillin [AMOXICILLIN] Allergy (Intermediate, Verified 09/17/24 09:39) NAUSEA & VOMITING, stomach pain, vomiting, stomach upset topiramate [From TOPAMAX] Allergy (Intermediate, Verified 09/17/24 09:39) TREMORS, nausea and vomiting latex [LATEX] Allergy (Mild, Verified 09/17/24 09:39) RASH medroxyprogesterone [From PROVERA] Allergy (Mild, Verified 09/17/24 09:39) RASH lactose Allergy (Verified 09/17/24 09:39) bloating , diarrhea Medication List - Last Reconciled 09/17/24 by Charlotte Edwards PA-C acetaminophen (Tylenol) 650 mg PO Q6H PRN albuterol sulfate 90 mcg/actuation 2 inhalations inhalation Q6H PRN albuterol sulfate 2.5 mg (3 mL) inhalation Q6H PRN [BEDSIDE COMMODE As directed] bupropion HCl XL 300 mg PO DAILY dexlansoprazole (Dexilant) 60 mg PO DAILY@0630 diclofenac sodium 1% topical fluticasone furoate-vilanterol 200-25 mcg/dose (Breo Ellipta) 1 inh inhalation DAILY [FRONT-WHEELED WALKER As directed] gabapentin 400 mg PO TID 30 days hydrocortisone 1% 1 appl topical QID PRN hydroxyzine HCl 25 mg PO DAILY ibuprofen (IBU) 800 mg PO Q8H PRN 30 days labetalol 100 mg PO BID 90 days lancets (FreeStyle Lancets) 4 times/day linaclotide (Linzess) 290 mcg PO DAILY muinvi-jdahqnda-gigpnwe 36,000-114,000- 180,000 unit (Creon) 1 cap PO TIDWM lorazepam 1 mg PO DAILY PRN meloxicam mg PO DAILY PRN metoclopramide HCl (Reglan) 5 mg PO BID montelukast (Singulair) 10 mg PO BEDTIME naproxen mg PO PRN nebulizers (Compact Compressor Nebulizer) As directed ondansetron 4 mg PO Q8H PRN pyridoxine (vitamin B6) 100 mg PO DAILY 90 days sertraline 100 mg PO DAILY [TUB SEAT with BACK As directed] umeclidinium 62.5 mcg/actuation (Incruse Ellipta) 1 inh inhalation DAILY Tobacco use date assessed: 09/17/24 Dental Screening Dental Screen Date: 09/17/24 Did you have a dental visit in the last 12 months?: No Did you have a dental problem in the last 6 months where you did not have access to dental care?: No Was dental information given to patient?: Patient has dentist [facility] Medical History (Updated 09/17/24 @ 09:45 by Charlotte Edwards PA-C) Eczema Crushing injury of third toe of right foot Bilateral primary osteoarthritis of hip Obesity (BMI 30-39.9) Anxiety Benign essential hypertension Gallstones Thoracic back pain Depression Tension headache Myofascial pain Sacroiliac joint pain Post depression BMI 39.0-39.9,adult Trigger finger of left thumb Trigger finger of right thumb Insomnia Morbid obesity with BMI of 40.0-44.9, adult Smoker Carpal tunnel syndrome, bilateral Personal history of gestational diabetes Supervision of other high risk , antepartum Supervision of other normal PCOS (polycystic ovarian syndrome) control counseling Migraines Vulvar cyst Anxiety Hyperlipemia Fibromyalgia Rheumatoid arthritis Surgical History S/P laparoscopic cholecystectomy (03/06/23) H/O tubal ligation History of hip replacement, total History of esophagogastroduodenoscopy (EGD) History of removal of cyst History of tonsillectomy and adenoidectomy Family History Father Medical history unknown Mother Diabetes Hypertension Maternal Aunt Breast cancer Ovarian cancer Mental health disorder Maternal Grandmother Diabetes Hypertension Social History Household Members: Significant Other and Children Housing: House Alcohol intake: current Alcohol intake frequency: holidays/special occasions only Patient Tobacco Use Status: Former Tobacco user Tobacco use type: Cigarette e-Cigarette/Vaping Use: Never Used Second Hand Smoke Exposure: No Substance Use Type: Marijuana service: No Current occupational status: disabled Sexual orientation: Straight/Heterosexual Gender identity: Female Cognitive needs: No Hearing needs: No Vision needs: Yes (Glasses) Female Reproductive History Menstrual Age of Menarche: 8 Date of last menstrual period: 08/30/24 Questionnaire Thrive Questionnaire Date Thrive assessed: 09/17/24 I am a: Patient What is your living situation today?: I have a steady place to live Within the past 12 months, did the food you bought not last and you didn't have the money to get more?: Never true Within the past 12 months, did you worry whether your food would run out before you got money to buy more?: Never true Do you have trouble paying for medicines?: No Do you have trouble getting transportation to medical appointments?: No Do you have trouble paying your heating and electricity bill?: No Do you have trouble taking care of your child, family member or friend?: No Do you have trouble with day-to-day activities such as bathing, preparing meals, shopping, managing finances, etc.?: No Are you currently unemployed and looking for a job?: No Are you interested in more education?: No Please select the resources that you would like help with: None Currently or been in a relationship where the following occur: No concerns reported THRIVE Score: 0 STEPHANIE-7 AMB Questionnaire STEPHANIE-7 Date STEPHANIE - 7 assessed: 09/01/24 Source: Developed by Drs. Cuco Richards, Itzel Ordaz, Eliud Ladd and colleagues, with an educational lino from [employer]. Physical exam (Primary Care) Vital Signs: Last Vital Signs Temp 97.3 F 09/17/24 09:25 Pulse 72 09/17/24 09:25 Resp 20 09/17/24 09:25 BP 116/74 09/17/24 09:25 Pulse Ox 99 09/17/24 09:25 Oxygen Delivery Method Room Air 09/17/24 09:25 BMI result Body Mass Index 39.3 Tobacco/Smoking Status: Tobacco use Status Tobacco use date assessed 09/17/24 09/17/24 09:35 Patient Tobacco Use Status Former Tobacco user 09/17/24 09:35 Tobacco use type Cigarette 09/17/24 09:35 e-Cigarette/Vaping Use Never Used 09/17/24 09:35 Thrive Assessment: Date of Thrive Assessment Date Thrive assessed 09/17/24 09/17/24 09:35 Currently or been in a relationship where the following occur: No concerns reported Coding Level of Care Code Est Pt Level 3 (92665) Diagnoses Crushing injury of third toe of right foot S97.121A Eczema L30.9 Assessment & Plan Assessment & Plan (1) Crushing injury of third toe of right foot: Code(s): S97.121A - Crushing injury of right lesser toe(s), initial encounter Category: Medical Plan: An X-ray for the right third toe was ordered to evaluate for fracture. The patient is advised to proceed with the imaging promptly to develop a management plan based on results. (2) Eczema: Code(s): L30.9 - Dermatitis, unspecified Category: Medical Plan: Ointment rather than cream is prescribed due to better effectiveness in managing eczema-induced dryness. It is recommended to apply the ointment as needed for itchiness. The current management involves switching from hydrocortisone cream to an ointment due to its better moisture retention for dry skin. The ointment will be applied carefully to the outer ear canal. Hydrocortisone ointment aimed to control eczema is prescribed to be applied when itching occurs. Plan Plan Patient was informed and verbally consented to the use of an ambient scribe for clinic note documentation during this visit. 1. Possible Toe Injury An X-ray for the right third toe was ordered to evaluate for fracture. The patient is advised to proceed with the imaging promptly to develop a management plan based on results. 2. Eczema to b/l ear canal Ointment rather than cream is prescribed due to better effectiveness in managing eczema-induced dryness. It is recommended to apply the ointment as needed for itchiness. The current management involves switching from hydrocortisone cream to an ointment due to its better moisture retention for dry skin. The ointment will be applied carefully to the outer ear canal. Hydrocortisone ointment aimed to control eczema is prescribed to be applied when itching occurs. Discussion Notes I discussed with the patient the diagnoses of eczema to external ear canal, and we deliberated on transitioning to an ointment form to address the dry skin issues more effectively. I informed her about how ointment retains moisture better than cream, potentially improving symptom management. Additionally, we discussed the incident involving her right third toe injury. I recommended obtaining an X-ray to rule out a fracture and provided details on the process for obtaining this diagnostic test. We agreed that if symptoms persist or worsen, further evaluation would be considered. I also instructed her on the pro per application of the ointment to the ear canals to prevent further irritation and maintain hydration of the skin. Orders: Orders XR toe RT min 2V Today S97.121A - Crushing injury of right lesser toe(s), initial encounter Medications: New hydrocortisone 2.5% 1 appl topical BID-TID PRN 454 grams 1RF itching Scribe Plan - Not visible on output: History of Present Illness The patient is a 33-year-old female presenting with ear pain and possible toe injury. The bilateral ear pain has been exacerbated despite the use of hydrocortisone cream for likely external ear canal associated eczema, with no fever or nasal congestion reported. Prior ear infections have occurred, but not recently. Dry and irritated skin is evident, particularly in the outer ear canal. Regarding the toe injury, the patient describes dropping a phone on her right third toe, causing decreased mobility and severe sensation. The potential for fracture is noted, despite minimal swelling. Review of Systems - ENT: Reports bilateral ear pain without fever or nasal congestion. - Musculoskeletal: Reports inability to bend the right third toe and significant pain following trauma. Physical Exam Appearance: Alert. Oriented X3. No acute distress. Head: Normal external exam. Normocephalic. Atraumatic. Eyes: Pupils are equal, round, and reactive to light. Extraocular movements intact. Conjunctiva and sclera normal. Eyelids normal. Ears: External auditory canal shows irritation c/w with eczema not consistent with otitis externa. Tympanic membranes normal. No fever or nasal congestion reported. Throat: Pharynx normal. Uvula midline. Moist mucous membranes. Neck: Normal inspection. Neck supple. Full range of motion. No adenopathy. Cardiovascular: Normal heart rate and rhythm. Respiratory: No respiratory distress. Painless inspiration. Back: Full range of motion noted. Skin: Skin warm and dry. Normal skin color. Normal skin turgor. No rashes/lesions/lacerations noted. Extremities: Right third toe painful with limited movement, possible injury. Otherwise all other extremities exhibit normal range of motion nontender. Results - Tests and Diagnostics: An X-ray for the right third toe injury was discussed. Patient Instructions - Apply the prescribed hydrocortisone ointment to the outer ear canals as directed to manage dryness and itching. - Schedule and complete the X-ray for the right third toe as discussed. - Monitor symptoms and report any worsening of ear pain or other concerns. - Use the ointment whenever itchiness occurs, as it signifies a need for more application. - If the toe injury results in swelling or increased pain, seek further medical advice.
== END 2024-09-17 11:10 | disposition home or self-care (01) ==
LOC: HO.HMCH 09:24
PROVIDERS: PCP Internal Medicine; Visit Provider Physician Assistant Medical
DX: S97.121A Crushing injury of right lesser toe(s), initial encounter (principal); L30.9 Dermatitis, unspecified

== ENCOUNTER → 2024-09-17 09:23 | Outpatient (BNVA) | payer OTHER, SELFPAY | PROVIDERS: PCP Internal Medicine; Visit Provider Physician Assistant Medical | DX: N20.0 Calculus of kidney (principal); R10.9 Unspecified abdominal pain; L30.9 Dermatitis, unspecified; S97.121A Crushing injury of right lesser toe(s), initial encounter; X58.XXXA Exposure to other specified factors, initial encounter; Y93.9 Activity, unspecified; Y92.9 Unspecified place or not applicable; Y99.9 Unspecified external cause status | CPT/HCPCS: 81003; 99212 ==

== ENCOUNTER 2024-09-17 10:23 | Outpatient (AMB) | payer OTHER, SELFPAY ==
--- NOTE | 2024-09-17 10:34 | MHC.OFFVIS ---
Intake Visit Reasons: 6m/KUB Intake Note: Patient presents today for follow up on: KUB X-ray Imaging Completed: 04/09/24 Urology Medication: Vitamin B6, Tamsulosin Antibiotic Allergies: Amoxicillin Blood Thinners: None Pencil Inspector Required: No Accompanied by: Unknown Allergies amoxicillin [AMOXICILLIN] Allergy (Intermediate, Verified 09/17/24 11:11) NAUSEA & VOMITING, stomach pain, vomiting, stomach upset topiramate [From TOPAMAX] Allergy (Intermediate, Verified 09/17/24 11:11) TREMORS, nausea and vomiting latex [LATEX] Allergy (Mild, Verified 09/17/24 11:11) RASH medroxyprogesterone [From PROVERA] Allergy (Mild, Verified 09/17/24 11:11) RASH lactose Allergy (Verified 09/17/24 11:11) bloating , diarrhea Medication List - Last Reconciled 09/17/24 by ELIAN Pedro- acetaminophen (Tylenol) 650 mg PO Q6H PRN albuterol sulfate 90 mcg/actuation 2 inhalations inhalation Q6H PRN albuterol sulfate 2.5 mg (3 mL) inhalation Q6H PRN [BEDSIDE COMMODE As directed] bupropion HCl XL 300 mg PO DAILY dexlansoprazole (Dexilant) 60 mg PO DAILY@0630 diclofenac sodium 1% topical fluticasone furoate-vilanterol 200-25 mcg/dose (Breo Ellipta) 1 inh inhalation DAILY [FRONT-WHEELED WALKER As directed] gabapentin 400 mg PO TID 30 days hydrocortisone 1% 1 appl topical QID PRN hydrocortisone 2.5% 1 appl topical BID-TID PRN hydroxyzine HCl 25 mg PO DAILY ibuprofen (IBU) 800 mg PO Q8H PRN 30 days labetalol 100 mg PO BID 90 days lancets (FreeStyle Lancets) 4 times/day linaclotide (Linzess) 290 mcg PO DAILY fwggzf-wibwrzpn-pfjtxeq 36,000-114,000- 180,000 unit (Creon) 1 cap PO TIDWM lorazepam 1 mg PO DAILY PRN meloxicam mg PO DAILY PRN metoclopramide HCl (Reglan) 5 mg PO BID montelukast (Singulair) 10 mg PO BEDTIME naproxen mg PO PRN nebulizers (Compact Compressor Nebulizer) As directed ondansetron 4 mg PO Q8H PRN pyridoxine (vitamin B6) 100 mg PO DAILY 90 days sertraline 100 mg PO DAILY [TUB SEAT with BACK As directed] umeclidinium 62.5 mcg/actuation (Incruse Ellipta) 1 inh inhalation DAILY HPI Comments Details: Gabriella is a very pleasant 33-year-old female patient of Dr. Sherman. She has a past medical history of eczema, anxiety, hypertension, depression, headaches, obesity, carpal tunnel syndrome, PCOS, fibromyalgia, and rheumatoid arthritis. She presents to the office today for follow-up of her nephrolithiasis. In discussion with the patient today she reports noting over the last 2-4 days she has been experiencing left-sided flank pain associated with urinary urgency and frequency. However, she does endorse increased amounts of caffeine over the last few days. Of note, patient was last seen approximately [address] Rausch at which time recommendations were made for renal ultrasound however this was never completed. We discussed given history of nephrolithiasis in left-sided flank pain will obtain more recent imaging. We discussed bladder triggers/irritants. In office urinalysis results reviewed with the patient today negative leukocytes negative nitrates negative microscopic hematuria. We discussed importance of adequate hydration with water verses coffee and soda. She does have a previous history of surgical intervention including left-sided ESWL. She otherwise denies incontinence, nocturia, hematuria, dysuria, foul smelling urine, changes to urinary stream, fever, and or chills. Patient was informed and verbally consented to the use of an ambient scribe for clinic note documentation during this visit. Discussion Notes During the consultation, I discussed with the patient the importance of reducing soda and caffeine intake due to their impact on urinary symptoms and history of nephrolithiasis. These dietary changes are vital, given her history of nephrolithiasis and current pain. I explained the rationale for ordering an ultrasound, emphasizing its role in evaluating the current state of her renal system. The patient is keen to understand her conditions and agreed to these investigations and lifestyle modifications. [facility] Medical History Eczema Crushing injury of third toe of right foot Bilateral primary osteoarthritis of hip Obesity (BMI 30-39.9) Anxiety Benign essential hypertension Gallstones Thoracic back pain Depression Tension headache Myofascial pain Sacroiliac joint pain Post depression BMI 39.0-39.9,adult Trigger finger of left thumb Trigger finger of right thumb Insomnia Morbid obesity with BMI of 40.0-44.9, adult Smoker Carpal tunnel syndrome, bilateral Personal history of gestational diabetes Supervision of other high risk , antepartum Supervision of other normal PCOS (polycystic ovarian syndrome) control counseling Migraines Vulvar cyst Anxiety Hyperlipemia Fibromyalgia Rheumatoid arthritis Surgical History S/P laparoscopic cholecystectomy (03/06/23) H/O tubal ligation History of hip replacement, total History of esophagogastroduodenoscopy (EGD) History of removal of cyst History of tonsillectomy and adenoidectomy Family History Father Medical history unknown Mother Diabetes Hypertension Maternal Aunt Breast cancer Ovarian cancer Mental health disorder Maternal Grandmother Diabetes Hypertension Social History Household Members: Significant Other and Children Housing: House Alcohol intake: current Alcohol intake frequency: holidays/special occasions only Patient Tobacco Use Status: Former Tobacco user Tobacco use type: Cigarette e-Cigarette/Vaping Use: Never Used Second Hand Smoke Exposure: No Substance Use Type: Marijuana service: No Current occupational status: disabled Sexual orientation: Straight/Heterosexual Gender identity: Female Cognitive needs: No Hearing needs: No Vision needs: Yes (Glasses) Female Reproductive History Menstrual Age of Menarche: 8 Review of Systems Const All systems reviewed & are unremarkable except as noted in HPI and below Physical Exam Const General: cooperative, healthy appearing, comfortable, no acute distress, well developed, alert and awake Nutritional Appearance: overweight Orientation/consciousness: patient oriented x3 Limitations: no limitations HEENT Head: Yes normal to inspection, Yes normocephalic and Yes atraumatic Ears: hearing grossly normal bilaterally Eyes General: appearance normal, both eyes and all related structures Neck Neck: Yes normal visual inspection and Yes trachea midline Chest Chest palpation & inspection: normal inspection of the chest Resp Effort & Inspection: normal respiratory effort and able to speak in complete sentences Cardio Rate: regular rate GI Inspection: Yes normal to inspection General: Yes no CVA tenderness Back/Spine/Pelvis Back: no CVA tenderness Skin General skin exam: no rashes or lesions noted Neuro General: patient oriented x3 Extrem General: Yes normal to inspection Psych Appearance: grossly normal and well kempt Mental Status: mental status grossly normal Speech and movement: Normal speech and movement present and Clear speech present Affect: normal affect Attitude: cooperative Thought process: Normal thought process present Thought content: Normal thought content present Insight: Fair insight present (Psych) Judgement: Fair judgement present (Psych) Results AMB Urinalysis, Automated UA Leukoctes 0 Antonino/uL Last Edit by [employer] on 09/17/24 11:30 UA Nitrite Last Edit by [employer] on 09/17/24 11:30 UA Urobilinogen 0.2 mg/dL Last Edit by [employer] on 09/17/24 11:30 UA Protein 0 mg/dL Last Edit by [employer] on 09/17/24 11:30 UA pH 6.0 Last Edit by [employer] on 09/17/24 11:30 UA Blood 0 Elliott/uL Last Edit by [employer] on 09/17/24 11:30 UA Specific [place] 1.030 Last Edit by [employer] on 09/17/24 11:30 UA Ketone Last Edit by [employer] on 09/17/24 11:30 UA Bilirubin 0 mg/dL Last Edit by [employer] on 09/17/24 11:30 UA Glucose 0 mg/dL Last Edit by [employer] on 09/17/24 11:30 Results Reviewed Results Reviewed: Laboratory Last Values Urine pH (Auto) 6.0 09/17/24 11:29 Specific [place] (Auto) 1.030 09/17/24 11:29 Urine Protein (Auto) 0 mg/dL 09/17/24 11:29 Glucose (UA)(Auto) 0 mg/dL 09/17/24 11:29 Urine Blood (Auto) 0 Elliott/uL 09/17/24 11:29 Urine Bilirubin (Auto) 0 mg/dL 09/17/24 11:29 Urine Urobilinogen (Auto) 0.2 mg/dL 09/17/24 11:29 Leukocyte Esterase (Auto) 0 Antonino/uL 09/17/24 11:29 Assessment & Plan Assessment & Plan (1) Calculus of kidney: Code(s): N20.0 - Calculus of kidney Category: Medical (2) Flank pain: Code(s): R10.9 - Unspecified abdominal pain Category: Medical Plan In office urinalysis results reviewed with the patient today; as noted above. No CVA tenderness noted bilaterally. We discussed obtaining renal ultrasound for further assessment evaluation. We discussed bladder triggers/irritants. We discussed importance of hydration with water verses coffee and soda. We discussed worsening symptoms. Discussed adding 1 oz of lemon juice to water daily. Follow-up in 1-3 months with imaging to be completed prior; or sooner with any issues, concerns, and or questions. Orders: Orders AMB Urinalysis Automated Today Z13.9 - Encounter for screening, unspecified US renal BI Today N20.0 - Calculus of kidney Patient Instructions: The patient had an opportunity to ask questions regarding the treatment plan. All questions were answered. Physical exam, labs, and imaging were discussed and reviewed in detail. As well as risks, benefits, and discussion of treatment choices. No major barriers to understanding were identified. The patient expressed understanding and agreement with the above treatment plan. The patient was made aware they should contact our office by phone for worsening of their current condition, the appearance of new symptoms, or with any questions or concerns. Compliance is encouraged with any medications and follow up testing that is ordered. It is a privilege to be allowed the opportunity to participate in? your urological care.? Again, if you have any questions or concerns If you have any questions or concerns please do not hesitate to contact me. The office is [phone]. This note is constructed using voice recognition software. While every effort has been made to ensure accuracy survey crew chief errors may have been included. Yours sincerely, AYLEEN Pedro Coding Level of Care Code Est Pt Level 3 (08680) Diagnoses Calculus of kidney N20.0 Flank pain R10.9
== END 2024-09-17 11:11 | disposition home or self-care (01) ==
LOC: HO.HUSH 10:24
PROVIDERS: PCP Internal Medicine; Visit Provider Nurse Practitioner Family
DX: N20.0 Calculus of kidney (principal); R10.9 Unspecified abdominal pain; Z13.9 Encounter for screening, unspecified
CPT/HCPCS: 99213

== ENCOUNTER 2024-09-18 08:53 | Outpatient (REF) | payer OTHER, SELFPAY ==
--- NOTE | ~2024-09-18 | XR_ITS ---
EXAMINATION: XR TOES 2 OR MORE VIEWS RIGHT HISTORY: S97.121A - Crushing injury of right lesser toe(s), initial encounter COMPARISON: There are no prior studies available for comparison. FINDINGS: Three views of the right 3rd toe are submitted. Osseous mineralization is normal. There is no fracture or dislocation. The joint spaces are preserved. The soft tissues are unremarkable. XR/XR toe RT min 2V IMPRESSION: No evidence of fracture of the right 3rd toe. Electronically signed by: Cuco Tong MD 09/18/2024 02:17 PM EDT
== END 2024-09-18 08:54 | disposition home or self-care (01) ==
LOC: HO.LAB 08:53
PROVIDERS: PCP Physician Assistant Medical; Visit Provider Physician Assistant Medical
DX: S97.121A Crushing injury of right lesser toe(s), initial encounter (principal); X58.XXXA Exposure to other specified factors, initial encounter; Y93.9 Activity, unspecified; Y92.9 Unspecified place or not applicable; Y99.9 Unspecified external cause status
CPT/HCPCS: 73660

== ENCOUNTER → 2024-09-18 08:58 | Outpatient (BNV) | payer OTHER, SELFPAY | PROVIDERS: PCP Physician Assistant Medical; Visit Provider Radiology Diagnostic Radiology | DX: S97.121A Crushing injury of right lesser toe(s), initial encounter (principal) | CPT/HCPCS: 73660 ==

== ENCOUNTER 2024-10-07 09:02 | Outpatient (AMB) | payer OTHER, SELFPAY ==
--- NOTE | 2024-10-07 08:19 | A.OFFVIS_ITS ---
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 Forensic Structural Engineer: Forensic Structural Engineer offered & declined Accompanied by: Self / Same As Patient Allergies amoxicillin [AMOXICILLIN] Allergy (Intermediate, Verified 10/07/24 09:14) NAUSEA & VOMITING, stomach pain, vomiting, stomach upset topiramate [From TOPAMAX] Allergy (Intermediate, Verified 10/07/24 09:14) TREMORS, nausea and vomiting latex [LATEX] Allergy (Mild, Verified 10/07/24 09:14) RASH medroxyprogesterone [From PROVERA] Allergy (Mild, Verified 10/07/24 09:14) RASH lactose Allergy (Verified 10/07/24 09:14) bloating , diarrhea Medication List - Last Reconciled 10/07/24 by Esthela Lipscomb LPN acetaminophen (Tylenol) 650 mg PO Q6H PRN albuterol sulfate 90 mcg/actuation 2 inhalations inhalation Q6H PRN albuterol sulfate 2.5 mg (3 mL) inhalation Q6H PRN [BEDSIDE COMMODE As directed] bupropion HCl XL 300 mg PO DAILY dexlansoprazole (Dexilant) 60 mg PO DAILY@0630 diclofenac sodium 1% topical fluticasone furoate-vilanterol 200-25 mcg/dose (Breo Ellipta) 1 inh inhalation DAILY [FRONT-WHEELED WALKER As directed] gabapentin 400 mg PO TID 30 days hydrocortisone 1% 1 appl topical QID PRN hydrocortisone 2.5% 1 appl topical BID-TID PRN hydroxyzine HCl 25 mg PO DAILY ibuprofen (IBU) 800 mg PO Q8H PRN 30 days labetalol 100 mg PO BID 90 days lancets (FreeStyle Lancets) 4 times/day linaclotide (Linzess) 290 mcg PO DAILY sljrik-evgdfklx-dwmybjt 36,000-114,000- 180,000 unit (Creon) 1 cap PO TIDWM lorazepam 1 mg PO DAILY PRN meloxicam mg PO DAILY PRN metoclopramide HCl (Reglan) 5 mg PO BID montelukast (Singulair) 10 mg PO BEDTIME naproxen mg PO PRN nebulizers (Compact Compressor Nebulizer) As directed ondansetron 4 mg PO Q8H PRN pyridoxine (vitamin B6) 100 mg PO DAILY 90 days sertraline 100 mg PO DAILY [TUB SEAT with BACK As directed] umeclidinium 62.5 mcg/actuation (Incruse Ellipta) 1 inh inhalation DAILY HPI HPI asthma: Details: Gabriella is a pleasant 33 year-old female, never tobacco smoker, with underlying asthma COPD overlap syndrome, rheumatoid arthritis and fibromyalgia, under the care of rheumatology. At baseline she reports suboptimal control of respiratory symptoms on Symbicort, requiring albuterol MDI/neb frequently, continuing with dyspnea on exertion and chest tightness. Trelegy was sent in however not covered by insurance, therefore Breo and Incruse were prescribed but patient unable to tolerate DPI. She reports worsening dyspnea and chest tightness over the last few days, with dry cough, has a sick child at home with URI. She denies fevers or chest congestion. Endorses chills. She also notes significant life stressors that has been contributing to worsening anxiety, not taking antianxiety medications consistently. Of note, she is also scheduled for iron infusions early next month for [facility] through [facility] Medical History Eczema Crushing injury of third toe of right foot Bilateral primary osteoarthritis of hip Obesity (BMI 30-39.9) Anxiety Benign essential hypertension Gallstones Thoracic back pain Depression Tension headache Myofascial pain Sacroiliac joint pain Post depression BMI 39.0-39.9,adult Trigger finger of left thumb Trigger finger of right thumb Insomnia Morbid obesity with BMI of 40.0-44.9, adult Smoker Carpal tunnel syndrome, bilateral Personal history of gestational diabetes Supervision of other high risk , antepartum Supervision of other normal PCOS (polycystic ovarian syndrome) control counseling Migraines Vulvar cyst Anxiety Hyperlipemia Fibromyalgia Rheumatoid arthritis Surgical History S/P laparoscopic cholecystectomy (03/06/23) H/O tubal ligation History of hip replacement, total History of esophagogastroduodenoscopy (EGD) History of removal of cyst History of tonsillectomy and adenoidectomy Family History Father Medical history unknown Mother Diabetes Hypertension Maternal Aunt Breast cancer Ovarian cancer Mental health disorder Maternal Grandmother Diabetes Hypertension Social History Household Members: Significant Other and Children Housing: House Alcohol intake: current Alcohol intake frequency: holidays/special occasions only Patient Tobacco Use Status: Former Tobacco user Tobacco use type: Cigarette e-Cigarette/Vaping Use: Never Used Second Hand Smoke Exposure: No Substance Use Type: Marijuana service: No Current occupational status: disabled Sexual orientation: Straight/Heterosexual Gender identity: Female Cognitive needs: No Hearing needs: No Vision needs: Yes (Glasses) Female Reproductive History Menstrual Age of Menarche: 8 Review of Systems Const Denies excessive sweating and Denies night sweats Eyes Denies dry eyes and Reports itchy eyes ENT Reports Normal hearing present, Reports nasal congestion, Reports nasal discharge, Reports post nasal drip and Denies sore throat Card Denies chest pain, Denies chest pain at rest, Denies chest pain with activity, Denies claudication, Denies leg edema, Reports dyspnea on exertion, Denies orth opnea and Denies paroxysmal nocturnal dyspnea Resp Denies change in phlegm color, Denies chest congestion, Reports cough, Denies hemoptysis, Denies excessive phlegm production, Denies pain on inspiration, Denies pain with cough, Reports dyspnea on exertion, Denies stridor and Reports wheezing Musc Denies myalgias Neuro Reports Normal hearing present Endo Denies excessive sweating Teddy/Lymph Denies lymphadenopathy Aller/Immun Reports itchy eyes, Denies seasonal rhinorrhea and Reports wheezing Physical Exam Vital Signs: Last Vital Signs Pulse 66 10/07/24 09:09 BP 132/64 10/07/24 09:09 Pulse Ox 100 10/07/24 09:09 Oxygen Delivery Method Room Air 10/07/24 09:09 BMI result Body Mass Index 38.5 Const General: cooperative, healthy appearing, comfortable, no acute distress, well developed and alert Nutritional Appearance: obese Orientation/consciousness: patient oriented x3 Limitations: no limitations HEENT Head: Yes normal to inspection, Yes normocephalic and Yes atraumatic Ears: hearing grossly normal bilaterally and external ears normal Eyes General: appearance normal, both eyes and all related structures Eyelids: Yes eyelids normal Sclerae: sclerae normal EOM: EOMs intact bilaterally Neck Neck: Yes normal visual inspection and Yes no lymphadenopathy Lymphatic: no lymphadenopathy noted Chest Chest palpation & inspection: normal inspection of the chest Resp Effort & Inspection: normal respiratory effort, able to speak in complete sentences, no audible wheezes, no cough, no stridor, not tachypneic, no tripod positioning and no use of accessory muscles Auscultation: diminished lung sounds Cardio Jugular venous distension: no JVD Rate: regular rate Rhythm: regular rhythm Skin Other: warm, dry General skin exam: no rashes or lesions noted Neuro General: patient oriented x3 Cranial nerves: Yes Normal hearing present Cognition (Neuro): normal cognition Gait exam (Neuro): Normal gait present Extrem General: Yes normal to inspection, Yes capillary refill normal, Yes no clubbing, cyanosis or edema and Yes no pedal edema Psych Appearance: grossly normal and well kempt Speech and movement: Normal speech and movement present and Clear speech present Affect: normal affect Attitude: cooperative Thought process: Normal thought process present Thought content: Normal thought content present Insight: Good insight present (Psych) Judgement: Good judgement present (Psych) Assessment & Plan Assessment & Plan (1) Asthma-COPD overlap syndrome: Code(s): J44.89 - Other specified chronic obstructive pulmonary disease Category: Medical Plan Gabriella reports suboptimal control with Symbicort and albuterol MDI/neb. Attempted Breo and Incruse however could not tolerate DPI. Will trial Breztri. All questions answered and patient is in agreement of plan. Will follow up in 6-8 weeks or sooner if needed. Medications: New wnvssquzom-xmhclnoa-hfjagaepjb 160-9-4.8 mcg/actuation (Breztri Aerosphere) 2 inhalations inhalation BID 10.7 grams 3RF Discontinued fluticasone furoate-vilanterol 200-25 mcg/dose (Breo Ellipta) Discontinued Reason: Patient Completed Course 1 inh inhalation DAILY 60 ea 3RF umeclidinium 62.5 mcg/actuation (Incruse Ellipta) Discontinued Reason: Patient Completed Course 1 inh inhalation DAILY 30 ea 3RF Coding Level of Care Code Est Pt Level 3 (18052) Diagnoses Asthma-COPD overlap syndrome J44.89
[2024-10-07 09:09] VITALS: BP 132/64; PULSE 66; O2SAT 100; BMI 38.5
== END 2024-10-07 09:38 | disposition home or self-care (01) ==
LOC: HO.HPSW 09:03
PROVIDERS: PCP Internal Medicine; Visit Provider Nurse Practitioner Family
DX: J44.89 Other specified chronic obstructive pulmonary disease (principal)
CPT/HCPCS: 99213

== ENCOUNTER → 2024-10-07 09:02 | Outpatient (BNVA) | payer OTHER, SELFPAY | PROVIDERS: PCP Internal Medicine; Visit Provider Nurse Practitioner Family | DX: J44.89 Other specified chronic obstructive pulmonary disease (principal) | CPT/HCPCS: 99212 ==

== ENCOUNTER 2024-10-14 10:24 | Outpatient (AMB) | payer OTHER, SELFPAY ==
[2024-10-14 10:29] VITALS: BP 128/86; PULSE 65; O2SAT 96; BMI 38.0
--- NOTE | 2024-10-14 10:29 | MHC.PC.OV ---
Vital Signs 10/14/24 10:29 Height 5 ft 1 in Weight 201 lb BMI 38.0 BP 128/86 Blood Pressure Location Lt brachial Position Sitting Pulse 65 Pulse Source Pulse Oximeter Pulse Oximetry (%) 96 Oxygen Delivery Method Room Air Intake Visit Reasons: asthma Neurodiagnostic Tech Required: No Accompanied by: Self / Same As Patient Allergies amoxicillin [AMOXICILLIN] Allergy (Intermediate, Verified 10/14/24 11:08) NAUSEA & VOMITING, stomach pain, vomiting, stomach upset topiramate [From TOPAMAX] Allergy (Intermediate, Verified 10/14/24 11:08) TREMORS, nausea and vomiting latex [LATEX] Allergy (Mild, Verified 10/14/24 11:08) RASH medroxyprogesterone [From PROVERA] Allergy (Mild, Verified 10/14/24 11:08) RASH lactose Allergy (Verified 10/14/24 11:08) bloating , diarrhea Medication List - Last Reconciled 10/14/24 by Jarrod Sherman MD acetaminophen (Tylenol) 650 mg PO Q6H PRN albuterol sulfate 90 mcg/actuation 2 inhalations inhalation Q6H PRN albuterol sulfate 2.5 mg (3 mL) inhalation Q6H PRN [BEDSIDE COMMODE As directed] fsrkvhfeyl-notkxlqf-gnqqbtgmwl 160-9-4.8 mcg/actuation (Breztri Aerosphere) 2 inhalations inhalation BID bupropion HCl XL 300 mg PO DAILY dexlansoprazole (Dexilant) 60 mg PO DAILY@0630 diclofenac sodium 1% topical fluticasone propionate 220 mcg/actuation 2 puffs inhalation BID [FRONT-WHEELED WALKER As directed] gabapentin 400 mg PO TID 30 days glycopyrrolate-formoterol 9-4.8 mcg (Bevespi Aerosphere) 2 puffs inhalation BID hydrocortisone 1% 1 appl topical QID PRN hydrocortisone 2.5% 1 appl topical BID-TID PRN hydroxyzine HCl 25 mg PO DAILY ibuprofen (IBU) 800 mg PO Q8H PRN 30 days labetalol 100 mg PO BID 90 days lancets (FreeStyle Lancets) 4 times/day linaclotide (Linzess) 290 mcg PO DAILY furoly-mfuoaowr-rfubqha 36,000-114,000- 180,000 unit (Creon) 1 cap PO TIDWM lorazepam 1 mg PO DAILY PRN meloxicam mg PO DAILY PRN metoclopramide HCl (Reglan) 5 mg PO BID montelukast (Singulair) 10 mg PO BEDTIME naproxen mg PO PRN nebulizers (Compact Compressor Nebulizer) As directed ondansetron 4 mg PO Q8H PRN pyridoxine (vitamin B6) 100 mg PO DAILY 90 days sertraline 100 mg PO DAILY [TUB SEAT with BACK As directed] Tobacco use date assessed: 10/14/24 Dental Screening Dental Screen Date: 10/14/24 Did you have a dental visit in the last 12 months?: Yes Did you have a dental problem in the last 6 months where you did not have access to dental care?: No Was dental information given to patient?: Patient has dentist HPI asthma HPI Details Patient comes in today for her follow up visit States that she has been experiencing recurrent chest pains for the past 3 days Notes that the pain is mostly over her sternal area and that the pain increases when she takes deep breaths She has also been experiencing frequent flare ups of her asthma and pulmonary just changed her inhalers again lately She denies any fever or sore throat Denies any headaches or dizziness Denies any exertional chest pains No nausea/vomiting, no abdominal pain No change in bowel habits noted States that she's had on and off dysuria recently and would like to get an order for urine testing to be done at the hospital [facility] She has no follow up labs done recently but states that she did get her previous labs done in late June 2024 a few days after her last visit and would like to know if there were any problems seen on those labs [facility] Medical History (Updated 10/20/24 @ 02:46 by Jarrod Sherman MD) Vitamin D deficiency Eczema Crushing injury of third toe of right foot Bilateral primary osteoarthritis of hip Obesity (BMI 30-39.9) Anxiety Benign essential hypertension Gallstones Thoracic back pain Depression Tension headache Myofascial pain Sacroiliac joint pain Post depression BMI 39.0-39.9,adult Trigger finger of left thumb Trigger finger of right thumb Insomnia Morbid obesity with BMI of 40.0-44.9, adult Smoker Carpal tunnel syndrome, bilateral Personal history of gestational diabetes Supervision of other high risk , antepartum Supervision of other normal PCOS (polycystic ovarian syndrome) control counseling Migraines Vulvar cyst Anxiety Hyperlipemia Fibromyalgia Rheumatoid arthritis Surgical History S/P laparoscopic cholecystectomy (03/06/23) H/O tubal ligation History of hip replacement, total History of esophagogastroduodenoscopy (EGD) History of removal of cyst History of tonsillectomy and adenoidectomy Family History Father Medical history unknown Mother Diabetes Hypertension Maternal Aunt Breast cancer Ovarian cancer Mental health disorder Maternal Grandmother Diabetes Hypertension Social History Household Members: Significant Other and Children Housing: House Alcohol intake: current Alcohol intake frequency: holidays/special occasions only Patient Tobacco Use Status: Former Tobacco user Tobacco use type: Cigarette e-Cigarette/Vaping Use: Never Used Second Hand Smoke Exposure: No Substance Use Type: Marijuana service: No Current occupational status: disabled Sexual orientation: Straight/Heterosexual Gender identity: Female Cognitive needs: No Hearing needs: No Vision needs: Yes (Glasses) Female Reproductive History Menstrual Age of Menarche: 8 Questionnaire PHQ-9 Over the last 2 weeks, how often have you been bothered by any of the following problems? 1. Little interest or pleasure in doing things: more than half the days 2. Feeling down, depressed, or hopeless: more than half the days 3. Trouble falling or staying asleep, or sleeping too much: more than half the days 4. Feeling tired or having little energy: nearly every day 5. Poor appetite or overeating: more than half the days 6. Feeling bad about yourself - or that you are a failure or have let yourself or your family down: more than half the days 7. Trouble concentrating on things, such as reading the newspaper or watching television: nearly every day 8. Moving or speaking so slowly that other people could have noticed. Or the opposite - being so fidgety or restless that you have been moving around a lot more than usual: more than half the days 9. Thoughts that you would be better off or of hurting yourself in some way: not at all Total score: 18 Depression Screening Interpretation: Positive Depression Screening Follow-up: Existing condition and In treatment Depression Screening Done: Yes 26429 - PHQ-9 Billing: Yes Source: Developed by Drs. Cuco Richards, Itzel Ordaz, Eliud Ladd and colleagues, with an educational lino from [employer]. Thrive Questionnaire Date Thrive assessed: 10/14/24 I am a: Patient What is your living situation today?: I have a steady place to live Within the past 12 months, did the food you bought not last and you didn't have the money to get more?: Never true Within the past 12 months, did you worry whether your food would run out before you got money to buy more?: Sometimes True Do you have trouble paying for medicines?: No Do you have trouble getting transportation to medical appointments?: No Do you have trouble paying your heating and electricity bill?: No Do you have trouble taking care of your child, family member or friend?: No Do you have trouble with day-to-day activities such as bathing, preparing meals, shopping, managing finances, etc.?: No Are you currently unemployed and looking for a job?: No Are you interested in more education?: No Please select the resources that you would like help with: None Currently or been in a relationship where the following occur: No concerns reported THRIVE Score: 1 AUDIT C Alcohol Use Questionnaire (AUDIT-C) 1. How often do you have a drink containing alcohol?: Never 3. How often do you have six or more drinks on one occasion?: Never Total Score: 0 Score Reviewed/Action Taken: Yes STEPHANIE-7 AMB Questionnaire STEPHANIE-7 Date STEPHANIE - 7 assessed: 10/14/24 Feeling nervous, anxious, or on edge: 3 = Nearly every day Not being able to stop or control worryin = More than half the days Worrying too much about different things: 2 = More than half the days Trouble relaxin = Nearly every day Being so restless that it is hard to sit still: 3 = Nearly every day Becoming easily annoyed or irritable: 3 = Nearly every day Feeling afraid as if something awful might happen: 1 = Several days Total STEPHANIE-7 score (0-4 normal; 5-9 mild; 10-14 moderate; 15-21 severe): 17 Source: Developed by Cristobal Bassettet B.W. Orlin, Eliud Ladd and colleagues, with an educational lino from [employer]. Review of Systems Const Denies chills, Reports fatigue, Denies fever(s) and Denies headache(s) ENT Denies dysphagia, Denies dizziness, Denies otalgia, Denies headache(s), Denies neck pain, Denies odynophagia and Denies sore throat Card Reports chest pain (recurrent, over the sternal area, increased with deep breathing), Denies rapid heart rate, Denies palpitations and Reports dyspnea on exertion (mild) Resp Reports chest congestion (chest feels tight often), Reports cough (on and off - coughs up thick whitish to clear phlegm at times), Reports pain on inspiration (over the sternal area), Reports dyspnea on exertion (mild) and Reports wheezing (at times) GI Denies abdominal pain, Denies constipation, Denies dysphagia, Denies heartburn, Denies diarrhea, Denies nausea, Denies odynophagia and Denies vomiting Denies hematuria, Denies difficulty voiding, Reports dysuria (mild, on and off recently) and Denies urinary urgency Musc Details: (+) pain in both hands Reports back pain (on and off, over the lower back), Reports arthralgias (over the left hip - chronic), Denies neck pain, Reports numbness (on and off in the right middle and ring fingers) and Reports tingling (on and off in the right middle and ring fingers) Skin/Breast Denies rash Neuro Denies dizziness, Denies headache(s), Reports numbness (on and off in the right middle and ring fingers), Reports tingling (on and off in the right middle and ring fingers) and Denies paresthesias Psych Reports anxiety and Reports depression Endo Reports fatigue and Denies palpitations Teddy/Lymph Denies easy bruising Aller/Immun Reports wheezing (at times) Physical exam (Primary Care) Vital Signs: Last Vital Signs Pulse 65 10/14/24 10:29 BP 128/86 10/14/24 10:29 Pulse Ox 96 10/14/24 10:29 Oxygen Delivery Method Room Air 10/14/24 10:29 BMI result Body Mass Index 38.0 Tobacco/Smoking Status: Tobacco use Status Tobacco use date assessed 10/14/24 10/14/24 10:35 Patient Tobacco Use Status Former Tobacco user 10/14/24 10:35 Tobacco use type Cigarette 10/14/24 10:35 e-Cigarette/Vaping Use Never Used 10/14/24 10:35 PHQ-9: PHQ-9 Score PHQ-9: Total score 18 10/14/24 11:10 Depression Screening Interpretation: Positive Depression Screening Follow-up: Existing condition and In treatment Thrive Assessment: Date of Thrive Assessment Date Thrive assessed 10/14/24 10/14/24 10:35 Currently or been in a relationship where the following occur: No concerns reported Const General: no acute distress and alert HENMT Ears: TM's normal bilaterally and EAC's normal Throat: Yes posterior oropharynx normal and Yes tonsils normal (no TP congestion) Neck Neck: Yes supple and No lymphadenopathy Thyroid: Thyroid normal Resp Auscultation: no crackles, no rales, rhonchi (occasional ) throughout, no wheezes and diminished lung sounds (slightly) bilateral Cardio Rate: regular rate Rhythm: regular rhythm Heart sounds: no murmurs GI Palpation (GI): Soft to palpation and nontender Auscultation: normal bowel sounds General: Yes no CVA tenderness Back/Spine/Pelvis Back: no CVA tenderness Thoracic/Lumbar Spine: lumbar spinal tenderness (mild) Skin Rashes: no rashes Extrem General: Yes no clubbing, cyanosis or edema Results Reviewed Results Reviewed: Laboratory Tests 07/17/24 09:13 WBC 5.1 Hgb 10.7 L Hct 32.8 L Plt Count 305 Sodium 142 Potassium 4.0 Creatinine 0.63 Estimated GFR > 60 Fasting Glucose 92 Calcium 9.4 AST 17 ALT 15 Triglycerides 49 Cholesterol 157 LDL Cholesterol, Calc 105 H HDL Cholesterol 43 25-OH Vitamin D Total 12.7 L TSH 1.10 Coding Level of Care Code Est Pt Level 4 (30353) Diagnoses Asthma-COPD overlap syndrome J44.89 Bilateral hand pain M79.641; M79.642 Numbness and tingling in right hand R20.0; R20.2 Benign essential hypertension I10 Elevated LFTs R79.89 Bilateral primary osteoarthritis of hip M16.0 Gastroesophageal reflux disease without esophagitis K21.9 Esophagitis presence: without esophagitis Anemia, unspecified type D64.9 Anemia type: unspecified type Mid sternal chest pain R07.89 Migraine without status migrainosus, not intractable, unspecified migraine type G43.909 Intractability: not intractable Migraine type: unspecified Status migrainosus presence: without status migrainosus Vitamin D deficiency E55.9 Fibromyalgia M79.7 Dysuria R30.0 Insomnia, unspecified type G47.00 Insomnia type: unspecified Anxiety F41.9 Episode of recurrent major depressive disorder, unspecified depression episode severity F33.9 Depression Type: major depressive disorder Major depression recurrence: recurrent Active/Remission status: currently active Major depression episode severity: unspecified Obesity (BMI 30-39.9) E66.9 Additional Codes PHQ-9 - 97516 - PHQ-9 Billing: Yes ([id number]) Assessment & Plan Assessment & Plan (1) Asthma-COPD overlap syndrome: Code(s): J44.89 - Other specified chronic obstructive pulmonary disease Category: Medical Plan: Continue Breztri Aerosphere 160-9-4.8 mcg 2 inhalations BID, Stiolto Respimat 2.5-2.5 mcg 2 inhalations QD and Albuterol HFA 1 to 2 inhalations Q 6 hours PRN She used to be on Symbicort but reports inadequate control of her symptoms on the Rx She could not tolerate Breo and Incruse Ellipta (could not tolerate powdered formulations in general) Follow up with pulmonary as scheduled (2) Bilateral hand pain: Code(s): M79.641 - Pain in right hand; M79.642 - Pain in left hand Category: Medical Plan: Have advised patient again that her symptoms are suggestive of a median nerve neuropathy X-rays of both hands done back in May 2024 revealed (+) tiny osseous density adjacent to the left 5th MCP joint which could represent a fracture fragment. No evidence of fracture of the right hand. (+) hypoplastic proximal carpal bones bilaterally and there is widening of the scapholunate joints bilaterally which could represent old ligamentous injury Will also consider referring her for EMG and NCV of the right upper extremity for further evaluation if her symptoms get worse (3) Numbness and tingling in right hand: Code(s): R20.0 - Anesthesia of skin; R20.2 - Paresthesia of skin Category: Medical Plan: Have advised patient that her symptoms are suggestive of a median nerve neuropathy We will consider referring her for EMG and NCV of the right upper extremity for further evaluation if her symptoms continue to get worse (4) Benign essential hypertension: Code(s): I10 - Essential (primary) hypertension Category: Medical Plan: Reinforced low-sodium diet - goal is systolic BP of 120 mm or less Continue Labetalol 100 mg BID She also used to take Amlodipine 5 mg QD and Spironolactone 50 mg BID but apparently stopped taking these sometime in the past couple of years or so - patient herself does not remember exactly when or why she is no longer on these meds (5) Elevated LFTs: Code(s): R79.89 - Other specified abnormal findings of blood chemistry Category: Medical Plan: Her LFTs (especially her ALT) were previously elevated back in May 2023 but have returned back to normal since and have remained normal on her labs done back in late June 2024 They were likely due to hepatosteatosis, as confirmed on her abdominal US done back in June 2023 Will continue to monitor her LFTs regularly (6) Bilateral primary osteoarthritis of hip: Code(s): M16.0 - Bilateral primary osteoarthritis of hip Category: Medical Plan: S/P right hip arthroplasty in July 2022 - states that her right hip has been doing well since her surgery She also underwent total left hip arthroplastly with [facility] last year on 10/24/2023 - states that her surgery and recovery went well and she now has hardly any significant issues with both hips Follow up with orthopedics as scheduled (7) GERD (gastroesophageal reflux disease): Code(s): K21.9 - Gastro-esophageal reflux disease without esophagitis Category: Medical Qualifiers: Esophagitis presence: without esophagitis Qualified Code(s): K21.9 - Gastro-esophageal reflux disease without esophagitis Plan: Dietary restrictions reinforced Continue Dexlansoprazole 60 mg QD (8) Anemia: Code(s): D64.9 - Anemia, unspecified Category: Medical Qualifiers: Anemia type: unspecified type Qualified Code(s): D64.9 - Anemia, unspecified Plan: She is still anemic on her CBC done back in June 2024, with H/H at 10.7/32.8 respectively Continue IV Iron infusions PRN Follow up with hematology as scheduled Will continue to monitor her CBC regularly (9) Mid sternal chest pain: Code(s): R07.89 - Other chest pain Category: Medical Plan: Have advised/reassured patient that her recent recurrent sternal chest pains are most likely musculoskeletal pain/costochondritis as the pain is often reproducible on exam when pressure is applied over the sternum She can try applying some warm compress over her sternal area PRN for symptomatic relief (10) Migraines: Comment: reviewed med use, food triggers and what to avoid Code(s): G43.909 - Migraine, unspecified, not intractable, without status migrainosus Category: Medical Qualifiers: Intractability: not intractable Migraine type: unspecified Status migrainosus presence: without status migrainosus Qualified Code(s): G43.909 - Migraine, unspecified, not intractable, without status migrainosus Plan: Continue Acetaminophen 325 mg every 4 to 6 hours as needed for headaches Reinforced avoidance of migraine triggers Will need to consider prophylactic Tx again if her headaches persist or get worse (11) Vitamin D deficiency: Code(s): E55.9 - Vitamin D deficiency, unspecified Category: Medical Plan: Patient is advised that her Vitamin D level was very low on her labs done back in June 2024 Will start her on Vitamin D3 2000 units QD (12) Fibromyalgia: Code(s): M79.7 - Fibromyalgia Category: Medical Plan: Patient is encouraged again on regular exercise and physical activity to help manage her fibromyalgia symptoms Continue Gabapentin 400 mg TID (13) Dysuria: Code(s): R30.0 - Dysuria Category: Medical Plan: Per request, will send patient to the lab to get her U/A done EFRAIN for further evaluation She is encouraged to increase her oral fluid intake to help with her symptoms (14) Insomnia: Code(s): G47.00 - Insomnia, unspecified Category: Medical Qualifiers: Insomnia type: unspecified Qualified Code(s): G47.00 - Insomnia, unspecified Plan: Sleep hygiene reinforced Continue OTC Unisom 25 mg Q HS PRN (15) Anxiety: Code(s): F41.9 - Anxiety disorder, unspecified Category: Medical Plan: She is on Bupropion and Sertraline; continue Hydroxyzine 25 mg PRN (16) Depression: Code(s): F32.A - Depression, unspecified Category: Medical Qualifiers: Depression Type: major depressive disorder Major depression recurrence: recurrent Active/Remission status: currently active Major depression episode severity: unspecified Qualified Code(s): F33.9 - Major depressive disorder, recurrent, unspecified Plan: Continue Sertraline 100 mg QD and Bupropion XL 300 mg Q AM Follow up with psychiatry as scheduled (17) Obesity (BMI 30-39.9): Code(s): E66.9 - Obesity, unspecified Category: Medical Plan: Reinforced diet/exercise as tolerated/lose weight Plan To return in 4 months for her next annual physical examination Will have patient again recheck her labs in 4 months and she is instructed to try to get these done JUST BEFORE she returns in 4 months' time Orders: Orders UA CC w/rflx Micro + Cult 10/14/24 R30.0 - Dysuria Lipid Panel 4 Months E78.00 - Pure hypercholesterolemia, unspecified, Z00.00 - Encounter for general adult medical examination without abnormal findings Complete Blood Count Auto Diff 4 Months D64.9 - Anemia, unspecified, Z00.00 - Encounter for general adult medical examination without abnormal findings Comprehensive [place]. Panel Fast 4 Months E78.00 - Pure hypercholesterolemia, unspecified, Z00.00 - Encounter for general adult medical examination without abnormal findings TSH reflex Free T4 4 Months E78.00 - Pure hypercholesterolemia, unspecified, Z00.00 - Encounter for general adult medical examination without abnormal findings UA CC w/rflx Micro + Cult 4 Months R30.0 - Dysuria, Z00.00 - Encounter for general adult medical examination without abnormal findings Vitamin D 25-OH Total 4 Months E55.9 - Vitamin D deficiency, unspecified, Z00.00 - Encounter for general adult medical examination without abnormal findings Vitamin B12 and Folate 4 Months E53.8 - Deficiency of other specified B group vitamins, Z00.00 - Encounter for general adult medical examination without abnormal findings Hemoglobin A1c 4 Months E16.2 - Hypoglycemia, unspecified, Z00.00 - Encounter for general adult medical examination without abnormal findings Medications: New cholecalciferol (vitamin D3) 50 mcg PO DAILY 90 days 90 caps 3RF E55.9 - Vitamin D deficiency, unspecified
== END 2024-10-14 11:18 | disposition home or self-care (01) ==
LOC: HO.HMCH 10:25
PROVIDERS: PCP Internal Medicine; Visit Provider Internal Medicine
DX: J44.89 Other specified chronic obstructive pulmonary disease (principal); M79.641 Pain in right hand; M79.642 Pain in left hand; R20.0 Anesthesia of skin; R20.2 Paresthesia of skin; I10 Essential (primary) hypertension; R79.89 Other specified abnormal findings of blood chemistry; M16.0 Bilateral primary osteoarthritis of hip; K21.9 Gastro-esophageal reflux disease without esophagitis; D64.9 Anemia, unspecified; R07.89 Other chest pain; G43.909 Migraine, unspecified, not intractable, without status migrainosus

== ENCOUNTER 2024-10-14 10:24 | Outpatient (REF) | payer OTHER, SELFPAY ==
[2024-10-14 12:43] LABS: Appearance Urine Clear; Color Urine Yellow; Glucose Urine UA Negative (Negative); Leukocyte Esterase Urine Small (1+) (Negative); Nitrite Urine Negative (Negative); Specific Gravity - Urine >= 1.030 (1.005-1.025); UMIC TRIGGER UACC YES; Urine Blood Negative (Negative); Urine Ketones Trace mg/dL (Negative); Urine Protein Trace mg/dL (Neg-Trace)
[2024-10-14 12:49] LABS: Bacteria Urine 1+ (None Seen); RBC Urine 0-2 /HPF (0-2); UACC Culture Trigger YES
== END 2024-10-14 10:25 | disposition home or self-care (01) ==
LOC: HO.LAB 10:24
PROVIDERS: PCP Internal Medicine; Visit Provider Internal Medicine
DX: J44.89 Other specified chronic obstructive pulmonary disease (principal); M79.641 Pain in right hand; M79.642 Pain in left hand; R20.0 Anesthesia of skin; R20.2 Paresthesia of skin; I10 Essential (primary) hypertension; R79.89 Other specified abnormal findings of blood chemistry; M16.0 Bilateral primary osteoarthritis of hip; K21.9 Gastro-esophageal reflux disease without esophagitis; D64.9 Anemia, unspecified; R07.89 Other chest pain; G43.909 Migraine, unspecified, not intractable, without status migrainosus; E55.9 Vitamin D deficiency, unspecified; M79.7 Fibromyalgia; R30.0 Dysuria; G47.00 Insomnia, unspecified; F41.9 Anxiety disorder, unspecified; F33.9 Major depressive disorder, recurrent, unspecified; E66.9 Obesity, unspecified; Z68.38 Body mass index [BMI] 38.0-38.9, adult; Z79.899 Other long term (current) drug therapy
CPT/HCPCS: 81001; 87086; 96127; 99212

== ENCOUNTER 2024-11-03 12:19 | Emergency (ER) | payer OTHER, SELFPAY ==
--- NOTE | ~2024-11-03 | CT_ITS ---
EXAMINATION: CT HEAD WITHOUT CONTRAST (STROKE PROTOCOL) CLINICAL INFORMATION: Stroke protocol. COMPARISON: March 24, 2024. TECHNIQUE: Contiguous axial imaging was performed from the skull base to vertex without intravenous administration of contrast. This CT examination was performed using dose optimization techniques as appropriate, variously including the following: *Automated exposure control *Adjustment of mA and/or kV according to patient size (this includes techniques or standardized protocols for targeted exams where dose is matched to indication/reason for exam; i.e. extremities or head) *Use of iterative reconstruction technique FINDINGS: No acute intracranial hemorrhage or mass effect midline shift hydrocephalus or herniation. Asymmetric prominent right lateral ventricle, congenital variant. Posterior cranial fossa contents demonstrated no gross mass effect or midline shift. The craniocervical junction demonstrates normal position of the cerebellar tonsils. Sellar/suprasellar region demonstrated no gross masses or hemorrhage. The bony calvarium is intact. No air-fluid levels in the paranasal sinuses. Tympanic cavities and mastoid cells are aerated. Metallic piercing in the tongue. CT/CT head for STROKE IMPRESSION: No acute intracranial hemorrhage. No acute brain abnormality by CT. This critical result was discussed with the emergency physician Dr. Princess Klely at 12:40 PM on November 03, 2024.. It was ascertained that the content and urgency of the report was understood at the time of direct communication. Electronically signed by: José Miguel Wynn MD 11/03/2024 12:42 PM EDT
--- NOTE | ~2024-11-03 | CT_ITS ---
EXAMINATION: CT ANGIOGRAM HEAD AND NECK CLINICAL INFORMATION: Left-sided weakness, stroke protocol. COMPARISON: No prior CT angiography. Noncontrast head CT 11/03/2024. TECHNIQUE: CTA head and neck performed by test bolus sequences and head and neck intravenous bolus administration 70 mL of Omnipaque 350. Helical imaging was performed in the axial plane from the aortic arch to the skull vertex. The data was processed at the cytotechnologist/histotechnologist's workstation for generation of MIP sequences. Angled MIPs and volume rendered reformatted images were also generated at an offline 3D workstation. Stenoses are assessed in accordance with NASCET criteria unless otherwise indicated. This CT examination was performed using dose optimization techniques as appropriate, variously including the following: *Automated exposure control *Adjustment of mA and/or kV according to patient size (this includes techniques or standardized protocols for targeted exams where dose is matched to indication/reason for exam; i.e. extremities or head) *Use of iterative reconstruction technique FINDINGS: NECK CTA: -AORTIC ARCH: Normal in caliber. Mild atheromatous calcification. Three-vessel branching pattern. -GREAT VESSEL ORIGINS: Widely patent. No stenosis. -RIGHT COMMON CAROTID ARTERY: Normal in course and caliber to the level of the bifurcation. -CERVICAL RIGHT INTERNAL CAROTID ARTERY: Normal opacification without focal stenosis or occlusion. -LEFT COMMON CAROTID ARTERY: Normal in course and caliber to the level of the bifurcation. -CERVICAL LEFT INTERNAL CAROTID ARTERY: Normal opacification without focal stenosis or occlusion. -CERVICAL RIGHT VERTEBRAL ARTERY: Nondominant. Patent origin. Normal in course and caliber into the skull base. -CERVICAL LEFT VERTEBRAL ARTERY: Dominant. Patent origin. Normal in course and caliber into the skull base. OTHER, SOFT TISSUES: -No lymphadenopathy or mass. No abnormal fluid collection or soft tissue swelling. -Normal thyroid. -Imaged superior mediastinal structures normal. -Imaged lung apices clear. CTA OF THE BRAIN: -INTRACRANIAL INTERNAL CAROTID ARTERIES: Calcific atherosclerotic disease of the intracranial internal carotid arteries without occlusion or flow-limiting stenosis. -RIGHT ANTERIOR CEREBRAL ARTERY: Normal A1 segment.. Normal arborization of the distal segments. -LEFT ANTERIOR CEREBRAL ARTERY: Normal A1 segment.. Normal arborization of the distal segments. -ANTERIOR COMMUNICATING ARTERY: Normal. -RIGHT MIDDLE CEREBRAL ARTERY: Normal M1 segment of the MCA without focal stenosis or occlusion. Normal bifurcation. Normal arborization of the distal segments. -LEFT MIDDLE CEREBRAL ARTERY: Normal M1 segment of the MCA without focal stenosis or occlusion. Normal bifurcation. Normal arborization of the distal segments. -RIGHT VERTEBRAL ARTERY V4: Normal in course and caliber. -LEFT VERTEBRAL ARTERY V4: Normal in course and caliber. -BASILAR ARTERY: Normal without focal stenosis or occlusion. Normal appearance of the proximal superior cerebellar arteries. Normal basilar tip. -RIGHT POSTERIOR CEREBRAL ARTERY: The P1 segment is diminutive. origin of the CABLE BRAIDER with robust opacification of the posterior communicating artery. Normal opacification of the distal CABLE BRAIDER segments. -LEFT POSTERIOR CEREBRAL ARTERY: Normal P1 segment. Normal opacification of the distal CABLE BRAIDER segments. -POSTERIOR COMMUNICATING ARTERIES: Well seen bilaterally. Normal opacification of the superior sagittal, straight, transverse, and sigmoid sinuses. No venous thrombosis. No space-occupying hemorrhage or definite evolving infarct. CT/CT angio head neck STROKE IMPRESSION: CTA NECK: 1. There is no evidence of significant stenosis, dissection, occlusion, or aneurysm in the major cervical arterial vasculature. CTA HEAD: 1. There is no evidence of vascular occlusion, significant stenosis, dissection, or aneurysm in the major intracranial arterial vasculature. 2. The major cortical and dural venous sinuses are patent. 3. There is no evolving ischemic infarct or space occupying hemorrhage. Electronically signed by: Virgilio Scruggs MD 11/03/2024 01:22 PM EDT
--- NOTE | 2024-11-03 12:29 | ECG_ITS ---
Test Reason : STROKE Blood Pressure : */* mmHG Vent. Rate : 55 BPM Atrial Rate : 55 BPM P-R Int : 144 ms QRS Dur : 86 ms QT Int : 436 ms P-R-T Axes : 23 30 5 degrees QTcB Int : 417 ms Sinus bradycardia Otherwise normal ECG When compared with ECG of 04-Aug-2024 09:32, No significant change was found Referred By: Princess Kelly Electronically Signed By: Tristin Ortiz
--- NOTE | 2024-11-03 12:33 | ED_ITS ---
HPI - General Adult General Chief complaint: Neuro Symptoms/Deficit Stated complaint: ?STROKE,L WEAK,SLURR FROM DR GUZMAN,PT C/O NUMB MOUTH Time Seen by Provider: 11/03/24 12:38 Source: patient and EMS Mode of arrival: EMS Limitations: no limitations History of Present Illness ED Provider: DR. Kelly HPI narrative: 33-year-old female history of anxiety came in from a doctor office for evaluation of anxiety, patient was at a doctor office for routine daughter's checkup checkup when she started to complain of numbness around her mouth patient become staring and not responsive appropriately, and patient is unable to talk feel stiffness around her jaws area, patient had similar presentation that require hospitalization and patient ultimately was diagnosed with anxiety. 15;10 patient now is calm, able to took and provide history, stated that patient was talking to her therapist before having the daughter's appointment that made her anxious and precipitated her symptoms at the doctor office. Patient stated that her typical presentation for anxiety and panic attack that her jaws lock and can not communicate with people. Related Data Home Medications ?Medication ?Instructions ?Recorded ?Confirmed sertraline 100 mg tablet 100 mg PO DAILY 08/22/20 10/14/24 acetaminophen 325 mg tablet 650 mg PO Q6H PRN Pain 12/29/23 10/14/24 (Tylenol) bupropion HCl 300 mg 24 hr tablet, 300 mg PO DAILY 12/29/23 10/14/24 extended release dexlansoprazole 60 mg 60 mg PO DAILY@0630 12/29/23 10/14/24 capsule,biphase delayed release (Dexilant) linaclotide 290 mcg capsule 290 mcg PO DAILY 12/29/23 10/14/24 (Linzess) nxijsg-euvqnerp-ckaokob 1 cap PO TIDWM 12/29/23 10/14/24 36,000-114,000-180,000 unit capsule,delay rel (Creon) lorazepam 1 mg tablet 1 mg PO DAILY PRN Anxiety 12/29/23 10/14/24 metoclopramide HCl 5 mg tablet 5 mg PO BID 12/29/23 10/14/24 (Reglan) diclofenac sodium 1 % topical gel topical 09/01/24 10/14/24 meloxicam 15 mg tablet mg PO DAILY PRN 09/01/24 10/14/24 naproxen 500 mg tablet mg PO PRN 09/01/24 10/14/24 Previous Rx's ?Medication ?Instructions ?Recorded lancets 28 gauge (FreeStyle #100 ea 06/27/20 Lancets) BEDSIDE COMMODE #1 ea 05/14/22 FRONT-WHEELED WALKER #1 ea 05/14/22 TUB SEAT with BACK #1 ea 05/14/22 gabapentin 400 mg capsule 400 mg PO TID 30 days #90 caps 10/17/22 nebulizers (Compact Compressor #1 ea 02/28/23 Nebulizer) pyridoxine (vitamin B6) 100 mg 100 mg PO DAILY 90 days #90 tabs 07/09/23 tablet ibuprofen 800 mg tablet (IBU) 800 mg PO Q8H PRN pain/headaches 03/04/24 30 days #90 tabs hydrocortisone 1 % topical cream 1 appl topical QID PRN itching 05/21/24 #28.35 grams ondansetron 4 mg disintegrating 4 mg PO Q8H PRN nausea and 05/27/24 tablet vomiting #20 tabs labetalol 100 mg tablet 100 mg PO BID 90 days #180 tabs 05/29/24 montelukast 10 mg tablet 10 mg PO BEDTIME #90 tabs 07/06/24 (Singulair) hydroxyzine HCl 25 mg tablet 25 mg PO DAILY anxiety #30 tabs 09/01/24 hydrocortisone 2.5 % topical 1 appl topical BID-TID PRN itching 09/17/24 ointment #454 grams budesonide 160 mcg-glycopyr 9 2 inh inhalation BID #10.7 grams 10/07/24 mcg-formot 4.8 mcg/actuation HFA inhaler (Breztri Aerosphere) fluticasone propionate 220 2 puff inhalation BID #12 grams 10/13/24 mcg/actuation HFA aerosol inhaler glycopyrrolate 9 mcg-formoterol 2 puff inhalation BID #10.7 grams 10/13/24 4.8 mcg HFA aerosol inhaler (Bevespi Aerosphere) albuterol sulfate 2.5 mg/3 mL 2.5 mg (3 mL) inhalation Q6H PRN 10/14/24 (0.083 %) solution for nebulization Shortness Of Breath Or Wheezing #180 mL albuterol sulfate 90 mcg/actuation 2 inh inhalation Q6H PRN shortness 10/14/24 breath activated powder inhaler of breath or wheezing #1 ea cholecalciferol (vitamin D3) 50 50 mcg PO DAILY 90 days #90 caps 10/14/24 mcg (2,000 unit) capsule tiotropium 2.5 mcg-olodaterol 2.5 2 puff inhalation DAILY #4 grams 10/14/24 mcg/actuation mist for inhalation (Stiolto Respimat) Allergies Allergy/AdvReac Type Severity Reaction Status Date / Time amoxicillin [AMOXICILLIN] Allergy Intermediate NAUSEA & Verified 11/03/24 13:12 VOMITING, stomach pain, vomiting, stomach upset topiramate [From TOPAMAX] Allergy Intermediate TREMORS, Verified 11/03/24 13:12 nausea and vomiting latex [LATEX] Allergy Mild RASH Verified 11/03/24 13:12 medroxyprogesterone Allergy Mild RASH Verified 11/03/24 13:12 [From PROVERA] lactose Allergy bloating , Verified 11/03/24 13:12 diarrhea Review of Systems 2 Review of Systems: all other systems are reviewed and are negative Constitutional: Reports as per HPI and Reports no additional constitutional complaints Eyes: Reports as per HPI and Reports no additional eye complaints Reports system reviewed and no additional complaints, except as documented Cardiovascular: Reports as per HPI and Reports no additional cardiovascular complaints Respiratory: Reports as per HPI and Reports no additional respiratory complaints Gastrointestinal: Reports as per HPI and Reports no additional gastrointestinal complaints Genitourinary: Reports no additional female genitourinary complaints Musculoskeletal: Reports no additional musculoskeletal complaints Skin/Breast: Reports system reviewed and no additional complaints, except as docu Psychiatric: Reports no additional psychiatric complaints Endocrine: Reports no additional endocrine complaints Hematologic/Lymphatic: Reports no additional hematologic/lymphatic complaints Allergic/Immunologic: Reports no additional allergic/immunologic complaints Reports system reviewed and no additional complaints, except as documented and Reports Abnormal speech present [facility] Past Medical History Medical History Vitamin D deficiency Eczema Crushing injury of third toe of right foot Bilateral primary osteoarthritis of hip Obesity (BMI 30-39.9) Anxiety Benign essential hypertension Gallstones Thoracic back pain Depression Tension headache Myofascial pain Sacroiliac joint pain Post depression BMI 39.0-39.9,adult Trigger finger of left thumb Trigger finger of right thumb Insomnia Morbid obesity with BMI of 40.0-44.9, adult Smoker Carpal tunnel syndrome, bilateral Personal history of gestational diabetes Supervision of other high risk , antepartum Supervision of other normal PCOS (polycystic ovarian syndrome) control counseling Migraines Vulvar cyst Anxiety Hyperlipemia Fibromyalgia Rheumatoid arthritis Surgical History S/P laparoscopic cholecystectomy (03/06/23) H/O tubal ligation History of hip replacement, total History of esophagogastroduodenoscopy (EGD) History of removal of cyst History of tonsillectomy and adenoidectomy Family History Family History Father Medical history unknown Mother Diabetes Hypertension Maternal Aunt Breast cancer Ovarian cancer Mental health disorder Maternal Grandmother Diabetes Hypertension Social History Social History Household Members: Significant Other and Children Housing: House Alcohol intake: current Alcohol intake frequency: holidays/special occasions only Patient Tobacco Use Status: Former Tobacco user Tobacco use type: Cigarette Smoked in Last 30 Days: No e-Cigarette/Vaping Use: Never Used Second Hand Smoke Exposure: No Use of substances other than those prescribed or required for medical reasons: Yes Substance Use Type: Marijuana Advance Directives: No Advance Directives Information Provided: Yes Do you have a plan to hurt others: No Plan service: No Current occupational status: disabled Sexual orientation: Straight/Heterosexual Gender identity: Female Cognitive needs: No Hearing needs: No Vision needs: Yes (Glasses) Physical Exam ED Vital Signs: Vital Signs - 24 hr 11/03/24 13:10 11/03/24 13:30 Temperature 98.4 F 98.0 F Pulse Rate 60 61 Respiratory Rate 18 18 Blood Pressure 176/85 H 137/51 L Pulse Oximetry 98 100 Oxygen Delivery Method Room Air Room Air BMI result Body Mass Index 38.1 Vital signs have been reviewed and appear to be correct. Blood pressure elevated. Heart rate normal. Respiratory rate normal. Temperature normal. Oxygen saturation normal. Appearance: Alert. Oriented X3. No acute distress. Head: Normal external exam. Normocephalic. Atraumatic. No Marks signs noted. No raccoon eyes noted Eyes: PERRLA. EOMI. Conjunctiva and sclera normal. Eyelids normal. ENT: TM's Normal. Pharynx normal. Uvula midline. Moist mucous membranes. No trismus noted. No drooling noted. No muffled voice noted. Neck: Normal inspection. Neck supple. FROM. No adenopathy. Thyroid Normal. No meningeal signs. No neck mass noted. CVS: Normal heart rate and rhythm. Heart sound normal. No murmurs noted. Pulses normal throughout. Respiratory: No respiratory distress. Painless inspiration. Breath sounds normal. No wheezes/rales/rhonchi noted. Chest nontender. No accessory muscle usage noted or decreased air movement noted. Abdomen: Soft and nontender. Bowel sounds normal in all 4 quadrants. No distention noted. No organomegaly noted. No visible injury noted. Back: No CVA tenderness. Full range of motion noted. Skin: Skin warm and dry. Normal skin color. Normal skin turgor. No rashes/lesions/lacerations noted. Extremities: No lower extremity edema. Extremities exhibit normal range of motion. Extremities nontender. Neuro: Mental status: Normal attention, orientation, memory, and affect. Cranial nerves: Pupils are equal, round and reactive to light, EOMI, visual gomez are fall, face is symmetric, facial sensations are normal. Motor examination normal muscle tone, strength to 4 extremities. DTR are +2, planter's are flexor. Sensory exam; normal coordination, no ataxia, gait stable. Cerebellar exam: Coeqjy-pw-hjbe and lyhj-dv-ywpc is normal. Extrapyramidal system: No tremors, no rigidity with normal facial expressions. Pronator drift not present NIH Stroke Scale Time: 12:37 Level of Consciousness: Alert Level of Consciousness Questions: Answers both questions correctly Level of Consciousness Commands: Performs both tasks correctly Best Gaze: Normal Visual: No visual loss Facial Palsy: Normal Motor Arm (Right): No drift Motor Arm (Left): No drift Motor Leg (Right): No drift Motor Leg (Left): No drift Limb Ataxia: Absent Sensory: Normal Best Language: No aphasia Dysarthia: Normal Extinction and Inattention: No abnormality Score: 0 Course Reevaluation(s) Reevaluation #1: transient neurological symptoms after patient got anxious, patient stated that her normal presentation of anxiety. Time: 15:13 Medications Administered Discontinued Medications Generic Name Dose Route Start Last Admin Trade Name Freq PRN Reason Stop Dose Admin Iohexol 100 ml 11/03/24 12:57 11/03/24 12:58 Iohexol 350 Mg/Ml 100 Ml Infus..Btl IV 11/03/24 12:58 70 ml ONCE ONE Administration Medical Decision Making Differential Diagnosis Differential Diagnoses: The differential diagnosis associated with the presentation includes ( Hemorrhagic stroke, ischemic stroke, anxiety, electrolyte derangement, severe anemia) Admission/Observation Consideration of admission/observation: Escalation of care including admission/observation considered Lab Data MDM Lab Attestation statement: I reviewed the patient's lab results. 11/03/24 13:38 11/03/24 13:38 Labs: Lab Results 11/03/24 11/03/24 Range/Units 13:11 13:38 WBC 7.9 (4.8-10.8) X10*3/uL RBC 4.02 L (4.20-5.50) X10*6/uL Hgb 11.0 L (12.0-16.0) g/dl Hct 34.3 L (37.0-47.0) % MCV 85.3 (80.0-98.0) fL MCH 27.4 (27.0-33.0) pg MCHC 32.1 (31.0-35.0) g/dl RDW 14.6 (11.0-16.0) % Plt Count 286 (160-400) X10*3/uL MPV 10.9 (9.4-12.3) fL Immature Gran % (Auto) 0.4 (0.0-0.4) % Neut % (Auto) 67.6 (45-73) % Lymph % (Auto) 22.1 (20-40) % [place] % (Auto) 8.4 (2-11) % Eos % (Auto) 1.0 (0-4) % Baso % (Auto) 0.5 (0-2) % Lymph # (Auto) 1.7 (1.2-4.9) X10*3/uL [place] # (Auto) 0.7 (0.1-1.2) X10*3/uL Eos # (Auto) 0.1 (0.0-0.4) X10*3/uL Baso # (Auto) 0.0 (0.0-0.2) X10*3/uL Abs Immat Gran (auto) 0.03 (0.00-0.03) X10*3/uL Absolute Neuts (auto) 5.3 (2.0-8.3) x10*3/uL Absolute Nucleated RBC 0.000 (0.0-0.012) X10*3/uL Nucleated RBC % (auto) 0.0 (0.0-0.2) /100WBC PT 13.4 H (10.9-12.4) SEC INR 1.2 H (0.9-1.1) APTT 31.7 (26.0-36.8) SEC Sodium 141 (135-145) mmol/L Potassium 3.8 (3.3-5.1) mmol/L Chloride 109 H (96-108) mmol/L Carbon Dioxide 23 (22-29) mmol/L Anion Gap 13 (12-20) BUN 11 (9-16) mg/dL Creatinine 0.64 (0.5-1.4) mg/dL Estim Creat Clear Calc 127.5 Estimated GFR > 60 POC Glucose 111 (60-115) mg/dL Random Glucose 95 (60-115) mg/dL Calcium 9.0 (8.4-10.2) mg/dL Troponin I High Sens < 2.7 (<3.5-17.0) ng/L Triglycerides 61 (<150) mg/dL Cholesterol 152 (<200) mg/dL LDL Cholesterol, Calc 96 (<100) mg/dL HDL Cholesterol 44 (>40) mg/dL Independent Interpretation I performed an independent interpretation of an: CT Scan ( head /head and neck CTA:1. There is no evidence of significant stenosis, dissection, occlusion, or aneurysm in the major cervical arterial vasculature. CTA HEAD: 1. There is no evidence of vascular occlusion, significant stenosis, dissection, or aneurysm in the major intracranial arterial vascu) Radiology Impression Discussion of test interpretation with radiology: I have reviewed the radiologist's reading. Discharge Plan Discharge Clinical Impression: Anxiety Patient Disposition: Home, Self-Care Instructions: Anxiety (ED) Prescriptions: No Action (DME) FRONT-WHEELED WALKER See Rx Instructions .Route .MEDSUPPLY Qty: 1 0RF Rx Instructions: As directed (DME) TUB SEAT with BACK See Rx Instructions .Route .MEDSUPPLY Qty: 1 0RF Rx Instructions: As directed (DME) BEDSIDE COMMODE See Rx Instructions .Route .MEDSUPPLY Qty: 1 0RF Rx Instructions: As directed gabapentin 400 mg capsule 400 mg PO TID 30 Days Qty: 90 3RF Rx Instructions: 1 capsule Orally Three times a day ibuprofen [IBU] 800 mg tablet 800 mg PO Q8H PRN (Reason: pain/headaches) 30 Days Qty: 90 0RF Rx Instructions: Take with food labetalol 100 mg tablet 100 mg PO BID 90 Days Qty: 180 1RF montelukast [Singulair] 10 mg tablet 10 mg PO BEDTIME Qty: 90 1RF Bevespi Aerosphere 9-4.8 mcg HFA aerosol inhaler 2 puff inhalation BID Qty: 10.7 3RF fluticasone propionate 220 mcg/actuation HFA aerosol inhaler 2 puff inhalation BID Qty: 12 3RF albuterol sulfate 2.5 mg /3 mL (0.083 %) solution for nebulization 2.5 mg inhalation Q6H PRN (Reason: Shortness Of Breath Or Wheezing) Qty: 180 3RF albuterol sulfate 90 mcg/actuation aerosol powdr breath activated 2 inh inhalation Q6H PRN (Reason: shortness of breath or wheezing) Qty: 1 6RF Stiolto Respimat 2.5-2.5 mcg/actuation mist 2 puff inhalation DAILY Qty: 4 3RF metoclopramide HCl [Reglan] 5 mg tablet 5 mg PO BID lorazepam 1 mg tablet 1 mg PO DAILY PRN (Reason: Anxiety) bupropion HCl 300 mg tablet extended release 24 hr 300 mg PO DAILY dexlansoprazole [Dexilant] 60 mg capsule,biphase delayed releas 60 mg PO DAILY@0630 Linzess 290 mcg capsule 290 mcg PO DAILY Creon 36,000-114,000- 180,000 unit capsule,delayed release(DR/EC) 1 cap PO TIDWM acetaminophen [Tylenol] 325 mg Tablet 650 mg PO Q6H PRN (Reason: Pain) hydrocortisone 1 % cream 1 appl topical QID PRN (Reason: itching) Qty: 28.35 0RF ondansetron 4 mg tablet,disintegrating 4 mg PO Q8H PRN (Reason: nausea and vomiting) Qty: 20 0RF sertraline 100 mg tablet 100 mg PO DAILY (DME) nebulizers [Compact Compressor Nebulizer] Misc See Rx Instructions .Route Qty: 1 0RF Rx Instructions: As directed (DME) lancets [FreeStyle Lancets] 28 gauge misc See Rx Instructions .ROUTE .MEDSUPPLY Qty: 100 1RF Rx Instructions: 4 times/day pyridoxine (vitamin B6) 100 mg tablet 100 mg PO DAILY 90 Days Qty: 90 1RF cholecalciferol (vitamin D3) 50 mcg (2,000 unit) capsule 50 mcg PO DAILY 90 Days Qty: 90 3RF Breztri Aerosphere 160-9-4.8 mcg/actuation HFA aerosol inhaler 2 inh inhalation BID Qty: 10.7 3RF naproxen 500 mg tablet PO PRN diclofenac sodium 1 % gel topical meloxicam 15 mg tablet PO DAILY PRN hydroxyzine HCl 25 mg tablet 25 mg PO DAILY Qty: 30 3RF hydrocortisone 2.5 % ointment 1 appl topical BID-TID PRN (Reason: itching) Qty: 454 1RF Referrals: Jarrod Sherman MD [Primary Care Provider] - Print Language: Bhutanese
[2024-11-03] MEDS: iohexoL 350 MG/ML 100 ML INFUS..BTL IV (12:58)
[2024-11-03 13:10] VITALS: BP 170/112; BP 176/85; PULSE 60; RESP 18; TEMP 36.9; O2SAT 98; BMI 38.1
[2024-11-03 13:30] VITALS: BP 137/51; PULSE 61; RESP 18; TEMP 36.7; O2SAT 100
[2024-11-03 13:32] LABS: Glucose, Whole Blood 111 mg/dL (60-115)
[2024-11-03 13:48] LABS: MANUAL DIFF FLAG NO
[2024-11-03 13:51] LABS: Basophils Percent Auto 0.5 % (0-2); Eosinophils Absolute Auto 0.1 X10*3/uL (0.0-0.4); Hematocrit 34.3 % (37.0-47.0); Imm Gran Abs Auto 0.03 X10*3/uL (0.00-0.03); Imm Gran Pct Auto 0.4 % (0.0-0.4); Lymphocytes Absolute Auto 1.7 X10*3/uL (1.2-4.9); Lymphocytes Percent Auto 22.1 % (20-40); Mean Corpuscular HGB Conc 32.1 g/dl (31.0-35.0); Mean Corpuscular Hemoglobin 27.4 pg (27.0-33.0); Mean Corpuscular Volume 85.3 fL (80.0-98.0); Mean Platelet Volume 10.9 fL (9.4-12.3); Monocytes Absolute Auto 0.7 X10*3/uL (0.1-1.2); Monocytes Percent Auto 8.4 % (2-11); Neutrophils Absolute Auto 5.3 x10*3/uL (2.0-8.3); Neutrophils Percent Auto 67.6 % (45-73); Platelet Count 286 X10*3/uL (160-400); Red Blood Count 4.02 X10*6/uL (4.20-5.50); Red Cell Distribution Width 14.6 % (11.0-16.0); White Blood Count 7.9 X10*3/uL (4.8-10.8)
[2024-11-03 13:54] LABS: INTERNATIONAL NORM RATIO 1.2 (0.9-1.1); Prothrombin Time 13.4 SEC (10.9-12.4)
[2024-11-03 13:56] LABS: Partial Thromboplastin Time 31.7 SEC (26.0-36.8)
--- NOTE | 2024-11-03 14:00 | PC.NURSE ---
patient a&ox3, vss, pt speaking in full sentences, currently no c/o pain/discomfort, pt stating she feels this was all her anxiety. neuro currently intact, pt awaiting results of ct scan, call hernández within reach, plan of care ongoing
[2024-11-03 14:04] LABS: Anion Gap 13 (12-20); Blood Urea Nitrogen 11 mg/dL (9-16); Carbon Dioxide 23 mmol/L (22-29); Chloride 109 mmol/L (96-108); Cholesterol 152 mg/dL (<200); Creatinine Clr Calc Pharmacy 127.5; Estimated Glomerular Filt Rate > 60; Glucose Random 95 mg/dL (60-115); HDL Cholesterol 44 mg/dL (>40); LDL Cholesterol Calculated 96 mg/dL (<100); Potassium 3.8 mmol/L (3.3-5.1); Sodium 141 mmol/L (135-145); Triglycerides 61 mg/dL (<150)
[2024-11-03 14:11] LABS: Troponin-I High Sensitivity < 2.7 ng/L (<3.5-17.0)
[2024-11-03 14:26] LABS: Stroke Lab Use COMPLETE
[2024-11-03 16:03] VITALS: BP 161/87; PULSE 65; RESP 12; TEMP 36.7; O2SAT 100
[2024-11-05 17:13] LABS: Prothrombin Time Whole Blood 12.5 sec (11.1-13.5)
== END 2024-11-03 16:04 | disposition home or self-care (01) ==
PROVIDERS: Emergency Provider Emergency Medicine; PCP Internal Medicine
DX: F41.9 Anxiety disorder, unspecified (principal); R53.1 Weakness; M54.2 Cervicalgia; R00.1 Bradycardia, unspecified; R20.0 Anesthesia of skin; Z79.899 Other long term (current) drug therapy
CPT/HCPCS: 36415; 70450; 70496; 70498; 80048; 80061; 82947; 84484; 85025; 85610; 85730; 93005; 99284; Q9967

== ENCOUNTER → 2024-11-03 12:29 | Outpatient (BNV) | payer OTHER, SELFPAY | PROVIDERS: Emergency Provider Emergency Medicine; PCP Internal Medicine; Visit Provider Internal Medicine Cardiovascular Disease | DX: R00.1 Bradycardia, unspecified (principal) | CPT/HCPCS: 93010 ==

== ENCOUNTER → 2024-11-03 12:29 | Outpatient (BNV) | payer OTHER, SELFPAY | PROVIDERS: Emergency Provider Emergency Medicine; PCP Internal Medicine; Visit Provider Radiology Diagnostic Radiology | DX: G81.94 Hemiplegia, unspecified affecting left nondominant side (principal) | CPT/HCPCS: 70450; 70496; 70498 ==

== ENCOUNTER 2024-12-02 08:43 | Outpatient (AMB) | payer OTHER, SELFPAY ==
--- NOTE | 2024-12-02 08:50 | A.OFFVIS_ITS ---
Vital Signs 12/02/24 08:52 Height 5 ft 1 in Weight 203 lb 4 oz BMI 38.4 BP 126/78 Blood Pressure Location Rt brachial Position Sitting Pulse 60 Pulse Source Pulse Oximeter Pulse Oximetry (%) 99 Oxygen Delivery Method Room Air Intake Visit Reasons: asthma Allergies amoxicillin (AMOXICILLIN) Allergy (Intermediate, Verified 12/02/24 08:55) NAUSEA & VOMITING, stomach pain, vomiting, stomach upset topiramate (From TOPAMAX) Allergy (Intermediate, Verified 12/02/24 08:55) TREMORS, nausea and vomiting latex (LATEX) Allergy (Mild, Verified 12/02/24 08:55) RASH medroxyprogesterone (From PROVERA) Allergy (Mild, Verified 12/02/24 08:55) RASH lactose Allergy (Verified 12/02/24 08:55) bloating , diarrhea HPI HPI asthma: Details: Gabriella is a pleasant 33 year-old female, never tobacco smoker, with underlying asthma COPD overlap syndrome, JOSE under the care of hematology through [facility], rheumatoid arthritis and fibromyalgia, under the care of rheumatology. She reports asthma has been relatively managed on Symbicort, previously attempted to send in [facility] then ICS with Stiolto/Bevespi, however not covered by insurance. She has been using albuterol MDI/neb infrequently up until recently where she has had an increase in dyspnea and dry cough. She denies chest congestion, wheezing, fevers or chills. She reports using Zyrtec for allergy management, and continues with nasal congestion however has not used Flonase yet. Of note, she completed iron infusions to manage iron deficiency anemia, awaiting follow-up blood work in January. [facility] Medical History Vitamin D deficiency Eczema Crushing injury of third toe of right foot Bilateral primary osteoarthritis of hip Obesity (BMI 30-39.9) Anxiety Benign essential hypertension Gallstones Thoracic back pain Depression Tension headache Myofascial pain Sacroiliac joint pain Post depression BMI 39.0-39.9,adult Trigger finger of left thumb Trigger finger of right thumb Insomnia Morbid obesity with BMI of 40.0-44.9, adult Smoker Carpal tunnel syndrome, bilateral Personal history of gestational diabetes Supervision of other high risk , antepartum Supervision of other normal PCOS (polycystic ovarian syndrome) control counseling Migraines Vulvar cyst Anxiety Hyperlipemia Fibromyalgia Rheumatoid arthritis Surgical History S/P laparoscopic cholecystectomy (03/06/23) H/O tubal ligation History of hip replacement, total History of esophagogastroduodenoscopy (EGD) History of removal of cyst History of tonsillectomy and adenoidectomy Family History Father Medical history unknown Mother Diabetes Hypertension Maternal Aunt Breast cancer Ovarian cancer Mental health disorder Maternal Grandmother Diabetes Hypertension Social History Household Members: Significant Other and Children Housing: House Alcohol intake: current Alcohol intake frequency: holidays/special occasions only Patient Tobacco Use Status: Former Tobacco user Tobacco use type: Cigarette e-Cigarette/Vaping Use: Never Used Second Hand Smoke Exposure: No Substance Use Type: Marijuana service: No Current occupational status: disabled Sexual orientation: Straight/Heterosexual Gender identity: Female Cognitive needs: No Hearing needs: No Vision needs: Yes (Glasses) Female Reproductive History Menstrual Age of Menarche: 8 Review of Systems Const Denies excessive sweating and Denies night sweats Eyes Denies dry eyes and Reports itchy eyes ENT Reports Normal hearing present, Reports nasal congestion, Reports nasal discharge, Reports post nasal drip and Denies sore throat Card Denies chest pain, Denies chest pain at rest, Denies chest pain with activity, Denies claudication, Denies leg edema, Reports dyspnea on exertion, Denies orthopnea and Denies paroxysmal nocturnal dyspnea Resp Denies change in phlegm color, Denies chest congestion, Reports cough, Denies hemoptysis, Denies excessive phlegm production, Denies pain on inspiration, Denies pain with cough, Reports dyspnea on exertion and Denies stridor Musc Denies myalgias Neuro Reports Normal hearing present Endo Denies excessive sweating Teddy/Lymph Denies lymphadenopathy Aller/Immun Reports itchy eyes and Denies seasonal rhinorrhea Physical Exam Vital Signs: Last Vital Signs Pulse 60 12/02/24 08:52 BP 126/78 12/02/24 08:52 Pulse Ox 99 12/02/24 08:52 Oxygen Delivery Method Room Air 12/02/24 08:52 BMI result Body Mass Index 38.4 Const General: cooperative, healthy appearing, comfortable, no acute distress, well developed and alert Nutritional Appearance: obese Orientation/consciousness: patient oriented x3 Limitations: no limitations HEENT Head: Yes normal to inspection, Yes normocephalic and Yes atraumatic Ears: hearing grossly normal bilaterally and external ears normal Eyes General: appearance normal, both eyes and all related structures Eyelids: Yes eyelids normal Sclerae: sclerae normal EOM: EOMs intact bilaterally Neck Neck: Yes normal visual inspection and Yes no lymphadenopathy Lymphatic: no lymphadenopathy noted Chest Chest palpation & inspection: normal inspection of the chest Resp Effort & Inspection: normal respiratory effort, able to speak in complete sentences, no audible wheezes, no cough, no stridor, not tachypneic, no tripod positioning and no use of accessory muscles Auscultation: clear to auscultation bilaterally Cardio Jugular venous distension: no JVD Rate: regular rate Rhythm: regular rhythm Skin Other: warm, dry General skin exam: no rashes or lesions noted Neuro General: patient oriented x3 Cranial nerves: Yes Normal hearing present Cognition (Neuro): normal cognition Gait exam (Neuro): Normal gait present Extrem General: Yes normal to inspection, Yes capillary refill normal, Yes no clubbing, cyanosis or edema and Yes no pedal edema Psych Appearance: grossly normal and well kempt Speech and movement: Normal speech and movement present and Clear speech present Affect: normal affect Attitude: cooperative Thought process: Normal thought process present Thought content: Normal thought content present Insight: Good insight present (Psych) Judgement: Good judgement present (Psych) Assessment & Plan Assessment & Plan (1) Asthma-COPD overlap syndrome: Code(s): J44.89 - Other specified chronic obstructive pulmonary disease Category: Medical Plan We discussed importance of asthma management with Symbicort, Spiriva, and additional use of albuterol and nebulizer as necessary. She is aware to call if unable to obtain Spiriva. We had previously trialed Dupixent however patient could not tolerate and not interested in pursuing an alternative at this time. The patient should begin nasal spray treatment for prolonged congestion. Iron deficiency anemia follow-up to occur as scheduled through [facility], not currently receving infusions or taking any oral iron supplements. All questions answered and patient is in agreement of plan. Will follow up in 6-8 weeks or sooner if needed. Medications: New tiotropium bromide 2.5 mcg/actuation (Spiriva Respimat) 2 puffs inhalation DAILY 4 grams 3RF Refilled budesonide-formoterol 160-4.5 mcg/actuation (Symbicort) 2 puffs inhalation Q12H 1 ea 3RF Discontinued ykoybtcsqq-grokipje-jolnjsrfha 160-9-4.8 mcg/actuation (Breztri Aerosphere) Discontinued Reason: Insurance Denied 2 inhalations inhalation BID 10.7 grams 3RF glycopyrrolate-formoterol 9-4.8 mcg (Bevespi Aerosphere) Discontinued Reason: Insurance Denied 2 puffs inhalation BID 10.7 grams 3RF tiotropium-olodaterol 2.5-2.5 mcg/actuation (Stiolto Respimat) Discontinued Reason: Insurance Denied 2 puffs inhalation DAILY 4 grams 3RF Coding Level of Care Code Est Pt Level 4 (54781) Diagnoses Asthma-COPD overlap syndrome J44.89
[2024-12-02 08:52] VITALS: BP 126/78; PULSE 60; O2SAT 99; BMI 38.4
== END 2024-12-02 09:14 | disposition home or self-care (01) ==
LOC: HO.HPSW 08:44
PROVIDERS: PCP Internal Medicine; Visit Provider Nurse Practitioner Family
DX: J44.89 Other specified chronic obstructive pulmonary disease (principal)
CPT/HCPCS: 99214

== ENCOUNTER → 2024-12-02 08:43 | Outpatient (BNVA) | payer OTHER, SELFPAY | PROVIDERS: PCP Internal Medicine; Visit Provider Nurse Practitioner Family | DX: J44.89 Other specified chronic obstructive pulmonary disease (principal); D50.9 Iron deficiency anemia, unspecified | CPT/HCPCS: 99212 ==

== ENCOUNTER 2024-12-04 12:54 | Outpatient (REF) | payer OTHER, SELFPAY ==
--- NOTE | ~2024-12-04 | US_ITS ---
CLINICAL HISTORY: N20.0 - Calculus of kidney US renal with Color Doppler Comparison: None Findings: Right kidney normal size and echotexture, 11.1 cm length. No hydronephrosis. No renal mass. Normal color flow. Nonobstructing caliceal stone lower pole measuring 5 x 5 x 3 mm. Left kidney normal size and echotexture, 12.7 cm length. No hydronephrosis calculus or mass. Normal color flow. Probable vascular reflector rather than calculus lower pole measuring 7 mm. Impression: 1. Nephrolithiasis on the right. No evidence of hydronephrosis. This document has been electronically signed by: Jeremiah Garces MD on 12/05/2024 15:09:39
== END 2024-12-04 12:55 | disposition home or self-care (01) ==
LOC: HO.US 12:54
PROVIDERS: PCP Internal Medicine; Visit Provider Nurse Practitioner Family
DX: N20.0 Calculus of kidney (principal)
CPT/HCPCS: 76775

== ENCOUNTER → 2024-12-04 12:55 | Outpatient (BNV) | payer OTHER, SELFPAY | PROVIDERS: PCP Internal Medicine; Visit Provider Radiology Diagnostic Radiology | DX: N20.0 Calculus of kidney (principal) | CPT/HCPCS: 76775 ==

== ENCOUNTER 2024-12-09 07:15 | Outpatient (REF) | payer OTHER, SELFPAY ==
--- NOTE | ~2024-12-09 | XR_ITS ---
CLINICAL HISTORY: N20.0 - Calculus of kidney 1 view abdomen Comparison: Not retrievable Findings: No significant bowel distention demonstrated. No significant increased stool noted. No free air. No abnormal calcification. No acute bony abnormalities. Bilateral hip prostheses. Right upper quadrant surgical clips. Impression: No significant abnormalities. This document has been electronically signed by: Ruben Way MD on 12/09/2024 19:40:59
== END 2024-12-09 07:16 | disposition home or self-care (01) ==
LOC: HO.XRAY 07:15
PROVIDERS: PCP Internal Medicine; Visit Provider Nurse Practitioner Family
DX: N20.0 Calculus of kidney (principal)
CPT/HCPCS: 74018

== ENCOUNTER → 2024-12-09 07:19 | Outpatient (BNV) | payer OTHER, SELFPAY | PROVIDERS: PCP Internal Medicine; Visit Provider Radiology Diagnostic Radiology | DX: N20.0 Calculus of kidney (principal) | CPT/HCPCS: 74018 ==

== ENCOUNTER 2024-12-12 16:44 | Emergency (ER) | payer OTHER, SELFPAY ==
--- NOTE | ~2024-12-12 | CT_ITS ---
CLINICAL HISTORY: right plank pain CT abdomen and pelvis without contrast Comparison: CT of the abdomen and pelvis from 12/29/2023 Findings: No consolidation of the imaged lung bases. Mild right-sided hydroureteronephrosis is nonspecific. No definite stone in the partially imaged right ureter. Majority of the pelvis obscured by metal artifacts. Small right ureterovesicular junction stone or recently passed stone are considered. No definite stone in the partially imaged urinary bladder. Majority of the bladder is obscured by metal artifacts. Interim resolution of the previous left-sided nephrolithiasis. Nonobstructing nephrolithiasis in the right kidney measure 3 mm in the upper pole and 2 mm in the lower pole. Mild increase in mesenteric fluid with increased size and number of multiple nonspecific mesenteric lymph nodes. Differential considerations include mesenteric adenitis. Richar mesentery also considered. Spleen remains nonenlarged. The adrenal glands are normal. Gallbladder is surgically absent. Mild fat deposition noted in the liver. No small bowel obstruction. Severe stool burden is present, including in the cecum. Appendicolith present without findings of acute appendicitis (imaged 538 of series 3). Partially imaged uterus is retroverted. No adnexal soft tissue mass in the [id number]. Mild free fluid in the pelvis is nonspecific. No definite hardware loosening of the partially imaged hip arthroplasty hardware. Multilevel Schmorl's nodes noted in the imaged spine. Facet arthropathy is greater than expected for age particularly involving the lumbar spine. IMPRESSION: 1. Mild right-sided hydroureteronephrosis may be from small stone in the lower portion of the right ureter or recently passed stone, in the study with pelvis obscured from metal artifacts. 2. Mild additional nonobstructing nephrolithiasis of the right kidney. 3. Resolution of the previous left-sided nephrolithiasis when compared to 12/29/2023. 4. Severe stool burden. No small bowel obstruction. 5. Mild increase in fluid in the lymph nodes of the mesentery as can be seen with richar mesentery and mesenteric adenitis. This document has been electronically signed by: Bharat Moe MD on 12/12/2024 19:28:06
--- NOTE | 2024-12-12 16:48 | ED.GENADULT ---
HPI - General Adult General Chief complaint: Urogenital-Female Stated complaint: side and lower back pain Time Seen by Provider: 12/12/24 17:07 History of Present Illness HPI narrative: Patient is a 34-year-old female presents today with having urinary symptoms. Has a history of right-sided kidney stone. Patient denies any fever chills. Had some mild nausea. There is mild flank pain. There is pain on urination. Patient is from home there is no vaginal discharge patient does not think she is there is no coughing or congestion or upper respiratory symptoms there is no diaphoresis. Related Data Home Medications ?Medication ?Instructions ?Recorded ?Confirmed sertraline 100 mg tablet 100 mg PO DAILY 08/22/20 10/14/24 bupropion HCl 300 mg 24 hr tablet, 300 mg PO DAILY 12/29/23 10/14/24 extended release dexlansoprazole 60 mg 60 mg PO DAILY@0630 12/29/23 10/14/24 capsule,biphase delayed release (Dexilant) linaclotide 290 mcg capsule 290 mcg PO DAILY 12/29/23 10/14/24 (Linzess) ogfzan-czisgwme-mgzigwj 1 cap PO TIDWM 12/29/23 10/14/24 36,000-114,000-180,000 unit capsule,delay rel (Creon) lorazepam 1 mg tablet 1 mg PO DAILY PRN Anxiety 12/29/23 10/14/24 metoclopramide HCl 5 mg tablet 5 mg PO BID 12/29/23 10/14/24 (Reglan) diclofenac sodium 1 % topical gel topical 09/01/24 10/14/24 meloxicam 15 mg tablet mg PO DAILY PRN 09/01/24 10/14/24 naproxen 500 mg tablet mg PO PRN 09/01/24 10/14/24 Previous Rx's ?Medication ?Instructions ?Recorded lancets 28 gauge (FreeStyle #100 ea 06/27/20 Lancets) BEDSIDE COMMODE #1 ea 05/14/22 FRONT-WHEELED WALKER #1 ea 05/14/22 TUB SEAT with BACK #1 ea 05/14/22 gabapentin 400 mg capsule 400 mg PO TID 30 days #90 caps 10/17/22 nebulizers (Compact Compressor #1 ea 02/28/23 Nebulizer) pyridoxine (vitamin B6) 100 mg 100 mg PO DAILY 90 days #90 tabs 07/09/23 tablet ibuprofen 800 mg tablet (IBU) 800 mg PO Q8H PRN pain/headaches 03/04/24 30 days #90 tabs hydrocortisone 1 % topical cream 1 appl topical QID PRN itching 05/21/24 #28.35 grams ondansetron 4 mg disintegrating 4 mg PO Q8H PRN nausea and 05/27/24 tablet vomiting #20 tabs montelukast 10 mg tablet 10 mg PO BEDTIME #90 tabs 07/06/24 (Singulair) hydrocortisone 2.5 % topical 1 appl topical BID-TID PRN itching 09/17/24 ointment #454 grams fluticasone propionate 220 2 puff inhalation BID #12 grams 10/13/24 mcg/actuation HFA aerosol inhaler albuterol sulfate 2.5 mg/3 mL 2.5 mg (3 mL) inhalation Q6H PRN 10/14/24 (0.083 %) solution for nebulization Shortness Of Breath Or Wheezing #180 mL albuterol sulfate 90 mcg/actuation 2 inh inhalation Q6H PRN shortness 10/14/24 breath activated powder inhaler of breath or wheezing #1 ea cholecalciferol (vitamin D3) 50 50 mcg PO DAILY 90 days #90 caps 10/14/24 mcg (2,000 unit) capsule labetalol 100 mg tablet 100 mg PO BID 90 days #180 tabs 11/26/24 budesonide-formoterol HFA 160 2 puff inhalation Q12H #1 ea 12/02/24 mcg-4.5 mcg/actuation aerosol inhaler (Symbicort) tiotropium bromide 2.5 2 puff inhalation DAILY #4 grams 12/02/24 mcg/actuation mist for inhalation (Spiriva Respimat) hydroxyzine HCl 25 mg tablet 25 mg PO DAILY anxiety #30 tabs 12/03/24 ibuprofen 400 mg tablet 400 mg PO Q6H PRN pain #20 tabs 12/12/24 tamsulosin 0.4 mg capsule (Flomax) 0.4 mg PO DAILY #7 caps 12/12/24 Allergies Allergy/AdvReac Type Severity Reaction Status Date / Time amoxicillin (AMOXICILLIN) Allergy Intermediate NAUSEA & Verified 12/12/24 16:52 VOMITING, stomach pain, vomiting, stomach upset topiramate (From TOPAMAX) Allergy Intermediate TREMORS, Verified 12/12/24 16:52 nausea and vomiting latex (LATEX) Allergy Mild RASH Verified 12/12/24 16:52 medroxyprogesterone (From Allergy Mild RASH Verified 12/12/24 16:52 PROVERA) lactose Allergy bloating , Verified 12/12/24 16:52 diarrhea Review of Systems Review of Systems: Positive pain on urination Yes all other systems are reviewed and are negative PMFSH Past Medical History Medical History Vitamin D deficiency Eczema Crushing injury of third toe of right foot Bilateral primary osteoarthritis of hip Obesity (BMI 30-39.9) Anxiety Benign essential hypertension Gallstones Thoracic back pain Depression Tension headache Myofascial pain Sacroiliac joint pain Post depression BMI 39.0-39.9,adult Trigger finger of left thumb Trigger finger of right thumb Insomnia Morbid obesity with BMI of 40.0-44.9, adult Smoker Carpal tunnel syndrome, bilateral Personal history of gestational diabetes Supervision of other high risk , antepartum Supervision of other normal PCOS (polycystic ovarian syndrome) control counseling Migraines Vulvar cyst Anxiety Hyperlipemia Fibromyalgia Rheumatoid arthritis Surgical History S/P laparoscopic cholecystectomy (03/06/23) H/O tubal ligation History of hip replacement, total History of esophagogastroduodenoscopy (EGD) History of removal of cyst History of tonsillectomy and adenoidectomy Family History Family History Father Medical history unknown Mother Diabetes Hypertension Maternal Aunt Breast cancer Ovarian cancer Mental health disorder Maternal Grandmother Diabetes Hypertension Social History Social History Household Members: Significant Other and Children Housing: House Alcohol intake: current Alcohol intake frequency: holidays/special occasions only Patient Tobacco Use Status: Former Tobacco user Tobacco use type: Cigarette Smoked in Last 30 Days: No e-Cigarette/Vaping Use: Never Used Second Hand Smoke Exposure: No Use of substances other than those prescribed or required for medical reasons: Yes Substance Use Type: Marijuana Advance Directives: No Advance Directives Information Provided: No Do you have a plan to hurt others: No Plan Patient : No service: No Current occupational status: disabled Sexual orientation: Straight/Heterosexual Gender identity: Female Cognitive needs: No Hearing needs: No Vision needs: Yes (Glasses) Physical Exam ED Vital Signs: Vital Signs - 24 hr 12/12/24 16:49 12/12/24 19:05 Temperature 98.5 F 98.0 F Pulse Rate 63 57 Respiratory Rate 16 Blood Pressure 149/84 H 120/70 Pulse Oximetry 100 99 Oxygen Delivery Method Room Air Room Air BMI result Body Mass Index 32.9 Appearance: Alert. Oriented X3. No acute distress. Eyes: Pupils equal, round and reactive to light. ENT: Pharynx normal. Neck: Normal inspection. Neck supple. No lymph nodes noted. No crepitus CVS: Normal heart rate and rhythm. Pulses normal. Normal S1 and S2 Respiratory: No respiratory distress. Breath sounds normal. No Wheezing. No rales Abdomen: Soft and nontender. No rigidity. No distention. good BS x4 Skin: Skin warm and dry. Normal skin color. Normal skin turgor. Extremities: No lower extremity edema. Neurovascular intact to all extremities. No Lacerations. No Rash Neuro: Oriented X 3. No motor deficit. No sensory deficit. Moving all extermities. No slurred speech Course Course Course Narrative: Tahmina Frazier APRN This is a rapid medical exam. Deferred additional HPI, ROS, PE to primary provider. 34 yo female with history of renal colic, HTN, depression, anxiety here with complaints of left sided back pain, urinary urgency, voiding small amounts, nausea/vomiting x 3 days. LMP 12/04 Will obtain labs, UA, ur preg VSS Medications Administered Discontinued Medications Generic Name Dose Route Start Last Admin Trade Name Freq PRN Reason Stop Dose Admin Sodium Chloride 1,000 mls @ 999 mls/hr 12/12/24 17:30 12/12/24 18:54 Ns IV 12/12/24 18:30 Infused .Q1H1M MARY Infusion Medical Decision Making Medical Decision Making [place] Narrative: Patient's CT scan of the abdomen was done. It showed no evidence of bowel obstruction. It did show a possibly right ureteral stone versus a passed stone. Patient will require follow-up on an outpatient basis. Urine is not infected. Pain is controlled. Patient is no acute distress. Will give Flomax for the kidney stone Motrin for pain follow up Urology on an outpatient basis currently patient is in stable condition white count is normal. Patient's kidney function showed a normal creatinine. No signs of renal failure. Patient's urine showed no gross signs of infection test is negative no related issue will discharge home Differential Diagnosis Differential Diagnoses: The differential diagnosis associated with the presentation includes Kidney stone right Lab Data MDM Lab Attestation statement: I reviewed the patient's lab results. 12/12/24 17:05 12/12/24 17:05 Labs: Lab Results 12/12/24 Range/Units 17:05 WBC 6.6 (4.8-10.8) X10*3/uL RBC 4.04 L (4.20-5.50) X10*6/uL Hgb 11.2 L (12.0-16.0) g/dl Hct 34.3 L (37.0-47.0) % MCV 84.9 (80.0-98.0) fL MCH 27.7 (27.0-33.0) pg MCHC 32.7 (31.0-35.0) g/dl RDW 14.4 (11.0-16.0) % Plt Count 282 (160-400) X10*3/uL MPV 10.4 (9.4-12.3) fL Immature Gran % (Auto) 0.3 (0.0-0.4) % Neut % (Auto) 58.2 (45-73) % Lymph % (Auto) 29.6 (20-40) % Karn[place] % (Auto) 8.6 (2-11) % Eos % (Auto) 2.7 (0-4) % Baso % (Auto) 0.6 (0-2) % Lymph # (Auto) 2.0 (1.2-4.9) X10*3/uL [place]es # (Auto) 0.6 (0.1-1.2) X10*3/uL Eos # (Auto) 0.2 (0.0-0.4) X10*3/uL Baso # (Auto) 0.0 (0.0-0.2) X10*3/uL Abs Immat Gran (auto) 0.02 (0.00-0.03) X10*3/uL Absolute Neuts (auto) 3.9 (2.0-8.3) x10*3/uL Absolute Nucleated RBC 0.000 (0.0-0.012) X10*3/uL Nucleated RBC % (auto) 0.0 (0.0-0.2) /100WBC Sodium 145 (135-145) mmol/L Potassium 3.8 (3.3-5.1) mmol/L Chloride 110 H (96-108) mmol/L Carbon Dioxide 26 (22-29) mmol/L Anion Gap 13 (12-20) BUN 11 (9-16) mg/dL Creatinine 0.66 (0.5-1.4) mg/dL Estim Creat Clear Calc 131.7 Estimated GFR > 60 Random Glucose 105 (60-115) mg/dL Calcium 9.2 (8.4-10.2) mg/dL Total Bilirubin 0.3 (0.0-1.0) mg/dL Direct Bilirubin 0.1 (0.0-0.5) mg/dL AST 18 (5-31) U/L ALT 16 (0-31) U/L Alkaline Phosphatase 79 (39-117) U/L Total Protein 7.3 (6.5-8.0) g/dL Albumin 4.3 (3.5-5.0) g/dL Urine Color Yellow Urine Appearance Clear Urine pH 6.5 (5.0-9.0) Ur Specific [place] 1.025 (1.005-1.025) Urine Protein Trace (Neg-Trace) mg/dL Urine Glucose (UA) Negative (Negative) mg/dL Urine Ketones Trace (Negative) mg/dL Urine Blood Negative (Negative) Urine Nitrite Negative (Negative) Ur Leukocyte Esterase Trace H (Negative) Urine RBC 0-2 (0-2) /HPF Urine WBC 0-5 (0-5) /HPF Ur Squamous Epith Cells 0-2 (0-2) /HPF Urine Bacteria None Seen (None Seen) Hyaline Casts 3-5 (0-2) /LPF Urine Test NEGATIVE (NEGATIVE) Independent Interpretation I performed an independent interpretation of an: CT Scan (CT scan showed no obstruction no abscess no perforation but a question right-sided kidney stone in the ureter) Radiology Impression Discussion of test interpretation with radiology: I have reviewed the radiologist's reading. Social Determinants Patient?s care significantly limited by Social Determinants of Health including: Problems related to primary support group Discharge Plan Discharge Clinical Impression: History of renal colic Patient Disposition: Home, Self-Care Instructions: Kidney Stones (ED) Prescriptions: New tamsulosin [Flomax] 0.4 mg capsule 0.4 mg PO DAILY Qty: 7 0RF ibuprofen 400 mg tablet 400 mg PO Q6H PRN (Reason: pain) Qty: 20 0RF No Action (DME) FRONT-WHEELED WALKER See Rx Instructions .Route .MEDSUPPLY Qty: 1 0RF Rx Instructions: As directed (DME) TUB SEAT with BACK See Rx Instructions .Route .MEDSUPPLY Qty: 1 0RF Rx Instructions: As directed (DME) BEDSIDE COMMODE See Rx Instructions .Route .MEDSUPPLY Qty: 1 0RF Rx Instructions: As directed gabapentin 400 mg capsule 400 mg PO TID 30 Days Qty: 90 3RF Rx Instructions: 1 capsule Orally Three times a day ibuprofen [IBU] 800 mg tablet 800 mg PO Q8H PRN (Reason: pain/headaches) 30 Days Qty: 90 0RF Rx Instructions: Take with food montelukast [Singulair] 10 mg tablet 10 mg PO BEDTIME Qty: 90 1RF fluticasone propionate 220 mcg/actuation HFA aerosol inhaler 2 puff inhalation BID Qty: 12 3RF albuterol sulfate 2.5 mg /3 mL (0.083 %) solution for nebulization 2.5 mg inhalation Q6H PRN (Reason: Shortness Of Breath Or Wheezing) Qty: 180 3RF albuterol sulfate 90 mcg/actuation aerosol powdr breath activated 2 inh inhalation Q6H PRN (Reason: shortness of breath or wheezing) Qty: 1 6RF labetalol 100 mg tablet 100 mg PO BID 90 Days Qty: 180 1RF hydroxyzine HCl 25 mg tablet 25 mg PO DAILY Qty: 30 0RF metoclopramide HCl [Reglan] 5 mg tablet 5 mg PO BID lorazepam 1 mg tablet 1 mg PO DAILY PRN (Reason: Anxiety) bupropion HCl 300 mg tablet extended release 24 hr 300 mg PO DAILY dexlansoprazole [Dexilant] 60 mg capsule,biphase delayed releas 60 mg PO DAILY@0630 Linzess 290 mcg capsule 290 mcg PO DAILY Creon 36,000-114,000- 180,000 unit capsule,delayed release(DR/EC) 1 cap PO TIDWM hydrocortisone 1 % cream 1 appl topical QID PRN (Reason: itching) Qty: 28.35 0RF ondansetron 4 mg tablet,disintegrating 4 mg PO Q8H PRN (Reason: nausea and vomiting) Qty: 20 0RF sertraline 100 mg tablet 100 mg PO DAILY (DME) nebulizers [Compact Compressor Nebulizer] Misc See Rx Instructions .Route Qty: 1 0RF Rx Instructions: As directed (DME) lancets [FreeStyle Lancets] 28 gauge misc See Rx Instructions .ROUTE .MEDSUPPLY Qty: 100 1RF Rx Instructions: 4 times/day pyridoxine (vitamin B6) 100 mg tablet 100 mg PO DAILY 90 Days Qty: 90 1RF cholecalciferol (vitamin D3) 50 mcg (2,000 unit) capsule 50 mcg PO DAILY 90 Days Qty: 90 3RF naproxen 500 mg tablet PO PRN diclofenac sodium 1 % gel topical meloxicam 15 mg tablet PO DAILY PRN hydrocortisone 2.5 % ointment 1 appl topical BID-TID PRN (Reason: itching) Qty: 454 1RF budesonide-formoterol [Symbicort] 160-4.5 mcg/actuation HFA aerosol inhaler 2 puff inhalation Q12H Qty: 1 3RF Spiriva Respimat 2.5 mcg/actuation mist 2 puff inhalation DAILY Qty: 4 3RF Referrals: Jayson Rausch MD [Physician, Urology] - 12/14/24 Print Language: Belarusian
[2024-12-12 16:49] VITALS: BP 149/84; PULSE 63; RESP 16; TEMP 36.9; O2SAT 100; BMI 32.9
[2024-12-12 17:11] LABS: MANUAL DIFF FLAG NO
[2024-12-12 17:14] LABS: Basophils Percent Auto 0.6 % (0-2); Eosinophils Absolute Auto 0.2 X10*3/uL (0.0-0.4); Eosinophils Percent Auto 2.7 % (0-4); Hematocrit 34.3 % (37.0-47.0); Hemoglobin 11.2 g/dl (12.0-16.0); Imm Gran Abs Auto 0.02 X10*3/uL (0.00-0.03); Imm Gran Pct Auto 0.3 % (0.0-0.4); Lymphocytes Percent Auto 29.6 % (20-40); Mean Corpuscular HGB Conc 32.7 g/dl (31.0-35.0); Mean Corpuscular Hemoglobin 27.7 pg (27.0-33.0); Mean Corpuscular Volume 84.9 fL (80.0-98.0); Mean Platelet Volume 10.4 fL (9.4-12.3); Monocytes Absolute Auto 0.6 X10*3/uL (0.1-1.2); Monocytes Percent Auto 8.6 % (2-11); Neutrophils Absolute Auto 3.9 x10*3/uL (2.0-8.3); Neutrophils Percent Auto 58.2 % (45-73); Platelet Count 282 X10*3/uL (160-400); Red Blood Count 4.04 X10*6/uL (4.20-5.50); Red Cell Distribution Width 14.4 % (11.0-16.0); White Blood Count 6.6 X10*3/uL (4.8-10.8)
[2024-12-12 17:15] LABS: Appearance Urine Clear; Color Urine Yellow; Glucose Urine UA Negative (Negative); Leukocyte Esterase Urine Trace (Negative); Nitrite Urine Negative (Negative); PH 6.5 (5.0-9.0); Specific Gravity - Urine 1.025 (1.005-1.025); UMIC TRIGGER UACC YES; Urine Blood Negative (Negative); Urine Ketones Trace mg/dL (Negative); Urine Protein Trace mg/dL (Neg-Trace)
[2024-12-12 17:18] LABS: UPreg QC Valid YES; Urine Pregnancy NEGATIVE (NEGATIVE)
[2024-12-12 17:20] LABS: Bacteria Urine None Seen (None Seen); RBC Urine 0-2 /HPF (0-2); Squamous Epithelial Cell Urine 0-2 /HPF (0-2); WBC Urine 0-5 /HPF (0-5)
[2024-12-12 17:29] LABS: Alanine Aminotransferase 16 U/L (0-31); Albumin Level 4.3 g/dL (3.5-5.0); Alkaline Phosphatase 79 U/L (39-117); Anion Gap 13 (12-20); Aspartate Amino Transferase 18 U/L (5-31); Bilirubin Direct 0.1 mg/dL (0.0-0.5); Bilirubin Total 0.3 mg/dL (0.0-1.0); Blood Urea Nitrogen 11 mg/dL (9-16); Calcium 9.2 mg/dL (8.4-10.2); Carbon Dioxide 26 mmol/L (22-29); Chloride 110 mmol/L (96-108); Creatinine Clr Calc Pharmacy 131.7; Estimated Glomerular Filt Rate > 60; Glucose Random 105 mg/dL (60-115); Potassium 3.8 mmol/L (3.3-5.1); Sodium 145 mmol/L (135-145); Total Protein 7.3 g/dL (6.5-8.0)
[2024-12-12] MEDS: 0.9 % Sodium Chloride 1,000 ML 999 ML IV (17:52)
--- NOTE | 2024-12-12 18:03 | PC.NURSE ---
patient a&ox3, pt c/o rt flank pain/back pain, iv inserted, labs previously drawn, ivf running per order, call hernández within reach, plan of care ongoing.
[2024-12-12 19:05] VITALS: BP 120/70; PULSE 57; TEMP 36.7; O2SAT 99
[2024-12-12 20:46] VITALS: BP 120/70; PULSE 57; RESP 18; TEMP 36.7; O2SAT 99
== END 2024-12-12 20:46 | disposition home or self-care (01) ==
PROVIDERS: Nurse Practitioner Family; Emergency Provider Emergency Medicine Emergency Medical Services; PCP Internal Medicine
DX: M54.50 Low back pain, unspecified (principal); R30.0 Dysuria; R11.0 Nausea; R10.2 Pelvic and perineal pain; Z87.891 Personal history of nicotine dependence; Z79.899 Other long term (current) drug therapy; Z87.442 Personal history of urinary calculi
CPT/HCPCS: 36415; 74176; 80048; 80076; 81001; 81025; 85025; 96360; 99284

== ENCOUNTER → 2024-12-12 17:21 | Outpatient (BNV) | payer OTHER, SELFPAY | PROVIDERS: Emergency Provider Emergency Medicine Emergency Medical Services; PCP Internal Medicine; Visit Provider Radiology Neuroradiology | DX: N20.0 Calculus of kidney (principal) | CPT/HCPCS: 74176 ==

== ENCOUNTER 2024-12-17 10:50 | Outpatient (AMB) | payer OTHER, SELFPAY ==
--- NOTE | 2024-12-17 11:06 | A.OFFVIS_ITS ---
Intake Visit Reasons: 3m/US(set) Intake Note: Patient presents today for follow up on: Kidney Stones and Ultrasound Results Imaging Completed: 12/04/24 Urology Medication: Vitamin B6, Tamsulosin Antibiotic Allergies: Amoxicillin Blood Thinners: None Fisheries Director Required: No Accompanied by: Child Allergies amoxicillin (AMOXICILLIN) Allergy (Intermediate, Verified 12/17/24 11:43) NAUSEA & VOMITING, stomach pain, vomiting, stomach upset topiramate (From TOPAMAX) Allergy (Intermediate, Verified 12/17/24 11:43) TREMORS, nausea and vomiting latex (LATEX) Allergy (Mild, Verified 12/17/24 11:43) RASH medroxyprogesterone (From PROVERA) Allergy (Mild, Verified 12/17/24 11:43) RASH lactose Allergy (Verified 12/17/24 11:43) bloating , diarrhea Medication List - Last Reconciled 12/17/24 by ELIAN Pedro- albuterol sulfate 2.5 mg (3 mL) inhalation Q6H PRN albuterol sulfate 90 mcg/actuation 2 inhalations inhalation Q6H PRN [BEDSIDE COMMODE As directed] budesonide-formoterol 160-4.5 mcg/actuation (Symbicort) 2 puffs inhalation Q12H bupropion HCl XL 300 mg PO DAILY cholecalciferol (vitamin D3) 50 mcg PO DAILY 90 days dexlansoprazole (Dexilant) 60 mg PO DAILY@0630 diclofenac sodium 1% topical fluticasone propionate 220 mcg/actuation 2 puffs inhalation BID [FRONT-WHEELED WALKER As directed] gabapentin 400 mg PO TID 30 days hydrocortisone 1% 1 appl topical QID PRN hydrocortisone 2.5% 1 appl topical BID-TID PRN hydroxyzine HCl 25 mg PO DAILY ibuprofen 400 mg PO Q6H PRN ibuprofen (IBU) 800 mg PO Q8H PRN 30 days labetalol 100 mg PO BID 90 days lancets (FreeStyle Lancets) 4 times/day linaclotide (Linzess) 290 mcg PO DAILY [id number]-[id number]-[id number] 36,000-114,000- 180,000 unit (Creon) 1 cap PO TIDWM lorazepam 1 mg PO DAILY PRN meloxicam mg PO DAILY PRN metoclopramide HCl (Reglan) 5 mg PO BID montelukast (Singulair) 10 mg PO BEDTIME naproxen mg PO PRN nebulizers (Compact Compressor Nebulizer) As directed ondansetron 4 mg PO Q8H PRN pyridoxine (vitamin B6) 100 mg PO DAILY 90 days sertraline 100 mg PO DAILY tamsulosin (Flomax) 0.4 mg PO DAILY tiotropium bromide 2.5 mcg/actuation (Spiriva Respimat) 2 puffs inhalation DAILY [TUB SEAT with BACK As directed] HPI Comments Details: Gabriella is a very pleasant 33-year-old female patient of Dr. Sherman who was accompanied by her daughter at today's office visit. She has a past medical history of eczema, anxiety, hypertension, depression, headaches, obesity, carpal tunnel syndrome, PCOS, fibromyalgia, and rheumatoid arthritis. She presents to the office today for follow-up of her nephrolithiasis. In discussion with the patient today she reports left-sided flank pain she had been experiencing has since subsided however she has been having intermittent episodes of right-sided flank pain in his unsure if this is related to her nephrolithiasis or longstanding history of constipation. Recent CT KUB results were reviewed 12/09 Mild right-sided hydroureteronephrosis may be from small stone in the lower portion of the right ureter or recently passed stone, in the study with pelvis obscured from metal artifacts. Mild additional nonobstructing nephrolithiasis of the right kidney 2-3mm. Resolution of the previous left-sided nephrolithiasis when compared to 12/29/2023. Severe stool burden. No small bowel obstruction. In office urinalysis results reviewed with the patient today; as noted above. We did discussed potential causes of right-sided flank pain patient is experiencing as well as further treatment options and risks and benefits of these treatment options we will continue with surveillance monitoring at this time. We did discussed worsening symptoms. She does have a previous history of surgical intervention including left-sided ESWL. She otherwise denies incontinence, nocturia, hematuria, dysuria, foul smelling urine, changes to urinary stream, fever, and or chills. [facility] Medical History Vitamin D deficiency Eczema Crushing injury of third toe of right foot Bilateral primary osteoarthritis of hip Obesity (BMI 30-39.9) Anxiety Benign essential hypertension Gallstones Thoracic back pain Depression Tension headache Myofascial pain Sacroiliac joint pain Post depression BMI 39.0-39.9,adult Trigger finger of left thumb Trigger finger of right thumb Insomnia Morbid obesity with BMI of 40.0-44.9, adult Smoker Carpal tunnel syndrome, bilateral Personal history of gestational diabetes Supervision of other high risk , antepartum Supervision of other normal PCOS (polycystic ovarian syndrome) control counseling Migraines Vulvar cyst Anxiety Hyperlipemia Fibromyalgia Rheumatoid arthritis Surgical History S/P laparoscopic cholecystectomy (03/06/23) H/O tubal ligation History of hip replacement, total History of esophagogastroduodenoscopy (EGD) History of removal of cyst History of tonsillectomy and adenoidectomy Family History Father Medical history unknown Mother Diabetes Hypertension Maternal Aunt Breast cancer Ovarian cancer Mental health disorder Maternal Grandmother Diabetes Hypertension Social History Household Members: Significant Other and Children Housing: House Alcohol intake: current Alcohol intake frequency: holidays/special occasions only Patient Tobacco Use Status: Former Tobacco user Tobacco use type: Cigarette e-Cigarette/Vaping Use: Never Used Second Hand Smoke Exposure: No Substance Use Type: Marijuana service: No Current occupational status: disabled Sexual orientation: Straight/Heterosexual Gender identity: Female Cognitive needs: No Hearing needs: No Vision needs: Yes (Glasses) Female Reproductive History Menstrual Age of Menarche: 8 Review of Systems Const All systems reviewed & are unremarkable except as noted in HPI and below Physical Exam Const General: cooperative, healthy appearing, comfortable, no acute distress, well developed, alert and awake Nutritional Appearance: overweight Orientation/consciousness: patient oriented x3 Limitations: no limitations HEENT Head: Yes normal to inspection, Yes normocephalic and Yes atraumatic Ears: hearing grossly normal bilaterally Eyes General: appearance normal, both eyes and all related structures Neck Neck: Yes normal visual inspection and Yes trachea midline Chest Chest palpation & inspection: normal inspection of the chest Resp Effort & Inspection: normal respiratory effort and able to speak in complete sentences Cardio Rate: regular rate GI Inspection: Yes normal to inspection General: Yes no CVA tenderness Back/Spine/Pelvis Back: no CVA tenderness Skin General skin exam: no rashes or lesions noted Neuro General: patient oriented x3 Extrem General: Yes normal to inspection Psych Appearance: grossly normal and well kempt Mental Status: mental status grossly normal Speech and movement: Normal speech and movement present and Clear speech present Affect: normal affect Attitude: cooperative Thought process: Normal thought process present Thought content: Normal thought content present Insight: Fair insight present (Psych) Judgement: Fair judgement present (Psych) Results AMB Urinalysis, Automated UA Leukoctes 0 Antonino/uL Last Edit by Robin Erickson [facility] on 12/17/24 11:23 UA Nitrite [facility] on 12/17/24 11:23 UA Urobilinogen 0.2 mg/dL Last Edit by Robin Erickson [facility] on 12/17/24 11:2 3 UA Protein 0 mg/dL Last Edit by Robin Erickson [facility] on 12/17/24 11:23 UA pH 6.0 Last Edit by Robin Erickson [facility] on 12/17/24 11:23 UA Blood 0 Elliott/uL Last Edit by Robin Erickson [facility] on 12/17/24 11:23 UA Specific [place] 1.015 Last Edit by Robin Erickson [facility] on 12/17/24 11: 23 UA Ketone Last Edit by Robin Erickson [facility] on 12/17/24 11:23 UA Bilirubin 0 mg/dL Last Edit by Robin Erickson [facility] on 12/17/24 11:23 UA Glucose 0 mg/dL Last Edit [facility] on 12/17/24 11:23 Results Reviewed Results Reviewed: Laboratory Last Values Urine pH (Auto) 6.0 12/17/24 11:11 Specific [place] (Auto) 1.015 12/17/24 11:11 Urine Protein (Auto) 0 mg/dL 12/17/24 11:11 Glucose (UA)(Auto) 0 mg/dL 12/17/24 11:11 Urine Blood (Auto) 0 Elliott/uL 12/17/24 11:11 Urine Bilirubin (Auto) 0 mg/dL 12/17/24 11:11 Urine Urobilinogen (Auto) 0.2 mg/dL 12/17/24 11:11 Leukocyte Esterase (Auto) 0 Antonino/uL 12/17/24 11:11 Date of Service: 12/12/24 Procedure(s): CT abdomen pelvis wo IV con Findings: No consolidation of the imaged lung bases. Mild right-sided hydroureteronephrosis is nonspecific. No definite stone in the partially imaged right ureter. Majority of the pelvis obscured by metal artifacts. Small right ureterovesicular junction stone or recently passed stone are considered. No definite stone in the partially imaged urinary bladder. Majority of the bladder is obscured by metal artifacts. Interim resolution of the previous left-sided nephrolithiasis. Nonobstructing nephrolithiasis in the right kidney measure 3 mm in the upper pole and 2 mm in the lower pole. Mild increase in mesenteric fluid with increased size and number of multiple nonspecific mesenteric lymph nodes. Differential considerations include mesenteric adenitis. Richar mesentery also considered. Spleen remains nonenlarged. The adrenal glands are normal. Gallbladder is surgically absent. Mild fat deposition noted in the liver. No small bowel obstruction. Severe stool burden is present, including in the cecum. Appendicolith present without findings of acute appendicitis (imaged 538 of series 3). Partially imaged uterus is retroverted. No adnexal soft tissue mass in the [id number]. Mild free fluid in the pelvis is nonspecific. No definite hardware loosening of the partially imaged hip arthroplasty hardware. Multilevel Schmorl's nodes noted in the imaged spine. Facet arthropathy is greater than expected for age particularly involving the lumbar spine. IMPRESSION: 1. Mild right-sided hydroureteronephrosis may be from small stone in the lower portion of the right ureter or recently passed stone, in the study with pelvis obscured from metal artifacts. 2. Mild additional nonobstructing nephrolithiasis of the right kidney. 3. Resolution of the previous left-sided nephrolithiasis when compared to 12/29/2023. 4. Severe stool burden. No small bowel obstruction. 5. Mild increase in fluid in the lymph nodes of the mesentery as can be seen with richar mesentery and mesenteric adenitis. Assessment & Plan Assessment & Plan (1) Calculus of kidney: Code(s): N20.0 - Calculus of kidney Category: Medical Plan In office urinalysis results with the patient today; as noted above. Recent CT KUB results reviewed with the patient today; as noted above. We discussed further interventions and risks and benefits of these interventions. Will continue with surveillance monitoring at this time. We did discussed worsening symptoms. We did discussed the importance of adequate hydration relation to nephrolithiasis as well as overall health and well-being. Will obtain renal ultrasound in 3 months. Follow-up in 3 months with imaging to be completed prior; or sooner with any is sues, concerns, and or questions. Orders: Orders AMB Urinalysis Automated Today Z13.9 - Encounter for screening, unspecified US renal BI 3 Months N20.0 - Calculus of kidney Patient Instructions: The patient had an opportunity to ask questions regarding the treatment plan. All questions were answered. Physical exam, labs, and imaging were discussed and reviewed in detail. As well as risks, benefits, and discussion of treatment choices. No major barriers to understanding were identified. The patient expressed understanding and agreement with the above treatment plan. The patient was made aware they should contact our office by phone for worsening of their current condition, the appearance of new symptoms, or with any questions or concerns. Compliance is encouraged with any medications and follow up testing that is ordered. It is a privilege to be allowed the opportunity to participate in? your urological care.? Again, if you have any questions or concerns If you have any questions or concerns please do not hesitate to contact me. The office is [phone]. This note is constructed using voice recognition software. While every effort has been made to ensure accuracy car rider errors may have been included. Yours sincerely, AYLEEN Pedro Coding Level of Care Code Est Pt Level 3 (41304) Diagnoses Calculus of kidney N20.0
== END 2024-12-17 11:41 | disposition home or self-care (01) ==
LOC: HO.HUSH 10:51
PROVIDERS: PCP Internal Medicine; Visit Provider Nurse Practitioner Family
DX: Z13.9 Encounter for screening, unspecified (principal); N20.0 Calculus of kidney
CPT/HCPCS: 99213

== ENCOUNTER → 2024-12-17 10:50 | Outpatient (BNVA) | payer OTHER, SELFPAY | PROVIDERS: PCP Internal Medicine; Visit Provider Nurse Practitioner Family | DX: N20.0 Calculus of kidney (principal) | CPT/HCPCS: 81003; 99212 ==

== ENCOUNTER 2024-12-21 11:40 | Emergency (ER) | payer OTHER, SELFPAY ==
--- NOTE | ~2024-12-21 | CT_ITS ---
CLINICAL HISTORY: R flank radiates to the r hip pain, include r hip CT abdomen and pelvis without contrast Comparison: None provided Findings: Diffuse esophageal mural thickening, nonspecific. Hepatomegaly. Splenule. Thickening of the bilateral adrenal glands, nonspecific. Mild right hydronephrosis with scattered subcentimeter renal calculi measuring no more than 3 mm. Punctate less than 2 mm calculus left upper pole kidney. No bowel obstruction, pneumoperitoneum, or pneumatosis. Scattered colonic diverticulosis without diverticulitis or colitis. Central mesenteric fat stranding with prominent lymph nodes, suggestive of mesenteric panniculitis. Streak artifact in the pelvis limits evaluation. Normal appendix. Probable bilateral adnexal cysts. Trace free pelvic fluid. Multilevel Schmorl's nodes. Bilateral total hip arthroplasties. Postcholecystectomy. IMPRESSION: 1. Possible mesenteric panniculitis. 2. Mild right hydronephrosis with scattered subcentimeter renal calculi measuring no more than 3 mm. 3. Suspect ruptured adnexal cysts with trace free pelvic fluid. This document has been electronically signed by: Klaus Sampson MD on 12/21/2024 18:15:13
--- NOTE | ~2024-12-21 | XR_ITS ---
EXAMINATION: XR HIP 1 VIEW RIGHT WITH PELVIS HISTORY: Prior right hip replacement, severe pain COMPARISON: Comparison is made with the prior examination dated 08/01/2021. FINDINGS: A single AP view of the pelvis and two views of the right hip are submitted. In the interval since the prior study, the patient is status post right total hip arthroplasty. The orthopedic elements are in anatomic alignment. There is no radiographic evidence of loosening. There is no fracture or dislocation. The soft tissues are unremarkable. XR/XR hip RT w [id number] IMPRESSION: Status post right total hip arthroplasty. Electronically signed by: Cuco Tong MD 12/21/2024 12:20 PM EDT
--- NOTE | 2024-12-21 11:48 | ED.EXTPRO ---
HPI - Extremity Problem General Chief complaint: Extremity Injury, Lower Stated complaint: R hip pain 5 days Time Seen by Provider: 12/21/24 14:46 Source: patient Mode of arrival: ambulatory Limitations: no limitations History of Present Illness ED Provider: DR. Kelly HPI Narrative: 34-year-old female s/p bilateral hip replacement in 2022 at [facility] came in for increased pain in the right hip, declined any injury or trauma to the right hip, pain radiates to the right flank area patient with history of kidney stones in the past, no dysuria, no frequency urination, no hematuria, pain also radiates down to the back of her thigh. No fever, no chills, no history of trauma, no nausea, no vomiting. No recent travel, no lower extremity swelling or tenderness. Related Data Home Medications ?Medication ?Instructions ?Recorded ?Confirmed sertraline 100 mg tablet 100 mg PO DAILY 08/22/20 12/17/24 bupropion HCl 300 mg 24 hr tablet, 300 mg PO DAILY 12/29/23 12/17/24 extended release dexlansoprazole 60 mg 60 mg PO DAILY@0630 12/29/23 12/17/24 capsule,biphase delayed release (Dexilant) linaclotide 290 mcg capsule 290 mcg PO DAILY 12/29/23 12/17/24 (Linzess) vqskwo-wviwaaan-adzrsmh 1 cap PO TIDWM 12/29/23 12/17/24 36,000-114,000-180,000 unit capsule,delay rel (Creon) lorazepam 1 mg tablet 1 mg PO DAILY PRN Anxiety 12/29/23 12/17/24 metoclopramide HCl 5 mg tablet 5 mg PO BID 12/29/23 12/17/24 (Reglan) diclofenac sodium 1 % topical gel topical 09/01/24 12/17/24 meloxicam 15 mg tablet mg PO DAILY PRN 09/01/24 12/17/24 naproxen 500 mg tablet mg PO PRN 09/01/24 12/17/24 Previous Rx's ?Medication ?Instructions ?Recorded lancets 28 gauge (FreeStyle #100 ea 06/27/20 Lancets) BEDSIDE COMMODE #1 ea 05/14/22 FRONT-WHEELED WALKER #1 ea 05/14/22 TUB SEAT with BACK #1 ea 05/14/22 gabapentin 400 mg capsule 400 mg PO TID 30 days #90 caps 10/17/22 nebulizers (Compact Compressor #1 ea 02/28/23 Nebulizer) pyridoxine (vitamin B6) 100 mg 100 mg PO DAILY 90 days #90 tabs 07/09/23 tablet ibuprofen 800 mg tablet (IBU) 800 mg PO Q8H PRN pain/headaches 03/04/24 30 days #90 tabs hydrocortisone 1 % topical cream 1 appl topical QID PRN itching 05/21/24 #28.35 grams ondansetron 4 mg disintegrating 4 mg PO Q8H PRN nausea and 05/27/24 tablet vomiting #20 tabs montelukast 10 mg tablet 10 mg PO BEDTIME #90 tabs 07/06/24 (Singulair) hydrocortisone 2.5 % topical 1 appl topical BID-TID PRN itching 09/17/24 ointment #454 grams fluticasone propionate 220 2 puff inhalation BID #12 grams 10/13/24 mcg/actuation HFA aerosol inhaler albuterol sulfate 2.5 mg/3 mL 2.5 mg (3 mL) inhalation Q6H PRN 10/14/24 (0.083 %) solution for nebulization Shortness Of Breath Or Wheezing #180 mL albuterol sulfate 90 mcg/actuation 2 inh inhalation Q6H PRN shortness 10/14/24 breath activated powder inhaler of breath or wheezing #1 ea cholecalciferol (vitamin D3) 50 50 mcg PO DAILY 90 days #90 caps 10/14/24 mcg (2,000 unit) capsule labetalol 100 mg tablet 100 mg PO BID 90 days #180 tabs 11/26/24 budesonide-formoterol HFA 160 2 puff inhalation Q12H #1 ea 12/02/24 mcg-4.5 mcg/actuation aerosol inhaler (Symbicort) tiotropium bromide 2.5 2 puff inhalation DAILY #4 grams 12/02/24 mcg/actuation mist for inhalation (Spiriva Respimat) hydroxyzine HCl 25 mg tablet 25 mg PO DAILY anxiety #30 tabs 12/03/24 ibuprofen 400 mg tablet 400 mg PO Q6H PRN pain #20 tabs 12/12/24 tamsulosin 0.4 mg capsule (Flomax) 0.4 mg PO DAILY #7 caps 12/12/24 Allergies Allergy/AdvReac Type Severity Reaction Status Date / Time amoxicillin (AMOXICILLIN) Allergy Intermediate NAUSEA & Verified 12/21/24 11:54 VOMITING, stomach pain, vomiting, stomach upset topiramate (From TOPAMAX) Allergy Intermediate TREMORS, Verified 12/21/24 11:54 nausea and vomiting latex (LATEX) Allergy Mild RASH Verified 12/21/24 11:54 medroxyprogesterone (From Allergy Mild RASH Verified 12/21/24 11:54 PROVERA) lactose Allergy bloating , Verified 12/21/24 11:54 diarrhea Review of Systems Review of Systems: All other systems are reviewed and are negative Constitutional: Reports as per HPI and Reports no additional constitutional complaints Eyes: Reports as per HPI and Reports no additional eye complaints Reports system reviewed and no additional complaints, except as documented Cardiovascular: Reports as per HPI and Reports no additional cardiovascular complaints Respiratory: Reports as per HPI and Reports no additional respiratory complaints Gastrointestinal: Reports as per HPI and Reports no additional gastrointestinal complaints Genitourinary: Reports no additional female genitourinary complaints Musculoskeletal: Reports no additional musculoskeletal complaints Skin/Breast: Reports system reviewed and no additional complaints, except as docu Psychiatric: Reports no additional psychiatric complaints Endocrine: Reports no additional endocrine complaints Hematologic/Lymphatic: Reports no additional hematologic/lymphatic complaints Allergic/Immunologic: Reports no additional allergic/immunologic complaints Reports system reviewed and no additional complaints, except as documented and Reports Abnormal speech present [facility] Past Medical History Medical History Vitamin D deficiency Eczema Crushing injury of third toe of right foot Bilateral primary osteoarthritis of hip Obesity (BMI 30-39.9) Anxiety Benign essential hypertension Gallstones Thoracic back pain Depression Tension headache Myofascial pain Sacroiliac joint pain Post depression BMI 39.0-39.9,adult Trigger finger of left thumb Trigger finger of right thumb Insomnia Morbid obesity with BMI of 40.0-44.9, adult Smoker Carpal tunnel syndrome, bilateral Personal history of gestational diabetes Supervision of other high risk , antepartum Supervision of other normal PCOS (polycystic ovarian syndrome) control counseling Migraines Vulvar cyst Anxiety Hyperlipemia Fibromyalgia Rheumatoid arthritis Surgical History S/P laparoscopic cholecystectomy (03/06/23) H/O tubal ligation History of hip replacement, total History of esophagogastroduodenoscopy (EGD) History of removal of cyst History of tonsillectomy and adenoidectomy Family History Family History Father Medical history unknown Mother Diabetes Hypertension Maternal Aunt Breast cancer Ovarian cancer Mental health disorder Maternal Grandmother Diabetes Hypertension Social History Social History Household Members: Significant Other and Children Housing: House Alcohol intake: current Alcohol intake frequency: holidays/special occasions only Patient Tobacco Use Status: Former Tobacco user Tobacco use type: Cigarette Smoked in Last 30 Days: No e-Cigarette/Vaping Use: Never Used Second Hand Smoke Exposure: No Substance Use Type: Marijuana Substance Use Frequency: Chronic Longstanding Advance Directives: No Advance Directives Information Provided: Yes Do you have a plan to hurt others: No Plan Patient : No service: No Current occupational status: disabled Sexual orientation: Straight/Heterosexual Gender identity: Female Cognitive needs: No Hearing needs: No Vision needs: Yes (Glasses) Physical Exam Vital Signs: Vital Signs: Last Vital Signs Temp 97.8 F 12/21/24 14:55 Pulse 56 12/21/24 14:55 Resp 16 12/21/24 14:55 BP 167/90 H 12/21/24 14:55 Pulse Ox 100 12/21/24 14:55 O2 Del Method Room Air 12/21/24 14:55 BMI result Body Mass Index 38.0 Vital signs have been reviewed and appear to be correct. Blood pressure elevated. Heart rate normal. Respiratory rate normal. Temperature normal. Oxygen saturation normal. Appearance: Alert. Oriented X3. No acute distress. Head: Normal external exam. Normocephalic. Atraumatic. No Marks signs noted. No raccoon eyes noted Eyes: PERRLA. EOMI. Conjunctiva and sclera normal. Eyelids normal. ENT: TM's Normal. Pharynx normal. Uvula midline. Moist mucous membranes. No trismus noted. No drooling noted. No muffled voice noted. Neck: Normal inspection. Neck supple. FROM. No adenopathy. Thyroid Normal. No meningeal signs. No neck mass noted. CVS: Normal heart rate and rhythm. Heart sound normal. No murmurs noted. Pulses normal throughout. Respiratory: No respiratory distress. Painless inspiration. Breath sounds normal. No wheezes/rales/rhonchi noted. Chest nontender. No accessory muscle usage noted or decreased air movement noted. Abdomen: Soft and nontender. Bowel sounds normal in all 4 quadrants. No distention noted. No organomegaly noted. No visible injury noted. Back: R CVA tenderness. Full range of motion noted. Skin: Skin warm and dry. Normal skin color. Normal skin turgor. No rashes/lesions/lacerations noted. Extremities: Right hip: No deformity, no step-off, FROM, No lower extremity edema. Extremities exhibit normal range of motion. Extremities nontender. Neuro: Oriented X 3. Cranial nerve exam: II-XII are grossly intact No motor deficit. No sensory deficit. Reflexes normal. Course Course Course Narrative: This is an RME performed by Latasha Luong CNP: Additional HPI, ROS, PE not included below will be deferred to primary provider. Patient is a 34-year-old female who presents emergency department for evaluation of lower back and right hip pain. Admits that she had a right hip replacement through [facility] in 2022. She states that she has previously experienced pain since the surgery but can not quantify how frequently this occurs as she can not think due to her degree of pain. This exacerbation of pain has been over the past week. She was advised to come to the emergency department by Orthopedic office as they thought she may have a ?dislocation after calling, no reported fall or injury, endorsing numbness and weakness to the leg. Reports pain is severe 10/10 not relived with home medications, requesting analgesia in the ED Exam: Decreased AROM, ambulatory with antalgic gait, 2+DP/PT pulse Plan: XR right hip/pelvis Reevaluation(s) Reevaluation #1: Right hip with history of previous total hip replacement, kidney stone with no obstructing ureteral stone, UA shows no hematuria, no UTI or pyelonephritis on CT. Patient feels much better after Dilaudid and Toradol, able to ambulate in the ED with steady gait, patient was instructed to follow-up with her orthopedic tomorrow. Time: 18:27 Medications Administered Discontinued Medications Generic Name Dose Route Start Last Admin Trade Name Freq PRN Reason Stop Dose Admin Hydromorphone HCl 2 mg 12/21/24 14:57 12/21/24 15:20 Hydromorphone Hcl 2 Mg/Ml Vial IVPUSH 12/21/24 14:58 2 mg ONCE ONE Administration Protocol Ketorolac Tromethamine 15 mg 12/21/24 14:57 12/21/24 15:20 Ketorolac Tromethamine 15 Mg/Ml Vial IVPUSH 12/21/24 14:58 15 mg ONCE ONE Administration Medical Decision Making Differential Diagnosis Differential Diagnoses: The differential diagnosis associated with the presentation includes (Right kidney stone, right hip dislocation, right hip fracture, electrolyte derangement, severe anemia, UTI, pyelonephritis.) Admission/Observation Consideration of admission/observation: Escalation of care including admission/observation considered Lab Data MDM Lab Attestation statement: I reviewed the patient's lab results. 12/21/24 14:55 12/21/24 14:55 Labs: Lab Results 12/21/24 Range/Units 14:55 WBC 7.5 (4.8-10.8) X10*3/uL RBC 3.83 L (4.20-5.50) X10*6/uL Hgb 10.3 L (12.0-16.0) g/dl Hct 32.8 L (37.0-47.0) % MCV 85.6 (80.0-98.0) fL MCH 26.9 L (27.0-33.0) pg MCHC 31.4 (31.0-35.0) g/dl RDW 14.8 (11.0-16.0) % Plt Count 236 (160-400) X10*3/uL MPV 11.0 (9.4-12.3) fL Immature Gran % (Auto) 0.3 (0.0-0.4) % Neut % (Auto) 57.6 (45-73) % Lymph % (Auto) 28.8 (20-40) % Bibb % (Auto) 11.0 (2-11) % Eos % (Auto) 1.6 (0-4) % Baso % (Auto) 0.7 (0-2) % Lymph # (Auto) 2.2 (1.2-4.9) X10*3/uL Bibb # (Auto) 0.8 (0.1-1.2) X10*3/uL Eos # (Auto) 0.1 (0.0-0.4) X10*3/uL Baso # (Auto) 0.1 (0.0-0.2) X10*3/uL Abs Immat Gran (auto) 0.02 (0.00-0.03) X10*3/uL Absolute Neuts (auto) 4.3 (2.0-8.3) x10*3/uL Absolute Nucleated RBC 0.000 (0.0-0.012) X10*3/uL Nucleated RBC % (auto) 0.0 (0.0-0.2) /100WBC Sodium 142 (135-145) mmol/L Potassium 3.6 (3.3-5.1) mmol/L Chloride 113 H (96-108) mmol/L Carbon Dioxide 25 (22-29) mmol/L Anion Gap 8 L (12-20) BUN 7 L (9-16) mg/dL Creatinine 0.60 (0.5-1.4) mg/dL Estim Creat Clear Calc 134.6 Estimated GFR > 60 Random Glucose 81 (60-115) mg/dL Calcium 8.3 L D (8.4-10.2) mg/dL Urine Color Yellow Urine Appearance Cloudy Urine pH 8.0 (5.0-9.0) Ur Specific [place] 1.020 (1.005-1.025) Urine Protein Negative (Neg-Trace) mg/dL Urine Glucose (UA) Negative (Negative) mg/dL Urine Ketones Trace (Negative) mg/dL Urine Blood Negative (Negative) Urine Nitrite Negative (Negative) Ur Leukocyte Esterase Trace H (Negative) Urine RBC 0-2 (0-2) /HPF Urine WBC 6-10 H (0-5) /HPF Ur Squamous Epith Cells >20 (0-2) /HPF Urine Bacteria 4+ (None Seen) Hyaline Casts 0-2 (0-2) /LPF Urine Test NEGATIVE (NEGATIVE) Independent Interpretation I performed an independent interpretation of an: Plain X-Ray (Right hip:Status post right total hip arthroplasty. ) and CT Scan (Abdomen and pelvis:1. Possible mesenteric panniculitis. 2. Mild right hydronephrosis with scattered subcentimeter renal calculi measuring no more than 3 mm. 3. Suspect ruptured adnexal cysts with trace free pelvic fluid.) Radiology Impression Discussion of test interpretation with radiology: I have reviewed the radiologist's reading. Discharge Plan Discharge Clinical Impression: Arthralgia of hip, right Patient Disposition: Home, Self-Care Instructions: Arthralgia (ED) Additional Instructions: Take [id number]-[id number] ibuprofen 200 mg tablet every 6 hours if needed for pain. Contact your for orthopedic doctor and make an appointment with him. Prescriptions: No Action (DME) FRONT-WHEELED WALKER See Rx Instructions .Route .MEDSUPPLY Qty: 1 0RF Rx Instructions: As directed (DME) TUB SEAT with BACK See Rx Instructions .Route .MEDSUPPLY Qty: 1 0RF Rx Instructions: As directed (DME) BEDSIDE COMMODE See Rx Instructions .Route .MEDSUPPLY Qty: 1 0RF Rx Instructions: As directed gabapentin 400 mg capsule 400 mg PO TID 30 Days Qty: 90 3RF Rx Instructions: 1 capsule Orally Three times a day ibuprofen [IBU] 800 mg tablet 800 mg PO Q8H PRN (Reason: pain/headaches) 30 Days Qty: 90 0RF Rx Instructions: Take with food montelukast [Singulair] 10 mg tablet 10 mg PO BEDTIME Qty: 90 1RF fluticasone propionate 220 mcg/actuation HFA aerosol inhaler 2 puff inhalation BID Qty: 12 3RF albuterol sulfate 2.5 mg /3 mL (0.083 %) solution for nebulization 2.5 mg inhalation Q6H PRN (Reason: Shortness Of Breath Or Wheezing) Qty: 180 3RF albuterol sulfate 90 mcg/actuation aerosol powdr breath activated 2 inh inhalation Q6H PRN (Reason: shortness of breath or wheezing) Qty: 1 6RF labetalol 100 mg tablet 100 mg PO BID 90 Days Qty: 180 1RF hydroxyzine HCl 25 mg tablet 25 mg PO DAILY Qty: 30 0RF metoclopramide HCl [Reglan] 5 mg tablet 5 mg PO BID lorazepam 1 mg tablet 1 mg PO DAILY PRN (Reason: Anxiety) bupropion HCl 300 mg tablet extended release 24 hr 300 mg PO DAILY dexlansoprazole [Dexilant] 60 mg capsule,biphase delayed releas 60 mg PO DAILY@0630 Linzess 290 mcg capsule 290 mcg PO DAILY Creon 36,000-114,000- 180,000 unit capsule,delayed release(DR/EC) 1 cap PO TIDWM hydrocortisone 1 % cream 1 appl topical QID PRN (Reason: itching) Qty: 28.35 0RF ondansetron 4 mg tablet,disintegrating 4 mg PO Q8H PRN (Reason: nausea and vomiting) Qty: 20 0RF tamsulosin [Flomax] 0.4 mg capsule 0.4 mg PO DAILY Qty: 7 0RF ibuprofen 400 mg tablet 400 mg PO Q6H PRN (Reason: pain) Qty: 20 0RF sertraline 100 mg tablet 100 mg PO DAILY (DME) nebulizers [Compact Compressor Nebulizer] Misc See Rx Instructions .Route Qty: 1 0RF Rx Instructions: As directed (DME) lancets [FreeStyle Lancets] 28 gauge misc See Rx Instructions .ROUTE .MEDSUPPLY Qty: 100 1RF Rx Instructions: 4 times/day pyridoxine (vitamin B6) 100 mg tablet 100 mg PO DAILY 90 Days Qty: 90 1RF cholecalciferol (vitamin D3) 50 mcg (2,000 unit) capsule 50 mcg PO DAILY 90 Days Qty: 90 3RF naproxen 500 mg tablet PO PRN diclofenac sodium 1 % gel topical meloxicam 15 mg tablet PO DAILY PRN hydrocortisone 2.5 % ointment 1 appl topical BID-TID PRN (Reason: itching) Qty: 454 1RF budesonide-formoterol [Symbicort] 160-4.5 mcg/actuation HFA aerosol inhaler 2 puff inhalation Q12H Qty: 1 3RF Spiriva Respimat 2.5 mcg/actuation mist 2 puff inhalation DAILY Qty: 4 3RF Print Language: Citizen Of [place]
[2024-12-21 11:51] VITALS: BP 119/71; PULSE 77; RESP 16; TEMP 36.2; O2SAT 100; BMI 38.0
[2024-12-21 14:55] VITALS: BP 167/90; PULSE 56; RESP 16; TEMP 36.6; O2SAT 100
[2024-12-21 15:29] LABS: MANUAL DIFF FLAG NO
[2024-12-21 15:34] LABS: Appearance Urine Cloudy; Glucose Urine UA Negative (Negative); PH 8.0 (5.0-9.0); Specific Gravity - Urine 1.020 (1.005-1.025); UMIC TRIGGER UACC YES
[2024-12-21 15:37] LABS: Hematocrit 32.8 % (37.0-47.0); Hemoglobin 10.3 g/dl (12.0-16.0); Imm Gran Abs Auto 0.02 X10*3/uL (0.00-0.03); Imm Gran Pct Auto 0.3 % (0.0-0.4); Lymphocytes Absolute Auto 2.2 X10*3/uL (1.2-4.9); Mean Corpuscular HGB Conc 31.4 g/dl (31.0-35.0); Mean Corpuscular Hemoglobin 26.9 pg (27.0-33.0); Mean Corpuscular Volume 85.6 fL (80.0-98.0); NRBC Abs Auto 0.000 X10*3/uL (0.0-0.012); NRBC Pct Auto 0.0 /100WBC (0.0-0.2); Platelet Count 236 X10*3/uL (160-400); Red Blood Count 3.83 X10*6/uL (4.20-5.50); White Blood Count 7.5 X10*3/uL (4.8-10.8)
[2024-12-21 15:44] LABS: Anion Gap 8 (12-20); Blood Urea Nitrogen 7 mg/dL (9-16); Calcium 8.3 mg/dL (8.4-10.2); Carbon Dioxide 25 mmol/L (22-29); Chloride 113 mmol/L (96-108); Creatinine Clr Calc Pharmacy 134.6; Estimated Glomerular Filt Rate > 60; Potassium 3.6 mmol/L (3.3-5.1); Sodium 142 mmol/L (135-145)
[2024-12-21 16:00] LABS: UACC Culture Trigger YES
[2024-12-21 17:34] LABS: UPreg QC Valid YES
[2024-12-21 18:48] VITALS: BP 167/90; PULSE 56; RESP 16; TEMP 36.6; O2SAT 100
== END 2024-12-21 18:48 | disposition home or self-care (01) ==
PROVIDERS: Emergency Provider Emergency Medicine; PCP Internal Medicine
DX: M25.551 Pain in right hip (principal); R10.2 Pelvic and perineal pain; Z79.899 Other long term (current) drug therapy; Z87.891 Personal history of nicotine dependence
CPT/HCPCS: 36415; 73502; 74176; 80048; 81001; 81025; 85025; 87086; 96374; 96375; 99284; J1171; J1885

== ENCOUNTER → 2024-12-21 11:55 | Outpatient (BNV) | payer OTHER, SELFPAY | PROVIDERS: PCP Internal Medicine; Visit Provider Radiology Diagnostic Radiology | DX: R10.9 Unspecified abdominal pain (principal); M25.551 Pain in right hip; Z96.641 Presence of right artificial hip joint | CPT/HCPCS: 73502; 74176 ==

== ENCOUNTER 2024-12-25 01:56 | Emergency (ER) | payer OTHER, SELFPAY ==
--- NOTE | ~2024-12-25 | XR_ITS ---
CLINICAL HISTORY: pain --- Additional Notes or Special Instructions: constipation? 1 view abdomen Comparison: CT/SR - ABDOMEN ABD_PEL_WITHOUT (ADULT) - 12/21/24 17:28 EDT CR - XR KUB - 12/09/24 07:42 EDT Findings: Air-filled loops of nondilated large and small bowel are seen throughout the abdomen and pelvis. No differential dilatation is identified to suggest obstruction. No indirect evidence for free air seen on this supine exam. Cholecystectomy clips are present in the right upper quadrant. Bilateral hip arthroplasties are again identified. Lung bases are clear. IMPRESSION: No findings of bowel obstruction. This document has been electronically signed by: Luan Barnard MD on 12/25/2024 03:45:03
[2024-12-25 01:57] VITALS: BP 133/67; PULSE 64; RESP 16; TEMP 35.8; O2SAT 100; BMI 37.6
[2024-12-25 02:25] LABS: MANUAL DIFF FLAG NO
[2024-12-25 02:27] LABS: Hematocrit 31.2 % (37.0-47.0); Hemoglobin 10.4 g/dl (12.0-16.0); Imm Gran Abs Auto 0.02 X10*3/uL (0.00-0.03); Imm Gran Pct Auto 0.3 % (0.0-0.4); Lymphocytes Absolute Auto 2.5 X10*3/uL (1.2-4.9); Mean Corpuscular HGB Conc 33.3 g/dl (31.0-35.0); Mean Corpuscular Hemoglobin 27.9 pg (27.0-33.0); Mean Corpuscular Volume 83.6 fL (80.0-98.0); NRBC Abs Auto 0.000 X10*3/uL (0.0-0.012); NRBC Pct Auto 0.0 /100WBC (0.0-0.2); Platelet Count 227 X10*3/uL (160-400); Red Blood Count 3.73 X10*6/uL (4.20-5.50); White Blood Count 7.3 X10*3/uL (4.8-10.8)
[2024-12-25 02:28] LABS: Appearance Urine Clear; Glucose Urine UA Negative (Negative); PH 6.5 (5.0-9.0); Specific Gravity - Urine <= 1.005 (1.005-1.025)
[2024-12-25 02:31] LABS: UPreg QC Valid YES
[2024-12-25 02:45] LABS: Anion Gap 12 (12-20); Blood Urea Nitrogen 10 mg/dL (9-16); Calcium 8.4 mg/dL (8.4-10.2); Carbon Dioxide 23 mmol/L (22-29); Chloride 111 mmol/L (96-108); Creatinine Clr Calc Pharmacy 125.5; Estimated Glomerular Filt Rate > 60; Potassium 3.9 mmol/L (3.3-5.1); Sodium 142 mmol/L (135-145)
--- NOTE | 2024-12-25 03:59 | ED.GENADULT ---
HPI - General Adult General Chief complaint: Abdominal Pain Stated complaint: lower back pain Time Seen by Provider: 12/25/24 02:52 Source: patient Limitations: no limitations History of Present Illness ED Provider: Lesly Barney PA-C HPI narrative: 34-year-old female who is morbidly obese with a history of chronic constipation, asthma, anxiety, ADHD, bipolar disorder, GERD, hypertension, PCOS, fibromyalgia, migraine and hyperlipidemia who presents with ongoing constipation. Patient states she was seen 3 days ago, had a negative CT scan. Patient is back because she still is not having bowel movements. She states she is prescribed Linzess. Denies nausea vomiting. Related Data Home Medications ?Medication ?Instructions ?Recorded ?Confirmed sertraline 100 mg tablet 100 mg PO DAILY 08/22/20 12/17/24 bupropion HCl 300 mg 24 hr tablet, 300 mg PO DAILY 12/29/23 12/17/24 extended release qvojqu-umjaprbj-ublrmnb 1 cap PO TIDWM 12/29/23 12/17/24 36,000-114,000-180,000 unit capsule,delay rel (Creon) lorazepam 1 mg tablet 1 mg PO DAILY PRN Anxiety 12/29/23 12/17/24 metoclopramide HCl 5 mg tablet 5 mg PO BID 12/29/23 12/17/24 (Reglan) diclofenac sodium 1 % topical gel topical 09/01/24 12/17/24 meloxicam 15 mg tablet mg PO DAILY PRN 09/01/24 12/17/24 naproxen 500 mg tablet mg PO PRN 09/01/24 12/17/24 Previous Rx's ?Medication ?Instructions ?Recorded lancets 28 gauge (FreeStyle #100 ea 06/27/20 Lancets) BEDSIDE COMMODE #1 ea 05/14/22 FRONT-WHEELED WALKER #1 ea 05/14/22 TUB SEAT with BACK #1 ea 05/14/22 gabapentin 400 mg capsule 400 mg PO TID 30 days #90 caps 10/17/22 nebulizers (Compact Compressor #1 ea 02/28/23 Nebulizer) pyridoxine (vitamin B6) 100 mg 100 mg PO DAILY 90 days #90 tabs 07/09/23 tablet ibuprofen 800 mg tablet (IBU) 800 mg PO Q8H PRN pain/headaches 03/04/24 30 days #90 tabs hydrocortisone 1 % topical cream 1 appl topical QID PRN itching 05/21/24 #28.35 grams ondansetron 4 mg disintegrating 4 mg PO Q8H PRN nausea and 05/27/24 tablet vomiting #20 tabs montelukast 10 mg tablet 10 mg PO BEDTIME #90 tabs 07/06/24 (Singulair) hydrocortisone 2.5 % topical 1 appl topical BID-TID PRN itching 09/17/24 ointment #454 grams fluticasone propionate 220 2 puff inhalation BID #12 grams 10/13/24 mcg/actuation HFA aerosol inhaler albuterol sulfate 2.5 mg/3 mL 2.5 mg (3 mL) inhalation Q6H PRN 10/14/24 (0.083 %) solution for nebulization Shortness Of Breath Or Wheezing #180 mL albuterol sulfate 90 mcg/actuation 2 inh inhalation Q6H PRN shortness 10/14/24 breath activated powder inhaler of breath or wheezing #1 ea cholecalciferol (vitamin D3) 50 50 mcg PO DAILY 90 days #90 caps 10/14/24 mcg (2,000 unit) capsule labetalol 100 mg tablet 100 mg PO BID 90 days #180 tabs 11/26/24 budesonide-formoterol HFA 160 2 puff inhalation Q12H #1 ea 12/02/24 mcg-4.5 mcg/actuation aerosol inhaler (Symbicort) tiotropium bromide 2.5 2 puff inhalation DAILY #4 grams 12/02/24 mcg/actuation mist for inhalation (Spiriva Respimat) hydroxyzine HCl 25 mg tablet 25 mg PO DAILY anxiety #30 tabs 12/03/24 ibuprofen 400 mg tablet 400 mg PO Q6H PRN pain #20 tabs 12/12/24 tamsulosin 0.4 mg capsule (Flomax) 0.4 mg PO DAILY #7 caps 12/12/24 linaclotide 290 mcg capsule 290 mcg PO DAILY #30 caps 12/23/24 (Linzess) dexlansoprazole 60 mg 60 mg PO DAILY #30 caps 12/24/24 capsule,biphase delayed release (Dexilant) Allergies Allergy/AdvReac Type Severity Reaction Status Date / Time amoxicillin (AMOXICILLIN) Allergy Intermediate NAUSEA & Verified 12/25/24 02:01 VOMITING, stomach pain, vomiting, stomach upset topiramate (From TOPAMAX) Allergy Intermediate TREMORS, Verified 12/25/24 02:01 nausea and vomiting latex (LATEX) Allergy Mild RASH Verified 12/25/24 02:01 medroxyprogesterone (From Allergy Mild RASH Verified 12/25/24 02:01 PROVERA) lactose Allergy bloating , Verified 12/25/24 02:01 diarrhea Review of Systems Review of Systems: Yes all other systems are reviewed and are negative Constitutional: Constitutional: Denies fatigue and Denies fever(s) Cardiovascular: Cardiovascular: Denies chest pain and Denies dyspnea Respiratory: Respiratory: Denies dyspnea Gastrointestinal: Gastrointestinal: Reports abdominal pain, Reports constipation, Denies nausea and Denies vomiting Endocrine: Endocrine: Denies fatigue PMFSH Past Medical History Attestation statement: The following information was validated with the patient. Medical History Vitamin D deficiency Eczema Crushing injury of third toe of right foot Bilateral primary osteoarthritis of hip Obesity (BMI 30-39.9) Anxiety Benign essential hypertension Gallstones Thoracic back pain Depression Tension headache Myofascial pain Sacroiliac joint pain Post depression BMI 39.0-39.9,adult Trigger finger of left thumb Trigger finger of right thumb Insomnia Morbid obesity with BMI of 40.0-44.9, adult Smoker Carpal tunnel syndrome, bilateral Personal history of gestational diabetes Supervision of other high risk , antepartum Supervision of other normal PCOS (polycystic ovarian syndrome) control counseling Migraines Vulvar cyst Anxiety Hyperlipemia Fibromyalgia Rheumatoid arthritis Surgical History S/P laparoscopic cholecystectomy (03/06/23) H/O tubal ligation History of hip replacement, total History of esophagogastroduodenoscopy (EGD) History of removal of cyst History of tonsillectomy and adenoidectomy Family History Family History Father Medical history unknown Mother Diabetes Hypertension Maternal Aunt Breast cancer Ovarian cancer Mental health disorder Maternal Grandmother Diabetes Hypertension Social History Social History Household Members: Significant Other and Children Housing: House Alcohol intake: current Alcohol intake frequency: holidays/special occasions only Patient Tobacco Use Status: Former Tobacco user Tobacco use type: Cigarette e-Cigarette/Vaping Use: Never Used Second Hand Smoke Exposure: No Substance Use Type: Marijuana Advance Directives: No Do you have a plan to hurt others: No Plan service: No Current occupational status: disabled Sexual orientation: Straight/Heterosexual Gender identity: Female Cognitive needs: No Hearing needs: No Vision needs: Yes (Glasses) Physical Exam ED Vital Signs: Vital Signs - 24 hr 12/25/24 01:57 Temperature 96.4 F L Pulse Rate 64 Respiratory Rate 16 Blood Pressure 133/67 Pulse Oximetry 100 Oxygen Delivery Method Room Air BMI result Body Mass Index 37.6 Const Other: Alert Orientation/consciousness: patient oriented x3 Resp Effort & Inspection: normal respiratory effort Cardio Other: Normal peripheral perfusion GI Other: Abdomen is soft, nondistended, obese abdomen Skin Other: Warm dry no rash Neuro General: patient oriented x3, gait normal, no focal motor deficits and CN's II-XI intact bilaterally Psych Other: Cooperative Medical Decision Making Medical Decision Making MDM Narrative: 34-year-old female who is morbidly obese with a history of chronic constipation, asthma, anxiety, ADHD, bipolar disorder, GERD, hypertension, PCOS, fibromyalgia, migraine and hyperlipidemia who presents with ongoing constipation. Patient states she was seen 3 days ago, had a negative CT scan. Patient is back because she still is not having bowel movements. She states she is prescribed Linzess. Denies nausea vomiting. Problem: Known constipation History: Per patient I have considered the following differential diagnoses: Bowel obstruction, constipation, obstipation, fecal impaction Plan: Screening labs were obtained everything is at her baseline, I obtain a KUB, she is still constipated. There was no pattern to suggest obstruction on the x-ray. Have advised the patient she needs to implement and aggressive bowel regimen, discontinue the Linzess for now. I have independently reviewed the following tests: Labs: No leukocytosis, not anemic, no electrolyte abnormality, not KUB:Findings: Air-filled loops of nondilated large and small bowel are seen throughout the abdomen and pelvis. No differential dilatation is identified to suggest obstruction. No indirect evidence for free air seen on this supine exam. Cholecystectomy clips are present in the right upper quadrant. Bilateral hip arthroplasties are again identified. Lung bases are clear. IMPRESSION: No findings of bowel obstruction. Lab Data 12/25/24 02:13 12/25/24 02:14 Labs: Lab Results 12/25/24 12/25/24 12/25/24 Range/Units 02:13 02:14 02:20 WBC 7.3 (4.8-10.8) X10*3/uL RBC 3.73 L (4.20-5.50) X10*6/uL Hgb 10.4 L (12.0-16.0) g/dl Hct 31.2 L (37.0-47.0) % MCV 83.6 (80.0-98.0) fL MCH 27.9 (27.0-33.0) pg MCHC 33.3 (31.0-35.0) g/dl RDW 15.0 (11.0-16.0) % Plt Count 227 (160-400) X10*3/uL MPV 10.5 (9.4-12.3) fL Immature Gran % (Auto) 0.3 (0.0-0.4) % Neut % (Auto) 50.9 (45-73) % Lymph % (Auto) 34.3 (20-40) % [place] % (Auto) 11.5 H (2-11) % Eos % (Auto) 2.5 (0-4) % Baso % (Auto) 0.5 (0-2) % Lymph # (Auto) 2.5 (1.2-4.9) X10*3/uL [place] # (Auto) 0.8 (0.1-1.2) X10*3/uL Eos # (Auto) 0.2 (0.0-0.4) X10*3/uL Baso # (Auto) 0.0 (0.0-0.2) X10*3/uL Abs Immat Gran (auto) 0.02 (0.00-0.03) X10*3/uL Absolute Neuts (auto) 3.7 (2.0-8.3) x10*3/uL Absolute Nucleated RBC 0.000 (0.0-0.012) X10*3/uL Nucleated RBC % (auto) 0.0 (0.0-0.2) /100WBC Sodium 142 (135-145) mmol/L Potassium 3.9 (3.3-5.1) mmol/L Chloride 111 H (96-108) mmol/L Carbon Dioxide 23 (22-29) mmol/L Anion Gap 12 (12-20) BUN 10 (9-16) mg/dL Creatinine 0.64 (0.5-1.4) mg/dL Estim Creat Clear Calc 125.5 Estimated GFR > 60 Random Glucose 100 (60-115) mg/dL Calcium 8.4 (8.4-10.2) mg/dL Urine Color Yellow Urine Appearance Clear Urine pH 6.5 (5.0-9.0) Ur Specific [place] <= 1.005 (1.005-1.025) Urine Protein Negative (Neg-Trace) mg/dL Urine Glucose (UA) Negative (Negative) mg/dL Urine Ketones Negative (Negative) mg/dL Urine Blood Negative (Negative) Urine Nitrite Negative (Negative) Ur Leukocyte Esterase Negative (Negative) Urine Test NEGATIVE (NEGATIVE) Discharge Plan Discharge Clinical Impression: Constipation Patient Disposition: Home, Self-Care Instructions: Constipation (ED) Additional Instructions: All of your screening labs were normal, you were found to be constipated. See home care instructions. Purchase [id number] Colace, take it twice a day. Purchase hiym-ust-knxyuvr MiraLax, drink it every hour, until you begin having multiple large volume bowel movements. You need to use it until you start defecating clear fluid. Follow up with your primary care provider as needed. Prescriptions: No Action (DME) FRONT-WHEELED WALKER See Rx Instructions .Route .MEDSUPPLY Qty: 1 0RF Rx Instructions: As directed (DME) TUB SEAT with BACK See Rx Instructions .Route .MEDSUPPLY Qty: 1 0RF Rx Instructions: As directed (DME) BEDSIDE COMMODE See Rx Instructions .Route .MEDSUPPLY Qty: 1 0RF Rx Instructions: As directed gabapentin 400 mg capsule 400 mg PO TID 30 Days Qty: 90 3RF Rx Instructions: 1 capsule Orally Three times a day ibuprofen [IBU] 800 mg tablet 800 mg PO Q8H PRN (Reason: pain/headaches) 30 Days Qty: 90 0RF Rx Instructions: Take with food montelukast [Singulair] 10 mg tablet 10 mg PO BEDTIME Qty: 90 1RF fluticasone propionate 220 mcg/actuation HFA aerosol inhaler 2 puff inhalation BID Qty: 12 3RF albuterol sulfate 2.5 mg /3 mL (0.083 %) solution for nebulization 2.5 mg inhalation Q6H PRN (Reason: Shortness Of Breath Or Wheezing) Qty: 180 3RF albuterol sulfate 90 mcg/actuation aerosol powdr breath activated 2 inh inhalation Q6H PRN (Reason: shortness of breath or wheezing) Qty: 1 6RF labetalol 100 mg tablet 100 mg PO BID 90 Days Qty: 180 1RF hydroxyzine HCl 25 mg tablet 25 mg PO DAILY Qty: 30 0RF Linzess 290 mcg capsule 290 mcg PO DAILY Qty: 30 0RF dexlansoprazole [Dexilant] 60 mg capsule,biphase delayed releas 60 mg PO DAILY Qty: 30 0RF metoclopramide HCl [Reglan] 5 mg tablet 5 mg PO BID lorazepam 1 mg tablet 1 mg PO DAILY PRN (Reason: Anxiety) bupropion HCl 300 mg tablet extended release 24 hr 300 mg PO DAILY Creon 36,000-114,000- 180,000 unit capsule,delayed release(DR/EC) 1 cap PO TIDWM hydrocortisone 1 % cream 1 appl topical QID PRN (Reason: itching) Qty: 28.35 0RF ondansetron 4 mg tablet,disintegrating 4 mg PO Q8H PRN (Reason: nausea and vomiting) Qty: 20 0RF tamsulosin [Flomax] 0.4 mg capsule 0.4 mg PO DAILY Qty: 7 0RF ibuprofen 400 mg tablet 400 mg PO Q6H PRN (Reason: pain) Qty: 20 0RF sertraline 100 mg tablet 100 mg PO DAILY (DME) nebulizers [Compact Compressor Nebulizer] Misc See Rx Instructions .Route Qty: 1 0RF Rx Instructions: As directed (DME) lancets [FreeStyle Lancets] 28 gauge misc See Rx Instructions .ROUTE .MEDSUPPLY Qty: 100 1RF Rx Instructions: 4 times/day pyridoxine (vitamin B6) 100 mg tablet 100 mg PO DAILY 90 Days Qty: 90 1RF cholecalciferol (vitamin D3) 50 mcg (2,000 unit) capsule 50 mcg PO DAILY 90 Days Qty: 90 3RF naproxen 500 mg tablet PO PRN diclofenac sodium 1 % gel topical meloxicam 15 mg tablet PO DAILY PRN hydrocortisone 2.5 % ointment 1 appl topical BID-TID PRN (Reason: itching) Qty: 454 1RF budesonide-formoterol [Symbicort] 160-4.5 mcg/actuation HFA aerosol inhaler 2 puff inhalation Q12H Qty: 1 3RF Spiriva Respimat 2.5 mcg/actuation mist 2 puff inhalation DAILY Qty: 4 3RF Print Language: Chinese
[2024-12-25 04:20] VITALS: BP 154/83; PULSE 62; RESP 20; TEMP 36.7; O2SAT 99
== END 2024-12-25 04:21 | disposition home or self-care (01) ==
PROVIDERS: Emergency Provider Emergency Medicine; PCP Internal Medicine
DX: K59.00 Constipation, unspecified (principal); E66.9 Obesity, unspecified; Z68.37 Body mass index [BMI] 37.0-37.9, adult
CPT/HCPCS: 36415; 74018; 80048; 81003; 81025; 85025; 99282; 99283

== ENCOUNTER → 2024-12-25 02:57 | Outpatient (BNV) | payer OTHER, SELFPAY | PROVIDERS: PCP Internal Medicine; Visit Provider Radiology Diagnostic Radiology | DX: R10.9 Unspecified abdominal pain (principal) | CPT/HCPCS: 74018 ==

== ENCOUNTER 2025-01-01 11:30 | Outpatient (AMB) | payer OTHER, SELFPAY ==
[2025-01-01 11:41] VITALS: BP 118/76; PULSE 67; O2SAT 98; BMI 37.0
--- NOTE | 2025-01-01 11:41 | A.OFFPC_ITS ---
Vital Signs 01/01/25 11:41 Height 5 ft 1 in Weight 196 lb BMI 37.0 BP 118/76 Blood Pressure Location Lt brachial Position Sitting Pulse 67 Pulse Source Pulse Oximeter Pulse Oximetry (%) 98 Oxygen Delivery Method Room Air Intake [place] [facility] [place] [facility] Required: No Accompanied by: Self / Same As Patient Allergies amoxicillin (AMOXICILLIN) Allergy (Intermediate, Verified 01/01/25 11:42) NAUSEA & VOMITING, stomach pain, vomiting, stomach upset topiramate (From TOPAMAX) Allergy (Intermediate, Verified 01/01/25 11:42) TREMORS, nausea and vomiting latex (LATEX) Allergy (Mild, Verified 01/01/25 11:42) RASH medroxyprogesterone (From PROVERA) Allergy (Mild, Verified 01/01/25 11:42) RASH lactose Allergy (Verified 01/01/25 11:42) bloating , diarrhea Tobacco use date assessed: 01/01/25 Dental Screening Dental Screen Date: 01/01/25 Did you have a dental visit in the last 12 months?: Yes Did you have a dental problem in the last 6 months where you did not have access to dental care?: No Was dental information given to patient?: Patient has dentist HPI HPI Comments History of Present Illness Details 34 y/o Female patient who presents to [facility] for EDF. Past medical history significant for chronic constipation, asthma, anxiety, ADHD, bipolar disorder, GERD, hypertension, PCOS, fibromyalgia, migraine and hyperlipidemia. Patient was [place] [facility] [place] for an evaluation and treatment for Constipation. Pt had CT abdomen 12/21 showed: Mild right hydronephrosis with scattered subcentimeter renal calculi measuring no more than 3 mm. Constipation: She has had frequent Bowel movements since discharged. She continues on Linzess. has an appointment with GI 02/01. Renal Calculi: Resolved, denies symptoms. Right Hip pain: Managed by Orthopedics. Ortho believes the pain is from lower back and not Hips - All imaging of Hips negative. Had MRI of back pending results - has an appointment with Ortho coming up. Patient has had 2 previous ED admissions; 12/12 for Kidney Stone and 12/21 for right Hip Pain. [facility] Medical History Vitamin D deficiency Eczema Crushing injury of third toe of right foot Bilateral primary osteoarthritis of hip Obesity (BMI 30-39.9) Anxiety Benign essential hypertension Gallstones Thoracic back pain Depression Tension headache Myofascial pain Sacroiliac joint pain Post depression BMI 39.0-39.9,adult Trigger finger of left thumb Trigger finger of right thumb Insomnia Morbid obesity with BMI of 40.0-44.9, adult Smoker Carpal tunnel syndrome, bilateral Personal history of gestational diabetes Supervision of other high risk , antepartum Supervision of other normal PCOS (polycystic ovarian syndrome) control counseling Migraines Vulvar cyst Anxiety Hyperlipemia Fibromyalgia Rheumatoid arthritis Surgical History S/P laparoscopic cholecystectomy (03/06/23) H/O tubal ligation History of hip replacement, total History of esophagogastroduodenoscopy (EGD) History of removal of cyst History of tonsillectomy and adenoidectomy Family History Father Medical history unknown Mother Diabetes Hypertension Maternal Aunt Breast cancer Ovarian cancer Mental health disorder Maternal Grandmother Diabetes Hypertension Social History Household Members: Significant Other and Children Housing: House Alcohol intake: current Alcohol intake frequency: holidays/special occasions only Patient Tobacco Use Status: Former Tobacco user Tobacco use type: Cigarette e-Cigarette/Vaping Use: Never Used Second Hand Smoke Exposure: No Substance Use Type: Marijuana service: No Current occupational status: disabled Sexual orientation: Straight/Heterosexual Gender identity: Female Cognitive needs: No Hearing needs: No Vision needs: Yes (Glasses) Female Reproductive History Menstrual Age of Menarche: 8 Questionnaire PHQ-9 Over the last 2 weeks, how often have you been bothered by any of the following problems? 1. Little interest or pleasure in doing things: more than half the days 2. Feeling down, depressed, or hopeless: more than half the days 3. Trouble falling or staying asleep, or sleeping too much: more than half the days 4. Feeling tired or having little energy: nearly every day 5. Poor appetite or overeating: more than half the days 6. Feeling bad about yourself - or that you are a failure or have let yourself or your family down: more than half the days 7. Trouble concentrating on things, such as reading the newspaper or watching television: nearly every day 8. Moving or speaking so slowly that other people could have noticed. Or the opposite - being so fidgety or restless that you have been moving around a lot more than usual: more than half the days 9. Thoughts that you would be better off or of hurting yourself in some way: not at all Total score: 18 Depression Screening Interpretation: Positive Depression Screening Follow-up: Existing condition and In treatment Depression Screening Done: Yes 05260 - PHQ-9 Billing: Yes Source: Developed by Drs. Cuco Richards, Itzel Ordaz, Eliud Ladd and colleagues, with an educational lino from [employer]. Thrive Questionnaire Date Thrive assessed: 01/01/25 I am a: Patient What is your living situation today?: I have a steady place to live Within the past 12 months, did the food you bought not last and you didn't have the money to get more?: Never true Within the past 12 months, did you worry whether your food would run out before you got money to buy more?: Sometimes True Do you have trouble paying for medicines?: No Do you have trouble getting transportation to medical appointments?: No Do you have trouble paying your heating and electricity bill?: No Do you have trouble taking care of your child, family member or friend?: No Do you have trouble with day-to-day activities such as bathing, preparing meals, shopping, managing finances, etc.?: No Are you currently unemployed and looking for a job?: No Are you interested in more education?: No Please select the resources that you would like help with: None Currently or been in a relationship where the following occur: No concerns reported THRIVE Score: 1 AUDIT C Alcohol Use Questionnaire (AUDIT-C) 1. How often do you have a drink containing alcohol?: Never 3. How often do you have six or more drinks on one occasion?: Never Total Score: 0 Score Reviewed/Action Taken: Yes STEPHANIE-7 AMB Questionnaire STEPHANIE-7 Date STEPHANIE - 7 assessed: 01/01/25 Feeling nervous, anxious, or on edge: 3 = Nearly every day Not being able to stop or control worryin = More than half the days Worrying too much about different things: 2 = More than half the days Trouble relaxin = Nearly every day Being so restless that it is hard to sit still: 3 = Nearly every day Becoming easily annoyed or irritable: 3 = Nearly every day Feeling afraid as if something awful might happen: 1 = Several days Total STEPHANIE-7 score (0-4 normal; 5-9 mild; 10-14 moderate; 15-21 severe): 17 Source: Developed by Drs. Cuco Richards, Itzel Ordaz, Eliud Ladd and colleagues, with an educational lino from [employer]. Physical exam (Primary Care) Vital Signs: Last Vital Signs Pulse 67 01/01/25 11:41 BP 118/76 01/01/25 11:41 Pulse Ox 98 01/01/25 11:41 Oxygen Delivery Method Room Air 01/01/25 11:41 BMI result Body Mass Index 37.0 Tobacco/Smoking Status: Tobacco use Status Tobacco use date assessed 01/01/25 01/01/25 11:43 Patient Tobacco Use Status Former Tobacco user 01/01/25 11:43 Tobacco use type Cigarette 01/01/25 11:43 e-Cigarette/Vaping Use Never Used 01/01/25 11:43 PHQ-9: PHQ-9 Score PHQ-9: Total score 18 01/01/25 11:54 Depression Screening Interpretation: Positive Depression Screening Follow-up: Existing condition and In treatment Thrive Assessment: Date of Thrive Assessment Date Thrive assessed 01/01/25 01/01/25 11:43 Currently or been in a relationship where the following occur: No concerns reported Const General: no acute distress Nutritional Appearance: obese Resp Effort & Inspection: normal respiratory effort Cardio Heart sounds: S1 normal heart sound present and S2 normal heart sound present GI Inspection: Yes obesity Palpation (GI): Soft to palpation, not firm, nontender, no guarding, not rigid a nd No hepatosplenomegaly present Auscultation: normal bowel sounds Rectal Exam - Female: deferred Coding Level of Care Code Est Pt Level 4 (89652) Diagnoses Slow transit constipation K59.01 Constipation type: slow transit constipation Calculus of kidney N20.0 Bilateral primary osteoarthritis of hip M16.0 Additional Codes PHQ-9 - 33030 - PHQ-9 Billing: Yes ([id number]) Time Spent (min) 20 Assessment & Plan Assessment & Plan (1) Constipation: Code(s): K59.00 - Constipation, unspecified Category: Medical Qualifiers: Constipation type: slow transit constipation Qualified Code(s): K59.01 - Slow transit constipation Plan: Continue with Linzess as prescribed. F/U with GI (2) Calculus of kidney: Code(s): N20.0 - Calculus of kidney Category: Medical Plan: Resolved. (3) Bilateral primary osteoarthritis of hip: Code(s): M16.0 - Bilateral primary osteoarthritis of hip Category: Medical Plan: Managed for Orthopedics.
--- OUTSIDE RECORDS SUMMARY | 2025-01-01 11:53 | XMS_ITS | Continuity of Care Document ---
Author Organization [place] - [facility], [facility] [place] 2nd floor Address [address] [place] [address] Care Team Providers Care Geographic Analyst Name Role Phone CATINA ROY Primary Care Provider Assessment No assessment recorded. Plan of Treatment Reminders Order Date Submit Date Provider Last Modified By Organization Details Last Modified Time Details Appointments NEW PATIENT 20 2024 10:20A M Jayson Johnson MD Not available Not available Not available NEW PATIENT 15 2024 10:30A M Cuco La MD Not available Not available Not available Lab ESR (erythro cyte sediment ation rate), blood 2024 025 [facility], [address], [place], [address], 12/29/2024 17:22:08 C reactive protein, QN, serum or plasma 2024 025 [facility] (Centralized Electronic Ordering - All Locations), Patient Can Go To The Location Of Their Choice, 12/29/2024 17:22:09 CBC 2024 025 [facility] (Centralized Electronic Ordering - All Locations), Patient Can Go To The Location Of Their Choice, 12/31/2024 16:06:16 rf (rheumat oid factor) + anti-ccp abs, serum 2024 025 [facility]EN [facility] (Centralized Electronic Ordering - All Locations), Patient Can Go To The Location Of Their Choice, 12/31/2024 16:06:17 MO (antinuc lear antibodi es) screen, serum 2024 [place] [facility] (Centralized Electronic Ordering - All Locations), Patient Can Go To The Location Of Their Choice, [id number] 12/31/2024 16:06:17 uric acid, serum or plasma 2024 [place] [facility] (Centralized Electronic Ordering - All Locations), Patient Can Go To The Location Of Their Choice, [id number] 12/31/2024 16:06:18 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 Surgeries None recorded . Imaging MRI, lumbar spine, w/o contrast - L4 radicula r pain 2024 [place] [facility], [address], [address], [place], [address], 12/30/2024 09:00:29 XR, hip + pelvis, bilatera l, 2 view - rm 202 2V denisse hip pain R 2022 AB, L 2023 AB 2024 [email or web address], [address] [facility], [address], [place], [address], 12/28/2024 15:23:54 Medication Orders None recorded . Patient TargetsNo targets recorded. Patient InstructionsNo instructions recorded. 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 labs pending at [facility] Referring Physician: Wei Garcia, Orthopedic Surgery, Encounter Date: 12/28/2024 Results Created Date Observation Date Name Description Value Unit Range Abnormal Flag Note LastModifiedBy Organization Detail LastModifiedTime 12/29/1912/28/2024 XR, hip + pelvi s, bilat eral, 2 view http:/ [email or web address] ?Encry pted=s hAaTro YD8dLq bEUv6g %2BXZw aYqtaq 0bqfl% 2Fg9IQ a4ajBk vP9nXo QUaueC m3YtLR FvZlgJ JJ8mAn HZtai3 [id number] AC0Kla XuNUaa uKiQtr MwF INTERFACE [facility] Office [address] [facility] [address], [place], [address], 12/28/2024 14:52:11 12/29/19 25 12/28/2024 XR, hip + pelvi s, bilat eral, 2 view http:/ [email or web address] ?Encry pted=s hAaTro YD8dLq bEUv6g %2BXZw aYqtaq 0bqfl% 2Fg9IQ a4ajBk vP9nXo QUaueC m3YtLR FvZlgJ JJ8mAn HZtai3 [id number] AC0Kla XuNUaa uKiQtr MwF INTERFACE [facility] [address] [facility] [address], [place], [address], 12/28/2024 14:52:13 12/31/19 25 12/29/2024 MRI, lumba r spine , w/o contr ast No observ ation record ed. HELEN [facility] [address] [facility] [address], [place], [address], 12/30/2024 09:00:29 Result Notes Documentation Provider Name and Address Organization Details Recorded Time Xr, Hip + Pelvis, Bilateral, 2 View : [email or web address] Encrypted=myGwJilRV7aJlqJ Uv6g%7VKFuvMuifs1byku%2Fg 5JPw7ukYmdP0yEvBNcpdUl1Tw [id number] 5QB1YguHuPZgxfZpCdtAqF Not Available [facility] 12/28/2024 14:52: 12 Xr, Hip + Pelvis, Bilateral, 2 View : [email or web address] 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 8526876327094 00 Active 2023 Rommel Davis PA-C [address], [place], [address] , [facility] 4 10:22:37 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 2684161823426 105 Active 2023 Jayson Johnson MD [address], [place], [address] , [facility] 4 15:38:55 Osteoarthr itis of right knee joint 7953385364626 00 Active 2023 Jayson Johnson MD [address], [place], [address] , [facility] 4 15:39:09 Pain of right shoulder joint 3501108618607 9100 Active 2023 Poly Zamudio PA-C [address], [place], [address] , [facility] 4 20:13:36 Lumbar spondylosi s 300631518 Active 2023 Roshan Park MD [address], [place], [address] , [facility] 4 10:26:36 Adhesive capsulitis of right shoulder 2058667452496 09 Active 2023 Poly Zamudio PA-C [address], [place], [address] , [facility] 4 21:35:33 Cervical radiculopa thy 82553674 Active 2023 Poly Zamudio PA-C [address], [place], [address] , [facility] 4 15:06:51 History of left hip replacemen t 3410806938670 107 Active 2023 Arlene Fernando [facility], [facility] 4 14:19:53 Talipes planus 12862066 Active 2024 ORAL ALVAREZ [facility] 5 10:47:41 Lumbar radiculopa thy 722139135 Active 2024 DEANN VIERA [facility], [facility] 5 09:49:03 Pain in left lower limb 900012464 Active 2024 LETI PLUNKETT PA-C [address], [place], [address] , [facility] 5 10:01:03 Problem Notes None recorded. Procedures Surgical History Date Name Laterality Status Provider Name and Address Organization Details Recorded Time 10/24/19 25 33199 Therapeutic Exercise (1:1) completed Delmi Macias, PT [address], [place], [address], [facility] 10/23/2024 14:45:35 12/20/19 24 Euflexxa Knee Injection completed Ruben Macias PA-C [address], [place], [address], [facility] 12/20/2023 15:57:35 12/13/19 24 Euflexxa Knee Injection completed Ruben Macias PA-C [address], [place], [address], [facility] 12/13/2023 15:38:42 12/12/19 95983 Therapeutic Exercise (1:1) completed Poly Markham PTA [address], [place], [address], [facility] 12/11/2023 12:42:38 12/12/19 60742: Manual therapy completed Poly Markham PTA [address], [place], [address], [facility] 12/11/2023 12:42:38 12/10/19 01348 Therapeutic Exercise (1:1) completed Poly Markham PTA [address], [place], [address], [facility] 12/10/2023 12:56:11 12/10/19 90240: Manual therapy completed Poly Markham PTA [address], [place], [address], [facility] 12/10/2023 12:56:14 12/06/19 Euflexxa Knee Injection completed Jayson Johnson MD [address], [place], [address], [facility] 2023 15:39:21 12/06/19 13869 Therapeutic Exercise (1:1) completed José Miguel Herrmann DPT [address], [place], [address], [facility] 2023 10:58:46 12/06/19 24 91251: Manual therapy completed José Miguel Herrmann DPT [address], [place], [address], [facility] 2023 10:53:32 12/04/19 08407 Therapeutic Exercise (1:1) cancelled José Miguel Herrmann DPT [address], [place], [address], [facility] 12/03/2023 21:44:24 12/04/19 91708: Manual therapy cancelled José Miguel Herrmann DPT [address], [place], [address], [facility] 12/03/2023 21:44:24 11/25/19 68965 Therapeutic Exercise (1:1) completed Poly Markham PTA [address], [place], [address], [facility] 11/24/2023 12:41:59 11/25/19 81521: Manual therapy completed Poly Markham PTA [address], [place], [address], [facility] 11/24/2023 12:41:59 11/22/19 42360 Therapeutic Exercise (1:1) cancelled Poly Markham PTA [address], [place], [address], [facility] 11/21/2023 17:14:19 11/22/19 63282: Manual therapy cancelled Poly Markham PTA [address], [place], [address], [facility] 11/21/2023 17:14:19 11/20/19 49108 Therapeutic Exercise (1:1) cancelled Poly Markham PTA [address], [place], [address], [facility] 11/19/2023 16:18:20 11/20/19 86239: Manual therapy cancelled Poly Markham PTA [address], [place], [address], [facility] 11/19/2023 16:18:20 11/15/19 44498 Therapeutic Exercise (1:1) completed Poly Markham PTA [address], [place], [address], [facility] 11/15/2023 09:22:20 11/15/19 36998: Manual therapy completed Poly Markham PTA [address], [place], [address], [facility] 11/14/2023 14:06:05 11/13/19 24061 Therapeutic Exercise (1:1) completed Poly Markham PTA [address], [place], [address], [facility] 11/12/2023 14:07:02 11/13/19 12505: Manual therapy completed Poly Markham PTA [address], [place], [address], [facility] 11/12/2023 14:07:02 11/08/19 36250 Therapeutic Exercise (1:1) completed Poly Markham PTA [address], [place], [address], [facility] 11/08/2023 06:37:52 11/08/19 30527: Manual therapy completed Poly Markham PTA [address], [place], [address], [facility] 11/08/2023 06:37:52 11/04/19 73977 Therapeutic Exercise (1:1) completed Poly Markham PTA [address], [place], [address], [facility] 11/04/2023 12:46:49 11/04/19 38480: Manual therapy completed Poly Markham PTA [address], [place], [address], [facility] 11/04/2023 12:46:52 11/01/19 15746 Therapeutic Exercise (1:1) completed José Miguel Herrmann DPT [address], [place], [address], [facility] 11/01/2023 14:27:09 11/01/19 51221: Low complexity PT Eval completed José Miguel Herrmann DPT [address], [place], [address], [facility] 11/01/2023 14:27:13 Imaging Results None recorded. Procedure Notes None recorded. Medical Equipment None Reported. Allergies Allergen ID Allergen Name Allergen Category Reaction Reaction Severity Criticality Documentation Date Start Date Code Code System Note Provider Name and Address Organization Details Recorded Time 231356 Topamax medicatio n Not available Not available Not available 08/19/20232021 59430 3 RxNorm Not Available [facility] 4 15:27:05 362850 lactose Not available Not available Not available Not available 08/19/20232021 6211 RxNorm Not Available [facility] 4 15:27:05 440198 amoxicill in trihydrat e medicatio n Not available Not available Not available 08/19/20232021 49304 8 RxNorm Not Available [facility] 4 15:27:05 527909 latex environme nt,medica tion Not available Not available Not available 08/19/20232021 93369 91 RxNorm Not Available [facility] 4 15:27:05 111985 Provera medicatio n Not available Not available Not available 07/20/202474982 8 RxNorm ORAL stringer [facility] 5 07:25:14 Medications Name Sig Start Date Stop Date Status Note LastModified by Organization Details LastModified Time celecoxib 200 mg capsule TAKE 1 CAPSULE EVERY DAY BY ORAL ROUTE DIRECTED FOR 33 DAYS. DONT TAKE WITH IBUPROFEN active Not Available Not Available No t Available cyclobenzap rine 10 mg tablet TAKE 1 TABLET NEEDED BY ORAL ROUTE FOR 14 DAYS. active Not Available Not Available No t Available amoxicillin 500 mg capsule TAKE 4 CAPSULES BY MOUTH 1 HOUR PRIOR TO PROCEDURE active Not Available Not Available No t Available terconazole 0.4 % vaginal cream INSERT 1 APPLICATO RFUL VAGINALLY AT BEDTIME FOR 7 DAYS active Not Available Not Available No t Available prednisone 10 mg tablet active Not Available Not Available Not Available clindamycin HCl 300 mg capsule TAKE 2 CAPSULES ONE HALF HOUR PRIOR TO DENTAL PROCEDURE . active Not Available Not Available No t Available albuterol sulfate 2.5 mg/3 mL (0.083 %) solution for nebulizatio n INHALE 2.5 MG (3 ML) EVERY 6 HOURS NEEDED FOR SHORTNESS OF BREATH OR WHEEZING active Not Available Not Available No t Available azithromyci n 250 mg tablet TAKE 2 TABLETS BY MOUTH TODAY, THEN TAKE 1 TABLET DAILY FOR 4 DAYS DIRECTED 09/21 completed Not Available Not Available Not Available aspirin 325 mg tablet TAKE 1 TABLET BY MOUTH TWICE A DAY DIRECTED active Not Available Not Available No t Available ibuprofen 800 mg tablet 800 MG ORALLY EVERY 8 HOURS NEEDED FOR PAIN/HEAD ACHES FOR 30 DAYS TAKE WITH FOOD active Not Available Not Available No t Available fluconazole 150 mg tablet TAKE 1 TABLET BY MOUTH EVERY 72 HOURS 01/23 completed Not Available Not Available Not Available benzonatate 200 mg capsule TAKE 1 CAPSULE BY MOUTH THREE TIMES A DAY NEEDED FOR COUGH 01/23 completed Not Available Not Available Not Available sulfamethox azole 400 mg-trimetho prim 80 mg tablet TAKE 1 TABLET BY MOUTH DAILY FOR 5 DAYS 01/23 completed Not Available Not Available Not Available meloxicam 15 mg tablet TAKE 1 TABLET EVERY DAY BY ORAL ROUTE AFTER MEAL(S) FOR 30 DAYS. active Not Available Not Available No t Available naltrexone 50 mg tablet TAKE 1 TABLET BY MOUTH EVERY DAY IN THE MORNING active Not Available Not Available No t Available phenazopyri dine 200 mg tablet TAKE 1 TABLET BY MOUTH THREE TIMES A DAY FOR 2 DAYS (6 DOSES) 01/23 completed Not Available Not Available Not Available metronidazo le 0.75 % (37.5 mg/5 gram) vaginal gel INSERT 1 APPLICATO RFUL VAGINALLY DAILY AT BEDTIME,X 5 DAYS active Not Available Not Available No t Available ondansetron HCl 4 mg tablet TAKE 1 TABLET BY MOUTH THREE TIMES A DAY DIRECTED FOR 7 DAYS 01/23 completed Not Available Not Available Not Available prednisone 20 mg tablet TAKE 2 TABLETS BY MOUTH EVERY DAY active Not Available Not Available No t Available gabapentin 400 mg capsule TAKE 1 CAPSULE BY MOUTH THREE TIMES A DAY FOR 30 DAYS active Not Available Not Available No t Available sertraline 100 mg tablet TAKE 2 TABLETS BY MOUTH EVERY DAY DIRECTED active Not Available Not Available No t Available erythromyci n 500 mg tablet,adrián yed release 01/23 completed Not Available Not Available Not Available clindamycin HCl 150 mg capsule TAKE 1 CAPSULE BY MOUTH EVERY 6 HOURS UNTIL COMPLETED 01/23 completed Not Available Not Available Not Available sumatriptan 50 mg tablet TAKE 1 TABLET AT LEAST 2 HOURS BETWEEN DOSES NEEDED ORALLY ONCE A DAY 30 DAYS active Not Available Not Available No t Available lithium carbonate 150 mg capsule TAKE 1 CAPSULE BY MOUTH TWICE A DAY DIRECTED active Not Available Not Available No t Available metronidazo le 500 mg tablet TAKE 1 TABLET BY MOUTH EVERY 12 HOURS FOR 7 DAYS 09/21 completed Not Available Not Available Not Available doxycycline monohydrate 100 mg tablet 100 MG ORALLY 2 TIMES A DAY FOR 7 DAYS 01/23 completed Not Available Not Available Not Available tramadol 50 mg tablet TAKE 1 TABLET ORALLY EVERY 6 HOURS NEEDED FOR PAIN (SCALE SCORE 1-3) active Not Available Not Available No t Available acetaminoph en 500 mg tablet 2 TABLET BY MOUTH EVERY 6 HOURS,X5 DAYS MAY TAKE WITH IBUPROFEN 800MG 3 TIMES A DAY FOR POST OP PAIN 09/21 completed Not Available Not Available Not Available acetaminoph en ER 650 mg tablet,exte nded release TAKE 1 TABLET EVERY 8 HOURS BY ORAL ROUTE DIRECTED FOR 33 DAYS. 01/23 completed Not Available Not Available Not Available ketorolac 10 mg tablet TAKE 1 TAB 3 TIMES A DAY NEEDED FOR PAIN *DO NOT TAKE WITH OTHER NSAIDS, ONLY TYLENOL 09/21 completed Not Available Not Available Not Available metoclopram clif 5 mg tablet TAKE 5 MG ORALLY 4 TIMES A DAY BEFORE MEAL/BED 09/21 completed Not Available Not Available Not Available aspirin 325 mg tablet,adrián yed release TAKE 1 TABLET BY MOUTH TWICE A DAY DIRECTED 01/23 completed Not Available Not Available Not Available tamsulosin 0.4 mg capsule TAKE 1 CAPSULE BY MOUTH EVERY DAY active Not Available Not Available No t Available phenazopyri dine 100 mg tablet TAKE 1 TABLET BY MOUTH EVERY 8 HOURS FOR 14 DAYS 01/23 completed Not Available Not Available Not Available benzonatate 100 mg capsule TAKE 1 CAPSULE ORALLY 2 TIMES A DAY NEEDED FOR COUGH 01/23 completed Not Available Not Available Not Available cephalexin 500 mg capsule TAKE 1 CAPSULE BY MOUTH TWICE A DAY FOR 5 DAYS 09/21 completed Not Available Not Available Not Available pantoprazol e 40 mg tablet,adrián yed release Take 1 tablet every day by oral route as directed for 30 days. 09/21 completed Not Available Not Available Not Available ferrous sulfate 325 mg (65 mg iron) tablet TAKE 1 TABLET BY MOUTH EVERY DAY 09/21 completed Not Available Not Available Not Available prednisone 50 mg tablet TAKE 1 TABLET EVERY DAY FOR 5 DAYS active Not Available Not Available No t Available ibuprofen 400 mg tablet TAKE 1 TAB (400 MG) ORALLY EVERY 6 HOURS NEEDED FOR PAIN NOT WITH MELOXICAM active Not Available Not Available No t Available docusate sodium 100 mg capsule TAKE 1 CAPSULE BY MOUTH TWICE A DAY DIRECTED FOR 30 DAYS NEEDED FOR CONSTIPAT ION active Not Available Not Available No t Available pyridoxine (vitamin B6) 50 mg tablet TAKE 1 TABLET BY MOUTH EVERY DAY active Not Available Not Available No t Available buspirone 7.5 mg tablet TAKE 1 TAB TWICE A DAY DIRECTED 1 TABLET AM + ONE TABLET PM 20 MINUTES BEFORE MEALS active Not Available Not Available No t Available montelukast 10 mg tablet TAKE 1 TABLET BY MOUTH EVERYDAY AT BEDTIME 09/21 completed Not Available Not Available Not Available hydroxyzine HCl 25 mg tablet TAKE 1 TABLET BY MOUTH EVERY DAY FOR ANXIETY active Not Available Not Available No t Available fluticasone propionate 220 mcg/actuati on HFA aerosol inhaler INHALE 2 PUFFS BY MOUTH 2 TIMES A DAY active Not Available Not Available No t Available norethindro ne acetate 5 mg tablet TAKE 1 TABLET IN THE MORNING AND 2 TABLET BY MOUTH 12 HOURS LATER , IN THE EVENING. active Not Available Not Available No t Available pyridoxine (vitamin B6) 100 mg tablet TAKE 1 TABLET BY MOUTH EVERY DAY active Not Available Not Available No t Available lorazepam 1 mg tablet TAKE 1 TABLET BY MOUTH ONCE A DAY NEEDED. DO NOT USE WHEN DRIVING OR CONSUMING ALCOHOL active Not Available Not Available No t Available ibuprofen 600 mg tablet TAKE 1 TABLET BY MOUTH EVERY 6 HOURS NEEDED FOR PAIN 09/21 completed Not Available Not Available Not Available cefuroxime axetil 500 mg tablet TAKE 1 TABLET BY MOUTH TWICE A DAY FOR 7 DAYS 01/23 completed Not Available Not Available Not Available levofloxaci n 500 mg tablet TAKE 1 TABLET BY MOUTH EVERY DAY 09/21 completed Not Available Not Available Not Available methylpredn isolone 4 mg tablets in a dose pack take as directed 09/21 completed Not Available Not Available Not Available labetalol 100 mg tablet TAKE 1 TABLET BY MOUTH TWICE A DAY active Not Available Not Available No t Available ferrous sulfate 325 mg (65 mg iron) tablet,adrián yed release TAKE 1 TABLET BY MOUTH TWICE A WEEK. TAKE WITH VITAMIN C TO HELP ABSORPTIO N 09/21 completed Not Available Not Available Not Available hydrocortis one 2.5 % topical ointment APPLY TO AFFECTED AREA 2 TO 3 TIMES A DAY NEEDED FOR ITCHING active Not Available Not Available No t Available morphine 15 mg immediate release tablet TAKE 1 TABLET BY MOUTH EVERY 4 HOURS NEEDED FOR SEVERE PAIN 09/21 completed Not Available Not Available Not Available ondansetron 4 mg disintegrat ing tablet DISSOLVE 1 TABLET ON TONGUE EVERY 6 HOURS NEEDED FOR NAUSEA AND VOMITING active Not Available Not Available No t Available clotrimazol e 1 % topical cream 09/21 completed Not Available Not Available Not Available naproxen 500 mg tablet Take 1 tablet twice a day by oral route with meal(s) for 30 days. active Not Available Not Available No t Available Ventolin HFA 90 mcg/actuati on aerosol inhaler INHALE 2 PUFFS EVERY 4 TO 6 HOURS NEEDED FOR SHORTNESS OF BREATH OR FOR WHEEZE active Not Available Not Available No t Available oxycodone 5 mg tablet TAKE 1 TABLET BY MOUTH EVERY 8 HOURS NEEDED FOR PAIN FOR 3 DAYS 09/21 completed Not Available Not Available Not Available hydrocortis one 1 % topical cream with perineal applicator active Not Available Not Available N ot Available azithromyci n 500 mg tablet TAKE 1 TABLET BY MOUTH EVERY DAY DIRECTED 01/23 completed Not Available Not Available Not Available cyclobenzap rine 5 mg tablet TAKE 1 TABLET BY MOUTH THREE TIMES A DAY FOR 14 DAYS active Not Available Not Available No t Available bupropion HCl XL 300 mg 24 hr tablet, extended release TAKE 1 TABLET BY MOUTH EVERY DAY 09/21 completed Not Available Not Available Not Available bupropion HCl XL 150 mg 24 hr tablet, extended release TAKE 1 TABLET BY MOUTH EVERY DAY active Not Available Not Available No t Available nitrofurant oin monohydrate /macrocryst als 100 mg capsule 100 MG ORALLY EVERY 12 HOURS FOR 7 DAYS MUST ADMINISTE R WITH A MEAL/FOOD 01/23 completed Not Available Not Available Not Available Advair HFA 115 mcg-21 mcg/actuati on aerosol inhaler INHALE 2 PUFFS EVERY 12 HOURS active Not Available Not Available No t Available Symbicort 160 mcg-4.5 mcg/actuati on HFA aerosol inhaler INHALE 2 PUFFS EVERY 12 HOURS active Not Available Not Available No t Available oxycodone 10 mg tablet TAKE 1 TABLET BY MOUTH EVERY 6 HOURS 01/23 completed Not Available Not Available Not Available diclofenac 1 % topical gel APPLY 2 GRAMS TO THE AFFECTED AREA(S) BY TOPICAL ROUTE 4 TIMES PER DAY active Not Available Not Available No t Available cholecalcif moncho (vitamin D3) 50 mcg (2,000 unit) capsule TAKE 1 CAPSULE BY MOUTH EVERY DAY active Not Available Not Available No t Available oxycodone HCl-oxycodo ne-ASA Take 1 tablet every 4 hours as needed for moderate to severe painDO NOT DRIVE WHILE TAKING THIS MEDICATIO N 03/01 completed Statu s: 'Disc ontin ued'; Not Available Not Available Not Available dexlansopra zole 60 mg capsule,bip hase delayed release TAKE 1 CAPSULE BY MOUTH EVERY DAY active Not Available Not Available No t Available Linzess 145 mcg capsule TAKE 1 CAPSULE BY MOUTH EVERY DAY EVERY MORNING 01/23 completed Not Available Not Available Not Available Linzess 290 mcg capsule TAKE 1 CAPSULE BY MOUTH DAILY active Not Available Not Available No t Available Linzess Linzess 290MCG Capsule 01/23 completed Statu s: 'Curr ent'; Not Available Not Available Not Available Creon 36,000 unit-114,00 0 unit-180,00 0 unit capsule,del ayed release 1 CAP ORALLY 4 TIMES A DAY ADMINISTE R WITH MEALS AND/OR SNACKS active Not Available Not Available No t Available ProAir RespiClick 90 mcg/actuati on breath activated INHALE 2 PUFFS EVERY 6 HOURS NEEDED FOR WHEEZE OR FOR SHORTNESS OF BREATH active Not Available Not Available No t Available Breo Ellipta 200 mcg-25 mcg/dose powder for inhalation INHALE 1 PUFF DAILY active Not Available Not Available No t Available Dupixent 300 mg/2 mL subcutaneou s pen injector 09/21 completed Not Available Not Available Not Available Paxlovid 300 mg (150 mg x 2)-100 mg tablets in a dose pack TAKE 3 TABS BY MOUTH TWICE DAILY FOR 5 DAYS 09/21 completed Not Available Not Available Not Available Vitals Date Recorded Body height Provider Name an d Address Organization Details Last Updated DateTime 12/28/2024 154.94 cm ARLENE KRISTIE [facility] 12/28/2024 14:43:54 Social History Question Answer Notes LastModified by Organizat ion Details LastModified Time Tobacco Smoking Status Never Smoker MONICA ANDREW string[place] [facility] [place] [facility] 01/24/2024 09:09:52 Which Illicit Or Recreational Drugs Have You Used? Marijuana Information not available 01/24/2024 Which Of Your Hands Is Dominant? Right [email or web address] Information not available 12/24/2023 Have You Ever Been Counseled For Unhealthy Alcohol Use? No Information not available 01/24/2024 Sex: Unknown Functional Status Question Answer Note LastModified by Organizat ion Details LastModified Time How many times per week do you consume alcohol? 1-2 times per week Information not available 01/24/2024 Do you use any illicit or recreational drugs? Yes Information not available 01/24/2024 Do you or have you ever used any other forms of tobacco or nicotine? No Information not available 01/24/2024 What is your level of alcohol consumption? Occasional Information not available 01/24/2024 Mental Status None recorded. Family History Nothing Reported. Medical History Condition Response Breathing or lung disorders Y Anxiety/Depression Y Anemia Y Arthritis Y Headaches Y Fibromyalgia Y Hypertension Y Gynecological HistoryNo gynecological history recorded. Obstetrics History GPAL:G 0 P 0 0 0 0 Past Encounters Encounter ID Performer Location Encounter Start Date Encounter Closed Date Diagnosis/Indication Diagnosis SNOMED-CT Code Diagnosis ICD10 Code Diagnosis Note [id number] JAGDEEP [place] [address] [place] [address] 12/28/2024 14:25:20 12/28/2024 17:06:56 Pain of bilateral hip joints 5739192694 3325376 M25.551 M25.552 Pain in lumbar spine 267 248812 M54.50 Bilateral arthritis of knees 7680920669 623730 M17.0 Health Concerns Section Related Observation LastModified by Organization Detai ls LastModified Time None Recorded Concern Status LastModified by Organization Details LastModified Time None Recorded Payers Encounter Date Sequence Insurance Name Policy Number Policy Rasmussen Covered Member ID Rasmussen Member ID Guarantor Name 12/28/2024 1 [facility] NET [facility] (MEDICAID HMO) SAGE Sterling [id number] Gabriella Sterling Notes Date Note Type Note Provider Name and Address Organization Details Recorded Time 12/28/2024 text/html I am seeing the patient today under the supervision of Dr. Munoz who was available but who did not see the patient.History: This pleasant 34-year-old woman presents today for a new problem of right hip pain and lower extremity pain. She is status post bilateral total hip arthroplasties by Dr. Johnson. She has pain that radiates from her lumbar spine into the hips bilaterally and down to her knees. She has severe valgus alignment of both of her knees. She has difficulty walking distances. Reports pain about the knees mostly located laterally. She has difficulty with stairs and getting up from a seated position.PMH/PSH/MED S/ALL/FMH/SOC HX/ROS are reviewed in detail, updated and located in the patient's chart.General Exam: Vital signs are as noted belowMental status: Alert and lucid. 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 No spasticity or clonus noted.Extremities: [Calves are soft non tender, skin intact. ]Orthopedic Examination:Patient has a positive straight leg raise bilaterally with recreation of pain into the lumbar spine bilateral hips and buttock region.Right Hip: Mild tenderness over the greater trochanter. No erythema or warmth. Passive range of motion is full without referred pain.Left Hip: Mild tenderness over the greater trochanter. No erythema or warmth. Passive range of motion is full without referred pain.Right Knee: Severe valgus alignment. Roughly 20 degrees. Tenderness laterally. Mild effusion. No erythema warmth. Crepitance on the patella through range of motion.Left Knee: Severe valgus alignment. Roughly 20 degrees. Tenderness laterally. Mild effusion. No erythema warmth. Crepitance on the patella through range of motion.Antalgic gait pattern favoring the [ ] side.Peripheral, vascular, lymphatic examination, skin, neurological, coordination, reflexes, sensation are within normal limits.X-rays ordered, obtained and reivewed at [facility], 2 views bilateral hips show excellent implant interfaces and alignment. Bilateral knee x-rays reviewed today show end-stage lateral compartment arthritis with severe valgus alignment.Assessment : Low back pain with radiating leg pain bilaterally. Bilateral end-stage knee arthritis contributing to her antalgic gait and leg painPLAN: Lumbar radiculopathy. Follow-up with one of our spine PAs in regards to this. She is only 34 years old status post bilateral total hip replacements has end-stage bilateral knee arthritis does complain of other multiple joint complaints of her hands elbows and now at this point her lumbar spine. In light of this would recommend testing for inflammatory arthropathies and follow-up with the arthritis treatment center regarding this.In regards to her knees she has had cortisone injections in the past with minimal benefit. Would recommend follow-up with Dr. Johnson for consideration of bilateral total knee replacements.In regards to today's visit would recommend an MRI of the lumbar spine given her radiating leg pain and positive straight leg raises bilaterally to rule outDragon Medical practice speech recognition market master software was used to create portions of this document. An attempt at proofreading has been made to minimize errors. Please call for corrections. Wei Garcia PA-C [address], [place], [address], [facility] 12/28/2024 17:06:55 OBGyn Episode No OBEpisode recorded.
== END 2025-01-01 12:41 | disposition home or self-care (01) ==
LOC: HO.HMCH 11:30
PROVIDERS: PCP Internal Medicine; Visit Provider Nurse Practitioner Family
DX: K59.01 Slow transit constipation (principal); N20.0 Calculus of kidney; M16.0 Bilateral primary osteoarthritis of hip

== ENCOUNTER → 2025-01-01 11:30 | Outpatient (BNVA) | payer OTHER, SELFPAY | PROVIDERS: PCP Internal Medicine; Visit Provider Nurse Practitioner Family | DX: K59.01 Slow transit constipation (principal); M16.0 Bilateral primary osteoarthritis of hip; J45.909 Unspecified asthma, uncomplicated; I10 Essential (primary) hypertension; Z87.442 Personal history of urinary calculi; Z13.31 Encounter for screening for depression; Z13.39 Encounter for screening examination for other mental health and behavioral disorders | CPT/HCPCS: 96127; 99212 ==

== ENCOUNTER 2025-02-24 09:08 | Outpatient (AMB) | payer OTHER, SELFPAY ==
[2025-02-24 09:13] VITALS: BP 138/76; PULSE 60; O2SAT 99; BMI 37.5
--- NOTE | 2025-02-24 09:13 | A.OFFVIS_ITS ---
Vital Signs 02/24/25 09:13 Height 5 ft 1 in Weight 198 lb 8 oz BMI 37.5 BP 138/76 Blood Pressure Location Rt brachial Position Sitting Pulse 60 Pulse Source Pulse Oximeter Pulse Oximetry (%) 99 Oxygen Delivery Method Room Air Intake Visit Reasons: Asthma Allergies amoxicillin (AMOXICILLIN) Allergy (Intermediate, Verified 02/24/25 09:19) NAUSEA & VOMITING, stomach pain, vomiting, stomach upset topiramate (From TOPAMAX) Allergy (Intermediate, Verified 02/24/25 09:19) TREMORS, nausea and vomiting latex (LATEX) Allergy (Mild, Verified 02/24/25 09:19) RASH medroxyprogesterone (From PROVERA) Allergy (Mild, Verified 02/24/25 09:19) RASH lactose Allergy (Verified 02/24/25 09:19) bloating , diarrhea HPI HPI Asthma: Details: Gabriella is a pleasant 34 year-old female, never tobacco smoker, with underlying asthma COPD overlap syndrome, JOSE under the care of hematology through [facility], rheumatoid arthritis and fibromyalgia, under the care of rheumatology. She reports asthma has been relatively managed on Symbicort and Spiriva, infrequently using albuterol MDI/neb up until two days ago. Likely an allergic component however patient has not been using antihistamines/nasal sprays. She was on Singulair however developed headaches with use and trialed Dupixent but developed abdominal pain so has since discontinued. She reports intermittent wheezing and chest tightness as well as a cough possibly from post nasal drip. She denies chest congestion, fever or chills. She denies any visits to urgent care or hospitalizations related to respiratory distress since the last visit. Of note, she recently had labs performed by [facility] hematology, does note require iron infusions at this time and will have labs in three months to reassess. [facility] Medical History (Updated 02/02/25 @ 12:21 by BUD Brewer) Cholelithiasis with chronic cholecystitis Biliary dyskinesia Vitamin D deficiency Eczema Crushing injury of third toe of right foot Bilateral primary osteoarthritis of hip Obesity (BMI 30-39.9) Anxiety Benign essential hypertension Gallstones Thoracic back pain Depression Tension headache Myofascial pain Sacroiliac joint pain Post depression BMI 39.0-39.9,adult Trigger finger of left thumb Trigger finger of right thumb Insomnia Morbid obesity with BMI of 40.0-44.9, adult Smoker Carpal tunnel syndrome, bilateral Personal history of gestational diabetes Supervision of other high risk , antepartum Supervision of other normal PCOS (polycystic ovarian syndrome) control counseling Migraines Vulvar cyst Anxiety Hyperlipemia Fibromyalgia Rheumatoid arthritis Surgical History S/P laparoscopic cholecystectomy (03/06/23) H/O tubal ligation History of hip replacement, total History of esophagogastroduodenoscopy (EGD) History of removal of cyst History of tonsillectomy and adenoidectomy Family History Father Medical history unknown Mother Diabetes Hypertension Maternal Aunt Breast cancer Ovarian cancer Mental health disorder Maternal Grandmother Diabetes Hypertension Social History Household Members: Significant Other and Children Housing: House Alcohol intake: current Alcohol intake frequency: holidays/special occasions only Patient Tobacco Use Status: Former Tobacco user Tobacco use type: Cigarette e-Cigarette/Vaping Use: Never Used Second Hand Smoke Exposure: No Substance Use Type: Marijuana service: No Current occupational status: disabled Sexual orientation: Straight/Heterosexual Gender identity: Female Cognitive needs: No Hearing needs: No Vision needs: Yes (Glasses) Female Reproductive History Menstrual Age of Menarche: 8 Review of Systems Const Denies excessive sweating and Denies night sweats Eyes Denies dry eyes and Reports itchy eyes ENT Reports Normal hearing present, Reports nasal congestion, Reports nasal discharge, Reports post nasal drip and Denies sore throat Card Denies chest pain, Denies chest pain at rest, Denies chest pain with activity, Denies claudication, Denies leg edema, Denies orthopnea and Denies paroxysmal nocturnal dyspnea Resp Denies change in phlegm color, Denies chest congestion, Reports cough, Denies hemoptysis, Denies excessive phlegm production, Denies pain on inspiration, Denies pain with cough and Denies stridor Musc Denies myalgias Neuro Reports Normal hearing present Endo Denies excessive sweating Teddy/Lymph Denies lymphadenopathy Aller/Immun Reports itchy eyes and Denies seasonal rhinorrhea Physical Exam Vital Signs: Last Vital Signs Pulse 60 02/24/25 09:13 BP 138/76 02/24/25 09:13 Pulse Ox 99 02/24/25 09:13 Oxygen Delivery Method Room Air 02/24/25 09:13 BMI result Body Mass Index 37.5 Const General: cooperative, healthy appearing, comfortable, no acute distress, well developed and alert Nutritional Appearance: obese Orientation/consciousness: patient oriented x3 Limitations: no limitations HEENT Head: Yes normal to inspection, Yes normocephalic and Yes atraumatic Ears: hearing grossly normal bilaterally and external ears normal Eyes General: appearance normal, both eyes and all related structures Eyelids: Yes eyelids normal Sclerae: sclerae normal EOM: EOMs intact bilaterally Neck Neck: Yes normal visual inspection and Yes no lymphadenopathy Lymphatic: no lymphadenopathy noted Chest Chest palpation & inspection: normal inspection of the chest Resp Effort & Inspection: normal respiratory effort, able to speak in complete sentences, no audible wheezes, no cough, no stridor, not tachypneic, no tripod positioning and no use of accessory muscles Auscultation: clear to auscultation bilaterally Cardio Jugular venous distension: no JVD Rate: regular rate Rhythm: regular rhythm Skin Other: warm, dry General skin exam: no rashes or lesions noted Neuro General: patient oriented x3 Cranial nerves: Yes Normal hearing present Cognition (Neuro): normal cognition Gait exam (Neuro): Normal gait present Extrem General: Yes normal to inspection, Yes capillary refill normal, Yes no clubbing, cyanosis or edema and Yes no pedal edema Psych Appearance: grossly normal and well kempt Speech and movement: Normal speech and movement present and Clear speech present Affect: normal affect Attitude: cooperative Thought process: Normal thought process present Thought content: Normal thought content present Insight: Good insight present (Psych) Judgement: Good judgement present (Psych) Assessment & Plan Assessment & Plan (1) Asthma-COPD overlap syndrome: Code(s): J44.89 - Other specified chronic obstructive pulmonary disease Category: Medical Plan Symptoms at this time likely related to allergies and again encouraged patient to use Flonase vs an antihistamine. We discussed importance of asthma management with Symbicort, Spiriva, and additional use of albuterol MDI/neb PRN. She is aware to call if symptoms do not improve or worsen. We had previously trialed Dupixent however patient could not tolerate and not interested in pursuing an alternative at this time. All questions answered and patient is in agreement of plan. Will follow up in 3 months or sooner if needed. Medications: New albuterol sulfate 90 mcg/actuation (Ventolin HFA) 2 puffs inhalation Q6H PRN 1 ea 3RF shortness of breath or wheezing cetirizine (Zyrtec) 10 mg PO DAILY PRN 30 tabs 3RF allergy symptoms Discontinued fluticasone propionate 220 mcg/actuation Discontinued Reason: Patient Completed Course 2 puffs inhalation BID 12 grams 3RF Coding Level of Care Code Est Pt Level 4 (46317) Diagnoses Asthma-COPD overlap syndrome J44.89
--- OUTSIDE RECORDS SUMMARY | 2025-02-24 10:49 | XMS_ITS | Clinical Summary ---
Author Organization [facility] Address [address] [place] [address] Phone Care Team Providers Care Technical Publications Writer Name Role Phone Jarrod Sherman MD Primary Care Provider [phone] Social History Tobacco Use Types Packs/Day Years Used Date Smoking Tobacco: Never Assessed Education Answer Date Recorded Are you interested in more education? Not on mao e 02/18/2025 Are you concerned about learning? Not on file 02/18/2025 No 02/18/2025 No 02/18/2025 Digital Access Answer Date Recorded No 02/18/2025 No 02/18/2025 Reliable internet access at home? Not on file 02/18/2025 Device with a working camera? Not on file Comments Unknown Sex and Gender Information Value Date Recorded Sex Assigned at Female 02/18/2025 9:19 AM EDT Legal Sex Female 9:13 AM EDT Gender Identity Female 02/18/2025 9:19 AM EDT Sexual Orientation Bisexual 02/18/2025 9: 20 AM EDT Plan of Treatment Upcoming Encounters Date Type Department Care Team (Late st Contact Info) Description 04/16/2025 2:00 PM EDT Office Visit [facility] Department of Orthopaedics [address] [place] [address] Juan Grier MD [address] [place] [address] [email or web address] Maintenance Due Date Last Done Comments Adult Td,Tdap Booster 1989 DEPRESSION SCREENING 2001 SMOKING Hx and SMOKELESS TOB ACCO SCREENING 2002 HEPATITIS C SCREENING 12/07/2007 HIV ONE-TIME SCREENING (18-6 5 YEARS) 12/07/2007 PAP SMEAR 2010 INFLUENZA VACCINE (#1) 2025 COVID-19 VACCINE (2023-2 5 season) 2025 HEPATITIS A VACCINES Aged Out No long er eligible based on patient's age to complete this topic HIB VACCINES Aged Out No longer eligi ble based on patient's age to complete this topic MENINGOCOCCAL VACCINES (ACWY) Aged Out No longer eligible based on patient's age to complete this topic MENINGOCOCCAL VACCINES (B) Aged Out N o longer eligible based on patient's age to complete this topic PNEUMOCOCCAL VACCINES (0-49 years) Aged Out No longer eligible based on patient's age to complete this topic Medical Devices Not on file Insurance [facility] [place] [address] [place] [address] [place] [address] [address] [facility] ACO Care Teams Technical Publications Writer Relationship Specialty Start Date End Date Jarrod Sherman MD [address] [place] [id number] PCP - General Internal Medicine 02/18/25 Additional Source Comments The information contained in this document represents components of the legal health record. It is not the complete legal health record.[facility]
== END 2025-02-24 09:49 | disposition home or self-care (01) ==
LOC: HO.HPSW 09:09
PROVIDERS: PCP Internal Medicine; Visit Provider Nurse Practitioner Family
DX: J44.89 Other specified chronic obstructive pulmonary disease (principal)
CPT/HCPCS: 99214

== ENCOUNTER → 2025-02-24 09:08 | Outpatient (BNVA) | payer OTHER, SELFPAY | PROVIDERS: PCP Internal Medicine; Visit Provider Nurse Practitioner Family | DX: J44.89 Other specified chronic obstructive pulmonary disease (principal) | CPT/HCPCS: 99212 ==

== ENCOUNTER 2025-02-26 13:20 | Outpatient (AMB) | payer OTHER, SELFPAY ==
--- NOTE | 2025-02-26 13:22 | MHC.OFFVIS ---
Vital Signs 02/26/25 13:23 Height 5 ft 1 in Weight 198 lb 6.656 oz BMI 37.5 BP 168/90 H Blood Pressure Location Lt brachial Position Sitting Pulse 62 Intake Visit Reasons: FUV. R/S per office x1. Intake Note: CC: Pt reports that the [employer] works sometimes only. She also reports that she recently had an MRI done and was told that one of her lower back disc is out of place and that could be affecting her bowels. She also c/o acid reflux and vomiting every morning. 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 R/S per office x1.: Details: Assessment & Plan (1) Chronic idiopathic constipation: Code(s): K59.04 - Chronic idiopathic constipation Category: Medical (2) Delayed gastric emptying: Code(s): K30 - Functional dyspepsia Category: Medical (3) GERD (gastroesophageal reflux disease): Code(s): K21.9 - Gastro-esophageal reflux disease without esophagitis Category: Medical Qualifiers: Esophagitis presence: without esophagitis Qualified Code(s): K21.9 - Gastro-esophageal reflux disease without esophagitis (4) RUQ abdominal pain: Comment: on right same side as recent hip replacement and uksing crutch....? msk Code(s): R10.11 - Right upper quadrant pain Category: Medical (5) S/P laparoscopic cholecystectomy: Onset Date: 03/06/23 Comment: Haider Stanley MD Code(s): Z90.49 - Acquired absence of other specified parts of digestive tract Category: Surgical Plan She is doing pretty well since her gallbladder was taken out. She does have some bloating at times and I explained that that is to be expected. She continues on the Creon but if she develops diarrhea or severe bloating we might consider a bile binding agent. She still has a pain when she bends forward that feels like a ball just under the ribcage. She can not elicit this pain with eating or moving her bowels only with bending of the spine. She does have a thoracic spine x-ray showing degenerative disc disease in the thoracic spine and I explained to her using a spinal model how this could be a musculoskeletal or radicular pain. Fortunately she is seeing a specialist about her back in the near future and will see if anything comes of that. She continues on her Dexilant, Reglan 4 times a day, Linzess 290 (which she finds is moving her bowels quite well), and Creon. Return office visit in 6 months. Medications: Refilled dexlansoprazole (Dexilant) 60 mg PO DAILY 90 caps 2RF K21.9 - Gastro-esophageal reflux disease without esophagitis linaclotide (Linzess) 290 mcg PO QAM 30 caps 6RF 30 days K59.04 - Chronic idiopathic constipation ilqldx-[id number]-gakbkjp 36,000-114,000- 180,000 unit (Creon) administer with meals and/or snacks 1 cap PO QID 120 caps 6RF K80.20 - Calculus of gallbladder without cholecystitis without obstruction, K82.8 - Other specified diseases of gallbladder metoclopramide HCl (Reglan) 5 mg PO QIDACHS 120 tabs 6RF K30 - Functional dyspepsia TODAYS VISIT Her medication regimen consists of metoclopramide 5 mg 4 times a day, Creon 36,000, Linzess 290 and Dexilant. [facility] Medical History (Updated 02/26/25 @ 14:19 by BUD Brewer) Dyspnea COPD (chronic obstructive pulmonary disease) Asthma exacerbation Numbness and tingling in right hand Gastritis Depression RUQ abdominal pain Flank pain Cholelithiasis with chronic cholecystitis Biliary dyskinesia Vitamin D deficiency Eczema Crushing injury of third toe of right foot Bilateral primary osteoarthritis of hip Obesity (BMI 30-39.9) Anxiety Benign essential hypertension Gallstones Thoracic back pain Tension headache Myofascial pain Sacroiliac joint pain Post depression BMI 39.0-39.9,adult Trigger finger of left thumb Trigger finger of right thumb Insomnia Morbid obesity with BMI of 40.0-44.9, adult Smoker Carpal tunnel syndrome, bilateral Personal history of gestational diabetes Supervision of other high risk , antepartum Supervision of other normal PCOS (polycystic ovarian syndrome) control counseling Migraines Vulvar cyst Anxiety Hyperlipemia Fibromyalgia Rheumatoid arthritis Surgical History (Updated 02/26/25 @ 13:54 by BUD Brewer) S/P laparoscopic cholecystectomy (03/06/23) H/O tubal ligation History of hip replacement, total History of esophagogastroduodenoscopy (EGD) History of removal of cyst History of tonsillectomy and adenoidectomy Family History Father Medical history unknown Mother Diabetes Hypertension Maternal Aunt Breast cancer Ovarian cancer Mental health disorder Maternal Grandmother Diabetes Hypertension Social History Household Members: Significant Other and Children Housing: House Alcohol intake: current Alcohol intake frequency: holidays/special occasions only Patient Tobacco Use Status: Former Tobacco user Tobacco use type: Cigarette e-Cigarette/Vaping Use: Never Used Second Hand Smoke Exposure: No Substance Use Type: Marijuana service: No Current occupational status: disabled Sexual orientation: Straight/Heterosexual Gender identity: Female Cognitive needs: No Hearing needs: No Vision needs: Yes (Glasses) Female Reproductive History Menstrual Age of Menarche: 8 Review of Systems Const Denies fatigue, Denies fever(s), Denies night sweats, Reports poor appetite and Reports weight loss ENT Reports Normal hearing present, Denies dental pain, Denies dysphagia, Denies hearing loss, Denies mouth pain, Denies odynophagia, Denies throat swelling, Denies tongue swelling and Reports other (Dentition adequate) Card Reports no additional complaints Resp Reports no additional complaints GI Details: Reports abdominal pain, Denies melena, Reports bloating, Denies hematochezia, Reports constipation, Denies GI cramping, Denies dysphagia, Denies excessive flatus, Denies early satiety, Reports heartburn, Denies diarrhea, Reports nausea, Denies odynophagia, Reports vomiting and Denies hematemesis Skin/Breast Denies pruritus, Denies lesions, Denies rash and Denies jaundice Neuro Reports Normal hearing present and Denies Abnormal speech present Endo Denies fatigue Aller/Immun Denies throat swelling and Denies tongue swelling Physical Exam Vital Signs: Last Vital Signs Pulse 62 02/26/25 13:23 BP 168/90 H 02/26/25 13:23 BMI result Body Mass Index 37.5 Const General: cooperative, no acute distress, well developed and well groomed Nutritional Appearance: well nourished and obese Orientation/consciousness: oriented to person, oriented to place and oriented to time Limitations: No language barrier HEENT Head: Yes normocephalic and Yes atraumatic Eyes General: appearance normal, both eyes and all related structures Pupils: Equal, round and reactive pupils present Neck Neck: Yes normal visual inspection and Yes no lymphadenopathy Thyroid: Thyroid normal Resp Effort & Inspection: normal respiratory effort and able to speak in complete sentences Auscultation: clear to auscultation bilaterally Cardio Rate: regular rate Rhythm: regular rhythm Heart sounds: Normal, physiologic split S2 sound present Peripheral pulses: radial pulses present and posterior tibial pulses present GI Inspection: No distended, Yes Abdominal panniculus present and Yes obesity Palpation (GI): Soft to palpation, nontender, no guarding, not rigid and No hepatosplenomegaly present Percussion: Yes normal to percussion Auscultation: normal bowel sounds Rectal Exam - Female: deferred Skin General skin exam: no rashes or lesions noted, turgor normal, skin not dry, no jaundice, No spider nevi and no striae Rashes: no rashes Nails: normal Neuro General: oriented to person, oriented to place and oriented to time Cranial nerves: Yes Equal, round and reactive pupils present and Yes Normal hearing present Speech: No Abnormal speech present Extrem General: Yes normal to inspection, No clubbing, No cyanosis and No edema Psych Appearance: grossly normal and well kempt Mental Status: mental status grossly normal Speech and movement: Normal speech and movement present Affect: normal affect Attitude: cooperative Thought process: Normal thought process present and not confabulating Thought content: Normal thought content present Insight: Fair insight present (Psych) Judgement: Fair judgement present (Psych) Assessment & Plan Assessment & Plan (1) Chronic idiopathic constipation: Code(s): K59.04 - Chronic idiopathic constipation Category: Medical (2) Delayed gastric emptying: Code(s): K30 - Functional dyspepsia Category: Medical (3) GERD (gastroesophageal reflux disease): Code(s): K21.9 - Gastro-esophageal reflux disease without esophagitis Category: Medical Qualifiers: Esophagitis presence: without esophagitis Qualified Code(s): K21.9 - Gastro-esophageal reflux disease without esophagitis (4) Mesenteric panniculitis: Comment: 12/2024 CT, she does not do well with prednisone r/t HTN and anxiety Code(s): K65.4 - Sclerosing mesenteritis Category: Medical Plan Her medication regimen consists of metoclopramide 5 mg 4 times a day, Creon 36,000, Linzess 290 and Dexilant. Gabriella tells me that her constipation has suddenly become uncontrolled despite being at the highest dose of Linzess 290 micro g. She does not know why this has happened and can not name any medications either started her stopped, any preceding illness or any severe diet changes that may have contributed to this. - GERD history; recent noted exacerbation with nausea, vomiting, including bloody streaks noted in vomitus, coinciding with increased abdominal pressure. - Constipation despite high fluid intake; dietary fiber inconsistent; diet primarily meat and fries burdening digestive balance. - I review the CAT scan from her ER visit and it shows central mesenteric panniculitis with stranding and lymph nodes; it is possible that edema in the abdomen is contributing to the sudden increase in constipation. - Heidi also has been very stressed lately, as she is been fighting multiple health diagnoses, personal stressors such as loss of her car, and stress caring for family members. History of treatment difficulty for recent ovarian precancer.. We are going to add to bisacodyl at night to her Linzess 290 to see if we can get her bowels moving and continue all of her other GI medications. I also want start her on ibuprofen 600 mg twice a day to see if this impacts her bowels as this would be wave treating her for the panniculitis. She does not do well with prednisone secondary to anxiety and hypertension. I think we should get a thyroid study to see if this is part of an underlying metabolic contribution to her constipation. Return office visit in 3 weeks Orders: Orders TSH reflex Free T4 Today K30 - Functional dyspepsia Medications: New ibuprofen 600 mg PO BID 60 tabs 6RF pain K65.4 - Sclerosing mesenteritis bisacodyl (Dulcolax (bisacodyl)) 10 mg (2 x 5 mg) PO BEDTIME 60 tabs 6RF 30 days K59.04 - Chronic idiopathic constipation lmbvpu-srtdoejt-uoxgvyf 36,000-114,000- 180,000 unit (Creon) 2 caps PO BID 120 caps 6RF Refilled linaclotide (Linzess) 290 mcg PO DAILY 30 caps 6RF dexlansoprazole (Dexilant) 60 mg PO DAILY 90 caps 2RF 90 days Discontinued ondansetron Discontinued Reason: Doctor's Order 4 mg PO Q8H PRN 20 tabs 0RF nausea and vomiting Coding Level of Care Code Est Pt Level 4 (49450) Diagnoses Chronic idiopathic constipation K59.04 Delayed gastric emptying K30 Gastroesophageal reflux disease without esophagitis K21.9 Esophagitis presence: without esophagitis Mesenteric panniculitis K65.4 Time Spent (min) 39
[2025-02-26 13:23] VITALS: BP 168/90; PULSE 62; BMI 37.5
--- OUTSIDE RECORDS SUMMARY | 2025-02-26 15:56 | XMS_ITS | Clinical Summary ---
Author Organization [facility] Address [address] [place] [id number] Phone Care Team Providers Care Maintainability Engineer Name Role Phone Jarrod Sherman MD Primary Care Provider [phone] Social History Tobacco Use Types Packs/Day Years [...] Description 04/16/2025 2:00 PM EDT Office Visit [facility] Department of Orthopaedics [address] [place] [address] Juan Grier MD [address] [place] [address] [email or web address] Maintenance Due Date Last Done [...] topic Medical Devices Not on file Insurance [facility] [place] [address] [place] [address] [place] [address] [place] [address] [place] [address] [place] [address] ACO [facility] ACO Care Teams Maintainability Engineer Relationship Specialty Start Date End Date Jarrod Sherman MD [address] [place] [id number] PCP - General Internal Medicine 02/18/25 Additional Source Comments The information contained in this document represents components of the legal health record. It is not the complete legal health record.[facility]
== END 2025-02-26 14:20 | disposition home or self-care (01) ==
LOC: HO.HGI 13:21
PROVIDERS: PCP Internal Medicine; Visit Provider Nurse Practitioner
DX: K59.04 Chronic idiopathic constipation (principal); K30 Functional dyspepsia; K21.9 Gastro-esophageal reflux disease without esophagitis; K65.4 Sclerosing mesenteritis
CPT/HCPCS: 99214

== ENCOUNTER 2025-02-26 13:20 | Outpatient (REF) | payer OTHER, SELFPAY ==
[2025-02-26 14:50] LABS: MANUAL DIFF FLAG NO
[2025-02-26 15:24] LABS: Hematocrit 32.9 % (37.0-47.0); Hemoglobin 10.5 g/dl (12.0-16.0); Imm Gran Abs Auto 0.02 X10*3/uL (0.00-0.03); Imm Gran Pct Auto 0.3 % (0.0-0.4); Lymphocytes Absolute Auto 2.1 X10*3/uL (1.2-4.9); Mean Corpuscular HGB Conc 31.9 g/dl (31.0-35.0); Mean Corpuscular Hemoglobin 28.0 pg (27.0-33.0); Mean Corpuscular Volume 87.7 fL (80.0-98.0); NRBC Abs Auto 0.000 X10*3/uL (0.0-0.012); NRBC Pct Auto 0.0 /100WBC (0.0-0.2); Platelet Count 270 X10*3/uL (160-400); Red Blood Count 3.75 X10*6/uL (4.20-5.50); White Blood Count 7.4 X10*3/uL (4.8-10.8)
[2025-02-26 15:35] LABS: Appearance Urine Clear; Glucose Urine UA Negative (Negative); PH 7.0 (5.0-9.0); Specific Gravity - Urine <= 1.005 (1.005-1.025)
[2025-02-26 15:39] LABS: Hemoglobin A1C 93.5431 umol/L; Total Hemoglobin (HGBA1C) 2762.5223 umol/L
[2025-02-26 15:58] LABS: Alanine Aminotransferase 17 U/L (0-31); Albumin Level 4.3 g/dL (3.5-5.0); Alkaline Phosphatase 74 U/L (39-117); Anion Gap 9 (12-20); Aspartate Amino Transferase 21 U/L (5-31); Blood Urea Nitrogen 9 mg/dL (9-16); Calcium 8.8 mg/dL (8.4-10.2); Carbon Dioxide 27 mmol/L (22-29); Chloride 110 mmol/L (96-108); Cholesterol 145 mg/dL (<200); Estimated Glomerular Filt Rate > 60; HDL Cholesterol 43 mg/dL (>40); Potassium 3.7 mmol/L (3.3-5.1); Sodium 142 mmol/L (135-145); Total Protein 7.1 g/dL (6.5-8.0); Triglycerides 55 mg/dL (<150)
[2025-02-26 16:21] LABS: Folate 10.5 ng/mL (> or = 4.0); Vitamin B12 487 pg/mL (200-900)
== END 2025-02-26 13:21 | disposition home or self-care (01) ==
LOC: HO.LAB 13:20
PROVIDERS: PCP Internal Medicine; Visit Provider Nurse Practitioner
DX: Z00.00 Encounter for general adult medical examination without abnormal findings (principal); E78.00 Pure hypercholesterolemia, unspecified; R30.0 Dysuria; E53.8 Deficiency of other specified B group vitamins; D64.9 Anemia, unspecified; E55.9 Vitamin D deficiency, unspecified; E16.2 Hypoglycemia, unspecified; K30 Functional dyspepsia; K65.4 Sclerosing mesenteritis; K59.04 Chronic idiopathic constipation; K21.9 Gastro-esophageal reflux disease without esophagitis; R10.11 Right upper quadrant pain; Z90.49 Acquired absence of other specified parts of digestive tract; Z79.899 Other long term (current) drug therapy
CPT/HCPCS: 36415; 80053; 80061; 81003; 82306; 82607; 82746; 83036; 84443; 85025; 99212

== ENCOUNTER 2025-03-02 09:33 | Outpatient (AMB) | payer OTHER, SELFPAY ==
[2025-03-02 09:39] VITALS: BP 118/80; PULSE 65; O2SAT 99; BMI 37.1
--- NOTE | 2025-03-02 09:39 | MHC.PC.OV ---
Vital Signs 03/02/25 09:39 Height 5 ft 1 in Weight 196 lb 8 oz BMI 37.1 BP 118/80 Blood Pressure Location Lt brachial Position Sitting Pulse 65 Pulse Source Pulse Oximeter Pulse Oximetry (%) 99 Oxygen Delivery Method Room Air Intake Visit Reasons: pe Field Support Technician Required: No Accompanied by: Self / Same As Patient Allergies amoxicillin (AMOXICILLIN) Allergy (Intermediate, Verified 03/02/25 10:07) NAUSEA & VOMITING, stomach pain, vomiting, stomach upset topiramate (From TOPAMAX) Allergy (Intermediate, Verified 03/02/25 10:07) TREMORS, nausea and vomiting latex (LATEX) Allergy (Mild, Verified 03/02/25 10:07) RASH medroxyprogesterone (From PROVERA) Allergy (Mild, Verified 03/02/25 10:07) RASH lactose Allergy (Verified 03/02/25 10:07) bloating , diarrhea Medication List - Last Reconciled 03/02/25 by Jarrod Sherman MD albuterol sulfate 2.5 mg (3 mL) inhalation Q6H PRN albuterol sulfate 90 mcg/actuation (Ventolin HFA) 2 puffs inhalation Q6H PRN [BEDSIDE COMMODE As directed] bisacodyl (Dulcolax (bisacodyl)) 10 mg (2 x 5 mg) PO BEDTIME 30 days budesonide-formoterol 160-4.5 mcg/actuation (Symbicort) 2 puffs inhalation Q12H bupropion HCl 75 mg PO DAILY cetirizine (Zyrtec) 10 mg PO DAILY PRN dexlansoprazole (Dexilant) 60 mg PO DAILY 90 days diclofenac sodium 1% topical epinephrine (EpiPen) 0.3 mg IM Q10M PRN [[facility] As directed] hydrocortisone 1% 1 appl topical QID PRN hydrocortisone 2.5% 1 appl topical BID-TID PRN hydroxyzine HCl 25 mg PO DAILY ibuprofen (IBU) 800 mg PO Q8H PRN 30 days ibuprofen 600 mg PO BID labetalol 100 mg PO BID 90 days lancets (FreeStyle Lancets) 4 times/day linaclotide (Linzess) 290 mcg PO DAILY phsetr-xowdzpmd-lctraxq 36,000-114,000- 180,000 unit (Creon) 2 caps PO BID lorazepam 1 mg PO DAILY PRN meloxicam mg PO DAILY PRN metoclopramide HCl (Reglan) 5 mg PO QID nebulizers (Compact Compressor Nebulizer) As directed pyridoxine (vitamin B6) 100 mg PO DAILY 90 days sertraline 100 mg PO DAILY tiotropium bromide 2.5 mcg/actuation (Spiriva Respimat) 2 puffs inhalation DAILY [TUB SEAT with BACK As directed] Tobacco use date assessed: 03/02/25 Dental Screening Dental Screen Date: 03/02/25 Did you have a dental visit in the last 12 months?: No Did you have a dental problem in the last 6 months where you did not have access to dental care?: No Was dental information given to patient?: No HPI pe HPI Details Patient comes in today for her annual physical examination States that she currently feels okay She denies any headaches or dizziness Denies any chest pains, no SOB No nausea/vomiting, no abdominal pain No change in bowel habits noted She denies any acute urinary symptoms She goes to [facility] for her yearly gynecology exam and pap smear and states that she had an abnormal exam earlier this year wherein her pap smear came out with precancerous cells and states that she is currently scheduled for colposcopy and some other procedures early next month Adds that she has been referred to orthopedics in [place] by [facility] as they supposedly advised her that she will be needing right knee arthroplasty soon and they recommended she get this done in [place] She had her follow up labs done a few days ago - to discuss her results [facility] Medical History (Updated 03/02/25 @ 10:50 by Jarrod Sherman MD) Primary osteoarthritis of right knee control counseling COPD (chronic obstructive pulmonary disease) Gastritis Depression Cholelithiasis with chronic cholecystitis Biliary dyskinesia Vitamin D deficiency Eczema Crushing injury of third toe of right foot Bilateral primary osteoarthritis of hip Obesity (BMI 30-39.9) Anxiety Benign essential hypertension Gallstones Tension headache Post depression BMI 39.0-39.9,adult Trigger finger of left thumb Trigger finger of right thumb Insomnia Morbid obesity with BMI of 40.0-44.9, adult Smoker Carpal tunnel syndrome, bilateral Personal history of gestational diabetes PCOS (polycystic ovarian syndrome) Migraines Vulvar cyst Hyperlipemia Fibromyalgia Rheumatoid arthritis Surgical History S/P laparoscopic cholecystectomy (03/06/23) H/O tubal ligation History of hip replacement, total History of esophagogastroduodenoscopy (EGD) History of removal of cyst History of tonsillectomy and adenoidectomy Family History Father Medical history unknown Mother Diabetes Hypertension Maternal Aunt Breast cancer Ovarian cancer Mental health disorder Maternal Grandmother Diabetes Hypertension Social History Household Members: Significant Other and Children Housing: House Alcohol intake: current Alcohol intake frequency: holidays/special occasions only Patient Tobacco Use Status: Former Tobacco user Tobacco use type: Cigarette e-Cigarette/Vaping Use: Never Used Second Hand Smoke Exposure: No Substance Use Type: Marijuana service: No Current occupational status: disabled Sexual orientation: Straight/Heterosexual Gender identity: Female Cognitive needs: No Hearing needs: No Vision needs: Yes (Glasses) Female Reproductive History Menstrual Age of Menarche: 8 Questionnaire PHQ-9 Over the last 2 weeks, how often have you been bothered by any of the following problems? 1. Little interest or pleasure in doing things: more than half the days 2. Feeling down, depressed, or hopeless: more than half the days 3. Trouble falling or staying asleep, or sleeping too much: more than half the days 4. Feeling tired or having little energy: nearly every day 5. Poor appetite or overeating: more than half the days 6. Feeling bad about yourself - or that you are a failure or have let yourself or your family down: more than half the days 7. Trouble concentrating on things, such as reading the newspaper or watching television: nearly every day 8. Moving or speaking so slowly that other people could have noticed. Or the opposite - being so fidgety or restless that you have been moving around a lot more than usual: more than half the days 9. Thoughts that you would be better off or of hurting yourself in some way: not at all Total score: 18 Depression Screening Interpretation: Positive Depression Screening Follow-up: Existing condition and In treatment Depression Screening Done: Yes 16448 - PHQ-9 Billing: Yes Source: Developed by Drs. Cuco Richards, Eliud Cummings and colleagues, with an educational lino from [employer]. Thrive Questionnaire Date Thrive assessed: 03/02/25 I am a: Patient What is your living situation today?: I have a steady place to live Within the past 12 months, did the food you bought not last and you didn't have the money to get more?: Never true Within the past 12 months, did you worry whether your food would run out before you got money to buy more?: Sometimes True Do you have trouble paying for medicines?: No Do you have trouble getting transportation to medical appointments?: No Do you have trouble paying your heating and electricity bill?: No Do you have trouble taking care of your child, family member or friend?: No Do you have trouble with day-to-day activities such as bathing, preparing meals, shopping, managing finances, etc.?: No Are you currently unemployed and looking for a job?: No Are you interested in more education?: No Please select the resources that you would like help with: None Currently or been in a relationship where the following occur: No concerns reported THRIVE Score: 1 AUDIT C Alcohol Use Questionnaire (AUDIT-C) 1. How often do you have a drink containing alcohol?: Never 3. How often do you have six or more drinks on one occasion?: Never Total Score: 0 Score Reviewed/Action Taken: Yes STEPHANIE-7 AMB Questionnaire STEPHANIE-7 Date STEPHANIE - 7 assessed: 03/02/25 Feeling nervous, anxious, or on edge: 3 = Nearly every day Not being able to stop or control worryin = More than half the days Worrying too much about different things: 2 = More than half the days Trouble relaxin = Nearly every day Being so restless that it is hard to sit still: 3 = Nearly every day Becoming easily annoyed or irritable: 3 = Nearly every day Feeling afraid as if something awful might happen: 1 = Several days Total STEPHANIE-7 score (0-4 normal; 5-9 mild; 10-14 moderate; 15-21 severe): 17 Source: Developed by Drs. Cuco Richards, Eliud Cummings and colleagues, with an educational lino from [employer]. Review of Systems Const Denies chills, Reports fatigue, Denies fever(s), Denies headache(s) and Denies malaise Eyes Denies blurry vision, Denies change in vision, Denies irritation and Denies itchy eyes ENT Denies dysphagia, Denies dizziness, Denies otalgia, Denies headache(s), Denies nasal congestion, Denies neck pain, Denies odynophagia, Denies sinus pain and Denies sore throat Card Denies chest pain, Denies rapid heart rate, Denies irregular heart rhythm, Denies palpitations and Denies dyspnea Resp Denies chest congestion, Denies cough, Denies dyspnea and Denies wheezing GI Denies abdominal pain, Denies bloating, Denies constipation, Denies dysphagia, Denies heartburn, Denies diarrhea, Denies nausea, Denies odynophagia and Denies vomiting Denies hematuria, Denies urinary frequency, Denies dysuria, Denies urinary incontinence and Denies urinary urgency Musc Reports back pain (on and off over the lower back), Reports arthralgias (in the right knee; on and off in both hips), Denies joint swelling, Denies muscle weakness and Denies neck pain Skin/Breast Denies breast pain, Denies breast mass, Denies change in pigmentation, Denies lesions, Denies rash and Denies unusual bruising Neuro Denies dizziness, Denies headache(s) and Denies paresthesias Psych Denies anxiety and Denies depression Endo Reports fatigue and Denies palpitations Teddy/Lymph Denies easy bruising Aller/Immun Denies itchy eyes and Denies wheezing Physical exam (Primary Care) Vital Signs: Last Vital Signs Pulse 65 03/02/25 09:39 BP 118/80 03/02/25 09:39 Pulse Ox 99 03/02/25 09:39 Oxygen Delivery Method Room Air 03/02/25 09:39 BMI result Body Mass Index 37.1 Tobacco/Smoking Status: Tobacco use Status Tobacco use date assessed 03/02/25 03/02/25 09:46 Patient Tobacco Use Status Former Tobacco user 03/02/25 09:46 Tobacco use type Cigarette 03/02/25 09:46 e-Cigarette/Vaping Use Never Used 03/02/25 09:46 Depression Screening Interpretation: Positive Depression Screening Follow-up: Existing condition and In treatment Thrive Assessment: Date of Thrive Assessment Date Thrive assessed 03/02/25 03/02/25 09:46 Currently or been in a relationship where the following occur: No concerns reported Const General: no acute distress, alert and awake Orientation/consciousness: patient oriented x3 HENMT Head: Yes normocephalic and Yes atraumatic Ears: external ears normal, TM's normal bilaterally and EAC's normal General nose exam: No nasal discharge present Face and sinus: Yes normal facial exam and Yes sinuses nontender Teeth and gingiva: dentition normal Throat: Yes posterior oropharynx normal and Yes tonsils normal (no TP congestion) Eyes Eyelids: Yes eyelids normal Conjunctivae: conjunctivae normal Pupils: Equal, round and reactive pupils present EOM: EOMs intact bilaterally Neck Neck: Yes no lymphadenopathy and Yes supple Thyroid: Thyroid normal Resp Auscultation: clear to auscultation bilaterally, no rales and no wheezes Cardio Rate: regular rate Rhythm: regular rhythm Heart sounds: no murmurs GI Palpation (GI): Soft to palpation, nontender and No hepatosplenomegaly present Auscultation: normal bowel sounds General: Yes no CVA tenderness Back/Spine/Pelvis Back: no CVA tenderness Thoracic/Lumbar Spine: lumbar spinal tenderness (mild) Skin Lesions: no lesions Rashes: no rashes Neuro General: patient oriented x3, moves all extremities, no focal motor deficits and CN's II-XI intact bilaterally Cranial nerves: Yes Equal, round and reactive pupils present Cognition (Neuro): normal cognition Gait exam (Neuro): Normal gait present Extrem General: Yes no clubbing, cyanosis or edema Right lower extremity: knee Details: tenderness Location: of the pre-patellar area and of the infrapatellar area and crepitus; no swelling Results Reviewed Results Reviewed: Laboratory Tests 02/26/25 02/26/25 14:40 14:46 WBC 7.4 Hgb 10.5 L Hct 32.9 L Plt Count 270 Sodium 142 Potassium 3.7 Creatinine 0.62 Estimated GFR > 60 Fasting Glucose 79 Hemoglobin A1c % 5.2 Calcium 8.8 AST 21 ALT 17 Triglycerides 55 Cholesterol 145 LDL Cholesterol, Calc 91 HDL Cholesterol 43 Vitamin B12 487 25-OH Vitamin D Total 27.7 L TSH 2.57 Ur Specific [place] <= 1.005 Urine Protein Negative Urine Glucose (UA) Negative Urine Blood Negative Urine Nitrite Negative Ur Leukocyte Esterase Negative Coding Level of Care Code Est Pt Prev Care 18-39y(14856) Diagnoses Annual physical exam Z00.00 Benign essential hypertension I10 Asthma-COPD overlap syndrome J44.89 Elevated LFTs R79.89 Abnormal cervical Papanicolaou smear, unspecified abnormal pap finding R87.619 Abnormal Pap type: unspecified Bilateral hand pain M79.641; M79.642 Numbness and tingling in right hand R20.0; R20.2 Bilateral primary osteoarthritis of hip M16.0 Primary osteoarthritis of right knee M17.11 Gastroesophageal reflux disease without esophagitis K21.9 Esophagitis presence: without esophagitis Anemia, unspecified type D64.9 Anemia type: unspecified type Migraine without status migrainosus, not intractable, unspecified migraine type G43.909 Intractability: not intractable Migraine type: unspecified Status migrainosus presence: without status migrainosus Vitamin D deficiency E55.9 Fibromyalgia M79.7 Insomnia, unspecified type G47.00 Insomnia type: unspecified Anxiety F41.9 Episode of recurrent major depressive disorder, unspecified depression episode severity F33.9 Depression Type: major depressive disorder Major depression recurrence: recurrent Active/Remission status: currently active Major depression episode severity: unspecified Obesity (BMI 30-39.9) E66.9 Additional Codes PHQ-9 - 34506 - PHQ-9 Billing: Yes ([id number]) Assessment & Plan Assessment & Plan (1) Annual physical exam: Code(s): Z00.00 - Encounter for general adult medical examination without abnormal findings Category: Medical Plan: Results of her labs done a few days ago reviewed and discussed with patient She is up-to-date with her yearly gynecology exam and pap smear - patient goes to [facility] and states that she had an abnormal pap done earlier this year and she is currently scheduled for some colposcopic procedure next month to help address this (2) Benign essential hypertension: Code(s): I10 - Essential (primary) hypertension Category: Medical Plan: Reinforced low-sodium diet - goal is systolic BP of 120 mm or less Continue Labetalol 100 mg BID She also used to take Amlodipine 5 mg QD and Spironolactone 50 mg BID but apparently stopped taking these sometime in the past 2 to 3 years - patient herself does not remember exactly when or why she is no longer on these meds (3) Asthma-COPD overlap syndrome: Code(s): J44.89 - Other specified chronic obstructive pulmonary disease Category: Medical Plan: Appears controlled lately Continue Breztri Aerosphere 160-9-4.8 mcg 2 inhalations BID, Stiolto Respimat 2.5-2.5 mcg 2 inhalations QD and Albuterol HFA 1 to 2 inhalations Q 6 hours PRN She used to be on Symbicort but reports inadequate control of her symptoms on the Rx and she could not tolerate Breo and Incruse Ellipta (could not tolerate powdered formulations in general) Follow up with pulmonary as scheduled (4) Elevated LFTs: Code(s): R79.89 - Other specified abnormal findings of blood chemistry Category: Medical Plan: Her LFTs (especially her ALT) were previously elevated back in May 2023 but have returned back to normal since and have remained normal on her recent labs They were likely due to hepatosteatosis, as confirmed on her abdominal US done back in June 2023 Will continue to monitor her LFTs regularly (5) Abnormal Pap smear of cervix: Code(s): R87.619 - Unspecified abnormal cytological findings in specimens from cervix uteri Category: Medical Qualifiers: Abnormal Pap type: unspecified Qualified Code(s): R87.619 - Unspecified abnormal cytological findings in specimens from cervix uteri Plan: Patient states that she is scheduled for some colposcopic procedure with [facility] early next month for further management of this issue (6) Bilateral hand pain: Code(s): M79.641 - Pain in right hand; M79.642 - Pain in left hand Category: Medical Plan: Have advised patient again that her symptoms are suggestive of a median nerve neuropathy X-rays of both hands done back in May 2024 revealed (+) tiny osseous density adjacent to the left 5th MCP joint which could represent a fracture fragment. No evidence of fracture of the right hand. (+) hypoplastic proximal carpal bones bilaterally and there is widening of the scapholunate joints bilaterally which could represent old ligamentous injury Will also consider referring her for EMG and NCV of the right upper extremity for further evaluation if her symptoms get worse (7) Numbness and tingling in right hand: Code(s): R20.0 - Anesthesia of skin; R20.2 - Paresthesia of skin Category: Medical Plan: Have advised patient that her symptoms are suggestive of a median nerve neuropathy We will consider referring her for EMG and NCV of the right upper extremity for further evaluation if her symptoms continue to get worse (8) Bilateral primary osteoarthritis of hip: Code(s): M16.0 - Bilateral primary osteoarthritis of hip Category: Medical Plan: S/P right hip arthroplasty in July 2022 - states that her right hip has been doing well since her surgery She also underwent total left hip arthroplastly with [facility] last year on 10/24/2023 - states that her surgery and recovery went well and she now has hardly any significant issues with both hips Follow up with orthopedics as scheduled (9) Primary osteoarthritis of right knee: Code(s): M17.11 - Unilateral primary osteoarthritis, right knee Category: Medical Plan: Patient states that she is currently being referred by [facility] to orthopedics in [place] for consideration for a total right knee arthroplasty Have advised patient to have orthopedics both in [place] and [facility] send us a copy of her OV notes and consultation reports for documentation and informative purposes Follow up with orthopedics as scheduled (10) GERD (gastroesophageal reflux disease): Code(s): K21.9 - Gastro-esophageal reflux disease without esophagitis Category: Medical Qualifiers: Esophagitis presence: without esophagitis Qualified Code(s): K21.9 - Gastro-esophageal reflux disease without esophagitis Plan: Dietary restrictions reinforced Continue Dexlansoprazole 60 mg QD (11) Anemia: Code(s): D64.9 - Anemia, unspecified Category: Medical Qualifiers: Anemia type: unspecified type Qualified Code(s): D64.9 - Anemia, unspecified Plan: She is still anemic on her CBC done a few days ago, with H/H at 10.5/32.9 respectively Continue IV Iron infusions PRN Follow up with hematology as scheduled and will continue to monitor her CBC regularly (12) Migraines: Comment: reviewed med use, food triggers and what to avoid Code(s): G43.909 - Migraine, unspecified, not intractable, without status migrainosus Category: Medical Qualifiers: Intractability: not intractable Migraine type: unspecified Status migrainosus presence: without status migrainosus Qualified Code(s): G43.909 - Migraine, unspecified, not intractable, without status migrainosus Plan: Continue Acetaminophen 325 mg every 4 to 6 hours as needed for headaches Reinforced avoidance of migraine triggers Will need to consider prophylactic Tx again if her headaches persist or get worse (13) Vitamin D deficiency: Code(s): E55.9 - Vitamin D deficiency, unspecified Category: Medical Plan: Patient is advised that her Vitamin D level is still low on her recent labs Continue Vitamin D3 2000 units QD (14) Fibromyalgia: Code(s): M79.7 - Fibromyalgia Category: Medical Plan: Patient is encouraged again on regular exercise and physical activity to help manage her fibromyalgia symptoms Continue Gabapentin 400 mg TID (15) Insomnia: Code(s): G47.00 - Insomnia, unspecified Category: Medical Qualifiers: Insomnia type: unspecified Qualified Code(s): G47.00 - Insomnia, unspecified Plan: Sleep hygiene reinforced Continue OTC Unisom 25 mg Q HS PRN (16) Anxiety: Code(s): F41.9 - Anxiety disorder, unspecified Category: Medical Plan: She is on Bupropion and Sertraline; continue Hydroxyzine 25 mg PRN and Lorazepam 1 mg QD PRN (17) Depression: Code(s): F32.A - Depression, unspecified Category: Medical Qualifiers: Depression Type: major depressive disorder Major depression recurrence: recurrent Active/Remission status: currently active Major depression episode severity: unspecified Qualified Code(s): F33.9 - Major depressive disorder, recurrent, unspecified Plan: Continue Sertraline 100 mg QD and Bupropion 75 mg QD Follow up with psychiatry as scheduled (18) Obesity (BMI 30-39.9): Code(s): E66.9 - Obesity, unspecified Category: Medical Plan: Reinforced diet/exercise as tolerated/lose weight Plan Follow up in 4 months Will have patient again recheck her labs in 4 months and she is reminded to try to get these done JUST BEFORE she returns in 4 months' time Orders: Orders Comprehensive Met. Panel 4 Months I10 - Essential (primary) hypertension Complete Blood Count Auto Diff 4 Months D64.9 - Anemia, unspecified, I10 - Essential (primary) hypertension UA CC w/rflx Micro + Cult 4 Months R30.0 - Dysuria Vitamin D 25-OH Total 4 Months E55.9 - Vitamin D deficiency, unspecified
--- OUTSIDE RECORDS SUMMARY | 2025-03-02 12:09 | XMS_ITS | Clinical Summary ---
Author Organization [facility] Address [address] [place] [phone] Phone Care Team Providers Care Fish Agent Name Role Phone Jarrod Sherman MD Primary Care Provider [phone] Social History Tobacco Use Types Packs/Day Years [...] Description 04/16/2025 2:00 PM EDT Office Visit [facility] of [facility]opaedics [address] [place] [address] Juan Grier MD [address] [place] [address] [email or web address] U Health Maintenance Due Date Last Done [...] topic Medical Devices Not on file Insurance [facility] [place] [address] [place] [address] [place] [address] [place] [address] [place] [address] [place] [address] A[employer] [facility] [place] [address] Care Teams Fish Agent Relationship Specialty Start Date End Date Jarrod Sherman MD [address] [place] [id number] PCP - General Internal Medicine 02/18/25 Additional Source Comments The information contained in this document represents components of the legal health record. It is not the complete legal health record.[facility]
== END 2025-03-02 10:16 | disposition home or self-care (01) ==
LOC: HO.HMCH 09:34
PROVIDERS: PCP Internal Medicine; Visit Provider Internal Medicine
DX: Z00.00 Encounter for general adult medical examination without abnormal findings (principal); J44.89 Other specified chronic obstructive pulmonary disease; E66.9 Obesity, unspecified; Z68.37 Body mass index [BMI] 37.0-37.9, adult; R87.619 Unspecified abnormal cytological findings in specimens from cervix uteri; I10 Essential (primary) hypertension; R79.89 Other specified abnormal findings of blood chemistry; M79.641 Pain in right hand; M79.642 Pain in left hand; R20.0 Anesthesia of skin; R20.2 Paresthesia of skin; M16.0 Bilateral primary osteoarthritis of hip

== ENCOUNTER → 2025-03-02 09:33 | Outpatient (BNVA) | payer OTHER, SELFPAY | PROVIDERS: PCP Internal Medicine; Visit Provider Internal Medicine | DX: Z00.00 Encounter for general adult medical examination without abnormal findings (principal); I10 Essential (primary) hypertension; J44.89 Other specified chronic obstructive pulmonary disease; R79.89 Other specified abnormal findings of blood chemistry; R87.619 Unspecified abnormal cytological findings in specimens from cervix uteri; M79.641 Pain in right hand; M79.642 Pain in left hand; R20.0 Anesthesia of skin; R20.2 Paresthesia of skin; M16.0 Bilateral primary osteoarthritis of hip; M17.11 Unilateral primary osteoarthritis, right knee; K21.9 Gastro-esophageal reflux disease without esophagitis; D64.9 Anemia, unspecified; G43.909 Migraine, unspecified, not intractable, without status migrainosus; E55.9 Vitamin D deficiency, unspecified; M79.7 Fibromyalgia; G47.00 Insomnia, unspecified; F41.9 Anxiety disorder, unspecified; F33.9 Major depressive disorder, recurrent, unspecified; E66.9 Obesity, unspecified; R30.0 Dysuria; Z68.37 Body mass index [BMI] 37.0-37.9, adult | CPT/HCPCS: 96127; 99395 ==

== ENCOUNTER 2025-03-25 09:30 | Outpatient (AMB) | payer OTHER, SELFPAY ==
--- NOTE | 2025-03-25 09:33 | A.OFFVIS_ITS ---
Vital Signs 03/25/25 09:39 Height 5 ft 1 in Weight 196 lb BMI 37.0 BP 136/86 Blood Pressure Location Rt brachial Position Sitting Pulse 66 Pulse Source Pulse Oximeter Pulse Oximetry (%) 100 Oxygen Delivery Method Room Air Intake Visit Reasons: severe CIC, N/V GERD Intake Note: Est pt for mgmt of GERD + CIC CC: C.O. LUQ pain persistence, increasingly frequent BMs with moderate discoloration. Pt denies any evidence of hematochezia or melena at this time. Surface Room Shop Optician Required: No Accompanied by: Family/Other Allergies amoxicillin (AMOXICILLIN) Allergy (Intermediate, Verified 03/25/25 09:33) NAUSEA & VOMITING, stomach pain, vomiting, stomach upset topiramate (From TOPAMAX) Allergy (Intermediate, Verified 03/25/25 09:33) TREMORS, nausea and vomiting latex (LATEX) Allergy (Mild, Verified 03/25/25 09:33) RASH medroxyprogesterone (From PROVERA) Allergy (Mild, Verified 03/25/25 09:33) RASH lactose Allergy (Verified 03/25/25 09:33) bloating , diarrhea HPI HPI severe CIC, N/V GERD: Details: Assessment & Plan (1) Chronic idiopathic constipation: Code(s): K59.04 - Chronic idiopathic constipation Category: Medical (2) Delayed gastric emptying: Code(s): K30 - Functional dyspepsia Category: Medical (3) GERD (gastroesophageal reflux disease): Code(s): K21.9 - Gastro-esophageal reflux disease without esophagitis Category: Medical Qualifiers: Esophagitis presence: without esophagitis Qualified Code(s): K21.9 - Gastro-esophageal reflux disease without esophagitis (4) Mesenteric panniculitis: Comment: 12/2024 CT, she does not do well with prednisone r/t HTN and anxiety Code(s): K65.4 - Sclerosing mesenteritis Category: Medical Plan Her medication regimen consists of metoclopramide 5 mg 4 times a day, Creon 36,000, Linzess 290 and Dexilant. Gabriella tells me that her constipation has suddenly become uncontrolled despite being at the highest dose of Linzess 290 micro g. She does not know why this has happened and can not name any medications either started her stopped, any preceding illness or any severe diet changes that may have contributed to this. - GERD history; recent noted exacerbation with nausea, vomiting, including bloody streaks noted in vomitus, coinciding with increased abdominal pressure. - Constipation despite high fluid intake; dietary fiber inconsistent; diet primarily meat and fries burdening digestive balance. - I review the CAT scan from her ER visit and it shows central mesenteric panniculitis with stranding and lymph nodes; it is possible that edema in the abdomen is contributing to the sudden increase in constipation. - Heidi also has been very stressed lately, as she is been fighting multiple health diagnoses, personal stressors such as loss of her car, and stress caring for family members. History of treatment difficulty for recent ovarian precancer.. We are going to add to bisacodyl at night to her Linzess 290 to see if we can get her bowels moving and continue all of her other GI medications. I also want start her on ibuprofen 600 mg twice a day to see if this impacts her bowels as this would be wave treating her for the panniculitis. She does not do well with prednisone secondary to anxiety and hypertension. I think we should get a thyroid study to see if this is part of an underlying metabolic contribution to her constipation. Return office visit in 3 weeks Orders: Orders TSH reflex Free T4 Today K30 - Functional dyspepsia Medications: New ibuprofen 600 mg PO BID 60 tabs 6RF pain K65.4 - Sclerosing mesenteritis bisacodyl (Dulcolax (bisacodyl)) 10 mg (2 x 5 mg) PO BEDTIME 60 tabs 6RF 30 days K59.04 - Chronic idiopathic constipation [id number] 36,000-114,000- 180,000 unit (Creon) 2 caps PO BID 120 caps 6RF Refilled linaclotide (Linzess) 290 mcg PO DAILY 30 caps 6RF dexlansoprazole (Dexilant) 60 mg PO DAILY 90 caps 2RF 90 days Discontinued ondansetron Discontinued Reason: Doctor's Order 4 mg PO Q8H PRN 20 tabs 0RF nausea and vomiting LABS: Laboratory Tests 02/26/25 14:46 TSH 2.57 TODAY'S VISIT [facility] Medical History Primary osteoarthritis of right knee control counseling COPD (chronic obstructive pulmonary disease) Gastritis Depression Cholelithiasis with chronic cholecystitis Biliary dyskinesia Vitamin D deficiency Eczema Crushing injury of third toe of right foot Bilateral primary osteoarthritis of hip Obesity (BMI 30-39.9) Anxiety Benign essential hypertension Gallstones Tension headache Post depression BMI 39.0-39.9,adult Trigger finger of left thumb Trigger finger of right thumb Insomnia Morbid obesity with BMI of 40.0-44.9, adult Smoker Carpal tunnel syndrome, bilateral Personal history of gestational diabetes PCOS (polycystic ovarian syndrome) Migraines Vulvar cyst Hyperlipemia Fibromyalgia Rheumatoid arthritis Surgical History S/P laparoscopic cholecystectomy (03/06/23) H/O tubal ligation History of hip replacement, total History of esophagogastroduodenoscopy (EGD) History of removal of cyst History of tonsillectomy and adenoidectomy Family History Father Medical history unknown Mother Diabetes Hypertension Maternal Aunt Breast cancer Ovarian cancer Mental health disorder Maternal Grandmother Diabetes Hypertension Social History Household Members: Significant Other and Children Housing: House Alcohol intake: current Alcohol intake frequency: holidays/special occasions only Patient Tobacco Use Status: Former Tobacco user Tobacco use type: Cigarette e-Cigarette/Vaping Use: Never Used Second Hand Smoke Exposure: No Substance Use Type: Marijuana service: No Current occupational status: disabled Sexual orientation: Straight/Heterosexual Gender identity: Female Cognitive needs: No Hearing needs: No Vision needs: Yes (Glasses) Female Reproductive History Menstrual Age of Menarche: 8 Review of Systems Const Denies fatigue, Denies fever(s), Denies night sweats, Denies poor appetite and Denies weight loss ENT Reports Normal hearing present, Denies dental pain, Denies dysphagia, Denies hearing loss, Denies mouth pain, Denies odynophagia, Denies throat swelling, Denies tongue swelling and Reports other (Dentition adequate) Card Reports no additional complaints Resp Reports no additional complaints GI Details: Denies abdominal pain, Denies melena, Denies bloating, Denies hematochezia, Reports constipation, Denies GI cramping, Denies dysphagia, Denies excessive flatus, Reports early satiety, Reports heartburn, Reports diarrhea, Denies nausea, Denies odynophagia, Denies vomiting and Denies hematemesis Skin/Breast Denies pruritus, Denies lesions, Denies rash and Denies jaundice Neuro Reports Normal hearing present and Denies Abnormal speech present Endo Denies fatigue Aller/Immun Denies throat swelling and Denies tongue swelling Physical Exam Vital Signs: Last Vital Signs Pulse 66 03/25/25 09:39 BP 136/86 03/25/25 09:39 Pulse Ox 100 03/25/25 09:39 Oxygen Delivery Method Room Air 03/25/25 09:39 BMI result Body Mass Index 37.0 Const General: cooperative, no acute distress, well developed and well groomed Nutritional Appearance: well nourished and obese Orientation/consciousness: oriented to person, oriented to place and oriented to time Limitations: No language barrier HEENT Head: Yes normocephalic and Yes atraumatic Eyes General: appearance normal, both eyes and all related structures Pupils: Equal, round and reactive pupils present Neck Neck: Yes normal visual inspection and Yes no lymphadenopathy Thyroid: Thyroid normal Resp Effort & Inspection: normal respiratory effort and able to speak in complete sentences Auscultation: clear to auscultation bilaterally Cardio Rate: regular rate Rhythm: regular rhythm Heart sounds: Normal, physiologic split S2 sound present Peripheral pulses: radial pulses present and posterior tibial pulses present GI Inspection: No distended, Yes Abdominal panniculus present and Yes obesity Palpation (GI): Soft to palpation, nontender, no guarding, not rigid and No hepatosplenomegaly present Percussion: Yes normal to percussion Auscultation: normal bowel sounds Rectal Exam - Female: deferred Skin General skin exam: no rashes or lesions noted, turgor normal, skin not dry, no jaundice, No spider nevi and no striae Rashes: no rashes Nails: normal Neuro General: oriented to person, oriented to place and oriented to time Cranial nerves: Yes Equal, round and reactive pupils present and Yes Normal hearing present Speech: No Abnormal speech present Extrem General: Yes normal to inspection, No clubbing, No cyanosis and No edema Psych Appearance: grossly normal and well kempt Mental Status: mental status grossly normal Speech and movement: Normal speech and movement present Affect: normal affect Attitude: cooperative Thought process: Normal thought process present and not confabulating Thought content: Normal thought content present Insight: Limited insight present (Psych) Judgement: Limited judgement present (Psych) Assessment & Plan Assessment & Plan (1) Chronic idiopathic constipation: Code(s): K59.04 - Chronic idiopathic constipation Category: Medical (2) Mesenteric panniculitis: Comment: 12/2024 CT, she does not do well with prednisone r/t HTN and anxiety Code(s): K65.4 - Sclerosing mesenteritis Category: Medical (3) Delayed gastric emptying: Code(s): K30 - Functional dyspepsia Category: Medical (4) GERD (gastroesophageal reflux disease): Code(s): K21.9 - Gastro-esophageal reflux disease without esophagitis Category: Medical Qualifiers: Esophagitis presence: without esophagitis Qualified Code(s): K21.9 - Gastro-esophageal reflux disease without esophagitis Plan Her medication regimen consists of metoclopramide 5 mg 4 times a day, Creon 36,000, Linzess 290 and Dexilant. She continues to complain of not being able to take Linzess every day without having diarrhea. However, with a more in-depth conversation I find that she is taking bisacodyl every day and utilizing the Linzess as PRN. I advised him that that is not the way it is supposed to be the Linzess isn't intended for daily use and the bisacodyl would only be used for breakthrough. I think if she reverses the way this is taken she will have less trouble with abdominal pain and cramping which I believe is related to her starting and stopping her Linzess. She continues on Creon for her bloating in his satisfied with this medication. She also continues on her Reglan without any adverse effects. Her GERD is well controlled on Dexilant. Return office visit in 6 weeks to evaluate the change in medication and see if we need to further titrate the daily Linzess. Coding Level of Care Code Est Pt Level 3 (07290) Diagnoses Chronic idiopathic constipation K59.04 Mesenteric panniculitis K65.4 Delayed gastric emptying K30 Gastroesophageal reflux disease without esophagitis K21.9 Esophagitis presence: without esophagitis
[2025-03-25 09:39] VITALS: BP 136/86; PULSE 66; O2SAT 100; BMI 37.0
== END 2025-03-25 10:17 | disposition home or self-care (01) ==
LOC: HO.HGI 09:31
PROVIDERS: PCP Internal Medicine; Visit Provider Nurse Practitioner
DX: K59.04 Chronic idiopathic constipation (principal); K65.4 Sclerosing mesenteritis; K30 Functional dyspepsia; K21.9 Gastro-esophageal reflux disease without esophagitis
CPT/HCPCS: 99213

== ENCOUNTER → 2025-03-25 09:30 | Outpatient (BNVA) | payer OTHER, SELFPAY | PROVIDERS: PCP Internal Medicine; Visit Provider Nurse Practitioner | DX: K59.04 Chronic idiopathic constipation (principal); K30 Functional dyspepsia; K21.9 Gastro-esophageal reflux disease without esophagitis; K65.4 Sclerosing mesenteritis | CPT/HCPCS: 99212 ==

== ENCOUNTER 2025-04-26 16:09 | Outpatient (REF) | payer OTHER, SELFPAY ==
--- OUTSIDE RECORDS SUMMARY | 2025-04-21 23:59 | XMS_ITS | Continuity of Care Document ---
Author Organization [facility] [employer] Address [address] [place] [address], [address] [place] [address]- Care Team Providers Care Pastry Assistant Name Role Phone Lane GAMBOA, Jarrod Oneil Primary Care Physician [phone] [id number] Date[facility]s): 03/22/25 - 04/21/25 [facility] [employer] [email or web address] [facility] [address], [address] [place] [address]- Encounter Type: Triage Allergies, Adverse Reactions, Alerts Substance Criticality Severity Reaction Reaction Severity Status Feraheme 1 Active amoxicillin Rash Active topiramate Swelling of throat Active Provera Bleeding Active Latex Skin rash Active Lactose Not available Active 1Chest pressure, lightheaded, scratchy throat Immunizations Given and Recorded Vaccine Date Status Refusal Reason Human Papillomavirus Vaccine 04/08/25 Given Human Papillomavirus Vaccine 11/04/15 Recorded Human Papillomavirus Vaccine 05/16/15 Recorded tetanus/diphtheria/pertussis, acel(Tdap) 10/27/20 Given tetanus/diphtheria/pertussis, acel(Tdap) 10/09/19 Given Measles/Mumps/Rubella Virus Vaccine 10/22/19 Given Medications acetaminophen 325 mg oral tablet 650 mg, By Mouth, Every 6 hours, May take OTC not to exceed 3000 mg/day, Refills 0, Maintenance, 07/24/22 8:19:00 AM EST, Partial fill upon patient request if the prescription is for a schedule II opioid drug. Start Date: 07/24/22 Status: Ordered Medication Dispense Status: Completed Total Allowed Fills: 1 Fills Dispensed: 0 Advair HFA 115 mcg / 21 mcg 0 Refills, Maintenance, 06/19/23 2:16:00 PM EST, Partial fill upon patient request if the prescription is for a schedule II opioid drug. Start Date: 06/19/23 Status: Ordered Medication Dispense Status: Completed Total Allowed Fills: 1 Fills Dispensed: 0 Albuterol 0.083% inhalation jenny 2.5 mg, 3, mL, BAND Nebulizer, Every 4 hours, PRN, Refills 0, Maintenance, Wheezing/Shortness of Breath, 10/25/23 9:07:00 AM EDT, Inhalation Solution Start Date: 10/25/23 Status: Ordered Medication Dispense Status: Completed Total Allowed Fills: 1 Fills Dispensed: 0 aspirin 325 mg oral delayed release tablet 325 mg, By Mouth, 2 times a day, Refills 0, Maintenance, 10/25/23 9:08:00 AM EDT, Partial fill upon patient request if the prescription is for a schedule II opioid drug. Start Date: 10/25/23 Status: Ordered Medication Dispense Status: Completed Total Allowed Fills: 1 Fills Dispensed: 0 Breo Ellipta 200 mcg-25 mcg/inh inhalation powder 60 each, 0 Refill(s), INHALE 1 PUFF DAILY, 0 Refills, 12/22/24 10:08:00 AM EDT, Partial fill upon patient request if the prescription is for a schedule II opioid drug. Start Date: 12/22/24 Status: Ordered Medication Dispense Status: Completed Total Allowed Fills: 1 Fills Dispensed: 0 busPIRone 7.5 mg oral tablet 180 each, 0 Refill(s), TAKE 1 TAB TWICE A DAY DIRECTED 1 TABLET AM + ONE TABLET PM 20 MINUTES BEFORE MEALS, 0 Refills, 12/22/24 10:08:00 AM EDT, Partial fill upon patient request if the prescriptionis for a schedule II opioid drug. Start Date: 12/22/24 Status: Ordered Medication Dispense Status: Completed Total Allowed Fills: 1 Fills Dispensed: 0 Dexilant 60 mg oral delayed release capsule 1 capsule = 60 mg, By Mouth, Daily, # 30 capsule, 0 Refills, Maintenance, 07/23/22 6:39:00 AM EST, ECCapsule, Partial fill upon patient request if the prescription is for a schedule II opioid drug. Start Date: 07/23/22 Status: Ordered Medication Dispense Status: Completed Quantity: 30.0 Unit: capsule Total Allowed Fills: 1 Fills Dispensed: 0 EpiPen 2-Ralph 0.3 mg injectable kit = 0.3 mg, Intramuscular, Once, # 1 kit, 0 Refills, Soft Stop, 12/29/24 8:56:00 AM EDT, [facility]/pharmacy #[id number], Partial fill upon patient request if the prescription is for a schedule II opioid drug., 154,cm, 12/22/24 10:42:00 EDT, Height, 93.2, kg, 11/17/24 10:44:00 EDT, Dry Weight Start Date: 12/29/24 Status: Ordered Medication Dispense Status: Completed Quantity: 1.0 Unit: kit Total Allowed Fills: 1 Fills Dispensed: 0 Gabapentin = 400 mg, By Mouth, 3 times a day, 0 Refills, Maintenance, 04/24/21 9:28:00 PM EST, Partial fill upon patient request if the prescription is for a schedule II opioid drug. Start Date: 04/24/21 Status: Ordered Medication Dispense Status: Completed Total Allowed Fills: 1 Fills Dispensed: 0 hydrOXYzine hydrochloride 25 mg oral tablet 30 each, 0 Refill(s), TAKE 1 TABLET BY MOUTH EVERY DAY FOR ANXIETY, 0 Refills, 12/22/24 10:10:00 AM EDT, Partial fill upon patient request if the prescription is for a schedule II opioid drug. Start Date: 12/22/24 Status: Ordered Medication Dispense Status: Completed Total Allowed Fills: 1 Fills Dispensed: 0 labetalol 100 mg oral tablet 2 tablet = 200 mg, By Mouth, 2 times a day, 0 Refills, Maintenance, 07/24/22 8:19:00 AM EST, Tablet, Partial fill upon patient request if the prescription is for a schedule II opioid drug. Start Date: 07/24/22 Status: Ordered Medication Dispense Status: Completed Total Allowed Fills: 1 Fills Dispensed: 0 Linzess = 145 mcg, By Mouth, Daily, 0 Refills, Maintenance, 07/03/22 2:13:00 PM EST, Partial fill upon patient request if the prescription is for a schedule II opioid drug. Start Date: 07/03/22 Status: Ordered Medication Dispense Status: Completed Total Allowed Fills: 1 Fills Dispensed: 0 lithium 150 mg oral capsule 60 each, 0 Refill(s), TAKE 1 CAPSULE BY MOUTH TWICE A DAY DIRECTED, 0 Refills, 12/22/24 10:12:00 AM EDT, Partial fill upon patient request if the prescription is for a schedule II opioid drug. Start Date: 12/22/24 Status: Ordered Medication Dispense Status: Completed Total Allowed Fills: 1 Fills Dispensed: 0 LORazepam 1 mg oral tablet 30 each, 0 Refill(s), TAKE 1 TABLET BY MOUTH ONCE A DAY NEEDED DO NOT USE WHEN DRIVING OR CONSUMING ALCOHOL, 0 Refills, 12/22/24 10:12:00 AM EDT, Partial fill upon patient request if the prescription is for a schedule II opioid drug. Start Date: 12/22/24 Status: Ordered Medication Dispense Status: Completed Total Allowed Fills: 1 Fills Dispensed: 0 naltrexone 50 mg oral tablet 30 each, 0 Refill(s), TAKE 1 TABLET BY MOUTH EVERY DAY IN THE MORNING, 0 Refills, 12/22/24 10:11:00 AM EDT, Partial fill upon patient request if the prescription is for a schedule II opioid drug. Start Date: 12/22/24 Status: Ordered Medication Dispense Status: Completed Total Allowed Fills: 1 Fills Dispensed: 0 pantoprazole 40 mg oral delayed release tablet = 40 mg, By Mouth, Daily, 0 Refills, Maintenance, 10/25/23 9:08:00 AM EDT, EC Tablet Start Date: 10/25/23 Status: Ordered Medication Dispense Status: Completed Total Allowed Fills: 1 Fills Dispensed: 0 sertraline 100 mg oral tablet 180 each, 0 Refill(s), TAKE 2 TABLETS BY MOUTH EVERY DAY DIRECTED, 0 Refills, 12/22/24 10:11:00 AMEDT, Partial fill upon patient request if the prescription is for a schedule II opioid drug. Start Date: 12/22/24 Status: Ordered Medication Dispense Status: Completed Total Allowed Fills: 1 Fills Dispensed: 0 Symbicort 160mcg/4.5mcg Inhaler 10 Gm, 0 Refill(s), INHALE 2 PUFFS EVERY 12 HOURS, Refills 0, 12/22/24 10:10:00 AM EDT Start Date: 12/22/24 Status: Ordered Medication Dispense Status: Completed Total Allowed Fills: 1 Fills Dispensed: 0 Problem List Condition Confirmation Course Effective Dates Status Health St atus Informant Anemia Confirmed Active Anxiety 1 Confirmed Active Arthritis Confirmed Active Bipolar disorder Confirmed Active Depression Confirmed Active Fibromyalgia Confirmed Active GERD (gastroesophageal reflux disease) Confirmed Active Hemorrhoid Confirmed Active Chronic hypertension Confirmed Active Marijuana use 2 Confirmed Active Migraines Confirmed Active Panic attacks Confirmed Active PCOS (polycystic ovarian syndrome) Confirmed Active Severe obesity (BMI 35.0-39.9) with comorbidity Confirmed Active 1on Sertraline now, helping and has therapist and psychatrist 2Smoke in the morning for nausea and anxiety Social History Social History Type Response Smoking Status Former smoker, quit more than 30 days ago entered on: 08/04/20 Sexual Orientation Self described orien tation: ; Bisexual Sex Sex Representation Female (finding) Patient Care team information Care Team Personnel Name: Lane GAMBOA, Jarrod Oneil Position: Reference Physician Member Role: PCP Address: [address] [place] [id number] Telecom: Name: Denise Hurt RN Position: S RN Member Role: Primary Care Nurse Name: Katie Berger RN Position: [facility] RN Member Role: Primary Care Nurse Name: John Gtz RN Position: [facility] RN Member Role: Primary Care Nurse Name: Sugar Powell RN Position: [facility] RN Member Role: Primary Care Nurse Name: Arlene Vazquez RN Position: [facility]ATH[facility] Nurse Member Role: Primary Care Nurse Care Team Related Persons Name: MANJINDER SAHU Name: JOSE SAHU Name: DENNISE MCCLAIN Insurance Providers Guarantor name: [facility] Information #: 1 Payer: [employer] Payer Identifier: NA Member Number: [id number] Group Number: [id number] Subscriber Identifier: NA Relationship to Subscriber: self Coverage Type: NA Coverage Verification Date: NA Telecom: Address:
--- NOTE | ~2025-04-26 | US_ITS ---
EXAMINATION: US RETROPERITONEAL LIMITED (RENAL ONLY) CLINICAL INFORMATION: N20.0. Calculus of kidney.. COMPARISON: December 04, 2024. Correlated to noncontrast CT dated December 21, 2024. TECHNIQUE: Real-time ultrasound kidneys using grayscale technique. FINDINGS: RIGHT KIDNEY: 11 x 5 x 5 cm (SAG x AP x TRV). Volume: 119 cc. Normal echotexture. Renal cortical thickness is normal. No hydronephrosis. 3 mm hyperechoic structure at the corticomedullary junction of the lower pole. No solid or cystic lesion. LEFT KIDNEY: 12 x 5 x 4 cm (SAG x AP x TRV). Volume: 116 cc. Normal echotexture. Renal cortical thickness is normal. No hydronephrosis. No solid or cystic lesion. US/US renal BI IMPRESSION: 3 mm nephrolithiasis, right kidney. No hydronephrosis.. Electronically signed by: José Miguel Wynn MD 04/27/2025 06:49 AM EST
--- OUTSIDE RECORDS SUMMARY | 2025-04-26 17:57 | XMS_ITS | Encounter Summary ---
Author Organization [facility] Address [address] [facility] [place] [address] Phone Care Team Providers Care Aluminum Pourer Name Role Phone Jarrod Sherman MD Primary Care Provider [phone] [phone] Reason for Referral * Consultation (Within 1 month) - New Request Specialty Diagnoses / Procedures Referred By Sharon sánchez Referred To Contact Juan Grier MD [address] [place] [address] Phone: tel: fax: mailto:[email or web address] [address] Phone: tel: Referral ID Status Reason Start Date Expiration Date V isits Requested Visits Authorized [id number] New Request 04/26/2025 04/26/2026 1 1 Encounter Details Date Type Department Care Team (Late st Contact Info) Description 04/26/2025 Orders Only [facility] Department of Orthopaedics [address] [place] [address] Juan Grier MD [address] [place] [phone] [email or web address] Social History Tobacco Use Types Packs/Day Years [...] with a working camera? Not on file Intimate Partner Violence Answer Date R ecorded Are you denied basic needs s uch as food, clothing, or medical care? No 04/16/2025 In the past 12 months have y ou been in a relationship with a person who hurts, threatens, or tries to control you? No 04/16/2025 Are you denied basic needs s uch as food, clothing, or medical care? No 04/16/2025 In the past 12 months have y ou been in a relationship with a person who hurts, threatens, or tries to control you? No 04/16/2025 Comments Unknown Sex and Gender Information Value Date Recorded Sex Assigned at Female 02/18/2025 9:19 AM EDT Legal Sex Female 9:13 AM EDT Gender Identity Female 02/18/2025 9:19 AM EDT Sexual Orientation Bisexual 02/18/2025 9: 20 AM EDT documented as of this encounter Plan of Treatment Upcoming Encounters Date Type Department Care Team (Latest Contact Info) Description 06/21/2025 11:20 AM EST Pre-Admission Testing [address] [address] Juan Grier MD [address] [place] [address] [email or web address] 07/06/2025 Procedure Pass [facility] Peri 6th floor [address] [place] [address] 07/06/2025 7:30 AM EST Hospital Encounter [facility] Periop 6th floor [address] [place] [address] Juan Grier MD [address] [place] [address] [email or web address] 07/06/2025 7:30 AM EST - 07/06/2025 9:42 AM EST Surgery BWF Periop 6th floor [address] [place] [address] Juan Grier MD [address] [place] [address] [email or web address] ARTHROPLASTY UNICONDYLAR KNEE Scheduled Procedures Name Priority Associated Diagnoses Date/Ti me ARTHROPLASTY UNICONDYLAR KNEE Primary localized osteoarthritis of right knee 07/06/2025 7:30 AM EST ARTHROPLASTY TOTAL KNEE Primary localized osteoarthritis of right knee 07/06/2025 7:30 AM EST MODIFIER ARTHROPLASTY UNICONDYLAR KNEE ALLI Primary localized osteoarthritis of right knee 07/06/2025 7:30 AM EST MODIFIER ARTHROPLASTY TOTAL KNEE ALLI Primary localized osteoarthritis of right knee 07/06/2025 7:30 AM EST Scheduled Referrals Name Type Priority Associated Diagnoses Order Schedule Ambulatory referral to pre-op [facility] Outpatient Referral Routine Ordered: 04/26/2025 documented as of this encounter Goals Goal Patient Goal Type Associated Problems Recent Progress Patient-Stated? Author Autogenerat ed Goal Care Plan Autogenerated Problem No Whit Merino documented as of this encounter Visit Diagnoses Not on filedocumented in this encounter Additional Health Concerns Active Problems Noted Date Diagnosed Date Autogenerated Problem 04/26/2025 documented as of this encounter Care Teams Aluminum Pourer Relationship Specialty Start Date End Date Jarrod Sherman MD [address] [place] [address] [place] [address] PCP - General Internal Medicine 02/18/25 documented as of this encounter Additional Source Comments The information contained in this document represents components of the legal health record. It is not the complete legal health record.[facility]
--- OUTSIDE RECORDS SUMMARY | 2025-04-26 17:57 | XMS_ITS | Encounter Summary ---
Author Organization [facility] Address [address] [place] [address] Phone Care Team Providers Care Front End Loader Driver Name Role Phone Jarrod Sherman MD Primary Care Provider [phone] Encounter Details Date Type Department Care Team (Late st Contact Info) Description 04/16/2025 Orders Only [facility] Department of Orthopaedics [address] [place] [address] Noreen Guerra [address] [place] [address] [email or web address] Pain (Primary Dx) Social History Tobacco Use Types Packs/Day Years [...] Description 06/21/2025 11:20 AM EST Pre-Admission Testing [address] [address] Juan Grier MD [address] [place] [address] [email or web address] 07/06/2025 [facility] Per[facility] 6th [address] [place] [address] 07/06/2025 7:30 AM EST [facility] Per[facility] 6th floor [address] [place] [address] Juan Grier MD [address] [place] [phone] [email or web address] 07/06/2025 7:30 AM EST - 07/06/2025 9:42 AM EST Surgery [facility] Peri 6th [address] [place] [address] Juan Grier MD [address] [place] [phone] [email or web address] UNICONDYLAR KNEE Scheduled Procedures Name Priority Associated Diagnoses Date/Ti pr ARTHROPLASTY UNICONDYLAR KNEE Primary localized osteoarthritis of right knee 07/06/2025 7:30 AM EST ARTHROPLASTY TOTAL KNEE Primary localized osteoarthritis of right knee 07/06/2025 7:30 AM EST MODIFIER ARTHROPLASTY UNICONDYLAR KNEE ALLI Primary localized osteoarthritis of right knee 07/06/2025 7:30 AM EST MODIFIER ARTHROPLASTY TOTAL KNEE ALLI Primary localized osteoarthritis of right knee 07/06/2025 7:30 AM EST documented as of this encounter Results * XR KNEE 4 OR MORE VIEWS (RIGHT) (04/16/2025 1:36 PM EDT) Anatomical Region Laterality Modality Knee Right Computed Radiogr aphy 04/16/2025 3:40 PM EDT Impressions 04/16/2025 3:45 PM EDT Leg lengths, as above. Lateralization of the weightbearing axes bilaterally, worse on the right side. Degenerative changes of both knees. Narrative 04/16/2025 3:45 PM EDT XR BONE LENGTH STUDY, XR KNEE 4 OR MORE VIEWS (RIGHT) Referring clinician's provided indication for this examination in Epic: Osteoarthritis COMPARISON: None FINDINGS: Left lower extremity measures 76.6 cm. There is moderate lateralization of the weightbearing axis. Right lower extremity measures 76.7 cm. There are severe lateralization of the weightbearing axis. Hips: Intact bilateral total hip arthroplasties. No hardware complications. Degenerative changes of the lower lumbar spine. Left Knee: Severe lateral joint space narrowing with spurring. Right Knee: Severe lateral joint space narrowing. Prominent spurring in the 3 compartments. Small joint effusion on lateral view. Ankles: Normal joint spaces. Procedure Note Judah Villela MD - 04/16/2025 XR BONE LENGTH STUDY, XR KNEE 4 OR MORE VIEWS (RIGHT) Referring clinician's provided indication for this examination in Epic:Osteoarthritis COMPARISON: None FINDINGS: Left lower extremity measures 76.6 cm. There is moderate lateralization ofthe weightbearing axis. Right lower extremity measures 76.7 cm. There are severe lateralization ofthe weightbearing axis. Hips: Intact bilateral total hip arthroplasties. No hardwarecomplications. Degenerative changes of the lower lumbar spine. Left Knee: Severe lateral joint space narrowing with spurring. Right Knee: Severe lateral joint space narrowing. Prominent spurring inthe 3 compartments. Small joint effusion on lateral view. Ankles: Normal joint spaces. IMPRESSION: Leg lengths, as above. Lateralization of the weightbearing axesbilaterally, worse on the right side. Degenerative changes of bothknees. us Juan Grier MD IMG XR LOWER EXTREMITY Final Res ult documented in this encounter Visit Diagnoses Diagnosis Pain- Primary Generalized pain Pain Generalized pain Primary localized osteoarthritis of right knee documented in this encounter Care Teams Front End Loader Driver Relationship Specialty Start Date End Date Jarrod Sherman MD [address] [place] [address] Dr [place] [facility] [place] [address] PCP - General Internal Medicine 02/18/25 documented as of this encounter Additional Source Comments The information contained in this document represents components of the legal health record. It is not the complete legal health record.[facility]
--- OUTSIDE RECORDS SUMMARY | 2025-04-26 17:57 | XMS_ITS | Clinical Summary ---
Author Organization [facility] Address [address] [place] [address] Phone Care Team Providers Care Plastic Molder Name Role Phone Jarrod Sherman MD Primary Care Provider [phone] Allergies Active Allergy Reactions Criticality Noted Date Comments Amoxicillin Rash Low 04/16/2025 Ferumoxytol 04/16/2025 Chest pressure, lightheaded, scratchy throat Lactose Unknown 02/21/2022 Latex Rash Low 04/16/2025 Medroxyprogesterone Bleeding High 04/16/2025 Topiramate Throat Tightness Medium 04/16/2025 Medications PROAIR RESPICLICK 90 mcg/actuation AePB INHALE 2 PUFFS EVERY 6 HOURS NEEDED FOR WHEEZE OR FOR SHORTNESS OF BREATH 5 Active LAXATIVE, BISACODYL, 5 mg EC tablet Take 10 mg by mouth nightly at bedtime. 5 Active buPROPion (WELLBUTRIN) 75 MG immediate release tablet Take 1 tablet by mouth every morning. 5 Active busPIRone (BUSPAR) 7.5 MG tablet 180 each, 0 Refill(s), TAKE 1 TAB TWICE A DAY DIRECTED 1 TABLET AM + ONE TABLET PM 20 MINUTES BEFORE MEALS, 0 Refills, 12/22/24 10:08:00 AM EDT, Partial fill upon patient request if the prescription is for a schedule II opioid drug. 5 Active cetirizine (ZYRTEC) 10 MG tablet take 1 tablet by mouth every day as needed for allergies 5 Active diclofenac sodium (VOLTAREN) 1 % Gel apply 2 grams to the affected area(s) by topical route 4 times per day 5 Active EPINEPHrine (EPIPEN) 0.3 mg/0.3 mL auto-injector Inject 0.3 mg into the muscle. 5 Active hydrocortisone 2.5 % ointment APPLY TO AFFECTED AREA 2 TO 3 TIMES A DAY NEEDED FOR ITCHING 5 Active hydrOXYzine (ATARAX) 25 MG tablet 30 each, 0 Refill(s), TAKE 1 TABLET BY MOUTH EVERY DAY FOR ANXIETY, 0 Refills, 12/22/24 10:10:00 AM EDT, Partial fill upon patient request if the prescription is for a schedule II opioid drug. 5 Active ibuprofen (ADVIL,MOTRIN) 600 MG tablet TAKE 1 TABLET BY MOUTH TWICE A DAY FOR PAIN 5 Active labetaloL (TRANDATE) 100 MG tablet Take 1 tablet by mouth 2 (two) times a day. 5 Active LORazepam (ATIVAN) 1 MG tablet 30 each, 0 Refill(s), TAKE 1 TABLET BY MOUTH ONCE A DAY NEEDED DO NOT USE WHEN DRIVING OR CONSUMING ALCOHOL, 0 Refills, 12/22/24 10:12:00 AM EDT, Partial fill upon patient request if the prescription is for a schedule II opioid drug. 5 Active pantoprazole (PROTONIX) 40 MG tablet Take 40 mg by mouth. 4 Active sertraline (ZOLOFT) 100 MG tablet Take 100 mg by mouth daily. Active Encounters Date Type Department Care Team Description 04/26/2025 Orders Only [facility] Department of Orthopaedics [address] [place] [address] Juan Grier MD 04/26/2025 Orders Only [facility] Department of Orthopaedics [address] [place] [address] Juan Grier MD Primary osteoarthritis of right knee (Primary Dx) 04/16/2025 2:00 PM EDT Office Visit [facility] Department of Orthopaedics [address] [place] [address] Juan Grier MD Primary localized osteoarthrosis of right lower leg (Primary Dx) 04/16/2025 1:13 PM EDT - 04/16/2025 11:59 PM EDT Hospital Encounter [facility], [place] [address] [place] [address] Juan Grier MD Discharge Disposition: Home or Self Care 04/16/2025 1:10 PM EDT - 04/16/2025 1:11 PM EDT Hospital Encounter [facility] [place] [address] [place] [address] Juan Grier MD Discharge Disposition: Home or Self Care 04/16/2025 Orders Only [facility] Department of Orthopaedics [address] [place] [address] Giancarloeisen, Noreen Gonzalezth Pain (Primary Dx) 04/05/2025 Orders Only [facility] Department of Orthopaedics [address] [place] [address] Juan Grier MD Primary osteoarthritis of left knee (Primary Dx) from Last 3 Months Social History Tobacco Use Types Packs/Day Years [...] Orientation Bisexual 02/18/2025 9: 20 AM EDT Last Filed Vital Signs Vital Sign Reading Time Taken Comments Blood Pressure - - Pulse - - Temperature - - Respiratory Rate - - Oxygen Saturation - - Inhaled Oxygen Concentration - - Weight 91.9 kg (202 lb 11.2 oz) 04/16/2025 1:56 PM EDT Height 154.9 cm (5' 1 ) 04/16/2025 1:56 PM EDT Body Mass Index 38.3 04/16/2025 1:56 PM EDT Plan of Treatment Upcoming Encounters Date Type Department Care Team (Latest Contact Info) Description 06/21/2025 11:20 AM EST Pre-Admission Testing [address] [address] Juan Grier MD [address] [place] [address] [email or web address] 07/06/2025 Procedure Pass [facility] Peri 6th floor [address] [place] [address] 07/06/2025 7:30 AM EST Hospital Encounter [facility] Peri 6th [address] [place] [address] Juan Grier MD [address] [place] [address] [email or web address] 07/06/2025 7:30 AM EST - 07/06/2025 9:42 AM EST Surgery [address] [place] [address] Juan Grier MD [address] [place] [phone] [email or web address] ARTHROPLASTY UNICONDYLAR KNEE Scheduled Procedures [...] of right knee 07/06/2025 7:30 AM EST Health Maintenance Due Date Last Done Comments DEPRESSION SCREENING 2001 SMOKING Hx and SMOKELESS TOBACCO SCREENING 2002 HEPATITIS C SCREENING 12/07/2007 HIV ONE-TIME SCREENING (18-6 5 YEARS) 12/07/2007 PAP SMEAR 2010 SCREENING FOR DIABETES 2024 INFLUENZA VACCINE (#1) 2025 , 07/27/2019 COVID-19 VACCINE (2024-2 6 season) 2025 01/08/2022, 06/30/2021, 06/08/2021 Adult Td,Tdap Booster 04/04/2026 04/04/2016 HEPATITIS A VACCINES Aged Out No long er eligible based on patient's age to complete this topic HIB VACCINES Aged Out No longer eligi ble based on patient's age to complete this topic IPV VACCINES Aged Out No longer eligi ble based on patient's age to complete this topic MENINGOCOCCAL VACCINES (ACWY) Aged Out No longer eligible based on patient's age to complete this topic MENINGOCOCCAL VACCINES (B) Aged Out N o longer eligible based on patient's age to complete this topic PNEUMOCOCCAL VACCINES (0-49 years) Aged Out No longer eligible b ased on patient's age to complete this topic Goals Goal Patient Goal Type Associated Problems Recent Progress Patient-Stated? Author Autogenerat ed Goal Care Plan Autogenerated Problem No Whit Merino Medical Devices Not on file Procedures Procedure Name Priority Date/Time Associated Diagnosis Comments XR KNEE 4 OR MORE VIEWS (RIGHT) Routine 04/16/2025 1:36 PM EDT Pain XR BONE LENGTH STUDY Routine 04/16/2025 1:36 PM EDT Primary osteoarthritis of left knee from Last 3 Months Results * XR KNEE 4 OR MORE [...] IMG XR LOWER EXTREMITY Final Res ult * XR Bone Length Study (04/16/2025 1:36 PM EDT) Anatomical Region Laterality Modality Leg Left, Leg Right, Thigh Left, Thigh Right Computed Radiography 04/16/2025 3:40 PM EDT Impressions 04/16/2025 3:45 PM EDT Leg lengths, as above. Lateralization of the weightbearing axes bilaterally, worse on the right side. Degenerative changes of both knees. Narrative 04/16/2025 3:45 PM EDT XR BONE LENGTH STUDY, XR KNEE 4 OR MORE VIEWS (RIGHT) Referring clinician's provided indication for this examination in [facility]: Osteoarthritis COMPARISON: None FINDINGS: Left lower extremity [...] clinician's provided indication for this examination in [facility]:Osteoarthritis COMPARISON: None FINDINGS: Left lower extremity measures [...] [email or web address]. us Juan Grier MD IMG XR SKELETAL SURVEY Final Res ult from Last 3 Months Additional Health Concerns Active Problems Noted Date Diagnosed Date Autogenerated Problem 04/26/[address] [place] [address] [place] [address] [place] [address] [place] [address] ACO Care Teams Plastic Molder Relationship Specialty Start Date End Date Jarrod Sherman MD [address] [place] [address] [place] [address] PCP - General Internal Medicine 02/18/25 Additional Source Comments The information contained in this document represents components of the legal health record. It is not the complete legal health record.[facility]
--- OUTSIDE RECORDS SUMMARY | 2025-04-26 17:57 | XMS_ITS | Encounter Summary ---
Author Organization [facility] Address [address] [place] [address] Phone Care Team Providers Care Manufacturing Quality Engineer Name Role Phone Jarrod Sherman MD Primary Care Provider [phone] Encounter Details Date Type Department Care Team (Late st Contact Info) Description 04/26/2025 Orders Only [facility] Department of Orthopaedics [address] [place] [address] Juan Grier MD [address] [place] [address] [email or web address] .[email or web address] Primary osteoarthritis of right knee (Primary Dx) Social History Tobacco Use Types [...] Description 06/21/2025 11:20 AM EST Pre-Admission Testing [place] [address] [place] [address] Juan Grier MD [address] [place] [phone] [email or web address] 07/06/[address] [facility] Periop 6th floor [address] [place] [address] 07/06/2025 7:30 AM EST Hospital Encounter [facility] Periop 6th floor [address] [place] [address] Juan Grier MD [address] [place] [phone] [email or web address] 07/06/2025 7:30 AM EST - 07/06/2025 9:[address] [facility] Periop 6th floor [address] [place] [address] Juan Grier MD [address] [place] [address] [email or web address] ARTHROPLASTY UNICONDYLAR KNEE Scheduled Orders Name Type Priority Associated Diagnoses Orde r Schedule 25-OH Vitamin D Lab Routine Primary osteoarthritis of right knee Expected: 05/26/2025, Expires: 07/27/2025 Calcium Lab Routine Primary osteoarthritis of right knee Expected: 04/26/2025, Expires: 04/26/2026 CBC and Differential Lab Routine Primary osteoarthritis of right knee Expected: 04/26/2025, Expires: 04/26/2026 Comprehensive Metabolic Panel (CMP) Lab Routine Primary osteoarthritis of right knee Expected: 04/26/2025, Expires: 04/26/2026 Hemoglobin A1c Lab Routine Primary osteoarthritis of right knee Expected: 04/26/2025, Expires: 04/26/2026 PT-INR Lab Routine Primary osteoarthritis of right knee Expected: 04/26/2025, Expires: 04/26/2026 Staphylococcus aureus (MRSA/MSSA), PCR, Preoperative Microbiology Routine Primary osteoarthritis of right knee Expected: 04/26/2025, Expires: 04/26/2026 Scheduled Procedures Name Priority Associated Diagnoses Date/Ti [...] AM EST documented as of this encounter Goals Goal Patient Goal Type Associated Problems Recent Progress Patient-Stated? Author Autogenerat ed Goal Care Plan Autogenerated Problem No Whit Merino documented as of this encounter Visit Diagnoses Diagnosis Primary osteoarthritis of right knee- Primary Primary localized osteoarthritis of right knee documented in this encounter Additional Health Concerns Active Problems Noted Date Diagnosed Date Autogenerated Problem 04/26/2025 documented as of this encounter Care Teams Manufacturing Quality Engineer Relationship Specialty Start Date End Date Jarrod Sherman MD [address] [place] [address] [place] [address] PCP - General Internal Medicine 02/18/25 documented as of this encounter Additional Source Comments The information contained in this document represents components of the legal health record. It is not the complete legal health record.[facility]
== END 2025-04-26 16:10 | disposition home or self-care (01) ==
LOC: HO.US 16:09
PROVIDERS: PCP Internal Medicine; Visit Provider Nurse Practitioner Family
DX: N20.0 Calculus of kidney (principal)
CPT/HCPCS: 76775

== ENCOUNTER → 2025-04-26 16:11 | Outpatient (BNV) | payer OTHER, SELFPAY | PROVIDERS: PCP Internal Medicine; Visit Provider Radiology Diagnostic Radiology | DX: N20.0 Calculus of kidney (principal) | CPT/HCPCS: 76775 ==

== ENCOUNTER 2025-05-12 09:25 | Outpatient (AMB) | payer OTHER, SELFPAY ==
--- NOTE | 2025-05-12 09:28 | A.OFFVIS_ITS ---
Vital Signs 05/12/25 09:29 Height 5 ft 1 in Weight 201 lb 0.985 oz BMI 38.0 BP 144/81 H Blood Pressure Location Lt brachial Position Sitting Intake Visit Reasons: 6 weeks severe CIC, N/V GERD Intake Note: Gabriella presents to in office follow up of CIC, N/V. CC: Patient reports RUQ abdominal pain, and vomiting every morning. [employer] Required: No Accompanied by: Self / Same As Patient Allergies amoxicillin (AMOXICILLIN) Allergy (Intermediate, Verified 05/12/25 09:30) NAUSEA & VOMITING, stomach pain, vomiting, stomach upset topiramate (From TOPAMAX) Allergy (Intermediate, Verified 05/12/25 09:30) TREMORS, nausea and vomiting latex (LATEX) Allergy (Mild, Verified 05/12/25 09:30) RASH medroxyprogesterone (From PROVERA) Allergy (Mild, Verified 05/12/25 09:30) RASH lactose Allergy (Verified 05/12/25 09:30) bloating , diarrhea HPI HPI 6 weeks severe CIC, N/V GERD: Details: Assessment & Plan (1) Chronic idiopathic constipation: Code(s): K59.04 - Chronic idiopathic constipation Category: Medical (2) Mesenteric panniculitis: Comment: 12/2024 CT, she does not do well with prednisone r/t HTN and anxiety Code(s): K65.4 - Sclerosing mesenteritis Category: Medical (3) Delayed gastric emptying: Code(s): K30 - Functional dyspepsia Category: Medical (4) GERD (gastroesophageal reflux disease): Code(s): K21.9 - Gastro-esophageal reflux disease without esophagitis Category: Medical Qualifiers: Esophagitis presence: without esophagitis Qualified Code(s): K21.9 - Gastro-esophageal reflux disease without esophagitis Plan Her medication regimen consists of metoclopramide 5 mg 4 times a day, Creon 36,000, Linzess 290 and Dexilant. She continues to complain of not being able to take Linzess every day without having diarrhea. However, with a more in-depth conversation I find that she is taking bisacodyl every day and utilizing the Linzess as PRN. I advised him that that is not the way it is supposed to be the Linzess isn't intended for daily use and the bisacodyl would only be used for breakthrough. I think if she reverses the way this is taken she will have less trouble with abdominal pain and cramping which I believe is related to her starting and stopping her Linzess. She continues on Creon for her bloating in his satisfied with this medication. She also continues on her Reglan without any adverse effects. Her GERD is well controlled on Dexilant. Return office visit in 6 weeks to evaluate the change in medication and see if we need to further titrate the daily Linzess. TODAY'S VISIT [facility] Medical History Primary osteoarthritis of right knee control counseling COPD (chronic obstructive pulmonary disease) Gastritis Depression Cholelithiasis with chronic cholecystitis Biliary dyskinesia Vitamin D deficiency Eczema Crushing injury of third toe of right foot Bilateral primary osteoarthritis of hip Obesity (BMI 30-39.9) Anxiety Benign essential hypertension Gallstones Tension headache Post depression BMI 39.0-39.9,adult Trigger finger of left thumb Trigger finger of right thumb Insomnia Morbid obesity with BMI of 40.0-44.9, adult Smoker Carpal tunnel syndrome, bilateral Personal history of gestational diabetes PCOS (polycystic ovarian syndrome) Migraines Vulvar cyst Hyperlipemia Fibromyalgia Rheumatoid arthritis Surgical History S/P laparoscopic cholecystectomy (03/06/23) H/O tubal ligation History of hip replacement, total History of esophagogastroduodenoscopy (EGD) History of removal of cyst History of tonsillectomy and adenoidectomy Family History Father Medical history unknown Mother Diabetes Hypertension Maternal Aunt Breast cancer Ovarian cancer Mental health disorder Maternal Grandmother Diabetes Hypertension Social History Household Members: Significant Other and Children Housing: House Alcohol intake: current Alcohol intake frequency: holidays/special occasions only Patient Tobacco Use Status: Former Tobacco user Tobacco use type: Cigarette e-Cigarette/Vaping Use: Never Used Second Hand Smoke Exposure: No Substance Use Type: Marijuana service: No Current occupational status: disabled Sexual orientation: Straight/Heterosexual Gender identity: Female Cognitive needs: No Hearing needs: No Vision needs: Yes (Glasses) Female Reproductive History Menstrual Age of Menarche: 8 Review of Systems Const Denies fatigue, Denies fever(s), Denies night sweats, Denies poor appetite and Denies weight loss ENT Reports Normal hearing present, Denies dental pain, Denies dysphagia, Denies hearing loss, Denies mouth pain, Denies odynophagia, Denies throat swelling, Denies tongue swelling and Reports other (Dentition adequate) Card Reports no additional complaints Resp Reports no additional complaints GI Details: Reports abdominal pain, Denies melena, Denies bloating, Denies hematochezia, Reports constipation, Denies GI cramping, Denies dysphagia, Reports excessive flatus, Denies early satiety, Reports heartburn, Denies diarrhea, Denies nausea, Denies odynophagia, Denies vomiting and Denies hematemesis Reports flank pain Musc Reports back pain, Reports numbness and Reports radiating pain into limb Skin/Breast Denies pruritus, Denies lesions, Denies rash and Denies jaundice Neuro Reports Normal hearing present, Denies Abnormal speech present and Reports numbness Psych Reports anxiety Endo Denies fatigue Aller/Immun Denies throat swelling and Denies tongue swelling Physical Exam Vital Signs: Last Vital Signs BP 144/81 H 05/12/25 09:29 BMI result Body Mass Index 38.0 Const General: cooperative, no acute distress, well developed and well groomed Nutritional Appearance: well nourished and obese Orientation/consciousness: oriented to person, oriented to place and oriented to time Limitations: No language barrier HEENT Head: Yes normocephalic and Yes atraumatic Eyes General: appearance normal, both eyes and all related structures Pupils: Equal, round and reactive pupils present Neck Neck: Yes normal visual inspection and Yes no lymphadenopathy Thyroid: Thyroid normal Resp Effort & Inspection: normal respiratory effort and able to speak in complete sentences Auscultation: clear to auscultation bilaterally Cardio Rate: regular rate Rhythm: regular rhythm Heart sounds: Normal, physiologic split S2 sound present Peripheral pulses: radial pulses present and posterior tibial pulses present GI Inspection: No distended, Yes Abdominal panniculus present and Yes obesity Palpation (GI): Soft to palpation, nontender, no guarding, not rigid and No hepatosplenomegaly present Percussion: Yes normal to percussion Auscultation: normal bowel sounds Rectal Exam - Female: deferred Skin General skin exam: no rashes or lesions noted, turgor normal, skin not dry, no jaundice, No spider nevi and no striae Rashes: no rashes Nails: normal Neuro General: oriented to person, oriented to place and oriented to time Cranial nerves: Yes Equal, round and reactive pupils present and Yes Normal hearing present Speech: No Abnormal speech present Extrem General: Yes normal to inspection, No clubbing, No cyanosis and No edema Psych Appearance: grossly normal and well kempt Mental Status: mental status grossly normal Speech and movement: Normal speech and movement present Affect: normal affect Attitude: cooperative Thought process: Normal thought process present and not confabulating Thought content: Normal thought content present Insight: Fair insight present (Psych) Judgement: Fair judgement present (Psych) Assessment & Plan Assessment & Plan (1) GERD (gastroesophageal reflux disease): Code(s): K21.9 - Gastro-esophageal reflux disease without esophagitis Category: Medical Qualifiers: Esophagitis presence: without esophagitis Qualified Code(s): K21.9 - Gastro-esophageal reflux disease without esophagitis (2) Chronic idiopathic constipation: Code(s): K59.04 - Chronic idiopathic constipation Category: Medical (3) Delayed gastric emptying: Code(s): K30 - Functional dyspepsia Category: Medical (4) Mesenteric panniculitis: Comment: 12/2024 CT, she does not do well with prednisone r/t HTN and anxiety Code(s): K65.4 - Sclerosing mesenteritis Category: Medical Plan Her medication regimen consists of metoclopramide 5 mg 4 times a day, Creon 36,000, Linzess 290 and Dexilant. We are trying to get her to take the Linzess every day and utilize the bisacodyl PRN as she was doing if the opposite way and having limited success. Subjective Patient presents for follow-up of gastrointestinal medication regimen and ongoing right-sided abdominal pain. She reports good control of bowel symptoms with Linzess taken in the morning and an additional capsule at night as needed, along with current medications. She continues to experience intermittent right- sided abdominal discomfort; prior renal ultrasound was performed. Pain etiology discussed as possibly renal versus bowel spasm related to a tight turn, or referred pain from the back. She is anxious with several upcoming procedures (cervical precancer procedure on May 18 and knee surgery in June) and notes weight gain from the 190s to approximately 210. History notable for diabetic gastroparesis requiring metoclopramide. She previously deferred proposed lower back surgery due to concerns about surgical risks and counseling quality, and is pursuing evaluation with another specialist. Family history includes an aunt with breast cancer and a sister who underwent oophorectomy for cancer. Objective Assessment & Plan Diabetic gastroparesis with constipation: Stable symptom control reported with current regimen. Continue current therapy. - Continue metoclopramide 5 mg four times daily - Continue pancrelipase (Creon 36,000) - Continue Linzess in the morning - Continue Dexilant - Continue Buscopan at night - Return in 6 months Right-sided abdominal pain: Etiology unclear; differential discussed includes renal source versus bowel spasm and potential referral from spine. Prior renal ultrasound completed. No acute changes in management today. - Monitor symptoms; no medication changes today - Continue coordination with master lay out specialist as planned Weight gain and anxiety with upcoming procedures; GLP-1 agonist counseling: GLP- 1 risks/benefits reviewed. Noted stronger cautions include history of thyroid cancer or pancreatitis; in this case, primary concern is gastroparesis, as GLP-1 agents can further slow gastric emptying. - Defer initiation of GLP-1 therapy at this time given gastroparesis - Reinforced education regarding medication effects and perioperative planning Preventive care: Colonoscopy not indicated at age 34 in the absence of specific indications. - Routine screening per age guidelines; no colonoscopy due now - Follow up in 6 months Coding Level of Care Code Est Pt Level 3 (42444) Diagnoses Gastroesophageal reflux disease without esophagitis K21.9 Esophagitis presence: without esophagitis Chronic idiopathic constipation K59.04 Delayed gastric emptying K30 Mesenteric panniculitis K65.4
[2025-05-12 09:29] VITALS: BP 144/81; BMI 38.0
--- OUTSIDE RECORDS SUMMARY | 2025-05-12 10:29 | XMS_ITS | Encounter Summary ---
Author Organization [facility] Address [address] [place] [phone] Phone Care Team Providers Care Investigator Name Role Phone Jarrod Sherman MD Primary Care Provider [phone] Encounter Details Date Type Department Care Team (Late st Contact Info) Description 04/16/2025 Orders Only [facility] Department of Orthopaedics [address] [place] [address] Noreen Guerra [address] [place] [address] [email or web address] Pain (Primary Dx) Social History Tobacco Use [...] Description 06/21/2025 11:20 AM EST Pre-Admission Testing [address] [address] Juan Grier MD [address] [place] [id number] [email or web address] 07/06/2025 Procedure Pass [facility] [address] [place] [phone] 07/06/2025 7:30 AM EST Hospital Encounter [facility] Peri 6th floor [address] [place] [address] Juan Grier MD [address] [place] [id number] [email or web address] 07/06/2025 7:30 AM EST - 07/06/2025 9:42 AM EST Surgery [address] [address] Juan Grier MD [address] [place] [phone] [email or web address] 08/11/2025 10:40 AM EST Office Visit [facility] Department of [facility]opaedics [address] [place] [address] Luann Chand PA-C [address] [place] [phone] [email or web address] Scheduled Procedures Name Priority Associated Diagnoses Date/Ti [...] knee documented in this encounter Care Teams Investigator Relationship Specialty Start Date End Date Jarrod Sherman MD [address] [place] [address] [place] [address] PCP - General Internal Medicine 02/18/25 documented as of this encounter Additional Source Comments The information contained in this document represents components of the legal health record. It is not the complete legal health record.[facility]
--- OUTSIDE RECORDS SUMMARY | 2025-05-12 10:30 | XMS_ITS | Clinical Summary ---
Author Organization [facility] Address [address] [facility] [address] [place] [address] Phone Care Team Providers Care Chief Catalyst Operator Name Role Phone Jarrod Sherman MD Primary Care Provider [phone] Allergies Active Allergy Reactions Criticality Noted Date [...] Department Care Team Description 04/26/2025 Orders Only [facility] Department of Orthopaedics [address] [place] [address] Juan Grier MD 04/26/2025 Orders Only [facility] Department of Orthopaedics [address] [place] [address] Juan Grier MD Primary osteoarthritis of right knee (Primary Dx) 04/16/2025 2:00 PM EDT Office Visit [facility] Department of Orthopaedics [address] [place] [address] Juan Grier MD Primary localized osteoarthrosis of right lower leg (Primary Dx) 04/16/2025 1:13 PM EDT - 04/16/2025 11:59 PM EDT Hospital Encounter [facility] Diagnostic X-ray Imaging, [place] [address] [place] [address] Juan Grier MD Discharge Disposition: Home or Self Care 04/16/2025 1:10 PM EDT - 04/16/2025 1:11 PM EDT Hospital Encounter [facility] Diagnostic X-ray Imaging, [place] [address] [place] [address] Juan Grier MD Discharge Disposition: Home or Self Care 04/16/2025 Orders Only [facility] Department of Orthopaedics [address] [place] [address] [place] Pain (Primary Dx) 04/05/2025 Orders Only [facility] Department of Orthopaedics [address] [place] [address] Juan Grier MD Primary osteoarthritis of left [...] Description 06/21/2025 11:20 AM EST Pre-Admission Testing [address] [address] Juan Grier MD [address] [place] [id number] [email or web address] 07/06/2025 Procedure Pass [facility] Peri 6th floor [address] [place] [id number] 07/06/2025 7:30 AM EST Hospital Encounter [facility] Peri 6th [address] [place] [address] Juan Grier MD [address] [place] [phone] [email or web address] 07/06/2025 7:30 AM EST - 07/06/2025 9:42 AM EST Surgery [facility] [address] [place] [address] Juan Grier MD [address] [place] [phone] [email or web address] 08/11/2025 10:40 AM EST Office Visit [facility] Department of [facility]edics [address] [place] [address] Luann Chand PA-C [address] [place] [address] [email or web address] Scheduled Procedures Name Priority Associated Diagnoses Date/Ti [...] PAP SMEAR 2010 INFLUENZA VACCINE (#1) 2025 , 07/27/2019 COVID-19 VACCINE ( - 2024-2 6 season) 2025 01/08/2022, 06/30/2021, 06/08/2021 Adult Td,Tdap Booster 04/04/2026 04/04/2016 SCREENING FOR DIABETES 05/06/2028 05/06/2025 HEPATITIS A VACCINES Aged Out No long [...] Procedure Name Priority Date/Time Associated Diagnosis Comments CBC AND DIFFERENTIAL Routine 05/06/2025 12:22 PM EST Primary osteoarthritis of right knee PT-INR Routine 05/06/2025 12:22 PM EST Primary osteoarthritis of right knee HEMOGLOBIN A1C Routine 05/06/2025 12:22 PM EST Primary osteoarthritis of right knee COMPREHENSIVE METABOLIC PANEL (CMP) Routine 05/06/2025 12:22 PM EST Primary osteoarthritis of right knee CBC AND DIFFERENTIAL Routine 05/06/2025 12:22 PM EST Primary osteoarthritis of right knee 25-OH VITAMIN D Routine 05/06/2025 12:22 PM EST Primary osteoarthritis of right knee XR KNEE 4 OR MORE VIEWS (RIGHT) Routine 04/16/2025 1:36 PM EDT Pain XR BONE LENGTH STUDY Routine 04/16/2025 1:36 PM EDT Primary osteoarthritis of left knee from Last 3 Months Results * (ABNORMAL) Comprehensive Metabolic Panel (CMP) (05/06/2025 12:22 PM EST) Sodium 141 136 - 145 mmol/L 05/06/2025 2:20 PM [facility] Potassium 3.8 3.4 - 5.1 mmol/L 05/06/2025 2:20 PM [facility] Chloride 107 98 - 107 mmol/L 05/06/2025 2:20 PM [facility] CO2 23 20 - 31 mmol/L 05/06/2025 2:20 PM [facility] Anion Gap 11 3 - 17 mmol/L 05/06/2025 2:20 PM [facility] BUN 10 6 - 23 mg/dL 05/06/2025 2:20 PM [facility] Creatinine 0.60 0.50 - 1.00 mg/dL 05/06/2025 2:20 PM [facility] eGFR 120 >59 mL/min/1.7 3m2 05/06/2025 2:20 PM [facility] Comment:Estimated glomerular filtration rate calculated using the CKD-EPI refit equation. Glucose 143(H) 70 - 99 mg/dL 05/06/2025 2:20 PM [facility] Calcium 8.7 8.5 - 10.5 mg/dL 05/06/2025 2:20 PM [facility] AST 12 <33 U/L 05/06/2025 2:20 PM [facility] ALT 10 <34 U/L 05/06/2025 2:20 PM [facility] Alkaline Phosphatase 73 40 - 130 U/L 05/06/2025 2:20 PM [facility] Bilirubin, Total 0.2 0.0 - 1.2 mg/dL 05/06/2025 2:20 PM [facility] Total Protein 6.7 6.4 - 8.3 g/dL 05/06/2025 2:20 PM [facility] Albumin 3.7 3.5 - 5.2 g/dL 05/06/2025 2:20 PM [facility] Globulin 3.0 1.9 - 4.1 g/dL 05/06/2025 2:20 PM [facility] Blood (Blood) Venipuncture / Unknown 05/06/2025 12:22 PM EST 05/06/2025 12:30 PM EST us Juan Grier MD LAB BLOOD BKR ORDERABLES Final R esult [address] [id number] * (ABNORMAL) CBC and Differential (05/06/2025 12:22 PM EST) WBC 6.59 4.00 - 11.00 K/uL 05/06/2025 12:42 PM [facility] RBC 3.80(L) 4.00 - 5.20 M/uL 05/06/2025 12:42 PM [facility] Hemoglobin 10.4(L) 12.0 - 16.0 g/dL 05/06/2025 12:42 PM [facility] Hematocrit 33.2(L) 36.0 - 46.0 % 05/06/2025 12:42 PM [facility] MCV 87.4 80.0 - 100.0 fL 05/06/2025 12:42 PM [facility] MCH 27.4 27.0 - 31.0 pg 05/06/2025 12:42 PM [facility] MCHC 31.3(L) 32.0 - 36.0 g/dL 05/06/2025 12:42 PM [facility] MPV 10.6 8.4 - 12.0 fL 05/06/2025 12:42 PM [facility] RDW-CV 13.6 11.5 - 14.5 % 05/06/2025 12:42 PM [facility] PLT 263 150 - 450 K/uL 05/06/2025 12:42 PM [facility] Neutrophils 63.9 % 05/06/2025 12:42 PM [facility] Lymphocytes 24.4 % 05/06/2025 12:42 PM [facility] Monocytes 8.3 % 05/06/2025 12:42 PM [facility] Eosinophils 2.3 % 05/06/2025 12:42 PM [facility] Basophils 0.9 % 05/06/2025 12:42 PM [facility] Imm Grans 0.2 % 05/06/2025 12:42 PM [facility] NRBC 0.0 <=0.0 /100 WBCs 05/06/2025 12:42 PM [facility] Absolute Neutrophils 4.21 1.92 - 7.60 K/uL 05/06/2025 12:42 PM [facility] Absolute Lymphocytes 1.61 0.72 - 4.10 K/uL 05/06/2025 12:42 PM [facility] Absolute Monocytes 0.55 0.16 - 1.10 K/uL 05/06/2025 12:42 PM [facility] Absolute Eosinophils 0.15 0.00 - 0.50 K/uL 05/06/2025 12:42 PM [facility] Absolute Basophils 0.06 0.00 - 0.15 K/uL 05/06/2025 12:42 PM [facility] Absolute Imm Grans 0.01 0.00 - 0.09 K/uL 05/06/2025 12:42 PM [facility] Absolute NRBC 0.00 <=0.00 K cells/uL 05/06/2025 12:42 PM [facility] Absolute Neutrophils 4.21 1.92 - 7.60 K/uL 05/06/2025 12:42 PM [facility] Comment:Automated cell count . Manual ANC may differ if performed. Diff Type Auto 05/06/2025 12:42 PM [facility] Blood (Blood) Venipuncture / Unknown 05/06/2025 12:22 PM EST 05/06/2025 12:30 PM EST us Juan Grier MD LAB BLOOD BKR ORDERABLES Final R esult Performing Organization Address [facility] Co de Phone Number [address] [address] * (ABNORMAL) 25-OH Vitamin D (05/06/2025 12:22 PM EST) 25-OH Vitamin D, Total 15(L) 20 - 50 ng/mL 05/06/2025 2:33 PM [facility] Comment: Severe deficiency: <10 ng/mL Mild to moderate deficiency: 10-19 ng/mL Optimum levels: 20-50 ng/mL Increased risk of hypercalciuria: 51-80 ng/mL Possible toxicity: >80 ng/mL Blood (Blood) Venipuncture / Unknown 05/06/2025 12:22 PM EST 05/06/2025 12:30 PM EST us Juan Grier MD LAB BLOOD BKR ORDERABLES Final R esult Performing Organization Address [facility]/ZIP Co de Phone Number [address] [address] * PT-INR (05/06/2025 12:22 PM EST) PT 12.9 10.0 - 13.0 sec 05/06/2025 1:07 PM EST [facility] INR 1.0 0.9 - 1.1 05/06/2025 1:07 PM [facility] Comment:Therapeutic Range 2. 0 - 3.5 Blood (Blood) Venipuncture / Unknown 05/06/2025 12:22 PM EST 05/06/2025 12:30 PM EST Juan Grier MD LAB BLOOD BKR ORDERABLES Final R esult Performing Organization Address [facility] Co de Phone Number [address] [address] * Hemoglobin A1c (05/06/2025 12:22 PM EST) Hemoglobin A1c 4.9 4.3 - 5.6 % 05/06/2025 1:29 PM [facility] Calculated Mean Blood Glucose 94 mg/dL 05/06/2025 1:29 PM [facility] Comment:There is no [facility] normal range for the Estimated Average Glucose (EAG). However, a HbA1c of 5.6% (upper limit of normal) represents an EAG of 114 mg/dL. The diagnostic HbA1c level for diabetes is greater than or equal to 6.5%, which represents an EAG greater than or equal to 140 mg/dL. Blood (Blood) Venipuncture / Unknown 05/06/2025 12:22 PM EST 05/06/2025 12:30 PM EST Juan Grier MD LAB BLOOD BKR ORDERABLES Final R esult Performing Organization Address [facility] Co de Phone Number [address] [phone] * XR KNEE 4 OR MORE VIEWS [...] the right side. Degenerative changes of bothknees. Juan Grier MD IMG XR SKELETAL SURVEY Final Res ult from Last 3 Months Additional Health Concerns Active Problems Noted Date Diagnosed Date Autogenerated Problem 04/26/2025 Insurance [employer] [place] [address] [place] [address] [place] [address] [place] [address] ACO Care Teams Chief Catalyst Operator Relationship Specialty Start Date End Date Jarrod Sherman MD [address] [place] [address] [place] [address] PCP - General Internal Medicine 02/18/25 Additional Source Comments The information contained in this document represents components of the legal health record. It is not the complete legal health record.[facility]
== END 2025-05-12 10:11 | disposition home or self-care (01) ==
LOC: HO.HGI 09:26
PROVIDERS: PCP Internal Medicine; Visit Provider Nurse Practitioner
DX: K21.9 Gastro-esophageal reflux disease without esophagitis (principal); K59.04 Chronic idiopathic constipation; K30 Functional dyspepsia; K65.4 Sclerosing mesenteritis
CPT/HCPCS: 99213

== ENCOUNTER → 2025-05-12 09:25 | Outpatient (BNVA) | payer OTHER, SELFPAY | PROVIDERS: PCP Internal Medicine; Visit Provider Nurse Practitioner | DX: K21.9 Gastro-esophageal reflux disease without esophagitis (principal); K59.04 Chronic idiopathic constipation; K30 Functional dyspepsia; K65.4 Sclerosing mesenteritis; E11.43 Type 2 diabetes mellitus with diabetic autonomic (poly)neuropathy; R10.11 Right upper quadrant pain; R63.5 Abnormal weight gain; Z68.38 Body mass index [BMI] 38.0-38.9, adult; Z79.899 Other long term (current) drug therapy | CPT/HCPCS: 99212 ==

== ENCOUNTER 2025-05-20 08:14 | Outpatient (AMB) | payer OTHER, SELFPAY ==
--- NOTE | 2025-05-20 08:17 | MHC.OFFVIS ---
Intake Visit Reasons: 3m/US/UA Intake Note: Patient is present for 3M/US/UA Urology Medication:VITAMIN B6 Antibiotic Allergy:AMOXICILLIN Blood Thinner:NONE Aquaculture Director Required: No Allergies amoxicillin (AMOXICILLIN) Allergy (Intermediate, Verified 05/20/25 08:20) NAUSEA & VOMITING, stomach pain, vomiting, stomach upset topiramate (From TOPAMAX) Allergy (Intermediate, Verified 05/20/25 08:20) TREMORS, nausea and vomiting latex (LATEX) Allergy (Mild, Verified 05/20/25 08:20) RASH medroxyprogesterone (From PROVERA) Allergy (Mild, Verified 05/20/25 08:20) RASH lactose Allergy (Verified 05/20/25 08:20) bloating , diarrhea HPI Comments Details: Gabriella is a very pleasant 34-year-old female patient of Dr. Sherman who was accompanied by her significant other at today's office visit. She has a past medical history of eczema, anxiety, hypertension, depression, headaches, obesity, carpal tunnel syndrome, PCOS, fibromyalgia, and rheumatoid arthritis. She presents to the office today for follow-up of her nephrolithiasis. In discussion with the patient today she reports to be doing and feeling well. She does report having had intermittent episodes of right-sided flank pain however describes these episodes as infrequent and self-limiting. Most recent renal imaging results reviewed with the patient today. 05/11 bilateral kidneys are normal in echotexture. 3 mm lower pole nonobstructing calculus. No hydronephrosis or cystic lesions noted bilaterally. She reports she is drinking plenty of water daily as well as compliance with vitamin B6 as prescribed. In office urinalysis results reviewed with the patient today. She does have a previous history of surgical intervention including left-sided ESWL. She otherwise denies incontinence, nocturia, hematuria, dysuria, foul smelling urine, changes to urinary stream, fever, and or chills. All questions were answered. She otherwise offers no other issues or concerns at this time. [facility] Medical History Primary osteoarthritis of right knee control counseling COPD (chronic obstructive pulmonary disease) Gastritis Depression Cholelithiasis with chronic cholecystitis Biliary dyskinesia Vitamin D deficiency Eczema Crushing injury of third toe of right foot Bilateral primary osteoarthritis of hip Obesity (BMI 30-39.9) Anxiety Benign essential hypertension Gallstones Tension headache Post depression BMI 39.0-39.9,adult Trigger finger of left thumb Trigger finger of right thumb Insomnia Morbid obesity with BMI of 40.0-44.9, adult Smoker Carpal tunnel syndrome, bilateral Personal history of gestational diabetes PCOS (polycystic ovarian syndrome) Migraines Vulvar cyst Hyperlipemia Fibromyalgia Rheumatoid arthritis Surgical History S/P laparoscopic cholecystectomy (03/06/23) H/O tubal ligation History of hip replacement, total History of esophagogastroduodenoscopy (EGD) History of removal of cyst History of tonsillectomy and adenoidectomy Family History Father Medical history unknown Mother Diabetes Hypertension Maternal Aunt Breast cancer Ovarian cancer Mental health disorder Maternal Grandmother Diabetes Hypertension Social History Household Members: Significant Other and Children Housing: House Alcohol intake: current Alcohol intake frequency: holidays/special occasions only Patient Tobacco Use Status: Former Tobacco user Tobacco use type: Cigarette e-Cigarette/Vaping Use: Never Used Second Hand Smoke Exposure: No Substance Use Type: Marijuana service: No Current occupational status: disabled Sexual orientation: Straight/Heterosexual Gender identity: Female Cognitive needs: No Hearing needs: No Vision needs: Yes (Glasses) Female Reproductive History Menstrual Age of Menarche: 8 Review of Systems Const All systems reviewed & are unremarkable except as noted in HPI and below Physical Exam Const General: cooperative, healthy appearing, comfortable, no acute distress, well developed, alert and awake Nutritional Appearance: overweight Orientation/consciousness: patient oriented x3 Limitations: no limitations HEENT Head: Yes normal to inspection, Yes normocephalic and Yes atraumatic Ears: hearing grossly normal bilaterally Eyes General: appearance normal, both eyes and all related structures Neck Neck: Yes normal visual inspection and Yes trachea midline Chest Chest palpation & inspection: normal inspection of the chest Resp Effort & Inspection: normal respiratory effort and able to speak in complete sentences Cardio Rate: regular rate GI Inspection: Yes normal to inspection General: Yes no CVA tenderness Back/Spine/Pelvis Back: no CVA tenderness Skin General skin exam: no rashes or lesions noted Neuro General: patient oriented x3 Extrem General: Yes normal to inspection Psych Appearance: grossly normal and well kempt Mental Status: mental status grossly normal Speech and movement: Normal speech and movement present and Clear speech present Affect: normal affect Attitude: cooperative Thought process: Normal thought process present Thought content: Normal thought content present Insight: Fair insight present (Psych) Judgement: Fair judgement present (Psych) Results AMB Urinalysis, Automated UA Leukoctes 0 Antonino/uL Last Edit by RUMA Watters on 05/20/25 08:30 UA Nitrite Negative Last Edit by RUMA Watters on 05/20/25 08:30 UA Urobilinogen 0.2 mg/dL Last Edit by RUMA Watters on 05/20/25 08:30 UA Protein 0 mg/dL Last Edit by RUMA Watters on 05/20/25 08:30 UA pH 6.0 Last Edit by RUMA Watters on 05/20/25 08:30 UA Blood 0 Elliott/uL Last Edit by RUMA Watters on 05/20/25 08:30 UA Specific [place] 1.015 Last Edit by RUMA Watters on 05/20/25 08:30 UA Ketone Negative Last Edit by RUMA Watters on 05/20/25 08:30 UA Bilirubin 0 mg/dL Last Edit by RUMA Watters on 05/20/25 08:30 UA Glucose 0 mg/dL Last Edit by RUMA Watters on 05/20/25 08:30 Results Reviewed Results Reviewed: Laboratory Last Values Urine pH (Auto) 6.0 05/20/25 08:25 Specific [place] (Auto) 1.015 05/20/25 08:25 Urine Protein (Auto) 0 mg/dL 05/20/25 08:25 Glucose (UA)(Auto) 0 mg/dL 05/20/25 08:25 Urine Ketones (Auto) Negative 05/20/25 08:25 Urine Blood (Auto) 0 Elliott/uL 05/20/25 08:25 Urine Nitrite (Auto) Negative 05/20/25 08:25 Urine Bilirubin (Auto) 0 mg/dL 05/20/25 08:25 Urine Urobilinogen (Auto) 0.2 mg/dL 05/20/25 08:25 Leukocyte Esterase (Auto) 0 Antonino/uL 05/20/25 08:25 Date of Service: 04/26/25 Procedure(s): US renal BI FINDINGS: RIGHT KIDNEY: 11 x 5 x 5 cm (SAG x AP x TRV). Volume: 119 cc. Normal echotexture. Renal cortical thickness is normal. No hydronephrosis. 3 mm hyperechoic structure at the corticomedullary junction of the lower pole. No solid or cystic lesion. LEFT KIDNEY: 12 x 5 x 4 cm (SAG x AP x TRV). Volume: 116 cc. Normal echotexture. Renal cortical thickness is normal. No hydronephrosis. No solid or cystic lesion. IMPRESSION: 3 mm nephrolithiasis, right kidney. No hydronephrosis. Assessment & Plan Assessment & Plan (1) Calculus of kidney: Code(s): N20.0 - Calculus of kidney Category: Medical Plan In office urinalysis results with the patient today; as noted above. Most recent renal imaging results with the patient today; as noted above. She currently denies any bothersome urinary issues or concerns. She reports be happy with current voiding parameters. Continue vitamin B6 as discussed and prescribed; refill provided. Will continue with surveillance monitoring. We discussed the importance of adequate hydration relation to nephrolithiasis as well as overall health and well-being. Will obtain renal ultrasound in 6 months. Follow-up in 6 months with imaging; or sooner with any issues, concerns, and or questions. Orders: Orders AMB Urinalysis Automated Today Z13.9 - Encounter for screening, unspecified US renal BI 6 Months N20.0 - Calculus of kidney Patient Instructions: The patient had an opportunity to ask questions regarding the treatment plan. All questions were answered. Physical exam, labs, and imaging were discussed and reviewed in detail. As well as risks, benefits, and discussion of treatment choices. No major barriers to understanding were identified. The patient expressed understanding and agreement with the above treatment plan. The patient was made aware they should contact our office by phone for worsening of their current condition, the appearance of new symptoms, or with any questions or concerns. Compliance is encouraged with any medications and follow up testing that is ordered. It is a privilege to be allowed the opportunity to participate in? your urological care.? Again, if you have any questions or concerns If you have any questions or concerns please do not hesitate to contact me. The office is [phone]. This note is constructed using voice recognition software. While every effort has been made to ensure accuracy warehouse and receiving supervisor errors may have been included. Yours sincerely, AYLEEN Pedro Coding Level of Care Code Est Pt Level 3 (58850) Diagnoses Calculus of kidney N20.0
--- OUTSIDE RECORDS SUMMARY | 2025-05-20 08:27 | XMS_ITS | Clinical Summary ---
Author Organization [facility] Address [address] [place] [address] Phone Care Team Providers Care Tongue Carrier Name Role Phone Jarrod Sherman MD Primary Care Provider [phone] Allergies Active Allergy Reactions Criticality Noted Date [...] Department Care Team Description 04/26/2025 Orders Only [facility] Department of Orthopaedics [address] [place] [address] Juan Grier MD 04/26/2025 Orders Only [facility] Department of Orthopaedics [address] [place] [address] Juan Grier MD Primary osteoarthritis of right knee (Primary Dx) 04/16/2025 2:00 PM EDT Office Visit [facility] Department of Orthopaedics [address] [place] [address] Juan Grier MD Primary localized osteoarthrosis of right lower leg (Primary Dx) 04/16/2025 1:13 PM EDT - 04/16/2025 11:59 PM EDT Hospital Encounter [facility], [place] [address] [place] [address] Juan Grier MD Discharge Disposition: Home or Self Care 04/16/2025 1:10 PM EDT - 04/16/2025 1:11 PM EDT Hospital Encounter [facility] Diagnostic X-ray Imaging, [place] [address] [place] [address] Juan Grier MD Discharge Disposition: Home or Self Care 04/16/2025 Orders Only [facility] Department of Orthopaedics [address] [place] [address] GiancarloeisenNoreenth Pain (Primary Dx) 04/05/2025 Orders Only [facility] Department of Orthopaedics [address] [place] [address] Juan Grier MD Primary osteoarthritis of left [...] Description 06/21/2025 11:20 AM EST Pre-Admission Testing [address] [address] Juan Grier MD [address] [place] [phone] [email or web address] 07/06/2025 Procedure Pass [facility] Peri 6th floor [address] [place] [address] 07/06/2025 7:30 AM EST Hospital Encounter [facility] Peri 6th floor [address] [place] [address] Juan Grier MD [address] [place] [phone] [email or web address] 07/06/2025 7:30 AM EST - 07/06/2025 9:42 AM EST Surgery [facility] floor [address] [place] [address] Juan Grier MD [address] [place] [phone] [email or web address] 08/11/2025 10:40 AM EST Office Visit [facility] Department of [facility]edics [address] [place] [address] Luann Chand PA-C [address] [place] [address] [email or web address] Scheduled Procedures Name Priority Associated [...] 136 - 145 mmol/L 05/06/2025 2:20 PM [facility] Potassium 3.8 3.4 - 5.1 mmol/L 05/06/2025 2:20 PM [facility] Chloride 107 98 - 107 mmol/L 05/06/2025 2:20 PM [facility] CO2 23 20 - 31 mmol/L 05/06/2025 2:20 PM [facility] Anion Gap 11 3 - 17 mmol/L 05/06/2025 2:20 PM [facility] BUN 10 6 - 23 mg/dL 05/06/2025 2:20 PM [facility] Creatinine 0.60 0.50 - 1.00 mg/dL 05/06/2025 2:20 PM [facility] eGFR 120 >59 mL/min/1.7 3m2 05/06/2025 2:20 PM [facility] Comment:Estimated glomerular filtration rate calculated using the CKD-EPI refit equation. Glucose 143(H) 70 - 99 mg/dL 05/06/2025 2:20 PM [facility] Calcium 8.7 8.5 - 10.5 mg/dL 05/06/2025 2:20 PM [facility] AST 12 <33 U/L 05/06/2025 2:20 PM [facility] ALT 10 <34 U/L 05/06/2025 2:20 PM [facility] Alkaline Phosphatase 73 40 - 130 U/L 05/06/2025 2:20 PM [facility] Bilirubin, Total 0.2 0.0 - 1.2 mg/dL 05/06/2025 2:20 PM [facility] Total Protein 6.7 6.4 - 8.3 g/dL 05/06/2025 2:20 PM [facility] Albumin 3.7 3.5 - 5.2 g/dL 05/06/2025 2:20 PM [facility] Globulin 3.0 1.9 - 4.1 g/dL 05/06/2025 2:20 PM [facility] Blood (Blood) Venipuncture / Unknown 05/06/2025 12:22 PM EST 05/06/2025 12:30 PM EST us Juan Grier MD LAB BLOOD BKR ORDERABLES Final R esult [address] [id number] * (ABNORMAL) CBC and Differential (05/06/2025 12:22 PM EST) WBC 6.59 4.00 - 11.00 K/uL 05/06/2025 12:42 PM [facility] RBC 3.80(L) 4.00 - 5.20 M/uL 05/06/2025 12:42 PM [facility] Hemoglobin 10.4(L) 12.0 - 16.0 g/dL 05/06/2025 12:42 PM [facility] Hematocrit 33.2(L) 36.0 - 46.0 % 05/06/2025 12:42 PM [facility] MCV 87.4 80.0 - 100.0 fL 05/06/2025 12:42 PM [facility] MCH 27.4 27.0 - 31.0 pg 05/06/2025 12:42 PM [facility] MCHC 31.3(L) 32.0 - 36.0 g/dL 05/06/2025 12:42 PM [facility] MPV 10.6 8.4 - 12.0 fL 05/06/2025 12:42 PM [facility] RDW-CV 13.6 11.5 - 14.5 % 05/06/2025 12:42 PM [facility] PLT 263 150 - 450 K/uL 05/06/2025 12:42 PM [facility] Neutrophils 63.9 % 05/06/2025 12:42 PM [facility] Lymphocytes 24.4 % 05/06/2025 12:42 PM [facility] Monocytes 8.3 % 05/06/2025 12:42 PM [facility] Eosinophils 2.3 % 05/06/2025 12:42 PM [facility] Basophils 0.9 % 05/06/2025 12:42 PM [facility] Imm Grans 0.2 % 05/06/2025 12:42 PM [facility] NRBC 0.0 <=0.0 /100 WBCs 05/06/2025 12:42 PM [facility] Absolute Neutrophils 4.21 1.92 - 7.60 K/uL 05/06/2025 12:42 PM [facility] Absolute Lymphocytes 1.61 0.72 - 4.10 K/uL 05/06/2025 12:42 PM [facility] Absolute Monocytes 0.55 0.16 - 1.10 K/uL 05/06/2025 12:42 PM [facility] Absolute Eosinophils 0.15 0.00 - 0.50 K/uL 05/06/2025 12:42 PM [facility] Absolute Basophils 0.06 0.00 - 0.15 K/uL 05/06/2025 12:42 PM [facility] Absolute Imm Grans 0.01 0.00 - 0.09 K/uL 05/06/2025 12:42 PM [facility] Absolute NRBC 0.00 <=0.00 K cells/uL 05/06/2025 12:42 PM [facility] Absolute Neutrophils 4.21 1.92 - 7.60 K/uL 05/06/2025 12:42 PM [facility] Comment:Automated cell count . Manual ANC may differ if performed. Diff Type Auto 05/06/2025 12:42 PM [facility] Blood (Blood) Venipuncture / Unknown 05/06/2025 12:22 PM EST 05/06/2025 12:30 PM EST us Juan Grier MD LAB BLOOD BKR ORDERABLES Final R esult Performing Organization Address [facility] Co de Phone Number [address] [address] * (ABNORMAL) 25-OH Vitamin D (05/06/2025 12:22 PM EST) 25-OH Vitamin D, Total 15(L) 20 - 50 ng/mL 05/06/2025 2:33 PM [facility] Comment: Severe deficiency: <10 ng/mL Mild to moderate deficiency: 10-19 ng/mL Optimum levels: 20-50 ng/mL Increased risk of hypercalciuria: 51-80 ng/mL Possible toxicity: >80 ng/mL Blood (Blood) Venipuncture / Unknown 05/06/2025 12:22 PM EST 05/06/2025 12:30 PM EST us Juan Grier MD LAB BLOOD BKR ORDERABLES Final R esult Performing Organization Address [facility]/ZIP Co de Phone Number [address] [address] * PT-INR (05/06/2025 12:22 PM EST) PT 12.9 10.0 - 13.0 sec 05/06/2025 1:07 PM EST [facility] INR 1.0 0.9 - 1.1 05/06/2025 1:07 PM [facility] Comment:Therapeutic Range 2. 0 - 3.5 Blood (Blood) Venipuncture / Unknown 05/06/2025 12:22 PM EST 05/06/2025 12:30 PM EST Juan Grier MD LAB BLOOD BKR ORDERABLES Final R esult Performing Organization Address [facility] Co de Phone Number [address] [address] * Hemoglobin A1c (05/06/2025 12:22 PM EST) Hemoglobin A1c 4.9 4.3 - 5.6 % 05/06/2025 1:29 PM [facility] Calculated Mean Blood Glucose 94 mg/dL 05/06/2025 1:29 PM [facility] Comment:There is no [facility] normal range for the Estimated [...] ORDERABLES Final R esult Performing Organization Address [facility] Co de Phone Number [address] [address] * XR KNEE 4 OR MORE VIEWS [...] Date Diagnosed Date Autogenerated Problem 04/26/2025 Insurance [facility] [place] [address] [place] [address] [place] [address] ACO Care Teams Tongue Carrier Relationship Specialty Start Date End Date Jarrod Sherman MD [address] [place] [address] [place] [address] PCP - General Internal Medicine 02/18/25 Additional Source Comments The information contained in this document represents components of the legal health record. It is not the complete legal health record.[facility]
--- OUTSIDE RECORDS SUMMARY | 2025-05-20 08:27 | XMS_ITS | Encounter Summary ---
Author Organization [facility] Address [email or web address] [place] [address] Phone Care Team Providers Care Gang Rider Name Role Phone Jarrod Sherman MD Primary Care Provider [phone] Encounter Details Date Type Department Care Team (Late st Contact Info) Description 04/16/2025 Orders Only [facility] Department of Orthopaedics [address] [place] [address] Noreen Guerra [address] [place] [address] [email or web address] Pain (Primary Dx) Social History Tobacco [...] Description 06/21/2025 11:20 AM EST Pre-Admission Testing [address] [address] Juan Grier MD [address] [place] [id number] [email or web address] 07/06/2025 Procedure Pass [facility] [address] [place] [address] 07/06/2025 7:30 AM EST Hospital Encounter [facility] Peri 6th floor [address] [place] [address] Juan Grier MD [address] [place] [id number] [email or web address] 07/06/2025 7:30 AM EST - 07/06/2025 9:42 AM EST Surgery [address] [address] Juan Grier MD [address] [place] [phone] [email or web address] 08/11/2025 10:40 AM EST Office Visit [facility] Department of [facility]edics [address] [place] [address] Luann Chand PA-C [address] [place] [phone] [email or web address] Scheduled Procedures Name Priority Associated Diagnoses Date/Ti [...] knee documented in this encounter Care Teams Gang Rider Relationship Specialty Start Date End Date Jarrod Sherman MD [address] [place] [address] [place] [address] PCP - General Internal Medicine 02/18/25 documented as of this encounter Additional Source Comments The information contained in this document represents components of the legal health record. It is not the complete legal health record.[facility]
== END 2025-05-20 10:18 | disposition home or self-care (01) ==
LOC: HO.HUSH 08:15
PROVIDERS: PCP Internal Medicine; Visit Provider Nurse Practitioner Family
DX: Z13.9 Encounter for screening, unspecified (principal); N20.0 Calculus of kidney
CPT/HCPCS: 99213

== ENCOUNTER → 2025-05-20 08:14 | Outpatient (BNVA) | payer OTHER, SELFPAY | PROVIDERS: PCP Internal Medicine; Visit Provider Nurse Practitioner Family | DX: N20.0 Calculus of kidney (principal); Z13.9 Encounter for screening, unspecified | CPT/HCPCS: 81003; 99212 ==

== ENCOUNTER 2025-06-02 08:56 | Outpatient (AMB) | payer OTHER, SELFPAY ==
[2025-06-02 08:59] VITALS: BP 140/82; PULSE 75; O2SAT 100; BMI 37.2
--- NOTE | 2025-06-02 08:59 | A.OFFVIS_ITS ---
Vital Signs 06/02/25 08:59 Height 5 ft 1 in Weight 197 lb BMI 37.2 BP 140/82 H Blood Pressure Location Rt brachial Position Sitting Pulse 75 Pulse Source Pulse Oximeter Pulse Oximetry (%) 100 Oxygen Delivery Method Room Air Intake Visit Reasons: Asthma Allergies amoxicillin (AMOXICILLIN) Allergy (Intermediate, Verified 06/02/25 09:02) NAUSEA & VOMITING, stomach pain, vomiting, stomach upset topiramate (From TOPAMAX) Allergy (Intermediate, Verified 06/02/25 09:02) TREMORS, nausea and vomiting latex (LATEX) Allergy (Mild, Verified 06/02/25 09:02) RASH medroxyprogesterone (From PROVERA) Allergy (Mild, Verified 06/02/25 09:02) RASH lactose Allergy (Verified 06/02/25 09:02) bloating , diarrhea HPI HPI Asthma: Details: Gabriella is a pleasant 34 year-old female, never tobacco smoker, with underlying asthma COPD overlap syndrome, JOSE under the care of hematology through [facility], rheumatoid arthritis and fibromyalgia, under the care of rheumatology. Today she presents for follow-up of asthma with increased symptoms including dyspnea, wheezing, and productive cough. She reports feeling like she's breathing harder than normal, experiencing wheezing at night yesterday, and has an intermittent cough productive of brown sputum. Despite using her albuterol MDI and Symbicort, she feels she cannot breathe. Spiriva was prescribed in November but was not obtained, possibly due to insurance coverage issues, not clear as she previously reported taking this. The patient continues to smoke marijuana, which she believes causes her brown sputum. She has a history of hypertension and had an episode of high blood pressure after trying THC gummies as a smoking cessation aid, and she is reluctant to try them again. COUNTS INCLUDE 234 BEDS AT THE [facility] Medical History Primary osteoarthritis of right knee control counseling COPD (chronic obstructive pulmonary disease) Gastritis Depression Cholelithiasis with chronic cholecystitis Biliary dyskinesia Vitamin D deficiency Eczema Crushing injury of third toe of right foot Bilateral primary osteoarthritis of hip Obesity (BMI 30-39.9) Anxiety Benign essential hypertension Gallstones Tension headache Post depression BMI 39.0-39.9,adult Trigger finger of left thumb Trigger finger of right thumb Insomnia Morbid obesity with BMI of 40.0-44.9, adult Smoker Carpal tunnel syndrome, bilateral Personal history of gestational diabetes PCOS (polycystic ovarian syndrome) Migraines Vulvar cyst Hyperlipemia Fibromyalgia Rheumatoid arthritis Surgical History S/P laparoscopic cholecystectomy (03/06/23) H/O tubal ligation History of hip replacement, total History of esophagogastroduodenoscopy (EGD) History of removal of cyst History of tonsillectomy and adenoidectomy Family History Father Medical history unknown Mother Diabetes Hypertension Maternal Aunt Breast cancer Ovarian cancer Mental health disorder Maternal Grandmother Diabetes Hypertension Social History Household Members: Significant Other and Children Housing: House Alcohol intake: current Alcohol intake frequency: holidays/special occasions only Patient Tobacco Use Status: Former Tobacco user Tobacco use type: Cigarette e-Cigarette/Vaping Use: Never Used Second Hand Smoke Exposure: No Substance Use Type: Marijuana service: No Current occupational status: disabled Sexual orientation: Straight/Heterosexual Gender identity: Female Cognitive needs: No Hearing needs: No Vision needs: Yes (Glasses) Female Reproductive History Menstrual Age of Menarche: 8 Review of Systems Const Denies chills, Denies excessive sweating, Denies fever(s), Denies headache(s) and Denies night sweats Eyes Denies dry eyes, Denies irritation and Denies itchy eyes ENT Reports Normal hearing present, Denies headache(s), Denies nasal congestion, Denies nasal discharge, Denies post nasal drip and Denies sore throat Card Denies chest pain, Denies chest pain at rest, Denies chest pain with activity, Denies claudication, Denies leg edema, Denies orthopnea and Denies paroxysmal nocturnal dyspnea Resp Denies excessive phlegm production, Denies pain on inspiration, Denies pain with cough and Denies stridor Musc Denies myalgias Neuro Reports Normal hearing present and Denies headache(s) Endo Denies excessive sweating Teddy/Lymph Denies lymphadenopathy Aller/Immun Denies itchy eyes and Denies seasonal rhinorrhea Physical Exam Vital Signs: Last Vital Signs Pulse 75 06/02/25 08:59 BP 140/82 H 06/02/25 08:59 Pulse Ox 100 06/02/25 08:59 Oxygen Delivery Method Room Air 06/02/25 08:59 BMI result Body Mass Index 37.2 Const General: cooperative, healthy appearing, comfortable, no acute distress, well developed and alert Nutritional Appearance: obese Orientation/consciousness: patient oriented x3 Limitations: no limitations HEENT Head: Yes normal to inspection, Yes normocephalic and Yes atraumatic Ears: hearing grossly normal bilaterally and external ears normal Eyes General: appearance normal, both eyes and all related structures Eyelids: Yes eyelids normal Sclerae: sclerae normal EOM: EOMs intact bilaterally Neck Neck: Yes normal visual inspection and Yes no lymphadenopathy Lymphatic: no lymphadenopathy noted Chest Chest palpation & inspection: normal inspection of the chest Resp Effort & Inspection: normal respiratory effort, able to speak in complete sentences, no audible wheezes, Actively coughing, no stridor, not tachypneic, no tripod positioning, no use of accessory muscles and prolonged expiratory phase Auscultation: diminished lung sounds Cardio Jugular venous distension: no JVD Rate: regular rate Rhythm: regular rhythm Skin Other: warm, dry General skin exam: no rashes or lesions noted Neuro General: patient oriented x3 Cranial nerves: Yes Normal hearing present Cognition (Neuro): normal cognition Gait exam (Neuro): Normal gait present Extrem General: Yes normal to inspection, Yes capillary refill normal, Yes no clubbing, cyanosis or edema and Yes no pedal edema Psych Appearance: grossly normal and well kempt Speech and movement: Normal speech and movement present and Clear speech present Affect: normal affect Attitude: cooperative Thought process: Normal thought process present Thought content: Normal thought content present Insight: Good insight present (Psych) Judgement: Good judgement present (Psych) Assessment & Plan Assessment & Plan (1) Asthma-COPD overlap syndrome: Code(s): J44.89 - Other specified chronic obstructive pulmonary disease Category: Medical Plan Will treat current exacerbation with prednisone and doxycycline. Reinforced that ongoing smoking likely contributing to nflammation, and will lead to a greater need for medications like prednisone. Regarding her inhaler regimen, will send DuoNeb to use twice daily for a few days. Will also resend Spiriva and instructed her to call us if her insurance will not cover it, in addition to Symbicort. We discussed that her hoarseness could be a side effect from the Symbicort, and recommended gargling with salt water after use. Provided strict return precautions, advising her to go to the emergency room if her breathing gets worse and to call the office if she does not improve. All questions were answered and patient is in agreement of plan. Will follow up in 3 months or sooner if needed. Medications: New prednisone 40 mg (2 x 20 mg) PO DAILY 10 tabs 0RF ipratropium-albuterol 0.5 mg-3 mg(2.5 mg base)/3 mL 3 mL inhalation Q6H PRN 180 mL 0RF wheezing doxycycline hyclate 100 mg PO BID 14 caps 0RF Refilled tiotropium bromide 2.5 mcg/actuation (Spiriva Respimat) 2 puffs inhalation DAILY 4 grams 3RF Coding Level of Care Code Est Pt Level 4 (43424) Diagnoses Asthma-COPD overlap syndrome J44.89
--- OUTSIDE RECORDS SUMMARY | 2025-06-02 09:37 | XMS_ITS | Clinical Summary ---
Author Organization [facility] Address [address] [place] [address] Phone Care Team Providers Care Tests Superintendent Name Role Phone Jarrod Sherman MD Primary Care Provider [phone] Allergies Active Allergy Reactions Criticality Noted Date [...] Department Care Team Description 04/26/2025 Orders Only [facility] [address] [place] [address] Juan Grier MD 04/26/2025 Orders Only [facility] [address] [place] [address] Juan Grier MD Primary osteoarthritis of right knee (Primary Dx) 04/16/2025 2:00 PM EDT Office Visit [facility] [address] [place] [address] Juan Grier MD Primary localized osteoarthrosis of right lower leg (Primary Dx) 04/16/2025 1:13 PM EDT - 04/16/2025 11:59 PM EDT Hospital Encounter [facility] Diagnostic X-ray Imaging, [place] [address] [place] [address] Juan Grier MD Discharge Disposition: Home or Self Care 04/16/2025 1:10 PM EDT - 04/16/2025 1:11 PM EDT Hospital Encounter [facility] Diagnostic X-ray Imaging, [place] [address] [place] [address] Juan Grier MD Discharge Disposition: Home or Self Care 04/16/2025 Orders Only [facility] [address] [place] [address] GiancarloeloyNoreen price Leatha Pain (Primary Dx) 04/05/2025 Orders Only [facility] [address] [place] [address] Juan Grier MD Primary osteoarthritis of left [...] Description 06/21/2025 11:20 AM EST Pre-Admission Testing [address] [address] Juan Grier MD [address] [place] [id number] [email or web address] 07/06/2025 Procedure Pass [facility] Periop 6th floor [address] [place] [phone] 07/06/2025 7:30 AM EST Hospital Encounter [facility] Periop 6th floor [address] [place] [phone] Juan Grier MD [address] [place] [phone] [email or web address] 07/06/2025 7:30 AM EST - 07/06/2025 9:42 AM EST Surgery [facility] Periop 6th floor [address] [place] [address] Juan Grier MD [address] [place] [phone] [email or web address] KNEE 08/11/2025 10:40 AM EST [facility] Visit [facility] [address] [place] [address] Luann Chand PA-C [address] [place] [address] [email or web address] Scheduled Procedures Name Priority Associated Diagnoses [...] ed Goal Care Plan Autogenerated Problem No [place], [employer] Not on file Procedures Procedure [...] 136 - 145 mmol/L 05/06/2025 2:20 PM [facility] Potassium 3.8 3.4 - 5.1 mmol/L 05/06/2025 2:20 PM [facility] Chloride 107 98 - 107 mmol/L 05/06/2025 2:20 PM [facility] CO2 23 20 - 31 mmol/L 05/06/2025 2:20 PM [facility] Anion Gap 11 3 - 17 mmol/L 05/06/2025 2:20 PM [facility] BUN 10 6 - 23 mg/dL 05/06/2025 2:20 PM [facility] Creatinine 0.60 0.50 - 1.00 mg/dL 05/06/2025 2:20 PM [facility] eGFR 120 >59 mL/min/1.7 3m2 05/06/2025 2:20 PM [facility] Comment:Estimated glomerular filtration rate calculated using the CKD-EPI refit equation. Glucose 143(H) 70 - 99 mg/dL 05/06/2025 2:20 PM [facility] Calcium 8.7 8.5 - 10.5 mg/dL 05/06/2025 2:20 PM [facility] AST 12 <33 U/L 05/06/2025 2:20 PM [facility] ALT 10 <34 U/L 05/06/2025 2:20 PM [facility] Alkaline Phosphatase 73 40 - 130 U/L 05/06/2025 2:20 PM [facility] Bilirubin, Total 0.2 0.0 - 1.2 mg/dL 05/06/2025 2:20 PM [facility] Total Protein 6.7 6.4 - 8.3 g/dL 05/06/2025 2:20 PM [facility] Albumin 3.7 3.5 - 5.2 g/dL 05/06/2025 2:20 PM [facility] Globulin 3.0 1.9 - 4.1 g/dL 05/06/2025 2:20 PM [facility] Blood (Blood) Venipuncture / Unknown 05/06/2025 12:22 PM EST 05/06/2025 12:30 PM EST us Juan Grier MD LAB BLOOD BKR ORDERABLES Final R esult [address] [address] * (ABNORMAL) CBC and Differential (05/06/2025 12:22 PM EST) WBC 6.59 4.00 - 11.00 K/uL 05/06/2025 12:42 PM [facility] RBC 3.80(L) 4.00 - 5.20 M/uL 05/06/2025 12:42 PM [facility] Hemoglobin 10.4(L) 12.0 - 16.0 g/dL 05/06/2025 12:42 PM [facility] Hematocrit 33.2(L) 36.0 - 46.0 % 05/06/2025 12:42 PM [facility] MCV 87.4 80.0 - 100.0 fL 05/06/2025 12:42 PM [facility] MCH 27.4 27.0 - 31.0 pg 05/06/2025 12:42 PM [facility] MCHC 31.3(L) 32.0 - 36.0 g/dL 05/06/2025 12:42 PM [facility] MPV 10.6 8.4 - 12.0 fL 05/06/2025 12:42 PM [facility] RDW-CV 13.6 11.5 - 14.5 % 05/06/2025 12:42 PM [facility] PLT 263 150 - 450 K/uL 05/06/2025 12:42 PM [facility] Neutrophils 63.9 % 05/06/2025 12:42 PM [facility] Lymphocytes 24.4 % 05/06/2025 12:42 PM [facility] Monocytes 8.3 % 05/06/2025 12:42 PM [facility] Eosinophils 2.3 % 05/06/2025 12:42 PM [facility] Basophils 0.9 % 05/06/2025 12:42 PM [facility] Imm Grans 0.2 % 05/06/2025 12:42 PM [facility] NRBC 0.0 <=0.0 /100 WBCs 05/06/2025 12:42 PM [facility] Absolute Neutrophils 4.21 1.92 - 7.60 K/uL 05/06/2025 12:42 PM [facility] Absolute Lymphocytes 1.61 0.72 - 4.10 K/uL 05/06/2025 12:42 PM [facility] Absolute Monocytes 0.55 0.16 - 1.10 K/uL 05/06/2025 12:42 PM [facility] Absolute Eosinophils 0.15 0.00 - 0.50 K/uL 05/06/2025 12:42 PM [facility] Absolute Basophils 0.06 0.00 - 0.15 K/uL 05/06/2025 12:42 PM [facility] Absolute Imm Grans 0.01 0.00 - 0.09 K/uL 05/06/2025 12:42 PM [facility] Absolute NRBC 0.00 <=0.00 K cells/uL 05/06/2025 12:42 PM [facility] Absolute Neutrophils 4.21 1.92 - 7.60 K/uL 05/06/2025 12:42 PM [facility] Comment:Automated cell count . Manual ANC may differ if performed. Diff Type Auto 05/06/2025 12:42 PM [facility] Blood (Blood) Venipuncture / Unknown 05/06/2025 12:22 PM EST 05/06/2025 12:30 PM EST us Juan Grier MD LAB BLOOD BKR ORDERABLES Final R esult Performing Organization Address [facility] Co de Phone Number [address] [address] * (ABNORMAL) 25-OH Vitamin D (05/06/2025 12:22 PM EST) 25-OH Vitamin D, Total 15(L) 20 - 50 ng/mL 05/06/2025 2:33 PM [facility] Comment: Severe deficiency: <10 ng/mL Mild to moderate deficiency: 10-19 ng/mL Optimum levels: 20-50 ng/mL Increased risk of hypercalciuria: 51-80 ng/mL Possible toxicity: >80 ng/mL Blood (Blood) Venipuncture / Unknown 05/06/2025 12:22 PM EST 05/06/2025 12:30 PM EST us Juan Grier MD LAB BLOOD BKR ORDERABLES Final R esult Performing Organization Address City/[facility]/ZIP Co de Phone Number [address] [address] * PT-INR (05/06/2025 12:22 PM EST) PT 12.9 10.0 - 13.0 sec 05/06/2025 1:07 PM [facility] INR 1.0 0.9 - 1.1 05/06/2025 1:07 PM [facility] Comment:Therapeutic Range 2. 0 - 3.5 Blood (Blood) Venipuncture / Unknown 05/06/2025 12:22 PM EST 05/06/2025 12:30 PM EST Juan Grier MD LAB BLOOD BKR ORDERABLES Final R esult Performing Organization Address [facility] Co de Phone Number [address] [address] * Hemoglobin A1c (05/06/2025 12:22 PM EST) Hemoglobin A1c 4.9 4.3 - 5.6 % 05/06/2025 1:29 PM [facility] Calculated Mean Blood Glucose 94 mg/dL 05/06/2025 1:29 PM [facility] Comment:There is no [facility] normal range for the Estimated Average Glucose [...] ORDERABLES Final R esult Performing Organization Address [facility] Co de Phone Number [address] [address] * XR KNEE 4 OR MORE VIEWS [...] right side. Degenerative changes of bothknees. Juan NAVARROG XR LOWER EXTREMITY Final Res ult * [...] Diagnosed Date Autogenerated Problem 04/26/2025 Insurance [facility] [place] [address] [place] [address] [place] [address] [place] [address] [place] [address] [place] [address] ACO Care Teams Tests Superintendent Relationship Specialty Start Date End Date Jarrod Sherman MD [address] [place] [address] [place] [address] PCP - General Internal Medicine 02/18/25 Additional Source Comments The information contained in this document represents components of the legal health record. It is not the complete legal health record.[facility]
== END 2025-06-02 09:20 | disposition home or self-care (01) ==
LOC: HO.HPSW 08:58
PROVIDERS: PCP Internal Medicine; Visit Provider Nurse Practitioner Family
DX: J44.89 Other specified chronic obstructive pulmonary disease (principal)
CPT/HCPCS: 99214

== ENCOUNTER → 2025-06-02 08:56 | Outpatient (BNVA) | payer OTHER, SELFPAY | PROVIDERS: PCP Internal Medicine; Visit Provider Nurse Practitioner Family | DX: J44.89 Other specified chronic obstructive pulmonary disease (principal); Z87.891 Personal history of nicotine dependence | CPT/HCPCS: 99212 ==

== ENCOUNTER 2025-06-15 23:17 | Emergency (ER) | payer OTHER, SELFPAY ==
--- OUTSIDE RECORDS SUMMARY | 2025-06-11 23:59 | XMS_ITS | Continuity of Care Document ---
Author Organization [facility] [employer] Address [address] [place] [address], [address] [address]- Care Team Providers Care Auto Dealership Porter Name Role Phone Jarrod Sherman MD Primary [facility] Phys[id number] Date(s): 06/04/25 - 06/11/25 [facility] [employer] [address], [address] [place] [address]- Attending Physician: Irene Saenz MD Referring Physician: Jarrod Sherman MD Encounter Type: Office Visit Allergies, Adverse Reactions, Alerts Substance Criticality Severity Reaction Reaction Severity Status amoxicillin Rash Active Lactose Not available Active Feraheme 1 chest pressure, lightheaded Active topiramate Swelling of throat Active Provera Bleeding Active Latex Skin rash Active 1Chest pressure, lightheaded, scratchy throat Immunizations Given and Recorded Vaccine Date Status Refusal Reason Human Papillomavirus Vaccine 04/08/25 Given Human Papillomavirus Vaccine 11/04/15 Recorded Human Papillomavirus Vaccine 05/16/15 Recorded tetanus/diphtheria/pertussis, acel(Tdap) 10/27/20 Given tetanus/diphtheria/pertussis, acel(Tdap) 10/09/19 Given Measles/Mumps/Rubella Virus Vaccine 10/22/19 Given Medications Advair HFA 115 mcg / 21 mcg [...] Refills, Soft Stop, 12/29/24 8:56:00 AM EDT, [facility]/pharmacy #[id number], Partial fill upon patient request if the prescription is for a schedule II opioid drug., 154,cm, 12/22/24 10:42:00 EDT, Height, 93.2, kg, 11/17/24 10:44:00 EDT, Dry Weight Start Date: 12/29/24 Status: Ordered Medication Dispense Status: Completed Quantity: 1.0 Unit: kit Total Allowed Fills: 1 Fills Dispensed: 0 fluconazole 150 mg oral tablet 1 tablet = 150 mg, By Mouth, Once, repeat dose if still having symptoms in 72 hours, # 1 tablet, 1 Refills, Soft Stop, 06/09/25 10:25:00 AM EST, Tablet, [facility]/pharmacy #[id number], Partial fill upon patient request if the prescription is for a schedule II opioid drug., 154, cm, 06/09/25 10:08:00 EST, Height, 87.7, kg, 06/04/25 11:00:00 EST, Dry Weight Start Date: 06/09/25 Status: Ordered Medication Dispense Status: Completed Quantity: 1.0 Unit: tablet Total Allowed Fills: 2 Fills Dispensed: 0 hydrOXYzine hydrochloride 25 mg oral tablet 30 each, 0 Refill(s), TAKE 1 TABLET BY MOUTH EVERY DAY FOR ANXIETY, 0 Refills, 12/22/24 10:10:00 AM EDT, Partial fill upon patient request if the prescription is for a schedule II opioid drug. Start Date: 12/22/24 Status: Ordered Medication Dispense Status: Completed Total Allowed Fills: 1 Fills Dispensed: 0 ibuprofen 600 mg oral tablet 600 mg, 1, tablet, By Mouth, Every 6 hours, # 30 tablet, Refills 0, Tot. Refills 0, Maintenance, 05/18/25 11:12:00 AM EST, Route to Pharmacy Electronically, [facility]/pharmacy #[id number], Partial fill upon patient request if the prescription is for a schedule II opioid drug., 154, cm, 04/08/25 10:30:00 EDT, Height, 90.5, kg, 05/18/25 8:45:00 EST, Dry Weight Start Date: 05/18/25 Status: Ordered Medication Dispense Status: Completed Quantity: 30.0 Unit: tablet Total Allowed Fills: 1 Fills Dispensed: 0 [...] Total Allowed Fills: 1 Fills Dispensed: 0 nystatin-triamcinolone topical 150038 u/gm-0.1% cream 1 applicator, Topically, 2 times a day, PRN Itch, for 14 days, # 60 Gm, 0 Refills, Acute 06/23/25 10:25:00 AM EST, 06/09/25 10:25:00 AM EST, [facility]/pharmacy #[id number], Partial fill upon patient request if theprescription is for a schedule II opioid drug., 1 applicator Topically 2 times a day,x14 days,PRN:Itch, 154, cm, 06/09/25 10:08:00 EST, Height, 87.7, kg, 06/04/25 11:00:00 EST, Dry Weight Start Date: 06/09/25 Stop Date: 06/23/25 Status: Ordered Medication Dispense Status: Completed Quantity: 60.0 Unit: g Total Allowed Fills: 1 Fills Dispensed: 0 [...] Total Allowed Fills: 1 Fills Dispensed: 0 Tylenol Extra Strength 500 mg oral tablet 2 tablet = 1,000 mg, By Mouth, Every 6 hours, PRN as needed for pain, # 50 tablet, 1 Refills, Acute06/16/25 11:13:00 AM EST, 05/18/25 11:13:00 AM EST, Tablet, [facility]/pharmacy #[id number], Partial fill upon patient request if the prescription is for a schedule II opioid drug., 154, cm, 04/08/25 10:30:00 EDT, Height, 90.5, kg, 05/18/25 8:45:00 EST, Dry Weight Start Date: 05/18/25 Stop Date: 06/16/25 Status: Ordered Medication Dispense Status: Completed Quantity: 50.0 Unit: tablet Total Allowed Fills: 2 Fills Dispensed: 0 Problem List Condition Confirmation Course Effective Dates Status Health St atus Informant Anemia Confirmed Active Anxiety 1 Confirmed Active Arthritis Confirmed Active Bipolar disorder Confirmed Active COPD (chronic obstructive pulmonary disease) Confirmed Active Depression Confirmed Active Fibromyalgia Confirmed [...] recent to oldest [Reference Range]: 1 Height 154 cm (06/04/25 11:00 AM) Weight 87.7 kg (06/04/25 11:00 AM) Body Mass Index [18.5-24.99 kg/m2] 36.98 kg/m2 *H* (06/04/25 11:00 AM) Dry Weight 87.7 kg (06/04/25 11:00 AM) Weight Obtained Via Standing scale (06/04/25 11:00 AM) Dry Weight Obtained Via Standing scale (06/04/25 11:00 AM) Social History Social History Type Response Smoking Status Former smoker, quit more than 30 days ago entered on: 08/04/20 Sexual Orientation Self described orien tation: ; Bisexual Sex Sex Representation Female (finding) Patient Care team information Care Team Personnel Name: Jarrod Sherman MD Position: Reference Physician Member Role: PCP Address: [address] [place] [address] Telecom: Name: Denise Hurt RN Position: [facility] RN Member Role: Primary Care Nurse Name: Katie Berger RN Position: [facility] RN Member Role: Primary Care Nurse Name: John Gtz RN Position: [facility] RN Member Role: Primary Care Nurse Name: Sugar Powell RN Position: [facility] RN Member Role: Primary Care Nurse Name: Arlene Vazquez RN Position: [facility] Nurse Member Role: Primary Care Nurse Care Team Related Persons Name: MANJINDER SAHU Name: JOSE SAHU Name: DENNISE MCCLAIN Insurance Providers Guarantor name: [facility] Information #: 1 Payer: [employer] Payer Identifier: NA Member Number: [id number] Group Number: NA Subscriber Identifier: [id number] Relationship to Subscriber: self Coverage Type: NA Coverage Verification Date: NA Telecom: NA Address: NA
--- OUTSIDE RECORDS SUMMARY | 2025-06-13 23:59 | XMS_ITS | Continuity of Care Document ---
Author Organization [facility] [employer] Address [address] [place] [address], [address] [address]- Care Team Providers Care Assistant Community Manager Name Role Phone Jarrod Sherman MD Primary Care Physician Encounter [facility] Date(s): 05/14/25 - 06/13/25 [facility] [employer] [facility] [address] [place] [address], [address] [place], [place] [address] Encounter Type: Triage Allergies, Adverse Reactions, Alerts Substance Criticality Severity Reaction Reaction Severity Status amoxicillin Rash Active topiramate Swelling of throat Active Provera Bleeding Active Latex Skin rash Active Lactose Not available Active Feraheme 1 chest pressure, lightheaded Active 1Chest pressure, lightheaded, scratchy throat Immunizations [...] Refills, Soft Stop, 12/29/24 8:56:00 AM EDT, [facility]/pharmacy #[id number], Partial [...] Soft Stop, 06/09/25 10:25:00 AM EST, Tablet, [facility]/pharmacy #[id number], [...] 11:12:00 AM EST, Route to Pharmacy Electronically, [facility]/pharmacy #[id number], Partial [...] Fills: 1 Fills Dispensed: 0 nystatin-triamcinolone topical 255404 u/gm-0.1% cream 1 applicator, Topically, 2 times a day, PRN Itch, for 14 days, # 60 Gm, 0 Refills, Acute 06/23/25 10:25:00 AM EST, 06/09/25 10:25:00 AM EST, [facility]/pharmacy #[id number], Partial [...] AM EST, 05/18/25 11:13:00 AM EST, Tablet, [facility]/pharmacy #[id number], [...] information Care Team Personnel Name: Lane GAMBOA, Jarord Oneil Position: Reference Physician Member Role: PCP Address: [address] [place] [address] [address] [place], [place] [address] Telecom: Name: Denise Hurt RN Position: [facility] RN Member Role: Primary Care Nurse Name: Katie Berger RN Position: [facility] RN Member Role: Primary Care Nurse Name: John Gtz RN Position: [facility] RN Member Role: Primary Care Nurse Name: Sugar Powell RN Position: [facility] RN Member Role: Primary Care Nurse Name: Arlene Vazquez RN Position: [facility] SATHISH Nurse Member Role: Primary Care Nurse Care Team Related Persons Name: MANJINDER SAHU Name: JOSE SAHU Name: DENNISE MCCLAIN Insurance Providers Guarantor name: LANIE [facility] Plan Information #: 1 Payer: [employer] Payer Identifier: BRYCE Member Number: [id number] Group Number: [id number] Subscriber Identifier: NA Relationship to Subscriber: self Coverage Type: NA Coverage Verification Date: NA Telecom: Address:
--- NOTE | ~2025-06-15 | CT_ITS ---
CLINICAL HISTORY: R flank pain, hx kidney stones CT abdomen and pelvis without contrast Comparison: CT/SR - ABDOMEN ABD_PEL_WITHOUT (ADULT) - 12/21/24 17:[address]/REG/SR - CT ABDOMEN PELVIS WO IV CON - 12/12/24 18:06 EDT Findings: The lung bases are clear. The gallbladder is absent. The liver, spleen, adrenal glands and pancreas are unremarkable. There is a 2 mm calculus of the right kidney. No obstructive uropathy. The bladder is obscured by artifact from the hip prostheses. Left adnexal cyst, slightly increased, measuring up to 2.5 cm. Trace free fluid in the cul-de-sac. The uterus is unremarkable. Normal appendix. No bowel obstruction or free air. No pneumatosis. Richar mesentery with several subcentimeter lymph nodes. No acute osseous finding. Impression: Similar to prior, there is a nonobstructing 2 mm right renal calculus. Similar-appearing richar mesentery with subcentimeter lymph nodes. 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 Normal appendix. Slightly increased left adnexal cyst and trace free fluid in the pelvis. This document has been electronically signed by: Lang Brooks MD on 06/16/2025 04:55:13
[2025-06-15 23:24] VITALS: BP 146/73; PULSE 75; RESP 20; TEMP 36.1; O2SAT 99; BMI 36.5
--- NOTE | 2025-06-15 23:27 | ED.GENADULT ---
HPI - General Adult General Chief complaint: Abdominal Pain Stated complaint: kidney stones? Time Seen by Provider: 06/16/25 02:37 Source: patient Mode of arrival: ambulatory Limitations: no limitations History of Present Illness ED Provider: Dr. Judith Reynaga HPI narrative: Patient comes to the emergency room complaining of right-sided flank pain. Patient states that she has history of kidney stones. Patient denies hematuria, states that she is not menstruating. Patient complaining of nausea, no vomiting or diarrhea. Related Data Home Medications ?Medication ?Instructions ?Recorded ?Confirmed sertraline 100 mg tablet 100 mg PO DAILY 08/22/20 03/02/25 lorazepam 1 mg tablet 1 mg PO DAILY PRN Anxiety 12/29/23 03/02/25 diclofenac sodium 1 % topical gel topical 09/01/24 03/02/25 meloxicam 15 mg tablet mg PO DAILY PRN 09/01/24 03/02/25 epinephrine 0.3 mg/0.3 mL 0.3 mg IM Q10M PRN 01/01/25 03/02/25 injection, auto-injector (EpiPen) bupropion HCl 75 mg tablet 75 mg PO DAILY 02/26/25 03/02/25 metoclopramide HCl 5 mg tablet 5 mg PO QID 02/26/25 03/02/25 (Reglan) Previous Rx's ?Medication ?Instructions ?Recorded lancets 28 gauge (FreeStyle #100 ea 06/27/20 Lancets) BEDSIDE COMMODE #1 ea 05/14/22 FRONT-WHEELED WALKER #1 ea 05/14/22 TUB SEAT with BACK #1 ea 05/14/22 nebulizers (Compact Compressor #1 ea 02/28/23 Nebulizer) hydrocortisone 2.5 % topical 1 appl topical BID-TID PRN itching 09/17/24 ointment #454 grams albuterol sulfate 2.5 mg/3 mL 2.5 mg (3 mL) inhalation Q6H PRN 10/14/24 (0.083 %) solution for nebulization Shortness Of Breath Or Wheezing #180 mL labetalol 100 mg tablet 100 mg PO BID 90 days #180 tabs 11/26/24 budesonide-formoterol HFA 160 2 puff inhalation Q12H #1 ea 12/02/24 mcg-4.5 mcg/actuation aerosol inhaler (Symbicort) hydroxyzine HCl 25 mg tablet 25 mg PO DAILY for anxiety #90 tabs 12/27/24 albuterol sulfate 90 mcg/actuation 2 puff inhalation Q6H PRN 02/24/25 aerosol inhaler (Ventolin HFA) shortness of breath or wheezing #1 ea cetirizine 10 mg tablet (Zyrtec) 10 mg PO DAILY PRN allergy 02/24/25 symptoms #30 tabs bisacodyl 5 mg tablet,delayed 10 mg (2 x 5 mg) PO BEDTIME 30 02/26/25 release (Dulcolax (bisacodyl)) days #60 tabs dexlansoprazole 60 mg 60 mg PO DAILY 90 days #90 caps 02/26/25 capsule,biphase delayed release (Dexilant) ibuprofen 600 mg tablet 600 mg PO BID pain #60 tabs 02/26/25 linaclotide 290 mcg capsule 290 mcg PO DAILY #30 caps 02/26/25 (Linzess) lauitr-nphdvthh-uxgffkl 2 cap PO BID #120 caps 02/26/25 (pork)36,000-114,000-180k unit capsule,del rel (Creon) pyridoxine (vitamin B6) 100 mg 100 mg PO DAILY 90 days #90 tabs 05/20/25 tablet doxycycline hyclate 100 mg capsule 100 mg PO BID #14 caps 06/02/25 ipratropium 0.5 mg-albuterol 3 mg 3 ml inhalation Q6H PRN wheezing 06/02/25 (2.5 mg base)/3 mL nebulization #180 mL soln prednisone 20 mg tablet 40 mg (2 x 20 mg) PO DAILY #10 tabs 06/02/25 tiotropium bromide 2.5 2 puff inhalation DAILY #4 grams 06/02/25 mcg/actuation mist for inhalation (Spiriva Respimat) methocarbamol 500 mg tablet 500 mg PO TID PRN muscle spasm #30 06/08/25 tabs ketorolac 10 mg tablet 10 mg PO Q8H #10 tabs 06/16/25 ketorolac 10 mg tablet 10 mg PO TID PRN pain #10 tabs 06/16/25 ondansetron 4 mg disintegrating 4 mg PO Q8H PRN nausea and 06/16/25 tablet vomiting #10 tabs Allergies Allergy/AdvReac Type Severity Reaction Status Date / Time amoxicillin (AMOXICILLIN) Allergy Intermediate NAUSEA & Verified 06/15/25 23:28 VOMITING, stomach pain, vomiting, stomach upset topiramate (From TOPAMAX) Allergy Intermediate TREMORS, Verified 06/15/25 23:28 nausea and vomiting latex (LATEX) Allergy Mild RASH Verified 06/15/25 23:28 medroxyprogesterone (From Allergy Mild RASH Verified 06/15/25 23:28 PROVERA) lactose Allergy bloating , Verified 06/15/25 23:28 diarrhea Review of Systems Review of Systems: Constitutional : No Weight loss, No Fever, No Chills, No Night Sweats, No Fatigue, No Malaise ENT/Mouth : No Hearing loss, No Ear Pain, No Nasal Congestion, No Sinus Pain, No Hoarseness, No sore throat, No Rhinorrhea, No Swallowing Difficulty Eyes: No Eye Pain, No Swelling, No Redness, No Foreign Body, No Discharge, No Vision Changes Cardiovascular : No Chest Pain, No SOB, No Dyspnea on Exertion, No Orthopnea, No Edema, No Palpitations Respiratory : No Cough, No Sputum, No Wheezing, No Smoke Exposure, No Dyspnea Gastrointestinal : No Nausea, No Vomiting, No Diarrhea, No Constipation, No abdominal Pain, No Hematochezia, No Melena Genitourinary : no irregular bleeding, No Dysuria, No Urinary Frequency, No Hematuria, No Urinary Incontinence, No Urgency, complaining of right-sided Flank Pain, No Urinary Flow Changes, No Hesitancy Musculoskeletal : No joint pain, No Myalgias, No Joint Swelling Skin : No Skin Lesions, No rash Neuro : No Weakness, No Numbness, No Paresthesias, No Loss of Consciousness, No Dizziness, No Headache Psych : No Anxiety/Panic, No Depression, No SI/HI/AH/VH, No Social Issues, Heme/Lymph: No Bruising, No Bleeding,No Lymphadenopathy Endocrine : No Polyuria, No Polydipsia, No Temperature Intolerance [facility] Past Medical History Medical History Primary osteoarthritis of right knee control counseling COPD (chronic obstructive pulmonary disease) Gastritis Depression Cholelithiasis with chronic cholecystitis Biliary dyskinesia Vitamin D deficiency Eczema Crushing injury of third toe of right foot Bilateral primary osteoarthritis of hip Obesity (BMI 30-39.9) Anxiety Benign essential hypertension Gallstones Tension headache Post depression BMI 39.0-39.9,adult Trigger finger of left thumb Trigger finger of right thumb Insomnia Morbid obesity with BMI of 40.0-44.9, adult Smoker Carpal tunnel syndrome, bilateral Personal history of gestational diabetes PCOS (polycystic ovarian syndrome) Migraines Vulvar cyst Hyperlipemia Fibromyalgia Rheumatoid arthritis Surgical History S/P laparoscopic cholecystectomy (03/06/23) H/O tubal ligation History of hip replacement, total History of esophagogastroduodenoscopy (EGD) History of removal of cyst History of tonsillectomy and adenoidectomy Family History Family History Father Medical history unknown Mother Diabetes Hypertension Maternal Aunt Breast cancer Ovarian cancer Mental health disorder Maternal Grandmother Diabetes Hypertension Social History Social History Household Members: Significant Other and Children Housing: House Alcohol intake: current Alcohol intake frequency: holidays/special occasions only Patient Tobacco Use Status: Former Tobacco user Tobacco use type: Cigarette e-Cigarette/Vaping Use: Never Used Second Hand Smoke Exposure: No Substance Use Type: Marijuana Advance Directives: No Advance Directives Information Provided: Yes Do you have a plan to hurt others: No Plan service: No Current occupational status: disabled Sexual orientation: Straight/Heterosexual Gender identity: Female Cognitive needs: No Hearing needs: No Vision needs: Yes (Glasses) Physical Exam ED Exam Exam: Appearance: Alert. Oriented X3. No acute distress. Eyes: Pupils equal, round and reactive to light. ENT: Pharynx normal. Neck: Normal inspection. Neck supple. No lymph nodes noted. No crepitus CVS: Normal heart rate and rhythm. Pulses normal. Normal S1 and S2 Respiratory: No respiratory distress. Breath sounds normal. No Wheezing. No rales Abdomen: Soft and nontender. No rigidity. No distention. , positive CVA tenderness in the right Skin: Skin warm and dry. Normal skin color. Normal skin turgor. Extremities: No lower extremity edema. No Lacerations. No Rash Neuro: Oriented X 3. No motor deficit. No sensory deficit. Moving all extremities. No slurred speech. CN 2 through 12 grossly intact Psych: calm, cooperative, normal affect Vital Signs: Vital Signs - 24 hr 06/15/25 23:24 06/16/25 02:45 06/16/25 04:45 Temperature 97.0 F 98.0 F Pulse Rate 75 68 Respiratory Rate 20 20 18 Blood Pressure 146/73 H 135/77 Pulse Oximetry 99 99 Oxygen Delivery Method Room Air Room Air BMI result Body Mass Index 36.5 Course Course Course Narrative: RME, this is a rapid medical exam performed by Nick Torres please refer to primary provider for complete H&P- 34-year-old female presents for evaluation of right lower abdominal pain started this morning. She reports a history of kidney stones and urinary tract infections. Plan for labs and urinalysis. Medications Administered Discontinued Medications Generic Name Dose Route Start Last Admin Trade Name Freq PRN Reason Stop Dose Admin Sodium Chloride 1,000 mls @ 999 mls/hr 06/16/25 02:43 06/16/25 03:58 Ns IVCONT 06/16/25 03:43 Infused .Q1H1M ONE Infusion Ketorolac Tromethamine 30 mg 06/16/25 02:43 06/16/25 02:57 Ketorolac Tromethamine 30 Mg/Ml Vial IVPUSH 06/16/25 02:44 30 mg ONCE ONE Administration Morphine Sulfate 2 mg 06/16/25 04:29 06/16/25 04:45 Morphine Sulfate 4 Mg/Ml Cartridge IVPUSH 06/16/25 04:30 2 mg ONCE ONE Administration Protocol Ondansetron HCl 4 mg 06/16/25 02:43 06/16/25 02:57 Ondansetron Hcl 4 Mg/2 Ml Vial IVPUSH 06/16/25 02:44 4 mg ONCE ONE Administration Medical Decision Making Medical Decision Making [facility] Narrative: My interpretation of labs: No significant abnormality patient's hematology and chemistry. However, there is blood in the urine, no UTI CT scan does not show any ureterolithiasis. However, there puncture stones in the kidneys. I discussed with the patient that it is likely that she passed a kidney stone that is no longer present and the pain that she is feeling is likely a spasm/colick Patient received a dose of ketorolac and morphine. Patient feeling better. No longer nauseous or vomiting. Differential Diagnosis Differential Diagnoses: The differential diagnosis associated with the presentation includes Admission/Observation Consideration of admission/observation: Escalation of care including admission/observation considered (Given patient's level of discomfort, observation was considered) Lab Data MDM Lab Attestation statement: I reviewed the patient's lab results. 06/15/25 23:44 06/15/25 23:44 Labs: Lab Results 06/15/25 Range/Units 23:44 WBC 8.9 (4.8-10.8) X10*3/uL RBC 4.07 L (4.20-5.50) X10*6/uL Hgb 11.2 L (12.0-16.0) g/dl Hct 34.4 L (37.0-47.0) % MCV 84.5 (80.0-98.0) fL MCH 27.5 (27.0-33.0) pg MCHC 32.6 (31.0-35.0) g/dl RDW 14.2 (11.0-16.0) % Plt Count 238 (160-400) X10*3/uL MPV 10.5 (9.4-12.3) fL Immature Gran % (Auto) 0.5 H (0.0-0.4) % Neut % (Auto) 62.6 (45-73) % Lymph % (Auto) 25.3 (20-40) % Ashley % (Auto) 9.0 (2-11) % Eos % (Auto) 2.0 (0-4) % Baso % (Auto) 0.6 (0-2) % Lymph # (Auto) 2.2 (1.2-4.9) X10*3/uL Ashley # (Auto) 0.8 (0.1-1.2) X10*3/uL Eos # (Auto) 0.2 (0.0-0.4) X10*3/uL Baso # (Auto) 0.1 (0.0-0.2) X10*3/uL Abs Immat Gran (auto) 0.04 H (0.00-0.03) X10*3/uL Absolute Neuts (auto) 5.5 (2.0-8.3) x10*3/uL Absolute Nucleated RBC 0.000 (0.0-0.012) X10*3/uL Nucleated RBC % (auto) 0.0 (0.0-0.2) /100WBC Sodium 142 (135-145) mmol/L Potassium 3.9 (3.3-5.1) mmol/L Chloride 111 H (96-108) mmol/L Carbon Dioxide 25 (22-29) mmol/L Anion Gap 10 L (12-20) BUN 13 (9-16) mg/dL Creatinine 0.63 (0.5-1.4) mg/dL Estim Creat Clear Calc 125.3 Estimated GFR > 60 Random Glucose 110 (60-115) mg/dL Calcium 9.4 D (8.4-10.2) mg/dL Total Bilirubin 0.1 (0.0-1.0) mg/dL AST 19 (5-31) U/L ALT 14 (0-31) U/L Alkaline Phosphatase 73 (39-117) U/L Total Protein 7.0 (6.5-8.0) g/dL Albumin 4.1 (3.5-5.0) g/dL Beta HCG, Quant < 2 mIU/mL Urine Color Yellow Urine Appearance Clear Urine pH 7.0 (5.0-9.0) Ur Specific [place] 1.010 (1.005-1.025) Urine Protein Negative (Neg-Trace) mg/dL Urine Glucose (UA) Negative (Negative) mg/dL Urine Ketones Negative (Negative) mg/dL Urine Blood Small (1+) H (Negative) Urine Nitrite Negative (Negative) Ur Leukocyte Esterase Negative (Negative) Urine RBC >20 H (0-2) /HPF Urine WBC 0-5 (0-5) /HPF Ur Squamous Epith Cells 0-2 (0-2) /HPF Urine Bacteria None Seen (None Seen) Hyaline Casts 0-2 (0-2) /LPF Independent Interpretation I performed an independent interpretation of an: CT Scan Radiology Impression Discussion of test interpretation with radiology: I have reviewed the radiologist's reading. Radiologist Impression: The lung bases are clear. The gallbladder is absent. The liver, spleen, adrenal glands and pancreas are unremarkable. There is a 2 mm calculus of the right kidney. No obstructive uropathy. The bladder is obscured by artifact from the hip prostheses. Left adnexal cyst, slightly increased, measuring up to 2.5 cm. Trace free fluid in the cul-de-sac. The uterus is unremarkable. Normal appendix. No bowel obstruction or free air. No pneumatosis. Richar mesentery with several subcentimeter lymph nodes. No acute osseous finding. Impression: Similar to prior, there is a nonobstructing 2 mm right renal calculus. Similar-appearing richar mesentery with subcentimeter lymph nodes. 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 Normal appendix. Slightly increased left adnexal cyst and trace free fluid in the pelvis. Critical Care Time Critical Care Time Critical Care Time: Yes Total Critical Care Time: 35 Attestation: I have personally provided critical care time. Time includes review of lab data, radiology results, discussion with consultants, and monitoring for potential decompensation. Intervention performed as documented. Discharge Plan Discharge Clinical Impression: Renal colic Patient Disposition: Home, Self-Care Instructions: Renal Colic (ED) Additional Instructions: Please follow-up with your primary care physician tomorrow. If you have any worsening or new symptoms, please return to the emergency room or call 911 Prescriptions: New ketorolac 10 mg tablet 10 mg PO Q8H Qty: 10 0RF Rx Instructions: maximum total duration of 5 days from all oral, intranasal, or parenteral formulations ketorolac 10 mg tablet 10 mg PO TID PRN (Reason: pain) Qty: 10 0RF ondansetron 4 mg tablet,disintegrating 4 mg PO Q8H PRN (Reason: nausea and vomiting) Qty: 10 0RF No Action (DME) FRONT-WHEELED WALKER See Rx Instructions .Route .MEDSUPPLY Qty: 1 0RF Rx Instructions: As directed (DME) TUB SEAT with BACK See Rx Instructions .Route .MEDSUPPLY Qty: 1 0RF Rx Instructions: As directed (DME) BEDSIDE COMMODE See Rx Instructions .Route .MEDSUPPLY Qty: 1 0RF Rx Instructions: As directed albuterol sulfate 2.5 mg /3 mL (0.083 %) solution for nebulization 2.5 mg inhalation Q6H PRN (Reason: Shortness Of Breath Or Wheezing) Qty: 180 3RF labetalol 100 mg tablet 100 mg PO BID 90 Days Qty: 180 1RF hydroxyzine HCl 25 mg tablet 25 mg PO DAILY Qty: 90 1RF methocarbamol 500 mg tablet 500 mg PO TID PRN (Reason: muscle spasm) Qty: 30 1RF lorazepam 1 mg tablet 1 mg PO DAILY PRN (Reason: Anxiety) sertraline 100 mg tablet 100 mg PO DAILY (DME) nebulizers [Compact Compressor Nebulizer] Misc See Rx Instructions .Route Qty: 1 0RF Rx Instructions: As directed (DME) lancets [FreeStyle Lancets] 28 gauge misc See Rx Instructions .ROUTE .MEDSUPPLY Qty: 100 1RF Rx Instructions: 4 times/day diclofenac sodium 1 % gel topical meloxicam 15 mg tablet PO DAILY PRN hydrocortisone 2.5 % ointment 1 appl topical BID-TID PRN (Reason: itching) Qty: 454 1RF budesonide-formoterol [Symbicort] 160-4.5 mcg/actuation HFA aerosol inhaler 2 puff inhalation Q12H Qty: 1 3RF pyridoxine (vitamin B6) 100 mg tablet 100 mg PO DAILY 90 Days Qty: 90 1RF epinephrine [EpiPen] 0.3 mg/0.3 mL auto-injector 0.3 mg IM Q10M PRN Rx Instructions: for 2 doses bupropion HCl 75 mg tablet 75 mg PO DAILY bisacodyl [Dulcolax (bisacodyl)] 5 mg tablet,delayed release (DR/EC) 10 mg PO BEDTIME 30 Days Qty: 60 6RF metoclopramide HCl [Reglan] 5 mg tablet 5 mg PO QID Linzess 290 mcg capsule 290 mcg PO DAILY Qty: 30 6RF dexlansoprazole [Dexilant] 60 mg capsule,biphase delayed releas 60 mg PO DAILY 90 Days Qty: 90 2RF Creon 36,000-114,000- 180,000 unit capsule,delayed release(DR/EC) 2 cap PO BID Qty: 120 6RF ibuprofen 600 mg tablet 600 mg PO BID Qty: 60 6RF albuterol sulfate [Ventolin HFA] 90 mcg/actuation HFA aerosol inhaler 2 puff inhalation Q6H PRN (Reason: shortness of breath or wheezing) Qty: 1 3RF cetirizine [Zyrtec] 10 mg tablet 10 mg PO DAILY PRN (Reason: allergy symptoms) Qty: 30 3RF Spiriva Respimat 2.5 mcg/actuation mist 2 puff inhalation DAILY Qty: 4 3RF ipratropium-albuterol 0.5 mg-3 mg(2.5 mg base)/3 mL solution for nebulization 3 ml inhalation Q6H PRN (Reason: wheezing) Qty: 180 0RF prednisone 20 mg tablet 40 mg PO DAILY Qty: 10 0RF doxycycline hyclate 100 mg capsule 100 mg PO BID Qty: 14 0RF Print Language: Tongan
--- OUTSIDE RECORDS SUMMARY | 2025-06-15 23:51 | XMS_ITS | Clinical Summary ---
Author Organization [facility] Address [address] [place] [phone] Phone Care Team Providers Care Material Planner Name Role Phone Jarord Sherman MD Primary Care Provider [phone] Allergies Active Allergy Reactions Criticality Noted Date [...] Department Care Team Description 04/26/2025 Orders Only [facility] [address] [place] [address] Juan Grier MD 04/26/2025 Orders Only [facility] [address] [place] [address] Juan Grier MD Primary osteoarthritis of right knee (Primary Dx) 04/16/2025 2:00 PM EDT Office Visit [facility] [address] [place] [address] Juan Grier MD Primary localized osteoarthrosis of right lower leg (Primary Dx) 04/16/2025 1:13 PM EDT - 04/16/2025 11:59 PM EDT Hospital Encounter [facility] Diagnostic X-ray Imaging, [place] [address] [place] [address] Juan Grier MD Discharge Disposition: Home or Self Care 04/16/2025 1:10 PM EDT - 04/16/2025 1:11 PM EDT Hospital Encounter [facility] Diagnostic X-ray Imaging, [place] [address] [place] [address] Juan Grier MD Discharge Disposition: Home or Self Care 04/16/2025 Orders Only [facility] [address] [place] [address] GiancarloeloyNoreen price Leatha Pain (Primary Dx) 04/05/2025 Orders Only [facility] [address] [place] [address] Juan Grier MD Primary osteoarthritis of left [...] Care Team (Latest Contact Info) Description 06/21/2025 10:40 AM EST Pre-Admission Testing [address] [address] Juan Grier MD [address] [place] [phone] [email or web address] 07/06/2025 Procedure Pass [facility] Periop 6th [address] [place] [phone] 07/06/2025 8:30 AM EST Hospital Encounter [facility] Periop 6th [address] [place] [phone] Juna Grier MD [address] [place] [id number] [email or web address] 07/06/2025 8:30 AM EST - 07/06/2025 10:42 AM EST Surgery [facility] Periop 6th floor [address] [place] [address] Juan Grier MD [address] [place] [phone] [email or web address] 08/11/2025 10:40 AM EST Office Visit [facility] [address] [place] [address] Luann Chand PA-C [address] [place] [address] [email or web address] Scheduled Procedures Name Priority Associated Diagnoses Date/Ti me ARTHROPLASTY UNICONDYLAR KNEE Primary localized osteoarthritis of right knee 07/06/2025 8:30 AM EST ARTHROPLASTY TOTAL KNEE Primary localized osteoarthritis of right knee 07/06/2025 8:30 AM EST MODIFIER ARTHROPLASTY UNICONDYLAR KNEE ALLI Primary localized osteoarthritis of right knee 07/06/2025 8:30 AM EST MODIFIER ARTHROPLASTY TOTAL KNEE ALLI Primary localized osteoarthritis of right knee 07/06/2025 8:30 AM EST Health Maintenance Due Date Last [...] 136 - 145 mmol/L 05/06/2025 2:20 PM [facility] Potassium 3.8 3.4 - 5.1 mmol/L 05/06/2025 2:20 PM [facility] Chloride 107 98 - 107 mmol/L 05/06/2025 2:20 PM [facility] CO2 23 20 - 31 mmol/L 05/06/2025 2:20 PM [facility] Anion Gap 11 3 - 17 mmol/L 05/06/2025 2:20 PM [facility] BUN 10 6 - 23 mg/dL 05/06/2025 2:20 PM [facility] Creatinine 0.60 0.50 - 1.00 mg/dL 05/06/2025 2:20 PM [facility] eGFR 120 >59 mL/min/1.7 3m2 05/06/2025 2:20 PM [facility] Comment:Estimated glomerular filtration rate calculated using the CKD-EPI refit equation. Glucose 143(H) 70 - 99 mg/dL 05/06/2025 2:20 PM [facility] Calcium 8.7 8.5 - 10.5 mg/dL 05/06/2025 2:20 PM [facility] AST 12 <33 U/L 05/06/2025 2:20 PM [facility] ALT 10 <34 U/L 05/06/2025 2:20 PM [facility] Alkaline Phosphatase 73 40 - 130 U/L 05/06/2025 2:20 PM [facility] Bilirubin, Total 0.2 0.0 - 1.2 mg/dL 05/06/2025 2:20 PM [facility] Total Protein 6.7 6.4 - 8.3 g/dL 05/06/2025 2:20 PM [facility] Albumin 3.7 3.5 - 5.2 g/dL 05/06/2025 2:20 PM [facility] Globulin 3.0 1.9 - 4.1 g/dL 05/06/2025 2:20 PM [facility] Blood (Blood) Venipuncture / Unknown 05/06/2025 12:22 PM EST 05/06/2025 12:30 PM EST us Juan Grier MD LAB BLOOD BKR ORDERABLES Final R esult [address] [address] * (ABNORMAL) CBC and Differential (05/06/2025 12:22 PM EST) WBC 6.59 4.00 - 11.00 K/uL 05/06/2025 12:42 PM [facility] RBC 3.80(L) 4.00 - 5.20 M/uL 05/06/2025 12:42 PM [facility] Hemoglobin 10.4(L) 12.0 - 16.0 g/dL 05/06/2025 12:42 PM [facility] Hematocrit 33.2(L) 36.0 - 46.0 % 05/06/2025 12:42 PM [facility] MCV 87.4 80.0 - 100.0 fL 05/06/2025 12:42 PM [facility] MCH 27.4 27.0 - 31.0 pg 05/06/2025 12:42 PM [facility] MCHC 31.3(L) 32.0 - 36.0 g/dL 05/06/2025 12:42 PM [facility] MPV 10.6 8.4 - 12.0 fL 05/06/2025 12:42 PM [facility] RDW-CV 13.6 11.5 - 14.5 % 05/06/2025 12:42 PM [facility] PLT 263 150 - 450 K/uL 05/06/2025 12:42 PM [facility] Neutrophils 63.9 % 05/06/2025 12:42 PM [facility] Lymphocytes 24.4 % 05/06/2025 12:42 PM [facility] Monocytes 8.3 % 05/06/2025 12:42 PM [facility] Eosinophils 2.3 % 05/06/2025 12:42 PM [facility] Basophils 0.9 % 05/06/2025 12:42 PM [facility] Imm Grans 0.2 % 05/06/2025 12:42 PM [facility] NRBC 0.0 <=0.0 /100 WBCs 05/06/2025 12:42 PM [facility] Absolute Neutrophils 4.21 1.92 - 7.60 K/uL 05/06/2025 12:42 PM [facility] Absolute Lymphocytes 1.61 0.72 - 4.10 K/uL 05/06/2025 12:42 PM [facility] Absolute Monocytes 0.55 0.16 - 1.10 K/uL 05/06/2025 12:42 PM [facility] Absolute Eosinophils 0.15 0.00 - 0.50 K/uL 05/06/2025 12:42 PM [facility] Absolute Basophils 0.06 0.00 - 0.15 K/uL 05/06/2025 12:42 PM [facility] Absolute Imm Grans 0.01 0.00 - 0.09 K/uL 05/06/2025 12:42 PM [facility] Absolute NRBC 0.00 <=0.00 K cells/uL 05/06/2025 12:42 PM [facility] Absolute Neutrophils 4.21 1.92 - 7.60 K/uL 05/06/2025 12:42 PM [facility] Comment:Automated cell count . Manual ANC may differ if performed. Diff Type Auto 05/06/2025 12:42 PM [facility] Blood (Blood) Venipuncture / Unknown 05/06/2025 12:22 PM EST 05/06/2025 12:30 PM EST us Juan Grier MD LAB BLOOD BKR ORDERABLES Final R esult Performing Organization Address [facility] Co de Phone Number [address] [address] * (ABNORMAL) 25-OH Vitamin D (05/06/2025 12:22 PM EST) 25-OH Vitamin D, Total 15(L) 20 - 50 ng/mL 05/06/2025 2:33 PM [facility] Comment: Severe deficiency: <10 ng/mL Mild to moderate deficiency: 10-19 ng/mL Optimum levels: 20-50 ng/mL Increased risk of hypercalciuria: 51-80 ng/mL Possible toxicity: >80 ng/mL Blood (Blood) Venipuncture / Unknown 05/06/2025 12:22 PM EST 05/06/2025 12:30 PM EST us Juan Grier MD LAB BLOOD BKR ORDERABLES Final R esult Performing Organization Address City/[facility]/ZIP Co de Phone Number [address] [address] * PT-INR (05/06/2025 12:22 PM EST) PT 12.9 10.0 - 13.0 sec 05/06/2025 1:07 PM [facility] INR 1.0 0.9 - 1.1 05/06/2025 1:07 PM [facility] Comment:Therapeutic Range 2. 0 - 3.5 Blood (Blood) Venipuncture / Unknown 05/06/2025 12:22 PM EST 05/06/2025 12:30 PM EST Juan Grier MD LAB BLOOD BKR ORDERABLES Final R esult Performing Organization Address [facility] Co de Phone Number [address] [address] * Hemoglobin A1c (05/06/2025 12:22 PM EST) Hemoglobin A1c 4.9 4.3 - 5.6 % 05/06/2025 1:29 PM [facility] Calculated Mean Blood Glucose 94 mg/dL 05/06/2025 1:29 PM [facility] Comment:There is no [facility] normal range for the Estimated Average [...] ORDERABLES Final R esult Performing Organization Address [facility] Co de Phone Number [address] [address] * XR KNEE 4 OR MORE VIEWS [...] right side. Degenerative changes of bothknees. Juan Greir MD IMG XR SKELETAL SURVEY Final Res ult from Last 3 Months Additional Health Concerns Active Problems Noted Date Diagnosed Date Autogenerated Problem 04/26/2025 Insurance [facility] [place] [address] [place] [address] [place] [address] [place] [address] [place] [address] [place] [address] A[employer] Care Teams Material Planner Relationship Specialty Start Date End Date Jarrod Sherman MD [address] [place] [address] [place] [address] PCP - General Internal Medicine 02/18/25 Additional Source Comments The information contained in this document represents components of the legal health record. It is not the complete legal health record.[facility]
[2025-06-15 23:52] LABS: MANUAL DIFF FLAG NO
[2025-06-15 23:53] LABS: Hematocrit 34.4 % (37.0-47.0); Hemoglobin 11.2 g/dl (12.0-16.0); Imm Gran Abs Auto 0.04 X10*3/uL (0.00-0.03); Imm Gran Pct Auto 0.5 % (0.0-0.4); Lymphocytes Absolute Auto 2.2 X10*3/uL (1.2-4.9); Mean Corpuscular HGB Conc 32.6 g/dl (31.0-35.0); Mean Corpuscular Hemoglobin 27.5 pg (27.0-33.0); Mean Corpuscular Volume 84.5 fL (80.0-98.0); NRBC Abs Auto 0.000 X10*3/uL (0.0-0.012); NRBC Pct Auto 0.0 /100WBC (0.0-0.2); Platelet Count 238 X10*3/uL (160-400); Red Blood Count 4.07 X10*6/uL (4.20-5.50); White Blood Count 8.9 X10*3/uL (4.8-10.8)
[2025-06-15 23:54] LABS: Appearance Urine Clear; Glucose Urine UA Negative (Negative); PH 7.0 (5.0-9.0); Specific Gravity - Urine 1.010 (1.005-1.025); UMIC TRIGGER UACC YES
[2025-06-16 00:08] LABS: Alanine Aminotransferase 14 U/L (0-31); Albumin Level 4.1 g/dL (3.5-5.0); Alkaline Phosphatase 73 U/L (39-117); Anion Gap 10 (12-20); Aspartate Amino Transferase 19 U/L (5-31); Blood Urea Nitrogen 13 mg/dL (9-16); Calcium 9.4 mg/dL (8.4-10.2); Carbon Dioxide 25 mmol/L (22-29); Chloride 111 mmol/L (96-108); Creatinine Clr Calc Pharmacy 125.3; Estimated Glomerular Filt Rate > 60; Potassium 3.9 mmol/L (3.3-5.1); Sodium 142 mmol/L (135-145); Total Protein 7.0 g/dL (6.5-8.0)
[2025-06-16 02:45] VITALS: BP 135/77; PULSE 68; RESP 20; TEMP 36.7; O2SAT 99
[2025-06-16 04:45] VITALS: RESP 18
[2025-06-16 05:32] VITALS: BP 148/67; PULSE 62; RESP 18; TEMP 36.8; O2SAT 98
== END 2025-06-16 05:43 | disposition home or self-care (01) ==
LOC: HO.ED 06-16 02:37 → HO.EDOVER 06-16 03:25 → HO.ED 06-16 05:26
PROVIDERS: Physician Assistant; Emergency Provider Emergency Medicine; PCP Internal Medicine
DX: N20.0 Calculus of kidney (principal); R10.A1 Flank pain, right side; Z87.442 Personal history of urinary calculi; Z79.899 Other long term (current) drug therapy; J44.9 Chronic obstructive pulmonary disease, unspecified; I10 Essential (primary) hypertension; Z87.891 Personal history of nicotine dependence
CPT/HCPCS: 36415; 74176; 80053; 81001; 84702; 85025; 96361; 96374; 96375; 99284; J1885; J2270; J2405

== ENCOUNTER → 2025-06-16 02:43 | Outpatient (BNV) | payer OTHER, SELFPAY | PROVIDERS: Emergency Provider Emergency Medicine; PCP Internal Medicine; Visit Provider Radiology Vascular & Interventional Radiology | DX: N20.0 Calculus of kidney (principal); R10.A1 Flank pain, right side | CPT/HCPCS: 74176 ==